=== PATIENT | female | born 1980 | race Caucasian/White ===

== ENCOUNTER 2020-09-03 19:04 | Emergency (ER) | payer OTHER, SELFPAY ==
[2020-09-03 20:08] LABS: Absolute Lymphocytes (CBC) 3.9 K/uL (0.7-4.9); Basophils % 0.5 % (0-1.3); Hematocrit 38.7 % (36.0-45.0); Lymphocytes % 34.5 % (15.3-44.8); MPV 7.5 fL (7.6-11.3); RBC Red Blood Cell Count 4.34 M/uL (3.86-4.86)
[2020-09-03 20:11] LABS: Protime INR 0.91
[2020-09-03 20:21] LABS: ALT/SGPT 24 U/L (12-78); AST/SGOT 18 U/L (15-37); Albumin 3.4 g/dL (3.4-5.0); Alkaline Phosphatase 79 U/L (45-117); BUN Blood Urea Nitrogen 4 mg/dL (7-18); Bicarbonate 26 mmol/L (21-32); Bilirubin Direct < 0.1 mg/dL (0-0.2); Bilirubin Total 0.2 mg/dL (0.2-1.0); Creatine Phosphokinase 85 U/L (26-192); Glucose Level 92 mg/dL (74-106); Lipase 112 U/L (73-393); Magnesium 2.2 mg/dL (1.8-2.4); Potassium 3.2 mmol/L (3.5-5.1); Protein, Total 6.6 g/dL (6.4-8.2); Sodium Level 139 mmol/L (136-145); Troponin (Emerg Dept Use Only) < 0.02 ng/mL (0.0-0.045)
[2020-09-03 21:23] LABS: Urine Blood 3+ (NEG); Urine Glucose NEGATIVE (NEG); Urine Protein NEGATIVE (NEG); Urine Specific Gravity 1.015 (1.005-1.030); Urine pH 7.5 (5.0-7.0)
[2020-09-03 21:31] LABS: Barbiturates NEGATIVE (NEGATIVE); Benzodiazepines NEGATIVE (NEGATIVE); Cocaine NEGATIVE (NEGATIVE); METHAMPHETAM NEGATIVE (NEGATIVE); Methadone NEGATIVE (NEGATIVE); Opiates NEGATIVE (NEGATIVE); Phencyclidine NEGATIVE (NEGATIVE); THC Cannibis NEGATIVE (NEGATIVE)
--- NOTE | 2020-09-03 21:33 | RAD REPORT ---
EXAM DESCRIPTION: CT - Head Brain Wo Cont - 09/03/2020 9:12 pm CLINICAL HISTORY: SYNCOPE Headache, drowsiness, syncope COMPARISON: HEAD BRAIN W O CONTRAST dated 08/11/2008 TECHNIQUE: All CT scans are performed using dose optimization technique as appropriate and may inclu de automated exposure control or mA/KV adjustment according to patient size. FINDINGS: No intracranial hemorrhage, hydrocephalus or extra-axial fluid collection.No areas of brai n edema or evidence of midline shift. The paranasal sinuses and mastoids are clear. The calvarium is intact. IMPRESSION: No acute intracranial abnormality.
[2020-09-03] MEDS ORDERED: POTASSIUM 25 MEQ EFFERV TAB ONE (21:47)
[2020-09-03] MEDS ORDERED: NA CHLORIDE 0.9% 1,000 ML ONE (21:47)
--- NOTE | 2020-09-03 21:55 | RAD REPORT ---
EXAM DESCRIPTION: RAD - Chest Single View - 09/03/2020 9:25 pm CLINICAL HISTORY: syncope Chest pain. COMPARISON: CHEST SINGLE VIEW dated 01/12/2014; ABDOMEN 1 VIEW KUB dated 01/28/2009 FINDINGS: Portable technique limits examination quality. The lungs are grossly clear. The heart is normal in size. No displaced fractures. IMPRESSION: No acute intrathoracic process suspected.
--- NOTE | 2020-09-03 23:36 | EDPHYS ---
Physician Documentation [facility] Name: Gabrielle Plata Age: 40 yrs Sex: Female : 1980 Arrival Date: 09/03/2020 Time: 19:24 Bed 18 Private MD: ED Physician Armond Boles HPI: 09/03 20:14 This 40 yrs old Female presents to ER via EMS with complaints of Syncope. mh7 20:15 The patient has experienced syncope, collapsed. Onset: The symptoms/episode mh7 began/occurred today. Duration: This was a single episode, that lasted an unknown period of time. Context: the episode(s) was witnessed, by no one, occurred on a street or driveway, occurred while the patient was standing, Just prior to the episode the patient experienced no apparent symptoms. Associated injury: The patient did not suffer any apparent associated injury. Associated signs and symptoms: Pertinent positives: nausea, vomiting, Pertinent negatives: abdominal pain, agitation, ataxia, blurred vision, chest pain, combativeness, confusion, diaphoresis, diarrhea, dizziness, headache, lightheadedness, numbness, palpitations, not seizure, shortness of breath, tingling, vertigo, weakness. Current symptoms: Currently, the patient is not experiencing any symptoms, the patient feels back to baseline. 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 - Social history:: Smoking status: Patient reports the use of cigarette tobacco products, denies chronic smoking, but will smoke occasionally. ROS: 20:15 Constitutional: Negative for fever, chills, and weight loss, Eyes: Negative for injury, mh7 pain, redness, and discharge, ENT: Negative for injury, pain, and discharge, Neck: Negative for injury, pain, and swelling, Cardiovascular: Negative for chest pain, palpitations, and edema, Respiratory: Negative for shortness of breath, cough, wheezing, and pleuritic chest pain, Back: Negative for injury and pain, : Negative for injury, bleeding, discharge, and swelling, MS/Extremity: Negative for injury and deformity, Skin: Negative for injury, rash, and discoloration, Psych: Negative for depression, anxiety, suicide ideation, homicidal ideation, and hallucinations, Allergy/Immunology: Negative for hives, rash, and allergies, Endocrine: Negative for neck swelling, polydipsia, polyuria, polyphagia, and marked weight changes, Hematologic/Lymphatic: Negative for swollen nodes, abnormal bleeding, and unusual bruising. Exam: 20:15 Constitutional: This is a well developed, well nourished patient who is awake, alert, mh7 and in no acute distress. Head/Face: Normocephalic, atraumatic. Eyes: Pupils equal round and reactive to light, extra-ocular motions intact. Lids and lashes normal. Conjunctiva and sclera are non-icteric and not injected. Cornea within normal limits. Periorbital areas with no swelling, redness, or edema. ENT: Nares patent. No nasal discharge, no septal abnormalities noted. Tympanic membranes are normal and external auditory canals are clear. Oropharynx with no redness, swelling, or masses, exudates, or evidence of obstruction, uvula midline. Mucous membranes moist. Neck: Trachea midline, no thyromegaly or masses palpated, and no cervical lymphadenopathy. Supple, full range of motion without nuchal rigidity, or vertebral point tenderness. No Meningismus. Chest/axilla: Normal chest wall appearance and motion. Nontender with no deformity. No lesions are appreciated. Cardiovascular: Regular rate and rhythm with a normal S1 and S2. No gallops, murmurs, or rubs. Normal PMI, no JVD. No pulse deficits. Respiratory: Lungs have equal breath sounds bilaterally, clear to auscultation and percussion. No rales, rhonchi or wheezes noted. No increased work of breathing, no retractions or nasal flaring. Abdomen/GI: Soft, non-tender, with normal bowel sounds. No distension or tympany. No guarding or rebound. No evidence of tenderness throughout. Back: No spinal tenderness. No costovertebral tenderness. Full range of motion. Skin: Warm, dry with normal turgor. Normal color with no rashes, no lesions, and no evidence of cellulitis. MS/ Extremity: Pulses equal, no cyanosis. Neurovascular intact. Full, normal range of motion. Neuro: Awake and alert, GCS 15, oriented to person, place, time, and situation. Cranial nerves II-XII grossly intact. Motor strength 5/5 in all extremities. Sensory grossly intact. Cerebellar exam normal. Normal gait. Psych: Awake, alert, with orientation to person, place and time. Behavior, mood, and affect are within normal limits. Vital Signs: 19:38 BP 129 / 111; Pulse 72; Resp 18; Pulse Ox 95% on R/A; ll2 19:40 Temp 98.3; ea 20:00 BP 139 / 121; Pulse 101; Resp 18; Pulse Ox 97% on R/A; ll2 20:59 BP 112 / 92; Pulse 83; Resp 18; Pulse Ox 98% on R/A; ll2 21:00 BP 116 / 99; Pulse 79; Resp 16; Pulse Ox 99% on R/A; ll2 22:00 BP 103 / 86; Pulse 81; Resp 17; Pulse Ox 100% on R/A; ll2 23:00 BP 100 / 67; Pulse 78; Resp 18; Pulse Ox 95% on R/A; ll2 MDM: 20:14 Patient medically screened. [facility] 23:33 Differential Diagnosis: cardiac arrhythmia, drug effect, emotional response, idiopathic mh7 syncope, , seizure, transient ischemic attack, vasovagal episode. Data reviewed: vital signs, nurses notes, EMS record, lab test result(s), cardiac enzymes, CBC, drug level(s), alcohol, electrolytes, urinalysis, urine drug screen, EKG, radiologic studies, CT scan, plain films. Data interpreted: Pulse oximetry: on room air is 95 %. Interpretation: normal. Counseling: I had a detailed discussion with the patient and/or guardian regarding: the historical points, exam findings, and any diagnostic results supporting the discharge/admit diagnosis, lab results, radiology results, the need for outpatient follow up, to return to the emergency department if symptoms worsen or persist or if there are any questions or concerns that arise at home. Response to treatment: the patient's symptoms have resolved after treatment, the patient's blood pressure is in an acceptable range, mental status has returned to baseline, the patient no longer shows bradycardia, the patient is not short of breath, the patient is not tachycardic, the patient's pain is gone, the patient's temperature has normalized. 09/03 19:44 Order name: Basic Metabolic Panel; Complete Time: 21:31 ea 09/03 19:44 Order name: CBC with Diff; Complete Time: 20:20 09/03 19:44 Order name: Ckmb; Complete Time: 21:31 09/03 19:44 Order name: CPK; Complete Time: 21:31 09/03 19:44 Order name: Hepatic Function; Complete Time: 21:31 09/03 19:44 Order name: Lipase; Complete Time: 21:31 09/03 19:44 Order name: Magnesium; Complete Time: 21:31 09/03 19:44 Order name: Protime (+inr); Complete Time: 20:20 09/03 19:44 Order name: Ptt, Activated; Complete Time: 20:20 09/03 19:44 Order name: Troponin (emerg Dept Use Only); Complete Time: 21:31 09/03 20:19 Order name: UDS; Complete Time: 21:33 [facility] 09/03 20:19 Order name: ETOH Level; Complete Time: 21:31 [facility] 09/03 21:13 Order name: Urine Dipstick--Ancillary (enter results) ri09/03 21:13 Order name: Urine --Ancillary (enter results) [facility] 09/03 19:44 Order name: EKG; Complete Time: 19:45 09/03 19:44 Order name: Cardiac monitoring; Complete Time: 19:44 09/03 19:44 Order name: EKG - Nurse/Tech; Complete Time: 19:44 09/03 19:44 Order name: IV Saline Lock; Complete Time: 19:44 09/03 19:44 Order name: Labs collected and sent; Complete Time: 19:44 09/03 19:44 Order name: NPO; Complete Time: 19:44 09/03 19:44 Order name: O2 Per Protocol; Complete Time: 19:44 09/03 19:44 Order name: O2 Sat Monitoring; Complete Time: 19:44 09/03 19:44 Order name: Urine Dipstick-Ancillary (obtain specimen); Complete Time: 21:10 09/03 20:12 Order name: Chest Single View XRAY; Complete Time: 22:05 [facility] 09/03 20:19 Order name: CT Head Brain wo Cont; Complete Time: 22:05 [facility] 09/03 20:20 Order name: Urine Test (obtain specimen); Complete Time: 21:10 [facility] 09/03 21:13 Order name: Urine Dipstick-Ancillary; Complete Time: : [facility] 09/03 21:13 Order name: Urine --Ancillary; Complete Time: : EDVT Administered Medications: 22:01 Drug: NS 0.9% 1000 ml Route: IV; Rate: 1000 ml; Site: right forearm; ll2 22:02 Drug: K-Lyte Effervescent Tablet 25 mEq Route: PO; ll2 23:33 Follow up: Response: No adverse reaction ll2 Point of Care Testing: Blood Glucose: 19:15 Blood Glucose: 111 mg/dL; ll2 Ranges: Critical Glucose Levels:Adult <50 mg/dl or >400 mg/dl <40 mg/dl or >180 mg/dl Disposition: 09/03/20 23:36 Discharged to Home. Impression: Syncope, Alcohol Intoxication. - Condition is Stable. - Discharge Instructions: Alcohol Intoxication, [id number], Syncope, [id number]. - Work release form, Medication Reconciliation Form, Thank You Letter, Antibiotic Education, Prescription Opioid Use form. - Follow up: Private Physician; When: 1 - 2 days; Reason: Worsening of condition, Recheck today's complaints, Continuance of care, Re-evaluation by your physician. - Problem is new. - Symptoms have improved. Signatures: Dispatcher [employer] [facility] Allison Cardozo RN RN ea Linscombe, Lacie, RN RN Armond Chacko MD MD 7 Corrections: (The following items were deleted from the chart) 23:45 19:38 Allergies: Demerol; ll2 ll2 23:45 19:38 Allergies: Sulfa (Sulfonamide Antibiotics); ll2 ll2 23:48 23:36 09/03/2020 23:36 Discharged to Home. Impression: Syncope; Alcohol Intoxication. ll2 Condition is Stable. Forms are Medication Reconciliation Form, Thank You Letter, Antibiotic Education, Prescription Opioid Use. Follow up: Private Physician; When: 1 - 2 days; Reason: Worsening of condition, Recheck today's complaints, Continuance of care, Re-evaluation by your physician. Problem is new. Symptoms have improved. [facility]
--- NOTE | 2020-09-03 23:36 | ER ---
Nurse's Notes [facility] Name: Gabrielle Plata Age: 40 yrs Sex: Female : 1980 Arrival Date: 09/03/2020 Time: 19:24 Bed 18 Private MD: Diagnosis: Syncope;Alcohol Intoxication Presentation: 09/03 19:39 Chief complaint: EMS states: found pt unconscious in [employer] parking lot, she was ll2 on her way to work at [employer], pt woken with sternal rub and responded to pain, pt was nauseated in field and vomited a few times in route to ED FSBS was 111, 4 of zofran was given in field. 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 Coronavirus screen: Client denies travel out of the [place] in the last 14 days. At this time, the client does not indicate any symptoms associated with coronavirus-19. Ebola Screen: Patient negative for fever greater than or equal to 101.5 degrees Fahrenheit, and additional compatible Ebola Virus Disease symptoms. Initial Sepsis Screen: Does the patient meet any 2 criteria? No. Patient's initial sepsis screen is negative. Does the patient have a suspected source of infection? No. Patient's initial sepsis screen is negative. Risk Assessment: Do you want to hurt yourself or someone else? Patient reports no desire to harm self or others. Onset of symptoms was September 03, 2020. 19:39 Acuity: CATHIE 3 ll2 19:39 Method Of Arrival: EMS: [facility] ll2 Triage Assessment: 23:32 General: Appears in no apparent distress. Behavior is calm, cooperative, appropriate ll2 for age. Pain: Denies pain. 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 - Social history:: Smoking status: Patient reports the use of cigarette tobacco products, denies chronic smoking, but will smoke occasionally. Screenin:38 Abuse screen: Denies threats or abuse. Nutritional screening: No deficits noted. ll2 Tuberculosis screening: No symptoms or risk factors identified. Fall Risk IV access (20 points). Ambulatory Aid- None/Bed Rest/Nurse Assist (0 pts). Gait- Normal/Bed Rest/Wheelchair (0 pts) Mental Status- Oriented to own ability (0 pts). Total Zuleta Fall Scale indicates Low Risk Score (25-44 pts). Assessment: 19:28 General: Appears in no apparent distress. Behavior is calm, cooperative, appropriate ll2 for age. Pain: Denies pain. Neuro: Level of Consciousness is awake, alert, obeys commands, Oriented to person, place, time, situation. Cardiovascular: Rhythm is sinus rhythm. Respiratory: Airway is patent Respiratory effort is even, unlabored, Respiratory pattern is regular, symmetrical. GI: No signs and/or symptoms were reported involving the gastrointestinal system. : No signs and/or symptoms were reported regarding the genitourinary system. EENT:. EENT: No signs and/or symptoms were reported regarding the EENT system. Derm: Skin is intact, is healthy with good turgor, Skin is dry, Skin is pink, warm \T\ dry. Skin temperature is warm. Musculoskeletal: Circulation, motion, and sensation intact. Range of motion: intact in all extremities. 19:30 Reassessment: EMS states, pt was found unconscious after a syncope episode in [place] [facility] parking lot while she was on her way to work. She was aroused with the sternal rub and responded to pain, FSBS 111 in field. Stated she was nauseated in field and vomited a few times in route. States pt does have unspecified cancer in the reproductive system. 20:56 Reassessment: Patient and/or family updated on plan of care and expected duration. Pain ea level reassessed. Patient is alert, oriented x 3, equal unlabored respirations, skin warm/dry/pink. 22:01 Reassessment: pt pulled IV out of RT AC, 22G reinserted to RT forearm. ll2 Vital Signs: 19:38 BP 129 / 111; Pulse 72; Resp 18; Pulse Ox 95% on R/A; ll2 19:40 Temp 98.3; ea 20:00 BP 139 / 121; Pulse 101; Resp 18; Pulse Ox 97% on R/A; ll2 20:59 BP 112 / 92; Pulse 83; Resp 18; Pulse Ox 98% on R/A; ll2 21:00 BP 116 / 99; Pulse 79; Resp 16; Pulse Ox 99% on R/A; ll2 22:00 BP 103 / 86; Pulse 81; Resp 17; Pulse Ox 100% on R/A; ll2 23:00 BP 100 / 67; Pulse 78; Resp 18; Pulse Ox 95% on R/A; ll2 ED Course: 19:24 Patient arrived in ED. antony 19:28 Dora Everett, RN is Primary Nurse. 2 19:29 Armond Boles MD is Attending Physician. 7 19:39 Patient has correct armband on for positive identification. Placed in gown. Bed in low ll2 position. Call light in reach. Side rails up X2. 19:42 Triage completed. ll2 20:56 Arm band placed on Patient placed in an exam room, on a stretcher, on recreational therapist, ea on pulse oximetry. 21:12 CT Head Brain wo Cont In Process Unspecified. EDMS 21:26 Chest Single View XRAY In Process Unspecified. EDMS 22:02 Urine --Ancillary (enter results) Sent. ll2 22:03 Urine Dipstick--Ancillary (enter results) Sent. ll2 23:44 No provider procedures requiring assistance completed. IV discontinued, intact, ll2 bleeding controlled, No redness/swelling at site. Pressure dressing applied. Administered Medications: 22:01 Drug: NS 0.9% 1000 ml Route: IV; Rate: 1000 ml; Site: right forearm; ll2 22:02 Drug: K-Lyte Effervescent Tablet 25 mEq Route: PO; ll2 23:33 Follow up: Response: No adverse reaction 2 Point of Care Testing: Blood Glucose: 19:15 Blood Glucose: 111 mg/dL; ll2 Ranges: Outcome: 23:36 Discharge ordered by . 7 23:45 Discharged to home ambulatory. ll2 23:45 Condition: stable 23:45 Discharge instructions given to patient, Instructed on discharge instructions, follow up and referral plans. Demonstrated understanding of instructions, follow-up care. 23:48 Patient left the ED. ll2 Signatures: Dispatcher [employer] EDMS Allison Cardozo RN RN ea Linscombe, Lacie, SITA BUCKENR 2 Armond Boles MD MD [facility] Corrections: (The following items were deleted from the chart) 19:33 19:30 Reassessment: EMS states, pt was found unconscious after a sycope episode in [facility] [place] parking lot while she was on her way to work. She was aroused with the sternal rub and responded to pain, FSBS [facility] 19:38 Allergies: Demerol; [place] [id number] 19:38 Allergies: Sulfa (Sulfonamide Antibiotics); [place] [phone]
[2020-09-04 00:38] VITALS: TEMP 98.3
[2020-09-04 00:45] VITALS: BP 100/67; O2SAT 95
--- OUTSIDE RECORDS SUMMARY | 2020-09-07 23:34 | XMS REPORT | Summary of Care ---
:1980 Author Organization [facility] Address [address] [place], [place] [address] Care Team Providers Name Role Phone Anish Ureña MD Primary Care Provider Reason for Visit Reason Comments Results Encounter Details Date Type Department Care Team Description 06/14/2020 Telephone ACCESS [facility]ENTER Kaylah Shi RN Results [address] [phone] [place] [id number] Allergies Active Allergy Reactions Severity Noted Date Comments Codeine Shortness of Breath 09/25/2016 Meperidine Hcl Rash 09/25/2016 Marijuana/Cannabinoid Anaphylaxis High 01/06/2018 Sulfa (Sulfonamide Antibiotics) Rash High 7 Tramadol Nausea and/or Vomiting 09/25/2016 documented as of this encounter (statuses as of 06/14/2020) Medications No known medicationsdocumented as of this encounter (statuses as of 06/14/2020) Active Problems Problem Noted Date Anxiety 04/07/2020 Chest pain 03/22/2020 Crohn disease 12/02/2007 Overview: involving small and large intesting, bio psy confirmed. Gets colonoscopy Q 6-12 months. no flares since 2014, off meds History of recurrent miscarriages Overview: 10 spontaneous abortions prior to 10 wee ks, D&C in 2005 documented as of this encounter (statuses as of 06/14/2020) Resolved Problems Problem Noted Date Resolved Date Encounter for tubal ligation 01/06/2018 01/06/2018 Premature rupture of membranes 09/24/2017 8 Premature labor 09/24/2017 04/07/2020 Liveborn by vaginal delivery 09/24/201704/2018 36 weeks gestation of 09/23/2017 01/06/20 18 Crohn's disease without complication 09/16/2017 34 weeks gestation of 09/14/2017 04/07/20 20 labor 09/14/2017 04/07/2020 Hematuria 08/01/2017 01/06/2018 History of renal calculi 08/01/2017 01/06/2018 Anemia affecting 08/01/2017 01/06/2018 27 weeks gestation of 07/31/2017 01/06/20 18 Pyelonephritis affecting in second trimester 07/3101/06/2018 Pyelonephritis complicating , antepartum 07/31/2017 07/31/2017 uterine contractions in second trimester, antepartum 07/31/2017 01/06/2018 Vomiting 09/25/2016 07/31/2017 Colitis 09/25/2016 07/31/2017 documented as of this encounter (statuses as of 06/14/2020) Immunizations Name Administration Dates Next Due Influenza Virus Vaccine Quad IM 3+ YRS 09/26/2017 documented as of this encounter Social History Tobacco Use Types Packs/Day Years Used Date Current Some Day Smoker Cigarettes Smokeless Tobacco: Never Used Comments: Occasional Smoker Alcohol Use Drinks/Week oz/Week Comments Yes Social Drinker Sex Assigned at Date Recorded Not on file Job Start Date Occupation Industry Not on file Not on file Not on file Travel History Travel Start Travel End No recent travel history available. COVID-19 Exposure Response Date Recorded In the last month, have you been in contact with No / Unsure 06/11/2020 10:08 PM CDT someone who was confirmed or suspected to have Coronavirus / COVID-19? documented as of this encounter Last Filed Vital Signs Not on filedocumented in this encounter Plan of Treatment Health Maintenance Due Date Last Done Comments PNEUMOCOCCAL 0-64 YEARS COMBINED SERIES (1 of 1 - 1984 PPSV23) DTaP,Tdap,and Td Vaccines (1 - Tdap) 1989 Depression Screening 1990 PAP SMEAR 1999 Breast Cancer Screening (MAMMOGRAM) 2018 INFLUENZA VACCINE (#1) 2020 09/26/2017 documented as of this encounter Implants Implanted Type Area Physical Therapy Professor Device Shelf Model / Identifier Expiration Serial / Date Lot Fallope Ring Band, Gyrus #[id number] - Sfrb-30 Band N/A: Fallopian Gyrus 09/16/2019 FRB-30 / Implanted: Qty: 1 on 01/06/2018 by Kalen Gutierrez MD at [facility] tube F RB-30 / [id number] documented as of this encounter Results Not on filedocumented in this encounter Additional Health Concerns Infection Onset Date Last Indicated Resolved Time COVID-19 Rule Out 06/12/2020 06/12/2020 06/14/2020 12: 08 AM CDT documented as of this encounter
--- OUTSIDE RECORDS SUMMARY | 2020-09-07 23:34 | XMS REPORT | Summary of Care ---
:1980 Author Organization [facility] - [facility] Address [address] [place] [address] Care Team Providers Name Role Phone Anish Ureña MD Primary Care Provider Reason for Referral Radiology Services (STAT) Status Reason Specialty Diagnoses / Referred By Referred To Procedures Contact Contact New Request Diagnostic Diagnoses Chest pain, unspecified type Andrew Limon, Radiology Procedures XR CHEST 1 VW [employer] [address] [phone] Reason for Visit Reason Comments Chest Pain Auth/Cert Status Reason Specialty Diagnoses / Referred By Referred To Procedures Contact Contact Emergency Medicine [facility] Dept [address] [address] Fax: Encounter Details Date Type Department Care Team Description 06/12/2020 Emergency [facility]-Emergency Andrew Limon, [employer]PER Chest pain, Department [address] [facility] unspecified type [address] [place], [place] (Primary Dx) [address] [id number] [place] [id number] Allergies Active Allergy Reactions Severity Noted Date Comments Codeine Shortness of Breath 09/25/2016 Meperidine Hcl Rash 09/25/2016 Marijuana/Cannabinoid Anaphylaxis High 01/06/2018 Sulfa (Sulfonamide Antibiotics) Rash High 7 Tramadol Nausea and/or Vomiting 09/25/2016 documented as of this encounter (statuses as of 06/12/2020) Medications No known medicationsdocumented as of this encounter (statuses as of 06/12/2020) Active Problems Problem Noted Date Anxiety 04/07/2020 Chest pain 03/22/2020 Crohn disease 12/02/2007 Overview: involving small and large intesting, bio psy confirmed. Gets colonoscopy Q 6-12 months. no flares since 2014, off meds History of recurrent miscarriages Overview: 10 spontaneous abortions prior to 10 wee ks, D&C in 2005 documented as of this encounter (statuses as of 06/12/2020) Resolved Problems Problem Noted Date Resolved Date [...] as of this encounter (statuses as of 06/12/2020) Immunizations Name Administration Dates Next Due Influenza [...] filedocumented in this encounter Plan of Treatment Name Type Priority Associated Diagnoses Order S chedule CBC WITH DIFF LAB Routine Chest pain, ONCE for 1 unspecified type Occurrences starting 06/12/2020 unti l 06/12/2020 COMP. METABOLIC PANEL LAB Routine Chest pain, ONCE f or 1 (25975) unspecified type Occurrences starting 06/12/2020 unti l 06/12/2020 EKG-12 LEAD ROUTINE HEART STATION MATTHEW ONCE fo r 1 Occurrences sta rting 06/12/2020 unti l 06/12/2020 MAGNESIUM LAB Routine Chest pain, ONCE for 1 unspecified type Occurrences starting 06/12/2020 unti l 06/12/2020 POCT TEST LAB MATTHEW Chest pain, ONCE for 1 unspecified type Occurrences starting 06/12/2020 unti l 06/12/2020 TEST, SERUM LAB Routine Chest pain, ONCE f or 1 unspecified type Occurrences starting 06/12/2020 unti l 06/12/2020 TROPONIN I LAB Routine Chest pain, ONCE for 1 unspecified type Occurrences starting 06/12/2020 unti l 06/12/2020 CORONAVIRUS COVID-19 LAB STAT Chest pain, STAT fo r 1 TESTING unspecified type Occurrences starting 06/12/2020 unti l 06/12/2020 CBC WITH DIFFERENTIAL LAB Routine Chest pain, Once f or 1 unspecified type Occurrences starting 06/12/2020 unti l 06/12/2020 ADC / [facility] - DRUG LAB Routine Chest pain, ONCE for 1 SCREEN TRIAGE unspecified type Occurrence s starting 06/12/2020 unti l 06/12/2020 Health Maintenance Due Date Last Done Comments PNEUMOCOCCAL 0-64 YEARS COMBINED SERIES (1 of - 1984 PPSV23) DTaP,Tdap,and Td Vaccines (1 - Tdap) 1989 Depression Screening 1990 PAP SMEAR 1999 Breast Cancer Screening (MAMMOGRAM) 2018 INFLUENZA VACCINE (#1) 2020 09/26/2017 documented as of this encounter Implants Implanted Type Area Maintenance Repairer Device Shelf Model / Identifier Expiration Serial / Date Lot Fallope Ring Band, Gyrus #Frb-30 - Sfrb-30 Band N/A: Fallopian Gyrus 09/16/2019 FRB-30 / Implanted: Qty: 1 on 01/06/2018 by Kalen Gutierrez MD at [facility] tube F RB-30 / [id number] documented as of this encounter Procedures Procedure Name Priority Date/Time Associated Diagnosis Comme nts XR CHEST 1 VW STAT 06/12/2020 4:33 PM Chest pain, Results for this CDT unspecified type procedure a re in the results section. NOTICE OF PRIVACY Routine 06/12/2020 3:57 PM PRACTICES CDT CONSENT/REFUSAL FOR Routine 06/12/2020 3:53 PM DIAGNOSIS AND CDT TREATMENT documented in this encounter Results XR CHEST 1 VW (06/12/2020 4:33 PM CDT) Specimen Impressions Performed At PACS/VR/DOSE No acute cardiopulmonary process. Preliminary Report Dictated by Resident: Red Abdul MD., have review ed this study and agree with the above report. Narrative Performed At PROCEDURE: XR CHEST 1 VW PACS/VR/DOSE CLINICAL INDICATION: chest pain TECHNIQUE: AP views of the chest. COMPARISON: None FINDINGS: The lungs are clear without consolidatio n. No pleural effusion or pneumothorax is seen. The heart is normal in size. No acute bony abnormality is noted. Chol ecystectomy clips. Procedure Note [facility], Radiant Results Inft User - 2019 5:09 PM CDT PROCEDURE: XR CHEST 1 VW CLINICAL INDICATION: chest pain TECHNIQUE: AP views of the chest. COMPARISON: None FINDINGS: The lungs are clear without consolidatio n. No pleural effusion or pneumothorax is seen. The heart is normal in size. No acute bony abnormality is noted. Chol ecystectomy clips. IMPRESSION No acute cardiopulmonary process. Preliminary Report Dictated by Resident: Red Abdul MD., have reviewe d this study and agree with the above report. Performing Organization Address City/State/Zipcode Phone Number PACS/VR/DOSE documented in this encounter Visit Diagnoses Diagnosis Chest pain, unspecified type - Primary documented in this encounter Additional Health Concerns Infection Onset Date Last Indicated Resolved Time COVID-19 Rule Out 06/12/2020 06/12/2020 documented as of this encounter
--- OUTSIDE RECORDS SUMMARY | 2020-09-07 23:34 | XMS REPORT | Summary of Care ---
:1980 Author Organization [facility] - [facility] Address [address] [place] [address] Care Team Providers Name Role Phone Anish Ureña MD Primary Care Provider Reason for Visit Auth/Cert Status Reason Specialty Diagnoses / Referred By Referred To Procedures Contact Contact Emergency Medicine Diagnoses ANXIETY [facility] Emergency Dept [address] [place] [address] Fax: Encounter Details Date Type Department Care Team Description 06/11/2020 Emergency [facility]gency Dhruv Briggs DO Anxiety (Primary Dx) Department [address] [place] [address]. [address] [facility] [address] [place], [place] [id number] [place] [id number] Allergies Active Allergy Reactions Severity Noted Date Comments Codeine Shortness of Breath 09/25/2016 Meperidine Hcl Rash 09/25/2016 Marijuana/Cannabinoid Anaphylaxis High 01/06/2018 Sulfa (Sulfonamide Antibiotics) Rash High 7 Tramadol Nausea and/or Vomiting 09/25/2016 documented as of this encounter (statuses as of 06/11/2020) Medications No known medicationsdocumented as of this encounter (statuses as of 06/11/2020) Active Problems Problem Noted Date Anxiety 04/07/2020 Chest pain 03/22/2020 Crohn disease 12/02/2007 Overview: involving small and large intesting, bio psy confirmed. Gets colonoscopy Q 6-12 months. no flares since 2014, off meds History of recurrent miscarriages Overview: 10 spontaneous abortions prior to 10 wee ks, D&C in 2006 documented as of this encounter (statuses as of 06/11/2020) Resolved Problems Problem Noted Date Resolved Date Encounter for tubal ligation 01/06/2018 01/06/2018 Premature rupture of membranes 09/24/2017 8 Premature labor 09/24/2017 04/07/2020 Liveborn infant by vaginal delivery 09/24/201704/2018 36 weeks gestation [...] as of this encounter (statuses as of 06/11/2020) Immunizations Name Administration Dates Next Due Influenza [...] of this encounter Last Filed Vital Signs Vital Sign Reading Time Taken Comments Blood Pressure 141/105 06/11/2020 9:50 PM CDT Pulse 108 06/11/2020 9:50 PM CDT Temperature 36.9 C (98.4 F) 06/11/2020 9:50 PM CDT Respiratory Rate 24 06/11/2020 9:50 PM CDT Oxygen Saturation 98% 06/11/2020 9:50 PM CDT Inhaled Oxygen Concentration - - Weight 50.8 kg (112 lb) 06/11/2020 9:50 PM CDT Height - - Body Mass Index 17.03 03/22/2020 4:15 AM CDT documented in this encounter Plan of Treatment Health Maintenance Due Date Last Done Comments PNEUMOCOCCAL 0-64 YEARS COMBINED SERIES (1 of 1 - 1984 PPSV23) DTaP,Tdap,and Td Vaccines (1 - Tdap) 1989 Depression Screening 1990 PAP SMEAR 1999 Breast Cancer Screening (MAMMOGRAM) 2018 INFLUENZA VACCINE (#1) 2020 09/26/2017 documented as of this encounter Implants Implanted Type Area Senior Game Developer Device Shelf Model / Identifier Expiration Serial / Date Lot Fallope Ring Band, Gyrus #Frb-30 - Sfrb-30 Band N/A: Fallopian Gyrus 09/16/2019 FRB-30 / Implanted: Qty: 1 on 01/06/2018 by Kalen Gutierrez MD at [facility] tube F RB-30 / [id number] documented as of this encounter Results Not on filedocumented in this encounter Visit Diagnoses Diagnosis Anxiety - Primary Anxiety state, unspecified documented in this encounter
--- OUTSIDE RECORDS SUMMARY | 2020-09-07 23:34 | XMS REPORT | Continuity of Care Document ---
:1980 Author Organization [facility] t Address [address] [place] [address] Care Team Providers Name Role Phone Copeland Itzel LEZAMA Attending Clinician Payers Payer Name Policy Type Policy Number Effective Date Expiration Date S ource Problems This patient has no known problems. Allergies, Adverse Reactions, Alerts Allergy Allergy Status Severity Reaction(s) Onset Inactive Treating Comm ents Source Name Type Date Date Clinician meperidi DA Active [place] 2020-0 [facility] ne HCl 3-18 [facility] 00:00: Regiona 00 l [facility] Sulfa DA Active MO 2019-0 [facility] (Sulfona 3-18 Swain mide 00:00: Region Antibiot 00 l ics) [facility] codeine DA Active MO 2020-0 [facility] 3-18 Swain 00:00: Regiona 00 l [facility] meperidi DA Active [place] 2010- [facility] ne HCl 8-26 [facility] Sulfa DA Active [facility] (Sulfona 8-26 Swain mide 00:00: [facility]a Antibiot 00 l ics) [facility] codeine DA Active [facility] 8-26 [facility] Medications This patient has no known medications. Procedures This patient has no known procedures. Encounters Start End Encounter Admission Attending Care Care Encounter Source Date/Time Date/Time Type Type Clinicians Facility Department ID 2020-08-17 2020-08-17 [facility] [id number] 06:29:56 23:59:00 Encounter Dalia Robbins SPECIALTY [id number] [facility] [id number] CENTER AT [id number] [facility] 2020-08-10 2020-08-10 [facility] [id number] 00:00:00 00:00:00 Dalia Robbins TIRE SETTER [id number] [facility] [id number] MATERNAL [id number] & CHILD [address] [place] [address] 2020-04-04 2020-04-04 Emergency E MHBL MHBL [id number] MHBL 16:52:00 16:52:00 2019-08-07 2019-08-07 Emergency E MHCY MHCY 7503 MHCY 13:27:00 13:27:00 2019-04-08 2019-04-08 Emergency E MHCY MHCY 7502 MHCY 14:22:00 14:22:00 2019-03-31 2019-03-31 Emergency E MHCY MHCY 7501 MHCY 14:37:00 14:37:00 Results Test Description Test Time Test Comments Results Result Comments Source BASIC METABOLIC PANEL 2020-02-17 17:09:00 Test Item Value Reference Range Interpretation Comme nts SODIUM (test code = NA) 135.0 mmol/L 133-144 N POTASSIUM (test code = K) 3.6 mmol/L 3.5-5.1 N CHLORIDE (test code = CL) 104 mmol/L 95-105 N CARBON DIOXIDE (test code 23 mmol/L 21-32 N = CO2) ANION GAP (test code = 8.0 GAP calc 4.0-15.0 N GAP) GLUCOSE (test code = GLU) 109 MG/DL 70-110 N BLOOD UREA NITROGEN (test 9 MG/DL 7-18 N code = BUN) CREATININE (test code = 0.82 MG/DL 0.55-1.30 N Resu lts may be depressed CREAT) if patient is takingN-Acetylc ysteine (NAC) and Metam izole (Dipyrone). CALCIUM (test code = CA) 7.9 MG/DL 8.5-10.1 L INDEX HEMOLYSIS (test code 1 NORMAL <10 MG 1 NORMAL = HEMINDEX) Index/DL INDEX ICTERIC (test code = 1 NORMAL <2 MG 1 NORMAL ICTINDEX) Index/DL INDEX LIPEMIA (test code = 1 NORMAL <50 MG 1 NORMAL LIPINDEX) Index/DL Specimen comments: ccSpecimen comments: SEPSIS WORKUPHEPATIC FUNCTION PANEL 2020-02-17 17:09:00 Test Item Value Reference Range Interpretation Comments TOTAL PROTEIN (test code = PROT) 7.4 G/DL 6.4-8.2 N ALBUMIN (test code = ALB) 3.5 G/DL 3.4-5.0 N BILIRUBIN TOTAL (test code = BILT) 0.35 MG/DL 0.00-1.00 N BILIRUBIN DIRECT (test code = 0.14 MG/DL 0.00-0.30 N BILD) BILIRUBIN INDIRECT (test code = 0.21 MG/DL 0.2-1.3 N BILIND) SGOT/AST (test code = AST) 28 Unit/L 15-37 N SGPT/ALT (test code = ALT) 28 Unit/L 12-78 N ALKALINE PHOSPHATASE TOTAL (test 85 Unit/L 45-117 N code = ALKP) Specimen comments: ccSpecimen comments: SEPSIS [id number] 17:09:00 Test Item Value Reference Range Interpretation Comments LIPASE (test code = LIP) 318 Unit/L 114-286 H Specimen comments: ccSpecimen comments: SEPSIS [id number] 17:09:00 Test Item Value Reference Range Interpretation Comments TROPONIN-I < 0.015 NG/ML 0.000-0.045 N INTERPRET WITH CAUTION, THIS (test code = VALUE EXCEEDS T HE LOWER TROPI) LIMITOF LINEARI TY VERIFICATION ES TABLISHED BY THE LABORATORY. An elevated troponin value alone is not sufficient todi agnose a myocardial infa rction. Rather, the patient'sclinic al presentation (h istory, physical exam) and ECGshould be used in conj unction with troponin in the diagnostic evaluation of s uspected myocardial infa rction. Aserial samplin g protocol is recommended to facilitate theidentificati on of temporal change s in troponin levelscharacter istic of ID. Specimen comments: ccSpecimen comments: SEPSIS WORKUPPROCALCITONIN (PCT) 2020-02-17 17:09:00 Test Item Value Reference Range Interpretation Comments PROCALCITONIN (PCT) 0.16 NG/ML 0.00-0.10 H PROCALCI TONIN (PCT) (test code = PROCAL) NORMAL RANGE (ADULT) <0.05 NG/ML-nor mal <0.50 NG/ML-low risk of severe sepsis a nd/or septic shock >2 .00 NG/ML-high risk of severe sepsis a nd/or septic shcock Concentrations of <0.5 ng/mL do not ex clude an infection.Local ized infections (wit hout systemic signs) or a systemicinfecti on in its initial sta ges (<6 hours) can be associatedwith such low concentrations. It is recommended to retestPCT withi n 6-24 hours if concen trations <2 NG/ML. Specimen comments: ccSpecimen comments: SEPSIS WORKUPBASIC METABOLIC PANEL 2020-02-17 17:03:00 Test Item Value Reference Range Interpretation Comments SODIUM (test code = 135.0 mmol/L 133-144 N NA) POTASSIUM (test code 3.6 mmol/L 3.5-5.1 N = K) CHLORIDE (test code 104 mmol/L 95-105 N = CL) CARBON DIOXIDE (test 23 mmol/L 21-32 N code = CO2) ANION GAP (test code 8.0 GAP calc 4.0-15.0 N = GAP) GLUCOSE (test code = 109 MG/DL 70-110 N GLU) BLOOD UREA NITROGEN 9 MG/DL 7-18 N (test code = BUN) CREATININE (test 0.82 MG/DL 0.55-1.30 N Results may be code = CREAT) depressed if patient is takingN-Acetylc yste ine (NAC) and Metamizole (Dipyrone). CALCIUM (test code = 7.9 MG/DL 8.5-10.1 L CA) INDEX HEMOLYSIS 1 NORMAL <10 MG 1 NORMAL (test code = Index/DL HEMINDEX) INDEX ICTERIC (test 1 NORMAL <2 MG 1 NORMAL code = ICTINDEX) Index/DL INDEX LIPEMIA (test 1 NORMAL <50 MG 1 NORMAL code = LIPINDEX) Index/DL Specimen comments: ccSpecimen comments: SEPSIS WORKUPHEPATIC FUNCTION PANEL 2020-02-17 17:03:00 Test Item Value Reference Range Interpretation Comments TOTAL PROTEIN (test code = PROT) 7.4 G/DL 6.4-8.2 N ALBUMIN (test code = ALB) 3.5 G/DL 3.4-5.0 N BILIRUBIN TOTAL (test code = BILT) 0.35 MG/DL 0.00-1.00 N BILIRUBIN DIRECT (test code = 0.14 MG/DL 0.00-0.30 N BILD) BILIRUBIN INDIRECT (test code = 0.21 MG/DL 0.2-1.3 N BILIND) SGOT/AST (test code = AST) 28 Unit/L 15-37 N SGPT/ALT (test code = ALT) 28 Unit/L 12-78 N ALKALINE PHOSPHATASE TOTAL (test 85 Unit/L 45-117 N code = ALKP) Specimen comments: ccSpecimen comments: SEPSIS [id number] 17:03:00 Test Item Value Reference Range Interpretation Comments LIPASE (test code = LIP) 318 Unit/L 114-286 H Specimen comments: ccSpecimen comments: SEPSIS [id number] 17:03:00 Test Item Value Reference Range Interpretation Comments TROPONIN-I < 0.015 NG/ML 0.000-0.045 N INTERPRET WITH CAUTION, THIS (test code = VALUE EXCEEDS T HE LOWER TROPI) LIMITOF LINEARI TY VERIFICATION ES TABLISHED BY THE LABORATORY. An elevated troponin value alone is not sufficient todi agnose a myocardial infa rction. Rather, the patient'sclinic al presentation (h istory, physical exam) and ECGshould be used in conj unction with troponin in the diagnostic evaluation of s uspected myocardial infa rction. Aserial samplin g protocol is recommended to facilitate theidentificati on of temporal change s in troponin levelscharacter istic of ID. Specimen comments: ccSpecimen comments: SEPSIS WORKUPPROCALCITONIN (PCT) 2020-02-17 17:03:00 Test Item Value Reference Range Interpretation Comments PROCALCITONIN (PCT) (test code = NG/ML 0.00-0.10 PROCAL) Specimen comments: ccSpecimen comments: SEPSIS WORKUPLACTIC [id number] 17:01:00 Test Item Value Reference Range Interpretation Comments LACTIC ACID (test code = LACT) 1.4 mmol/L 0.4-2.0 N Specimen comments: ccBASIC METABOLIC [id number] 16:58:00 Test Item Value Reference Range Interpretation Comments SODIUM (test code = 135.0 mmol/L 133-144 N NA) POTASSIUM (test code 3.6 mmol/L 3.5-5.1 N = K) CHLORIDE (test code 104 mmol/L 95-105 N = CL) CARBON DIOXIDE (test 23 mmol/L 21-32 N code = CO2) ANION GAP (test code 8.0 GAP calc 4.0-15.0 N = GAP) GLUCOSE (test code = 109 MG/DL 70-110 N GLU) BLOOD UREA NITROGEN 9 MG/DL 7-18 N (test code = BUN) CREATININE (test 0.82 MG/DL 0.55-1.30 N Results may be code = CREAT) depressed if patient is takingN-Acetylc yste ine (NAC) and Metamizole (Dipyrone). CALCIUM (test code = 7.9 MG/DL 8.5-10.1 L CA) INDEX HEMOLYSIS 1 NORMAL <10 MG 1 NORMAL (test code = Index/DL HEMINDEX) INDEX ICTERIC (test 1 NORMAL <2 MG 1 NORMAL code = ICTINDEX) Index/DL INDEX LIPEMIA (test 1 NORMAL <50 MG 1 NORMAL code = LIPINDEX) Index/DL Specimen comments: ccSpecimen comments: SEPSIS WORKUPHEPATIC FUNCTION PANEL 2020-02-17 16:58:00 Test Item Value Reference Range Interpretation Comments TOTAL PROTEIN (test code = PROT) G/DL 6.4-8.2 ALBUMIN (test code = ALB) 3.5 G/DL 3.4-5.0 N BILIRUBIN TOTAL (test code = BILT) MG/DL 0.00-1.00 BILIRUBIN DIRECT (test code = 0.14 MG/DL 0.00-0.30 N BILD) BILIRUBIN INDIRECT (test code = MG/DL 0.2-1.3 BILIND) SGOT/AST (test code = AST) 28 Unit/L 15-37 N SGPT/ALT (test code = ALT) 28 Unit/L 12-78 N ALKALINE PHOSPHATASE TOTAL (test Unit/L 45-117 code = ALKP) Specimen comments: ccSpecimen comments: SEPSIS [id number] 16:58:00 Test Item Value Reference Range Interpretation Comments LIPASE (test code = LIP) 318 Unit/L 114-286 H Specimen comments: ccSpecimen comments: SEPSIS [id number] 16:58:00 Test Item Value Reference Range Interpretation Comments TROPONIN-I (test code = TROPI) NG/ML 0.000-0.045 Specimen comments: ccSpecimen comments: SEPSIS WORKUPPROCALCITONIN (PCT) 2020-02-17 16:58:00 Test Item Value Reference Range Interpretation Comments PROCALCITONIN (PCT) (test code = NG/ML 0.00-0.10 PROCAL) Specimen comments: ccSpecimen comments: SEPSIS WORKUPAG STREP GROUP A (THROAT) 2020-02-17 16:56:00 Test Item Value Reference Range Interpretation Comments AG STREP GROUP A NEG SCREEN NEG STREP A NTIGEN (THROAT) (test SCREENING:Ant igen code = STREPA) screening orquidea t; suggest confirmation by culture.INTERPR ETATION OF STREP ANTIGEN R ESULTS:WHEN STREP GROUP A A NTIGEN IS NOT DETECTED, T HE NEGATIVERESULT DOES NOT RULE OUT THE AR ESENCE OF STREP GROUP A.W HEN STREP GROUP A ANTIGEN IS DETECTED, THE P OSITIVE RESULTIS SIGNIF ICANT. NEGATIVE RESULT S REFLEX A CULTURE. FORNE GATIVE RESULTS A CULTU RE IS IN PROGRESS, RESUL T TO FOLLOW. HCG SERUM [id number] 16:55:00 Test Item Value Reference Range Interpretation Comments HCG SERUM QUAL (test code = HCGQL) NEG SCREEN NEG Specimen comments: SEPSIS WORKUP- XR CHEST 2 [id number] 16:55:00 FAX: Julia Sanz [phone] [place]: E St: PRE Patient Name: JAIDEN ALVARADO Unit No: [id number] EXAMS: CPT CODE: [id number] XR CHEST 2 V [id number] PA and lateral views of the chest Clinical indication: Cough and fevers Location R 16 COMPARIS ON: None The lungs are clear. The heart, mediastinum and bony structures are unremarkable. Bilateral breast implants are in place. Impression: Normal at 1655 Reported and signed by: Apolonia Colon MD CC: Julia CARDENAS Dictated Date/Time: 02/17/2020 (1654)Technologist: Meek Moss Transcribed Date/Time: 02/17/2020 (1654) By: [email or web address] Orig Print D/T: S: 02/17/2020 (1657) KILLIAN Crawford NAME: JAIDEN ALVARADO [address] [place] [address] PHYS: TERESA.Brian Julia [place], [place] [address] : 1980 AGE: 39 SEX: F LOC: B.ERS PHONE #: [phone] EXAM DATE: 02/17/2020 STATUS: PRE ER FAX #: [phone] RAD NO: DC Dt: PAGE 1 Signed ReportUA RFLX MICR CULT IF [id number] 16:51:00 Test Item Value Reference Range Interpretation Comments UA COLOR (test code = YELLOW DESCRIPT YELLOW COLU) UA APPEARANCE (test code HAZY DESCRIPT CLEAR = APPU) UA GLUCOSE DIPSTICK (test NEGATIVE (0) mg/dL (NEG) 0 code = DGLUU) UA BILIRUBIN DIPSTICK NEGATIVE (0.0) mg/dL (NEG) 0 (test code = BILU) UA KETONE DIPSTICK (test 0 (NEG) mg/dL (NEG) 0 code = KETU) UA SPECIFIC GRAVITY (test 1.009 SG 1.001-1.035 code = SGU) UA BLOOD DIPSTICK (test NEGATIVE (0.00) (NEG) 0 code = SARAH) mg/dL UA PH DIPSTICK (test code 6.0 pH UNITS 4.6-8.0 = BALA) UA PROTEIN DIPSTICK (test NEGATIVE (0) mg/dL <30 (1+) code = PROU) UA UROBILINIOGEN DIPSTICK 2 (1+) mg/dL <2.0 (1+) A (test code = URO) UA NITRITE DIPSTICK (test NEGATIVE (0) SCREEN NEG code = RODO) UA LEUKOCYTE ESTERASE NEGATIVE (0) (NEG) 0 DIPSTICK (test code = Leuk/mcL LEUU) UA COMMENT (test code = CLEAN CATCH SPEC SpecComment COMU) Notes UA WBC (test code = WBCU) 0-3 #WBC/HPF 0-3 UA RBC (test code = RBCU) 0-3 #RBC/HPF 0-3 UA BACTERIA (test code = TRACE >0 /HPF NONE-FEW BACU) UA SQUAMOUS CELLS (test MODERATE >10 /HPF NONE-SQepi code = SQU) UA AMORPHOUS SEDIMENT FEW >275 #/mcL NONE-FEW (test code = AMORU) UA CULTURE NEEDED? (test Crit NOTmet CULT-N/A Cult byWBC code = UACULT) Criteria Specimen comments: ccIndication for culture: Sev. Sepsis-no other srcUA RFLX MICR CULT IF [id number] 16:47:00 Test Item Value Reference Range Interpretation Comments UA COLOR (test code = YELLOW DESCRIPT YELLOW COLU) UA APPEARANCE (test code HAZY DESCRIPT CLEAR = APPU) UA GLUCOSE DIPSTICK (test NEGATIVE (0) mg/dL (NEG) 0 code = DGLUU) UA BILIRUBIN DIPSTICK NEGATIVE (0.0) mg/dL (NEG) 0 (test code = BILU) UA KETONE DIPSTICK (test 0 (NEG) mg/dL (NEG) 0 code = KETU) UA SPECIFIC GRAVITY (test 1.009 SG 1.001-1.035 code = SGU) UA BLOOD DIPSTICK (test NEGATIVE (0.00) (NEG) 0 code = SARAH) mg/dL UA PH DIPSTICK (test code 6.0 pH UNITS 4.6-8.0 = BALA) UA PROTEIN DIPSTICK (test NEGATIVE (0) mg/dL <30 (1+) code = PROU) UA UROBILINIOGEN DIPSTICK 2 (1+) mg/dL <2.0 (1+) A (test code = URO) UA NITRITE DIPSTICK (test NEGATIVE (0) SCREEN NEG code = RODO) UA LEUKOCYTE ESTERASE NEGATIVE (0) (NEG) 0 DIPSTICK (test code = Leuk/mcL LEUU) UA RBC (test code = RBCU) #RBC/HPF 0-3 Specimen comments: ccIndication for culture: Sev. Sepsis-no other srcCBC W/AUTO [id number] 16:45:00 Test Item Value Reference Range Interpretation Comments WHITE BLOOD CELL (test code = 6.0 K/mm3 4.1-12.1 N WBC) RED BLOOD CELL (test code = RBC) 4.73 M/mm3 3.8-5.5 N HEMOGLOBIN (test code = HGB) 15.3 G/DL 10.6-15.8 N HEMATOCRIT (test code = HCT) 43.3 % 31.8-47.4 N MEAN CELL VOLUME (test code = 91.5 fL 80.1-101.1 N MCV) MEAN CELL HGB (test code = MCH) 32.3 pg 25.3-35.3 N MEAN CELL HGB CONCETRATION (test 35.3 G/DL 32.7-35.1 H code = MCHC) RED CELL DISTRIBUTION WIDTH 12.3 % 12.2-16.4 N (test code = RDW) RED CELL DISTRIBUTION WIDTH 41.1 fL 36.4-46.3 N (test code = RDW-SD) PLATELET COUNT (test code = PLT) 244 K/mm3 155-337 N MEAN PLATELET VOLUME (test code 9.8 fL 6.8-11.2 N = MPV) GRANULOCYTE % (test code = GR%) 66.1 % 37.8-82.6 N IMMATURE GRANULOCYTE % (test 0.5 % 0.0-2.0 N code = IG%) LYMPHOCYTE % (test code = LY%) 19.1 % 14.1-45.4 N MONOCYTE % (test code = MO%) 8.0 % 2.5-11.7 N EOSINOPHIL % (test code = EO%) 6.0 % 0.0-6.2 N BASOPHIL % (test code = BA%) 0.3 % 0.0-2.1 N NUCLEATED RBC % (test code = 0.0 /100WBC% 0.0-1.0 N NRBC%) GRANULOCYTE # (test code = GR#) 3.98 k/mm3 2.0-13.7 N IMMATURE GRANULOCYTE # (test 0.03 K/mm3 0.00-0.03 N code = IG#) LYMPHOCYTE # (test code = LY#) 1.15 K/mm3 0.6-3.8 N MONOCYTE # (test code = MO#) 0.48 K/mm3 0.11-0.59 N EOSINOPHIL # (test code = EO#) 0.36 K/mm3 0.0-0.4 N BASOPHIL # (test code = BA#) 0.02 K/mm3 0.0-0.1 N NUCLEATED RBC # (test code = 0.00 K/mm3 0.0-0.05 N NRBC#) Specimen comments: cc
--- OUTSIDE RECORDS SUMMARY | 2020-09-07 23:35 | XMS REPORT | Summary of Care ---
:1980 Author Organization [facility] Address [address] [place] [id number] Care Team Providers Name Role Phone Pcp, Does Not Have A Primary Care Provider Reason for Referral Radiology Services (Routine) Status Reason Specialty Diagnoses / Referred By Referred To Procedures Contact Contact New Request Diagnostic Diagnoses Well woman exam [place], Radiology Procedures BI SCREENING MAMMOGRAM BILATERAL VAL [facility] [address] [place] [id number] Reason for Visit Reason Comments Well Woman Exam Encounter Details Date Type Department Care Team Description 07/26/[address] [facility] [place] [place]- Dalia Copeland Well woman exam (Primary Dx); TEJA Parada Encounter for contraceptive management, unspecified type; [address] [place] [address] History o f bilateral tubal ligation; [facility], [facility] Screening examination for STD (sexually transmitted disease); [place] [id number] Elevated blood pressure reading without diagnosis of hypertension [id number] Allergies Active Allergy Reactions Severity Noted Date Comments Codeine Shortness of Breath 09/25/2016 Meperidine Hcl Rash 09/25/2016 Marijuana/Cannabinoid Anaphylaxis High 01/06/2018 Sulfa (Sulfonamide Antibiotics) Rash High 7 Tramadol Nausea and/or Vomiting 09/25/2016 documented as of this encounter (statuses as of 07/26/2020) Medications Medication Sig Dispensed Refills Start Date End Date Status sucralfate 1 gram Take 1 tablet by 30 tablet 0 07/15/2020 Active tabletIndications: mouth before Hematemesis with meals and at nausea bedtime. dicyclomine (BENTYL) Take 1 capsule 30 capsule 0 07/15/2020 Active 10 mg by mouth every 8 capsuleIndications: (eight) hours as Hematemesis with needed for nausea Abdominal pain. ondansetron 4 mg Take 1 tablet by 20 tablet 0 07/15/2020 Active disintegrating mouth every 8 tabletIndications: (eight) hours as Hematemesis with needed for nausea Nausea and Vomiting (N/V). omeprazole 20 mg Take 1 capsule 30 capsule 0 07/15/20202019 Active capsuleIndications: by mouth daily Hematemesis with for 30 days. nausea documented as of this encounter (statuses as of 07/26/2020) Active Problems Problem Noted Date History of bilateral tubal ligation 07/26/2020 Elevated blood pressure reading without diagnosis of h ypertension 07/26/2020 Anxiety 04/07/2020 Chest pain 03/22/2020 Screening examination for STD (sexually transmitted di sease) 01/06/2018 Crohn disease 12/02/2007 Overview: involving small and large intesting, bio psy confirmed. Gets colonoscopy Q 6-12 months. no flares since 2014, off meds History of recurrent miscarriages Overview: 10 spontaneous abortions prior to 10 angelae ks, D&C in 2005 documented as of this encounter (statuses as of 07/26/2020) Resolved Problems Problem Noted Date Resolved Date Premature rupture of membranes 09/24/2017 8 Premature labor 09/24/2017 04/07/2020 Liveborn by vaginal delivery 09/24/2017 0204/2018 36 weeks gestation of 09/23/2017 01/06/20 18 [...] as of this encounter (statuses as of 07/26/2020) Immunizations Name Administration Dates Next Due Influenza Virus Vaccine Quad IM 3+ YRS 09/26/2017 documented as of this encounter Social History Tobacco Use Types Packs/Day Years Used Date Current Every Day Smoker Cigarettes 0.25 Sta rted: 1998 Smokeless Tobacco: Never Used Tobacco Cessation: Ready to Quit: No; Co unseling Given: Yes Comments: Occasional Smoker Alcohol Use Drinks/Week oz/Week Comments Yes Social Drinker Alcohol Habits Answer Date Recorded How often do you have a drink containing alcohol? Monthly or less 07/26/2020 How many drinks containing alcohol do you have on a 3 or 4 07/26/2020 typical day when you are drinking? How often do you have six or more drinks on one Not asked 07/26/2020 occasion? Sex Assigned at Date Recorded Not on file COVID-19 Exposure Response Date Recorded In the last month, have you been in contact with No / Unsure 07/26/2020 2:54 PM CDT someone who was confirmed or suspected to have Coronavirus / COVID-19? documented as of this encounter Last Filed Vital Signs Vital Sign Reading Time Taken Comments Blood Pressure 146/96 07/26/2020 3:54 PM CDT Pulse 91 07/26/2020 2:55 PM CDT Temperature 36.8 C (98.2 F) 07/26/2020 2:55 PM CDT Respiratory Rate 16 07/26/2020 2:55 PM CDT Oxygen Saturation - - Inhaled Oxygen Concentration - - Weight 54.1 kg (119 lb 6 oz) 07/26/2020 2:55 PM CDT Height 172.7 cm (5' 8") 07/26/2020 2:55 PM CDT Body Mass Index 18.15 07/26/2020 2:55 PM CDT documented in this encounter Progress Notes Dalia Copeland, TEJA - 07/26/2020 2:00 PM CDT Chief complaint: Chief Complaint Patient presents with Well Woman Exam HPI Patient is a CAF here for WWE and contraception management. Patient denies any abdominal/pelvic pain. Patient denies any other concerns. Patient requesting for provider to speak to social media editor concerning allegations of wanting to hurt herself and her child reported by father of the child. Patient informed that I am not able to evaluate her mental status and was given referral list. Patient reports LMP was 07/11/2020. Patient reports last sexual intercourse was on 05/2020 and desires to useBTL for BCM. Patient desires need for STD/STI testing. Patient denies current or past physical, sexual or emotional abuse. Histories OB History Para Term AB Living 15 5 1 4 10 5 SAB TAB Ectopic Multiple Live Births 10 0 0 0 5 # Outcome Date GA Lbr Norberto/2nd Weight Sex Delivery Anes PTL Lv 15 09/24/17 36w0d 5 lb (2.268 kg) F NORMAL SPONT SUE 14 09/04/11 28w0d 4 lb 13 oz (2.183 kg) F VAGINAL Y SUE 13 04/04/07 36w0d 5 lb 15 oz (2.693 kg) M VAGINAL N SUE 12 Term 10/21/02 37w0d 6 lb 6 oz (2.892 kg) M VAGINAL N SUE 11 04/11/00 36w0d 5 lb 10 oz (2.551 kg) F VAGINAL N SUE 10 SAB 9 SAB 8 SAB 7 SAB 6 SAB 5 SAB 4 SAB 3 SAB 2 SAB 1 SAB Obstetric Comments Patient reports all abortions were spontaneous, prior to 10 weeks, with same partner. Had 1 D&C in 2005. Past Medical History: Diagnosis Date Anemia 2000 during only, pt not on meds Anxiety 03/2020 not on meds Breast disorder 2014 Breast augmentation Crohn disease 2008 involving small and large intesting, biopsy confirmed. Gets colonoscopy Q 6-12 months. no flares since 2014, off meds Esophageal reflux controlled History of recurrent miscarriages 10 spontaneous abortions prior to 10 weeks, D&C in 2005 Kidney disease has history of kidney stones Pap smear abnormality of cervix 1999 Urinary calculus 2006 Ultrasound determined stones in RT kidney but did not pass them Family History Problem Relation Age of Onset Hypertension Mother PAD (peripheral arterial disease) Mother No Significant Medical Problems Father TB (tuberculosis) Maternal Grandfather Pulmonary Paternal Grandfather Pneumonia No Significant Medical Problems Sister No Significant Medical Problems Brother Cancer Maternal Grandmother lung No Significant Medical Problems Paternal Grandmother Family Status Relation Name Status Mo Alive Fa Alive MGFa PGFa Sis Alive Bro Alive MGMo PGMo Past Surgical History: Procedure Laterality Date ABDOMEN SURGERY PROC UNLISTED BREAST RECONSTRUC W OTHR TECHNIQ 2014 BREAST SURGERY 2014 Breast augmentation COLPOSCOPY 2000 CONIZATION CERVIX CIRCUMFERENTIAL N/A 1999 age 15, reports normal paps since then DILATION AND CURETTAGE (SHX) EXCISION SUBLINGUAL GLAND Right patient reports removed due to stones HB EXCISION GANGLION WRIST Left LAP,CHOLECYSTECTOMY 2013 LAPAROSCOPIC TUBAL LIGATION Bilateral 01/06/2018 Surgeon: Kalen Conner MD; Location: [facility] [place] Social History Socioeconomic History Marital status: Spouse name: Not on file Number of children: Not on file Years of education: Not on file Highest education level: Not on file Occupational History 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 Social Needs Financial resource strain: Not on file Food insecurity Worry: Not on file Inability: Not on file Transportation needs Medical: Not on file Non-medical: Not on file Tobacco Use Smoking status: Current Every Day Smoker Packs/day: 0.25 Types: Cigarettes Start date: 1998 Smokeless tobacco: Never Used Tobacco comment: Occasional Smoker Substance and Sexual Activity Alcohol use: Yes Frequency: Monthly or less Drinks per session: 3 or 4 Comment: Social Drinker Drug use: No Sexual activity: Yes Partners: Male control/protection: Surgical Comment: Last intercoure: 05/12/2020 Lifestyle Physical activity Days per week: Not on file Minutes per session: Not on file Stress: Not on file Relationships Social connections Talks on phone: Not on file Gets together: Not on file Attends faith service: Not on file Active member of club or organization: Not on file Attends meetings of clubs or organizations: Not on file Relationship status: Not on file Intimate partner violence Fear of current or ex partner: Not on file Emotionally abused: Not on file Physically abused: Not on file Forced sexual activity: Not on file Other Topics Concern Not on file Social History Narrative Patient feels safe at home. Social History Substance and Sexual Activity Sexual Activity Yes Partners: Male control/protection: Surgical Comment: Last intercoure: 05/12/2020 Labs Labs are pending. Radiology Radiology pending. Allergies Gabrielle is allergic to marijuana/cannabinoid; sulfa (sulfonamide antibiotics); codeine; demerol [meperidine hcl]; and tramadol. Medications Gabrielle has a current medication list which includes the following prescription(s): dicyclomine, omeprazole, ondansetron, and sucralfate. Review of Systems Constitutional: Negative for activity change, appetite change, fatigue, unexpected weight change, weight gain and weight loss. HENT: Negative for sore throat. Eyes: Negative for visual disturbance. Respiratory: Negative for cough and shortness of breath. Breasts: Negative for discharge, mass, pain and unequal size. Cardiovascular: Negative for chest pain, palpitations and leg swelling. Gastrointestinal: Negative. Negative for abdominal pain, anal bleeding, blood in stool, constipation, diarrhea, nausea, rectal pain and vomiting. Genitourinary: Negative for bladder incontinence, dysuria, urgency, flank pain, vaginal bleeding, vaginal discharge, genital sores, vaginal pain and pelvic pain. Skin: Negative for color change and rash. Neurological: Negative. Negative for dizziness, syncope and headaches. Psychiatric/Behavioral: Negative for confusion, self-injury and sleep disturbance. The patient is not nervous/anxious. Hematological: Negative for cold intolerance and heat intolerance. Endocrine: Negative for hair loss, cold intolerance, heat intolerance, weight gain and weight loss. BP (!) 153/101 (BP Location: Right arm, Patient Position: Sitting, BP CUFF SIZE: Adult Medium) | Pulse 91 | Temp 36.8 C (98.2 F) (Oral) | Resp 16 | Ht 5' 8" (1.727 m) | Wt 119 lb 6 oz (54.1 kg) | LMP 07/11/2020 | BMI 18.15 kg/m Pregravid BMI: Could not be calculated Physical Exam Vitals reviewed. Constitutional: She is oriented to person, place, and time. She appears well- developed, well-nourished and well-groomed. She has no deformities. Neck: No tenderness and no mass. No thyroid nodules and no thyromegaly palpated. Cardiovascular: Regular rate and rhythm. No murmur auscultated. Pulmonary/Chest: Breath sounds clear to auscultation. Normal inspiratory effort. Breast Implants Abdominal: Abdomen is soft. No mass palpated. No tenderness present. There is no guarding. Neuro/Psychiatric: She has a normal mood and affect. She is oriented to person, place, and time. Skin: Skin normal. No lesion and no rash present. Red markings indicate tattoo present on body Breast: Right breast exhibits no mass, no nipple discharge and no tenderness. Left breast exhibits no mass, no nipple discharge and no tenderness. Normal left breast and normal right breast Rectal: normal rectum External genitalia: Normal external genitalia appropriate for age. Normal hair distribution. No labial lesion. Vagina:Normal vagina. No lesion inspected. No abnormal vaginal discharge found. No lesions in thevagina. Cervix: Normal cervix. No lesion. No tenderness and no discharge present. Uterus: Uterus is normal size and non-tender. 6cm Normal uterus Adnexa: Right adnexa without tenderness or mass. Left adnexa without tenderness or mass. Normal leftadnexa and normal right adnexa Anus/perineum: Normal perineum. Assessment/Plan Rubella: Positive VZV:Positve BMI:18.15 Td:2017 Pap Smear:done today Gardasil:N/A Mammogram:sceduled today Guaiac:N/A Colonoscopy:N/A Well woman exam (primary encounter diagnosis) Comment: Routine Visit Plan: BI SCREENING MAMMOGRAM BILATERAL, PAP Smear-Liquid Based, HIGH RISK HPV-THIN PREP, CBC WITH DIFF, PAP Smear-Liquid Based, HIGH RISK HPV-THIN PREP, CBC WITH DIFF Denies zika virus risk, signs and symptoms such as fever,rash,joint pain, conjunctivitis (red eyes), muscle pain, headaches; outside [place] travel to areas affected by zika, and FOB exposure to zika. Educated on use of mosquito repellent. Covid x12 screening done, screening results are negative. Encounter for contraceptive management, unspecified type History of bilateral tubal ligation Comment: History of BTL Plan: will continue to monitor Screening examination for STD (sexually transmitted disease) Comment: per patient result Plan: GC & CHLAMYDIA AMPLIFIED ASSAY, [facility] ONLY - SYPHILIS IGG/IGM, HIV 1/2 AG-AB WITH REFLEX, [facility] ONLY - SYPHILIS IGG/IGM, HIV 1/2 AG-AB WITH REFLEX Elevated blood pressure reading without diagnosis of hypertension Comment: elavted blood pressurex3 Plan: patient given resources for evaluation and managment Return to clinic in 2 weeks. Discussed treatment options. Medications as ordered. Reviewed patient instructions and provided printed copy. This visit did not involve counseling and coordination that comprised more than 50% of the visit time. TEJA Horvath 07/26/2020 4:04 PM Aleja Ribeiro RN - 07/26/2020 2:00 PM CDT39 year old presents to the clinic for wwe. 1) Previous BCM: BTL 2) Desired BCM: BTl 3) LMP: 07/11/2020 4) Last [place]: 05/12/2020 5) Last Pap: [address] Conner. Results: Negative per patient report 6) Tdap: 2017 7) Gardasil: N/A 8) C/O: Breast pain due to implants needing to be removed. 9) Patient denies history of physical, emotional, or sexual abuse. Patient states that she currently feels safe at home. ALEJA RIBEIRO RN 07/26/2020 3:08 PM documented in this encounter Plan of Treatment Date Type Specialty Care Team Description 08/17/2020 Appointment Radiology Dalia Copeland FNP [address] [place], [place] [address] [phone] Name Type Priority Associated Diagnoses Date/Ti me PAP Smear-Liquid Based LAB Routine Well woman exam 3:53 PM CDT HIGH RISK HPV-THIN PREP LAB Routine Well woman exam 0 07/26/2020 3:53 PM CDT GC & CHLAMYDIA LAB Routine Screening examination for 07/26/2020 3:53 PM CDT AMPLIFIED ASSAY STD (sexually transmitted disease) CBC WITH DIFF LAB Routine Well woman exam 07/26/2020 3:53 PM CDT [facility] ONLY - SYPHILIS LAB Routine Screening examinatio n for 07/26/2020 3:53 PM CDT IGG/IGM STD (sexually transmitted disease) HIV 1/2 AG-AB WITH LAB Routine Screening examination for 07/26/2020 3:53 PM CDT REFLEX STD (sexually transmitted disease) Name Type Priority Associated Diagnoses Order S chedule BI SCREENING MAMMOGRAM IMAGING Routine Well woman exam Ex pected: 07/26/2020, BILATERAL Expires: 2020 PAP Smear-Liquid Based LAB Routine Well woman exam Ex pected: 07/26/2020, Expires: 2020 HIGH RISK HPV-THIN PREP LAB Routine Well woman exam E xpected: 07/26/2020, Expires: 2020 CBC WITH DIFF LAB Routine Well woman exam Expected: 0 07/26/2020, Expires: 2020 [facility] ONLY - SYPHILIS LAB Routine Screening examinatio n Expected: 07/26/2020, IGG/IGM for STD (sexually Expires: 0 07/26/2021 transmitted disease) HIV 1/2 AG-AB WITH LAB Routine Screening examination Expected: 07/26/2020, REFLEX for STD (sexually Expires: 0 07/26/2021 transmitted disease) Health Maintenance Due Date Last Done Comments PNEUMOCOCCAL 0-64 YEARS COMBINED SERIES (1 of - 1984 PPSV23) Depression Screening 1990 DTaP,Tdap,and Td Vaccines (1 - Tdap) 1997 PAP SMEAR 1999 Breast Cancer Screening (MAMMOGRAM) 2018 INFLUENZA VACCINE (#1) 2020 09/26/2017 documented as of this encounter Implants Implanted Type Area Slps Device Shelf Model / Identifier Expiration Serial / Date Lot Fallope Ring Band, Gyrus #[id number] - [id number]-30 Band N/A: Fallopian Gyrus 09/16/2019 FRB-30 / Implanted: Qty: 1 on 01/06/2018 by Kalen Gutierrez MD at [facility] tube F RB-30 / [id number] documented as of this encounter Results Not on filedocumented in this encounter Visit Diagnoses Diagnosis Encounter for contraceptive management, unspecified type History of bilateral tubal ligation Elevated blood pressure reading without diagnosis of hypertension documented in this encounter Insurance Payer Benefit Plan Subscriber ID Effective Phone Address Typ e / Group Dates [facility] [id number] 2020-Prese [phone] Medicaid WOMEN nt [address] [place] [address] documented as of this encounter
--- OUTSIDE RECORDS SUMMARY | 2020-09-07 23:35 | XMS REPORT | Summary of Care ---
:1980 Author Organization [facility] - [facility] Address [address] [place] [id number] Care Team Providers Name Role Phone Pcp, Does Not Have A Primary Care Provider Reason for Referral MRI/CAT Scan (Routine) Status Reason Specialty Diagnoses / Referred By Referred To Procedures Contact Contact New Request Diagnostic Diagnoses Hematemesis with nausea Dhruv Briggs, Radiology Procedures CT ABDOMEN PELVIS W CONTRAST DO [address] [place] [address] [place] [address] Reason for Visit Reason Comments Abdominal Pain Auth/Cert Status Reason Specialty Diagnoses / Referred By Referred To Procedures Contact Contact Emergency Medicine Ad[facility] Em ergency Dept [address] [place] [address] Fax: Encounter Details Date Type Department Care Team Description 07/15/2020 Emergency ADC-Emergency Dhruv Briggs DO Hematemesis with Department [address] [place] [address]. nausea (Primary Dx) [address] [facility] [address] [place] [id number] [place] [address] [phone] Allergies Active Allergy Reactions Severity Noted Date Comments Codeine Shortness of Breath 09/25/2016 Meperidine Hcl Rash 09/25/2016 Marijuana/Cannabinoid Anaphylaxis High 01/06/2018 Sulfa (Sulfonamide Antibiotics) Rash High 7 Tramadol Nausea and/or Vomiting 09/25/2016 documented as of this encounter (statuses as of 07/15/2020) Medications Medication Sig Dispensed Refills Start Date [...] as of this encounter (statuses as of 07/15/2020) Active Problems Problem Noted Date Anxiety 04/07/2020 Chest pain 03/22/2020 Crohn disease 12/02/2007 Overview: involving small and large intesting, bio psy confirmed. Gets colonoscopy Q 6-12 months. no flares since 2014, off meds History of recurrent miscarriages Overview: 10 spontaneous abortions prior to 10 wee ks, D&C in 2005 documented as of this encounter (statuses as of 07/15/2020) Resolved Problems Problem Noted Date Resolved Date [...] as of this encounter (statuses as of 07/15/2020) Immunizations Name Administration Dates Next Due Influenza [...] month, have you been in contact with Yes 07/15/2020 1:14 PM CDT someone who was confirmed or suspected to have Coronavirus / COVID-19? documented as of this encounter Last Filed Vital Signs Vital Sign Reading Time Taken Comments Blood Pressure 119/80 07/15/2020 6:00 PM CDT Pulse 79 07/15/2020 6:00 PM CDT Temperature 37.1 C (98.8 F) 07/15/2020 1:21 PM CDT Respiratory Rate 20 07/15/2020 6:00 PM CDT Oxygen Saturation 96% 07/15/2020 6:00 PM CDT Inhaled Oxygen Concentration - - Weight 52.2 kg (115 lb) 07/15/2020 1:21 PM CDT Height - - Body Mass Index 17.49 03/22/2020 4:15 AM CDT documented in this encounter Discharge Instructions Dhruv Egan DO - 07/15/2020 DIAGNOSIS Diagnoses that have been ruled out: None Diagnoses that are still under consideration: None Final diagnoses: Hematemesis with nausea NO LIFE-THREATENING FINDINGS ON TODAY'S EXAM. PROCEDURES IN THE ER TODAY: Orders Placed This Encounter Procedures CT ABDOMEN PELVIS W CONTRAST CBC WITH DIFF COMP. METABOLIC PANEL (62826) URINALYSIS POCT TEST COVID-19 (ID NOW RAPID TESTING) MEDICATIONS ADMINISTERED IN THE ER TODAY AND DISCHARGE MEDICATIONS: Orders Placed This Encounter Medications pantoprazole (PROTONIX) 80 mg in NaCl 0.9% (NS) 100 mL IV Piggyback dicyclomine (BENTYL) capsule 10 mg iohexol (OMNIPAQUE 350 BULK-150 mL) injection 120 mL sucralfate 1 gram tablet dicyclomine (BENTYL) 10 mg capsule ondansetron 4 mg disintegrating tablet omeprazole 20 mg capsule FOLLOW-UP RECOMMENDATIONS: RECOMMEND FOLLOW-UP WITH A PRIMARY CARE PROVIDER OR SPECIALIST IN 2-5 DAYS, ESPECIALLY IF NO IMPROVEMENT IN SYMPTOMS. MAY FOLLOW-UP WITH A PROVIDER OF YOUR CHOICE, SUCH : 1. A PHYSICIAN OF YOUR CHOICE 2. [facility], . LOCATIONS IN [facility] 3. [facility], [address], [place]; [phone] OR, IF YOU WISH TO FOLLOW-UP WITHIN THE [facility], MAY TRY THESE OPTIONS (CLINIC APPOINTMENTS AVAILABLE ON VBAD-WA-OTWR BASIS): 1. SCHEDULE AN APPOINTMENT ONLINE AT WWW[facility] 2. OR CALL THE [facility] ACCESS [facility] AT OR 3. OR CALL YOUR [facility] PHYSICIAN'S OFFICE DIRECTLY IF YOU ARE ALREADY AN ESTABLISHED [facility] PATIENT. RETURN TO ER FOR WORSENING OF SYMPTOMS. AttachmentsThe following attachments cannot be sent through Care Everywhere. Gretta-Parikh Tear (Emirati)documented in this encounter ED Notes Yonas Bansal RN - 07/15/2020 1:20 PM CDTC/O NV starting at 2AM today. Describes vomit as coffee grounds. States "The last time I had this was a Crohn's flare up with internal MRSA. I also live with 4 people who are COVID positive". Denies any pain. Dhruv Gold DO - 07/15/2020 1:16 PM CDT EMERGENCY DEPARTMENT ENCOUNTER [facility] Patient Name: Gabrielle Plata Date of : 1980 39 year old Exam Room:TX7/TX7 Primary Care Physician: Cat Ure[facility] Patient Escorted by: Self [9] Mode of Arrival: Personal means [1] EMS Treatment Prior to ED Arrival: Chief Complaint Chief Complaint Patient presents with Abdominal Pain HPI Gabrielle Plata is a 39 year old female with abdominal pain, nausea and vomiting with small amount of hematemesis. Patient states that she has had nausea and vomiting over the last couple days and now it's had a small amount of bleeding. She also states that she does not have any nausea medication and she is not able to keep any food or drink down. She has a history of Crohn's disease in the past.As well as esophageal reflux which states her symptoms are similar to that in the past that she describes it as battery acid. No fever. No cough or shortness of breath. She is however living with 4 other individuals that are positive for COVID-19 Past Medical History / Immunizations Past Medical History: Diagnosis Date Crohn disease 2007 involving small and large intesting, biopsy confirmed. Gets colonoscopy Q 6-12 months. no flares since 2014, off meds Esophageal reflux controlled History of recurrent miscarriages 10 spontaneous abortions prior to 10 weeks, D&C in 2005 Urinary calculus 2006 Ultrasound determined stones in RT kidney but did not pass them Tetanus received in last 5 years: Unknown Childhood immunizations: Up-to-date Past Surgical History Past Surgical History: Procedure Laterality Date CONIZATION CERVIX CIRCUMFERENTIAL N/A age 15, reports normal paps since then DILATION AND CURETTAGE (SHX) EXCISION SUBLINGUAL GLAND Right patient reports removed due to stones HB EXCISION GANGLION WRIST Left LAP,CHOLECYSTECTOMY 2012 LAPAROSCOPIC TUBAL LIGATION Bilateral 01/06/2018 Surgeon: Kalen Conner MD; Location: [facility] OR [facility] Allergies Allergies Allergen Reactions Marijuana/Cannabinoid Anaphylaxis Sulfa (Sulfonamide Antibiotics) Rash Codeine Shortness of Breath Demerol [Meperidine Hcl] Rash Tramadol Nausea and/or Vomiting Social History Tobacco Use Current Some Day Smoker; Smoked: Cigarettes. Smokeless Tobacco: Never used smokeless tobacco. Comments: Occasional Smoker Alcohol Use Yes. Comments: Social Drinker Drug Use No. Review of Systems Review of Systems Constitutional: Negative for chills, fatigue and fever. HENT: Negative for sore throat. Eyes: Negative for pain. Respiratory: Negative for cough, chest tightness, shortness of breath and stridor. Breasts: Negative for pain. Cardiovascular: Negative for chest pain and palpitations. Gastrointestinal: Positive for abdominal pain, nausea and vomiting. Negative for constipation and diarrhea. Genitourinary: Negative for bladder incontinence, vaginal discharge and difficulty urinating. Musculoskeletal: Negative for back pain. Skin: Negative for color change and wound. Neurological: Negative for dizziness, seizures, weakness, light-headedness and headaches. Physical Exam BP 119/80 | Pulse 79 | Temp 37.1 C (98.8 F) (Oral) | Resp 20 | Wt 52.2 kg (115 lb) | SpO2 96% | BMI 17.49 kg/m Physical Exam Constitutional: General: She is not in acute distress. Appearance: She is well-developed. HENT: Head: Normocephalic and atraumatic. Eyes: Pupils: Pupils are equal, round, and reactive to light. Neck: Musculoskeletal: Normal range of motion. Cardiovascular: Rate and Rhythm: Normal rate and regular rhythm. Pulmonary: Effort: Pulmonary effort is normal. Abdominal: General: There is no distension. Tenderness: There is abdominal tenderness (mild). Musculoskeletal: Normal range of motion. Skin: General: Skin is warm and dry. Neurological: Mental Status: She is alert and oriented to person, place, and time. Labs Recent Results (from the past 24 hour(s)) CBC WITH DIFF Collection Time: 07/15/20 1:45 PM Result Value Ref Range WBC 14.03 (H) 4.30 - 11.10 10*3/L RBC 4.91 3.93 - 5.25 10*6/L HGB 15.6 (H) 11.6 - 15.0 g/dL HCT 43.3 35.7 - 45.2 % MCV 88.2 80.6 - 95.5 fL MCH 31.8 25.9 - 32.8 pg MCHC 36.0 (H) 31.6 - 35.1 g/dL RDW-SD 38.5 (L) 39.0 - 49.9 fL RDW-CV 11.9 (L) 12.0 - 15.5 % PLT 295 166 - 358 10*3/L MPV 9.5 9.5 - 12.9 fL NRBC/100 WBC 0.0 0.0 - 10.0 /100 WBCs NRBC x10^3 <0.01 10*3/L GRAN MAT (NEUT) % 79.2 % IMM GRAN % 0.40 % LYMPH % 12.9 % MONO % 5.2 % EOS % 1.9 % BASO % 0.4 % GRAN MAT x10^3(ANC) 11.12 (H) 1.88 - 7.09 10*3/uL IMM GRAN x10^3 0.05 0.00 - 0.06 10*3/uL LYMPH x10^3 1.81 1.32 - 3.29 10*3/uL MONO x10^3 0.73 0.33 - 0.92 10*3/uL EOS x10^3 0.27 0.03 - 0.39 10*3/uL BASO x10^3 0.05 0.01 - 0.07 10*3/uL COMP. METABOLIC PANEL (92122) Collection Time: 07/15/20 1:45 PM Result Value Ref Range NA 136 135 - 145 mmol/L K 4.6 3.5 - 5.0 mmol/L CL 102 98 - 108 mmol/L CO2 TOTAL 21 (L) 23 - 31 mmol/L AGAP 13 2 - 16 BUN 7 7 - 23 mg/dL GLUCOSE 102 70 - 110 mg/dL CREATININE 0.82 0.50 - 1.04 mg/dL TOTAL BILI 0.8 0.1 - 1.1 mg/dL CALCIUM 9.8 8.6 - 10.6 mg/dL T PROTEIN 8.4 (H) 6.3 - 8.2 g/dL ALBUMIN 4.8 3.5 - 5.0 g/dL ALK PHOS 102 34 - 122 U/L ALTv 25 5 - 35 U/L AST(SGOT) 41 (H) 13 - 40 U/L eGFR Calculation (Non-) 76.8 mL/min/1.73m2 eGFR Calculation () 93.1 mL/min/1.73m2 URINALYSIS Collection Time: 07/15/20 1:45 PM Result Value Ref Range APPEARANCE Hazy (A) Clear COLOR Yvonne (A) Yellow PH 6.0 4.8 - 8.0 SP GRAVITY 1.020 1.003 - 1.030 GLU U QUAL Normal Normal BLOOD Negative Negative KETONES 5 mg/dL (A) Negative PROTEIN 30 mg/dL (A) Negative UROBILIN 2.0 mg/dL (A) Normal BILIRUBIN Negative Negative NITRITE Negative Negative LEUK SHIRLEY 25/uL (A) Negative RBC/HPF 3 0 - 3 HPF WBC/HPF 2 0 - 5 HPF BACTERIA Few (A) Negative MUCOUS Moderate (A) Negative LPF SQ EPITH 16 HPF HYAL CAST 14 (H) <=2 LPF COVID-19 (ID NOW RAPID TESTING) Collection Time: 07/15/20 1:45 PM Specimen: NASOPHARYNGEAL SWAB Result Value Ref Range SARS-CoV-2 Rapid ID NOW Not Detected Not Detected POCT TEST Collection Time: 07/15/20 1:47 PM Result Value Ref Range POCT PREG negative On board controls acceptable with C Line present POCT PREG LOT # [id number] POCT PREG TEST DATE 7,101,021 [facility] Encounter on 07/15/20 CT ABDOMEN PELVIS W CONTRAST Narrative CT ABDOMEN PELVIS W CONTRAST HISTORY: 39 years-old; Female; Abd infection (incl peritonitis) COMPARISON: 09/25/2016 CT abdomen pelvis TECHNIQUE AND FINDINGS: Contiguous axial imaging from the level of the lung bases through the pubic symphysis was performed after the uncomplicated administration of 120 cc of intravenous Omnipaque contrast. Coronal and sagittal reconstructions were obtained. Auto mA and/or iterative reconstruction were used to reduce radiation dose. FINDINGS: LOWER THORAX: The lung bases are clear. Partially visualized left breast prosthesis is noted. LIVER: No focal hepatic lesions. Normal contour. Diffuse hepatic hypoattenuation is noted. GALLBLADDER AND BILIARY TREE: Prior cholecystectomy. SPLEEN: Unremarkable. PANCREAS: No ductal dilatation or masses ADRENAL GLANDS: No adrenal lesions. KIDNEYS: No hydronephrosis, stones, or masses. Homogeneous and symmetrical enhancement. GI TRACT: No dilation or bowel wall thickening. Appendix is normal (4:27-38). Mild sigmoid diverticulosis without CT evidence of diverticulitis. PERITONEUM AND RETROPERITONEUM: No free air or fluid collection. LYMPH NODES: No intra-abdominal or pelvic lymph node enlargement. PELVIS/BLADDER: Bladder is partially distended with no wall thickening. The uterus is anteverted. A small amount of fluid in endometrial cavity is noted. Bilateral ovaries are visualized. VESSELS: Unremarkable BONES AND SOFT TISSUES: No suspicious lytic or sclerotic bony lesions. Impression No acute intra-abdominal or pelvic abnormality to explain patient's symptoms. Preliminary Report Dictated by Resident: Virginia Pop Orders and Treatments Orders Placed This Encounter Procedures CT ABDOMEN PELVIS W CONTRAST CBC WITH DIFF COMP. METABOLIC PANEL (15714) URINALYSIS POCT TEST COVID-19 (ID NOW RAPID TESTING) Orders Placed This Encounter Medications pantoprazole (PROTONIX) 80 mg in NaCl 0.9% (NS) 100 mL IV Piggyback dicyclomine (BENTYL) capsule 10 mg iohexol (OMNIPAQUE 350 BULK-150 mL) injection 120 mL sucralfate 1 gram tablet dicyclomine (BENTYL) 10 mg capsule ondansetron 4 mg disintegrating tablet omeprazole 20 mg capsule Procedures See ED Procedure Note Notes & MDM Patient was evaluated for an emergency medical condition related to Abdominal Pain . Differential diagnoses considered by presenting complaints but not limited to: Gretta Parikh Syndrome, Peptic ulcer, Abdominal pain, and others . Labs:were ordered, and resulted, any relevant abnormalities were considered. Imaging:Ordered, and resulted, any relevant abnormalities were considered. IV fluids: not indicated Procedures:were not performed. EKG: An EKG was not performed. Rhythm Strip Interpretation: 79 Normal Sinus Rhythm Pulse Oximetry room air Assessment: Gabrielle Plata is a 39 year old female with small amount of hematemesis. 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 Hgb not requiring transfusion. Antiemetics given. Home with carafate, bentyl, zofran, omeprazole. Follow up with GI/PCP. Return precautions given if symptoms worsen as documented in the discharge instructions. History, physical exam findings, results of visit, differential diagnosis, medication regimens and plan of future care have been considered. Additional MDM may be found in the ED course. Differential diagnosis considered and final disposition made based on information gathered during evaluation and may not be completely ruled out or specifically listed. Vital signs were rechecked before final disposition and determined to be expected for patient's clinical condition.. Diagnosis ICD-10-CM ICD-9-CM 1. Hematemesis with nausea K92.0 578.0 787.02 Disposition & Follow Up ED Disposition ED Disposition Condition Comment Disch - Home Stable Patient's Medications START taking these medications DICYCLOMINE (BENTYL) 10 MG CAPSULE Take 1 capsule by mouth every 8 (eight) hours as needed for Abdominal pain. OMEPRAZOLE 20 MG CAPSULE Take 1 capsule by mouth daily for 30 days. ONDANSETRON 4 MG DISINTEGRATING TABLET Take 1 tablet by mouth every 8 (eight) hours as needed for Nausea and Vomiting (N/V). SUCRALFATE 1 GRAM TABLET Take 1 tablet by mouth before meals and at bedtime. CONTINUE taking these medications which have NOT CHANGED No medications on file START taking Modified Medications as Prescribed No medications on file STOP taking these medications No medications on file Contact information for follow-up Faby Brito MD Specialty: IM-GASTROENTEROLOGY [id number] [place] [address] [facility] [place] [address] Instructions: For follow up of the presenting symptoms. ADC-Emergency Department Specialty: Emergency Medicine [address] [facility] [address] Instructions: If symptoms worsen as documented in the discharge Dhruv Briggs DO 07/15/2020 1:38 PM ACTIVE COVID-19 PANDEMIC. documented in this encounter Miscellaneous Notes ED Nurse Note - Radha Fernandez RN - 07/15/2020 6:52 PM CDTPt given printed and verbal discharge instructions regarding hematemesis with nausea, encouraged hydration. 4 Prescriptions provided Pt verbalized understanding of instructions, pt awake alert oriented, resp reg unlabored, skin w/d, color appropriate for race, moves all ext well,pt encouraged to follow up with PCP. Advised to seek medical attention for new/prolonged/worsening of symptoms, Symptoms improved No adverse reaction to meds given in ER noted upon discharge PIV d'cd, dressing to site, catheter in tact. Awake, alert oriented, resp reg unlabored, skin w/d, pt leaving amb with steady gait, in no apparent distress. D Nurse Note - Radha Fernandez RN - 07/15/2020 4:05 PM CDTPatient states that the IV site is "burning" ; IV necessary for CT with contrast. Attempt IV x2 to fred AC; unsuccessful. Provider notified. documented in this encounter Plan of Treatment Name Type Priority Associated Diagnoses Date/Ti me CT ABDOMEN PELVIS W IMAGING Routine Hematemesis with naus ea 07/15/2020 5:13 PM CONTRAST CDT Health Maintenance Due Date Last Done Comments PNEUMOCOCCAL 0-64 YEARS COMBINED SERIES (1 of 1 - 1984 PPSV23) Depression Screening 1990 DTaP,Tdap,and Td Vaccines (1 - Tdap) 1997 PAP SMEAR 1999 Breast Cancer Screening (MAMMOGRAM) 2018 INFLUENZA VACCINE (#1) 2020 09/26/2017 documented as of this encounter Implants Implanted Type Area [employer] Device Shelf Model / Identifier Expiration Serial / Date Lot Fallope Ring BandDemetri #[id number]-30 - Sfrb-30 Band N/A: Fallopian Gyrus 09/16/2019 FRB-30 / Implanted: Qty: 1 on 01/06/2018 by Kalen Gutierrez MD at [facility] tube F RB-30 / [id number] documented as of this encounter Procedures Procedure Name Priority Date/Time Associated Diagnosis Comme nts CT ABDOMEN PELVIS W Routine 07/15/2020 5:13 PM Hematemesis wi th nausea CONTRAST [facility] - 07/15/2020 6:[address] ABDOMEN PELVIS W CONTRAST HISTORY: 39 years-old; Femal e; Abd infection (incl peritonitis) COMPARISON: 09/25/2016 CT ab domen pelvis TECHNIQUE AND FINDINGS: Cont iguous axial imaging from the level of the lung bases through the pubic symp hysis was performed after the uncomplicated administration of 120 cc of intravenous Omnipaque contrast. Coronal and sagittal reconstructions wer e obtained. Auto mA and/or iterative reconstruction were used to reduce radiation dose. FINDINGS: LOWER THORAX: The lung bases are clear. Partially visualized left breast prosthesis is noted. LIVER: No focal hepatic lesi ons. Normal contour. Diffuse hepatic hypoattenuation is noted. GALLBLADDER AND BILIARY TREE : Prior cholecystectomy. SPLEEN: Unremarkable. PANCREAS: No ductal dilatati on or masses ADRENAL GLANDS: No adrenal l esions. KIDNEYS: No hydronephrosis, stones, or masses. Homogeneous and symmetrical enhancement. GI TRACT: No dilation or bow el wall thickening. Appendix is normal (4:27-38). Mild sigmoid dive rticulosis without CT evidence of diverticulitis. PERITONEUM AND RETROPERITONE UM: No free air or fluid collection. LYMPH NODES: No intra-abdomi nal or pelvic lymph node enlargement. PELVIS/BLADDER: Bladder is p artially distended with no wall thickening. The uterus is anteverted. A smal l amount of fluid in endometrial cavity is noted. Bilateral ovaries are visualized. VESSELS: Unremarkable BONES AND SOFT TISSUES: No s uspicious lytic or sclerotic bony lesions. IMPRESSION No acute intra-abdominal or pelvic abnormality to explain patient's symptoms. Preliminary Report Dictated by Resident: Virginia Pop POCT TEST Routine 07/15/2020 1:47 PM Hematemesis wi th Results for this CDT nausea procedure are i n the results section. COVID-19 (ID NOW STAT 07/15/2020 1:45 PM Hematemesis with Results for this RAPID TESTING) CDT nausea procedure are in the results section. URINALYSIS STAT 07/15/2020 1:45 PM Hematemesis with Resu lts for this CDT nausea procedure are i n the results section. CBC WITH DIFF STAT 07/15/2020 1:45 PM Hematemesis with Res ults for this CDT nausea procedure are i n the results section. COMP. METABOLIC STAT 07/15/2020 1:45 PM Hematemesis with R esults for this PANEL ([id number]) CDT nausea procedure are in the results section. CONSENT/REFUSAL FOR Routine 07/15/2020 1:15 PM DIAGNOSIS AND CDT TREATMENT documented in this encounter Results POCT TEST (07/15/2020 1:47 PM CDT) Pathologist Sig nature POCT PREG negative On board controls acceptable present with C Line POCT PREG LOT # [id number] POCT PREG TEST DATE 312,021 Specimen Urine - URINE, UNSPECIFIED SOURCE COVID-19 (ID NOW RAPID TESTING) (07/15/2020 1:45 PM CDT) SARS-CoV-2 Rapid ID Not Detected Not Detected [facility] Specimen Swab - NASOPHARYNGEAL SWAB Narrative Performed At ID NOW COVID-19 Assay is an isothermal nucleic [facility] acid amplification test intended for the qualitative detection of nucleic acid from SARS-CoV-2 viral RNA in nasopharyngeal (BEHAVIORAL HEALTH CARE COORDINATOR) specimens. It is used under Emergency Use Authorization (EUA) by FDA. The limit of detection (LOD) of the assay is 125 Genome Equivalents/mL. A positive result is indicative of the presence of SARS-CoV-2 RNA. Clinical correlation with patient history and other diagnostic information is necessary to determine patient infection status. A negative (Not Detected) result does not preclude SARS-CoV-2 infection. In patients with clinical symptoms and other tests that are consistent with SARS-CoV-2 infection, negative results should be treated as presumptive negative and a new specimen should be tested with alternative PCR molecular test. Invalid: Please collect a new specimen for repeat patient testing if clinically indicated. Performing Organization Address [facility] Phone Number [facility] CLIA: [id number] [place] [address] URINALYSIS (07/15/2020 1:45 PM CDT) Pathologist Sig nature APPEARANCE Hazy (A) Clear [facility] COLOR Yvonne (A) Yellow [facility] PH 6.0 4.8 - 8.0 [facility] SP GRAVITY 1.020 1.003 - 1.030 [facility] GLU U QUAL Normal Normal [facility] BLOOD Negative Negative [facility] KETONES 5 mg/dL (A) Negative [facility] PROTEIN 30 mg/dL (A) Negative [facility] UROBILIN 2.0 mg/dL (A) Normal [facility] BILIRUBIN Negative Negative [facility] NITRITE Negative Negative [facility] LEUK SHIRLEY 25/uL (A) Negative [facility] RBC/HPF 3 0 - 3 HPF [facility] WBC/HPF 2 0 - 5 HPF [facility] BACTERIA Few (A) Negative [facility] MUCOUS Moderate (A) Negative LPF [facility] SQ EPITH 16 HPF [facility] HYAL CAST 14 (H) <=2 LPF [facility] Specimen Urine - URINE, CLEAN CATCH Performing Organization Address City/[facility] Phone Number [facility] CLIA: [id number] [place] [address] COMP. METABOLIC PANEL ([id number]) (07/15/2020 1:45 PM CDT) Pathologist Sig nature NA 136 135 - 145 [facility] mmol/L [facility]ITAL [facility] K 4.6 3.5 - 5.0 [facility] mmol/L [facility] CL 102 98 - 108 mmol/L [facility] CO2 TOTAL 21 (L) 23 - 31 mmol/L [facility] AGAP 13 2 - 16 [facility] BUN 7 7 - 23 mg/dL [facility] GLUCOSE 102 70 - 110 mg/dL [facility] CREATININE 0.82 0.50 - 1.04 [facility] mg/dL [facility] TOTAL BILI 0.8 0.1 - 1.1 mg/dL [facility] CALCIUM 9.8 8.6 - 10.6 [facility] mg/dL [facility] T PROTEIN 8.4 (H) 6.3 - 8.2 g/dL [facility] ALBUMIN 4.8 3.5 - 5.0 g/dL [facility] ALK PHOS 102 34 - 122 U/L [facility] ALTv 25 5 - 35 U/L [facility] AST(SGOT) 41 (H) 13 - 40 U/L [facility] eGFR Calculation 76.8 mL/min/1.73m2 [facility] ([facility] [place]) eGFR Calculation 93.1 mL/min/1.73m2 [facility] () [facility] Specimen Blood - VENOUS Narrative Performed At Association of Glomerular Filtration Rate (GFR) [facility] and Staging of Kidney Disease* + + +- + | GFR (mL/min/1.73 m2) | With Kidney Damage | Without Kidney Damage + + +- + | >90 | Stage one | Normal + + +- + | 60-89 | Stage two | Decreased GFR + + +- + | 30-59 | Stage three | Stage three + + +- + | 15-29 | Stage four | Stage four + + +- + | <15 (or dialysis) | Stage five | Stage five + + +- + *Each stage assumes the associated GFR level has been in effect for at least three months. Stages 1 to 5, with or without kidney disease, indicate chronic kidney disease. Notes: Determination of stages one and two (with eGFR >59mL/min/1.73 m2) requires estimation of kidney damage for at least three months as defined by structural or functional abnormalities of the kidney, manifested by either: Pathological abnormalities or Markers of kidney damage (including abnormalities in the composition of the blood or urine or abnormalities in imaging tests). Performing Organization Address City/State/Zipcode Phone Number [facility] CLIA: [id number] [place] [address] CBC WITH DIFF (07/15/2020 1:45 PM CDT) Pathologist Sig nature WBC 14.03 (H) 4.30 - 11.10 [facility] 10*3/L H[facility]PITAL LAB[facility]ORY RBC 4.91 3.93 - 5.25 [facility] 10*6/L H[facility] HGB 15.6 (H) 11.6 - 15.0 [facility] g/dL [facility] HCT 43.3 35.7 - 45.2 % [facility] MCV 88.2 80.6 - 95.5 fL [facility] MCH 31.8 25.9 - 32.8 pg [facility] MCHC 36.0 (H) 31.6 - 35.1 [facility] g/dL [facility] RDW-SD 38.5 (L) 39.0 - 49.9 fL [facility] RDW-CV 11.9 (L) 12.0 - 15.5 % [facility] PLT 295 166 - 358 [facility] 10*3/L [facility] MPV 9.5 9.5 - 12.9 fL [facility] NRBC/100 WBC 0.0 0.0 - 10.0 /100 [facility] WBCs [facility] NRBC x10^3 <0.01 10*3/L [facility] GRAN MAT (NEUT) % 79.2 % [facility] IMM GRAN % 0.40 % [facility] LYMPH % 12.9 % [facility] MONO % 5.2 % [facility] EOS % 1.9 % [facility] BASO % 0.4 % [facility] GRAN MAT x10^3(ANC) 11.12 (H) 1.88 - 7.09 [facility] 10*3/uL HOSPITAL LABORATORY IMM GRAN x10^3 0.05 0.00 - 0.06 [facility] 10*3/uL HOSPITAL LAB[facility]ORY LYMPH x10^3 1.81 1.32 - 3.29 [facility] 10*3/uL HOSPITAL LAB[facility]ATORY MONO x10^3 0.73 0.33 - 0.92 [facility] 10*3/uL HOSPITAL LABORATORY EOS x10^3 0.27 0.03 - 0.39 [facility] 10*3/uL [facility] BASO x10^3 0.05 0.01 - 0.07 [facility] 10*3/uL [facility] Specimen Blood - VENOUS Performing Organization Address City/State/Zipcode Phone Number [facility] CLIA: [id number] [place] [address] documented in this encounter Visit Diagnoses Diagnosis Hematemesis with nausea - Primary documented in this encounter Administered Medications Medication Order MAR Action Action Date Dose Rate Site dicyclomine (BENTYL) capsule 10 mg Given 07/15/2020 1:54 PM CDT 10 mg 10 mg, Oral, QID, First dose on Sat07/15/20 at 1600, Until Discontinued, Routine Medication Order MAR Action Action Date Dose Rate Site iohexol (OMNIPAQUE 350 BULK-150 Given 07/15/2020 5:15 PM CDT 12 0 mL mL) injection 120 mL 120 mL, Intravenous, ONCE, 1 dose, Sat07/15/20 at 1715, Routine pantoprazole (PROTONIX) 80 mg in NaCl 0.9% Given 07/15/2020 2:4 5 PM CDT 80 mg (NS) 100 mL IV Piggyback 80 mg, IV Piggyback, ONCE, 1 dose, Sat07/15/20 at 1445, 100 mL documented in this encounter Additional Health Concerns Infection Onset Date Last Indicated Resolved Time COVID-19 Rule Out 07/15/2020 07/15/2020 07/15/2020 2: 30 PM CDT documented as of this encounter Insurance Payer Benefit Plan / Subscriber ID Effective Phone Address T ype Group Dates MEDICAID MEDICAID PENDING 2020-[address] Pending [place] [address] documented as of this encounter
--- OUTSIDE RECORDS SUMMARY | 2020-09-07 23:35 | XMS REPORT | Summary of Care ---
:1980 Author Organization [facility] Address [address] [place] [address] Care Team Providers Name Role Phone Pcp, Does Not Have A Primary Care Provider Encounter Details Date Type Department Care Team Description 07/26/2020 Orders Only [facility] Doctor Unassigned, No [address] [facility] Name [place] [id number] [address] [place] [phone] Allergies Active Allergy Reactions Severity Noted Date [...] of 07/26/2020) Active Problems Problem Noted Date Anxiety 04/07/2020 [...] of this encounter Implants Implanted Type Area Glass Enamel Mixer Device Shelf Model / Identifier Expiration Serial / Date Lot Fallope Ring Band, Gyrus #Frb-30 - Sfrb-30 Band N/A: Fallopian Gyrus 09/16/2019 FRB-30 / Implanted: Qty: 1 on 01/06/2018 by Kalen Gutierrez MD at [facility] tube F RB-30 / [id number] documented as of this encounter Procedures Procedure Name Priority Date/Time Associated Diagnosis Comme nts ASSIGNMENT OF BENEFITS Routine 07/26/2020 2:40 PM CDT documented in this encounter Results Not on filedocumented in this encounter Insurance Payer Benefit Plan Subscriber ID Effective Phone Address Typ e / Group Dates [place] [id number] 2020-Pres [phone] [place] [id number] Medicaid WOMEN WOMEN ent [address] [place] [address] MEDICAID MEDICAID PENDING 2020-Pre [address] [employer] P [place] [address] [place] [facility]-RM[facility] [id number] 2020-Pres [phone] [id number] Medicaid WOMEN ent [address] [place] [address] documented as of this encounter
--- OUTSIDE RECORDS SUMMARY | 2020-09-07 23:35 | XMS REPORT | Summary of Care ---
:1980 Author Organization [facility] Address [address] [place] [address] Care Team Providers Name Role Phone Pcp, Does Not Have A Primary Care Provider Reason for Referral Radiology Services (Routine) Status Reason Specialty Diagnoses / Referred By Referred To Procedures Contact Contact New Request Diagnostic Diagnoses Well woman exam [place], Radiology Procedures BI SCREENING MAMMOGRAM BILATERAL VAL CowanP [address] [place] [address]995 Reason for Visit Reason Comments Well Woman Exam Encounter Details Date Type Department Care Team Description [facility]2020 [facility] [place] Well woman exam (Primary Dx); TEJA Parada Encounter for contraceptive management, unspecified type; [address] [place] [address] History o f bilateral tubal ligation; [facility] Screening examination for STD (sexually transmitted disease); [place] [phone] 15 Elevated blood pressure reading without diagnosis [...] Patient requesting for provider to speak to executive secretary social welfare concerning allegations of wanting to hurt herself [...] Bilateral 01/06/2018 Surgeon: Kalen Conner MD; Location: [facility] Social History Socioeconomic History Marital status: Spouse name: Not on file Number of children: Not on file Years of education: Not on file Highest education level: Not on file Occupational History 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 [...] Appointment Radiology Dalia Copeland FNP [address] [place], [place] [address] [phone] Name Type Priority Associated Diagnoses Date/Ti me [...] of this encounter Implants Implanted Type Area Reinspector Device Shelf Model / Identifier Expiration Serial / Date Lot Fallope Ring Band, Gyrus #Frb-30 - Sfrb-30 Band N/A: Fallopian Gyrus 09/16/2019 FRB-30 / Implanted: Qty: 1 on 01/06/2018 by Kalen Gutierrez MD at [facility] tube F RB-30 / [id number] documented as of this encounter Results Not on filedocumented in this encounter Visit Diagnoses Diagnosis Encounter for contraceptive management, unspecified type History of bilateral tubal ligation Elevated blood pressure reading without diagnosis of hypertension documented in this encounter Insurance Payer Benefit Plan Subscriber ID Effective Phone Address Typ e / Group Dates [facility] [id number] 2020-Prese [phone] Medicaid WOMEN nt [address] [place] [address] documented as of this encounter
--- OUTSIDE RECORDS SUMMARY | 2020-09-07 23:36 | XMS REPORT | Summary of Care ---
:1980 Author Organization [facility] Address [address] [place] [address] Care Team Providers Name Role Phone Pcp, Does Not Have A Primary Care Provider Reason for Visit Reason Comments Abnormal Lab HPV+ Encounter Details Date Type Department Care Team Description 08/10/[address] [facility] [address] [place] [address] 110[address] [place], [place] [address] [place] [address]0 [address]55 [phone] Allergies Active Allergy Reactions Severity Noted Date Comments Codeine Shortness of Breath 09/25/2016 Meperidine Hcl Rash 09/25/2016 Marijuana/Cannabinoid Anaphylaxis High 01/06/2018 Sulfa (Sulfonamide Antibiotics) Rash High 7 Tramadol Nausea and/or Vomiting 09/25/2016 documented as of this encounter (statuses as of 08/12/2020) Medications Medication Sig Dispensed Refills Start Date [...] as of this encounter (statuses as of 08/12/2020) Active Problems Problem Noted Date HPV (human papilloma virus) infection 08/10/2020 Overview: HPV+ on 2019 pap smear, patient needs re peat pap smear in 2020. Cervical high risk human papillomavirus (HPV) DNA test positive 08/02/2020 Overview: Awaiting pap smear results History of bilateral tubal ligation 07/26/2020 Elevated [...] as of this encounter (statuses as of 08/12/2020) Resolved Problems Problem Noted Date Resolved Date [...] as of this encounter (statuses as of 08/12/2020) Immunizations Name Administration Dates Next Due Influenza Virus Vaccine Quad IM 3+ YRS 09/26/2017 documented as of this encounter Social History Tobacco Use Types Packs/Day Years Used Date Current Every Day Smoker Cigarettes 0.25 Sta rted: 1998 Smokeless Tobacco: Never Used Comments: Occasional Smoker [...] Signs Not on filedocumented in this encounter Miscellaneous Notes Telephone Encounter - Breanna Martinez LVN - 08/12/2020 7:53 AM Jen Erwinison is a 39 year old female 3rd attempt to call patient, message states you have reached a non working number, letter sent to patient. elephone Encounter - Breanna Martinez LVN - 08/11/2020 3:46 PM Jen Mane Boni is a 39 year old female 2nd attempt to call patient, no answer, message states you have reached a non working number, will try again at a later time. elephone Encounter - Breanna Martinez LVN - 08/11/2020 9:44 AM Jen Mane Boni is a 39 year old female Attempted to call patient, message states number is a non working number, will try again at a later time. elephone Encounter - Dalia Copeland FNP - 08/10/2020 4:21 PM CDTPlease inform patient of normal pap smear however, HPV+ on 2019 pap smear, patient needs repeat pap smear in 2020. documented in this encounter Plan of Treatment Date Type Specialty Care Team Description 08/17/2020 Appointment Radiology Dalia Copeland FNP [address] [place], [place] [address] [phone] Health Maintenance Due Date Last Done Comments PNEUMOCOCCAL 0-64 YEARS COMBINED SERIES (1 of 1 - 1984 PPSV23) Depression Screening 1990 DTaP,Tdap,and Td Vaccines (1 - Tdap) 1997 Breast Cancer Screening (MAMMOGRAM) 2018 INFLUENZA VACCINE (#1) 2020 09/26/2017 PAP SMEAR 07/26/2023 07/26/2020 documented as of this encounter Implants Implanted Type Area Frame Feeder Device Shelf Model / Identifier Expiration Serial / Date Lot Fallope Ring Band, Gyrus #Frb-30 - Sfrb-30 Band N/A: Fallopian Gyrus 09/16/2019 FRB-30 / Implanted: Qty: 1 on 01/06/2018 by Kalen Gutierrez MD at [facility] tube F RB-30 / [id number] documented as of this encounter Results Not on filedocumented in this encounter Insurance Payer Benefit Plan Subscriber ID Effective Phone Address Typ e / Group Dates [facility] [id number] 2020-Pres [phone] [id number] Medicaid WOMEN ent [address] [place] [address] MEDICAID MEDICAID PENDING 2020-Pre [address] [place] [address] documented as of this encounter
--- OUTSIDE RECORDS SUMMARY | 2020-09-07 23:36 | XMS REPORT | Summary of Care ---
:1980 Author Organization [facility] Address [address] [place] [address] Care Team Providers Name Role Phone Pcp, Does Not Have A Primary Care Provider Reason for Visit Reason Comments Abnormal Lab HPV+ Encounter Details Date Type Department Care Team Description 08/10/[address] [facility] Ab normal Lab (HPV+) [facility] [address] [place] [address] 110[address] [place], [place] [address] [place] [address]5 955 [phone] Allergies Active Allergy Reactions Severity Noted Date Comments Codeine Shortness of Breath 09/25/2016 Meperidine Hcl Rash 09/25/2016 Marijuana/Cannabinoid Anaphylaxis High 01/06/2018 Sulfa (Sulfonamide Antibiotics) Rash High 7 Tramadol Nausea and/or Vomiting 09/25/2016 documented as of this encounter (statuses as of 08/10/2020) Medications Medication Sig Dispensed Refills Start Date [...] as of this encounter (statuses as of 08/10/2020) Active Problems Problem Noted Date HPV (human [...] as of this encounter (statuses as of 08/10/2020) Resolved Problems Problem Noted Date Resolved Date [...] as of this encounter (statuses as of 08/10/2020) Immunizations Name Administration Dates Next Due Influenza [...] this encounter Miscellaneous Notes Telephone Encounter - Dalia Copeland FNP - 08/10/2020 4:21 PM CDTPlease inform patient of normal pap smear however, HPV+ on 2019 pap smear, patient needs repeat pap smear in 2020. documented in this encounter Plan of Treatment Date Type Specialty Care Team Description 08/17/2020 Appointment Radiology Dalia Copeland FNP [address] [place] [address] [phone] Health Maintenance Due Date Last Done Comments PNEUMOCOCCAL 0-64 YEARS COMBINED SERIES (1 of 1 - 1984 PPSV23) Depression Screening 1990 DTaP,Tdap,and Td Vaccines (1 - Tdap) 1997 Breast Cancer Screening (MAMMOGRAM) 2018 INFLUENZA VACCINE (#1) 2020 09/26/2017 PAP SMEAR 07/26/2023 07/26/2020 documented as of this encounter Implants Implanted Type Area Dry Cleaning Machine Operator Helper Device Shelf Model / Identifier Expiration Serial / Date Lot Fallope Ring Band, Gyrus #Frb-30 - Sfrb-30 Band N/A: Fallopian Gyrus 09/16/2019 FRB-30 / Implanted: Qty: 1 on 01/06/2018 by Kalen Gutierrez MD at [facility] tube F RB-30 / [id number] documented as of this encounter Results Not on filedocumented in this encounter Insurance Payer Benefit Plan Subscriber ID Effective Phone Address Typ e / Group Dates [facility] [id number] 2020-Pres [phone] [id number] Medicaid WOMEN ent [address] [place] [address] MEDICAID MEDICAID PENDING 2020-Pre [address] ending [place] [address] documented as of this encounter
--- OUTSIDE RECORDS SUMMARY | 2020-09-07 23:36 | XMS REPORT | Summary of Care ---
:1980 Author Organization [facility] Address [address] [place] [address] Care Team Providers Name Role Phone Pcp, Does Not Have A Primary Care Provider Reason for Referral Radiology Services (Routine) Status Reason Specialty Diagnoses / Referred By Referred To Procedures Contact Contact New Request Diagnostic Diagnoses Well woman exam [place], Radiology Procedures BI SCREENING MAMMOGRAM BILATERAL Rosjerrynda R, PRE SCHOOL TEACHER [address] [place] [address] Reason for Visit Radiology Services (Routine) Status Reason Specialty Diagnoses / Referred By Referred To Procedures Contact Contact New Request Diagnostic Diagnoses Well woman exam [place], Radiology Procedures BI SCREENING MAMMOGRAM BILATERAL Roshunda R, PRE SCHOOL TEACHER [address] [place] [address] Encounter Details Date Type Department Care Team Description 08/17/2020 Hospital Encounter [facility] CopelandJosé Miguel undshy R, Arrived Breast Imaging-Angle ton [employer]ER [address] [facility] [address] [place] [address] 955 [place] [address] [phone] Allergies Active Allergy Reactions Severity Noted Date Comments Codeine Shortness of Breath 09/25/2016 Meperidine Hcl Rash 09/25/2016 Marijuana/Cannabinoid Anaphylaxis High 01/06/2018 Sulfa (Sulfonamide Antibiotics) Rash High 7 Tramadol Nausea and/or Vomiting 09/25/2016 documented as of this encounter (statuses as of 08/18/2020) Medications Medication Sig Dispensed Refills Start Date End Date Status sucralfate 1 gram Take 1 tablet by 30 tablet 0 07/15/2020 Active tabletIndications: mouth before Hematemesis with meals and at nausea bedtime. dicyclomine (BENTYL) Take 1 capsule by 30 capsule 0 07/15/2020 Active 10 mg mouth every 8 capsuleIndications: (eight) hours as Hematemesis with needed for nausea Abdominal pain. ondansetron 4 mg Take 1 tablet by 20 tablet 0 07/15/2020 Active disintegrating mouth every 8 tabletIndications: (eight) hours as Hematemesis with needed for Nausea nausea and Vomiting (N/V). documented as of this encounter (statuses as of 08/18/2020) Active Problems Problem Noted Date HPV (human [...] as of this encounter (statuses as of 08/18/2020) Resolved Problems Problem Noted Date Resolved Date Premature rupture of membranes 09/24/2017 8 Premature labor 09/24/2017 04/07/2020 Liveborn infant by vaginal delivery 09/24/2017 0204/2018 36 weeks [...] as of this encounter (statuses as of 08/18/2020) Immunizations Name Administration Dates Next Due Influenza [...] SCREENING MAMMOGRAM IMAGING Routine Well woman exam ON CE for 1 Occurrences BILATERAL starting 2019 until 0 Health Maintenance Due Date Last Done Comments PNEUMOCOCCAL 0-64 YEARS COMBINED SERIES (1 of 1 - 1984 PPSV23) Depression Screening 1990 DTaP,Tdap,and Td Vaccines (1 - Tdap) 1997 Breast Cancer Screening (MAMMOGRAM) 2018 INFLUENZA VACCINE (#1) 2020 09/26/2017 PAP SMEAR 07/26/2023 07/26/2020 documented as of this encounter Implants Implanted Type Area Rn Enterostomal Device Shelf Model / Identifier Expiration Serial / Date Lot Fallope Ring Band, Gyrus #Frb-30 - Sfrb-30 Band N/A: Fallopian Gyrus 09/16/2019 FRB-30 / Implanted: Qty: 1 on 01/06/2018 by Kalen Gutierrez MD at [facility] tube F RB-30 / [id number] documented as of this encounter Results Not on filedocumented in this encounter Visit Diagnoses Diagnosis Well woman exam Routine general medical examination at a health care facility documented in this encounter Insurance Payer Benefit Plan Subscriber ID Effective Phone Address Typ e / Group Dates [place] [id number] 2020-Pres [phone] [address] X Medicaid WOMEN WOMEN nt [address] [place] [address] documented as of this encounter
--- OUTSIDE RECORDS SUMMARY | 2020-09-07 23:36 | XMS REPORT | Summary of Care ---
:1980 Author Organization [facility] Address [address] [place] [address] Care Team Providers Name Role Phone Pcp, Does Not Have A Primary Care Provider Reason for Visit Reason Comments Abnormal Lab HPV+ Encounter Details Date Type Department Care Team Description 08/10/2020 [facility] [place] Ab normal Lab (HPV+) [facility] [place] [facility] [address] [place] [address] 110[address] [place], [place] [address] [place] [address]55 [phone] Allergies Active Allergy Reactions Severity Noted Date Comments Codeine Shortness of Breath 09/25/2016 Meperidine Hcl Rash 09/25/2016 Marijuana/Cannabinoid Anaphylaxis High 01/06/2018 Sulfa (Sulfonamide Antibiotics) Rash High 7 Tramadol Nausea and/or Vomiting 09/25/2016 documented as of this encounter (statuses as of 08/11/2020) Medications Medication Sig Dispensed Refills Start Date [...] as of this encounter (statuses as of 08/11/2020) Active Problems Problem Noted Date HPV (human [...] as of this encounter (statuses as of 08/11/2020) Resolved Problems Problem Noted Date Resolved Date [...] as of this encounter (statuses as of 08/11/2020) Immunizations Name Administration Dates Next Due Influenza [...] Telephone Encounter - Breanna Martinez LVN - 08/11/2020 [...] Care Team Description 08/17/2020 Appointment Radiology Dalia Copeland, CRNP [address] [place], [place] [address] [phone] Health Maintenance Due Date Last Done Comments PNEUMOCOCCAL 0-64 YEARS COMBINED SERIES (1 of 1 - 1984 PPSV23) Depression Screening 1990 DTaP,Tdap,and Td Vaccines (1 - Tdap) 1997 Breast Cancer Screening (MAMMOGRAM) 2018 INFLUENZA VACCINE (#1) 2020 09/26/2017 PAP SMEAR 07/26/2023 07/26/2020 documented as of this encounter Implants Implanted Type Area Home Care Rn Device Shelf Model / Identifier Expiration Serial / Date Lot Fallope Ring Band, Gyrus #Frb-30 - Sfrb-30 Band N/A: Fallopian Gyrus 09/16/2019 FRB-30 / Implanted: Qty: 1 on 01/06/2018 by Kalen Gutierrez MD at [facility] tube F RB-30 / [id number] documented as of this encounter Results Not on filedocumented in this encounter Insurance Payer Benefit Plan Subscriber ID Effective Phone Address Typ e / Group Dates [facility] [id number] 2020-Pres [phone] [id number] Medicaid WOMEN ent [address] [place] [address] MEDICAID MEDICAID PENDING 2020-Pre [address] P [place] [address] documented as of this encounter
--- OUTSIDE RECORDS SUMMARY | 2020-09-07 23:36 | XMS REPORT | Summary of Care ---
:1980 Author Organization [facility] Address [address] [place] [address] Care Team Providers Name Role Phone Pcp, Does Not Have A Primary Care Provider Reason for Visit Reason Comments Abnormal Lab HPV+ Encounter Details Date Type Department Care Team Description 08/10/2020 [facility]phone [facility] Ab normal Lab (HPV+) [facility] [address] [place] [address] 1108 [place], [place] [address] [place] [address]81-8 955 [phone] Allergies Active Allergy Reactions Severity Noted Date [...] Breanna Martinez LVN - 08/11/2020 9:44 AM CDTBrantoni Alhaji Plata is a 39 year old female Attempted to call patient, message states number is a non working number, will try again at a later time. elephone Encounter - Dalia Copeland FNP - 08/10/2020 4:21 PM CDTPlease inform patient of normal pap smear however, HPV+ on 2020 pap smear, patient needs repeat pap smear in 2020. documented in this encounter Plan of Treatment Date Type Specialty Care Team Description 08/17/2020 Appointment Radiology Dalia Copeland FNP [address] [place], [place] [address] [phone] Health Maintenance Due Date Last Done Comments PNEUMOCOCCAL 0-64 YEARS COMBINED SERIES (1 - 1984 PPSV23) Depression Screening 1990 DTaP,Tdap,and Td Vaccines (1 - Tdap) 1997 Breast Cancer Screening (MAMMOGRAM) 2018 INFLUENZA VACCINE (#1) 2020 09/26/2017 PAP SMEAR 07/26/2023 07/26/2020 documented as of this encounter Implants Implanted Type Area Project Economist Device Shelf Model / Identifier Expiration Serial / Date Lot Fallope Ring Band, Gyrus #Frb-30 - Sfrb-30 Band N/A: Fallopian Gyrus 09/16/2019 FRB-30 / Implanted: Qty: 1 on 01/06/2018 by Kalen Gutierrez MD at [facility] tube F RB-30 / [id number] documented as of this encounter Results Not on filedocumented in this encounter Insurance Payer Benefit Plan Subscriber ID Effective Phone Address Typ e / Group Dates [facility] [id number] 2020-Pres [phone] [id number] Medicaid WOMEN ent [address] [place] [address] MEDICAID MEDICAID PENDING 2020-Pre [address] P ending [place] [address] documented as of this encounter
== END 2020-09-03 23:48 | disposition home or self-care (01) ==
LOC: ER 19:04
DX: F10.929 Alcohol use, unspecified with intoxication, unspecified (principal); F17.210 Nicotine dependence, cigarettes, uncomplicated; Z88.2 Allergy status to sulfonamides; Z88.5 Allergy status to narcotic agent
CPT/HCPCS: 36415; 70450; 71045; 80048; 80076; 80307; 80320; 81003; 81025; 82550; 82553; 83690; 83735; 84484; 85025; 85610; 85730; 93005; 99284; J7030

== ENCOUNTER 2020-11-04 23:06 | Emergency (ER) | payer SELFPAY ==
--- OUTSIDE RECORDS SUMMARY | 2020-11-04 23:09 | XMS REPORT | Summary of Care ---
:1980 Author Organization [facility] Address [address] [place] [address] Care Team Providers Name Role Phone Pcp, Does Not Have A Primary Care Provider Reason for Visit Reason Comments Abnormal Lab HPV+ Encounter Details Date Type Department Care Team Description 08/10/2020 [facility]phone [facility] Ab normal Lab (HPV+) [facility] [address] [place] [address] 1108 [place], [place] [address] [place] [address]-9 955 [phone] Allergies Active Allergy Reactions Severity Noted Date [...] Appointment Radiology Dalia Copeland FNP [address] [place], [place] [address] [phone] Health Maintenance Due Date Last Done Comments PNEUMOCOCCAL 0-64 YEARS COMBINED SERIES (1 of 1 - 1984 PPSV23) Depression Screening 1990 DTaP,Tdap,and Td Vaccines (1 - Tdap) 1997 Breast Cancer Screening (MAMMOGRAM) 2018 INFLUENZA VACCINE (#1) 2020 09/26/2017 PAP SMEAR 07/26/2023 07/26/2020 documented as of this encounter Implants Implanted Type Area Director Of Field Sales Device Shelf Model / Identifier Expiration Serial / Date Lot Fallope Ring Band, Gyrus #Frb-30 - Sfrb-30 Band N/A: Fallopian Gyrus 09/16/2019 FRB-30 / Implanted: Qty: 1 on 01/06/2018 by Kalen Gutierrez MD at [facility] tube F RB-30 / [id number] documented as of this encounter Results Not on filedocumented in this encounter Insurance Payer Benefit Plan Subscriber ID Effective Phone Address Typ e / Group Dates [facility] [id number] 2020-Pres [phone] [id number] Medicaid WOMEN ent [address] [place] [address] MEDICAID MEDICAID PENDING 2020-Pre [address] P ending [place] [address] documented as of this encounter
--- OUTSIDE RECORDS SUMMARY | 2020-11-04 23:09 | XMS REPORT | Summary of Care ---
:1980 Author Organization [facility] Address [address] [place] [address] Care Team Providers Name Role Phone Pcp, Does Not Have A Primary Care Provider Reason for Visit Reason Comments Abnormal Lab HPV+ Encounter Details Date Type Department Care Team Description 08/10/2020 [facility]phone [facility] Ab normal Lab (HPV+) [facility] [address] [place] [address] 1108 [place], [place] [address] [place] [address]-0 955 [phone] Allergies Active Allergy Reactions Severity Noted Date [...] Team Description 08/17/2020 Appointment Radiology Dalia Copeland, PROCESS ENVIRONMENTAL TECHNICIAN [address] [place], [place] [address] [phone] Health Maintenance Due Date Last Done Comments PNEUMOCOCCAL 0-64 YEARS COMBINED SERIES (1 of 1 - 1984 PPSV23) Depression Screening 1990 DTaP,Tdap,and Td Vaccines (1 - Tdap) 1997 Breast Cancer Screening (MAMMOGRAM) 2018 INFLUENZA VACCINE (#1) 2020 09/26/2017 PAP SMEAR 07/26/2023 07/26/2020 documented as of this encounter Implants Implanted Type Area Recreation Assistant Device Shelf Model / Identifier Expiration Serial / Date Lot Fallope Ring Band, Gyrus #Frb-30 - Sfrb-30 Band N/A: Fallopian Gyrus 09/16/2019 FRB-30 / Implanted: Qty: 1 on 01/06/2018 by Kalen Gutierrez MD at [facility] tube F RB-30 / [id number] documented as of this encounter Results Not on filedocumented in this encounter Insurance Payer Benefit Plan Subscriber ID Effective Phone Address Typ e / Group Dates [facility] [id number] 2020-Pres [phone] [id number] Medicaid WOMEN ent [address] [place] [address] MEDICAID MEDICAID PENDING 2020-Pre [address] [place] P ending [place] [address] documented as of this encounter
--- OUTSIDE RECORDS SUMMARY | 2020-11-04 23:09 | XMS REPORT | Continuity of Care Document ---
:1980 Author Organization [facility] Address [address] [place] [address] Care Team Providers Name Role Phone Itzel Mckinney Attending Clinician Payers Payer Name Policy Type Policy Number Effective Date Expiration Date S ource Problems This patient has no known problems. Allergies, Adverse Reactions, Alerts Allergy Allergy Status Severity Reaction(s) Onset Inactive Treating Comm ents Source Name Type Date Date Clinician meperidi DA Active [place] 2019- [facility] ne HCl 3-18 [place] 00:00: [address] Sulfa [place] Active [place] [facility] (Sulfona 3-18 [place] mide 00:00: Regiona Antibiot 00 l [facility] codeine DA Active [place] [facility] 3-18 [place] 00:00: [address] meperidi [place] Active [place] [facility] ne HCl 8-26 [place] 00:00: [address] Sulfa [place] [facility] (Sulfona 8-26 [place] mide 00:00: Regiona Antibiot l [facility]) [facility] jessica Romo [place] [facility] 8-26 [place] 00:00: [address] Medications This patient has no known medications. Procedures This patient has no known procedures. Encounters Start End Encounter Admission Attending Care Care Encounter Source Date/Time Date/Time Type Type Clinicians Facility Department ID 2020-08-17 2020-08-17 [facility] Min [facility] [id number] 06:29:56 23:59:00 Encounter Dalia Robbins SPECIALTY [id number] [facility] [id number] CENTER AT [id number] [facility] 815 [facility] 2020-08-10 2020-08-10 Telephone Min [facility] [id number] 00:00:00 00:00:00 Dalia Robbins CHILDCARE PROVIDER [id number] [facility] [id number] MATERNAL [id number] & CHILD [address] [place] [address] 2020-04-04 2020-04-04 Emergency E MHBL [id number] [...] = ALKP) Specimen comments: ccSpecimen comments: SEPSIS [id number] 17:09:00 Test Item Value Reference Range Interpretation Comments LIPASE (test code = LIP) 318 Unit/L 114-286 H Specimen comments: ccSpecimen comments: SEPSIS [id number] 17:09:00 Test Item Value Reference Range Interpretation [...] change s in troponin levelscharacter istic of [place]. Specimen comments: ccSpecimen comments: SEPSIS WORKUPPROCALCITONIN (PCT) [...] = ALKP) Specimen comments: ccSpecimen comments: SEPSIS [id number] 17:03:00 Test Item Value Reference Range Interpretation Comments LIPASE (test code = LIP) 318 Unit/L 114-286 H Specimen comments: ccSpecimen comments: SEPSIS [id number] 17:03:00 Test Item Value Reference Range Interpretation [...] change s in troponin levelscharacter istic of [place]. Specimen comments: ccSpecimen comments: SEPSIS WORKUPPROCALCITONIN (PCT) 2020-02-17 17:03:00 Test Item Value Reference Range Interpretation Comments PROCALCITONIN (PCT) (test code = NG/ML 0.00-0.10 PROCAL) Specimen comments: ccSpecimen comments: SEPSIS WORKUPLACTIC [id number] 17:01:00 Test Item Value Reference Range Interpretation Comments LACTIC ACID (test code = LACT) 1.4 mmol/L 0.4-2.0 N Specimen comments: ccBASIC METABOLIC [id number] 16:58:00 Test Item Value Reference Range Interpretation [...] = ALKP) Specimen comments: ccSpecimen comments: SEPSIS [id number] 16:58:00 Test Item Value Reference Range Interpretation Comments LIPASE (test code = LIP) 318 Unit/L 114-286 H Specimen comments: ccSpecimen comments: SEPSIS [id number] 16:58:00 Test Item Value Reference Range Interpretation [...] HE NEGATIVERESULT DOES NOT RULE OUT THE [place] ESENCE OF STREP GROUP A.W HEN STREP GROUP A ANTIGEN IS DETECTED, THE P OSITIVE RESULTIS SIGNIF ICANT. NEGATIVE RESULT S REFLEX A CULTURE. FORNE GATIVE RESULTS A CULTU RE IS IN PROGRESS, RESUL T TO FOLLOW. HCG SERUM [id number] 16:55:00 Test Item Value Reference Range Interpretation Comments HCG SERUM QUAL (test code = HCGQL) NEG SCREEN NEG Specimen comments: SEPSIS WORKUP- XR CHEST 2 [id number] 16:55:00 FAX: Julia Sanz [phone] [place]: E St: PRE Patient Name: JAIDEN ALVARADO Unit No: [id number] EXAMS: CPT CODE: [id number] XR CHEST 2 V 27710 PA and lateral views of the chest [...] 02/17/2020 (1657) KILLIAN Crawford NAME: JAIDEN ALVARADO [address] [place] [address] PHYS: SHAYNA Julia [place], [place] [address] : 1980 AGE: 39 SEX: F LOC: [facility].ERS PHONE #: [phone] EXAM DATE: 02/17/2020 STATUS: PRE ER FAX #: [phone] RAD NO: DC Dt: PAGE 1 Signed ReportUA RFLX MICR CULT IF [id number] 16:51:00 Test Item Value Reference Range Interpretation [...] Sepsis-no other srcUA RFLX MICR CULT IF [id number] 16:47:00 Test Item Value Reference Range Interpretation [...] for culture: Sev. Sepsis-no other srcCBC W/AUTO [id number] 16:45:00 Test Item Value Reference Range Interpretation [...]
--- OUTSIDE RECORDS SUMMARY | 2020-11-04 23:09 | XMS REPORT | Summary of Care ---
:1980 Author Organization [facility] Address [address] [place] [address] Care Team Providers Name Role Phone Pcp, Does Not Have A Primary Care Provider Reason for Visit Reason Comments Abnormal Lab HPV+ Encounter Details Date Type Department Care Team Description 08/10/2020 [facility] Ab normal Lab (HPV+) [facility] [address] [place] [address] 1108 [place], [place] [address] [place] [address] 63898-5 955 [phone] Allergies Active Allergy Reactions Severity Noted Date [...] Appointment Radiology Dalia Copeland FNP [address] [place] [address] [phone] Health Maintenance Due Date Last Done Comments PNEUMOCOCCAL 0-64 YEARS COMBINED SERIES (1 of 1 - 1984 PPSV23) Depression Screening 1990 DTaP,Tdap,and Td Vaccines (1 - Tdap) 1997 Breast Cancer Screening (MAMMOGRAM) 2018 INFLUENZA VACCINE (#1) 2020 09/26/2017 PAP SMEAR 07/26/2023 07/26/2020 documented as of this encounter Implants Implanted Type Area It Quality Analyst Device Shelf Model / Identifier Expiration Serial / Date Lot Fallope Ring Band, Gyrus #Frb-30 - Sfrb-30 Band N/A: Fallopian Gyrus 09/16/2019 FRB-30 / Implanted: Qty: 1 on 01/06/2018 by Kalen Gtuierrez MD at [facility] tube F RB-30 / [id number] documented as of this encounter Results Not on filedocumented in this encounter Insurance Payer Benefit Plan Subscriber ID Effective Phone Address Typ e / Group Dates [facility] [id number] 2020-Pres [phone] [id number] Medicaid WOMEN ent [address] [place] [address] MEDICAID MEDICAID PENDING 2020-Pre [address] P ending [place] [address] documented as of this encounter
--- OUTSIDE RECORDS SUMMARY | 2020-11-04 23:09 | XMS REPORT | Summary of Care ---
:1980 Author Organization [facility] Address [address] [place] [address] Care Team Providers Name Role Phone Pcp, Does Not Have A Primary Care Provider Reason for Visit Reason Comments Abnormal Lab HPV+ Encounter Details Date Type Department Care Team Description 08/10/2020 [facility]phone [facility] Ab normal Lab (HPV+) [facility] [address] [place] [address] 1108 [place], [place] [address] [place] [address]67[address]-9 955 [phone] Allergies Active Allergy Reactions Severity Noted Date [...] Appointment Radiology Dalia Copeland FNP [address] [place], [place] [address] [phone] Health Maintenance Due Date Last Done Comments PNEUMOCOCCAL 0-64 YEARS COMBINED SERIES (1 - 1984 PPSV23) Depression Screening 1990 DTaP,Tdap,and Td Vaccines (1 - Tdap) 1997 Breast Cancer Screening (MAMMOGRAM) 2018 INFLUENZA VACCINE (#1) 2020 09/26/2017 PAP SMEAR 07/26/2023 07/26/2020 documented as of this encounter Implants Implanted Type Area Rotary Rig Engine Operator Device Shelf Model / Identifier Expiration Serial / Date Lot Fallope Ring Band, Gyrus #Frb-30 - Sfrb-30 Band N/A: Fallopian Gyrus 09/16/2019 FRB-30 / Implanted: Qty: 1 on 01/06/2018 by Kalen Gutierrez MD at [facility] tube F RB-30 / [id number] documented as of this encounter Results Not on filedocumented in this encounter Insurance Payer Benefit Plan Subscriber ID Effective Phone Address Typ e / Group Dates [facility] [id number] 2020-Pres [phone] [id number] Medicaid WOMEN ent [address] [place] [address] MEDICAID MEDICAID PENDING 2020-Pre 301 [employer] P ending [place] [address] documented as of this encounter
--- OUTSIDE RECORDS SUMMARY | 2020-11-04 23:10 | XMS REPORT | Summary of Care ---
:1980 Author Organization [facility] Address [address] [place] [address] Care Team Providers Name Role Phone Pcp, Does Not Have A Primary Care Provider Reason for Referral Radiology Services (Routine) Status Reason Specialty Diagnoses / Referred By Referred To Procedures Contact Contact New Request Diagnostic Diagnoses Well woman exam Copeland, Radiology Procedures BI SCREENING MAMMOGRAM BILATERAL Rosjerrynda R, LEARNING SOLUTIONS SPECIALIST [address] [place] [address] Reason for Visit Radiology Services (Routine) Status Reason Specialty Diagnoses / Referred By Referred To Procedures Contact Contact New Request Diagnostic Diagnoses Well woman exam Copeland, Radiology Procedures BI SCREENING MAMMOGRAM BILATERAL Roshunda R, LEARNING SOLUTIONS SPECIALIST [address] [place] [address] Encounter Details Date Type Department Care Team Description 08/17/2020 Hospital Encounter [facility] Mobile Van CopelandJosé Miguel undshy R, Arrived Breast Imaging-Angle ton LEARNING SOLUTIONS SPECIALIST 1108 [facility] [address] [place] [address] 955 [place] [address] [phone] Allergies Active Allergy Reactions Severity Noted Date [...] of this encounter Implants Implanted Type Area Carbon Furnace Operator Device Shelf Model / Identifier Expiration Serial / Date Lot Fallope Ring Band, Gyrus #Frb-30 - Sfrb-30 Band N/A: Fallopian Gyrus 09/16/2019 FRB-30 / Implanted: Qty: 1 on 01/06/2018 by Kalen Gutierrez MD at [facility] tube F RB-30 / [id number] documented as of this encounter Results Not on filedocumented in this encounter Visit Diagnoses Diagnosis Well woman exam Routine general medical examination at a health care facility documented in this encounter Insurance Payer Benefit Plan Subscriber ID Effective Phone Address Typ e / Group Dates [facility] [place] [facility] [place] [id number] 2020-Pres [phone] P O JESS X Medicaid WOMEN WOMEN nt [address] [place] [address] documented as of this encounter
[2020-11-05] MEDS ORDERED: IBUPROFEN 200 MG TAB PO ONE (03:19)
[2020-11-05] MEDS ORDERED: TETANUS & DIPHTHERIA TOX,ADULT 0.5 ML VIAL ONE (05:34)
[2020-11-05] MEDS ORDERED: LIDOCAINE 1% MPF 30 ML VIAL ONE (06:01)
[2020-11-05] MEDS ORDERED: LIDOCAINE 1% MPF 5 ML VIAL ONE ×2 (06:02→06:10)
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
[2020-11-05] MEDS ORDERED: CEFTRIAXONE 250 MG/VIAL ONE (06:54)
[2020-11-05] MEDS ORDERED: LIDOCAINE 1% MPF 2 ML AMPULE ONE (06:54)
[2020-11-05] MEDS ORDERED: ONDANSETRON 4 MG (ODT) TAB ONE (06:54)
[2020-11-05] MEDS ORDERED: metroNIDAZOLE 500 MG TABLET ONE (06:54)
[2020-11-05] MEDS ORDERED: AZITHROMYCIN 250 MG TAB ONE (06:54)
--- NOTE | 2020-11-05 08:36 | RAD REPORT ---
EXAM DESCRIPTION: RAD - Hand Right 3 View - 11/05/2020 5:35 am CLINICAL HISTORY: Right hand pain status post injury FINDINGS: No fracture or dislocation is seen.
[2020-11-10 01:03] VITALS: TEMP 98.2; O2SAT 100
[2020-11-10 01:05] VITALS: BP 122/79
== END 2020-11-05 07:07 | disposition home or self-care (01) ==
LOC: ER 23:06
PROC: 0JQK0ZZ Repair Left Hand Subcutaneous Tissue and Fascia, Open Approach (ICD-10-PCS; principal; 2020-11-05)
PROC: 0JQG0ZZ Repair Right Lower Arm Subcutaneous Tissue and Fascia, Open Approach (ICD-10-PCS; 2020-11-05)
DX: S61.412A Laceration without foreign body of left hand, initial encounter (principal); S51.811A Laceration without foreign body of right forearm, initial encounter; Y09 Assault by unspecified means; Z23 Encounter for immunization; Z88.2 Allergy status to sulfonamides; Z88.5 Allergy status to narcotic agent
CPT/HCPCS: 90471; 90714; 96372; 99284; J0696; J2001

== ENCOUNTER 2021-05-05 19:37 | Emergency (ER) | payer SELFPAY ==
--- OUTSIDE RECORDS SUMMARY | 2021-05-05 19:41 | XMS REPORT | Continuity of Care Document ---
:1980 Author Organization [facility] t Address [address] [place] [place] [address] Care Team Providers Name Role Phone Abdias Perea MD Attending Clinician Anish Hollis MD Attending Clinician Min LEZAMA R Attending Clinician Payers Payer Name Policy Type Policy Number Effective Date Expiration Date S ource Problems This patient has no known problems. Allergies, Adverse Reactions, Alerts Allergy Allergy Status Severity Reaction(s) Onset Inactive Treating Comm ents Source Name Type Date Date Clinician meperidi DA Active [place] 2020-0 [facility] 3[facility]18 [place] [facility] Sulfa DA Active [place] 2020-0 [facility] (Sulfona 3-18 [place] m[facility] codeine DA Active [place] [facility] 3-18 [place] 00:[facility]: [facility] meperidi DA Active [facility] ne HCl 8-26 [place] 00:00: [facility] Sulfa DA Active [place] [facility] (Sulfona 8-26 [place] mide 00:00[facility] codeine DA Active [place] [facility] 8-26 [place] 00:00: [facility] Medications This patient has no known medications. Procedures This patient has no known procedures. Encounters Start End Encounter Admission Attending Care Care Encounter Source Date/Time Date/Time Type Type Clinicians Facility Department ID 2020-12-25 2020-12-26 Emergency Brit, TRAUMA [id number] 18:26:00 04:04:00 [facility] [id number] 2020-12-25 2020-12-25 Emergency [facility] [id number] 10:03:00 18:22:00 [facility] [id number] [facility] [id number] [address] ([facility]) 2020-08-17 2020-08-17 [facility] [id number] 06:29:56 23:59:00 Encounter Dalia Robbins SPECIALTY [id number] [facility] [id number] CENTER AT [id number] [place] [address] 2020-08-10 2020-08-10 On license of [facility] [id number] 00:00:00 00:00:00 Dalia Robbins PROCESS TRAINER [id number] [facility] [id number] MATERNAL [id number] & CHILD [address] [place] [address] 2020-04-04 2020-04-04 Emergency E [facility] [id number] [facility] 16:52:00 16:52:00 2019-08-07 2019-08-07 Emergency E [facility]Y [facility] 7503 [facility] 13:27:00 13:27:00 2019-04-08 2019-04-08 Emergency E [facility] 7502 [facility] 14:22:00 14:22:00 2019-03-31 2019-03-31 Emergency E [facility] 7501 [facility] 14:37:00 14:37:00 Results Test Description Test Time [...] = ALKP) Specimen comments: ccSpecimen comments: SEPSIS [id number] 17:09:00 Test Item Value Reference Range Interpretation Comments LIPASE (test code = LIP) 318 Unit/L 114-286 H Specimen comments: ccSpecimen comments: SEPSIS [id number] 17:09:00 Test Item Value Reference Range Interpretation [...] change s in troponin levelscharacter istic of GA. Specimen comments: ccSpecimen comments: SEPSIS WORKUPPROCALCITONIN (PCT) [...] = ALKP) Specimen comments: ccSpecimen comments: SEPSIS [id number] 17:03:00 Test Item Value Reference Range Interpretation Comments LIPASE (test code = LIP) 318 Unit/L 114-286 H Specimen comments: ccSpecimen comments: SEPSIS [id number] 17:03:00 Test Item Value Reference Range Interpretation [...] change s in troponin levelscharacter istic of GA. Specimen comments: ccSpecimen comments: SEPSIS WORKUPPROCALCITONIN (PCT) 2020-02-17 17:03:00 Test Item Value Reference Range Interpretation Comments PROCALCITONIN (PCT) (test code = NG/ML 0.00-0.10 PROCAL) Specimen comments: ccSpecimen comments: SEPSIS WORKUPLACTIC [id number] 17:01:00 Test Item Value Reference Range Interpretation Comments LACTIC ACID (test code = LACT) 1.4 mmol/L 0.4-2.0 N Specimen comments: ccBASIC METABOLIC [id number] 16:58:00 Test Item Value Reference Range Interpretation [...] = ALKP) Specimen comments: ccSpecimen comments: SEPSIS [id number] 16:58:00 Test Item Value Reference Range Interpretation Comments LIPASE (test code = LIP) 318 Unit/L 114-286 H Specimen comments: ccSpecimen comments: SEPSIS [id number] 16:58:00 Test Item Value Reference Range Interpretation [...] HE NEGATIVERESULT DOES NOT RULE OUT THE CO ESENCE OF STREP GROUP A.W HEN STREP GROUP A ANTIGEN IS DETECTED, THE P OSITIVE RESULTIS SIGNIF ICANT. NEGATIVE RESULT S REFLEX A CULTURE. FORNE GATIVE RESULTS A CULTU RE IS IN PROGRESS, RESUL T TO FOLLOW. HCG SERUM [id number] 16:55:00 Test Item Value Reference Range Interpretation Comments HCG SERUM QUAL (test code = HCGQL) NEG SCREEN NEG Specimen comments: SEPSIS WORKUP- XR CHEST 2 [id number] 16:55:00 FAX: Julia Sanz [phone] [place]: E St: PRE Patient Name: JAIDEN ALVARADO Unit No: [id number] EXAMS: CPT CODE: [id number] XR CHEST 2 V 35731 PA and lateral views of the chest [...] 02/17/2020 (1657) KILLIAN Crawford NAME: JAIDEN ALVARADO [address] [place] [address] PHYS: Julia Rasm[place], [place] [address] : 1980 AGE: 39 SEX: F LOC: [facility] PHONE #: [phone] EXAM DATE: 02/17/2020 STATUS: PRE ER FAX #: [phone] RAD NO: DC Dt: PAGE 1 Signed ReportUA RFLX MICR CULT IF [id number] 16:51:00 Test Item Value Reference Range Interpretation [...] Sepsis-no other srcUA RFLX MICR CULT IF [id number] 16:47:00 Test Item Value Reference Range Interpretation [...] (test code 6.0 pH UNITS 4.6-8.0 = BAAL) UA PROTEIN DIPSTICK (test NEGATIVE (0) mg/dL [...] for culture: Sev. Sepsis-no other srcCBC W/AUTO [id number] 16:45:00 Test Item Value Reference Range Interpretation [...]
--- NOTE | 2021-05-05 21:17 | RAD REPORT ---
EXAM DESCRIPTION: RAD - Foot Right 3 View - 05/05/2021 9:04 pm CLINICAL HISTORY: Right foot pain FINDINGS: No fracture or dislocation is seen. No bone or joint abnormality noted
[2021-05-05] MEDS ORDERED: IBUPROFEN 400 MG TAB ONE (21:36)
[2021-05-05] MEDS ORDERED: ONDANSETRON 4 MG (ODT) TAB ONE (21:36)
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
--- NOTE | 2021-05-05 21:45 | EDPHYS ---
Physician Documentation [facility] Name: Gabrielle Plata Age: 40 yrs Sex: Female : 1980 Arrival Date: 05/05/2021 Time: 19:40 Bed 13 Private MD: ED Physician Chapo Florez HPI: 05/06 06:49 This 40 yrs old Female presents to ER via Ambulatory with complaints of Foot tw4 Pain. 06:49 The patient presents with a contusion, an injury. The complaints affect the left foot. tw4 Context: The problem was sustained at home. Onset: The symptoms/episode began/occurred today. Modifying factors: The symptoms are alleviated by nothing, the symptoms are aggravated by nothing. Severity of symptoms: At their worst the symptoms were moderate, in the emergency department the symptoms are unchanged. The patient has not experienced similar symptoms in the past. 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 - Social history:: Smoking status: unknown. ROS: 05/06 06:49 MS/extremity: Positive for injury or acute deformity, contusion. tw4 Constitutional: Negative for fever, chills, and weight loss, Eyes: Negative for injury, pain, redness, and discharge, Cardiovascular: Negative for chest pain, palpitations, and edema, Respiratory: Negative for shortness of breath, cough, wheezing, and pleuritic chest pain, Abdomen/GI: Negative for abdominal pain, nausea, vomiting, diarrhea, and constipation, Back: Negative for injury and pain, MS/Extremity: Negative for injury and deformity, Skin: Negative for injury, rash, and discoloration, Neuro: Negative for headache, weakness, numbness, tingling, and seizure. Exam: 06:49 Constitutional: This is a well developed, well nourished patient who is awake, alert, tw4 and in no acute distress. Head/Face: Normocephalic, atraumatic. Chest/axilla: Normal chest wall appearance and motion. Nontender with no deformity. No lesions are appreciated. Cardiovascular: Regular rate and rhythm with a normal S1 and S2. No gallops, murmurs, or rubs. Normal PMI, no JVD. No pulse deficits. Respiratory: Lungs have equal breath sounds bilaterally, clear to auscultation and percussion. No rales, rhonchi or wheezes noted. No increased work of breathing, no retractions or nasal flaring. Abdomen/GI: Soft, non-tender, with normal bowel sounds. No distension or tympany. No guarding or rebound. No evidence of tenderness throughout. Back: No spinal tenderness. No costovertebral tenderness. Full range of motion. 06:49 Musculoskeletal/extremity: Extremities: noted in the left second toe and left third toe: contusion. Vital Signs: 05/05 19:47 BP 147 / 92; Pulse 107; Resp 16 S; Temp 98.4(O); Pulse Ox 99% on R/A; Weight 49.9 kg bb (R); Height 5 ft. 0 in. (152.40 cm) (R); Pain 7/10; 20:12 BP 156 / 108; Pulse 88; Resp 16; Pulse Ox 100% on R/A; vg1 21:08 BP 111 / 91; Pulse 70; Resp 14; Pulse Ox 100% on R/A; vg1 19:47 Body Mass Index 21.48 (49.90 kg, 152.40 cm) bb MDM: 20:03 Patient medically screened. tw4 05/06 06:50 Differential diagnosis: fracture, sprain. Data reviewed: vital signs, nurses notes. tw4 Data interpreted: Pulse oximetry: Interpretation: normal. Counseling: I had a detailed discussion with the patient and/or guardian regarding: the historical points, exam findings, and any diagnostic results supporting the discharge/admit diagnosis. 05/05 20:45 Order name: Foot Right 3 View XRAY; Complete Time: 21:36 tw4 Administered Medications: 05/05 21:20 Drug: Ibuprofen 800 mg Route: PO; vg1 22:06 Follow up: Response: Adverse reaction, Physician notified vg1 21:21 Drug: Ondansetron 4 mg Route: PO; vg1 22:06 Follow up: Response: Nausea is decreased vg1 Disposition: 05/05/21 21:44 Discharged to Home. Impression: Other sprain of right foot. - Condition is Stable. - Discharge Instructions: Foot Sprain. - Prescriptions for ketorolac 10 mg Oral tablet - take 1 tablet by ORAL route every 4-6 hours not to exceed 40 mg in 24hrs; 20 tablet. - Medication Reconciliation Form, Thank You Letter, Antibiotic Education, Prescription Opioid Use form. - Follow up: Private Physician; When: Upon discharge from the Emergency Department; Reason: Recheck today's complaints, Continuance of care, Re-evaluation by your physician. - Problem is new. - Symptoms have improved. Signatures: Dispatcher [employer] EDMS Kelly Dickens RN RN Guido Wang RN RN jb4 Chapo Florez MD MD tw4 Steph Anthony RN RN vg1 Corrections: (The following items were deleted from the chart) 21:58 21:44 05/05/2021 21:44 Discharged to Home. Impression: Other sprain of right foot. jb4 Condition is Stable. Forms are Medication Reconciliation Form, Thank You Letter, Antibiotic Education, Prescription Opioid Use. Follow up: Private Physician; When: Upon discharge from the Emergency Department; Reason: Recheck today's complaints, Continuance of care, Re-evaluation by your physician. Problem is new. Symptoms have improved. tw4
[2021-05-05 22:30] VITALS: TEMP 98.4
[2021-05-05 22:31] VITALS: O2SAT 100
[2021-05-05 22:32] VITALS: BP 111/91
== END 2021-05-05 21:58 | disposition home or self-care (01) ==
LOC: ER 19:37
DX: S93.691A Other sprain of right foot, initial encounter (principal); X58.XXXA Exposure to other specified factors, initial encounter; K50.90 Crohn's disease, unspecified, without complications
CPT/HCPCS: 99284

== ENCOUNTER 2021-07-14 20:04 | Emergency (ER) | payer SELFPAY ==
--- OUTSIDE RECORDS SUMMARY | 2021-07-14 20:09 | XMS REPORT | Continuity of Care Document ---
:1980 Author Organization [facility] t Address [address] [place] [address] Care Team Providers Name Role Phone Abdias [...] Active [place] 2020-0 [facility] [place] [facility] Sulfa DA Active [place] 2020-0 [facility] (Sulfona 3-18 [place] mide 00:[facility]: [facility] codeine DA Active [place] 2020-0 [facility] 3[facility]18 [place] 00:[facility]: [facility] meperidi DA Active [facility] ne HCl - [place] [facility] Sulfa DA Active [place] [facility] (Sulfona 07-27 [place] mide 00:00: [facility] Antibiot 00 l [facility] codeine DA Active [place] [facility] 8- [place] 00:00: [facility] 00 [facility] Center Medications This patient has no known medications. Procedures This patient has no known procedures. Encounters Start End Encounter Admission Attending Care Care Encounter Source Date/Time Date/Time Type Type Clinicians Facility Department ID 2020-12-25 2020-12-26 Emergency Brit, TRAUMA [id number] 18:26:00 04:04:00 [facility] [id number] 2020-12-25 2020-12-25 Emergency [facility] [id number] 10:03:00 18:22:00 [facility] [id number] [facility] [id number] [facility] [id number] [address] ([facility]) 2020-08-17 2020-08-17 [facility] [id number] 06:29:56 23:59:00 Encounter Dalia Robbins SPECIALTY [id number] [facility] [id number] CENTER AT [id number] [place] [facility] 2020-08-10 2020-08-10 Telephone [facility] [id number] 00:00:00 00:00:00 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 [id number] [facility] [id number] MATERNAL [id number] & CHILD [address] [place] [address] 2020-04-04 2020-04-04 Emergency E [facility]BL [facility]BL [id number] MHBL 16:52:00 16:52:00 2019-08-07 2019-08-07 Emergency E MHCY MHCY 7503 MHCY 13:27:00 13:27:00 2019-04-08 2019-04-08 Emergency E MHCY MHCY 7502 MHCY 14:22:00 14:22:00 2019-03-31 2019-03-31 [id number] 14:37:00 14:37:00 Results Test Description [...] = ALKP) Specimen comments: ccSpecimen comments: SEPSIS [id number] 17:09:00 Test Item Value Reference Range Interpretation Comments LIPASE (test code = LIP) 318 Unit/L 114-286 H Specimen comments: ccSpecimen comments: SEPSIS [id number] 17:09:00 Test Item Value Reference Range Interpretation [...] change s in troponin levelscharacter istic of [place]. Specimen comments: ccSpecimen comments: SEPSIS WORKUPPROCALCITONIN (PCT) [...] = ALKP) Specimen comments: ccSpecimen comments: SEPSIS [id number] 17:03:00 Test Item Value Reference Range Interpretation Comments LIPASE (test code = LIP) 318 Unit/L 114-286 H Specimen comments: ccSpecimen comments: SEPSIS [id number] 17:03:00 Test Item Value Reference Range Interpretation [...] change s in troponin levelscharacter istic of [place]. Specimen comments: ccSpecimen comments: SEPSIS WORKUPPROCALCITONIN (PCT) 2020-02-17 17:03:00 Test Item Value Reference Range Interpretation Comments PROCALCITONIN (PCT) (test code = NG/ML 0.00-0.10 PROCAL) Specimen comments: ccSpecimen comments: SEPSIS WORKUPLACTIC [id number] 17:01:00 Test Item Value Reference Range Interpretation Comments LACTIC ACID (test code = LACT) 1.4 mmol/L 0.4-2.0 N Specimen comments: ccBASIC METABOLIC [id number] 16:58:00 Test Item Value Reference Range Interpretation [...] = ALKP) Specimen comments: ccSpecimen comments: SEPSIS [id number] 16:58:00 Test Item Value Reference Range Interpretation Comments LIPASE (test code = LIP) 318 Unit/L 114-286 H Specimen comments: ccSpecimen comments: SEPSIS [id number] 16:58:00 Test Item Value Reference Range Interpretation [...] HE NEGATIVERESULT DOES NOT RULE OUT THE FL ESENCE OF STREP GROUP A.W HEN STREP GROUP A ANTIGEN IS DETECTED, THE P OSITIVE RESULTIS SIGNIF ICANT. NEGATIVE RESULT S REFLEX A CULTURE. FORNE GATIVE RESULTS A CULTU RE IS IN PROGRESS, RESUL T TO FOLLOW. HCG SERUM [id number] 16:55:00 Test Item Value Reference Range Interpretation Comments HCG SERUM QUAL (test code = HCGQL) NEG SCREEN NEG Specimen comments: SEPSIS WORKUP- XR CHEST 2 [id number] 16:55:00 FAX: Julia Sanz [phone] [place]: St: PRE Patient Name: JAIDEN ALVARDAO Unit No: [id number] EXAMS: CPT CODE: [id number] XR CHEST 2 V 51179 PA and lateral views of the chest [...] 02/17/2020 (1657) KILLIAN Crawford NAME: JAIDEN ALVARADO [address] [place] [address] PHYS: Julia Rasm[place], [place] [address] : 1980 AGE: 39 SEX: F LOC: [facility] PHONE #: [phone] EXAM DATE: 02/17/2020 STATUS: PRE ER FAX #: [phone] RAD NO: DC Dt: PAGE 1 Signed ReportUA RFLX MICR CULT IF [id number] 16:51:00 Test Item Value Reference Range Interpretation [...] Sepsis-no other srcUA RFLX MICR CULT IF [id number] 16:47:00 Test Item Value Reference Range Interpretation [...] for culture: Sev. Sepsis-no other srcCBC W/AUTO [id number] 16:45:00 Test Item Value Reference Range Interpretation [...]
[2021-07-14 23:27] LABS: Urine Blood Negative (Negative); Urine Glucose Negative (Negative); Urine Protein Negative (Negative); Urine Specific Gravity 1.015 (1.005-1.030); Urine pH 7.5 (5.0-7.0)
[2021-07-14 23:28] LABS: Urine Specific Gravity/Preg 1.015 (1.005-1.030)
--- NOTE | 2021-07-15 01:52 | EDPHYS ---
Physician Documentation [facility] Name: Gabrielle Plata Age: 40 yrs Sex: Female : 1980 Arrival Date: 07/14/2021 Time: 20:19 Bed Waiting Private MD: ED Physician Armond Boles HPI: 07/15 01:45 This 40 yrs old Female presents to ER via Ambulatory with complaints of Pain mh7 With Urination, BLOOD IN URINE, Headache, Nausea, Eye Problem. 01:46 The patient or guardian reports cough, that is intermittent, described as mild, with no mh7 sputum, Nasal congestion, watery eyes, puffy eyes in the morning. Onset: The symptoms/episode began/occurred 3 day(s) ago. Severity of symptoms: At their worst the symptoms were mild, last night, in the emergency department the symptoms have improved, markedly. Modifying factors: The symptoms are alleviated by Hydroxyzine the symptoms are aggravated by nothing. Associated signs and symptoms: Pertinent negatives: chest pain, diarrhea, ear ache, fever, sore throat, vomiting. Historical: - Allergies: 07/14 23:58 Codeine; em 23:58 Corticosteroids (Glucocorticoids); em 23:58 Demerol; em 23:58 Sulfa (Sulfonamide Antibiotics); em 23:58 THC; em - PMHx: 23:58 Crohn's Disease; Gretta Parikh tears; MRSA; HPV; em - Immunization history:: Client reports having NOT received the Covid vaccine. - Social history:: Smoking status: Patient reports the use of cigarette tobacco products, denies chronic smoking, but will smoke occasionally. ROS: 07/15 01:46 Constitutional: Negative for fever, chills, and weight loss, Neck: Negative for injury, mh7 pain, and swelling, Cardiovascular: Negative for chest pain, palpitations, and edema. Back: Negative for injury and pain. MS/Extremity: Negative for injury and deformity, Skin: Negative for injury, rash, and discoloration, Neuro: Negative for headache, weakness, numbness, tingling, and seizure, Psych: Negative for depression, anxiety, suicide ideation, homicidal ideation, and hallucinations, Allergy/Immunology: Negative for hives, rash, and allergies, Endocrine: Negative for neck swelling, polydipsia, polyuria, polyphagia, and marked weight changes, Hematologic/Lymphatic: Negative for swollen nodes, abnormal bleeding, and unusual bruising. Abdomen/GI: Negative for abdominal pain, vomiting, diarrhea, constipation, abdominal cramps, abdominal distension, anorexia, dysphagia, hematemesis, black/tarry stool, rectal pain, rectal bleeding, bowel incontinence, flatulence, acute changes. : Positive for hematuria, burning with urination, Negative for urinary frequency, small amounts, pelvic pain, flank pain, bladder incontinence, foul smelling urine, vaginal bleeding, vaginal discharge, vaginal itching. Exam: 01:46 Constitutional: This is a well developed, well nourished patient who is awake, alert, mh7 and in no acute distress. Head/Face: Normocephalic, atraumatic. Eyes: Pupils equal round and reactive to light, extra-ocular motions intact. Lids and lashes normal. Conjunctiva and sclera are non-icteric and not injected. Cornea within normal limits. Periorbital areas with no swelling, redness, or edema. ENT: Nares patent. No nasal discharge, no septal abnormalities noted. Tympanic membranes are normal and external auditory canals are clear. Oropharynx with no redness, swelling, or masses, exudates, or evidence of obstruction, uvula midline. Mucous membranes moist. Neck: Trachea midline, no thyromegaly or masses palpated, and no cervical lymphadenopathy. Supple, full range of motion without nuchal rigidity, or vertebral point tenderness. No Meningismus. Chest/axilla: Normal chest wall appearance and motion. Nontender with no deformity. No lesions are appreciated. Cardiovascular: Regular rate and rhythm with a normal S1 and S2. No gallops, murmurs, or rubs. Normal PMI, no JVD. No pulse deficits. Respiratory: Lungs have equal breath sounds bilaterally, clear to auscultation and percussion. No rales, rhonchi or wheezes noted. No increased work of breathing, no retractions or nasal flaring. Abdomen/GI: Soft, non-tender, with normal bowel sounds. No distension or tympany. No guarding or rebound. No evidence of tenderness throughout. Back: No spinal tenderness. No costovertebral tenderness. Full range of motion. Skin: Warm, dry with normal turgor. Normal color with no rashes, no lesions, and no evidence of cellulitis. MS/ Extremity: Pulses equal, no cyanosis. Neurovascular intact. Full, normal range of motion. Neuro: Awake and alert, GCS 15, oriented to person, place, time, and situation. Cranial nerves II-XII grossly intact. Motor strength 5/5 in all extremities. Sensory grossly intact. Cerebellar exam normal. Normal gait. Psych: Awake, alert, with orientation to person, place and time. Behavior, mood, and affect are within normal limits. Vital Signs: 07/14 22:01 BP 139 / 99; Pulse 99; Resp 20; Temp 98.2; Pulse Ox 99% on R/A; em MDM: 07/15 01:46 Differential Diagnosis: Bronchitis Upper Respiratory Infection Sinusitis Allergic mh7 Rhinitis Viral Syndrome Other UTI, dysuria, hematuria. Data reviewed: vital signs, nurses notes, lab test result(s), urinalysis, UPT: negative Covid negative. Data interpreted: Pulse oximetry: on room air is 99 %. Interpretation: normal. Counseling: I had a detailed discussion with the patient and/or guardian regarding: the historical points, exam findings, and any diagnostic results supporting the discharge/admit diagnosis, lab results, the need for outpatient follow up, to return to the emergency department if symptoms worsen or persist or if there are any questions or concerns that arise at home. Response to treatment: the patient's symptoms have markedly improved after treatment. 01:52 Patient medically screened. [facility] 07/14 22:17 Order name: COVID-19 : Document "Date of Symptom Onset" if Symptomatic. 07/14 22:17 Order name: Urine Dipstick-Ancillary (obtain specimen) 07/14 23:27 Order name: Urine Dipstick-Ancillary; Complete Time: 01:19 EDMS 07/14 23:27 Order name: Urine --Ancillary (enter results); Complete Time: 01:19 tt3 07/14 23:27 Order name: SARS-COV-2 RT PCR; Complete Time: 01:19 EDMS Administered Medications: No medications were administered Disposition Summary: 07/15/21 01:52 Discharge Ordered Location: Home [facility] Problem: [facility] Symptoms: have improved mh Condition: Stable [facility] Diagnosis - Other seasonal allergic rhinitis 7 - Viral syndrome mh7 - Dysuria 7 Followup: [facility] - With: Private Physician - When: 1 - 2 days - Reason: Worsening of condition, Recheck today's complaints, Continuance of care, Re-evaluation by your physician Discharge Instructions: - Discharge Summary Sheet [facility] - Dysuria [facility] - Viral Respiratory Infection, [id number] [facility] - Allergic Rhinitis, Adult, [id number] [facility] Forms: - Medication Reconciliation Form [facility] - Thank You Letter [facility] - Antibiotic Education [facility] - Prescription Opioid Use [facility] Prescriptions: - Pyridium 200 mg Oral Tablet - take 1 tablet by ORAL route every 8 hours for 2 days; 6 tablet; Refills: 0, mh7 Product Selection Permitted Signatures: Dispatcher [employer] Basil Stevens RN RN Armond Mosquera MD MD 7 Corrections: (The following items were deleted from the chart) 07/14 22:21 22:18 CORONAVIRUS ordered. [facility]
--- NOTE | 2021-07-15 01:52 | ER ---
Nurse's Notes [facility] Name: Gabrielle Plata Age: 40 yrs Sex: Female : 1980 Arrival Date: 07/14/2021 Time: 20:19 Bed Waiting Private MD: Diagnosis: Other seasonal allergic rhinitis;Viral syndrome;Dysuria Presentation: 07/14 22:01 Chief complaint: Patient states: N/V pain when urinating, denies fever. Coronavirus em screen: Client denies travel out of the [place] in the last 14 days. Ebola Screen: Patient negative for fever greater than or equal to 101.5 degrees Fahrenheit, and additional compatible Ebola Virus Disease symptoms Patient denies exposure to infectious person. Patient denies travel to an Ebola-affected area in the 21 days before illness onset. No symptoms or risks identified at this time. Initial Sepsis Screen: Does the patient meet any 2 criteria? No. Patient's initial sepsis screen is negative. Does the patient have a suspected source of infection? No. Patient's initial sepsis screen is negative. Risk Assessment: Do you want to hurt yourself or someone else? Patient reports no desire to harm self or others. Onset of symptoms was July 14, 2021. 22:01 Method Of Arrival: Ambulatory em 22:02 Acuity: CATHIE 4 em Historical: - Allergies: 23:58 Codeine; em 23:58 Corticosteroids (Glucocorticoids); em 23:58 Demerol; em 23:58 Sulfa (Sulfonamide Antibiotics); em 23:58 THC; em - PMHx: 23:58 Crohn's Disease; Gretta Parikh tears; MRSA; HPV; em - Immunization history:: Client reports having NOT received the Covid vaccine. - Social history:: Smoking status: Patient reports the use of cigarette tobacco products, denies chronic smoking, but will smoke occasionally. Vital Signs: 22:01 BP 139 / 99; Pulse 99; Resp 20; Temp 98.2; Pulse Ox 99% on R/A; em ED Course: 20:19 Patient arrived in ED. cf2 23:58 Triage completed. em 23:58 Arm band placed on. em 07/15 01:26 Armond Boles MD is Attending Physician. [facility] Administered Medications: No medications were administered Outcome: 01:52 Discharge ordered by . [facility] 01:57 Discharged to home ambulatory. em 01:57 Condition: good 01:57 Discharge instructions given to patient, Instructed on discharge instructions, follow up and referral plans. medication usage, Demonstrated understanding of instructions, follow-up care, medications, Prescriptions given X 1. 01:57 Patient left the ED. em Signatures: Basil Mistry RN RN Jewel Corcoran 2 Armond Boles MD MD mh7
[2021-07-15 02:18] VITALS: BP 139/99; TEMP 98.2; O2SAT 99
== END 2021-07-15 01:57 | disposition home or self-care (01) ==
LOC: ER 20:04
DX: B34.9 Viral infection, unspecified (principal); J30.2 Other seasonal allergic rhinitis; F17.210 Nicotine dependence, cigarettes, uncomplicated; Z20.822 Contact with and (suspected) exposure to COVID-19; Z88.2 Allergy status to sulfonamides; Z88.5 Allergy status to narcotic agent; Z88.8 Allergy status to other drugs, medicaments and biological substances
CPT/HCPCS: 81003; 81025; 99282; U0003

== ENCOUNTER 2021-09-10 21:42 | Emergency (ER) | payer SELFPAY ==
[2021-09-10 22:21] LABS: Absolute Lymphocytes (CBC) 4.2 K/uL (0.7-4.9); Basophils % 0.9 % (0-1.3); Hematocrit 39.3 % (36.0-45.0); Lymphocytes % 41.3 % (15.3-44.8); MPV 7.3 fL (7.6-11.3); RBC Red Blood Cell Count 4.34 M/uL (3.86-4.86)
--- NOTE | 2021-09-10 22:24 | ER ---
Nurse's Notes [facility] Name: Gabrielle Plata Age: 41 yrs Sex: Female : 1980 Arrival Date: 09/10/2021 Time: 21:47 Bed 4 Private MD: Diagnosis: Anxiety disorder, unspecified Presentation: 09/10 21:52 Chief complaint: Patient states: PER EMS PT HAD A SYNCOPAL EPISODE WHILE IN CUSTODY. cw2 EMS STATES SHE WAS ASSISTED TO GROUND. PT C/O NAUSEA AT THIS TIME. Coronavirus screen: Vaccine status: Patient reports being unvaccinated. Client denies travel out of the [place] in the last 14 days. At this time, the client does not indicate any symptoms associated with coronavirus-19. Ebola Screen: No symptoms or risks identified at this time. Initial Sepsis Screen: Does the patient meet any 2 criteria? No. Patient's initial sepsis screen is negative. Does the patient have a suspected source of infection? No. Patient's initial sepsis screen is negative. Risk Assessment: Do you want to hurt yourself or someone else? Patient reports no desire to harm self or others. Onset of symptoms was September 10, 2021 at 21:00. 21:52 Method Of Arrival: EMS: [facility] cw2 21:52 Acuity: CATHIE 3 cw2 22:39 Note PT UP FOR DISCHARGE AT THIS TIME. PT AWAKE ALERT AOX4 SPEAKING IN FULL SENTENCES. cw2 AMBULATORY ALONE WITH A STEADY GAIT. DISCHARGE INSTRUCTIONS DISCUSSED WITH PT. ALL QUESTIONS ANSWERED AND NO CONCERNS VERBALIZED AT THIS TIME. PT ADVISED TO RETURN TO ED AT ANYTIME. PT ACKNOWLEDGES. PT STABLE ON DISCHARGE. Triage Assessment: 21:57 General: Appears distressed, Behavior is calm, cooperative. EENT: No deficits noted. cw2 Neuro: No deficits noted. Cardiovascular: No deficits noted. Respiratory: No deficits noted. GI: No deficits noted. : No deficits noted. Historical: - Allergies: 21:57 Codeine; cw2 21:57 Demerol; cw2 21:57 THC; cw2 21:57 Sulfa (Sulfonamide Antibiotics); cw2 21:57 Corticosteroids (Glucocorticoids); cw2 - Home Meds: 21:57 Hydroxyzine Oral [Active]; Zofran Oral [Active]; cw2 - PMHx: 21:57 Crohn's Disease; HPV; Gretta Parikh tears; MRSA; cw2 - Immunization history:: Adult Immunizations up to date. - Social history:: Smoking status: Patient reports the use of cigarette tobacco products, smokes one-half pack cigarettes per day, Patient uses alcohol, occasionally. only on a social basis. - Code Status:: Full code. Screenin:09 Abuse screen: Denies threats or abuse. Nutritional screening: No deficits noted. cw2 Tuberculosis screening: No symptoms or risk factors identified. Fall Risk IV access (20 points). Assessment: 21:59 General: Appears distressed, Behavior is cooperative, anxious. Neuro: No deficits cw2 noted. Cardiovascular: No deficits noted. Respiratory: No deficits noted. Respiratory: No deficits noted. GI: No deficits noted. Vital Signs: 21:52 BP 113 / 68; Pulse 114; Resp 19; Temp 99.1; Pulse Ox 99% on R/A; Weight 48.08 kg; cw2 Height 5 ft. 0 in. (152.40 cm); Pain 0/10; 22:41 BP 111 / 61; Pulse 102; Resp 15; Pulse Ox 99% on R/A; cw2 21:52 Body Mass Index 20.70 (48.08 kg, 152.40 cm) cw2 ED Course: 21:47 Patient arrived in ED. em 21:51 Artur Julian, RN is Primary Nurse. cw2 21:56 Sam Ramirez MD is Attending Physician. [facility] 21:57 Triage completed. cw2 21:59 Arm band placed on left wrist. Patient placed in an exam room, on a stretcher, on cw2 monitor tech, on pulse oximetry. 22:08 Door closed. Noise minimized. Moved to private room. Warm blanket given. cw2 22:08 No provider procedures requiring assistance completed. Initial lab(s) drawn, by ga, cw2 sent to lab. Inserted saline lock: 20 gauge in right antecubital area, using aseptic technique. Blood collected. 22:15 Basic Metabolic Panel Sent. cw2 22:15 CBC with Diff Sent. cw2 22:15 ETOH Level Sent. cw2 22:15 Hepatic Function Sent. cw2 22:15 PT-INR Sent. cw2 22:15 Ptt, Activated Sent. cw2 22:23 Robert Castellon MD is Referral Physician. to Administered Medications: 22:14 Drug: NS 0.9% 1000 ml Route: IV; Rate: 1 bolus; Site: right antecubital; cw2 Outcome: 22:08 Condition: good cw2 22:23 Discharge ordered by MD. ariza 22:42 Patient left the ED. cw2 Signatures: Sam Ramirez MD MD cha Munoz, Edgar, RN RN Artur Chin RN RN cw2
--- NOTE | 2021-09-10 22:24 | EDPHYS ---
Physician Documentation [facility] Name: Gabrielle Plata Age: 41 yrs Sex: Female : 1980 Arrival Date: 09/10/2021 Time: 21:47 Bed 4 Private MD: RD Physician Sam Ramirez HPI: 09/10 22:19 This 41 yrs old Female presents to ER via EMS with complaints of anxiety. to 22:19 The patient presents to the emergency department with anxiety. Onset: The to symptoms/episode began/occurred just prior to arrival. Past psychiatric history: Prior diagnosis: anxiety. Associated signs and symptoms: The patient has no apparent associated signs or symptoms. Severity of symptoms: At their worst the symptoms were mild in the emergency department the symptoms are unchanged. The patient has not experienced similar symptoms in the past. Historical: - Allergies: 21:57 Codeine; cw2 21:57 Demerol; cw2 21:57 THC; cw2 21:57 Sulfa (Sulfonamide Antibiotics); cw2 21:57 Corticosteroids (Glucocorticoids); cw2 - Home Meds: 21:57 Hydroxyzine Oral [Active]; Zofran Oral [Active]; cw2 - PMHx: 21:57 Crohn's Disease; HPV; Gretta Parikh tears; MRSA; cw2 - Immunization history:: Adult Immunizations up to date. - Social history:: Smoking status: Patient reports the use of cigarette tobacco products, smokes one-half pack cigarettes per day, Patient uses alcohol, occasionally. only on a social basis. - Code Status:: Full code. ROS: 22:21 Constitutional: Negative for fever, chills, and weight loss, Eyes: Negative for injury, to pain, redness, and discharge, ENT: Negative for injury, pain, and discharge, Neck: Negative for injury, pain, and swelling, Cardiovascular: Negative for chest pain, palpitations, and edema, Respiratory: Negative for shortness of breath, cough, wheezing, and pleuritic chest pain, Abdomen/GI: Negative for abdominal pain, nausea, vomiting, diarrhea, and constipation, Back: Negative for injury and pain, : Negative for injury, bleeding, discharge, and swelling, MS/Extremity: Negative for injury and deformity, Skin: Negative for injury, rash, and discoloration, Neuro: Negative for headache, weakness, numbness, tingling, and seizure, Allergy/Immunology: Negative for hives, rash, and allergies, Endocrine: Negative for neck swelling, polydipsia, polyuria, polyphagia, and marked weight changes, Hematologic/Lymphatic: Negative for swollen nodes, abnormal bleeding, and unusual bruising. 22:21 Psych: Positive for anxiety. Exam: 22:21 Constitutional: This is a well developed, well nourished patient who is awake, alert, to and in no acute distress. Head/Face: Normocephalic, atraumatic. Eyes: Pupils equal round and reactive to light, extra-ocular motions intact. Lids and lashes normal. Conjunctiva and sclera are non-icteric and not injected. Cornea within normal limits. Periorbital areas with no swelling, redness, or edema. ENT: Nares patent. No nasal discharge, no septal abnormalities noted. Tympanic membranes are normal and external auditory canals are clear. Oropharynx with no redness, swelling, or masses, exudates, or evidence of obstruction, uvula midline. Mucous membranes moist. Neck: Trachea midline, no thyromegaly or masses palpated, and no cervical lymphadenopathy. Supple, full range of motion without nuchal rigidity, or vertebral point tenderness. No Meningismus. Chest/axilla: Normal chest wall appearance and motion. Nontender with no deformity. No lesions are appreciated. Cardiovascular: Regular rate and rhythm with a normal S1 and S2. No gallops, murmurs, or rubs. Normal PMI, no JVD. No pulse deficits. Respiratory: Lungs have equal breath sounds bilaterally, clear to auscultation and percussion. No rales, rhonchi or wheezes noted. No increased work of breathing, no retractions or nasal flaring. Abdomen/GI: Soft, non-tender, with normal bowel sounds. No distension or tympany. No guarding or rebound. No evidence of tenderness throughout. Back: No spinal tenderness. No costovertebral tenderness. Full range of motion. Skin: Warm, dry with normal turgor. Normal color with no rashes, no lesions, and no evidence of cellulitis. MS/ Extremity: Pulses equal, no cyanosis. Neurovascular intact. Full, normal range of motion. Neuro: Awake and alert, GCS 15, oriented to person, place, time, and situation. Cranial nerves II-XII grossly intact. Motor strength 5/5 in all extremities. Sensory grossly intact. Cerebellar exam normal. Normal gait. Psych: Awake, alert, with orientation to person, place and time. Behavior, mood, and affect are within normal limits. Vital Signs: 21:52 BP 113 / 68; Pulse 114; Resp 19; Temp 99.1; Pulse Ox 99% on R/A; Weight 48.08 kg; cw2 Height 5 ft. 0 in. (152.40 cm); Pain 0/10; 22:41 BP 111 / 61; Pulse 102; Resp 15; Pulse Ox 99% on R/A; cw2 21:52 Body Mass Index 20.70 (48.08 kg, 152.40 cm) cw2 MDM: 21:56 Patient medically screened. to 22:22 Differential diagnosis: depression. Data reviewed: vital signs, nurses notes. Data to interpreted: playground monitor: not applicable for this patient encounter. rate is 114 beats/min, rhythm is regular, Pulse oximetry: on room air is 99 %. Test interpretation: by ED physician or midlevel provider:. Counseling: I had a detailed discussion with the patient and/or guardian regarding: the historical points, exam findings, and any diagnostic results supporting the discharge/admit diagnosis, the need for outpatient follow up, for definitive care, a family practitioner, a psychiatrist. 09/10 22:00 Order name: Acetaminophen [facility] 09/10 22:00 Order name: Basic Metabolic Panel [facility] 09/10 22:00 Order name: CBC with Diff [facility] 09/10 22: Order name: ETOH Level [facility] 09/10 22: Order name: Hepatic Function [facility] 09/10 22: Order name: PT-INR [facility] 09/10 22: Order name: Ptt, Activated [facility] 09/10 22:00 Order name: EKG; Complete Time: 22:01 [facility] 09/10 22:00 Order name: EKG - Nurse/Tech; Complete Time: 22:14 [facility] 09/10 22: Order name: IV Saline Lock; Complete Time: 22:14 [facility] 09/10 22:00 Order name: Labs collected and sent; Complete Time: 22:14 [facility] Administered Medications: 22:14 Drug: NS 0.9% 1000 ml Route: IV; Rate: 1 bolus; Site: right antecubital; cw2 Disposition Summary: 09/10/21 22:23 Discharge Ordered Location: Home to Problem: new to Symptoms: have improved to Condition: Stable to Diagnosis - Anxiety disorder, unspecified to Followup: to - With: Private Physician - When: 2 - 3 days - Reason: Recheck today's complaints, Continuance of care, Re-evaluation by your physician Followup: to - With: Robert Castellon MD - When: 2 - 3 days - Reason: Recheck today's complaints, Re-evaluation by your physician Discharge Instructions: - Discharge Summary Sheet to - Generalized Anxiety Disorder, Adult to - Managing Anxiety, Adult to Forms: - Medication Reconciliation Form to - Thank You Letter to - Antibiotic Education to - Prescription Opioid Use to Prescriptions: - Benadryl 25 mg Oral Capsule - take 1 capsule by ORAL route every 6 hours As needed; 30 tablet; Refills: 0, to Product Selection Permitted Signatures: Dispatcher [employer] EDSam Asencio MD MD cha Williams, Christopher RN RN cw2 Corrections: (The following items were deleted from the chart) 22:20 22:00 Suicide Screening ([place]) ordered. to tt3 22:20 22:00 Urine Dipstick-Ancillary ordered. to tt3 22:20 22:00 Urine Test ordered. to tt3
[2021-09-10 22:25] LABS: Protime INR 1.02
[2021-09-10 22:37] LABS: ALT/SGPT 26 U/L (12-78); AST/SGOT 19 U/L (15-37); Albumin 3.5 g/dL (3.4-5.0); Alkaline Phosphatase 70 U/L (45-117); BUN Blood Urea Nitrogen 7 mg/dL (7-18); Bicarbonate 24 mmol/L (21-32); Bilirubin Direct < 0.1 mg/dL (0-0.2); Bilirubin Total 0.3 mg/dL (0.2-1.0); Glucose Level 115 mg/dL (74-106); Potassium 3.6 mmol/L (3.5-5.1); Protein, Total 6.7 g/dL (6.4-8.2); Sodium Level 145 mmol/L (136-145)
[2021-09-10] MEDS ORDERED: NA CHLORIDE 0.9% 1,000 ML ONE (22:43)
[2021-09-10 23:04] VITALS: TEMP 99.1; O2SAT 99
[2021-09-10 23:05] VITALS: BP 111/61
== END 2021-09-10 22:42 | disposition home or self-care (01) ==
LOC: ER 21:42
DX: F41.9 Anxiety disorder, unspecified (principal); K50.90 Crohn's disease, unspecified, without complications; K22.6 Gastro-esophageal laceration-hemorrhage syndrome; F17.210 Nicotine dependence, cigarettes, uncomplicated; Z86.14 Personal history of Methicillin resistant Staphylococcus aureus infection; Z88.6 Allergy status to analgesic agent; Z88.2 Allergy status to sulfonamides; Z88.8 Allergy status to other drugs, medicaments and biological substances
CPT/HCPCS: 36415; 80048; 80076; 80320; 80329; 85025; 85610; 85730; 99284; J7030

== ENCOUNTER 2021-09-12 01:07 | Emergency (ER) | payer SELFPAY ==
[2021-09-12] MEDS ORDERED: ONDANSETRON 4 MG/2 ML VIAL ONE (02:24)
[2021-09-12] MEDS ORDERED: FAMOTIDINE 20 MG/2 ML VIAL IV ONE (02:31)
[2021-09-12 02:41] LABS: Absolute Lymphocytes (CBC) 2.2 K/uL (0.7-4.9); Basophils % 0.4 % (0-1.3); Hematocrit 36.6 % (36.0-45.0); Lymphocytes % 14.8 % (15.3-44.8); MPV 7.2 fL (7.6-11.3); RBC Red Blood Cell Count 3.98 M/uL (3.86-4.86)
[2021-09-12 02:51] LABS: Albumin 3.1 g/dL (3.4-5.0); Bilirubin Total 0.4 mg/dL (0.2-1.0); Potassium 3.9 mmol/L (3.5-5.1)
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
--- NOTE | 2021-09-12 03:11 | EDPHYS ---
Physician Documentation [facility] Name: Gabrielle Plata Age: 41 yrs Sex: Female : 1980 Arrival Date: 09/12/2021 Time: 01:12 Bed 8 Private MD: RD Physician Sam Ramirez HPI: 09/12 01:54 This 41 yrs old Female presents to ER via EMS with complaints of vomiting. to 01:54 The patient presents with abdominal pain in the upper abdomen, in the lower abdomen. to Onset: The symptoms/episode began/occurred 1 day(s) ago. The patient presents to the emergency department with nausea, vomiting, that is intermittent. Onset: The symptoms/episode began/occurred today. Possible causes: unknown. The symptoms are aggravated by nothing. The symptoms are alleviated by nothing. Associated signs and symptoms: Pertinent positives: abdominal pain. The symptoms do not radiate. Associated signs and symptoms: none. The symptoms are described as constant, crampy. Modifying factors: The symptoms are alleviated by nothing, the symptoms are aggravated by food. 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 - Social history:: Smoking status: Patient reports the use of cigarette tobacco products, smokes one pack cigarettes per day. - Family history:: not pertinent. ROS: 01:54 Constitutional: Negative for fever, chills, and weight loss, Eyes: Negative for injury, to pain, redness, and discharge, ENT: Negative for injury, pain, and discharge, Neck: Negative for injury, pain, and swelling, Cardiovascular: Negative for chest pain, palpitations, and edema, Respiratory: Negative for shortness of breath, cough, wheezing, and pleuritic chest pain, Back: Negative for injury and pain, : Negative for injury, bleeding, discharge, and swelling, MS/Extremity: Negative for injury and deformity, Skin: Negative for injury, rash, and discoloration, Neuro: Negative for headache, weakness, numbness, tingling, and seizure, Psych: Negative for depression, anxiety, suicide ideation, homicidal ideation, and hallucinations, Allergy/Immunology: Negative for hives, rash, and allergies, Endocrine: Negative for neck swelling, polydipsia, polyuria, polyphagia, and marked weight changes, Hematologic/Lymphatic: Negative for swollen nodes, abnormal bleeding, and unusual bruising. 01:54 Abdomen/GI: Positive for nausea, vomiting, abdominal cramps. Exam: 01:54 Constitutional: This is a well developed, well nourished patient who is awake, alert, to and in no acute distress. Head/Face: Normocephalic, atraumatic. Eyes: Pupils equal round and reactive to light, extra-ocular motions intact. Lids and lashes normal. Conjunctiva and sclera are non-icteric and not injected. Cornea within normal limits. Periorbital areas with no swelling, redness, or edema. ENT: Nares patent. No nasal discharge, no septal abnormalities noted. Tympanic membranes are normal and external auditory canals are clear. Oropharynx with no redness, swelling, or masses, exudates, or evidence of obstruction, uvula midline. Mucous membranes moist. Neck: Trachea midline, no thyromegaly or masses palpated, and no cervical lymphadenopathy. Supple, full range of motion without nuchal rigidity, or vertebral point tenderness. No Meningismus. Chest/axilla: Normal chest wall appearance and motion. Nontender with no deformity. No lesions are appreciated. Cardiovascular: Regular rate and rhythm with a normal S1 and S2. No gallops, murmurs, or rubs. Normal PMI, no JVD. No pulse deficits. Respiratory: Lungs have equal breath sounds bilaterally, clear to auscultation and percussion. No rales, rhonchi or wheezes noted. No increased work of breathing, no retractions or nasal flaring. Abdomen/GI: Soft, non-tender, with normal bowel sounds. No distension or tympany. No guarding or rebound. No evidence of tenderness throughout. Back: No spinal tenderness. No costovertebral tenderness. Full range of motion. Skin: Warm, dry with normal turgor. Normal color with no rashes, no lesions, and no evidence of cellulitis. MS/ Extremity: Pulses equal, no cyanosis. Neurovascular intact. Full, normal range of motion. Neuro: Awake and alert, GCS 15, oriented to person, place, time, and situation. Cranial nerves II-XII grossly intact. Motor strength 5/5 in all extremities. Sensory grossly intact. Cerebellar exam normal. Normal gait. Psych: Awake, alert, with orientation to person, place and time. Behavior, mood, and affect are within normal limits. 01:54 Musculoskeletal/extremity: DVT Exam: No signs of deep vein thrombosis. no pain, no swelling, no tenderness, negative Homans' sign noted on exam, no appreciated bluish discoloration, no erythema, no increased warmth. Vital Signs: 01:14 BP 142 / 87; Pulse 83; Resp 18; Temp 98.4(O); Pulse Ox 100% on R/A; oe 02:27 BP 120 / 61; Pulse 82; Resp 18; Pulse Ox 100% on R/A; Pain 0/10; df1 MDM: 01:12 Patient medically screened. [facility] 01:56 Differential diagnosis: Nonspecific abd pain, viral gastroenteritis, gastroenteritis, to gastritis, non-specific abd pain, urinary tract infection. Data reviewed: vital signs, nurses notes, lab test result(s), CBC, electrolytes, urinalysis. 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 Counseling: I had a detailed discussion with the patient and/or guardian regarding: the historical points, exam findings, and any diagnostic results supporting the discharge/admit diagnosis, lab results, radiology results, the need for outpatient follow up, for definitive care, a family practitioner, a instrument repair supervisor. 09/12 01:53 Order name: CBC with Diff; Complete Time: 02:59 [facility] 09/12 01:53 Order name: Comprehensive Metabolic Panel; Complete Time: 02:59 [facility] 09/12 01:53 Order name: Lipase; Complete Time: 02:59 [facility] 09/12 01:53 Order name: Urine Dipstick-Ancillary (obtain specimen); Complete Time: 02:27 to Administered Medications: 01:58 Drug: NS 0.9% 1000 ml Route: IV; Rate: 1 bolus; Site: right antecubital; cw2 02:00 Drug: Zofran (Ondansetron) 4 mg Route: IVP; Site: right antecubital; cw2 02:35 Drug: Pepcid (famotidine) 20 mg Route: IVP; Site: right antecubital; cw2 03:24 Drug: Meclizine 25 mg Route: PO; df1 Disposition Summary: 09/12/21 03:11 Discharge Ordered Location: Home [facility] Problem: new to Symptoms: have improved to Condition: Stable to Diagnosis - Vomiting to - Dizziness and giddiness to Followup: to - With: Private Physician - When: 2 - 3 days - Reason: Recheck today's complaints, Continuance of care, Re-evaluation by your physician Followup: to - With: - When: 2 - 3 days - Reason: Recheck today's complaints, Continuance of care, Re-evaluation by your physician Discharge Instructions: - Discharge Summary Sheet to - Benign Positional Vertigo to - Nausea and Vomiting, Adult to - Nausea and Vomiting, Adult, [id number] to - Dizziness to - Dizziness, [id number] to - Vomiting, Adult [facility] Forms: - Medication Reconciliation Form [facility] - Thank You Letter to - Antibiotic Education to - Prescription Opioid Use [facility] Prescriptions: - Pepcid 20 mg Oral Tablet - take 1 tablet by ORAL route every 12 hours for 15 days; 30 tablet; Refills: 0, [facility] Product Selection Permitted - Zofran 4 mg Oral Tablet - take 1 tablet by ORAL route every 12 hours As needed; 20 tablet; Refills: 0, [facility] Product Selection Permitted - Meclizine 25 mg Oral Tablet - take 1 tablet by ORAL route every 8 hours As needed; 30 tablet; Refills: 0, [facility] Product Selection Permitted Signatures: Dispatcher [employer] Sam Bridges MD MD cha Furlich, Dawn df1 Artur Julian, RN RN cw2
[2021-09-12 03:34] VITALS: TEMP 98.4; O2SAT 100
[2021-09-12 03:35] VITALS: BP 120/61
[2021-09-12] MEDS ORDERED: MECLIZINE HCL 12.5 MG TAB ONE (03:42)
[2021-09-12 15:06] LABS: Urine Blood Negative (Negative); Urine Glucose Negative (Negative); Urine Protein Negative (Negative); Urine Specific Gravity 1.015 (1.005-1.030)
== END 2021-09-12 03:27 | disposition home or self-care (01) ==
LOC: ER 01:07
DX: R11.2 Nausea with vomiting, unspecified (principal); F17.210 Nicotine dependence, cigarettes, uncomplicated; Z88.2 Allergy status to sulfonamides; Z88.5 Allergy status to narcotic agent; Z88.8 Allergy status to other drugs, medicaments and biological substances; Z91.048 Other nonmedicinal substance allergy status
CPT/HCPCS: 36415; 80053; 81003; 83690; 85025; 96374; 96375; 99284; J2405

== ENCOUNTER 2021-10-21 12:17 | Emergency (ER) | payer SELFPAY ==
--- OUTSIDE RECORDS SUMMARY | 2021-10-21 12:22 | XMS REPORT | Continuity of Care Document ---
:1980 Author Organization [facility] t Address [address] [place] [address] Care Team Providers Name Role Phone PCP, DOES NOT HAVE A Primary Care Physician Unavailable Abdias Perea MD Attending Clinician Telma BEASLEY, Anish Attending Clinician Pam LEZAMA R Attending Clinician Itzel OROZCO Attending Clinician Unavailable Doctor Unassigned, Name Attending Clinician Unavailable Singer TORREZ Attending Clinician Jose Guadalupe RN, H Attending Clinician Unavailable Ashly LEZAMA Attending Clinician Anish RIVERA Attending Clinician Unavailable Nicole BEASLEY, Anish Attending Clinician AL Attending Clinician Unavailable Al BEASLEY Attending Clinician Jak BEASLEY S Attending Clinician Diogo BEASLEY Attending Clinician DIOGO Attending Clinician Unavailable Physician, Primary or Family Admitting Clinician Unavailshanell Lind MD Admitting Clinician DIOGO Admitting Clinician Unavailable Payers Payer Name Policy Type Policy Number Effective Date Expiration Date Claire chaudhary [employer] [place] [id number] 2020 00:00:00 WOMEN Problems Condition Condition Condition Status Onset Resolution Last Treating Co mments Source Name Details Category Date Date Treatment Clinician Date 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 Cervical Cervical Disease Active Overview: Un gracy high risk high risk 08-02 Awaiting it y of human human 00:00: pap smear [place] papillomav papillomav 00 results M edical irus (HPV) irus (HPV) Br anch DNA test DNA test positive positive History of History of Disease Active U nivers bilateral bilateral 8-25 ity of tubal tubal 00:00: [place] ligation ligation 00 Medica l Branch Elevated Elevated Disease Active Unive rs blood blood 8-25 ity of pressure pressure 00:00: [place] reading reading 00 Medical without without Branch diagnosis diagnosis of of hypertensi hypertensi on on Anxiety Anxiety Disease Active Univers 5-07 ity of 00:00: [place] 00 [facility] Branch Chest pain Chest pain Disease Active U nivers 4-21 ity of 00:00: [place] 00 [facility] Branch Screening Screening Disease Active Uni vers examinatio examinatio 2-05 it y of n for STD n for STD 00[place]00[place] ([place]ually (sexually [facility] transmitte transmitte Br anch d disease) d disease) Premature Premature Disease Active 2016-12 Uni vers labor labor 0-24 ity of 00:00: [place] [facility] Branch 34 weeks 34 weeks Disease Active 2016-12 Unive rs gestation gestation 0-14 ity of of of 00:00: [place] 00 [facility] Disease Active 2016-12 Univers labor labor 0-14 ity of 00:00: [place] [facility] Branch Crohn Crohn Disease Active Overview: Univer s disease disease 12-02 involving ity o f 00:00: small and [place] 00 large Medical intesting Branch , biopsy confirmed . Gets colonosco py Q 6-12 months. 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 [place] es es Medical abortions Branch prior to 10 weeks, D&C in 2005 Allergies, Adverse Reactions, Alerts Allergy Allergy Status Severity Reaction(s) Onset Inactive Treating Comm ents Source Name Type Date Date Clinician meperidi DA Active [place] 2020-0 [facility] ne HCl 3-18 [place] 00:00: Region 00 [facility] Sulfa DA Active MO 2020-0 [facility] (Sulfona 3-18 [place] mide 00:00: Region Antibiot 00 l ics) [facility] codeine DA Active MO 2020-0 [facility] 3-18 [place] 00:00: [address] meperidi DA Active MO vomiting 2020-0 [facility] ne HCl chest 3-18 [place] tightness 00:00: [address] Sulfa DA Active [place] rash chest 2020-0 [facility] (Sulfona tightness 3-18 [place] 00:[place]: Regiona Antibiot 00 l ics) [facility] codeine DA Active [place] rash chest 2020-0 [facility] tightness 3-18 [place] 00:00: [address] Marijuan Propensi Active Anaphylaxis 2018-0 U nivers a/Cannab ty to 2-05 ity of inoid adverse 00:00: [place] reaction 00 Medical s Branch MARIJUAN Drug Active High Anaphylaxis 2018-0 Uni vers A/CANNAB Class 2-05 ity of INOID 00:00: [place] 00 Medical Branch Sulfa Propensi Active Rash 2017-0 Univers (Sulfona ty to 8-30 ity of mide adverse 00:00: [place] Antibiot reaction 00 Medica l ics) s Branch SULFA Drug Active High Rash 2017-0 Univers (SULFONA Class 8-30 ity of MIDE 00:00: [place] ANTIBIOT 00 Medical ICS) Branch Codeine Propensi Active Shortness of 2015- U nivers ty to Breath 0-25 ity of adverse 00:00: [place] reaction 00 Medical s Branch Meperidi Propensi Active Rash 2015-12 Univer s ne Hcl ty to 0-25 ity of adverse 00:00: [place] reaction 00 Medical s Branch Tramadol Propensi Active Nausea 2015-12 Univer s ty to and/or 0-25 ity of adverse Vomiting 00:00: [place] reaction 00 Medical Branch CODEINE DRUG Active SOB 2015-12 Univers INGREDI 0-25 ity of 00:00: [place] 00 Medical Branch MEPERIDI DRUG Active Rash 2015-12 Univers NE HCL INGREDI 0-25 ity of 00:00: [place] [facility] TRAMADOL DRUG Active N/V 2015-12 Univers INGREDI 0-25 ity of 00:00: [place] 00 Medical Branch meperidi DA Active MO [facility] ne HCl 8-26 [place] 00:00: Region 00 [facility] Sulfa DA Active MO [facility] (Sulfona 8-26 [place] mide 00:00: Region Antibiot 00 l ics) [facility] codeine DA Active MO [facility] 8-26 [place] 00:00: [facility] 00 [facility] meperidi DA Active MO vomiting [facility] ne HCl chest 8-26 [place] tightness 00:00: Region 00 [facility] Sulfa DA Active [place] rash chest [facility] (Sulfona tightness 8-26 [place] 00:00: Region Antibiot 00 l ics) [facility] codeine DA Active [place] rash chest [facility] tightness 8-26 [place] 00:00: [address] Social History Social Habit Start Date Stop Date Quantity Comments Source History of tobacco Cigarette Smoker University of use [facility] Sex Assigned At Universit y of [facility] Exposure to Not sure [facility] SARS-CoV-2 (event) [facility] Tobacco use and 2020-07-26 2020-07-26 Never used Universit y of exposure 00:00:00 00:00:00 [facility] Cigarettes smoked 2020-07-26 2020-07-26 Univers ity of current (pack per 00:00:00 00:00:00 [facility]) - Reported Branch History [facility] 2020-07-26 2020-07-26 2 University o f Alcohol Frequency 00:00:00 00:00:00 [facility] Branch History [facility] 2020-07-26 2020-07-26 2 University o f Alcohol Std Drinks 00:00:00 00:00:00 [facility] History SDOH 2020-07-26 2020-07-26 99 University o f Alcohol Binge 00:00:00 00:00:00 [facility] al [place] Alcohol intake 2020-07-26 2020-07-26 Current drinker Unive rsity of 00:00:00 00:00:00 of alcohol [place] [facility] (finding) [place] Tobacco Comment 2018-01-03 2018-01-03 Occasional Smoker Un iversity of 00:00:00 00:00:00 [facility] Alcohol Comment 2018-01-03 2018-01-03 Social Drinker Unive rsity of 00:00:00 00:00:00 [facility] Smoking Status Start Date Stop Date Source Current every day smoker 2020-07-26 00:00:[address] [facility] Current some day smoker 2020-06-12 00:00:[address] [facility] Medications Ordered Filled Start Stop Current Ordering Indication Dosage Frequency Signature Comments Components Source Medication Medication Date Date Medication? Clinician (SIG) Name Name ibuprofen No 600mg 600 mg, Uni vers (IBU) 12-26 Oral, ity of tablet 600 04:45: 03:53 ONCE, 1 Jose as mg 00 :00 dose, [facility] 12/25/20 at Branch 2245, MATTHEW ibuprofen No 600mg 600 mg, Uni vers (IBU) 12-26 Oral, ity of tablet 600 00:30: 12:29 ONCE, 1 Jose as mg 00 :00 dose, [facility] 12/25/20 at Branch 1830, MATTHEW metroNIDAZO 2020- No [id number] 2000mg Take 4 Univers LE 500 mg 12-26 tablets by ity of tablet 00:00: 05:59 mouth 2 [place] 00 :00 (two) Medical times [place] daily for 1 dose. NaCl 0.9% No 1000mL at 999 Uni vers (NS) bolus 12-25 mL/hr, ity of infusion 17:30: 18:07 1,000 mL, Jose as 1,000 mL 00 :00 IV Medical Infusion, [place] ONCE, 1 dose, [place] 12/25/20 at 1130, STAT proMETHazin 2020- No 12.5mg 12.5 mg, Univers e 1-24 01-24 IV ity of (PHENERGAN) 17:30: 16:45 Piggyback, [place] 12.5 mg in 00 :00 ONCE, 1 Medica l NaCl 0.9% dose, [facility] (NS) 50 mL 12/25/20 at piggyback 1130, 50 mL cefTRIAXone 2020- No 250mg 250 mg, U nivers (ROCEPHIN) 12-25 Intramuscu it y of injection 16:30: 16:45 [place] 250 mg 00 :00 NOW, 1 Medical dose, [facility] 12/25/20 at 1030, MATTHEW
Fa culty member approving Restricted medication : MYNOR HOLLIS
Reaso n for Anti-Infec tive: Documented Infection< br>Docu mented Infection Site: Abdominal< br>Duratio n of Therapy: 7 days azithromyci 2020- No 1000mg 1,000 mg, Univers n 12-25 Oral, ONCE ity of (ZITHROMAX) 16:30: 16:44 NOW, 1 Jose as tablet 00 :00 dose, [place] Medical 1,000 mg 12/25/20 at [facility] h 1030, MATTHEW
Re ason for Anti-Infec tive: Documented Infection< br>Documen fatemeh Infection Site: COVID
D uration of Therapy: 7 days FENTanyl PF Yes 50ug 50 mcg, Uni vers (SUBLIMAZE 24 Slow IV ity of (PF)) 16:14: Push, [place] injection 05 Q30MIN Medical 50 mcg PRN, 3 Branch doses, Starting [place] 12/25/20 at 1014, Until Discontinu ed, MATTHEW, Pain (scale 7-10) iohexol 2019-0 2020- No 120mL 120 mL, Unive rs (OMNIPAQUE 07-15- Intravenou it y of 350 22:15: 22:15 s, ONCE, 1 [place] BULK-150 00 :00 dose, Fri Medica l mL) 07/15/20 at Branch injection 1715, 120 mL Routine dicyclomine Yes 10mg 10 mg, Univ ers (BENTYL) 8-14 Oral, QID, ity o f capsule 10 21:00: First dose [place] mg 00 on Fri Medical 07/15/20 at Branch 1600, Until Discontinu ed, Routine pantoprazol 2020-0 2020- No 80mg 80 mg, IV Univers e 07-15 Piggyback, ity of (PROTONIX) 19:45: 20:00 ONCE, 1 [place] as 80 mg in 00 :00 dose, Fri Medica l NaCl 0.9% 07/15/20 at [facility] ch (NS) 100 mL 1445, 100 IV mL Piggyback sucralfate 2020-0 Yes [id number] 1g Take 1 Un gracy 1 gram 8-14 tablet by ity of tablet 00:00: mouth [place] 00 before Medical meals and Branch at bedtime. dicyclomine 2020-0 Yes [id number] 10mg Take 1 U nivers (BENTYL) 10 8-14 capsule by it y of mg capsule 00:00: mouth [place] 00 every 8 Medical (eight) Branch hours as needed for Abdominal pain. ondansetron 2020-0 Yes [id number] 4mg Take 1 U nivers 4 mg 8-14 tablet by ity of disintegrat 00:00: mouth [place] ing tablet 00 every 8 Medica l (eight) Branch hours as needed for Nausea and Vomiting (N/V). sucralfate 2020-0 Yes [id number] 1g Take 1 Un gracy 1 gram 8-14 tablet by ity of tablet 00:00: mouth [place] 00 before Medical meals and Branch at bedtime. dicyclomine 2020-0 Yes [id number] 10mg Take 1 U nivers (BENTYL) 10 8-14 capsule by it y of mg capsule 00:00: mouth [place] 00 every 8 Medical (eight) Branch hours as needed for Abdominal pain. ondansetron 2020-0 Yes [id number] 4mg Take 1 U nivers 4 mg 8-14 tablet by ity of disintegrat 00:00: mouth [place] ing tablet 00 every 8 Medica l (eight) Branch hours as needed for Nausea and Vomiting (N/V). sucralfate 2020-0 Yes [id number] 1g Take 1 Un gracy 1 gram 8-14 tablet by ity of tablet 00:00: mouth [place] 00 before Medical meals and Branch at bedtime. dicyclomine 2020-0 Yes [id number] 10mg Take 1 U nivers (BENTYL) 10 8-14 capsule by it y of mg capsule 00:00: mouth [place] 00 every 8 Medical (eight) Branch hours as needed for Abdominal pain. ondansetron 2020-0 Yes [id number] 4mg Take 1 U nivers 4 mg 8-14 tablet by ity of disintegrat 00:00: mouth [place] ing tablet 00 every 8 Medica l (eight) Branch hours as needed for Nausea and Vomiting (N/V). sucralfate 2020-0 Yes [id number] 1g Take 1 Un gracy 1 gram 8-14 tablet by ity of tablet 00:00: mouth [place] 00 before Medical meals and Branch at bedtime. dicyclomine 2020-0 Yes [id number] 10mg Take 1 U nivers (BENTYL) 10 8-14 capsule by it y of mg capsule 00:00: mouth [place] 00 every 8 Medical (eight) Branch hours as needed for Abdominal pain. ondansetron 2020-0 Yes [id number] 4mg Take 1 U nivers 4 mg 8-14 tablet by ity of disintegrat 00:00: mouth [place] ing tablet 00 every 8 Medica l (eight) Branch hours as needed for Nausea and Vomiting (N/V). sucralfate 2020-0 Yes [id number] 1g Take 1 Un gracy 1 gram 8-14 tablet by ity of tablet 00:00: mouth [place] 00 before Medical meals and Branch at bedtime. dicyclomine 2020-0 Yes [id number] 10mg Take 1 U nivers (BENTYL) 10 8-14 capsule by it y of mg capsule 00:00: mouth [place] 00 every 8 Medical (eight) Branch hours as needed for Abdominal pain. ondansetron 2020-0 Yes [id number] 4mg Take 1 U nivers 4 mg 8-14 tablet by ity of disintegrat 00:00: mouth [place] ing tablet 00 every 8 Medica l (eight) Branch hours as needed for Nausea and Vomiting (N/V). sucralfate 2020-0 Yes [id number] 1g Take 1 Un gracy 1 gram 8-14 tablet by ity of tablet 00:00: mouth [place] 00 before Medical meals and Branch at bedtime. dicyclomine 2020-0 Yes [id number] 10mg Take 1 U nivers (BENTYL) 10 8-14 capsule by it y of mg capsule 00:00: mouth [place] 00 every 8 Medical (eight) Branch hours as needed for Abdominal pain. ondansetron 2020-0 Yes [id number] 4mg Take 1 U nivers 4 mg 8-14 tablet by ity of disintegrat 00:00: mouth [place] ing tablet 00 every 8 Medica l (eight) Branch hours as needed for Nausea and Vomiting (N/V). sucralfate 2020-0 Yes [id number] 1g Take 1 Un gracy 1 gram 8-14 tablet by ity of tablet 00:00: mouth [place] 00 before Medical meals and Branch at bedtime. dicyclomine 2020-0 Yes [id number] 10mg Take 1 U nivers (BENTYL) 10 8-14 capsule by it y of mg capsule 00:00: mouth [place] 00 every 8 Medical (eight) Branch hours as needed for Abdominal pain. ondansetron 2020-0 Yes [id number] 4mg Take 1 U nivers 4 mg 8-14 tablet by ity of disintegrat 00:00: mouth [place] ing tablet 00 every 8 Medica l (eight) Branch hours as needed for Nausea and Vomiting (N/V). sucralfate 2020-0 Yes [id number] 1g Take 1 Un gracy 1 gram 8-14 tablet by ity of tablet 00:00: mouth [place] 00 before Medical meals and Branch at bedtime. dicyclomine 2020-0 Yes [id number] 10mg Take 1 U nivers (BENTYL) 10 8-14 capsule by it y of mg capsule 00:00: mouth [place] 00 every 8 Medical (eight) Branch hours as needed for Abdominal pain. ondansetron 2020-0 Yes [id number] 4mg Take 1 U nivers 4 mg 8-14 tablet by ity of disintegrat 00:00: mouth [place] ing tablet 00 every 8 Medica l (eight) Branch hours as needed for Nausea and Vomiting (N/V). sucralfate 2020-0 Yes [id number] 1g Take 1 Un gracy 1 gram 8-14 tablet by ity of tablet 00:00: mouth [place] 00 before Medical meals and Branch at bedtime. dicyclomine 2020-0 Yes [id number] 10mg Take 1 U nivers (BENTYL) 10 8-14 capsule by it y of mg capsule 00:00: mouth [place] 00 every 8 Medical (eight) Branch hours as needed for Abdominal pain. ondansetron 2020-0 Yes [id number] 4mg Take 1 U nivers 4 mg 8-14 tablet by ity of disintegrat 00:00: mouth [place] ing tablet 00 every 8 Medica l (eight) Branch hours as needed for Nausea and Vomiting (N/V). sucralfate 2020-0 Yes [id number] 1g Take 1 Un gracy 1 gram 8-14 tablet by ity of tablet 00:00: mouth [place] 00 before Medical meals and Branch at bedtime. dicyclomine 2020-0 Yes [id number] 10mg Take 1 U nivers (BENTYL) 10 8-14 capsule by it y of mg capsule 00:00: mouth [place] 00 every 8 Medical (eight) Branch hours as needed for Abdominal pain. ondansetron 2020-0 Yes [id number] 4mg Take 1 U nivers 4 mg 8-14 tablet by ity of disintegrat 00:00: mouth [place] ing tablet 00 every 8 Medica l (eight) Branch hours as needed for Nausea and Vomiting (N/V). sucralfate 2020-0 Yes [id number] 1g Take 1 Un gracy 1 gram 8-14 tablet by ity of tablet 00:00: mouth [place] 00 before Medical meals and Branch at bedtime. dicyclomine 2020-0 Yes [id number] 10mg Take 1 U nivers (BENTYL) 10 8-14 capsule by it y of mg capsule 00:00: mouth [place] 00 every 8 Medical (eight) Branch hours as needed for Abdominal pain. ondansetron 2020-0 Yes [id number] 4mg Take 1 U nivers 4 mg 8-14 tablet by ity of disintegrat 00:00: mouth [place] ing tablet 00 every 8 Medica l (eight) Branch hours as needed for Nausea and Vomiting (N/V). omeprazole 2020-0 2020- No [id number] 20mg Take 1 U nivers 20 mg 8-14 09-14 capsule by ity of capsule 00:00: 04:59 mouth [place] 00 :00 daily for Medical 30 days. Branch omeprazole 2020-0 2020- No [id number] 20mg Take 1 U nivers 20 mg 8-14 09-14 capsule by ity of capsule 00:00: 04:59 mouth [place] 00 :00 daily for Medical 30 days. Branch omeprazole 2020-0 2020- No [id number] 20mg Take 1 U nivers 20 mg 8-14 09-14 capsule by ity of capsule 00:00: 04:59 mouth [place] 00 :00 daily for Medical 30 days. Branch omeprazole 2020-0 2020- No [id number] 20mg Take 1 U nivers 20 mg 07-15 capsule by ity of capsule 00:00: 04:59 mouth [place] 00 :00 daily for Medical 30 days. Branch omeprazole 2020-0 2020- No [id number] 20mg Take 1 U nivers 20 mg 07-15 capsule by ity of capsule 00:00: 04:59 mouth [place] 00 :00 daily for Medical 30 days. Branch omeprazole 2020-0 2020- No [id number] 20mg Take 1 U nivers 20 mg 07-15 capsule by ity of capsule 00:00: 04:59 mouth [place] 00 :00 daily for Medical 30 days. Branch omeprazole 2020-0 2020- No [id number] 20mg Take 1 U nivers 20 mg 07-15 capsule by ity of capsule 00:00: 04:59 mouth [place] 00 :00 daily for Medical 30 days. Branch omeprazole 2020-0 2020- No [id number] 20mg Take 1 U nivers 20 mg 07-15 capsule by ity of capsule 00:00: 04:59 mouth [place] 00 :00 daily for Medical 30 days. [place] enoxaparin 2019-0 Yes 40mg 40 mg, Unive rs (LOVENOX) 4-21 Subcutaneo ity of injection 14:00: [place], [place]ILY, [place] 40 mg 00 First dose Medical on [facility] 03/22/20 at 0900, Until Discontinu ed, Routine ondansetron 2019-0 Yes 4mg 4 mg, Slow Univers (ZOFRAN 4-21 IV Push, ity of (PF)) 09:23: Q6HPRN, [place] injection 4 44 Starting Medi dorothy mg [facility] 03/22/20 at 0423, Until Discontinu ed, Routine, Nausea and Vomiting (N/V) ketorolac 2019-0 Yes 15mg 15 mg, Univer s (TORADOL) 4-21 Slow IV ity of injection 09:23: Push, [place] 15 mg 14 Q6HPRN, 4 Medical doses, Branch Starting [facility] 03/22/20 at 0423, Until Discontinu ed, Routine, chest pain
Fa culty member approving Restricted medication : SANJAY LIND acetaminoph Yes 650mg 650 mg, Un gracy en 4-21 Oral, ity of (TYLENOL) 09:22: Q6HPRN, [place] tablet 650 49 Starting Medic al mg Tue [place] 03/22/20 at 0422, Until Discontinu ed, Routine, Pain (scale 1-3) ondansetron 2020- No 4mg 4 mg, Slow Univers (ZOFRAN -22 03- IV Push, ity of (PF)) 07:15: 07:14 ONCE, 1 [place] injection 4 00 :00 dose, Tue Med ical mg 03/22/20 at Branch 0215, MATTHEW ondansetron 2018-12 2020- No [id number] 4mg Take 1 Univers (ZOFRAN 2-25 -21 tablet by ity of ODT) 4 mg 00:00: 00:00 mouth [place] disintegrat 00 :00 every 8 Medic al ing tablet (eight) Branch hours as needed for Nausea and Vomiting (N/V). ketorolac 2018-12 2020- No [id number] 10mg Take 1 Univers 10 mg 2-25 -21 tablet by ity of tablet 00:00: 00:00 mouth [place] 00 :00 every 6 Medical (six) Branch hours as needed for Pain (scale 1-3). No known No Univers medications [facility] No known No Univers medications [facility] No known No Univers medications [facility] No known No Univers medications [facility] No known No Univers medications [facility] Immunizations Ordered Filled Immunization Date Status Comments [facility] e Immunization Name Name Influenza Virus 2017-09-26 Completed Universit y of Vaccine [facility] IM 3+ 00:00:00 [facility] Influenza Virus 2017-09-26 Completed Universit y of Vaccine Quad IM 3+ 00:00:00 [facility] Influenza Virus 2017-09-26 Completed Universit y of Vaccine Quad IM 3+ 00:00:00 [facility] Influenza Virus 2017-09-26 Completed Universit y of Vaccine [facility] IM 3+ 00:00:00 [facility] Influenza Virus 2017-09-26 Completed Universit y of Vaccine Quad IM 3+ 00:00:00 [facility] Influenza Virus 2017-09-26 Completed Universit y of Vaccine Quad IM 3+ 00:00:00 [facility] Influenza Virus 2017-09-26 Completed Universit y of Vaccine Quad IM 3+ 00:00:00 [facility] Influenza Virus 2017-09-26 Completed Universit y of Vaccine Quad IM 3+ 00:00:00 [facility] Influenza Virus 2017-09-26 Completed Universit y of Vaccine Quad IM 3+ 00:00:00 [facility] Influenza Virus 2017-09-26 Completed Universit y of Vaccine Quad IM 3+ 00:00:00 [facility] Influenza Virus 2017-09-26 Completed Universit y of Vaccine Quad IM 3+ 00:00:00 [facility] Influenza Virus 2017-09-26 Completed Universit y of Vaccine Quad IM 3+ 00:00:00 [facility] Influenza Virus 2017-09-26 Completed Universit y of Vaccine Quad IM 3+ 00:00:00 [facility] Influenza Virus 2017-09-26 Completed Universit y of Vaccine [facility] IM 3+ 00:00:00 [facility] Influenza Virus 2017-09-26 Completed Universit y of Vaccine Quad IM 3+ 00:00:00 [facility] Influenza Virus 2017-09-26 Completed Universit y of Vaccine [facility] IM 3+ 00:00:00 [facility] Influenza Virus 2017-09-26 Completed Universit y of Vaccine Quad IM 3+ 00:00:00 [facility] Vital Signs Vital Name Observation Time Observation Value Comments Source Systolic blood 2020-12-26 115 mm[Hg] University of pressure 09:00:00 [facility] Diastolic blood 2020-12-26 76 mm[Hg] [place] o f pressure 09:00:00 [facility] Heart rate 2020-12-26 78 /min [facility] 09:00:00 [facility] Body temperature 2020-12-26 36.22 Yarelis [facility] 09:00:00 [facility] Respiratory rate 2020-12-26 16 /min [facility] 09:00:00 [facility] Oxygen saturation 2020-12-26 100 /min [facility] in Arterial blood 09:00:00 [facility] by Pulse oximetry [place] Body weight 2020-12-26 53.978 kg [facility] 00:27:00 [facility] BMI 2020-12-26 24.04 kg/m2 University of 00:27:00 [facility] Systolic blood 2020-12-26 115 mm[Hg] University of pressure 09:00:00 [facility] Branch Diastolic blood 2020-12-26 76 mm[Hg] University o f pressure 09:00:00 [facility] Heart rate 2020-12-26 78 /min University of 09:00:00 [facility] Body temperature 2020-12-26 36.22 Yarelis University of 09:00:00 [facility] Respiratory rate 2020-12-26 16 /min University of 09:00:00 [facility] Oxygen saturation 2020-12-26 100 /min University of in Arterial blood 09:00:00 [facility] by Pulse oximetry Branch Body weight 2020-12-26 53.978 kg University of :: [facility] BMI 2020-12-26 24.04 kg/m2 University of ::00 [facility] Systolic blood 2020-12-25 92 mm[Hg] University of pressure 22:30:00 [facility] Diastolic blood 2020-12-25 59 mm[Hg] University o f pressure 22:30: [facility] Heart rate 2020-12-25 91 /min University of :30:00 [facility] Respiratory rate 2020-12-25 14 /min University of :30:00 [facility] Oxygen saturation 2020-12-25 100 /min University of in Arterial blood 22:30:00 [facility] by Pulse oximetry Branch Body temperature 2020-12-25 36.89 Yarelis University of 16:07:00 [facility] Body height 2020-12-25 149.9 cm University of 16:07:00 [facility] Body weight 2020-12-25 53.978 kg University of 16:07:00 [facility] BMI 2020-12-25 24.04 kg/m2 University of 16:07:00 [facility] Systolic blood 2020-12-25 92 mm[Hg] University of pressure 22:30:00 [facility] Branch Diastolic blood 2020-12-25 59 mm[Hg] University o f pressure 22:30:00 [facility] Heart rate 2020-12-25 91 /min University of 22:30:00 [facility] Branch Respiratory rate 2020-12-25 14 /min University of 22:30:00 [facility] Oxygen saturation 2020-12-25 100 /min [facility] in Arterial blood 22:30:00 [facility] by Pulse oximetry Branch Body temperature 2020-12-25 36.89 Yarelis University of 16:07:00 [facility] Body height 2020-12-25 149.9 cm University of 16:07:00 [facility] Body weight 2020-12-25 53.978 kg University of 16:07:00 [facility] BMI 2020-12-25 24.04 kg/m2 University of 16:07:00 [facility] Systolic blood 2020-07-26 146 mm[Hg] University of pressure 20:54:00 [facility] Diastolic blood 2020-07-26 96 mm[Hg] University o f pressure 20:54:00 [facility] Heart rate 2020-07-26 91 /min University of 19:55:00 [facility] Body temperature 2020-07-26 36.78 Yarelis University of 19:55:00 [facility] Respiratory rate 2020-07-26 16 /min University of 19:55:00 [facility] Body height 2020-07-26 172.7 cm University of 19:55:00 [facility] Body weight 2020-07-26 54.148 kg University of 19:55:00 [facility] BMI 2020-07-26 18.15 kg/m2 University of 19:55:00 [facility] Systolic blood 2020-07-15 119 mm[Hg] University of pressure 23:00:00 [facility] Diastolic blood 2020-07-15 80 mm[Hg] University o f pressure 23:00:00 [facility] Heart rate 2020-07-15 79 /min University of 23:00:00 [facility] Respiratory rate 2020-07-15 20 /min University of 23:00:00 [facility] Oxygen saturation 2020-07-15 96 /min [facility] in Arterial blood 23:00:00 [facility] by Pulse oximetry Branch Body temperature 2020-07-15 37.11 Yarelis University of 18:21:00 [facility] Body weight 2020-07-15 52.164 kg University of 18:21:00 [facility] BMI 2020-07-15 17.49 kg/m2 University of 18:21:00 [facility] Body temperature 2020-06-12 36.89 Yarelis University of 02:50:00 [facility] Respiratory rate 2020-06-12 24 /min University of 02:50:00 [facility] Body weight 2020-06-12 50.803 kg University of 02:50:00 [facility] BMI 2020-06-12 17.03 kg/m2 University of 02:50:00 [facility] Oxygen saturation 2020-06-12 98 /min University of in Arterial blood 02:50:00 [facility] by Pulse oximetry [place] Systolic blood 2020-06-12 141 mm[Hg] University of pressure 02:50:00 [facility] Diastolic blood 2020-06-12 105 mm[Hg] University o f pressure 02:50:00 [facility] Heart rate 2020-06-12 108 /min University of 02:50:00 [facility] Systolic blood 2020-03-22 131 mm[Hg] University of pressure 16:32:00 [facility] Diastolic blood 2020-03-22 81 mm[Hg] University o f pressure 16:32:00 [facility] Heart rate 2020-03-22 70 /min University 16:32:00 [facility] Body temperature 2020-03-22 37.06 Yarelis University 16:32:00 [facility] Respiratory rate 2020-03-22 18 /min University 16:32:00 [facility] Oxygen saturation 2020-03-22 97 /min [facility] in Arterial blood 16:32:00 [facility] by Pulse oximetry [place] Body height 2020-03-22 172.7 cm patient stated University of 09:15:00 height on [facility] admission. [place] Body weight 2020-03-22 54.942 kg bedscale upon University of 09:15:00 admission to [facility] BMI 2020-03-22 18.42 kg/m2 University of 09:15:00 [facility] Procedures Procedure Date / Time Performing Clinician Source Performed XR HAND 3+ VW LEFT 2020-12-26 09:21:04 Yonas Perea [facility] CT HEAD WO CONTRAST 2020-12-26 05:48:00 Yonas Perea [facility] ETHANOL 2020-12-25 21:54:00 Mynor Hollis [facility] ETHANOL 2020-12-25 20:21:00 Mynor Hollis [facility] POCT TEST 2020-12-25 18:07:00 Mynor Hollis [facility] ADC / LCC - DRUG SCREEN 2020-12-25 18:05:00 Mynor Hollis [facility] TRIAGE Medical Branch XR KUB 2020-12-25 17:06:45 Mynor Hollis [facility] COVID-19 (ID NOW RAPID 2020-12-25 16:55:00 Mynor Hollis [facility] TESTING) Medical Branch BASIC METABOLIC PANEL 2020-12-25 16:19:00 Mynor Hollis [facility] (NA, K, CL, CO2, Medical Branch GLUCOSE, BUN, CREATININE, CA) ETHANOL 2020-12-25 16:19:00 Mynor Hollis [facility] CBC WITH DIFF 2020-12-25 16:19:00 Mynor Hollis [facility] ASSIGNMENT OF BENEFITS 2020-07-26 19:40:02 Doctor Unassigned, No [facility] CT ABDOMEN PELVIS W 2020-07-15 22:13:[address] [facility] CONTRAST [facility] POCT TEST 2020-07-15 18:47:00 Singer [facility] COMP. METABOLIC PANEL 2020-07-15 18:45:00 Singer [facility] ([id number]) Medical Branch CBC WITH DIFF 2020-07-15 18:45:00 Singer [facility] URINALYSIS 2020-07-15 18:45:00 [facility] COVID-[facility] (ID NOW RAPID 2020-07-15 18:45:00 Singer [facility] TESTING) Medical Branch CONSENT/REFUSAL FOR 2020-07-15 18:15:15 [facility] Branch XR CHEST 1 VW 2020-06-12 21:33:46 Andrew Limon [facility] NOTICE OF PRIVACY 2020-06-12 20:57:27 Doctor Unassigned, No [facility] PRACTICES Name Medical Branch CONSENT/REFUSAL FOR 2020-06-12 20:53:21 [facility] Name Medical Branch ECHO ROUTINE W/DOPPLER 2020-03-22 14:40:35 Alex Thomas [facility] XR CHEST 1 VW COVID 2020-03-22 07:40:01 Shun Benedict [facility] CORONAVIRUS COVID-19 2020-03-22 07:16:00 Shun Benedict [facility] LIPASE 2020-03-22 07:14:00 Shun Benedict [facility] TROPONIN I 2020-03-22 07:14:00 Shun Benedict [facility] COMP. METABOLIC PANEL 2020-03-22 07:14:00 Shun Benedict [facility] ([id number]) [facility] CBC WITH DIFFERENTIAL 2020-03-22 07:14:00 Shun Benedict [facility] EKG-12 LEAD 2020-03-22 07:07:34 Shun Benedict [facility] EKG-12 LEAD 2020-03-22 07:01:19 Shun Benedict [facility] Encounters Start End Encounter Admission Attending Care Care Encounter Source Date/Time Date/Time Type Type Clinicians Facility Department ID 2021-09-30 Emergency [facility] [id number] Univers 19:11:[address] [facility] 2021-09-30 Emergency [facility] [id number] Univers 19:08:[address] [facility] 2021-09-29 Emergency [facility] [id number] Univers 12:33:[address] [facility] 2021-09-29 Emergency [facility] [id number] Univers 06:13:55 ity of [facility] 2021-09-29 Emergency [facility] [id number] Univers [facility] PRETTY [id number] [facility] 00:35:00 [id number] [facility] 2020-02-17 Inpatient [facility] PRETTY [id number] [facility] 15:56:00 [id number] [facility] 2020-12-25 2020-12-26 Emergency Brit, TRAUMA [id number] Univers 18:26:00 04:04:00 Yonas B CENTER [id number] [id number] [address] 2020-12-25 2020-12-26 Emergency Brit, TRAUMA [id number] 18:26:00 04:04:00 Yonas B CENTER [id number] [id number] [id number] 014 2020-12-25 2020-12-25 Emergency Harkey, [facility] [id number] Univers 10:03:00 18:22:00 Mynor A Health [id number] it [place] [facility] [id number] [address] ([facility]) 2020-12-25 2020-12-25 Emergency Harkey, [facility] [id number] 10:03:00 18:22:00 Mynor A Health [id number] League 4.2.7.2.686 [facility] [id number] [address] ([facility]) 2020-08-17 2020-08-17 [facility] [id number] [facility] 06:29:56 23:59:00 Encounter Roshunda R SPECIALTY [id number] ity [place] C[place] AT [id number] Az maryam [address] 2020-08-17 2020-08-17 [facility] [id number] 06:29:56 23:59:00 Encounter Roshunda R SPECIALTY [id number] CARE 4.2.7.2.686 CENTER AT [id number] [address] 2020-08-17 2020-08-17 [facility] [id number] Univers 15:30:00 15:30:00 IVA [id number] ity o f [facility] 2020-08-17 2020-08-17 [facility] [id number] Univers 00:00:00 00:00:00 DKNDA ity o f [facility] 2020-08-17 2020-08-17 Outpatient R PAM [facility] [id number] Univers 00:00:00 00:00:00 ROSWERNERNDA ity o f [facility] 2020-08-10 2020-08-10 [facility] [id number] 00:00:00 00:00:00 Dknda R EDUCATIONAL GUIDANCE COUNSELOR [id number] REGIONAL 4.2.7.2.686 MATERNAL [id number] & CHILD [address] [place] [address] 2020-08-10 2020-08-10 [facility]phone [facility] [id number] Univers 00:00:00 00:00:00 Deana R EDUCATIONAL GUIDANCE COUNSELOR [id number] ity of [facility] 4.2.7.2.686 Jose as MATERNAL [id number] Med ical & CHILD [address] [place] [address] 2020-07-26 2020-07-26 Office [facility] [id number] Univers 14:44:48 15:48:25 [facility] EDUCATIONAL GUIDANCE COUNSELOR 350.1.13.10 ity of [facility] 4.2.7.2.686 Jose as MATERNAL [id number] [facility] & [address] 2020-07-26 2020-07-26 [facility]patient [facility] [id number] Univers 14:00:00 14:00:00 IVA [id number] ity o [place] [facility] 2020-07-26 2020-07-26 Outpatient R PAM [facility] [id number] Univers 14:00:00 14:00:00 DKNDA ity o f [facility] 2020-07-26 2020-07-26 Orders Doctor WARD [id number] Univers 00:00:00 00:00:00 Only Unassigned, DERIAN 350.1.13.10 ity of [place] [facility] 4.2.7.2.686 Jose as [id number] [address] 2020-07-15 2020-07-15 Emergency [facility] [id number] Univers 13:25:00 19:02:00 Dhruv Wister 350.1.13.10 i ty of [place] 4.2.7.2.686 [facility] [id number] [address] 2020-06-14 2020-06-14 Telephone SYLVIA Shi 1.2.840.114 [id number] Univers 00:00:00 00:00:00 Kaylah MENARD 350.1.13.10 i ty of [facility] 4.2.7.2.686 Jose [id number] [address] 2020-06-12 2020-06-12 Emergency [facility] [id number] Univers 15:56:18 17:25:00 Andrew Christian 350.1.13.10 i ty of [place] 4.2.7.2.686 [place] [id number] [address] 2020-06-11 2020-06-11 Emergency [facility] [id number] Univers 21:45:46 22:38:00 Dhruv Gonzales 350.1.13.10 i ty of [place] 4.2.7.2.686 [facility] [id number] [address] 2020-04-07 2020-04-07 Outpatient R NICOLE [facility] [id number] Univers 13:30:00 13:30:00 ELO stanford f [facility] 2020-04-07 2020-04-07 Telemedici [facility] [id number] Univers 07:52:01 08:22:01 ne Visit Elo Gonzales 350.1.13.10 ity of [place] 4.2.7.2.686 [facility] Professio [id number] Az dical [address] 2020-04-04 2020-04-04 Emergency E MHBL MHBL [id number] MHBL 16:52:00 16:52:00 2020-03-29 2020-03-29 Outpatient R AL [facility] [id number] Univers 09:40:00 09:40:00 CHRIS tucker o f [facility] 2020-03-29 2020-03-29 [facility]medici [facility] [id number] Univers 07:59:20 08:14:20 ne Visit Chris Gonzales 350.1.13.10 ity of [place] 4.2.7.2.686 Sylvie horton Professio [id number] Az dical maria [facility] 059 [facility] 2020-03-22 2020-03-22 Emergency Shun Benedict [facility] 1.2.[id number] [facility] 02:10:55 13:40:00 Sanjay Lind 350.1.13.10 ity of [place] 4.2.7.2.686 [facility] [id number] [facility] [address] [place] 2020-03-22 2020-03-22 Outpatient X DIOGO [facility] [id number] [facility] 02:10:55 13:40:[address] [facility] 2019-08-07 2019-08-07 Emergency E MHCY MHCY 7503 MHCY 13:27:00 13:27:00 2019-04-08 2019-04-08 Emergency E MHCY MHCY 7502 MHCY 14:22:00 14:22:00 2019-03-31 2019-03-31 Emergency E MHCY MHCY 7501 MHCY 14:37:00 14:37:00 Results Test Description Test Time Test Comments Results Result Comments Source ETHANOL 2020-12-25 22:12:00 Test Item Value Reference Range Interpretation Comme nts ALCOHOL (test code = 3947629838) 80 mg/dL CINDI (test code = CINDI) Toxic Greater than or equal to 80 mg/dL. NOTE : Whole blood values are approximately 10% to 15% lower than serum and plasma. [facility] 20:38:00 Test Item Value Reference Range Interpretation Comments ALCOHOL (test code = 108 mg/dL 3748977482) CINDI (test code = Toxic Greater than or CINDI) equal to 80 mg/dL. NOTE: Whole blood values are approximately 10% to 15% lower than serum and plasma. [facility] - DRUG SCREEN [id number] 18:24:00 Test Item Value Reference Range Interpretation Comments BENZO U (test code = Negative Negative 9841697702) SANDRA U (test code = Negative Negative 9256746672) AMPHET (test code = Negative Negative 0040837326) THC (test code = Negative Negative 8157740390) METHADONE (test code = Negative Negative 6206667810) Meth U (test code = Negative Negative 7343087411) OPIATES (test code = Negative Negative 6723016999) Cocaine Metabolite (test Presumptive Positive Negative A code = 9641725193) PROPOXY (test code = Negative Negative 9940976141) Tric U (test code = Negative Negative 5186976533) PCP (test code = Negative Negative 3773899224) OXYCOD (test code = Negative Negative 3130419787) CINDI (test code = CINDI) Urine Drug Cutoff Ranges Benzodiazepines: ? ? 150 ng/mLBarbiturates: ?200 ng/mLAmphetamine: ? 500 ng/mLCannabinoids: ?50 ?ng/mLMethadone: ? 200 ng/mLMethamphetamine: ? ? 500 ng/mL Opiates: ? 100 ng/mL or 2000 ng/mLCocaine: ? 150 ng/mLPropoxyphene: ?300 ng/mLTricyclics: ?300 ng/mLOxycodone: ? 100 ng/mLPCP: ? 25 ?ng/mL The results are to be used only for medical (i.e., treatment) purposes. Unconfirmed screening results must not be used for non-medical purposes (e.g., employment testing, legal testing). Lab Interpretation (test Abnormal code = 32316-3) [facility] [id number] 18:07:00 Test Item Value Reference Range Interpretation Comments POCT PREG (test code = 1605) Negative On board controls acceptable with C Present Line (test code = 3574) Lab Interpretation (test code = Normal 48791-9) [facility]villeXR [id number] 17:36:18 Nonobstructive bowel gas pattern. Preliminary Report Dictated by Resident: Ander Melton MD., have reviewed this study and agree with the abovereport.EXAM: XR KUB HISTORY: 40 years-old female; Indication for study: rectal pain. COMPARISON: CT abdomen pelvis dated 07/15/2020 FINDINGS:The bowel gas pattern is non- obstructive. No abnormal calcifications or radiopaque stones are identified. No acute bony abnormalities are noted. Cholecystectomy clips are noted. Theurinary bladder isprominent. [facility], Radiant Results Inft User - 12/25/2020 11:37 AM CSTEXAM: XR KUBHISTORY: 40 years-old female; Indication for study: rectal pain.COMPARISON: CT abdomen pelvis dated 07/15/2020FINDINGS:Thebowel gas pattern is non-obstructive. No abnormal calcifications or radiopaque stones are identified. No acute bony abnormalities are noted. Cholecystectomy clips are noted. Theurinary bladder is prominent.IMPRESSIONNonobstructive bowel gas pattern.Preliminary Report Dictated by Resident: Ander Sahu MD., have reviewed this study and agree with the abovereport.[facility] (ID NOW RAPID TESTING)2020-12-25 17:13:00 Test Item Value Reference Range Interpretation Comments SARS-CoV-2 Rapid ID NOW Not Detected Not Detected (test code = 40575-7) CINDI (test code = CINDI) ID NOW COVID-19 Assay is an isothermal nucleic acid amplification test intended for the qualitative detection of nucleic acid from SARS-CoV-2 viral RNA in nasopharyngeal (PRECISION MACHINE OPERATOR) specimens. It is used under Emergency Use Authorization (EUA) by FDA. The limit of detection (LOD) of the assay is 125 Genome Equivalents/mL. A positive result is indicative of the presence of SARS-CoV-2 RNA. ?Clinical correlation with patient history and other diagnostic [...] for repeat patient testing if clinically indicated. Lab Interpretation Normal (test code = 02899-7) [facility]2021-[facility]-24 16:37:00 Test Item Value Reference Range Interpretation Comments ALCOHOL (test code = 196 mg/dL 4680897977) CINDI (test code = Toxic Greater than or CINDI) equal to 80 mg/dL. NOTE: Whole blood values are approximately 10% to 15% lower than serum and plasma. [facility] METABOLIC PANEL (NA, K, CL, CO2, GLUCOSE, BUN, CREATININE, CA)2020-12-25 16:37:00 Test Item Value Reference Range Interpretation Comments NA (test code = 144 mmol/L 135-145 9407984944) K (test code = 4.4 mmol/L 3.5-5 8482605725) CL (test code = 109 mmol/L 98-108 H 0654388643) CO2 TOTAL (test code = 22 mmol/L 23-31 L 2152092656) AGAP (test code = 2-16 3279902638) BUN (test code = 9 mg/dL 7-23 7168198556) GLUCOSE (test code = 103 mg/dL 70-110 3884015623) CREATININE (test code = 0.66 mg/dL 0.5-1.04 7450161263) CALCIUM (test code = 8.9 mg/dL 8.6-10.6 1517096361) eGFR Calculation mL/min/1.73m2 (Non-) (test code = 9963554574) eGFR Calculation mL/min/1.73m2 () (test code = 3629964828) CINDI (test code = CINDI) Association of Glomerular Filtration Rate (GFR) and Staging of Kidney Disease* + --+ --+ ------+| GFR (mL/min/1.73 m2) ?| With Kidney Damage ?| ?Without Kidney Damage+ --------+ --------+ +| ?>90 ?| ?Stage one ?| ? Normal ?+ ---+ ---+ -------+| ?60-89 ?| ?Stage two ?| ? Decreased GFR ? + --+ --+ ------+| ?30-59 ?| ?Stage three ?| ? Stage three ? + --+ --+ ------+| ?15-29 ?| ?Stage four ? | ? Stage four ?+ ---+ ---+ -------+| ?<15 (or dialysis) ? ?| ?Stage five ? | ? Stage five ?+ ---+ ---+ -------+ *Each stage assumes the associated GFR level has been in effect for at least three months. ?Stages 1 to 5, with or without kidney disease, indicate chronic kidney disease. Notes: Determination of stages one and two (with eGFR >59mL/min/1.73 m2) requires estimation of kidney damage for at least three months as defined by structural or functional abnormalities of the kidney, manifested by either:Pathological abnormalities or Markers of kidney damage (including abnormalities in the composition of the blood or urine or abnormalities in imaging tests). Lab Interpretation Abnormal (test code = 99794-2) [facility] WITH [id number] 16:25:00 Test Item Value Reference Range Interpretation Comments WBC (test code = See_Comment H [Automated 1190-2) message] The sy stem which generated this result transmitted reference range : 4.30 - 11.10 10*3/?L. The reference range was not used to interpret this result as normal/abnormal . RBC (test code = See_Comment [Automated 059-8) message] The sy stem which generated this result transmitted reference range : 3.93 - 5.25 10*6/?L. The reference range was not used to interpret this result as normal/abnormal . HGB (test code = 14.0 g/dL 11.6-15 718-7) HCT (test code = 40.5 % 35.7-45.2 4544-3) MCV (test code = 91.4 fL 80.6-95.5 787-2) MCH (test code = 31.6 pg 25.9-32.8 785-6) MCHC (test code = 34.6 g/dL 31.6-35.1 786-4) RDW-SD (test code = 41.1 fL 39-49.9 05378-5) RDW-CV (test code = 12.3 % 12-15.5 788-0) PLT (test code = See_Comment H [Automated 777-3) message] The sy stem which generated this result transmitted reference range : 166 - 358 10*3/ ?L. The reference r carlos was not used to interpret this result as normal/abnormal . MPV (test code = 9.2 fL 9.5-12.9 L 63643-5) NRBC/100 WBC (test See_Comment [Automat ed code = 0590031090) message] The system which generated this result transmitted reference range : 0.0 - 10.0 /100 WBCs. The refer ence range was not u sed to interpret th is result as normal/abnormal . NRBC x10^3 (test code <0.01 See_Comment [Auto mated = 9893108711) message] The s ystem which generated this result transmitted reference range : 10*3/?L. The reference range was not used to interpret this result as normal/abnormal . GRAN MAT (NEUT) % 68.0 % (test code = 770-8) IMM GRAN % (test code 0.50 % = 5951090061) LYMPH % (test code = 20.5 % 736-9) MONO % (test code = 6.6 % 5905-5) EOS % (test code = 3.9 % 713-8) BASO % (test code = 0.5 % 706-2) GRAN MAT x10^3(ANC) 8.09 10*3/uL 1.88-7.09 H (test code = 7349390525) IMM GRAN x10^3 (test 0.06 10*3/uL 0-0.06 code = 0778995881) LYMPH x10^3 (test code 2.43 10*3/uL 1.32-3.29 = 731-0) MONO x10^3 (test code 0.78 10*3/uL 0.33-0.92 = 742-7) EOS x10^3 (test code = 0.46 10*3/uL 0.03-0.39 H 711-2) BASO x10^3 (test code 0.06 10*3/uL 0.01-0.07 = 704-7) Lab Interpretation Abnormal (test code = 76551-1) [facility] (ID NOW RAPID TESTING)2020-07-15 19:30:00 Test Item Value Reference Range Interpretation Comments SARS-CoV-2 Rapid ID NOW Not Detected Not Detected (test code = 45490-8) CINDI (test code = CINDI) ID NOW COVID-19 Assay is an isothermal nucleic acid amplification test intended for the qualitative detection of nucleic acid from SARS-CoV-2 viral RNA in nasopharyngeal (PRECISION MACHINE OPERATOR) specimens. It is used under Emergency Use Authorization (EUA) by FDA. The limit of detection (LOD) of the assay is 125 Genome Equivalents/mL. A positive result is indicative of the presence of SARS-CoV-2 RNA. ?Clinical correlation with patient history and other diagnostic [...] for repeat patient testing if clinically indicated. Lab Interpretation Normal (test code = 36949-7) [facility]. METABOLIC PANEL (11190)2020-07-15 19:20:00 Test Item Value Reference Range Interpretation Comments NA (test code = 136 mmol/L 135-145 8214533062) K (test code = 4.6 mmol/L 3.5-5 5135309843) CL (test code = 102 mmol/L 98-108 5117300785) CO2 TOTAL (test code = 21 mmol/L 23-31 L 4863231633) AGAP (test code = 2-16 9217337977) BUN (test code = 7 mg/dL 7-23 7971244924) GLUCOSE (test code = 102 mg/dL 70-110 6076765792) CREATININE (test code = 0.82 mg/dL 0.5-1.04 3663484869) TOTAL BILI (test code = 0.8 mg/dL 0.1-1.9 0387332972) CALCIUM (test code = 9.8 mg/dL 8.6-10.6 0617101132) T PROTEIN (test code = 8.4 g/dL 6.3-8.2 H 7154408412) ALBUMIN (test code = 4.8 g/dL 3.5-5 6173544730) ALK PHOS (test code = 102 U/L 34-122 9822392496) ALTv (test code = 25 U/L 5-35 1742-6) AST(SGOT) (test code = 41 U/L 13-40 H 5487326931) eGFR Calculation mL/min/1.73m2 (Non-) (test code = 6364462560) eGFR Calculation mL/min/1.73m2 () (test code = 5848648095) CINDI (test code = CINDI) Association of Glomerular Filtration Rate (GFR) and Staging of Kidney Disease* + --+ --+ ------+| GFR (mL/min/1.73 m2) ?| With Kidney Damage ?| ?Without Kidney Damage+ --------+ --------+ +| ?>90 ?| ?Stage one ?| ? Normal ?+ ---+ ---+ -------+| ?60-89 ?| ?Stage two ?| ? Decreased GFR ? + --+ --+ ------+| ?30-59 ?| ?Stage three ?| ? Stage three ? + --+ --+ ------+| ?15-29 ?| ?Stage four ? | ? Stage four ?+ ---+ ---+ -------+| ?<15 (or dialysis) ? ?| ?Stage five ? | ? Stage five ?+ ---+ ---+ -------+ *Each stage assumes the associated GFR level has been in effect for at least three months. ?Stages 1 to 5, with or without kidney disease, indicate chronic kidney disease. Notes: Determination of stages one and two (with eGFR >59mL/min/1.73 m2) requires estimation of kidney damage for at least three months as defined by structural or functional abnormalities of the kidney, manifested by either:Pathological abnormalities or Markers of kidney damage (including abnormalities in the composition of the blood or urine or abnormalities in imaging tests). Lab Interpretation Abnormal (test code = 60575-2) [facility]:00 Test Item Value Reference Range Interpretation Comments APPEARANCE (test code = Hazy Clear A 2143851186) COLOR (test code = Yvonne Yellow A 8367320978) PH (test code = 4.8-8.0 8255340211) SP GRAVITY (test code = 1.003-1.030 1390597295) GLU U QUAL (test code = Normal Normal 6507817278) BLOOD (test code = Negative Negative 9225239926) KETONES (test code = 5 mg/dL Negative A 1374221705) PROTEIN (test code = 30 mg/dL Negative A 2887-8) UROBILIN (test code = 2.0 mg/dL Normal A 8667342145) BILIRUBIN (test code = Negative Negative 8973414352) NITRITE (test code = Negative Negative 3013091918) LEUK SHIRLEY (test code = 25/uL Negative A 3271054330) RBC/HPF (test code = See_Comment [Autom ated message] 7815763977) The system [employer] generated this result transmit fatemeh reference range : 0 - 3 HPF. The refe rence range was not u sed to interpret th is result as normal/abnormal . WBC/HPF (test code = See_Comment [Autom ated message] 0120436483) The system [employer] generated this result transmit fatemeh reference range : 0 - 5 HPF. The refe rence range was not u sed to interpret th is result as normal/abnormal . BACTERIA (test code = Few Negative A 9902045460) MUCOUS (test code = Moderate Negative LPF A 6969829341) SQ EPITH (test code = HPF 9869757678) HYAL CAST (test code = See_Comment H [Aut omated message] 8827972647) The system [employer] generated this result transmit fatemeh reference range : <=2 LPF. The refere nce range was not u sed to interpret th is result as normal/abnormal . Lab Interpretation (test Abnormal code = 30594-8) [facility] WITH [id number] 19:07:00 Test Item Value Reference Range Interpretation Comments WBC (test code = See_Comment H [Automated 6690-2) message] The system which generated this result transmit fatemeh reference range : 4.30 - 11.10 10*3/?L. The reference range was not used to interpret this result as normal/abnormal . RBC (test code = See_Comment [Automated 789-8) message] The system which generated this result transmit fatemeh reference range : 3.93 - 5.25 10*6/?L. The reference range was not used to interpret this result as normal/abnormal . HGB (test code = 15.6 g/dL 11.6-15 H 718-7) HCT (test code = 43.3 % 35.7-45.2 4544-3) MCV (test code = 88.2 fL 80.6-95.5 787-2) MCH (test code = 31.8 pg 25.9-32.8 785-6) MCHC (test code = 36.0 g/dL 31.6-35.1 H 786-4) RDW-SD (test code = 38.5 fL 39-49.9 L 22309-9) RDW-CV (test code = 11.9 % 12-15.5 L 788-0) PLT (test code = See_Comment [Automated 777-3) message] The system which generated this result transmit fatemeh reference range : 166 - 358 10*3/ ?L. The reference range was not u sed to interpret th is result as normal/abnormal . MPV (test code = 9.5 fL 9.5-12.9 87168-4) NRBC/100 WBC (test See_Comment [Automat ed code = 4735713515) message] The system which generated this result transmit fatemeh reference range : 0.0 - 10.0 /100 WBCs. The reference range was not used to interpret this result as normal/abnormal . NRBC x10^3 (test code <0.01 See_Comment [Auto mated = 2706356428) message] The system which generated this result transmit fatemeh reference range : 10*3/?L. The reference range was not used to interpret this result as normal/abnormal . GRAN MAT (NEUT) % 79.2 % (test code = 770-8) IMM GRAN % (test code 0.40 % = 9186111619) LYMPH % (test code = 12.9 % 736-9) MONO % (test code = 5.2 % 5905-5) EOS % (test code = 1.9 % 713-8) BASO % (test code = 0.4 % 706-2) GRAN MAT x10^3(ANC) 11.12 10*3/uL 1.88-7.09 H (test code = 3347943093) IMM GRAN x10^3 (test 0.05 10*3/uL 0-0.06 code = 5343047893) LYMPH x10^3 (test code 1.81 10*3/uL 1.32-3.29 = 731-0) MONO x10^3 (test code 0.73 10*3/uL 0.33-0.92 = 742-7) EOS x10^3 (test code = 0.27 10*3/uL 0.03-0.39 711-2) BASO x10^3 (test code 0.05 10*3/uL 0.01-0.07 = 704-7) Lab Interpretation Abnormal (test code = 48526-3) [facility] [id number] 18:47:00 Test Item Value Reference Range Interpretation Comments POCT PREG (test code = 1605) negative On board controls acceptable with present C Line (test code = 3574) POCT PREG LOT # (test code = 3575) [id number] POCT PREG TEST DATE (test code = 3576) Lab Interpretation (test code = Normal 10784-3) [facility] 1 [id number] 22:08:34 No acute cardiopulmonary process. Preliminary Report Dictated by Resident: Nataly Abdul MD., have reviewed this study and agree with theabove report.PROCEDURE: XR CHEST 1 VW CLINICAL INDICATION: chest pain TECHNIQUE: AP views of the chest. COMPARISON: None FINDINGS: The lungs are clear without consolidation. No pleural effusion orpneumothorax is seen. The heart is normal in size. No acute bony abnormality is noted. Cholecystectomy clips. [facility], Radiant Results Inft User -06/12/2020 5:09 PM CDTPROCEDURE: XR CHEST 1 VWCLINICAL INDICATION: chest pain TECHNIQUE: AP views of the chest.COMPARISON: NoneFINDINGS:The lungs are clear without consolidation. No pleural effusion or pneumothorax is seen. The heart is normal in size.No acute bony abnormality is noted. Cholecystectomy clips. IMPRESSIONNo acute cardiopulmonary process.Preliminary Report Dictated by Resident: Red House MD., have reviewed this study and agree with theabove report. [facility] VW [id number] 12:56:21 1. No acute intrathoracic abnormality, specifically no detectableradiographic findings to suggest COVID-19 pneumonia. Disclaimer: Generally, the findings on chest imaging in COVID-19 are notspecific, and overlap with other infections, including influenza, H1N1,SARS and MERS.According to the Centers for Disease Control (CDC) and the [employer], viral testing remains the only specific method of diagnosiseven if CXR or CT findings are suggestive of COVID-19. Preliminary Report Dictated by Resident: Margy Womack MD., have reviewed this study and agree with theabove report.EXAM: XR CHEST 1 VW COVID HISTORY: chest pain COMPARISON: None FINDINGS: 1. The lungs are clear. No consolidation, pleural effusion or pneumothoraxis visualized. 2. The heart is normal in size. 3. ?No acute bony abnormality. [facility], Radiant Results Inft User - 03/22/2020 7:57 AM CDTEXAM: XR CHEST 1 VW COVIDHISTORY: chest pain COMPARISON: NoneFINDINGS:1. The lungs are clear. No consolidation, pleural effusion or pneumothoraxis visualized.2. The heart is normal in size.3.No acute bony abnormality.IMPRESSION1. No acute intrathoracic abnormality, specifically no detectableradiographic findings to suggest COVID-19 pneumonia.Disclaimer: Generally, the findings on chest imaging in COVID-19 are notspecific, and overlap with other infections, including influenza, H1N1,SARS and MERS.According to the Centers for Disease Control (CDC) and the [employer], viral testing remains the only specific method of diagnosiseven if CXR or CT findings are suggestive of COVID-19. Preliminary Report Dictated by Resident: Margy Ocasio MD., have reviewed this study and agree with theabove report.[facility]. METABOLIC PANEL (21113)2020-03-22 08:04:00 Test Item Value Reference Range Interpretation Comments NA (test code = 138 mmol/L 135-145 7022856217) K (test code = 3.5 mmol/L 3.5-5 6640745127) CL (test code = 105 mmol/L 98-108 5814736957) CO2 TOTAL (test code = 22 mmol/L 23-31 L 9036805226) AGAP (test code = 2-16 4613053882) BUN (test code = 7 mg/dL 7-23 5927094047) GLUCOSE (test code = 99 mg/dL 70-110 5513719654) CREATININE (test code = 0.74 mg/dL 0.5-1.04 5880996612) TOTAL BILI (test code = 0.5 mg/dL 0.1-1.5 8304807569) CALCIUM (test code = 8.5 mg/dL 8.6-10.6 L 9804268314) T PROTEIN (test code = 6.7 g/dL 6.3-8.2 8845715360) ALBUMIN (test code = 4.1 g/dL 3.5-5 9336383348) ALK PHOS (test code = 74 U/L 34-122 2195829234) ALTv (test code = 32 U/L 5-35 1742-6) AST(SGOT) (test code = 54 U/L 13-40 H 4947796163) eGFR Calculation mL/min/1.73m2 (Non-) (test code = 6917890583) eGFR Calculation mL/min/1.73m2 () (test code = 1701716024) CINDI (test code = CINDI) Association of Glomerular Filtration Rate (GFR) and Staging of Kidney Disease* + --+ --+ ------+| GFR (mL/min/1.73 m2) ?| With Kidney Damage ?| ?Without Kidney Damage+ --------+ --------+ +| ?>90 ?| ?Stage one ?| ? Normal ?+ ---+ ---+ -------+| ?60-89 ?| ?Stage two ?| ? Decreased GFR ? + --+ --+ ------+| ?30-59 ?| ?Stage three ?| ? Stage three ? + --+ --+ ------+| ?15-29 ?| ?Stage four ? | ? Stage four ?+ ---+ ---+ -------+| ?<15 (or dialysis) ? ?| ?Stage five ? | ? Stage five ?+ ---+ ---+ -------+ *Each stage assumes the associated GFR level has been in effect for at least three months. ?Stages 1 to 5, with or without kidney disease, indicate chronic kidney disease. Notes: Determination of stages one and two (with eGFR >59mL/min/1.73 m2) requires estimation of kidney damage for at least three months as defined by structural or functional abnormalities of the kidney, manifested by either:Pathological abnormalities or Markers of kidney damage (including abnormalities in the composition of the blood or urine or abnormalities in imaging tests). Lab Interpretation Abnormal (test code = 07030-1) [facility]villeTROPON[facility] [id number] 07:57:00 Test Item Value Reference Range Interpretation Comments TROPONIN I (test <0.012 See_Comment [Automated code = 5041099344) message] The system which generated this result transmitted reference range : <=0.034 ng/mL. The reference range was not used to interpr et this result as normal/abnormal . CINDI (test code = Equal or Less than CNIDI) 0.034 ng/ml---Normal ?Note: Cardiac troponin begins to rise 3-4 hours after the onset of ischemia. Repeat in 4-6 hours if the sample was drawn within 3-4 hours of the onset of the symptom and found normal. Between 0.035 and 0.120 ng/mL--- Borderline. Questionable myocardial injury or necrosis ? ?Note: Serial measurement may be necessary to confirm or exclude the diagnosis of myocardial injury or necrosis; Clinical correlation (symptoms, EKGs, imaging studies, and others) required; Repeat in 4-6 hours if clinically indicated. ? Equal or Higher than 0.121 ng/mL---Abnormal. Myocardial Injury or Necrosis Likely ? Biotin has been reported to cause a negative bias, interpret results relative to patient's use of biotin. ? Lab Interpretation Normal (test code = 51002-2) [facility]ville[facility]ON[facility] COVID-19 [id number] 07:56:00 Test Item Value Reference Range Interpretation Comments SARS-CoV-2 (test code = Not Detected Not Detected 80122-9) CINDI (test code = CINDI) ID NOW COVID-19 Assay is an isothermal nucleic acid amplification test intended for the qualitative detection of nucleic acid from SARS-CoV-2 viral RNA in nasopharyngeal (PRECISION MACHINE OPERATOR) specimens. It is used under Emergency Use Authorization (EUA) by FDA. The limit of detection (LOD) of the assay is 125 Genome Equivalents/mL. A positive result is indicative of the presence of SARS-CoV-2 RNA. ?Clinical correlation with patient history and other diagnostic information is necessary to determine patient infection status. A negative (Not Detected) result does not preclude SARS-CoV-2 infection. Clinical correlation with patient history and other diagnostic information should be used in patient management decisions. Invalid: Please collect a new specimen for repeat patient testing if clinically indicated. Lab Interpretation Normal (test code = 36374-8) [facility]villeLIPASE, [id number] 07:45:00 Test Item Value Reference Range Interpretation Comments LIPASE (test code = 2539046612) 58 U/L 0-220 Lab Interpretation (test code = Normal 71196-4) [facility]villeCB WITH [id number] 07:30:00 Test Item Value Reference Range Interpretation Comments WBC (test code = See_Comment [Automated 6226-2) message] The sy stem which generated this result transmitted reference range : 4.30 - 11.10 10*3/?L. The reference range was not used to interpret this result as normal/abnormal . RBC (test code = See_Comment [Automated 633-8) message] The sy stem which generated this result transmitted reference range : 3.93 - 5.25 10*6/?L. The reference range was not used to interpret this result as normal/abnormal . HGB (test code = 13.6 g/dL 11.6-15 718-7) HCT (test code = 38.2 % 35.7-45.2 4544-3) MCV (test code = 89.9 fL 80.6-95.5 787-2) MCH (test code = 32.0 pg 25.9-32.8 785-6) MCHC (test code = 35.6 g/dL 31.6-35.1 H 786-4) RDW-SD (test code = 39.8 fL 39-49.9 20660-3) RDW-CV (test code = 12.1 % 12-15.5 788-0) PLT (test code = See_Comment [Automated 097-3) message] The sy stem which generated this result transmitted reference range : 166 - 358 10*3/ ?L. The reference r carlos was not used to interpret this result as normal/abnormal . MPV (test code = 9.2 fL 9.5-12.9 L 98496-7) NRBC/100 WBC (test See_Comment [Automat ed code = 2261215386) message] The system which generated this result transmitted reference range : 0.0 - 10.0 /100 WBCs. The refer ence range was not u sed to interpret th is result as normal/abnormal . NRBC x10^3 (test code <0.01 See_Comment [Auto mated = 4672026463) message] The s ystem which generated this result transmitted reference range : 10*3/?L. The reference range was not used to interpret this result as normal/abnormal . GRAN MAT (NEUT) % 62.2 % (test code = 770-8) IMM GRAN % (test code 0.50 % = 2716329783) LYMPH % (test code = 24.6 % 736-9) MONO % (test code = 7.7 % 5905-5) EOS % (test code = 4.5 % 713-8) BASO % (test code = 0.5 % 706-2) GRAN MAT x10^3(ANC) 6.71 10*3/uL 1.88-7.09 (test code = 0822047352) IMM GRAN x10^3 (test 0.05 10*3/uL 0-0.06 code = 8384812400) LYMPH x10^3 (test code 2.65 10*3/uL 1.32-3.29 = 731-0) MONO x10^3 (test code 0.83 10*3/uL 0.33-0.92 = 742-7) EOS x10^3 (test code = 0.49 10*3/uL 0.03-0.39 H 711-2) BASO x10^3 (test code 0.05 10*3/uL 0.01-0.07 = 704-7) Lab Interpretation Abnormal (test code = 61483-8) [facility]villeBAS[facility] METABOLIC [id number] 17:09:00 Test Item Value Reference Range Interpretation [...] = ALKP) Specimen comments: ccSpecimen comments: SEPSIS [id number] 17:09:00 Test Item Value Reference Range Interpretation Comments LIPASE (test code = LIP) 318 Unit/L 114-286 H Specimen comments: ccSpecimen comments: SEPSIS [id number] 17:09:00 Test Item Value Reference Range Interpretation [...] change s in troponin levelscharacter istic of [place]. Specimen comments: ccSpecimen comments: SEPSIS WORKUPPROCALCITONIN (PCT) [...] = ALKP) Specimen comments: ccSpecimen comments: SEPSIS [id number] 17:03:00 Test Item Value Reference Range Interpretation Comments LIPASE (test code = LIP) 318 Unit/L 114-286 H Specimen comments: ccSpecimen comments: SEPSIS [id number] 17:03:00 Test Item Value Reference Range Interpretation [...] change s in troponin levelscharacter istic of [place]. Specimen comments: ccSpecimen comments: SEPSIS WORKUPPROCALCITONIN (PCT) 2020-02-17 17:03:00 Test Item Value Reference Range Interpretation Comments PROCALCITONIN (PCT) (test code = NG/ML 0.00-0.10 PROCAL) Specimen comments: ccSpecimen comments: SEPSIS WORKUPLACTIC [id number] 17:01:00 Test Item Value Reference Range Interpretation Comments LACTIC ACID (test code = LACT) 1.4 mmol/L 0.4-2.0 N Specimen comments: ccBASIC METABOLIC [id number] 16:58:00 Test Item Value Reference Range Interpretation [...] = ALKP) Specimen comments: ccSpecimen comments: SEPSIS [id number] 16:58:00 Test Item Value Reference Range Interpretation Comments LIPASE (test code = LIP) 318 Unit/L 114-286 H Specimen comments: ccSpecimen comments: SEPSIS [id number] 16:58:00 Test Item Value Reference Range Interpretation [...] HE NEGATIVERESULT DOES NOT RULE OUT THE SD ESENCE OF STREP GROUP A.W HEN STREP GROUP A ANTIGEN IS DETECTED, THE P OSITIVE RESULTIS SIGNIF ICANT. NEGATIVE RESULT S REFLEX A CULTURE. FORNE GATIVE RESULTS A CULTU RE IS IN PROGRESS, RESUL T TO FOLLOW. HCG SERUM [id number] 16:55:00 Test Item Value Reference Range Interpretation Comments HCG SERUM QUAL (test code = HCGQL) NEG SCREEN NEG Specimen comments: SEPSIS WORKUP- XR CHEST 2 [id number] 16:55:00 FAX: Julia Sanz [phone] [place]: E St: PRE Patient Name: JAIDEN ALVARADO Unit No: [id number] EXAMS: CPT CODE: [id number] XR CHEST 2 V 35829 PA and lateral views of the chest [...] 02/17/2020 (1657) KILLIAN Crawford NAME: JAIDEN ALVARADO [address] [place] [address] PHYS: SHAYNA Julia [place], [place] [address] : 1980 AGE: 39 SEX: F LOC: [facility] PHONE #: [phone] EXAM DATE: 02/17/2020 STATUS: PRE ER FAX #: [phone] RAD NO: DC Dt: PAGE 1 Signed ReportUA RFLX MICR CULT IF [id number] 16:51:00 Test Item Value Reference Range Interpretation [...] Sepsis-no other srcUA RFLX MICR CULT IF [id number] 16:47:00 Test Item Value Reference Range Interpretation [...] for culture: Sev. Sepsis-no other srcCBC W/AUTO [id number] 16:45:00 Test Item Value Reference Range Interpretation [...] 0.00 K/mm3 0.0-0.05 N NRBC#) Specimen comments: cc"
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
[2021-10-21] MEDS ORDERED: PROMETHAZINE 25 MG TABLET ONE (13:40)
[2021-10-21 13:54] VITALS: TEMP 98.3
[2021-10-21 13:56] VITALS: BP 128/90; O2SAT 99
== END 2021-10-21 13:47 | disposition home or self-care (01) ==
LOC: ER 12:17
DX: S06.0X9A Concussion with loss of consciousness of unspecified duration, initial encounter (principal); W22.8XXA Striking against or struck by other objects, initial encounter; Z72.0 Tobacco use; Z88.2 Allergy status to sulfonamides; Z88.5 Allergy status to narcotic agent; Z88.8 Allergy status to other drugs, medicaments and biological substances
CPT/HCPCS: 70450; 72125; 99284; Q0169

== ENCOUNTER 2021-11-15 19:04 | Emergency (ER) | payer SELFPAY ==
--- OUTSIDE RECORDS SUMMARY | 2021-11-15 19:09 | XMS REPORT | Continuity of Care Document ---
:1980 Author Organization [facility] t Address [address] [place] [address] Care Team Providers Name Role Phone PCP, DOES NOT HAVE A Primary Care Physician Unavailable Abdias Perea MD Attending Clinician Telma BEASLEY, Anish Attending Clinician Pam LEZAMA, R Attending Clinician Itzel OROZCO Attending Clinician Unavailable Doctor Unassigned, Name Attending Clinician Unavailable Singer TORREZ Attending Clinician Jose Guadalupe BUCKNER, H Attending Clinician Unavailable Ashly LEZAMA Attending Clinician Anish RIVERA Attending Clinician Unavailable Nicole BEASLEY, Anish Attending Clinician DICK CAMILO Attending Clinician Unavailable AL Attending Clinician Unavailable Al BEASLEY Attending Clinician Jak BEASLEY, S Attending Clinician Diogo BEASLEY Attending Clinician DIOGO Attending Clinician Unavailable Physician, Primary or Family Admitting Clinician Unavailshanell e Diogo BEASLEY Admitting Clinician DIOGO Admitting Clinician Unavailable Payers Payer Name Policy Type Policy Number Effective Date Expiration Date Claire chaudhary [employer] [place] [id number] 2020 00:00:00 WOMEN Problems Condition Condition Condition Status Onset Resolution Last Treating Co mments Source Name Details Category Date Date Treatment Clinician Date 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) 00:00: 2019 pap [place] infection infection 00 smear, [facility] patient Branch needs repeat pap smear [...] bilateral 8-25 ity of tubal tubal 00:00: [place] ligation ligation 00 Medica l Branch Elevated Elevated Disease Active Unive rs blood blood 8-25 ity of pressure pressure 00:00: [place] reading reading 00 Medical without without Branch diagnosis diagnosis of of hypertensi hypertensi on on Anxiety Anxiety Disease Active Univers 5-07 ity of 00:00: [place] 00 [facility] Branch Chest pain Chest pain Disease Active U nivers 4-21 ity of 00:00: [address] Screening Screening Disease Active Uni vers examinatio examinatio 2-05 it y of n for STD n for STD 00:00: Syl[place] s (sexually (sexually [facility] transmitte transmitte Br anch d disease) d disease) Premature Premature Disease Active 2016-12 Uni vers labor labor 0-24 ity of 00:00: [address] 34 weeks 34 weeks Disease Active 2016-12 Unive rs gestation gestation 0-14 ity of of of 00:00: [place] 00 Medi dorothy Branch Disease Active 2016-12 Univers labor labor 0-14 ity of 00:00: [place] 00 Medical Branch Crohn Crohn Disease Active Overview: Univer s disease disease - involving ity o f 00:00: small and [place] 00 large Medical intesting Branch , biopsy confirmed . Gets colonosco py Q 6-12 months. 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 [place] es es Medical abortions Branch prior to 10 weeks, D&C in 2005 Allergies, Adverse Reactions, Alerts Allergy Allergy Status Severity Reaction(s) Onset Inactive Treating Comm ents Source Name Type Date Date Clinician meperidi DA Active MO 2020-0 [facility] ne HCl 3-18 [place] 00:00: [facility] 00 [facility] Sulfa DA Active MO 2020-0 [facility] (Sulfona 3-18 [place] mide 00:00: [facility] Antibiot 00 l ics) Medical Hines codeine DA Active MO 2020-0 [facility] 3-18 [place] 00:00: [address] meperidi DA Active MO vomiting 2020-0 [facility] ne HCl chest 3-18 [place] tightness 00:00: [address] Sulfa DA Active MO rash chest 2020-0 [facility] (Sulfona tightness 3-18 [place] mide 00:00: Region Antibiot 00 l ics) Medical Hines codeine DA Active MO rash chest 2020-0 [facility] tightness 3-18 [place] 00:00: [address] Marijuan Propensi Active Anaphylaxis 2018- U nivers a/Cannab ty to 2-05 ity of inoid adverse 00:00: [place] reaction 00 Medical s Branch MARIJUAN Drug Active High Anaphylaxis 2018- Uni vers A/CANNAB Class 2-05 ity of INOID 00:00: [place] 00 Medical Branch Sulfa Propensi Active Rash 2016- Univers (Sulfona ty to 8-30 ity of mide adverse 00:00: [place] Antibiot reaction 00 Medica l ics) s Branch SULFA Drug Active High Rash 2017- Univers (SULFONA Class 8-30 ity of MIDE 00:00: [place] ANTIBIOT 00 Medical ICS) Branch Codeine Propensi Active Shortness of 2016-1 U nivers ty to Breath 0-25 ity of adverse 00:00: [place] reaction 00 Medical s Branch Meperidi Propensi Active Rash 2015- Univer s ne Hcl ty to 0-25 ity of adverse 00:00: [place] reaction 00 Medical s Branch Tramadol Propensi Active Nausea 2015- Univer s ty to and/or 0-25 ity of adverse Vomiting 00:00: [place] reaction 00 Medical s Branch CODEINE DRUG Active SOB 2015-12 Univers INGREDI 0-25 ity of 00:00: [place] 00 Medical Branch MEPERIDI DRUG Active Rash 2015-12 Univers NE HCL INGREDI 0-25 ity of 00:00: [place] 00 Medical Branch TRAMADOL DRUG Active N/V 2015-12 Univers INGREDI 0-25 ity of 00:00: [place] 00 Medical Branch meperidi DA Active MO 2010- [facility] ne HCl 8-26 [place] 00:00: Region 00 [facility] Sulfa DA Active MO [facility] (Sulfona 8-26 [place] mide 00:00: Regiona Antibiot 00 l ics) Medical Hines codeine DA Active MO 2010- [facility] 8-26 [place] 00:00: [facility] 00 [facility] meperidi DA Active MO vomiting [facility] ne HCl chest 8-26 [place] tightness 00:00: [facility] 00 [facility] Sulfa DA Active MO rash chest [facility] (Sulfona tightness 8-26 Con[place] mide 00:00: Regiona Antibiot 00 l ics) [facility] codeine DA Active MO rash chest [facility] tightness 8-26 [place] 00:00: [address] Social History Social Habit Start Date Stop Date Quantity Comments Source History of tobacco Cigarette Smoker University of use [facility] Sex Assigned At Universit y of [facility] Exposure to Not sure [place] of SARS-CoV-2 (event) [facility] Tobacco use and 2020-07-26 2020-07-26 Never used Universit y of exposure 00:00:00 00:00:00 [facility] Cigarettes smoked 2020-07-26 2020-07-26 Univers ity of current (pack per 00:00:00 00:00:00 ) - Reported Branch History SDOH 2020-07-26 2020-07-26 2 University o f Alcohol Frequency 00:00:00 00:00:00 [place] M edical Branch History SDOH 2020-07-26 2020-07-26 2 [place] o f Alcohol Std Drinks 00:00:00 00:00:00 [place] Medical [facility] History SDOH 2020-07-26 2020-07-26 99 [place] o f Alcohol Binge 00:00:00 00:00:00 [place] Medic al Branch Alcohol intake 2020-07-26 2020-07-26 Current drinker Unive rsity of 00:00:00 00:00:00 of alcohol [facility] (finding) Ray Tobacco Comment 2018-01-03 2018-01-03 Occasional Smoker Un iversity of 00:00:00 00:00:00 [facility] Alcohol Comment 2018-01-03 2018-01-03 Social Drinker Unive rsity of 00:00:00 00:00:00 [facility] Smoking Status Start Date Stop Date Source Current every day smoker 2020-07-26 00:00:00 [facility] Current some day smoker 2020-06-12 00:00:00 [facility] [place] Medications Ordered Filled Start Stop Current Ordering Indication Dosage Frequency Signature Comments Components Source Medication Medication Date Date Medication? Clinician (SIG) Name Name ibuprofen No 600mg 600 mg, Uni vers (IBU) 12-26 Oral, ity of tablet 600 04:45: 03:53 ONCE, 1 [place] as mg 00 :00 dose, Count Includes [facility] 12/25/20 at Branch 2245, MATTHEW ibuprofen No 600mg 600 mg, Uni vers (IBU) 12-26 Oral, ity of tablet 600 00:30: 12:29 ONCE, 1 Jose as mg 00 :00 dose, Count Includes [facility] 12/25/20 at Branch 1830, MATTHEW metroNIDAZO 2020- No [id number] 2000mg Take 4 Univers LE 500 mg 12-26 tablets by ity of tablet 00:00: 05:59 mouth 2 [place] 00 :00 (two) Medical times Ray daily for 1 dose. NaCl 0.9% 2020- No 1000mL at 999 Uni vers (NS) bolus 12-25 mL/hr, ity of infusion 17:30: 18:07 1,000 mL, Jose as 1,000 mL 00 :00 IV Medical Infusion, Branch ONCE, 1 dose, [place] 12/25/20 at 1130, STAT proMETHazin 2020- No 12.5mg 12.5 mg, Univers e 12-25 IV ity of (PHENERGAN) 17:30: 16:45 Piggyback, [place] 12.5 mg in 00 :00 ONCE, 1 Medica l NaCl 0.9% dose, [facility] (NS) 50 mL 12/25/20 at piggyback 1130, 50 mL cefTRIAXone 2020- No 250mg 250 mg, U nivers (ROCEPHIN) 12-25 Intramuscu it y of injection 16:30: 16:45 [place], [place]CE [place] 250 mg 00 :00 NOW, 1 Medical dose, [facility] 12/25/20 at 1030, MATTHEW
Fa culty member approving Restricted medication : MYNOR HOLLIS
Reaso n for Anti-Infec tive: Documented Infection< br>Docu mented Infection Site: Abdominal< br>Duratio n of Therapy: 7 days azithromyci 2020- No 1000mg 1,000 mg, Univers n 12-25 Oral, ONCE ity of (ZITHROMAX) 16:30: 16:44 NOW, 1 Jose as tablet 00 :00 dose, [place] Medical 1,000 mg 12/25/20 at [facility] h 1030, MATTHEW
Re ason for Anti-Infec tive: Documented Infection< br>Documen fatemeh Infection Site: COVID
D uration of Therapy: 7 days FENTanyl PF Yes 50ug 50 mcg, Uni vers (SUBLIMAZE 12-25 Slow IV ity of (PF)) 16:14: Push, [place] injection 05 Q30MIN Medical 50 mcg PRN, 3 Branch doses, Starting [place] 12/25/20 at 1014, Until Discontinu ed, MATTHEW, Pain (scale 7-10) iohexol 0 2020- No 120mL 120 mL, Unive rs (OMNIPAQUE 814 08-14 Intravenou it y of 350 22:15: 22:15 s, ONCE, 1 [place] BULK-150 00 :00 dose, Fri Medica l mL) 07/15/20 at Ray injection 1715, 120 mL Routine dicyclomine 2020-0 Yes 10mg 10 mg, Univ ers (BENTYL) 8-14 Oral, QID, ity o f capsule 10 21:00: First dose [place] mg 00 on Fri Medical 07/15/20 at Branch 1600, Until Discontinu ed, Routine pantoprazol 2020-0 2020- No 80mg 80 mg, IV Univers e 07-1514 Piggyback, ity of (PROTONIX) 19:45: 20:00 ONCE, 1 [place] as 80 mg in 00 :00 dose, Fri Medica l NaCl 0.9% 07/15/20 at [facility] (NS) 100 mL 1445, 100 IV mL Piggyback sucralfate 2020-0 Yes [id number] 1g Take 1 Un gracy 1 gram 8-14 tablet by ity of tablet 00:00: mouth [place] 00 before Medical meals and Branch at bedtime. dicyclomine 2020-0 Yes [id number] 10mg Take 1 U nivers (BENTYL) 10 8-14 capsule by it y of mg capsule 00:00: mouth [place] 00 every 8 Medical (eight) Branch hours as needed for Abdominal pain. ondansetron 2020-0 Yes [id number] 4mg Take 1 U nivers 4 mg 8-14 tablet by ity of disintegrat 00:00: mouth [place] ing tablet 00 every 8 Medica l (eight) Branch hours as needed for Nausea and Vomiting (N/V). sucralfate 2020-0 Yes [id number] 1g Take 1 Un gracy 1 gram 8-14 tablet by ity of tablet 00:00: mouth [place] 00 before Medical meals and Branch at bedtime. dicyclomine 2020-0 Yes [id number] 10mg Take 1 U nivers (BENTYL) 10 8-14 capsule by it y of mg capsule 00:00: mouth [place] 00 every 8 Medical (eight) Branch hours as needed for Abdominal pain. ondansetron 2020-0 Yes [id number] 4mg Take 1 U nivers 4 mg 8-14 tablet by ity of disintegrat 00:00: mouth [place] ing tablet 00 every 8 Medica l (eight) Branch hours as needed for Nausea and Vomiting (N/V). sucralfate 2020-0 Yes [id number] 1g Take 1 Un gracy 1 gram 8-14 tablet by ity of tablet 00:00: mouth [place] 00 before Medical meals and Branch at bedtime. dicyclomine 2020-0 Yes [id number] 10mg Take 1 U nivers (BENTYL) 10 8-14 capsule by it y of mg capsule 00:00: mouth [place] 00 every 8 Medical (eight) Branch hours as needed for Abdominal pain. ondansetron 2020-0 Yes [id number] 4mg Take 1 U nivers 4 mg 8-14 tablet by ity of disintegrat 00:00: mouth [place] ing tablet 00 every 8 Medica l (eight) Branch hours as needed for Nausea and Vomiting (N/V). sucralfate 2020-0 Yes [id number] 1g Take 1 Un gracy 1 gram 8-14 tablet by ity of tablet 00:00: mouth [place] 00 before Medical meals and Branch at bedtime. dicyclomine 2020-0 Yes [id number] 10mg Take 1 U nivers (BENTYL) 10 8-14 capsule by it y of mg capsule 00:00: mouth [place] 00 every 8 Medical (eight) Branch hours as needed for Abdominal pain. ondansetron 2020-0 Yes [id number] 4mg Take 1 U nivers 4 mg 8-14 tablet by ity of disintegrat 00:00: mouth [place] ing tablet 00 every 8 Medica l (eight) Branch hours as needed for Nausea and Vomiting (N/V). sucralfate 2020-0 Yes [id number] 1g Take 1 Un gracy 1 gram 8-14 tablet by ity of tablet 00:00: mouth [place] 00 before Medical meals and Branch at bedtime. dicyclomine 2020-0 Yes [id number] 10mg Take 1 U nivers (BENTYL) 10 8-14 capsule by it y of mg capsule 00:00: mouth [place] 00 every 8 Medical (eight) Branch hours as needed for Abdominal pain. ondansetron 2020-0 Yes [id number] 4mg Take 1 U nivers 4 mg 8-14 tablet by ity of disintegrat 00:00: mouth [place] ing tablet 00 every 8 Medica l (eight) Branch hours as needed for Nausea and Vomiting (N/V). sucralfate 2020-0 Yes [id number] 1g Take 1 Un gracy 1 gram 8-14 tablet by ity of tablet 00:00: mouth [place] 00 before Medical meals and Branch at bedtime. dicyclomine 2020-0 Yes [id number] 10mg Take 1 U nivers (BENTYL) 10 8-14 capsule by it y of mg capsule 00:00: mouth [place] 00 every 8 Medical (eight) Branch hours as needed for Abdominal pain. ondansetron 2020-0 Yes [id number] 4mg Take 1 U nivers 4 mg 8-14 tablet by ity of disintegrat 00:00: mouth [place] ing tablet 00 every 8 Medica l (eight) Branch hours as needed for Nausea and Vomiting (N/V). sucralfate 2020-0 Yes [id number] 1g Take 1 Un gracy 1 gram 8-14 tablet by ity of tablet 00:00: mouth [place] 00 before Medical meals and Branch at bedtime. dicyclomine 2020-0 Yes [id number] 10mg Take 1 U nivers (BENTYL) 10 8-14 capsule by it y of mg capsule 00:00: mouth [place] 00 every 8 Medical (eight) Branch hours as needed for Abdominal pain. ondansetron 2020-0 Yes [id number] 4mg Take 1 U nivers 4 mg 8-14 tablet by ity of disintegrat 00:00: mouth [place] ing tablet 00 every 8 Medica l (eight) Branch hours as needed for Nausea and Vomiting (N/V). sucralfate 2020-0 Yes [id number] 1g Take 1 Un gracy 1 gram 8-14 tablet by ity of tablet 00:00: mouth [place] 00 before Medical meals and Branch at bedtime. dicyclomine 2020-0 Yes [id number] 10mg Take 1 U nivers (BENTYL) 10 8-14 capsule by it y of mg capsule 00:00: mouth [place] 00 every 8 Medical (eight) Branch hours as needed for Abdominal pain. ondansetron 2020-0 Yes [id number] 4mg Take 1 U nivers 4 mg 8-14 tablet by ity of disintegrat 00:00: mouth [place] ing tablet 00 every 8 Medica l (eight) Branch hours as needed for Nausea and Vomiting (N/V). sucralfate 2020-0 Yes [id number] 1g Take 1 Un gracy 1 gram 8-14 tablet by ity of tablet 00:00: mouth [place] 00 before Medical meals and Branch at bedtime. dicyclomine 2020-0 Yes [id number] 10mg Take 1 U nivers (BENTYL) 10 8-14 capsule by it y of mg capsule 00:00: mouth [place] 00 every 8 Medical (eight) Branch hours as needed for Abdominal pain. ondansetron 2020-0 Yes [id number] 4mg Take 1 U nivers 4 mg 8-14 tablet by ity of disintegrat 00:00: mouth [place] ing tablet 00 every 8 Medica l (eight) Branch hours as needed for Nausea and Vomiting (N/V). sucralfate 2020-0 Yes [id number] 1g Take 1 Un gracy 1 gram 8-14 tablet by ity of tablet 00:00: mouth [place] 00 before Medical meals and Branch at bedtime. dicyclomine 2020-0 Yes [id number] 10mg Take 1 U nivers (BENTYL) 10 8-14 capsule by it y of mg capsule 00:00: mouth [place] 00 every 8 Medical (eight) Branch hours as needed for Abdominal pain. ondansetron 2020-0 Yes [id number] 4mg Take 1 U nivers 4 mg 8-14 tablet by ity of disintegrat 00:00: mouth [place] ing tablet 00 every 8 Medica l (eight) Branch hours as needed for Nausea and Vomiting (N/V). sucralfate 2020-0 Yes [id number] 1g Take 1 Un gracy 1 gram 8-14 tablet by ity of tablet 00:00: mouth [place] 00 before Medical meals and Branch at bedtime. dicyclomine 2020-0 Yes [id number] 10mg Take 1 U nivers (BENTYL) 10 8-14 capsule by it y of mg capsule 00:00: mouth [place] 00 every 8 Medical (eight) Branch hours as needed for Abdominal pain. ondansetron 2020-0 Yes [id number] 4mg Take 1 U nivers 4 mg 8-14 tablet by ity of disintegrat 00:00: mouth [place] ing tablet 00 every 8 Medica l (eight) Branch hours as needed for Nausea and Vomiting (N/V). omeprazole 2020-0 2020- No [id number] 20mg Take 1 U nivers 20 mg 8-14 09-14 capsule by ity of capsule 00:00: 04:59 mouth [place] 00 :00 daily for Medical 30 days. Branch omeprazole 2020-0 2020- No [id number] 20mg Take 1 U nivers 20 mg 8-14 09-14 capsule by ity of capsule 00:00: 04:59 mouth [place] 00 :00 daily for Medical 30 days. Ray omeprazole 2020-0 2020- No [id number] 20mg Take 1 U nivers 20 mg 8-15 08- capsule by ity of capsule 00:00: 04:59 mouth [place] 00 :00 daily for Medical 30 days. Branch omeprazole 2020-0 2020- No [id number] 20mg Take 1 U nivers 20 mg 8-14 - capsule by ity of capsule 00:00: 04:59 mouth [place] 00 :00 daily for Medical 30 days. Branch omeprazole 2020-0 2020- No [id number] 20mg Take 1 U nivers 20 mg 8-15 08- capsule by ity of capsule 00:00: 04:59 mouth [place] 00 :00 daily for Medical 30 days. Branch omeprazole 2020-0 2020- No [id number] 20mg Take 1 U nivers 20 mg 8-08-15 capsule by ity of capsule 00:00: 04:59 mouth [place] 00 :00 daily for Medical 30 days. Ray omeprazole 2020-0 2020- No [id number] 20mg Take 1 U nivers 20 mg 07-15 capsule by ity of capsule 00:00: 04:59 mouth [place] 00 :00 daily for Medical 30 days. Ray omeprazole 2020-0 2020- No [id number] 20mg Take 1 U nivers 20 mg 07-15 capsule by ity of capsule 00:00: 04:59 mouth [place] 00 :00 daily for Medical 30 days. Ray enoxaparin 2019-0 Yes 40mg 40 mg, Unive rs (LOVENOX) 4-21 Subcutaneo ity of injection 14:00: [place], DAILY, [place] 40 mg 00 First dose Medical on [facility] 03/22/20 at 0900, Until Discontinu ed, Routine ondansetron 2019-0 Yes 4mg 4 mg, Slow Univers (ZOFRAN 4-21 IV Push, ity of (PF)) 09:23: Q6HPRN, [place] injection 4 44 Starting Medi dorothy mg [facility] 03/22/20 at 0423, Until Discontinu ed, Routine, Nausea and Vomiting (N/V) ketorolac 2020-0 Yes 15mg 15 mg, Univer s (TORADOL) 4-21 Slow IV ity of injection 09:23: Push, [place] 15 mg 14 Q6HPRN, 4 Medical doses, Branch Starting 03/22/20 at 0423, Until Discontinu ed, Routine, chest pain
Fa culty member approving Restricted medication : SANJAY LIND acetaminoph 2019- Yes 650mg 650 mg, Un gracy en 03-22 Oral, ity of (TYLENOL) 09:22: Q6HPRN, [place] tablet 650 49 Starting Medic al mg Tue Branch 03/22/20 at 0422, Until Discontinu ed, Routine, Pain (scale 1-3) ondansetron 2020- No 4mg 4 mg, Slow Univers (ZOFRAN -22 03- IV Push, ity of (PF)) 07:15: 07:14 ONCE, 1 [place] injection 4 00 :00 dose, Tue Med ical mg 03/22/20 at Branch 0215, MATTHEW ondansetron 2018-12 2020- No [id number] 4mg Take 1 Univers (ZOFRAN -25 - tablet by ity of ODT) 4 mg 00:00: 00:00 mouth [place] disintegrat 00 :00 every 8 Medic al ing tablet (eight) Branch hours as needed for Nausea and Vomiting (N/V). ketorolac 2018-12 2020- No [id number] 10mg Take 1 Univers 10 mg 2-25 -21 tablet by ity of tablet 00:00: 00:00 mouth [place] 00 :00 every 6 Medical (six) Branch hours as needed for Pain (scale 1-3). No known No [facility] No [facility] No known No [facility] No known No Univers medications [facility] [place] No known No Univers medications [facility] [place] Immunizations Ordered Filled Immunization Date Status Comments [facility] e Immunization Name Name Influenza Virus 2017-09-26 Completed Universit y of Vaccine Quad IM 3+ 00:00:00 [facility] Influenza Virus 2017-09-26 Completed Universit y of Vaccine Quad IM 3+ 00:00:00 [facility] Influenza Virus 2017-09-26 Completed Universit y of Vaccine Quad IM 3+ 00:00:00 [facility] Influenza Virus 2017-09-26 Completed Universit y of Vaccine Quad IM 3+ 00:00:00 [facility] Influenza Virus 2017-09-26 Completed Universit y of Vaccine Quad IM 3+ 00:00:00 [facility] Influenza Virus 2017-09-26 Completed Universit y of Vaccine Quad IM 3+ 00:00:00 [facility] Influenza Virus 2017-09-26 Completed Universit y of Vaccine Quad IM 3+ 00:00:00 [facility] Influenza Virus 2017-09-26 Completed Universit y of Vaccine Quad IM 3+ 00:00:00 [facility] Influenza Virus 2017-09-26 Completed Universit y of Vaccine Quad IM 3+ 00:00:00 [facility] Influenza Virus 2017-09-26 Completed Universit y of Vaccine Quad IM 3+ 00:00:00 [facility] Influenza Virus 2017-09-26 Completed Universit y of Vaccine Quad IM 3+ 00:00:00 [facility] Influenza Virus 2017-09-26 Completed Universit y of Vaccine Quad IM 3+ 00:00:00 [facility] Influenza Virus 2017-09-26 Completed Universit y of Vaccine Quad IM 3+ 00:00:00 [facility] Influenza Virus 2017-09-26 Completed Universit y of Vaccine Quad IM 3+ 00:00:00 [facility] Influenza Virus 2017-09-26 Completed Universit y of Vaccine Quad IM 3+ 00:00:00 [facility] Influenza Virus 2017-09-26 Completed Universit y of Vaccine Quad IM 3+ 00:00:00 [facility] Influenza Virus 2017-09-26 Completed Universit y of Vaccine Quad IM 3+ 00:00:00 [facility] Vital Signs Vital Name Observation Time Observation Value Comments Source Systolic blood 2020-12-26 115 mm[Hg] University of pressure 09:00:00 [facility] Diastolic blood 2020-12-26 76 mm[Hg] [place] o f pressure 09:00:00 [facility] Heart rate 2020-12-26 78 /min [facility] 09:00:00 [facility] Body temperature 2020-12-26 36.22 Yarelis [facility] 09:00:00 [facility] Respiratory rate 2020-12-26 16 /min [facility] 09:00:00 [facility] Oxygen saturation 2020-12-26 100 /min [facility] in Arterial blood 09:00:[address] [facility] by Pulse oximetry Ray Body weight 2020-12-26 53.978 kg University of 00:27:00 [facility] BMI 2020-12-26 24.04 kg/m2 University of 00:27:00 [facility] Systolic blood 2020-12-26 115 mm[Hg] University of pressure 09:00:00 [facility] Diastolic blood 2020-12-26 76 mm[Hg] University o f pressure 09:00:00 [facility] Heart rate 2020-12-26 78 /min University of 09:00:00 [facility] Body temperature 2020-12-26 36.22 Yarelis University of 09:00:00 [facility] Respiratory rate 2020-12-26 16 /min University of 09:00:00 [facility] Oxygen saturation 2020-12-26 100 /min [place] of in Arterial blood 09:00:[address] [facility] by Pulse oximetry Ray Body weight 2020-12-26 53.978 kg University of :27:00 [facility] BMI 2020-12-26 24.04 kg/m2 University of 00:27:00 [facility] Systolic blood 2020-12-25 92 mm[Hg] University of pressure 22:30:00 [facility] Diastolic blood 2020-12-25 59 mm[Hg] University o f pressure 22:30:00 [facility] Heart rate 2020-12-25 91 /min University of 22:30:00 [facility] Respiratory rate 2020-12-25 14 /min University of 22:30:00 [facility] Oxygen saturation 2020-12-25 100 /min University of in Arterial blood 22:30:[address] [facility] by Pulse oximetry Ray Body temperature 2020-12-25 36.89 Yarelis University of 16:07:00 [facility] Body height 2020-12-25 149.9 cm University of 16:07:00 [facility] Body weight 2020-12-25 53.978 kg University of 16:07:00 [facility] BMI 2020-12-25 24.04 kg/m2 University of 16:07:00 [facility] Systolic blood 2020-12-25 92 mm[Hg] University of pressure 22:30:00 [facility] Diastolic blood 2020-12-25 59 mm[Hg] University o f pressure 22:30:00 [facility] Heart rate 2020-12-25 91 /min University of 22:30:00 [facility] Branch Respiratory rate 2020-12-25 14 /min University of 22:30:00 [facility] Branch Oxygen saturation 2020-12-25 100 /min [place] of in Arterial blood 22:30:[address] [facility] by Pulse oximetry Branch Body temperature 2020-12-25 36.89 Yarelis University of 16:07:00 [facility] Body height 2020-12-25 149.9 cm University of 16:07:00 [facility] Body weight 2020-12-25 53.978 kg University of 16:07:00 [facility] BMI 2020-12-25 24.04 kg/m2 University of 16:07:00 [facility] Systolic blood 2020-07-26 146 mm[Hg] University of pressure 20:54:00 [facility] Diastolic blood 2020-07-26 96 mm[Hg] University o f pressure 20:54:00 [facility] Heart rate 2020-07-26 91 /min University of 19:55:00 [facility] Body temperature 2020-07-26 36.78 Yarelis University of 19:55:00 [facility] Respiratory rate 2020-07-26 16 /min University of 19:55:00 [facility] Body height 2020-07-26 172.7 cm University of 19:55:00 [facility] Body weight 2020-07-26 54.148 kg University of 19:55:00 [facility] BMI 2020-07-26 18.15 kg/m2 University of 19:55:00 [facility] Systolic blood 2020-07-15 119 mm[Hg] University of pressure 23:00:00 [facility] Diastolic blood 2020-07-15 80 mm[Hg] University o f pressure 23:00:00 [facility] Heart rate 2020-07-15 79 /min University of 23:00:00 [facility] Respiratory rate 2020-07-15 20 /min University of 23:00:00 [facility] Oxygen saturation 2020-07-15 96 /min [facility] in Arterial blood 23:00:[address] [facility] by Pulse oximetry Branch Body temperature 2020-07-15 37.11 Yarelis University of 18:21:00 [facility] Body weight 2020-07-15 52.164 kg University of 18:21:00 [facility] BMI 2020-07-15 17.49 kg/m2 University of 18:21:00 [facility] Body temperature 2020-06-12 36.89 Yarelis University of 02:50:00 [facility] Respiratory rate 2020-06-12 24 /min University of 02:50:00 [facility] Body weight 2020-06-12 50.803 kg University of 02:50:00 [facility] BMI 2020-06-12 17.03 kg/m2 University 02:50:00 [facility] Oxygen saturation 2020-06-12 98 /min University of in Arterial blood 02:50:[address] [facility] by Pulse oximetry Ray Systolic blood 2020-06-12 141 mm[Hg] University of pressure 02:50:00 [facility] Diastolic blood 2020-06-12 105 mm[Hg] University o f pressure 02:50:00 [facility] Heart rate 2020-06-12 108 /min [facility] 02:50:00 [facility] Systolic blood 2020-03-22 131 mm[Hg] University of pressure 16:32:00 [facility] Diastolic blood 2020-03-22 81 mm[Hg] University o f pressure 16:32:00 [facility] Heart rate 2020-03-22 70 /min [facility] 16:32:00 [facility] Body temperature 2020-03-22 37.06 Yarelis University 16:32:00 [facility] Respiratory rate 2020-03-22 18 /min University 16:32:00 [facility] Oxygen saturation 2020-03-22 97 /min [facility] in Arterial blood 16:32:[address] [facility] by Pulse oximetry Ray Body height 2020-03-22 172.7 cm patient stated University 09:15:00 height on [facility] admission. Ray Body weight 2020-03-22 54.942 kg bedscale upon University 09:15:00 admission to [facility] BMI 2020-03-22 18.42 kg/m2 University 09:15:00 [facility] Procedures Procedure Date / Time Performing Clinician Source Performed XR HAND 3+ VW LEFT 2020-12-26 09:21:04 Yonas Perea [facility] CT HEAD WO CONTRAST 2020-12-26 05:48:00 Yonas Perea [facility] ETHANOL 2020-12-25 21:54:00 Mynor Hollis Esbon o f [facility] ETHANOL 2020-12-25 20:21:00 Mynor Hollis [facility] POCT TEST 2020-12-25 18:07:00 Mynor Hollis [facility] ADC / LCC - DRUG SCREEN 2020-12-25 18:05:00 Mynor Hollis [facility] TRIAGE Medical Branch XR KUB 2020-12-25 17:06:45 Mynor Hollis [facility] COVID-19 (ID NOW RAPID 2020-12-25 16:55:00 Mynor Hollis [facility] TESTING) Medical Branch BASIC METABOLIC PANEL 2020-12-25 16:19:00 Mynor Hollis [facility] (NA, K, CL, CO2, Medical Branch GLUCOSE, BUN, CREATININE, CA) ETHANOL 2020-12-25 16:19:00 Mynor Hollis [facility] CBC WITH DIFF 2020-12-25 16:19:00 Mynor Hollis [facility] ASSIGNMENT OF BENEFITS 2020-07-26 19:40:02 Doctor Unassigned, No [facility] CT ABDOMEN PELVIS W 2020-07-15 22:13:14 Dhruv Briggs [facility] CONTRAST [facility] POCT TEST 2020-07-15 18:47:00 Dhruv Briggs [facility] COMP. METABOLIC PANEL 2020-07-15 18:45[id number] CBC WITH DIFF 2020-07-15 18:45:00 Singer [facility] URINALYSIS 2020-07-15 18:45:00 Singer [facility] COVID-19 (ID NOW RAPID 2020-07-15 18:45:00 Dhruv Briggs [facility] TESTING) Medical Branch CONSENT/REFUSAL FOR 2020-07-15 18:15:15 Doctor Unassigned, No [facility] DIAGNOSIS AND TREATMENT Name Medical Ray XR CHEST 1 VW 2020-06-12 21:33:46 Andrew Limon [facility] NOTICE OF PRIVACY 2020-06-12 20:57:27 Doctor Unassigned, No [facility] PRACTICES Name Medical Branch CONSENT/REFUSAL FOR 2020-06-12 20:53:21 Doctor Unassigned, No Un [facility] DIAGNOSIS AND TREATMENT Name Medical Branch ECHO ROUTINE W/DOPPLER 2020-03-22 14:40:35 Alex Thomas [facility] COLOR [facility] XR CHEST 1 VW COVID 2020-03-22 07:40:01 Shun Benedict [facility] CORONAVIRUS COVID-19 2020-03-22 07:16:00 [facility] LIPASE 2020-03-22 07:14:00 Shun Benedict [facility] TROPONIN I 2020-03-22 07:14:00 Shun Benedict [facility] COMP. METABOLIC PANEL 2020-03-22 07:14:00 [facility] ([id number]) [facility] CBC WITH DIFFERENTIAL 2020-03-22 07:14:00 Shun Benedict [facility] EKG-12 LEAD 2020-03-22 07:07:34 Shun Benedict [facility] EKG-12 LEAD 2020-03-22 07:01:19 Shun Benedict [facility] Encounters Start End Encounter Admission Attending Care Care Encounter Source Date/Time Date/Time Type Type Clinicians Facility Department ID 2021-09-30 Emergency [facility] [id number] Univers 19:11:11 ity [facility] 2021-09-30 Emergency [facility] [id number] Univers 19:08:09 ity of [facility] 2021-09-29 Emergency [facility] [id number] Univers [facility]:33[facility]-09-29 Emergency [facility] [id number] Univers 06:13:55 it of [facility] 2021-09-29 Emergency [facility] [id number] Univers [facility]:12[facility]-05-12 Inpatient [facility] [id number] [facility] 00:35:00 [id number] [facility] 2020-02-17 Inpatient [facility] PRETTY [id number] [facility] 15:56:00 [id number] [facility] 2020-12-25 2020-12-26 Emergency Brit, TRAUMA [id number] Univers 18:26:00 04:04:00 Yonas B CENTER [id number] ity of 4.2.7.2.686 [facility] [id number] [address] 2020-12-25 2020-12-26 Emergency Brit, TRAUMA [id number] 18:26:00 04:04:00 Yonas B [place] [id number] 4.2.7.2.686 [id number] 014 2020-12-25 2020-12-25 Emergency [facility], [facility] [id number] Univers 10:03:00 18:22:00 Mynor A Health [id number] it y of [place] 4.2.7.2.686 [facility] [id number] [address] ([facility]) 2020-12-25 2020-12-25 Emergency [facility], [facility] [id number] 10:03:00 18:22:00 Mynor A Health [id number] League 4.2.7.2.686 [facility] [id number] [address] ([facility]) 2020-08-17 2020-08-17 [facility] [id number] 06:29:56 23:59:00 Encounter Roshunda R SPECIALTY [id number] CARE 4.2.7.2.686 CENTER AT [id number] [address] 2020-08-17 2020-08-17 [facility] [id number] [facility] 06:29:56 23:59:00 Encounter Roshunda R SPECIALTY [id number] ity of CARE 4.2.7.2.686 [facility] CENTER AT [id number] Ar dical [address] 2020-08-17 2020-08-17 [id number] Univers 15:30:00 15:30:00 DKZAHRAAnish [id number] ity o f [facility] 2020-08-17 2020-08-17 Outpatient R PAM [facility] [id number] Univers 00:00:00 00:00:00 DEANA dariay o f [facility] 2020-08-17 2020-08-17 Outpatient R PAM [facility] [id number] Univers 00:00:00 00:00:00 DKNDA dariay o [place] [facility] 2020-08-10 2020-08-10 [facility]phone [facility] [id number] 00:00:00 00:00:00 Dknda R [employer] [id number] REGIONAL 4.2.7.2.686 MATERNAL [id number] & CHILD [address] [place] [address] 2020-08-10 2020-08-10 Telephone [facility] [id number] Univers 00:00:00 00:00:00 Deana R [employer] [id number] ity of [facility] 4.2.7.2.686 Jose as MATERNAL [id number] [facility] & CHILD [address] [place] [address] 2020-07-26 2020-07-26 Office Pam [facility] [id number] Univers 14:44:48 15:48:25 [facility] [employer] [id number] ity of [facility] 4.2.7.2.686 Jose as MATERNAL [id number] [facility] & CHILD [address] [place] [address] 2020-07-26 2020-07-26 [facility] [id number] Univers 14:00:00 14:00:00 MARLENWERNERDICK [id number] ity o [place] [facility] 2020-07-26 2020-07-26 Outpatient R PAM [facility] [id number] Univers 14:00:00 14:00:00 DKNDA dariay o [place] [facility] 2020-07-26 2020-07-26 Sharif WARD [id number] Univers 00:00:00 00:00:00 Only Unassigned, DERIAN [id number] ity of [facility] 4.2.7.2.686 Jose as [id number] [facility] 009 Ray 2020-07-15 2020-07-15 Emergency [facility] [id number] Univers 13:25:00 19:02:00 Dhruv Christian 350.1.13.10 i [place] of [place] [id number] [address] 2020-06-14 2020-06-14 Telephone SYLVIA Shi 1.2.840.114 [id number] Univers 00:00:00 00:00:00 Kaylah MENARD 350.1.13.10 i ty of [facility] 4.2.7.2.686 Jose as [id number] [facility] 019 Ray 2020-06-12 2020-06-12 Emergency [facility] [id number] [facility] 15:56:18 17:25:00 Andrew Gonzales 350.1.13.10 i [place] 4[place]2.7.2.[place] [id number] [address] 2020-06-11 2020-06-11 Emergency [facility] [id number] [id number] Univers 21:45:46 22:38:00 Dhruv Gonzales 350.1.13.10 i [place] of [place] 4[place]2.7.2.[place] [id number] [address] 2020-04-07 2020-04-07 Outpatient R NICOLE [facility] [id number] Univers 13:30:00 13:30:00 WONDIFUL garrett o f [facility] 2020-04-07 2020-04-07 Telemedici Nicole [facility] 1.2.840.114 [id number] Univers 07:52:01 08:22:01 ne Visit Cat [place] 350.1.13.10 [place]2.7.2.[place] [phone] Ar dical nal 044 [facility] 2020-04-04 2020-04-04 Emergency E TON MADAI [facility] [id number] [facility] 16:52:00 19:36:00 DAVID 2020-03-29 2020-03-29 Outpatient R AL [facility] [id number] Univers 09:40:00 09:40:00 CHRIS tucker o f [facility] 2020-03-29 2020-03-29 [facility]ici [facility] 1.2.840.114 [id number] Univers 07:59:20 08:14:20 ne Visit Chris [place] 350.1.13.10 it[place] of [place] 4.2.7.2.686 [facility] [id number] Ar dical nal 059 [facility] 2020-03-22 2020-03-22 Emergency Shun Benedict [facility] 1.2.840 .114 [id number] Univers 02:10:55 13:40:00 Sanjay Lind 350.1.13.10 ity of [place] 4.2.7.2.686 [facility] [place] [id number] [facility] 081 Ray 2020-03-22 2020-03-22 Outpatient X [facility] [id number] Univers 02:10:55 13:40:[address] [facility] 2019-08-07 2019-08-07 Emergency E MHCY [facility] 7503 [facility] 13:27:00 13:27:00 2019-04-08 2019-04-08 Emergency E MHCY [facility] 7502 [facility] 14:22:00 14:22:00 2019-03-31 2019-03-31 Emergency E MHCY [facility]Y 7501 [facility] 14:37:00 14:37:00 Results Test Description Test Time Test Comments Results Result Comments Source ETHANOL 2020-12-25 22:12:00 Test Item Value Reference Range Interpretation Comme nts ALCOHOL (test code = 5235713149) 80 mg/dL CINDI (test code = CINDI) Toxic Greater than or equal to 80 mg/dL. NOTE : Whole blood values are approximately 10% to 15% lower than serum and plasma. [facility]2021-[facility]-24 20:38:00 Test Item Value Reference Range Interpretation Comments ALCOHOL (test code = 108 mg/dL 3427165128) CINDI (test code = Toxic Greater than or CINDI) equal to 80 mg/dL. NOTE: Whole blood values are approximately 10% to 15% lower than serum and plasma. [facility] - DRUG SCREEN [id number] 18:24:00 Test Item Value Reference Range Interpretation Comments BENZO U (test code = Negative Negative 1984374834) SANDRA U (test code = Negative Negative 9738346627) AMPHET (test code = Negative Negative 0861575595) THC (test code = Negative Negative 5501071194) METHADONE (test code = Negative Negative 3035066361) Meth U (test code = Negative Negative 1973290809) OPIATES (test code = Negative Negative 0551265008) Cocaine Metabolite (test Presumptive Positive Negative A code = 9670538152) PROPOXY (test code = Negative Negative 3507604724) Tric U (test code = Negative Negative 3679774040) PCP (test code = Negative Negative 8723058037) OXYCOD (test code = Negative Negative 3311353851) CINDI (test code = CINDI) Urine Drug [...] testing). Lab Interpretation (test Abnormal code = 37923-4) [facility]PO[facility] [id number] 18:07:00 Test Item Value Reference Range Interpretation Comments POCT PREG (test code = 1605) Negative On board controls acceptable with C Present Line (test code = 3574) Lab Interpretation (test code = Normal 27454-5) [facility] CampusXR [id number] 17:36:18 Nonobstructive bowel gas pattern. Preliminary Report [...] Cholecystectomy clips are noted. Theurinary bladder isprominent. [facility], Radiant Results Inft User - 12/25/2020 11:37 [...] reviewed this study and agree with the abovereport.[facility]COVID-[facility] (ID NOW RAPID TESTING)2020-12-25 17:13:00 Test Item Value Reference Range Interpretation Comments SARS-CoV-2 Rapid ID NOW Not Detected Not Detected (test code = 68745-8) CINDI (test code = CINDI) ID NOW COVID-19 Assay is an isothermal nucleic acid amplification test intended for the qualitative detection of nucleic acid from SARS-CoV-2 viral RNA in nasopharyngeal ([employer] OPERATOR) specimens. It is used under Emergency [...] indicated. Lab Interpretation Normal (test code = 60408-1) [facility]ETHANOL2021-01-24 16:37:00 Test Item Value Reference Range Interpretation Comments ALCOHOL (test code = 196 mg/dL 9165551095) CINDI (test code = Toxic Greater than or CINDI) equal to 80 mg/dL. NOTE: Whole blood values are approximately 10% to 15% lower than serum and plasma. [facility] CampusBASI METABOLIC PANEL (NA, K, CL, CO2, GLUCOSE, BUN, CREATININE, CA)2020-12-25 16:37:00 Test Item Value Reference Range Interpretation Comments NA (test code = 144 mmol/L 135-145 5017143809) K (test code = 4.4 mmol/L 3.5-5 4350937350) CL (test code = 109 mmol/L 98-108 H 9168998058) CO2 TOTAL (test code = 22 mmol/L 23-31 L 1762532702) AGAP (test code = 2-16 2596967432) BUN (test code = 9 mg/dL 7-23 9956476697) GLUCOSE (test code = 103 mg/dL 70-110 0774274218) CREATININE (test code = 0.66 mg/dL 0.5-1.04 1619382528) CALCIUM (test code = 8.9 mg/dL 8.6-10.6 1796763960) eGFR Calculation mL/min/1.73m2 (Non-) (test code = 1265902054) eGFR Calculation mL/min/1.73m2 () (test code = 4731285998) CINDI (test code = CINDI) Association of [...] tests). Lab Interpretation Abnormal (test code = 03122-8) [facility] WITH [id number] 16:25:00 Test Item Value Reference Range Interpretation Comments WBC (test code = See_Comment H [Automated 1791-2) message] The sy stem which generated this result transmitted reference range : 4.30 - 11.10 10*3/?L. The reference range was not used to interpret this result as normal/abnormal . RBC (test code = See_Comment [Automated 379-8) message] The sy stem which generated this [...] RDW-SD (test code = 41.1 fL 39-49.9 41585-3) RDW-CV (test code = 12.3 % 12-15.5 788-0) PLT (test code = See_Comment H [Automated 337-3) message] The sy stem which generated this result transmitted reference range : 166 - 358 10*3/ ?L. The reference r carlos was not used to interpret this result as normal/abnormal . MPV (test code = 9.2 fL 9.5-12.9 L 76845-0) NRBC/100 WBC (test See_Comment [Automat ed code = 0075273621) message] The system which generated this result transmitted reference range : 0.0 - 10.0 /100 WBCs. The refer ence range was not u sed to interpret th is result as normal/abnormal . NRBC x10^3 (test code <0.01 See_Comment [Auto mated = 9565428884) message] The s ystem which generated this result transmitted reference range : 10*3/?L. The reference range was not used to interpret this result as normal/abnormal . GRAN MAT (NEUT) % 68.0 % (test code = 770-8) IMM GRAN % (test code 0.50 % = 1279629152) LYMPH % (test code = 20.5 % 736-9) MONO % (test code = 6.6 % 5905-5) EOS % (test code = 3.9 % 713-8) BASO % (test code = 0.5 % 706-2) GRAN MAT x10^3(ANC) 8.09 10*3/uL 1.88-7.09 H (test code = 4870469991) IMM GRAN x10^3 (test 0.06 10*3/uL 0-0.06 code = 7934214818) LYMPH x10^3 (test code 2.43 10*3/uL 1.32-3.29 = 731-0) MONO x10^3 (test code 0.78 10*3/uL 0.33-0.92 = 742-7) EOS x10^3 (test code = 0.46 10*3/uL 0.03-0.39 H 711-2) BASO x10^3 (test code 0.06 10*3/uL 0.01-0.07 = 704-7) Lab Interpretation Abnormal (test code = 64188-0) [facility] (ID NOW RAPID TESTING)2020-07-15 19:30:00 Test Item Value Reference Range Interpretation Comments SARS-CoV-2 Rapid ID NOW Not Detected Not Detected (test code = 23997-3) CINDI (test code = CINDI) ID NOW COVID-19 Assay is an isothermal nucleic acid amplification test intended for the qualitative detection of nucleic acid from SARS-CoV-2 viral RNA in nasopharyngeal ([employer] OPERATOR) specimens. It is used under Emergency [...] indicated. Lab Interpretation Normal (test code = 88376-9) [facility]. METABOLIC PANEL (42557)2020-07-15 19:20:00 Test Item Value Reference Range Interpretation Comments NA (test code = 136 mmol/L 135-145 1598933406) K (test code = 4.6 mmol/L 3.5-5 3000475467) CL (test code = 102 mmol/L 98-108 4686452021) CO2 TOTAL (test code = 21 mmol/L 23-31 L 2478966731) AGAP (test code = 2-16 0935093151) BUN (test code = 7 mg/dL 7-23 2138404806) GLUCOSE (test code = 102 mg/dL 70-110 6749189502) CREATININE (test code = 0.82 mg/dL 0.5-1.04 0238302602) TOTAL BILI (test code = 0.8 mg/dL 0.1-1.5 7606538927) CALCIUM (test code = 9.8 mg/dL 8.6-10.6 3598961890) T PROTEIN (test code = 8.4 g/dL 6.3-8.2 H 9799072775) ALBUMIN (test code = 4.8 g/dL 3.5-5 5239150441) ALK PHOS (test code = 102 U/L 34-122 3064688465) ALTv (test code = 25 U/L 535 1742-6) AST(SGOT) (test code = 41 U/L 13-40 H 9684029389) eGFR Calculation mL/min/1.73m2 (Non-) (test code = 4026630551) eGFR Calculation mL/min/1.73m2 () (test code = 7779408273) CINDI (test code = CINDI) Association of [...] tests). Lab Interpretation Abnormal (test code = 29702-0) [facility] [id number] 19:20:00 Test Item Value Reference Range Interpretation Comments APPEARANCE (test code = Hazy Clear A 9980127460) COLOR (test code = Yvonne Yellow A 5129598352) PH (test code = 4.8-8.0 3515898895) SP GRAVITY (test code = 1.003-1.030 7222692767) GLU U QUAL (test code = Normal Normal 6120653369) BLOOD (test code = Negative Negative 2603746149) KETONES (test code = 5 mg/dL Negative A 2830893153) PROTEIN (test code = 30 mg/dL Negative A 2887-8) UROBILIN (test code = 2.0 mg/dL Normal A 5506638211) BILIRUBIN (test code = Negative Negative 3263758176) NITRITE (test code = Negative Negative 3172429811) LEUK SHIRLEY (test code = 25/uL Negative A 7308905274) RBC/HPF (test code = See_Comment [Autom ated message] 0054712976) The system Pay with a Tweet generated this result transmit fatemeh reference range : 0 - 3 HPF. The refe rence range was not u sed to interpret th is result as normal/abnormal . WBC/HPF (test code = See_Comment [Autom ated message] 5252484282) The system Pay with a Tweet generated this result transmit fatemeh reference range : 0 - 5 HPF. The refe rence range was not u sed to interpret th is result as normal/abnormal . BACTERIA (test code = Few Negative A 7780135670) MUCOUS (test code = Moderate Negative LPF A 1085584577) SQ EPITH (test code = HPF 5110439717) HYAL CAST (test code = See_Comment H [Aut omated message] 6314103373) The system Pay with a Tweet generated this result transmit fatemeh reference range : <=2 LPF. The refere nce range was not u sed to interpret th is result as normal/abnormal . Lab Interpretation (test Abnormal code = 26344-1) [facility] WITH [id number] 19:07:00 Test Item Value Reference Range Interpretation Comments WBC (test code = See_Comment H [Automated 6590-2) message] The system which generated this result transmit fatemeh reference range : 4.30 - 11.10 10*3/?L. The reference range was not used to interpret this result as normal/abnormal . RBC (test code = See_Comment [Automated 249-8) message] The system which generated this result [...] (test code = 38.5 fL 39-49.9 L 11456-9) RDW-CV (test code = 11.9 % 12-15.5 L 788-0) PLT (test code = See_Comment [Automated 777-3) message] The system which generated this result transmit fatemeh reference range : 166 - 358 10*3/ ?L. The reference range was not u sed to interpret th is result as normal/abnormal . MPV (test code = 9.5 fL 9.5-12.9 05755-1) NRBC/100 WBC (test See_Comment [Automat ed code = 2911473889) message] The system which generated this result transmit fatemeh reference range : 0.0 - 10.0 /100 WBCs. The reference range was not used to interpret this result as normal/abnormal . NRBC x10^3 (test code <0.01 See_Comment [Auto mated = 0157786618) message] The system which generated this result transmit fatemeh reference range : 10*3/?L. The reference range was not used to interpret this result as normal/abnormal . GRAN MAT (NEUT) % 79.2 % (test code = 770-8) IMM GRAN % (test code 0.40 % = 3590146268) LYMPH % (test code = 12.9 % 736-9) MONO % (test code = 5.2 % 5905-5) EOS % (test code = 1.9 % 713-8) BASO % (test code = 0.4 % 706-2) GRAN MAT x10^3(ANC) 11.12 10*3/uL 1.88-7.09 H (test code = 9445585401) IMM GRAN x10^3 (test 0.05 10*3/uL 0-0.06 code = 4324962478) LYMPH x10^3 (test code 1.81 10*3/uL 1.32-3.29 = 731-0) MONO x10^3 (test code 0.73 10*3/uL 0.33-0.92 = 742-7) EOS x10^3 (test code = 0.27 10*3/uL 0.03-0.39 711-2) BASO x10^3 (test code 0.05 10*3/uL 0.01-0.07 = 704-7) Lab Interpretation Abnormal (test code = 75673-4) [facility] [id number] 18:47:00 Test Item Value Reference Range Interpretation Comments POCT PREG (test code = 1605) negative On board controls acceptable with present C Line (test code = 3574) POCT PREG LOT # (test code = 3575) [id number] POCT PREG TEST DATE (test code = 3576) Lab Interpretation (test code = Normal 21174-8) [facility] CHEST 1 [id number] 22:08:34 No acute cardiopulmonary process. Preliminary Report [...] this study and agree with theabove report. [facility] CHEST 1 VW [id number] 12:56:21 1. No acute intrathoracic abnormality, specifically no detectableradiographic findings to suggest COVID-19 pneumonia. Disclaimer: Generally, the findings on chest imaging in COVID-19 are notspecific, and overlap with other infections, including influenza, H1N1,SARS and MERS.According to the Centers for Disease Control (CDC) and the [employer], viral testing remains the only [...] Centers for Disease Control (CDC) and the [employer], viral testing remains the only specific method of diagnosiseven if CXR or CT findings are suggestive of COVID-19. Preliminary Report Dictated by Resident: Margy Ocasio MD., have reviewed this study and agree with theabove report.[facility]. METABOLIC PANEL (60109)2020-03-22 08:04:00 Test Item Value Reference Range Interpretation Comments NA (test code = 138 mmol/L 135-145 3119086912) K (test code = 3.5 mmol/L 3.5-5 8155167176) CL (test code = 105 mmol/L 98-108 9162026263) CO2 TOTAL (test code = 22 mmol/L 23-31 L 3909974664) AGAP (test code = 2-16 6347890689) BUN (test code = 7 mg/dL 7-23 6379813272) GLUCOSE (test code = 99 mg/dL 70-110 3625963797) CREATININE (test code = 0.74 mg/dL 0.5-1.04 8443136508) TOTAL BILI (test code = 0.5 mg/dL 0.1-1.4 3016311055) CALCIUM (test code = 8.5 mg/dL 8.6-10.6 L 1059301405) T PROTEIN (test code = 6.7 g/dL 6.3-8.2 7320999134) ALBUMIN (test code = 4.1 g/dL 3.5-5 4792164072) ALK PHOS (test code = 74 U/L 34-122 5875772993) ALTv (test code = 32 U/L 5-35 1742-6) AST(SGOT) (test code = 54 U/L 13-40 H 5855642181) eGFR Calculation mL/min/1.73m2 (Non-) (test code = 0882083690) eGFR Calculation mL/min/1.73m2 () (test code = 4022654004) CINDI (test code = CINDI) Association of [...] tests). Lab Interpretation Abnormal (test code = 44503-8) [facility] CampusTROPONIN [id number] 07:57:00 Test Item Value Reference Range Interpretation Comments TROPONIN I (test <0.012 See_Comment [Automated code = 2737339185) message] The system which generated this result transmitted reference range : <=0.034 ng/mL. The reference range was not used to interpr et this result as normal/abnormal . CINDI (test code = Equal or Less than CINDI) 0.034 ng/ml---Normal ?Note: Cardiac troponin begins to [...] ? Lab Interpretation Normal (test code = 04274-3) [facility] CampusCORONAVIRUS COVID-19 [id number] 07:56:00 Test Item Value Reference Range Interpretation Comments SARS-CoV-2 (test code = Not Detected Not Detected 05758-4) CINDI (test code = CINDI) ID NOW COVID-19 Assay is an isothermal nucleic acid amplification test intended for the qualitative detection of nucleic acid from SARS-CoV-2 viral RNA in nasopharyngeal ([employer]) specimens. It is used under Emergency [...] indicated. Lab Interpretation Normal (test code = 68389-2) [facility] CampusLIPASE, [id number] 07:45:00 Test Item Value Reference Range Interpretation Comments LIPASE (test code = 0803247701) 58 U/L 0-220 Lab Interpretation (test code = Normal 07933-4) [facility] CampusCBC WITH [id number] 07:30:00 Test Item Value Reference Range Interpretation Comments WBC (test code = See_Comment [Automated 5590-2) message] The sy stem which generated this result transmitted reference range : 4.30 - 11.10 10*3/?L. The reference range was not used to interpret this result as normal/abnormal . RBC (test code = See_Comment [Automated 069-8) message] The sy stem which generated this [...] RDW-SD (test code = 39.8 fL 39-49.9 03332-3) RDW-CV (test code = 12.1 % 12-15.5 788-0) PLT (test code = See_Comment [Automated 777-3) message] The sy stem which generated this result transmitted reference range : 166 - 358 10*3/ ?L. The reference r carlos was not used to interpret this result as normal/abnormal . MPV (test code = 9.2 fL 9.5-12.9 L 63155-6) NRBC/100 WBC (test See_Comment [Automat ed code = 4723415061) message] The system which generated this result transmitted reference range : 0.0 - 10.0 /100 WBCs. The refer ence range was not u sed to interpret th is result as normal/abnormal . NRBC x10^3 (test code <0.01 See_Comment [Auto mated = 1727711463) message] The s ystem which generated this result transmitted reference range : 10*3/?L. The reference range was not used to interpret this result as normal/abnormal . GRAN MAT (NEUT) % 62.2 % (test code = 770-8) IMM GRAN % (test code 0.50 % = 6419751209) LYMPH % (test code = 24.6 % 736-9) MONO % (test code = 7.7 % 5905-5) EOS % (test code = 4.5 % 713-8) BASO % (test code = 0.5 % 706-2) GRAN MAT x10^3(ANC) 6.71 10*3/uL 1.88-7.09 (test code = 1630630490) IMM GRAN x10^3 (test 0.05 10*3/uL 0-0.06 code = 3569922618) LYMPH x10^3 (test code 2.65 10*3/uL 1.32-3.29 = 731-0) MONO x10^3 (test code 0.83 10*3/uL 0.33-0.92 = 742-7) EOS x10^3 (test code = 0.49 10*3/uL 0.03-0.39 H 711-2) BASO x10^3 (test code 0.05 10*3/uL 0.01-0.07 = 704-7) Lab Interpretation Abnormal (test code = 03092-8) [facility] METABOLIC [id number] 17:09:00 Test Item Value Reference Range Interpretation [...] = ALKP) Specimen comments: ccSpecimen comments: SEPSIS [id number] 17:09:00 Test Item Value Reference Range Interpretation Comments LIPASE (test code = LIP) 318 Unit/L 114-286 H Specimen comments: ccSpecimen comments: SEPSIS [id number] 17:09:00 Test Item Value Reference Range Interpretation [...] change s in troponin levelscharacter istic of [place]. Specimen comments: ccSpecimen comments: SEPSIS WORKUPPROCALCITONIN (PCT) [...] = ALKP) Specimen comments: ccSpecimen comments: SEPSIS [id number] 17:03:00 Test Item Value Reference Range Interpretation Comments LIPASE (test code = LIP) 318 Unit/L 114-286 H Specimen comments: ccSpecimen comments: SEPSIS [id number] 17:03:00 Test Item Value Reference Range Interpretation [...] change s in troponin levelscharacter istic of [place]. Specimen comments: ccSpecimen comments: SEPSIS WORKUPPROCALCITONIN (PCT) 2020-02-17 17:03:00 Test Item Value Reference Range Interpretation Comments PROCALCITONIN (PCT) (test code = NG/ML 0.00-0.10 PROCAL) Specimen comments: ccSpecimen comments: SEPSIS WORKUPLACTIC [id number] 17:01:00 Test Item Value Reference Range Interpretation Comments LACTIC ACID (test code = LACT) 1.4 mmol/L 0.4-2.0 N Specimen comments: ccBASIC METABOLIC [id number] 16:58:00 Test Item Value Reference Range Interpretation [...] = ALKP) Specimen comments: ccSpecimen comments: SEPSIS [id number] 16:58:00 Test Item Value Reference Range Interpretation Comments LIPASE (test code = LIP) 318 Unit/L 114-286 H Specimen comments: ccSpecimen comments: SEPSIS [id number] 16:58:00 Test Item Value Reference Range Interpretation [...] HE NEGATIVERESULT DOES NOT RULE OUT THE AL ESENCE OF STREP GROUP A.W HEN STREP GROUP A ANTIGEN IS DETECTED, THE P OSITIVE RESULTIS SIGNIF ICANT. NEGATIVE RESULT S REFLEX A CULTURE. FORNE GATIVE RESULTS A CULTU RE IS IN PROGRESS, RESUL T TO FOLLOW. HCG SERUM [id number] 16:55:00 Test Item Value Reference Range Interpretation Comments HCG SERUM QUAL (test code = HCGQL) NEG SCREEN NEG Specimen comments: SEPSIS WORKUP- XR CHEST 2 [id number] 16:55:00 FAX: Julia Sanz [phone] [place]: St: PRE Patient Name: JAIDEN ALVARADO Unit No: [id number] EXAMS: CPT CODE: [id number] XR CHEST 2 V 91916 PA and lateral views of the chest [...] 02/17/2020 (1657) KILLIAN Crawford NAME: JAIDEN ALVARADO [address] [place] [address] PHYS: Julia Rasmussen, [place] [address] : 1980 AGE: 39 SEX: F LOC: B.ERS PHONE #: [phone] EXAM DATE: 02/17/2020 STATUS: PRE ER FAX #: [phone] RAD NO: DC Dt: PAGE 1 Signed ReportUA RFLX MICR CULT IF [id number] 16:51:00 Test Item Value Reference Range Interpretation [...] Sepsis-no other srcUA RFLX MICR CULT IF [id number] 16:47:00 Test Item Value Reference Range Interpretation [...] for culture: Sev. Sepsis-no other srcCBC W/AUTO [id number] 16:45:00 Test Item Value Reference Range Interpretation [...]
[2021-11-15 20:29] LABS: Urine Blood 3+ (Negative); Urine Glucose Negative (Negative); Urine Protein 2+ (Negative)
[2021-11-15 20:45] LABS: Absolute Lymphocytes (CBC) 2.2 K/uL (0.7-4.9); Basophils % 0.4 % (0-1.3); Hematocrit 39.3 % (36.0-45.0); Lymphocytes % 13.2 % (15.3-44.8); MPV 7.1 fL (7.6-11.3); RBC Red Blood Cell Count 4.21 M/uL (3.86-4.86)
[2021-11-15 20:49] LABS: Protime INR 0.85
[2021-11-15 21:31] LABS: ALT/SGPT 38 U/L (12-78); AST/SGOT 30 U/L (15-37); Albumin 3.7 g/dL (3.4-5.0); Alkaline Phosphatase 117 U/L (45-117); BUN Blood Urea Nitrogen 6 mg/dL (7-18); Bicarbonate 23 mmol/L (21-32); Bilirubin Direct 0.1 mg/dL (0-0.2); Bilirubin Total 0.4 mg/dL (0.2-1.0); Glucose Level 110 mg/dL (74-106); Lipase 122 U/L (73-393); Magnesium 1.9 mg/dL (1.8-2.4); NT PRO-BNP 45 pg/mL (<125); Potassium 3.7 mmol/L (3.5-5.1); Protein, Total 7.3 g/dL (6.4-8.2); Sodium Level 141 mmol/L (136-145); Troponin (Emerg Dept Use Only) < 0.02 ng/mL (0.0-0.045)
[2021-11-15 22:03] LABS: Urine Bacteria <20 /HPF (<20)
[2021-11-15 22:04] LABS: Urine RBC 20-50 /HPF (NONE SEEN); Urine Urothelial Cells <5 /HPF (NONE SEEN)
[2021-11-15] MEDS ORDERED: LORazepam 2 MG/ML VIAL ONE (22:08)
[2021-11-15] MEDS ORDERED: HYDROMORPHONE HCL 2 MG/ML inj ONE (22:45)
[2021-11-15] MEDS ORDERED: ONDANSETRON 4 MG/2 ML VIAL ONE (22:45)
[2021-11-15] MEDS ORDERED: CEFEPIME 1 GM/VIAL ONE (22:45)
[2021-11-15] MEDS ORDERED: NA CHLORIDE 0.9% 250 ML ONE (23:20)
--- NOTE | 2021-11-15 23:34 | EDPHYS ---
Physician Documentation [facility] Name: Gabrielle Plata Age: 41 yrs Sex: Female : 1980 Arrival Date: 11/15/2021 Time: 19:05 Bed 13 Private MD: ED Physician Luis Desir HPI: 11/15 22:25 This 41 yrs old Female presents to ER via Ambulatory with complaints of Foreign body In sp3 Vagina. 22:25 41-year-old female with a history of Crohn's disease, past HPV, past MRSA, history of sp3 Gretta-Parikh tears who presents with chief complaint urethral and vaginal pain subsequent to possible foreign body during sexual intercourse 3 days ago. Patient states that her partner was engaged in "vigorous oral sex" on her 3 days ago and he had had jalapeno peppers and during that process "got a jalapeno seed stuck in the urethra". Patient at that time started to have burning sensation and instructed her partner to "use a Q-tip to get the seat out" but during that process the Q-tip was inserted deep and was lost and was not retrieved. Patient for the last 3 days states that she has had intermittent bloody urination and significant worsening of pain. She cannot state why she waited so long to seek medical attention but came in today secondary to the pain. She denies any vaginal discharge, fever, upper abdominal pain, shortness of breath, rash, or any other ROS at this time.. 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 - Social history:: Smoking status: Patient reports the use of cigarette tobacco products, smokes one-half pack cigarettes per day, Patient uses alcohol, occasionally. ROS: 22:28 Constitutional: Negative for fever, chills, and weight loss, Eyes: Negative for injury, sp3 pain, redness, and discharge, ENT: Negative for injury, pain, and discharge, Neck: Negative for injury, pain, and swelling, Cardiovascular: Negative for chest pain, palpitations, and edema, Respiratory: Negative for shortness of breath, cough, wheezing, and pleuritic chest pain, Abdomen/GI: Negative for abdominal pain, nausea, vomiting, diarrhea, and constipation, Back: Negative for injury and pain, Skin: Negative for injury, rash, and discoloration, Neuro: Negative for headache, weakness, numbness, tingling, and seizure, Psych: Negative for depression, anxiety, suicide ideation, homicidal ideation, and hallucinations, Allergy/Immunology: Negative for hives, rash, and allergies. 22:28 All other systems are negative. Exam: 22:29 Constitutional: This is a well developed, well nourished patient who is awake, alert, sp3 and in no acute distress. Head/Face: Normocephalic, atraumatic. Eyes: Pupils equal round and reactive to light, extra-ocular motions intact. Lids and lashes normal. Conjunctiva and sclera are non-icteric and not injected. Cornea within normal limits. Periorbital areas with no swelling, redness, or edema. ENT: Nares patent. No nasal discharge, no septal abnormalities noted. External auditory canals are clear. Oropharynx with no redness, swelling, or masses, exudates, or evidence of obstruction, uvula midline. Mucous membranes moist. Neck: Trachea midline, no thyromegaly or masses palpated, and no cervical lymphadenopathy. Supple, full range of motion without nuchal rigidity, or vertebral point tenderness. No Meningismus. Chest/axilla: Normal chest wall appearance and motion. Nontender with no deformity. No lesions are appreciated. Cardiovascular: Regular rate and rhythm with a normal S1 and S2. No gallops, murmurs, or rubs. Normal PMI, no JVD. No pulse deficits. Respiratory: Lungs have equal breath sounds bilaterally, clear to auscultation and percussion. No rales, rhonchi or wheezes noted. No increased work of breathing, no retractions or nasal flaring. Back: No spinal tenderness. No costovertebral tenderness. Full range of motion. Skin: Warm, dry with normal turgor. Normal color with no rashes, no lesions, and no evidence of cellulitis. MS/ Extremity: Pulses equal, no cyanosis. Neurovascular intact. Full, normal range of motion. Neuro: Awake and alert, GCS 15, oriented to person, place, time, and situation. Cranial nerves II-XII grossly intact. Motor strength 5/5 in all extremities. Sensory grossly intact. Cerebellar exam normal. Normal gait. Psych: Awake, alert, with orientation to person, place and time. Behavior, mood, and affect are within normal limits. 22:29 Abdomen/GI: Significant abdominal pain suprapubically with mild peritonitis. Upper quadrants are normal.. 22:29 : Pelvic exam performed with nurse in the room. Vaginal vault is empty and urethral meatus is swollen and inflamed and slowly leaking urine. Patient did not tolerate speculum exam secondary to pain.. Vital Signs: 19:28 Pulse 104; Resp 20; Temp 99.4; Pulse Ox 99% ; Weight 49.9 kg; Height 5 ft. 0 in. 5 (152.40 cm); Pain 10/10; 19:38 BP 159 / 107; jh5 21:30 BP 142 / 88; Pulse 88; Resp 18; Temp 98.4; Pulse Ox 100% on R/A; mr2 11/16 00:10 BP 116 / 93; Pulse 82; Resp 17; Temp 98.3; Pulse Ox 100% on R/A; mr2 11/15 19:28 Body Mass Index 21.48 (49.90 kg, 152.40 cm) [facility] MDM: 11/15 20:05 Patient medically screened. sp3 22:32 Data reviewed: vital signs, nurses notes. ED course: Patient has been kept n.p.o. and a sp3 stat CT scan of the pelvis with IV contrast was performed. Radiology read is pending but my viewing of the images demonstrate foreign body consistent with possible Q-tip that has been bent in half. There is significant inflammation with possible abscess as well. Given the cotton present on the Q-tip there is also concern for toxic shock. Patient has a WBC count of 17,000 and we will cover with cefepime and vancomycin here in the ED. Will consult with our urologist for possible intervention with cystoscopy with foreign body retrieval versus transferring to the Medical Center. Patient is aware of her diagnosis and we are will further delineate with radiology read.. ED course: Discussed with radiologist who just called and states that there is bladder wall thickening but no evidence of abscess at this time. Obvious foreign body in the bladder as well.. 22:49 ED course: There is no urologist inspector radar and electronics here however we tried to page the local [facility] urologist who is not reachable. At this time we will initiate transfer to [facility] for urgent urological intervention.. 23:31 ED course: Spoke with Dr. Mckenzie who is with the urology service at [address] who is kindly accepted this patient for transfer. We will be admitting to the hospitalist service so the transfer center will be calling back with attending and we will complete the transfer process.. 11/15 20:05 Order name: Basic Metabolic Panel [facility] 11/15 20:05 Order name: CBC with Diff [facility] 11/15 20:05 Order name: Hepatic Function; Complete Time: 21:43 [facility] 11/15 20:05 Order name: Lipase; Complete Time: 21:43 [facility] 11/15 20:05 Order name: UA MICROSCOPIC; Complete Time: 22:23 [facility] 11/15 20:05 Order name: PT-INR; Complete Time: 21:43 [facility] 11/15 20:05 Order name: Ptt, Activated; Complete Time: 21:43 [facility] 11/15 20:05 Order name: Basic Metabolic Panel; Complete Time: 21:43 [facility] 11/15 20:05 Order name: CBC with Automated Diff; Complete Time: 21:43 [facility] 11/15 20:29 Order name: Urine Dipstick-Ancillary [facility] 11/15 20:29 Order name: Urine Dipstick-Ancillary; Complete Time: 20:38 [facility] 11/15 20:05 Order name: CT Pelvis w cont [facility] 11/15 20:57 Order name: Troponin (Emerg Dept Use Only); Complete Time: 21:43 [facility] 11/15 20:57 Order name: NT PRO-BNP; Complete Time: 21:43 [facility] 11/15 20:57 Order name: Magnesium; Complete Time: 21:43 [facility] 11/15 22:04 Order name: Urine Culture [facility] 11/15 22:44 Order name: COVID-19 SARS RT PCR (Document "Date of Onset" if Symptomatic) 11/15 22:45 Order name: SARS-COV-2 RT PCR [facility] 11/15 20:05 Order name: IV Saline Lock; Complete Time: 20:20 [facility] 11/15 20:05 Order name: Labs collected and sent; Complete Time: 20:20 sp3 11/15 20:05 Order name: Urine Dipstick-Ancillary (obtain specimen); Complete Time: 00:13 sp3 11/15 20:05 Order name: NPO; Complete Time: 20:26 sp3 11/15 20:33 Order name: IV Saline Lock; Complete Time: 20:35 sp3 11/15 20:33 Order name: Labs collected and sent; Complete Time: 20:35 sp3 11/15 20:33 Order name: O2 Per Protocol; Complete Time: 20:35 sp3 Administered Medications: 22:30 Drug: Ativan (LORazepam) 1 mg Route: IVP; Site: left antecubital; mr2 22:51 Drug: Zofran (Ondansetron) 4 mg Route: IVP; Site: left antecubital; mr2 22:52 Drug: Dilaudid (HYDROmorphone) 1 mg Route: IVP; Site: left antecubital; mr2 22:56 Drug: Cefepime 2 grams Route: IVPB; Rate: 200 ml/hr; Infused Over: 30 mins; Site: left mr2 antecubital; Disposition Summary: 11/15/21 23:34 Transfer Ordered Transfer Location: [facility] sp3 Reason: Higher level of care sp3 Condition: Stable sp3 Problem: new sp3 Symptoms: are unchanged sp3 Accepting Physician: Claire Ramon (urology at [facility])(11/16/21 01:50) mr2 Diagnosis - Foreign body in the bladder, cystitis sp3 Forms: - Medication Reconciliation Form sp3 - SBAR form sp3 Signatures: Dispatcher [employer] EDMS Luis Desir MD MD sp3 Mikal Johnson RN RN mr2 Carlita Coe RN RN jh5 Corrections: (The following items were deleted from the chart) 20:35 20:33 Cardiac monitoring ordered. sp3 sp3 20:35 20:33 EKG - Nurse/Tech ordered. sp3 sp3 20:36 20:33 O2 Sat Monitoring ordered. sp3 sp3 20:37 20:35 Basic Metabolic Panel ordered. EDMS EDMS 20:37 20:35 CBC with Automated Diff ordered. EDMS EDMS 20:37 20:35 PROTIME (+INR)+COAG.LAB.BRZ ordered. EDMS EDMS 20:37 20:36 Chest Single View+RAD.RAD.BRZ ordered. EDMS EDMS 20:42 20:05 URINALYSIS+U.LAB.BRZ ordered. EDMS EDMS 20:56 20:35 HEPATIC FUNCTION+C.LAB.BRZ ordered. EDMS EDMS 20:56 20:35 MAGNESIUM+C.LAB.BRZ ordered. EDMS EDMS 20:56 20:35 PROBNP+C.LAB.BRZ ordered. EDMS EDMS 20:56 20:35 TROPONIN (EMERG DEPT USE ONLY)+C.LAB.BRZ ordered. EDMS EDMS 11/16 01:50 11/15 23:34 Dr. Mckenzie S (urology at [facility]) sp3 mr2
--- NOTE | 2021-11-15 23:34 | ER ---
Nurse's Notes [facility] Name: Gabrielle Plata Age: 41 yrs Sex: Female : 1980 Arrival Date: 11/15/2021 Time: 19:05 Bed 13 Private MD: Diagnosis: Foreign body in the bladder, cystitis Presentation: 11/15 19:28 Chief complaint: Patient states: Pt is unable to sit down; she has a qtip in her 5 urethra. She had oral sexual encounter 2 days ago, got a jalapeno seed stuck in her urethra, had partner try to get seed out with qtip and partner didn't tell her the qtip was stuck inside her.. now she has terrible abdominal pain, kidney pain, and she states; "my urethra is swollen and protruding outward". Coronavirus screen: Vaccine status: Patient reports being unvaccinated. Client denies travel out of the [place] in the last 14 days. Ebola Screen: Patient negative for fever greater than or equal to 101.5 degrees Fahrenheit, and additional compatible Ebola Virus Disease symptoms Patient denies exposure to infectious person. Patient denies travel to an Ebola-affected area in the 21 days before illness onset. Initial Sepsis Screen: Does the patient meet any 2 criteria? RR > 20 per min. HR > 90 bpm. Does the patient have a suspected source of infection? Yes: Dysuria/Frequency/Urgency/UTI. Risk Assessment: Do you want to hurt yourself or someone else? Patient reports no desire to harm self or others. Onset of symptoms was November 13, 2021. 19:28 Method Of Arrival: Ambulatory [facility] 19:28 Acuity: CATHIE 3 [facility] Triage Assessment: 19:38 General: Appears uncomfortable, slender, Behavior is calm, cooperative, appropriate for [facility] age, anxious, crying. Pain: Complains of pain in abdomen Pain currently is 10 out of 10 on a pain scale. at worst was 10 out of 10 on a pain scale. 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 - Social history:: Smoking status: Patient reports the use of cigarette tobacco products, smokes one-half pack cigarettes per day, Patient uses alcohol, occasionally. Screenin:10 Abuse screen: Denies threats or abuse. Denies injuries from another. Nutritional mr2 screening: No deficits noted. Tuberculosis screening: No symptoms or risk factors identified. Fall Risk None identified. Vital Signs: 19:28 Pulse 104; Resp 20; Temp 99.4; Pulse Ox 99% ; Weight 49.9 kg; Height 5 ft. 0 in. [facility] (152.40 cm); Pain 10/10; 19:38 BP 159 / 107; 5 21:30 BP 142 / 88; Pulse 88; Resp 18; Temp 98.4; Pulse Ox 100% on R/A; mr2 11/16 00:10 BP 116 / 93; Pulse 82; Resp 17; Temp 98.3; Pulse Ox 100% on R/A; mr2 11/15 19:28 Body Mass Index 21.48 (49.90 kg, 152.40 cm) [facility] ED Course: 11/15 19:05 Patient arrived in ED. 2 19:37 Triage completed. [facility] 19:55 Luis Desir MD is Attending Physician. 3 19:58 Mikal Johnson, RN is Primary Nurse. mr2 20:20 CBC with Automated Diff Sent. mr2 20:20 Basic Metabolic Panel Sent. mr2 20:20 Ptt, Activated Sent. mr2 20:20 PT-INR Sent. mr2 20:20 Basic Metabolic Panel Sent. mr2 20:20 CBC with Diff Sent. mr2 20:21 Hepatic Function Sent. mr2 20:21 Lipase Sent. mr2 20:25 Initial lab(s) drawn, by nd, sent to lab. Inserted saline lock: 22 gauge in right lt3 antecubital area, using aseptic technique. 21:10 No provider procedures requiring assistance completed. mr2 21:10 Patient has correct armband on for positive identification. mr2 21:11 Arm band placed on. mr2 22:07 CT Pelvis w cont In Process Unspecified. EDMS 22:52 COVID swab sent to lab. bb 22:52 COVID-19 SARS RT PCR (Document "Date of Onset" if Symptomatic) Sent. 11/16 01:40 Patient transferred, IV remains in place. mr2 Administered Medications: 11/15 22:30 Drug: Ativan (LORazepam) 1 mg Route: IVP; Site: left antecubital; mr2 22:51 Drug: Zofran (Ondansetron) 4 mg Route: IVP; Site: left antecubital; mr2 22:52 Drug: Dilaudid (HYDROmorphone) 1 mg Route: IVP; Site: left antecubital; mr2 22:56 Drug: Cefepime 2 grams Route: IVPB; Rate: 200 ml/hr; Infused Over: 30 mins; Site: left mr2 antecubital; Outcome: 23:34 ER care complete, transfer ordered by MD. boone 11/16 01:40 Transferred by ground EMS to [facility], Transfer form completed. mr2 Condition: stable Instructed on the need for transfer. 01:50 Patient left the ED. mr2 Signatures: Dispatcher [employer] Kelly Wagner, RN RN bb Luis Desir MD MD sp3 Carlita Davila Mike, RN RN mr2 Carlita Coe RN RN 5 [facility] Stapleton 3
[2021-11-16] MEDS ORDERED: DIPHENHYDRAMINE 50 MG/ML VIAL ONE
[2021-11-16] MEDS ORDERED: NA CHLORIDE 0.9% 1,000 ML ONE (00:05)
[2021-11-16 02:02] VITALS: O2SAT 100
[2021-11-16 02:04] VITALS: BP 116/93; TEMP 98.3
--- NOTE | 2021-11-16 10:50 | RAD REPORT ---
EXAM DESCRIPTION: CT - Pelvis W/Cont - 11/16/2021 6:27 am COMPARISON: None CLINICAL HISTORY: Foreign body urethra. TECHNIQUE: Multiple helical axial images were obtained through the pelvis using intravenous contrast . Coronal and sagittal reformatted images were obtained. All CT scans at this facility use dose modulation, iterative reconstruction, and/or weight-based dosi ng when appropriate to reduce radiation dose to as low as reasonably achievable. FINDINGS: Bladder: Bladder wall appears thickened. There is prominent bladder mucosal enhancement. T here is a 7 cm L shaped angulated low attenuating density within the bladder. Pelvic organs: Unremarkable. Bowel: No evidence of bowel obstruction. No bowel wall thickening. Appendix appears unremarkable. Vasculature: Unremarkable. Peritoneum: No free air. No significant free fluid. Lymph nodes: Unremarkable. Soft tissues: Unremarkable. Bones: Unremarkable. IMPRESSION: Angulated 7 cm density in the bladder suggestive of a foreign body. Thickened appearance of the bladder wall suggesting cystitis. THIS REPORT CONTAINS FINDINGS THAT MAY BE CRITICAL TO PATIENT CARE: The findings were verbally discu ssed via telephone conference with Dr. Desir by Dr. Drake at 2235 hours central time on November 15. The results were acknowledged and understood. Electronically signed by: Angelito Drake MD 11/15/2021 10:50 PM PROPOSAL MANAGER WRITER Due to temporary technical issues with the PACS/Fluency reporting system, reports are being signed by the in house radiologist without review as a courtesy to ensure prompt reporting. The interpreting r adiologist is fully responsible for the content of the report.
== END 2021-11-16 01:50 | disposition short-term general hospital (02) ==
LOC: ER 19:04
DX: T19.1XXA Foreign body in bladder, initial encounter (principal); N30.90 Cystitis, unspecified without hematuria; F17.210 Nicotine dependence, cigarettes, uncomplicated; Z88.2 Allergy status to sulfonamides; Z88.5 Allergy status to narcotic agent; Z88.8 Allergy status to other drugs, medicaments and biological substances
CPT/HCPCS: 36415; 72193; 80048; 80076; 81003; 81015; 83690; 83735; 83880; 84484; 85025; 85610; 85730; 87077; 87086; 87088; 87186; 96374; 96375; 99285; J0692; J1170; J1200; J2405; J7030; J7050; Q9967; U0003

== ENCOUNTER 2022-12-07 23:34 | Emergency (ER) | payer SELFPAY ==
--- OUTSIDE RECORDS SUMMARY | 2022-12-07 23:40 | XMS REPORT | Continuity of Care Document ---
:1980 Author Organization [facility] t Address [address] [place] [address] Care Team Providers Name Role Phone PCP, PATIENT DOES NOT HAVE A Primary Care Physician UnavailJOSÉ LUIS Perez Attending Clinician Unavailable CARLOS LOVE Attending Clinician Unavailable Yonas Perea MD Attending Clinician Mynor Hollis MD Attending Clinician MYNOR HOLLIS Attending Clinician Unavailable Dalia Mckinney Attending Clinician DALIA OROZCO Attending Clinician Unavailable Doctor Unassigned, [place] Attending Clinician Unavailable Trever Briggs DOip Attending Clinician Jose Guadalupe RN, Kaylah Lau Attending Clinician Unavailable Ashly LEZAMA, Andrew Attending Clinician ELO RIVERA Attending Clinician Unavailable Nicole BEASLEY, Elo Oconnell Attending Clinician DAVID CAMILO Attending Clinician Unavailable CHRIS FOY Attending Clinician Unavailable Al BEASLEY, Chris Attending Clinician Jak BEASLEY, Shun Rangel Attending Clinician Diogo BEASLEY, Sanjay Attending Clinician SANJAY LIND Attending Clinician Unavailable Physician, No Primary or Family Admitting Clinician UnavailCARLOS Galvez Admitting Clinician Unavailable Diogo BEASLEY, Sanjay Admitting Clinician SANJAY LIND Admitting Clinician Unavailable Payers Payer Name Policy Type Policy Number Effective Date Expiration Date S ource [employer] [place] [id number] 2020 WOMEN 00:00:00 MATTHEW [id number] 2020 2020 00:00:00 00:00:00 AGENCY GENERIC VC [id number] 2020 2020 00:00:00 00:00:00 Problems Condition Condition Condition Status Onset Resolution Last Treating Co mments Source Name Details Category Date Date Treatment Clinician Date Foreign Foreign Disease Active 2020-[address] [facility] body body 2-16 [facility] tract, tract, 00:00: Medical initial initial 00 Center encounter encounter 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) 00:00: 2019 pap [place] infection infection 00 smear, Medi dorothy patient Branch needs repeat pap smear in [...] bilateral 8-25 ity of tubal tubal 00:00: [place] ligation ligation 00 Medica l Branch Elevated Elevated Disease Active Unive rs blood blood 8-25 ity of pressure pressure 00:00: [place] reading reading 00 Medical without without Branch diagnosis diagnosis of of hypertensi hypertensi on on Anxiety Anxiety Disease Active Univers 5-07 ity of 00:00: [place] [facility] Chest pain Chest pain Disease Active U nivers 4-21 ity of 00:00: [place] [facility] Screening Screening Disease Active Uni vers examinatio examinatio 2-05 it y of n for STD n for STD 00:[place] ([place] (sexually 00 [facility] transmitte transmitte Br anch d disease) d disease) Premature Premature Disease Active 2016-12 Uni vers labor labor 0-24 ity of 00:00: [place] [facility] 34 weeks 34 weeks Disease Active 2016-12 Unive rs gestation gestation 0-14 ity of of of 00:00: [place] [facility] Disease Active 2016-12 Univers labor labor 0-14 ity of 00:00: [place] [facility] Crohn Crohn Disease Active Overview: Univer s disease disease 12-02 involving ity o f 00:00: small and [place] 00 large [facility] intesting Branch , biopsy confirmed . Gets colonosco py Q 6-12 months. 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 [place] es es Medical abortions Branch prior to 10 weeks, D&C in 2005 Allergies, Adverse Reactions, Alerts Allergy Allergy Status Severity Reaction(s) Onset Inactive Treating Comm ents Source Name Type Date Date Clinician KETOROLA Allergy Active 2020-12 [facility] C 2-16 00:00: 00 CEFEPIME Allergy Active Med Itching 2020-12 [facility] 2-16 00:00: 00 SULFA Allergy Active 2020-12 [facility] (SULFONA 2-16 MIDE 00:00: ANTIBIOT 00 ICS) CODEINE Allergy Active High Sob 2020-12 [facility] 2-16 00:00: 00 Cefepime Propensi Active Itching, 2020-[address] [facility] ty to Rash 2-16 [facility] adverse 00:00: Medical reaction 00 Center s Codeine Drug Active Shortness Of 2020-[address] [facility] Allergy Breath, 2-16 [facility] Itching, 00:00: Medical Nausea And 00 Center Vomiting Meperidi Propensi Active 2020-[address] [facility] ne ty to 2-16 [facility] adverse 00:00: Medical reaction 00 Center s Sulfa Propensi Active 2020-[address] [facility] (Sulfona ty to 2-16 [facility] mide adverse 00:00: Medical Antibiot reaction 00 Center ics) s Ketorola Propensi Active 2020-[address] [facility] c ty to 2-16 [facility] adverse 00:00: Medical reaction 00 Center s MEPERIDI Allergy Active 2020-12 [facility] NE 2-16 00:00: 00 meperidi DA Active MO 2020-0 [facility] ne HCl 3-18 [place] 00:00: [facility] 00 [facility] Sulfa DA Active MO 2020-0 [facility] (Sulfona 3-18 [place] mide 00:00: Region Antibiot 00 l ics) Medical [place] codeine DA Active MO 2020-0 [facility] 3-18 [place] 00:00: [facility] 00 [facility] meperidi DA Active MO vomiting 2020-0 [facility] ne HCl chest 3-18 [place] tightness 00:00: [facility] 00 [facility] Sulfa DA Active MO rash chest 2020-0 [facility] (Sulfona tightness 3-18 [place] 00:00: Regiona Antibiot 00 l ics) Medical Center codeine DA Active [place] rash chest 2020-0 [facility] tightness 3-18 [place] 00:00: [facility] 00 [facility] Marijuan Propensi Active Anaphylaxis 2018-0 U nivers [...] ICS) Branch Codeine Propensi Active Shortness of 2016- U nivers ty to Breath 0-25 ity of adverse 00:00: [place] reaction 00 Medical s Branch Meperidi Propensi Active Rash 2015-12 Univer s ne Hcl ty to 0-25 ity of adverse 00:00: [place] reaction 00 Medical s Branch Tramadol Propensi Active Nausea 2015-12 Univer s ty to and/or 0-25 ity of adverse Vomiting 00:00: [place] reaction 00 [facility] CODEINE DRUG Active SOB 2015-12 Univers INGREDI 0-25 ity of 00:00: [place] 00 Medical Branch MEPERIDI DRUG Active Rash 2015-12 Univers NE HCL INGREDI 0-25 ity of 00:00: [place] 00 Medical Branch TRAMADOL DRUG Active N/V 2015-12 Univers INGREDI 0-25 ity of 00:00: [place] 00 [facility] meperidi DA Active MO [facility] ne HCl 8-26 [place] 00:00: Regiona 00 [facility] Sulfa DA Active MO [facility] (Sulfona 8-26 [place] mide 00:00: Regiona Antibiot 00 l ics) Medical Center codeine DA Active MO [facility] 8-26 [place] 00:00: Regiona 00 [facility] meperidi DA Active MO vomiting [facility] ne HCl chest 8-26 [place] tightness 00:00: Region 00 [facility] Sulfa DA Active [place] rash chest [facility] (Sulfona tightness 8-26 [place] m[place] 00:00: Regiona Antibiot 00 l ics) Medical Center codeine DA Active [place] rash chest [facility] tightness 8-26 [place] 00:00: [facility] 00 Medical [place] Social History Social Habit Start Date Stop Date Quantity Comments Source History of tobacco Cigarette Smoker University of use [facility] Exposure to Not sure University of SARS-CoV-2 (event) [facility] Tobacco use and 2020-07-26 2020-07-26 Never used Universit y of exposure 00:00:00 00:00:00 [facility] Cigarettes smoked 2020-07-26 2020-07-26 Univers ity of current (pack per 00:00:00 00:00:00 [facility] ) - Reported Branch History SDOH 2020-07-26 2020-07-26 2 University o f Alcohol Frequency 00:00:00 00:00:00 [place] M edical Branch History SDOH 2020-07-26 2020-07-26 2 University o f Alcohol Std Drinks 00:00:00 00:00:00 [place] [facility] [place] History SDOH 2020-07-26 2020-07-26 99 University o f Alcohol Binge 00:00:00 00:00:00 [facility] al Branch Alcohol intake 2020-07-26 2020-07-26 Current drinker Unive rsity of 00:00:00 00:00:00 of alcohol [facility] (finding) Branch Tobacco Comment 2018-01-03 2018-01-03 Occasional Smoker Un iversity of 00:00:00 00:00:00 [facility] Alcohol Comment 2018-01-03 2018-01-03 Social Drinker Unive rsity of 00:00:00 00:00:00 [facility] Sex Assigned At [address] [address] Marcella kes 00:00:00 00:00:00 Medical Center Smoking Status Start Date Stop Date Source Current every day smoker 2020-07-26 00:00:00 [facility] Current some day smoker 2020-06-12 00:00:00 [facility] Medications Ordered Filled Start Stop Current Ordering Indication Dosage Frequency Signature Comments Components Source Medication Medication Date Date Medication? Clinician (SIG) Name Name lisinopriL 2020-12 Yes hypertensio 5mg QD Take [address] [facility] (PRINIVIL,Z 2-19 n tablet (5 Martha es ESTRIL) 5 00:00: mg total) Med ical MG tablet 00 by mouth Center daily. oxybutynin 2020-12 Yes 10mg QD Take 1 [facility] (DITROPAN-X 2-19 tablet (10 Mar[place]a kes L) 10 MG 24 00:00: mg total) M edical hr tablet 00 by mouth Center daily. busPIRone 2020-12 Yes 5mg Q.[id number] Take [address] [facility] (BUSPAR) 5 2-18 [id number] by mouth 3 [facility] MG tablet 15:41: 3D (three) Medic al 03 times Center daily. HYDROcodone 2020-12 Yes 1{tbl} Take [address] -acetaminop 2-18 tablet by Martha es hen (NORCO 00:00: mouth Medica l 5-325) 00 every 6 Center 5-325 mg (six) per tablet hours as needed for Pain. Max Daily Amount: 4 tablets ondansetron 2020-12 Yes 4mg Take [address] [facility] (ZOFRAN-ODT 2-18 tablet (4 Martha es ) 4 MG 00:00: mg total) Medica l disintegrat 00 by mouth Cent er ing tablet every 8 (eight) hours as needed for Nausea. oxybutynin 2020-12 Yes 5mg Take 1 [facility] (DITROPAN) 2-18 tablet (5 Luke s 5 MG tablet 00:00: mg total) M edical 00 by mouth 3 Center (three) times daily as needed (bladder spasms). ibuprofen No 600mg 600 mg, Uni vers (IBU) 12-26 Oral, ity of tablet 600 04:45: 03:53 ONCE, 1 Jose as mg 00 :00 dose, [facility] 12/25/20 at [place] 2245, MATTHEW ibuprofen No 600mg 600 mg, Uni vers (IBU) 12-26 Oral, ity of tablet 600 00:30: 12:29 ONCE, 1 Jose as mg 00 :00 dose, [facility] 12/25/20 at Branch 1830, MATTHEW metroNIDAZO 2020- No [id number] 2000mg Take 4 Univers LE 500 mg 12-26 tablets by ity of tablet 00:00: 05:59 mouth 2 [place] 00 :00 (two) Medical times [place] daily for 1 dose. NaCl 0.9% No 1000mL at 999 Uni vers (NS) bolus 12-25 mL/hr, ity of infusion 17:30: 18:07 1,000 mL, Jose as 1,000 mL 00 :00 [facility], 1 dose, [place] 12/25/20 at 1130, STAT proMETHazin No 12.5mg 12.5 mg, Univers e 12-25 IV ity of (PHENERGAN) 17:30: 16:45 [place], [place] 12.5 mg in 00 :00 ONCE, 1 Medica l NaCl 0.9% dose, [facility] h (NS) 50 mL 1/24/21 at piggyback 1130, 50 mL cefTRIAXone 2020- No 250mg 250 mg, U nivers (ROCEPHIN) 12-25 Intramuscu it y of injection 16:30: 16:45 [place], [place]CE [place] 250 mg 00 :00 NOW, 1 Medical dose, [place] Branch 12/25/20 at 1030, MATTHEW
Fa culty member approving Restricted medication : MYNOR HOLLIS
Reaso n for Anti-Infec tive: Documented Infection< br>Docu mented Infection Site: Abdominal< br>Duratio n of Therapy: 7 days azithromyci 2020- No 1000mg 1,000 mg, Univers n 12-25 Oral, ONCE ity of (ZITHROMAX) 16:30: 16:44 NOW, 1 Jose as tablet 00 :00 dose, [place] Medical 1,000 mg 12/25/20 at [facility] h 1030, MATTHEW
Re ason for Anti-Infec tive: Documented Infection< br>Documen fatemeh Infection Site: COVID
D uration of Therapy: 7 days FENTanyl PF Yes 50ug 50 mcg, Uni vers (SUBLIMAZE -24 Slow IV ity of (PF)) 16:14: Push, [place] injection 05 Q30MIN Medical 50 mcg PRN, 3 Branch doses, Starting 12/25/20 at 1014, Until Discontinu ed, MATTHEW, Pain (scale 7-10) iohexol 0 2020- No 120mL 120 mL, Unive rs (OMNIPAQUE 07-15 Intravenou it y of 350 22:15: 22:15 s, ONCE, 1 [place] BULK-150 00 :00 dose, Fri Medica l mL) 07/15/20 at [place] injection 1715, 120 mL Routine dicyclomine 0 Yes 10mg 10 mg, Univ ers (BENTYL) 07-15 Oral, QID, ity o f capsule 10 21:00: First dose [place] mg 00 on Fri Medical 07/15/20 at Branch 1600, Until Discontinu ed, Routine pantoprazol 0 2020- No 80mg 80 mg, IV Univers e 07-15-14 Piggy[place], ity of (PROTONIX) 19:45: 20:00 ONCE, 1 [place] as 80 mg in 00 :00 dose, Fri Medica l NaCl 0.9% 07/15/20 at Bran ch (NS) 100 mL 1445, 100 IV mL [place] sucralfate 2020-0 Yes [id number] 1g Take 1 Un gracy 1 gram 8-14 tablet by ity of tablet 00:00: mouth [place] 00 before Medical meals and Branch at bedtime. dicyclomine 2020-0 Yes [id number] 10mg Take 1 U nivers (BENTYL) 10 8-14 capsule by it y of mg capsule 00:00: mouth [place] 00 every 8 Medical (eight) Branch hours as needed for Abdominal pain. ondansetron 2020-0 Yes [id number] 4mg Take 1 U nivers 4 mg 8-14 tablet by ity of disintegrat 00:00: mouth [place] ing tablet 00 every 8 Medica l (eight) Branch hours as needed for Nausea and Vomiting (N/V). sucralfate 2020-0 Yes [id number] 1g Take 1 Un gracy 1 gram 8-14 tablet by ity of tablet 00:00: mouth [place] 00 before Medical meals and Branch at bedtime. dicyclomine 2020-0 Yes [id number] 10mg Take 1 U nivers (BENTYL) 10 8-14 capsule by it y of mg capsule 00:00: mouth [place] 00 every 8 Medical (eight) Branch hours as needed for Abdominal pain. ondansetron 2020-0 Yes [id number] 4mg Take 1 U nivers 4 mg 8-14 tablet by ity of disintegrat 00:00: mouth [place] ing tablet 00 every 8 Medica l (eight) Branch hours as needed for Nausea and Vomiting (N/V). sucralfate 2020-0 Yes [id number] 1g Take 1 Un gracy 1 gram 8-14 tablet by ity of tablet 00:00: mouth [place] 00 before Medical meals and Branch at bedtime. dicyclomine 2020-0 Yes [id number] 10mg Take 1 U nivers (BENTYL) 10 8-14 capsule by it y of mg capsule 00:00: mouth [place] 00 every 8 Medical (eight) Branch hours as needed for Abdominal pain. ondansetron 2020-0 Yes [id number] 4mg Take 1 U nivers 4 mg 8-14 tablet by ity of disintegrat 00:00: mouth [place] ing tablet 00 every 8 Medica l (eight) Branch hours as needed for Nausea and Vomiting (N/V). sucralfate 2020-0 Yes [id number] 1g Take 1 Un gracy 1 gram 8-14 tablet by ity of tablet 00:00: mouth [place] 00 before Medical meals and Branch at bedtime. dicyclomine 2020-0 Yes [id number] 10mg Take 1 U nivers (BENTYL) 10 8-14 capsule by it y of mg capsule 00:00: mouth [place] 00 every 8 Medical (eight) Branch hours as needed for Abdominal pain. ondansetron 2020-0 Yes [id number] 4mg Take 1 U nivers 4 mg 8-14 tablet by ity of disintegrat 00:00: mouth [place] ing tablet 00 every 8 Medica l (eight) Branch hours as needed for Nausea and Vomiting (N/V). sucralfate 2020-0 Yes [id number] 1g Take 1 Un gracy 1 gram 8-14 tablet by ity of tablet 00:00: mouth [place] 00 before Medical meals and Branch at bedtime. dicyclomine 2020-0 Yes [id number] 10mg Take 1 U nivers (BENTYL) 10 8-14 capsule by it y of mg capsule 00:00: mouth [place] 00 every 8 Medical (eight) Branch hours as needed for Abdominal pain. ondansetron 2020-0 Yes [id number] 4mg Take 1 U nivers 4 mg 8-14 tablet by ity of disintegrat 00:00: mouth [place] ing tablet 00 every 8 Medica l (eight) Branch hours as needed for Nausea and Vomiting (N/V). sucralfate 2020-0 Yes [id number] 1g Take 1 Un gracy 1 gram 8-14 tablet by ity of tablet 00:00: mouth [place] 00 before Medical meals and Branch at bedtime. dicyclomine 2020-0 Yes [id number] 10mg Take 1 U nivers (BENTYL) 10 8-14 capsule by it y of mg capsule 00:00: mouth [place] 00 every 8 Medical (eight) Branch hours as needed for Abdominal pain. ondansetron 2020-0 Yes [id number] 4mg Take 1 U nivers 4 mg 8-14 tablet by ity of disintegrat 00:00: mouth [place] ing tablet 00 every 8 Medica l (eight) Branch hours as needed for Nausea and Vomiting (N/V). sucralfate 2020-0 Yes [id number] 1g Take 1 Un gracy 1 gram 8-14 tablet by ity of tablet 00:00: mouth [place] 00 before Medical meals and Branch at bedtime. dicyclomine 2020-0 Yes [id number] 10mg Take 1 U nivers (BENTYL) 10 8-14 capsule by it y of mg capsule 00:00: mouth [place] 00 every 8 Medical (eight) Branch hours as needed for Abdominal pain. ondansetron 2020-0 Yes [id number] 4mg Take 1 U nivers 4 mg 8-14 tablet by ity of disintegrat 00:00: mouth [place] ing tablet 00 every 8 Medica l (eight) Branch hours as needed for Nausea and Vomiting (N/V). sucralfate 2020-0 Yes [id number] 1g Take 1 Un gracy 1 gram 8-14 tablet by ity of tablet 00:00: mouth [place] 00 before Medical meals and Branch at bedtime. dicyclomine 2020-0 Yes [id number] 10mg Take 1 U nivers (BENTYL) 10 8-14 capsule by it y of mg capsule 00:00: mouth [place] 00 every 8 Medical (eight) Branch hours as needed for Abdominal pain. ondansetron 2020-0 Yes [id number] 4mg Take 1 U nivers 4 mg 8-14 tablet by ity of disintegrat 00:00: mouth [place] ing tablet 00 every 8 Medica l (eight) Branch hours as needed for Nausea and Vomiting (N/V). sucralfate 2020-0 Yes [id number] 1g Take 1 Un gracy 1 gram 8-14 tablet by ity of tablet 00:00: mouth [place] 00 before Medical meals and Branch at bedtime. dicyclomine 2020-0 Yes [id number] 10mg Take 1 U nivers (BENTYL) 10 8-14 capsule by it y of mg capsule 00:00: mouth [place] 00 every 8 Medical (eight) Branch hours as needed for Abdominal pain. ondansetron 2020-0 Yes [id number] 4mg Take 1 U nivers 4 mg 8-14 tablet by ity of disintegrat 00:00: mouth [place] ing tablet 00 every 8 Medica l (eight) Branch hours as needed for Nausea and Vomiting (N/V). sucralfate 2020-0 Yes [id number] 1g Take 1 Un gracy 1 gram 8-14 tablet by ity of tablet 00:00: mouth [place] 00 before Medical meals and Branch at bedtime. dicyclomine 2020-0 Yes [id number] 10mg Take 1 U nivers (BENTYL) 10 8-14 capsule by it y of mg capsule 00:00: mouth [place] 00 every 8 Medical (eight) Branch hours as needed for Abdominal pain. ondansetron 2020-0 Yes [id number] 4mg Take 1 U nivers 4 mg 8-14 tablet by ity of disintegrat 00:00: mouth [place] ing tablet 00 every 8 Medica l (eight) Branch hours as needed for Nausea and Vomiting (N/V). sucralfate 2020-0 Yes [id number] 1g Take 1 Un gracy 1 gram 8-14 tablet by ity of tablet 00:00: mouth [place] 00 before Medical meals and Branch at bedtime. dicyclomine 2020-0 Yes [id number] 10mg Take 1 U nivers (BENTYL) 10 8-14 capsule by it y of mg capsule 00:00: mouth [place] 00 every 8 Medical (eight) Branch hours as needed for Abdominal pain. ondansetron 2020-0 Yes [id number] 4mg Take 1 U nivers 4 mg 8-14 tablet by ity of disintegrat 00:00: mouth [place] ing tablet 00 every 8 Medica l (eight) Branch hours as needed for Nausea and Vomiting (N/V). omeprazole 2020-0 2020- No [id number] 20mg Take 1 U nivers 20 mg 8-14 09-14 capsule by ity of capsule 00:00: 04:59 mouth [place] 00 :00 daily for Medical 30 days. Branch omeprazole 2020-0 2020- No [id number] 20mg Take 1 U nivers 20 mg 8-14 09-14 capsule by ity of capsule 00:00: 04:59 mouth [place] 00 :00 daily for Medical 30 days. Branch omeprazole 2020-0 2020- No [id number] 20mg Take 1 U nivers 20 mg 8-14 09-14 capsule by ity of capsule 00:00: 04:59 mouth [place] 00 :00 daily for Medical 30 days. Branch omeprazole 2020-0 2020- No [id number] 20mg Take 1 U nivers 20 mg 8-14 09-14 capsule by ity of capsule 00:00: 04:59 mouth [place] 00 :00 daily for Medical 30 days. Branch omeprazole 2020-0 2020- No [id number] 20mg Take 1 U nivers 20 mg 07-15 capsule by ity of capsule 00:00: 04:59 mouth [place] 00 :00 daily for Medical 30 days. Branch omeprazole 2020-0 2020- No [id number] 20mg Take 1 U nivers 20 mg 07-15 capsule by ity of capsule 00:00: 04:59 mouth [place] 00 :00 daily for Medical 30 days. Branch omeprazole 2020-0 2020- No [id number] 20mg Take 1 U nivers 20 mg 07-15 capsule by ity of capsule 00:00: 04:59 mouth [place] 00 :00 daily for Medical 30 days. Branch omeprazole 2020-0 2020- No [id number] 20mg Take 1 U nivers 20 mg 07-15 capsule by ity of capsule 00:00: 04:59 mouth [place] 00 :00 daily for Medical 30 days. Branch enoxaparin 2019-0 Yes 40mg 40 mg, Unive rs (LOVENOX) 4-21 Subcutaneo ity of injection 14:00: [place], [place]ILY, [place] 40 mg 00 First dose Medical on [facility]3] 03/22/20 at 0900, Until Discontinu ed, Routine ondansetron 2019-0 Yes 4mg 4 mg, Slow Univers (ZOFRAN 4-21 IV Push, ity of (PF)) 09:23: Q6HPRN, [place] injection 4 44 Starting Medi dorothy mg [facility]3] 03/22/20 at 0423, Until Discontinu ed, Routine, Nausea and Vomiting (N/V) ketorolac 2019-0 Yes 15mg 15 mg, Univer s (TORADOL) 4-21 Slow IV ity of injection 09:23: [place], [place] 15 mg 14 Q6HPRN, 4 Medical doses, Branch Starting [facility] 03/22/20 at 0423, Until Discontinu ed, Routine, chest pain
Fa culty member approving Restricted medication : SANJAY LIND acetaminoph 2019-0 Yes 650mg 650 mg, Un gracy en 4-21 Oral, ity of (TYLENOL) 09:22: Q6HPRN, [place] tablet 650 49 Starting Medic al mg [facility]3] 03/22/20 at 0422, Until Discontinu ed, Routine, Pain (scale 1-3) ondansetron 2020- No 4mg 4 mg, Slow Univers (ZOFRAN 03-22 IV Push, ity of (PF)) 07:15: 07:14 ONCE, 1 [place] injection 4 00 :00 dose, Tue Med ical mg 03/22/20 at Branch 0215, MATTHEW ondansetron 2018-12- No [id number] 4mg Take 1 Univers (ZOFRAN -26 03- tablet by ity of ODT) 4 mg 00:00: 00:00 mouth [place] disintegrat 00 :00 every 8 Medic al ing tablet (eight) Branch hours as needed for Nausea and Vomiting (N/V). ketorolac 2018-12- No [id number] 10mg Take 1 Univers 10 mg 01-26- tablet by ity of tablet 00:00: 00:00 mouth [place] 00 :00 every 6 Medical (six) Branch hours as needed for Pain (scale 1-3). No known No Univers medications [facility] No known No Univers medications [facility] No known No Univers medications [facility] No known No Univers medications [facility] No known No Univers medications [facility] Immunizations Ordered Filled Immunization Date Status Comments [facility] e Immunization Name Name Influenza Virus 2017-09-26 Completed Universit y of Vaccine Quad IM 3+ 00:00:00 [facility] Influenza Virus 2017-09-26 Completed Universit y of Vaccine Quad IM 3+ 00:00:00 [facility] Influenza Virus 2017-09-26 Completed Universit y of Vaccine Quad IM 3+ 00:00:00 [facility] Influenza Virus 2017-09-26 Completed Universit y of Vaccine Quad IM 3+ 00:00:00 [facility] Influenza Virus 2017-09-26 Completed Universit y of Vaccine Quad IM 3+ 00:00:00 [facility] Influenza Virus 2017-09-26 Completed Universit y of Vaccine Quad IM 3+ 00:00:00 [facility] Influenza Virus 2017-09-26 Completed Universit y of Vaccine Quad IM 3+ 00:00:00 [facility] Influenza Virus 2017-09-26 Completed Universit y of Vaccine Quad IM 3+ 00:00:00 [facility] Influenza Virus 2017-09-26 Completed Universit y of Vaccine Quad IM 3+ 00:00:00 [facility] Influenza Virus 2017-09-26 Completed Universit y of Vaccine Quad IM 3+ 00:00:00 [facility] Influenza Virus 2017-09-26 Completed Universit y of Vaccine Quad IM 3+ 00:00:00 [facility] Influenza Virus 2017-09-26 Completed Universit y of Vaccine Quad IM 3+ 00:00:00 [facility] Influenza Virus 2017-09-26 Completed Universit y of Vaccine Quad IM 3+ 00:00:00 [facility] Influenza Virus 2017-09-26 Completed Universit y of Vaccine Quad IM 3+ 00:00:00 [facility] Influenza Virus 2017-09-26 Completed Universit y of Vaccine Quad IM 3+ 00:00:00 [facility] Influenza Virus 2017-09-26 Completed Universit y of Vaccine Quad IM 3+ 00:00:00 [facility] Influenza Virus 2017-09-26 Completed Universit y of Vaccine Quad IM 3+ 00:00:00 [facility] Vital Signs Vital Name Observation Time Observation Value Comments Source Systolic blood 2020-12-26 115 mm[Hg] University of pressure 09:00:00 [facility] Diastolic blood 2020-12-26 76 mm[Hg] University o f pressure 09:00:00 [facility] Heart rate 2020-12-26 78 /min [facility] Center 09:00:00 [facility] Body temperature 2020-12-26 36.22 Yarelis [facility] 09:00:00 [facility] Respiratory rate 2020-12-26 16 /min [facility] 09:00:00 [facility] Oxygen saturation 2020-12-26 100 /min [facility] in Arterial blood 09:00:00 [facility] by Pulse oximetry [place] Body weight 2020-12-26 53.978 kg [facility] 00:27:00 [facility] BMI 2020-12-26 24.04 kg/m2 [facility] 00:27:00 [facility] Systolic blood 2020-12-26 115 mm[Hg] University of pressure 09:00:00 [facility] Diastolic blood 2020-12-26 76 mm[Hg] University o f pressure 09:00:00 [facility] Heart rate 2020-12-26 78 /min University of 09:00:00 [facility] Body temperature 2020-12-26 36.22 Yarelis University of 09:00:00 [facility] Respiratory rate 2020-12-26 16 /min University of 09:00:00 [facility] Oxygen saturation 2020-12-26 100 /min University of in Arterial blood 09:00:00 [facility] by Pulse oximetry [place] Body weight 2020-12-26 53.978 kg University of 00:27:00 [facility] BMI 2020-12-26 24.04 kg/m2 University of 00:27:00 [facility] Systolic blood 2020-12-25 92 mm[Hg] University of pressure 22:30:00 [facility] Branch Diastolic blood 2020-12-25 59 mm[Hg] University o f pressure 22:30:00 [facility] Heart rate 2020-12-25 91 /min University of :30:00 [facility] Respiratory rate 2020-12-25 14 /min University of 22:30:00 [facility] Oxygen saturation 2020-12-25 100 /min University of in Arterial blood 22:30:00 [facility] by Pulse oximetry Branch Body temperature 2020-12-25 36.89 Yarelis University of 16:07:00 [facility] Body height 2020-12-25 149.9 cm University of 16:07:00 [facility] Body weight 2020-12-25 53.978 kg University of 16:: [facility] BMI 2020-12-25 24.04 kg/m2 University of 16:07:00 [facility] Systolic blood 2020-12-25 92 mm[Hg] University of pressure 22:30:00 [facility] Diastolic blood 2020-12-25 59 mm[Hg] University o f pressure 22:30:00 [facility] Heart rate 2020-12-25 91 /min University of :30:00 [facility] Respiratory rate 2020-12-25 14 /min University of :30:00 [facility] Oxygen saturation 2020-12-25 100 /min University of in Arterial blood 22:30:00 [facility] by Pulse oximetry Branch Body temperature 2020-12-25 36.89 Yarelis University of 16:07:00 [facility] Body height 2020-12-25 149.9 cm University of 16:07:00 [facility] Body weight 2020-12-25 53.978 kg University of 16:07:00 [facility] BMI 2020-12-25 24.04 kg/m2 University of 16:07:00 [facility] Systolic blood 2020-07-26 146 mm[Hg] University of pressure 20:54:00 [facility] Diastolic blood 2020-07-26 96 mm[Hg] University o f pressure 20:54:00 [facility] Heart rate 2020-07-26 91 /min University of 19:55:00 [facility] Body temperature 2020-07-26 36.78 Yarelis University of 19:55:00 [facility] Respiratory rate 2020-07-26 16 /min University of 19:55:00 [facility] Body height 2020-07-26 172.7 cm University of 19:55:00 [facility] Body weight 2020-07-26 54.148 kg University of 19:55:00 [facility] BMI 2020-07-26 18.15 kg/m2 University of 19:55:00 [facility] Systolic blood 2020-07-15 119 mm[Hg] University of pressure 23:00:00 [facility] Diastolic blood 2020-07-15 80 mm[Hg] University o f pressure 23:00:00 [facility] Heart rate 2020-07-15 79 /min University of 23:00:00 [facility] Respiratory rate 2020-07-15 20 /min University of 23:00:00 [facility] Oxygen saturation 2020-07-15 96 /min [facility] in Arterial blood 23:00:00 [facility] by Pulse oximetry [place] Body temperature 2020-07-15 37.11 Yarelis University of 18:21:00 [facility] Body weight 2020-07-15 52.164 kg University of 18:21:00 [facility] BMI 2020-07-15 17.49 kg/m2 University of 18:21:00 [facility] Body temperature 2020-06-12 36.89 Yarelis University of 02:50:00 [facility] Respiratory rate 2020-06-12 24 /min University of 02:50:00 [facility] Body weight 2020-06-12 50.803 kg University of 02:50:00 [facility] BMI 2020-06-12 17.03 kg/m2 University of 02:50:00 [facility] Oxygen saturation 2020-06-12 98 /min [facility] in Arterial blood 02:50:00 [facility] by Pulse oximetry Branch Systolic blood 2020-06-12 141 mm[Hg] University of pressure 02:50:00 [facility] Diastolic blood 2020-06-12 105 mm[Hg] University o f pressure 02:50:00 [facility] Heart rate 2020-06-12 108 /min [facility] 02:50:00 [facility] Systolic blood 2020-03-22 131 mm[Hg] University of pressure 16:32:00 [facility] Diastolic blood 2020-03-22 81 mm[Hg] University o f pressure 16:32:00 [facility] Heart rate 2020-03-22 70 /min [facility] 16:32:00 [facility] Body temperature 2020-03-22 37.06 Yarelis [facility] 16:32:00 [facility] Respiratory rate 2020-03-22 18 /min [facility] 16:32:00 [facility] Oxygen saturation 2020-03-22 97 /min [facility] in Arterial blood 16:32:00 [facility] by Pulse oximetry [place] Body height 2020-03-22 172.7 cm patient stated [facility] 09:15:00 height on [facility] admission. [place] Body weight 2020-03-22 54.942 kg bedscale upon [facility] 09:15:00 admission to [facility] Branch BMI 2020-03-22 18.42 kg/m2 [facility] 09:15:00 [facility] Procedures Procedure Date / Time Performing Clinician Source Performed XR HAND 3+ VW LEFT 2020-12-26 09:21:04 Yonas Perea [facility] CT HEAD WO CONTRAST 2020-12-26 05:48:00 Yonas Perea [facility] ETHANOL 2020-12-25 21:54:00 Mynor Hollis [facility] ETHANOL 2020-12-25 20:21:00 Mynor Hollis [facility] POCT TEST 2020-12-25 18:07:00 Mynor Hollis [facility] ADC / LCC - DRUG SCREEN 2020-12-25 18:05:00 Mynor Hollis [facility] XR KUB 2020-12-25 17:06:45 Mynor Hollis [facility] COVID-19 (ID NOW RAPID 2020-12-25 16:55:00 Mynor Hollis [facility] TESTING) Medical Branch BASIC METABOLIC PANEL 2020-12-25 16:19:00 Mynor Hollis [facility] (NA, K, CL, CO2, Medical Branch GLUCOSE, BUN, CREATININE, CA) ETHANOL 2020-12-25 16:19:00 Mynor Hollis [facility] CBC WITH DIFF 2020-12-25 16:19:00 Mynor Hollis [facility] ASSIGNMENT OF BENEFITS 2020-07-26 19:40:02 Doctor Unassigned, No [facility] CT ABDOMEN PELVIS W 2020-07-15 22:13:14 Singer [facility] CONTRAST [facility] POCT TEST 2020-07-15 18:47:00 Singer [facility] COMP. METABOLIC PANEL 2020-07-15 18:45:00 [facility] ([id number]) Medical Branch CBC WITH DIFF 2020-07-15 18:45:00 [facility] URINALYSIS 2020-07-15 18:45[facility] (ID NOW RAPID 2020-07-15 18:45:00 Singer [facility] TESTING) Medical Branch CONSENT/REFUSAL FOR 2020-07-15 18:15:15 [facility] Name Medical Branch XR CHEST 1 VW 2020-06-12 21:33:46 Andrew Limon [facility] NOTICE OF PRIVACY 2020-06-12 20:57:27 Doctor Unassigned, No [facility] PRACTICES Name Medical Branch CONSENT/REFUSAL FOR 2020-06-12 20:53:21 [facility] Name Medical Branch ECHO ROUTINE W/DOPPLER 2020-03-22 14:40:35 Alex Thomas [facility] COLOR Medical Branch XR CHEST 1 VW COVID 2020-03-22 07:40:01 Shun Benedict [facility] Medical [place] CORONAVIRUS COVID-19 2020-03-22 07:16:00 Shun Benedict [facility] TESTING Medical Branch LIPASE 2020-03-22 07:14:00 Shun Benedict [facility] TROPONIN I 2020-03-22 07:14:00 Shun Benedict [facility] COMP. METABOLIC PANEL 2020-03-22 07:14:00 Shun Benedict [facility] ([id number]) [facility] CBC WITH DIFFERENTIAL 2020-03-22 07:14:00 Shun Benedict [facility] EKG-12 LEAD 2020-03-22 07:07:34 Shun Benedict [facility] EKG-12 LEAD 2020-03-22 07:01:19 Shun Benedict [facility] Plan of Care Planned Activity Planned Date Details Comments Source Future Scheduled 2022-08-[address] [facility] Test 00:00:00 (#1) [code = Medical Center INFLUENZA VACCINE (#1)] Future Scheduled 2021-12-[address] [facility] Test 00:00:00 (12+) [code = Medical Center DEPRESSION SCREENING (12+)] Future Scheduled [address] [facility] 00:[facility]:00 malignant neoplasm of Medica l Center cervix (procedure) [code = 724968145] Future Scheduled 1997 DTAP/TDAP/TD VACCINES [facility] Test 00:00:00 (1 - Tdap) [code = Medical C enter DTAP/TDAP/TD VACCINES (1 - Tdap)] Future Scheduled 1996 HEPATITIS C SCREENING [facility] Test 00:00:00 [code = HEPATITIS C Medical Center SCREENING] Future Scheduled [address] [facility] Test 00:00:00 Counseling and Medical Cente r Screening (12+) [code = Tobacco Cessation Counseling and Screening (12+)] Future Scheduled 1979-02-22 COVID-19 VACCINE (#1) [facility] Test 00:00:00 [code = COVID-[address] VACCINE (#1)] Encounters Start End Encounter Admission Attending Care Care Encounter Source Date/Time Date/Time Type Type Clinicians Facility Department ID 2021-09-30 Emergency [facility] [id number] Univers 19:08:09 ity of [facility] 2021-09-29 Emergency [facility] [id number] Univers 12:33:46 ity of [facility] 2021-09-29 Emergency [facility] [id number] Univers 06:13:55 ity of [facility] 2021-09-29 Emergency [facility] [id number] Univers 06:12:05 ity of [facility] 2020-05-12 Inpatient [facility] [id number] [facility] 00:35:00 93 [facility] 2020-02-17 Inpatient [facility] [id number] [facility] 15:56:00 19 [facility] 2021-11-16 2021-11-18 Inpatient ER [facility]ANE [facility], [facility] Urology [id number] [facility] 02:50:00 15:40:00 CARLOS 2020-12-25 2020-12-26 Emergency Brit, TRAUMA [id number] Univers 18:26:00 04:04:00 [facility] [id number] [id number] [address] 2020-12-25 2020-12-26 Emergency Brit, TRAUMA [id number] 18:26:00 04:04:00 [facility] [id number] 014 2020-12-25 2020-12-25 Emergency Harkey, [facility] [id number] Univers 10:03:00 18:22:00 [facility] [id number] it y [id number] [facility] [id number] [address] ([facility]) 2020-12-25 2020-12-25 Emergency X HARKEY, [facility] ERT [id number] Univers 10:03:00 18:22:00 MYNOR ity of [facility] 2020-12-25 2020-12-25 Emergency Harkey, [facility] [id number] 10:03:00 18:22:00 [facility] [id number] League [id number] [facility] [id number] [address] ([facility]) 2020-08-17 2020-08-17 [facility] [id number] [facility] 06:29:56 23:59:00 Encounter Roshunda R SPECIALTY [id number] ity of [id number] C[place] AT [id number] Id dical [address] 2020-08-17 2020-08-17 [facility] [id number] 06:29:56 23:59:00 Encounter Roshunda R SPECIALTY [id number] CARE [id number] CENTER AT [id number] [address] 2020-08-17 2020-08-17 Outpatient R [facility] [id number] Univers 00:00:00 00:00:00 DKNDA garrett o [facility] 2020-08-17 2020-08-17 Outpatient R [facility] [id number] Univers 00:00:00 00:00:00 DKNDA garrett o [facility] 2020-08-10 2020-08-10 Telephone [facility] [id number] Univers 00:00:00 00:00:00 Roshunda R [employer] [id number] ity [facility] [id number] Jose as MATERNAL [id number] Med ical & CHILD [address] [place] [address] 2020-08-10 2020-08-10 Telephone [facility] [id number] 00:00:00 00:00:00 Roshunda R [employer] [id number] REGIONAL [id number] MATERNAL [id number] & CHILD [address] [place] [address] 2020-07-26 2020-07-26 Office [facility] [id number] Univers 14:44:48 15:48:25 Visit Roshunda R [employer] [id number] ity of [facility] [id number] Jose as MATERNAL [id number] Med ical & CHILD 107 [facility] 2020-07-26 2020-07-26 Outpatient R PAM [facility] [id number] Univers 14:00:00 14:00:00 DKZAHRAAnish ity o f [facility] 2020-07-26 2020-07-26 Orders Doctor WARD 1.2.840.114 [id number] Univers 00:00:00 00:00:00 Only Unassigned, DERIAN [id number] ity of [place] [facility] [id number] Jose as [id number] [address] 2020-07-15 2020-07-15 Emergency [facility] [id number] Univers 13:25:00 19:02:00 Dhruv Gonzales [id number] i ty of [place] [id number] [facility] [id number] [address] 2020-06-14 2020-06-14 Telephone SYLVIA Shi 1.2.840.114 [id number] Univers 00:00:00 00:00:00 Kaylah MENARD [id number] i ty of [facility] [id number] Jose as [id number] [facility] 019 [place] 2020-06-12 2020-06-12 Emergency [facility] 1.2.840.114 [id number] Univers 15:56:18 17:25:00 Andrew Gonzales [id number] i ty of [place] [id number] [facility] [id number] [address] 2020-06-11 2020-06-11 Emergency [facility] [id number] Univers 21:45:46 22:38:00 Dhruv Gonzales [id number] i ty [id number] [id number] [address] 2020-04-07 2020-04-07 Outpatient R NICOLE [facility] [id number] Univers 13:30:00 13:30:00 MARLEENDIMARY KATE huffy o f [facility] 2020-04-07 2020-04-07 Telemedici [facility] [id number] Univers 07:52:01 08:22:01 ne Visit Elo Gonzales [id number] ity of [id number] Profess[place] [id number] Id dical nal 044 [facility] 2020-04-04 2020-04-04 Emergency E [facility] [id number] 16:52:00 19:36:00 DAVID 2020-03-29 2020-03-29 Outpatient R AL [facility] [id number] Univers 09:40:00 09:40:00 CHRIS tucker o [place] [facility] 2020-03-29 2020-03-29 Telemedici [facility] [id number] Univers 07:59:20 08:14:20 ne Visit Chris Gonzales [id number] ity of [id number] Profess[place] [id number] Id dical nal 059 [facility] 2020-03-22 2020-03-22 Emergency Shun Benedict [facility] 1.2.840 .114 [id number] Univers 02:10:55 13:40:00 Sanjay Lind [id number] ity of [id number] [id number] [facility] 081 [place] 2020-03-22 2020-03-22 Outpatient X DIOGO [facility] [id number] Univers 02:10:55 13:40:00 SANJAY ity of [facility] 2019-08-07 2019-08-07 Emergency E MHCY MHCY 7503 [facility]Y 13:27:00 13:27:00 2019-04-08 2019-04-08 Emergency E MHCY MHCY 7502 MHCY 14:22:00 14:22:00 2019-03-31 2019-03-31 Emergency E MHCY MHCY 7501 MHCY 14:37:00 14:37:00 Results Test Description Test Time Test Comments Results Result Comments Source BLOOD CULTURE 2021-11-21 06:00:50 Test Item Value Reference Range Interpretation Comme nts CULTURE (BEAKER) (test code = 1095) No growth in 5 days The specimen volume collected for this blood culture was below the optimum (10 mL per bottle or 20 mL total). Use of lower volumes may adversely affect recovery and/or detection times of some organisms.BLOOD [id number] 06:00:50 Test Item Value Reference Range Interpretation Comments CULTURE (BEAKER) (test No growth in 5 days code = 1095) SARS-COV2/RT-PCR ([facility])2021-11-18 08:28:01 Test Item Value Reference Range Interpretation Comments SARS-COV2/RT-PCR Negative Negative The SARS-Co V-2 target (test code = nucleic acids a re not [id number]) detected in thi s specimen. Negative result s do not preclude SARS-C oV-2 infection and s hould not be used as the amanda e basis for patient managem ent decisions. Nega tive results must be combine d with clinical observ ations, patient history , and epidemiological information. A false negativ e result may occur if a spec imen is improperly david ected, transported or handled. This SARS CoV-2 test is a rapid, real-time RT-PC R test intended for th e qualitative detection of nu cleic acid from SARS-CoV-2 in a nasopharyngeal swab specimen collected from individuals suspected of CO VID-19 by their healthcar e provider. This test has been authorized by FDA under an EUA for use by authorized laboratories. This test is only authorized for the duration of the declaration that circumstances exist justifying the authorization of emergency use of in vitro diagnostic tests for detection and/or diagnosis of COVID-19 under Section 564(b)(1) of the Federal Food, Drug and Cosmetic Act, 21 U.S.C. 360bbb-3(b)(1), unless the authorization is terminated or revoked sooner. Fact Sheet for Healthcare Providers: https://www.cepheid.co m/Documents/Xpert%20Xpress%20SARS%20CoV-2/Fact%20Sheets/448-7668%64YANP-XUN-3%20 HEALTHCARE%20PROVIDERS%20FACT%20SHEET.pdf Fact Sheet for Healthcare Patients: https://www.Monesbat.MaxTradeIn.com/Documents/Xpert%20Xp ress%20SARS%20CoV-2/Fact%20Sheets/302-3801%51GQWC-RWQ-9%20PATIENT%20FACT%20SHEET .[id number] 06:04:17 Test Item Value Reference Range Interpretation Comments MAGNESIUM (BEAKER) 2.1 mg/dL 1.6-2.6 Specimen slightly (test code = 627) hemolyzed Leadership Program Intern ID - NADEEM GOperator ID - NADEEM GBASIC METABOLIC [id number] 05:18:17 Test Item Value Reference Range Interpretation Comments SODIUM (BEAKER) 141 meq/L 136-145 (test code = 381) POTASSIUM (BEAKER) 4.3 meq/L 3.5-5.1 Specimen slightly (test code = 379) hemolyzed CHLORIDE (BEAKER) 107 meq/L 98-107 (test code = 382) CO2 (BEAKER) (test 26 meq/L 22-29 code = 355) BLOOD UREA NITROGEN 13 mg/dL 7-21 (BEAKER) (test code = 354) CREATININE (BEAKER) 0.77 mg/dL 0.57-1.25 Specimen slightly (test code = 358) hemolyzed GLUCOSE RANDOM 104 mg/dL 70-105 (BEAKER) (test code = 652) CALCIUM (BEAKER) 8.5 mg/dL 8.4-10.2 (test code = 697) EGFR (BEAKER) (test 82 mL/min/1.73 ESTIMA FATEMEH GFR IS code = 1092) sq m NOT ACCURATE CREATININE CLEARANCE IN PREDICTING GLOMERULAR FILTRATION RATE . ESTIMATED GFR I S NOT APPLICABLE FOR DIALYSIS PATIEN TS. Leadership Program Intern ID - NADEEM GCBC W/PLT COUNT & AUTO [id number] 04:53:25 Test Item Value Reference Range Interpretation Comments WHITE BLOOD CELL COUNT (BEAKER) 11.9 K/ L 3.5-10.5 H (test code = 775) RED BLOOD CELL COUNT (BEAKER) 3.36 M/ L 3.93-5.22 L (test code = 761) HEMOGLOBIN (BEAKER) (test code = 10.6 GM/DL 11.2-15.7 L 410) HEMATOCRIT (BEAKER) (test code = 31.1 % 34.1-44.9 L 411) MEAN CORPUSCULAR VOLUME (BEAKER) 92.6 fL 79.4-94.8 (test code = 753) MEAN CORPUSCULAR HEMOGLOBIN 31.5 pg 25.6-32.2 (BEAKER) (test code = 751) MEAN CORPUSCULAR HEMOGLOBIN CONC 34.1 GM/DL 32.2-35.5 (BEAKER) (test code = 752) RED CELL DISTRIBUTION WIDTH 12.9 % 11.7-14.4 (BEAKER) (test code = 412) PLATELET COUNT (BEAKER) (test 248 K/CU MM 150-450 code = 756) MEAN PLATELET VOLUME (BEAKER) 9.4 fL 9.4-12.3 (test code = 754) NUCLEATED RED BLOOD CELLS 0 /100 WBC 0-0 (BEAKER) (test code = 413) NEUTROPHILS RELATIVE PERCENT 65 % (BEAKER) (test code = 429) LYMPHOCYTES RELATIVE PERCENT 25 % (BEAKER) (test code = 430) MONOCYTES RELATIVE PERCENT 5 % (BEAKER) (test code = 431) EOSINOPHILS RELATIVE PERCENT 5 % (BEAKER) (test code = 432) BASOPHILS RELATIVE PERCENT 0 % (BEAKER) (test code = 437) NEUTROPHILS ABSOLUTE COUNT 7.75 K/ L 1.56-6.13 H (BEAKER) (test code = 670) LYMPHOCYTES ABSOLUTE COUNT 2.92 K/ L 1.18-3.74 (BEAKER) (test code = 414) MONOCYTES ABSOLUTE COUNT (BEAKER) 0.59 K/ L 0.24-0.36 H (test code = 415) EOSINOPHILS ABSOLUTE COUNT 0.56 K/ L 0.04-0.36 H (BEAKER) (test code = 416) BASOPHILS ABSOLUTE COUNT (BEAKER) 0.04 K/ L 0.01-0.08 (test code = 417) IMMATURE GRANULOCYTES-RELATIVE 0 % 0-1 PERCENT (BEAKER) (test code = 2801) BASIC METABOLIC [id number] 04:54:32 Test Item Value Reference Range Interpretation Comments SODIUM (BEAKER) 142 meq/L 136-145 (test code = 381) POTASSIUM (BEAKER) 4.0 meq/L 3.5-5.1 (test code = 379) CHLORIDE (BEAKER) 108 meq/L 98-107 H (test code = 382) CO2 (BEAKER) (test 26 meq/L 22-29 code = 355) BLOOD UREA NITROGEN 13 mg/dL 7-21 (BEAKER) (test code = 354) CREATININE (BEAKER) 0.85 mg/dL 0.57-1.25 (test code = 358) GLUCOSE RANDOM 105 mg/dL 70-105 (BEAKER) (test code = 652) CALCIUM (BEAKER) 8.4 mg/dL 8.4-10.2 (test code = 697) EGFR (BEAKER) (test 73 mL/min/1.73 ESTIMA FATEMEH GFR IS code = 1092) sq m NOT ACCURATE CREATININE CLEARANCE IN PREDICTING GLOMERULAR FILTRATION RATE . ESTIMATED GFR I S NOT APPLICABLE FOR DIALYSIS PATIEN TS. Leadership Program Intern RUTH KILLIAN [id number] 04:54:32 Test Item Value Reference Range Interpretation Comments MAGNESIUM (BEAKER) (test code = 1.9 mg/dL 1.6-2.6 627) Leadership Program Intern RUTH KILLIAN LCBC W/PLT COUNT & AUTO [id number] 04:16:32 Test Item Value Reference Range Interpretation Comments WHITE BLOOD CELL COUNT (BEAKER) 10.8 K/ L 3.5-10.5 H (test code = 775) RED BLOOD CELL COUNT (BEAKER) 3.28 M/ L 3.93-5.22 L (test code = 761) HEMOGLOBIN (BEAKER) (test code = 10.5 GM/DL 11.2-15.7 L 410) HEMATOCRIT (BEAKER) (test code = 31.6 % 34.1-44.9 L 411) MEAN CORPUSCULAR VOLUME (BEAKER) 96.3 fL 79.4-94.8 H (test code = 753) MEAN CORPUSCULAR HEMOGLOBIN 32.0 pg 25.6-32.2 (BEAKER) (test code = 751) MEAN CORPUSCULAR HEMOGLOBIN CONC 33.2 GM/DL 32.2-35.5 (BEAKER) (test code = 752) RED CELL DISTRIBUTION WIDTH 13.1 % 11.7-14.4 (BEAKER) (test code = 412) PLATELET COUNT (BEAKER) (test 240 K/CU MM 150-450 code = 756) MEAN PLATELET VOLUME (BEAKER) 9.1 fL 9.4-12.3 L (test code = 754) NUCLEATED RED BLOOD CELLS 0 /100 WBC 0-0 (BEAKER) (test code = 413) NEUTROPHILS RELATIVE PERCENT 62 % (BEAKER) (test code = 429) LYMPHOCYTES RELATIVE PERCENT 26 % (BEAKER) (test code = 430) MONOCYTES RELATIVE PERCENT 6 % (BEAKER) (test code = 431) EOSINOPHILS RELATIVE PERCENT 6 % (BEAKER) (test code = 432) BASOPHILS RELATIVE PERCENT 1 % (BEAKER) (test code = 437) NEUTROPHILS ABSOLUTE COUNT 6.70 K/ L 1.56-6.13 H (BEAKER) (test code = 670) LYMPHOCYTES ABSOLUTE COUNT 2.81 K/ L 1.18-3.74 (BEAKER) (test code = 414) MONOCYTES ABSOLUTE COUNT (BEAKER) 0.62 K/ L 0.24-0.36 H (test code = 415) EOSINOPHILS ABSOLUTE COUNT 0.59 K/ L 0.04-0.36 H (BEAKER) (test code = 416) BASOPHILS ABSOLUTE COUNT (BEAKER) 0.05 K/ L 0.01-0.08 (test code = 417) IMMATURE GRANULOCYTES-RELATIVE 1 % 0-1 PERCENT (BEAKER) (test code = 2801) URINALYSIS W/ REFLEX URINE [id number] 09:09:42 Test Item Value Reference Range Interpretation Comments COLOR (BEAKER) (test code = 470) Yellow CLARITY (BEAKER) (test code = 469) Hazy SPECIFIC GRAVITY UA (BEAKER) (test 1.019 1.001-1.035 code = 468) PH UA (BEAKER) (test code = 467) 6.5 5.0-8.0 PROTEIN UA (BEAKER) (test code = 100 mg/dL Negative A 464) GLUCOSE UA (BEAKER) (test code = Negative Negative 365) KETONES UA (BEAKER) (test code = Negative Negative 371) BILIRUBIN UA (BEAKER) (test code = Negative Negative 462) BLOOD UA (BEAKER) (test code = 461) Large Negative A NITRITE UA (BEAKER) (test code = Negative Negative 465) LEUKOCYTE ESTERASE UA (BEAKER) Large Negative A (test code = 466) UROBILINOGEN UA (BEAKER) (test code 0.2 mg/dL 0.2-1.0 = 463) RBC UA (BEAKER) (test code = 519) 1254 /HPF WBC UA (BEAKER) (test code = 520) 589 /HPF BACTERIA (BEAKER) (test code = 517) None Seen CRYSTALS, URINE (BEAKER) (test code None Seen = 1521) SOURCE(BEAKER) (test code = 2795) Leadership Program Intern ID - [auto]Leadership Program Intern ID - techPREGNANCY SCREEN, [id number] 06:44:04 Test Item Value Reference Range Interpretation Comments TEST URINE (BEAKER) (test Negative code = 583) BASIC METABOLIC [id number] 06:03:02 Test Item Value Reference Range Interpretation Comments SODIUM (BEAKER) 141 meq/L 136-145 (test code = 381) POTASSIUM (BEAKER) 3.9 meq/L 3.5-5.1 (test code = 379) CHLORIDE (BEAKER) 107 meq/L 98-107 (test code = 382) CO2 (BEAKER) (test 27 meq/L 22-29 code = 355) BLOOD UREA NITROGEN 5 mg/dL 7-21 L (BEAKER) (test code = 354) CREATININE (BEAKER) 0.77 mg/dL 0.57-1.25 (test code = 358) GLUCOSE RANDOM 90 mg/dL 70-105 (BEAKER) (test code = 652) CALCIUM (BEAKER) 8.6 mg/dL 8.4-10.2 (test code = 697) EGFR (BEAKER) (test 82 mL/min/1.73 ESTIMA FATEMEH GFR IS code = 1092) sq m NOT ACCURATE CREATININE CLEARANCE IN PREDICTING GLOMERULAR FILTRATION RATE . ESTIMATED GFR I S NOT APPLICABLE FOR DIALYSIS PATIEN TS. Leadership Program Intern ID - PIAYA LCBC W/PLT COUNT & AUTO [id number] 05:11:55 Test Item Value Reference Range Interpretation Comments WHITE BLOOD CELL COUNT (BEAKER) 16.1 K/ L 3.5-10.5 H (test code = 775) RED BLOOD CELL COUNT (BEAKER) 3.96 M/ L 3.93-5.22 (test code = 761) HEMOGLOBIN (BEAKER) (test code = 12.4 GM/DL 11.2-15.7 410) HEMATOCRIT (BEAKER) (test code = 37.5 % 34.1-44.9 411) MEAN CORPUSCULAR VOLUME (BEAKER) 94.7 fL 79.4-94.8 (test code = 753) MEAN CORPUSCULAR HEMOGLOBIN 31.3 pg 25.6-32.2 (BEAKER) (test code = 751) MEAN CORPUSCULAR HEMOGLOBIN CONC 33.1 GM/DL 32.2-35.5 (BEAKER) (test code = 752) RED CELL DISTRIBUTION WIDTH 13.0 % 11.7-14.4 (BEAKER) (test code = 412) PLATELET COUNT (BEAKER) (test 302 K/CU MM 150-450 code = 756) MEAN PLATELET VOLUME (BEAKER) 8.9 fL 9.4-12.3 L (test code = 754) NUCLEATED RED BLOOD CELLS 0 /100 WBC 0-0 (BEAKER) (test code = 413) NEUTROPHILS RELATIVE PERCENT 69 % (BEAKER) (test code = 429) LYMPHOCYTES RELATIVE PERCENT 21 % (BEAKER) (test code = 430) MONOCYTES RELATIVE PERCENT 6 % (BEAKER) (test code = 431) EOSINOPHILS RELATIVE PERCENT 4 % (BEAKER) (test code = 432) BASOPHILS RELATIVE PERCENT 0 % (BEAKER) (test code = 437) NEUTROPHILS ABSOLUTE COUNT 11.01 K/ L 1.56-6.13 H (BEAKER) (test code = 670) LYMPHOCYTES ABSOLUTE COUNT 3.38 K/ L 1.18-3.74 (BEAKER) (test code = 414) MONOCYTES ABSOLUTE COUNT (BEAKER) 0.98 K/ L 0.24-0.36 H (test code = 415) EOSINOPHILS ABSOLUTE COUNT 0.56 K/ L 0.04-0.36 H (BEAKER) (test code = 416) BASOPHILS ABSOLUTE COUNT (BEAKER) 0.07 K/ L 0.01-0.08 (test code = 417) IMMATURE GRANULOCYTES-RELATIVE 0 % 0-1 PERCENT (BEAKER) (test code = 2801) [id number] 22:12:00 Test Item Value Reference Range Interpretation Comments ALCOHOL (test code = 80 mg/dL 7857635862) CINDI (test code = Toxic Greater than or CINDI) equal to 80 mg/dL. NOTE: Whole blood values are approximately 10% to 15% lower than serum and plasma. [facility] 20:38[facility]00 Test Item Value Reference Range Interpretation Comments ALCOHOL (test code = 108 mg/dL 6946335266) CINDI (test code = Toxic Greater than or CINDI) equal to 80 mg/dL. NOTE: Whole blood values are approximately 10% to 15% lower than serum and plasma. [facility] / [facility] - DRUG SCREEN [id number] 18:24:00 Test Item Value Reference Range Interpretation Comments BENZO U (test code = Negative Negative 7799226320) SANDRA U (test code = Negative Negative 0956068507) AMPHET (test code = Negative Negative 9669309427) THC (test code = Negative Negative 5298566752) METHADONE (test code = Negative Negative 8888460031) Meth U (test code = Negative Negative 0784382730) OPIATES (test code = Negative Negative 9878362334) Cocaine Metabolite (test Presumptive Positive Negative A code = 6812767984) PROPOXY (test code = Negative Negative 5173922155) Tric U (test code = Negative Negative 0444318968) PCP (test code = Negative Negative 4487230733) OXYCOD (test code = Negative Negative 3659434202) CINDI (test code = CINDI) Urine Drug [...] testing). Lab Interpretation (test Abnormal code = 87009-8) [facility] [id number] 18:07:00 Test Item Value Reference Range Interpretation Comments POCT PREG (test code = 1605) Negative On board controls acceptable with C Present Line (test code = 3574) Lab Interpretation (test code = Normal 95537-0) [facility] [id number] 17:36:18 Nonobstructive bowel gas pattern. Preliminary Report [...] Cholecystectomy clips are noted. Theurinary bladder is prominent. [facility], Radiant Results Inft User - 12/25/2020 11:37 AM CSTEXAM: XR KUBHISTORY: 40 years-old female; Indication for study: rectal pain.COMPARISON: CT abdomen pelvis dated 07/15/2020FINDINGS:The bowel gas pattern is non-obstructive. No abnormal calcifications or radiopaque stones are identified. No acute bony abnormalities are noted. Cholecystectomy clips are noted. Theurinary bladder is prominent.IMPRESSIONNonobstructive bowel gas pattern.Preliminary Report Dictated by Resident: Ander Sahu MD., have reviewed this study and agree with the abovereport.[facility] (ID NOW RAPID TESTING)2020-12-25 17:13:00 Test Item Value Reference Range Interpretation Comments SARS-CoV-2 Rapid ID NOW Not Detected Not Detected (test code = 80411-8) CINDI (test code = CINDI) ID NOW COVID-19 Assay is an isothermal nucleic acid amplification test intended for the qualitative detection of nucleic acid from SARS-CoV-2 viral RNA in nasopharyngeal (CHILD CARE NURSE) specimens. It is used under Emergency Use [...] indicated. Lab Interpretation Normal (test code = 14735-1) [facility] 16:37:00 Test Item Value Reference Range Interpretation Comments ALCOHOL (test code = 196 mg/dL 9129559654) CINDI (test code = Toxic Greater than or CINDI) equal to 80 mg/dL. NOTE: Whole blood values are approximately 10% to 15% lower than serum and plasma. [facility] (NA, K, CL, CO2, GLUCOSE, BUN, CREATININE, CA)2020-12-25 16:37:00 Test Item Value Reference Range Interpretation Comments NA (test code = 144 mmol/L 135-145 1172801191) K (test code = 4.4 mmol/L 3.5-5 6662673435) CL (test code = 109 mmol/L 98-108 H 1279058334) CO2 TOTAL (test code = 22 mmol/L 23-31 L 6521264180) AGAP (test code = 2-16 1486665708) BUN (test code = 9 mg/dL 7-23 3531496102) GLUCOSE (test code = 103 mg/dL 70-110 2375714153) CREATININE (test code = 0.66 mg/dL 0.5-1.04 9513950721) CALCIUM (test code = 8.9 mg/dL 8.6-10.6 1537393949) eGFR Calculation mL/min/1.73m2 (Non-) (test code = 6452035438) eGFR Calculation mL/min/1.73m2 () (test code = 8301680909) CINDI (test code = CINDI) Association of [...] tests). Lab Interpretation Abnormal (test code = 38763-7) [facility] WITH [id number] 16:25:00 Test Item Value Reference Range Interpretation Comments WBC (test code = See_Comment H [Automated 9641-2) message] The sy stem which generated this result transmitted reference range : 4.30 - 11.10 10*3/?L. The reference range was not used to interpret this result as normal/abnormal . RBC (test code = See_Comment [Automated 797-8) message] The sy stem which generated this [...] RDW-SD (test code = 41.1 fL 39-49.9 63857-1) RDW-CV (test code = 12.3 % 12-15.5 788-0) PLT (test code = See_Comment H [Automated 777-3) message] The sy stem which generated this result transmitted reference range : 166 - 358 10*3/ ?L. The reference r carlos was not used to interpret this result as normal/abnormal . MPV (test code = 9.2 fL 9.5-12.9 L 09075-7) NRBC/100 WBC (test See_Comment [Automat ed code = 1594761007) message] The system which generated this result transmitted reference range : 0.0 - 10.0 /100 WBCs. The refer ence range was not u sed to interpret th is result as normal/abnormal . NRBC x10^3 (test code <0.01 See_Comment [Auto mated = 1640461610) message] The s ystem which generated this result transmitted reference range : 10*3/?L. The reference range was not used to interpret this result as normal/abnormal . GRAN MAT (NEUT) % 68.0 % (test code = 770-8) IMM GRAN % (test code 0.50 % = 4502856114) LYMPH % (test code = 20.5 % 736-9) MONO % (test code = 6.6 % 5905-5) EOS % (test code = 3.9 % 713-8) BASO % (test code = 0.5 % 706-2) GRAN MAT x10^3(ANC) 8.09 10*3/uL 1.88-7.09 H (test code = 1975650333) IMM GRAN x10^3 (test 0.06 10*3/uL 0-0.06 code = 4044481206) LYMPH x10^3 (test code 2.43 10*3/uL 1.32-3.29 = 731-0) MONO x10^3 (test code 0.78 10*3/uL 0.33-0.92 = 742-7) EOS x10^3 (test code = 0.46 10*3/uL 0.03-0.39 H 711-2) BASO x10^3 (test code 0.06 10*3/uL 0.01-0.07 = 704-7) Lab Interpretation Abnormal (test code = 97996-0) [facility]2020-07-15 19:30:00 Test Item Value Reference Range Interpretation Comments SARS-CoV-2 Rapid ID NOW Not Detected Not Detected (test code = 23020-8) CINDI (test code = CINDI) ID NOW COVID-19 Assay is an isothermal nucleic acid amplification test intended for the qualitative detection of nucleic acid from SARS-CoV-2 viral RNA in nasopharyngeal (CHILD CARE NURSE) specimens. It is used under Emergency Use [...] indicated. Lab Interpretation Normal (test code = 46089-8) [facility]. METABOLIC PANEL (65509)2020-07-15 19:20:00 Test Item Value Reference Range Interpretation Comments NA (test code = 136 mmol/L 135-145 1890762791) K (test code = 4.6 mmol/L 3.5-5 2096068279) CL (test code = 102 mmol/L 98-108 4686361856) CO2 TOTAL (test code = 21 mmol/L 23-31 L 6146450388) AGAP (test code = 2-16 9839244134) BUN (test code = 7 mg/dL 7-23 8054278407) GLUCOSE (test code = 102 mg/dL 70-110 5264672741) CREATININE (test code = 0.82 mg/dL 0.5-1.04 7672833467) TOTAL BILI (test code = 0.8 mg/dL 0.1-1.1 2916020323) CALCIUM (test code = 9.8 mg/dL 8.6-10.6 9128486026) T PROTEIN (test code = 8.4 g/dL 6.3-8.2 H 2847802962) ALBUMIN (test code = 4.8 g/dL 3.5-5 6477622012) ALK PHOS (test code = 102 U/L 34-122 6505825619) ALTv (test code = 25 U/L 5-35 1742-6) AST(SGOT) (test code = 41 U/L 13-40 H 9459803717) eGFR Calculation mL/min/1.73m2 (Non-) (test code = 6351303037) eGFR Calculation mL/min/1.73m2 () (test code = 8003971115) CINDI (test code = CINDI) Association of [...] tests). Lab Interpretation Abnormal (test code = 46071-9) [facility] [id number] 19:20:00 Test Item Value Reference Range Interpretation Comments APPEARANCE (test code = Hazy Clear A 5953540047) COLOR (test code = Yvonne Yellow A 9425172133) PH (test code = 4.8-8.0 8497230643) SP GRAVITY (test code = 1.003-1.030 9189599782) GLU U QUAL (test code = Normal Normal 8597404291) BLOOD (test code = Negative Negative 3266711666) KETONES (test code = 5 mg/dL Negative A 8594602842) PROTEIN (test code = 30 mg/dL Negative A 2887-8) UROBILIN (test code = 2.0 mg/dL Normal A 5006170569) BILIRUBIN (test code = Negative Negative 7438727031) NITRITE (test code = Negative Negative 3192227392) LEUK SHIRLEY (test code = 25/uL Negative A 3669011471) RBC/HPF (test code = See_Comment [Autom ated message] 9429586980) The system [employer] generated this result transmit fatemeh reference range : 0 - 3 HPF. The refe rence range was not u sed to interpret th is result as normal/abnormal . WBC/HPF (test code = See_Comment [Autom ated message] 5543629740) The system [employer] generated this result transmit fatemeh reference range : 0 - 5 HPF. The refe rence range was not u sed to interpret th is result as normal/abnormal . BACTERIA (test code = Few Negative A 7526704793) MUCOUS (test code = Moderate Negative LPF A 4535337666) SQ EPITH (test code = HPF 0280092732) HYAL CAST (test code = See_Comment H [Aut omated message] 2492756999) The system [employer] generated this result transmit fatemeh reference range : <=2 LPF. The refere nce range was not u sed to interpret th is result as normal/abnormal . Lab Interpretation (test Abnormal code = 20172-2) [facility] WITH [id number] 19:07:00 Test Item Value Reference Range Interpretation Comments WBC (test code = See_Comment H [Automated 90-2) message] The system which generated this result transmit fatemeh reference range : 4.30 - 11.10 10*3/?L. The reference range was not used to interpret this result as normal/abnormal . RBC (test code = See_Comment [Automated 599-8) message] The system which generated this result [...] (test code = 38.5 fL 39-49.9 L 05477-7) RDW-CV (test code = 11.9 % 12-15.5 L 788-0) PLT (test code = See_Comment [Automated 777-3) message] The system which generated this result transmit fatemeh reference range : 166 - 358 10*3/ ?L. The reference range was not u sed to interpret th is result as normal/abnormal . MPV (test code = 9.5 fL 9.5-12.9 58160-1) NRBC/100 WBC (test See_Comment [Automat ed code = 8676764271) message] The system which generated this result transmit fatemeh reference range : 0.0 - 10.0 /100 WBCs. The reference range was not used to interpret this result as normal/abnormal . NRBC x10^3 (test code <0.01 See_Comment [Auto mated = 9023721940) message] The system which generated this result transmit fatemeh reference range : 10*3/?L. The reference range was not used to interpret this result as normal/abnormal . GRAN MAT (NEUT) % 79.2 % (test code = 770-8) IMM GRAN % (test code 0.40 % = 3326479575) LYMPH % (test code = 12.9 % 736-9) MONO % (test code = 5.2 % 5905-5) EOS % (test code = 1.9 % 713-8) BASO % (test code = 0.4 % 706-2) GRAN MAT x10^3(ANC) 11.12 10*3/uL 1.88-7.09 H (test code = 8857615715) IMM GRAN x10^3 (test 0.05 10*3/uL 0-0.06 code = 7793851140) LYMPH x10^3 (test code 1.81 10*3/uL 1.32-3.29 = 731-0) MONO x10^3 (test code 0.73 10*3/uL 0.33-0.92 = 742-7) EOS x10^3 (test code = 0.27 10*3/uL 0.03-0.39 711-2) BASO x10^3 (test code 0.05 10*3/uL 0.01-0.07 = 704-7) Lab Interpretation Abnormal (test code = 76700-0) [facility] [id number] 18:47:00 Test Item Value Reference Range Interpretation Comments POCT PREG (test code = 1605) negative On board controls acceptable with present C Line (test code = 3574) POCT PREG LOT # (test code = 3575) [id number] POCT PREG TEST DATE (test code = 3576) Lab Interpretation (test code = Normal 48770-1) [facility] 1 [id number] 22:08:34 No acute cardiopulmonary process. Preliminary Report Dictated by Resident: Nataly Abdul MD., have reviewed this study and agree with theabove report.PROCEDURE: XR CHEST 1 VW CLINICAL INDICATION: chest pain TECHNIQUE: AP views of the chest. COMPARISON: None FINDINGS: The lungsare clear without consolidation. No pleural effusion orpneumothorax is seen. The heart is normal in size. No acute bony abnormality is noted. Cholecystectomy clips. [facility], Radiant Results Inft User - 06/12/2020 5:09 PM CDTPROCEDURE: XR CHEST 1 VWCLINICAL INDICATION: chest pain TECHNIQUE: AP views of the chest.COMPARISON: NoneFINDINGS:The lungs are clear without consolidation. No pleural effusion orpneumothorax is seen. The heart is normal in size.No acute bony abnormality is noted. Cholecystectomy clips. IMPRESSIONNo acute cardiopulmonary process.Preliminary Report Dictated by Resident: Woongsoon ChoiI, Red Klimkowski, MD., have reviewed this study and agree with theabove report. [facility] VW [id number] 12:56:21 1. No acute intrathoracic abnormality, specifically no detectableradiographic findings to suggest COVID-19 pneumonia. Disclaimer: Generally, the findings on chest imaging in COVID-19 are notspecific, and overlap with other infections, including influenza, H1N1,SARS and MERS.According to the Centers for Disease Control (CDC) and the [employer], viral testing remains the only [...] [facility], Radiant Results Inft User - 03/22/2020 7:57AM CDTEXAM: XR CHEST 1 VW COVIDHISTORY: chest pain COMPARISON: NoneFINDINGS:1. The lungs are clear. No consolidation, pleural effusion or pneumothoraxis visualized.2. The heart is normal in size.3. No acute bony abnormality.IMPRESSION1. No acute intrathoracic abnormality, specifically no detectableradiographic findings to suggest COVID-19 pneumonia.Disclaimer: Generally, the findings on chest imagingin COVID-19 are notspecific, and overlap with other infections, including influenza, H1N1,SARS and MERS.According to the Centers for Disease Control (CDC) and the [employer], viral testing remains the only specific method of diagnosiseven if CXR or CT findings are suggestive of COVID-19. Preliminary Report Dictated by Resident: Margy Ocasio MD.,have reviewed this study and agree with theabove report.[facility]. METABOLIC PANEL (80705)2020-03-22 08:04:00 Test Item Value Reference Range Interpretation Comments NA (test code = 138 mmol/L 135-145 5213554726) K (test code = 3.5 mmol/L 3.5-5 1849794371) CL (test code = 105 mmol/L 98-108 9225906037) CO2 TOTAL (test code = 22 mmol/L 23-31 L 5463008793) AGAP (test code = 2-16 1295279813) BUN (test code = 7 mg/dL 7-23 2775417755) GLUCOSE (test code = 99 mg/dL 70-110 5956965123) CREATININE (test code = 0.74 mg/dL 0.5-1.04 1464182090) TOTAL BILI (test code = 0.5 mg/dL 0.1-1.6 5427012754) CALCIUM (test code = 8.5 mg/dL 8.6-10.6 L 8728352974) T PROTEIN (test code = 6.7 g/dL 6.3-8.2 5376545487) ALBUMIN (test code = 4.1 g/dL 3.5-5 7870275977) ALK PHOS (test code = 74 U/L 34-122 8494531460) ALTv (test code = 32 U/L 5-35 1742-6) AST(SGOT) (test code = 54 U/L 13-40 H 0968838355) eGFR Calculation mL/min/1.73m2 (Non-) (test code = 6722023668) eGFR Calculation mL/min/1.73m2 () (test code = 1734645333) CINDI (test code = CINDI) Association of [...] tests). Lab Interpretation Abnormal (test code = 55954-8) [facility]TROP[facility] [id number] 07:57:00 Test Item Value Reference Range Interpretation Comments TROPONIN I (test <0.012 See_Comment [Automated code = 8357585015) message] The system which generated this result [...] ? Lab Interpretation Normal (test code = 29063-1) [facility] COVID-19 [id number] 07:56:00 Test Item Value Reference Range Interpretation Comments SARS-CoV-2 (test code = Not Detected Not Detected 41597-6) CINDI (test code = CINDI) ID NOW COVID-19 Assay is an isothermal nucleic acid amplification test intended for the qualitative detection of nucleic acid from SARS-CoV-2 viral RNA in nasopharyngeal (CHILD CARE NURSE) specimens. It is used under Emergency Use [...] indicated. Lab Interpretation Normal (test code = 06567-6) [facility]bergLIPASE, [id number] 07:45:00 Test Item Value Reference Range Interpretation Comments LIPASE (test code = 0858841906) 58 U/L 0-220 Lab Interpretation (test code = Normal 22414-1) [facility]CB WITH [id number] 07:30:00 Test Item Value Reference Range Interpretation Comments WBC (test code = See_Comment [Automated 1990-2) message] The sy stem which generated this result transmitted reference range : 4.30 - 11.10 10*3/?L. The reference range was not used to interpret this result as normal/abnormal . RBC (test code = See_Comment [Automated 831-8) message] The sy stem which generated this [...] RDW-SD (test code = 39.8 fL 39-49.9 34349-2) RDW-CV (test code = 12.1 % 12-15.5 788-0) PLT (test code = See_Comment [Automated 777-3) message] The sy stem which generated this result transmitted reference range : 166 - 358 10*3/ ?L. The reference r carlos was not used to interpret this result as normal/abnormal . MPV (test code = 9.2 fL 9.5-12.9 L 23357-5) NRBC/100 WBC (test See_Comment [Automat ed code = 8997819372) message] The system which generated this result transmitted reference range : 0.0 - 10.0 /100 WBCs. The refer ence range was not u sed to interpret th is result as normal/abnormal . NRBC x10^3 (test code <0.01 See_Comment [Auto mated = 0350180455) message] The s ystem which generated this result transmitted reference range : 10*3/?L. The reference range was not used to interpret this result as normal/abnormal . GRAN MAT (NEUT) % 62.2 % (test code = 770-8) IMM GRAN % (test code 0.50 % = 4274486844) LYMPH % (test code = 24.6 % 736-9) MONO % (test code = 7.7 % 5905-5) EOS % (test code = 4.5 % 713-8) BASO % (test code = 0.5 % 706-2) GRAN MAT x10^3(ANC) 6.71 10*3/uL 1.88-7.09 (test code = 6076980067) IMM GRAN x10^3 (test 0.05 10*3/uL 0-0.06 code = 9638118732) LYMPH x10^3 (test code 2.65 10*3/uL 1.32-3.29 = 731-0) MONO x10^3 (test code 0.83 10*3/uL 0.33-0.92 = 742-7) EOS x10^3 (test code = 0.49 10*3/uL 0.03-0.39 H 711-2) BASO x10^3 (test code 0.05 10*3/uL 0.01-0.07 = 704-7) Lab Interpretation Abnormal (test code = 18036-7) [facility]bergBAS[facility] METABOLIC [id number] 17:09:00 Test Item Value Reference Range Interpretation [...] = ALKP) Specimen comments: ccSpecimen comments: SEPSIS [id number] 17:09:00 Test Item Value Reference Range Interpretation Comments LIPASE (test code = LIP) 318 Unit/L 114-286 H Specimen comments: ccSpecimen comments: SEPSIS [id number] 17:09:00 Test Item Value Reference Range Interpretation [...] change s in troponin levelscharacter istic of SD. Specimen comments: ccSpecimen comments: SEPSIS WORKUPPROCALCITONIN (PCT) [...] = ALKP) Specimen comments: ccSpecimen comments: SEPSIS [id number] 17:03:00 Test Item Value Reference Range Interpretation Comments LIPASE (test code = LIP) 318 Unit/L 114-286 H Specimen comments: ccSpecimen comments: SEPSIS [id number] 17:03:00 Test Item Value Reference Range Interpretation [...] change s in troponin levelscharacter istic of SD. Specimen comments: ccSpecimen comments: SEPSIS WORKUPPROCALCITONIN (PCT) 2020-02-17 17:03:00 Test Item Value Reference Range Interpretation Comments PROCALCITONIN (PCT) (test code = NG/ML 0.00-0.10 PROCAL) Specimen comments: ccSpecimen comments: SEPSIS WORKUPLACTIC [id number] 17:01:00 Test Item Value Reference Range Interpretation Comments LACTIC ACID (test code = LACT) 1.4 mmol/L 0.4-2.0 N Specimen comments: ccBASIC METABOLIC [id number] 16:58:00 Test Item Value Reference Range Interpretation [...] = ALKP) Specimen comments: ccSpecimen comments: SEPSIS [id number] 16:58:00 Test Item Value Reference Range Interpretation Comments LIPASE (test code = LIP) 318 Unit/L 114-286 H Specimen comments: ccSpecimen comments: SEPSIS [id number] 16:58:00 Test Item Value Reference Range Interpretation [...] STREP GROUP A NEG SCREEN NEG STREP ANTI GEN (THROAT) (test SCREENING:Ant igen code = STREPA) screening orquidea t; suggest confirmation by culture.INTERPR ETATION OF STREP ANTIGEN R ESULTS:WHEN STREP GROUP A A NTIGEN IS NOT DETECTED, T HE NEGATIVERESULT DOES NOT RULE OUT THE IN ESENCE OF STREP GROUP A.W HEN STREP GROUP A ANTIGEN IS DETECTED, THE P OSITIVE RESULTIS SIGNIF ICANT. NEGATIVE RESULT S REFLEX A CULTURE. FORNEG ATIVE RESULTS A CULTU RE IS IN PROGRESS, RESUL T TO FOLLOW. HCG SERUM [id number] 16:55:00 Test Item Value Reference Range Interpretation Comments HCG SERUM QUAL (test code = HCGQL) NEG SCREEN NEG Specimen comments: SEPSIS WORKUP- XR CHEST 2 [id number] 16:55:00 FAX: Julia Sanz [phone] [place]: St: PRE Patient Name: JAIDEN PLATA Unit No: [id number] EXAMS: CPT CODE: [id number] XR CHEST 2 V 01114 PA and lateral views of the chest Clinical indication: Cough and fevers Location R 16 COMPARISON: None The lungs are clear. The heart, mediastinum and bony structures are unr emarkable. Bilateral breast implants are in place. Impression: Normal at 1655 Reported and signed by: Apolonia Colon MD CC: Julia CARDENAS Dictated Date/Time: 02/17/2020 (1654)Technologist: Meek Moss Transcribed Date/Time: 02/17/2020 (1654) By: [email or web address] Orig Print D/T: S: 02/17/2020 (1657) KILLIAN Crawford NAME: JAIDEN PLATA [address] [place] [address] Blvd PHYS: Julia R[place], [place] [address] : 1980 AGE: 39 SEX: F LOC: [facility] PHONE #: [phone] EXAM DATE: 02/17/2020 STATUS: PRE ER FAX #: [phone] RAD NO: DC Dt: PAGE 1 Signed ReportUA RFLX MICR CULT IF [id number] 16:51:00 Test Item Value Reference Range Interpretation [...] Sepsis-no other srcUA RFLX MICR CULT IF [id number] 16:47:00 Test Item Value Reference Range Interpretation [...] for culture: Sev. Sepsis-no other srcCBC W/AUTO [id number] 16:45:00 Test Item Value Reference Range Interpretation [...]
[2022-12-07] MEDS ORDERED: NA CHLORIDE 0.9% 1,000 ML ONE (23:56)
[2022-12-08 00:15] LABS: Urine Blood Negative (Negative); Urine Glucose Negative (Negative); Urine Protein Trace (Negative); Urine Specific Gravity 1.015 (1.005-1.030)
[2022-12-08 00:20] LABS: Absolute Lymphocytes (CBC) 1.5 K/uL (0.7-4.9); Hematocrit 36.3 % (36.0-45.0); Lymphocytes % 16.6 % (15.3-44.8); MCV 92.9 fL (80-100); MPV 7.6 fL (7.6-11.3); RBC Red Blood Cell Count 3.91 M/uL (3.86-4.86)
[2022-12-08 00:22] LABS: Urine Specific Gravity/Preg 1.015 (1.005-1.030)
[2022-12-08 00:25] LABS: Urine Bacteria <20 /HPF (<20); Urine Mucus Slight /HPF (None Seen); Urine RBC <5 /HPF (None Seen)
[2022-12-08 00:42] LABS: Albumin 2.7 g/dL (3.4-5.0); Bilirubin Total 0.5 mg/dL (0.2-1.0); Potassium 3.9 mmol/L (3.5-5.1); Protein, Total 5.6 g/dL (6.4-8.2); Troponin High Sensitivity 4.7 pg/mL (<58.9)
[2022-12-08 00:43] LABS: Magnesium 1.4 mg/dL (1.6-2.4)
[2022-12-08] MEDS ORDERED: Magnesium Sulfate 2gm IVPB 2 G/50 ML BAG IV ONE (00:56)
[2022-12-08 00:59] LABS: SARS-COV-2 RT PCR POSITIVE (NEGATIVE)
[2022-12-08] MEDS ORDERED: PROMETHAZINE INJ 25 MG/ML AMP ONE (01:50)
--- NOTE | 2022-12-08 02:40 | ER ---
Nurse's Notes [facility] Name: Gabrielle Plata Age: 42 yrs Sex: Female : 1980 Arrival Date: 12/07/2022 Time: 23:38 Bed 7 Private MD: Diagnosis: Coronavirus infection, unspecified;Hypomagnesemia;Vomiting;Diarrhea, unspecified Presentation: 12/07 23:46 Chief complaint: EMS states: pt had flu like symptoms around [place] with vomiting kd3 and diarrhea. Pt thought she was feeling better but for the past couple of days she has been feeling dizzy and nauseous. This evening her hands started to cramp and her face started to feel numb. pt was given 4 of Zofran and 12.5 of Phenergan. Coronavirus screen: Vaccine status: Patient reports being unvaccinated. Ebola Screen: No symptoms or risks identified at this time. Initial Sepsis Screen: Does the patient meet any 2 criteria? No. Patient's initial sepsis screen is negative. Does the patient have a suspected source of infection? No. Patient's initial sepsis screen is negative. Risk Assessment: Do you want to hurt yourself or someone else? Patient reports no desire to harm self or others. Onset of symptoms was December 07, 2022. 23:46 Method Of Arrival: EMS: [facility] kd3 23:46 Acuity: CATHIE 3 kd3 Triage Assessment: 23:50 General: Appears uncomfortable, Behavior is calm, cooperative. Pain: Complains of pain kd3 in face, right hand, left hand, right foot and left foot. Neuro: Level of Consciousness is awake, alert, obeys commands, Oriented to person, place, time, situation. Cardiovascular: Patient's skin is warm and dry. Respiratory: Airway is patent Trachea midline Respiratory effort is even, unlabored, Respiratory pattern is regular, symmetrical. GI: Reports diarrhea, nausea, vomiting. Historical: - Allergies: 23:50 Codeine; kd3 23:50 Sulfa (Sulfonamide Antibiotics); kd3 23:50 Demerol; kd3 23:50 cefepime; kd3 - PMHx: 23:50 Crohn's Disease; HPV; Gretta Parikh tears; MRSA; kd3 - Immunization history:: Adult Immunizations up to date, Client reports having NOT received the Covid vaccine. - Social history:: Smoking status: Patient reports the use of cigarette tobacco products. Screenin:[facility] ED Fall Risk Assessment (Adult) History of falling in the last 3 months, kd3 including since admission Yes- single mechanical fall (1 pt) Confusion or Disorientation No (0 pts) Intoxicated or Sedated No (0 pts) Impaired Gait No (0 pts) Mobility Assist Device Used No (0 pt) Altered Elimination No (0 pt) Score/Fall Risk Level 0 - 2 = Low Risk Oriented to surroundings. Abuse screen: Denies threats or abuse. Denies injuries from another. Nutritional screening: No deficits noted. Tuberculosis screening: No symptoms or risk factors identified. Assessment: 23:54 General: Appears uncomfortable, Behavior is calm, cooperative. Pain: Complains of pain kd3 in left foot and right foot and left hand and right hand and face. Neuro: Level of Consciousness is awake, alert, obeys commands, Oriented to person, place, time, situation. Cardiovascular: Capillary refill < 3 seconds in bilateral fingers Patient's skin is warm and dry. Respiratory: Airway is patent Trachea midline Respiratory effort is even, unlabored, Respiratory pattern is regular, symmetrical. GI: Reports diarrhea, nausea, vomiting. 12/08 01:19 General: Appears uncomfortable, Behavior is calm, cooperative. Neuro: Level of aa9 Consciousness is awake, alert, obeys commands, Oriented to person, place, time, situation. Respiratory: Airway is patent Respiratory effort is even, unlabored. GI: Reports nausea, notified provider. 02:42 Reassessment: No changes from previously documented assessment. Patient and/or family kd3 updated on plan of care and expected duration. Pain level reassessed. Patient is alert, oriented x 3, equal unlabored respirations, skin warm/dry/pink. Patient states feeling better. Patient states symptoms have improved. GI: Abdomen is non-distended. Vital Signs: 12/07 23:46 BP 154 / 100; Pulse 79; Resp 20; Temp 98.2(O); Pulse Ox 100% ; Weight 54.43 kg; Height kd3 5 ft. (152.40 cm); 23:54 BP 148 / 95; Pulse 75; Pulse Ox 99% on R/A; kd3 12/08 00:24 BP 145 / 86; Pulse 81; Resp 19; Pulse Ox 100% on R/A; kd3 01:00 BP 122 / 84; Pulse 78; Resp 19 S; Pulse Ox 99% on R/A; aa9 02:41 BP 100 / 64; Pulse 73; Resp 17; Pulse Ox 99% on R/A; kd3 12/07 23:46 Body Mass Index 23.44 (54.43 kg, 152.40 cm) kd3 ED Course: 12/07 23:38 Patient arrived in ED. wm 23:39 Deysi Hernandez MD is Attending Physician. sd2 23:46 Joan Steiner, SITA is Primary Nurse. kd3 23:50 Triage completed. kd3 23:50 Arm band placed on right wrist. kd3 23:53 Patient has correct armband on for positive identification. Placed in gown. Bed in low kd3 position. Call light in reach. Side rails up X2. Client placed on continuous cardiac and pulse oximetry monitoring. NIBP monitoring applied. alarm security or surveillance monitor on. 12/08 00:07 COVID-19/FLU A+B Sent. kd3 00:07 Ethanol Sent. kd3 00:07 Lipase Sent. kd3 00:15 Urine Microscopic Only Sent. kd3 02:42 No provider procedures requiring assistance completed. kd3 02:52 IV discontinued, intact, bleeding controlled, No redness/swelling at site. Pressure kd3 dressing applied. Administered Medications: 00:07 Drug: NS 0.9% 1000 ml Route: IV; Rate: 1 bolus; Site: right antecubital; kd3 00:58 Drug: Magnesium Sulfate 2 grams Route: IVPB; Infused Over: 2 hrs; Site: right forearm; aa9 01:51 Drug: Phenergan (promethazine) 12.5 mg Route: IVP; Site: right forearm; aa9 02:43 Follow up: Response: No adverse reaction; Nausea is decreased kd3 Medication: 12/07 23:53 VIS not applicable for this client. kd3 Outcome: 12/08 02:40 Discharge ordered by . sd2 02:52 Discharged to home ambulatory. kd3 02:52 Condition: stable 02:52 Discharge instructions given to patient, family, Instructed on discharge instructions, follow up and referral plans. medication usage, Demonstrated understanding of instructions, follow-up care, medications, Prescriptions given X 1. 02:57 Patient left the ED. kd3 Signatures: Cherri Dorado Kyli, RN RN kd3 Deysi Hernandez MD MD sd2 Agueda Cowan, SITA RN aa9
--- NOTE | 2022-12-08 02:40 | EDPHYS ---
Physician Documentation [facility] Name: Gabrielle Plata Age: 42 yrs Sex: Female : 1980 Arrival Date: 12/07/2022 Time: 23:38 Bed 7 Private MD: ED Physician Deysi Hernandez HPI: 12/07 23:48 This 42 yrs old Female presents to ER via Unassigned with complaints of Nausea/Vomiting.sd2 23:48 42 yo F presents via EMS with CC of n/v/d ongoing for the past 3 days. Reports prior to sd2 that was dealing with flu-like symptoms including a cough and taking Nyquill at home. Diarrhea started on and patient has been unable to keep anything down at home since then. Reports having a syncopal episode while sitting on the toilet 3 days ago and continued intermittent episodes of "seeing stars" and feeling lightheaded. Denies fever or abdominal pain. Reports muscle twitching and numbness of face as well as spasms of her bilateral hands that were noticed upon EMS's arrival. 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 Historical: - Allergies: 23:50 Codeine; kd3 23:50 Sulfa (Sulfonamide Antibiotics); kd3 23:50 Demerol; kd3 23:50 cefepime; kd3 - PMHx: 23:50 Crohn's Disease; HPV; Gretta Parikh tears; MRSA; kd3 - Immunization history:: Adult Immunizations up to date, Client reports having NOT received the Covid vaccine. - Social history:: Smoking status: Patient reports the use of cigarette tobacco products. ROS: 23:48 Constitutional: Negative for fever, chills, and weight loss, Eyes: Negative for injury, sd2 pain, redness, and discharge, Cardiovascular: Negative for chest pain, palpitations, and edema, Respiratory: Negative for shortness of breath, cough, wheezing. 23:48 : Negative for dysuria, urinary frequency, hesitancy, urgency and hematuria. MS/Extremity: Negative for injury and deformity, Positive for spasm Skin: Negative for injury, rash, and discoloration, Neuro: Negative for headache, numbness and tingling. 23:48 Abdomen/GI: Positive for nausea, vomiting, and diarrhea, Negative for abdominal pain. Exam: 23:48 Constitutional: This is a well developed, well nourished patient who is awake, alert, sd2 and in no acute distress. Head/Face: Normocephalic, atraumatic. Eyes: EOMI, normal conjunctiva bilaterally Chest/axilla: Normal chest wall appearance and motion. Nontender with no deformity. Cardiovascular: Regular rate and rhythm with a normal S1 and S2. No gallops, murmurs, or rubs. 2+ distal pulses. Respiratory: Lungs have equal breath sounds bilaterally, clear to auscultation and percussion. No rales, rhonchi or wheezes noted. No increased work of breathing, no retractions or nasal flaring. Abdomen/GI: Soft, non-tender, with normal bowel sounds. No guarding or rebound. No evidence of tenderness throughout. Skin: Warm, dry with normal turgor. Normal color with no rashes, no lesions, and no evidence of cellulitis. MS/ Extremity: Pulses equal, no cyanosis. Neurovascular intact. Full, normal range of motion. Ambulatory without difficulty. Psych: Awake, alert, with orientation to person, place and time. Behavior, mood, and affect are within normal limits. 12/08 00:42 ECG was reviewed by the Attending Physician. NSR, rate 73, no STEMI criteria, possible sd2 U waves present Vital Signs: 12/07 23:46 BP 154 / 100; Pulse 79; Resp 20; Temp 98.2(O); Pulse Ox 100% ; Weight 54.43 kg; Height kd3 5 ft. (152.40 cm); 23:54 BP 148 / 95; Pulse 75; Pulse Ox 99% on R/A; kd3 12/08 00:24 BP 145 / 86; Pulse 81; Resp 19; Pulse Ox 100% on R/A; kd3 01:00 BP 122 / 84; Pulse 78; Resp 19 S; Pulse Ox 99% on R/A; aa9 02:41 BP 100 / 64; Pulse 73; Resp 17; Pulse Ox 99% on R/A; kd3 12/07 23:46 Body Mass Index 23.44 (54.43 kg, 152.40 cm) kd3 MDM: 12/07 23:39 Patient medically screened. sd2 23:48 Differential diagnosis: Gastritis, cholecystitis, pancreatitis, SBO, diverticulitis, sd2 kidney stone, appendicitis, UTI, dehydration, electrolyte abnormality among others. Data reviewed: vital signs, nurses notes. 12/08 02:38 Data reviewed: lab test result(s), EKG. Counseling: I had a detailed discussion with sd2 the patient and/or guardian regarding: the historical points, exam findings, and any diagnostic results supporting the discharge/admit diagnosis, lab results, the need for outpatient follow up, to return to the emergency department if symptoms worsen or persist or if there are any questions or concerns that arise at home. ED course: Labs reviewed. COVID positive with hypomagnesemia replaced IV in the ER. Pt feeling improved after treatment and tolerating PO with benign abdominal exam. Pt advised of continued supportive care for symptoms and need for outpatient follow up to resolution. She will continue to orally hydrate at home. Verbalizes understanding of discharge plan and strict return precautions. . 12/07 23:48 Order name: CBC with Diff; Complete Time: 00:42 sd2 12/07 23:48 Order name: CMP; Complete Time: 00:44 sd2 12/07 23:48 Order name: Magnesium; Complete Time: 00:44 sd2 12/07 23:48 Order name: Troponin High Sensitivity; Complete Time: 00:44 sd2 12/07 23:48 Order name: Urine Microscopic Only; Complete Time: 00:42 sd12/07 23:48 Order name: Lipase; Complete Time: 00:44 sd2 12/07 23:48 Order name: EKG - Nurse/Tech; Complete Time: 00:03 sd2 12/07 23:48 Order name: Ethanol; Complete Time: 00:42 sd2 12/07 23:48 Order name: COVID-19/FLU A+B; Complete Time: 01:00 sd2 12/08 00:15 Order name: Urine Dipstick-Ancillary; Complete Time: 00:42 EDMO 12/08 00:18 Order name: Urine --Ancillary (enter results); Complete Time: 00:42 12/07 23:48 Order name: Urine Dipstick-Ancillary (obtain specimen); Complete Time: 00:15 sd2 12/07 23:48 Order name: Urine Test (obtain specimen); Complete Time: 00:15 sd2 12/08 01:01 Order name: PO challenge; Complete Time: 01:51 sd2 Administered Medications: 00:07 Drug: NS 0.9% 1000 ml Route: IV; Rate: 1 bolus; Site: right antecubital; kd3 00:58 Drug: Magnesium Sulfate 2 grams Route: IVPB; Infused Over: 2 hrs; Site: right forearm; aa9 01:51 Drug: Phenergan (promethazine) 12.5 mg Route: IVP; Site: right forearm; aa9 02:43 Follow up: Response: No adverse reaction; Nausea is decreased kd3 Disposition Summary: 12/08/22 02:40 Discharge Ordered Location: Home sd2 Problem: new sd2 Symptoms: have improved sd2 Condition: Stable sd2 Diagnosis - Coronavirus infection, unspecified sd2 - Hypomagnesemia sd2 - Vomiting sd2 - Diarrhea, unspecified sd2 Followup: sd2 - With: Private Physician - When: 2 - 3 days - Reason: Recheck today's complaints, Continuance of care, Re-evaluation by your physician Discharge Instructions: - Discharge Summary Sheet sd2 - Food Choices to Help Relieve Diarrhea, Adult sd2 - Hypomagnesemia sd2 - COVID-19 sd2 - 10 Things You Can Do to Manage Your COVID-19 Symptoms at Home - [facility] sd2 Forms: - Medication Reconciliation Form sd2 - Thank You Letter sd2 - Antibiotic Education sd2 - Prescription Opioid Use sd2 Prescriptions: - Zofran 4 mg Oral Tablet - take 1 tablet by ORAL route every 6 hours As needed; 15 tablet; Refills: 0, sd2 Product Selection Permitted Signatures: Dispatcher [facility] Joan Dean RN RN kd3 Deysi Hernandez MD MD sd2 Agueda Cowan RN RN aa9 Corrections: (The following items were deleted from the chart) 12/07 23:51 23:48 42 yo F presents via EMS with CC of n/v/d ongoing for the past 3 days. Reports sd2 prior to that was dealing with flu-like symptoms including a cough and taking Nyquill at home. Diarrhea started on and patient has been unable to keep anything down at home since then. Reports having a syncopal episode while sitting on the toilet 3 days ago and continued intermittent episodes of "seeing stars" and feeling lightheaded. Denies fever or abdominal pain. Reports muscle twitching and numbness of face as well as spasms of her bilateral hands that were noticed upon EMS's arrival. . sd2 12/08 02:41 02:38 EKG - Nurse/Tech ordered. sd2 sd2
[2022-12-08 03:37] VITALS: TEMP 98.2
[2022-12-08 03:40] VITALS: O2SAT 99
[2022-12-08 03:42] VITALS: BP 100/64
--- NOTE | 2022-12-10 16:33 | EKG ---
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
== END 2022-12-08 02:57 | disposition home or self-care (01) ==
LOC: ER 23:34
DX: U07.1 COVID-19 (principal); E83.42 Hypomagnesemia; R19.7 Diarrhea, unspecified; Z72.0 Tobacco use; Z88.2 Allergy status to sulfonamides; Z88.5 Allergy status to narcotic agent; Z88.8 Allergy status to other drugs, medicaments and biological substances
CPT/HCPCS: 0240U; 36415; 80053; 80320; 81003; 81015; 81025; 83690; 83735; 84484; 85025; 93005; 96374; 96375; 99284; J2550; J3475; J7030

== ENCOUNTER 2023-04-20 17:24 | Emergency (ER) | payer SELFPAY ==
--- OUTSIDE RECORDS SUMMARY | 2023-04-20 17:32 | XMS REPORT | Continuity of Care Document ---
:1980 Author Organization [facility] t Address [address] [place] [address] Care Team Providers Name Role Phone No, Pcp [facility] Primary Care Physician Unavailable YONAS FITZGERALD Attending Clinician Unavailable Yonas Fitzgerald MD Attending Clinician Doctor Unassigned, [place] Attending Clinician Unavailable Ashely Myrick RN Attending Clinician Unavailable Antonio Monroe MD Attending Clinician [phone] Mojgan PENN Attending Clinician Unavailable Mojgan Pires Attending Clinician CARLOS LOVE Attending Clinician Unavailable JOSÉ LUIS GONZALES Attending Clinician Unavailable Brit BEASLEY, Yonas Calero Attending Clinician Telma BEASLEY, Mynor Oconnell Attending Clinician MYNOR HOLLIS Attending Clinician Unavailable Pam NURSES AIDE, Dalia Robbins Attending Clinician DALIA OROZCO Attending Clinician Unavailable Dhruv Briggs DO Attending Clinician Jose Guadalupe BUCKNER, Kaylah Lau Attending Clinician Unavailable Ashly NURSES AIDE, Andrew Attending Clinician ELO RIVERA Attending Clinician Unavailable Nicole BEASLEY, Elo Oconnell Attending Clinician DAVID CAMILO Attending Clinician Unavailable CHRIS FOY Attending Clinician Unavailable Al BEASLEY, Chris Attending Clinician Shnu Benedict MD Attending Clinician Sanjay Lind MD Attending Clinician SANJAY LIND Attending Clinician Unavailable Physician, No Primary or Family Admitting Clinician UnavailYONAS Sebastian Admitting Clinician Unavailable Yonas Fitzgerald MD Admitting Clinician Mojgan PENN Admitting Clinician Unavailable CARLOS LOVE Admitting Clinician Unavailable Sanjay Lind MD Admitting Clinician SANJAY LIND Admitting Clinician Unavailable Payers Payer Name Policy Type Policy Number Effective Date Expiration Date S neena HEALTHY MAINE [id number] 2020 WOMEN 00:00:00 MATTHEW [id number] 2020 2020 00:00:00 00:00:00 AGENCY GENERIC VC [id number] 2020 2020 00:00:00 00:00:00 Problems Condition Condition Condition Status Onset Resolution Last Treating Co mments Source Name Details Category Date Date Treatment Clinician Date Displaced Displaced Disease Active Overview: Univers fracture fracture 03-25 Formattin ity of of neck of of neck of 00:00: g of this [place] fifth fifth 00 note Medical metacarpal metacarpal might be Branch bone, bone, different right right from the hand, hand, original. 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 HPV+ on 2019 pap smear, patient needs repeat pap smear in 2020. Cervical Cervical Disease Active Overview: Un gracy high risk high risk 08-02 Formattin i ty of human human 00:00: g of this [place] papillomav papillomav 00 note Me dical irus (HPV) irus (HPV) might be Branch DNA test DNA test different positive positive from the original. Awaiting pap smear results History of History of Disease Active U [...] Univers 5-07 ity of 00:00: [place] 00 Medical Branch Chest pain Chest pain Disease Active U nivers 4-21 ity of 00:00: [place] 00 [facility] Branch Screening Screening Disease Active Uni vers examinatio examinatio 2-05 it y of n for STD n for STD 00:[place] ([place]ually (sexually 00 [facility] transmitte transmitte Br anch d disease) d disease) Premature Premature Disease Active 2016-12 Uni vers labor labor 0-24 ity of 00:00: [place] Medical Branch 34 weeks 34 weeks Disease Active 2016-12 Unive rs gestation gestation 0-14 ity of of of 00:00: [place] 00 [facility] Branch Disease Active 2016-12 Univers labor labor 0-14 ity of 00:00: [place] 00 Medical Branch Crohn Crohn Disease Active Overview: Univer s disease disease 12-02 Formattin ity o f 00:00: g of this [place] 00 note Medical might be Branch different from the original. involving small and large intesting , biopsy confirmed . Gets colonosco py Q 6-12 months. 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 10 spontaneo us abortions prior to 10 weeks, D&C in 2005 Allergies, Adverse Reactions, Alerts Allergy Allergy Status Severity Reaction(s) Onset Inactive Treating Comm ents Source Name Type Date Date Clinician GRISEOFU DRUG Active Dizziness Unive rs LVIN INGREDI 4-25 ity of ULTRAMIC 00:00: [place] ROSIZE 00 Medical Branch KETOROLA DRUG Active N/V Univers C INGREDI 4-25 ity of 00:00: [place] 00 Medical Branch Griseofu Propensi Active Swelling Univ ers lvin ty to 4-25 ity of Ultramic adverse 00:00: [place] rosize reaction 00 Medical s Branch Ketorola Propensi Active Nausea Severe Univer s c ty to and/or 4-25 headache ity of adverse Vomiting 00:00: [place] reaction 00 Medical s Branch CEFEPIME DRUG Active Anaphylaxis 2022-0 Uni vers INGREDI 4-15 ity of 00:00: [place] 00 Medical Branch Cefepime Propensi Active Anaphylaxis 2022-0 U nivers ty to 4-15 ity of adverse 00:00: [place] reaction 00 Medical s Branch Cefepime Propensi Active Itching, 2020-[address] [facility] [...] Active 2020-12 [facility] NE 2-16 00:00: 00 CEFEPIME DRUG Active Med Anaphylaxis 2020-12 Uni vers INGREDI 2-16 ity of 00:00: [place] 00 Medical Branch KETOROLA Allergy Active 2020-12 [facility] C 2-16 00:00: 00 CEFEPIME Allergy Active Med Itching 2020-12 [facility] 2-16 00:00: 00 SULFA Allergy Active 2020-12 [facility] (SULFONA 2-16 MIDE 00:00: ANTIBIOT 00 ICS) CODEINE Allergy Active High Sob 2020-12 [facility] 216 00:00: 00 meperidi DA Active MO 2020-0 [facility] ne HCl 3-18 [place] 00:00: [facility] 00 [facility] Sulfa DA Active MO 2020-0 [facility] (Sulfona 3-18 [place] mide 00:00: [facility] Antibiot 00 l ics) Medical [place] codeine DA Active MO 2020-0 [facility] 3-18 [place] 00:00: [facility] 00 [facility] meperidi DA Active MO vomiting 2020-0 [facility] ne HCl chest 3-18 [place] tightness 00:00: [facility] 00 [facility] Sulfa DA Active MO rash chest 2020-0 [facility] (Sulfona tightness 3-18 Conro e mide 00:00: Region[facility] Antibiot 00 l ics) [facility] codeine DA Active MO rash chest 2020-0 [facility] tightness 3-18 [place] 00:00: [facility] 00 [facility] Marijuan Propensi Active Anaphylaxis 2018-0 U nivers a/Cannab ty to 2-05 ity of inoid adverse 00:00: [place] reaction 00 Medical s Branch MARIJUAN Drug Active High Anaphylaxis 2018-0 Uni vers A/CANNAB Class 2-05 ity of INOID 00:00: [place] 00 Medical Branch Marijuan Propensi Active Anaphylaxis 2018-0 U nivers a/Cannab ty to 2-05 ity of inoid adverse 00:00: [place] reaction 00 Medical s Branch Sulfa Propensi Active Rash 2017-0 Univers (Sulfona ty to 8-30 ity of mide adverse 00:00: [place] Antibiot reaction 00 Medica l ics) s Branch SULFA Drug Active High Rash Univers (SULFONA Class 8-30 ity of MIDE 00:00: [place] ANTIBIOT 00 Medical ICS) Branch Sulfa Propensi Active Rash Univers (Sulfona ty to 8-30 ity of mide adverse 00:00: [place] Antibiot reaction 00 Medica l ics) s Branch Codeine Propensi Active Shortness of 2015-12 U nivers ty to Breath 0-25 ity of adverse 00:00: [place] reaction 00 Medical s Branch Meperidi Propensi Active Rash 2015-12 Univer s ne Hcl ty to 0-25 ity of adverse 00:00: [place] reaction 00 Medical s Branch Tramadol Propensi Active Nausea 2015-12 Univer s ty to and/or 0-25 ity of adverse Vomiting 00:00: [place] reaction 00 Medical s Branch CODEINE DRUG Active High SOB 2015-12 Univers INGREDI 0-25 ity of 00:00: [place] 00 Medical Branch MEPERIDI DRUG Active Rash 2015-12 Univers NE HCL INGREDI 0-25 ity of 00:00: [place] 00 Medical Branch TRAMADOL DRUG Active N/V 2015-12 Univers INGREDI 0-25 ity of 00:00: [place] 00 Medical Branch Codeine Drug Active Nausea 2015-12 Univers Allergy and/or 0-25 ity of Vomiting 00:00: [place] 00 Medical Branch Sulfa DA Active MO rash chest [facility] (Sulfona tightness 8-26 Conro e mide 00:00: [facility] Antibiot 00 l ics) [facility] codeine DA Active MO rash chest [facility] tightness 8-26 [place] 00:00: [facility] 00 [facility] meperidi DA Active MO [facility] ne HCl 8-26 [place] 00:00: [facility] 00 [facility] Sulfa DA Active MO [facility] (Sulfona 8-26 [place] mide 00:00: [facility] Antibiot 00 l ics) Medical Center codeine DA Active MO [facility] 8-26 [place] 00:00: [facility] meperidi DA Active MO vomiting [facility] ne HCl chest 8-26 [place] tightness 00:00: [facility] 00 [facility] Center Social History Social Habit Start Date Stop Date Quantity Comments Source History of tobacco Cigarette Smoker [facility] use [facility] Alcohol intake 2023-04-08 2023-04-08 Current drinker Unive rsity of 00:00:00 00:00:00 of alcohol [facility] (finding) Branch Exposure to 2023-03-28 2023-04-07 Not sure University SARS-CoV-2 (event) 00:00:00 14:40:00 [facility] Tobacco use and 2023-03-25 2023-03-25 Smokeless tobacco Un iversity of exposure 00:00:00 00:00:00 non-user [facility] Cigarettes smoked 2023-03-25 2023-03-25 Univers ity of current (pack per 00:00:00 00:00:00 [facility]) - Reported [place] Tobacco Comment 2023-03-25 2023-03-25 Occasional Smoker Un iversity of 00:00:00 00:00:00 [facility] Branch History SDIL 2020-07-26 2020-07-26 2 University o f Alcohol Frequency 00:00:00 00:00:00 [facility] Branch History SDOH 2020-07-26 2020-07-26 2 University o f Alcohol Std Drinks 00:00:00 00:00:00 [facility] Branch History [facility] 2020-07-26 2020-07-26 99 University o f Alcohol Binge 00:00:00 00:00:00 [facility] Alcohol Comment 2018-01-03 2018-01-03 Social Drinker Unive rsity of 00:00:00 00:00:00 [facility] Sex Assigned At [address] [facility] 00:00:00 00:00:00 Medical Center Smoking Status Start Date Stop Date Source Smokes tobacco daily 2023-03-25 00:00:00 Univers ity of [facility] Current some day smoker 2020-06-12 00:00:00 Univ ersity of [facility] Medications Ordered Filled Start Stop Current Ordering Indication Dosage Frequency Signature Comments Components Source Medication Medication Date Date Medication? Clinician (SIG) Name Name ibuprofen 2022- Yes [id number] 600mg Take 1 Univers 600 mg 04-08 tablet by ity of tablet 00:00: 04:59 mouth 3 [place] 00 :00 (three) Medical times Branch daily with meals as needed for Pain (scale 4-6) or Pain (scale 1-3) for up to 90 days. ibuprofen 2022- Yes [id number] 600mg Take 1 Univers 600 mg 5-08 08-07 tablet by ity of tablet 00:00: 04:59 mouth 3 [place] 00 :00 (three) Medical times Branch daily with meals as needed for Pain (scale 4-6) or Pain (scale 1-3) for up to 90 days. ibuprofen 2022- Yes [id number] 600mg Take 1 Univers 600 mg 5-08 08-07 tablet by ity of tablet 00:00: 04:59 mouth 3 [place] 00 :00 (three) Medical times Branch daily with meals as needed for Pain (scale 4-6) or Pain (scale 1-3) for up to 90 days. ibuprofen 2022- Yes [id number] 600mg Take 1 Univers 600 mg 5-08 08-07 tablet by ity of tablet 00:00: 04:59 mouth 3 [place] 00 :00 (three) Medical times Branch daily with meals as needed for Pain (scale 4-6) or Pain (scale 1-3) for up to 90 days. ibuprofen 2022- Yes [id number] 600mg Take 1 Univers 600 mg 5-08 08-07 tablet by ity of tablet 00:00: 04:59 mouth 3 [place] 00 :00 (three) Medical times Branch daily with meals as needed for Pain (scale 4-6) or Pain (scale 1-3) for up to 90 days. HYDROcodone 2022- Yes [id number] 1{tbl} Take 1 U nivers -acetaminop 5-08 05-16 tablet by it y of hen (NORCO) 00:00: 04:59 mouth [place] 5-325 mg 00 :00 every 6 Medical tablet (six) Branch hours as needed for Pain (scale 7-10) for up to 7 days. Indication s: acute pain HYDROcodone 2022- Yes [id number] 1{tbl} Take 1 U nivers -acetaminop 5-08 05-16 tablet by it y of hen (NORCO) 00:00: 04:59 mouth [place] 5-325 mg 00 :00 every 6 Medical tablet (six) Branch hours as needed for Pain (scale 7-10) for up to 7 days. Indication s: acute pain HYDROcodone 2022-2022- Yes 4647 1{tbl} Take 1 U nivers -acetaminop 5-08 05-16 tablet by it y of hen (NORCO) 00:00: 04:59 mouth [place] 5-325 mg 00 :00 every 6 Medical tablet (six) Branch hours as needed for Pain (scale 7-10) for up to 7 days. Indication s: acute pain HYDROcodone 2022-0 2022- Yes 4647 1{tbl} Take 1 U nivers -acetaminop 5-08 05-16 tablet by it y of hen (NORCO) 00:00: 04:59 mouth [place] 5-325 mg 00 :00 every 6 Medical tablet (six) Branch hours as needed for Pain (scale 7-10) for up to 7 days. Indication s: acute pain HYDROcodone 2022-0 2022- Yes 4647 1{tbl} Take 1 U nivers -acetaminop 5-08 05-16 tablet by it y of hen ([employer]) 00:00: 04:59 mouth [place] 5-325 mg 00 :00 every 6 Medical tablet (six) Branch hours as needed for Pain (scale 7-10) for up to 7 days. Indication s: acute pain lactated 2022-0 Yes 1000mL at 75 Univer s ringers IV 4-26 mL/hr, ity of infusion 18:00: 1,000 mL, [place] 1,000 mL 00 IV Medical Infusion, Branch CONTINUOUS , Starting on Sat03/27/23 at 1300, Until Discontinu ed, Routine, PACU lactated 2022-0 2022- No 1000mL at 75 Unive rs ringers IV 4-26 04-26 mL/hr, ity of infusion 18:00: 20:49 1,000 mL, [place] as 1,000 mL 00 :01 IV Medical Infusion, Branch CONTINUOUS , Starting on Sat03/27/23 at 1300, Until Sat03/27/23 at 1549, Routine, PACU FENTanyl PF 2022-0 Yes 25ug 25 mcg, Uni vers (SUBLIMAZE 4-26 Slow IV ity of (PF)) 17:55: Push, [place] injection 00 Q5MIN PRN, Medi dorothy 25 mcg 4 doses, Branch Starting on Sat03/27/23 at 1255, Until Discontinu ed, Routine, Pain (scale 7-10), PACU ondansetron Yes 4mg 4 mg, Slow Univers (ZOFRAN 03-27 IV Push, ity of (PF)) 17:55: PRN, 1 [place] injection 4 00 dose, Medical mg Starting Branch on Sat03/27/23 at 1255, Until Discontinu ed, Routine, Nausea and Vomiting (N/V), PACU FENTanyl PF 2022- No 25ug 25 mcg, Un gracy (SUBLIMAZE 03-27 Slow IV ity o f (PF)) 17:55: 20:49 Push, [place] injection 00 :01 Q5MIN PRN, Medi dorothy 25 mcg 4 doses, Branch Starting on Sat03/27/23 at 1255, Until Sat03/27/23 at 1549, Routine, Pain (scale 7-10), PACU ondansetron 2022- No 4mg 4 mg, Slow Univers (ZOFRAN 03-27 IV Push, ity of (PF)) 17:55: 20:49 PRN, 1 [place] injection 4 00 :01 dose, Medical mg Starting Branch on Sat03/27/23 at 1255, Until Sat03/27/23 at 1549, Routine, Nausea and Vomiting (N/V), PACU sugammadex 2022- No IV Push, Un gracy (BRIDION) 03-27 ONCE INTRA ity of injection 17:40: 17:53 PROCEDURE, [place] 00 :36 Starting Medical on Sat Branch 03/27/23 at 1240, Until Sat03/27/23 at 1253, Routine, Intra-op ondansetron 2022- No Slow IV Un gracy (ZOFRAN 03-27 Push, ONCE ity o f (PF)) 16:43: 17:53 INTRA [place] injection 00 :36 PROCEDURE, Medi dorothy Starting Branch on Sat03/27/23 at 1143, Until Sat03/27/23 at 1253, Routine, Intra-op acetaminoph 2022- No IV Unive rs en ADULT 03-27 Infusion, ity o f (OFIRMEV) 16:32: 17:53 Administer [place] injection 00 :36 over 15 Medical Minutes, Branch ONCE INTRA PROCEDURE, Starting on Sat03/27/23 at 1132, Until Sat03/27/23 at 1253, Routine, Intra-op dexamethaso 2022- No IV Push, U nivers ne 03-27 ONCE INTRA ity of (DECADRON 16:27: 17:53 PROCEDURE, [place] PHOSPHATE) 00 :36 Starting Medic al injection on Sat Branch 03/27/23 at 1127, Until 03/27/23 at 1253, Routine, Intra-op clindamycin 2022- No IV Unive rs in 5 % 03-27 Piggyback, ity of dextrose 16:27: 17:53 [place]CE [place]TRA [place] (CLEOCIN) 00 :36 PROCEDURE, Medi dorothy 900 mg/50 Starting Branch mL IV on Sat piggyback 03/27/23 at RTU 1127, Until Sat03/27/23 at 1253, Administer over 30 Minutes, Intra-op FENTanyl PF 2022- No Slow IV Un gracy (SUBLIMAZE 03-27 Push, ONCE it y of (PF)) 16:15: 17:53 INTRA [place] injection 00 :36 PROCEDURE, Medi dorothy Starting Branch on Sat03/27/23 at 1115, Until Sat03/27/23 at 1253, Routine, Intra-op lactated 2022- No IV Univers ringers IV 03-27 Infusion, ity of infusion 16:15: 17:53 CONTINUOUS [place] 00 :36 PRN, Medical Starting Branch on Sat03/27/23 at 1115, Until Sat03/27/23 at 1253, Routine, Intra-op lidocaine 2022- No Slow IV Univ ers 1% 03-27 Push, ONCE ity of (XYLOCAINE) 16:15: 17:53 INTRA [place] 100 mg/10 00 :36 PROCEDURE, Medi dorothy mL (1 %) Starting Branch injection on 03/27/23 at 1115, Until Sat03/27/23 at 1253, Routine, Intra-op rocuronium 2022- No IV Push, Un gracy (ZEMURON) 03-27 ONCE INTRA ity of injection 16:15: 17:53 PROCEDURE, [place] 00 :36 Starting Medical on Sat Branch 03/27/23 at 1115, Until Sat03/27/23 at 1253, Routine, Intra-op propofoL IV 2022- No Slow IV Un gracy infusion 03-27 Push, ONCE ity of 16:15: 17:53 INTRA [place] 00 :36 PROCEDURE, Medical Starting Branch on Sat03/27/23 at 1115, Until Sat03/27/23 at 1253, Routine, Intra-op midazolam 2022- No IV Push, Uni vers (VERSED) 03-27 ONCE INTRA ity of injection 15:57: 17:53 PROCEDURE, [place] 00 :36 Starting Medical on Sat Branch 03/27/23 at 1057, Until Sat03/27/23 at 1253, Routine, Intra-op bupivacaine 2022- No Infiltrati Univers (preserv 03-27 on, ONCE ity of free) 0.5% 15:36: 17:53 INTRA [place] (SENSORCAIN 00 :36 PROCEDURE, Me dical E MPF) 0.5 Starting Branc h % (5 mg/mL) on Wed injection 03/27/23 at 1036, Until Discontinu ed, Routine, Intra-op lactated 2022- No 1000mL at 42 Unive rs ringers IV 03-27 mL/hr, ity of infusion 14:30: 15:01 1,000 mL, [place] 1,000 mL 00 :00 IV Medical Infusion, Branch ONCE, 1 dose, On Sat03/27/23 at 0930, Routine, DSU Pre-op lactated 2022- No 1000mL at 42 Unive rs ringers IV 03-27 mL/hr, ity of infusion 14:30: 15:01 1,000 mL, [place] 1,000 mL 00 :00 IV Medical Infusion, Branch ONCE, 1 dose, On Sat03/27/23 at 0930, Routine, DSU Pre-op scopolamine 2022- No 1.5mg 1.5 mg, U nivers transdermal 03-27 Topical, ity of (TRANSDERM- 14:23: 17:52 Administer [place] SCOP) patch 26 :58 over 72 Medic al 1.5 mg Hours, Branch Q72H, First dose on Sat03/27/23 at 0930, Until Discontinu ed, Routine, DSU Pre-op scopolamine 2022- No 1.5mg 1.5 mg, U nivers transdermal 03-27-26 Topical, ity of (TRANSDERM- 14:23: 17:52 Administer [place] SCOP) patch 26 :58 over 72 Medic al 1.5 mg Hours, Branch Q72H, First dose on Sat03/27/23 at 0930, Until Discontinu ed, Routine, DSU Pre-op HYDROcodone 2022- Yes [id number] 1{tbl} Take 1 U nivers -acetaminop 4-26 05-04 tablet by it y of hen 5-325 00:00: 04:59 mouth [place] mg tablet 00 :00 every 6 Medical (six) Branch hours as needed for Pain (scale 4-6) or Pain (scale 7-10) for up to 7 days. Indication s: acute pain HYDROcodone 2022- Yes 4647 1{tbl} Take 1 U nivers -acetaminop 4-26 05-04 tablet by it y of hen 5-325 00:00: 04:59 mouth [place] mg tablet 00 :00 every 6 Medical (six) Branch hours as needed for Pain (scale 4-6) or Pain (scale 7-10) for up to 7 days. Indication s: acute pain HYDROcodone 2022- Yes 4647 1{tbl} Take 1 U nivers -acetaminop 4-24 05-02 tablet by it y of hen (NORCO) 00:00: 04:59 mouth 2 [place] 5-325 mg 00 :00 (two) Medical tablet times Branch daily as needed for Pain (scale 7-10) for up to 7 days. Indication s: acute pain HYDROcodone 2022- Yes 4647 1{tbl} Take 1 U nivers -acetaminop 4-24 05-02 tablet by it y of hen (NORCO) 00:00: 04:59 mouth 2 [place] 5-325 mg 00 :00 (two) Medical tablet times Branch daily as needed for Pain (scale 7-10) for up to 7 days. Indication s: acute pain HYDROcodone 2022-0 2022- Yes 4647 1{tbl} Take 1 U nivers -acetaminop 4-24 05-02 tablet by it y of hen (Baru ExchangeCO) 00:00: 04:59 mouth 2 [place] 5-325 mg 00 :00 (two) Medical tablet times Branch daily as needed for Pain (scale 7-10) for up to 7 days. Indication s: acute pain HYDROcodone 2022-0 2022- Yes 4647 1{tbl} Take 1 U nivers -acetaminop 4-24 05-02 tablet by it y of hen (Baru ExchangeCO) 00:00: 04:59 mouth 2 [place] 5-325 mg 00 :00 (two) Medical tablet times Branch daily as needed for Pain (scale 7-10) for up to 7 days. Indication s: acute pain HYDROcodone 2022-0 2022- Yes 4647 1{tbl} Take 1 U nivers -acetaminop 4-24 05-02 tablet by it y of hen ([employer]) 00:00: 04:59 mouth 2 [place] 5-325 mg 00 :00 (two) Medical tablet times Branch daily as needed for Pain (scale 7-10) for up to 7 days. Indication s: acute pain HYDROcodone 2022-0 2022- Yes 4647 1{tbl} Take 1 U nivers -acetaminop 4-24 05-02 tablet by it y of hen ([employer]) 00:00: 04:59 mouth 2 [place] 5-325 mg 00 :00 (two) Medical tablet times Branch daily as needed for Pain (scale 7-10) for up to 7 days. Indication s: acute pain HYDROcodone 2022-0 2022- Yes 4647 1{tbl} Take 1 U nivers -acetaminop 4-24 05-02 tablet by it y of hen (Baru [employer]) 00:00: 04:59 mouth 2 [place] 5-325 mg 00 :00 (two) Medical tablet times Branch daily as needed for Pain (scale 7-10) for up to 7 days. Indication s: acute pain HYDROcodone 2022-0 2022- Yes 4647 1{tbl} Take 1 U nivers -acetaminop 4-24 05-02 tablet by it y of hen ([employer]) 00:00: 04:59 mouth 2 [place] 5-325 mg 00 :00 (two) Medical tablet times Branch daily as needed for Pain (scale 7-10) for up to 7 days. Indication s: acute pain HYDROcodone 2022-0 2022- Yes 4647 1{tbl} Take 1 U nivers -acetaminop 4-24 05-02 tablet by it y of hen ([employer]) 00:00: 04:59 mouth 2 [place] 5-325 mg 00 :00 (two) Medical tablet times Branch daily as needed for Pain (scale 7-10) for up to 7 days. Indication s: acute pain HYDROcodone 2022-0 2022- Yes 4647 1{tbl} Take 1 U nivers -acetaminop 4-24 05-02 tablet by it y of hen ([employer]Square) 00:00: 04:59 mouth 2 [place] 5-325 mg 00 :00 (two) Medical tablet times Branch daily as needed for Pain (scale 7-10) for up to 7 days. Indication s: acute pain HYDROcodone 2022-0 2022- Yes 4647 1{tbl} Take 1 U nivers -acetaminop 4-24 05-02 tablet by it y of hen ([employer]) 00:00: 04:59 mouth 2 [place] 5-325 mg 00 :00 (two) Medical tablet times Branch daily as needed for Pain (scale 7-10) for up to 7 days. Indication s: acute pain HYDROcodone 2022-0 2022- Yes 4647 1{tbl} Take 1 U nivers -acetaminop 4-24 05-02 tablet by it y of hen ([employer]) 00:00: 04:59 mouth 2 [place] 5-325 mg 00 :00 (two) Medical tablet times Branch daily as needed for Pain (scale 7-10) for up to 7 days. Indication s: acute pain HYDROcodone 2022-2022- No 4647 1{tbl} Take 1 U nivers -acetaminop 4-24 05-02 tablet by it y of hen ([employer]) 00:00: 04:59 mouth 2 [place] 5-325 mg 00 :00 (two) Medical tablet times Branch daily as needed for Pain (scale 7-10) for up to 7 days. Indication s: acute pain ibuprofen 2022-0 Yes TAKE ONE Univ ers 600 mg 4-18 (1) ity of tablet 00:00: TABLET(S) [place] 00 BY MOUTH Medical EVERY Branch EIGHT HOURS WITH FOOD NEEDED FOR PAIN. cyclobenzap 2022-0 Yes TAKE ONE Un gracy rine 10 mg 4-18 (1) ity of tablet 00:00: TABLET(S) [place] 00 BY MOUTH Medical EVERY Branch EIGHT HOURS NEEDED. cyclobenzap 3-0 Yes TAKE ONE Un gracy rine 10 mg 4-18 (1) ity of tablet 00:00: TABLET(S) [place] 00 BY MOUTH Medical EVERY Branch EIGHT HOURS NEEDED. cyclobenzap 3-0 Yes TAKE ONE Un gracy rine 10 mg 4-18 (1) ity of tablet 00:00: TABLET(S) [place] 00 BY MOUTH Medical EVERY Branch EIGHT HOURS NEEDED. cyclobenzap 3-0 Yes TAKE ONE Un gracy rine 10 mg 4-18 (1) ity of tablet 00:00: TABLET(S) [place] 00 BY MOUTH Medical EVERY Branch EIGHT HOURS NEEDED. cyclobenzap 3-0 Yes TAKE ONE Un gracy rine 10 mg 4-18 (1) ity of tablet 00:00: TABLET(S) [place] 00 BY MOUTH Medical EVERY Branch EIGHT HOURS NEEDED. cyclobenzap 3-0 Yes TAKE ONE Un gracy rine 10 mg 4-18 (1) ity of tablet 00:00: TABLET(S) [place] 00 BY MOUTH Medical EVERY Branch EIGHT HOURS NEEDED. cyclobenzap 3-0 Yes TAKE ONE Un gracy rine 10 mg 4-18 (1) ity of tablet 00:00: TABLET(S) [place] 00 BY MOUTH Medical EVERY Branch EIGHT HOURS NEEDED. cyclobenzap 2023-0 Yes TAKE ONE Un gracy rine 10 mg 4-18 (1) ity of tablet 00:00: TABLET(S) [place] 00 BY MOUTH Medical EVERY Branch EIGHT HOURS NEEDED. cyclobenzap 2023-0 Yes TAKE ONE Un gracy rine 10 mg 4-18 (1) ity of tablet 00:00: TABLET(S) [place] 00 BY MOUTH Medical EVERY Branch EIGHT HOURS NEEDED. cyclobenzap 2023-0 Yes TAKE ONE Un gracy rine 10 mg 4-18 (1) ity of tablet 00:00: TABLET(S) [place] 00 BY MOUTH Medical EVERY Branch EIGHT HOURS NEEDED. ibuprofen 2022-0 2022- No TAKE ONE Uni vers 600 mg 03-19 (1) ity of tablet 00:00: 00:00 TABLET(S) [place] 00 :00 BY MOUTH Medical EVERY Branch EIGHT HOURS WITH FOOD NEEDED FOR PAIN. ibuprofen 2022-0 2022- No TAKE ONE Uni vers 600 mg 03-19 (1) ity of tablet 00:00: 00:00 TABLET(S) [place] 00 :00 BY MOUTH Medical EVERY Branch EIGHT HOURS WITH FOOD NEEDED FOR PAIN. ibuprofen 2022-0 2022- No TAKE ONE Uni vers 600 mg 03-19 (1) ity of tablet 00:00: 00:00 TABLET(S) [place] 00 :00 BY MOUTH Medical EVERY Branch EIGHT HOURS WITH FOOD NEEDED FOR PAIN. HYDROcodone 2022- No 1{tbl} 1 tablet, Univers -acetaminop 03-16 Oral, ity of hen (NORCO 16:15: 15:34 ONCE, 1 [place] 5) 5-325 mg 00 :00 dose, On Medi dorothy tablet 1 Sat Branch tablet 03/16/23 at 1115, MATTHEW proMETHazin 2022-2022- No 25mg 25 mg, Uni vers e 03-16-15 Intramuscu ity of (PHENERGAN) 15:15: 15:33 lar, ONCE, [place] injection 00 :00 1 dose, On Medi dorothy 25 mg Sat Branch 03/16/23 at 1015, MATTHEW tiZANidine 2022-0 Yes [id number] 4mg Take 1 [facility] 4 mg tablet 4-15 tablet by ity of 00:00: mouth [place] [address] every 6 Medical (six) Branch hours as needed for Pain (scale 4-6) for up to 20 doses. diclofenac 2022-0 Yes [id number] 50mg Take 1 [facility] 50 mg 4-15 tablet by ity of tablet 00:00: mouth in [place] 00 the Medical morning Branch and 1 tablet in the evening. tiZANidine 2022-0 Yes [id number] 4mg Take 1 [facility] 4 mg tablet 4-15 tablet by ity of 00:00: mouth [place] [address] every 6 Medical (six) Branch hours as needed for Pain (scale 4-6) for up to 20 doses. diclofenac 2023-0 Yes [id number] 50mg Take 1 [facility] 50 mg 4-15 tablet by ity of tablet 00:00: mouth in [place] 00 the Medical morning Branch and 1 tablet in the evening. tiZANidine 2023-0 Yes [id number] 4mg Take 1 [facility] 4 mg tablet 4-15 tablet by ity of 00:00: mouth [place] 00 every 6 Medical (six) Branch hours as needed for Pain (scale 4-6) for up to 20 doses. diclofenac 2023-0 Yes [id number] 50mg Take 1 [facility] 50 mg 4-15 tablet by ity of tablet 00:00: mouth in [place] 00 the Medical morning Branch and 1 tablet in the evening. tiZANidine 2023-0 Yes [id number] 4mg Take 1 [facility] 4 mg tablet 4-15 tablet by ity of 00:00: mouth [place] 00 every 6 Medical (six) Branch hours as needed for Pain (scale 4-6) for up to 20 doses. diclofenac 2023-0 Yes [id number] 50mg Take 1 [facility] 50 mg 4-15 tablet by ity of tablet 00:00: mouth in [place] 00 the Medical morning Branch and 1 tablet in the evening. tiZANidine 2023-0 Yes [id number] 4mg Take 1 [facility] 4 mg tablet 4-15 tablet by ity of 00:00: mouth [place] 00 every 6 Medical (six) Branch hours as needed for Pain (scale 4-6) for up to 20 doses. diclofenac 2023-0 Yes [id number] 50mg Take 1 [facility] 50 mg 4-15 tablet by ity of tablet 00:00: mouth in [place] 00 the Medical morning Branch and 1 tablet in the evening. tiZANidine 2023-0 Yes [id number] 4mg Take 1 [facility] 4 mg tablet 4-15 tablet by ity of 00:00: mouth [place] 00 every 6 Medical (six) Branch hours as needed for Pain (scale 4-6) for up to 20 doses. diclofenac 2023-0 Yes [id number] 50mg Take 1 [facility] 50 mg 4-15 tablet by ity of tablet 00:00: mouth in [place] 00 the Medical morning Branch and 1 tablet in the evening. tiZANidine 2023-0 Yes [id number] 4mg Take 1 [facility] 4 mg tablet 4-15 tablet by ity of 00:00: mouth [place] 00 every 6 Medical (six) Branch hours as needed for Pain (scale 4-6) for up to 20 doses. diclofenac 2023-0 Yes [id number] 50mg Take 1 [facility] 50 mg 4-15 tablet by ity of tablet 00:00: mouth in [place] 00 the Medical morning Branch and 1 tablet in the evening. tiZANidine 2023-0 Yes [id number] 4mg Take 1 [facility] 4 mg tablet 4-15 tablet by ity of 00:00: mouth [place] 00 every 6 Medical (six) Branch hours as needed for Pain (scale 4-6) for up to 20 doses. diclofenac 2023-0 Yes [id number] 50mg Take 1 [facility] 50 mg 4-15 tablet by ity of tablet 00:00: mouth in [place] 00 the Medical morning Branch and 1 tablet in the evening. tiZANidine 2023-0 Yes [id number] 4mg Take 1 [facility] 4 mg tablet 4-15 tablet by ity of 00:00: mouth [place] 00 every 6 Medical (six) Branch hours as needed for Pain (scale 4-6) for up to 20 doses. diclofenac 2023-0 Yes [id number] 50mg Take 1 [facility] 50 mg 4-15 tablet by ity of tablet 00:00: mouth in [place] 00 the Medical morning Branch and 1 tablet in the evening. tiZANidine 2023-0 Yes [id number] 4mg Take 1 [facility] 4 mg tablet 4-15 tablet by ity of 00:00: mouth [place] 00 every 6 Medical (six) Branch hours as needed for Pain (scale 4-6) for up to 20 doses. diclofenac 2023-0 Yes [id number] 50mg Take 1 [facility] 50 mg 4-15 tablet by ity of tablet 00:00: mouth in [place] 00 the Medical morning Branch and 1 tablet in the evening. tiZANidine 2023-0 Yes [id number] 4mg Take 1 [facility] 4 mg tablet 4-15 tablet by ity of 00:00: mouth [place] 00 every 6 Medical (six) Branch hours as needed for Pain (scale 4-6) for up to 20 doses. tiZANidine 2023-0 Yes [id number] 4mg Take 1 [facility] 4 mg tablet 4-15 tablet by ity of 00:00: mouth [place] 00 every 6 Medical (six) Branch hours as needed for Pain (scale 4-6) for up to 20 doses. tiZANidine 3-0 Yes [id number] 4mg Take 1 [facility] 4 mg tablet 4-15 tablet by ity of 00:00: mouth [place] 00 every 6 Medical (six) Branch hours as needed for Pain (scale 4-6) for up to 20 doses. tiZANidine 3-0 Yes [id number] 4mg Take 1 [facility] 4 mg tablet 4-15 tablet by ity of 00:00: mouth [place] 00 every 6 Medical (six) Branch hours as needed for Pain (scale 4-6) for up to 20 doses. tiZANidine 3-0 Yes [id number] 4mg Take 1 [facility] 4 mg tablet 4-15 tablet by ity of 00:00: mouth [place] 00 every 6 Medical (six) Branch hours as needed for Pain (scale 4-6) for up to 20 doses. tiZANidine 3-0 Yes [id number] 4mg Take 1 [facility] 4 mg tablet 4-15 tablet by ity of 00:00: mouth [place] 00 every 6 Medical (six) Branch hours as needed for Pain (scale 4-6) for up to 20 doses. tiZANidine 3-0 Yes [id number] 4mg Take 1 [facility] 4 mg tablet 4-15 tablet by ity of 00:00: mouth [place] 00 every 6 Medical (six) Branch hours as needed for Pain (scale 4-6) for up to 20 doses. tiZANidine 3-0 Yes [id number] 4mg Take 1 [facility] 4 mg tablet 4-15 tablet by ity of 00:00: mouth [place] 00 every 6 Medical (six) Branch hours as needed for Pain (scale 4-6) for up to 20 doses. tiZANidine 3-0 Yes [id number] 4mg Take 1 [facility] 4 mg tablet 4-15 tablet by ity of 00:00: mouth [place] 00 every 6 Medical (six) Branch hours as needed for Pain (scale 4-6) for up to 20 doses. tiZANidine 3-0 Yes [id number] 4mg Take 1 [facility] 4 mg tablet 4-15 tablet by ity of 00:00: mouth [place] 00 every 6 Medical (six) Branch hours as needed for Pain (scale 4-6) for up to 20 doses. tiZANidine 2023-0 Yes [id number] 4mg Take 1 [facility] 4 mg tablet 4-15 tablet by ity of 00:00: mouth [place] 00 every 6 Medical (six) Branch hours as needed for Pain (scale 4-6) for up to 20 doses. diclofenac 2022-0 2022- No [id number] 50mg Take 1 [facility] 50 mg 4-15 04-25 tablet by ity of tablet 00:00: 00:00 mouth in [place] 00 :00 the Medical morning Branch and 1 tablet in the evening. diclofenac 2022-0 2022- No [id number] 50mg Take 1 [facility] 50 mg 4-15 04-25 tablet by ity of tablet 00:00: 00:00 mouth in [place] 00 :00 the Medical morning Branch and 1 tablet in the evening. diclofenac 2022-0 2022- No [id number] 50mg Take 1 [facility] 50 mg 4-15 04-25 tablet by ity of tablet 00:00: 00:00 mouth in [place] 00 :00 the Medical morning Branch and 1 tablet in the evening. gabapentin 2022-0 Yes TAKE ONE [facility] vers 300 mg 4-05 (1) ity of capsule 00:00: [place](S) [place] 00 BY MOUTH Medical EVERY Branch EIGHT HOURS. gabapentin 2022-0 Yes TAKE ONE [facility] vers 300 mg 4-05 (1) ity of capsule 00:00: CAPSULE(S) [place] 00 BY MOUTH Medical EVERY Branch EIGHT HOURS. gabapentin 2022-0 Yes TAKE ONE [facility] vers 300 mg 4-05 (1) ity of capsule 00:00: CAPSULE(S) [place] 00 BY MOUTH Medical EVERY Branch EIGHT HOURS. gabapentin 2022-0 Yes TAKE ONE [facility] vers 300 mg 4-05 (1) ity of capsule 00:00: CAPSULE(S) [place] 00 BY MOUTH Medical EVERY Branch EIGHT HOURS. gabapentin 2022-0 Yes TAKE ONE [facility] vers 300 mg 4-05 (1) ity of capsule 00:00: CAPSULE(S) [place] 00 BY MOUTH Medical EVERY Branch EIGHT HOURS. gabapentin 2022-0 Yes TAKE ONE [facility] vers 300 mg 4-05 (1) ity of capsule 00:00: CAPSULE(S) [place] 00 BY MOUTH Medical EVERY Branch EIGHT HOURS. gabapentin 2022-0 Yes TAKE ONE [facility] vers 300 mg 4-05 (1) ity of capsule 00:00: CAPSULE(S) [place] 00 BY MOUTH Medical EVERY [place] EIGHT HOURS. gabapentin 2023-0 Yes TAKE ONE [facility] vers 300 mg 4-05 (1) ity of capsule 00:00: CAPSULE(S) [place] 00 BY MOUTH Medical EVERY [place] EIGHT HOURS. gabapentin 2023-0 Yes TAKE ONE [facility] vers 300 mg 4-05 (1) ity of capsule 00:00: CAPSULE(S) [place] 00 BY MOUTH Medical EVERY [place] EIGHT HOURS. gabapentin 2023-0 Yes TAKE ONE [facility] vers 300 mg 4-05 (1) ity of capsule 00:00: CAPSULE(S) [place] 00 BY MOUTH Medical EVERY [place] EIGHT HOURS. diclofenac 2023-0 Yes 75mg Take 1 Unive rs 75 mg EC 4-02 tablet by ity of tablet 00:00: mouth in [place] 00 the Medical morning Branch and 1 tablet in the evening. diclofenac 2023-0 2023- No 75mg Take 1 Univ ers 75 mg EC -01 05-26 tablet by ity o f tablet 00:00: 00:00 mouth in [place] 00 :00 the Medical morning Branch and 1 tablet in the evening. diclofenac 2023-0 2023- No 75mg Take 1 [facility] ers 75 mg EC -01 05-26 tablet by ity o f tablet 00:00: 00:00 mouth in [place] 00 :00 the Medical morning Branch and 1 tablet in the evening. diclofenac 2023-0 2023- No 75mg Take 1 [facility] ers 75 mg EC 4-01 05-26 tablet by ity o f tablet 00:00: 00:00 mouth in [place] 00 :00 the Medical morning Branch and 1 tablet in the evening. clonazePAM 2023-0 Yes .5mg Take 1 Unive rs 0.5 mg 3-29 tablet by ity of tablet 00:00: mouth in [place] 00 the Medical morning Branch and 1 tablet in the evening. clonazePAM 2023-0 Yes .5mg Take 1 Un[facility] rs 0.5 mg 3-29 tablet by ity of tablet 00:00: mouth in [place] 00 the Medical morning Branch and 1 tablet in the evening. clonazePAM 2023-0 Yes .5mg Take 1 Un[facility] rs 0.5 mg 3-29 tablet by ity of tablet 00:00: mouth in [place] 00 the Medical morning Branch and 1 tablet in the evening. clonazePAM 2023-0 Yes .5mg Take 1 Un[facility] rs 0.5 mg 3-29 tablet by ity of tablet 00:00: mouth in [place] 00 the Medical morning Branch and 1 tablet in the evening. clonazePAM 2023-0 Yes .5mg Take 1 Unive rs 0.5 mg 3-29 tablet by ity of tablet 00:00: mouth in [place] 00 the Medical morning Branch and 1 tablet in the evening. clonazePAM 2023-0 Yes .5mg Take 1 Unive rs 0.5 mg 3-29 tablet by ity of tablet 00:00: mouth in [place] 00 the Medical morning Branch and 1 tablet in the evening. clonazePAM 2023-0 Yes .5mg Take 1 Unive rs 0.5 mg 3-29 tablet by ity of tablet 00:00: mouth in [place] 00 the Medical morning Branch and 1 tablet in the evening. clonazePAM 2023-0 Yes .5mg Take 1 Unive rs 0.5 mg 3-29 tablet by ity of tablet 00:00: mouth in [place] [address] the Medical morning [place] and 1 tablet in the evening. clonazePAM 2023-0 Yes .5mg Take 1 Unive rs 0.5 mg 3-29 tablet by ity of tablet 00:00: mouth in [place] [address] the Medical morning [place] and 1 tablet in the evening. clonazePAM 2023-0 Yes .5mg Take 1 Unive rs 0.5 mg 3-29 tablet by ity of tablet 00:00: mouth in [place] [address] the Medical morning [place] and 1 tablet in the evening. proMETHazin 2023-0 Yes TAKE ONE Un gracy e 12.5 mg 3-16 (1) ity of tablet 00:00: TABLET(S) [place] 00 BY MOUTH Medical EVERY Branch EIGHT HOURS NEEDED. diphenoxyla 2023-0 Yes TAKE ONE Un gracy te-atropine 3-16 (1) ity of 2.5-0.025 00:00: TABLET(S) [place] mg tablet 00 BY MOUTH Medica l THREE Branch TIMES A DAY NEEDED. busPIRone 2023-0 Yes 10mg Take 1 Univer s 10 mg 3-16 tablet by ity of tablet 00:00: mouth in [place] [address] the Medical morning [place] and 1 tablet in the evening. proMETHazin 2023-0 Yes TAKE ONE Un gracy e 12.5 mg 3-16 (1) ity of tablet 00:00: TABLET(S) [place] 00 BY MOUTH Medical EVERY Branch EIGHT HOURS NEEDED. diphenoxyla 2023-0 Yes TAKE ONE Un gracy te-atropine 3-16 (1) ity of 2.5-0.025 00:00: TABLET(S) [place] mg tablet 00 BY MOUTH Medica l THREE Branch TIMES A DAY NEEDED. busPIRone 2023-0 Yes 10mg Take 1 Univer s 10 mg 3-16 tablet by ity of tablet 00:00: mouth in [place] 00 the Medical morning Branch and 1 tablet in the evening. proMETHazin 2023-0 Yes TAKE ONE Un gracy e 12.5 mg 3-16 (1) ity of tablet 00:00: TABLET(S) [place] 00 BY MOUTH Medical EVERY Branch EIGHT HOURS NEEDED. diphenoxyla 2023-0 Yes TAKE ONE Un gracy te-atropine 3-16 (1) ity of 2.5-0.025 00:00: TABLET(S) [place] mg tablet 00 BY MOUTH Medica l THREE Branch TIMES A DAY NEEDED. busPIRone 2023-0 Yes 10mg Take 1 Univer s 10 mg 3-16 tablet by ity of tablet 00:00: mouth in [place] the Medical morning Branch and 1 tablet in the evening. proMETHazin 2023-0 Yes TAKE ONE Un gracy e 12.5 mg 3-16 (1) ity of tablet 00:00: TABLET(S) [place] 00 BY MOUTH Medical EVERY Branch EIGHT HOURS NEEDED. diphenoxyla 2023-0 Yes TAKE ONE Un gracy te-atropine 3-16 (1) ity of 2.5-0.025 00:00: TABLET(S) [place] mg tablet 00 BY MOUTH Medica l THREE Branch TIMES A DAY NEEDED. busPIRone 2023-0 Yes 10mg Take 1 Univer s 10 mg 3-16 tablet by ity of tablet 00:00: mouth in [place] 00 the Medical morning Branch and 1 tablet in the evening. proMETHazin 2023-0 Yes TAKE ONE Un gracy e 12.5 mg 3-16 (1) ity of tablet 00:00: TABLET(S) [place] 00 BY MOUTH Medical EVERY Branch EIGHT HOURS NEEDED. diphenoxyla 2023-0 Yes TAKE ONE Un gracy te-atropine 3-16 (1) ity of 2.5-0.025 00:00: TABLET(S) [place] mg tablet 00 BY MOUTH Medica l THREE Branch TIMES A DAY NEEDED. busPIRone 2023-0 Yes 10mg Take 1 Univer s 10 mg 3-16 tablet by ity of tablet 00:00: mouth in [place] 00 the Medical morning Branch and 1 tablet in the evening. proMETHazin 2023-0 Yes TAKE ONE Un gracy e 12.5 mg 3-16 (1) ity of tablet 00:00: TABLET(S) [place] 00 BY MOUTH Medical EVERY Branch EIGHT HOURS NEEDED. diphenoxyla 2023-0 Yes TAKE ONE Un gracy te-atropine 3-16 (1) ity of 2.5-0.025 00:00: TABLET(S) [place] mg tablet 00 BY MOUTH Medica l THREE Branch TIMES A DAY NEEDED. busPIRone 2023-0 Yes 10mg Take 1 Univer s 10 mg 3-16 tablet by ity of tablet 00:00: mouth in [place] the Medical morning Branch and 1 tablet in the evening. proMETHazin 2023-0 Yes TAKE ONE Un gracy e 12.5 mg 3-16 (1) ity of tablet 00:00: TABLET(S) [place] 00 BY MOUTH Medical EVERY Branch EIGHT HOURS NEEDED. diphenoxyla 2023-0 Yes TAKE ONE Un gracy te-atropine 3-16 (1) ity of 2.5-0.025 00:00: TABLET(S) [place] mg tablet 00 BY MOUTH Medica l THREE Branch TIMES A DAY NEEDED. busPIRone 2023-0 Yes 10mg Take 1 Univer s 10 mg 3-16 tablet by ity of tablet 00:00: mouth in [place] the Medical morning Branch and 1 tablet in the evening. proMETHazin 2023-0 Yes TAKE ONE Un gracy e 12.5 mg 3-16 (1) ity of tablet 00:00: TABLET(S) [place] 00 BY MOUTH Medical EVERY Branch EIGHT HOURS NEEDED. diphenoxyla 2023-0 Yes TAKE ONE Un gracy te-atropine 3-16 (1) ity of 2.5-0.025 00:00: TABLET(S) [place] mg tablet 00 BY MOUTH Medica l THREE Branch TIMES A DAY NEEDED. busPIRone 2023-0 Yes 10mg Take 1 Univer s 10 mg 3-16 tablet by ity of tablet 00:00: mouth in [place] 00 the Medical morning Branch and 1 tablet in the evening. proMETHazin 2022-0 Yes TAKE ONE Un gracy e 12.5 mg 3-16 (1) ity of tablet 00:00: TABLET(S) [place] 00 BY MOUTH Medical EVERY Branch EIGHT HOURS NEEDED. diphenoxyla 2022-0 Yes TAKE ONE Un gracy te-atropine 3-16 (1) ity of 2.5-0.025 00:00: TABLET(S) [place] mg tablet 00 BY MOUTH Medica l THREE Branch TIMES A DAY NEEDED. busPIRone 2022-0 Yes 10mg Take 1 Univer s 10 mg 3-16 tablet by ity of tablet 00:00: mouth in [place] 00 the Medical morning Branch and 1 tablet in the evening. proMETHazin 2022-0 Yes TAKE ONE Un gracy e 12.5 mg 3-16 (1) ity of tablet 00:00: TABLET(S) [place] 00 BY MOUTH Medical EVERY Branch EIGHT HOURS NEEDED. diphenoxyla 2022-0 Yes TAKE ONE Un gracy te-atropine 3-16 (1) ity of 2.5-0.025 00:00: TABLET(S) [place] mg tablet 00 BY MOUTH Medica l THREE Branch TIMES A DAY NEEDED. busPIRone 2022-0 Yes 10mg Take 1 Univer s 10 mg 3-16 tablet by ity of tablet 00:00: mouth in [place] 00 the Medical morning Branch and 1 tablet in the evening. lisinopriL 2020-12 Yes hypertensio 5mg QD Take [address] [facility] (PRINIVIL,Z 2-19 n tablet (5 Martha es ESTRIL) 5 00:00: mg total) Med ical MG tablet 00 by mouth Center daily. oxybutynin 2020-12 Yes 10mg QD [facility] 2-19 tablet (10 Marcella kes L) 10 MG 24 00:00: mg total) M edical hr tablet 00 by mouth Center daily. lisinopriL 2020-12 Yes hypertensio 5mg QD Take [address] [facility] (PRINIVIL,Z 2-19 n tablet (5 Martha es ESTRIL) 5 00:00: mg total) Med ical MG tablet 00 by mouth Center daily. oxybutynin 2020-12 Yes 10mg QD Take 1 [facility] (DITROP[facility]-X 2-19 tablet (10 Marcella kes L) 10 MG 24 00:00: mg total) M edical hr tablet 00 by mouth Center daily. lisinopriL 2020-12 Yes hypertensio 5mg QD Take [address] [facility] (PRINIVIL,Z 2-19 n tablet (5 Martha es ESTRIL) 5 00:00: mg total) Med ical MG tablet 00 by mouth Center daily. oxybutynin 2020-12 Yes 10mg QD Take 1 [facility] (DITROP[facility]-X 2-19 tablet (10 Marcella kes L) 10 MG 24 00:00: mg total) M edical hr tablet 00 by mouth Center daily. lisinopriL 2020-12 Yes hypertensio 5mg QD Take [...] mouth Center daily. busPIRone 2020-12 Yes 5mg [id number] Take [address] [facility] (BUSPAR) 5 2-18 [id number] by mouth 3 [facility] tablet 15:41: 3D (three) Medic al 03 times Center daily. busPIRone 2020-12 Yes 5mg Q.[id number] Take [address] [facility] (BUSPAR) 5 2-18 [id number] by mouth 3 [facility] tablet 15:41: 3D (three) Medic al 03 times Center daily. busPIRone 2020-12 Yes 5mg Q.[id number] Take [address] [facility] (BUSPAR) 5 2-18 [id number] by mouth 3 [facility] tablet 15:41: 3D (three) Medic al 03 times Center daily. busPIRone 2020-12 Yes 5mg Q.[id number] Take [address] [facility] (BUSPAR) 5 2-18 [id number] by mouth 3 [facility] tablet 15:41: [...] (three) times daily as needed (bladder spasms). HYDROcodone 2020-12 Yes 1{tbl} Take 1 [facility] [...] (three) times daily as needed (bladder spasms). HYDROcodone 2020-12 Yes 1{tbl} Take 1 [facility] [...] (three) times daily as needed (bladder spasms). HYDROcodone 2020-12 Yes 1{tbl} Take 1 [facility] [...] times daily as needed (bladder spasms). ibuprofen 2020- No 600mg 600 mg, Uni vers (IBU) 12-26 Oral, ity of tablet 600 04:45: 03:53 ONCE, 1 [place] mg 00 :00 dose, [facility] 12/25/20 at Branch 2245, MATTHEW ibuprofen 2020- No 600mg 600 mg, Uni vers (IBU) 12-26 Oral, ity of tablet 600 00:30: 12:29 ONCE, 1 [place] mg 00 :00 dose, [facility] 12/25/20 at Branch 1830, MATTHEW metroNIDAZO 2020- No [id number] 2000mg Take 4 [facility] LE 500 mg 12-26 tablets by ity of tablet 00:00: 05:59 mouth 2 [place] 00 :00 (two) Medical times Branch daily for 1 dose. NaCl 0.9% No 1000mL at 999 Uni vers (NS) bolus 12-25 mL/hr, ity of infusion 17:30: 18:07 1,000 mL, [place] as 1,000 mL 00 :00 IV Medical Infusion, Branch ONCE, 1 dose, [place] 12/25/20 at 1130, STAT proMETHazin 2020- No 12.5mg 12.5 mg, Univers e 12-25 IV ity of (PHENERGAN) 17:30: 16:45 Piggyback, [place] 12.5 mg in 00 :00 ONCE, 1 Medica l NaCl 0.9% dose, [facility] (NS) 50 mL 12/25/20 at piggyback 1130, 50 mL cefTRIAXone 2020- No 250mg 250 mg, U nivers (ROCEPHIN) 12-25 Intramuscu it y of injection 16:30: 16:45 lar, ONCE [place] 250 mg 00 :00 NOW, 1 Medical dose, [facility] 12/25/20 at 1030, MATTHEW
Fa culty member approving Restricted medication : MYNOR HOLLIS
Reaso n for Anti-Infec tive: Documented Infection< br>Docu mented Infection Site: Abdominal< br>Duratio n of Therapy: 7 days azithromyci 2020- No 1000mg 1,000 mg, Univers n 12-25 Oral, ONCE ity of (ZITHROMAX) 16:30: 16:44 NOW, 1 [place] tablet 00 :00 dose, [facility] 1,000 mg 12/25/20 at [facility] 1030, MATTHEW
Re ason for Anti-Infec tive: Documented Infection< br>Documen fatemeh Infection Site: COVID
D uration of Therapy: 7 days FENTanyl PF Yes 50ug 50 mcg, Uni vers (SUBLIMAZE 12-25 Slow IV ity of (PF)) 16:14: Push, [place] injection 05 Q30MIN Medical 50 mcg PRN, 3 Branch doses, Starting [place] 12/25/20 at 1014, Until Discontinu ed, MATTHEW, Pain (scale 7-10) iohexol 2020-0 2020- No 120mL 120 mL, Unive rs (OMNIPAQUE 07-15 Intravenou it y of 350 22:15: 22:15 s, ONCE, 1 [place] BULK-150 00 :00 dose, Fri Medica l mL) 07/15/20 at [place] injection 1715, 120 mL Routine dicyclomine 2020-0 Yes 10mg 10 mg, Univ ers (BENTYL) 07-15 Oral, QID, ity o f capsule 10 21:00: First dose [place] mg 00 on Fri Medical 07/15/20 at [place] 1600, Until Discontinu ed, Routine pantoprazol 2020-0 2020- No 80mg 80 mg, IV Univers e 07-15 Piggyback, ity of (PROTONIX) 19:45: 20:00 ONCE, 1 [place] as 80 mg in 00 :00 dose, Fri Medica l NaCl 0.9% 07/15/20 at [facility] (NS) 100 mL 1445, 100 IV mL [place]back sucralfate 2020-0 Yes [id number] 1g Take 1 Un gracy 1 gram 8-14 tablet by ity of tablet 00:00: mouth [place] 00 before Medical meals and Branch at bedtime. dicyclomine 2020-0 Yes [id number] 10mg Take 1 U nivers (BENTYL) 10 8-14 capsule by it y of mg capsule 00:00: mouth [place] 00 every 8 Medical (eight) Branch hours as needed for Abdominal pain. ondansetron 2020-0 Yes [id number] 4mg Take 1 U nivers 4 mg 8-14 tablet by ity of disintegrat 00:00: mouth [place] ing tablet 00 every 8 Medica l (eight) Branch hours as needed for Nausea and Vomiting (N/V). sucralfate 2020-0 Yes [id number] 1g Take 1 Un gracy 1 gram 8-14 tablet by ity of tablet 00:00: mouth [place] 00 before Medical meals and Branch at bedtime. dicyclomine 2020-0 Yes [id number] 10mg Take 1 U nivers (BENTYL) 10 8-14 capsule by it y of mg capsule 00:00: mouth [place] 00 every 8 Medical (eight) Branch hours as needed for Abdominal pain. ondansetron 2020-0 Yes [id number] 4mg Take 1 U nivers 4 mg 8-14 tablet by ity of disintegrat 00:00: mouth [place] ing tablet 00 every 8 Medica l (eight) Branch hours as needed for Nausea and Vomiting (N/V). sucralfate 2020-0 Yes [id number] 1g Take 1 Un gracy 1 gram 8-14 tablet by ity of tablet 00:00: mouth [place] 00 before Medical meals and Branch at bedtime. dicyclomine 2020-0 Yes [id number] 10mg Take 1 U nivers (BENTYL) 10 8-14 capsule by it y of mg capsule 00:00: mouth [place] 00 every 8 Medical (eight) Branch hours as needed for Abdominal pain. ondansetron 2020-0 Yes [id number] 4mg Take 1 U nivers 4 mg 8-14 tablet by ity of disintegrat 00:00: mouth [place] ing tablet 00 every 8 Medica l (eight) Branch hours as needed for Nausea and Vomiting (N/V). sucralfate 2020-0 Yes [id number] 1g Take 1 Un gracy 1 gram 8-14 tablet by ity of tablet 00:00: mouth [place] 00 before Medical meals and Branch at bedtime. dicyclomine 2020-0 Yes [id number] 10mg Take 1 U nivers (BENTYL) 10 8-14 capsule by it y of mg capsule 00:00: mouth [place] 00 every 8 Medical (eight) Branch hours as needed for Abdominal pain. ondansetron 2020-0 Yes [id number] 4mg Take 1 U nivers 4 mg 8-14 tablet by ity of disintegrat 00:00: mouth [place] ing tablet 00 every 8 Medica l (eight) Branch hours as needed for Nausea and Vomiting (N/V). sucralfate 2020-0 Yes [id number] 1g Take 1 Un gracy 1 gram 8-14 tablet by ity of tablet 00:00: mouth [place] 00 before Medical meals and Branch at bedtime. dicyclomine 2020-0 Yes [id number] 10mg Take 1 U nivers (BENTYL) 10 8-14 capsule by it y of mg capsule 00:00: mouth [place] 00 every 8 Medical (eight) Branch hours as needed for Abdominal pain. ondansetron 2020-0 Yes [id number] 4mg Take 1 U nivers 4 mg 8-14 tablet by ity of disintegrat 00:00: mouth [place] ing tablet 00 every 8 Medica l (eight) Branch hours as needed for Nausea and Vomiting (N/V). sucralfate 2020-0 Yes [id number] 1g Take 1 Un gracy 1 gram 8-14 tablet by ity of tablet 00:00: mouth [place] 00 before Medical meals and Branch at bedtime. dicyclomine 2020-0 Yes [id number] 10mg Take 1 U nivers (BENTYL) 10 8-14 capsule by it y of mg capsule 00:00: mouth [place] 00 every 8 Medical (eight) Branch hours as needed for Abdominal pain. ondansetron 2020-0 Yes [id number] 4mg Take 1 U nivers 4 mg 8-14 tablet by ity of disintegrat 00:00: mouth [place] ing tablet 00 every 8 Medica l (eight) Branch hours as needed for Nausea and Vomiting (N/V). sucralfate 2020-0 Yes [id number] 1g Take 1 Un gracy 1 gram 8-14 tablet by ity of tablet 00:00: mouth [place] 00 before Medical meals and Branch at bedtime. dicyclomine 2020-0 Yes [id number] 10mg Take 1 U nivers (BENTYL) 10 8-14 capsule by it y of mg capsule 00:00: mouth [place] 00 every 8 Medical (eight) Branch hours as needed for Abdominal pain. ondansetron 2020-0 Yes [id number] 4mg Take 1 U nivers 4 mg 8-14 tablet by ity of disintegrat 00:00: mouth [place] ing tablet 00 every 8 Medica l (eight) Branch hours as needed for Nausea and Vomiting (N/V). sucralfate 2020-0 Yes [id number] 1g Take 1 Un gracy 1 gram 8-14 tablet by ity of tablet 00:00: mouth [place] 00 before Medical meals and Branch at bedtime. dicyclomine 2020-0 Yes [id number] 10mg Take 1 U nivers (BENTYL) 10 8-14 capsule by it y of mg capsule 00:00: mouth [place] 00 every 8 Medical (eight) Branch hours as needed for Abdominal pain. ondansetron 2020-0 Yes [id number] 4mg Take 1 [facility]ivers 4 mg 8-14 tablet by ity of disintegrat 00:00: mouth [place] ing tablet 00 every 8 Medica l (eight) Branch hours as needed for Nausea and Vomiting (N/V). sucralfate 2020-0 Yes [id number] 1g Take 1 Un gracy 1 gram 8-14 tablet by ity of tablet 00:00: mouth [place] 00 before Medical meals and Branch at bedtime. dicyclomine 2020-0 Yes [id number] 10mg Take 1 U nivers (BENTYL) 10 8-14 capsule by it y of mg capsule 00:00: mouth [place] 00 every 8 Medical (eight) Branch hours as needed for Abdominal pain. ondansetron 2020-0 Yes [id number] 4mg Take 1 U nivers 4 mg 8-14 tablet by ity of disintegrat 00:00: mouth [place] ing tablet 00 every 8 Medica l (eight) Branch hours as needed for Nausea and Vomiting (N/V). sucralfate 2020-0 Yes [id number] 1g Take 1 Un gracy 1 gram 8-14 tablet by ity of tablet 00:00: mouth [place] 00 before Medical meals and Branch at bedtime. dicyclomine 2020-0 Yes [id number] 10mg Take 1 U nivers (BENTYL) 10 8-14 capsule by it y of mg capsule 00:00: mouth [place] 00 every 8 Medical (eight) Branch hours as needed for Abdominal pain. ondansetron 2020-0 Yes [id number] 4mg Take 1 U nivers 4 mg 8-14 tablet by ity of disintegrat 00:00: mouth [place] ing tablet 00 every 8 Medica l (eight) Branch hours as needed for Nausea and Vomiting (N/V). sucralfate 2020-0 Yes [id number] 1g Take 1 Un gracy 1 gram 8-14 tablet by ity of tablet 00:00: mouth [place] 00 before Medical meals and Branch at bedtime. dicyclomine 2020-0 Yes [id number] 10mg Take 1 U nivers (BENTYL) 10 8-14 capsule by it y of mg capsule 00:00: mouth [place] 00 every 8 Medical (eight) Branch hours as needed for Abdominal pain. ondansetron 2020-0 Yes [id number] 4mg Take 1 U [facility]ivers 4 mg 8-14 tablet by ity of disintegrat 00:00: mouth [place] ing tablet 00 every 8 Medica l (eight) Branch hours as needed for Nausea and Vomiting (N/V). sucralfate 2020-0 Yes [id number] 1g Take 1 Un gracy 1 gram 8-14 tablet by ity of tablet 00:00: mouth [place] 00 before Medical meals and Branch at bedtime. dicyclomine 2020-0 Yes [id number] 10mg Take 1 U nivers (BENTYL) 10 8-14 capsule by it y of mg capsule 00:00: mouth [place] 00 every 8 Medical (eight) Branch hours as needed for Abdominal pain. ondansetron 2020-0 Yes [id number] 4mg Take 1 U [facility]ivers 4 mg 8-14 tablet by ity of disintegrat 00:00: mouth [place] ing tablet 00 every 8 Medica l (eight) Branch hours as needed for Nausea and Vomiting (N/V). sucralfate 2020-0 Yes [id number] 1g Take 1 Un gracy 1 gram 8-14 tablet by ity of tablet 00:00: mouth [place] 00 before Medical meals and Branch at bedtime. dicyclomine 2020-0 Yes [id number] 10mg Take 1 U nivers (BENTYL) 10 8-14 capsule by it y of mg capsule 00:00: mouth [place] 00 every 8 Medical (eight) Branch hours as needed for Abdominal pain. ondansetron 2020-0 Yes [id number] 4mg Take 1 U [facility]ivers 4 mg 8-14 tablet by ity of disintegrat 00:00: mouth [place] ing tablet 00 every 8 Medica l (eight) Branch hours as needed for Nausea and Vomiting (N/V). sucralfate 2020-0 Yes [id number] 1g Take 1 Un gr[facility] 1 gram 8-14 tablet by ity of tablet 00:00: mouth [place] 00 before Medical meals and Branch at bedtime. dicyclomine 2020-0 Yes [id number] 10mg Take 1 U nivers (BENTYL) 10 8-14 capsule by it y of mg capsule 00:00: mouth [place] 00 every 8 Medical (eight) Branch hours as needed for Abdominal pain. ondansetron 2020-0 Yes [id number] 4mg Take 1 U nivers 4 mg 8-14 tablet by ity of disintegrat 00:00: mouth [place] ing tablet 00 every 8 Medica l (eight) Branch hours as needed for Nausea and Vomiting (N/V). sucralfate 2020-0 Yes [id number] 1g Take 1 Un gracy 1 gram 8-14 tablet by ity of tablet 00:00: mouth [place] 00 before Medical meals and Branch at bedtime. dicyclomine 2020-0 Yes [id number] 10mg Take 1 U nivers (BENTYL) 10 8-14 capsule by it y of mg capsule 00:00: mouth [place] 00 every 8 Medical (eight) Branch hours as needed for Abdominal pain. ondansetron 2020-0 Yes [id number] 4mg Take 1 U [facility]ivers 4 mg 8-14 tablet by ity of disintegrat 00:00: mouth [place] ing tablet 00 every 8 Medica l (eight) Branch hours as needed for Nausea and Vomiting (N/V). sucralfate 2020-0 Yes [id number] 1g Take 1 Un gr[facility] 1 gram 8-14 tablet by ity of tablet 00:00: mouth [place] 00 before Medical meals and Branch at bedtime. dicyclomine 2020-0 Yes [id number] 10mg Take 1 U nivers (BENTYL) 10 8-14 capsule by it y of mg capsule 00:00: mouth [place] 00 every 8 Medical (eight) Branch hours as needed for Abdominal pain. ondansetron 2020-0 Yes [id number] 4mg Take 1 U [facility]ivers 4 mg 8-14 tablet by ity of disintegrat 00:00: mouth [place] ing tablet 00 every 8 Medica l (eight) Branch hours as needed for Nausea and Vomiting (N/V). sucralfate 2020-0 Yes [id number] 1g Take 1 Un gr[facility] 1 gram 8-14 tablet by ity of tablet 00:00: mouth [place] 00 before Medical meals and Branch at bedtime. dicyclomine 2020-0 Yes [id number] 10mg Take 1 [facility] nivers (BENTYL) 10 8-14 capsule by it y of mg capsule 00:00: mouth [place] 00 every 8 Medical (eight) Branch hours as needed for Abdominal pain. ondansetron 2020-0 Yes [id number] 4mg Take 1 [facility]ivers 4 mg 8-14 tablet by ity of disintegrat 00:00: mouth [place] ing tablet 00 every 8 Medica l (eight) Branch hours as needed for Nausea and Vomiting (N/V). sucralfate 2020-0 Yes [id number] 1g Take 1 Un gr[facility] 1 gram 8-14 tablet by ity of tablet 00:00: mouth [place] 00 before Medical meals and Branch at bedtime. dicyclomine 2020-0 Yes [id number] 10mg Take 1 [facility] nivers (BENTYL) 10 8-14 capsule by it y of mg capsule 00:00: mouth [place] 00 every 8 Medical (eight) Branch hours as needed for Abdominal pain. ondansetron 2020-0 Yes [id number] 4mg Take 1 [facility]ivers 4 mg 8-14 tablet by ity of disintegrat 00:00: mouth [place] ing tablet 00 every 8 Medica l (eight) Branch hours as needed for Nausea and Vomiting (N/V). sucralfate 2020-0 Yes [id number] 1g Take 1 Un gr[facility] 1 gram 8-14 tablet by ity of tablet 00:00: mouth [place] 00 before Medical meals and Branch at bedtime. dicyclomine 2020-0 Yes [id number] 10mg Take 1 [facility] nivers (BENTYL) 10 8-14 capsule by it y of mg capsule 00:00: mouth [place] 00 every 8 Medical (eight) Branch hours as needed for Abdominal pain. ondansetron 2020-0 Yes [id number] 4mg Take 1 [facility]ivers 4 mg 8-14 tablet by ity of disintegrat 00:00: mouth [place] ing tablet 00 every 8 Medica l (eight) Branch hours as needed for Nausea and Vomiting (N/V). sucralfate 2020-0 Yes [id number] 1g Take 1 Un gr[facility] 1 gram 8-14 tablet by ity of tablet 00:00: mouth [place] 00 before Medical meals and Branch at bedtime. dicyclomine 2020-0 Yes [id number] 10mg Take 1 [facility] nivers (BENTYL) 10 8-14 capsule by it y of mg capsule 00:00: mouth [place] 00 every 8 Medical (eight) Branch hours as needed for Abdominal pain. ondansetron 2020-0 Yes [id number] 4mg Take 1 [facility]ivers 4 mg 8-14 tablet by ity of disintegrat 00:00: mouth [place] ing tablet 00 every 8 Medica l (eight) Branch hours as needed for Nausea and Vomiting (N/V). sucralfate 2020-0 Yes [id number] 1g Take 1 Un gr[facility] 1 gram 8-14 tablet by ity of tablet 00:00: mouth [place] 00 before Medical meals and Branch at bedtime. dicyclomine 2020-0 Yes [id number] 10mg Take 1 [facility] nivers (BENTYL) 10 8-14 capsule by it y of mg capsule 00:00: mouth [place] 00 every 8 Medical (eight) Branch hours as needed for Abdominal pain. ondansetron 2020-0 Yes [id number] 4mg Take 1 [facility]ivers 4 mg 8-14 tablet by ity of disintegrat 00:00: mouth [place] ing tablet 00 every 8 Medica l (eight) Branch hours as needed for Nausea and Vomiting (N/V). sucralfate 2020-0 Yes [id number] 1g Take 1 Un gr[facility] 1 gram 8-14 tablet by ity of tablet 00:00: mouth [place] 00 before Medical meals and Branch at bedtime. dicyclomine 2020-0 Yes [id number] 10mg Take 1 [facility] nivers (BENTYL) 10 8-14 capsule by it y of mg capsule 00:00: mouth [place] 00 every 8 Medical (eight) Branch hours as needed for Abdominal pain. ondansetron 2020-0 Yes [id number] 4mg Take 1 [facility]ivers 4 mg 8-14 tablet by ity of disintegrat 00:00: mouth [place] ing tablet 00 every 8 Medica l (eight) Branch hours as needed for Nausea and Vomiting (N/V). dicyclomine 2020-0 Yes [id number] 10mg Take 1 U nivers (BENTYL) 10 8-14 capsule by it y of mg capsule 00:00: mouth [place] 00 every 8 Medical (eight) Branch hours as needed for Abdominal pain. dicyclomine 2020-0 Yes [id number] 10mg Take 1 U nivers (BENTYL) 10 8-14 capsule by it y of mg capsule 00:00: mouth [place] 00 every 8 Medical (eight) Branch hours as needed for Abdominal pain. dicyclomine 2020-0 Yes [id number] 10mg Take 1 U nivers (BENTYL) 10 8-14 capsule by it y of mg capsule 00:00: mouth [place] 00 every 8 Medical (eight) Branch hours as needed for Abdominal pain. dicyclomine 2020-0 Yes [id number] 10mg Take 1 U nivers (BENTYL) 10 8-14 capsule by it y of mg capsule 00:00: mouth [place] 00 every 8 Medical (eight) Branch hours as needed for Abdominal pain. dicyclomine 2020-0 Yes [id number] 10mg Take 1 U nivers (BENTYL) 10 8-14 capsule by it y of mg capsule 00:00: mouth [place] 00 every 8 Medical (eight) Branch hours as needed for Abdominal pain. dicyclomine 2020-0 Yes [id number] 10mg Take 1 U nivers (BENTYL) 10 8-14 capsule by it y of mg capsule 00:00: mouth [place] 00 every 8 Medical (eight) Branch hours as needed for Abdominal pain. dicyclomine 2020-0 Yes [id number] 10mg Take 1 U nivers (BENTYL) 10 8-14 capsule by it y of mg capsule 00:00: mouth [place] 00 every 8 Medical (eight) Branch hours as needed for Abdominal pain. dicyclomine 2020-0 Yes [id number] 10mg Take 1 U nivers (BENTYL) 10 8-14 capsule by it y of mg capsule 00:00: mouth [place] 00 every 8 Medical (eight) Branch hours as needed for Abdominal pain. dicyclomine 2020-0 Yes [id number] 10mg Take 1 U nivers (BENTYL) 10 8-14 capsule by it y of mg capsule 00:00: mouth [place] 00 every 8 Medical (eight) Branch hours as needed for Abdominal pain. dicyclomine 2020-0 Yes [id number] 10mg Take 1 U nivers (BENTYL) 10 8-14 capsule by it y of mg capsule 00:00: mouth [place] 00 every 8 Medical (eight) Branch hours as needed for Abdominal pain. dicyclomine 2020-0 Yes [id number] 10mg Take 1 U nivers (BENTYL) 10 8-14 capsule by it y of mg capsule 00:00: mouth [place] 00 every 8 Medical (eight) Branch hours as needed for Abdominal pain. sucralfate 2019-2022- No [id number] 1g Take 1 U nivers 1 gram 8-14 04-25 tablet by ity of tablet 00:00: 00:00 mouth [place] 00 :00 before Medical meals and Branch at bedtime. ondansetron 2019-0 2022- No [id number] 4mg Take 1 [facility] 4 mg 8-14 04-25 tablet by ity of disintegrat 00:00: 00:00 [place] tablet 00 :00 every 8 Medica l (eight) Branch hours as needed for Nausea and Vomiting (N/V). sucralfate 2019-2022- No [id number] 1g Take 1 U nivers 1 gram 8-14 04-25 tablet by ity of tablet 00:00: 00:00 mouth [place] 00 :00 before Medical meals and Branch at bedtime. ondansetron 2019-2022- No [id number] 4mg Take 1 [facility] 4 mg 8-14 04-25 tablet by ity of disintegrat 00:00: 00:00 [place] tablet 00 :00 every 8 Medica l (eight) Branch hours as needed for Nausea and Vomiting (N/V). sucralfate 2019-2022- No [id number] 1g Take 1 U nivers 1 gram 8-14 04-25 tablet by ity of tablet 00:00: 00:00 mouth [place] 00 :00 before Medical meals and Branch at bedtime. ondansetron 2019-2022- No [id number] 4mg Take 1 [facility] 4 mg 8-14 04-25 tablet by ity of disintegrat 00:00: 00:00 [place] tablet 00 :00 every 8 Medica l (eight) Branch hours as needed for Nausea and Vomiting (N/V). omeprazole 2019-2019- No [id number] 20mg Take 1 U nivers 20 mg 8-14 09-14 capsule by ity of capsule 00:00: 04:59 mouth [place] 00 :00 daily for Medical 30 days. Branch omeprazole 2019-2019- No [id number] 20mg Take 1 U nivers 20 mg 8-14 09-14 capsule by ity of capsule 00:00: 04:59 mouth [place] 00 :00 daily for Medical 30 days. Branch omeprazole 2019-2019- No [id number] 20mg Take 1 U nivers 20 mg 8-14 09-14 capsule by ity of capsule 00:00: 04:59 mouth [place] 00 :00 daily for Medical 30 days. Branch omeprazole 2019-0 2019- No [id number] 20mg Take 1 U nivers 20 mg 8-14 09-14 capsule by ity of capsule 00:00: 04:59 mouth [place] 00 :00 daily for Medical 30 days. Branch omeprazole 2019- 2020- No [id number] 20mg Take 1 U nivers 20 mg 8-14 09-14 capsule by ity of capsule 00:00: 04:59 mouth [place] 00 :00 daily for Medical 30 days. Branch omeprazole 2019-2019- No [id number] 20mg Take 1 U nivers 20 mg 8-14 09-14 capsule by ity of capsule 00:00: 04:59 mouth [place] 00 :00 daily for Medical 30 days. Branch omeprazole 2019-0 2020- No [id number] 20mg Take 1 U nivers 20 mg 07-15 capsule by ity of capsule 00:00: 04:59 mouth [place] 00 :00 daily for Medical 30 days. Branch omeprazole 2019-0 2020- No [id number] 20mg Take 1 U nivers 20 mg 07-15 capsule by ity of capsule 00:00: 04:59 mouth [place] 00 :00 daily for Medical 30 days. Branch enoxaparin 2019-0 Yes 40mg 40 mg, Unive rs (LOVENOX) 03-22 Subcutaneo ity of injection 14:00: [place] 00 First dose Medical on [facility] 03/22/20 at 0900, Until Discontinu ed, Routine ondansetron 2019-0 Yes 4mg 4 mg, Slow Univers (ZOFRAN 03-22 IV Push, ity of (PF)) 09:23: Q6HPRN, [place] injection 4 44 Starting Medi dorothy mg [facility] 03/22/20 at 0423, Until Discontinu ed, Routine, Nausea and Vomiting (N/V) ketorolac 2019-0 Yes 15mg 15 mg, Univer s (TORADOL) 03-22 Slow IV ity of injection 09:23: Push, [place] 15 mg 14 Q6HPRN, 4 Medical doses, Branch Starting [facility] 03/22/20 at 0423, Until Discontinu ed, Routine, chest pain
Fa culty member approving Restricted medication : SANJAY LIND acetaminoph 2019-0 Yes 650mg 650 mg, Un gracy en 03-22 Oral, ity of (TYLENOL) 09:22: Q6HPRN, [place] tablet 650 49 Starting Medic al mg [facility] 03/22/20 at 0422, Until Discontinu ed, Routine, Pain (scale 1-3) ondansetron 2019-0 2020- No 4mg 4 mg, Slow Univers (ZOFRAN 03-22-21 IV Push, ity of (PF)) 07:15: 07:14 ONCE, 1 [place] injection 4 00 :00 dose, [facility] Med ical mg 03/22/20 at Branch 0215, MATTHEW ondansetron 2018-12 2020- No [id number] 4mg Take 1 Univers (ZOFRAN 2-25 -21 tablet by ity of ODT) 4 mg 00:00: 00:00 mouth [place] disintegrat 00 :00 every 8 Medic al ing tablet (eight) Branch hours as needed for Nausea and Vomiting (N/V). ketorolac 2018-12 2020- No [id number] 10mg Take 1 [facility] 10 mg 2-25 -21 tablet by ity of tablet 00:00: 00:00 mouth [place] 00 :00 every 6 Medical (six) Branch hours as needed for Pain (scale 1-3). No known No [facility] known No [facility] medications [facility] No known No Univers medications [facility] Immunizations Ordered Filled Immunization Date Status Comments [facility] Immunization Name Name Influenza Virus 2017-09-26 Completed Universit y of Vaccine Quad IM 3+ 00:00:00 [facility] Influenza Virus 2017-09-26 Completed Universit y of Vaccine Quad IM 3+ 00:00:00 [facility] Influenza Virus 2017-09-26 Completed Universit y of Vaccine Quad IM 3+ 00:00:00 [facility] Influenza Virus 2017-09-26 Completed Universit y of Vaccine Quad IM 3+ 00:00:00 [facility] Influenza Virus 2017-09-26 Completed Universit y of Vaccine Quad IM 3+ 00:00:00 [facility] Influenza Virus 2017-09-26 Completed Universit y of Vaccine Quad IM 3+ 00:00:00 [facility] Influenza Virus 2017-09-26 Completed Universit y of Vaccine Quad IM 3+ 00:00:00 [facility] Influenza Virus 2017-09-26 Completed Universit y of Vaccine Quad IM 3+ 00:00:00 [facility] ER Influenza Virus 2017-09-26 Completed Universit y of Vaccine Quad IM 3+ 00:00:00 [facility] Influenza Virus 2017-09-26 Completed Universit y of Vaccine Quad IM 3+ 00:00:00 [facility] Influenza Virus 2017-09-26 Completed Universit y of Vaccine Quad IM 3+ 00:00:00 [facility] Influenza Virus 2017-09-26 Completed Universit y of Vaccine Quad IM 3+ 00:00:00 [facility] Influenza Virus 2017-09-26 Completed Universit y of Vaccine Quad IM 3+ 00:00:00 [facility] Influenza Virus 2017-09-26 Completed Universit y of Vaccine Quad IM 3+ 00:00:00 [facility] Influenza Virus 2017-09-26 Completed Universit y of Vaccine Quad IM 3+ 00:00:00 [facility] Influenza Virus 2017-09-26 Completed Universit y of Vaccine Quad IM 3+ 00:00:00 [facility] Influenza Virus 2017-09-26 Completed Universit y of Vaccine Quad IM 3+ 00:00:00 [facility] Influenza Virus 2017-09-26 Completed Universit y of Vaccine Quad IM 3+ 00:00:00 [facility] Influenza Virus 2017-09-26 Completed Universit y of Vaccine Quad IM 3+ 00:00:00 [facility] Influenza Virus 2017-09-26 Completed Universit y of Vaccine Quad IM 3+ 00:00:00 [facility] Influenza Virus 2017-09-26 Completed Universit y of Vaccine Quad IM 3+ 00:00:00 [facility] Influenza Virus 2017-09-26 Completed Universit y of Vaccine Quad IM 3+ 00:00:00 [facility] Influenza Virus 2017-09-26 Completed Universit y of Vaccine Quad IM 3+ 00:00:00 [facility] Influenza Virus 2017-09-26 Completed Universit y of Vaccine Quad IM 3+ 00:00:00 [facility] Influenza Virus 2017-09-26 Completed Universit y of Vaccine Quad IM 3+ 00:00:00 [facility] Influenza Virus 2017-09-26 Completed Universit y of Vaccine Quad IM 3+ 00:00:00 [facility] Influenza Virus 2017-09-26 Completed Universit y of Vaccine Quad IM 3+ 00:00:00 [facility] Influenza Virus 2017-09-26 Completed Universit y of Vaccine Quad IM 3+ 00:00:00 [facility] Influenza Virus 2017-09-26 Completed Universit y of Vaccine Quad IM 3+ 00:00:00 [facility] Influenza Virus 2017-09-26 Completed Universit y of Vaccine Quad IM 3+ 00:00:00 [facility] Influenza Virus 2017-09-26 Completed Universit y of Vaccine Quad IM 3+ 00:00:00 [facility] Influenza Virus 2017-09-26 Completed Universit y of Vaccine Quad IM 3+ 00:00:00 [facility] ER Influenza Virus 2017-09-26 Completed Universit y of Vaccine Quad IM 3+ 00:00:00 [facility] Influenza Virus 2017-09-26 Completed Universit y of Vaccine Quad IM 3+ 00:00:00 [facility] Influenza Virus 2017-09-26 Completed Universit y of Vaccine Quad IM 3+ 00:00:00 [facility] Influenza Virus 2017-09-26 Completed Universit y of Vaccine Quad IM 3+ 00:00:00 [facility] ER Influenza Virus 2017-09-26 Completed Universit y of Vaccine Quad IM 3+ 00:00:00 [facility] ER Influenza Virus 2017-09-26 Completed Universit y of Vaccine Quad IM 3+ 00:00:00 [facility] ER Influenza Virus 2017-09-26 Completed Universit y of Vaccine Quad IM 3+ 00:00:00 [facility] Vital Signs Vital Name Observation Time Observation Value Comments Source Systolic blood 2023-04-08 143 mm[Hg] University of pressure 16:08:00 [facility] Diastolic blood 2023-04-08 91 mm[Hg] University o f pressure 16:08:00 [facility] Heart rate 2023-04-08 87 /min University 16:08:00 [facility] Body temperature 2023-04-08 35.89 [place] University of 16:08:00 [facility] Body height 2023-04-08 152.4 cm University of 16:08:00 [facility] Body weight 2023-04-08 60.51 kg University of 16:08:00 [facility] BMI 2023-04-08 26.05 kg/m2 University of 16:08:00 [facility] Heart rate 2023-03-27 86 /min University of 18:25:00 [facility] Respiratory rate 2023-03-27 15 /min University of 18:25:00 [facility] Oxygen saturation 2023-03-27 99 /min [facility] Arterial blood 18:25:00 [facility] by Pulse oximetry [place] Systolic blood 2023-03-27 124 mm[Hg] University of pressure 18:15:00 [facility] Diastolic blood 2023-03-27 95 mm[Hg] University o f pressure 18:15:00 [facility] Body temperature 2023-03-27 36 Y[place]is University of 17:52:00 [facility] Body height 2023-03-27 152.4 cm University of 14:46:00 [facility] Body weight 2023-03-27 59.421 kg University of 14:46:00 [facility] BMI 2023-03-27 25.58 kg/m2 University of 14:46:00 [facility] Systolic blood 2023-03-27 141 mm[Hg] University of pressure 14:47:00 [facility] Diastolic blood 2023-03-27 87 mm[Hg] University o f pressure 14:47:00 [facility] Heart rate 2023-03-27 95 /min University of 14:47:00 [facility] Body temperature 2023-03-27 36.67 [place] University of 14:46:00 [facility] Respiratory rate 2023-03-27 14 /min University of 14:46:00 [facility] Body height 2023-03-27 152.4 cm University of 14:46:00 [facility] Body weight 2023-03-27 59.421 kg University of 14:46:00 [facility] BMI 2023-03-27 25.58 kg/m2 University of 14:46:00 [facility] Oxygen saturation 2023-03-27 98 /min [facility] in Arterial blood 14:46:00 [facility] Pulse oximetry [place] Systolic blood 2023-03-25 131 mm[Hg] University of pressure 20:46:00 [facility] Diastolic blood 2023-03-25 87 mm[Hg] University o f pressure 20:46:00 [facility] Heart rate 2023-03-25 114 /min University of 20:46:00 [facility] Body temperature 2023-03-25 36.56 [place] University of 20:46:00 [facility] Body height 2023-03-25 152.4 cm University of 20:46:00 [facility] Body weight 2023-03-25 61.598 kg University of 20:46:00 [facility] BMI 2023-03-25 26.52 kg/m2 University of 20:46:00 [facility] Systolic blood 2023-03-16 134 mm[Hg] University of pressure 14:40:00 [facility] Diastolic blood 2023-03-16 90 mm[Hg] University o f pressure 14:40:00 [facility] Heart rate 2023-03-16 87 /min University of 14:40:00 [facility] Body temperature 2023-03-16 37.28 [place] University of 14:40:00 [facility] Respiratory rate 2023-03-16 16 /min University of 14:40:00 [facility] Body height 2023-03-16 152.4 cm University of 14:40:00 [facility] Body weight 2023-03-16 56.7 kg University of 14:40:00 [facility] BMI 2023-03-16 24.41 kg/m2 University of 14:40:00 [facility] Oxygen saturation 2023-03-16 99 /min University of in Arterial blood 14:40:00 [place] [facility] by Pulse oximetry Branch Systolic blood 2020-12-26 115 mm[Hg] University of pressure 09:00:00 [facility] Diastolic blood 2020-12-26 76 mm[Hg] University o f pressure 09:00:00 [facility] Heart rate 2020-12-26 78 /min University of 09:00:00 [facility] Body temperature 2020-12-26 36.22 Yarelis University of 09:00:00 [facility] Respiratory rate 2020-12-26 16 /min University of 09:00:00 [facility] Oxygen saturation 2020-12-26 100 /min University of in Arterial blood 09:00:00 [facility] dorothy by Pulse oximetry Branch Body weight 2020-12-26 53.978 kg University 00:27:00 [facility] BMI 2020-12-26 24.04 kg/m2 University of 00:27:00 [facility] Systolic blood 2020-12-26 115 mm[Hg] University of pressure 09:00:00 [facility] Diastolic blood 2020-12-26 76 mm[Hg] University o f pressure 09:00:00 [facility] Heart rate 2020-12-26 78 /min University of 09:00:00 [facility] Body temperature 2020-12-26 36.22 Yarelis University of 09:00:00 [facility] Respiratory rate 2020-12-26 16 /min University of 09:00:00 [facility] Oxygen saturation 2020-12-26 100 /min University of in Arterial blood 09:00:00 [place] [facility] by Pulse oximetry Branch Body weight 2020-12-26 53.978 kg University of 00:27:00 [facility] BMI 2020-12-26 24.04 kg/m2 University of 00:27:00 [facility] Systolic blood 2020-12-25 92 mm[Hg] University of pressure 22:30:00 [facility] Diastolic blood 2020-12-25 59 mm[Hg] University o f pressure 22:30:00 [facility] Heart rate 2020-12-25 91 /min University of 22:30:00 [facility] Respiratory rate 2020-12-25 14 /min University of 22:30:00 [facility] Oxygen saturation 2020-12-25 100 /min University of in Arterial blood 22:30:00 [place] [facility] Pulse oximetry [facility] Body temperature 2020-12-25 36.89 Yarelis University of 16:07:00 [facility] Body height 2020-12-25 149.9 cm University of 16:07:00 [facility] Body weight 2020-12-25 53.978 kg University of 16:07:00 [facility] BMI 2020-12-25 24.04 kg/m2 University of 16:07:00 [facility] Systolic blood 2020-12-25 92 mm[Hg] University of pressure 22:30:00 [facility] Diastolic blood 2020-12-25 59 mm[Hg] University o f pressure 22:30:00 [facility] Heart rate 2020-12-25 91 /min University of :30:00 [facility] Respiratory rate 2020-12-25 14 /min University of :30:00 [facility] Oxygen saturation 2020-12-25 100 /min University of in Arterial blood 22:30:00 [place] [facility] by Pulse oximetry Branch Body temperature 2020-12-25 36.89 Yarelis University of 16:07:00 [facility] Body height 2020-12-25 149.9 cm University of 16:07:00 [facility] Body weight 2020-12-25 53.978 kg University of 16:07:00 [facility] BMI 2020-12-25 24.04 kg/m2 University of 16:07:00 [facility] Systolic blood 2020-07-26 146 mm[Hg] University of pressure 20:54:00 [facility] Diastolic blood 2020-07-26 96 mm[Hg] University o f pressure 20:54:00 [facility] Heart rate 2020-07-26 91 /min University of 19:55:00 [facility] Body temperature 2020-07-26 36.78 Yarelis University of 19:55:00 [facility] Respiratory rate 2020-07-26 16 /min University of 19:55:00 [facility] Body height 2020-07-26 172.7 cm University of 19:55:00 [facility] Body weight 2020-07-26 54.148 kg University of 19:55:00 [facility] BMI 2020-07-26 18.15 kg/m2 University of 19:55:00 [facility] Systolic blood 2020-07-15 119 mm[Hg] University of pressure 23:00:00 [facility] Diastolic blood 2020-07-15 80 mm[Hg] University o f pressure 23:00:00 [facility] Heart rate 2020-07-15 79 /min University of 23:00:00 [facility] Respiratory rate 2020-07-15 20 /min University of 23:00:00 [facility] Oxygen saturation 2020-07-15 96 /min University of in Arterial blood 23:00:00 [facility] dorothy by Pulse oximetry Branch Body temperature 2020-07-15 37.11 Yarelis University of 18:21:00 [facility] Body weight 2020-07-15 52.164 kg University of 18:21:00 [facility] BMI 2020-07-15 17.49 kg/m2 University of 18:21:00 [facility] Body temperature 2020-06-12 36.89 Yarelis University of 02:50:00 [facility] Respiratory rate 2020-06-12 24 /min University of 02:50:00 [facility] Body weight 2020-06-12 50.803 kg University of 02:50:00 [facility] BMI 2020-06-12 17.03 kg/m2 University of 02:50:00 [facility] Oxygen saturation 2020-06-12 98 /min University of in Arterial blood 02:50:00 [place] [facility] Pulse oximetry [facility] Systolic blood 2020-06-12 141 mm[Hg] University of pressure 02:50:00 [facility] Diastolic blood 2020-06-12 105 mm[Hg] University o f pressure 02:50:00 [facility] Heart rate 2020-06-12 108 /min University of 02:50:00 [facility] Systolic blood 2020-03-22 131 mm[Hg] University of pressure 16:32:00 [facility] Diastolic blood 2020-03-22 81 mm[Hg] [place] o f pressure 16:32:00 [facility] Heart rate 2020-03-22 70 /min [facility] 16:32:00 [facility] Body temperature 2020-03-[address] [facility] 16:32:00 [facility] Respiratory rate 2020-03-22 18 /min [facility] 16:32:00 [facility] Oxygen saturation 2020-03-22 97 /min [facility] in Arterial blood 16:32:00 [facility] by Pulse oximetry [place] Body height 2020-03-22 [address] [facility] 09:15:00 height on [place] [facility] admission. Branch Body weight 2020-03-22 [address] [facility] 09:15:00 admission to [facility] Branch BMI 2020-03-22 18.42 kg/m2 [facility] 09:15:00 [facility] Procedures Procedure Date / Time Performing Clinician Source Performed MEDICATION CORRESPONDENCE 2023-03-29 05:01:00 Doctor Carmen, [facility] Name Medical [place] TIME OR 2023-03-27 17:22:00 Dyllan Weller [facility] (NON-REPORTABLE) Medical Branch [place] TIME OR 2023-03-27 17:22:00 Dyllan Weller [facility] (NON-REPORTABLE) [facility] [place] METACARPAL ORIF 2023-03-27 15:52:00 Yonas Fitzgerald [facility] NERVE BLOCK 2023-03-27 14:54:47 Dyllan Pak [facility] ASSIGNMENT OF BENEFITS 2023-03-27 14:19:17 Doctor Unassigned, [facility] [place] Medical Branch XR SCAPULA LEFT 2023-03-25 21:23:00 Dyllan [facility] XR SHOULDER 2+ VW LEFT 2023-03-25 21:23:00 Dyllan Weller [facility] XR HAND 3+ VW RIGHT 2023-03-25 21:23:00 Dyllan Weller [facility] ASSIGNMENT OF BENEFITS 2023-03-25 19:49:51 Doctor Unassigned, [facility] [place] Medical Branch XR HAND 3+ VW RIGHT 2023-03-16 15:18:48 Mojgan [facility] NOTICE OF PRIVACY 2023-03-16 14:35:26 Doctor Unassigned, [facility] PRACTICES [place] [facility] [place] CONSENT/REFUSAL FOR 2023-03-16 14:34:22 Doctor Unassigned, [facility] DIAGNOSIS AND TREATMENT [place] Medical Branch REFERRAL- 2023-03-04 05:01:00 Doctor Unanorberto, [facility] REQUEST/RESPONSE [place] [facility] [place] XR HAND 3+ VW LEFT 2020-12-26 09:21:04 Yonas Perea [facility] CT HEAD WO CONTRAST 2020-12-26 05:48:00 Yonas Perea [facility] ETHANOL 2020-12-25 21:54:00 Mynor Hollis [facility] ETHANOL 2020-12-25 20:21:00 Mynor Hollis [facility] POCT TEST 2020-12-25 18:07:00 Mynor Hollis [facility] ADC / LCC - DRUG SCREEN 2020-12-25 18:05:00 Mynor Hollis [facility] TRIAGE [facility] XR KUB 2020-12-25 17:06:45 Mynor Hollis [facility] COVID-19 (ID NOW RAPID 2020-12-25 16:55:00 Mynor Hollis [facility] TESTING) Medical [place] BASIC METABOLIC PANEL 2020-12-25 16:19:00 Mynor Hollis [facility] (NA, K, CL, CO2, GLUCOSE, Medica l Branch BUN, CREATININE, CA) ETHANOL 2020-12-25 16:19:00 Mynor Hollis [facility] CBC WITH DIFF 2020-12-25 16:19:00 Mynor Hollis [facility] ASSIGNMENT OF BENEFITS 2020-07-26 19:40:02 Doctor Unassigned, [facility] Name [place] ABDOMEN PELVIS W 2020-07-15 22:13:14 Dhruv Briggs [facility] CONTRAST Medical Branch POCT TEST 2020-07-15 18:47:00 Dhruv Briggs [facility] COMP. METABOLIC PANEL 2020-07-15 18:45:00 Dhruv Briggs [facility] ([id number]) Medical Branch CBC WITH DIFF 2020-07-15 18:45:00 Singer [facility] URINALYSIS 2020-07-15 18:45:00 Briggs, [facility] COVID-19 (ID NOW RAPID 2020-07-15 18:45:00 Singer Dhruv [facility] TESTING) Medical Branch CONSENT/REFUSAL FOR 2020-07-15 18:15:15 Doctor Unasschen, [facility] DIAGNOSIS AND TREATMENT [place] [facility] [place] XR CHEST 1 VW 2020-06-12 [facility]Y 2020-06-12 20:57:27 Doctor Unanorberto, [facility] PRACTICES [place] [facility] [place] CONSENT/REFUSAL FOR 2020-06-12 20:53:21 Doctor Unanorberto, [facility] DIAGNOSIS AND TREATMENT [place] [facility] ECHO ROUTINE W/DOPPLER 2020-03-22 14:40:35 Alex Thomas [facility] COLOR [facility] XR CHEST 1 VW COVID 2020-03-22 07:40:[address] [facility] CORONAVIRUS COVID-19 2020-03-22 07:16:00 Shun Benedict [facility] TESTING Medical Branch LIPASE 2020-03-22 07:14:00 Shun Benedict [facility] TROPONIN I 2020-03-22 07:14:00 Shun Benedict [facility] COMP. METABOLIC PANEL 2020-03-22 07:14:00 Shun Benedict [facility] ([id number]) Medical [place] CBC WITH DIFFERENTIAL 2020-03-22 07:14:00 Shun Benedict [facility] EKG-12 LEAD 2020-03-22 07:07:34 Shun Benedict [facility] EKG-12 LEAD 2020-03-22 07:01:19 Shun Benedict [facility] Plan of Care Planned Activity Planned Date Details Comments Source Future Scheduled 2023-08-[address] [facility] Test 00:00:00 (Season Ended) [code Medical Center = INFLUENZA VACCINE (Season Ended)] Future Scheduled 2023-08-[address] [facility] Test 00:00:00 (Season Ended) [code Medical Center = INFLUENZA VACCINE (Season Ended)] Future Scheduled 2023-08-[address] [facility] Test 00:00:00 (Season Ended) [code Medical Center = INFLUENZA VACCINE (Season Ended)] Future Scheduled 2022-12-[address] [facility] Test 00:00:00 (12+) [code = Medical Center DEPRESSION SCREENING (12+)] Future Scheduled 2022-12-[address] [facility] Test 00:00:00 (12+) [code = [facility] Center DEPRESSION SCREENING (12+)] Future Scheduled 2022-12-[address] [facility] Test 00:00:00 (12+) [code = [facility] Center DEPRESSION SCREENING (12+)] Future Scheduled 2022-08-[address] [facility] Test 00:00:00 (#1) [code = [facility] Center INFLUENZA VACCINE (#1)] Future Scheduled 2021-12-[address] [facility] Test 00:00:00 (12+) [code = [facility] Center DEPRESSION SCREENING (12+)] Future Scheduled [address] [facility] 00:[facility]:00 malignant neoplasm of Medica l Center cervix (procedure) [code = 289465290] Future Scheduled [address] [facility] Test 00:00:00 malignant neoplasm of Medica l Center cervix (procedure) [code = 616386397] Future Scheduled [address] [facility] Test 00:00:00 malignant neoplasm of Medica l Center cervix (procedure) [code = 696460416] Future Scheduled [address] [facility] Test 00:00:00 malignant neoplasm of Medica l Center cervix (procedure) [code = 496284395] Future Scheduled 1997 DTAP/TDAP/TD VACCINES [facility] 00:00:00 (1 - Tdap) [code = Medical C enter DTAP/TDAP/TD VACCINES (1 - Tdap)] Future Scheduled 1997 DTAP/TDAP/TD VACCINES [facility] 00:00:00 (1 - Tdap) [code = Medical C enter DTAP/TDAP/TD VACCINES (1 - Tdap)] Future Scheduled 1997 DTAP/TDAP/TD VACCINES [facility] 00:00:00 (1 - Tdap) [code = Medical C enter DTAP/TDAP/TD VACCINES (1 - Tdap)] Future Scheduled 1997 DTAP/TDAP/TD VACCINES [facility] 00:00:00 (1 - Tdap) [code = Medical C enter DTAP/TDAP/TD VACCINES (1 - Tdap)] Future Scheduled 1996 HEPATITIS C [facility]CRE[facility]ING [facility] 00:00:00 [code = HEPATITIS C Medical Center SCREENING] Future Scheduled 1996 HEPATITIS C [facility]CRE[facility] 00:00:00 [code = HEPATITIS C Medical Center SCREENING] Future Scheduled 1996 HEPATITIS C [facility] 00:00:00 [code = HEPATITIS C Medical Center SCREENING] Future Scheduled 1996 HEPATITIS C [facility]CRE[facility] 00:00:00 [code = HEPATITIS C Medical Center SCREENING] Future Scheduled [address] [facility] Test 00:00:00 Counseling and Medical Cente r Screening (12+) [code = Tobacco Cessation Counseling and Screening (12+)] Future Scheduled [address] [facility] Test 00:00:00 Counseling and Medical Cente r Screening (12+) [code = Tobacco Cessation Counseling and Screening (12+)] Future Scheduled [address] [facility] Test 00:00:00 Counseling and Medical Cente r Screening (12+) [code = Tobacco Cessation Counseling and Screening (12+)] Future Scheduled [address] [facility] Test 00:00:00 Counseling and Medical Cente r Screening (12+) [code = Tobacco Cessation Counseling and Screening (12+)] Future Scheduled 1979-02-22 COVID-19 VACCINE (#1) [facility] 00:00:00 [code = COVID-[address] VACCINE (#1)] Future Scheduled 1979-02-22 COVID-19 VACCINE (#1) [facility] 00:00:00 [code = COVID-[address] VACCINE (#1)] Future Scheduled 1979-02-22 COVID-19 VACCINE (#1) [facility] 00:00:00 [code = COVID-[address] VACCINE (#1)] Future Scheduled 1979-02-22 COVID-19 VACCINE (#1) [facility] 00:00:00 [code = COVID-[address] VACCINE (#1)] Encounters Start End Encounter Admission Attending Care Care Encounter Source Date/Time Date/Time Type Type Clinicians Facility Department ID 2021-09-30 Emergency [facility] [id number] Univers 19:08:09 [facility] 2021-09-29 Emergency [facility] [id number] Univers 12:33:46 [facility] 2021-09-29 Emergency [facility] [id number] Univers 06:13:55 [facility] 2021-09-29 Emergency [facility] [id number] Univers 06:12:05 [facility] 2020-[facility]-12 Inpatient [facility] [id number] [facility] 00:35:00 93 [facility] 2020-02-17 Inpatient [facility] [id number] [facility] 15:56:00 19 [facility] 2023-04-22 2023-04-22 [facility]patient [facility] [id number] Univers 10:20:00 10:20:00 YONAS [facility] 2023-04-08 2023-04-08 [facility] [id number] Univers 11:18:10 23:59:00 Encounter Yonas Arnold SPECIALTY [id number] ity of [facility] [id number] [facility] AT [id number] Md maryam GAMINO 9 [facility] 2023-04-08 2023-04-08 Outpatient It[facility] [id number] Univers 11:30:00 12:05:00 [facility] 2023-04-08 2023-04-08 Office [facility] [id number] Univers 11:30:00 12:05:00 Visit Yonas SPECIALTY [id number] ity of CARE [id number] [facility] AT [id number] Md maryam COVARRUBIASY 198 [facility] 2023-03-29 2023-03-29 Orders Doctor WARD [id number] Univers 00:00:00 00:00:00 Only Unassigned, DERIAN [id number] ity of [place] [facility] [id number] Jose [id number] [address] 2023-03-27 2023-03-[address] [facility] SOR [id number] Univers 09:19:00 13:42:00 YONAS ity of [facility] 2023-03-27 2023-03-27 Hospital [facility] [id number] Univers 09:19:00 13:42:00 Encounter Yonas Arnold [facility] [id number] ity of [place] [id number] [facility] [phone] [address] ([facility]) 2023-03-27 2023-03-27 Anesthesia Ashely Myrick [facility] 1.2.840 .114 [id number] Univers 11:08:00 12:53:00 Event Marlene-Antonio Jama SPECIALTY 3 [id number] ity of CARE [id number] [facility] AT [phone] Md dicblair GAMINO 020 [facility] 2023-03-27 2023-03-27 Surgery [facility] [id number] Univers 10:55:00 12:38:00 Yonas Arnold SPECIALTY [id number] ity of CARE [id number] [facility] AT [id number] Md maryam GAMINO 020 [facility] 2023-03-27 2023-03-27 Orders Doctor WARD [id number] Univers 00:00:00 00:00:00 Only Unassigned, DERIAN [id number] ity of [place] [facility] [id number] Jose as [id number] [address] 2023-03-25 2023-03-25 [facility] [id number] Univers 16:12:45 23:59:00 Encounter Yonas M SPECIALTY [id number] [id number] [phone] Md dicblair COVARRUBIASY 809 [facility] 2023-03-25 2023-03-25 [facility] 1.2.840.114 [id number] Univers 16:12:33 23:59:00 Encounter Yonas M SPECIALTY [id number] [id number] [place] [id number] Md dicblair COVARRUBIASY 809 [facility] 2023-03-25 2023-03-25 Outpatient R [facility] [id number] Univers 15:10:00 17:04:47 YONAS ity of [facility] 2023-03-25 2023-03-25 Office [facility] [id number] [id number] Univers 15:10:00 17:04:47 Visit Yonas M SPECIALTY [id number] [id number] [place] [id number] Md dicblair COVARRUBIASY 198 [facility] 2023-03-25 2023-03-25 [facility] 1.2.840.114 [id number] Univers 16:10:00 16:11:00 Encounter Yonas M SPECIALTY [id number] [id number] [place] [id number] Md dicblair COVARRUBIASY 809 [facility] 2023-03-25 2023-03-25 Orders Doctor WARD [id number] [id number] Univers 00:00:00 00:00:00 Only Unassigned, DERIAN [id number] ity of [place] [facility] [id number] Jose as [id number] [address] 2023-03-16 2023-03-16 Emergency X FILI, Mojgan [facility] ERT [id number] Univers 09:41:00 12:36:00 ity of [facility] 2023-03-16 2023-03-16 Emergency Mojgan Penn [facility] [id number] [id number] Univers 09:41:00 12:36:00 Loyda VELAZCO [id number] i ty of [id number] [place] [id number] [facility] 084 Branch 2023-03-04 2023-03-04 Orders Doctor SYLVIA 1.2.840.114 [id number] Univers 00:00:00 00:00:00 Only Unassigned, DERIAN [id number] [facility] [id number] Jose as [phone] [facility] 009 Branch 2021-11-16 2021-11-18 Inpatient ER [facility] Urology [id number] [facility] 02:50:00 15:40:00 CARLOS 2020-12-25 2020-12-26 Emergency Brit, TRAUMA [id number] 18:26:00 04:04:00 [facility] [id number] [id number] [id number] [facility] 2020-12-25 2020-12-26 Emergency Brit, TRAUMA [id number] Univers 18:26:00 04:04:00 [facility] [id number] [id number] [id number] [facility] 014 Branch 2020-12-25 2020-12-25 Emergency Harkey, [facility] [id number] 10:03:00 18:22:00 [facility] [id number] League [id number] [facility] [id number] [address] ([facility]) 2020-12-25 2020-12-25 Emergency Harkey, [facility] [id number] Univers 10:03:00 18:22:00 [facility] [id number] it y [id number] [place] [facility] [id number] [address] ([facility]) 2020-12-25 2020-12-25 Emergency X TELMA [facility] ERT [id number] Univers 10:03:00 18:22:00 MYNOR it[facility] 2020-08-17 2020-08-17 [facility] 1.2.840.114 [id number] 06:29:56 23:59:00 Encounter Roshunda R SPECIALTY [id number] CARE [id number] CENTER AT [id number] [address] 2020-08-17 2020-08-17 [facility] 1.2.840.114 [id number] Univers 06:29:56 23:59:00 Encounter Roshunda R SPECIALTY [id number] [id number] [id number] Md dical [address] 2020-08-17 2020-08-17 Outpatient R [facility] [id number] Univers 00:00:00 00:00:00 DKNDA ity o [facility] 2020-08-17 2020-08-17 Outpatient R [facility] [id number] Univers 00:00:00 00:00:00 DKNDA ity o f [facility] 2020-08-10 2020-08-10 Telephone [facility] [id number] 00:00:00 00:00:00 Roshunda R [employer] SAW OPERATOR [id number] REGIONAL [id number] MATERNAL [phone] & CHILD [address] [place] [address] 2020-08-10 2020-08-10 Telephone [facility] [id number] Univers 00:00:00 00:00:00 Roshunda R [employer] SAW OPERATOR [id number] ity of REGIONAL [id number] Jose as MATERNAL [id number] Med ical & CHILD [address] [place] [address] 2020-07-26 2020-07-26 Office [facility] 1.2.840.114 [id number] Univers 14:44:48 15:48:25 Visit Dalia Robbins [employer] SAW OPERATOR [id number] ity of [facility] [id number] Jose as MATERNAL [id number] Med ical & CHILD [address] [place] [address] 2020-07-26 2020-07-26 [facility] [id number] 612 Univers 14:00:00 14:00:00 DKDICK ity o f [facility] 2020-07-26 2020-07-26 Orders Doctor SYLVIA 1.2.840.114 [id number] Univers 00:00:00 00:00:00 Only Unassigned, DERIAN 350.1.13.10 ity of [place] [facility] 4.2.7.2.686 Jose as [id number] [address] 2020-07-15 2020-07-15 [facility] 1.2.878.172 [id number] Univers 13:25:00 19:02:00 Dhruv Velazco 350.1.13.10 i ty of [place] 4.2.7.2.686 [facility] [id number] [address] 2020-06-14 2020-06-14 Telephone SYLVIA Shi 1.2.840.114 [id number] Univers 00:00:00 00:00:00 Kaylah Lau DERIAN 350.1.13.10 i ty of [facility] 4.2.7.2.686 Jose as [phone] [facility] [address] [place] 2020-06-12 2020-06-12 Emergency [facility] 1.2.840.114 [id number] Univers 15:56:18 17:25:00 Andrew Velazco 350.1.13.10 i ty of [place] 4.2.7.2.686 [facility] [id number] [address] 2020-06-11 2020-06-11 Emergency [facility] 1.2.603.281 [id number] Univers 21:45:46 22:38:00 Dhruv Velazco 350.1.13.10 i ty of [place]7.2.686 [place] [id number] [place] [id number] [place] 2020-04-07 2020-04-07 Outpatient R NICOLE, [facility] [id number] Univers 13:30:00 13:30:00 ELO tucker o f [facility] 2020-04-07 2020-04-07 Telemedici [facility] 1.2.840.114 [id number] Univers 07:52:01 08:22:01 ne Visit Elo Oconnell Christian 350.1.13.10 ity of [place]7.2.[place] [phone] Md dical nal 044 [facility] 2020-04-04 2020-04-04 Emergency E TON MHMADAI MHBL 7504 BL 16:52:00 19:36:00 DAVID 2020-03-29 2020-03-29 Outpatient R [facility] [id number] Univers 09:40:00 09:40:00 CHRIS tucker o charlotte [facility] 2020-03-29 2020-03-29 Telemedici [facility] 1.2.840.114 [id number] Univers 07:59:20 08:14:20 ne Visit Kayleighabbie Velazco 350.1.13.10 ity of [place] [phone] Md dical nal 059 [facility] 2020-03-22 2020-03-22 Emergency Shun Benedict S [facility] 1.2.840 .114 [id number] Univers 02:10:55 13:40:00 Sanjay Lind 350.1.13.10 ity of [place] 4.2.7.2.686 [facility] [id number] [address] 2020-03-22 2020-03-22 Outpatient X DIOGO [facility] [id number] Univers 02:10:55 13:40:00 SANJAY tucker of [facility] 2019-08-07 2019-08-07 Emergency E MHCY MHCY 7503 MHCY 13:27:00 13:27:00 2019-04-08 2019-04-08 Emergency E MHCY MHCY 7502 MHCY 14:22:00 14:22:00 2019-03-31 2019-03-31 [facility] [address] [facility] 14:37:00 14:37:00 Results Test Description Test Time [...] recovery and/or detection times of some organisms.BLOOD [id number] 06:00:50 Test Item Value Reference Range Interpretation Comments CULTURE (BEAKER) (test No growth in 5 days code = 1095) SARS-COV2/RT-PCR ([facility])2021-11-18 08:28:01 Test Item Value Reference Range Interpretation Comments SARS-COV2/RT-PCR Negative Negative The SARS-Co V-2 target (test code = nucleic acids a re not 0661610) detected in thi s specimen. Negative result [...] sooner. Fact Sheet for Healthcare Providers: https://www.cepheid.co m/Documents/Xpert%20Xpress%20SARS%20CoV-2/Fact%20Sheets/302-3802%56HOKT-EUU-6%20 HEALTHCARE%20PROVIDERS%20FACT%20SHEET.pdf Fact Sheet for Healthcare Patients: https://www.Bvents/Documents/Xpert%20Xp ress%20SARS%20CoV-2/Fact%20Sheets/302-3801%63VCLU-VHZ-2%20PATIENT%20FACT%20SHEET .[id number] 06:04:17 Test Item Value Reference Range Interpretation Comments MAGNESIUM (BEAKER) 2.1 mg/dL 1.6-2.6 Specimen slightly (test code = 627) hemolyzed Surveyor Helper ID - NADEEM GOperator ID - NADEEM GBASIC METABOLIC [id number] 05:18:17 Test Item Value Reference Range Interpretation [...] S NOT APPLICABLE FOR DIALYSIS PATIEN TS. Surveyor Helper ID - NADEEM GCBC W/PLT COUNT & AUTO [id number] 04:53:25 Test Item Value Reference Range Interpretation [...] (BEAKER) (test code = 2801) BASIC METABOLIC [id number] 04:54:32 Test Item Value Reference Range Interpretation [...] S NOT APPLICABLE FOR DIALYSIS PATIEN TS. Surveyor Helper ID - PIAYA [id number] 04:54:32 Test Item Value Reference Range Interpretation Comments MAGNESIUM (BEAKER) (test code = 1.9 mg/dL 1.6-2.6 627) Surveyor Helper ID - PIAYA LCBC W/PLT COUNT & AUTO [id number] 04:16:32 Test Item Value Reference Range Interpretation [...] code = 2801) URINALYSIS W/ REFLEX URINE [id number] 09:09:42 Test Item Value Reference Range Interpretation [...] = 1521) SOURCE(BEAKER) (test code = 2795) Surveyor Helper ID - [auto]Surveyor Helper ID - techPREGNANCY SCREEN, [id number] 06:44:04 Test Item Value Reference Range Interpretation Comments TEST URINE (BEAKER) (test Negative code = 583) BASIC METABOLIC [id number] 06:03:02 Test Item Value Reference Range Interpretation [...] S NOT APPLICABLE FOR DIALYSIS PATIEN TS. Surveyor Helper ID - PIAYA LCBC W/PLT COUNT & AUTO [id number] 05:11:55 Test Item Value Reference Range Interpretation [...] 0-1 PERCENT (BEAKER) (test code = 2801) [id number] 22:12:00 Test Item Value Reference Range Interpretation Comments ALCOHOL (test code = 80 mg/dL 4362709290) CINDI (test code = Toxic Greater than or CINDI) equal to 80 mg/dL. NOTE: Whole blood values are approximately 10% to 15% lower than serum and plasma. [facility] 20:38:00 Test Item Value Reference Range Interpretation Comments ALCOHOL (test code = 108 mg/dL 4812137634) CINDI (test code = Toxic Greater than or CINDI) equal to 80 mg/dL. NOTE: Whole blood values are approximately 10% to 15% lower than serum and plasma. [facility] / [facility] - DRUG SCREEN [id number] 18:24:00 Test Item Value Reference Range Interpretation Comments BENZO U (test code = Negative Negative 3885671152) SANDRA U (test code = Negative Negative 6110801645) AMPHET (test code = Negative Negative 1501113388) THC (test code = Negative Negative 6571265511) METHADONE (test code = Negative Negative 6443916482) Meth U (test code = Negative Negative 4596065913) OPIATES (test code = Negative Negative 7836680811) Cocaine Metabolite (test Presumptive Positive Negative A code = 4544910409) PROPOXY (test code = Negative Negative 7036980598) Tric U (test code = Negative Negative 7400623079) PCP (test code = Negative Negative 1532774754) OXYCOD (test code = Negative Negative 1846457893) CINDI (test code = CINDI) Urine Drug [...] testing). Lab Interpretation (test Abnormal code = 20943-4) [facility] [id number] 18:07:00 Test Item Value Reference Range Interpretation Comments POCT PREG (test code = 1605) Negative On board controls acceptable with C Present Line (test code = 3574) Lab Interpretation (test code = Normal 87503-7) [facility] [id number] 17:36:18 Nonobstructive bowel gas pattern. Preliminary Report [...] reviewed this study and agree with the abovereport.[facility] (ID NOW RAPID TESTING)2020-12-25 17:13:00 Test Item Value Reference Range Interpretation Comments SARS-CoV-2 Rapid ID NOW Not Detected Not Detected (test code = 51269-5) CINDI (test code = CINDI) ID NOW COVID-19 Assay is an isothermal nucleic acid amplification test intended for the qualitative detection of nucleic acid from SARS-CoV-2 viral RNA in nasopharyngeal (GUARD LIEUTENANT) specimens. It is used under Emergency Use [...] indicated. Lab Interpretation Normal (test code = 46539-7) [facility]20[facility] 16:37:00 Test Item Value Reference Range Interpretation Comments ALCOHOL (test code = 196 mg/dL 4658427169) CINDI (test code = Toxic Greater than or CINDI) equal to 80 mg/dL. NOTE: Whole blood values are approximately 10% to 15% lower than serum and plasma. [facility] (NA, K, CL, CO2, GLUCOSE, BUN, CREATININE, CA)2020-12-25 16:37:00 Test Item Value Reference Range Interpretation Comments NA (test code = 144 mmol/L 135-145 6507582095) K (test code = 4.4 mmol/L 3.5-5 3181091386) CL (test code = 109 mmol/L 98-108 H 3986191136) CO2 TOTAL (test code = 22 mmol/L 23-31 L 2110971526) AGAP (test code = 2-16 4954144934) BUN (test code = 9 mg/dL 7-23 4100838696) GLUCOSE (test code = 103 mg/dL 70-110 9957361487) CREATININE (test code = 0.66 mg/dL 0.5-1.04 6698536432) CALCIUM (test code = 8.9 mg/dL 8.6-10.6 7390459264) eGFR Calculation mL/min/1.73m2 (Non-) (test code = 8808221675) eGFR Calculation mL/min/1.73m2 () (test code = 8055076197) CINDI (test code = CINDI) Association of [...] tests). Lab Interpretation Abnormal (test code = 03781-1) [facility] WITH [id number] 16:25:00 Test Item Value Reference Range Interpretation Comments WBC (test code = See_Comment H [Automated 9207-2) message] The sy stem which generated this result transmitted reference range : 4.30 - 11.10 10*3/?L. The reference range was not used to interpret this result as normal/abnormal . RBC (test code = See_Comment [Automated 341-8) message] The sy stem which generated this [...] RDW-SD (test code = 41.1 fL 39-49.9 32961-3) RDW-CV (test code = 12.3 % 12-15.5 788-0) PLT (test code = See_Comment H [Automated 777-3) message] The sy stem which generated this result transmitted reference range : 166 - 358 10*3/ ?L. The reference r carlos was not used to interpret this result as normal/abnormal . MPV (test code = 9.2 fL 9.5-12.9 L 96745-8) NRBC/100 WBC (test See_Comment [Automat ed code = 8110830445) message] The system which generated this result transmitted reference range : 0.0 - 10.0 /100 WBCs. The refer ence range was not u sed to interpret th is result as normal/abnormal . NRBC x10^3 (test code <0.01 See_Comment [Auto mated = 2112650974) message] The s ystem which generated this result transmitted reference range : 10*3/?L. The reference range was not used to interpret this result as normal/abnormal . GRAN MAT (NEUT) % 68.0 % (test code = 770-8) IMM GRAN % (test code 0.50 % = 3979242890) LYMPH % (test code = 20.5 % 736-9) MONO % (test code = 6.6 % 5905-5) EOS % (test code = 3.9 % 713-8) BASO % (test code = 0.5 % 706-2) GRAN MAT x10^3(ANC) 8.09 10*3/uL 1.88-7.09 H (test code = 1895149624) IMM GRAN x10^3 (test 0.06 10*3/uL 0-0.06 code = 1747720839) LYMPH x10^3 (test code 2.43 10*3/uL 1.32-3.29 = 731-0) MONO x10^3 (test code 0.78 10*3/uL 0.33-0.92 = 742-7) EOS x10^3 (test code = 0.46 10*3/uL 0.03-0.39 H 711-2) BASO x10^3 (test code 0.06 10*3/uL 0.01-0.07 = 704-7) Lab Interpretation Abnormal (test code = 10071-2) [facility] (ID NOW RAPID TESTING)2020-07-15 19:30:00 Test Item Value Reference Range Interpretation Comments SARS-CoV-2 Rapid ID NOW Not Detected Not Detected (test code = 70030-8) CINDI (test code = CINDI) ID NOW COVID-19 Assay is an isothermal nucleic acid amplification test intended for the qualitative detection of nucleic acid from SARS-CoV-2 viral RNA in nasopharyngeal (GUARD LIEUTENANT) specimens. It is used under Emergency Use [...] indicated. Lab Interpretation Normal (test code = 78537-0) [facility]. METABOLIC PANEL (65639)2020-07-15 19:20:00 Test Item Value Reference Range Interpretation Comments NA (test code = 136 mmol/L 135-145 7906371668) K (test code = 4.6 mmol/L 3.5-5 1759915838) CL (test code = 102 mmol/L 98-108 3895273792) CO2 TOTAL (test code = 21 mmol/L 23-31 L 4492844788) AGAP (test code = 2-16 3762470623) BUN (test code = 7 mg/dL 7-23 8169953674) GLUCOSE (test code = 102 mg/dL 70-110 2682328042) CREATININE (test code = 0.82 mg/dL 0.5-1.04 7297695498) TOTAL BILI (test code = 0.8 mg/dL 0.1-1.9 5786688866) CALCIUM (test code = 9.8 mg/dL 8.6-10.6 1084230893) T PROTEIN (test code = 8.4 g/dL 6.3-8.2 H 4103679946) ALBUMIN (test code = 4.8 g/dL 3.5-5 3241046855) ALK PHOS (test code = 102 U/L 34-122 1002188462) ALTv (test code = 25 U/L 5-35 1742-6) AST(SGOT) (test code = 41 U/L 13-40 H 2185634518) eGFR Calculation mL/min/1.73m2 (Non-) (test code = 6129382209) eGFR Calculation mL/min/1.73m2 () (test code = 6092293914) CINDI (test code = CINDI) Association of [...] tests). Lab Interpretation Abnormal (test code = 77580-9) [facility] [id number] 19:20:00 Test Item Value Reference Range Interpretation Comments APPEARANCE (test code = Hazy Clear A 1320453626) COLOR (test code = Yvonne Yellow A 6052299005) PH (test code = 4.8-8.0 6686345167) SP GRAVITY (test code = 1.003-1.030 3289516962) GLU U QUAL (test code = Normal Normal 0652018897) BLOOD (test code = Negative Negative 2505591007) KETONES (test code = 5 mg/dL Negative A 9905083968) PROTEIN (test code = 30 mg/dL Negative A 2887-8) UROBILIN (test code = 2.0 mg/dL Normal A 0133917869) BILIRUBIN (test code = Negative Negative 9008740339) NITRITE (test code = Negative Negative 0301630110) LEUK SHIRLEY (test code = 25/uL Negative A 1458399247) RBC/HPF (test code = See_Comment [Autom ated message] 1176488402) The system [employer] generated this result transmit fatemeh reference range : 0 - 3 HPF. The refe rence range was not u sed to interpret th is result as normal/abnormal . WBC/HPF (test code = See_Comment [Autom ated message] 2247728250) The system [employer] generated this result transmit fatemeh reference range : 0 - 5 HPF. The refe rence range was not u sed to interpret th is result as normal/abnormal . BACTERIA (test code = Few Negative A 7249207594) MUCOUS (test code = Moderate Negative LPF A 6967055618) SQ EPITH (test code = HPF 3536921667) HYAL CAST (test code = See_Comment H [Aut omated message] 7735912303) The system [employer] generated this result transmit fatemeh reference range : <=2 LPF. The refere nce range was not u sed to interpret th is result as normal/abnormal . Lab Interpretation (test Abnormal code = 74815-7) [facility] WITH [id number] 19:07:00 Test Item Value Reference Range Interpretation [...] (test code = 38.5 fL 39-49.9 L 04999-2) RDW-CV (test code = 11.9 % 12-15.5 L 788-0) PLT (test code = See_Comment [Automated 777-3) message] The system which generated this result transmit fatemeh reference range : 166 - 358 10*3/ ?L. The reference range was not u sed to interpret th is result as normal/abnormal . MPV (test code = 9.5 fL 9.5-12.9 27204-1) NRBC/100 WBC (test See_Comment [Automat ed code = 3362193601) message] The system which generated this result transmit fatemeh reference range : 0.0 - 10.0 /100 WBCs. The reference range was not used to interpret this result as normal/abnormal . NRBC x10^3 (test code <0.01 See_Comment [Auto mated = 4741282330) message] The system which generated this result transmit fatemeh reference range : 10*3/?L. The reference range was not used to interpret this result as normal/abnormal . GRAN MAT (NEUT) % 79.2 % (test code = 770-8) IMM GRAN % (test code 0.40 % = 1689432415) LYMPH % (test code = 12.9 % 736-9) MONO % (test code = 5.2 % 5905-5) EOS % (test code = 1.9 % 713-8) BASO % (test code = 0.4 % 706-2) GRAN MAT x10^3(ANC) 11.12 10*3/uL 1.88-7.09 H (test code = 0196418675) IMM GRAN x10^3 (test 0.05 10*3/uL 0-0.06 code = 9838675727) LYMPH x10^3 (test code 1.81 10*3/uL 1.32-3.29 = 731-0) MONO x10^3 (test code 0.73 10*3/uL 0.33-0.92 = 742-7) EOS x10^3 (test code = 0.27 10*3/uL 0.03-0.39 711-2) BASO x10^3 (test code 0.05 10*3/uL 0.01-0.07 = 704-7) Lab Interpretation Abnormal (test code = 19971-5) [facility] [id number] 18:47:00 Test Item Value Reference Range Interpretation Comments POCT PREG (test code = 1605) negative On board controls acceptable with present C Line (test code = 3574) POCT PREG LOT # (test code = 3575) [id number] POCT PREG TEST DATE (test code = 3576) Lab Interpretation (test code = Normal 85918-5) [facility] 1 [id number] 22:08:34 No acute cardiopulmonary process. Preliminary Report [...] Cholecystectomy clips. [facility], Radiant Results Inft User - 06/12/2020 5:09 [...] this study and agree with theabove report. [facility] 1 VW [id number] 12:56:21 1. No acute intrathoracic abnormality, specifically no detectableradiographic findings to suggest COVID-19 pneumonia. Disclaimer: Generally, the findings on chest imaging in COVID-19 are notspecific, and overlap with other infections, including influenza, H1N1,SARS and MERS.According to the Centers for Disease Control (CDC) and the [employer], viral testing remains the only [...] Centers for Disease Control (CDC) and the [employer], viral testing remains the only specific method of diagnosiseven if CXR or CT findings are suggestive of COVID-19. Preliminary Report Dictated by Resident: Margy Ocasio MD.,have reviewed this study and agree with theabove report.[facility] Center[facility]. METABOLIC PANEL (27675)2020-03-22 08:04:00 Test Item Value Reference Range Interpretation Comments NA (test code = 138 mmol/L 135-145 6727218895) K (test code = 3.5 mmol/L 3.5-5 3238983547) CL (test code = 105 mmol/L 98-108 9074557668) CO2 TOTAL (test code = 22 mmol/L 23-31 L 4456921504) AGAP (test code = 2-16 9527914769) BUN (test code = 7 mg/dL 7-23 6660273839) GLUCOSE (test code = 99 mg/dL 70-110 2490866231) CREATININE (test code = 0.74 mg/dL 0.5-1.04 5319642898) TOTAL BILI (test code = 0.5 mg/dL 0.1-1.2 8365629103) CALCIUM (test code = 8.5 mg/dL 8.6-10.6 L 2915878091) T PROTEIN (test code = 6.7 g/dL 6.3-8.2 4097699547) ALBUMIN (test code = 4.1 g/dL 3.5-5 5188193505) ALK PHOS (test code = 74 U/L 34-122 6896639401) ALTv (test code = 32 U/L 5-35 1742-6) AST(SGOT) (test code = 54 U/L 13-40 H 5435030271) eGFR Calculation mL/min/1.73m2 (Non-) (test code = 8027235829) eGFR Calculation mL/min/1.73m2 () (test code = 8125166162) CINDI (test code = CINDI) Association of [...] tests). Lab Interpretation Abnormal (test code = 51294-1) [facility] CenterAMAURYDAVID [id number] 07:57:00 Test Item Value Reference Range Interpretation Comments TROPONIN I (test <0.012 See_Comment [Automated code = 6148105502) message] The system which generated this result [...] ? Lab Interpretation Normal (test code = 46882-3) [facility] CenterCORON[facility]IRUS COVID-19 [id number] 07:56:00 Test Item Value Reference Range Interpretation Comments SARS-CoV-2 (test code = Not Detected Not Detected 53728-2) CINDI (test code = CINDI) ID NOW COVID-19 Assay is an isothermal nucleic acid amplification test intended for the qualitative detection of nucleic acid from SARS-CoV-2 viral RNA in nasopharyngeal (GUARD LIEUTENANT) specimens. It is used under Emergency Use [...] indicated. Lab Interpretation Normal (test code = 19153-1) [facility] CenterLIPASE, [id number] 07:45:00 Test Item Value Reference Range Interpretation Comments LIPASE (test code = 0600814719) 58 U/L 0-220 Lab Interpretation (test code = Normal 66774-7) [facility] CenterCB WITH [id number] 07:30:00 Test Item Value Reference Range Interpretation Comments WBC (test code = See_Comment [Automated 6670-2) message] The sy stem which generated this result transmitted reference range : 4.30 - 11.10 10*3/?L. The reference range was not used to interpret this result as normal/abnormal . RBC (test code = See_Comment [Automated 117-8) message] The sy stem which generated this [...] RDW-SD (test code = 39.8 fL 39-49.9 53651-2) RDW-CV (test code = 12.1 % 12-15.5 788-0) PLT (test code = See_Comment [Automated 777-3) message] The sy stem which generated this result transmitted reference range : 166 - 358 10*3/ ?L. The reference r carlos was not used to interpret this result as normal/abnormal . MPV (test code = 9.2 fL 9.5-12.9 L 40387-7) NRBC/100 WBC (test See_Comment [Automat ed code = 8720060115) message] The system which generated this result transmitted reference range : 0.0 - 10.0 /100 WBCs. The refer ence range was not u sed to interpret th is result as normal/abnormal . NRBC x10^3 (test code <0.01 See_Comment [Auto mated = 4349658818) message] The s ystem which generated this result transmitted reference range : 10*3/?L. The reference range was not used to interpret this result as normal/abnormal . GRAN MAT (NEUT) % 62.2 % (test code = 770-8) IMM GRAN % (test code 0.50 % = 2885776163) LYMPH % (test code = 24.6 % 736-9) MONO % (test code = 7.7 % 5905-5) EOS % (test code = 4.5 % 713-8) BASO % (test code = 0.5 % 706-2) GRAN MAT x10^3(ANC) 6.71 10*3/uL 1.88-7.09 (test code = 6376856417) IMM GRAN x10^3 (test 0.05 10*3/uL 0-0.06 code = 6318534161) LYMPH x10^3 (test code 2.65 10*3/uL 1.32-3.29 = 731-0) MONO x10^3 (test code 0.83 10*3/uL 0.33-0.92 = 742-7) EOS x10^3 (test code = 0.49 10*3/uL 0.03-0.39 H 711-2) BASO x10^3 (test code 0.05 10*3/uL 0.01-0.07 = 704-7) Lab Interpretation Abnormal (test code = 30199-3) [facility] CenterBASIC MET[facility]OLIC [id number] 17:09:00 Test Item Value Reference Range Interpretation [...] = ALKP) Specimen comments: ccSpecimen comments: SEPSIS [id number] 17:09:00 Test Item Value Reference Range Interpretation Comments LIPASE (test code = LIP) 318 Unit/L 114-286 H Specimen comments: ccSpecimen comments: SEPSIS [id number] 17:09:00 Test Item Value Reference Range Interpretation [...] = ALKP) Specimen comments: ccSpecimen comments: SEPSIS [id number] 17:03:00 Test Item Value Reference Range Interpretation Comments LIPASE (test code = LIP) 318 Unit/L 114-286 H Specimen comments: ccSpecimen comments: SEPSIS [id number] 17:03:00 Test Item Value Reference Range Interpretation [...] PROCAL) Specimen comments: ccSpecimen comments: SEPSIS WORKUPLACTIC [id number] 17:01:00 Test Item Value Reference Range Interpretation Comments LACTIC ACID (test code = LACT) 1.4 mmol/L 0.4-2.0 N Specimen comments: ccBASIC METABOLIC [id number] 16:58:00 Test Item Value Reference Range Interpretation [...] = ALKP) Specimen comments: ccSpecimen comments: SEPSIS [id number] 16:58:00 Test Item Value Reference Range Interpretation Comments LIPASE (test code = LIP) 318 Unit/L 114-286 H Specimen comments: ccSpecimen comments: SEPSIS [id number] 16:58:00 Test Item Value Reference Range Interpretation [...] PROGRESS, RESUL T TO FOLLOW. HCG SERUM [id number] 16:55:00 Test Item Value Reference Range Interpretation Comments HCG SERUM QUAL (test code = HCGQL) NEG SCREEN NEG Specimen comments: SEPSIS WORKUP- XR CHEST 2 [id number] 16:55:00 FAX: Julia Sanz [phone] [place]: St: PRE Patient Name: JAIDEN PLATA Unit No: [id number] EXAMS: CPT CODE: [id number] XR CHEST 2 V 79100 PA and lateral views of the chest Clinical indication: Cough and feversLocation R 16 COMPARISON: None The lungs are clear. The heart, mediastinum and bony structures are un remarkable. Bilateral breast implants are in place. Impression: Normal at 1655 Reported and signed by: Apolonia Colon MD CC: Julia CARDENAS Dictated Date/Time: 02/17/2020 (1654)Technologist: Meek Moss Transcribed Date/Time: 02/17/2020 (1654) By: [email or web address] Orig Print D/T: S: 02/17/2020 (1657) KILLIAN Crawford NAME: JAIDEN PLATA [address] [place] [address] PHYS: Julia Rasm[place], [place] [address] : 1980AGE: 39 SEX: F LOC: [facility] PHONE #: [phone] EXAM DATE: 02/17/2020 STATUS:PRE ER FAX #: [phone] RAD NO: DC Dt: PAGE 1 Signed ReportUA RFLX MICR CULT IF [id number] 16:51:00 Test Item Value Reference Range Interpretation [...] Sepsis-no other srcUA RFLX MICR CULT IF [id number] 16:47:00 Test Item Value Reference Range Interpretation [...] for culture: Sev. Sepsis-no other srcCBC W/AUTO [id number] 16:45:00 Test Item Value Reference Range Interpretation [...] K/mm3 0.0-0.05 N NRBC#) Specimen comments: cc Notes Date/Time Note Provider Source 2020-05-12 01:03:00-00:00 [facility] ([facility]) EMERGENCY PROVIDER REPORT REPORT#:[id number] REPORT STATUS: Signed DATE:05/12/20 TIME: 010 PATIENT: JAIDEN PLATA UNIT #: [id number] ROOM/BED: AGE: 39 SEX: F PCP PHYS: No Primary or Family Ph ysician SERVICE AUTHOR: Parveen Poole MD * ALL edits or amendments must be made on the [employer]/computer document * HPI-Syncope General Initial Greet Date/Time 05/12/20 0054 Presentation Chief Complaint Became unresponsive Free Text HPI Notes Free Text HPI Notes Patient presents with anxiet y, syncopal episode, left shoulder pain after being arrested. She was arrested while in a mo tor vehicle. Officer states that after rest patient started hyperve ntilating, clenched her eyes shut, would not respond to him. With stimuli from EMS or police patient would open eyes, but when not stimulated would clench them shut and turned varun y. At this time patient is awake, alert, angry. She denies fever, c ough, chest pain, shortness of breath, weakness, numbness. She notes history of an abno rmal heart rhythm which required "shocks" at a different hospital [facility] months ago. Review of Systems ROS Statements All systems rev neg except as marked. Focused Review of Systems Respiratory Denies: Cough, non-productive, Cough, productive , Shortness of breath. Cardiovascular Denies: Chest pain, Syncope. GI Denies: Abdominal pain, Diarrhea, Nausea, Vomiti ng. Free Text ROS Notes Free Text ROS Notes see hpi for positive ros elements Past Medical History - Adult Stated Complaint ANXIETY/LT SHOULDER PAIN Allergies Coded Allergies: Sulfa (Sulfonamide Antibiotics) (Intermediate, r jeane chest tightness 02/17/20) codeine (Intermediate, rash chest tightness 01/30 07/21) meperidine HCl (From DEMEROL ) (Intermediate, vomiting chest tightness 02/17/20) Home Medications Reported Medications No Known Home Medications Pt reports no significant: Past medical history, Past surgical history Alcohol Use Alcohol use Drug Use Denies recreational drugs (uses drugs) Smoking status for patients 13 years old or olde r: Current some day smoker Physical Exam Vital Signs Vital Signs First Documented: Result Date Time Pulse Ox 99 05/12 0040 B/P 146/87 05/120 B/P Mean 106 05/12 0040 O2 Delivery Room air 05/12 40 Temp 98.3 05/12 40 Pulse 105 05/12 0040 Resp 16 05/12 40 Last Documented: Result Date Time Pulse Ox 99 05/12 0040 B/P 146/87 05/12 40 B/P Mean 106 05/12 40 O2 Delivery Room air 05/12 40 Temp 98.3 05/12 40 Pulse 105 05/12 40 Resp 16 05/12 40 Review of Vital Signs Reviewed Focused PE General/Const Text/Dict Notes tearful MS Head Head Normocephalic Eyes Eyes PERRL, EOMI, Conjunctiva NL Ears/Nose/Throat Ears/Nose/Throat Airway patent, Mucous membrane s moist, Pharynx NL MS Neck Neck Supple, Full range of motion, No swelling, Non-tender Resp/Chest Respiratory/Chest Breath sounds NL, Breath soun ds = bilat, No respiratory distress, No rales, No rhonchi, No wheezing Cardiovascular Cardiovascular Heart rate NL, Regular rhythm, H eart sounds NL, No murmurs, Cap refill not delayed, Peripheral circulation N L Abdomen/GI Abdomen/GI Soft, Non-tender, No guarding, No re bound MS Back Back Inspection NL, Non-tender, No CVA tenderne ss MS Lower Extrem Lower Ext/Pelvis/MS Inspection NL, No swelling, Non-tender, No erythema, No deformity, Neurologic intact, Vascular intact, N o edema Skin Skin Color NL, Warm, Dry, Turgor NL Neurologic Neurologic Oriented X3, Speech NL, No m otor deficits, No sensory deficits, CN II - XII intact, Cerebellar NL Interpretation Diagnostics ECG #1 Interpretation Text/Dict Note My interpretation of EKG: no rmal sinus rhythm, normal rate, no ischemic changes, normal QRS, normal QTC Re-Evaluation MDM Free Text MDM Notes Free Text MDM Notes Patient is well-appearing, no distress. EKG perf ormed in ER was completely normal. No evidence of arrhythmia. Vital signs a re stable. Patient is ambulatory, has no evidence of any dangerous pat hology. She is safe for discharge to law enforcement. Patient does under stand she needs to follow-up closely the primary care doc tor in relation to the heart condition she described to me. Strict return precautions and follow-up mirela randhawa. Patient Discharge Departure Vital Signs/Condition Vital Signs First Documented: Result Date Time Pulse Ox 99 05/12 40 B/P 146/87 05/12 40 B/P Mean 106 05/12 40 O2 Delivery Room air 05/12 40 Temp 98.3 06/11 0040 Pulse 105 05/12 0040 Resp 16 05/120 Last Documented: Result Date Time Pulse Ox 99 05/12 40 B/P 146/87 05/12 40 B/P Mean 106 05/12 40 O2 Delivery Room air 05/12 40 Temp 98.3 05/120 Pulse 105 05/12 0040 Resp 16 05/120 All vital signs available at the time of this en try have been reviewed. Clinical Impression Clinical Impression Primary Impression: Anxiety Secondary Impressions: Syncope Discharge/Care Plan (Auto) Prescriptions Current Visit Scripts No Known Home Medications Referrals No Primary or Family Physician (PCP) Electronically Signed by Parveen Poole MD on 05/12 at 1424 RPT #:[id number] END OF REPORT 2020-02-17 16:01:00-00:00 [facility] ([facility]) EMERGENCY PROVIDER REPORT REPORT#:[id number] REPORT STATUS: Signed DATE:02/17/20 TIME: 1601 PATIENT: JAIDEN PLATA UNIT #: [id number] ROOM/BED: AGE: 39 SEX: F PCP PHYS: No Primary or Family Ph ysician SERVICE AUTHOR: Julia Buckner * ALL edits or amendments must be made on the [employer]/computer document * [id number] Illness General Confirmed Patient Yes Initial Greet Date/Time 02/17/20 1559 Assumed Care at Time 1601 Date 02/17/20 PCP none. Presentation Chief Complaint Body aches, Chills, Cough, Fever, Nasal congestion, Sore throat Hx Obtained From Patient Onset Occurred Days ago (2) Symptom Duration Since onset Progression since Onset Gradually worsening Context of Onset unsure. Location Chest (ribs), Back upper, sorethroat. Quality Aching, Pleuritic Radiation Does not radiate Severity: Current Severe Associated with Reports: Chest pain (pleurit ic), Cough, Fever (105 today ), Nausea, Rhinorrhea, Shortness of breath. Denies: Abdominal pain, Ano rexia, Diarrhea, Earache, Headache, Myalgia, Neck pain, Rash, UTI symptoms , Vomiting. Associated Other postnasal drainage. Exacerbated by Nothing Relieved by Nothing Context Related History Denies: Pneumonia, Asthma, COPD, Immunosuppressi on. Immunization Status General Unknown Recent Healthcare No recent doctor visit, No rec ent hospitalization /Sexual Hx Last Menstrual Period 01/21/20 Additional Context she denies any travel within or out of [facility] country in the last 4 weeks,and she denies any direct contact with any one with COVI D 19 positive. Free Text HPI Notes Free Text HPI Notes 39-year-old female presents to the ER complainin g of body aches, sore throat, nasal congestion, postnasal drainage, that has been going on for the last 2 days , gradually getting worse, t he patient also reports associated with shortness of breath, which is worse on taking deep breaths an d pleuritic pain, the patient reports she has rib pain which is radiating to t he back. The patient does report that she had vomiting x2 yesterday, she has had no vomiting since this morning. The patient states that she had a temperature of 102 this morning, she took Motrin 800 mg at 2:45 PM today. The patient denies any ear pain, abdomin al pain, UTI symptoms, any vomiting or diarrhea today, any dyspnea on exertion, palpitations, ear pain, headaches, neck pain, neck stiffness,, difficulty eating or swal lowing. Review of Systems ROS Statements All systems rev neg except as marked. Focused Review of Systems Constitutional Reports: Chills, Fever. Eyes Denies: Blurred bilat, Eye pain bilat. Ears/Nose/Throat Reports: Nasal congestion, Sore throat. Denies: Ear ringing bilat, Earache bilat. Respiratory Reports: Cough, non-producti ve, Pleuritic pain, Shortness of breath (on coughing ). Denies: Cough, productive, Dyspnea on exertion, Hemoptysis, Parox nocturnal dyspnea, Wheezing. Cardiovascular Denies: Chest pain, Dyspnea on exertion, Edema, Orthopnea, Palpitations, Parox nocturnal dyspnea, Syncope. GI Reports: Nausea. Denies: Abdominal pain, Constip ation, Diarrhea, Vomiting. Musculoskeletal Reports: Back pain, Myalgia. Denies: Joint pain, Joint swelling. Skin Denies: Contusion, Diaphoresis, Erythema, Swelli ng. Neurologic Denies: Dizziness, Focal wea kness, Generalized weakness, Headache, Lightheaded, Numbness, Problem walking. Past Medical History - Adult Stated Complaint FEVER, SOB, SORE THROAT, BODY A CHES X 2 DAYS Allergies Coded Allergies: Sulfa (Sulfonamide Antibiotics) (Intermediate, r jeane chest tightness 02/17/20) codeine (Intermediate, rash chest tightness 01/30 07/21) meperidine HCl (From DEMEROL ) (Intermediate, vomiting chest tightness 02/17/20) Home Medications Reported Medications No Known Home Medications Discontinued Reported Medications VIT/FE FUMARATE/FA ( Multivitam in w/ Iron) 1 TAB PO DAILY Ferrous Sulfate (Slow Fe) 160 MG PO BID RANITIDINE (ZANTAC) 150 MG PO BID Review of Nursing Notes Unavailable at this time Pt reports no significant: Past medical history, Past surgical history, Family history Smoking status for patients 13 years old or olde r: Current every day smoker Physical Exam Vital Signs Vital Signs First Documented: Result Date Time Pulse Ox 97 02/16 1559 B/P 151/97 02/16 1559 B/P Mean 115 02/16 1559 O2 Delivery Room air 02/16 1559 Temp 100.6 02/16 1559 Pulse 119 02/16 1559 Resp 18 02/16 1559 Last Documented: Result Date Time Pulse Ox 98 02/16 1800 B/P 118/71 02/16 1800 B/P Mean 86 02/16 1800 O2 Delivery Room air 02/16 1800 Temp 99.3 02/16 1800 Pulse 86 02/16 1800 Resp 16 02/16 1800 Review of Vital Signs Reviewed Focused PE General/Const General/Const Awake, Alert, No acute di stress, Well developed, Well hydrated, Well nourished, Cooperative, Not toxic appearing Appearance/Presentation Uncomfortable. Eyes Eyes Atraumatic, PERRL, EOMI, No nystagmus, No periorbital redness, No periorbital swelling, No photophobia Ears/Nose/Throat Ears/Nose/Throat Atraumatic, Airway patent, Muc ous membranes moist, No peritonsillar abscess, No po oling of secretions, No trismus, Tympanic membs NL, Ext aud canal NL, Mastoid area NL, No sinus tend erness, No facial swelling Pharynx/Tonsils/Uvula Pharyngeal erythema. Nose Discharge nasal clear. MS Neck Neck Atraumatic, Supple, No meningismus , Full range of motion, No adenopathy, No swelling, Non-tender, No midline vertebral te nd Resp/Chest Respiratory/Chest Atraumatic, Breath sounds NL, Breath sounds = bilat, No respiratory distress, No rales, No rhonchi, No w heezing, No retractions, No stridor, No chest tenderness Cardiovascular Cardiovascular Regular rhythm, Heart sounds NL, No murmurs, Cap refill not delayed Abdomen/GI Abdomen/GI Soft, Non-tender, No guarding, No re bound, BS normoactive Lymphatic Lymphatic No cervical adenopathy Skin Skin Atraumatic, Color NL, No rash, War m, Dry, Intact, Turgor NL, No swelling Neurologic Neurologic Oriented X3, Speech NL, No motor def icits, Memory NL, Gait NL Interpretation Diagnostics Lab Results Interpretation Considerations Independ review imaging Results Laboratory Tests 02/17/20 161: [Embedded Image Not Available] Laboratory Tests: 02/16 02/16 161 1615 Chemistry Lactic Acid (0.4 - 2.0 mmol/L) 1.4 Serum , Qual (NEG SCREEN) NEG 02/16 161 Chemistry Sodium (133 - 144 mmol/L) 135.0 Potassium (3.5 - 5.1 mmol/L) 3.6 Chloride (95 - 105 mmol/L) 104 Carbon Dioxide (21 - 32 mmol/L) 23 Anion Gap (4.0 - 15.0 GAP calc) 8.0 BUN (7 - 18 MG/DL) 9 Creatinine (0.55 - 1.30 MG/DL) 0.82 Glucose (70 - 110 MG/DL) 109 Calcium (8.5 - 10.1 MG/DL) 7.9 L Total Bilirubin (0.00 - 1.00 MG/DL) 0.35 Direct Bilirubin (0.00 - 0.30 MG/DL) 0.14 Indirect Bilirubin (0.2 - 1.3 MG/DL) 0.21 AST (15 - 37 Unit/L) 28 ALT (12 - 78 Unit/L) 28 Total Alk Phosphatase (45 - 117 Unit/L) 85 Troponin I (0.000 - 0.045 NG/ML) < 0.015 Total Protein (6.4 - 8.2 G/DL) 7.4 Albumin (3.4 - 5.0 G/DL) 3.5 Lipase (114 - 286 Unit/L) 318 H Procalcitonin (0.00 - 0.10 NG/ML) 0.16 H Specimen Appearance (1 NORMAL Index/DL) 1 LATOYA L <2 MG Specimen Hemolysis (1 NORMAL Index/DL) 1 NORMAL <10 MG Hematology WBC (4.1 - 12.1 K/mm3) 6.0 RBC (3.8 - 5.5 M/mm3) 4.73 Hgb (10.6 - 15.8 G/DL) 15.3 Hct (31.8 - 47.4 %) 43.3 MCV (80.1 - 101.1 fL) 91.5 MCH (25.3 - 35.3 pg) 32.3 MCHC (32.7 - 35.1 G/DL) 35.3 H RDW (12.2 - 16.4 %) 12.3 Plt Count (155 - 337 K/mm3) 244 MPV (6.8 - 11.2 fL) 9.8 Gran % (37.8 - 82.6 %) 66.1 Lymph % (Auto) (14.1 - 45.4 %) 19.1 [place] % (Auto) (2.5 - 11.7 %) 8.0 Eos % (Auto) (0.0 - 6.2 %) 6.0 Baso % (Auto) (0.0 - 2.1 %) 0.3 Gran # (2.0 - 13.7 k/mm3) 3.98 Lymph # (Auto) (0.6 - 3.8 K/mm3) 1.15 [place] # (Auto) (0.11 - 0.59 K/mm3) 0.48 Eos # (Auto) (0.0 - 0.4 K/mm3) 0.36 Baso # (Auto) (0.0 - 0.1 K/mm3) 0.02 Immature Gran % (0.0 - 2.0 %) 0.5 Nucleated RBC % (0.0 - 1.0 /100WBC%) 0.0 Nucleated RBCs # (0.0 - 0.05 K/mm3) 0.00 Serology Group A Strep Antibody (NEG SCREEN) NEG Urines Urine Color (YELLOW DESCRIPT) YELLOW Urine Appearance (CLEAR DESCRIPT) HAZY Urine pH (4.6 - 8.0 pH UNITS) 6.0 Ur Specific [place] (1.001 - 1.035 SG) 1.009 Urine Protein (<30 (1+) mg/dL) NEGATIVE (0) Urine Glucose (UA) ((NEG) 0 mg/dL) NEGATIVE (0) Urine Ketones ((NEG) 0 mg/dL) 0 (NEG) Urine Blood ((NEG) 0 mg/dL) NEGATIVE (0.00) Urine Nitrite (NEG SCREEN) NEGATIVE (0) Urine Bilirubin ((NEG) 0 mg/dL) NEGATIVE (0.0) Urine Urobilinogen (<2.0 (1+) mg/dL) 2 (1+) H Ur Leukocyte Esterase ((NEG) 0 Leuk/mcL) NEGATI VE (0) Urine RBC (0 - 3 #RBC/HPF) 0-3 Urine WBC (0 - 3 #WBC/HPF) 0-3 Ur Squamous Epith Cells (NONE - SQepi /HPF) MOD ERATE >10 Amorphous Sediment (NONE - FEW #/mcL) FEW >275 Urine Bacteria (NONE - FEW /HPF) TRACE >0 Urine Culture Screen (Cult byWBC Criteria) Crit NOTmet CULT-N/A Urine Comment (SpecComment Notes) CLEAN CATCH S PEC Microbiology: Date/Time Procedure - Status Source Growth 02/16 1623 Blood Culture - RES BLOOD 02/16 1615 Group A Streptococcus Screen (RICHARD) - COMP THROAT 02/16 1615 Influenza Virus Type B Antigen - COM P NASAL 02/16 1615 Influenza Virus Type A Antigen - COM P NASAL 02/16 1613 Blood Culture - RES BLOOD Recent Impressions: RADIOLOGY - XR CHEST 2 V 02/16 1634 Report Impression - Status: SIGNED Entered: 02/17/20208 Impression: Normal Impression By: Lisa Colon MD Lab Imaging Statement Laboratory radiographic studies reviewed and con sidered in the medical decision-making. Recent Impressions: RADIOLOGY - XR CHEST 2 V 02/16 1634 Report Impression - Status: SIGNED Entered: 02/17/20201657 Impression: Normal Impression By: Lisa Colon MD Point of Care Testing Micro Interpretation Influenza rapid - neg, Stre p rapid - neg Urinalysis Interpretation Urinalysis NL Pulse Oximetry Pulse Ox % 97 On: Room air Interpretation Interpreted by me, Pulse oximetr y normal Time 1601 Test Negative - urine HCG ECG #1 Interpretation Date 02/17/20 Time 1626 Interpreted by and reviewed by me, ED physician NL ECG Interpretation Normal sinus rhyth m, No acute ischemic changes, No STEMI Rate 114 Rhythm Tachycardia Lab Studies CBC Interpretation CBC NL BMP/CMP Interpretation BMP/CMP NL Cardiac and Vascular Interpretation Troponin NL Re-Evaluation MDM Re-Evaluation/Progress Re-Evaluation/Progress 1 Text/Dict Note Patient is comfortably sitting in the ro om, appears well, nontoxic, she states her bodyaches, have much improved, she h as had no nasuea or vomiting since she has been here. she denies any pleuritic pain or sob. Discussed her lab results with the patient CBC is normal electrolytes are within normal limits her lac tic acid is normal, hepatic function is normal, her UA is normal, test is negative, chest x-ray was all within normal limits without any infiltrates or pneumonia. Time of Re-Eval 170 Re-Eval Status Improved Plan Post Re-Eval her fluids are infusing. Re-Evaluation/Progress 2 Text/Dict Note The patient is sitting comfo rtably, she has been drinking fluids in the ER, she is talking over her phone, smiling, appe ars well, non toxic, her symptoms have improved since she has been in the ER. Discussed viral etiology for her symptoms, advis ed self quaritine, self isolation, and to take Tylen ol /ibuprofen for bodyaches and fevers, hydration to avoid dehydration, she will be discharged on orquidea solone perls , zofran. The patient is reffered to [facility], strict return precautions given, to return for any worsening fevers, re sistant to otc medications, worsening cough, or sob. the patient is comfortable with discharge, juarez porras understanding. her vital signs are stable on discharge. Time of Re-Eval 1749 Re-Eval Status Improved Plan Post Re-Eval Plan discharge ED Course Medication(s) Ordered Medication(s) Ordered: Anti-Infective Agents Sig/Leticia Start time Last Medication Dose Route Stop Time Status Admin Ceftriaxone Sodium 1 GM X1ED STA 02/16 1603 DC 02/16 Sterile Water 10 ML IV 02/16 1605 1626 Central Nervous System Agents Sig/Leticia Start time Last Medication Dose Route Stop Time Status Admin Acetaminophen 1,000 MG X1ED STA 02/16 1603 DC 02/16 PO 02/16 1604 1628 Electrolytic, Caloric, And Alejandrina Sig/Leticia Start time Last Medication Dose Route Stop Time Status Admin Sodium Chloride 1,000 ML X1ED STA 02/16 1603 AC 02/16 IV 03/30 0802 1627 Gastrointestinal Drugs Sig/Leticia Start time Last Medication Dose Route Stop Time Status Admin Ondansetron HCl 4 MG X1ED STA 02/16 1633 DC IV 02/16 1634 1639 Patient Discharge Departure Vital Signs/Condition Vital Signs First Documented: Result Date Time Pulse Ox 97 02/16 1559 B/P 151/97 02/16 1559 B/P Mean 115 02/16 1559 O2 Delivery Room air 02/16 1559 Temp 100.6 02/16 1559 Pulse 119 02/16 1559 Resp 18 02/16 1559 Last Documented: Result Date Time Pulse Ox 98 02/16 1800 B/P 118/71 02/16 1800 B/P Mean 86 02/16 1800 O2 Delivery Room air 02/16 1800 Temp 99.3 02/16 1800 Pulse 86 02/16 1800 Resp 16 02/16 1800 All vital signs available at the time of this en try have been reviewed. Condition Improved, Stable Clinical Impression Clinical Impression Primary Impression: Viral respiratory illness Time of Impression 175 Disposition Decision Discharge )( Discharged to Home Yes )( Time 175 )( Date 02/17/20 Discharge/Care Plan Counseled Regarding Diagnosi s, Lab results, Imaging studies, Prescriptions, Need for follow-up, When to return to ED Prescriptions Tessalon Perles, Otc Tylenol, ibuprofen. Prescriptions Reviewed Risks, Benefits, Alternat larissa treatment Discharge Note I have spoken with the patie nt and/or caregivers. I have explained the patient's condition, diagnoses and werner atment plan based on the information available to me at this time. I have answered the patient's and/ or caregiver's questions and addressed any concerns. The patient and/or careg gracy have as good an understanding of the patient 's diagnosis, condition and treatment plan as can be expected at this point. The vital signs have bee n stable. The patient's condition is stable and appr opriate for discharge from the emergency department. The patient will pursue further outpatient evalu ation with the primary care physician or other designated or consulting phys ician as outlined in the discharge instructions. The patient and/or caregivers are agreeable to this plan of care and follow-up instructions have been exp lained in detail. The patient and/or caregivers have received these instructio ns in written format and have expressed an understanding of the discharge inst ructions. The patient and/or caregivers are aware that any significant change in condition or worsening of symptoms should prompt an immediate return to [facility] or the closest emergency department or a call to 911. Quality Measures Tobacco Screening/Cessation 18 years or older, T obacco user, Counseled 3-10 minutes Free Text Depart Notes Free Text Depart Notes RefFered to Ava Esteban Electronically Signed by Julia Buckner on 01/31 at 2108 RPT #:[id number] END OF REPORT 2020-02-17 16:01:00-00:00 [facility] ([facility]) EMERGENCY PROVIDER REPORT REPORT#:[id number] REPORT STATUS: Signed DATE:02/17/20 TIME: 1601 PATIENT: JAIDEN PLATA UNIT #: [id number] ROOM/BED: AGE: 39 SEX: F PCP PHYS: No Primary or Family Ph ysician SERVICE AUTHOR: Julia uBckner * ALL edits or amendments must be made on the [employer]/computer document * Julia Buckner 02/17/20 1601: [id number] Illness General Confirmed Patient Yes Assumed Care at Time 1601 Date 02/17/20 PCP none. Presentation Chief Complaint Body aches, Chills, Cough, Fever, Nasal congestion, Sore throat Hx Obtained From Patient Onset Occurred Days ago (2) Symptom Duration Since onset Progression since Onset Gradually worsening Context of Onset unsure. Location Chest (ribs), Back upper, sorethroat. Quality Aching, Pleuritic Radiation Does not radiate Severity: Current Severe Associated with Reports: Chest pain (pleurit ic), Cough, Fever (105 today ), Nausea, Rhinorrhea, Shortness of breath. Denies: Abdominal pain, Ano rexia, Diarrhea, Earache, Headache, Myalgia, Neck pain, Rash, UTI symptoms , Vomiting. Associated Other postnasal drainage. Exacerbated by Nothing Relieved by Nothing Context Related History Denies: Pneumonia, Asthma, COPD, Immunosuppressi on. Immunization Status General Unknown Recent Healthcare No recent doctor visit, No rec ent hospitalization /Sexual Hx Last Menstrual Period 01/21/20 Additional Context she denies any travel within or out of [facility] country in the last 4 weeks,and she denies any direct contact with any one with COVI D 19 positive. Free Text HPI Notes Free Text HPI Notes 39-year-old female presents to the ER complainin g of body aches, sore throat, nasal congestion, postnasal drainage, that has been going on for the last 2 days , gradually getting worse, t he patient also reports associated with shortness of breath, which is worse on taking deep breaths an d pleuritic pain, the patient reports she has rib pain which is radiating to t he back. The patient does report that she had vomiting x2 yesterday, she has had no vomiting since this morning. The patient states that she had a temperature of 102 this morning, she took Motrin 800 mg at 2:45 PM today. The patient denies any ear pain, abdomin al pain, UTI symptoms, any vomiting or diarrhea today, any dyspnea on exertion, palpitations, ear pain, headaches, neck pain, neck stiffness,, difficulty eating or swal lowing. Review of Systems ROS Statements All systems rev neg except as marked. Focused Review of Systems Constitutional Reports: Chills, Fever. Eyes Denies: Blurred bilat, Eye pain bilat. Ears/Nose/Throat Reports: Nasal congestion, Sore throat. Denies: Ear ringing bilat, Earache bilat. Respiratory Reports: Cough, non-producti ve, Pleuritic pain, Shortness of breath (on coughing ). Denies: Cough, productive, Dyspnea on exertion, Hemoptysis, Parox nocturnal dyspnea, Wheezing. Cardiovascular Denies: Chest pain, Dyspnea on exertion, Edema, Orthopnea, Palpitations, Parox nocturnal dyspnea, Syncope. GI Reports: Nausea. Denies: Abdominal pain, Constip ation, Diarrhea, Vomiting. Musculoskeletal Reports: Back pain, Myalgia. Denies: Joint pain, Joint swelling. Skin Denies: Contusion, Diaphoresis, Erythema, Swelli ng. Neurologic Denies: Dizziness, Focal wea kness, Generalized weakness, Headache, Lightheaded, Numbness, Problem walking. Past Medical History - Adult Stated Complaint FEVER, SOB, SORE THROAT, BODY A CHES X 2 DAYS Allergies Coded Allergies: Sulfa (Sulfonamide Antibiotics) (Intermediate, r jeane chest tightness 02/17/20) codeine (Intermediate, rash chest tightness 01/30 07/21) meperidine HCl (From DEMEROL ) (Intermediate, vomiting chest tightness 02/17/20) Home Medications Reported Medications No Known Home Medications Discontinued Reported Medications VIT/FE FUMARATE/FA ( Multivitam in w/ Iron) 1 TAB PO DAILY Ferrous Sulfate (Slow Fe) 160 MG PO BID RANITIDINE (ZANTAC) 150 MG PO BID Review of Nursing Notes Unavailable at this time Pt reports no significant: Past medical history, Past surgical history, Family history Smoking status for patients 13 years old or olde r: Current every day smoker Physical Exam Vital Signs Vital Signs First Documented: Result Date Time Pulse Ox 97 02/16 1559 B/P 151/97 02/16 1559 B/P Mean 115 02/16 1559 O2 Delivery Room air 02/16 1559 Temp 100.6 02/16 1559 Pulse 119 02/16 1559 Resp 18 02/16 1559 Last Documented: Result Date Time Pulse Ox 98 02/16 1800 B/P 118/71 02/16 1800 B/P Mean 86 02/16 1800 O2 Delivery Room air 02/16 1800 Temp 99.3 02/16 1800 Pulse 86 02/16 1800 Resp 16 02/16 1800 Review of Vital Signs Reviewed Focused PE General/Const General/Const Awake, Alert, No acute di stress, Well developed, Well hydrated, Well nourished, Cooperative, Not toxic appearing Appearance/Presentation Uncomfortable. Eyes Eyes Atraumatic, PERRL, EOMI, No nystagmus, No periorbital redness, No periorbital swelling, No photophobia Ears/Nose/Throat Ears/Nose/Throat Atraumatic, Airway patent, Muc ous membranes moist, No peritonsillar abscess, No po oling of secretions, No trismus, Tympanic membs NL, Ext aud canal NL, Mastoid area NL, No sinus tend erness, No facial swelling Pharynx/Tonsils/Uvula Pharyngeal erythema. Nose Discharge nasal clear. MS Neck Neck Atraumatic, Supple, No meningismus , Full range of motion, No adenopathy, No swelling, Non-tender, No midline vertebral te nd Resp/Chest Respiratory/Chest Atraumatic, Breath sounds NL, Breath sounds = bilat, No respiratory distress, No rales, No rhonchi, No w heezing, No retractions, No stridor, No chest tenderness Cardiovascular Cardiovascular Regular rhythm, Heart sounds NL, No murmurs, Cap refill not delayed Abdomen/GI Abdomen/GI Soft, Non-tender, No guarding, No re bound, BS normoactive Lymphatic Lymphatic No cervical adenopathy Skin Skin Atraumatic, Color NL, No rash, War m, Dry, Intact, Turgor NL, No swelling Neurologic Neurologic Oriented X3, Speech NL, No motor def icits, Memory NL, Gait NL Interpretation Diagnostics Lab Results Interpretation Considerations Independ review imaging Results Laboratory Tests 02/17/201614: [Embedded Image Not Available] Laboratory Tests: 02/16 1615 Chemistry Lactic Acid (0.4 - 2.0 mmol/L) 1.4 Serum , Qual (NEG SCREEN) NEG 02/16 161 Chemistry Sodium (133 - 144 mmol/L) 135.0 Potassium (3.5 - 5.1 mmol/L) 3.6 Chloride (95 - 105 mmol/L) 104 Carbon Dioxide (21 - 32 mmol/L) 23 Anion Gap (4.0 - 15.0 GAP calc) 8.0 BUN (7 - 18 MG/DL) 9 Creatinine (0.55 - 1.30 MG/DL) 0.82 Glucose (70 - 110 MG/DL) 109 Calcium (8.5 - 10.1 MG/DL) 7.9 L Total Bilirubin (0.00 - 1.00 MG/DL) 0.35 Direct Bilirubin (0.00 - 0.30 MG/DL) 0.14 Indirect Bilirubin (0.2 - 1.3 MG/DL) 0.21 AST (15 - 37 Unit/L) 28 ALT (12 - 78 Unit/L) 28 Total Alk Phosphatase (45 - 117 Unit/L) 85 Troponin I (0.000 - 0.045 NG/ML) < 0.015 Total Protein (6.4 - 8.2 G/DL) 7.4 Albumin (3.4 - 5.0 G/DL) 3.5 Lipase (114 - 286 Unit/L) 318 H Procalcitonin (0.00 - 0.10 NG/ML) 0.16 H Specimen Appearance (1 NORMAL Index/DL) 1 LATOYA L <2 MG Specimen Hemolysis (1 NORMAL Index/DL) 1 NORMAL <10 MG Hematology WBC (4.1 - 12.1 K/mm3) 6.0 RBC (3.8 - 5.5 M/mm3) 4.73 Hgb (10.6 - 15.8 G/DL) 15.3 Hct (31.8 - 47.4 %) 43.3 MCV (80.1 - 101.1 fL) 91.5 MCH (25.3 - 35.3 pg) 32.3 MCHC (32.7 - 35.1 G/DL) 35.3 H RDW (12.2 - 16.4 %) 12.3 Plt Count (155 - 337 K/mm3) 244 MPV (6.8 - 11.2 fL) 9.8 Gran % (37.8 - 82.6 %) 66.1 Lymph % (Auto) (14.1 - 45.4 %) 19.1 [place] % (Auto) (2.5 - 11.7 %) 8.0 Eos % (Auto) (0.0 - 6.2 %) 6.0 Baso % (Auto) (0.0 - 2.1 %) 0.3 Gran # (2.0 - 13.7 k/mm3) 3.98 Lymph # (Auto) (0.6 - 3.8 K/mm3) 1.15 [place] # (Auto) (0.11 - 0.59 K/mm3) 0.48 Eos # (Auto) (0.0 - 0.4 K/mm3) 0.36 Baso # (Auto) (0.0 - 0.1 K/mm3) 0.02 Immature Gran % (0.0 - 2.0 %) 0.5 Nucleated RBC % (0.0 - 1.0 /100WBC%) 0.0 Nucleated RBCs # (0.0 - 0.05 K/mm3) 0.00 Serology Group A Strep Antibody (NEG SCREEN) NEG Urines Urine Color (YELLOW DESCRIPT) YELLOW Urine Appearance (CLEAR DESCRIPT) HAZY Urine pH (4.6 - 8.0 pH UNITS) 6.0 Ur Specific [place] (1.001 - 1.035 SG) 1.009 Urine Protein (<30 (1+) mg/dL) NEGATIVE (0) Urine Glucose (UA) ((NEG) 0 mg/dL) NEGATIVE (0) Urine Ketones ((NEG) 0 mg/dL) 0 (NEG) Urine Blood ((NEG) 0 mg/dL) NEGATIVE (0.00) Urine Nitrite (NEG SCREEN) NEGATIVE (0) Urine Bilirubin ((NEG) 0 mg/dL) NEGATIVE (0.0) Urine Urobilinogen (<2.0 (1+) mg/dL) 2 (1+) H Ur Leukocyte Esterase ((NEG) 0 Leuk/mcL) NEGATI VE (0) Urine RBC (0 - 3 #RBC/HPF) 0-3 Urine WBC (0 - 3 #WBC/HPF) 0-3 Ur Squamous Epith Cells (NONE - SQepi /HPF) MOD ERATE >10 Amorphous Sediment (NONE - FEW #/mcL) FEW >275 Urine Bacteria (NONE - FEW /HPF) TRACE >0 Urine Culture Screen (Cult byWBC Criteria) Crit NOTmet CULT-N/A Urine Comment (SpecComment Notes) CLEAN CATCH S PEC Microbiology: Date/Time Procedure - Status Source Growth 02/16 1623 Blood Culture - RES BLOOD 02/16 1615 Group A Streptococcus Screen (RICHARD) - COMP THROAT 02/16 1615 Influenza Virus Type B Antigen - COM P NASAL 02/16 1615 Influenza Virus Type A Antigen - COM P NASAL 02/16 1613 Blood Culture - RES BLOOD Recent Impressions: RADIOLOGY - XR CHEST 2 V 02/16 1634 Report Impression - Status: SIGNED Entered: 02/17/20208 Impression: Normal Impression By: Lisa Colon MD Lab Imaging Statement Laboratory radiographic studies reviewed and con sidered in the medical decision-making. Recent Impressions: RADIOLOGY - XR CHEST 2 V 02/16 1634 Report Impression - Status: SIGNED Entered: 02/17/20208 Impression: Normal Impression By: Lisa Colon MD Point of Care Testing Micro Interpretation Influenza rapid - neg, Stre p rapid - neg Urinalysis Interpretation Urinalysis NL Pulse Oximetry Pulse Ox % 97 On: Room air Interpretation Interpreted by me, Pulse oximetr y normal Time 1601 Test Negative - urine HCG ECG #1 Interpretation Date 02/17/20 Time 1627 Interpreted by and reviewed by me, ED physician NL ECG Interpretation Normal sinus rhyth m, No acute ischemic changes, No STEMI Rate 114 Rhythm Tachycardia Lab Studies CBC Interpretation CBC NL BMP/CMP Interpretation BMP/CMP NL Cardiac and Vascular Interpretation Troponin NL Re-Evaluation MDM Re-Evaluation/Progress Re-Evaluation/Progress 1 Text/Dict Note Patient is comfortably sitting in the ro om, appears well, nontoxic, she states her bodyaches, have much improved, she h as had no nasuea or vomiting since she has been here. she denies any pleuritic pain or sob. Discussed her lab results with the patient CBC is normal electrolytes are within normal limits her lac tic acid is normal, hepatic function is normal, her UA is normal, test is negative, chest x-ray was all within normal limits without any infiltrates or pneumonia. Time of Re-Eval 1706 Re-Eval Status Improved Plan Post Re-Eval her fluids are infusing. Re-Evaluation/Progress 2 Text/Dict Note The patient is sitting comfo rtably, she has been drinking fluids in the ER, she is talking over her phone, smiling, appe ars well, non toxic, her symptoms have improved since she has been in the ER. Discussed viral etiology for her symptoms, advis ed self quaritine, self isolation, and to take Tylen ol /ibuprofen for bodyaches and fevers, hydration to avoid dehydration, she will be discharged on [facility]. The patient is reffered to [facility], strict return precautions given, to return for any worsening fevers, re sistant to otc medications, worsening cough, or sob. the patient is comfortable with discharge, verbshy porras understanding. her vital signs are stable on discharge. Time of Re-Eval 1749 Re-Eval Status Improved Plan Post Re-Eval Plan discharge ED Course Medication(s) Ordered Medication(s) Ordered: Anti-Infective Agents Sig/Leticia Start time Last Medication Dose Route Stop Time Status Admin Ceftriaxone Sodium 1 GM X1ED STA 02/16 1603 DC 02/16 Sterile Water 10 ML IV 02/16 1605 1626 Central Nervous System Agents Sig/Leticia Start time Last Medication Dose Route Stop Time Status Admin Acetaminophen 1,000 MG X1ED STA 02/16 1603 DC 0 02/16 PO 02/16 1604 1628 Electrolytic, Caloric, And Alejandrina Sig/Leticia Start time Last Medication Dose Route Stop Time Status Admin Sodium Chloride 1,000 ML X1ED STA 02/16 1603 AC 02/16 IV 03/30 0802 1627 Gastrointestinal Drugs Sig/Leticia Start time Last Medication Dose Route Stop Time Status Admin Ondansetron HCl 4 MG X1ED STA 02/16 1633 DC IV 02/16 1634 1639 Patient Discharge Departure Vital Signs/Condition Vital Signs First Documented: Result Date Time Pulse Ox 97 02/16 1559 B/P 151/97 02/16 1559 B/P Mean 115 02/16 1559 O2 Delivery Room air 02/16 1559 Temp 100.6 02/16 1559 Pulse 119 02/16 1559 Resp 18 02/16 1559 Last Documented: Result Date Time Pulse Ox 98 02/16 1800 B/P 118/71 02/16 1800 B/P Mean 86 02/16 1800 O2 Delivery Room air 02/16 1800 Temp 99.3 02/16 1800 Pulse 86 02/16 1800 Resp 16 02/16 1800 All vital signs available at the time of this en try have been reviewed. Condition Improved, Stable Clinical Impression Clinical Impression Primary Impression: Viral respiratory illness Time of Impression 1752 Disposition Decision Discharge )( Discharged to Home Yes )( Time 175 )( Date 02/17/20 Discharge/Care Plan Counseled Regarding Diagnosi s, Lab results, Imaging studies, Prescriptions, Need for follow-up, When to return to ED Prescriptions Tessalon Perles, Otc Tylenol, ibuprofen. Prescriptions Reviewed Risks, Benefits, Alternat larissa treatment Discharge Note I have spoken with the patie nt and/or caregivers. I have explained the patient's condition, diagnoses and werner atment plan based on the information available to me at this time. I have answered the patient's and/ or caregiver's questions and addressed any concerns. The patient and/or careg gracy have as good an understanding of the patient 's diagnosis, condition and treatment plan as can be expected at this point. The vital signs have bee n stable. The patient's condition is stable and appr opriate for discharge from the emergency department. The patient will pursue further outpatient evalu ation with the primary care physician or other designated or consulting phys ician as outlined in the discharge instructions. The patient and/or caregivers are agreeable to this plan of care and follow-up instructions have been exp lained in detail. The patient and/or caregivers have received these instructio ns in written format and have expressed an understanding of the discharge inst ructions. The patient and/or caregivers are aware that any significant change in condition or worsening of symptoms should prompt an immediate return to [facility] or the closest emergency department or a call to 911. Quality Measures Tobacco Screening/Cessation 18 years or older, T obacco user, Counseled 3-10 minutes Free Text Depart Notes Free Text Depart Notes RefFered to Nikhil Bui 02/19/20 2348: [id number] Illness General Initial Greet Date/Time 02/17/20 1559 Patient Discharge Departure Supervising Physician Note MidLv Saw Pt Alone I have reviewed the PA/GUARD LIEUTENANT's note and plan of car e. I was available for consultation as needed at al l times during the patient's visit in the emergency department. I agree with the clinical impression , plan and disposition. Electronically Signed by Julia Buckner on 01/31 at 2108 Electronically Signed by Nikhil Santos DO on at 4875 RPT #:[id number] END OF REPORT
[2023-04-20] MEDS ORDERED: PROMETHAZINE INJ 25 MG/ML AMP ONE (18:51)
[2023-04-20] MEDS ORDERED: MORPHINE 4 MG/ML SYR ONE (18:51)
[2023-04-20] MEDS ORDERED: NA CHLORIDE 0.9% 1,000 ML ONE (18:51)
[2023-04-20 18:53] LABS: Absolute Lymphocytes (CBC) 2.1 K/uL (0.7-4.9); Hematocrit 37.5 % (36.0-45.0); Lymphocytes % 16.7 % (15.3-44.8); MCV 94.2 fL (80-100); MPV 7.6 fL (7.6-11.3); RBC Red Blood Cell Count 3.97 M/uL (3.86-4.86)
[2023-04-20 18:56] LABS: Urine Bacteria 20-50 /HPF (<20); Urine Bilirubin NEGATIVE (Negative); Urine Blood 2+ (Negative); Urine Clarity Turbid (Clear); Urine Color Light-Yellow (Yellow); Urine Glucose NEGATIVE (Negative); Urine Protein 1+ (Negative); Urine RBC >50 /HPF (None Seen); Urine Urobilinogen Normal (Normal); Urine WBC Clump Few /HPF (None Seen); Urine pH 6.5 (5.0-7.0)
[2023-04-20 19:07] LABS: Albumin 3.3 g/dL (3.4-5.0); Bilirubin Total 0.1 mg/dL (0.2-1.0); Potassium 3.4 mEq/L (3.5-5.1)
[2023-04-20] MEDS ORDERED: CIPROFLOXACIN 400mg IV 400 MG/200 ML BAG IV ONE (19:37)
--- NOTE | 2023-04-20 19:46 | RAD REPORT ---
EXAM DESCRIPTION: CT - Abdomen Pelvis W Contrast - 04/20/2023 7:25 pm CLINICAL HISTORY: Abdominal pain COMPARISON: 2013 TECHNIQUE: Computed axial tomography of the abdomen pelvis was obtained. 100 cc Isovue-300 was admin istered intravenously. Oral contrast was not requested which limits evaluation of bowel and appendix All CT scans are performed using dose optimization technique as appropriate and may include automated exposure control or mA/KV adjustment according to patient size. FINDINGS: The liver, spleen, pancreas, adrenal and kidneys appear unremarkable. There is no evidence of diverticulitis. Normal appendix Approximately 11 x 2 centimeter cylindrical foreign body is present within the bladder. The anterior aspect abuts the anterior bladder wall. Mild stranding within the adjacent fat IMPRESSION: 11 x 2 centimeter cylindrical foreign body within the bladder
--- NOTE | 2023-04-20 19:54 | ER ---
Nurse's Notes [facility] Name: Gabrielle Plata Age: 42 yrs Sex: Female : 1980 Arrival Date: 04/20/2023 Time: 17:24 Bed 19 Private MD: Diagnosis: Foreign body in the bladder;UTI/ Urinary tract infection, site not specified Presentation: 04/20 17:35 Chief complaint: Abdominal swelling x 2 days, bilateral flank pain, blood with clots in hb urine, pain with urination, foul smelling urine, and vaginal pain x 5 days. Coronavirus screen: At this time, the client does not indicate any symptoms associated with coronavirus-19. Ebola Screen: No symptoms or risks identified at this time. Initial Sepsis Screen: Does the patient meet any 2 criteria? No. Patient's initial sepsis screen is negative. Does the patient have a suspected source of infection? No. Patient's initial sepsis screen is negative. Risk Assessment: Do you want to hurt yourself or someone else? Patient reports no desire to harm self or others. Onset of symptoms was April 15, 2023. 17:35 Method Of Arrival: Ambulatory hb 17:35 Acuity: CATHIE 3 hb Triage Assessment: 17:41 General: Appears in no apparent distress. Behavior is calm, cooperative. Pain: Pain hb currently is 10 out of 10 on a pain scale. EENT: No signs and/or symptoms were reported regarding the EENT system. Neuro: Level of Consciousness is awake, alert, obeys commands, Oriented to person, place, time, situation. Cardiovascular: Patient's skin is warm and dry. Respiratory: Respiratory effort is even, unlabored, Respiratory pattern is regular, symmetrical. GI: Reports lower abdominal pain, upper abdominal pain, nausea. : Reports burning with urination, cramping, pain in bilateral flank(s), urgency. Derm: Skin is pink, warm \T\ dry. Musculoskeletal: No signs and/or symptoms reported regarding the musculoskeletal system. 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 - Social history:: Smoking status: Patient reports the use of cigarette tobacco products, smokes one-half pack cigarettes per day. Screenin:14 [facility] ED Fall Risk Assessment (Adult) Score/Fall Risk Level 0 - 2 = Low Risk ll1 Oriented to surroundings, Maintained a safe environment, Educated pt \T\ family on fall prevention, incl call for assistance when getting out of bed, Hourly rounding (assess needs \T\ fall precautionary measures) done. Abuse screen: Denies threats or abuse. Nutritional screening: No deficits noted. Tuberculosis screening: No symptoms or risk factors identified. Assessment: 18:54 Reassessment: No changes from previously documented assessment. Patient and/or family ll1 updated on plan of care and expected duration. Pain level reassessed. Patient is alert, oriented x 3, equal unlabored respirations, skin warm/dry/pink. 20:51 Reassessment: No changes from previously documented assessment. Patient and/or family sg5 updated on plan of care and expected duration. Pain level reassessed. Patient is alert, oriented x 3, equal unlabored respirations, skin warm/dry/pink. 21:04 Reassessment: Report Called to [facility] to nurse Oglesby at 2054. sg5 22:22 GI: Bowel sounds present X 4 quads. Abd is soft X 4 quads Abdomen is tender to sg5 palpation. Vital Signs: 17:35 BP 147 / 96; Pulse 102; Resp 16; Temp 98.3; Pulse Ox 99.8% on R/A; Weight 57.61 kg; hb Height 5 ft. 0 in. ; Pain 10/10; 19:00 BP 145 / 78; Pulse 90; Resp 18; Pulse Ox 99% on R/A; Pain 6/10; sg5 20:00 BP 150 / 80; Pulse 80; Resp 16; Pulse Ox 98% on R/A; Pain 5/10; sg5 21:00 BP 146 / 74; Pulse 76; Resp 16; Pulse Ox 98% on R/A; Pain 3/10; sg5 22:00 BP 144 / 76; Pulse 86; Resp 16; Pulse Ox 99% on R/A; Pain 3/10; sg5 17:35 Body Mass Index 24.80 (57.61 kg, 152.4 cm) hb 17:35 Pain Scale: Adult hb 19:00 Pain Scale: Adult sg5 20:00 Pain Scale: Adult sg5 21:00 Pain Scale: Adult sg5 22:00 Pain Scale: Adult sg5 ED Course: 17:27 Patient arrived in ED. ts1 17:34 [facility] jh7 17:34 Sam Ramirez MD is Attending Physician. [facility] 17:39 Triage completed. hb 17:39 Arm band placed on. EKG completed in triage. Results shown to MD. EKG completed in hb triage. Results shown to MD. 18:34 Grisel Goldstein, SITA is Primary Nurse. ll1 18:54 Patient has correct armband on for positive identification. Placed in gown. Bed in low mm9 position. Call light in reach. Side rails up X 1. Warm blanket given. Pulse ox on. NIBP on. 18:54 Urinalysis w/ reflexes Sent. mm9 18:54 Inserted saline lock: 22 gauge in right antecubital area, using aseptic technique. ll1 Blood collected. 18:54 Urine collected: clean catch specimen, cloudy. mm9 19:27 CT Abd/Pelvis - IV Contrast Only In Process Unspecified. EDMS 20:51 IV discontinued. Inserted saline lock: 22 gauge in left hand, using aseptic technique. sg5 ,using aseptic technique. difusex. 22:21 No provider procedures requiring assistance completed. Patient transferred, IV remains sg5 in place. Administered Medications: 18:53 Drug: NS 0.9% IV 1000 ml Route: IV; Rate: 1 bolus; Site: right antecubital; ll1 18:54 Drug: morphine IVP or IV 4 mg Route: IVP; Infused Over: 4 mins; Site: right antecubital;ll1 18:54 Drug: Promethazine IVP 12.5 mg Route: IVP; Site: right antecubital; ll1 20:50 Drug: Ciprofloxacin IVPB 400 mg Volume: 200 ml; Route: IVPB; Infused Over: 60 mins; sg5 Site: left hand; 21:53 Follow up: IV Status: Completed infusion sg5 20:50 Drug: HYDROmorphone IVP 1 mg Route: IVP; Site: left hand; sg5 Medication: 19:14 VIS not applicable for this client. ll1 Outcome: 19:53 ER care complete, transfer ordered by MD. paul 22:21 Transferred by ground EMS Note: [facility] ambulance sg5 22:21 Transferred to [facility], Note: [facility] bed 1643 report called to nurse Reny 22:21 Condition: good 22:21 Instructed on the need for transfer. 22:23 Patient left the ED. sg5 Addendum: 04/23/2023 11:27 Addendum: Culture Results: Positive urine culture. Phone call Attempt #1 Pt was a a5 transferred to [facility], results faxed to nurse at [facility], fax [phone]. Signatures: Dispatcher [employer] EDMS Marifer Lisa RN RN aa5 Grazyna Esteves RN RN hb Lewis, Lynsay, RN RN ll1 Naila Shea, SLAB INSTALLER SLAB INSTALLER Donna Shabazz Stephanie, RN RN sg5 Kristie Dasilva, DEBRA PAS ts1 Corrections: (The following items were deleted from the chart) 04/20 17:42 17:35 Chief complaint: Abdominal swelling x 2 days, blood with clots in urine, pain hb with urination, foul smelling urine, and vaginal pain x 5 days hb
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
[2023-04-20] MEDS ORDERED: HYDROMORPHONE HCL 1 MG/ML INJ ONE (20:35)
[2023-04-20 23:22] VITALS: TEMP 98.3
[2023-04-20 23:28] VITALS: BP 144/76; O2SAT 99
== END 2023-04-20 22:23 | disposition short-term general hospital (02) ==
LOC: ER 17:24
DX: T19.1XXA Foreign body in bladder, initial encounter (principal); N39.0 Urinary tract infection, site not specified
CPT/HCPCS: 36415; 74177; 80053; 81001; 81025; 83690; 85025; 87077; 87086; 87088; 87186; J0744; J1170; J2550; J7030; Q9967

== ENCOUNTER 2023-04-26 18:32 | Emergency (ER) | payer SELFPAY ==
--- OUTSIDE RECORDS SUMMARY | 2023-04-26 18:40 | XMS REPORT | Continuity of Care Document ---
:1980 Author Organization [facility] t Address [address] [facility] [address] [place] [address] Care Team Providers Name Role Phone No, Pcp [facility] Primary Care Physician Unavailable Marvin BEASLEY, Kishor Rincon Attending Clinician Rakan Mcgee MD Attending Clinician [phone] Lola BEASLEY, Grazyna Reich Attending Clinician [phone] GRAZYNA LOVE Attending Clinician Unavailable YONAS FITZGERALD Attending Clinician Unavailable Martita Pop MD Attending Clinician Fernando Pandya MD Attending Clinician KISHOR WONG Attending Clinician Unavailable Yonas Fitzgerald MD Attending Clinician Doctor Unassigned, [place] Attending Clinician Unavailable Ramez BUCKNER, Ashely Attending Clinician Unavailable Antonio Monroe MD Attending Clinician [phone] Mojgan SHAH Attending Clinician Unavailable Mojgan Pires Attending Clinician JOSÉ LUIS GONZALES Attending Clinician Unavailable Brit BEASLEY, Yonas Calero Attending Clinician Telma BEASLEY, Mynor Oconnell Attending Clinician MYNOR HOLLIS Attending Clinician Unavailable Min LEZAMA, Dalia Robbins Attending Clinician DALIA OROZCO Attending Clinician Unavailable Dhruv Briggs DO Attending Clinician Jose Guadalupe BUCKNER, Kaylah Lau Attending Clinician Unavailable Ashly LEZAMA, Andrew Attending Clinician ELO RIVERA Attending Clinician Unavailable Elo Rivera MD Attending Clinician DAVID CAMILO Attending Clinician Unavailable CHRIS FOY Attending Clinician Unavailable Al BEASLEY, Chris Attending Clinician Shun Benedict MD Attending Clinician Sanjay Lind MD Attending Clinician SANJAY LIND Attending Clinician Unavailable Physician, No Primary or Family Admitting Clinician UnavailRAKAN Oakes Admitting Clinician Unavailable YONAS FITZGERALD Admitting Clinician Unavailable Yonas Fitzgerald MD Admitting Clinician Mojgan SHAH Admitting Clinician Unavailable GRAZYNA LOVE Admitting Clinician Unavailable Sanjay Lind MD Admitting Clinician SANJAY LIND Admitting Clinician Unavailable Payers Payer Name Policy Type Policy Number Effective Date Expiration Date Claire chaudhary [place] [place] [id number] 2020 WOMEN 00:00:00 MATTHEW [id number] 2020 2020 00:00:00 00:00:00 AGENCY GENERIC VC [id number] 2020 2020 00:00:00 00:00:00 Problems Condition Condition Condition Status Onset Resolution Last Treating Co mments Source Name Details Category Date Date Treatment Clinician Date Anxiety Anxiety Disease Recurre [facility] Urinary Urinary Disease Active [facility] tract tract [facility] infection infection 00:00: Medi dorothy 00 Center Foreign Foreign Disease Active [facility] body body [facility] tract, tract, 00:00: Medical initial initial 00 Center encounter encounter Displaced Displaced Disease Active Overview: Univers fracture fracture 4-24 Form[place] ity of of neck of of neck of 00:00: g of this [place] fifth fifth 00 note Medical metacarpal metacarpal might be Branch bone, bone, different right right from the hand, hand, original. 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 08-10 Formattin i ty of virus) virus) 00:00: g of this [place] infection infection 00 note Medi dorothy might be Branch different from the [...] bilateral 8-25 ity of tubal tubal 00:00: [place] ligation ligation 00 Medica l Branch Elevated Elevated Disease Active Unive rs blood blood 8-25 ity of pressure pressure 00:00: [place] reading reading 00 Medical without without Branch diagnosis diagnosis of of hypertensi hypertensi on on Anxiety Anxiety Disease Active Univers 5-07 ity of 00:00: [place] [facility] Chest pain Chest pain Disease Active U nivers 4-21 ity of 00:00: [place] [facility] Screening Screening Disease Active Uni vers examinatio examinatio 2-05 it y of n for STD n [place] STD [place] ([place] (sexually 00 [facility] transmitte transmitte Br anch d disease) d disease) Premature Premature Disease Active 2016-12 Uni vers labor labor 0-24 ity of 00:00: [place] [facility] Branch 34 weeks 34 weeks Disease Active 2016-12 Unive rs gestation gestation 0-14 ity of of of 00:00: [place] 00 [facility] Disease Active 2016-12 Univers labor labor 0-14 ity of 00:00: [place] [facility] Crohn Crohn Disease Active Overview: Univer s disease disease 12-02 Formattin ity o f 00:00: g of this [place] note Medical might be Branch different from the original. involving small and large intesting , biopsy confirmed . Gets colonosco py Q 6-12 months. 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 10 spontaneo us abortions prior to 10 weeks, D&C in 2005 Allergies, Adverse Reactions, Alerts Allergy Allergy Status Severity Reaction(s) Onset Inactive Treating Comm ents Source Name Type Date Date Clinician Tetrahyd Propensi Active [facility] rocannab ty to 5-20 [facility] inol adverse 00:00: Medical (Thc) reaction 00 Center s Corticos Propensi Active Other (See Blisters [facility] teroids ty to Comments) 5-20 [facility] (Glucoco adverse 00:00: Medical rticoids reaction 00 Center ) s TETRAHYD Allergy Active [facility] ROCANNAB 5-20 INOL 00:00: (THC) 00 CORTICOS Allergy Active Other 2023-0 [facility] TEROIDS 5-20 (GLUCOCO 00:00: RTICOIDS 00 ) GRISEOFU DRUG Active Dizziness 2022-0 Unive rs LVIN INGREDI 4-25 ity of ULTRAMIC 00:00: [place] ROSIZE 00 Medical Branch KETOROLA DRUG Active N/V 2022-0 Univers C INGREDI 4-25 ity of 00:00: [place] 00 Medical Branch Griseofu Propensi Active Swelling 2022-0 Univ ers lvin ty to 4-25 ity of Ultramic adverse 00:00: [place] rosize reaction 00 Medical s Branch Ketorola Propensi Active Nausea 2022-0 Severe Univer s c ty to and/or 4-25 headache ity of adverse Vomiting 00:00: [place] reaction 00 Medical s Branch CEFEPIME DRUG Active Anaphylaxis 2022-0 Uni vers INGREDI 4-15 ity of 00:00: [place] 00 Medical Branch Cefepime Propensi Active Anaphylaxis 2022-0 U nivers ty to 4-15 ity of adverse 00:00: [place] reaction 00 Medical s Branch Sulfa Propensi Active 2020-[address] [facility] (Sulfona ty to 2-16 [facility] mide adverse 00:00: Medical Antibiot reaction 00 Center ics) s Ketorola Propensi Active 2020-[address] [facility] c ty to 2-16 [facility] adverse 00:00: Medical reaction 00 Center s Cefepime Propensi Active Itching, 2020-[address] [facility] ty to Rash 2-16 [facility] adverse 00:00: Medical reaction 00 Center s Codeine Drug Active Shortness Of 2020-[address] [facility] Allergy Breath, 2-16 [facility] Itching, 00:00: Medical Nausea And 00 Center Vomiting Meperidi Propensi Active 2020-[address] [facility] ne ty to 2-16 [facility] adverse 00:00: Medical reaction 00 Center s CODEINE Allergy Active High Sob 2020-[address] [facility] 2-16 [facility] 00:00: Medical 00 Center CEFEPIME Allergy Active Med Itching 2020-[address] [facility] 2-16 [facility] 00:00: Medical 00 Center MEPERIDI Allergy Active 2020-[address] NE 2-16 [facility] 00:00: Medical 00 Center SULFA Allergy Active 2020-[address] (SULFONA 2-16 [facility] MIDE 00:00: Medical ANTIBIOT 00 Center ICS) KETOROLA Allergy Active 2020-[address] C 2-16 [facility] 00:00: Medical Center CEFEPIME DRUG Active Med Anaphylaxis 2020-12 Uni vers INGREDI 2-16 ity of 00:00: [place] 00 Medical Branch meperidi DA Active MO 2020-0 [facility] ne HCl 3-18 [facility] 00:00: Region 00 [facility] Sulfa DA Active MO 2020-0 [facility] (Sulfona 3-18 [facility] mide 00:00: Regiona Antibiot 00 l ics) Medical Center codeine DA Active MO 2020-0 [facility] 3-18 [facility] 00:00: Region 00 [facility] meperidi DA Active MO vomiting 2020-0 [facility] ne HCl chest 3-18 [facility] tightness 00:00: [facility] 00 [facility] Sulfa DA Active MO rash chest 2020-0 [facility] (Sulfona tightness 3-18 Con[facility] e mide 00:00: Region Antibiot 00 l ics) Medical Center codeine DA Active MO rash chest 2020-0 [facility] tightness 3-18 [facility] 00:00: [facility] 00 [facility] Marijuan Propensi Active Anaphylaxis 2018-0 U nivers [...] Medical ICS) Branch Sulfa Propensi Active Rash 2017-0 Univers (Sulfona ty to 8-30 ity of mide adverse 00:00: [place] Antibiot reaction 00 Medica l ics) s Branch Codeine Propensi Active Shortness of 2016-1 [...] reaction 00 Medical Branch CODEINE DRUG Active High SOB 2015- Univers INGREDI 0-25 ity of 00:00: [place] 00 Medical Br[place] MEPERIDI DRUG Active Rash 2015- Univers NE HCL INGREDI 0-25 ity of 00:00: [place] 00 Medical Branch TRAMADOL DRUG Active N/V 2015- Univers INGREDI 0-25 ity of 00:00: [place] 00 Medical [place] Codeine Drug Active Nausea 2015- Univers Allergy and/or 0-25 ity of Vomiting 00:00: [place] 00 [facility] meperidi DA Active MO [facility] ne HCl 8-26 [facility] 00:00: Region 00 [facility] Sulfa DA Active MO [facility] (Sulfona 8-26 [facility] mide 00:00: Regiona Antibiot 00 l ics) Medical Myton codeine DA Active MO [facility] 8-26 [facility] 00:00: Region 00 [facility] meperidi DA Active MO vomiting [facility] ne HCl chest 8-26 [facility] tightness 00:00: Region 00 [facility] Sulfa DA Active MO rash chest [facility] (Sulfona tightness 8-26 Conro e mide 00:00: Regiona Antibiot 00 l ics) Medical Center codeine DA Active MO rash chest [facility] tightness 8-26 [facility] 00:00: Region 00 Medical Myton Social History Social Habit Start Date Stop Date Quantity Comments Source History of tobacco Cigarette Smoker [facility] History SDOH [facility] History [facility] 2023-04-21 2023-04-[address] [facility] Med 00:00:00 00:00:[address] History SDOH 2023-04-21 2023-04-[address] [facility] Unable to 00:00:00 00:00:00 Medical Center Pay History SDOH 2023-04-21 2023-04-[address] [facility] Places 00:00:00 00:00:00 Medical Ce nter Lived History SDMS 2023-04-21 2023-04-[address] [facility] Homeless 00:00:00 00:00:00 Medical Center Last Year Exposure to 2023-04-10 2023-04-[address] [facility] SARS-CoV-2 (event) 00:00:00 23:57:00 Medica [facility] Alcohol intake 2023-04-08 2023-04-08 Current drinker Unive rsity of 00:00:00 00:00:00 of alcohol [facility] (finding) Branch Tobacco use and 2023-03-25 2023-03-25 Smokeless tobacco Un iversity of exposure 00:00:00 00:00:00 non-user [facility] Cigarettes smoked 2023-03-25 2023-03-25 Univers ity of current (pack per 00:00:00 00:00:00 [facility] [place] ) - Reported Branch Tobacco Comment 2023-03-25 2023-03-25 Occasional Smoker Un iversity of 00:00:00 00:00:00 [facility] Branch History SDMS 2020-07-26 2020-07-26 2 University o f Alcohol Frequency 00:00:00 00:00:00 [facility] Branch History [facility] 2020-07-26 2020-07-26 2 University o f Alcohol Std Drinks 00:00:00 00:00:00 [facility] Branch History [facility] 2020-07-26 2020-07-26 99 University o f Alcohol Binge 00:00:00 00:00:00 [facility] Alcohol Comment 2018-01-03 2018-01-03 Social Drinker Unive rsity of 00:00:00 00:00:00 [facility] Sex [birth year] At [birth year] AVEL Bowser kes 00:00:00 00:00:00 Medical Center Smoking Status Start Date Stop Date Source Smokes tobacco daily 2023-03-25 00:00:00 Univers ity of [facility] Current some day smoker 2020-06-12 00:00:00 Univ ersity of [facility] Medications Ordered Filled Start Stop Current Ordering Indication Dosage Frequency Signature Comments Components Source Medication Medication Date Date Medication? Clinician (SIG) Name Name clonazePAM 2023-0 Yes .5mg Q.5D Take 1 [facility] (KlonoPIN) 5-25 tablet [facility] 0.5 MG 15:44: (0.5 mg Medical tablet 02 total) by Center mouth in the morning and 1 tablet (0.5 mg total) before bedtime. Max Daily Amount: 1 mg. TiZANidine 2022-0 Yes 4mg Q.[id number] Take [address] (ZANAFLEX) 5-25 [id number] capsule (4 [facility] 4 MG 15:44: 3D mg total) Medical capsule 02 by mouth Center in the morning and 1 capsule (4 mg total) at noon and 1 capsule (4 mg total) in the evening. gabapentin 3-0 Yes 300mg Q.[id number] Take [address] (NEURONTIN) 5-25 [id number] capsule [facility] 300 MG 15:44: 3D (300 mg Medical capsule 02 total) by Center mouth in the morning and 1 capsule (300 mg total) at noon and 1 capsule (300 mg total) in the evening. omeprazole 2022-0 Yes 20mg QD Take 1 [facility] (PriLOSEC) 5-25 capsule [facility] 20 MG 15:44: (20 mg Medical capsule 02 total) by Center mouth in the morning. ibuprofen 2022-0 2022- No 600mg Take [address] [facility] [facility] (ADVIL,MOTR 5-25 05-24 tablet [facility] IN) 600 MG 15:44: 00:00 (600 mg Med ical tablet 02 :00 total) by Center mouth every 6 (six) hours as needed for Pain. cyclobenzap 2022-0 2022- No 10mg Take [address] [facility] rine 5-25 05-24 tablet (10 [facility] (FLEXERIL) 15:44: 00:00 mg total) M edical 10 MG 02 :00 by mouth Center tablet every 8 (eight) hours. diclofenac 2022-0 2022- No 75mg Q.5D Take [address] (VOLTAREN) 5-25 05-24 tablet (75 Marcella kes 75 MG EC 15:44: 00:00 mg total) Med ical tablet 02 :00 by mouth Center in the morning and 1 tablet (75 mg total) before bedtime. promethazin 2022-0 2022- No 12.5mg Take [address] e 5-25 05-24 tablet [facility] (PHENERGAN) 15:44: 00:00 (12.5 mg M edical 12.5 MG 02 :00 total) by Center tablet mouth every 6 (six) hours as needed for Nausea. busPIRone 3-0 Yes 5mg Q.[id number] Take [address] [facility] (BUSPAR) 5 5-24 [id number] tablet (5 [facility] MG tablet 15:44: 3D mg total) Med ical 47 by mouth Center in the morning and 1 tablet (5 mg total) at noon and 1 tablet (5 mg total) in the evening. HYDROcodone 2022-0 Yes 1{tbl} Take [address] -acetaminop 5-24 tablet by Martha es hen (NORCO 00:00: mouth Medica l 5-325) 00 every 6 Center 5-325 mg (six) per tablet hours as needed for Pain. Max Daily Amount: 4 tablets amoxicillin 2022-0 Yes 500mg Q.[id number] Take [address] (AMOXIL) 5-24 [id number] tablet Martha es 500 MG 00:00: 3D (500 mg Medical tablet 00 total) by Center mouth in the morning and 1 tablet (500 mg total) at noon and 1 tablet (500 mg total) in the evening. lisinopriL 2022-0 Yes 10mg QD Take 1 [facility] (PRINIVIL,Z 5-24 tablet (10 Marcella kes ESTRIL) 10 00:00: mg total) Me dical MG tablet 00 by mouth Center in the morning. promethazin 2022-0 Yes 12.5mg Take [address] e 5-24 tablet [facility] (PHENERGAN) 00:00: (12.5 mg Me dical 12.5 MG 00 total) by Center tablet mouth every 6 (six) hours as needed for Nausea. levoFLOXaci 2023-0 202- Yes 500mg QD Take [address] n 5-24 05-29 tablet [facility] (LEVAQUIN) 00:00: 23:59 (500 mg Med ical 500 MG 00 :00 total) by Center tablet mouth in the morning for 5 days. ibuprofen 2022-0 202- Yes [id number] 600mg Take 1 Univers 600 mg 5-08 08-07 tablet by ity of tablet 00:00: 04:59 mouth 3 [place] 00 :00 (three) Medical times Branch daily with meals as needed for Pain (scale 4-6) or Pain (scale 1-3) for up to 90 days. ibuprofen 2022- Yes [id number] 600mg Take 1 Univers 600 mg 5-08 08-07 tablet by ity of tablet 00:00: 04:59 mouth 3 [place] 00 :00 (three) Medical times Branch daily with meals as needed for Pain (scale 4-6) or Pain (scale 1-3) for up to 90 days. ibuprofen 2022- Yes [id number] 600mg Take 1 Univers 600 mg 5-08 08-07 tablet by ity of tablet 00:00: 04:59 mouth 3 [place] 00 :00 (three) Medical times Branch daily with meals as needed for Pain (scale 4-6) or Pain (scale 1-3) for up to 90 days. ibuprofen 2022- Yes [id number] 600mg Take 1 Univers 600 mg 5-08 08-07 tablet by ity of tablet 00:00: 04:59 mouth 3 [place] 00 :00 (three) Medical times Branch daily with meals as needed for Pain (scale 4-6) or Pain (scale 1-3) for up to 90 days. ibuprofen 2022- Yes [id number] 600mg Take 1 Univers 600 mg 5-08 08-07 tablet by ity of tablet 00:00: 04:59 mouth 3 [place] 00 :00 (three) Medical times Branch daily [...] Yes 4mg 4 mg, Slow Univers (ZOFRAN 26 IV Push, ity of (PF)) 17:55: PRN, [...] on Sat Branch 03/27/23 at 1127, Until Sat03/27/23 at 1253, Routine, Intra-op clindamycin 2022- No [...] mL (1 %) Starting Branch injection on Sat03/27/23 at 1115, Until Sat03/27/23 at 1253, Routine, Intra-op rocuronium 2022- No IV Push, Un gracy (ZEMURON) 03-27 ONCE INTRA ity of injection 16:15: 17:53 PROCEDURE, [place] 00 :36 Starting Medical on Sat Branch 03/27/23 at 1115, Until 03/27/23 at 1253, Routine, Intra-op propofoL IV 2022- No Slow IV Un gracy infusion 03-27 Push, ONCE ity of 16:15: 17:53 INTRA [place] 00 :36 PROCEDURE, Medical Starting Branch on 03/27/23 at 1115, Until 03/27/23 at 1253, Routine, Intra-op midazolam 2022- No IV Push, Uni vers (VERSED) 03-27 ONCE INTRA ity of injection 15:57: 17:53 PROCEDURE, [place] 00 :36 Starting Medical on Sat Branch 03/27/23 at 1057, Until Sat03/27/23 at 1253, Routine, Intra-op bupivacaine 2022- No Infiltrati Univers (preserv 03-27 on, ONCE ity of free) 0.5% 15:36: 17:53 INTRA [place] (SENSORCAIN 00 :36 PROCEDURE, Me dical E [...] Medical Infusion, Branch ONCE, 1 dose, On 03/27/23 at 0930, Routine, DSU Pre-op scopolamine 2022- [...] 05-02 tablet by it y of hen (LIFXCO) 00:00: 04:59 mouth 2 [place] 5-325 mg 00 :00 (two) Medical tablet times Branch daily as needed for Pain (scale 7-10) for up to 7 days. Indication s: acute pain HYDROcodone 2022- Yes [id number] 1{tbl} Take 1 U nivers -acetaminop 4-24 05-02 tablet by it y of hen (Open Silicon) 00:00: 04:59 mouth 2 [place] 5-325 mg 00 :00 (two) Medical tablet times Branch daily as needed for Pain (scale 7-10) for up to 7 days. Indication s: acute pain HYDROcodone 2022- Yes [id number] 1{tbl} Take 1 U nivers -acetaminop 4-24 05-02 tablet by it y of hen (Open Silicon) 00:00: 04:59 mouth 2 [place] 5-325 mg 00 :00 (two) Medical tablet times Branch daily as needed for Pain (scale 7-10) for up to 7 days. Indication s: acute pain HYDROcodone 2022- Yes [id number] 1{tbl} Take 1 U nivers -acetaminop 4-24 05-02 tablet by it y of hen (Open Silicon) 00:00: 04:59 mouth 2 [place] 5-325 mg 00 :00 (two) Medical tablet times Branch daily as needed for Pain (scale 7-10) for up to 7 days. Indication s: acute pain HYDROcodone 2022-2022- Yes 4647 1{tbl} Take 1 U nivers -acetaminop 4-24 05-02 tablet by it y of hen (LIFXCO) 00:00: 04:59 mouth 2 [place] 5-325 mg 00 :00 (two) Medical tablet times Branch daily as needed for Pain (scale 7-10) for up to 7 days. Indication s: acute pain HYDROcodone 2022- Yes 4647 1{tbl} Take 1 U nivers -acetaminop 4-24 05-02 tablet by it y of hen (Open Silicon) 00:00: 04:59 mouth 2 [place] 5-325 mg 00 :00 (two) Medical tablet times Branch daily as needed for Pain (scale 7-10) for up to 7 days. Indication s: acute pain HYDROcodone 2022-0 2022- Yes 4647 1{tbl} Take 1 U nivers -acetaminop 4-24 05-02 tablet by it y of hen (Open Silicon) 00:00: 04:59 mouth 2 [place] 5-325 mg 00 :00 (two) Medical tablet times Branch daily as needed for Pain (scale 7-10) for up to 7 days. Indication s: acute pain HYDROcodone 2022-2022- Yes 4647 1{tbl} Take 1 U nivers -acetaminop 4-24 05-02 tablet by it y of hen (Open Silicon) 00:00: 04:59 mouth 2 [place] 5-325 mg 00 :00 (two) Medical tablet times Branch daily as needed for Pain (scale 7-10) for up to 7 days. Indication s: acute pain HYDROcodone 2022-2022- Yes 4647 1{tbl} Take 1 U nivers -acetaminop 4-24 05-02 tablet by it y of hen (Open Silicon) 00:00: 04:59 mouth 2 [place] 5-325 mg 00 :00 (two) Medical tablet times Branch daily as needed for Pain (scale 7-10) for up to 7 days. Indication s: acute pain HYDROcodone 2022-0 2022- Yes 4647 1{tbl} Take 1 U nivers -acetaminop 4-24 05-02 tablet by it y of hen (Open Silicon) 00:00: 04:59 mouth 2 [place] 5-325 mg 00 :00 (two) Medical tablet times Branch daily as needed for Pain (scale 7-10) for up to 7 days. Indication s: acute pain HYDROcodone 2022-2022- No 4647 1{tbl} Take 1 U nivers -acetaminop 4-24 05-02 tablet by it y of hen (Open Silicon) 00:00: 04:59 mouth 2 [place] 5-325 mg 00 :00 (two) Medical tablet times Branch daily as needed for Pain (scale 7-10) for up to 7 days. Indication s: acute pain ibuprofen 2022-0 Yes TAKE ONE Univ ers 600 mg 4-18 (1) ity of tablet 00:00: TABLET(S) [place] 00 BY MOUTH Medical EVERY Branch EIGHT HOURS WITH FOOD NEEDED FOR PAIN. cyclobenzap 3-0 Yes TAKE ONE Un gracy [...] TAKE ONE Un gracy rine 10 mg -18 (1) ity of tablet 00:00: TABLET(S) [place] 00 BY MOUTH Medical EVERY Branch EIGHT HOURS NEEDED. ibuprofen 2022- No TAKE ONE Uni vers 600 mg -18 - (1) ity of tablet 00:00: 00:00 TABLET(S) [place] 00 :00 BY MOUTH Medical EVERY Branch EIGHT HOURS WITH FOOD NEEDED FOR PAIN. ibuprofen 2022- No TAKE ONE Uni vers 600 mg 4-18 03-27 (1) ity of tablet 00:00: 00:00 TABLET(S) [place] 00 :00 BY MOUTH Medical EVERY Branch EIGHT HOURS WITH FOOD NEEDED FOR PAIN. ibuprofen 2022- No TAKE ONE Uni vers 600 mg 18 03-27 (1) ity of tablet 00:00: 00:00 TABLET(S) [place] 00 :00 BY MOUTH Medical EVERY Branch EIGHT HOURS WITH FOOD NEEDED FOR PAIN. HYDROcodone 2022- No 1{tbl} 1 tablet, Univers -acetaminop 03-16-15 Oral, ity of hen (NORCO 16:15: 15:34 ONCE, 1 Jose as 5) 5-325 mg 00 :00 dose, On Medi dorothy tablet 1 Sat Branch tablet 03/16/23 at 1115, MATTHEW proMETHazin 2022- No 25mg 25 mg, Uni vers e 03-16-15 Intramuscu ity of (PHENERGAN) 15:15: 15:33 lar, ONCE, [place] injection 00 :00 1 dose, On Medi dorothy 25 mg Sat Branch 03/16/23 at 1015, MATTHEW tiZANidine 2022-0 Yes [id number] 4mg Take 1 Univers 4 mg tablet 4-15 tablet by ity of 00:00: mouth [place] 00 every 6 Medical (six) Branch hours as needed for Pain (scale 4-6) for up to 20 doses. diclofenac 2022- Yes [id number] 50mg Take 1 Univers 50 mg 4-15 tablet by ity of tablet 00:00: mouth in [place] 00 the Medical morning Branch and 1 tablet in the evening. tiZANidine 2022-0 Yes [id number] 4mg Take 1 Univers 4 mg tablet 4-15 tablet by ity of 00:00: mouth [place] 00 every 6 Medical (six) Branch hours as needed for Pain (scale 4-6) for up to 20 doses. diclofenac 2023-0 Yes [id number] 50mg Take 1 Univers 50 mg 4-15 tablet by ity of tablet 00:00: mouth in [place] 00 the Medical morning Branch and 1 tablet in the evening. tiZANidine 2023-0 Yes [id number] 4mg Take 1 Univers 4 mg tablet 4-15 tablet by ity of 00:00: mouth [place] 00 every 6 Medical (six) Branch hours as needed for Pain (scale 4-6) for up to 20 doses. diclofenac 2023-0 Yes [id number] 50mg Take 1 Univers 50 mg 4-15 tablet by ity of tablet 00:00: mouth in [place] 00 the Medical morning Branch and 1 tablet in the evening. tiZANidine 2023-0 Yes [id number] 4mg Take 1 Univers 4 mg tablet 4-15 tablet by ity of 00:00: mouth [place] 00 every 6 Medical (six) Branch hours as needed for Pain (scale 4-6) for up to 20 doses. diclofenac 2023-0 Yes [id number] 50mg Take 1 Univers 50 mg 4-15 tablet by ity of tablet 00:00: mouth in [place] 00 the Medical morning Branch and 1 tablet in the evening. tiZANidine 2023-0 Yes [id number] 4mg Take 1 Univers 4 mg tablet 4-15 tablet by ity of 00:00: mouth [place] 00 every 6 Medical (six) Branch hours as needed for Pain (scale 4-6) for up to 20 doses. diclofenac 2023-0 Yes [id number] 50mg Take 1 Univers 50 mg 4-15 tablet by ity of tablet 00:00: mouth in [place] 00 the Medical morning Branch and 1 tablet in the evening. tiZANidine 2023-0 Yes [id number] 4mg Take 1 Univers 4 mg tablet 4-15 tablet by ity of 00:00: mouth [place] 00 every 6 Medical (six) Branch hours as needed for Pain (scale 4-6) for up to 20 doses. diclofenac 2023-0 Yes [id number] 50mg Take 1 Univers 50 mg 4-15 tablet by ity of tablet 00:00: mouth in [place] 00 the Medical morning Branch and 1 tablet in the evening. tiZANidine 2023-0 Yes [id number] 4mg Take 1 Univers 4 mg tablet 4-15 tablet by ity of 00:00: mouth [place] 00 every 6 Medical (six) Branch hours as needed for Pain (scale 4-6) for up to 20 doses. diclofenac 2023-0 Yes [id number] 50mg Take 1 [facility] 50 mg 4-15 tablet by [facility] of tablet 00:00: mouth in [place] 00 the Medical morning Branch and 1 tablet in the evening. tiZANidine 2023-0 Yes [id number] 4mg Take 1 [facility] 4 mg tablet 4-15 tablet by ity of 00:00: mouth [place] 00 every 6 Medical (six) Branch hours as needed for Pain (scale 4-6) for up to 20 doses. diclofenac 2023-0 Yes [id number] 50mg Take 1 [facility] 50 mg 4-15 tablet by ity of tablet 00:00: mouth in [place] 00 the Medical morning Branch and 1 tablet in the evening. tiZANidine 2023-0 Yes [id number] 4mg Take 1 [facility] 4 mg tablet 4-15 tablet by ity of 00:00: mouth [place] 00 every 6 Medical (six) Branch hours as needed for Pain (scale 4-6) for up to 20 doses. diclofenac 2023-0 Yes [id number] 50mg Take 1 [facility] 50 mg 4-15 tablet by ity of tablet 00:00: mouth in [place] 00 the Medical morning Branch and 1 tablet in the evening. tiZANidine 2023-0 Yes [id number] 4mg Take 1 [facility] 4 mg tablet 4-15 tablet by ity of 00:00: mouth [place] 00 every 6 Medical (six) Branch hours as needed for Pain (scale 4-6) for up to 20 doses. diclofenac 2023-0 Yes [id number] 50mg Take 1 [facility] 50 mg 4-15 tablet by ity of tablet 00:00: mouth in [place] 00 the Medical morning Branch and 1 tablet in the evening. tiZANidine 2023-0 Yes [id number] 4mg Take 1 [facility] 4 mg tablet 4-15 tablet by ity of 00:00: mouth [place] 00 every 6 Medical (six) Branch hours as needed for Pain (scale 4-6) for up to 20 doses. tiZANidine 2023-0 Yes [id number] 4mg Take 1 [facility] 4 mg tablet 4-15 tablet by ity of 00:00: mouth [place] 00 every 6 Medical (six) Branch hours as needed for Pain (scale 4-6) for up to 20 doses. tiZANidine 3-0 Yes [id number] 4mg Take 1 [facility] 4 mg tablet 4-15 tablet by ity of 00:00: mouth [place] 00 every 6 Medical (six) Branch hours as needed for Pain (scale 4-6) for up to 20 doses. tiZANidine 3-0 Yes [id number] 4mg Take 1 [facility] 4 mg tablet 4-15 tablet by ity of 00:00: mouth [place] 00 every 6 Medical (six) Branch hours as needed for Pain (scale 4-6) for up to 20 doses. tiZANidine 3-0 Yes [id number] 4mg Take 1 [facility] 4 mg tablet 4-15 tablet by ity of 00:00: mouth [place] 00 every 6 Medical (six) Branch hours as needed for Pain (scale 4-6) for up to 20 doses. tiZANidine 2022-0 Yes [id number] 4mg Take 1 [facility] 4 mg tablet 4-15 tablet by ity of 00:00: mouth [place] 00 every 6 Medical (six) Branch hours as needed for Pain (scale 4-6) for up to 20 doses. tiZANidine 3-0 Yes [id number] 4mg Take 1 [facility] 4 mg tablet 4-15 tablet by ity of 00:00: mouth [place] 00 every 6 Medical (six) Branch hours as needed for Pain (scale 4-6) for up to 20 doses. tiZANidine 3-0 Yes [id number] 4mg Take 1 [facility] 4 mg tablet 4-15 tablet by ity of 00:00: mouth [place] 00 every 6 Medical (six) Branch hours as needed for Pain (scale 4-6) for up to 20 doses. tiZANidine 3-0 Yes [id number] 4mg Take 1 [facility] 4 mg tablet 4-15 tablet by ity of 00:00: mouth [place] 00 every 6 Medical (six) Branch hours as needed for Pain (scale 4-6) for up to 20 doses. tiZANidine 3-0 Yes [id number] 4mg Take 1 [facility] 4 mg tablet 4-15 tablet by ity of 00:00: mouth [place] 00 every 6 Medical (six) Branch hours as needed for Pain (scale 4-6) for up to 20 doses. tiZANidine 2022-0 Yes [id number] 4mg Take 1 [facility] 4 mg tablet 4-15 tablet by ity of 00:00: mouth [place] 00 every 6 Medical (six) Branch hours as needed for Pain (scale 4-6) for up to 20 doses. diclofenac 2022-0 3- No [id number] 50mg Take 1 [facility] 50 mg 4-15 04-25 tablet by ity of tablet 00:00: 00:00 mouth in [place] 00 :00 the Medical morning Branch and 1 tablet in the evening. diclofenac 2022-0 3- No [id number] 50mg Take 1 [facility] 50 mg 4-15 04-25 tablet by ity of tablet 00:00: 00:00 mouth in [place] 00 :00 the Medical morning Branch and 1 tablet in the evening. diclofenac 2022-0 3- No [id number] 50mg Take 1 [facility] 50 mg 4-15 04-25 tablet by ity of tablet 00:00: 00:00 mouth in [place] 00 :00 the Medical morning Branch and [...] MOUTH Medical EVERY Branch EIGHT HOURS. gabapentin 3-0 Yes TAKE ONE [facility] 300 mg 4-05 (1) it[facility] of capsule 00:00: [place] 00 BY MOUTH Medical EVERY Branch EIGHT HOURS. gabapentin 3-0 Yes TAKE ONE [facility] 300 mg 4-05 (1) it[facility] of capsule 00:00: [place](S[place] 00 BY MOUTH Medical EVERY Branch EIGHT HOURS. gabapentin 2023-0 Yes TAKE ONE [facility] 300 mg 4-05 (1) ity of capsule 00:00: [place](S) [place] 00 BY MOUTH Medical EVERY Branch EIGHT HOURS. gabapentin 2023-0 Yes TAKE ONE [facility] 300 mg 4-05 (1) ity of capsule 00:00: [place](S) [place] 00 BY MOUTH Medical EVERY Branch EIGHT HOURS. gabapentin 2023-0 Yes TAKE ONE [facility] 300 mg 4-05 (1) ity of capsule 00:00: CAPSULE(S) [place] 00 BY MOUTH Medical EVERY Branch EIGHT HOURS. gabapentin 2023-0 Yes TAKE ONE [facility] 300 mg 4-05 (1) ity of capsule 00:00: CAPSULE(S) [place] 00 BY MOUTH Medical EVERY Branch EIGHT HOURS. gabapentin 2023-0 Yes TAKE ONE [facility] 300 mg 4-05 (1) ity of capsule 00:00: CAPSULE(S) [place] 00 BY MOUTH Medical EVERY Branch EIGHT HOURS. gabapentin 2023-0 Yes TAKE ONE [facility] 300 mg 4-05 (1) ity of capsule 00:00: CAPSULE(S) [place] 00 BY MOUTH Medical EVERY [place] EIGHT HOURS. diclofenac 2023-0 Yes 75mg Take 1 [facility] 75 mg EC 4-02 tablet by ity of tablet 00:00: mouth in [place] 00 the Medical morning Branch and 1 tablet in the evening. diclofenac 2023-0 2023- No 75mg Take 1 [facility] 75 mg EC -01 05-26 tablet by ity o f tablet 00:00: 00:00 mouth in [place] 00 :00 the Medical morning Branch and 1 tablet in the evening. diclofenac 2023-0 2023- No 75mg Take 1 [facility] 75 mg EC 4-01 05-26 tablet by ity o f tablet 00:00: 00:00 mouth in [place] 00 :00 the Medical morning Branch and 1 tablet in the evening. diclofenac 2023-0 2023- No 75mg Take 1 [facility] 75 mg EC 4-01 05-26 tablet by ity o f tablet 00:00: 00:00 mouth in [place] 00 :00 the Medical morning Branch and 1 tablet in the evening. clonazePAM 2023-0 Yes .5mg Take 1 [facility] 0.5 mg 3-29 tablet by ity of tablet 00:00: mouth in [place] 00 the Medical morning Branch and 1 tablet in the evening. clonazePAM 2023-0 Yes .5mg Take 1 [facility] 0.5 mg 3-29 tablet by ity of tablet 00:00: mouth in [place] 00 the Medical morning Branch and 1 tablet in the evening. clonazePAM 2023-0 Yes .5mg Take 1 [facility] 0.5 mg 3-29 tablet by ity of tablet 00:00: mouth in [place] 00 the Medical morning Branch and 1 tablet in the evening. clonazePAM 2023-0 Yes .5mg Take 1 [facility] 0.5 mg 3-29 tablet by ity of tablet 00:00: mouth in [place] [address] the Medical morning [place] and 1 tablet in the evening. clonazePAM 2023-0 Yes .5mg Take 1 [facility] 0.5 mg 3-29 tablet by ity of tablet 00:00: mouth in [place] [address] the Medical morning [place] and 1 tablet in the evening. clonazePAM 2023-0 Yes .5mg Take 1 [facility] 0.5 mg 3-29 tablet by ity of tablet 00:00: mouth in [place] [address] the Medical morning [place] and 1 tablet in the evening. clonazePAM 2023-0 Yes .5mg Take 1 [facility] 0.5 mg 3-29 tablet by ity of tablet 00:00: mouth in [place] [address] the [facility] morning [place] and 1 tablet in the evening. clonazePAM 2023-0 Yes .5mg Take 1 [facility] 0.5 mg 3-29 tablet by ity of tablet 00:00: mouth in [place] [address] the Medical morning [place] and 1 tablet in the evening. clonazePAM 2023-0 Yes .5mg Take 1 [facility] 0.5 mg 3-29 tablet by ity of tablet 00:00: mouth in [place] [address] the [facility] morning [place] and 1 tablet in the evening. clonazePAM 2023-0 Yes .5mg Take 1 [facility] 0.5 mg 3-29 tablet by ity of tablet 00:00: mouth in [place] [address] the [facility] morning [place] and 1 tablet in the evening. proMETHazin [...] by ity of tablet 00:00: mouth in [place] [address] the Medical morning [place] and 1 tablet in the evening. proMETHazin [...] by ity of tablet 00:00: mouth in [place] the Medical morning Branch and 1 tablet [...] by ity of tablet 00:00: mouth in [place] the Medical morning Branch and 1 tablet in the evening. proMETHazin 2023-0 Yes TAKE ONE Un gracy e 12.5 mg 3-16 (1) ity of tablet 00:00: TABLET(S) [place] 00 BY MOUTH Medical EVERY Branch EIGHT HOURS NEEDED. diphenoxyla 2023-0 Yes TAKE ONE Un gracy te-atropine 3-16 (1) ity of 2.5-0.025 00:00: TABLET(S) [place] mg tablet 00 BY MOUTH Medica l THREE Branch TIMES A DAY NEEDED. busPIRone 2023-0 Yes 10mg Take 1 [facility] s 10 mg 3-16 tablet by ity of tablet 00:00: mouth in [place] the Medical morning Branch and 1 tablet in the evening. proMETHazin 2023-0 Yes TAKE ONE Un gracy e 12.5 mg 3-16 (1) ity of tablet 00:00: TABLET(S) [place] 00 BY MOUTH Medical EVERY Branch EIGHT HOURS NEEDED. diphenoxyla 2023-0 Yes TAKE ONE Un gracy te-atropine 3-16 (1) ity of 2.5-0.025 00:00: TABLET(S) [place] mg tablet 00 BY MOUTH Medica l THREE Branch TIMES A DAY NEEDED. busPIRone 2023-0 Yes 10mg Take 1 [facility] 10 mg 3-16 tablet by ity of tablet 00:00: mouth in [place] 00 the Medical morning Branch and 1 [...] by ity of tablet 00:00: mouth in [place] 00 the Medical morning Branch and 1 tablet in the evening. proMETHazin 2023-0 Yes TAKE ONE Un gracy e 12.5 mg 3-16 (1) ity of tablet 00:00: TABLET(S) [place] BY MOUTH Medical EVERY Branch EIGHT HOURS NEEDED. diphenoxyla 2023-0 Yes TAKE ONE Un gracy te-atropine 3-16 (1) ity of 2.5-0.025 00:00: TABLET(S) [place] mg tablet 00 BY MOUTH Medica l THREE Branch TIMES A DAY NEEDED. busPIRone 2023-0 Yes 10mg Take 1 Un[facility] s 10 mg 3-16 tablet by ity of tablet 00:00: mouth in [place] 00 the Medical morning Branch and 1 [...] by ity of tablet 00:00: mouth in [place] 00 the Medical morning Branch and 1 tablet in the evening. proMETHazin 3-0 Yes TAKE ONE Un gracy e 12.5 [...] by ity of tablet 00:00: mouth in [place] 00 the Medical morning Branch and 1 tablet in the evening. proMETHazin 2022-0 Yes TAKE ONE Un gracy e 12.5 mg 3-16 (1) ity of tablet 00:00: TABLET(S) [place] 00 BY MOUTH Medical EVERY Branch EIGHT HOURS NEEDED. diphenoxyla 2022-0 Yes TAKE ONE Un gracy te-atropine 3-16 (1) ity of 2.5-0.025 00:00: TABLET(S) [place] mg tablet 00 BY MOUTH Medica l THREE Branch TIMES A DAY NEEDED. busPIRone 2022-0 Yes 10mg Take 1 Univer s 10 mg 3-16 tablet by ity of tablet 00:00: mouth in [place] 00 the Medical morning Branch and 1 tablet in the evening. oxybutynin 2020-12 Yes 10mg QD Take 1 [...] 00 by mouth Center daily. lisinopriL 2020-12 hypertensio 5mg QD Take [address] [facility] (PRINIVIL,Z 2-19 05-24 n tablet (5 Marcella kes ESTRIL) 5 00:00: 00:00 mg total) Me dical MG tablet 00 :00 by mouth Center daily. busPIRone 2020-12 Yes 5mg Q.[id number] Take [address] [facility] (BUSPAR) 5 2-18 [id number] by mouth 3 [facility] tablet 15:41: 3D (three) Medic al 03 times Center daily. busPIRone 2020-12 Yes 5mg Q.[id number] Take [address] [facility] (BUSPAR) 5 2-18 [id number] by mouth 3 [facility] tablet 15:41: 3D (three) Medic al 03 times Center daily. busPIRone 2020-12 Yes 5mg Q.[id number] Take [address] [facility] (BUSPAR) 5 2-18 [id number] by mouth 3 [facility] tablet 15:41: 3D (three) Medic al 03 times Center daily. busPIRone 2020-12 Yes 5mg Q.[id number] Take [address] [facility] (BUSPAR) 5 2-18 [id number] by mouth 3 [facility] tablet 15:41: 3D (three) Medic al 03 times Center daily. ondansetron 2020-12 Yes 4mg Take 1 [facility] [...] [address] [facility] (ZOFRAN-ODT 2-18 tablet (4 Marhta es ) 4 MG 00:00: mg total) [...] daily as needed (bladder spasms). HYDROcodone 2020-12 No 1{tbl} Take [address] [facility] [address] -acetaminop 2-18 -24 tablet by Marcella castillo (NORCO 00:00: 00:00 mouth Medic al 5-325) 00 :00 every 6 Center 5-325 mg (six) per tablet hours as needed for Pain. Max Daily Amount: 4 tablets ibuprofen No 600mg 600 mg, Uni vers (IBU) 12-26 Oral, ity of tablet 600 04:45: 03:53 ONCE, 1 [place] mg 00 :00 dose, [facility] 12/25/20 at [place] 2245, MATTHEW ibuprofen No 600mg 600 mg, Uni vers (IBU) 12-26 Oral, ity of tablet 600 00:30: 12:29 ONCE, 1 [place] mg 00 :00 dose, [facility] 12/25/20 at [place] 1830, MATTHEW metroNIDAZO No [id number] 2000mg Take 4 [facility] LE 500 mg 12-26 tablets by ity of tablet 00:00: 05:59 mouth 2 [place] 00 :00 (two) Medical times [place] daily for 1 dose. NaCl 0.9% 1000mL at 999 Uni vers (NS) bolus 12-25 mL/hr, ity of infusion 17:30: 18:07 1,000 mL, [place] [facility] 1,000 [facility] dose, [place] 12/25/20 at 1130, STAT proMETHazin No 12.5mg 12.5 mg, Univers e 12-25 IV ity of (PHENERGAN) 17:30: 16:45 Piggyback, [place] 12.5 mg in 00 :00 ONCE, 1 Medica l NaCl 0.9% dose, [place] [facility] (NS) 50 mL 12/25/20 at [place] 1130, 50 mL cefTRIAXone 2020- No 250mg 250 mg, U nivers (ROCEPHIN) 12-25 Intramuscu it y of injection 16:30: 16:45 lar, ONCE [place] 250 mg 00 :00 NOW, 1 Medical dose, [place] Branch 12/25/20 at 1030, MATTHEW
Fa culty member approving Restricted medication : MYNOR HOLLIS
Reaso n for Anti-Infec tive: Documented Infection< br>Docu mented Infection Site: Abdominal< br>Duratio n of Therapy: 7 days azithromyci 2020- No 1000mg 1,000 mg, Univers n 12-25 Oral, ONCE ity of (ZITHROMAX) 16:30: 16:44 NOW, 1 [place] tablet 00 :00 dose, [facility] 1,000 mg 12/25/20 at [facility] h 1030, MATTHEW
Re ason [...] ed, MATTHEW, Pain (scale 7-10) iohexol 0 2019- No 120mL 120 mL, Unive rs (OMNIPAQUE 07-1514 Intravenou it y of 350 22:15: 22:15 s, ONCE, 1 [place] BULK-150 00 :00 dose, Fri Medica l mL) 07/15/20 at [place] injection 1715, 120 mL Routine dicyclomine Yes 10mg 10 mg, Univ ers (BENTYL) -14 Oral, QID, ity o f capsule 10 21:00: First dose [place] mg 00 on Fri Medical 07/15/20 at Branch 1600, Until Discontinu ed, Routine pantoprazol 0 2019- No 80mg 80 mg, IV Univers e 8-07-15 Piggyback, ity of (PROTONIX) 19:45: 20:00 ONCE, 1 [place] 80 mg in 00 :00 dose, Fri Medica l NaCl 0.9% 07/15/20 at [facility] ch (NS) 100 mL 1445, 100 IV mL [place] sucralfate 2020-0 Yes [id number] 1g Take 1 Un gracy 1 gram 8-14 tablet by ity of tablet 00:00: mouth [place] 00 before Medical meals and Branch at bedtime. dicyclomine 2020-0 Yes [id number] 10mg Take 1 U nivers (BENTYL) 10 8-14 capsule by it y of mg capsule 00:00: mouth [place] 00 every 8 Medical (eight) Branch hours as needed for Abdominal pain. ondansetron 2020-0 Yes [id number] 4mg Take 1 U nivers 4 mg 8-14 tablet by ity of disintegrat 00:00: mouth [place] ing tablet 00 every 8 Medica l (eight) Branch hours as needed for Nausea and Vomiting (N/V). sucralfate 2020-0 Yes [id number] 1g Take 1 Un gracy 1 gram 8-14 tablet by ity of tablet 00:00: mouth [place] 00 before Medical meals and Branch at bedtime. dicyclomine 2020-0 Yes [id number] 10mg Take 1 U nivers (BENTYL) 10 8-14 capsule by it y of mg capsule 00:00: mouth [place] 00 every 8 Medical (eight) Branch hours as needed for Abdominal pain. ondansetron 2020-0 Yes [id number] 4mg Take 1 U nivers 4 mg 8-14 tablet by ity of disintegrat 00:00: mouth [place] ing tablet 00 every 8 Medica l (eight) Branch hours as needed for Nausea and Vomiting (N/V). sucralfate 2020-0 Yes [id number] 1g Take 1 Un gracy 1 gram 8-14 tablet by ity of tablet 00:00: mouth [place] 00 before Medical meals and Branch at bedtime. dicyclomine 2020-0 Yes [id number] 10mg Take 1 U nivers (BENTYL) 10 8-14 capsule by it y of mg capsule 00:00: mouth [place] 00 every 8 Medical (eight) Branch hours as needed for Abdominal pain. ondansetron 2020-0 Yes [id number] 4mg Take 1 U nivers 4 mg 8-14 tablet by ity of disintegrat 00:00: mouth [place] ing tablet 00 every 8 Medica l (eight) Branch hours as needed for Nausea and Vomiting (N/V). sucralfate 2020-0 Yes [id number] 1g Take 1 Un gracy 1 gram 8-14 tablet by ity of tablet 00:00: mouth [place] 00 before Medical meals and Branch at bedtime. dicyclomine 2020-0 Yes [id number] 10mg Take 1 U nivers (BENTYL) 10 8-14 capsule by it y of mg capsule 00:00: mouth [place] 00 every 8 Medical (eight) Branch hours as needed for Abdominal pain. ondansetron 2020-0 Yes [id number] 4mg Take 1 U nivers 4 mg 8-14 tablet by ity of disintegrat 00:00: mouth [place] ing tablet 00 every 8 Medica l (eight) Branch hours as needed for Nausea and Vomiting (N/V). sucralfate 2020-0 Yes [id number] 1g Take 1 Un gracy 1 gram 8-14 tablet by ity of tablet 00:00: mouth [place] 00 before Medical meals and Branch at bedtime. dicyclomine 2020-0 Yes [id number] 10mg Take 1 U nivers (BENTYL) 10 8-14 capsule by it y of mg capsule 00:00: mouth [place] 00 every 8 Medical (eight) Branch hours as needed for Abdominal pain. ondansetron 2020-0 Yes [id number] 4mg Take 1 U nivers 4 mg 8-14 tablet by ity of disintegrat 00:00: mouth [place] ing tablet 00 every 8 Medica l (eight) Branch hours as needed for Nausea and Vomiting (N/V). sucralfate 2020-0 Yes [id number] 1g Take 1 Un gracy 1 gram 8-14 tablet by ity of tablet 00:00: mouth [place] 00 before Medical meals and Branch at bedtime. dicyclomine 2020-0 Yes [id number] 10mg Take 1 U nivers (BENTYL) 10 8-14 capsule by it y of mg capsule 00:00: mouth [place] 00 every 8 Medical (eight) Branch hours as needed for Abdominal pain. ondansetron 2020-0 Yes [id number] 4mg Take 1 U nivers 4 mg 8-14 tablet by ity of disintegrat 00:00: mouth [place] ing tablet 00 every 8 Medica l (eight) Branch hours as needed for Nausea and Vomiting (N/V). sucralfate 2020-0 Yes [id number] 1g Take 1 Un gracy 1 gram 8-14 tablet by ity of tablet 00:00: mouth [place] 00 before Medical meals and Branch at bedtime. dicyclomine 2020-0 Yes [id number] 10mg Take 1 U nivers (BENTYL) 10 8-14 capsule by it y of mg capsule 00:00: mouth [place] 00 every 8 Medical (eight) Branch hours as needed for Abdominal pain. ondansetron 2020-0 Yes [id number] 4mg Take 1 U nivers 4 mg 8-14 tablet by ity of disintegrat 00:00: mouth [place] ing tablet 00 every 8 Medica l (eight) Branch hours as needed for Nausea and Vomiting (N/V). sucralfate 2020-0 Yes [id number] 1g Take 1 Un gracy 1 gram 8-14 tablet by ity of tablet 00:00: mouth [place] 00 before Medical meals and Branch at bedtime. dicyclomine 2020-0 Yes [id number] 10mg Take 1 U nivers (BENTYL) 10 8-14 capsule by it y of mg capsule 00:00: mouth [place] 00 every 8 Medical (eight) Branch hours as needed for Abdominal pain. ondansetron 2020-0 Yes [id number] 4mg Take 1 U nivers 4 mg 8-14 tablet by ity of disintegrat 00:00: mouth [place] ing tablet 00 every 8 Medica l (eight) Branch hours as needed for Nausea and Vomiting (N/V). sucralfate 2020-0 Yes [id number] 1g Take 1 Un gracy 1 gram 8-14 tablet by ity of tablet 00:00: mouth [place] 00 before Medical meals and Branch at bedtime. dicyclomine 2020-0 Yes [id number] 10mg Take 1 [facility] nivers (BENTYL) 10 8-14 capsule by it y of mg capsule 00:00: mouth [place] 00 every 8 Medical (eight) Branch hours as needed for Abdominal pain. ondansetron 2020-0 Yes [id number] 4mg Take 1 U nivers 4 mg 8-14 tablet by ity of disintegrat 00:00: mouth [place] ing tablet 00 every 8 Medica l (eight) Branch hours as needed for Nausea and Vomiting (N/V). sucralfate 2020-0 Yes [id number] 1g Take 1 Un gracy 1 gram 8-14 tablet by ity of tablet 00:00: mouth [place] 00 before Medical meals and Branch at bedtime. dicyclomine 2020-0 Yes [id number] 10mg Take 1 [facility] nivers (BENTYL) 10 8-14 capsule by it y of mg capsule 00:00: mouth [place] 00 every 8 Medical (eight) Branch hours as needed for Abdominal pain. ondansetron 2020-0 Yes [id number] 4mg Take 1 U nivers 4 mg 8-14 tablet by ity of disintegrat 00:00: mouth [place] ing tablet 00 every 8 Medica l (eight) Branch hours as needed for Nausea and Vomiting (N/V). sucralfate 2020-0 Yes [id number] 1g Take 1 Un gracy 1 gram 8-14 tablet by ity of tablet 00:00: mouth [place] 00 before Medical meals and Branch at bedtime. dicyclomine 2020-0 Yes [id number] 10mg Take 1 [facility] nivers (BENTYL) 10 8-14 capsule by it y of mg capsule 00:00: mouth [place] 00 every 8 Medical (eight) Branch hours as needed for Abdominal pain. ondansetron 2020-0 Yes [id number] 4mg Take 1 U nivers 4 mg 8-14 tablet by ity of disintegrat 00:00: mouth [place] ing tablet 00 every 8 Medica l (eight) Branch hours as needed for Nausea and Vomiting (N/V). sucralfate 2020-0 Yes [id number] 1g Take 1 Un gracy 1 gram 8-14 tablet by ity of tablet 00:00: mouth [place] 00 before Medical meals and Branch at bedtime. dicyclomine 2020-0 Yes [id number] 10mg Take 1 [facility] nivers (BENTYL) 10 8-14 capsule by it y of mg capsule 00:00: mouth [place] 00 every 8 Medical (eight) Branch hours as needed for Abdominal pain. ondansetron 2020-0 Yes [id number] 4mg Take 1 U nivers 4 mg 8-14 tablet by ity of disintegrat 00:00: mouth [place] ing tablet 00 every 8 Medica l (eight) Branch hours as needed for Nausea and Vomiting (N/V). sucralfate 2020-0 Yes [id number] 1g Take 1 Un gracy 1 gram 8-14 tablet by ity of tablet 00:00: mouth [place] 00 before Medical meals and Branch at bedtime. dicyclomine 2020-0 Yes [id number] 10mg Take 1 U nivers (BENTYL) 10 8-14 capsule by it y of mg capsule 00:00: mouth [place] 00 every 8 Medical (eight) Branch hours as needed for Abdominal pain. ondansetron 2020-0 Yes [id number] 4mg Take 1 U nivers 4 mg 8-14 tablet by ity of disintegrat 00:00: mouth [place] ing tablet 00 every 8 Medica l (eight) Branch hours as needed for Nausea and Vomiting (N/V). sucralfate 2020-0 Yes [id number] 1g Take 1 Un gracy 1 gram 8-14 tablet by ity of tablet 00:00: mouth [place] 00 before Medical meals and Branch at bedtime. dicyclomine 2020-0 Yes [id number] 10mg Take 1 [facility]ivers (BENTYL) 10 8-14 capsule by it y of mg capsule 00:00: mouth [place] 00 every 8 Medical (eight) Branch hours as needed for Abdominal pain. ondansetron 2020-0 Yes [id number] 4mg Take 1 U nivers 4 mg 8-14 tablet by ity of disintegrat 00:00: mouth [place] ing tablet 00 every 8 Medica l (eight) Branch hours as needed for Nausea and Vomiting (N/V). sucralfate 2020-0 Yes [id number] 1g Take 1 Un gracy 1 gram 8-14 tablet by ity of tablet 00:00: mouth [place] 00 before Medical meals and Branch at bedtime. dicyclomine 2020-0 Yes [id number] 10mg Take 1 U nivers (BENTYL) 10 8-14 capsule by it y of mg capsule 00:00: mouth [place] 00 every 8 Medical (eight) Branch hours as needed for Abdominal pain. ondansetron 2020-0 Yes [id number] 4mg Take 1 U nivers 4 mg 8-14 tablet by ity of disintegrat 00:00: mouth [place] ing tablet 00 every 8 Medica l (eight) Branch hours as needed for Nausea and Vomiting (N/V). sucralfate 2020-0 Yes [id number] 1g Take 1 Un gracy 1 gram 8-14 tablet by ity of tablet 00:00: mouth [place] 00 before Medical meals and Branch at bedtime. dicyclomine 2020-0 Yes [id number] 10mg Take 1 U nivers (BENTYL) 10 8-14 capsule by it y of mg capsule 00:00: mouth [place] 00 every 8 Medical (eight) Branch hours as needed for Abdominal pain. ondansetron 2020-0 Yes [id number] 4mg Take 1 U nivers 4 mg 8-14 tablet by ity of disintegrat 00:00: mouth [place] ing tablet 00 every 8 Medica l (eight) Branch hours as needed for Nausea and Vomiting (N/V). sucralfate 2020-0 Yes [id number] 1g Take 1 Un gracy 1 gram 8-14 tablet by ity of tablet 00:00: mouth [place] 00 before Medical meals and Branch at bedtime. dicyclomine 2020-0 Yes [id number] 10mg Take 1 [facility]ivers (BENTYL) 10 8-14 capsule by it y of mg capsule 00:00: mouth [place] 00 every 8 Medical (eight) Branch hours as needed for Abdominal pain. ondansetron 2020-0 Yes [id number] 4mg Take 1 U nivers 4 mg 8-14 tablet by ity of disintegrat 00:00: mouth [place] ing tablet 00 every 8 Medica l (eight) Branch hours as needed for Nausea and Vomiting (N/V). sucralfate 2020-0 Yes [id number] 1g Take 1 Un gracy 1 gram 8-14 tablet by ity of tablet 00:00: mouth [place] 00 before Medical meals and Branch at bedtime. dicyclomine 2020-0 Yes [id number] 10mg Take 1 [facility]ivers (BENTYL) 10 8-14 capsule by it y of mg capsule 00:00: mouth [place] 00 every 8 Medical (eight) Branch hours as needed for Abdominal pain. ondansetron 2020-0 Yes [id number] 4mg Take 1 U nivers 4 mg 8-14 tablet by ity of disintegrat 00:00: mouth [place] ing tablet 00 every 8 Medica l (eight) Branch hours as needed for Nausea and Vomiting (N/V). sucralfate 2020-0 Yes [id number] 1g Take 1 Un [facility] 1 gram 8-14 tablet by ity of tablet 00:00: mouth [place] 00 before Medical meals and Branch at bedtime. dicyclomine 2020-0 Yes [id number] 10mg Take 1 [facility]ivers (BENTYL) 10 8-14 capsule by it y of mg capsule 00:00: mouth [place] 00 every 8 Medical (eight) Branch hours as needed for Abdominal pain. ondansetron 2020-0 Yes [id number] 4mg Take 1 U nivers 4 mg 8-14 tablet by ity of disintegrat 00:00: mouth [place] ing tablet 00 every 8 Medica l (eight) Branch hours as needed for Nausea and Vomiting (N/V). sucralfate 2020-0 Yes [id number] 1g Take 1 Un gracy 1 gram 8-14 tablet by ity of tablet 00:00: mouth [place] 00 before Medical meals and Branch at bedtime. dicyclomine 2020-0 Yes [id number] 10mg Take 1 U nivers (BENTYL) 10 8-14 capsule by it y of mg capsule 00:00: mouth [place] 00 every 8 Medical (eight) Branch hours as needed for Abdominal pain. ondansetron 2020-0 Yes [id number] 4mg Take 1 U nivers 4 mg 8-14 tablet by ity of disintegrat 00:00: mouth [place] ing tablet 00 every 8 Medica l (eight) Branch hours as needed for Nausea and Vomiting (N/V). sucralfate 2020-0 Yes [id number] 1g Take 1 Un gracy 1 gram 8-14 tablet by ity of tablet 00:00: mouth [place] 00 before Medical meals and Branch at bedtime. dicyclomine 2020-0 Yes [id number] 10mg Take 1 U nivers (BENTYL) 10 8-14 capsule by it y of mg capsule 00:00: mouth [place] 00 every 8 Medical (eight) Branch hours as needed for Abdominal pain. ondansetron 2020-0 Yes [id number] 4mg Take 1 U nivers 4 mg 8-14 tablet by ity of disintegrat 00:00: mouth [place] ing tablet 00 every 8 Medica l (eight) Branch hours as needed for Nausea and Vomiting (N/V). sucralfate 2020-0 Yes [id number] 1g Take 1 Un gracy 1 gram 8-14 tablet by ity of tablet 00:00: mouth [place] 00 before Medical meals and Branch at bedtime. dicyclomine 2020-0 Yes [id number] 10mg Take 1 U nivers (BENTYL) 10 8-14 capsule by it y of mg capsule 00:00: mouth [place] 00 every 8 Medical (eight) Branch hours as needed for Abdominal pain. ondansetron 2020-0 Yes [id number] 4mg Take 1 U nivers 4 mg 8-14 tablet by ity of disintegrat 00:00: mouth [place] ing tablet 00 every 8 Medica l (eight) Branch hours as needed for Nausea and Vomiting (N/V). dicyclomine 2020-0 Yes [id number] 10mg Take 1 U nivers (BENTYL) 10 8-14 capsule by it y of mg capsule 00:00: mouth [place] 00 every 8 Medical (eight) Branch hours as needed for Abdominal pain. dicyclomine 2020-0 Yes [id number] 10mg Take 1 U nivers (BENTYL) 10 8-14 capsule by it y of mg capsule 00:00: mouth [place] 00 every 8 Medical (eight) Branch hours as needed for Abdominal pain. dicyclomine 2020-0 Yes [id number] 10mg Take 1 U nivers (BENTYL) 10 8-14 capsule by it y of mg capsule 00:00: mouth [place] 00 every 8 Medical (eight) Branch hours as needed for Abdominal pain. dicyclomine 2020-0 Yes [id number] 10mg Take 1 U nivers (BENTYL) 10 8-14 capsule by it y of mg capsule 00:00: mouth [place] 00 every 8 Medical (eight) Branch hours as needed for Abdominal pain. dicyclomine 2020-0 Yes [id number] 10mg Take 1 U nivers (BENTYL) 10 8-14 capsule by it y of mg capsule 00:00: mouth [place] 00 every 8 Medical (eight) Branch hours as needed for Abdominal pain. dicyclomine 2020-0 Yes [id number] 10mg Take 1 U nivers (BENTYL) 10 8-14 capsule by it y of mg capsule 00:00: mouth [place] 00 every 8 Medical (eight) Branch hours as needed for Abdominal pain. dicyclomine 2020-0 Yes [id number] 10mg Take 1 U nivers (BENTYL) 10 8-14 capsule by it y of mg capsule 00:00: mouth [place] 00 every 8 Medical (eight) Branch hours as needed for Abdominal pain. dicyclomine 2020-0 Yes [id number] 10mg Take 1 U nivers (BENTYL) 10 8-14 capsule by it y of mg capsule 00:00: mouth [place] 00 every 8 Medical (eight) Branch hours as needed for Abdominal pain. dicyclomine 2020-0 Yes [id number] 10mg Take 1 U nivers (BENTYL) 10 8-14 capsule by it y of mg capsule 00:00: mouth [place] 00 every 8 Medical (eight) Branch hours as needed for Abdominal pain. dicyclomine 2020-0 Yes [id number] 10mg Take 1 U nivers (BENTYL) 10 8-14 capsule by it y of mg capsule 00:00: mouth [place] 00 every 8 Medical (eight) Branch hours as needed for Abdominal pain. dicyclomine 2020-0 Yes [id number] 10mg Take 1 U nivers (BENTYL) 10 8-14 capsule by it y of mg capsule 00:00: mouth [place] 00 every 8 Medical (eight) Branch hours as needed for Abdominal pain. sucralfate 2019-2022- No [id number] 1g Take 1 U nivers 1 gram 8-14 04-25 tablet by ity of tablet 00:00: 00:00 mouth [place] 00 :00 before Medical meals and Branch at bedtime. ondansetron 2022- No [id number] 4mg Take 1 [facility] 4 mg 8-14 04-25 tablet by ity of disintegrat 00:00: 00:[place] tablet 00 :00 every 8 Medica l (eight) Branch hours as needed for Nausea and Vomiting (N/V). sucralfate 2022- No [id number] 1g Take 1 U nivers 1 gram 8-14 04-25 tablet by ity of tablet 00:00: 00:00 mouth [place] 00 :00 before Medical meals and Branch at bedtime. ondansetron 2022- No [id number] 4mg Take 1 Univers 4 mg 8-14 04-25 tablet by ity of disintegrat 00:00: 00:00 [place] tablet 00 :00 every 8 Medica l (eight) Branch hours as needed for Nausea and Vomiting (N/V). sucralfate 2022- No [id number] 1g Take 1 U nivers 1 gram 8-14 04-25 tablet by ity of tablet 00:00: 00:00 mouth [place] 00 :00 before Medical meals and Branch at bedtime. ondansetron 2022- No [id number] 4mg Take 1 Univers 4 mg 8-14 04-25 tablet by ity of disintegrat 00:00: 00:[place] tablet 00 :00 every 8 Medica l (eight) Branch hours as needed for Nausea and Vomiting (N/V). omeprazole 2019-0 2020- No [id number] 20mg Take 1 U nivers 20 mg 07-15 capsule by ity of capsule 00:00: 04:59 mouth [place] 00 :00 daily for Medical 30 days. [place] omeprazole 2019-0 2020- No [id number] 20mg Take 1 U nivers 20 mg 07-15 capsule by ity of capsule 00:00: 04:59 mouth [place] 00 :00 daily for Medical 30 days. [place] omeprazole 2019-0 2020- No [id number] 20mg Take 1 U nivers 20 mg 07-15 capsule by ity of capsule 00:00: 04:59 mouth [place] 00 :00 daily for Medical 30 days. [place] omeprazole 2019-0 2020- No [id number] 20mg Take 1 U nivers 20 mg 07-15 capsule by ity of capsule 00:00: 04:59 mouth [place] 00 :00 daily for Medical 30 days. [place] omeprazole 2019-0 2020- No [id number] 20mg Take 1 U nivers 20 mg 07-15 capsule by ity of capsule 00:00: 04:59 mouth [place] 00 :00 daily for Medical 30 days. [place] omeprazole 2019-0 2020- No [id number] 20mg Take 1 U nivers 20 mg 07-15 capsule by ity of capsule 00:00: 04:59 mouth [place] 00 :00 daily for Medical 30 days. [place] omeprazole 2019-0 2020- No [id number] 20mg Take 1 U nivers 20 mg 07-15 capsule by ity of capsule 00:00: 04:59 mouth [place] 00 :00 daily for Medical 30 days. [place] omeprazole 2019-0 2020- No [id number] 20mg Take 1 U nivers 20 mg 07-15 capsule by ity of capsule 00:00: 04:59 mouth [place] 00 :00 daily for Medical 30 days. [place] enoxaparin 2019-0 Yes 40mg 40 mg, Unive rs (LOVENOX) 4-21 Subcutaneo ity of injection 14:00: [place] 00 First dose Medical on Sat Branch 03/22/20 at 0900, Until Discontinu ed, Routine ondansetron 2020-0 Yes 4mg 4 mg, Slow Univers (ZOFRAN -21 IV Push, ity of (PF)) 09:23: Q6HPRN, [place] injection 4 44 Starting Medi dorothy mg [facility] 03/22/20 at 0423, Until Discontinu ed, Routine, Nausea and Vomiting (N/V) ketorolac 2020-0 Yes 15mg 15 mg, Univer s (TORADOL) 21 Slow IV ity of injection 09:23: Push, [place] 15 mg 14 Q6HPRN, 4 Medical doses, Branch Starting e 03/22/20 at 0423, Until Discontinu ed, Routine, chest pain
Fa culty member approving Restricted medication : SANJAY LIND acetaminoph 2020-0 Yes 650mg 650 mg, Un gracy en 4-21 Oral, ity of (TYLENOL) 09:22: Q6HPRN, [place] tablet 650 49 Starting Medic al mg [facility] 03/22/20 at 0422, Until Discontinu ed, Routine, Pain (scale 1-3) ondansetron 2020-0 2020- No 4mg 4 mg, Slow Univers (ZOFRAN -22 03-21 IV Push, ity of (PF)) 07:15: 07:14 ONCE, 1 [place] injection 4 00 :00 dose, e Med ical mg 03/22/20 at Branch 0215, MATTHEW ondansetron 2018-12 2020- No [id number] 4mg Take 1 Univers (ZOFRAN 2-25 -21 tablet by ity of ODT) 4 mg 00:00: 00:00 mouth [place] disintegrat 00 :00 every 8 Medic al ing tablet (eight) Branch hours as needed for Nausea and Vomiting (N/V). ketorolac 2018-12 2020- No [id number] 10mg Take 1 Univers 10 mg 2-25 -21 tablet by ity of tablet 00:00: 00:00 mouth [place] 00 :00 every 6 Medical (six) Branch hours as needed for Pain (scale 1-3). No known No Univers medications ity [facility] No known No [facility] No known No Univers medications ity of [facility] No known No Univers medications ity of [facility] Immunizations Ordered Filled Immunization Date Status Comments [facility] e Immunization Name Name Influenza Virus 2017-09-26 Completed Universit y of Vaccine Quad IM 3+ 00:00:00 [facility] Influenza Virus 2017-09-26 Completed Universit y of Vaccine Quad IM 3+ 00:00:00 [facility] Influenza Virus 2017-09-26 Completed Universit y of Vaccine Quad IM 3+ 00:00:00 [facility] Influenza Virus 2017-09-26 Completed Universit y of Vaccine Quad IM 3+ 00:00:00 [facility] Influenza Virus 2017-09-26 Completed Universit y of Vaccine Quad IM 3+ 00:00:00 [facility] Influenza Virus 2017-09-26 Completed Universit y of Vaccine Quad IM 3+ 00:00:00 [facility] Influenza Virus 2017-09-26 Completed Universit y of Vaccine Quad IM 3+ 00:00:00 [facility] Influenza Virus 2017-09-26 Completed Universit y of Vaccine Quad IM 3+ 00:00:00 [facility] Influenza Virus 2017-09-26 Completed Universit y of Vaccine Quad IM 3+ 00:00:00 [facility] Influenza Virus 2017-09-26 Completed Universit y of Vaccine Quad IM 3+ 00:00:00 [facility] Influenza Virus 2017-09-26 Completed Universit y of Vaccine Quad IM 3+ 00:00:00 [facility] Influenza Virus 2017-09-26 Completed Universit y of Vaccine Quad IM 3+ 00:00:00 [facility] Influenza Virus 2017-09-26 Completed Universit y of Vaccine Quad IM 3+ 00:00:00 [facility] Influenza Virus 2017-09-26 Completed Universit y of Vaccine Quad IM 3+ 00:00:00 [facility] Influenza Virus 2017-09-26 Completed Universit y of Vaccine Quad IM 3+ 00:00:00 [facility] Influenza Virus 2017-09-26 Completed Universit y of Vaccine Quad IM 3+ 00:00:00 [facility] Influenza Virus 2017-09-26 Completed Universit y of Vaccine Quad IM 3+ 00:00:00 [facility] Influenza Virus 2017-09-26 Completed Universit y of Vaccine Quad IM 3+ 00:00:00 [facility] Influenza Virus 2017-09-26 Completed Universit y of Vaccine Quad IM 3+ 00:00:00 [facility] Influenza Virus 2017-09-26 Completed Universit y of Vaccine Quad IM 3+ 00:00:00 [facility] Influenza Virus 2017-09-26 Completed Universit y of Vaccine Quad IM 3+ 00:00:00 [facility] Influenza Virus 2017-09-26 Completed Universit y of Vaccine Quad IM 3+ 00:00:00 [facility] Influenza Virus 2017-09-26 Completed Universit y of Vaccine Quad IM 3+ 00:00:00 [facility] Influenza Virus 2017-09-26 Completed Universit y of Vaccine Quad IM 3+ 00:00:00 [facility] Influenza Virus 2017-09-26 Completed Universit y of Vaccine Quad IM 3+ 00:00:00 [facility] Influenza Virus 2017-09-26 Completed Universit y of Vaccine Quad IM 3+ 00:00:00 [facility] Influenza Virus 2017-09-26 Completed Universit y of Vaccine Quad IM 3+ 00:00:00 [facility] Influenza Virus 2017-09-26 Completed Universit y of Vaccine Quad IM 3+ 00:00:00 [facility] Influenza Virus 2017-09-26 Completed Universit y of Vaccine Quad IM 3+ 00:00:00 [facility] Influenza Virus 2017-09-26 Completed Universit y of Vaccine Quad IM 3+ 00:00:00 [facility] Influenza Virus 2017-09-26 Completed Universit y of Vaccine Quad IM 3+ 00:00:00 [facility] Influenza Virus 2017-09-26 Completed Universit y of Vaccine Quad IM 3+ 00:00:00 [facility] Influenza Virus 2017-09-26 Completed Universit y of Vaccine Quad IM 3+ 00:00:00 [facility] Influenza Virus 2017-09-26 Completed Universit y of Vaccine Quad IM 3+ 00:00:00 [facility] Influenza Virus 2017-09-26 Completed Universit y of Vaccine Quad IM 3+ 00:00:00 [facility] Influenza Virus 2017-09-26 Completed Universit y of Vaccine Quad IM 3+ 00:00:00 [facility] Influenza Virus 2017-09-26 Completed Universit y of Vaccine Quad IM 3+ 00:00:00 [facility] Influenza Virus 2017-09-26 Completed Universit y of Vaccine Quad IM 3+ 00:00:00 [facility] Influenza Virus 2017-09-26 Completed Universit y of Vaccine Quad IM 3+ 00:00:00 [facility] Vital Signs Vital Name Observation Time Observation Value Comments Source WEIGHT 2023-04-23 57.6 kg 03:00:00 WEIGHT 2023-04-23 57.6 kg 03:00:00 WEIGHT 2023-04-23 57.6 kg 03:00:00 Systolic blood 2023-04-08 143 mm[Hg] University of pressure 16:08:00 [facility] Diastolic blood 2023-04-08 91 mm[Hg] University o f pressure 16:08:00 [facility] Heart rate 2023-04-08 87 /min University of 16:08:00 [facility] Body temperature 2023-04-08 35.89 [place] University of 16:08:00 [facility] Body height 2023-04-08 152.4 cm University of 16:08:00 [facility] Body weight 2023-04-08 60.51 kg University of 16:08:00 [facility] BMI 2023-04-08 26.05 kg/m2 University of 16:08:00 [facility] Heart rate 2023-03-27 86 /min University of 18:25:00 [facility] Respiratory rate 2023-03-27 15 /min University of 18:25:00 [facility] Oxygen saturation 2023-03-27 99 /min [facility] in Arterial blood 18:25:00 [facility] Pulse oximetry [place] Systolic blood 2023-03-27 124 mm[Hg] University of pressure 18:15:00 [facility] Diastolic blood 2023-03-27 95 mm[Hg] University o f pressure 18:15:00 [facility] Body temperature 2023-03-27 36 [place] University of 17:52:00 [facility] Body height 2023-03-27 152.4 cm University of 14:46:00 [facility] Body weight 2023-03-27 59.421 kg University of 14:46:00 [facility] BMI 2023-03-27 25.58 kg/m2 University of 14:46:00 [facility] Systolic blood 2023-03-27 141 mm[Hg] University of pressure 14:47:00 [facility] Diastolic blood 2023-03-27 87 mm[Hg] University o f pressure 14:47:00 [facility] Heart rate 2023-03-27 95 /min University of 14:47:00 [facility] Body temperature 2023-03-27 36.67 [place] University of 14:46:00 [facility] Respiratory rate 2023-03-27 14 /min University of 14:46:00 [facility] Body height 2023-03-27 152.4 cm University of 14:46:00 [facility] Body weight 2023-03-27 59.421 kg University of 14:46:00 [facility] BMI 2023-03-27 25.58 kg/m2 University of 14:46:00 [facility] Oxygen saturation 2023-03-27 98 /min [facility] in Arterial blood 14:46:00 [facility] by Pulse oximetry [place] Systolic blood 2023-03-25 131 mm[Hg] University of pressure 20:46:00 [facility] Diastolic blood 2023-03-25 87 mm[Hg] University o f pressure 20:46:00 [facility] Heart rate 2023-03-25 114 /min University of 20:46:00 [facility] Body temperature 2023-03-25 36.56 [place] University of 20:46:00 [facility] Body height 2023-03-25 152.4 cm University of 20:46:00 [facility] Body weight 2023-03-25 61.598 kg University of 20:46:00 [facility] BMI 2023-03-25 26.52 kg/m2 University of 20:46:00 [facility] Systolic blood 2023-03-16 134 mm[Hg] University of pressure 14:40:00 [facility] Diastolic blood 2023-03-16 90 mm[Hg] University o f pressure 14:40:00 [facility] Heart rate 2023-03-16 87 /min University of 14:40:00 [facility] Body temperature 2023-03-16 37.28 [place] University of 14:40:00 [facility] Respiratory rate 2023-03-16 16 /min University of 14:40:00 [facility] Body height 2023-03-16 152.4 cm University of 14:40:00 [facility] Body weight 2023-03-16 56.7 kg University of 14:40:00 [facility] BMI 2023-03-16 24.41 kg/m2 University of 14:40:00 [facility] Branch Oxygen saturation 2023-03-16 99 /min University of in Arterial blood 14:40:00 [facility] dorothy by Pulse oximetry Branch Systolic blood 2020-12-26 115 mm[Hg] University of pressure 09:00:00 [facility] Diastolic blood 2020-12-26 76 mm[Hg] University o f pressure 09:00:00 [facility] Heart rate 2020-12-26 78 /min University of 09:00:00 [facility] Body temperature 2020-12-26 36.22 [place] University of 09:00:00 [facility] Branch Respiratory rate 2020-12-26 16 /min University of 09:00:00 [facility] Oxygen saturation 2020-12-26 100 /min University of in Arterial blood 09:00:00 [facility] by Pulse oximetry Branch Body weight 2020-12-26 53.978 kg University of 00:27:00 [facility] BMI 2020-12-26 24.04 kg/m2 University of 00:27:00 [facility] Systolic blood 2020-12-26 115 mm[Hg] University of pressure 09:00:00 [facility] Diastolic blood 2020-12-26 76 mm[Hg] University o f pressure 09:00:00 [facility] Heart rate 2020-12-26 78 /min University of 09:00:00 [facility] Body temperature 2020-12-26 36.22 [place] University of 09:00:00 [facility] Respiratory rate 2020-12-26 16 /min University of 09:00:00 [facility] Oxygen saturation 2020-12-26 100 /min University of in Arterial blood 09:00:00 [facility] by Pulse oximetry Branch Body weight 2020-12-26 53.978 kg University of 00:27:00 [facility] BMI 2020-12-26 24.04 kg/m2 University of 00:27:00 [facility] Branch Systolic blood 2020-12-25 92 mm[Hg] University of pressure 22:30:00 [place] [facility] Branch Diastolic blood 2020-12-25 59 mm[Hg] University o f pressure 22:30:00 [facility] Heart rate 2020-12-25 91 /min University of 22:30:00 [place] [facility] Respiratory rate 2020-12-25 14 /min University of 22:30:00 [facility] Oxygen saturation 2020-12-25 100 /min University of in Arterial blood 22:30:00 [place] Medi dorothy by Pulse oximetry Branch Body temperature 2020-12-25 36.89 Yarelis University of 16:07:00 [facility] Body height 2020-12-25 149.9 cm University of 16:07:00 [facility] Body weight 2020-12-25 53.978 kg University of 16:07:00 [facility] BMI 2020-12-25 24.04 kg/m2 University of 16:07:00 [facility] Systolic blood 2020-12-25 92 mm[Hg] University of pressure 22:30:00 [facility] Diastolic blood 2020-12-25 59 mm[Hg] University o f pressure 22:30:00 [facility] Heart rate 2020-12-25 91 /min University of :30:00 [facility] Respiratory rate 2020-12-25 14 /min University of :30:00 [facility] Oxygen saturation 2020-12-25 100 /min University of in Arterial blood 22:30:00 [facility] by Pulse oximetry Branch Body temperature 2020-12-25 36.89 Yarelis University of 16:07:00 [facility] Body height 2020-12-25 149.9 cm University of 16:07:00 [facility] Body weight 2020-12-25 53.978 kg University of 16:07:00 [facility] BMI 2020-12-25 24.04 kg/m2 University of 16:07:00 [facility] Systolic blood 2020-07-26 146 mm[Hg] University of pressure 20:54:00 [facility] Diastolic blood 2020-07-26 96 mm[Hg] University o f pressure 20:54:00 [facility] Heart rate 2020-07-26 91 /min University of 19:55:00 [facility] Body temperature 2020-07-26 36.78 Yarelis University of 19:55:00 [facility] Respiratory rate 2020-07-26 16 /min University of 19:55:00 [facility] Body height 2020-07-26 172.7 cm University of 19:55:00 [facility] Body weight 2020-07-26 54.148 kg University of 19:55:00 [facility] BMI 2020-07-26 18.15 kg/m2 University of 19:55:00 [facility] Systolic blood 2020-07-15 119 mm[Hg] University of pressure 23:00:00 [facility] Branch Diastolic blood 2020-07-15 80 mm[Hg] University o f pressure 23:00:00 [facility] Heart rate 2020-07-15 79 /min University of 23:00:00 [facility] Respiratory rate 2020-07-15 20 /min University of 23:00:00 [facility] Oxygen saturation 2020-07-15 96 /min University of in Arterial blood 23:00:00 [facility] by Pulse oximetry Branch Body temperature 2020-07-15 37.11 Yarelis University of 18:21:00 [facility] Body weight 2020-07-15 52.164 kg University of 18:21:00 [facility] BMI 2020-07-15 17.49 kg/m2 University of 18:21:00 [facility] Body temperature 2020-06-12 36.89 Yarelis [place] of 02:50:00 [facility] Respiratory rate 2020-06-12 24 /min University of 02:50:00 [facility] Body weight 2020-06-12 50.803 kg University of 02:50:00 [facility] BMI 2020-06-12 17.03 kg/m2 University of 02:50:00 [facility] Oxygen saturation 2020-06-12 98 /min University of in Arterial blood 02:50:00 [facility] by Pulse oximetry Branch Systolic blood 2020-06-12 141 mm[Hg] University of pressure 02:50:00 [facility] Diastolic blood 2020-06-12 105 mm[Hg] University o f pressure 02:50:00 [facility] Heart rate 2020-06-12 108 /min University of 02:50:00 [facility] Systolic blood 2020-03-22 131 mm[Hg] University of pressure 16:32:00 [facility] Diastolic blood 2020-03-22 81 mm[Hg] University o f pressure 16:32:00 [facility] Heart rate 2020-03-22 70 /min University of 16:32:00 [facility] Body temperature 2020-03-22 37.06 Yarelis University of 16:32:00 [facility] Respiratory rate 2020-03-22 18 /min University of 16:32:00 [facility] Oxygen saturation 2020-03-22 97 /min University of in Arterial blood 16:32:00 [facility] dorothy by Pulse oximetry Branch Body height 2020-03-22 172.7 cm patient stated [place] of 09:15:00 height on [place] [facility] admission. Branch Body weight 2020-03-22 54.942 kg bedscale upon [place] of 09:15:00 admission to [facility] floor Branch BMI 2020-03-22 18.42 kg/m2 University 09:15:00 [facility] Heart rate 2023-04-24 122 /min [facility] 11:37:03 [place] Respiratory rate 2023-04-24 16 /min [facility] 11:37:03 [place] Oxygen saturation 2023-04-24 95 /min [facility] in Arterial blood 11:37:03 [facility] nter by Pulse oximetry Body temperature 2023-04-[address] [facility] 11:36:51 [place] Systolic blood 2023-04-24 135 mm[Hg] [facility] pressure 11:36:30 [place] Diastolic blood 2023-04-24 120 mm[Hg] [facility] pressure 11:36:30 [place] Body weight 2023-04-[address] [facility] 03:[facility] Medical Center Procedures Procedure Date / Time Performing Clinician Source Performed CBC W/PLT COUNT & AUTO 2023-04-24 06:45:[address] [facility] DIFFERENTIAL Ali Center CBC W/PLT COUNT & AUTO 2023-04-24 06:45:[address] [facility] DIFFERENTIAL Ali Center CBC W/PLT COUNT & AUTO 2023-04-23 04:40:00 Dominique Jones [facility] DIFFERENTIAL Ali Center BASIC METABOLIC PANEL 2023-04-23 04:40:00 Dominique Jones CH [facility] Ali Center CBC W/PLT COUNT & AUTO 2023-04-23 04:40:00 Dominique Jones [facility] DIFFERENTIAL Ali Center CBC W/PLT COUNT & AUTO 2023-04-22 04:00:[address] [facility] DIFFERENTIAL Ali Center BASIC METABOLIC PANEL 2023-04-22 04:00:00 Dominique Jones CH [facility] CBC W/PLT COUNT & AUTO 2023-04-22 04:00:00 Dominique Jones [facility] Ali [place] FLUORO NON-SPECIFIC UP 2023-04-21 11:50:00 Fernando Pandya [facility] 1 HOUR Center CYSTOSCOPY 2023-04-21 09:45:00 [place] [facility] PROCEDURE W/ C-ARM 2023-04-21 09:45:00 Mumtaz [facility] STD PANEL - CT/GC RNA 2023-04-21 06:25:00 Dominique Jones [facility] SCREEN, URINE 2023-04-21 06:25:[address] [facility] CBC W/PLT COUNT & AUTO 2023-04-21 06:22:00 Dominique Jones [facility] BASIC METABOLIC PANEL 2023-04-21 06:22:00 Dominique Jones CH [facility] HC LAB HIV-1 AG W/HIV-1&2 2023-04-21 06:22:00 Jeramielincoln hospitalChalino oconnell [facility] AB [facility] HEPATITIS C ANTIBODY 2023-04-21 06:22:00 [facility] RPR 2023-04-21 06:22:00 [facility] HE[facility]ITIS B PANEL 2023-04-21 06:22:00 [facility] center[facility] oconnell [facility] MAGNESIUM 2023-04-21 06:22:00 [facility] PHOSPHORUS 2023-04-21 06:22:00 [facility] PROTHROMBIN TIME/INR 2023-04-21 06:22:00 [facility] TYPE AND SCREEN, 2023-04-21 06:22:00 Dominique Jones [facility] AUTOMATED Ali Center CBC W/PLT COUNT & AUTO 2023-04-21 06:22:00 DestineeDyllan [facility] S [facility] DIFFERENTIAL Center URINE CULTURE 2023-04-21 01:43:00 Destinee Dyllan [facility] URINALYSIS W/ REFLEX 2023-04-21 01:43:00 Destinee [facility] URINE CULTURE Center MEDICATION CORRESPONDENCE 2023-03-29 05:01:00 Doctor Unassigned, No [facility] [place] TIME OR 2023-03-27 17:22:00 Dyllan Weller [facility] (NON-REPORTABLE) Medical [place] TIME OR 2023-03-27 17:22:00 Dyllan Weller [facility] (NON-REPORTABLE) [facility] METACARPAL ORIF 2023-03-27 15:52:00 Yonas Fitzgerald [facility] NERVE BLOCK 2023-03-27 14:54:[address] [facility] ASSIGNMENT OF BENEFITS 2023-03-27 14:19:17 Doctor Unassigned, No [facility] XR SCAPULA LEFT 2023-03-25 21:23:00 Dyllan Weller [facility] XR SHOULDER 2+ VW LEFT 2023-03-25 21:23:00 Dyllan Weller [facility] XR HAND 3+ VW RIGHT 2023-03-25 21:23:00 Dyllan Weller [facility] ASSIGNMENT OF BENEFITS 2023-03-25 19:49:51 Doctor Unassigned, No [facility] XR HAND 3+ VW RIGHT 2023-03-16 15:18:48 Mojgan Shah [facility] NOTICE OF PRIVACY 2023-03-16 14:35:26 Doctor Unassigned, No [facility] PRACTICES [facility] CONSENT/REFUSAL FOR 2023-03-16 14:34:22 Doctor Unassigned, [facility] REFERRAL- 2023-03-04 05:01:00 Doctor Unassigned, No [facility] REQUEST/RESPONSE Name [facility] XR HAND 3+ VW LEFT 2020-12-26 09:21:[address] [facility] CT HEAD WO CONTRAST 2020-12-26 05:48:00 Yonas Perea [facility] ETHANOL 2020-12-25 21:54:00 [facility] ETHANOL 2020-12-25 20:21:00 [facility]yn[facility] POCT TEST 2020-12-25 18:07:00 Mynor Hollis [facility] ADC / LCC - DRUG SCREEN 2020-12-25 18:05:00 Mynor Hollis [facility] TRIAGE [facility] XR KUB 2020-12-25 17:06:45 [facility]ynor [facility] COVID-19 (ID NOW RAPID 2020-12-25 16:55:00 Mynor Hollis [facility] TESTING) Medical Branch BASIC METABOLIC PANEL 2020-12-25 16:19:00 Mynor Hollis [facility] (NA, K, CL, CO2, GLUCOSE, Medica l Branch BUN, CREATININE, CA) ETHANOL 2020-12-25 16:19:00 Myn[facility] CBC WITH DIFF 2020-12-25 16:19:00 Mynor [facility] ASSIGNMENT OF BENEFITS 2020-07-26 19:40:02 Doctor Unassigned, No [facility] Name [facility] CT ABDOMEN PELVIS W 2020-07-15 22:13:14 Dhruv Briggs [facility] CONTRAST [facility] POCT TEST 2020-07-15 18:47:00 Dhruv Briggs [facility] COMP. METABOLIC PANEL 2020-07-15 18:45:00 Dhruv Briggs [facility] ([id number]) Medical Branch CBC WITH DIFF 2020-07-15 18:45:00 Singer [facility] URINALYSIS 2020-07-15 18:45:00 Singer [facility] COVID-19 (ID NOW RAPID 2020-07-15 18:45:00 Dhruv Briggs [facility]) [facility] CONSENT/REFUSAL FOR 2020-07-15 18:15:15 Doctor Unassigned, No [facility] DI[facility] TREATMENT Name Medical Branch XR CHEST 1 VW 2020-06-12 21:33:46 Andrew Limon [place] o f [facility] NOTICE OF PRIVACY 2020-06-12 20:57:27 Doctor Unassigned, No [facility] PRACTICES Name Medical Branch CONSENT/REFUSAL FOR 2020-06-12 20:53:21 Doctor Unassigned, No [facility] DIAGNOSIS AND TREATMENT Name Medical Branch ECHO ROUTINE W/DOPPLER 2020-03-22 14:40:35 Alex Thomas [facility] COLOR [facility] XR CHEST 1 VW COVID 2020-03-22 07:40:01 Shun Benedict [facility] CORONAVIRUS COVID-19 2020-03-22 07:16:00 Shun Benedict [facility] TESTING [facility] LIPASE 2020-03-22 07:14:00 Shun Benedict [facility] TROPONIN I 2020-03-22 07:14:00 Shun Benedict [facility] COMP. METABOLIC PANEL 2020-03-22 07:14:00 Shun Benedict [facility] ([id number]) [facility] CBC WITH DIFFERENTIAL 2020-03-22 07:14:00 Shun Benedict [facility] EKG-12 LEAD 2020-03-22 07:07:34 Shun Benedict [facility] EKG-12 LEAD 2020-03-22 07:01:19 Shun Benedict [facility] Plan of Care Planned Activity Planned Date [...] Medical Center DEPRESSION SCREENING (12+)] Future Scheduled 2022-08-[address] [facility] Test 00:00:00 (#1) [code = Medical Center INFLUENZA VACCINE (#1)] Future Scheduled 2021-12-[address] [facility] Test 00:00:00 (12+) [code = Medical Center DEPRESSION SCREENING (12+)] Future Scheduled [address] [facility] Test 00:00:00 malignant neoplasm of Medica l Center cervix (procedure) [code = 685629079] Future Scheduled [address] [facility] [facility] Test 00:00:00 malignant neoplasm of Medica l Center cervix (procedure) [code = 027284122] Future Scheduled [address] [facility] [facility] Test 00:00:00 malignant neoplasm of Medica l Center cervix (procedure) [code = 721893382] Future Scheduled [address] [facility] Test 00:00:00 malignant neoplasm of Medica l Center cervix (procedure) [code = 360561892] Future Scheduled [address] [facility] Test 00:00:00 malignant neoplasm of Medica l Center cervix (procedure) [code = 523603568] Future Scheduled 1997 DTAP/TDAP/TD VACCINES CH I [...] Type Clinicians Facility Department ID 2021-09-30 Emergency [facility] [id number] Univers 19:08:09 ity [facility] 2021-09-29 Emergency [facility] [id number] Univers 12:33:46 ity [facility] 2021-09-29 Emergency [facility] [id number] Univers 06:13:55 ity [facility] 2021-09-29 Emergency [facility] [id number] Univers 06:12:05 ity [facility] 2020-05-12 Inpatient [facility] [id number] [facility] 00:35:00 93 [facility] 2020-02-17 Inpatient [facility] [id number] [facility] 15:56:00 19 [facility] 2023-04-20 2023-04-24 [facility] Kishor Wong [facility] [id number] [facility] 23:23:00 15:44:00 Encounter Rakan Mcgee Grazyna [facility] 2023-04-20 2023-04-24 Inpatient ER SHEILA LOVE [facility] [id number] SLE 23:23:00 15:44:00 GRAZYNA 2023-04-22 2023-04-22 Outpatient [facility] [id number] Univers 10:20:00 10:20:00 YONAS tucker [facility] 2023-04-21 2023-04-[address] [facility] [id number] 09:22:00 12:02:00 Event Firsegundo [facility] 2023-04-21 2023-04-[address] [facility] [id number] 09:00:00 11:26:00 [facility] 2023-04-20 2023-04-20 Travel [facility] [id number] [facility] 00:[facility]00 00:00:00 [facility] 2023-04-08 2023-04-08 Hospital [facility] [id number] Univers 11:18:10 23:59:00 Encounter Yonas Arnold SPECIALTY [id number] ity of CARE [id number] [facility] [place] [id number] Dc maryam GAMINO [facility] 2023-04-08 2023-04-08 Outpatient R [facility] [id number] Univers 11:30:00 12:05:00 YONAS tucker [facility] 2023-04-08 2023-04-08 Office [facility] 1.2.840.114 [id number] Univers 11:30:00 12:05:00 Visit Yonas Arnold SPECIALTY [id number] ity of CARE [id number] [facility] [place] AT [id number] Dc maryam GAMINO 198 [facility] 2023-03-29 2023-03-29 Orders Doctor WARD 1.2.840.114 [id number] Univers 00:00:00 00:00:00 Only Unassigned, DERIAN [id number] ity [address] [place] [facility] 4.2.7.2.686 Jose as [id number] [address] 2023-03-27 2023-03-27 Outpatient [facility] [id number] Univers 09:19:00 13:42:00 YONAS ity of [facility] 2023-03-27 2023-03-[address] [facility] 1.2.840.114 [id number] Univers 09:19:00 13:42:00 Encounter Yonas Arnold [facility] [id number] ity of [place].2.[place] [facility] [phone] [address] ([facility]) 2023-03-27 2023-03-27 Anesthesia Ashely Myrick [facility] 1.2.840 .114 [id number] Univers 11:08:00 12:53:00 Event Antonio Monroe SPECIALTY 3 [id number] [place] C[place].2.[place] [phone] Dc dical VICTORY 020 [facility] 2023-03-27 2023-03-[address] [facility] 1.2.840.114 [id number] Univers 10:55:00 12:38:00 Yonas Arnold SPECIALTY [id number] [place] C[id number] [id number] Dc dical VICTORY 020 [facility] 2023-03-27 2023-03-27 Orders Doctor SYLVIA 1.2.840.114 [id number] Univers 00:00:00 00:00:00 Only Unassigned, DERIAN [id number] ity of [place] [facility] 4.2.7.2.686 Jose as [phone] [address] 2023-03-25 2023-03-[address] [facility] 1.2.840.114 [id number] Univers 16:12:45 23:59:00 Encounter Yonas Aronld SPECIALTY [id number] [place].2.[place] [phone] Dc dical [place]CTORY 809 [facility] 2023-03-25 2023-03-25 [facility] 1.2.840.114 [id number] Univers 16:12:33 23:59:00 Encounter Yonas M SPECIALTY [id number] it[place] C[id number] [id number] Dc maryam GAMINO 809 [facility] 2023-03-25 2023-03-25 Outpatient R [facility] [id number] Univers 15:10:00 17:04:47 [facility] 2023-03-25 2023-03-[address] [facility] 1.2.840.114 [id number] Univers 15:10:00 17:04:47 Visit Yonas M SPECIALTY [id number] it[place] C[place]2.[place].2.686 [place] [phone] Dc maryam GAMINO 198 [facility] 2023-03-25 2023-03-25 [facility] 1.2.840.114 [id number] Univers 16:10:00 16:11:00 Encounter Yonas M SPECIALTY [id number] it[place] C[place] 4.2.7.2.686 [place] [id number] Dc maryam GAMINO 8[facility] 2023-03-25 2023-03-25 Orders Doctor SYLVIA 1.2.840.114 [id number] Univers 00:00:00 00:00:00 Only Unassigned, DERIAN [id number] ity of [place] [facility] 4.2.7.2.686 Jose as [phone] [facility] dorothy 009 Branch 2023-03-16 2023-03-16 Emergency X Mojgan SHAH [facility] ERT [id number] Univers 09:41:00 12:36:00 ity of [facility] 2023-03-16 2023-03-16 Emergency Mojgan Shah [facility] 1.2.840.114 [id number] Univers 09:41:00 12:36:00 Loyda VELAZCO 350.1.13.10 i ty of [place].2.7.2.686 [place] C[place] [id number] [facility] dorothy 084 Branch 2023-03-04 2023-03-04 Orders Doctor SYLVIA 1.2.840.114 [id number] Univers 00:00:00 00:00:00 Only Unassigned, DERIAN [id number] [place] [facility] 4.2.7.2.686 [facility] [phone] [facility] 009 Branch 2021-11-16 2021-11-18 Inpatient ER [facility] Urology [id number] SLE 02:50:00 15:40:00 GRAZNYA 2020-12-25 2020-12-26 Emergency Brit, TRAUMA 1.2.084.298 [id number] Univers 18:26:00 04:04:00 [facility] [id number] ity of 4.2.7.2.686 [facility] s [id number] [facility] 014 [place] 2020-12-25 2020-12-26 Emergency Brit, TRAUMA 1.2.992.324 [id number] 18:26:00 04:04:00 [facility] [id number] 4.2.7.2.686 [id number] [facility] 2020-12-25 2020-12-25 Emergency Harkey, [facility] 1.2.445.694 [id number] Univers 10:03:00 18:22:00 Mynor [facility] 350.1.13.10 it y of [place] 4.2.7.2.686 [facility] [id number] [address] ([facility]) 2020-12-25 2020-12-25 Emergency X HARKEY, [facility] ERT [id number] Univers 10:03:00 18:22:00 MYNOR ity of [facility] 2020-12-25 2020-12-25 Emergency Harkey, [facility] 1.2.125.046 [id number] 10:03:00 18:22:00 Mynor [facility] 350.1.13.10 League 4.2.7.2.686 [facility] [phone] [address] ([facility]) 2020-08-17 2020-08-17 Hospital [facility] 1.2.840.114 [id number] Univers 06:29:56 23:59:00 Encounter Dalia Robbins SPECIALTY [id number] [place] C[place] AT [phone] Dc dical STEVENSON [address] [place] [address] 2020-08-17 2020-08-17 [facility] 1.2.840.114 [id number] 06:29:56 23:59:00 Encounter Roswernernda R SPECIALTY 350.1.13.10 CARE 4.2.7.2.686 CENTER AT [id number] [address] 2020-08-17 2020-08-17 [facility] [id number] Univers 00:00:00 00:00:00 ROSWERNERNDA ity o [facility] 2020-08-17 2020-08-17 Outpatient R [facility] [id number] Univers 00:00:00 00:00:00 DKNDA ity o f [facility] 2020-08-10 2020-08-10 Telephone [facility] [id number] [id number] Univers 00:00:00 00:00:00 Roshunda R SERVICE DESK SPECIALIST [id number] ity of [facility] 4.2.7.2.686 Jose as MATERNAL [phone] Med ical & CHILD [address] [place] [address] 2020-08-10 2020-08-10 [facility] 1.2.707.133 [id number] 00:00:00 00:00:00 Roshunda R SERVICE DESK SPECIALIST 350.1.13.10 REGIONAL 4.2.7.2.686 MATERNAL [phone] & CHILD [address] [place] [address] 2020-07-26 2020-07-26 Office [facility] 1.2.840.114 [id number] Univers 14:44:48 15:48:25 Visit Roshunda R SERVICE DESK SPECIALIST 350.1.13.10 ity of REGIONAL 4.2.7.2.686 Jose as MATERNAL [id number] Med ical & CHILD [address] [place] [address] 2020-07-26 2020-07-26 Outpatient R [facility] [id number] Univers 14:00:00 14:00:00 ROSHUNDA ity o f [facility] 2020-07-26 2020-07-26 Orders Doctor SYLVIA 1.2.840.114 [id number] Univers 00:00:00 00:00:00 Only Unassigned, DERIAN 350.1.13.[address] [place] [facility] 4.2.7.2.686 Jose as [phone] [facility] 009 Branch 2020-07-15 2020-07-15 Emergency [facility] 1.2.714.994 [id number] Univers 13:25:00 19:02:00 Dhruv Velazco 350.1.13.10 i ty of [place] 4.2.7.2.686 [facility] [phone] [place] [address]87[address] [place] 2020-06-14 2020-06-14 Telephone SYLVIA Shi 1.2.840.114 [id number] Univers 00:00:00 00:00:00 Kaylah Lau DERIAN 350.1.13.[address] [facility] 4.2.7.2.686 Jose as [id number] [facility] 019 Branch 2020-06-12 2020-06-12 Emergency [facility] 1.2.840.114 [id number] Univers 15:56:18 17:25:00 Andrew Velazco 350.1.13.10 i ty of [place] 4.2.7.2.686 [facility] [id number] [address] 2020-06-11 2020-06-11 Emergency [facility] 1.2.846.958 [id number] Univers 21:45:46 22:38:00 Dhruv Velazco 350.1.13.10 i ty of [place] 4.2.7.2.686 [facility] [id number] [address] 2020-04-07 2020-04-07 Outpatient R NICOLE [facility] [id number] Univers 13:30:00 13:30:00 WONDIGAYE tucker o f [facility] 2020-04-07 2020-04-07 Telemedici [facility] 1.2.840.114 [id number] Univers 07:52:01 08:22:01 ne Visit Wondigaye Velazco 350.1.13.10 ity [place]2.7.2.686 [place] Profess[place] [phone] Dc dical nal 044 [facility] 2020-04-04 2020-04-04 Emergency E TON MHMADAI MHBL [id number] MHBL 16:52:00 19:36:00 DAVID 2020-03-29 2020-03-29 Outpatient R AL [facility] [id number] Univers 09:40:00 09:40:00 CHRIS tucker o f [facility] 2020-03-29 2020-03-29 Telemedici [facility] 1.2.840.114 [id number] Univers 07:59:20 08:14:20 ne Visit Chris Velazco 350.1.13.10 ity of [place].2.7.2.686 [place] Profess[place] [id number] Dc dical nal 059 [facility] 2020-03-22 2020-03-22 Emergency Shun Benedict S [facility] 1.2.840 .114 [id number] Univers 02:10:55 13:40:00 StevenfiorSanjay miller 350.1.13.10 ity of [place].2.7.2.686 [place] [id number] [facility] 081 [place] 2020-03-22 2020-03-22 [facility] [id number] Univers 02:10:55 13:40:00 SANJAY tucker of [facility] 2019-08-07 2019-08-07 Emergency E MHCY MHCY 7503 MHCY 13:27:00 13:27:00 2019-04-08 2019-04-08 Emergency E MHCY MHCY 7502 MHCY 14:22:00 14:22:00 2019-03-31 2019-03-31 Emergency E MHCY MHCY 7501 MHCY 14:37:00 14:37:00 Results Test Description Test Time Test Comments Results Result Comments Source CBC W/PLT COUNT & AUTO DIFFERENTIAL 2023-04-24 06:54:34 Test Item Value Reference Range Interpretation Comme nts WHITE BLOOD CELL COUNT (BEAKER) (test code = 775) 10.3 K/ L 3.5- 10.5 RED BLOOD CELL COUNT (BEAKER) (test code = 761) 3.55 M/ L 3.93-5 .22 L HEMOGLOBIN (BEAKER) (test code = 410) 11.2 GM/DL 11.2-15.7 HEMATOCRIT (BEAKER) (test code = 411) 33.8 % 34.1-44.9 L MEAN CORPUSCULAR VOLUME (BEAKER) (test code = 753) 95 fL 79- 95 MEAN CORPUSCULAR HEMOGLOBIN (BEAKER) (test code = 751) 31.5 pg 25.6-32.2 MEAN CORPUSCULAR HEMOGLOBIN CONC (BEAKER) (test code = 752) 33.1 GM/DL 32.2-35.5 RED CELL DISTRIBUTION WIDTH (BEAKER) (test code = 412) 12.8 % 11.7-14.4 PLATELET COUNT (BEAKER) (test code = 756) 259 K/CU MM 150-450 MEAN PLATELET VOLUME (BEAKER) (test code = 754) 9.4 fL 9.4-12 .3 NUCLEATED RED BLOOD CELLS (BEAKER) (test code = 413) 0 /100 WBC 0 -0 NEUTROPHILS RELATIVE PERCENT (BEAKER) (test code = 429) 68 % LYMPHOCYTES RELATIVE PERCENT (BEAKER) (test code = 430) 18 % MONOCYTES RELATIVE PERCENT (BEAKER) (test code = 431) 7 % EOSINOPHILS RELATIVE PERCENT (BEAKER) (test code = 432) 5 % BASOPHILS RELATIVE PERCENT (BEAKER) (test code = 437) 1 % NEUTROPHILS ABSOLUTE COUNT (BEAKER) (test code = 670) 7.04 K/ L 1.56-6.13 H LYMPHOCYTES ABSOLUTE COUNT (BEAKER) (test code = 414) 1.90 K/ L 1.18-3.74 MONOCYTES ABSOLUTE COUNT (BEAKER) (test code = 415) 0.72 K/ L 0. 24-0.36 H EOSINOPHILS ABSOLUTE COUNT (BEAKER) (test code = 416) 0.55 K/ L 0.04-0.36 H BASOPHILS ABSOLUTE COUNT (BEAKER) (test code = 417) 0.05 K/ L 0. 01-0.08 IMMATURE GRANULOCYTES-RELATIVE PERCENT (BEAKER) (test code 0.50 % 0.00-1.00 = 2801) STD Panel - CT/GC [id number] 23:47:22 Test Item Value Reference Interpretation Comments Range C. trachomatis NOT DETECTED RNA, TMA (test code = 8762712) N. gonorrhoeae NOT DETECTED REFERENCE RA NGE: NOT RNA, TMA (test DETECTED Meth odology: code = 5387434) Transcriptio n Mediated Amplification ( TMA)to detect RNA. The analytical perf ormance characteristics of thisassay, when used to test SurePat h(TM) specimens haveb een determined by [facility]. Th e modificationsha ve not been cleared or approved by the FDA. This assayhas b een validated pursu ant to the CLIA regula tions andis used for clinical purpos es. For additional information, pl ease refer tohttps://educa tion.Hospicelink. Satellier/faq /QUS455(This li nk is being provided for informational/e ducatio nal purposes on ly.) CINDI (test code = Performing Lab CINDI) *QDID [facility] [address] [address] Diego Mathew MD, PhD [place] [facility] METABOLIC [id number] 06:05:43 Test Item Value Reference Range Interpretation Comments SODIUM (BEAKER) 139 meq/L 136-145 (test code = 381) POTASSIUM 3.4 meq/L 3.5-5.1 L (BEAKER) (test code = 379) CHLORIDE (BEAKER) 108 meq/L 98-107 H (test code = 382) CO2 (BEAKER) 23 meq/L 22-29 (test code = 355) BLOOD UREA 5 mg/dL 7-21 L NITROGEN (BEAKER) (test code = 354) CREATININE 0.81 mg/dL 0.57-1.25 (BEAKER) (test code = 358) GLUCOSE RANDOM 125 mg/dL 70-105 H (BEAKER) (test code = 652) CALCIUM (BEAKER) 8.0 mg/dL 8.4-10.2 L (test code = 697) EGFR (BEAKER) 92 Interpretatio n of eGFR (test code = mL/min/1.73 values Stage De scription 1092) sq m Result G1 Codi l or high >=90 G2 Mildly decreased 60-89 G3a Mildl y to moderately 45-5 9 G3b Moderately to s everely 30-44 G4 Severl y decreased 15-29 G5 Kidney failure <15Reported eGF R is based on the CKD-EPI 2020 equation that d oes not use a race coefficientEsti mated GFR is not as accur ate as Creatinine Bhumi becerra in predicting glom erular filtration rate . Estimated GFR is not appl icable for dialysis patien ts Wheel Loader Operator ID - ADMINCBC W/PLT COUNT & AUTO [id number] 05:27:38 Test Item Value Reference Range Interpretation Comments WHITE BLOOD CELL COUNT (BEAKER) 10.8 K/ L 3.5-10.5 H (test code = 775) RED BLOOD CELL COUNT (BEAKER) 3.46 M/ L 3.93-5.22 L (test code = 761) HEMOGLOBIN (BEAKER) (test code = 10.8 GM/DL 11.2-15.7 L 410) HEMATOCRIT (BEAKER) (test code = 32.7 % 34.1-44.9 L 411) MEAN CORPUSCULAR VOLUME (BEAKER) 95 fL 79-95 (test code = 753) MEAN CORPUSCULAR HEMOGLOBIN 31.2 pg 25.6-32.2 (BEAKER) (test code = 751) MEAN CORPUSCULAR HEMOGLOBIN CONC 33.0 GM/DL 32.2-35.5 (BEAKER) (test code = 752) RED CELL DISTRIBUTION WIDTH 12.6 % 11.7-14.4 (BEAKER) (test code = 412) PLATELET COUNT (BEAKER) (test 263 K/CU MM 150-450 code = 756) MEAN PLATELET VOLUME (BEAKER) 9.7 fL 9.4-12.3 (test code = 754) NUCLEATED RED BLOOD CELLS 0 /100 WBC 0-0 (BEAKER) (test code = 413) NEUTROPHILS RELATIVE PERCENT 72 % (BEAKER) (test code = 429) LYMPHOCYTES RELATIVE PERCENT 17 % (BEAKER) (test code = 430) MONOCYTES RELATIVE PERCENT 7 % (BEAKER) (test code = 431) EOSINOPHILS RELATIVE PERCENT 4 % (BEAKER) (test code = 432) BASOPHILS RELATIVE PERCENT 0 % (BEAKER) (test code = 437) NEUTROPHILS ABSOLUTE COUNT 7.76 K/ L 1.56-6.13 H (BEAKER) (test code = 670) LYMPHOCYTES ABSOLUTE COUNT 1.82 K/ L 1.18-3.74 (BEAKER) (test code = 414) MONOCYTES ABSOLUTE COUNT (BEAKER) 0.71 K/ L 0.24-0.36 H (test code = 415) EOSINOPHILS ABSOLUTE COUNT 0.44 K/ L 0.04-0.36 H (BEAKER) (test code = 416) BASOPHILS ABSOLUTE COUNT (BEAKER) 0.02 K/ L 0.01-0.08 (test code = 417) IMMATURE GRANULOCYTES-RELATIVE 0.30 % 0.00-1.00 PERCENT (BEAKER) (test code = 2801) [id number] 15:29:12 Test Item Value Reference Range Interpretation Comments RPR SCREEN (BEAKER) (test code = Nonreactive Nonreactive 420) BASIC METABOLIC [id number] 05:30:13 Test Item Value Reference Range Interpretation Comments SODIUM (BEAKER) 138 meq/L 136-145 (test code = 381) POTASSIUM 3.8 meq/L 3.5-5.1 (BEAKER) (test code = 379) CHLORIDE (BEAKER) 110 meq/L 98-107 H (test code = 382) CO2 (BEAKER) 22 meq/L 22-29 (test code = 355) BLOOD UREA 8 mg/dL 7-21 NITROGEN (BEAKER) (test code = 354) CREATININE 0.91 mg/dL 0.57-1.25 (BEAKER) (test code = 358) GLUCOSE RANDOM 101 mg/dL 70-105 (BEAKER) (test code = 652) CALCIUM (BEAKER) 8.0 mg/dL 8.4-10.2 L (test code = 697) EGFR (BEAKER) 80 Interpretatio n of eGFR (test code = mL/min/1.73 values Stage De scription 1092) sq m Result G1 Codi l or high >=90 G2 Mildly decreased 60-89 G3a Mildl y to moderately 45-5 9 G3b Moderately to s everely 30-44 G4 Severl y decreased 15-29 G5 Kidney failure <15Reported eGF R is based on the CKD-EPI 2021 equation that d oes not use a race coefficientEsti mated GFR is not as accur ate as Creatinine Bhumi becerra in predicting glom erular filtration rate . Estimated GFR is not appl icable for dialysis patien ts Wheel Loader Operator ID - MMCBC W/PLT COUNT & AUTO [id number] 05:00:11 Test Item Value Reference Range Interpretation Comments WHITE BLOOD CELL COUNT (BEAKER) 11.8 K/ L 3.5-10.5 H (test code = 775) RED BLOOD CELL COUNT (BEAKER) 3.63 M/ L 3.93-5.22 L (test code = 761) HEMOGLOBIN (BEAKER) (test code = 11.3 GM/DL 11.2-15.7 410) HEMATOCRIT (BEAKER) (test code = 34.9 % 34.1-44.9 411) MEAN CORPUSCULAR VOLUME (BEAKER) 96 fL 79-95 H (test code = 753) MEAN CORPUSCULAR HEMOGLOBIN 31.1 pg 25.6-32.2 (BEAKER) (test code = 751) MEAN CORPUSCULAR HEMOGLOBIN CONC 32.4 GM/DL 32.2-35.5 (BEAKER) (test code = 752) RED CELL DISTRIBUTION WIDTH 12.6 % 11.7-14.4 (BEAKER) (test code = 412) PLATELET COUNT (BEAKER) (test 286 K/CU MM 150-450 code = 756) MEAN PLATELET VOLUME (BEAKER) 9.9 fL 9.4-12.3 (test code = 754) NUCLEATED RED BLOOD CELLS 0 /100 WBC 0-0 (BEAKER) (test code = 413) NEUTROPHILS RELATIVE PERCENT 75 % (BEAKER) (test code = 429) LYMPHOCYTES RELATIVE PERCENT 12 % (BEAKER) (test code = 430) MONOCYTES RELATIVE PERCENT 7 % (BEAKER) (test code = 431) EOSINOPHILS RELATIVE PERCENT 5 % (BEAKER) (test code = 432) BASOPHILS RELATIVE PERCENT 0 % (BEAKER) (test code = 437) NEUTROPHILS ABSOLUTE COUNT 8.87 K/ L 1.56-6.13 H (BEAKER) (test code = 670) LYMPHOCYTES ABSOLUTE COUNT 1.45 K/ L 1.18-3.74 (BEAKER) (test code = 414) MONOCYTES ABSOLUTE COUNT (BEAKER) 0.85 K/ L 0.24-0.36 H (test code = 415) EOSINOPHILS ABSOLUTE COUNT 0.55 K/ L 0.04-0.36 H (BEAKER) (test code = 416) BASOPHILS ABSOLUTE COUNT (BEAKER) 0.03 K/ L 0.01-0.08 (test code = 417) IMMATURE GRANULOCYTES-RELATIVE 0.40 % 0.00-1.00 PERCENT (BEAKER) (test code = 2801) HEPATITIS B [id number] 12:22:27 Test Item Value Reference Range Interpretation Comments HEPATITIS B CORE TOTAL ANTIBODY Nonreactive Nonreactive (BEAKER) (test code = 497) HEPATITIS B SURFACE ANTIBODY < mIU/mL <8.0 (BEAKER) (test code = 647) HEPATITIS B SURFACE ANTIGEN (2) Nonreactive Nonreactive (BEAKER) (test code = 2585) Wheel Loader Operator ID - ADMINFL, FLUORO, NON-SPECIFIC, UP TO 1 [id number] 11:50:00 Reason for exam:->[facility] : 1980 Sex: FAn imaging unit was utilized for this procedure. No radiologist interpretation was requested. Refer to the EMR for findings. Refer to PACS for any patient radiation dose information.HIV-1 ANTIGEN WITH HIV-1/2 [id number] 11:41:16 Test Item Value Reference Range Interpretation Comments HIV-1 ANTIGEN WITH HIV 1\\T\\2 Nonreactive Nonreactive ANTIBODY (2) (BEAKER) (test code = 2586) Wheel Loader Operator ID - ADMINHEPATITIS C [id number] 11:41:11 Test Item Value Reference Range Interpretation Comments HEPATITIS C ANTIBODY (BEAKER) Nonreactive Nonreactive (test code = 367) Wheel Loader Operator ID - ADMINPregnancy Screen, [id number] 07:54:00 Test Item Value Reference Range Interpretation Comments Preg Test, Ur (test code = 2112-1) Negative Negative Lab Interpretation (test code = Normal 95461-9) [facility] [id number] 07:54:00 Test Item Value Reference Range Interpretation Comments TEST URINE (BEAKER) (test Negative Negative code = 583) BASIC METABOLIC [id number] 07:04:30 Test Item Value Reference Range Interpretation Comments SODIUM (BEAKER) 142 meq/L 136-145 (test code = 381) POTASSIUM 3.9 meq/L 3.5-5.1 (BEAKER) (test code = 379) CHLORIDE (BEAKER) 114 meq/L 98-107 H (test code = 382) CO2 (BEAKER) 22 meq/L 22-29 (test code = 355) BLOOD UREA 5 mg/dL 7-21 L NITROGEN (BEAKER) (test code = 354) CREATININE 0.74 mg/dL 0.57-1.25 (BEAKER) (test code = 358) GLUCOSE RANDOM 87 mg/dL 70-105 (BEAKER) (test code = 652) CALCIUM (BEAKER) 8.0 mg/dL 8.4-10.2 L (test code = 697) EGFR (BEAKER) 102 Interpretatio n of eGFR (test code = mL/min/1.73 values Stage De scription 1092) sq m Result G1 Codi l or high >=90 G2 Mildly decreased 60-89 G3a Mildl y to moderately 45-5 9 G3b Moderately to s everely 30-44 G4 Severl y decreased 15-29 G5 Kidney failure <15Reported eGF R is based on the CKD-EPI 2020 equation that d oes not use a race coefficientEsti mated GFR is not as accur ate as Creatinine Bhumi becerra in predicting glom erular filtration rate . Estimated GFR is not appl icable for dialysis patien ts Wheel Loader Operator ID - [id number] 07:04:30 Test Item Value Reference Range Interpretation Comments MAGNESIUM (BEAKER) (test code = 1.9 mg/dL 1.6-2.6 627) Wheel Loader Operator ID - [id number] 07:04:30 Test Item Value Reference Range Interpretation Comments PHOSPHORUS (BEAKER) (test code = 2.9 mg/dL 2.3-4.7 604) Wheel Loader Operator ID - ELIZABETHOCBC W/PLT COUNT & AUTO [id number] 06:56:04 Test Item Value Reference Range Interpretation Comments WHITE BLOOD CELL COUNT (BEAKER) 10.7 K/ L 3.5-10.5 H (test code = 775) RED BLOOD CELL COUNT (BEAKER) 3.69 M/ L 3.93-5.22 L (test code = 761) HEMOGLOBIN (BEAKER) (test code = 11.5 GM/DL 11.2-15.7 410) HEMATOCRIT (BEAKER) (test code = 34.8 % 34.1-44.9 411) MEAN CORPUSCULAR VOLUME (BEAKER) 94 fL 79-95 (test code = 753) MEAN CORPUSCULAR HEMOGLOBIN 31.2 pg 25.6-32.2 (BEAKER) (test code = 751) MEAN CORPUSCULAR HEMOGLOBIN CONC 33.0 GM/DL 32.2-35.5 (BEAKER) (test code = 752) RED CELL DISTRIBUTION WIDTH 12.8 % 11.7-14.4 (BEAKER) (test code = 412) PLATELET COUNT (BEAKER) (test 285 K/CU MM 150-450 code = 756) MEAN PLATELET VOLUME (BEAKER) 9.9 fL 9.4-12.3 (test code = 754) NUCLEATED RED BLOOD CELLS 0 /100 WBC 0-0 (BEAKER) (test code = 413) NEUTROPHILS RELATIVE PERCENT 60 % (BEAKER) (test code = 429) LYMPHOCYTES RELATIVE PERCENT 23 % (BEAKER) (test code = 430) MONOCYTES RELATIVE PERCENT 8 % (BEAKER) (test code = 431) EOSINOPHILS RELATIVE PERCENT 8 % (BEAKER) (test code = 432) BASOPHILS RELATIVE PERCENT 1 % (BEAKER) (test code = 437) NEUTROPHILS ABSOLUTE COUNT 6.43 K/ L 1.56-6.13 H (BEAKER) (test code = 670) LYMPHOCYTES ABSOLUTE COUNT 2.47 K/ L 1.18-3.74 (BEAKER) (test code = 414) MONOCYTES ABSOLUTE COUNT (BEAKER) 0.89 K/ L 0.24-0.36 H (test code = 415) EOSINOPHILS ABSOLUTE COUNT 0.81 K/ L 0.04-0.36 H (BEAKER) (test code = 416) BASOPHILS ABSOLUTE COUNT (BEAKER) 0.06 K/ L 0.01-0.08 (test code = 417) IMMATURE GRANULOCYTES-RELATIVE 0.50 % 0.00-1.00 PERCENT (BEAKER) (test code = 2801) PROTHROMBIN [id number] 06:49:20 Test Item Value Reference Range Interpretation Comments PROTIME (BEJELENA) (test code = 13.1 seconds 11.9-14.2 759) INR (BEAKER) (test code = 370) 1.01 <=5.90 RECOMMENDED COUMADIN/WARFARIN INR THERAPY RANGESSTANDARD DOSE: 2.0 - 3.0 Includes: PROPHYLAXIS for venous thrombosis, systemic embolization; TREATMENT for venous thrombosis and/or pulmonary embolus.HIGH RISK: Target INR is 2.5-3.5 for patients with mechanical heart valves.Urinalysis w/Microscopic + Reflex to [id number] 02:32:21 Test Item Value Reference Range Interpretation Comments Color, UA (test code Yellow = 5778-6) Clarity, UA (test Hazy code = 5767-9) Specific [place], UA 1.038 1.001-1.035 H (test code = 5811-5) pH, UA (test code = 6.5 5.0-8.0 5803-2) Protein, UA (test 100 mg/dL Negative A code = 77593-0) Glucose, UA (test Negative Negative code = 365) Ketones, UA (test Negative Negative code = 2514-8) Bilirubin, UA (test Negative Negative code = 11770-9) Blood, UA (test code Moderate Negative A = 90937-1) Nitrite, UA (test Positive Negative A code = 5802-4) Leukocytes, UA (test Large Negative A code = 5799-2) Urobilinogen, UA 0.2 0.2-1.0 (test code = 89853-5) RBC, UA (test code = 116 See_Comment [Autom ated 93404-8) message] The system which generated this result transmit fatemeh reference range : /HPF. The reference range was not used to interpret this result as normal/abnormal . WBC, UA (test code = 584 See_Comment [Autom ated 5821-4) message] The system which generated this result transmit fatemeh reference range : /HPF. The reference range was not used to interpret this result as normal/abnormal . Squam Epithel, UA 20 See_Comment [Automate d (test code = 87803-9) messag e] The system which generated this result transmit fatemeh reference range : /HPF. The reference range was not used to interpret this result as normal/abnormal . Specimen Source (test code = 2795) CINDI (test code = CINDI) Wheel Loader Operator ID - [auto]Wheel Loader Operator ID - tech Lab Interpretation Abnormal (test code = 80586-9) [facility] [id number] 02:32:21 Test Item Value Reference Range Interpretation Comments COLOR (BEAKER) (test code = 470) Yellow CLARITY (BEAKER) (test code = 469) Hazy SPECIFIC GRAVITY UA (BEAKER) (test 1.038 1.001-1.035 H code = 468) PH UA (BEAKER) (test code = 467) 6.5 5.0-8.0 PROTEIN UA (BEAKER) (test code = 100 mg/dL Negative A 464) GLUCOSE UA (BEAKER) (test code = Negative Negative 365) KETONES UA (BEAKER) (test code = Negative Negative 371) BILIRUBIN UA (BEAKER) (test code = Negative Negative 462) BLOOD UA (BEAKER) (test code = 461) Moderate Negative A NITRITE UA (BEAKER) (test code = Positive Negative A 465) LEUKOCYTE ESTERASE UA (BEAKER) Large Negative A (test code = 466) UROBILINOGEN UA (BEAKER) (test code 0.2 0.2-1.0 = 463) RBC UA (BEAKER) (test code = 519) 116 /HPF WBC UA (BEAKER) (test code = 520) 584 /HPF SQUAMOUS EPITHELIAL (BEAKER) (test 20 /HPF code = 516) SOURCE(BEAKER) (test code = 2795) Wheel Loader Operator ID - [auto]Wheel Loader Operator ID - techBLOOD [id number] 06:00:50 Test Item Value Reference Range Interpretation Comments CULTURE (BEAKER) (test No growth in 5 days code = 1095) The specimen volume collected for this blood culture was below the optimum (10 mL per bottle or 20 mL total). Use of lower volumes may adversely affect recovery and/or detection times of some organisms.BLOOD [id number] 06:00:50 Test Item Value Reference Range Interpretation Comments CULTURE (BEAKER) (test No growth in 5 days code = 1095) SARS-COV2/RT-PCR ([facility])2021-11-18 08:28:01 Test Item Value Reference Range Interpretation Comments SARS-COV2/RT-PCR Negative Negative The SARS-Co V-2 target (test code = nucleic acids a re not 5903045) detected in thi s specimen. Negative result [...] revoked sooner. Fact Sheet for Healthcare Providers: https://www.[employer].co m/Documents/Xpert%20Xpress%20SARS%20CoV-2/Fact%20Sheets/3023802%42IGBY-KJV-8%20 HEALTHCARE%20PROVIDERS%20FACT%20SHEET.pdf Fact Sheet for Healthcare Patients: https://www.[employer]/Documents/Xpert%20Xp ress%20SARS%20CoV-2/Fact%20Sheets/3023801%55YZBQ-VML-1%20PATIENT%20FACT%20SHEET .[id number] 06:04:17 Test Item Value Reference Range Interpretation Comments MAGNESIUM (BEAKER) 2.1 mg/dL 1.6-2.6 Specimen slightly (test code = 627) hemolyzed Wheel Loader Operator ID - NADEEM GOperator ID - NADEEM GBASIC METABOLIC [id number] 05:18:17 Test Item Value Reference Range Interpretation [...] S NOT APPLICABLE FOR DIALYSIS PATIEN TS. Wheel Loader Operator ID - NADEEM GCBC W/PLT COUNT & AUTO [id number] 04:53:25 Test Item Value Reference Range Interpretation [...] (BEAKER) (test code = 2801) BASIC METABOLIC [id number] 04:54:32 Test Item Value Reference Range Interpretation [...] S NOT APPLICABLE FOR DIALYSIS PATIEN TS. Wheel Loader Operator ID - MARIA D [id number] 04:54:32 Test Item Value Reference Range Interpretation Comments MAGNESIUM (BEAKER) (test code = 1.9 mg/dL 1.6-2.6 627) Wheel Loader Operator ID - MARIA D LCBC W/PLT COUNT & AUTO [id number] 04:16:32 Test Item Value Reference Range Interpretation [...] code = 2801) URINALYSIS W/ REFLEX URINE [id number] 09:09:42 Test Item Value Reference Range Interpretation [...] = 1521) SOURCE(BEAKER) (test code = 2795) Wheel Loader Operator ID - [auto]Wheel Loader Operator ID - techPREGNANCY SCREEN, [id number] 06:44:04 Test Item Value Reference Range Interpretation Comments TEST URINE (BEAKER) (test Negative code = 583) BASIC METABOLIC [id number] 06:03:02 Test Item Value Reference Range Interpretation [...] S NOT APPLICABLE FOR DIALYSIS PATIEN TS. Wheel Loader Operator ID - PIAYA LCBC W/PLT COUNT & AUTO [id number] 05:11:55 Test Item Value Reference Range Interpretation [...] 0-1 PERCENT (BEAKER) (test code = 2801) [id number] 22:12:00 Test Item Value Reference Range Interpretation Comments ALCOHOL (test code = 80 mg/dL 8308938628) CINDI (test code = Toxic Greater than or CINDI) equal to 80 mg/dL. NOTE: Whole blood values are approximately 10% to 15% lower than serum and plasma. [facility] 20:38[facility]00 Test Item Value Reference Range Interpretation Comments ALCOHOL (test code = 108 mg/dL 7344271864) CINDI (test code = Toxic Greater than or CINDI) equal to 80 mg/dL. NOTE: Whole blood values are approximately 10% to 15% lower than serum and plasma. [facility] / LC - DRUG SCREEN [id number] 18:24:00 Test Item Value Reference Range Interpretation Comments BENZO U (test code = Negative Negative 1753293421) SANDRA U (test code = Negative Negative 1696609660) AMPHET (test code = Negative Negative 7368075197) THC (test code = Negative Negative 2917154495) METHADONE (test code = Negative Negative 7005946662) Meth U (test code = Negative Negative 2392051357) OPIATES (test code = Negative Negative 1973424000) Cocaine Metabolite (test Presumptive Positive Negative A code = 6300413873) PROPOXY (test code = Negative Negative 6863796146) Tric U (test code = Negative Negative 8881898968) PCP (test code = Negative Negative 6688339988) OXYCOD (test code = Negative Negative 5600163940) CINDI (test code = CINDI) Urine Drug [...] testing). Lab Interpretation (test Abnormal code = 47000-2) [facility] [id number] 18:07:00 Test Item Value Reference Range Interpretation Comments POCT PREG (test code = 1605) Negative On board controls acceptable with C Present Line (test code = 3574) Lab Interpretation (test code = Normal 15866-8) [facility] NorthwestXR [id number] 17:36:18 Nonobstructive bowel gas pattern. Preliminary Report [...] bowel gas pattern.Preliminary Report Dictated by Resident: Virginia Zamorano,Ander Gonzalez MD., have reviewed this study and agree with the abovereport.[facility]COVID[facility] (ID NOW RAPID TESTING)2020-12-25 17:13:00 Test Item Value Reference Range Interpretation Comments SARS-CoV-2 Rapid ID NOW Not Detected Not Detected (test code = 84389-5) CINDI (test code = CINDI) ID NOW COVID-19 Assay is an isothermal nucleic acid amplification test intended for the qualitative detection of nucleic acid from SARS-CoV-2 viral RNA in nasopharyngeal (PREVENTIVE MEDICINE PHYSICIAN) specimens. It is used under Emergency Use [...] indicated. Lab Interpretation Normal (test code = 23143-2) [facility]20[facility] 16:37:00 Test Item Value Reference Range Interpretation Comments ALCOHOL (test code = 196 mg/dL 9509947204) CINDI (test code = Toxic Greater than or CINDI) equal to 80 mg/dL. NOTE: Whole blood values are approximately 10% to 15% lower than serum and plasma. [facility] METABOLIC PANEL (NA, K, CL, CO2, GLUCOSE, BUN, CREATININE, CA)2020-12-25 16:37:00 Test Item Value Reference Range Interpretation Comments NA (test code = 144 mmol/L 135-145 9375164279) K (test code = 4.4 mmol/L 3.5-5 1805991853) CL (test code = 109 mmol/L 98-108 H 4613902380) CO2 TOTAL (test code = 22 mmol/L 23-31 L 4283036665) AGAP (test code = 2-16 0563105164) BUN (test code = 9 mg/dL 7-23 0555155657) GLUCOSE (test code = 103 mg/dL 70-110 8922995020) CREATININE (test code = 0.66 mg/dL 0.5-1.04 4005047535) CALCIUM (test code = 8.9 mg/dL 8.6-10.6 3923408421) eGFR Calculation mL/min/1.73m2 (Non-) (test code = 0541520690) eGFR Calculation mL/min/1.73m2 () (test code = 1461245380) CINDI (test code = CINDI) Association of [...] tests). Lab Interpretation Abnormal (test code = 79674-2) [facility] WITH [id number] 16:25:00 Test Item Value Reference Range Interpretation Comments WBC (test code = See_Comment H [Automated 0390-2) message] The sy stem which generated this result transmitted reference range : 4.30 - 11.10 10*3/?L. The reference range was not used to interpret this result as normal/abnormal . RBC (test code = See_Comment [Automated 789-8) message] The sy stem which generated this [...] RDW-SD (test code = 41.1 fL 39-49.9 17091-1) RDW-CV (test code = 12.3 % 12-15.5 788-0) PLT (test code = See_Comment H [Automated 777-3) message] The sy stem which generated this result transmitted reference range : 166 - 358 10*3/ ?L. The reference r carlos was not used to interpret this result as normal/abnormal . MPV (test code = 9.2 fL 9.5-12.9 L 15787-0) NRBC/100 WBC (test See_Comment [Automat ed code = 6244128321) message] The system which generated this result transmitted reference range : 0.0 - 10.0 /100 WBCs. The refer ence range was not u sed to interpret th is result as normal/abnormal . NRBC x10^3 (test code <0.01 See_Comment [Auto mated = 1387324849) message] The s ystem which generated this result transmitted reference range : 10*3/?L. The reference range was not used to interpret this result as normal/abnormal . GRAN MAT (NEUT) % 68.0 % (test code = 770-8) IMM GRAN % (test code 0.50 % = 1199150040) LYMPH % (test code = 20.5 % 736-9) MONO % (test code = 6.6 % 5905-5) EOS % (test code = 3.9 % 713-8) BASO % (test code = 0.5 % 706-2) GRAN MAT x10^3(ANC) 8.09 10*3/uL 1.88-7.09 H (test code = 5630271205) IMM GRAN x10^3 (test 0.06 10*3/uL 0-0.06 code = 3420553527) LYMPH x10^3 (test code 2.43 10*3/uL 1.32-3.29 = 731-0) MONO x10^3 (test code 0.78 10*3/uL 0.33-0.92 = 742-7) EOS x10^3 (test code = 0.46 10*3/uL 0.03-0.39 H 711-2) BASO x10^3 (test code 0.06 10*3/uL 0.01-0.07 = 704-7) Lab Interpretation Abnormal (test code = 22735-8) [facility] (ID NOW RAPID TESTING)2020-07-15 19:30:00 Test Item Value Reference Range Interpretation Comments SARS-CoV-2 Rapid ID NOW Not Detected Not Detected (test code = 40929-5) CINDI (test code = CINDI) ID NOW COVID-19 Assay is an isothermal nucleic acid amplification test intended for the qualitative detection of nucleic acid from SARS-CoV-2 viral RNA in nasopharyngeal (PREVENTIVE MEDICINE PHYSICIAN) specimens. It is used under Emergency Use [...] indicated. Lab Interpretation Normal (test code = 95788-2) [facility] [place]. METABOLIC PANEL (86040)2020-07-15 19:20:00 Test Item Value Reference Range Interpretation Comments NA (test code = 136 mmol/L 135-145 [id number]) K (test code = 4.6 mmol/L 3.5-5 0032518784) CL (test code = 102 mmol/L 98-108 3520765122) CO2 TOTAL (test code = 21 mmol/L 23-31 L 9083739324) AGAP (test code = 2-16 5177912065) BUN (test code = 7 mg/dL 7-23 7017204844) GLUCOSE (test code = 102 mg/dL 70-110 5907597077) CREATININE (test code = 0.82 mg/dL 0.5-1.04 0691923184) TOTAL BILI (test code = 0.8 mg/dL 0.1-1.9 0958404151) CALCIUM (test code = 9.8 mg/dL 8.6-10.6 3331988034) T PROTEIN (test code = 8.4 g/dL 6.3-8.2 H 7152806937) ALBUMIN (test code = 4.8 g/dL 3.5-5 3315901293) ALK PHOS (test code = 102 U/L 34-122 5894976446) ALTv (test code = 25 U/L 5-35 1742-6) AST(SGOT) (test code = 41 U/L 13-40 H 9280403325) eGFR Calculation mL/min/1.73m2 (Non-) (test code = 2344492013) eGFR Calculation mL/min/1.73m2 () (test code = 7825345960) CINDI (test code = CINDI) Association of [...] tests). Lab Interpretation Abnormal (test code = 36710-1) [facility] Test Item Value Reference Range Interpretation Comments APPEARANCE (test code = Hazy Clear A [id number]) COLOR (test code = Yvonne Yellow A 1769414344) PH (test code = 4.8-8.0 0255964084) SP GRAVITY (test code = 1.003-1.030 6513904655) GLU U QUAL (test code = Normal Normal 1060357742) BLOOD (test code = Negative Negative 9227518407) KETONES (test code = 5 mg/dL Negative A 3643094411) PROTEIN (test code = 30 mg/dL Negative A 2887-8) UROBILIN (test code = 2.0 mg/dL Normal A 3211047400) BILIRUBIN (test code = Negative Negative 6533573741) NITRITE (test code = Negative Negative 9249949710) LEUK SHIRLEY (test code = 25/uL Negative A 4670758364) RBC/HPF (test code = See_Comment [Autom ated message] 6519514723) The system [employer] generated this result transmit fatemeh reference range : 0 - 3 HPF. The refe rence range was not u sed to interpret th is result as normal/abnormal . WBC/HPF (test code = See_Comment [Autom ated message] 2049075624) The system [employer] generated this result transmit fatemeh reference range : 0 - 5 HPF. The refe rence range was not u sed to interpret th is result as normal/abnormal . BACTERIA (test code = Few Negative A 3609892198) MUCOUS (test code = Moderate Negative LPF A 6503432957) SQ EPITH (test code = HPF 3774901316) HYAL CAST (test code = See_Comment H [Aut omated message] 3829506089) The system [employer] generated this result transmit fatemeh reference range : <=2 LPF. The refere nce range was not u sed to interpret th is result as normal/abnormal . Lab Interpretation (test Abnormal code = 69999-2) [facility] WITH [id number] 19:07:00 Test Item Value Reference Range Interpretation [...] (test code = 38.5 fL 39-49.9 L 88118-6) RDW-CV (test code = 11.9 % 12-15.5 L 788-0) PLT (test code = See_Comment [Automated 777-3) message] The system which generated this result transmit fatemeh reference range : 166 - 358 10*3/ ?L. The reference range was not u sed to interpret th is result as normal/abnormal . MPV (test code = 9.5 fL 9.5-12.9 83299-9) NRBC/100 WBC (test See_Comment [Automat ed code = 3061529558) message] The system which generated this result transmit fatemeh reference range : 0.0 - 10.0 /100 WBCs. The reference range was not used to interpret this result as normal/abnormal . NRBC x10^3 (test code <0.01 See_Comment [Auto mated = 3687306561) message] The system which generated this result transmit fatemeh reference range : 10*3/?L. The reference range was not used to interpret this result as normal/abnormal . GRAN MAT (NEUT) % 79.2 % (test code = 770-8) IMM GRAN % (test code 0.40 % = 5155932014) LYMPH % (test code = 12.9 % 736-9) MONO % (test code = 5.2 % 5905-5) EOS % (test code = 1.9 % 713-8) BASO % (test code = 0.4 % 706-2) GRAN MAT x10^3(ANC) 11.12 10*3/uL 1.88-7.09 H (test code = 1763795406) IMM GRAN x10^3 (test 0.05 10*3/uL 0-0.06 code = 8319837572) LYMPH x10^3 (test code 1.81 10*3/uL 1.32-3.29 = 731-0) MONO x10^3 (test code 0.73 10*3/uL 0.33-0.92 = 742-7) EOS x10^3 (test code = 0.27 10*3/uL 0.03-0.39 711-2) BASO x10^3 (test code 0.05 10*3/uL 0.01-0.07 = 704-7) Lab Interpretation Abnormal (test code = 76222-1) [id number] 18:47:00 Test Item Value Reference Range Interpretation Comments POCT PREG (test code = 1605) negative On board controls acceptable with present C Line (test code = 3574) POCT PREG LOT # (test code = 3575) [id number] POCT PREG TEST DATE (test code = 3576) Lab Interpretation (test code = Normal 79704-5) [facility] CHEST 1 [id number] 22:08:34 No acute cardiopulmonary process. Preliminary Report [...] acute cardiopulmonary process.Preliminary Report Dictated by Resident: eRd House MD., have reviewed this study and agree with theabove report. [facility] 1 VW [id number] 12:56:21 1. No acute intrathoracic abnormality, specifically no detectableradiographic findings to suggest COVID-19 pneumonia. Disclaimer: Generally, the findings on chest imaging in COVID-19 are notspecific, and overlap with other infections, including influenza, H1N1,SARS and MERS.According to the Centers for Disease Control (CDC) and the [employer], viral testing remains the only [...] Centers for Disease Control (CDC) and the [employer], viral testing remains the only specific method of diagnosiseven if CXR or CT findings are suggestive of COVID-19. Preliminary Report Dictated by Resident: Doreen Wilkinson, Margy Goode MD.,have reviewed this study and agree with theabove report.[facility]. METABOLIC PANEL (98827)2020-03-22 08:04:00 Test Item Value Reference Range Interpretation Comments NA (test code = 138 mmol/L 135-145 5513416476) K (test code = 3.5 mmol/L 3.5-5 6685029973) CL (test code = 105 mmol/L 98-108 5620514985) CO2 TOTAL (test code = 22 mmol/L 23-31 L 1294404787) AGAP (test code = 2-16 7151109676) BUN (test code = 7 mg/dL 7-23 8547990313) GLUCOSE (test code = 99 mg/dL 70-110 2466687747) CREATININE (test code = 0.74 mg/dL 0.5-1.04 2049494976) TOTAL BILI (test code = 0.5 mg/dL 0.1-1.1 7953129283) CALCIUM (test code = 8.5 mg/dL 8.6-10.6 L 2729686669) T PROTEIN (test code = 6.7 g/dL 6.3-8.2 6289364508) ALBUMIN (test code = 4.1 g/dL 3.5-5 5266473094) ALK PHOS (test code = 74 U/L 34-122 4278421433) ALTv (test code = 32 U/L 5-35 1742-6) AST(SGOT) (test code = 54 U/L 13-40 H 5051158802) eGFR Calculation mL/min/1.73m2 (Non-) (test code = 2405487043) eGFR Calculation mL/min/1.73m2 () (test code = 0094332387) CINDI (test code = CINDI) Association of [...] tests). Lab Interpretation Abnormal (test code = 22501-4) [facility] [id number] 07:57:00 Test Item Value Reference Range Interpretation Comments TROPONIN I (test <0.012 See_Comment [Automated code = 7099267094) message] The system which generated this result [...] ? Lab Interpretation Normal (test code = 89752-3) [facility] COVID-19 [id number] 07:56:00 Test Item Value Reference Range Interpretation Comments SARS-CoV-2 (test code = Not Detected Not Detected 79709-2) CINDI (test code = CINDI) ID NOW COVID-19 Assay is an isothermal nucleic acid amplification test intended for the qualitative detection of nucleic acid from SARS-CoV-2 viral RNA in nasopharyngeal (PREVENTIVE MEDICINE PHYSICIAN) specimens. It is used under Emergency Use [...] indicated. Lab Interpretation Normal (test code = 67141-0) [facility]IP[facility], [id number] 07:45:00 Test Item Value Reference Range Interpretation Comments LIPASE (test code = 6879447174) 58 U/L 0-220 Lab Interpretation (test code = Normal 16729-2) [facility] WITH [id number] 07:30:00 Test Item Value Reference Range Interpretation Comments WBC (test code = See_Comment [Automated 2290-2) message] The sy stem which generated this result transmitted reference range : 4.30 - 11.10 10*3/?L. The reference range was not used to interpret this result as normal/abnormal . RBC (test code = See_Comment [Automated 789-8) message] The sy stem which generated this [...] RDW-SD (test code = 39.8 fL 39-49.9 67426-4) RDW-CV (test code = 12.1 % 12-15.5 788-0) PLT (test code = See_Comment [Automated 777-3) message] The sy stem which generated this result transmitted reference range : 166 - 358 10*3/ ?L. The reference r carlos was not used to interpret this result as normal/abnormal . MPV (test code = 9.2 fL 9.5-12.9 L 83429-6) NRBC/100 WBC (test See_Comment [Automat ed code = 3557219071) message] The system which generated this result transmitted reference range : 0.0 - 10.0 /100 WBCs. The refer ence range was not u sed to interpret th is result as normal/abnormal . NRBC x10^3 (test code <0.01 See_Comment [Auto mated = 0787614200) message] The s ystem which generated this result transmitted reference range : 10*3/?L. The reference range was not used to interpret this result as normal/abnormal . GRAN MAT (NEUT) % 62.2 % (test code = 770-8) IMM GRAN % (test code 0.50 % = 5094897594) LYMPH % (test code = 24.6 % 736-9) MONO % (test code = 7.7 % 5905-5) EOS % (test code = 4.5 % 713-8) BASO % (test code = 0.5 % 706-2) GRAN MAT x10^3(ANC) 6.71 10*3/uL 1.88-7.09 (test code = 2482939915) IMM GRAN x10^3 (test 0.05 10*3/uL 0-0.06 code = 6855820956) LYMPH x10^3 (test code 2.65 10*3/uL 1.32-3.29 = 731-0) MONO x10^3 (test code 0.83 10*3/uL 0.33-0.92 = 742-7) EOS x10^3 (test code = 0.49 10*3/uL 0.03-0.39 H 711-2) BASO x10^3 (test code 0.05 10*3/uL 0.01-0.07 = 704-7) Lab Interpretation Abnormal (test code = 73157-0) [facility] METABOLIC [id number] 17:09:00 Test Item Value Reference Range Interpretation [...] = ALKP) Specimen comments: ccSpecimen comments: SEPSIS [id number] 17:09:00 Test Item Value Reference Range Interpretation Comments LIPASE (test code = LIP) 318 Unit/L 114-286 H Specimen comments: ccSpecimen comments: SEPSIS [id number] 17:09:00 Test Item Value Reference Range Interpretation [...] change s in troponin levelscharacter istic of [place]. Specimen comments: ccSpecimen comments: SEPSIS WORKUPPROCALCITONIN (PCT) [...] = ALKP) Specimen comments: ccSpecimen comments: SEPSIS [id number] 17:03:00 Test Item Value Reference Range Interpretation Comments LIPASE (test code = LIP) 318 Unit/L 114-286 H Specimen comments: ccSpecimen comments: SEPSIS [id number] 17:03:00 Test Item Value Reference Range Interpretation [...] change s in troponin levelscharacter istic of [place]. Specimen comments: ccSpecimen comments: SEPSIS WORKUPPROCALCITONIN (PCT) 2020-02-17 17:03:00 Test Item Value Reference Range Interpretation Comments PROCALCITONIN (PCT) (test code = NG/ML 0.00-0.10 PROCAL) Specimen comments: ccSpecimen comments: SEPSIS WORKUPLACTIC [id number] 17:01:00 Test Item Value Reference Range Interpretation Comments LACTIC ACID (test code = LACT) 1.4 mmol/L 0.4-2.0 N Specimen comments: ccBASIC METABOLIC [id number] 16:58:00 Test Item Value Reference Range Interpretation [...] = ALKP) Specimen comments: ccSpecimen comments: SEPSIS [id number] 16:58:00 Test Item Value Reference Range Interpretation Comments LIPASE (test code = LIP) 318 Unit/L 114-286 H Specimen comments: ccSpecimen comments: SEPSIS [id number] 16:58:00 Test Item Value Reference Range Interpretation [...] HE NEGATIVERESULT DOES NOT RULE OUT THE MO ESENCE OF STREP GROUP A.W HEN STREP GROUP A ANTIGEN IS DETECTED, THE P OSITIVE RESULTIS SIGNIF ICANT. NEGATIVE RESULT S REFLEX A CULTURE. FORNEG ATIVE RESULTS A CULTU RE IS IN PROGRESS, RESUL T TO FOLLOW. HCG SERUM [id number] 16:55:00 Test Item Value Reference Range Interpretation Comments HCG SERUM QUAL (test code = HCGQL) NEG SCREEN NEG Specimen comments: SEPSIS WORKUP- XR CHEST 2 [id number] 16:55:00 FAX: Julia Sanz [phone] Burns: E St: PRE Patient Name: JAIDEN PLATA Unit No: [id number] EXAMS: CPT CODE: [id number] XR CHEST 2 V 26334 PA and lateral views of the chest [...] 02/17/2020 (1657) KILLIAN Crawford NAME: JAIDEN PLATA [address] [place] [address] PHYS: SHAYNA [place], [place] [address] : 1980 AGE: 39 SEX: F LOC: B.ERS PHONE #: [phone] EXAM DATE: 02/17/2020 STATUS: PRE ER FAX #: [phone] RAD NO: DC Dt: PAGE 1 Signed ReportUA RFLX MICR CULT IF [id number] 16:51:00 Test Item Value Reference Range Interpretation [...] Sepsis-no other srcUA RFLX MICR CULT IF [id number] 16:47:00 Test Item Value Reference Range Interpretation [...] for culture: Sev. Sepsis-no other srcCBC W/AUTO [id number] 16:45:00 Test Item Value Reference Range Interpretation [...] Date/Time Note Provider Source 2020-05-12 01:03:00-00:00 [facility]) EMERGENCY PROVIDER REPORT REPORT#:[id number] REPORT STATUS: Signed DATE:05/12/20 TIME: 0103 PATIENT: JAIDEN PLATA UNIT #: [id number] ROOM/BED: AGE: 39 SEX: F PCP PHYS: No Primary or Family Ph ysician SERVICE AUTHOR: Parveen Poole MD * ALL edits or amendments must be made on the [employer]/computer document * HPI-Syncope General Initial Greet Date/Time [...] which required "shocks" at a different hospital [facility] months ago. Review of Systems ROS [...] Documented: Result Date Time Pulse Ox 99 / 0040 B/P 146/87 / 0040 B/P Mean 106 / 0040 O2 Delivery Room air / 0040 Temp 98.3 / 0040 Pulse 105 / 0040 Resp 16 05/12 0040 Last Documented: Result Date Time Pulse Ox 99 / 0040 B/P 146/87 / 0040 B/P Mean 106 / 0040 O2 Delivery Room air / 0040 Temp 98.3 / 0040 Pulse 105 / 0040 Resp 16 05/12 0040 Review of Vital Signs Reviewed Focused PE [...] Documented: Result Date Time Pulse Ox 99 / 0040 B/P 146/87 06/11 0040 B/P Mean 106 06/11 0040 O2 Delivery Room air 06/ 0040 Temp 98.3 06/11 0040 Pulse 105 06/11 0040 Resp 16 06/ 0040 Last Documented: Result Date Time Pulse Ox 99 06/ 0040 B/P 146/87 06/11 0040 B/P Mean 106 06/11 0040 O2 Delivery Room air 06/11 0040 Temp 98.3 06/11 0040 Pulse 105 06/11 0040 Resp 16 06/11 0040 All vital signs available at the time of this en try have been reviewed. Clinical Impression Clinical Impression Primary Impression: Anxiety Secondary Impressions: Syncope Discharge/Care Plan (Auto) Prescriptions Current Visit Scripts No Known Home Medications Referrals No Primary or Family Physician (PCP) Electronically Signed by Parveen Poole MD on 05/12 at 1424 RPT #:[id number] END OF REPORT 2020-02-17 16:01:00-00:00 [facility] ([facility]) EMERGENCY PROVIDER REPORT REPORT#:[id number] REPORT STATUS: Signed DATE:02/17/20 TIME: 1600 PATIENT: JAIDEN PLATA UNIT #: [id number] ROOM/BED: AGE: 39 SEX: F PCP PHYS: No Primary or Family Ph ysician SERVICE AUTHOR: Julia Buckner * ALL edits or amendments must be made on the [employer]/computer document * UEI-Ufo-Ytfh Illness General Confirmed Patient Yes Initial Greet Date/Time 02/17/20 1559 Assumed Care at Time 160 Date 02/17/20 PCP none. Presentation Chief Complaint [...] denies any travel within or out of [facility] country in the last 4 weeks,and [...] Independ review imaging Results Laboratory Tests 02/17/20 1615: [Embedded Image Not Available] Laboratory Tests: 02/16 02/16 1615 1615 Chemistry Lactic Acid (0.4 - 2.0 mmol/L) 1.4 Serum , Qual (NEG SCREEN) NEG 02/16 1615 Chemistry Sodium (133 - 144 mmol/L) 135.0 [...] H Specimen Appearance (1 NORMAL Index/DL) 1 CODI L <2 MG Specimen Hemolysis (1 NORMAL [...] % (Auto) (14.1 - 45.4 %) 19.1 Hendricks % (Auto) (2.5 - 11.7 %) 8.0 Eos % (Auto) (0.0 - 6.2 %) 6.0 Baso % (Auto) (0.0 - 2.1 %) 0.3 Gran # (2.0 - 13.7 k/mm3) 3.98 Lymph # (Auto) (0.6 - 3.8 K/mm3) 1.15 Hendricks # (Auto) (0.11 - 0.59 K/mm3) 0.48 [...] - 8.0 pH UNITS) 6.0 Ur Specific [place] (1.001 - 1.035 SG) 1.009 Urine Protein [...] Date/Time Procedure - Status Source Growth 02/16 162 Blood Culture - RES BLOOD 02/16 161 Group A Streptococcus Screen (RICHARD) - COMP THROAT 02/16 161 Influenza Virus Type B Antigen - COM P NASAL 02/16 161 Influenza Virus Type A Antigen - COM [...] any infiltrates or pneumonia. Time of Re-Eval 1707 Re-Eval Status Improved Plan Post Re-Eval her [...] dehydration, she will be discharged on orquidea carlos croft. The patient is reffered to [facility], strict return precautions given, to return for any worsening fevers, re sistant to otc medications, worsening cough, or sob. the patient is comfortable with discharge, juarez porras understanding. her vital signs are stable on discharge. Time of Re-Eval 1750 Re-Eval Status Improved Plan Post Re-Eval Plan [...] symptoms should prompt an immediate return to [facility] or the closest emergency department or a call to 911. Quality Measures Tobacco Screening/Cessation 18 years or older, T obacco user, Counseled 3-10 minutes Free Text Depart Notes Free Text Depart Notes RefFered to Ava Esteban Electronically Signed by Julia Buckner on 01/31 at 2106 RPT #:[id number] END OF REPORT 2020-02-17 16:01:00-00:00 [facility] ([facility]) EMERGENCY PROVIDER REPORT REPORT#:[id number] REPORT STATUS: Signed DATE:02/17/20 TIME: 160 PATIENT: JAIDEN PLATA UNIT #: [id number] ROOM/BED: AGE: 39 SEX: F PCP PHYS: No Primary or Family Ph ysician SERVICE AUTHOR: Julia Buckner * ALL edits or amendments must be made on the [employer]/computer document * Julia Buckner 02/17/20 1601: UBG-Cfl-Djfi Illness General Confirmed Patient Yes Assumed Care [...] denies any travel within or out of [facility] country in the last 4 weeks,and [...] Independ review imaging Results Laboratory Tests 02/17/20 1615: [Embedded Image Not Available] Laboratory Tests: 02/16 02/16 1615 1615 Chemistry Lactic Acid (0.4 - 2.0 mmol/L) 1.4 Serum , Qual (NEG SCREEN) NEG 02/16 1615 Chemistry Sodium (133 - 144 mmol/L) 135.0 [...] H Specimen Appearance (1 NORMAL Index/DL) 1 CODI L <2 MG Specimen Hemolysis (1 NORMAL [...] % (Auto) (14.1 - 45.4 %) 19.1 Hendricks % (Auto) (2.5 - 11.7 %) 8.0 Eos % (Auto) (0.0 - 6.2 %) 6.0 Baso % (Auto) (0.0 - 2.1 %) 0.3 Gran # (2.0 - 13.7 k/mm3) 3.98 Lymph # (Auto) (0.6 - 3.8 K/mm3) 1.15 Hendricks # (Auto) (0.11 - 0.59 K/mm3) 0.48 [...] - 8.0 pH UNITS) 6.0 Ur Specific [place] (1.001 - 1.035 SG) 1.009 Urine Protein [...] CULT-N/A Urine Comment (SpecComment Notes) CLEAN CATCH SPEC Microbiology: Date/Time Procedure - Status Source Growth 02/16 162 Blood Culture - RES BLOOD 02/16 161 Group A Streptococcus Screen (RICHARD) - COMP THROAT 02/16 161 Influenza Virus Type B Antigen - COM P NASAL 02/16 161 Influenza Virus Type A Antigen - COM P NASAL 02/16 161 Blood Culture - RES BLOOD Recent Impressions: RADIOLOGY - XR CHEST 2 V 02/16 1634 Report Impression - Status: SIGNED Entered: 02/17/2020 165 Impression: Normal Impression By: Lisa Colon MD [...] any infiltrates or pneumonia. Time of Re-Eval 1707 Re-Eval Status Improved Plan Post Re-Eval her [...] carlos mckinley. The patient is reffered to [facility], strict return precautions given, to return for any worsening fevers, re sistant to otc medications, worsening cough, or sob. the patient is comfortable with discharge, juarez porras understanding. her vital signs are stable on discharge. Time of Re-Eval 1750 Re-Eval Status Improved Plan Post Re-Eval Plan [...] symptoms should prompt an immediate return to [facility] or the closest emergency department or a call to 911. Quality Measures Tobacco Screening/Cessation 18 years or older, T obacco user, Counseled 3-10 minutes Free Text Depart Notes Free Text Depart Notes RefFered to Nikhil Bui 02/19/20 6576: OHR-Crj-Ufbg Illness General Initial Greet Date/Time 02/17/20 1559 Patient Discharge Departure Supervising Physician Note MidLv Saw Pt Alone I have reviewed the PA/PREVENTIVE MEDICINE PHYSICIAN's note and plan of car e. I was available for consultation as needed at al l times during the patient's visit in the emergency department. I agree with the clinical impression , plan and disposition. Electronically Signed by Julia Buckner on 01/31 at 2108 Electronically Signed by Nikhil Santos DO on at 6305 RPT #:[id number] END OF REPORT
[2023-04-26] MEDS ORDERED: IBUPROFEN 200 MG TAB PO ONE (19:38)
[2023-04-26] MEDS ORDERED: IBUPROFEN 400 MG TAB ONE (19:39)
[2023-04-26] MEDS ORDERED: oxyBUTYnin chloride 5 MG TAB ONE (19:45)
--- NOTE | 2023-04-26 19:54 | EDPHYS ---
Physician Documentation [facility] Name: Gabrielle Plata Age: 42 yrs Sex: Female : 1980 Arrival Date: 04/26/2023 Time: 18:32 Bed 10 Private MD: Garret Carver ED Physician Curly Morel HPI: 04/26 18:50 This 42 yrs old Female presents to ER via Ambulatory with complaints of bs3 Problem With Urinary Catheter. 18:50 42-year-old female recently seen here for a foreign body in her bladder she is status bs3 post cystotomy and repair with Bales catheter placement and it [facility] in the [facility] presents with discomfort in her Bales and decreased urinary output she notes that she feels like her Bales catheter since being discharged and even during the hospitalization was tugging and now she has decreased urinary output increased suprapubic pain and some leaking urine around the Bales catheter she denies anything else bothering her. Historical: - Allergies: 18:46 cefepime; bp 18:46 Codeine; bp 18:46 Demerol; bp 18:46 Sulfa (Sulfonamide Antibiotics); bp - PMHx: 18:46 Crohn's Disease; Gretta Parikh tears; MRSA; bp - PSHx: 18:46 breast augmentation; Cholecystectomy; tubal ligation; bp - Immunization history:: Adult Immunizations up to date. - Social history:: Smoking status: Patient denies any tobacco usage or history of. ROS: 18:50 Constitutional: Negative for fever, chills Eyes: Negative for injury, pain, redness, bs3 and discharge. 18:50 All other systems are negative. Exam: 18:50 Constitutional: This is a well developed, well nourished patient who is awake, alert, bs3 and in no acute distress. Head/Face: Normocephalic, atraumatic. Eyes: Pupils equal round and reactive to light, extra-ocular motions intact. Lids and lashes normal. ENT: mmm, no posterior phyarngeal erythema Cardiovascular: Tachycardic no murmur Female : bales in place, leg bag with small amount of urine MS/ Extremity: Pulses equal, no cyanosis. Neurovascular intact. Full, normal range of motion. Neuro: Awake and alert, GCS 15, oriented to person, place, time, and situation. Cranial nerves II-XII grossly intact. Motor strength 5/5 in all extremities. Sensory grossly intact. Psych: Awake, alert, with orientation to person, place and time. Behavior, mood, and affect are within normal limits. Vital Signs: 18:41 BP 137 / 102; Pulse 133; Resp 16; Temp 98.9; Pulse Ox 100% ; bp 20:30 BP 131 / 95; Pulse 105; Resp 18; Pulse Ox 100% on R/A; pf1 MDM: 18:38 Patient medically screened. bs3 18:50 Data reviewed: vital signs, nurses notes. ED course: Patient with Bales catheter bs3 malfunction will attempt to advance catheter and reassess otherwise we will change out catheter. 19:51 ED course: We left in the balloon and she had improvement in her pain I then did bs3 bedside ultrasound and we advanced the Bales with significant improvement I visualized in the bladder and instilled 30 cc which showed normal bladder filling she had improvement in pain afterwards but still had some bladder spasms so we will treat pain will discharge home advised follow-up with urology. Administered Medications: 19:45 Drug: Ibuprofen PO 600 mg Route: PO; lg3 20:40 Follow up: Response: No adverse reaction; Marked relief of symptoms pf1 19:48 Drug: Oxybutynin PO 5 mg Route: PO; lg3 20:40 Follow up: Response: No adverse reaction; Marked relief of symptoms pf1 Disposition Summary: 04/26/23 19:53 Discharge Ordered Location: Home bs3 Problem: new bs3 Symptoms: have improved bs3 Condition: Stable bs3 Diagnosis - Other mechanical complication of indwelling urethral catheter bs3 Followup: bs3 - With: Private Physician - When: 5 - 6 days - Reason: Re-evaluation by your physician Discharge Instructions: - Discharge Summary Sheet bs3 - Indwelling Urinary Catheter Care, Adult bs3 Forms: - Medication Reconciliation Form bs3 - Thank You Letter bs3 - Antibiotic Education bs3 - Prescription Opioid Use bs3 Signatures: Magnus Craven RN RN bp Dora Hernandez RN RN lg3 Curly Morel MD MD bs3 Sis Berry RN pf1 Corrections: (The following items were deleted from the chart) 20:00 18:48 Bales ordered. bs3 lg3
--- NOTE | 2023-04-26 19:54 | ER ---
Nurse's Notes [facility] Name: Gabrielle Plata Age: 42 yrs Sex: Female : 1980 Arrival Date: 04/26/2023 Time: 18:32 Bed 10 Private MD: Garret Carver Diagnosis: Other mechanical complication of indwelling urethral catheter Presentation: 04/26 18:41 Chief complaint: Patient states: LEAKING URINARY CATHETER, PLACED SATURDAY AFTER SURGERY. bp Coronavirus screen: At this time, the client does not indicate any symptoms associated with coronavirus-19. Ebola Screen: No symptoms or risks identified at this time. Initial Sepsis Screen: Does the patient meet any 2 criteria? No. Patient's initial sepsis screen is negative. Does the patient have a suspected source of infection? No. Patient's initial sepsis screen is negative. Risk Assessment: Do you want to hurt yourself or someone else? Patient reports no desire to harm self or others. Onset of symptoms is unknown. 18:41 Method Of Arrival: Ambulatory bp 18:41 Acuity: CATHIE 3 bp Triage Assessment: 18:46 General: Appears distressed, uncomfortable, Behavior is cooperative, appropriate for bp age, anxious. Pain: Complains of pain in pelvis. EENT: No deficits noted. Neuro: No deficits noted. Cardiovascular: Rhythm is sinus tachycardia. Respiratory: No deficits noted. GI: No signs and/or symptoms were reported involving the gastrointestinal system. : No signs and/or symptoms were reported regarding the genitourinary system. Derm: No deficits noted. Musculoskeletal: No deficits noted. Historical: - Allergies: 18:46 cefepime; bp 18:46 Codeine; bp 18:46 Demerol; bp 18:46 Sulfa (Sulfonamide Antibiotics); bp - PMHx: 18:46 Crohn's Disease; Gretta Parikh tears; MRSA; bp - PSHx: 18:46 breast augmentation; Cholecystectomy; tubal ligation; bp - Immunization history:: Adult Immunizations up to date. - Social history:: Smoking status: Patient denies any tobacco usage or history of. Screenin:47 [facility] ED Fall Risk Assessment (Adult) History of falling in the last 3 months, bp including since admission No falls in past 3 months (0 pts). Abuse screen: Denies threats or abuse. Denies injuries from another. Nutritional screening: No deficits noted. Tuberculosis screening: No symptoms or risk factors identified. Assessment: 18:47 General: SEE TRIAGE NOTE. bp 20:00 Reassessment: Patient appears in no apparent distress at this time. Patient and/or pf1 family updated on plan of care and expected duration. Pain level reassessed. Patient states symptoms have improved. Vital Signs: 18:41 BP 137 / 102; Pulse 133; Resp 16; Temp 98.9; Pulse Ox 100% ; bp 20:30 BP 131 / 95; Pulse 105; Resp 18; Pulse Ox 100% on R/A; pf1 ED Course: 18:33 Patient arrived in ED. am2 18:33 Garret Carver MD is Private Physician. am2 18:38 Curly Morel MD is Attending Physician. bs3 18:46 Triage completed. bp 18:46 Arm band placed on. bp 18:47 Patient has correct armband on for positive identification. bp 21:04 No provider procedures requiring assistance completed. Patient did not have IV access pf1 during this emergency room visit. Administered Medications: 19:45 Drug: Ibuprofen PO 600 mg Route: PO; lg3 20:40 Follow up: Response: No adverse reaction; Marked relief of symptoms pf1 19:48 Drug: Oxybutynin PO 5 mg Route: PO; lg3 20:40 Follow up: Response: No adverse reaction; Marked relief of symptoms pf1 Medication: 18:47 VIS not applicable for this client. bp Outcome: 19:53 Discharge ordered by . bs3 21:04 Discharged to home ambulatory, with family. pf1 21:04 Condition: improved 21:04 Discharge instructions given to patient, Instructed on discharge instructions, follow up and referral plans. Demonstrated understanding of instructions, follow-up care. 21:08 Patient left the ED. pf1 Signatures: Annemarie Darling am2 Magnus Craven, RN RN bp Dora Hernandez RN RN 3 Curly Morel MD MD bs3 Sis Berry RN RN pf1
[2023-04-26 21:15] VITALS: BP 137/102; TEMP 98.9; O2SAT 100
== END 2023-04-26 21:08 | disposition home or self-care (01) ==
LOC: ER 18:32
DX: T83.091A Other mechanical complication of indwelling urethral catheter, initial encounter (principal)
CPT/HCPCS: 99283

== ENCOUNTER 2023-04-27 21:18 | Emergency (ER) | payer SELFPAY ==
--- OUTSIDE RECORDS SUMMARY | 2023-04-27 21:27 | XMS REPORT | Continuity of Care Document ---
:1980 Author Organization [facility] t Address [address] [place] [address] Care Team Providers Name Role Phone No, Pcp [facility] Primary Care Physician Unavailable Marvin BEASLEY, Artur Rincon Attending Clinician Rakan Mcgee MD Attending Clinician [phone] Kate BESALEY, Grazyna Reich Attending Clinician [phone] GRAZYNA LOVE Attending Clinician Unavailable YONAS FITZGERALD Attending Clinician Unavailable Kiesha BEASLEY, Martita Jacques Attending Clinician Fernando Pandya MD Attending Clinician Yonas Fitzgerald MD Attending Clinician Doctor Unassigned, [place] Attending Clinician Unavailable Ramez BUCKNER, Ashely Attending Clinician Unavailable Fer BEASLEY, Antonio Attending Clinician [phone] Mojgan SHAH Attending Clinician Unavailable Mojgan Pires Attending Clinician JOSÉ LUIS GONZALES Attending Clinician Unavailable Brit BEASLEY, Yonas Calero Attending Clinician Telma BEASLEY, Mynor Oconnell Attending Clinician MYNOR HOLLIS Attending Clinician Unavailable Pam LEZAMA, Dalia Robbins Attending Clinician DALIA OROZCO [...] Effective Date Expiration Date Claire chaudhary [facility] [place] [id number] 2020 WOMEN 00:00:00 MATTHEW [id number] 2020 2020 00:00:00 00:00:00 AGENCY GENERIC [id number] 2020 2020 00:00:00 00:00:00 Problems Condition Condition [...] of neck of 00:00: g of this [place] fifth fifth 00 note Medical metacarpal metacarpal might be Branch bone, bone, different right right from the hand, hand, original. initial initial Added encounter encounter automatic for closed for closed ally from fracture fracture request for surgery [id number] Foreign Foreign Disease Active 2020-[address] [facility] [...] blood 8-25 ity of pressure pressure 00:00: [place] reading reading 00 Medical without without Branch diagnosis diagnosis of of hypertensi hypertensi on on Anxiety Anxiety Disease Active Univers 5-07 ity of 00:00: [place] 00 Medical Branch Chest pain Chest pain Disease Active U nivers 4-21 ity of 00:00: [place] 00 Medical Branch Screening Screening Disease Active Uni vers examinatio examinatio 2-05 it y of n for STD n [place] ST[place] ([place]ually (sexually 00 [facility] transmitte transmitte Br anch d disease) d disease) Premature Premature Disease Active 2016-12 Uni vers labor labor 0-24 ity of 00:00: [place] Medical Branch 34 weeks 34 weeks Disease Active 2016-12 Unive rs gestation gestation 0-14 ity of of of 00:00: [place] 00 [facility] Disease Active 2016-12 Univers labor labor 0-14 ity of 00:00: [place] Medical Branch Crohn Crohn Disease Active Overview: Univer s disease disease 12-02 Formattin ity o f 00:00: g of this [place] 00 note Medical might be Branch different from the original. involving small and large intesting , biopsy confirmed . Gets colonosco py Q 6-12 months. 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 [place] es es note Medical might be Branch [...] 00:00: (THC) 00 CORTICOS Allergy Active Other [facility] TEROIDS 5-20 (GLUCOCO 00:00: RTICOIDS 00 [...] Active MO 2020-0 [facility] ne HCl 3-18 [place] 00:00: [facility] 00 [facility] Sulfa DA Active MO 2020-0 [facility] (Sulfona 3-18 [place] mide 00:00: Region Antibiot 00 l ics[facility] codeine DA Active MO 2020-0 [facility] 3-18 [place] 00:00: [facility] 00 [facility] meperidi DA Active MO vomiting 2020-0 [facility] ne HCl chest 3-18 [place] tightness 00:00: [address] Sulfa DA Active MO rash chest 2020-0 [facility] (Sulfona tightness 3-18 [place] [facility] 00:00: Region Antibiot 00 l ics) [facility] codeine DA Active MO rash chest 2020-0 [facility] tightness 3-18 [place] 00:00: [address] Marijuan Propensi Active Anaphylaxis 2018-0 U [...] s Branch CODEINE DRUG Active High SOB 2015- [...] of Vomiting 00:00: [place] 00 Medical Branch meperidi DA Active MO [facility] ne HCl 8-26 [place] 00:00: Region 00 [facility] Sulfa DA Active MO [facility] (Sulfona 8-26 [place] mide 00:00: Regiona Antibiot 00 l ics) Medical Center codeine DA Active MO [facility] 8-26 [place] 00:00: Region 00 Medical [place] meperidi DA Active MO vomiting [facility] ne HCl chest 8-26 [place] tightness 00:00: Region 00 [facility] Sulfa DA Active MO rash chest [facility] (Sulfona tightness 8-26 [place] m[place] 00:00: Regiona Antibiot 00 l ics) Medical Center codeine DA Active MO rash chest [facility] tightness 8-26 [place] 00:00: [facility] 00 [facility] Center Social History Social Habit Start Date Stop Date Quantity Comments Source History of tobacco Cigarette Smoker [facility] [place] [facility] History SDOH [facility]Med Medical [facility] History SDOH 2023-04-21 2023-04-[address] [facility] Transport Med 00:00:00 00:00:[address] History SDOH 2023-04-21 2023-04-[address] [facility] Housing Unable to 00:00:00 00:00:00 Medical Center Pay History SDOH 2023-04-21 2023-04-[address] [facility] Places 00:00:00 00:00:00 Medical Ce nter Lived History [facility] 2023-04-21 2023-04-[address] [facility] Housing Homeless 00:00:00 00:00:00 Medical Center Last Year Exposure to 2023-04-10 2023-04-20 Not sure AVEL Chavarria SARS-CoV-2 (event) 00:00:00 23:57:00 [facility] Alcohol intake 2023-04-08 2023-04-08 Current drinker Unive rsity of 00:00:00 00:00:00 of alcohol [facility] (finding) Branch Tobacco use and 2023-03-25 2023-03-25 Smokeless tobacco Un iversity of exposure 00:00:00 00:00:00 non-user [facility] Cigarettes smoked 2023-03-25 2023-03-25 Univers ity of current (pack per 00:00:00 00:00:00 [facility]) - Reported Branch Tobacco Comment 2023-03-25 2023-03-25 Occasional Smoker Un iversity of 00:00:00 00:00:00 [facility] Branch History [facility] 2020-07-26 2020-07-26 2 University o f Alcohol Frequency 00:00:00 00:00:[address] [facility] [place] Branch History [facility] 2020-07-26 2020-07-26 2 University o f Alcohol Std Drinks 00:00:00 00:00:00 [facility] Branch History [facility] 2020-07-26 2020-07-26 99 University o f Alcohol Binge 00:00:00 00:00:00 [facility] Alcohol Comment 2018-01-03 2018-01-03 Social Drinker Unive rsity of 00:00:00 00:00:00 [facility] Sex [birth year] At [birth year] AVEL Lamars 00:00:00 00:00:00 Medical Center Smoking Status Start Date Stop Date Source Smokes tobacco daily 2023-03-25 00:00:00 Univers ity of [facility] Current some day smoker 2020-06-12 00:00:00 Univ ersity [facility] Medications Ordered Filled Start Stop Current Ordering Indication Dosage Frequency Signature Comments Components Source Medication Medication Date Date Medication? Clinician (SIG) Name Name clonazePAM Yes .5mg Q.5D Take 1 [facility] (KlonoPIN) 5-25 [facility] 0.5 MG 15:44: (0.5 mg Medical tablet 02 total) by Center mouth in the morning and 1 tablet (0.5 mg total) before bedtime. Max Daily Amount: 1 mg. TiZANidine 2023-0 Yes 4mg Q.[id number] Take [address] (ZANAFLEX) 5-25 [id number] capsule (4 [facility] 4 MG 15:44: 3D mg total) Medical capsule 02 by mouth Center in the morning and 1 capsule (4 mg total) at noon and 1 capsule (4 mg total) in the evening. gabapentin 2023-0 Yes 300mg Q.[id number] Take [address] (NEURONTIN) 5-25 [id number] capsule [facility] 300 MG 15:44: 3D (300 mg Medical capsule 02 total) by Center mouth in the morning and 1 capsule (300 mg total) at noon and 1 capsule (300 mg total) in the evening. omeprazole 2023-0 Yes 20mg QD Take 1 [facility] (PriLOSEC) 5-25 capsule [facility] 20 MG 15:44: (20 mg Medical capsule 02 total) by Center mouth in the morning. clonazePAM 2023-0 Yes .5mg Q.5D Take 1 [facility] (KlonoPIN) 5-25 tablet [facility] 0.5 MG 15:44: (0.5 mg Medical tablet 02 total) by Center mouth in the morning and 1 tablet (0.5 mg total) before bedtime. Max Daily Amount: 1 mg. TiZANidine 2023-0 Yes 4mg Q.[id number] Take [address] (ZANAFLEX) 5-25 [id number] capsule (4 [facility] 4 MG 15:44: 3D mg total) Medical capsule 02 by mouth Center in the morning and 1 capsule (4 mg total) at noon and 1 capsule (4 mg total) in the evening. gabapentin 2023-0 Yes 300mg Q.[id number] Take [address] (NEURONTIN) 5-25 [id number] capsule [facility] 300 MG 15:44: 3D (300 mg Medical capsule 02 total) by Center mouth in the morning and 1 capsule (300 mg total) at noon and 1 capsule (300 mg total) in the evening. omeprazole 2023-0 Yes 20mg QD Take 1 [facility] [...] hours as needed for Pain. cyclobenzap 2022-0 3- No 10mg Take [address] rine [...] 6 (six) hours as needed for Nausea. ibuprofen 2022-0 2022- No 600mg Take [address] (ADVIL,MOTR 5-25 05-24 tablet [facility] IN) 600 MG 15:44: 00:00 (600 mg Med ical tablet 02 :00 total) by Center mouth every 6 (six) hours as needed for Pain. cyclobenzap 2022-0 3- No 10mg Take [address] rine 5-25 05-24 tablet (10 [facility] (FLEXERIL) 15:44: 00:00 mg total) M edical 10 MG 02 :00 by mouth Center tablet every 8 (eight) hours. diclofenac 2022-0 3- No 75mg Q.5D Take [address] (VOLTAREN) 5-25 05-24 tablet (75 Marcella kes 75 MG EC 15:44: 00:00 mg total) Med ical tablet 02 :00 by mouth Center in the morning and 1 tablet (75 mg total) before bedtime. promethazin 2023-0 2023- No 12.5mg Take [address] [facility] 5-25 05-24 tablet [facility] (PHENERGAN) 15:44: 00:00 (12.5 mg M edical 12.5 MG 02 :00 total) by Center tablet mouth every 6 (six) hours as needed for Nausea. busPIRone 2023-0 Yes 5mg Q.[id number] Take [address] (BUSPAR) 5 5-24 [id number] tablet (5 [facility] MG tablet 15:44: 3D mg total) Med ical 47 by mouth Center in the morning and 1 tablet (5 mg total) at noon and 1 tablet (5 mg total) in the evening. busPIRone 2023-0 Yes 5mg Q.[id number] Take [address] (BUSPAR) 5 5-24 [id number] tablet (5 [facility] MG tablet 15:44: 3D mg total) Med ical 47 by mouth Center in the morning and 1 tablet (5 mg total) at noon and 1 tablet (5 mg total) in the evening. HYDROcodone 2023-0 Yes 1{tbl} Take [address] -acetaminop 5-24 tablet by [place] es [place] (NORCO 00:00: mouth Medica l 5-325) 00 every 6 Center 5-325 mg (six) per tablet hours as needed for Pain. Max Daily Amount: 4 tablets amoxicillin 2023-0 Yes 500mg Q.[id number] Take [address] (AMOXIL) 5-24 [id number] tablet Martha es 500 MG 00:00: 3D (500 mg Medical tablet 00 total) by Center mouth in the morning and 1 tablet (500 mg total) at noon and 1 tablet (500 mg total) in the evening. lisinopriL 2023-0 Yes 10mg QD Take 1 [facility] (PRINIVIL,Z 5-24 tablet (10 Marcella kes ESTRIL) 10 00:00: mg total) Me dical MG tablet 00 by mouth Center in the morning. promethazin 2023-0 Yes 12.5mg Take [address] e 5-24 tablet [facility]ukes (PHENERGAN) 00:00: (12.5 mg Me dical 12.5 MG 00 total) by Center tablet mouth every 6 (six) hours as needed for Nausea. HYDROcodone 3-0 Yes 1{tbl} Take [address] -acetaminop 5-24 tablet by [place] es hen (NORCO 00:00: mouth Medica l 5-325) 00 every 6 Center 5-325 mg (six) per tablet hours as needed for Pain. Max Daily Amount: 4 tablets amoxicillin 2022-0 Yes 500mg Q.[id number] Take [address] (AMOXIL) 5-24 [id number] tablet Martha es 500 MG 00:00: 3D [...] (six) hours as needed for Nausea. levoFLOXaci 3-0 202- Yes 500mg QD Take [address] n 5- 05-29 tablet [facility]ukes (LEVAQUIN) 00:00: 23:59 (500 mg Med ical 500 MG 00 :00 total) by Center tablet mouth in the morning for 5 days. levoFLOXaci 3-0 2023- Yes 500mg QD Take [address] n 5-24 05-29 tablet [facility] (LEVAQUIN) 00:00: 23:59 (500 mg Med ical 500 MG 00 :00 total) by Center tablet mouth in the morning for 5 days. ibuprofen 2022-0 2022- Yes [id number] 600mg Take 1 Univers 600 mg 04-08-07 tablet by ity of tablet 00:00: 04:59 mouth 3 [place] 00 :00 (three) Medical times Branch daily with meals as needed for Pain (scale 4-6) or Pain (scale 1-3) for up to 90 days. ibuprofen 2023-0 2023- Yes [id number] 600mg Take 1 Univers 600 mg 5-08 08-07 tablet by ity of tablet 00:00: 04:59 mouth 3 [place] 00 :00 (three) Medical times Branch daily with meals as needed for Pain (scale 4-6) or Pain (scale 1-3) for up to 90 days. ibuprofen 2022- Yes [id number] 600mg Take 1 Univers 600 mg 5-08 08-07 tablet by ity of tablet 00:00: 04:59 mouth 3 [place] 00 :00 (three) Medical times Branch daily with meals as needed for Pain (scale 4-6) or Pain (scale 1-3) for up to 90 days. ibuprofen 2022- Yes [id number] 600mg Take 1 Univers 600 mg 5-08 08-07 tablet by ity of tablet 00:00: 04:59 mouth 3 [place] 00 :00 (three) Medical times Branch daily with meals as needed for Pain (scale 4-6) or Pain (scale 1-3) for up to 90 days. ibuprofen 2022- Yes [id number] 600mg Take 1 Univers 600 mg 5-08 08-07 tablet by ity of tablet 00:00: 04:59 mouth 3 [place] 00 :00 (three) Medical times Branch daily [...] 05-16 tablet by it y of hen (AwdioCO) 00:00: 04:59 [place] 5-325 mg [...] Minutes, Branch ONCE INTRA PROCEDURE, Starting on 03/27/23 at 1132, Until Sat03/27/23 at 1253, Routine, [...] 900 mg/50 Starting Branch mL IV on Wed piggyback 03/27/23 at RTU 1127, Until Sat03/27/23 [...] 17:53 INTRA [place] 100 mg/10 00 : PROCEDURE, Medi dorothy mL (1 %) Starting [...] ity of free) 0.5% 15:36: 17:53 INTRA [place] (SENSORCAIN 00 :36 PROCEDURE, Me dical E MPF) 0.5 Starting Branc h % (5 mg/mL) on Sat injection 03/27/23 at 1036, Until Discontinu ed, Routine, Intra-op lactated 2022- [facility]27 mL/hr, ity of [...] 4647 1{tbl} Take 1 U nivers -acetaminop 03-27-04 tablet by it y of hen 5-325 00:00: 04:59 mouth [place] mg tablet 00 :00 every 6 Medical (six) Branch hours as needed for Pain (scale 4-6) or Pain (scale 7-10) for up to 7 days. Indication s: acute pain HYDROcodone 2022- Yes 4647 1{tbl} Take 1 U nivers -acetaminop 03-27-04 tablet by it y of hen 5-325 00:00: 04:59 mouth [place] mg tablet 00 :00 every 6 Medical (six) Branch hours as needed for Pain (scale 4-6) or Pain (scale 7-10) for up to 7 days. Indication s: acute pain HYDROcodone 2022- Yes 4647 1{tbl} Take 1 U nivers -acetaminop 4- 05-02 tablet by it y of hen [...] 05-02 tablet by it y of hen (Loosecubes) 00:00: 04:59 mouth 2 [place] 5-325 mg 00 :00 (two) Medical tablet times Branch daily as needed for Pain (scale 7-10) for up to 7 days. Indication s: acute pain HYDROcodone 2022-0 2022- Yes 4647 1{tbl} Take 1 U nivers -acetaminop 4-24 05-02 tablet by it y of hen (Loosecubes) 00:00: 04:59 mouth 2 [place] 5-325 mg 00 :00 (two) Medical tablet times Branch daily as needed for Pain (scale 7-10) for up to 7 days. Indication s: acute pain HYDROcodone 2022- Yes 4647 1{tbl} Take 1 U nivers -acetaminop 4-24 05-02 tablet by it y of hen (Loosecubes) 00:00: 04:59 mouth 2 [place] 5-325 mg 00 :00 (two) Medical tablet times Branch daily as needed for Pain (scale 7-10) for up to 7 days. Indication s: acute pain HYDROcodone 2022- Yes 4647 1{tbl} Take 1 U nivers -acetaminop 4-24 05-02 tablet by it y of hen (Loosecubes) 00:00: 04:59 mouth 2 [place] 5-325 mg 00 :00 (two) Medical tablet times Branch daily as needed for Pain (scale 7-10) for up to 7 days. Indication s: acute pain HYDROcodone 2022-0 2022- Yes 4647 1{tbl} Take 1 U nivers -acetaminop 4-24 05-02 tablet by it y of hen (Loosecubes) 00:00: 04:59 mouth 2 [place] 5-325 mg 00 :00 (two) Medical tablet times Branch daily as needed for Pain (scale 7-10) for up to 7 days. Indication s: acute pain HYDROcodone 2022-0 2022- Yes 4647 1{tbl} Take 1 U nivers -acetaminop 4-24 05-02 tablet by it y of hen (Loosecubes) 00:00: 04:59 mouth 2 [place] 5-325 mg 00 :00 (two) Medical tablet times Branch daily as needed for Pain (scale 7-10) for up to 7 days. Indication s: acute pain HYDROcodone 2022-2022- Yes 4647 1{tbl} Take 1 U nivers -acetaminop 4-24 05-02 tablet by it y of hen (AwdioCO) 00:00: 04:59 mouth 2 [place] 5-325 mg 00 :00 (two) Medical tablet times Branch daily as needed for Pain (scale 7-10) for up to 7 days. Indication s: acute pain HYDROcodone 2022- Yes 4647 1{tbl} Take 1 U nivers -acetaminop 4-24 05-02 tablet by it y of hen (Loosecubes) 00:00: 04:59 mouth 2 [place] 5-325 mg 00 :00 (two) Medical tablet times Branch daily as needed for Pain (scale 7-10) for up to 7 days. Indication s: acute pain HYDROcodone 2022- Yes 4647 1{tbl} Take 1 U nivers -acetaminop 4-24 05-02 tablet by it y of hen (AwdioCO) 00:00: 04:59 mouth 2 [place] 5-325 mg 00 :00 (two) Medical tablet times Branch daily as needed for Pain (scale 7-10) for up to 7 days. Indication s: acute pain HYDROcodone 2022-2022- Yes 4647 1{tbl} Take 1 U nivers -acetaminop 4-24 05-02 tablet by it y of hen (AwdioCO) 00:00: 04:59 mouth 2 [place] 5-325 mg 00 :00 (two) Medical tablet times Branch daily as needed for Pain (scale 7-10) for up to 7 days. Indication s: acute pain HYDROcodone 2022- No 4647 1{tbl} Take 1 U nivers -acetaminop 4-24 05-02 tablet by it y of hen (AwdioCO) 00:00: 04:59 mouth 2 [place] 5-325 mg 00 :00 (two) Medical tablet times Branch daily as needed for Pain (scale 7-10) for up to 7 days. Indication s: acute pain ibuprofen Yes TAKE ONE Univ ers 600 mg 4-18 (1) ity of tablet 00:00: TABLET(S) [place] 00 BY MOUTH Medical EVERY Branch EIGHT HOURS WITH FOOD NEEDED FOR PAIN. cyclobenzap 2023-0 Yes TAKE ONE Un gracy [...] No 25mg 25 mg, Uni vers e -16 03-15 Intramuscu ity of (PHENERGAN) 15:15: 15:33 lar, ONCE, [place] injection 00 :00 1 dose, On Medi dorothy 25 mg Sat Branch 03/16/23 at 1015, MATTHEW tiZANidine 2022-0 Yes [id number] 4mg Take 1 Univers 4 mg tablet 4-15 tablet by ity of 00:00: mouth [place] [id number] every 6 Medical (six) Branch hours as needed for Pain (scale 4-6) for up to 20 doses. diclofenac 2022-0 Yes [id number] 50mg Take 1 Univers 50 mg 4-15 tablet by ity of tablet 00:00: mouth in 00 the Medical morning Branch and 1 tablet in the evening. tiZANidine 2022-0 Yes [id number] 4mg Take 1 Univers 4 mg tablet 4-15 tablet by ity of 00:00: mouth [place] [id number] every 6 Medical (six) Branch hours as needed for Pain (scale 4-6) for up to 20 doses. diclofenac 2022-0 Yes [id number] 50mg Take 1 Univers 50 mg 4-15 tablet by ity of tablet 00:00: mouth in [place] 00 the Medical morning Branch and 1 tablet in the evening. tiZANidine 2023-0 Yes [id number] 4mg Take 1 Univers 4 mg tablet 4-15 tablet by ity of 00:00: mouth [place] 00 every 6 Medical (six) Branch hours as needed for Pain (scale 4-6) for up to 20 doses. diclofenac 2023-0 Yes [id number] 50mg Take 1 Univers 50 mg 4-15 tablet by ity of tablet 00:00: mouth in [place] 00 the Medical morning Branch and 1 tablet in the evening. tiZANidine 2023-0 Yes [id number] 4mg Take 1 Univers 4 mg tablet 4-15 tablet by ity of 00:00: mouth [place] 00 every 6 Medical (six) Branch hours as needed for Pain (scale 4-6) for up to 20 doses. diclofenac 2023-0 Yes [id number] 50mg Take 1 Univers 50 mg 4-15 tablet by ity of tablet 00:00: mouth in [place] 00 the Medical morning Branch and 1 tablet in the evening. tiZANidine 2023-0 Yes [id number] 4mg Take 1 Univers 4 mg tablet 4-15 tablet by ity of 00:00: mouth [place] 00 every 6 Medical (six) Branch hours as needed for Pain (scale 4-6) for up to 20 doses. diclofenac 2023-0 Yes [id number] 50mg Take 1 Univers 50 mg 4-15 tablet by ity of tablet 00:00: mouth in [place] 00 the Medical morning Branch and 1 tablet in the evening. tiZANidine 2023-0 Yes [id number] 4mg Take 1 Univers 4 mg tablet 4-15 tablet by ity of 00:00: mouth [place] 00 every 6 Medical (six) Branch hours as needed for Pain (scale 4-6) for up to 20 doses. diclofenac 2023-0 Yes [id number] 50mg Take 1 Univers 50 mg 4-15 tablet by ity of tablet 00:00: mouth in [place] 00 the Medical morning Branch and 1 tablet in the evening. tiZANidine 2023-0 Yes [id number] 4mg Take 1 Univers 4 mg tablet 4-15 tablet by ity of 00:00: mouth [place] 00 every 6 Medical (six) Branch hours as needed for Pain (scale 4-6) for up to 20 doses. diclofenac 2023-0 Yes [id number] 50mg Take 1 Univers 50 mg 4-15 tablet by ity of tablet 00:00: mouth in [place] 00 the Medical morning Branch and 1 tablet in the evening. tiZANidine 2023-0 Yes [id number] 4mg Take 1 Univers 4 mg tablet 4-15 tablet by ity of 00:00: mouth [place] 00 every 6 Medical (six) Branch hours as needed for Pain (scale 4-6) for up to 20 doses. diclofenac 2023-0 Yes [id number] 50mg Take 1 Univers 50 mg 4-15 tablet by ity of tablet 00:00: mouth in [place] 00 the Medical morning Branch and 1 tablet in the evening. tiZANidine 2023-0 Yes [id number] 4mg Take 1 Univers 4 mg tablet 4-15 tablet by ity of 00:00: mouth [place] 00 every 6 Medical (six) Branch hours as needed for Pain (scale 4-6) for up to 20 doses. diclofenac 2023-0 Yes [id number] 50mg Take 1 Univers 50 mg 4-15 tablet by ity of tablet 00:00: mouth in [place] 00 the Medical morning Branch and 1 tablet in the evening. tiZANidine 2023-0 Yes [id number] 4mg Take 1 Univers 4 mg tablet 4-15 tablet by ity of 00:00: mouth [place] 00 every 6 Medical (six) Branch hours as needed for Pain (scale 4-6) for up to 20 doses. diclofenac 2023-0 Yes [id number] 50mg Take 1 Univers 50 mg 4-15 tablet by ity of tablet 00:00: mouth in [place] 00 the Medical morning Branch and 1 tablet in the evening. tiZANidine 2023-0 Yes [id number] 4mg Take 1 Univers 4 mg tablet 4-15 tablet by ity of 00:00: mouth [place] 00 every 6 Medical (six) Branch hours as needed for Pain (scale 4-6) for up to 20 doses. tiZANidine 2023-0 Yes [id number] 4mg Take 1 Univers 4 mg tablet 4-15 tablet by ity of 00:00: mouth [place] 00 every 6 Medical (six) Branch hours as needed for Pain (scale 4-6) for up to 20 doses. tiZANidine 2023-0 Yes [id number] 4mg Take 1 Univers 4 mg tablet 4-15 tablet by ity of 00:00: mouth [place] 00 every 6 Medical (six) Branch hours as needed for Pain (scale 4-6) for up to 20 doses. tiZANidine 3-0 Yes [id number] 4mg Take 1 Univers 4 mg tablet 4-15 tablet by ity of 00:00: mouth [place] 00 every 6 Medical (six) Branch hours as needed for Pain (scale 4-6) for up to 20 doses. tiZANidine 3-0 Yes [id number] 4mg Take 1 Univers 4 mg tablet 4-15 tablet by ity of 00:00: mouth [place] 00 every 6 Medical (six) Branch hours as needed for Pain (scale 4-6) for up to 20 doses. tiZANidine 3-0 Yes [id number] 4mg Take 1 Univers 4 mg tablet 4-15 tablet by ity of 00:00: mouth [place] 00 every 6 Medical (six) Branch hours as needed for Pain (scale 4-6) for up to 20 doses. tiZANidine 3-0 Yes [id number] 4mg Take 1 Univers 4 mg tablet 4-15 tablet by ity of 00:00: mouth [place] 00 every 6 Medical (six) Branch hours as needed for Pain (scale 4-6) for up to 20 doses. tiZANidine 3-0 Yes [id number] 4mg Take 1 Univers 4 mg tablet 4-15 tablet by ity of 00:00: mouth [place] 00 every 6 Medical (six) Branch hours as needed for Pain (scale 4-6) for up to 20 doses. tiZANidine 3-0 Yes [id number] 4mg Take 1 Univers 4 mg tablet 4-15 tablet by ity of 00:00: mouth [place] 00 every 6 Medical (six) Branch hours as needed for Pain (scale 4-6) for up to 20 doses. tiZANidine 2023-0 Yes [id number] 4mg Take 1 Univers 4 mg tablet 4-15 tablet by ity of 00:00: mouth [place] 00 every 6 Medical (six) Branch hours as needed for Pain (scale 4-6) for up to 20 doses. tiZANidine 3-0 Yes [id number] 4mg Take 1 Univers 4 mg tablet 4-15 tablet by ity of 00:00: mouth [place] 00 every 6 Medical (six) Branch hours as needed for Pain (scale 4-6) for up to 20 doses. diclofenac 2022-0 3- No [id number] 50mg Take 1 Univers 50 mg 4-15 04-25 tablet by ity of tablet 00:00: 00:00 mouth in [place] 00 :00 the Medical morning Branch and 1 tablet in the evening. diclofenac 2022-0 3- No [id number] 50mg Take 1 Univers 50 mg 4-15 04-25 tablet by ity of tablet 00:00: 00:00 mouth in [place] 00 :00 the Medical morning Branch and 1 tablet in the evening. diclofenac 2022-0 2022- No [id number] 50mg Take 1 Univers 50 mg 4-15 04-25 tablet by ity of tablet 00:00: 00:00 mouth in [place] 00 :00 the Medical morning Branch and 1 tablet in the evening. gabapentin 2023-0 Yes TAKE ONE Uni [place] [...] [place] 00 [place] Medical EVERY [place] EIGHT HOURS. gabapentin 2023-0 Yes TAKE ONE [facility] vers 300 mg 4-05 (1) ity [place] capsule 00:00[place] Medical EVERY [place] EIGHT HOURS. gabapentin 2023-0 Yes TAKE ONE [facility] vers 300 mg 4-05 (1) it[place] capsule 00:00: [place] Medical EVERY [place] EIGHT HOURS. diclofenac 2023-0 Yes 75mg Take 1 [facility] 75 mg EC 4-02 tablet by ity of tablet 00:00: mouth in [place] 00 the Medical morning Branch and 1 tablet in the evening. diclofenac 2023-0 2023- No 75mg Take 1 [facility] ers 75 mg EC -01 05- tablet by ity o f tablet 00:00: 00:00 mouth in [place] 00 :00 the Medical morning Branch and 1 tablet in the evening. diclofenac 2023-0 2023- No 75mg Take 1 [facility] ers 75 mg EC -01 05-26 tablet by ity o f tablet 00:00: 00:00 mouth in [place] 00 :00 the Medical morning Branch and 1 tablet in the evening. diclofenac 2023-0 2023- No 75mg Take 1 [facility] ers 75 mg EC -01 05-26 tablet by ity o f tablet 00:00: 00:00 mouth in [place] 00 :00 the Medical morning Branch and 1 tablet in the evening. clonazePAM 2023-0 Yes .5mg Take 1 [facility] 0.5 mg 3-29 tablet by ity of tablet 00:00: mouth in [place] 00 the Medical morning Branch and 1 tablet in the evening. clonazePAM 2023-0 Yes .5mg Take 1 [facility] 0.5 mg 3-29 tablet by ity of tablet 00:00: mouth in [place] 00 the Medical morning Branch and 1 tablet in the evening. clonazePAM 2023-0 Yes .5mg Take 1 [facility] 0.5 mg 3-29 tablet by ity of tablet 00:00: mouth in [place] 00 the Medical morning Branch and 1 tablet in the evening. clonazePAM 2023-0 Yes .5mg Take 1 [facility] 0.5 mg 3-29 tablet by ity of tablet 00:00: mouth in [place] [address] the Medical morning Branch and 1 tablet in the evening. clonazePAM 2023-0 Yes .5mg Take 1 [facility] 0.5 mg 3-29 tablet by ity of tablet 00:00: mouth in [place] the Medical morning Branch and 1 tablet in the evening. clonazePAM 2023-0 Yes .5mg Take 1 [facility] 0.5 mg 3-29 tablet by ity of tablet 00:00: mouth in [place] the Medical morning Branch and 1 tablet in the evening. clonazePAM 2023-0 Yes .5mg Take 1 Unive rs 0.5 mg 3-29 tablet by ity of tablet 00:00: mouth in [place] [address] the Medical morning Branch and 1 tablet in the evening. clonazePAM 2023-0 Yes .5mg Take 1 [facility] rs 0.5 mg 3-29 tablet by ity of tablet 00:00: mouth in [place] [address] the Medical morning Branch and 1 tablet in the evening. clonazePAM 2023-0 Yes .5mg Take 1 [facility] 0.5 mg 3-29 tablet by ity of tablet 00:00: mouth in [place] [address] the Medical morning Branch and 1 tablet in the evening. clonazePAM 2023-0 Yes .5mg Take 1 [facility] rs 0.5 mg 3-29 tablet by ity of tablet 00:00: mouth in [place] [address] the Medical morning [place] and 1 tablet in the evening. proMETHazin 2023-0 Yes TAKE ONE Un gracy e 12.5 mg 3-16 (1) ity of tablet 00:00: TABLET(S) [place] BY MOUTH Medical EVERY [place] EIGHT HOURS NEEDED. diphenoxyla 2023-0 Yes TAKE ONE Un gracy te-atropine 3-16 (1) ity of 2.5-0.025 00:00: TABLET(S) [place] mg tablet 00 BY MOUTH Medica l THREE Branch TIMES A DAY NEEDED. busPIRone 2023-0 Yes 10mg Take 1 Univer s 10 mg 3-16 tablet by ity of tablet 00:00: mouth in [place] [address] the Medical morning [place] and 1 tablet in the evening. proMETHazin 2023-0 Yes TAKE ONE Un gracy e 12.5 mg 3-16 (1) ity of tablet 00:00: TABLET(S) [place] BY MOUTH Medical EVERY Branch EIGHT HOURS NEEDED. diphenoxyla 2023-0 Yes TAKE ONE Un gracy te-atropine 3-16 (1) ity of 2.5-0.025 00:00: TABLET(S) [place] mg tablet 00 BY MOUTH Medica l THREE Branch TIMES A DAY NEEDED. busPIRone 2023-0 Yes 10mg Take 1 Univer s 10 mg 3-16 tablet by ity of tablet 00:00: mouth in [place] 00 the Medical morning Branch and 1 [...] by ity of tablet 00:00: mouth in [place] the Medical morning Branch and 1 tablet in the evening. proMETHazin 2023-0 Yes TAKE ONE Un gracy e 12.5 mg 3-16 (1) ity of tablet 00:00: TABLET(S) [place] 00 BY MOUTH Medical EVERY Branch EIGHT HOURS NEEDED. diphenoxyla 2023-0 Yes TAKE ONE Un gracy te-atropine 3-16 (1) ity of 2.5-0.025 00:00: TABLET(S) [place] mg tablet 00 BY MOUTH Medica l THREE Branch TIMES A DAY NEEDED. busPIRone 2023-0 Yes 10mg Take 1 Univer s 10 mg 3-16 tablet by ity of tablet 00:00: mouth in [place] the Medical morning Branch and 1 tablet [...] by ity of tablet 00:00: mouth in [place] 00 the Medical morning Branch and 1 [...] by ity of tablet 00:00: mouth in [place] 00 the Medical morning Branch and 1 [...] by ity of tablet 00:00: mouth in [place] 00 the Medical morning Branch and 1 [...] by ity of tablet 00:00: mouth in [place] 00 the Medical morning Branch and 1 [...] by ity of tablet 00:00: mouth in [place] 00 the Medical morning Branch and 1 tablet in the evening. proMETHazin 2022-0 Yes TAKE ONE Un gracy e 12.5 mg 3-16 (1) ity of tablet 00:00: TABLET(S) [place] 00 BY MOUTH Medical EVERY Branch EIGHT HOURS NEEDED. diphenoxyla 2022-0 Yes TAKE ONE Un gracy te-atropine 3-16 (1) ity of 2.5-0.025 00:00: TABLET(S) [place] mg tablet 00 BY MOUTH Medica l THREE Branch TIMES A DAY NEEDED. busPIRone 2022-0 Yes 10mg Take 1 Univer s 10 mg 3-16 tablet by ity of tablet 00:00: mouth in [place] 00 the Medical morning Branch and 1 tablet in the evening. oxybutynin 2020-12 Yes 10mg QD Take 1 [facility] 2-19 tablet (10 [facility]a kes L) 10 MG 24 00:00: mg total) M edical hr tablet 00 by mouth Center daily. oxybutynin [...] tablet 00 by mouth Center daily. lisinopriL 2020-12- No hypertensio 5mg QD Take [address] [facility] (PRINIVIL,Z 2-19 05-24 n tablet (5 Marcella kes ESTRIL) 5 00:00: 00:00 mg total) Me dical MG tablet 00 :00 by mouth Center daily. lisinopriL 2020-12- No hypertensio 5mg QD Take [address] [facility] (PRINIVIL,Z 2-19 05-24 n tablet (5 Marcella kes ESTRIL) 5 00:00: 00:00 mg total) Me dical MG tablet 00 :00 by mouth Center daily. busPIRone 2020-12 Yes 5mg Q.[id number] Take [address] [facility] (BUSPAR) 5 2-18 [id number] by mouth 3 [facility] tablet 15:41: 3D (three) Medic al 03 times Center daily. busPIRone 2020-12 Yes 5mg Q.[id number] Take [address] [facility] (BUSPAR) 5 2-18 [id number] by mouth 3 [facility] tablet 15:41: 3D (three) Medic al 03 times Center daily. busPIRone 2020-12 Yes 5mg Q.[id number] Take [address] [facility] (BUSPAR) 5 2-18 [id number] by mouth 3 [facility] tablet 15:41: 3D (three) Medic al 03 times Center daily. busPIRone 2020-12 Yes 5mg Q.[id number] Take [address] [facility] (BUSPAR) 5 2-18 [id number] by mouth 3 [facility] tablet 15:41: [...] (three) times daily as needed (bladder spasms). ondansetron 2020-12 Yes 4mg Take 1 [facility] [...] times daily as needed (bladder spasms). HYDROcodone 2020-12- No 1{tbl} Take [address] [facility] [address] -acetaminop 2-18 05-24 tablet by Marcella kes hen (NORCO 00:00: 00:00 mouth Medic al 5-325) 00 :00 every 6 Center 5-325 mg (six) per tablet hours as needed for Pain. Max Daily Amount: 4 tablets HYDROcodone 2020-12- No 1{tbl} Take [address] -acetaminop 2-18 05-24 tablet by Marcella kes hen (NORCO 00:00: 00:00 mouth Medic al 5-325) 00 :00 every 6 Center 5-325 mg (six) per tablet hours as needed for Pain. Max Daily Amount: 4 tablets ibuprofen 2020- No 600mg 600 mg, Uni vers (IBU) 1-25 01-25 Oral, ity of tablet 600 04:45: 03:53 ONCE, 1 [place] mg 00 :00 dose, [facility] 12/25/20 at Branch 2245, MATTHEW ibuprofen 2020- No 600mg 600 mg, Uni vers (IBU) 12-26 Oral, ity of tablet 600 00:30: 12:29 ONCE, 1 [place] mg 00 :00 dose, [facility] 12/25/20 at Branch 1830, MATTHEW metroNIDAZO 2020- No [id number] 2000mg Take 4 [facility] LE 500 mg 12-26 tablets by ity of tablet 00:00: 05:59 mouth 2 [place] 00 :00 (two) Medical times [place] daily for 1 dose. NaCl 0.9% No 1000mL at 999 Uni vers (NS) bolus 12-25 mL/hr, ity of infusion 17:30: 18:07 1,000 mL, [place] 1,000 mL 00 :00 IV Medical Infusion, [place] ONCE, 1 dose, [place] 12/25/20 at 1130, STAT proMETHazin No 12.5mg 12.5 mg, Univers e 12-25 IV ity of (PHENERGAN) 17:30: 16:45 [place], [place] 12.5 mg in 00 :00 ONCE, 1 Medica l NaCl 0.9% dose, [facility] h (NS) 50 mL 12/25/20 at piggyback 1130, 50 mL cefTRIAXone No 250mg 250 mg, U nivers (ROCEPHIN) 12-25 Intramuscu it y of injection 16:30: 16:45 [place], [place] 250 mg 00 :00 NOW, 1 Medical dose, [facility] 12/25/20 at 1030, MATTHEW
Fa culty member approving Restricted medication : MYNOR HOLLIS
Reaso n for Anti-Infec tive: Documented Infection< br>Docu mented Infection Site: Abdominal< br>Duratio n of Therapy: 7 days azithromyci 2020- No 1000mg 1,000 mg, Univers n 12-25 Oral, ONCE ity of (ZITHROMAX) 16:30: 16:44 NOW, 1 [place] tablet 00 :00 dose, [place] Medical 1,000 mg 12/25/20 at [facility] 1030, MATTHEW
Re ason for Anti-Infec tive: Documented Infection< br>Documen fatemeh Infection Site: COVID
D uration of Therapy: 7 days FENTanyl PF 2020-0 Yes 50ug 50 mcg, Uni vers (SUBLIMAZE 1-24 Slow IV ity of (PF)) 16:14: [place], [place] injection 05 Q30MIN Medical 50 mcg PRN, 3 Branch doses, Starting 12/25/20 at 1014, Until Discontinu ed, MATTHEW, Pain (scale 7-10) iohexol 2019-0 2020- No 120mL 120 mL, Unive rs (OMNIPAQUE 07-15 Intravenou it y of 350 22:15: 22:15 s, ONCE, 1 [place] BULK-150 00 :00 dose, Fri Medica l mL) 07/15/20 at [place] injection 1715, 120 mL Routine dicyclomine 2019-0 Yes 10mg 10 mg, Univ ers (BENTYL) 8-14 Oral, QID, ity o f capsule 10 21:00: First dose [place] mg 00 on Fri Medical 07/15/20 at [place] 1600, Until Discontinu ed, Routine pantoprazol 2019-0 2020- No 80mg 80 mg, IV Univers e 07-15 Piggyback, ity of (PROTONIX) 19:45: 20:00 ONCE, 1 [place] as 80 mg in 00 :00 dose, Fri Medica l NaCl 0.9% 07/15/20 at [facility] (NS) 100 mL 1445, 100 IV mL Piggyback sucralfate 2020-0 Yes [id number] 1g Take 1 Un gracy 1 gram 8-14 tablet by ity of tablet 00:00: mouth [place] 00 before Medical meals and Branch at bedtime. dicyclomine 2020-0 Yes [id number] 10mg Take 1 U nivers (BENTYL) 10 8-14 capsule by it y of mg capsule 00:00: mouth [place] 00 every 8 Medical (eight) Branch hours as needed for Abdominal pain. ondansetron 2020-0 Yes [id number] 4mg Take 1 U nivers 4 mg 8-14 tablet by ity of disintegrat 00:00: mouth [place] ing tablet 00 every 8 Medica l (eight) Branch hours as needed for Nausea and Vomiting (N/V). sucralfate 2020-0 Yes [id number] 1g Take 1 Un gracy 1 gram 8-14 tablet by ity of tablet 00:00: mouth [place] 00 before Medical meals and Branch at bedtime. dicyclomine 2020-0 Yes [id number] 10mg Take 1 U nivers (BENTYL) 10 8-14 capsule by it y of mg capsule 00:00: mouth [place] 00 every 8 Medical (eight) Branch hours as needed for Abdominal pain. ondansetron 2020-0 Yes [id number] 4mg Take 1 U nivers 4 mg 8-14 tablet by ity of disintegrat 00:00: mouth [place] ing tablet 00 every 8 Medica l (eight) Branch hours as needed for Nausea and Vomiting (N/V). sucralfate 2020-0 Yes [id number] 1g Take 1 Un gracy 1 gram 8-14 tablet by ity of tablet 00:00: mouth [place] 00 before Medical meals and Branch at bedtime. dicyclomine 2020-0 Yes [id number] 10mg Take 1 U nivers (BENTYL) 10 8-14 capsule by it y of mg capsule 00:00: mouth [place] 00 every 8 Medical (eight) Branch hours as needed for Abdominal pain. ondansetron 2020-0 Yes [id number] 4mg Take 1 U nivers 4 mg 8-14 tablet by ity of disintegrat 00:00: mouth [place] ing tablet 00 every 8 Medica l (eight) Branch hours as needed for Nausea and Vomiting (N/V). sucralfate 2020-0 Yes [id number] 1g Take 1 Un gracy 1 gram 8-14 tablet by ity of tablet 00:00: mouth [place] 00 before Medical meals and Branch at bedtime. dicyclomine 2020-0 Yes [id number] 10mg Take 1 U nivers (BENTYL) 10 8-14 capsule by it y of mg capsule 00:00: mouth [place] 00 every 8 Medical (eight) Branch hours as needed for Abdominal pain. ondansetron 2020-0 Yes [id number] 4mg Take 1 U nivers 4 mg 8-14 tablet by ity of disintegrat 00:00: mouth [place] ing tablet 00 every 8 Medica l (eight) Branch hours as needed for Nausea and Vomiting (N/V). sucralfate 2020-0 Yes [id number] 1g Take 1 Un gracy 1 gram 8-14 tablet by ity of tablet 00:00: mouth [place] 00 before Medical meals and Branch at bedtime. dicyclomine 2020-0 Yes [id number] 10mg Take 1 U nivers (BENTYL) 10 8-14 capsule by it y of mg capsule 00:00: mouth [place] 00 every 8 Medical (eight) Branch hours as needed for Abdominal pain. ondansetron 2020-0 Yes [id number] 4mg Take 1 U nivers 4 mg 8-14 tablet by ity of disintegrat 00:00: mouth [place] ing tablet 00 every 8 Medica l (eight) Branch hours as needed for Nausea and Vomiting (N/V). sucralfate 2020-0 Yes [id number] 1g Take 1 Un gracy 1 gram 8-14 tablet by ity of tablet 00:00: mouth [place] 00 before Medical meals and Branch at bedtime. dicyclomine 2020-0 Yes [id number] 10mg Take 1 U nivers (BENTYL) 10 8-14 capsule by it y of mg capsule 00:00: mouth [place] 00 every 8 Medical (eight) Branch hours as needed for Abdominal pain. ondansetron 2020-0 Yes [id number] 4mg Take 1 U nivers 4 mg 8-14 tablet by ity of disintegrat 00:00: mouth [place] ing tablet 00 every 8 Medica l (eight) Branch hours as needed for Nausea and Vomiting (N/V). sucralfate 2020-0 Yes [id number] 1g Take 1 Un gracy 1 gram 8-14 tablet by ity of tablet 00:00: mouth [place] 00 before Medical meals and Branch at bedtime. dicyclomine 2020-0 Yes [id number] 10mg Take 1 U nivers (BENTYL) 10 8-14 capsule by it y of mg capsule 00:00: mouth [place] 00 every 8 Medical (eight) Branch hours as needed for Abdominal pain. ondansetron 2020-0 Yes [id number] 4mg Take 1 U nivers 4 mg 8-14 tablet by ity of disintegrat 00:00: mouth [place] ing tablet 00 every 8 Medica l (eight) Branch hours as needed for Nausea and Vomiting (N/V). sucralfate 2020-0 Yes [id number] 1g Take 1 Un gracy 1 gram 8-14 tablet by ity of tablet 00:00: mouth [place] 00 before Medical meals and Branch at bedtime. dicyclomine 2020-0 Yes [id number] 10mg Take 1 U nivers (BENTYL) 10 8-14 capsule by it y of mg capsule 00:00: mouth [place] 00 every 8 Medical (eight) Branch hours as needed for Abdominal pain. ondansetron 2020-0 Yes [id number] 4mg Take 1 U nivers 4 mg 8-14 tablet by ity of disintegrat 00:00: mouth [place] ing tablet 00 every 8 Medica l (eight) Branch hours as needed for Nausea and Vomiting (N/V). sucralfate 2020-0 Yes [id number] 1g Take 1 Un gracy 1 gram 8-14 tablet by ity of tablet 00:00: mouth [place] 00 before Medical meals and Branch at bedtime. dicyclomine 2020-0 Yes [id number] 10mg Take 1 U nivers (BENTYL) 10 8-14 capsule by it y of mg capsule 00:00: mouth [place] 00 every 8 Medical (eight) Branch hours as needed for Abdominal pain. ondansetron 2020-0 Yes [id number] 4mg Take 1 U nivers 4 mg 8-14 tablet by ity of disintegrat 00:00: mouth [place] ing tablet 00 every 8 Medica l (eight) Branch hours as needed for Nausea and Vomiting (N/V). sucralfate 2020-0 Yes [id number] 1g Take 1 Un gracy 1 gram 8-14 tablet by ity of tablet 00:00: mouth [place] 00 before Medical meals and Branch at bedtime. dicyclomine 2020-0 Yes [id number] 10mg Take 1 U nivers (BENTYL) 10 8-14 capsule by it y of mg capsule 00:00: mouth [place] 00 every 8 Medical (eight) Branch hours as needed for Abdominal pain. ondansetron 2020-0 Yes [id number] 4mg Take 1 U nivers 4 mg 8-14 tablet by ity of disintegrat 00:00: mouth [place] ing tablet 00 every 8 Medica l (eight) Branch hours as needed for Nausea and Vomiting (N/V). sucralfate 2020-0 Yes [id number] 1g Take 1 Un gracy 1 gram 8-14 tablet by ity of tablet 00:00: mouth [place] 00 before Medical meals and Branch at bedtime. dicyclomine 2020-0 Yes [id number] 10mg Take 1 U nivers (BENTYL) 10 8-14 capsule by it y of mg capsule 00:00: mouth [place] 00 every 8 Medical (eight) Branch hours as needed for Abdominal pain. ondansetron 2020-0 Yes [id number] 4mg Take 1 U nivers 4 mg 8-14 tablet by ity of disintegrat 00:00: mouth [place] ing tablet 00 every 8 Medica l (eight) Branch hours as needed for Nausea and Vomiting (N/V). sucralfate 2020-0 Yes [id number] 1g Take 1 Un gracy 1 gram 8-14 tablet by ity of tablet 00:00: mouth [place] 00 before Medical meals and Branch at bedtime. dicyclomine 2020-0 Yes [id number] 10mg Take 1 U nivers (BENTYL) 10 8-14 capsule by it y of mg capsule 00:00: mouth [place] 00 every 8 Medical (eight) Branch hours as needed for Abdominal pain. ondansetron 2020-0 Yes [id number] 4mg Take 1 U nivers 4 mg 8-14 tablet by ity of disintegrat 00:00: mouth [place] ing tablet 00 every 8 Medica l (eight) Branch hours as needed for Nausea and Vomiting (N/V). sucralfate 2020-0 Yes [id number] 1g Take 1 Un gracy 1 gram 8-14 tablet by ity of tablet 00:00: mouth [place] 00 before Medical meals and Branch at bedtime. dicyclomine 2020-0 Yes [id number] 10mg Take 1 U nivers (BENTYL) 10 8-14 capsule by it y of mg capsule 00:00: mouth [place] 00 every 8 Medical (eight) Branch hours as needed for Abdominal pain. ondansetron 2020-0 Yes [id number] 4mg Take 1 U nivers 4 mg 8-14 tablet by ity of disintegrat 00:00: mouth [place] ing tablet 00 every 8 Medica l (eight) Branch hours as needed for Nausea and Vomiting (N/V). sucralfate 2020-0 Yes [id number] 1g Take 1 Un gracy 1 gram 8-14 tablet by ity of tablet 00:00: mouth [place] 00 before Medical meals and Branch at bedtime. dicyclomine 2020-0 Yes [id number] 10mg Take 1 U nivers (BENTYL) 10 8-14 capsule by it y of mg capsule 00:00: mouth [place] 00 every 8 Medical (eight) Branch hours as needed for Abdominal pain. ondansetron 2020-0 Yes [id number] 4mg Take 1 U nivers 4 mg 8-14 tablet by ity of disintegrat 00:00: mouth [place] ing tablet 00 every 8 Medica l (eight) Branch hours as needed for Nausea and Vomiting (N/V). sucralfate 2020-0 Yes [id number] 1g Take 1 Un gracy 1 gram 8-14 tablet by ity of tablet 00:00: mouth [place] 00 before Medical meals and Branch at bedtime. dicyclomine 2020-0 Yes [id number] 10mg Take 1 U nivers (BENTYL) 10 8-14 capsule by it y of mg capsule 00:00: mouth [place] 00 every 8 Medical (eight) Branch hours as needed for Abdominal pain. ondansetron 2020-0 Yes [id number] 4mg Take 1 U nivers 4 mg 8-14 tablet by ity of disintegrat 00:00: mouth [place] ing tablet 00 every 8 Medica l (eight) Branch hours as needed for Nausea and Vomiting (N/V). sucralfate 2020-0 Yes [id number] 1g Take 1 Un gracy 1 gram 8-14 tablet by ity of tablet 00:00: mouth [place] 00 before Medical meals and Branch at bedtime. dicyclomine 2020-0 Yes [id number] 10mg Take 1 U nivers (BENTYL) 10 8-14 capsule by it y of mg capsule 00:00: mouth [place] 00 every 8 Medical (eight) Branch hours as needed for Abdominal pain. ondansetron 2020-0 Yes [id number] 4mg Take 1 U nivers 4 mg 8-14 tablet by ity of disintegrat 00:00: mouth [place] ing tablet 00 every 8 Medica l (eight) Branch hours as needed for Nausea and Vomiting (N/V). sucralfate 2020-0 Yes [id number] 1g Take 1 Un gracy 1 gram 8-14 tablet by ity of tablet 00:00: mouth [place] 00 before Medical meals and Branch at bedtime. dicyclomine 2020-0 Yes [id number] 10mg Take 1 U nivers (BENTYL) 10 8-14 capsule by it y of mg capsule 00:00: mouth [place] 00 every 8 Medical (eight) Branch hours as needed for Abdominal pain. ondansetron 2020-0 Yes [id number] 4mg Take 1 U nivers 4 mg 8-14 tablet by ity of disintegrat 00:00: mouth [place] ing tablet 00 every 8 Medica l (eight) Branch hours as needed for Nausea and Vomiting (N/V). sucralfate 2020-0 Yes [id number] 1g Take 1 Un gracy 1 gram 8-14 tablet by ity of tablet 00:00: mouth [place] 00 before Medical meals and Branch at bedtime. dicyclomine 2020-0 Yes [id number] 10mg Take 1 U nivers (BENTYL) 10 8-14 capsule by it y of mg capsule 00:00: mouth [place] 00 every 8 Medical (eight) Branch hours as needed for Abdominal pain. ondansetron 2020-0 Yes [id number] 4mg Take 1 U nivers 4 mg 8-14 tablet by ity of disintegrat 00:00: mouth [place] ing tablet 00 every 8 Medica l (eight) Branch hours as needed for Nausea and Vomiting (N/V). sucralfate 2020-0 Yes [id number] 1g Take 1 Un gracy 1 gram 8-14 tablet by ity of tablet 00:00: mouth [place] 00 before Medical meals and Branch at bedtime. dicyclomine 2020-0 Yes [id number] 10mg Take 1 U nivers (BENTYL) 10 8-14 capsule by it y of mg capsule 00:00: mouth [place] 00 every 8 Medical (eight) Branch hours as needed for Abdominal pain. ondansetron 2020-0 Yes [id number] 4mg Take 1 U nivers 4 mg 8-14 tablet by ity of disintegrat 00:00: mouth [place] ing tablet 00 every 8 Medica l (eight) Branch hours as needed for Nausea and Vomiting (N/V). sucralfate 2020-0 Yes [id number] 1g Take 1 Un gracy 1 gram 8-14 tablet by ity of tablet 00:00: mouth [place] 00 before Medical meals and Branch at bedtime. dicyclomine 2020-0 Yes [id number] 10mg Take 1 U nivers (BENTYL) 10 8-14 capsule by it y of mg capsule 00:00: mouth [place] 00 every 8 Medical (eight) Branch hours as needed for Abdominal pain. ondansetron 2020-0 Yes [id number] 4mg Take 1 U nivers 4 mg 8-14 tablet by ity of disintegrat 00:00: mouth [place] ing tablet 00 every 8 Medica l (eight) Branch hours as needed for Nausea and Vomiting (N/V). sucralfate 2020-0 Yes [id number] 1g Take 1 Un gracy 1 gram 8-14 tablet by ity of tablet 00:00: mouth [place] 00 before Medical meals and Branch at bedtime. dicyclomine 2020-0 Yes [id number] 10mg Take 1 U nivers (BENTYL) 10 8-14 capsule by it y of mg capsule 00:00: mouth [place] 00 every 8 Medical (eight) Branch hours as needed for Abdominal pain. ondansetron 2020-0 Yes [id number] 4mg Take 1 U nivers 4 mg 8-14 tablet by ity of disintegrat 00:00: mouth [place] ing tablet 00 every 8 Medica l (eight) Branch hours as needed for Nausea and Vomiting (N/V). sucralfate 2020-0 Yes [id number] 1g Take 1 Un gracy 1 gram 8-14 tablet by ity of tablet 00:00: mouth [place] 00 before Medical meals and Branch at bedtime. dicyclomine 2020-0 Yes [id number] 10mg Take 1 U nivers (BENTYL) 10 8-14 capsule by it y of mg capsule 00:00: mouth [place] 00 every 8 Medical (eight) Branch hours as needed for Abdominal pain. ondansetron 2020-0 Yes [id number] 4mg Take 1 U nivers 4 mg 8-14 tablet by ity of disintegrat 00:00: mouth [place] ing tablet 00 every 8 Medica l (eight) Branch hours as needed for Nausea and Vomiting (N/V). dicyclomine 2020-0 Yes [id number] 10mg Take 1 U nivers (BENTYL) 10 8-14 capsule by it y of mg capsule 00:00: mouth [place] 00 every 8 Medical (eight) Branch hours as needed for Abdominal pain. dicyclomine 2020-0 Yes [id number] 10mg Take 1 U nivers (BENTYL) 10 8-14 capsule by it y of mg capsule 00:00: mouth [place] 00 every 8 Medical (eight) Branch hours as needed for Abdominal pain. dicyclomine 2020-0 Yes [id number] 10mg Take 1 U nivers (BENTYL) 10 8-14 capsule by it y of mg capsule 00:00: mouth [place] 00 every 8 Medical (eight) Branch hours as needed for Abdominal pain. dicyclomine 2020-0 Yes [id number] 10mg Take 1 U nivers (BENTYL) 10 8-14 capsule by it y of mg capsule 00:00: mouth [place] 00 every 8 Medical (eight) Branch hours as needed for Abdominal pain. dicyclomine 2020-0 Yes [id number] 10mg Take 1 U nivers (BENTYL) 10 8-14 capsule by it y of mg capsule 00:00: mouth [place] 00 every 8 Medical (eight) Branch hours as needed for Abdominal pain. dicyclomine 2020-0 Yes [id number] 10mg Take 1 U nivers (BENTYL) 10 8-14 capsule by it y of mg capsule 00:00: mouth [place] 00 every 8 Medical (eight) Branch hours as needed for Abdominal pain. dicyclomine 2020-0 Yes [id number] 10mg Take 1 U nivers (BENTYL) 10 8-14 capsule by it y of mg capsule 00:00: mouth [place] 00 every 8 Medical (eight) Branch hours as needed for Abdominal pain. dicyclomine 2020-0 Yes [id number] 10mg Take 1 U nivers (BENTYL) 10 8-14 capsule by it y of mg capsule 00:00: mouth [place] 00 every 8 Medical (eight) Branch hours as needed for Abdominal pain. dicyclomine 2020-0 Yes [id number] 10mg Take 1 U nivers (BENTYL) 10 8-14 capsule by it y of mg capsule 00:00: mouth [place] 00 every 8 Medical (eight) Branch hours as needed for Abdominal pain. dicyclomine 2020-0 Yes [id number] 10mg Take 1 U nivers (BENTYL) 10 8-14 capsule by it y of mg capsule 00:00: mouth [place] 00 every 8 Medical (eight) Branch hours as needed for Abdominal pain. dicyclomine 2020-0 Yes [id number] 10mg Take 1 U nivers (BENTYL) 10 8-14 capsule by it y of mg capsule 00:00: mouth [place] 00 every 8 Medical (eight) Branch hours as needed for Abdominal pain. sucralfate 2020-0 2023- No [id number] 1g Take 1 U nivers 1 gram 8-14 04-25 tablet by ity of tablet 00:00: 00:00 mouth [place] 00 :00 before Medical meals and Branch at bedtime. ondansetron 2020-0 2022- No [id number] 4mg Take 1 Univers 4 mg 8-14 04-25 tablet by ity of disintegrat 00:00[place] :00 every 8 Medica l (eight) Branch hours as needed for Nausea and Vomiting (N/V). sucralfate 2019-0 2022- No [id number] 1g Take 1 U nivers 1 gram 8-14 04-25 tablet by ity of tablet 00:00: 00:00 mouth [place] 00 :00 before Medical meals and Branch at bedtime. ondansetron 2020-0 2022- No [id number] 4mg Take 1 Univers 4 mg 8-14 04-25 tablet by ity of disintegrat 00:00[place] 00[place] :00 every 8 Medica l (eight) Branch hours as needed for Nausea and Vomiting (N/V). sucralfate 2019-2022- No [id number] 1g Take 1 U nivers 1 gram 8-14 04-25 tablet by ity of tablet 00:00: 00:00 mouth [place] 00 :00 before Medical meals and Branch at bedtime. ondansetron 2019-2022- No [id number] 4mg Take 1 Univers 4 mg 8-14 04-25 tablet by ity of disintegrat 00:00: 00:[place] :00 every 8 Medica l (eight) Branch hours as needed for Nausea and Vomiting (N/V). omeprazole 2019-0 2019- No [id number] 20mg Take 1 U nivers 20 mg 8-14 09-14 capsule by ity of capsule 00:00: 04:59 mouth [place] 00 :00 daily for Medical 30 days. Branch omeprazole 2020-0 2020- No [id number] 20mg Take 1 U nivers 20 mg 8-14 09-14 capsule by ity of capsule 00:00: 04:59 mouth [place] 00 :00 daily for Medical 30 days. Branch omeprazole 2020-0 2020- No [id number] 20mg Take 1 U nivers 20 mg 8-14 09-14 capsule by ity of capsule 00:00: 04:59 mouth [place] 00 :00 daily for Medical 30 days. Branch omeprazole 2020-0 2019- No [id number] 20mg Take 1 U nivers 20 mg -08-15 capsule by ity of capsule 00:00: 04:59 mouth [place] 00 :00 daily for Medical 30 days. Branch omeprazole 2020-0 2020- No [id number] 20mg Take 1 U nivers 20 mg 8-08-15 capsule by ity of capsule 00:00: 04:59 mouth [place] 00 :00 daily for Medical 30 days. Branch omeprazole 2020-0 2020- No [id number] 20mg Take 1 U nivers 20 mg -08-15 capsule by ity of capsule 00:00: 04:59 mouth [place] 00 :00 daily for Medical 30 days. Branch omeprazole 2020-0 2020- No [id number] 20mg Take 1 U nivers 20 mg -08-15 capsule by ity of capsule 00:00: 04:59 mouth [place] 00 :00 daily for Medical 30 days. [place] omeprazole 2020-0 2020- No [id number] 20mg Take 1 U nivers 20 mg 07-15 capsule by ity of capsule 00:00: 04:59 mouth [place] 00 :00 daily for Medical 30 days. [place] enoxaparin 2020-0 Yes 40mg 40 mg, Unive rs (LOVENOX) 4-21 Subcutaneo ity of injection 14:00[place] Medical on [facility] 03/22/20 at 0900, Until Discontinu ed, Routine ondansetron 2020-0 Yes 4mg 4 mg, Slow Univers (ZOFRAN 4-21 IV Push, ity of (PF)) 09:23: Q6HPRN, [place] injection 4 44 Starting Medi dorothy mg [facility] 03/22/20 at 0423, Until Discontinu ed, Routine, Nausea and Vomiting (N/V) ketorolac 2020-0 Yes 15mg 15 mg, Univer s (TORADOL) 4-21 Slow IV ity of injection 09:23: Push, [place] 15 mg 14 Q6HPRN, 4 Medical doses, Branch Starting [facility] 03/22/20 at 0423, Until Discontinu ed, Routine, chest pain
Fa culty member approving Restricted medication : SANJAY LIND acetaminoph 2020-0 Yes 650mg 650 mg, Un gracy en 4-21 Oral, ity of (TYLENOL) 09:22: Q6HPRN, [place] tablet 650 49 Starting Medic al mg [facility] 03/22/20 at 0422, Until Discontinu ed, Routine, Pain (scale 1-3) ondansetron 2020- No 4mg 4 mg, Slow Univers (ZOFRAN -22 03- IV Push, ity of (PF)) 07:15: 07:14 ONCE, 1 [place] injection 4 00 :00 dose, Tue Med ical mg 03/22/20 at Branch 0215, MATTHEW ondansetron 2018-12 2020- No [id number] 4mg Take 1 Univers (ZOFRAN 2-25 -21 tablet by ity of ODT) 4 mg 00:00: 00:00 mouth [place] disintegrat 00 :00 every 8 Medic al ing tablet (eight) Branch hours as needed for Nausea and Vomiting (N/V). ketorolac 2018-12 2020- No [id number] 10mg Take 1 Univers 10 mg 2-25 - tablet by ity of tablet 00:00: 00:00 mouth [place] 00 :00 every 6 Medical (six) Branch hours as needed for Pain (scale 1-3). No known No Univers medications [facility] No known No [facility] No [facility] No Univers medications [facility] No known No Univers medications [facility] No known No Univers medications [facility] Immunizations Ordered Filled Immunization Date Status Comments [facility] e Immunization Name Name Influenza Virus 2017-09-26 Completed Universit y of Vaccine Quad IM 3+ 00:00:00 [facility] Influenza Virus 2017-09-26 Completed Universit y of Vaccine Quad IM 3+ 00:00:00 [facility] Influenza Virus 2017-09-26 Completed Universit y of Vaccine Quad IM 3+ 00:00:00 [facility] Influenza Virus 2017-09-26 Completed Universit y of Vaccine Quad IM 3+ 00:00:00 [facility] Influenza Virus 2017-09-26 Completed Universit y of Vaccine Quad IM 3+ 00:00:00 [facility] Influenza Virus 2017-09-26 Completed Universit y of Vaccine Quad IM 3+ 00:00:00 [facility] Influenza Virus 2017-09-26 Completed Universit y of Vaccine Quad IM 3+ 00:00:00 [facility] Influenza Virus 2017-09-26 Completed Universit y of Vaccine Quad IM 3+ 00:00:00 [facility] Influenza Virus 2017-09-26 Completed Universit y of Vaccine Quad IM 3+ 00:00:00 [facility] Influenza Virus 2017-09-26 Completed Universit y of Vaccine Quad IM 3+ 00:00:00 [facility] Influenza Virus 2017-09-26 Completed Universit y of Vaccine Quad IM 3+ 00:00:00 [facility] Influenza Virus 2017-09-26 Completed Universit y of Vaccine Quad IM 3+ 00:00:00 [facility] Influenza Virus 2017-09-26 Completed Universit y of Vaccine Quad IM 3+ 00:00:00 [facility] Influenza Virus 2017-09-26 Completed Universit y of Vaccine Quad IM 3+ 00:00:00 [facility] Influenza Virus 2017-09-26 Completed Universit y of Vaccine Quad IM 3+ 00:00:00 [facility] Influenza Virus 2017-09-26 Completed Universit y of Vaccine Quad IM 3+ 00:00:00 [facility] Influenza Virus 2017-09-26 Completed Universit y of Vaccine Quad IM 3+ 00:00:00 [facility] Influenza Virus 2017-09-26 Completed Universit y of Vaccine Quad IM 3+ 00:00:00 [facility] Influenza Virus 2017-09-26 Completed Universit y of Vaccine Quad IM 3+ 00:00:00 [facility] Influenza Virus 2017-09-26 Completed Universit y of Vaccine Quad IM 3+ 00:00:00 [facility] Influenza Virus 2017-09-26 Completed Universit y of Vaccine Quad IM 3+ 00:00:00 [facility] Influenza Virus 2017-09-26 Completed Universit y of Vaccine Quad IM 3+ 00:00:00 [facility] Influenza Virus 2017-09-26 Completed Universit y of Vaccine Quad IM 3+ 00:00:00 [facility] Influenza Virus 2017-09-26 Completed Universit y of Vaccine Quad IM 3+ 00:00:00 [facility] Influenza Virus 2017-09-26 Completed Universit y of Vaccine Quad IM 3+ 00:00:00 [facility] Influenza Virus 2017-09-26 Completed Universit y of Vaccine Quad IM 3+ 00:00:00 [facility] Influenza Virus 2017-09-26 Completed Universit y of Vaccine Quad IM 3+ 00:00:00 [facility] Influenza Virus 2017-09-26 Completed Universit y of Vaccine Quad IM 3+ 00:00:00 [facility] Influenza Virus 2017-09-26 Completed Universit y of Vaccine Quad IM 3+ 00:00:00 [facility] Influenza Virus 2017-09-26 Completed Universit y of Vaccine Quad IM 3+ 00:00:00 [facility] Influenza Virus 2017-09-26 Completed Universit y of Vaccine Quad IM 3+ 00:00:00 [facility] Influenza Virus 2017-09-26 Completed Universit y of Vaccine Quad IM 3+ 00:00:00 [facility] Influenza Virus 2017-09-26 Completed Universit y of Vaccine Quad IM 3+ 00:00:00 [facility] Influenza Virus 2017-09-26 Completed Universit y of Vaccine Quad IM 3+ 00:00:00 [facility] Influenza Virus 2017-09-26 Completed Universit y of Vaccine Quad IM 3+ 00:00:00 [facility] Influenza Virus 2017-09-26 Completed Universit y of Vaccine Quad IM 3+ 00:00:00 [facility] Influenza Virus 2017-09-26 Completed Universit y of Vaccine Quad IM 3+ 00:00:00 [facility] Influenza Virus 2017-09-26 Completed Universit y of Vaccine Quad IM 3+ 00:00:00 [facility] Influenza Virus 2017-09-26 Completed Universit y of Vaccine Quad IM 3+ 00:00:00 [facility] Vital Signs Vital Name Observation Time Observation Value Comments Source WEIGHT 2023-04-23 57.6 kg 03:00:00 WEIGHT 2023-04-23 57.6 kg 03:00:00 WEIGHT 2023-04-23 57.6 kg 03:00:00 Systolic blood 2023-04-08 143 mm[Hg] University of pressure 16:08:00 [facility] Diastolic blood 2023-04-08 91 mm[Hg] [place] o f pressure 16:08:00 [facility] Heart rate 2023-04-08 87 /min [facility] 16:08:00 [facility] Body temperature 2023-04-08 35.89 Yarelis [facility] 16:08:00 [facility] Body height 2023-04-08 152.4 cm University of 16:08:00 [facility] Body weight 2023-04-08 60.51 kg University of 16:08:00 [facility] Branch BMI 2023-04-08 26.05 kg/m2 University of 16:08:00 [facility] Heart rate 2023-03-27 86 /min University of 18:25:00 [facility] Respiratory rate 2023-03-27 15 /min University of 18:25:00 [facility] Oxygen saturation 2023-03-27 99 /min University of in Arterial blood 18:25:00 [place] Medi dorothy by Pulse oximetry Branch Systolic blood 2023-03-27 124 mm[Hg] University of pressure 18:15:00 [facility] Branch Diastolic blood 2023-03-27 95 mm[Hg] University o f pressure 18:15:00 [facility] Body temperature 2023-03-27 36 Yarelis University of 17:52:00 [facility] Body height 2023-03-27 152.4 cm University of 14:46:00 [facility] Body weight 2023-03-27 59.421 kg University of 14:46:00 [facility] BMI 2023-03-27 25.58 kg/m2 University of 14:46:00 [facility] Systolic blood 2023-03-27 141 mm[Hg] University of pressure 14:47:00 [facility] Diastolic blood 2023-03-27 87 mm[Hg] University o f pressure 14:47:00 [facility] Heart rate 2023-03-27 95 /min University of 14:47:00 [facility] Body temperature 2023-03-27 36.67 Yarelis University of 14:46:00 [facility] Branch Respiratory rate 2023-03-27 14 /min University of 14:46:00 [facility] Body height 2023-03-27 152.4 cm University of 14:46:00 [facility] Body weight 2023-03-27 59.421 kg University of 14:46:00 [facility] Branch BMI 2023-03-27 25.58 kg/m2 University of 14:46:00 [facility] Oxygen saturation 2023-03-27 98 /min University of in Arterial blood 14:46:00 [place] Medi dorothy by Pulse oximetry Branch Systolic blood 2023-03-25 131 mm[Hg] University of pressure 20:46:00 [place] [facility] Diastolic blood 2023-03-25 87 mm[Hg] University o f pressure 20:46:00 [facility] Heart rate 2023-03-25 114 /min University of 20:46:00 [facility] Body temperature 2023-03-25 36.56 Yarelis University of 20:46:00 [facility] Body height 2023-03-25 152.4 cm University of 20:46:00 [facility] Body weight 2023-03-25 61.598 kg University of 20:46:00 [facility] BMI 2023-03-25 26.52 kg/m2 University of 20:46:00 [facility] Systolic blood 2023-03-16 134 mm[Hg] University of pressure 14:40:00 [facility] Diastolic blood 2023-03-16 90 mm[Hg] University o f pressure 14:40:00 [facility] Heart rate 2023-03-16 87 /min University of 14:40:00 [facility] Body temperature 2023-03-16 37.28 Yarelis University of 14:40:00 [facility] Respiratory rate 2023-03-16 16 /min University of 14:40:00 [facility] Body height 2023-03-16 152.4 cm University of 14:40:00 [facility] Body weight 2023-03-16 56.7 kg University of 14:40:00 [facility] BMI 2023-03-16 24.41 kg/m2 University of 14:40:00 [facility] Oxygen saturation 2023-03-16 99 /min University of in Arterial blood 14:40:00 [facility] dorothy by Pulse oximetry Branch Systolic blood 2020-12-26 115 mm[Hg] University of pressure 09:00:00 [facility] Diastolic blood 2020-12-26 76 mm[Hg] University o f pressure 09:00:00 [facility] Heart rate 2020-12-26 78 /min University of 09:00:00 [facility] Body temperature 2020-12-26 36.22 Yarelis University of 09:00:00 [facility] Respiratory rate 2020-12-26 16 /min University of 09:00:00 [facility] Oxygen saturation 2020-12-26 100 /min University of in Arterial blood 09:00:00 [place] Medi dorothy by Pulse oximetry Branch Body weight 2020-12-26 53.978 kg University of 00:27:00 [facility] BMI 2020-12-26 24.04 kg/m2 University of 00:27:00 [facility] Systolic blood 2020-12-26 115 mm[Hg] University of pressure 09:00:00 [facility] Diastolic blood 2020-12-26 76 mm[Hg] University o f pressure 09:00:00 [facility] Heart rate 2020-12-26 78 /min University of 09:00:00 [facility] Body temperature 2020-12-26 36.22 Yarelis University of 09:00:00 [facility] Respiratory rate 2020-12-26 16 /min University of 09:00:00 [facility] Oxygen saturation 2020-12-26 100 /min University of in Arterial blood 09:00:00 [facility] by Pulse oximetry Branch Body weight 2020-12-26 53.978 kg University of :: [facility] BMI 2020-12-26 24.04 kg/m2 University of 00::00 [facility] Systolic blood 2020-12-25 92 mm[Hg] University of pressure 22:30:00 [facility] Diastolic blood 2020-12-25 59 mm[Hg] University o f pressure 22:30:00 [facility] Heart rate 2020-12-25 91 /min University of :30:00 [facility] Respiratory rate 2020-12-25 14 /min University of ::00 [facility] Oxygen saturation 2020-12-25 100 /min University of in Arterial blood 22:30:00 [facility] by Pulse oximetry Branch Body temperature 2020-12-25 36.89 Yarelis University of :07:00 [facility] Body height 2020-12-25 149.9 cm University of 16:07: [facility] Body weight 2020-12-25 53.978 kg University of 16:07:00 [facility] BMI 2020-12-25 24.04 kg/m2 University of 16:07:00 [facility] Systolic blood 2020-12-25 92 mm[Hg] University of pressure 22:30:00 [facility] Diastolic blood 2020-12-25 59 mm[Hg] University o f pressure 22:30:00 [facility] Heart rate 2020-12-25 91 /min University of 22:30:00 [facility] Respiratory rate 2020-12-25 14 /min University of 22:30:00 [facility] Oxygen saturation 2020-12-25 100 /min [place] of in Arterial blood 22:30:00 [facility] by Pulse oximetry Branch Body temperature 2020-12-25 36.89 Yarelis University of 16:07:00 [facility] Body height 2020-12-25 149.9 cm University of 16:07:00 [facility] Body weight 2020-12-25 53.978 kg University of 16:07:00 [facility] BMI 2020-12-25 24.04 kg/m2 University of 16:07:00 [facility] Systolic blood 2020-07-26 146 mm[Hg] University of pressure 20:54:00 [facility] Diastolic blood 2020-07-26 96 mm[Hg] University o f pressure 20:54:00 [facility] Heart rate 2020-07-26 91 /min University of 19:55:00 [facility] Body temperature 2020-07-26 36.78 Yarelis University of 19:55:00 [facility] Respiratory rate 2020-07-26 16 /min University of 19:55:00 [facility] Body height 2020-07-26 172.7 cm University of 19:55:00 [facility] Body weight 2020-07-26 54.148 kg University of 19:55:00 [facility] BMI 2020-07-26 18.15 kg/m2 University of 19:55:00 [facility] Systolic blood 2020-07-15 119 mm[Hg] University of pressure 23:00:00 [facility] Diastolic blood 2020-07-15 80 mm[Hg] University o f pressure 23:00:00 [facility] Heart rate 2020-07-15 79 /min University of 23:00:00 [facility] Respiratory rate 2020-07-15 20 /min University of 23:00:00 [facility] Oxygen saturation 2020-07-15 96 /min [facility] in Arterial blood 23:00:00 [facility] by Pulse oximetry Branch Body temperature 2020-07-15 37.11 Yarelis University of 18:21:00 [facility] Body weight 2020-07-15 52.164 kg University of 18:21:00 [facility] BMI 2020-07-15 17.49 kg/m2 University of 18:21:00 [facility] Body temperature 2020-06-12 36.89 Yarelis University 02:50:00 [facility] Respiratory rate 2020-06-12 24 /min [facility] 02:50:00 [facility] Body weight 2020-06-12 50.803 kg [facility] 02:50:00 [facility] BMI 2020-06-12 17.03 kg/m2 [facility] 02:50:00 [facility] Oxygen saturation 2020-06-12 98 /min [place] of in Arterial blood 02:50:00 [facility] by Pulse oximetry [place] Systolic blood 2020-06-12 141 mm[Hg] University of pressure 02:50:00 [facility] Diastolic blood 2020-06-12 105 mm[Hg] University o f pressure 02:50:00 [facility] Heart rate 2020-06-12 108 /min [facility] 02:50:00 [facility] Systolic blood 2020-03-22 131 mm[Hg] University of pressure 16:32:00 [facility] Diastolic blood 2020-03-22 81 mm[Hg] University o f pressure 16:32:00 [facility] Heart rate 2020-03-22 70 /min [facility] 16:32:00 [facility] Body temperature 2020-03-22 37.06 Yarelis [facility] 16:32:00 [facility] Respiratory rate 2020-03-22 18 /min [facility] 16:32:00 [facility] Oxygen saturation 2020-03-22 97 /min [facility] in Arterial blood 16:32:00 [facility] by Pulse oximetry [place] Body height 2020-03-22 172.7 cm patient stated [facility] 09:15:00 height on [place] Medical admission. [place] Body weight 2020-03-22 54.942 kg bedscale upon [place] of 09:15:00 admission to [facility] Branch BMI 2020-03-22 18.42 kg/m2 University 09:15:00 [facility] Heart rate 2023-04-24 122 /min [facility] 11:37:03 [facility] Respiratory rate 2023-04-24 16 /[facility] 11:37[facility]03 [facility] Oxygen saturation 2023-04-24 95 /min [facility] in Arterial blood 11:37:03 Medical Ce nter by Pulse oximetry Body temperature 2023-04-[address] [facility] 11:36:51 [facility] Systolic blood 2023-04-24 135 mm[Hg] [facility] pressure 11:36:30 [facility] Diastolic blood 2023-04-24 120 mm[Hg] [facility] pressure 11:36:30 [facility] Body weight 2023-04-23 57.6 kg [facility] 03:00:00 [facility] Procedures Procedure Date / Time Performing Clinician Source Performed CBC W/PLT COUNT & AUTO 2023-04-24 06:45:00 Dominique Jones [facility] DIFFERENTIAL [facility] CBC W/PLT COUNT & AUTO 2023-04-24 06:45:00 Dominique Jones [facility] DIFFERENTIAL [facility] Center CBC W/PLT COUNT & AUTO 2023-04-23 04:40:00 Dominique Jones [facility] BASIC METABOLIC PANEL 2023-04-23 04:40:00 Dominique Jones [facility] CBC W/PLT COUNT & AUTO 2023-04-23 04:40:00 Dominique Jones [facility] DIFFERENTIAL [facility] CBC W/PLT COUNT & AUTO 2023-04-22 04:00:00 Dominique Jones [facility] DIFFERENTIAL [facility] BASIC METABOLIC PANEL 2023-04-22 04:00:00 Dominique Jones [facility] CBC W/PLT COUNT & AUTO 2023-04-22 04:00:00 Dominique Jones [facility] DIFFERENTIAL [place] FLUORO NON-SPECIFIC UP 2023-04-21 11:50:00 Fernando Pandya [facility] 1 HOUR Center CYSTOSCOPY 2023-04-21 09:45:00 Mumtaz [facility] PROCEDURE W/ C-ARM 2023-04-21 09:45:00 Mumtaz [facility] STD PANEL - CT/GC RNA 2023-04-21 06:25:00 Dominique Jones [facility] SCREEN, URINE 2023-04-21 06:25:00 Artur Wong [facility] CBC W/PLT COUNT & AUTO 2023-04-21 06:22:00 Dominique Jones [facility] DIFFERENTIAL [facility] BASIC METABOLIC PANEL 2023-04-21 06:22:00 Dominique Jones [facility] HC LAB HIV-1 AG W/HIV-1&2 2023-04-21 06:22:00 Chalino Jones [facility] AB [place] HEPATITIS C ANTIBODY 2023-04-21 06:22:00 [facility] RPR 2023-04-21 06:22:00 [facility] PANEL 2023-04-21 06:22:00 [facility] [place] MAGNESIUM 2023-04-21 06:22:00 [facility] [place] PHOSPHORUS 2023-04-21 06:22:00 [facility] PROTHROMBIN TIME/INR 2023-04-21 06:22:00 [facility] TYPE AND SCREEN, 2023-04-21 06:22:00 [facility] AUT[facility] CBC W/PLT COUNT & AUTO 2023-04-21 06:22:00 Dyllan Felipe [facility] URINE CULTURE 2023-04-21 01:43:[address] [facility] URINALYSIS W/ REFLEX 2023-04-21 01:43:00 Dyllan Felipe [facility] URINE CULTURE Center MEDICATION CORRESPONDENCE 2023-03-29 05:01:00 Doctor Unassigned, No [facility] Name Medical Branch [place] TIME OR 2023-03-27 17:22:00 Dyllan Weller [facility] (NON-REPORTABLE) Medical Branch [place] TIME OR 2023-03-27 17:22:00 Dyllan Weller [facility] (NON-REPORTABLE) Medical Branch METACARPAL ORIF 2023-03-27 15:52:00 Yonas Fitzgerald [facility] NERVE BLOCK 2023-03-27 14:54:47 Dyllan Pak [facility] ASSIGNMENT OF BENEFITS 2023-03-27 14:19:17 Doctor Unassigned, No [facility] Branch XR SCAPULA LEFT 2023-03-25 21:23:00 Dyllan Weller [facility] XR SHOULDER 2+ VW LEFT 2023-03-25 21:23:00 Dyllan Weller [facility] XR HAND 3+ VW RIGHT 2023-03-25 21:23:00 Dyllan Weller [facility] ASSIGNMENT OF BENEFITS 2023-03-25 19:49:51 Doctor Unassigned, No [facility] XR HAND 3+ VW RIGHT 2023-03-16 15:18:48 Mojgan Shah [facility] NOTICE OF PRIVACY 2023-03-16 14:35:26 Doctor Unassigned, No [facility] [facility] PRACTICES Name Medical [place] CONSENT/REFUSAL FOR 2023-03-16 14:34:22 Doctor Unassigned, No [facility] DIAGNOSIS AND TREATMENT Name Medical Branch REFERRAL- 2023-03-04 05:01:00 Doctor Unassigned, No [facility] REQUEST/RESPONSE [facility] Medical Branch XR HAND 3+ VW LEFT 2020-12-26 09:21:04 Yonas Perea [facility] CT HEAD WO CONTRAST 2020-12-26 05:48:00 Yonas Perea [facility] ETHANOL 2020-12-25 21:54:00 Mynor Hollis [facility] ETHANOL 2020-12-25 20:21:00 Mynor Hollis [facility] POCT TEST 2020-12-25 18:07:00 Mynor Hollis [facility] ADC / LCC - DRUG SCREEN 2020-12-25 18:05:00 Mynor Hollis [facility] XR KUB 2020-12-25 17:06:45 Mynor Hollis [facility] COVID-19 (ID NOW RAPID 2020-12-25 16:55:00 Mynor Hollis [facility] TESTING) Medical Branch BASIC METABOLIC PANEL 2020-12-25 16:19:00 Mynor Hollis [facility] (NA, K, CL, CO2, GLUCOSE, Medica l Branch BUN, CREATININE, CA) ETHANOL 2020-12-25 16:19:00 Mynor Hollis [facility] CBC WITH DIFF 2020-12-25 16:19:00 Mynor Hollis [facility] ASSIGNMENT OF BENEFITS 2020-07-26 19:40:02 Doctor Unassigned, No [facility] CT ABDOMEN PELVIS W 2020-07-15 22:13:14 Singer [facility] CONTRAST [facility] POCT TEST 2020-07-15 18:47:00 Singer [facility] COMP. METABOLIC PANEL 2020-07-15 18:45:00 Singer [facility] ([id number]) Medical Branch CBC WITH DIFF 2020-07-15 18:45:00 Singer [facility] URINALYSIS 2020-07-15 18:45:00 [facility] COVID-19 (ID NOW RAPID 2020-07-15 18:45:00 Singer [facility] TESTING) Medical Branch CONSENT/REFUSAL FOR 2020-07-15 18:15:15 [facility] Name Medical Branch XR CHEST 1 VW 2020-06-12 21:33:46 Andrew Limon [facility] NOTICE OF PRIVACY 2020-06-12 20:57:27 Doctor Unassigned, No [facility] PRACTICES Name Medical Branch CONSENT/REFUSAL FOR 2020-06-12 20:53:21 [facility] Name Medical Branch ECHO ROUTINE W/DOPPLER 2020-03-22 14:40:35 Alex Thomas [facility] COLOR Medical Branch XR CHEST 1 VW COVID 2020-03-22 07:40:01 Shun Benedict [facility] CORONAVIRUS COVID-19 2020-03-22 07:16:00 Shun Benedict [facility] TESTING Medical Branch LIPASE 2020-03-22 07:14:00 Shun Benedict [facility] TROPONIN I 2020-03-22 07:14:00 Shun Benedict [facility] COMP. METABOLIC PANEL 2020-03-22 07:14:00 Shun Benedict [facility] ([id number]) [facility] CBC WITH DIFFERENTIAL 2020-03-22 07:14:00 Shun Benedict [facility] EKG-12 LEAD 2020-03-22 07:07:34 Shun Benedict [facility] EKG-12 LEAD 2020-03-22 07:01:19 Shun Benedict [facility] Plan of Care Planned Activity Planned Date [...] Medica l Center cervix (procedure) [code = 990848629] Future Scheduled [address] [facility] Test 00:00:00 malignant neoplasm of Medica l Center cervix (procedure) [code = 802106566] Future Scheduled [address] [facility] Test 00:00:00 malignant neoplasm of Medica l Center cervix (procedure) [code = 349032536] Future Scheduled [address] [facility] Test 00:00:00 malignant neoplasm of Medica l Center cervix (procedure) [code = 395084191] Future Scheduled [address] [facility] Test 00:00:00 malignant neoplasm of Medica l Center cervix (procedure) [code = 057599978] Future Scheduled [address] [facility] Test 00:00:00 malignant neoplasm of Medica l Center cervix (procedure) [code = 574200328] Future Scheduled 1997 DTAP/TDAP/TD VACCINES CH I [...] Facility Department ID 2021-09-30 Emergency [facility] [id number] Univers 19:08:09 ity [facility] 2021-09-29 Emergency [facility] [id number] Univers 12:33:46 ity [facility] 2021-09-29 Emergency [facility] [id number] Univers 06:13:55 ity [facility] 2021-09-29 Emergency [facility] [id number] Univers 06:12:05 ity [facility] 2020-05-12 Inpatient [facility] [id number] [facility] 00:35:00 93 [facility] 2020-02-17 Inpatient [facility] [id number] [facility] 15:56:00 19 [facility] 2023-04-20 2023-04-24 [facility] Artur Wong [facility] [id number] [facility] 23[facility]23[facility]00 15:44:00 [facility]24 [facility] Artur Wong [facility] [id number] [facility] 23[facility]23[facility] 15:44:00 [facility] 2023-04-24 Inpatient ER KATE [facility] Urology [id number] [facility] 23:23:00 15:44:00 [facility] 2023-04-22 2023-04-22 Outpatient [facility] [id number] Univers 10:20:00 10:20:00 YONAS garrett [facility] 2023-04-21 2023-04-21 Anesthesia Kiesha [facility] [id number] 09:22:00 12:02:00 Event [facility] 2023-04-21 2023-04-21 Anesthesia Kiesha [facility] [id number] 09:22:00 12:02:00 Event [facility] 2023-04-21 2023-04-21 Surgery Graham [facility] [id number] 09:00:00 11:26:00 [facility] 2023-04-21 2023-04-21 Surgery Mumtaz [facility] [id number] 09:00:00 11:26:00 [facility] 2023-04-20 2023-04-20 Travel [facility] [id number] [facility] 00:00:00 [facility] 2023-04-20 2023-04-20 Travel [facility] [id number] [facility] 00:[facility] 00:00:00 [facility] 2023-04-08 2023-04-08 [facility] 1.2.840.114 [id number] Univers 11:18:10 23:59:00 Encounter Yonas Arnold SPECIALTY [id number] it[place] [id number] Az milesblair STEVENSON 809 [facility] 2023-04-08 2023-04-08 Outpatient R [facility] [id number] Univers 11:30:00 12:05:00 YONAS samina [facility] 2023-04-08 2023-04-08 Office [facility] 1.2.840.114 [id number] Univers 11:30:00 12:05:00 Visit Yonas Arnold SPECIALTY 350.1.13.10 ity of CARE 4.2.7.2.686 [facility] C[facility] AT [id number] Az maryam GAMINO 198 [facility] 2023-03-29 2023-03-29 Orders Doctor SYLVIA 1.2.840.114 [id number] Univers 00:00:00 00:00:00 Only Unassigned, DERIAN 350.1.13.10 ity of [place] [facility] 4.2.7.2.686 Jose as [id number] [address] 2023-03-27 2023-03-27 Outpatient R [facility] SOR [id number] Univers 09:19:00 13:42:00 YONAS [facility] 2023-03-27 2023-03-27 Hospital [facility] 1.2.840.114 [id number] Univers 09:19:00 13:42:00 Encounter Yonas Arnold [facility] 350.1.13.10 ity of [place] 4.2.7.2.686 [facility] [phone] [address] ([facility]) 2023-03-27 2023-03-27 Anesthesia Ashely Myrick [facility] 1.2.840 .114 [id number] Univers 11:08:00 12:53:00 Event Antonio Monroe SPECIALTY 3 50.1.13.10 [place] [id number] Az maryam GAMINO 020 [facility] 2023-03-27 2023-03-27 Surgery [facility] 1.2.840.114 [id number] Univers 10:55:00 12:38:00 Yonas M SPECIALTY 350.1.13.10 [place] [id number] Az dicblair GAMINO 020 [facility] 2023-03-27 2023-03-27 Orders Doctor SYLVIA 1.2.840.114 [id number] Univers 00:00:00 00:00:00 Only Unassigned, DERIAN 350.1.13.10 ity of [place] [facility] 4.2.7.2.686 Jose as [id number] [facility] 009 [place] 2023-03-25 2023-03-25 [facility] 1.2.840.114 [id number] Univers 16:12:45 23:59:00 Encounter Yonas M SPECIALTY 350.1.13.10 it[place] [id number] Az dicblair COVARRUBIASY 809 [facility] 2023-03-25 2023-03-25 [facility] 1.2.840.114 [id number] Univers 16:12:33 23:59:00 Encounter Yonas M SPECIALTY 350.1.13.10 it[place] [id number] Az milesblair COVARRUBIASSamina 809 [facility] 2023-03-25 2023-03-25 Outpatient R [facility] [id number] Univers 15:10:00 17:04:47 YONAS ity of [facility] 2023-03-25 2023-03-25 Office [facility] 1.2.840.114 [id number] Univers 15:10:00 17:04:47 Visit Yonas M SPECIALTY 350.1.13.10 ity of [place] [id number] Az milesblair COVARRUBIASSamina 198 [facility] 2023-03-25 2023-03-25 [facility] 1.2.840.114 [id number] Univers 16:10:00 16:11:00 Encounter Yonas M SPECIALTY 350.1.13.10 it[place] [id number] Az maryam GAMINO 809 [facility] 2023-03-25 2023-03-25 Orders Doctor SYLVIA 1.2.840.114 [id number] Univers 00:00:00 00:00:00 Only Unassigned, DERIAN 350.1.13.10 ity of [place] [facility] 4.2.7.2.686 Jose as [phone] [facility] 009 Branch 2023-03-16 2023-03-16 Emergency X PABLO, K [facility] ERT [id number] Univers 09:41:00 12:36:00 ity of [facility] 2023-03-16 2023-03-16 Emergency Pablo, K [facility] 1.2.840.114 [id number] Univers 09:41:00 12:36:00 Loyda VELAZCO 350.1.13.10 i ty [facility] [place].2.7.2.[place] [phone] [facility] 084 Branch 2023-03-04 2023-03-04 Orders Doctor SYLVIA 1.2.840.114 [id number] Univers 00:00:00 00:00:00 Only Unassigned, DERIAN 350.1.13.10 ity of [place] [facility] 4.2.7.2.686 Jose as [id number] [facility] 009 Branch 2021-11-16 2021-11-18 Inpatient ER [facility] Urology [id number] [facility] 02:50:00 15:40:00 GRAZYNA 2020-12-25 2020-12-26 Emergency Brit, TRAUMA 1.2.718.030 [id number] 18:26:00 04:04:00 [facility] 350.1.13.10 4.2.7.2.686 [id number] 014 2020-12-25 2020-12-26 Emergency Brit, TRAUMA 1.2.294.729 [id number] Univers 18:26:00 04:04:00 [facility] 350.1.13.10 [place] [id number] [facility] 014 Branch 2020-12-25 2020-12-25 Emergency Telma [facility] 1.2.327.029 [id number] 10:03:00 18:22:00 [facility] 350.1.13.10 League 4.2.7.2.686 [facility] [id number] [address] ([facility]) 2020-12-25 2020-12-25 Emergency Telma [facility] 1.2.872.474 [id number] Univers 10:03:00 18:22:00 [facility] 350.1.13.10 it y of [place] 4.2.7.2.686 [facility] [id number] [address] ([facility]) 2020-12-25 2020-12-25 Emergency X TELMA [facility] ERT [id number] Univers 10:03:00 18:22:00 MYNOR ity [facility] 2020-08-17 2020-08-17 [facility] 1.2.840.114 [id number] 06:29:56 23:59:00 Encounter Roshunda R SPECIALTY 350.1.13.10 CARE 4.2.7.2.686 CENTER AT [id number] [address] 2020-08-17 2020-08-17 [facility] 1.2.840.114 [id number] [facility] 06:29:56 23:59:00 Encounter Roshunda R SPECIALTY 350.1.13.10 ity of CARE 4.2.7.2.686 [facility] CENTER AT [id number] Az dical [address] 2020-08-17 2020-08-17 Outpatient [facility] [id number] Univers 00:00:00 00:00:00 ROSHUNDA ity o f [facility] 2020-08-17 2020-08-17 Outpatient R [facility] [id number] Univers 00:00:00 00:00:00 ROSHUNDA ity o f [facility] 2020-08-10 2020-08-10 Telephone [facility] 1.2.648.321 [id number] 00:00:00 00:00:00 Roshunda R MATERIAL COORDINATOR 350.1.13.10 REGIONAL 4.2.7.2.686 MATERNAL [id number] & CHILD [address] [place] [address] 2020-08-10 2020-08-10 Telephone Pam [facility] 1.2.498.646 [id number] Univers 00:00:00 00:00:00 Tarikdi Robbins MATERIAL COORDINATOR 350.1.13.10 ity of [facility] 4.2.7.2.686 Jose as MATERNAL [id number] Med ical & CHILD [address] [place] [address] 2020-07-26 2020-07-26 Office [facility] 1.2.840.114 [id number] Univers 14:44:48 15:48:25 Visit Tarikdi Robbins MATERIAL COORDINATOR 350.1.13.10 ity of [facility] 4.2.7.2.686 Jose as MATERNAL [id number] [facility] & [address] 2020-07-26 2020-07-26 Outpatient R OROZCO [facility] [id number] Univers 14:00:00 14:00:00 DALIA tucker o f [facility] 2020-07-26 2020-07-26 Orders Doctor SYLVIA 1.2.840.114 [id number] Univers 00:00:00 00:00:00 Only Unassigned, DERIAN 350.1.13.10 ity of [place] [facility] 4.2.7.2.686 Jose as [id number] [facility] 009 [place] 2020-07-15 2020-07-15 Emergency [facility] 1.2.972.263 [id number] Univers 13:25:00 19:02:00 Dhruv Velazco 350.1.13.10 i ty of [place] 4.2.7.2.686 [facility] [phone] [facility] 084 [place] 2020-06-14 2020-06-14 Telephone SYLVIA Shi 1.2.840.114 [id number] Univers 00:00:00 00:00:00 Kaylah MENARD 350.1.13.10 i ty of [facility] 4.2.7.2.686 Jose as [phone] [facility] 019 [place] 2020-06-12 2020-06-12 Emergency [facility] 1.2.840.114 [id number] Univers 15:56:18 17:25:00 Andrew Christian 350.1.13.10 i ty of [place] 4.2.7.2.686 [facility] [phone] [address] 2020-06-11 2020-06-11 Emergency , [facility] 1.2.972.710 [id number] Univers 21:45:46 22:38:00 Dhruv Christian 350.1.13.10 i ty of [place] 4.2.7.2.686 [place] [phone] [address] 2020-04-07 2020-04-07 Outpatient R NICOLE, [facility] [id number] Univers 13:30:00 13:30:00 ELO stanford f [facility] 2020-04-07 2020-04-07 Telemedici [facility] 1..840.114 [id number] Univers 07:52:01 08:22:01 ne Visit Edvic Velazco 350.1.13.10 ity of [place].2.[place].2.[place] [phone] Az dical nal 044 [facility] 2020-04-04 2020-04-04 Emergency E TON, BL [facility]BL 7504 [facility]BL 16:52:00 19:36:00 DAVID 2020-03-29 2020-03-29 Outpatient R AL, [facility] [id number] Univers 09:40:00 09:40:00 KAYLEIGHCARINEFELISHA garrett [facility] 2020-03-29 2020-03-29 Telemedici [facility] ..840.114 [id number] Univers 07:59:20 08:14:20 ne Visit Kayleighabbie Velazco 350.1.13.10 ity of [place].2.[place] [phone] Az dical nal 059 [facility] 2020-03-22 2020-03-22 Emergency Shun Benedict S [facility] 1.2.840 .114 [id number] Univers 02:10:55 13:40:00 Sanjay Lind 350.1.13.10 ity of [place] 4.2.7.2.686 [facility] [id number] [place] [id number] Branch 2020-03-22 2020-03-22 Outpatient X [facility] [id number] Univers 02:10:55 13:40:00 SANJAY tucker [facility] 2019-08-07 2019-08-07 Emergency E MHCY MHCY 7503 [...] 0.00-1.00 = 2801) STD Panel - CT/GC [id number] 23:47:22 Test Item Value Reference Interpretation Comments Range C. trachomatis NOT DETECTED RNA, TMA (test code = 2287668) N. gonorrhoeae NOT DETECTED REFERENCE RA NGE: NOT RNA, TMA (test DETECTED Meth odology: code = 2996700) Transcriptio n Mediated Amplification ( TMA)to detect RNA. The analytical perf ormance characteristics of thisassay, when used to test SurePat h(TM) specimens haveb een determined by [employer]. Th e modificationsha ve not been cleared or approved by the FDA. This assayhas b een validated pursu ant to the CLIA regula tions andis used for clinical purpos es. For additional information, pl ease refer tohttps://educa tion.[employer]. com/faq /ZMR932(This li nk is being provided for informational/e ducatio nal purposes on ly.) CINDI (test code = Performing Lab CINDI) *QDID [facility] [address] [place] [address] Diego Mathew MD, PhD [facility]/GC [id number] 23:47:22 Test Item Value Reference Interpretation Comments Range C. trachomatis NOT DETECTED RNA, TMA (test code = 5070819) N. gonorrhoeae NOT DETECTED REFERENCE RA NGE: NOT RNA, TMA (test DETECTED Meth odology: code = 5543675) Transcriptio n Mediated Amplification ( TMA)to detect RNA. The analytical perf ormance characteristics of thisassay, when used to test SurePat h(TM) specimens haveb een determined by [facility]. Th e modificationsha ve not been cleared or approved by the FDA. This assayhas b een validated pursu ant to the CLIA regula tions andis used for clinical purpos es. For additional information, pl ease refer tohttps://educa tion.BoardEvals. Eved/faq /QZL184(This li nk is being provided for informational/e ducatio nal purposes on ly.) CINDI (test code = Performing Lab CINDI) *QDID [facility] [address] [address] Diego Mathew MD, PhD [facility] METABOLIC [id number] 06:05:43 Test Item Value Reference Range Interpretation [...] not appl icable for dialysis patien ts Analytical Clerk ID - ADMINCBC W/PLT COUNT & AUTO [id number] 05:27:38 Test Item Value Reference Range Interpretation [...] 0.00-1.00 PERCENT (BEAKER) (test code = 2801) [id number] 15:29:12 Test Item Value Reference Range Interpretation Comments RPR SCREEN (BEAKER) (test code = Nonreactive Nonreactive 420) BASIC METABOLIC [id number] 05:30:13 Test Item Value Reference Range Interpretation [...] 30-44 G4 Severl y decreased 15-29 G5 Kidne y failure <15Reported eGF R is based on the CKD-EPI 2021 equation that d oes not use a race coefficientEsti mated GFR is not as accur ate as Creatinine Bhumi hernan in predicting glom erular filtration rate . Estimated GFR is not appl icable for dialysis patien ts Analytical Clerk ID - MMCBC W/PLT COUNT & AUTO [id number] 05:00:11 Test Item Value Reference Range Interpretation [...] (BEAKER) (test code = 2801) HEPATITIS B [id number] 12:22:27 Test Item Value Reference Range Interpretation Comments HEPATITIS B CORE TOTAL ANTIBODY Nonreactive Nonreactive (BEAKER) (test code = 497) HEPATITIS B SURFACE ANTIBODY < mIU/mL <8.0 (BEAKER) (test code = 647) HEPATITIS B SURFACE ANTIGEN (2) Nonreactive Nonreactive (BEAKER) (test code = 2585) Analytical Clerk ID - ADMINFL, FLUORO, NON-SPECIFIC, UP TO 1 [id number] 11:50:00 Reason for exam:->[facility] BRENDA : 1980 Sex: FAn imaging unit was utilized for this procedure. No radiologist interpretation was requested. Refer to the EMR for findings. Refer to PACS for any patient radiation dose information.HIV-1 ANTIGEN WITH HIV-1/2 [id number] 11:41:16 Test Item Value Reference Range Interpretation Comments HIV-1 ANTIGEN WITH HIV 1\\T\\2 Nonreactive Nonreactive ANTIBODY (2) (BEAKER) (test code = 2586) Analytical Clerk ID - ADMINHEPATITIS C [id number] 11:41:11 Test Item Value Reference Range Interpretation Comments HEPATITIS C ANTIBODY (BEAKER) Nonreactive Nonreactive (test code = 367) Analytical Clerk ID - ADMINPregnancy Screen, [id number] 07:54:00 Test Item Value Reference Range Interpretation Comments Preg Test, Ur (test code = 2112-1) Negative Negative Lab Interpretation (test code = Normal 20374-1) [facility] [id number] 07:54:00 Test Item Value Reference Range Interpretation Comments Preg Test, Ur (test code = 2112-1) Negative Negative Lab Interpretation (test code = Normal 57434-0) [facility], [id number] 07:54:00 Test Item Value Reference Range Interpretation Comments TEST URINE (BEAKER) (test Negative Negative code = 583) BASIC METABOLIC [id number] 07:04:30 Test Item Value Reference Range Interpretation [...] eGF R is based on the CKD-EPI 1 equation that d oes not use a race coefficientEsti mated GFR is not as accur ate as Creatinine Bhumi becerra in predicting glom erular filtration rate . Estimated GFR is not appl icable for dialysis patien ts Analytical Clerk ID - [id number] 07:04:30 Test Item Value Reference Range Interpretation Comments MAGNESIUM (BEAKER) (test code = 1.9 mg/dL 1.6-2.6 627) Analytical Clerk ID - [id number] 07:04:30 Test Item Value Reference Range Interpretation Comments PHOSPHORUS (BEAKER) (test code = 2.9 mg/dL 2.3-4.7 604) Analytical Clerk ID - MARCOCBC W/PLT COUNT & AUTO [id number] 06:56:04 Test Item Value Reference Range Interpretation [...] PERCENT (BEAKER) (test code = 2801) PROTHROMBIN [id number] 06:49:20 Test Item Value Reference Range Interpretation Comments PROTIME (BEAKER) (test code = 13.1 seconds 11.9-14.2 759) INR (BEAKER) (test code = 370) 1.01 <=5.90 RECOMMENDED COUMADIN/WARFARIN INR THERAPY RANGESSTANDARD DOSE: 2.0 - 3.0 Includes: PROPHYLAXIS for venous thrombosis, systemic embolization; TREATMENT for venous thrombosis and/or pulmonary embolus.HIGH RISK: Target INR is 2.5-3.5 for patients with mechanical heart valves.Urinalysis w/Microscopic + Reflex to [id number] 02:32:21 Test Item Value Reference Range Interpretation Comments Color, UA (test code Yellow = 5778-6) Clarity, UA (test Hazy code = 5767-9) Specific [place], UA 1.038 1.001-1.035 H (test code = 5811-5) pH, UA (test code = 6.5 5.0-8.0 5803-2) Protein, UA (test 100 mg/dL Negative A code = 53672-3) Glucose, UA (test Negative Negative code = 365) Ketones, UA (test Negative Negative code = 2514-8) Bilirubin, UA (test Negative Negative code = 71767-5) Blood, UA (test code Moderate Negative A = 21719-6) Nitrite, UA (test Positive Negative A code = 5802-4) Leukocytes, UA (test Large Negative A code = 5799-2) Urobilinogen, UA 0.2 0.2-1.0 (test code = 42555-2) RBC, UA (test code = 116 See_Comment [Autom ated 72851-5) message] The system which generated this result transmit fatemeh reference range : /HPF. The reference range was not used to interpret this result as normal/abnormal . WBC, UA (test code = 584 See_Comment [Autom ated 5821-4) message] The system which generated this result transmit fatemeh reference range : /HPF. The reference range was not used to interpret this result as normal/abnormal . Kala Epithel, UA 20 See_Comment [Automate d (test code = 50598-1) messag e] The system which generated this result transmit fatemeh reference range : /HPF. The reference range was not used to interpret this result as normal/abnormal . Specimen Source (test code = 2795) CINDI (test code = CINDI) Analytical Clerk ID - [auto]Analytical Clerk ID - tech Lab Interpretation Abnormal (test code = 10854-8) [facility]Micro[facility]opic + Reflex to Culture 2023-04-21 02:32:21 Test Item Value Reference Range Interpretation Comments Color, UA (test code Yellow = 5778-6) Clarity, UA (test Hazy code = 5767-9) Specific Crossroads, UA 1.038 1.001-1.035 H (test code = 5811-5) pH, UA (test code = 6.5 5.0-8.0 5803-2) Protein, UA (test 100 mg/dL Negative A code = 55407-1) Glucose, UA (test Negative Negative code = 365) Ketones, UA (test Negative Negative code = 2514-8) Bilirubin, UA (test Negative Negative code = 38211-3) Blood, UA (test code Moderate Negative A = 30075-6) Nitrite, UA (test Positive Negative A code = 5802-4) Leukocytes, UA (test Large Negative A code = 5799-2) Urobilinogen, UA 0.2 0.2-1.0 (test code = 32741-9) RBC, UA (test code = 116 See_Comment [Autom ated 98853-0) message] The system which generated this result transmit fatemeh reference range : /HPF. The reference range was not used to interpret this result as normal/abnormal . WBC, UA (test code = 584 See_Comment [Autom ated 5821-4) message] The system which generated this result transmit fatemeh reference range : /HPF. The reference range was not used to interpret this result as normal/abnormal . Kala Epithel, UA 20 See_Comment [Automate d (test code = 70071-1) messag e] The system which generated this result transmit fatemeh reference range : /HPF. The reference range was not used to interpret this result as normal/abnormal . Specimen Source (test code = 2795) CINDI (test code = CINDI) Analytical Clerk ID - [auto]Analytical Clerk ID - tech Lab Interpretation Abnormal (test code = 69449-3) [facility] [id number] 02:32:21 Test Item Value Reference Range Interpretation [...] = 516) SOURCE(BEAKER) (test code = 2795) Analytical Clerk ID - [auto]Analytical Clerk ID - techBLOOD [id number] 06:00:50 Test Item Value Reference Range Interpretation Comments CULTURE (BEAKER) (test No growth in 5 days code = 1095) The specimen volume collected for this blood culture was below the optimum (10 mL per bottle or 20 mL total). Use of lower volumes may adversely affect recovery and/or detection times of some organisms.BLOOD [id number] 06:00:50 Test Item Value Reference Range Interpretation Comments CULTURE (BEAKER) (test No growth in 5 days code = 1095) SARS-COV2/RT-PCR ([facility])2021-11-18 08:28:01 Test Item Value Reference Range Interpretation Comments SARS-COV2/RT-PCR Negative Negative The SARS-Co V-2 target (test code = nucleic acids a re not 5447089) detected in thi s specimen. Negative result [...] revoked sooner. Fact Sheet for Healthcare Providers: https://www.Digital Path.Mobile365 (fka In[employer]Match) m/Documents/Xpert%20Xpress%20SARS%20CoV-2/Fact%20Sheets/3023802%13AQJK-OLZ-9%20 HEALTHCARE%20PROVIDERS%20FACT%20SHEET.pdf Fact Sheet for Healthcare Patients: https://www.SinCola/Documents/Xpert%20Xp ress%20SARS%20CoV-2/Fact%20Sheets/3023801%00QXIP-CVF-1%20PATIENT%20FACT%20SHEET .oxkIFVADUISR1595-00-96 06:04:17 Test Item Value Reference Range Interpretation Comments MAGNESIUM (BEAKER) 2.1 mg/dL 1.6-2.6 Specimen slightly (test code = 627) hemolyzed Analytical Clerk ID - NADEEM GOperator ID - NADEEM GBASIC METABOLIC [id number] 05:18:17 Test Item Value Reference Range Interpretation [...] S NOT APPLICABLE FOR DIALYSIS PATIEN TS. Analytical Clerk ID - NADEEM GCBC W/PLT COUNT & AUTO [id number] 04:53:25 Test Item Value Reference Range Interpretation [...] (BEAKER) (test code = 2801) BASIC METABOLIC [id number] 04:54:32 Test Item Value Reference Range Interpretation [...] S NOT APPLICABLE FOR DIALYSIS PATIEN TS. Analytical Clerk ID - MARIA D [id number] 04:54:32 Test Item Value Reference Range Interpretation Comments MAGNESIUM (BEAKER) (test code = 1.9 mg/dL 1.6-2.6 627) Analytical Clerk ID - MARIA D LCBC W/PLT COUNT & AUTO [id number] 04:16:32 Test Item Value Reference Range Interpretation [...] code = 2801) URINALYSIS W/ REFLEX URINE [id number] 09:09:42 Test Item Value Reference Range Interpretation [...] = 1521) SOURCE(BEAKER) (test code = 2795) Analytical Clerk ID - [auto]Analytical Clerk ID - techPREGNANCY SCREEN, [id number] 06:44:04 Test Item Value Reference Range Interpretation Comments TEST URINE (BEAKER) (test Negative code = 583) BASIC METABOLIC [id number] 06:03:02 Test Item Value Reference Range Interpretation [...] S NOT APPLICABLE FOR DIALYSIS PATIEN TS. Analytical Clerk ID - PIAYA LCBC W/PLT COUNT & AUTO [id number] 05:11:55 Test Item Value Reference Range Interpretation [...] 0-1 PERCENT (BEAKER) (test code = 2801) [id number] 22:12:00 Test Item Value Reference Range Interpretation Comments ALCOHOL (test code = 80 mg/dL 1746348983) CINDI (test code = Toxic Greater than or CINDI) equal to 80 mg/dL. NOTE: Whole blood values are approximately 10% to 15% lower than serum and plasma. [facility] 20:38[facility]00 Test Item Value Reference Range Interpretation Comments ALCOHOL (test code = 108 mg/dL 0523549625) CINDI (test code = Toxic Greater than or CINDI) equal to 80 mg/dL. NOTE: Whole blood values are approximately 10% to 15% lower than serum and plasma. [facility] / LC - DRUG SCREEN [id number] 18:24:00 Test Item Value Reference Range Interpretation Comments BENZO U (test code = Negative Negative 6685734141) SANDRA U (test code = Negative Negative 3873394682) AMPHET (test code = Negative Negative 0839055232) THC (test code = Negative Negative 4347523131) METHADONE (test code = Negative Negative 1443472066) Meth U (test code = Negative Negative 2474026216) OPIATES (test code = Negative Negative 1766900139) Cocaine Metabolite (test Presumptive Positive Negative A code = 6872787117) PROPOXY (test code = Negative Negative 2594207647) Tric U (test code = Negative Negative 8617082202) PCP (test code = Negative Negative 6564434551) OXYCOD (test code = Negative Negative 0876505949) CINDI (test code = CINDI) Urine Drug [...] testing). Lab Interpretation (test Abnormal code = 43856-8) [facility] [id number] 18:07:00 Test Item Value Reference Range Interpretation Comments POCT PREG (test code = 1605) Negative On board controls acceptable with C Present Line (test code = 3574) Lab Interpretation (test code = Normal 06969-5) [facility] [id number] 17:36:18 Nonobstructive bowel gas pattern. Preliminary Report [...] User - 12/25/2020 11:37 AM CSTEXAM: XR JAYDE: 40 years-old female; Indication for study: rectal pain.COMPARISON: CT abdomen pelvis dated 07/15/2020FINDINGS:The bowel gas pattern is non-obstructive. No abnormal calcifications or radiopaque stones are identified. No acute bony abnormalities are noted. Cholecystectomy clips are noted. Theurinary bladder is prominent.IMPRESSIONNonobstructive bowel gas pattern.Preliminary Report Dictated by Resident: Virginia Zamorano,Ander Gonzalez MD., have reviewed this study and agree with the abovereport.[facility] (ID NOW RAPID TESTING)2020-12-25 17:13:00 Test Item Value Reference Range Interpretation Comments SARS-CoV-2 Rapid ID NOW Not Detected Not Detected (test code = 95682-8) CINDI (test code = CINDI) ID NOW COVID-19 Assay is an isothermal nucleic acid amplification test intended for the qualitative detection of nucleic acid from SARS-CoV-2 viral RNA in nasopharyngeal (DATA SYSTEMS ANALYST) specimens. It is used under Emergency Use [...] indicated. Lab Interpretation Normal (test code = 74612-0) [facility] 16:37:00 Test Item Value Reference Range Interpretation Comments ALCOHOL (test code = 196 mg/dL 1771784076) CINDI (test code = Toxic Greater than or CINDI) equal to 80 mg/dL. NOTE: Whole blood values are approximately 10% to 15% lower than serum and plasma. [facility] (NA, K, CL, CO2, GLUCOSE, BUN, CREATININE, CA)2020-12-25 16:37:00 Test Item Value Reference Range Interpretation Comments NA (test code = 144 mmol/L 135-145 1583028415) K (test code = 4.4 mmol/L 3.5-5 9471816235) CL (test code = 109 mmol/L 98-108 H 9818050546) CO2 TOTAL (test code = 22 mmol/L 23-31 L 7471629494) AGAP (test code = 2-16 8403485710) BUN (test code = 9 mg/dL 7-23 0304760552) GLUCOSE (test code = 103 mg/dL 70-110 7419953851) CREATININE (test code = 0.66 mg/dL 0.5-1.04 7984130176) CALCIUM (test code = 8.9 mg/dL 8.6-10.6 1872926984) eGFR Calculation mL/min/1.73m2 (Non-) (test code = 1964178203) eGFR Calculation mL/min/1.73m2 () (test code = 6785533485) CINDI (test code = CINDI) Association of [...] tests). Lab Interpretation Abnormal (test code = 55583-9) [facility] WITH [id number] 16:25:00 Test Item Value Reference Range Interpretation Comments WBC (test code = See_Comment H [Automated 3890-2) message] The sy stem which generated this [...] RDW-SD (test code = 41.1 fL 39-49.9 44866-9) RDW-CV (test code = 12.3 % 12-15.5 788-0) PLT (test code = See_Comment H [Automated 777-3) message] The sy stem which generated this result transmitted reference range : 166 - 358 10*3/ ?L. The reference r carlos was not used to interpret this result as normal/abnormal . MPV (test code = 9.2 fL 9.5-12.9 L 68657-2) NRBC/100 WBC (test See_Comment [Automat ed code = 0049247456) message] The system which generated this result transmitted reference range : 0.0 - 10.0 /100 WBCs. The refer ence range was not u sed to interpret th is result as normal/abnormal . NRBC x10^3 (test code <0.01 See_Comment [Auto mated = 8198037314) message] The s ystem which generated this result transmitted reference range : 10*3/?L. The reference range was not used to interpret this result as normal/abnormal . GRAN MAT (NEUT) % 68.0 % (test code = 770-8) IMM GRAN % (test code 0.50 % = 7987723041) LYMPH % (test code = 20.5 % 736-9) MONO % (test code = 6.6 % 5905-5) EOS % (test code = 3.9 % 713-8) BASO % (test code = 0.5 % 706-2) GRAN MAT x10^3(ANC) 8.09 10*3/uL 1.88-7.09 H (test code = 5574633412) IMM GRAN x10^3 (test 0.06 10*3/uL 0-0.06 code = 5944602509) LYMPH x10^3 (test code 2.43 10*3/uL 1.32-3.29 = 731-0) MONO x10^3 (test code 0.78 10*3/uL 0.33-0.92 = 742-7) EOS x10^3 (test code = 0.46 10*3/uL 0.03-0.39 H 711-2) BASO x10^3 (test code 0.06 10*3/uL 0.01-0.07 = 704-7) Lab Interpretation Abnormal (test code = 31652-6) [facility] ([facility] NOW RAPID TESTING)2020-07-15 19:30:00 Test Item Value Reference Range Interpretation Comments SARS-CoV-2 Rapid ID NOW Not Detected Not Detected (test code = 41593-5) CINDI (test code = CINDI) ID NOW COVID-19 Assay is an isothermal nucleic acid amplification test intended for the qualitative detection of nucleic acid from SARS-CoV-2 viral RNA in nasopharyngeal (DATA SYSTEMS ANALYST) specimens. It is used under Emergency Use [...] indicated. Lab Interpretation Normal (test code = 73949-2) [facility]. METABOLIC PANEL (53050)2020-07-15 19:20:00 Test Item Value Reference Range Interpretation Comments NA (test code = 136 mmol/L 135-145 3552061403) K (test code = 4.6 mmol/L 3.5-5 7064971578) CL (test code = 102 mmol/L 98-108 8195875857) CO2 TOTAL (test code = 21 mmol/L 23-31 L 3571467206) AGAP (test code = 2-16 3106806330) BUN (test code = 7 mg/dL 7-23 8744940838) GLUCOSE (test code = 102 mg/dL 70-110 8128369895) CREATININE (test code = 0.82 mg/dL 0.5-1.04 0622745265) TOTAL BILI (test code = 0.8 mg/dL 0.1-1.1 0287331462) CALCIUM (test code = 9.8 mg/dL 8.6-10.6 5387702009) T PROTEIN (test code = 8.4 g/dL 6.3-8.2 H 4657395055) ALBUMIN (test code = 4.8 g/dL 3.5-5 5461360478) ALK PHOS (test code = 102 U/L 34-122 5327056481) ALTv (test code = 25 U/L 5-35 1742-6) AST(SGOT) (test code = 41 U/L 13-40 H 0626802118) eGFR Calculation mL/min/1.73m2 (Non-) (test code = 8941127402) eGFR Calculation mL/min/1.73m2 () (test code = 5893597261) CINDI (test code = CINDI) Association of [...] tests). Lab Interpretation Abnormal (test code = 53535-0) [facility]2020-[facility]14 19:20:00 Test Item Value Reference Range Interpretation Comments APPEARANCE (test code = Hazy Clear A 8175322442) COLOR (test code = Yvonne Yellow A 2996296590) PH (test code = 4.8-8.0 7673778743) SP GRAVITY (test code = 1.003-1.030 4138738161) GLU U QUAL (test code = Normal Normal 6155649702) BLOOD (test code = Negative Negative 1173491605) KETONES (test code = 5 mg/dL Negative A 9800430691) PROTEIN (test code = 30 mg/dL Negative A 2887-8) UROBILIN (test code = 2.0 mg/dL Normal A 6571939045) BILIRUBIN (test code = Negative Negative 6947457067) NITRITE (test code = Negative Negative 4992539942) LEUK SHIRLEY (test code = 25/uL Negative A 9698101524) RBC/HPF (test code = See_Comment [Autom ated message] 6280074635) The system [employer] generated this result transmit fatemeh reference range : 0 - 3 HPF. The refe rence range was not u sed to interpret th is result as normal/abnormal . WBC/HPF (test code = See_Comment [Autom ated message] 1973122926) The system [employer] generated this result transmit fatemeh reference range : 0 - 5 HPF. The refe rence range was not u sed to interpret th is result as normal/abnormal . BACTERIA (test code = Few Negative A 7820604342) MUCOUS (test code = Moderate Negative LPF A 7782878018) SQ EPITH (test code = HPF 7239239896) HYAL CAST (test code = See_Comment H [Aut omated message] 3260326846) The system [employer]omat[employer] generated this result transmit fatemeh reference range : <=2 LPF. The refere nce range was not u sed to interpret th is result as normal/abnormal . Lab Interpretation (test Abnormal code = 51773-8) [facility] WITH [id number] 19:07:00 Test Item Value Reference Range Interpretation [...] (test code = 38.5 fL 39-49.9 L 40584-7) RDW-CV (test code = 11.9 % 12-15.5 L 788-0) PLT (test code = See_Comment [Automated 777-3) message] The system which generated this result transmit fatemeh reference range : 166 - 358 10*3/ ?L. The reference range was not u sed to interpret th is result as normal/abnormal . MPV (test code = 9.5 fL 9.5-12.9 45779-1) NRBC/100 WBC (test See_Comment [Automat ed code = 3895095985) message] The system which generated this result transmit fatemeh reference range : 0.0 - 10.0 /100 WBCs. The reference range was not used to interpret this result as normal/abnormal . NRBC x10^3 (test code <0.01 See_Comment [Auto mated = 6475222779) message] The system which generated this result transmit fatemeh reference range : 10*3/?L. The reference range was not used to interpret this result as normal/abnormal . GRAN MAT (NEUT) % 79.2 % (test code = 770-8) IMM GRAN % (test code 0.40 % = 3784903104) LYMPH % (test code = 12.9 % 736-9) MONO % (test code = 5.2 % 5905-5) EOS % (test code = 1.9 % 713-8) BASO % (test code = 0.4 % 706-2) GRAN MAT x10^3(ANC) 11.12 10*3/uL 1.88-7.09 H (test code = 9398814314) IMM GRAN x10^3 (test 0.05 10*3/uL 0-0.06 code = 1520253604) LYMPH x10^3 (test code 1.81 10*3/uL 1.32-3.29 = 731-0) MONO x10^3 (test code 0.73 10*3/uL 0.33-0.92 = 742-7) EOS x10^3 (test code = 0.27 10*3/uL 0.03-0.39 711-2) BASO x10^3 (test code 0.05 10*3/uL 0.01-0.07 = 704-7) Lab Interpretation Abnormal (test code = 32650-1) [facility] [id number] 18:47:00 Test Item Value Reference Range Interpretation Comments POCT PREG (test code = 1605) negative On board controls acceptable with present C Line (test code = 3574) POCT PREG LOT # (test code = 3575) [id number] POCT PREG TEST DATE (test code = 3576) Lab Interpretation (test code = Normal 86893-1) [facility] 1 [id number] 22:08:34 No acute cardiopulmonary process. Preliminary Report [...] agree with theabove report. [facility] 1 VW [id number] 12:56:21 1. No acute intrathoracic abnormality, specifically no detectableradiographic findings to suggest COVID-19 pneumonia. Disclaimer: Generally, the findings on chest imaging in COVID-19 are notspecific, and overlap with other infections, including influenza, H1N1,SARS and MERS.According to the Centers for Disease Control (CDC) and the [employer], viral testing remains the only specific method of diagnosiseven if CXR or CT findings are suggestive of COVID-19. Preliminary Report Dictated by Resident: Eseosa Irlanda BazuayMargy Schrader MD., have reviewed this study and agree [...] Centers for Disease Control (CDC) and the [employer], viral testing remains the only specific method of diagnosiseven if CXR or CT findings are suggestive of COVID-19. Preliminary Report Dictated by Resident: Margy Ocasio MD.,have reviewed this study and agree with theabove report.[facility]. METABOLIC PANEL (96455)2020-03-22 08:04:00 Test Item Value Reference Range Interpretation Comments NA (test code = 138 mmol/L 135-145 8343892459) K (test code = 3.5 mmol/L 3.5-5 8723061375) CL (test code = 105 mmol/L 98-108 4050016952) CO2 TOTAL (test code = 22 mmol/L 23-31 L 8988937530) AGAP (test code = 2-16 8785712210) BUN (test code = 7 mg/dL 7-23 3147151873) GLUCOSE (test code = 99 mg/dL 70-110 8048470928) CREATININE (test code = 0.74 mg/dL 0.5-1.04 3574855497) TOTAL BILI (test code = 0.5 mg/dL 0.1-1.8 0353036670) CALCIUM (test code = 8.5 mg/dL 8.6-10.6 L 7209653155) T PROTEIN (test code = 6.7 g/dL 6.3-8.2 4775357165) ALBUMIN (test code = 4.1 g/dL 3.5-5 2014876445) ALK PHOS (test code = 74 U/L 34-122 6354070512) ALTv (test code = 32 U/L 5-35 1742-6) AST(SGOT) (test code = 54 U/L 13-40 H 6055032345) eGFR Calculation mL/min/1.73m2 (Non-) (test code = 9268508906) eGFR Calculation mL/min/1.73m2 () (test code = 0308151842) CINDI (test code = CINDI) Association of [...] tests). Lab Interpretation Abnormal (test code = 68331-6) [id number] 07:57:00 Test Item Value Reference Range Interpretation Comments TROPONIN I (test <0.012 See_Comment [Automated code = 1779533604) message] The system which generated this result [...] ? Lab Interpretation Normal (test code = 90571-4) [facility]-19 [id number] 07:56:00 Test Item Value Reference Range Interpretation Comments SARS-CoV-2 (test code = Not Detected Not Detected 90003-3) CINDI (test code = CINDI) ID NOW COVID-19 Assay is an isothermal nucleic acid amplification test intended for the qualitative detection of nucleic acid from SARS-CoV-2 viral RNA in nasopharyngeal (DATA SYSTEMS ANALYST) specimens. It is used under Emergency Use [...] indicated. Lab Interpretation Normal (test code = 77953-3) [facility]eville[facility]IPASE, [id number] 07:45:00 Test Item Value Reference Range Interpretation Comments LIPASE (test code = 9583795108) 58 U/L 0-220 Lab Interpretation (test code = Normal 23716-1) [facility] WITH [id number] 07:30:00 Test Item Value Reference Range Interpretation Comments WBC (test code = See_Comment [Automated 1890-2) message] The sy stem which generated this [...] RDW-SD (test code = 39.8 fL 39-49.9 06618-8) RDW-CV (test code = 12.1 % 12-15.5 788-0) PLT (test code = See_Comment [Automated 777-3) message] The sy stem which generated this result transmitted reference range : 166 - 358 10*3/ ?L. The reference r carlos was not used to interpret this result as normal/abnormal . MPV (test code = 9.2 fL 9.5-12.9 L 16980-4) NRBC/100 WBC (test See_Comment [Automat ed code = 0759664346) message] The system which generated this result transmitted reference range : 0.0 - 10.0 /100 WBCs. The refer ence range was not u sed to interpret th is result as normal/abnormal . NRBC x10^3 (test code <0.01 See_Comment [Auto mated = 7964063891) message] The s ystem which generated this result transmitted reference range : 10*3/?L. The reference range was not used to interpret this result as normal/abnormal . GRAN MAT (NEUT) % 62.2 % (test code = 770-8) IMM GRAN % (test code 0.50 % = 7723372121) LYMPH % (test code = 24.6 % 736-9) MONO % (test code = 7.7 % 5905-5) EOS % (test code = 4.5 % 713-8) BASO % (test code = 0.5 % 706-2) GRAN MAT x10^3(ANC) 6.71 10*3/uL 1.88-7.09 (test code = 1202847637) IMM GRAN x10^3 (test 0.05 10*3/uL 0-0.06 code = 3087389300) LYMPH x10^3 (test code 2.65 10*3/uL 1.32-3.29 = 731-0) MONO x10^3 (test code 0.83 10*3/uL 0.33-0.92 = 742-7) EOS x10^3 (test code = 0.49 10*3/uL 0.03-0.39 H 711-2) BASO x10^3 (test code 0.05 10*3/uL 0.01-0.07 = 704-7) Lab Interpretation Abnormal (test code = 56638-7) [facility] METABOLIC [id number] 17:09:00 Test Item Value Reference Range Interpretation [...] = ALKP) Specimen comments: ccSpecimen comments: SEPSIS [id number] 17:09:00 Test Item Value Reference Range Interpretation Comments LIPASE (test code = LIP) 318 Unit/L 114-286 H Specimen comments: ccSpecimen comments: SEPSIS [id number] 17:09:00 Test Item Value Reference Range Interpretation [...] = ALKP) Specimen comments: ccSpecimen comments: SEPSIS [id number] 17:03:00 Test Item Value Reference Range Interpretation Comments LIPASE (test code = LIP) 318 Unit/L 114-286 H Specimen comments: ccSpecimen comments: SEPSIS [id number] 17:03:00 Test Item Value Reference Range Interpretation [...] PROCAL) Specimen comments: ccSpecimen comments: SEPSIS WORKUPLACTIC [id number] 17:01:00 Test Item Value Reference Range Interpretation Comments LACTIC ACID (test code = LACT) 1.4 mmol/L 0.4-2.0 N Specimen comments: ccBASIC METABOLIC [id number] 16:58:00 Test Item Value Reference Range Interpretation [...] = ALKP) Specimen comments: ccSpecimen comments: SEPSIS [id number] 16:58:00 Test Item Value Reference Range Interpretation Comments LIPASE (test code = LIP) 318 Unit/L 114-286 H Specimen comments: ccSpecimen comments: SEPSIS [id number] 16:58:00 Test Item Value Reference Range Interpretation [...] HE NEGATIVERESULT DOES NOT RULE OUT THE GA ESENCE OF STREP GROUP A.W HEN STREP GROUP A ANTIGEN IS DETECTED, THE P OSITIVE RESULTIS SIGNIF ICANT. NEGATIVE RESULT S REFLEX A CULTURE. FORNEG ATIVE RESULTS A CULTU RE IS IN PROGRESS, RESUL T TO FOLLOW. HCG SERUM [id number] 16:55:00 Test Item Value Reference Range Interpretation Comments HCG SERUM QUAL (test code = HCGQL) NEG SCREEN NEG Specimen comments: SEPSIS WORKUP- XR CHEST 2 [id number] 16:55:00 FAX: Julia Sanz [phone] [place]: E St: PRE Patient Name: JAIDEN PLATA Unit No: [id number] EXAMS: CPT CODE: [id number] XR CHEST 2 V 69990 PA and lateral views of the chest Clinical indication: Cough and fevers Location R 16 COMPARISON: None The lungs are clear. The heart, mediastinum and bony structures are unre markable. Bilateral breast implants are in place. Impression: Normal at 1655 Reported and signed by: Apolonia Colon MD CC:Julia CARDENAS Dictated Date/Time: 02/17/2020 (1654)Technologist: Meek Moss Transcribed Date/Time: 02/17/2020 (1654) By: [email or web address] Orig Print D/T: S: 02/17/2020 (1657) KILLIAN Crawford NAME: JAIDEN PLATA [address] [place] [address] PHYS: TERESA.Brian Julia [place], [place] [address] : 1980 AGE: 39 SEX: F LOC: BLanceTAMMY PHONE #: [phone] EXAM DATE: 02/17/2020 STATUS: PRE ER FAX #: [phone] RAD NO: DC Dt: PAGE 1 Signed ReportUA RFLX MICR CULT IF [id number] 16:51:00 Test Item Value Reference Range Interpretation [...] Sepsis-no other srcUA RFLX MICR CULT IF [id number] 16:47:00 Test Item Value Reference Range Interpretation [...] for culture: Sev. Sepsis-no other srcCBC W/AUTO [id number] 16:45:00 Test Item Value Reference Range Interpretation [...] Date/Time Note Provider Source 2020-05-12 01:03:00-00:00 [facility] ([facility]) EMERGENCY PROVIDER REPORT REPORT#:[id number] REPORT STATUS: Signed DATE:05/12/20 TIME: 0103 PATIENT: JAIDEN PLATA UNIT #: [id number] ROOM/BED: AGE: 39 SEX: F PCP PHYS: No Primary or Family Ph ysician SERVICE AUTHOR: Parveen Poole MD * ALL edits or amendments must be made on the YuanV/computer document * HPI-Syncope General Initial Greet Date/Time [...] which required "shocks" at a different hospital [facility] months ago. Review of Systems ROS [...] Delivery Room air / 0040 Temp 98.3 05/12 0040 Pulse 105 / 0040 Resp 16 [...] 105 06/11 0040 Resp 16 06/11 0040 Last Documented: Result Date Time Pulse Ox 99 06/11 0040 B/P 146/87 06/11 0040 B/P Mean [...] Parveen Poole MD on 05/12 at 1424 [facility] #:[id number] END OF REPORT 2020-02-17 16:01:00-00:00 [facility] ([facility]) EMERGENCY PROVIDER REPORT REPORT#:[id number] REPORT STATUS: Signed DATE:02/17/20 TIME: 160 PATIENT: JAIDEN PLATA UNIT #: [id number] ROOM/BED: AGE: 39 SEX: F PCP PHYS: No Primary or Family Ph ysician SERVICE AUTHOR: Julia Buckner * ALL edits or amendments must be made on the [employer] document * WKT-Xjr-Ihre Illness General Confirmed Patient Yes Initial Greet [...] denies any travel within or out of [place] [place] in the last 4 weeks,and she [...] Room air 02/16 1559 Temp 100.6 02/16 155 Pulse 119 02/16 155 Resp 18 02/16 1559 Last Documented: Result [...] % (Auto) (14.1 - 45.4 %) 19.1 [place] % (Auto) (2.5 - 11.7 %) 8.0 Eos % (Auto) (0.0 - 6.2 %) 6.0 Baso % (Auto) (0.0 - 2.1 %) 0.3 Gran # (2.0 - 13.7 k/mm3) 3.98 Lymph # (Auto) (0.6 - 3.8 K/mm3) 1.15 [place] # (Auto) (0.11 - 0.59 K/mm3) 0.48 [...] - 8.0 pH UNITS) 6.0 Ur Specific [place] (1.001 - 1.035 SG) 1.009 Urine Protein [...] 162 Blood Culture - RES BLOOD 02/16 1615 [...] symptoms should prompt an immediate return to [facility] or the closest emergency department or a call to 911. Quality Measures Tobacco Screening/Cessation 18 years or older, T obacco user, Counseled 3-10 minutes Free Text Depart Notes Free Text Depart Notes RefFered to Ava Esteban Electronically Signed by Julia Buckner on 01/31 at 2108 RPT #:[id number] END OF REPORT 2020-02-17 16:01:00-00:00 [facility] ([facility]) EMERGENCY PROVIDER REPORT REPORT#:[id number] REPORT STATUS: Signed DATE:02/17/20 TIME: 160 PATIENT: JAIDEN PLATA UNIT #: [id number] ROOM/BED: AGE: 39 SEX: F PCP PHYS: No Primary or Family Ph ysician SERVICE AUTHOR: Julia Buckner * ALL edits or amendments must be made on the YuanV/computer document * Julia Buckner 02/17/20 1601: YGG-Shz-Hdsf Illness General Confirmed Patient Yes Assumed Care [...] denies any travel within or out of [facility] [place] in the last 4 weeks,and she [...] % (Auto) (14.1 - 45.4 %) 19.1 [place] % (Auto) (2.5 - 11.7 %) 8.0 Eos % (Auto) (0.0 - 6.2 %) 6.0 Baso % (Auto) (0.0 - 2.1 %) 0.3 Gran # (2.0 - 13.7 k/mm3) 3.98 Lymph # (Auto) (0.6 - 3.8 K/mm3) 1.15 [place] # (Auto) (0.11 - 0.59 K/mm3) 0.48 [...] - 8.0 pH UNITS) 6.0 Ur Specific [place] (1.001 - 1.035 SG) 1.009 Urine Protein [...] symptoms should prompt an immediate return to [facility] or the closest emergency department or a call to 911. Quality Measures Tobacco Screening/Cessation 18 years or older, T obacco user, Counseled 3-10 minutes Free Text Depart Notes Free Text Depart Notes RefFered to Nikhil Bui 02/19/20 1048: [facility]S-Ket-Twff Illness General Initial Greet Date/Time 02/17/20 1559 Patient Discharge Departure Supervising Physician Note MidLv Saw Pt Alone I have reviewed the PA/DATA SYSTEMS ANALYST's note and plan of car e. I was available for consultation as needed at al l times during the patient's visit in the emergency department. I agree with the clinical impression , plan and disposition. Electronically Signed by Julia Buckner on 01/31 at 2108 Electronically Signed by Nikhil Santos DO on at 2588 [facility] #:[id number] END OF REPORT
[2023-04-28] MEDS ORDERED: IBUPROFEN 400 MG TAB ONE (00:43)
[2023-04-28] MEDS ORDERED: HYDROCODONE/APAP 10/325 TAB ONE (00:43)
[2023-04-28] MEDS ORDERED: ONDANSETRON 4 MG (ODT) TAB ONE (00:44)
[2023-04-28 01:29] LABS: Specific Gravity < 1.005 (1.005-1.030); Urine Bacteria None Seen /HPF (<20); Urine Bilirubin NEGATIVE (Negative); Urine Blood Negative (Negative); Urine Clarity Clear (Clear); Urine Color Colorless (Yellow); Urine Glucose NEGATIVE (Negative); Urine Protein NEGATIVE (Negative); Urine RBC None Seen /HPF (None Seen); Urine Urobilinogen Normal (Normal); Urine WBC Clump Rare /HPF (None Seen)
--- NOTE | 2023-04-28 01:47 | ER ---
Nurse's Notes [facility] Name: Gabrielle Plata Age: 42 yrs Sex: Female : 1980 Arrival Date: 04/27/2023 Time: 21:18 Bed 4 Private MD: Diagnosis: Displacement of urinary (indwelling) catheter;Acute urethral pain, Hussein catheter complication, dislodged Hussein catheter Presentation: 04/27 21:52 Chief complaint: Patient states: Hussein catheter fell out,onset 2hours ago. Coronavirus pf1 screen: Vaccine status: Patient reports being unvaccinated. Client denies travel out of the [place] in the last 14 days. At this time, the client does not indicate any symptoms associated with coronavirus-19. Ebola Screen: Patient negative for fever greater than or equal to 101.5 degrees Fahrenheit, and additional compatible Ebola Virus Disease symptoms. Initial Sepsis Screen: Does the patient meet any 2 criteria? No. Patient's initial sepsis screen is negative. Does the patient have a suspected source of infection? No. Patient's initial sepsis screen is negative. Risk Assessment: Do you want to hurt yourself or someone else? Patient reports no desire to harm self or others. 21:52 Method Of Arrival: Ambulatory pf1 21:52 Acuity: CATHIE 4 pf1 04/28 01:56 Onset of symptoms was April 27, 2023. as6 Historical: - Allergies: 04/27 21:57 cefepime; pf1 21:57 Codeine; pf1 21:57 Demerol; pf1 21:57 Sulfa (Sulfonamide Antibiotics); pf1 21:57 Tramadol HCl; pf1 - PMHx: 21:57 Crohn's Disease; Gretta Parikh tears; MRSA; pf1 - PSHx: 21:57 breast augmentation; Cholecystectomy; tubal ligation; bladder surgery; abdominal pf1 surgery due to foreign object; urethra surgery; - Immunization history:: Adult Immunizations not up to date, Client reports having NOT received the Covid vaccine. Last tetanus immunization: < 5 years ago Flu vaccine is not up to date. - Social history:: Smoking status: Patient reports the use of cigarette tobacco products, denies chronic smoking, but will smoke occasionally, Patient uses alcohol, occasionally. Patient/guardian denies using street drugs. - Family history:: not pertinent. Screenin/28 00:48 [facility] ED Fall Risk Assessment (Adult) Score/Fall Risk Level 0 - 2 = Low Risk. Abuse as6 screen: Denies threats or abuse. Denies injuries from another. Nutritional screening: No deficits noted. Tuberculosis screening: No symptoms or risk factors identified. Assessment: 00:30 General: Appears in no apparent distress. Behavior is calm, cooperative. Pain: as6 Complains of pain in abdomen. Neuro: Level of Consciousness is awake, alert, obeys commands, Oriented to person, place, time, situation. Cardiovascular: Capillary refill < 3 seconds Patient's skin is warm and dry. Respiratory: Respiratory effort is even, unlabored, Respiratory pattern is regular, symmetrical. Derm: sarkis noted to abdomen from previous surgery. Vital Signs: 04/27 21:52 BP 127 / 91; Pulse 92; Resp 16; Temp 97.3; Pulse Ox 99% on R/A; Weight 57.15 kg; Height pf1 5 ft. 0 in. ; Pain 7/10; 04/28 00:30 BP 123 / 59; Pulse 74; Resp 18 S; Pulse Ox 100% on R/A; as6 01:57 BP 131 / 68; Pulse 81; Resp 18 S; Pulse Ox 99% on R/A; as6 04/27 21:52 Body Mass Index 24.61 (57.15 kg, 152.4 cm) pf1 04/27 21:52 Pain Scale: Adult pf1 ED Course: 04/27 21:20 Patient arrived in ED. ja2 21:42 Rene Pearson MD is Attending Physician. sp4 21:57 Triage completed. pf1 04/28 00:47 Arm band placed on. as6 00:47 Hussein cath inserted, using sterile technique, 18 Fr., by ED staff, balloon inflated, to as6 gravity drainage, returned clear yellow urine. Patient tolerated well. 00:48 Placed in gown. Bed in low position. Call light in reach. as6 01:55 Eric Padron, SITA is Primary Nurse. as6 01:56 No provider procedures requiring assistance completed. Patient did not have IV access as6 during this emergency room visit. Administered Medications: 00:35 Drug: [place] PO 10 mg-325 mg 1 tabs Route: PO; as6 01:58 Follow up: Response: No adverse reaction as6 00:35 Drug: Ondansetron PO 4 mg Route: PO; as6 01:58 Follow up: Response: No adverse reaction as6 00:35 Drug: Ibuprofen PO 400 mg Route: PO; as6 01:58 Follow up: Response: No adverse reaction as6 Medication: 00:48 VIS not applicable for this client. as6 Outcome: 01:46 Discharge ordered by . sp4 01:56 Discharged to home ambulatory. as6 01:56 Condition: stable 01:56 Discharge instructions given to patient, Instructed on discharge instructions, follow up and referral plans. Demonstrated understanding of instructions, follow-up care. 01:57 Patient left the ED. as6 Signatures: Carlita Davila2 Eric Padron RN RN as6 Sis Berry RN RN pf1 Rene Pearson MD MD sp4
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
[2023-04-28 02:36] VITALS: TEMP 97.3
[2023-04-28 02:40] VITALS: BP 131/68; O2SAT 99
== END 2023-04-28 01:57 | disposition home or self-care (01) ==
LOC: ER 21:18
DX: T83.028A Displacement of other urinary catheter, initial encounter (principal); N23 Unspecified renal colic
CPT/HCPCS: 51702; 81001; 99284; Q0162

== ENCOUNTER 2023-07-05 02:24 | Emergency (ER) | payer SELFPAY ==
--- OUTSIDE RECORDS SUMMARY | 2023-07-05 02:35 | XMS REPORT | Continuity of Care Document ---
:1980 Author Organization [facility] t Address [address] [facility] [address] [place] [address] Care Team Providers Name Role Phone KARINA ESPANA JR Primary Care Physician Unavailable YONAS FITZGERALD Attending Clinician Unavailable Lia BEASLEY, Yonas Arnold Attending Clinician Janee BEASLEY, Dyllan Attending Clinician Marvin BEASLEY, Artur Rincon Attending Clinician [phone] Arely BEASLEY, Rakan King Attending Clinician [phone] 1 Grazyna Love MD Attending Clinician [phone] Dominique Jones Attending Clinician GRAZYNA LOVE Attending Clinician Unavailable Martita Pop MD Attending Clinician Chance Pandya MD Attending Clinician Doctor Unassigned, [place] Attending Clinician Unavailable Ramez BUCKNER, Ashely Attending Clinician Unavailable Antonio Monroe MD Attending Clinician [phone] Mojgan SHAH Attending Clinician Unavailable Mojgan Pires Attending Clinician JOSÉ LUIS GONZALES Attending Clinician Unavailable Yonas Perea MD Attending Clinician Telma BEASELY, Mynor Oconnell Attending Clinician MYNOR HOLLIS Attending [...] Physician, No Primary or Family Admitting Clinician Unavaila ble DOMINIQUE JONES Admitting Clinician Unavailable RAKAN ZARATE Admitting Clinician Unavailable YONAS FITZGERALD Admitting Clinician Unavailable Yonas Fitzgerald MD Admitting Clinician Mojgan SHAH Admitting Clinician Unavailable GRAZYNA LOVE Admitting Clinician Unavailable Sanjay Lind MD Admitting Clinician SANJAY LIND Admitting Clinician Unavailable Payers Payer Name Policy Type Policy Number Effective Date Expiration Date Claire chaudhary [place] [id number] 2020 WOMEN 00:00:00 MATTHEW [id number] 2020 2020 00:00:00 00:00:00 AGENCY GENERIC VC [id number] 2020 2020 00:00:00 00:00:00 Problems Condition Condition [...] of neck of 00:00: g of this [place] fifth fifth 00 note Medical metacarpal metacarpal might be Branch bone, bone, different right right from the hand, hand, original. 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 HPV+ on 2019 pap smear, patient needs repeat pap smear in 2020. Cervical Cervical Disease Active Overview: Un gracy high risk high risk 08-02 Formattin i ty of human human 00:00: g of this [place] papillomav papillomav 00 note Me dical irus [...] Active Univers 5-07 ity of 00:00: [place] [facility] Chest pain Chest pain Disease Active U nivers 4-21 ity of 00:00: [place] [facility] Screening Screening Disease Active Uni vers examinatio examinatio 2-05 it y of n for STD n [place] STD [place] ([place] (sexually 00 [facility] transmitte transmitte Br anch d disease) d disease) Premature Premature Disease Active 2016-12 Uni vers labor labor 0-24 ity of 00:00: [place] [facility] 34 weeks 34 weeks Disease Active 2016-12 Unive rs gestation gestation 0-14 ity of of of 00:00: [place] 00 [facility] Disease Active 2016-12 Univers labor labor 0-14 ity of 00:00: [place] 00 [facility] Branch Crohn Crohn Disease Active Overview: Univer s disease disease 12-02 Formattin ity o f 00:00: g of this [place] 00 note Medical might be Branch different from the original. involving small and large intesting , biopsy confirmed . Gets colonosco py Q 6-12 months. 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 [place] es es note Medical might be Branch [...] 00:00: (THC) 00 CORTICOS Allergy Active Other 0 [facility] TEROIDS 5-20 (GLUCOCO 00:00: RTICOIDS 00 [...] Medical s Branch Ketorola Propensi Active Nausea 2022- Severe Univer s c ty to and/or 4-25 headache ity of adverse Vomiting 00:00: [place] reaction 00 Medical s Branch CEFEPIME DRUG Active Anaphylaxis 2022-0 Uni vers INGREDI 4-15 ity of 00:00: [place] 00 Medical Branch Cefepime Propensi Active Anaphylaxis 2022-0 U nivers ty to 4-15 ity of adverse 00:00: [place] reaction 00 Medical s Branch CODEINE Allergy Active High Sob 2020-12 [facility] 00:[facility] Medical 00 Center Sulfa Propensi Active 2020-[address] (Sulfona [...] adverse 00:00: Medical reaction 00 Center s CEFEPIME DRUG Active Med Anaphylaxis 2020-12 Uni vers INGREDI 2-16 ity of 00:00: [place] 00 Medical Branch meperidi DA Active MO 2020-0 [facility] ne HCl 3-18 [place] 00:00: [facility] Sulfa DA Active MO 2020-0 [facility] (Sulfona 3-18 [place] mide 00:00: Regiona Antibiot 00 l ics) Medical Center codeine DA Active MO 2020-0 [facility] 3-18 [place] 00:00: Region 00 [facility] meperidi DA Active MO vomiting 2020-0 [facility] ne HCl chest 3-18 [place] tightness 00:00: [facility] 00 [facility] Sulfa DA Active MO rash chest 2020-0 [facility] (Sulfona tightness 3-18 [place] 00:00: Regiona Antibiot 00 l ics) Medical Center codeine DA Active MO rash chest 2020-0 [facility] tightness 3-18 [place] 00:00: Region [facility] Marijuan Propensi Active Anaphylaxis 2018-0 U nivers [...] DA Active MO [facility] ne HCl 8-26 [place] 00:00: [facility] 00 l [facility] Sulfa DA Active MO [facility] (Sulfona 8-26 [place] mide 00:00: Regiona Antibiot 00 l ics) Medical Center codeine DA Active MO [facility] 8-26 [place] 00:00: [facility] 00 l [facility] Center meperidi DA Active MO vomiting [facility] ne HCl chest 8-26 [place] tightness 00:00: Regiona 00 l [facility] Center Sulfa DA Active MO rash chest [facility] (Sulfona tightness 8-26 [place] 00:00: Regiona Antibiot 00 l ics) Medical Center codeine DA Active MO rash chest [facility] tightness 8-26 [place] 00:00: Regiona 00 Medical Center Social History Social Habit Start Date Stop Date Quantity Comments Source History of tobacco Cigarette Smoker [facility] [place] [facility] Branch History SDOH [facility] History SDOH 2023-04-21 2023-04-[address] [facility] Transport Med 00:00:00 00:00:[address] History SDOH 2023-04-21 2023-04-[address] [facility] Housing Unable to 00:00:00 00:00:00 Medical Center Pay History [facility] 2023-04-21 2023-04-[address] [facility] Housing Places 00:00:00 00:00:00 Medical Ce nter Lived History [facility] 2023-04-21 2023-04-[address] [facility] Housing Homeless 00:00:00 00:00:00 Medical Center Last Year Exposure to 2023-04-10 2023-04-[address] [facility] SARS-CoV-2 (event) 00:00:00 23:57:00 Medica l Center Alcohol intake 2023-04-08 2023-04-08 Current drinker Unive rsity of 00:00:00 00:00:00 of alcohol [facility] (finding) Branch Tobacco use and 2023-03-25 2023-03-25 Smokeless tobacco Un iversity of exposure 00:00:00 00:00:00 non-user [facility] Branch Cigarettes smoked 2023-03-25 2023-03-25 Univers ity of current (pack per 00:00:00 00:00:00 [facility] ) - Reported Branch Tobacco Comment 2023-03-25 2023-03-25 Occasional Smoker Un iversity of 00:00:00 00:00:00 [place] [facility] History [facility] 2020-07-26 2020-07-26 2 University o f Alcohol Frequency 00:00:00 00:00:00 [facility] Branch History [facility] 2020-07-26 2020-07-26 2 University o f Alcohol Std Drinks 00:00:00 00:00:00 [place] [facility] History [facility] 2020-07-26 2020-07-26 99 University o f Alcohol Binge 00:00:00 00:00:00 [facility] al Branch Alcohol Comment 2018-01-03 2018-01-03 Social Drinker Unive rsity of 00:00:00 00:00:00 [facility] Sex Assigned At [address] [facility] kes 00:00:00 00:00:00 Medical Center Smoking Status Start Date Stop Date Source Smokes tobacco daily 2023-03-25 00:00:00 Univers ity of [facility] Current some day smoker 2020-06-12 00:00:00 [facility] Medical Branch Medications Ordered Filled Start Stop Current Ordering Indication Dosage Frequency Signature Comments Components Source Medication Medication Date Date Medication? Clinician (SIG) Name Name ibuprofen 2022-0 Yes [id number] 600mg Take 1 Univers 600 mg 6-30 tablet by ity of tablet 00:00: mouth 3 [place] 00 (three) Medical times Branch daily with meals as needed for Pain (scale 4-6) or Pain (scale 1-3). ibuprofen 2022-0 Yes [id number] 600mg Take 1 Univers 600 mg 6-30 tablet by ity of tablet 00:00: mouth 3 [place] 00 (three) Medical times Branch daily with meals as needed for Pain (scale 4-6) or Pain (scale 1-3). HYDROcodone 2022-0 Yes [id number] 1{tbl} Take 1 Un gracy -acetaminop 6-14 tablet by ity of hen (NORCO) 00:00: mouth [place] 5-325 mg 00 every 6 Medical tablet (six) Branch hours as needed for Pain (scale 7-10). Indication s: acute pain HYDROcodone 3-0 Yes [id number] 1{tbl} Take 1 Un gracy -acetaminop 6-14 tablet by ity of hen (NORCO) 00:00: mouth [place] 5-325 mg 00 every 6 Medical tablet (six) Branch hours as needed for Pain (scale 7-10). Indication s: acute pain HYDROcodone 3-0 Yes 4647 1{tbl} Take 1 Un gracy -acetaminop 6-14 tablet by ity of hen (NORCO) 00:00: mouth [place] 5-325 mg 00 every 6 Medical tablet (six) Branch hours as needed for Pain (scale 7-10). Indication s: acute pain HYDROcodone 2023-0 Yes 4647 1{tbl} Take 1 Un gracy -acetaminop 6-14 tablet by ity of hen (NORCO) 00:00: mouth [place] 5-325 mg 00 every 6 Medical tablet (six) Branch hours as needed for Pain (scale 7-10). Indication s: acute pain HYDROcodone 2023-0 Yes 4647 1{tbl} Take 1 Un gracy -acetaminop 6-14 tablet by ity of hen (NORCO) 00:00: mouth [place] 5-325 mg 00 every 6 Medical tablet (six) Branch hours as needed for Pain (scale 7-10). Indication s: acute pain HYDROcodone 2023-0 Yes 4647 1{tbl} Take 1 Un gracy -acetaminop 5-30 tablet by ity of hen (NORCO) 00:00: mouth [place] 5-325 mg 00 every 6 Medical tablet (six) Branch hours as needed for Pain (scale 7-10). Indication s: acute pain HYDROcodone 2023-0 Yes 4647 1{tbl} Take 1 Un gracy -acetaminop 5-30 tablet by ity of hen (NORCO) 00:00: mouth [place] 5-325 mg 00 every 6 Medical tablet (six) Branch hours as needed for Pain (scale 7-10). Indication s: acute pain HYDROcodone 2023-0 Yes 4647 1{tbl} Take 1 Un gracy -acetaminop 5-30 tablet by ity of hen (NORCO) 00:00: mouth [place] 5-325 mg 00 every 6 Medical tablet (six) Branch hours as needed for Pain (scale 7-10). Indication s: acute pain HYDROcodone 2023-0 Yes 4647 1{tbl} Take 1 Un gracy -acetaminop 5-30 tablet by ity of hen (NORCO) 00:00: mouth [place] 5-325 mg 00 every 6 Medical tablet (six) Branch hours as needed for Pain (scale 7-10). Indication s: acute pain HYDROcodone 2023-0 2023- No 4647 1{tbl} Take 1 U nivers -acetaminop 5-30 06-12 tablet by it y of hen ([employer]) 00:00: 00:00 [place] 5-325 mg 00 :00 every 6 Medical tablet (six) Branch hours as needed for Pain (scale 7-10). Indication s: acute pain clonazePAM 2023-0 Yes .5mg Q.5D Take 1 [facility] (KlonoPIN) 5-25 tablet [facility] 0.5 MG 15:44: (0.5 mg Medical tablet 02 total) by Center mouth in the morning and 1 tablet (0.5 mg total) before bedtime. Max Daily Amount: 1 mg. TiZANidine 2023-0 Yes 4mg Q.[id number] Take [address] [facility] (ZANAFLEX) 5-25 [id number] capsule (4 [facility] 4 MG 15:44: 3D mg total) Medical capsule 02 by mouth Center in the morning and 1 capsule (4 mg total) at noon and 1 capsule (4 mg total) in the evening. gabapentin 2023-0 Yes 300mg Q.[id number] Take [address] [facility] [address] (NEURONTIN) 5-25 [id number] capsule [facility] 300 MG 15:44: 3D (300 [...] Amount: 1 mg. TiZANidine 2023-0 Yes 4mg Q.[id number] Take [address] [facility] [address] (ZANAFLEX) 5-25 [id number] capsule (4 [facility] 4 MG 15:44: 3D mg total) Medical capsule 02 by mouth Center in the morning and 1 capsule (4 mg total) at noon and 1 capsule (4 mg total) in the evening. gabapentin 2023-0 Yes 300mg Q.[id number] Take [address] [facility] [address] (NEURONTIN) 5-25 [id number] capsule [facility] 300 MG 15:44: 3D (300 [...] Amount: 1 mg. TiZANidine 2023-0 Yes 4mg Q.[id number] Take [address] [facility] [address] (ZANAFLEX) 5-25 [id number] capsule (4 [facility] 4 MG 15:44: 3D mg total) Medical capsule 02 by mouth Center in the morning and 1 capsule (4 mg total) at noon and 1 capsule (4 mg total) in the evening. gabapentin 2023-0 Yes 300mg Q.20222544 Take [address] [facility] (NEURONTIN) 5-25 [id number] capsule [facility] 300 MG 15:44: 3D (300 [...] Amount: 1 mg. TiZANidine 2023-0 Yes 4mg Q.[id number] Take [address] [facility] [address] (ZANAFLEX) 5-25 [id number] capsule (4 [facility] 4 MG 15:44: 3D mg total) Medical capsule 02 by mouth Center in the morning and 1 capsule (4 mg total) at noon and 1 capsule (4 mg total) in the evening. gabapentin 2023-0 Yes 300mg Q.[id number] Take [address] [facility] [address] (NEURONTIN) 5-25 [id number] capsule [facility] 300 MG 15:44: 3D (300 [...] Amount: 1 mg. TiZANidine 2023-0 Yes 4mg Q.[id number] Take [address] [facility] [facility] (ZANAFLEX) 5-25 [id number] capsule (4 [facility] 4 MG 15:44: 3D mg total) Medical capsule 02 by mouth Center in the morning and 1 capsule (4 mg total) at noon and 1 capsule (4 mg total) in the evening. gabapentin 2023-0 Yes 300mg Q.[id number] Take [address] [facility] [address] (NEURONTIN) 5-25 [id number] capsule [facility] 300 MG 15:44: 3D (300 mg Medical capsule 02 total) by Center mouth in the morning and 1 capsule (300 mg total) at noon and 1 capsule (300 mg total) in the evening. omeprazole 3-0 Yes 20mg QD Take 1 [facility] (PriLOSEC) 5-25 capsule [facility] 20 MG 15:44: (20 mg Medical capsule 02 total) by Center mouth in the morning. ibuprofen 3-0 2023- No 600mg Take [address] [facility] (ADVIL,MOTR 5-25 05-24 tablet [facility] IN) 600 MG 15:44: 00:00 (600 mg Med ical tablet 02 :00 total) by Center mouth every 6 (six) hours as needed for Pain. cyclobenzap 2023-0 2023- No 10mg Take [address] [facility] rine 5-25 05-24 tablet (10 [facility] (FLEXERIL) 15:44: 00:00 mg total) M edical 10 MG 02 :00 by mouth Center tablet every 8 (eight) hours. diclofenac 2023-0 2023- No 75mg Q.5D Take [address] [facility] [...] (six) hours as needed for Nausea. ibuprofen 2023-0 2023- No 600mg Take [address] [facility] (ADVIL,MOTR 5-25 05-24 tablet [facility] IN) 600 MG 15:44: 00:00 (600 mg Med ical tablet 02 :00 total) by Center mouth every 6 (six) hours as needed for Pain. cyclobenzap 2023-0 2023- No 10mg Take [address] [facility] rine 5-25 05-24 tablet (10 [facility] (FLEXERIL) 15:44: 00:00 mg total) M edical 10 MG 02 :00 by mouth Center tablet every 8 (eight) hours. diclofenac 2023-0 2023- No 75mg Q.5D Take [address] [facility] [facility] [...] (six) hours as needed for Nausea. ibuprofen 2023-0 2023- No 600mg Take [address] [facility] (ADVIL,MOTR 5-25 05-24 tablet [facility] IN) 600 MG 15:44: 00:00 (600 mg Med ical tablet 02 :00 total) by Center mouth every 6 (six) hours as needed for Pain. cyclobenzap 2023-0 2023- No 10mg Take [address] [facility] rine 5-25 05-24 tablet (10 [facility] (FLEXERIL) 15:44: 00:00 mg total) M edical 10 MG 02 :00 by mouth Center tablet every 8 (eight) hours. diclofenac 2023-0 2023- No 75mg Q.5D Take [address] [facility] [facility] [...] (six) hours as needed for Nausea. ibuprofen 2023-0 2023- No 600mg Take [address] [facility] (ADVIL,MOTR 5-25 05-24 tablet [facility] IN) 600 MG 15:44: 00:00 (600 mg Med ical tablet 02 :00 total) by Center mouth every 6 (six) hours as needed for Pain. cyclobenzap 2023-0 2023- No 10mg Take [address] [facility] [address] rine 5-25 05-24 tablet (10 [facility] (FLEXERIL) 15:44: 00:00 mg total) M edical 10 MG 02 :00 by mouth Center tablet every 8 (eight) hours. diclofenac 2023-0 2023- No 75mg Q.5D Take [address] [facility] [...] (six) hours as needed for Nausea. ibuprofen 2023-0 2023- No 600mg Take [address] [facility] (ADVIL,MOTR 5-25 05-24 tablet [facility] IN) 600 MG 15:44: 00:00 (600 mg Med ical tablet 02 :00 total) by Center mouth every 6 (six) hours as needed for Pain. cyclobenzap 2023-0 2023- No 10mg Take [address] [facility] rine 5-25 05-24 tablet (10 [facility] (FLEXERIL) 15:44: 00:00 mg total) M edical 10 MG 02 :00 by mouth Center tablet every 8 (eight) hours. diclofenac 2022-0 2022- No 75mg Q.5D Take [address] [facility] (VOLTAREN) 04-25-24 tablet (75 [place] kes 75 MG EC 15:44: 00:00 mg total) Med ical tablet 02 :00 by mouth Center in the morning and 1 tablet (75 mg total) before bedtime. promethazin 2022-0 2022- No 12.5mg Take [address] e 04-25-24 tablet [facility] (PHENERGAN) 15:44: 00:00 (12.5 mg M edical 12.5 MG 02 :00 total) by Center tablet mouth every 6 (six) hours as needed for Nausea. busPIRone 2023-0 Yes 5mg Q.[id number] Take [address] [facility] (BUSPAR) 5 5-24 [id number] tablet (5 [facility] MG tablet 15:44: 3D mg total) Med ical 47 by mouth Center in the morning and 1 tablet (5 mg total) at noon and 1 tablet (5 mg total) in the evening. busPIRone 2023-0 Yes 5mg Q.[id number] Take [address] [facility] (BUSPAR) 5 5-24 [id number] tablet (5 [facility] MG tablet 15:44: 3D mg total) Med ical 47 by mouth Center in the morning and 1 tablet (5 mg total) at noon and 1 tablet (5 mg total) in the evening. busPIRone 2023-0 Yes 5mg Q.[id number] Take [address] [facility] [address] (BUSPAR) 5 5-24 [id number] tablet (5 [facility] MG tablet 15:44: 3D mg total) Med ical 47 by mouth Center in the morning and 1 tablet (5 mg total) at noon and 1 tablet (5 mg total) in the evening. busPIRone 2023-0 Yes 5mg Q.[id number] Take [address] [facility] [address] (BUSPAR) 5 5-24 [id number] tablet (5 [facility] MG tablet 15:44: 3D mg total) Med ical 47 by mouth Center in the morning and 1 tablet (5 mg total) at noon and 1 tablet (5 mg total) in the evening. busPIRone 2023-0 Yes 5mg Q.[id number] Take [address] [facility] (BUSPAR) 5 5-24 [id number] tablet (5 [facility] MG tablet 15:44: 3D [...] Amount: 4 tablets amoxicillin 2023-0 Yes 500mg Q.[id number] Take [address] [facility] (AMOXIL) 5-24 [id number] tablet [place] es 500 MG 00:00: 3D [...] (six) hours as needed for Nausea. HYDROcodone 2023-0 Yes 1{tbl} Take [address] -acetaminop 5-24 tablet by [place] es hen (NORCO 00:00: mouth Medica l 5-325) 00 every 6 Center 5-325 mg (six) per tablet hours as needed for Pain. Max Daily Amount: 4 tablets amoxicillin 2023-0 Yes 500mg Q.[id number] Take [address] [facility] (AMOXIL) 5-24 [id number] tablet [place] es 500 MG 00:00: 3D [...] (six) hours as needed for Nausea. HYDROcodone 2023-0 Yes 1{tbl} Take [address] -acetaminop 5-24 tablet by [place] es hen (NORCO 00:00: mouth Medica l 5-325) 00 every 6 Center 5-325 mg (six) per tablet hours as needed for Pain. Max Daily Amount: 4 tablets amoxicillin 2023-0 Yes 500mg Q.[id number] Take [address] [facility] (AMOXIL) 5-24 [id number] tablet [place] es 500 MG 00:00: 3D [...] (six) hours as needed for Nausea. HYDROcodone 2023-0 Yes 1{tbl} Take [address] -acetaminop 5-24 tablet by [place] es hen (NORCO 00:00: mouth Medica l 5-325) 00 every 6 Center 5-325 mg (six) per tablet hours as needed for Pain. Max Daily Amount: 4 tablets amoxicillin 2023-0 Yes 500mg Q.[id number] Take [address] [facility] [address] (AMOXIL) 5-24 [id number] tablet [place] es 500 MG 00:00: 3D [...] (six) hours as needed for Nausea. HYDROcodone 2023-0 Yes 1{tbl} Take [address] -acetaminop 5-24 tablet by [place] es hen (NORCO 00:00: mouth Medica l 5-325) 00 every 6 Center 5-325 mg (six) per tablet hours as needed for Pain. Max Daily Amount: 4 tablets amoxicillin 2023-0 Yes 500mg Q.02019162 Take [address] [facility] [address] (AMOXIL) 5-24 [id number] tablet [place] es 500 MG 00:00: 3D [...] hours as needed for Nausea. levoFLOXaci 2023-0 2023- No 500mg QD Take [address] [facility] 5-24 05-29 tablet [facility] (LEVAQUIN) 00:00: 23:59 (500 mg Med ical 500 MG 00 :00 total) by Center tablet mouth in the morning for 5 days. levoFLOXaci 2023-0 2023- Yes 500mg QD Take [address] [facility] 04-24 tablet [facility] (LEVAQUIN) 00:00: 23:59 (500 mg Med ical 500 MG 00 :00 total) by Center tablet mouth in the morning for 5 days. levoFLOXaci 2022-0 2023- Yes 500mg QD Take [address] [facility] 04-24 tablet [facility] (LEVAQUIN) 00:00: 23:59 (500 mg Med ical 500 MG 00 :00 total) by Center tablet mouth in the morning for 5 days. levoFLOXaci 2022-0 2023- No 500mg QD Take [address] [facility] 04-24 tablet [facility] (LEVAQUIN) 00:00: 23:59 (500 mg Med ical 500 MG 00 :00 total) by Center tablet mouth in the morning for 5 days. levoFLOXaci 2022-0 2023- No 500mg QD Take [address] [facility] 04-24 tablet [facility] (LEVAQUIN) 00:00: 23:59 (500 mg Med ical 500 MG 00 :00 total) by Center tablet mouth in the morning for 5 days. ibuprofen 2022-2022- Yes [id number] 600mg Take 1 [facility] 600 mg 5- 08-07 tablet by ity of tablet 00:00: 04:59 mouth 3 [place] 00 :00 (three) Medical times Branch daily with meals as needed for Pain (scale 4-6) or Pain (scale 1-3) for up to 90 days. ibuprofen 2022-0 2022- Yes [id number] 600mg Take 1 Univers 600 mg 5-08 08-07 tablet by ity of tablet 00:00: 04:59 mouth 3 [place] 00 :00 (three) Medical times Branch daily with meals as needed for Pain (scale 4-6) or Pain (scale 1-3) for up to 90 days. ibuprofen 2022-0 2022- Yes [id number] 600mg Take 1 Univers 600 mg 5-08 08-07 tablet by ity of tablet 00:00: 04:59 mouth 3 [place] 00 :00 (three) Medical times Branch daily with meals as needed for Pain (scale 4-6) or Pain (scale 1-3) for up to 90 days. ibuprofen 2022-0 2022- Yes [id number] 600mg Take 1 Univers 600 mg 5-08 08-07 tablet by ity of tablet 00:00: 04:59 mouth 3 [place] 00 :00 (three) Medical times Branch daily with meals as needed for Pain (scale 4-6) or Pain (scale 1-3) for up to 90 days. ibuprofen 2022-0 2022- Yes [id number] 600mg Take 1 Univers 600 mg 5-08 08-07 tablet by ity of tablet 00:00: 04:59 mouth 3 [place] 00 :00 (three) Medical times Branch daily with meals as needed for Pain (scale 4-6) or Pain (scale 1-3) for up to 90 days. ibuprofen 2022-2022- Yes [id number] 600mg Take 1 Univers 600 mg 5-08 08-07 tablet by ity of tablet 00:00: 04:59 mouth 3 00 :00 (three) Medical times Branch daily with meals as needed for Pain (scale 4-6) or Pain (scale 1-3) for up to 90 days. ibuprofen 2022-2022- Yes [id number] 600mg Take 1 Univers 600 mg 5-08 08-07 tablet by ity of tablet 00:00: 04:59 mouth 3 00 :00 (three) Medical times Branch daily with meals as needed for Pain (scale 4-6) or Pain (scale 1-3) for up to 90 days. ibuprofen 2022- Yes [id number] 600mg Take 1 [facility] 600 mg 5-08 08-07 tablet by ity of tablet 00:00: 04:59 mouth 3 00 :00 (three) Medical times Branch daily with meals as needed for Pain (scale 4-6) or Pain (scale 1-3) for up to 90 days. ibuprofen 2022-0 2022- Yes [id number] 600mg Take 1 Univers 600 mg 5-08 08-07 tablet by ity of tablet 00:00: 04:59 mouth 3 00 :00 (three) Medical times Branch daily with meals as needed for Pain (scale 4-6) or Pain (scale 1-3) for up to 90 days. ibuprofen 2022-2022- Yes [id number] 600mg Take 1 [facility] 600 mg 5-08 08-07 tablet by ity of tablet 00:00: 04:59 mouth 3 [place] 00 :00 (three) Medical times Branch daily with meals as needed for Pain (scale 4-6) or Pain (scale 1-3) for up to 90 days. ibuprofen 2022- Yes [id number] 600mg Take 1 Univers 600 mg 5-08 08-07 tablet by ity of tablet 00:00: 04:59 mouth 3 [place] 00 :00 (three) Medical times Branch daily with meals as needed for Pain (scale 4-6) or Pain (scale 1-3) for up to 90 days. ibuprofen 2022- Yes [id number] 600mg Take 1 Univers 600 mg 5-08 08-07 tablet by ity of tablet 00:00: 04:59 mouth 3 [place] 00 :00 (three) Medical times Branch daily with meals as needed for Pain (scale 4-6) or Pain (scale 1-3) for up to 90 days. ibuprofen 2022- Yes [id number] 600mg Take 1 Univers 600 mg 5-08 08-07 tablet by ity of tablet 00:00: 04:59 mouth 3 [place] 00 :00 (three) Medical times Branch daily with meals as needed for Pain (scale 4-6) or Pain (scale 1-3) for up to 90 days. ibuprofen 2022- No [id number] 600mg Take 1 Univers 600 mg 5-08 06-27 tablet by ity of tablet 00:00: 00:00 mouth 3 [place] 00 :00 (three) Medical times Branch daily [...] 05-16 tablet by it y of hen ([employer]) 00:00: 04:59 mouth [place] 5-325 mg 00 :00 every 6 Medical tablet (six) Branch hours as needed for Pain (scale 7-10) for up to 7 days. Indication s: acute pain HYDROcodone 2022-0 2022- Yes [id number] 1{tbl} Take 1 U nivers -acetaminop 5-08 05-16 tablet by it y of hen ([employer]) 00:00: 04:59 mouth [place] 5-325 mg 00 :00 every 6 Medical tablet (six) Branch hours as needed for Pain (scale 7-10) for up to 7 days. Indication s: acute pain HYDROcodone 2022-0 2022- Yes 4647 1{tbl} Take 1 U nivers -acetaminop 5-08 05-16 tablet by it y of hen ([employer]) 00:00: 04:59 mouth [place] 5-325 mg [...] Until Discontinu ed, Routine, PACU lactated 2022-0 202- No 1000mL at 73 Un[facility] rs ringers [...] :36 PROCEDURE, Medi dorothy Starting Branch on 03/27/23 at 1143, Until Sat03/27/23 at 1253, Routine, [...] Starting Branch on Sat03/27/23 at 1115, Until 03/27/23 at 1253, Routine, Intra-op lidocaine 2022- No [...] Starting Branch on Sat03/27/23 at 1115, Until 03/27/23 at 1253, Routine, [...] No 1.5mg 1.5 mg, U nivers transdermal 4-26 04-26 Topical, ity of (TRANSDERM- 14:23: 17:52 Administer [place] SCOP) patch 26 :58 over 72 Medic al 1.5 mg Hours, Branch Q72H, First dose on Sat03/27/23 at 0930, Until Discontinu ed, Routine, DSU Pre-op scopolamine No 1.5mg 1.5 mg, U nivers transdermal 03-27 Topical, ity of (TRANSDERM- 14:23: 17:52 Administer [place] SCOP) patch 26 :58 over 72 Medic al 1.5 mg Hours, Branch Q72H, First dose on Sat03/27/23 at 0930, Until Discontinu ed, Routine, DSU Pre-op HYDROcodone 2022- No 4647 1{tbl} Take 1 U nivers -acetaminop 4-26 05-04 tablet by it y of hen 5-325 00:00: 04:59 mouth [place] mg tablet 00 :00 every 6 Medical (six) Branch hours as needed for Pain (scale 4-6) or Pain (scale 7-10) for up to 7 days. Indication s: acute pain HYDROcodone No 4647 1{tbl} Take 1 U nivers -acetaminop 4-26 05-04 tablet by it y of hen 5-325 00:00: 04:59 mouth [place] mg tablet 00 :00 every 6 Medical (six) Branch hours as needed for Pain (scale 4-6) or Pain (scale 7-10) for up to 7 days. Indication s: acute pain HYDROcodone No 4647 1{tbl} Take 1 U nivers -acetaminop 4-24 05-02 tablet by it y of hen ([facility]CO) 00:00: 04:59 mouth 2 [place] 5-325 mg 00 :00 (two) Medical tablet times Branch daily as needed for Pain (scale 7-10) for up to 7 days. Indication s: acute pain HYDROcodone No 4647 1{tbl} Take 1 U nivers -acetaminop 4-24 05-02 tablet by it y of hen ([facility]CO) 00:00: 04:59 mouth 2 [place] 5-325 mg 00 :00 (two) Medical tablet times Branch daily as needed for Pain (scale 7-10) for up to 7 days. Indication s: acute pain HYDROcodone 2022-0 2022- No 4647 1{tbl} Take 1 U nivers -acetaminop 4-24 05-02 tablet by it y of hen ([employer]) 00:00: 04:59 mouth 2 [place] 5-325 mg 00 :00 (two) Medical tablet times Branch daily as needed for Pain (scale 7-10) for up to 7 days. Indication s: acute pain HYDROcodone 2022-0 2022- No 4647 1{tbl} Take 1 U nivers -acetaminop 4-24 05-02 tablet by it y of hen ([employer]) 00:00: 04:59 mouth 2 [place] 5-325 mg 00 :00 (two) Medical tablet times Branch daily as needed for Pain (scale 7-10) for up to 7 days. Indication s: acute pain HYDROcodone 2022- No 4647 1{tbl} Take 1 U nivers -acetaminop 4-24 05-02 tablet by it y of hen ([employer]) 00:00: 04:59 mouth 2 [place] 5-325 mg 00 :00 (two) Medical tablet times Branch daily as needed for Pain (scale 7-10) for up to 7 days. Indication s: acute pain HYDROcodone 2022- No 4647 1{tbl} Take 1 U nivers -acetaminop 4-24 05-02 tablet by it y of hen ([employer]) 00:00: 04:59 mouth 2 [place] 5-325 mg 00 :00 (two) Medical tablet times Branch daily as needed for Pain (scale 7-10) for up to 7 days. Indication s: acute pain HYDROcodone 2022-0 2022- No 4647 1{tbl} Take 1 U nivers -acetaminop 4-24 05-02 tablet by it y of hen ([employer]) 00:00: 04:59 mouth 2 [place] 5-325 mg 00 :00 (two) Medical tablet times Branch daily as needed for Pain (scale 7-10) for up to 7 days. Indication s: acute pain HYDROcodone 2022-0 2022- No 4647 1{tbl} Take 1 U nivers -acetaminop 4-24 05-02 tablet by it y of hen ([facility]CO) 00:00: 04:59 mouth 2 [place] 5-325 mg 00 :00 (two) Medical tablet times Branch daily as needed for Pain (scale 7-10) for up to 7 days. Indication s: acute pain HYDROcodone 2022-0 2022- No 4647 1{tbl} Take 1 U nivers -acetaminop 4-24 05-02 tablet by it y of hen ([facility]CO) 00:00: 04:59 mouth 2 [place] 5-325 mg 00 :00 (two) Medical tablet times Branch daily as needed for Pain (scale 7-10) for up to 7 days. Indication s: acute pain HYDROcodone 2022-0 2022- No 4647 1{tbl} Take 1 U nivers -acetaminop 4-24 05-02 tablet by it y of hen ([facility]) 00:00: 04:59 mouth 2 [place] 5-325 mg 00 :00 (two) Medical tablet times Branch daily as needed for Pain (scale 7-10) for up to 7 days. Indication s: acute pain HYDROcodone 2022-0 2022- No 4647 1{tbl} Take 1 U nivers -acetaminop 4-24 05-02 tablet by it y of hen ([facility]) 00:00: 04:59 mouth 2 [place] 5-325 mg 00 :00 (two) Medical tablet times Branch daily as needed for Pain (scale 7-10) for up to 7 days. Indication s: acute pain HYDROcodone 2022-0 2022- No 4647 1{tbl} Take 1 U nivers -acetaminop 4-24 05-02 tablet by it y of hen ([facility]) 00:00: 04:59 mouth 2 [place] 5-325 mg 00 :00 (two) Medical tablet times Branch daily as needed for Pain (scale 7-10) for up to 7 days. Indication s: acute pain HYDROcodone 3-0 2022- No 4647 1{tbl} Take 1 U nivers -acetaminop 4-24 05-02 tablet by it y of hen ([employer]) 00:00: 04:59 mouth 2 [place] 5-325 [...] 2022- No 1{tbl} 1 tablet, [facility] -acetaminop 03-1615 Oral, ity of hen ([facility]CO 16:15: 15:34 [...] 03/16/23 at 1015, MATTHEW tiZANidine 2022-0 Yes [id number] 4mg Take 1 [facility] 4 mg tablet 4-15 tablet by ity of 00:00: mouth [place] [address] every 6 Medical (six) Branch hours as needed for Pain (scale 4-6) for up to 20 doses. diclofenac 2022-0 Yes [id number] 50mg Take 1 [facility] 50 mg 4-15 tablet by ity of tablet 00:00: mouth [place] 00 the Medical morning Branch and 1 tablet in the evening. tiZANidine 2022-0 Yes [id number] 4mg Take 1 [facility] 4 mg tablet 4-15 tablet by ity of 00:00: mouth [place] [address] every 6 Medical (six) Branch hours as needed for Pain (scale 4-6) for up to 20 doses. diclofenac 2023-0 Yes [id number] 50mg Take 1 [facility] 50 mg 4-15 tablet by ity of tablet 00:00: mouth in [place] 00 the Medical morning Branch and 1 tablet in the evening. tiZANidine 2023-0 Yes [id number] 4mg Take 1 [facility] 4 mg tablet 4-15 tablet by ity of 00:00: mouth [place] 00 every 6 Medical (six) Branch hours as needed for Pain (scale 4-6) for up to 20 doses. diclofenac 2023-0 Yes [id number] 50mg Take 1 [facility] 50 mg 4-15 tablet by ity of tablet 00:00: mouth in [place] 00 the Medical morning Branch and 1 tablet in the evening. tiZANidine 2023-0 Yes [id number] 4mg Take 1 [facility] 4 mg tablet 4-15 tablet by ity of 00:00: mouth [place] 00 every 6 Medical (six) Branch hours as needed for Pain (scale 4-6) for up to 20 doses. diclofenac 2023-0 Yes [id number] 50mg Take 1 [facility] 50 mg 4-15 tablet by ity of tablet 00:00: mouth in [place] 00 the Medical morning Branch and 1 tablet in the evening. tiZANidine 2023-0 Yes [id number] 4mg Take 1 [facility] 4 mg tablet 4-15 tablet by ity of 00:00: mouth [place] 00 every 6 Medical (six) Branch hours as needed for Pain (scale 4-6) for up to 20 doses. diclofenac 2023-0 Yes [id number] 50mg Take 1 [facility] 50 mg 4-15 tablet by ity of tablet 00:00: mouth in [place] 00 the Medical morning Branch and 1 tablet in the evening. tiZANidine 2023-0 Yes [id number] 4mg Take 1 [facility] 4 mg tablet 4-15 tablet by ity of 00:00: mouth [place] 00 every 6 Medical (six) Branch hours as needed for Pain (scale 4-6) for up to 20 doses. diclofenac 2023-0 Yes [id number] 50mg Take 1 [facility] 50 mg 4-15 tablet by ity of tablet 00:00: mouth in [place] 00 the Medical morning Branch and 1 tablet in the evening. tiZANidine 2023-0 Yes [id number] 4mg Take 1 [facility] 4 mg tablet 4-15 tablet by ity of 00:00: mouth [place] 00 every 6 Medical (six) Branch hours as needed for Pain (scale 4-6) for up to 20 doses. diclofenac 2023-0 Yes [id number] 50mg Take 1 [facility] 50 mg 4-15 tablet by ity of tablet 00:00: mouth in [place] 00 the Medical morning Branch and 1 tablet in the evening. tiZANidine 2023-0 Yes [id number] 4mg Take 1 [facility] 4 mg tablet 4-15 tablet by ity of 00:00: mouth [place] 00 every 6 Medical (six) Branch hours as needed for Pain (scale 4-6) for up to 20 doses. diclofenac 2023-0 Yes [id number] 50mg Take 1 [facility] 50 mg 4-15 tablet by ity of tablet 00:00: mouth in [place] 00 the Medical morning Branch and 1 tablet in the evening. tiZANidine 2023-0 Yes [id number] 4mg Take 1 [facility] 4 mg tablet 4-15 tablet by ity of 00:00: mouth [place] 00 every 6 Medical (six) Branch hours as needed for Pain (scale 4-6) for up to 20 doses. diclofenac 2023-0 Yes [id number] 50mg Take 1 [facility] 50 mg 4-15 tablet by ity of tablet 00:00: mouth in [place] 00 the Medical morning Branch and 1 tablet in the evening. tiZANidine 2023-0 Yes [id number] 4mg Take 1 [facility] 4 mg tablet 4-15 tablet by ity of 00:00: mouth [place] 00 every 6 Medical (six) Branch hours as needed for Pain (scale 4-6) for up to 20 doses. diclofenac 2023-0 Yes [id number] 50mg Take 1 [facility] 50 mg 4-15 tablet by ity of tablet 00:00: mouth in [place] 00 the Medical morning Branch and 1 tablet in the evening. tiZANidine 2023-0 Yes [id number] 4mg Take 1 [facility] 4 mg tablet 4-15 tablet by ity of 00:00: mouth [place] 00 every 6 Medical (six) Branch hours as needed for Pain (scale 4-6) for up to 20 doses. tiZANidine 2023-0 Yes [id number] 4mg Take 1 [facility] 4 mg tablet 4-15 tablet by ity of 00:00: mouth [place] 00 every 6 Medical (six) Branch hours as needed for Pain (scale 4-6) for up to 20 doses. tiZANidine 3-0 Yes [id number] 4mg Take 1 [facility] 4 mg tablet 4-15 tablet by ity of 00:00: mouth [place] 00 every 6 Medical (six) Branch hours as needed for Pain (scale 4-6) for up to 20 doses. tiZANidine 2022-0 Yes [id number] 4mg Take 1 [facility] 4 mg tablet 4-15 tablet by ity of 00:00: mouth [place] 00 every 6 Medical (six) Branch hours as needed for Pain (scale 4-6) for up to 20 doses. tiZANidine 2022-0 Yes [id number] 4mg Take 1 [facility] 4 mg tablet 4-15 tablet by ity of 00:00: mouth [place] 00 every 6 Medical (six) Branch hours as needed for Pain (scale 4-6) for up to 20 doses. tiZANidine 2022-0 Yes [id number] 4mg Take 1 [facility] 4 mg tablet 4-15 tablet by ity of 00:00: mouth [place] 00 every 6 Medical (six) Branch hours as needed for Pain (scale 4-6) for up to 20 doses. tiZANidine 2022-0 Yes [id number] 4mg Take 1 [facility] 4 mg tablet 4-15 tablet by ity of 00:00: mouth [place] 00 every 6 Medical (six) Branch hours as needed for Pain (scale 4-6) for up to 20 doses. tiZANidine 2022-0 Yes [id number] 4mg Take 1 [facility] 4 mg tablet 4-15 tablet by ity of 00:00: mouth [place] 00 every 6 Medical (six) Branch hours as needed for Pain (scale 4-6) for up to 20 doses. tiZANidine 3-0 Yes [id number] 4mg Take 1 [facility] 4 mg tablet 4-15 tablet by ity of 00:00: mouth [place] 00 every 6 Medical (six) Branch hours as needed for Pain (scale 4-6) for up to 20 doses. tiZANidine 3-0 Yes [id number] 4mg Take 1 [facility] 4 mg tablet 4-15 tablet by ity of 00:00: mouth [place] 00 every 6 Medical (six) Branch hours as needed for Pain (scale 4-6) for up to 20 doses. tiZANidine 3-0 Yes [id number] 4mg Take 1 [facility] 4 mg tablet 4-15 tablet by ity of 00:00: mouth [place] 00 every 6 Medical (six) Branch hours as needed for Pain (scale 4-6) for up to 20 doses. tiZANidine 3-0 Yes [id number] 4mg Take 1 [facility] 4 mg tablet 4-15 tablet by ity of 00:00: mouth [place] 00 every 6 Medical (six) Branch hours as needed for Pain (scale 4-6) for up to 20 doses. tiZANidine 2022-0 Yes [id number] 4mg Take 1 [facility] 4 mg tablet 4-15 tablet by ity of 00:00: mouth [place] 00 every 6 Medical (six) Branch hours as needed for Pain (scale 4-6) for up to 20 doses. tiZANidine 2022-0 Yes [id number] 4mg Take 1 [facility] 4 mg tablet 4-15 tablet by ity of 00:00: mouth [place] 00 every 6 Medical (six) Branch hours as needed for Pain (scale 4-6) for up to 20 doses. tiZANidine 2022-0 Yes [id number] 4mg Take 1 [facility] 4 mg tablet 4-15 tablet by ity of 00:00: mouth [place] 00 every 6 Medical (six) Branch hours as needed for Pain (scale 4-6) for up to 20 doses. tiZANidine 2022-0 Yes [id number] 4mg Take 1 [facility] 4 mg tablet 4-15 tablet by ity of 00:00: mouth [place] 00 every 6 Medical (six) Branch hours as needed for Pain (scale 4-6) for up to 20 doses. tiZANidine 3-0 Yes [id number] 4mg Take 1 [facility] 4 mg tablet 4-15 tablet by ity of 00:00: mouth [place] 00 every 6 Medical (six) Branch hours as needed for Pain (scale 4-6) for up to 20 doses. tiZANidine 3-0 Yes [id number] 4mg Take 1 [facility] 4 mg tablet 4-15 tablet by ity of 00:00: mouth [place] 00 every 6 Medical (six) Branch hours as needed for Pain (scale 4-6) for up to 20 doses. tiZANidine 3-0 Yes [id number] 4mg Take 1 [facility] 4 mg tablet 4-15 tablet by ity of 00:00: mouth [place] 00 every 6 Medical (six) Branch hours as needed for Pain (scale 4-6) for up to 20 doses. tiZANidine 2023-0 Yes [id number] 4mg Take 1 [facility] 4 mg tablet 4-15 tablet by ity of 00:00: mouth [place] 00 every 6 Medical (six) Branch hours as needed for Pain (scale 4-6) for up to 20 doses. tiZANidine 2023-0 Yes [id number] 4mg Take 1 [facility] 4 mg tablet 4-15 tablet by ity of 00:00: mouth [place] 00 every 6 Medical (six) Branch hours as needed for Pain (scale 4-6) for up to 20 doses. diclofenac 3-0 2023- No [id number] 50mg Take 1 [facility] 50 mg 4-15 04-25 tablet by ity of tablet 00:00: 00:00 mouth in [place] 00 :00 the Medical morning Branch and 1 tablet in the evening. diclofenac 3-0 2023- No [id number] 50mg Take 1 [facility] 50 mg 4-15 04-25 tablet by ity of tablet 00:00: 00:00 mouth in [place] 00 :00 the Medical morning Branch and 1 tablet in the evening. diclofenac 3-0 3- No [id number] 50mg Take 1 [facility] 50 mg 4-15 04-25 tablet by ity of tablet 00:00: 00:00 mouth in [place] 00 :00 the Medical morning Branch and 1 tablet in the evening. gabapentin 2023-0 Yes TAKE ONE [facility] vers 300 mg 4-05 (1) it[facility] of capsule 00:00[place] [facility] EVERY Branch EIGHT HOURS. gabapentin 2023-0 Yes [...] 00:00: CAP[place](S[place] BY MOUTH [facility] EVERY Branch EIGHT HOURS. gabapentin 2023-0 Yes [...] capsule 00:00: [place] 00 BY [facility] EIGHT HOURS. gabapentin 2023-0 Yes TAKE ONE Uni vers 300 mg 4-05 (1) ity of capsule 00:00: CAP[place]LE(S[place] 00 BY [facility] EVERY [place] EIGHT HOURS. gabapentin 2023-0 Yes TAKE ONE [facility] vers 300 mg 4-05 (1) ity of capsule 00:00: CAP[place]LE(S[place] 00 BY [facility] EVERY [facility] EIGHT HOURS. gabapentin 2023-0 Yes TAKE ONE [facility] vers 300 mg 4-05 (1) ity of capsule 00:00: CAP[place]LE(S[place] 00 [place] [facility] EIGHT HOURS. diclofenac 2023-0 Yes 75mg Take 1 Unive rs 75 mg EC 4-02 tablet by ity of tablet 00:00: mouth in [place] 00 the Medical morning Branch and 1 tablet in the evening. diclofenac 2023-0 2023- No 75mg Take 1 Univ ers 75 mg EC 4- 04-26 tablet by ity o f tablet 00:00: 00:00 mouth in [place] 00 :00 the Medical morning Branch and 1 tablet in the evening. diclofenac 2023-0 2023- No 75mg Take 1 Univ ers 75 mg EC 4- 04-26 tablet by ity o f tablet 00:00: 00:00 mouth in [place] 00 :00 the Medical morning Branch and 1 tablet in the evening. diclofenac 2023-0 2023- No 75mg Take 1 Univ ers 75 mg EC 4- 04-26 tablet by ity o f tablet 00:00: 00:00 mouth in [place] 00 :00 the Medical morning Branch and 1 tablet in the evening. clonazePAM 2023-0 Yes .5mg Take 1 Unive rs 0.5 mg 3-29 tablet by ity of tablet 00:00: mouth in [place] 00 the Medical morning Branch and 1 tablet in the evening. clonazePAM 2023-0 Yes .5mg Take 1 Unive rs 0.5 mg 3-29 tablet by ity of tablet 00:00: mouth in [place] 00 the Medical morning Branch and 1 tablet in the evening. clonazePAM 2023-0 Yes .5mg Take 1 Unive rs 0.5 mg 3-29 tablet by ity of tablet 00:00: mouth in [place] [address] the Medical morning Branch and 1 tablet in the evening. clonazePAM 2023-0 Yes .5mg Take 1 Unive rs 0.5 mg 3-29 tablet by ity of tablet 00:00: mouth in [place] [address] the Medical morning Branch and 1 tablet in the evening. clonazePAM 2023-0 Yes .5mg Take 1 Unive rs 0.5 mg 3-29 tablet by ity of tablet 00:00: mouth in [place] [address] the Medical morning Branch and 1 tablet in the evening. clonazePAM 2023-0 Yes .5mg Take 1 Unive rs 0.5 mg 3-29 tablet by ity of tablet 00:00: mouth in [place] [address] the Medical morning Branch and 1 tablet in the evening. clonazePAM 2023-0 Yes .5mg Take 1 Unive rs 0.5 mg 3-29 tablet by ity of tablet 00:00: mouth in [place] [address] the Medical morning Branch and 1 tablet in the evening. clonazePAM 2023-0 Yes .5mg Take 1 Unive rs 0.5 mg 3-29 tablet by ity of tablet 00:00: mouth in [place] [address] the Medical morning Branch and 1 tablet in the evening. clonazePAM 2023-0 Yes .5mg Take 1 Unive rs 0.5 mg 3-29 tablet by ity of tablet 00:00: mouth in [place] [address] the Medical morning [facility] and 1 tablet in the evening. clonazePAM 2023-0 Yes .5mg Take 1 Unive rs 0.5 mg 3-29 tablet by ity of tablet 00:00: mouth in [place] [address] the Medical morning [facility] and 1 tablet in the evening. clonazePAM 2023-0 Yes .5mg Take 1 Unive rs 0.5 mg 3-29 tablet by ity of tablet 00:00: mouth in [place] [address] the Medical morning Branch and 1 tablet in the evening. clonazePAM 2023-0 Yes .5mg Take 1 Unive rs 0.5 mg 3-29 tablet by ity of tablet 00:00: mouth in [place] [address] the Medical morning Branch and 1 tablet in the evening. clonazePAM 2023-0 Yes .5mg Take 1 Unive rs 0.5 mg 3-29 tablet by ity of tablet 00:00: mouth in [place] [address] the Medical morning Branch and 1 tablet in the evening. clonazePAM 2023-0 Yes .5mg Take 1 Unive rs 0.5 mg 3-29 tablet by ity of tablet 00:00: mouth in [place] [address] the Medical morning [facility] and 1 tablet in the evening. clonazePAM 2023-0 Yes .5mg Take 1 Unive rs 0.5 mg 3-29 tablet by ity of tablet 00:00: mouth in [place] [address] the Medical morning [facility] and 1 tablet in the evening. clonazePAM 2023-0 Yes .5mg Take 1 Unive rs 0.5 mg 3-29 tablet by ity of tablet 00:00: mouth in [place] [address] the Medical morning [facility] and 1 tablet in the evening. clonazePAM 2023-0 Yes .5mg Take 1 Unive rs 0.5 mg 3-29 tablet by ity of tablet 00:00: mouth in [place] [address] the Medical morning [facility] and 1 tablet in the evening. clonazePAM 2023-0 Yes .5mg Take 1 Unive rs 0.5 mg 3-29 tablet by ity of tablet 00:00: mouth in [place] [address] the [facility] morning [facility]dom and 1 tablet in the evening. clonazePAM 2023-0 Yes .5mg Take 1 Unive rs 0.5 mg 3-29 tablet by ity of tablet 00:00: mouth in [place] [address] the [facility] morning [facility] and 1 tablet in the evening. clonazePAM 2023-0 Yes .5mg Take 1 Unive rs 0.5 mg 3-29 tablet by ity of tablet 00:00: mouth in [place] [address] the [facility] morning [facility] and 1 tablet in the evening. busPIRone 2023-0 Yes 10mg Take 1 Univer s 10 mg 3-16 tablet by ity of tablet 00:00: mouth in [place] [address] the [facility] morning [facility] and 1 tablet in the evening. proMETHazin [...] of tablet 00:00: mouth in [place] [address] the Medical morning [facility] and 1 tablet in the evening. proMETHazin [...] by ity of tablet 00:00: mouth in [place] the Medical morning Branch and 1 tablet in the evening. proMETHazin 2023-0 Yes TAKE ONE Un gracy e 12.5 mg 3-16 (1) ity of tablet 00:00: TABLET(S) [place] BY MOUTH Medical EVERY Branch EIGHT HOURS NEEDED. diphenoxyla 2023-0 Yes TAKE ONE Un gracy te-atropine 3-16 (1) ity of 2.5-0.025 00:00: TABLET(S) [place] mg tablet 00 BY MOUTH Medica l THREE Branch TIMES A DAY NEEDED. busPIRone 2023-0 Yes 10mg Take 1 Univer s 10 mg 3-16 tablet by ity of tablet 00:00: mouth in [place] the Medical morning Branch and 1 tablet in the evening. proMETHazin 2023-0 Yes TAKE ONE Un gracy e 12.5 mg 3-16 (1) ity of tablet 00:00: TABLET(S) BY MOUTH Medical EVERY Branch EIGHT HOURS NEEDED. diphenoxyla 2023-0 Yes TAKE ONE Un gracy te-atropine 3-16 (1) ity of 2.5-0.025 00:00: TABLET(S) [place] mg tablet 00 BY MOUTH Medica l THREE Branch TIMES A DAY NEEDED. busPIRone 2023-0 Yes 10mg Take 1 Univer s 10 mg 3-16 tablet by ity of tablet 00:00: mouth in [place] the Medical morning Branch and 1 tablet in the evening. proMETHazin 2023-0 Yes TAKE ONE Un gracy e 12.5 mg 3-16 (1) ity of tablet 00:00: TABLET(S) BY MOUTH Medical EVERY Branch EIGHT HOURS NEEDED. diphenoxyla 2023-0 Yes TAKE ONE Un gracy te-atropine 3-16 (1) ity of 2.5-0.025 00:00: TABLET(S) [place] mg tablet 00 BY MOUTH Medica l THREE Branch TIMES A DAY NEEDED. busPIRone 2023-0 Yes 10mg Take 1 Univer s 10 mg 3-16 tablet by ity of tablet 00:00: mouth in [place] 00 the Medical morning Branch and 1 [...] by ity of tablet 00:00: mouth in [place] the Medical morning Branch and 1 tablet in the evening. proMETHazin 2023-0 Yes TAKE ONE Un gracy e 12.5 mg 3-16 (1) ity of tablet 00:00: TABLET(S) [place] BY MOUTH Medical EVERY Branch EIGHT HOURS NEEDED. diphenoxyla 2023-0 Yes TAKE ONE Un gracy te-atropine 3-16 (1) ity of 2.5-0.025 00:00: TABLET(S) [place] mg tablet 00 BY MOUTH Medica l THREE Branch TIMES A DAY NEEDED. busPIRone 2023-0 Yes 10mg Take 1 Univer s 10 mg 3-16 tablet by ity of tablet 00:00: mouth in [place] the Medical morning Branch and 1 tablet [...] by ity of tablet 00:00: mouth in [place] 00 the Medical morning Branch and 1 [...] by ity of tablet 00:00: mouth in [place] 00 the Medical morning Branch and 1 [...] by ity of tablet 00:00: mouth in [place] 00 the Medical morning Branch and 1 [...] by ity of tablet 00:00: mouth in [place] 00 the Medical morning Branch and 1 [...] by ity of tablet 00:00: mouth in [place] 00 the Medical morning Branch and 1 tablet in the evening. proMETHazin 2023-0 Yes TAKE ONE Un gracy e 12.5 mg 3-16 (1) ity of tablet 00:00: TABLET(S) [place] 00 BY MOUTH Medical EVERY [facility] EIGHT HOURS NEEDED. diphenoxyla 2023-0 Yes TAKE ONE Un gracy te-atropine 3-16 (1) ity of 2.5-0.025 00:00: TABLET(S) [place] mg tablet 00 BY MOUTH Medica l THREE Branch TIMES A DAY NEEDED. busPIRone 2023-0 Yes 10mg Take 1 Univer s 10 mg 3-16 tablet by ity of tablet 00:00: mouth in [place] 00 the Medical morning Branch and 1 [...] by ity of tablet 00:00: mouth in [place] 00 the Medical morning Branch and 1 [...] by ity of tablet 00:00: mouth in [place] the Medical morning Branch and 1 tablet [...] by ity of tablet 00:00: mouth in [place] the Medical morning Branch and 1 tablet [...] by ity of tablet 00:00: mouth in [place] the Medical morning Branch and 1 tablet [...] by ity of tablet 00:00: mouth in [place] 00 the Medical morning Branch and 1 [...] by ity of tablet 00:00: mouth in [place] 00 the Medical morning Branch and 1 [...] l THREE Branch TIMES A DAY NEEDED. oxybutynin 2020- Yes 10mg QD Take [facility] tablet (10 Marcella kes L) 10 MG 24 00:00: mg total) M edical hr tablet 00 by mouth Center daily. oxybutynin 2020- Yes 10mg QD Take 1 [facility] (D[facility] 2-19 tablet (10 Mar[facility]a kes L) 10 MG 24 00:00: mg total) M edical hr tablet 00 by mouth Center daily. oxybutynin 2020- Yes 10mg QD Take 1 [facility] mouth Center daily. busPIRone 2020-12 Yes 5mg [id number] Take [address] [facility] (BUSPAR) 5 2-18 [id number] by mouth [facility] tablet 15:41: 3D (three) Medic al 03 times Center daily. busPIRone 2021-1 Yes 5mg [id number] Take [address] [facility] (BUSPAR) 5 2-18 [id number] by mouth 3 [facility] tablet 15:41: 3D (three) Medic al 03 times Center daily. busPIRone 2020-12 Yes 5mg [id number] Take [address] [facility] (BUSPAR) 5 2-18 [id number] by mouth 3 [facility] tablet 15:41: 3D (three) Medic al 03 times Center daily. busPIRone 2020-12 Yes 5mg [id number] Take [address] [facility] (BUSPAR) 5 2-18 [id number] by mouth 3 [facility] tablet 15:41: [...] St -acetaminop 2-18 05-24 tablet by Marcella castillo ([facility] 00:00: 00:00 mouth Medic al 5-325) 00 :00 every 6 Center 5-325 mg (six) per tablet hours as needed for Pain. Max Daily Amount: 4 tablets HYDROcodone 2020-12- No 1{tbl} Take [address] -acetaminop 2-18 05-24 tablet by Marcella castillo ([facility] 00:00: 00:00 mouth Medic al 5-325) 00 :00 every 6 Center 5-325 mg (six) per tablet hours as needed for Pain. Max Daily Amount: 4 tablets HYDROcodone 2020-12- No 1{tbl} Take [address] -acetaminop 2-18 05-24 tablet by Marcella castillo ([facility] 00:00: 00:00 mouth Medic al 5-325) 00 :00 every 6 Center 5-325 mg (six) per tablet hours as needed for Pain. Max Daily Amount: 4 tablets HYDROcodone 2020-12- No 1{tbl} Take [address] -acetaminop 2-18 05-24 tablet by Marcella castillo ([facility] 00:00: 00:00 mouth Medic al 5-325) 00 :00 every 6 Center 5-325 mg (six) per tablet hours as needed for Pain. Max Daily Amount: 4 tablets HYDROcodone 2020-12- No 1{tbl} Take [address] -acetaminop 2-18 05-24 tablet by Marcella castillo ([facility] 00:00: 00:00 mouth Medic al 5-325) 00 :00 every 6 Center 5-325 mg (six) per tablet hours as needed for Pain. Max Daily Amount: 4 tablets ibuprofen 2020- No 600mg 600 mg, Uni vers (IBU) 1-25 01-25 Oral, ity of tablet 600 04:45: 03:53 ONCE, 1 [place] mg 00 :00 dose, [facility] 12/25/20 at Branch 2245, MATTHEW ibuprofen No 600mg 600 mg, Uni vers (IBU) 12-26 Oral, ity of tablet 600 00:30: 12:29 ONCE, 1 [place] mg 00 :00 dose, [facility] 12/25/20 at Branch 1830, MATTHEW metroNIDAZO 2020- No [id number] 2000mg Take 4 Univers LE 500 mg 12-26 tablets by ity of tablet 00:00: 05:59 mouth 2 [place] 00 :00 (two) Medical times [place] daily for 1 dose. NaCl 0.9% No 1000mL at 999 Uni vers (NS) bolus 12-25 mL/hr, ity of infusion 17:30: 18:07 1,000 mL, Jose as 1,000 mL 00 :00 IV Medical Infusion, [place] ONCE, 1 dose, [place] 12/25/20 at 1130, STAT proMETHazin No 12.5mg 12.5 mg, Univers e 12-25 IV ity of (PHENERGAN) 17:30: 16:45 [place], [place] 12.5 mg in 00 :00 ONCE, 1 Medica l NaCl 0.9% dose, [facility] h (NS) 50 mL 12/25/20 at piggyback 1130, 50 mL cefTRIAXone No 250mg 250 mg, U nivers (ROCEPHIN) 12-25 Intramuscu it y of injection 16:30: 16:45 [place], [place]CE [place] 250 mg 00 :00 NOW, 1 Medical dose, [facility] 12/25/20 at 1030, MATTHEW
Fa culty member approving Restricted medication : MYNOR HOLLIS
Reaso n for Anti-Infec tive: Documented Infection< br>Docu mented Infection Site: Abdominal< br>Duratio n of Therapy: 7 days azithromyci No 1000mg 1,000 mg, Univers n 12-25 Oral, ONCE ity of (ZITHROMAX) 16:30: 16:44 NOW, 1 [place] as tablet 00 :00 dose, [place] [facility] 1,000 mg 12/25/[address] [facility] h 1030, MATTHEW
Re ason for [...] dose, Fri Medica l mL) 07/15/20 at [place] injection 1715, 120 mL Routine dicyclomine 2019-0 Yes 10mg 10 mg, Univ ers (BENTYL) 8-14 Oral, QID, ity o f capsule 10 21:00: First dose [place] mg 00 on [facility] 07/15/20 at [place] 1600, Until Discontinu ed, Routine pantoprazol 2019-0 2020- No 80mg 80 mg, IV Univers e 07-15 Piggyback, ity of (PROTONIX) 19:45: 20:00 ONCE, 1 [place] as 80 mg in 00 :00 dose, Fri Medica l NaCl 0.9% 07/15/20 at [facility] ch (NS) 100 mL 1445, 100 IV mL Piggyback sucralfate 2020-0 Yes [id number] 1g Take 1 Un gracy 1 gram 8-14 tablet by ity of tablet 00:00: mouth [place] 00 before Medical meals and Branch at bedtime. dicyclomine 2020-0 Yes [id number] 10mg Take 1 U nivers (BENTYL) 10 8-14 capsule by it y of mg capsule 00:00: mouth [place] 00 every 8 Medical (eight) Branch hours as needed for Abdominal pain. ondansetron 2020-0 Yes [id number] 4mg Take 1 U nivers 4 mg 8-14 tablet by ity of disintegrat 00:00: mouth [place] ing tablet 00 every 8 Medica l (eight) Branch hours as needed for Nausea and Vomiting (N/V). sucralfate 2020-0 Yes [id number] 1g Take 1 Un gracy 1 gram 8-14 tablet by ity of tablet 00:00: mouth [place] 00 before Medical meals and Branch at bedtime. dicyclomine 2020-0 Yes [id number] 10mg Take 1 U nivers (BENTYL) 10 8-14 capsule by it y of mg capsule 00:00: mouth [place] 00 every 8 Medical (eight) Branch hours as needed for Abdominal pain. ondansetron 2020-0 Yes [id number] 4mg Take 1 U nivers 4 mg 8-14 tablet by ity of disintegrat 00:00: mouth [place] ing tablet 00 every 8 Medica l (eight) Branch hours as needed for Nausea and Vomiting (N/V). sucralfate 2020-0 Yes [id number] 1g Take 1 Un gracy 1 gram 8-14 tablet by ity of tablet 00:00: mouth [place] 00 before Medical meals and Branch at bedtime. dicyclomine 2020-0 Yes [id number] 10mg Take 1 U nivers (BENTYL) 10 8-14 capsule by it y of mg capsule 00:00: mouth [place] 00 every 8 Medical (eight) Branch hours as needed for Abdominal pain. ondansetron 2020-0 Yes [id number] 4mg Take 1 U nivers 4 mg 8-14 tablet by ity of disintegrat 00:00: mouth [place] ing tablet 00 every 8 Medica l (eight) Branch hours as needed for Nausea and Vomiting (N/V). sucralfate 2020-0 Yes [id number] 1g Take 1 Un gracy 1 gram 8-14 tablet by ity of tablet 00:00: mouth [place] 00 before Medical meals and Branch at bedtime. dicyclomine 2020-0 Yes [id number] 10mg Take 1 U nivers (BENTYL) 10 8-14 capsule by it y of mg capsule 00:00: mouth [place] 00 every 8 Medical (eight) Branch hours as needed for Abdominal pain. ondansetron 2020-0 Yes [id number] 4mg Take 1 U nivers 4 mg 8-14 tablet by ity of disintegrat 00:00: mouth [place] ing tablet 00 every 8 Medica l (eight) Branch hours as needed for Nausea and Vomiting (N/V). sucralfate 2020-0 Yes [id number] 1g Take 1 Un gracy 1 gram 8-14 tablet by ity of tablet 00:00: mouth [place] 00 before Medical meals and Branch at bedtime. dicyclomine 2020-0 Yes [id number] 10mg Take 1 U nivers (BENTYL) 10 8-14 capsule by it y of mg capsule 00:00: mouth [place] 00 every 8 Medical (eight) Branch hours as needed for Abdominal pain. ondansetron 2020-0 Yes [id number] 4mg Take 1 U nivers 4 mg 8-14 tablet by ity of disintegrat 00:00: mouth [place] ing tablet 00 every 8 Medica l (eight) Branch hours as needed for Nausea and Vomiting (N/V). sucralfate 2020-0 Yes [id number] 1g Take 1 Un gracy 1 gram 8-14 tablet by ity of tablet 00:00: mouth [place] 00 before Medical meals and Branch at bedtime. dicyclomine 2020-0 Yes [id number] 10mg Take 1 U nivers (BENTYL) 10 8-14 capsule by it y of mg capsule 00:00: mouth [place] 00 every 8 Medical (eight) Branch hours as needed for Abdominal pain. ondansetron 2020-0 Yes [id number] 4mg Take 1 U nivers 4 mg 8-14 tablet by ity of disintegrat 00:00: mouth [place] ing tablet 00 every 8 Medica l (eight) Branch hours as needed for Nausea and Vomiting (N/V). sucralfate 2020-0 Yes [id number] 1g Take 1 Un gracy 1 gram 8-14 tablet by ity of tablet 00:00: mouth [place] 00 before Medical meals and Branch at bedtime. dicyclomine 2020-0 Yes [id number] 10mg Take 1 U nivers (BENTYL) 10 8-14 capsule by it y of mg capsule 00:00: mouth [place] 00 every 8 Medical (eight) Branch hours as needed for Abdominal pain. ondansetron 2020-0 Yes [id number] 4mg Take 1 U nivers 4 mg 8-14 tablet by ity of disintegrat 00:00: mouth [place] ing tablet 00 every 8 Medica l (eight) Branch hours as needed for Nausea and Vomiting (N/V). sucralfate 2020-0 Yes [id number] 1g Take 1 Un gracy 1 gram 8-14 tablet by ity of tablet 00:00: mouth [place] 00 before Medical meals and Branch at bedtime. dicyclomine 2020-0 Yes [id number] 10mg Take 1 U nivers (BENTYL) 10 8-14 capsule by it y of mg capsule 00:00: mouth [place] 00 every 8 Medical (eight) Branch hours as needed for Abdominal pain. ondansetron 2020-0 Yes [id number] 4mg Take 1 U nivers 4 mg 8-14 tablet by ity of disintegrat 00:00: mouth [place] ing tablet 00 every 8 Medica l (eight) Branch hours as needed for Nausea and Vomiting (N/V). sucralfate 2020-0 Yes [id number] 1g Take 1 Un gracy 1 gram 8-14 tablet by ity of tablet 00:00: mouth [place] 00 before Medical meals and Branch at bedtime. dicyclomine 2020-0 Yes [id number] 10mg Take 1 U nivers (BENTYL) 10 8-14 capsule by it y of mg capsule 00:00: mouth [place] 00 every 8 Medical (eight) Branch hours as needed for Abdominal pain. ondansetron 2020-0 Yes [id number] 4mg Take 1 U nivers 4 mg 8-14 tablet by ity of disintegrat 00:00: mouth [place] ing tablet 00 every 8 Medica l (eight) Branch hours as needed for Nausea and Vomiting (N/V). sucralfate 2020-0 Yes [id number] 1g Take 1 Un gracy 1 gram 8-14 tablet by ity of tablet 00:00: mouth [place] 00 before Medical meals and Branch at bedtime. dicyclomine 2020-0 Yes [id number] 10mg Take 1 U nivers (BENTYL) 10 8-14 capsule by it y of mg capsule 00:00: mouth [place] 00 every 8 Medical (eight) Branch hours as needed for Abdominal pain. ondansetron 2020-0 Yes [id number] 4mg Take 1 U nivers 4 mg 8-14 tablet by ity of disintegrat 00:00: mouth [place] ing tablet 00 every 8 Medica l (eight) Branch hours as needed for Nausea and Vomiting (N/V). sucralfate 2020-0 Yes [id number] 1g Take 1 Un gracy 1 gram 8-14 tablet by ity of tablet 00:00: mouth [place] 00 before Medical meals and Branch at bedtime. dicyclomine 2020-0 Yes [id number] 10mg Take 1 U nivers (BENTYL) 10 8-14 capsule by it y of mg capsule 00:00: mouth [place] 00 every 8 Medical (eight) Branch hours as needed for Abdominal pain. ondansetron 2020-0 Yes [id number] 4mg Take 1 U nivers 4 mg 8-14 tablet by ity of disintegrat 00:00: mouth [place] ing tablet 00 every 8 Medica l (eight) Branch hours as needed for Nausea and Vomiting (N/V). sucralfate 2020-0 Yes [id number] 1g Take 1 Un gracy 1 gram 8-14 tablet by ity of tablet 00:00: mouth [place] 00 before Medical meals and Branch at bedtime. dicyclomine 2020-0 Yes [id number] 10mg Take 1 U nivers (BENTYL) 10 8-14 capsule by it y of mg capsule 00:00: mouth [place] 00 every 8 Medical (eight) Branch hours as needed for Abdominal pain. ondansetron 2020-0 Yes [id number] 4mg Take 1 U nivers 4 mg 8-14 tablet by ity of disintegrat 00:00: mouth [place] ing tablet 00 every 8 Medica l (eight) Branch hours as needed for Nausea and Vomiting (N/V). sucralfate 2020-0 Yes [id number] 1g Take 1 Un gracy 1 gram 8-14 tablet by ity of tablet 00:00: mouth [place] 00 before Medical meals and Branch at bedtime. dicyclomine 2020-0 Yes [id number] 10mg Take 1 U nivers (BENTYL) 10 8-14 capsule by it y of mg capsule 00:00: mouth [place] 00 every 8 Medical (eight) Branch hours as needed for Abdominal pain. ondansetron 2020-0 Yes [id number] 4mg Take 1 U nivers 4 mg 8-14 tablet by ity of disintegrat 00:00: mouth [place] ing tablet 00 every 8 Medica l (eight) Branch hours as needed for Nausea and Vomiting (N/V). sucralfate 2020-0 Yes [id number] 1g Take 1 Un gracy 1 gram 8-14 tablet by ity of tablet 00:00: mouth [place] 00 before Medical meals and Branch at bedtime. dicyclomine 2020-0 Yes [id number] 10mg Take 1 U nivers (BENTYL) 10 8-14 capsule by it y of mg capsule 00:00: mouth [place] 00 every 8 Medical (eight) Branch hours as needed for Abdominal pain. ondansetron 2020-0 Yes [id number] 4mg Take 1 U nivers 4 mg 8-14 tablet by ity of disintegrat 00:00: mouth [place] ing tablet 00 every 8 Medica l (eight) Branch hours as needed for Nausea and Vomiting (N/V). sucralfate 2020-0 Yes [id number] 1g Take 1 Un gracy 1 gram 8-14 tablet by ity of tablet 00:00: mouth [place] 00 before Medical meals and Branch at bedtime. dicyclomine 2020-0 Yes [id number] 10mg Take 1 U nivers (BENTYL) 10 8-14 capsule by it y of mg capsule 00:00: mouth [place] 00 every 8 Medical (eight) Branch hours as needed for Abdominal pain. ondansetron 2020-0 Yes [id number] 4mg Take 1 U nivers 4 mg 8-14 tablet by ity of disintegrat 00:00: mouth [place] ing tablet 00 every 8 Medica l (eight) Branch hours as needed for Nausea and Vomiting (N/V). sucralfate 2020-0 Yes [id number] 1g Take 1 Un gracy 1 gram 8-14 tablet by ity of tablet 00:00: mouth [place] 00 before Medical meals and Branch at bedtime. dicyclomine 2020-0 Yes [id number] 10mg Take 1 U nivers (BENTYL) 10 8-14 capsule by it y of mg capsule 00:00: mouth [place] 00 every 8 Medical (eight) Branch hours as needed for Abdominal pain. ondansetron 2020-0 Yes [id number] 4mg Take 1 U nivers 4 mg 8-14 tablet by ity of disintegrat 00:00: mouth [place] ing tablet 00 every 8 Medica l (eight) Branch hours as needed for Nausea and Vomiting (N/V). sucralfate 2020-0 Yes [id number] 1g Take 1 Un gracy 1 gram 8-14 tablet by ity of tablet 00:00: mouth [place] 00 before Medical meals and Branch at bedtime. dicyclomine 2020-0 Yes [id number] 10mg Take 1 U nivers (BENTYL) 10 8-14 capsule by it y of mg capsule 00:00: mouth [place] 00 every 8 Medical (eight) Branch hours as needed for Abdominal pain. ondansetron 2020-0 Yes [id number] 4mg Take 1 U nivers 4 mg 8-14 tablet by ity of disintegrat 00:00: mouth [place] ing tablet 00 every 8 Medica l (eight) Branch hours as needed for Nausea and Vomiting (N/V). sucralfate 2020-0 Yes [id number] 1g Take 1 Un gracy 1 gram 8-14 tablet by ity of tablet 00:00: mouth [place] 00 before Medical meals and Branch at bedtime. dicyclomine 2020-0 Yes [id number] 10mg Take 1 U nivers (BENTYL) 10 8-14 capsule by it y of mg capsule 00:00: mouth [place] 00 every 8 Medical (eight) Branch hours as needed for Abdominal pain. ondansetron 2020-0 Yes [id number] 4mg Take 1 U nivers 4 mg 8-14 tablet by ity of disintegrat 00:00: mouth [place] ing tablet 00 every 8 Medica l (eight) Branch hours as needed for Nausea and Vomiting (N/V). sucralfate 2020-0 Yes [id number] 1g Take 1 Un gracy 1 gram 8-14 tablet by ity of tablet 00:00: mouth [place] 00 before Medical meals and Branch at bedtime. dicyclomine 2020-0 Yes [id number] 10mg Take 1 U nivers (BENTYL) 10 8-14 capsule by it y of mg capsule 00:00: mouth [place] 00 every 8 Medical (eight) Branch hours as needed for Abdominal pain. ondansetron 2020-0 Yes [id number] 4mg Take 1 U nivers 4 mg 8-14 tablet by ity of disintegrat 00:00: mouth [place] ing tablet 00 every 8 Medica l (eight) Branch hours as needed for Nausea and Vomiting (N/V). sucralfate 2020-0 Yes [id number] 1g Take 1 Un gracy 1 gram 8-14 tablet by ity of tablet 00:00: mouth [place] 00 before Medical meals and Branch at bedtime. dicyclomine 2020-0 Yes [id number] 10mg Take 1 U nivers (BENTYL) 10 8-14 capsule by it y of mg capsule 00:00: mouth [place] 00 every 8 Medical (eight) Branch hours as needed for Abdominal pain. ondansetron 2020-0 Yes [id number] 4mg Take 1 U nivers 4 mg 8-14 tablet by ity of disintegrat 00:00: mouth [place] ing tablet 00 every 8 Medica l (eight) Branch hours as needed for Nausea and Vomiting (N/V). sucralfate 2020-0 Yes [id number] 1g Take 1 Un gracy 1 gram 8-14 tablet by ity of tablet 00:00: mouth [place] 00 before Medical meals and Branch at bedtime. dicyclomine 2020-0 Yes [id number] 10mg Take 1 U nivers (BENTYL) 10 8-14 capsule by it y of mg capsule 00:00: mouth [place] 00 every 8 Medical (eight) Branch hours as needed for Abdominal pain. ondansetron 2020-0 Yes [id number] 4mg Take 1 U nivers 4 mg 8-14 tablet by ity of disintegrat 00:00: mouth [place] ing tablet 00 every 8 Medica l (eight) Branch hours as needed for Nausea and Vomiting (N/V). sucralfate 2020-0 Yes [id number] 1g Take 1 Un gracy 1 gram 8-14 tablet by ity of tablet 00:00: mouth [place] 00 before Medical meals and Branch at bedtime. dicyclomine 2020-0 Yes [id number] 10mg Take 1 U nivers (BENTYL) 10 8-14 capsule by it y of mg capsule 00:00: mouth [place] 00 every 8 Medical (eight) Branch hours as needed for Abdominal pain. ondansetron 2020-0 Yes [id number] 4mg Take 1 U nivers 4 mg 8-14 tablet by ity of disintegrat 00:00: mouth [place] ing tablet 00 every 8 Medica l (eight) Branch hours as needed for Nausea and Vomiting (N/V). dicyclomine 2020-0 Yes [id number] 10mg Take 1 U nivers (BENTYL) 10 8-14 capsule by it y of mg capsule 00:00: mouth [place] 00 every 8 Medical (eight) Branch hours as needed for Abdominal pain. dicyclomine 2020-0 Yes [id number] 10mg Take 1 U nivers (BENTYL) 10 8-14 capsule by it y of mg capsule 00:00: mouth [place] 00 every 8 Medical (eight) Branch hours as needed for Abdominal pain. dicyclomine 2020-0 Yes [id number] 10mg Take 1 U nivers (BENTYL) 10 8-14 capsule by it y of mg capsule 00:00: mouth [place] 00 every 8 Medical (eight) Branch hours as needed for Abdominal pain. dicyclomine 2020-0 Yes [id number] 10mg Take 1 U nivers (BENTYL) 10 8-14 capsule by it y of mg capsule 00:00: mouth [place] 00 every 8 Medical (eight) Branch hours as needed for Abdominal pain. dicyclomine 2020-0 Yes [id number] 10mg Take 1 U nivers (BENTYL) 10 8-14 capsule by it y of mg capsule 00:00: mouth [place] 00 every 8 Medical (eight) Branch hours as needed for Abdominal pain. dicyclomine 2020-0 Yes [id number] 10mg Take 1 U nivers (BENTYL) 10 8-14 capsule by it y of mg capsule 00:00: mouth [place] 00 every 8 Medical (eight) Branch hours as needed for Abdominal pain. dicyclomine 2020-0 Yes [id number] 10mg Take 1 U nivers (BENTYL) 10 8-14 capsule by it y of mg capsule 00:00: mouth [place] 00 every 8 Medical (eight) Branch hours as needed for Abdominal pain. dicyclomine 2020-0 Yes [id number] 10mg Take 1 U nivers (BENTYL) 10 8-14 capsule by it y of mg capsule 00:00: mouth [place] 00 every 8 Medical (eight) Branch hours as needed for Abdominal pain. dicyclomine 2020-0 Yes [id number] 10mg Take 1 U nivers (BENTYL) 10 8-14 capsule by it y of mg capsule 00:00: mouth [place] 00 every 8 Medical (eight) Branch hours as needed for Abdominal pain. dicyclomine 2020-0 Yes [id number] 10mg Take 1 U nivers (BENTYL) 10 8-14 capsule by it y of mg capsule 00:00: mouth [place] 00 every 8 Medical (eight) Branch hours as needed for Abdominal pain. dicyclomine 2020-0 Yes [id number] 10mg Take 1 U nivers (BENTYL) 10 8-14 capsule by it y of mg capsule 00:00: mouth [place] 00 every 8 Medical (eight) Branch hours as needed for Abdominal pain. dicyclomine 2020-0 Yes [id number] 10mg Take 1 U nivers (BENTYL) 10 8-14 capsule by it y of mg capsule 00:00: mouth [place] 00 every 8 Medical (eight) Branch hours as needed for Abdominal pain. dicyclomine 2020-0 Yes [id number] 10mg Take 1 U nivers (BENTYL) 10 8-14 capsule by it y of mg capsule 00:00: mouth [place] 00 every 8 Medical (eight) Branch hours as needed for Abdominal pain. dicyclomine 2020-0 Yes [id number] 10mg Take 1 U nivers (BENTYL) 10 8-14 capsule by it y of mg capsule 00:00: mouth [place] 00 every 8 Medical (eight) Branch hours as needed for Abdominal pain. dicyclomine 2020-0 Yes [id number] 10mg Take 1 U nivers (BENTYL) 10 8-14 capsule by it y of mg capsule 00:00: mouth [place] 00 every 8 Medical (eight) Branch hours as needed for Abdominal pain. dicyclomine 2020-0 Yes [id number] 10mg Take 1 U nivers (BENTYL) 10 8-14 capsule by it y of mg capsule 00:00: mouth [place] 00 every 8 Medical (eight) Branch hours as needed for Abdominal pain. dicyclomine 2020-0 Yes [id number] 10mg Take 1 U nivers (BENTYL) 10 8-14 capsule by it y of mg capsule 00:00: mouth [place] 00 every 8 Medical (eight) Branch hours as needed for Abdominal pain. dicyclomine 2020-0 Yes [id number] 10mg Take 1 U nivers (BENTYL) 10 8-14 capsule by it y of mg capsule 00:00: mouth [place] 00 every 8 Medical (eight) Branch hours as needed for Abdominal pain. dicyclomine 2020-0 Yes [id number] 10mg Take 1 U nivers (BENTYL) 10 8-14 capsule by it y of mg capsule 00:00: mouth [place] 00 every 8 Medical (eight) Branch hours as needed for Abdominal pain. dicyclomine 2020-0 Yes [id number] 10mg Take 1 U nivers (BENTYL) 10 8-14 capsule by it y of mg capsule 00:00: mouth [place] 00 every 8 Medical (eight) Branch hours as needed for Abdominal pain. dicyclomine 2020-0 Yes [id number] 10mg Take 1 U nivers (BENTYL) 10 8-14 capsule by it y of mg capsule 00:00: mouth [place] 00 every 8 Medical (eight) Branch hours as needed for Abdominal pain. sucralfate 2020-0 2022- No [id number] 1g Take 1 U nivers 1 gram 8-14 04-25 tablet by ity of tablet 00:00: 00:00 mouth [place] 00 :00 before Medical meals and Branch at bedtime. ondansetron 2019-2022- No [id number] 4mg Take 1 Univers 4 mg 8-14 04-25 tablet by ity of disintegrat 00:00: 00:00 mouth [place] ing tablet 00 :00 every 8 Medica l (eight) Branch hours as needed for Nausea and Vomiting (N/V). sucralfate 2019-2022- No [id number] 1g Take 1 U nivers 1 gram 8-14 04-25 tablet by ity of tablet 00:00: 00:00 mouth [place] 00 :00 before Medical meals and Branch at bedtime. ondansetron 2019-2022- No [id number] 4mg Take 1 Univers 4 mg 8-14 04-25 tablet by ity of disintegrat 00:00: 00:00 mouth [place] ing tablet 00 :00 every 8 Medica l (eight) Branch hours as needed for Nausea and Vomiting (N/V). sucralfate 2019-2022- No [id number] 1g Take 1 U nivers 1 gram 8-14 04-25 tablet by ity of tablet 00:00: 00:00 mouth [place] 00 :00 before Medical meals and Branch at bedtime. ondansetron 2019-2022- No [id number] 4mg Take 1 Univers 4 mg 8-14 04-25 tablet by ity of disintegrat 00:00: 00:00 mouth [place] tablet 00 :00 every 8 Medica l (eight) Branch hours as needed for Nausea and Vomiting (N/V). omeprazole 2019-2019- No [id number] 20mg Take 1 U nivers 20 mg 8-14 09-14 capsule by ity of capsule 00:00: 04:59 mouth [place] 00 :00 daily for Medical 30 days. Branch omeprazole 2019-2019- No [id number] 20mg Take 1 U nivers 20 mg 8-14 09-14 capsule by ity of capsule 00:00: 04:59 mouth [place] 00 :00 daily for Medical 30 days. Branch omeprazole 2019-2019- No [id number] 20mg Take 1 U nivers 20 mg -08-15 capsule by ity of capsule 00:00: 04:59 mouth [place] 00 :00 daily for Medical 30 days. Branch omeprazole 2020-0 2020- No [id number] 20mg Take 1 U nivers 20 mg 8-14 - capsule by ity of capsule 00:00: 04:59 mouth [place] 00 :00 daily for Medical 30 days. Branch omeprazole 2020-0 2020- No [id number] 20mg Take 1 U nivers 20 mg 8-15 08- capsule by ity of capsule 00:00: 04:59 mouth [place] 00 :00 daily for Medical 30 days. Branch omeprazole 2020-0 2020- No [id number] 20mg Take 1 U nivers 20 mg 8-08-15 capsule by ity of capsule 00:00: 04:59 mouth [place] 00 :00 daily for Medical 30 days. Branch omeprazole 2020-0 2020- No [id number] 20mg Take 1 U nivers 20 mg 07-15 capsule by ity of capsule 00:00: 04:59 mouth [place] 00 :00 daily for Medical 30 days. Branch omeprazole 2020-0 2020- No [id number] 20mg Take 1 U nivers 20 mg -08-15 capsule by ity of capsule 00:00: 04:59 mouth [place] 00 :00 daily for Medical 30 days. [place] enoxaparin 2019-0 Yes 40mg 40 mg, Unive rs (LOVENOX) 4-21 Subcutaneo ity of injection 14:00: [place], [place]ILY, [place] 40 mg 00 First dose Medical on [facility] 03/22/20 at 0900, Until Discontinu ed, Routine ondansetron 2019-0 Yes 4mg 4 mg, Slow Univers (ZOFRAN 4-21 IV Push, ity of (PF)) 09:23: Q6HPRN, [place] injection 4 44 Starting Medi dorothy mg [facility] 03/22/20 at 0423, Until Discontinu ed, Routine, Nausea and Vomiting (N/V) ketorolac 2020-0 Yes 15mg 15 mg, Univer s (TORADOL) 4-21 Slow IV ity of injection 09:23: Push, [place] 15 mg 14 Q6HPRN, 4 Medical doses, Branch Starting [facility] 03/22/20 at 0423, Until Discontinu ed, Routine, chest pain
[facility] : SANJAY LIND acetaminoph Yes 650mg 650 mg, Un gracy en - Oral, ity of (TYLENOL) 09:22: Q6HPRN, [place] tablet 650 49 Starting Medic al mg [facility] 03/22/20 at 0422, Until Discontinu ed, Routine, Pain (scale 1-3) ondansetron 2019- No 4mg 4 mg, Slow Univers (ZOFRAN -22 03- IV Push, ity of (PF)) 07:15: 07:14 ONCE, 1 [place] injection 4 00 :00 dose, Sat Med ical mg 03/22/20 at Branch 0215, MATTHEW ondansetron 2018-12 2020- No [id number] 4mg Take 1 Univers (ZOFRAN 2-25 -21 tablet by ity of ODT) 4 mg 00:00: 00:00 mouth [place] disintegrat 00 :00 every 8 Medic al ing tablet (eight) Branch hours as needed for Nausea and Vomiting (N/V). ketorolac 2018-12 2020- No [id number] 10mg Take 1 Univers 10 mg 2-25 -21 tablet by ity of tablet 00:00: 00:00 mouth [place] 00 :00 every 6 Medical (six) Branch hours as needed for Pain (scale 1-3). No known No Univers medications [facility] known [facility] No Univers medications [facility] No known No Univers medications [facility] Immunizations Ordered Filled Immunization Date Status Comments [facility] e Immunization Name Name Influenza Virus 2017-09-26 Completed Universit y of Vaccine Quad IM 3+ 00:00:00 [facility] Influenza Virus 2017-09-26 Completed Universit y of Vaccine Quad IM 3+ 00:00:00 [facility] Influenza Virus 2017-09-26 Completed Universit y of Vaccine Quad IM 3+ 00:00:00 [facility] Influenza Virus 2017-09-26 Completed Universit y of Vaccine Quad IM 3+ 00:00:00 [facility] Influenza Virus 2017-09-26 Completed Universit y of Vaccine Quad IM 3+ 00:00:00 [facility] Influenza Virus 2017-09-26 Completed Universit y of Vaccine Quad IM 3+ 00:00:00 [facility] Influenza Virus 2017-09-26 Completed Universit y of Vaccine Quad IM 3+ 00:00:00 [facility] Influenza Virus 2017-09-26 Completed Universit y of Vaccine Quad IM 3+ 00:00:00 [facility] Influenza Virus 2017-09-26 Completed Universit y of Vaccine Quad IM 3+ 00:00:00 [facility] Influenza Virus 2017-09-26 Completed Universit y of Vaccine Quad IM 3+ 00:00:00 [facility] Influenza Virus 2017-09-26 Completed Universit y of Vaccine Quad IM 3+ 00:00:00 [facility] Influenza Virus 2017-09-26 Completed Universit y of Vaccine Quad IM 3+ 00:00:00 [facility] Influenza Virus 2017-09-26 Completed Universit y of Vaccine Quad IM 3+ 00:00:00 [facility] Influenza Virus 2017-09-26 Completed [facility] 3+ 00:00:00 [facility] Influenza Virus 2017-09-26 Completed [facility] Vaccine [facility] IM 3+ 00:00:00 [facility] Influenza Virus 2017-09-26 Completed [facility] Vaccine [facility] IM 3+ 00:00:00 [facility] Influenza Virus 2017-09-26 Completed [facility] Vaccine [facility] IM 3+ 00:00:00 [facility] Influenza Virus 2017-09-26 Completed [facility] Vaccine [facility] IM 3+ 00:00:00 [facility] Influenza Virus 2017-09-26 Completed [facility] Vaccine [facility] IM 3+ 00:00:00 [facility] Influenza Virus 2017-09-26 Completed [facility] Vaccine [facility] IM 3+ 00:00:00 [facility] Influenza Virus 2017-09-26 Completed [facility] Vaccine [facility] IM 3+ 00:00:00 [facility] Influenza Virus 2017-09-26 Completed [facility] Vaccine [facility] IM 3+ 00:00:00 [facility] Influenza Virus 2017-09-26 Completed [facility] Vaccine [facility] IM 3+ 00:00:00 [facility] Influenza Virus 2017-09-26 Completed [facility] Vaccine [facility] IM 3+ 00:00:00 [facility] Influenza Virus 2017-09-26 Completed [facility] Vaccine [facility] IM 3+ 00:00:00 [facility] Influenza Virus 2017-09-26 Completed [facility] Vaccine [facility] IM 3+ 00:00:00 [facility] Influenza Virus 2017-09-26 Completed [facility] Vaccine [facility] IM 3+ 00:00:00 [facility] Influenza Virus 2017-09-26 Completed [facility] Vaccine [facility] IM 3+ 00:00:00 [facility] Influenza Virus 2017-09-26 Completed [facility] Vaccine [facility] IM 3+ 00:00:00 [facility] Influenza Virus 2017-09-26 Completed [facility] Vaccine [facility] IM 3+ 00:00:00 [facility] Influenza Virus 2017-09-26 Completed [facility] Vaccine [facility] IM 3+ 00:00:00 [facility] Influenza Virus 2017-09-26 Completed [facility] Vaccine [facility] IM 3+ 00:00:00 [facility] Influenza Virus 2017-09-26 Completed [facility] Vaccine [facility] IM 3+ 00:00:00 [facility] Influenza Virus 2017-09-26 Completed [facility] Vaccine [facility] IM 3+ 00:00:00 [facility] Influenza Virus 2017-09-26 Completed [facility] Vaccine [facility] IM 3+ 00:00:00 [facility] Influenza Virus 2017-09-26 Completed [facility] Vaccine [facility] IM 3+ 00:00:00 [facility] Influenza Virus 2017-09-26 Completed [facility] Vaccine [facility] IM 3+ 00:00:00 [facility] Influenza Virus 2017-09-26 Completed [facility] Vaccine [facility] IM 3+ 00:00:00 [facility] Influenza Virus 2017-09-26 Completed [facility] Vaccine [facility] IM 3+ 00:00:00 [facility] Influenza Virus 2017-09-26 Completed [facility] Vaccine [facility] IM 3+ 00:00:00 [facility] Influenza Virus 2017-09-26 Completed [facility] Vaccine [facility] IM 3+ 00:00:00 [facility] Influenza Virus 2017-09-26 Completed [facility] Vaccine [facility] IM 3+ 00:00:00 [facility] Influenza Virus 2017-09-26 Completed [facility] Vaccine [facility] IM 3+ 00:00:00 [facility] Influenza Virus 2017-09-26 Completed [facility] Vaccine [facility] IM 3+ 00:00:00 [facility] Influenza Virus 2017-09-26 Completed [facility] Vaccine [facility] IM 3+ 00:00:00 [facility] Influenza Virus 2017-09-26 Completed [facility] Vaccine [facility] IM 3+ 00:00:00 [facility] Influenza Virus 2017-09-26 Completed [facility] Vaccine [facility] IM 3+ 00:00:00 [facility] Influenza Virus 2017-09-26 Completed [facility] Vaccine [facility] IM 3+ 00:00:00 [facility] Influenza Virus 2017-09-26 Completed [facility] Vaccine [facility] IM 3+ 00:00:00 [facility] Vital Signs Vital Name Observation Time Observation Value Comments Source Body temperature 2023-05-03 37.33 Yarelis [facility] 21:04:00 [facility] Body height 2023-05-03 152.4 cm [facility] 21:04:00 [facility] Body weight 2023-05-03 58.968 kg [facility] 21:04:00 [facility] BMI 2023-05-03 25.39 kg/m2 [facility] 21:04:00 [facility] WEIGHT 2023-04-23 57.6 kg 03:00:00 WEIGHT 2023-04-23 57.6 kg 03:00:00 WEIGHT 2023-04-23 57.6 kg 03:00:00 Systolic blood 2023-04-08 143 mm[Hg] [facility] of pressure 16:08:00 [facility] Diastolic blood 2023-04-08 91 mm[Hg] University o f pressure 16:08:00 [facility] Heart rate 2023-04-08 87 /min [facility] 16:08:00 [facility] Body temperature 2023-04-08 35.89 Yarelis [facility] 16:08:00 [facility] Body height 2023-04-08 152.4 cm [facility] 16:08:00 [facility] Body weight 2023-04-08 60.51 kg [facility] of 16:08:00 [facility] BMI 2023-04-08 26.05 kg/m2 [facility] 16:08:00 [facility] Heart rate 2023-03-27 86 /min [facility] 18:25:00 [facility] Respiratory rate 2023-03-27 15 /min [facility] 18:25:00 [facility] Oxygen saturation 2023-03-27 99 /min [facility] in Arterial blood 18:25:00 [place] [facility] by Pulse oximetry Branch Systolic blood 2023-03-27 124 mm[Hg] [facility] of pressure 18:15:00 [facility] Branch Diastolic blood 2023-03-27 95 mm[Hg] University o f pressure 18:15:00 [facility] Body temperature 2023-03-27 36 Yarelis [facility] 17:52:00 [facility] Branch Body height 2023-03-27 152.4 cm University of 14:46:00 [facility] Body weight 2023-03-27 59.421 kg University of 14:46:00 [facility] BMI 2023-03-27 25.58 kg/m2 [facility] of 14:46:00 [facility] Systolic blood 2023-03-27 141 mm[Hg] [facility] pressure 14:47:00 [facility] Diastolic blood 2023-03-27 87 mm[Hg] University o f pressure 14:47:00 [facility] Heart rate 2023-03-27 95 /min [facility] 14:47:00 [facility] Body temperature 2023-03-27 36.67 Yarelis [facility] 14:46:00 [facility] Respiratory rate 2023-03-27 14 /min [facility] 14:46:00 [facility] Body height 2023-03-27 152.4 cm [facility] 14:46:00 [facility] Body weight 2023-03-27 59.421 kg [facility] of 14:46:00 [facility] BMI 2023-03-27 25.58 kg/m2 [facility] of 14:46:00 [facility] Oxygen saturation 2023-03-27 98 /min [facility] of in Arterial blood 14:46:00 [facility] dorothy by Pulse oximetry Branch Systolic blood 2023-03-25 131 mm[Hg] [facility] of pressure 20:46:00 [facility] Branch Diastolic blood 2023-03-25 87 mm[Hg] University o f pressure 20:46:00 [facility] Heart rate 2023-03-25 114 /min [facility] 20:46:00 [facility] Body temperature 2023-03-25 36.56 Yarelis [facility] 20:46:00 [facility] Body height 2023-03-25 152.4 cm [facility] 20:46:00 [facility] Body weight 2023-03-25 61.598 kg [facility] of 20:46:00 [facility] BMI 2023-03-25 26.52 kg/m2 [facility] 20:46:00 [facility] Systolic blood 2023-03-16 134 mm[Hg] [facility] of pressure 14:40:00 [facility] Diastolic blood 2023-03-16 90 mm[Hg] University o f pressure 14:40:00 [facility] Heart rate 2023-03-16 87 /min [facility] 14:40:00 [facility] Body temperature 2023-03-16 37.28 Yarelis [facility] 14:40:00 [facility] Respiratory rate 2023-03-16 16 /min [facility] 14:40:00 [facility] Body height 2023-03-16 152.4 cm University of 14:40:00 [facility] Body weight 2023-03-16 56.7 kg University of 14:40:00 [facility] BMI 2023-03-16 24.41 kg/m2 University of 14:40:00 [facility] Oxygen saturation 2023-03-16 99 /min [place] of in Arterial blood 14:40:00 [facility] by Pulse oximetry Branch Systolic blood 2020-12-26 115 mm[Hg] University of pressure 09:00:00 [facility] Diastolic blood 2020-12-26 76 mm[Hg] University o f pressure 09:00:00 [facility] Heart rate 2020-12-26 78 /min [facility] of 09:00:00 [facility] Body temperature 2020-12-26 36.22 Yarelis [facility] 09:00:00 [facility] Respiratory rate 2020-12-26 16 /min [facility] 09:00:00 [facility] Oxygen saturation 2020-12-26 100 /min [facility] of in Arterial blood 09:00:00 [facility] by Pulse oximetry [facility] Body weight 2020-12-26 53.978 kg University of 00:27:00 [facility] BMI 2020-12-26 24.04 kg/m2 University of 00:27:00 [facility] Systolic blood 2020-12-26 115 mm[Hg] [facility] pressure 09:00:00 [facility] Diastolic blood 2020-12-26 76 mm[Hg] University o f pressure 09:00:00 [facility] Heart rate 2020-12-26 78 /min [facility] of 09:00:00 [facility] Body temperature 2020-12-26 36.22 Yarelis [facility] 09:00:00 [facility] Respiratory rate 2020-12-26 16 /min University of :00:00 [facility] Oxygen saturation 2020-12-26 100 /min [facility] of in Arterial blood 09:00:00 [facility] by Pulse oximetry [facility] Body weight 2020-12-26 53.978 kg University of :27:00 [facility] BMI 2020-12-26 24.04 kg/m2 University of 00:27:00 [facility] Systolic blood 2020-12-25 92 mm[Hg] [facility] of pressure 22:30:00 [facility] Branch Diastolic blood 2020-12-25 59 mm[Hg] University o f pressure 22:30:00 [facility] Heart rate 2020-12-25 91 /min University of :30:00 [facility] Respiratory rate 2020-12-25 14 /min University of :30:00 [facility] Oxygen saturation 2020-12-25 100 /min [facility] of in Arterial blood 22:30:00 [facility] by Pulse oximetry Branch Body temperature 2020-12-25 36.89 Yarelis [facility] 16:07:00 [facility] Body height 2020-12-25 149.9 cm University of 16:07: [facility] Body weight 2020-12-25 53.978 kg University of :: [facility] BMI 2020-12-25 24.04 kg/m2 University of 16:07:00 [facility] Systolic blood 2020-12-25 92 mm[Hg] [facility] of pressure 22:30:00 [facility] Branch Diastolic blood 2020-12-25 59 mm[Hg] University o f pressure 22:30:00 [facility] Heart rate 2020-12-25 91 /min University of :30:00 [facility] Branch Respiratory rate 2020-12-25 14 /min University of :30:00 [facility] Oxygen saturation 2020-12-25 100 /min [facility] of in Arterial blood 22:30:00 [facility] by Pulse oximetry Branch Body temperature 2020-12-25 36.89 Y[place]is [facility] 16:07:00 [facility] Body height 2020-12-25 149.9 cm University of 16:07:00 [facility] Body weight 2020-12-25 53.978 kg University of 16:07:00 [facility] BMI 2020-12-25 24.04 kg/m2 [facility] 16:07:00 [facility] Systolic blood 2020-07-26 146 mm[Hg] [facility] of pressure 20:54:00 [facility] Diastolic blood 2020-07-26 96 mm[Hg] University o f pressure 20:54:00 [facility] Heart rate 2020-07-26 91 /min [facility] of 19:55:00 [facility] Body temperature 2020-07-26 36.78 Yarelis [facility] 19:55:00 [facility] Respiratory rate 2020-07-26 16 /min [facility] 19:55:00 [facility] Body height 2020-07-26 172.7 cm University of 19:55:00 [facility] Body weight 2020-07-26 54.148 kg University of 19:55:00 [facility] BMI 2020-07-26 18.15 kg/m2 [facility] 19:55:00 [facility] Systolic blood 2020-07-15 119 mm[Hg] [facility] of pressure 23:00:00 [facility] Diastolic blood 2020-07-15 80 mm[Hg] University o f pressure 23:00:00 [facility] Heart rate 2020-07-15 79 /min [facility] 23:00:00 [facility] Respiratory rate 2020-07-15 20 /min [facility] 23:00:00 [facility] Oxygen saturation 2020-07-15 96 /min [facility] in Arterial blood 23:00:00 [facility] by Pulse oximetry [facility] Body temperature 2020-07-15 37.11 Yarelis [facility] 18:21:00 [facility] Body weight 2020-07-15 52.164 kg University of 18:21:00 [facility] BMI 2020-07-15 17.49 kg/m2 University of 18:21:00 [facility] Body temperature 2020-06-12 36.89 Yarelis [facility] 02:50:00 [facility] Respiratory rate 2020-06-12 24 /min [facility] 02:50:00 [facility] Body weight 2020-06-12 50.803 kg University of 02:50:00 [facility] BMI 2020-06-12 17.03 kg/m2 University of 02:50:00 [facility] Oxygen saturation 2020-06-12 98 /min [facility] in Arterial blood 02:50:00 [facility] by Pulse oximetry [facility] Systolic blood 2020-06-12 141 mm[Hg] [facility] pressure 02:50:00 [facility] Diastolic blood 2020-06-12 105 mm[Hg] University o f pressure 02:50:00 [facility] Heart rate 2020-06-12 108 /min [facility] 02:50:00 [facility] Systolic blood 2020-03-22 131 mm[Hg] [facility] pressure 16:32:00 [facility] Diastolic blood 2020-03-22 81 mm[Hg] University o f pressure 16:32:00 [facility] Heart rate 2020-03-22 70 /min [facility] 16:32:00 [facility] Body temperature 2020-03-22 37.06 Yarelis [facility] 16:32:00 [facility] Respiratory rate 2020-03-22 18 /min [facility] 16:32:00 [facility] Oxygen saturation 2020-03-22 97 /min [facility] in Arterial blood 16:32:00 [facility] by Pulse oximetry [facility] Body height 2020-03-22 172.7 cm patient stated [facility] 09:15:00 height on [facility] admission. [facility] Body weight 2020-03-22 54.942 kg bedscale upon [facility] 09:15:00 admission to [facility] BMI 2020-03-22 18.42 kg/m2 University 09:15:00 [facility] Heart rate 2023-04-24 122 /min [facility] 11:37:03 [facility] Respiratory rate 2023-04-24 16 /[facility] 11:37:03 [facility] Oxygen saturation 2023-04-24 95 /min [facility] Arterial blood 11:37:03 Medical Ce nter by Pulse oximetry Body temperature 2023-04-[address] [facility] 11:36:51 [facility] Systolic blood 2023-04-24 135 mm[Hg] [facility] pressure 11:36:30 [facility] Diastolic blood 2023-04-24 120 mm[Hg] [facility] pressure 11:36:30 [facility] Body weight 2023-04-[address] [facility] 03:00:00 [facility] Center Procedures Procedure Date / Time Performing Clinician Source Performed XR HAND 3+ VW RIGHT 2023-05-03 19:47:42 Fitzgerald, Yonas M [facility] CBC W/PLT COUNT & AUTO 2023-04-24 06:45:00 Dominique Jones C [facility] DIFFERENTIAL [facility] CBC W/PLT COUNT & AUTO 2023-04-24 06:45:00 Julianne Joneszish C [facility] DIFFERENTIAL [facility] CBC W/PLT COUNT & AUTO 2023-04-23 04:40:00 [place] Jonessh C [facility] DIFFERENTIAL [facility] BASIC METABOLIC PANEL 2023-04-23 04:40:00 Dominique Jones CH I [facility] CBC W/PLT COUNT & AUTO 2023-04-23 04:40:00 Dominique Jones C HI [facility] Center CBC W/PLT COUNT & AUTO 2023-04-22 04:00:00 [place] Jonessh C [facility] DIFFERENTIAL [facility] Center BASIC METABOLIC PANEL 2023-04-22 04:00:00 Dominique Jones CH I [facility] CBC W/PLT COUNT & AUTO 2023-04-22 04:00:00 Dominique Jones C [facility] DIFFERENTIAL [facility] FL FLUORO NON-SPECIFIC UP 2023-04-21 11:50:00 Mumtaz [facility] 1 HOUR Center TISSUE EXAM 2023-04-21 10:34:00 Mumtaz [facility] CYSTOSCOPY 2023-04-21 09:45:00 Mumtaz [facility] PROCEDURE W/ C-ARM 2023-04-21 09:45:00 Mumtaz [facility] STD PANEL - CT/GC RNA 2023-04-21 06:25:00 Dominique Jones CH I [facility] SCREEN, URINE 2023-04-21 06:25:00 Artur Wong [facility] CBC W/PLT COUNT & AUTO 2023-04-21 06:22:00 [place] Jonessh C [facility] DIFFERENTIAL [facility] BASIC METABOLIC PANEL 2023-04-21 06:22:00 Dominique Jones CH I [facility] HC LAB HIV-1 AG W/HIV-1&2 2023-04-21 06:22:00 Chalino Jones [facility] AB Ali [facility] HEPATITIS C ANTIBODY 2023-04-21 06:22:00 [facility] RPR 2023-04-21 06:22:00 [facility] HEPATITIS B PANEL 2023-04-21 06:22:00 [facility] MAGNESIUM 2023-04-21 06:22:00 [facility] PHOSPHORUS 2023-04-21 06:22:00 [facility]/INR 2023-04-21 06:22:00 [facility] TYPE AND SCREEN, 2023-04-21 06:22:00 [facility] AUTOMATED [facility] CBC W/PLT COUNT & AUTO 2023-04-21 06:22:00 Dyllan Felipe [facility] URINE CULTURE 2023-04-21 01:43:00 [facility] URINALYSIS W/ REFLEX 2023-04-21 01:43:00 Destinee [facility] URINE CULTURE Center MEDICATION CORRESPONDENCE 2023-03-29 05:01:00 Doctor Unassigned, No [facility] Name Medical Branch FL TIME OR 2023-03-27 17:22:00 Dyllan Weller [facility] (NON-REPORTABLE) Medical Branch FL TIME OR 2023-03-27 17:22:00 Janee [facility] (NON-REPORTABLE) Medical Branch METACARPAL ORIF 2023-03-27 15:52:00 Yonas Fitzgerald [facility] NERVE BLOCK 2023-03-27 14:54:47 Dyllan Pak [facility] Medical Branch ASSIGNMENT OF BENEFITS 2023-03-27 14:19:17 Doctor Unassigned, No [facility] Name Medical Branch XR SCAPULA LEFT 2023-03-25 21:23:00 Dyllan Weller [facility] XR SHOULDER 2+ VW LEFT 2023-03-25 21:23:00 Dyllan Weller [facility] XR HAND 3+ VW RIGHT 2023-03-25 21:23:00 Dyllan Weller [facility] ASSIGNMENT OF BENEFITS 2023-03-25 19:49:51 Doctor Unassigned, No [facility] XR HAND 3+ VW RIGHT 2023-03-16 15:18:48 Mojgan Shah [facility] NOTICE OF PRIVACY 2023-03-16 14:35:26 Doctor Unassigned, No [facility] PRACTICES [facility] CONSENT/REFUSAL FOR 2023-03-16 14:34:22 Doctor Unassigned, No [facility] DIAGNOSIS AND TREATMENT Name Medical Branch REFERRAL- 2023-03-04 05:01:00 Doctor Unassigned, No [facility] REQUEST/RESPONSE [facility] XR HAND 3+ VW LEFT 2020-12-26 09:21:04 Yonas Perea [facility] CT HEAD WO CONTRAST 2020-12-26 05:48:00 Yonas Perea [facility] ETHANOL 2020-12-25 21:54:[address] [facility] ETHANOL 2020-12-25 20:21:[address] [facility] POCT TEST 2020-12-25 18:07:00 Mynor Hollis [facility] ADC / LCC - DRUG SCREEN 2020-12-25 18:05:00 Mynor Hollis [facility] TRIAGE [facility] XR KUB 2020-12-25 17:06:[address] [facility] COVID-19 (ID NOW RAPID 2020-12-25 16:55:00 Mynor Hollis [facility] TESTING) Medical Branch BASIC METABOLIC PANEL 2020-12-25 16:19:00 Mynor Hollis [facility] (NA, K, CL, CO2, GLUCOSE, Medica l Branch BUN, CREATININE, CA) ETHANOL 2020-12-25 16:19:[address] [facility] CBC WITH DIFF 2020-12-25 16:19:[address] [facility] ASSIGNMENT OF BENEFITS 2020-07-26 19:40:02 Doctor Unassigned, No [facility] Name [facility] CT ABDOMEN PELVIS W 2020-07-15 22:13:14 Singer [facility] CONTRAST [facility] POCT TEST 2020-07-15 18:47:00 Singer [facility] COMP. METABOLIC PANEL 2020-07-15 18:45:00 Briggs, [facility] ([id number]) [facility] CBC WITH DIFF 2020-07-15 18:45:00 [facility] URINALYSIS 2020-07-15 18:45[facility] (ID NOW RAPID 2020-07-15 18:45:00 Singer [facility]) Medical Branch CONSENT/REFUSAL FOR 2020-07-15 18:15:15 [facility] XR CHEST 1 VW 2020-06-12 21:33:[address] [facility] NOTICE OF PRIVACY 2020-06-12 20:57:27 Doctor Unassigned, No [facility] PRACTICES Name Medical Branch CONSENT/REFUSAL FOR 2020-06-12 20:53:21 [facility] Name [facility] ECHO ROUTINE W/DOPPLER 2020-03-22 14:40:35 Alex Thomas [facility] COLOR Medical [facility] XR CHEST 1 VW COVID 2020-03-22 07:40:01 Shun Benedict [facility] CORONAVIRUS COVID-19 2020-03-22 07:16:00 Shun Benedict [facility] TESTING Medical Branch LIPASE 2020-03-22 07:14:00 Shun Benedict [facility] TROPONIN I 2020-03-22 07:14:00 Shun Benedict [facility] COMP. METABOLIC PANEL 2020-03-22 07:14:00 Shun Benedict [facility] ([id number]) [facility] CBC WITH DIFFERENTIAL 2020-03-22 07:14:00 Shun Benedict [facility] EKG-12 LEAD 2020-03-22 07:07:34 Shun Benedict [facility] EKG-12 LEAD 2020-03-22 07:01:19 Shun Benedict [facility] Plan of Care Planned Activity Planned Date Details Comments Source Future Scheduled 2023-08-02 Influenza Vaccine (#1) [facility] 00:[facility]:00 [code = Influenza Vaccine Me dical Center (#1)] Future Scheduled 2023-08-02 INFLUENZA VACCINE (Season [facility] Test 00:00:00 Ended) [code = INFLUENZA Med ical Center VACCINE (Season Ended)] Future Scheduled 2023-08-02 INFLUENZA VACCINE (Season [facility] Test 00:00:00 Ended) [code = INFLUENZA Med ical Center VACCINE (Season Ended)] Future Scheduled 2023-08-02 INFLUENZA VACCINE (Season [facility] Test 00:00:00 Ended) [code = INFLUENZA Med ical Center VACCINE (Season Ended)] Future Scheduled 2023-08-02 INFLUENZA VACCINE (Season [facility] Test 00:00:00 Ended) [code = INFLUENZA Med ical Center VACCINE (Season Ended)] Future Scheduled 2023-08-02 INFLUENZA VACCINE (Season [facility] Test 00:00:00 Ended) [code = INFLUENZA Med ical Center VACCINE (Season Ended)] Future Scheduled 2023-08-02 INFLUENZA VACCINE (Season [facility] Test 00:00:00 Ended) [code = INFLUENZA Med ical Center VACCINE (Season Ended)] Future Scheduled 2023-08-02 INFLUENZA VACCINE (Season [facility] Test 00:00:00 Ended) [code = INFLUENZA Med ical Center VACCINE (Season Ended)] Future Scheduled 2022-12-[address] [facility] Test 00:00:00 (12+) [code = DEPRESSION Med ical Center SCREENING (12+)] Future Scheduled 2022-12-[address] [facility] Test 00:00:00 (12+) [code = DEPRESSION Med ical Center SCREENING (12+)] Future Scheduled 2022-12-[address] [facility] Test 00:00:00 (12+) [code = DEPRESSION Med ical Center SCREENING (12+)] Future Scheduled 2022-12-[address] [facility] Test 00:00:00 (12+) [code = DEPRESSION Med ical Center SCREENING (12+)] Future Scheduled 2022-12-[address] [facility] Test 00:00:00 (12+) [code = DEPRESSION Med ical Center SCREENING (12+)] Future Scheduled 2022-12-[address] [facility] Test 00:00:00 (12+) [code = DEPRESSION Med ical Center SCREENING (12+)] Future Scheduled 2022-12-[address] [facility] Test 00:00:00 (12+) [code = DEPRESSION Med ical Center SCREENING (12+)] Future Scheduled 2022-12-[address] [facility] Test 00:00:00 (12+) [code = DEPRESSION Med ical Center SCREENING (12+)] Future Scheduled 2022-08-02 INFLUENZA VACCINE (#1) [facility] [code = INFLUENZA VACCINE Sc dical Center (#1)] Future Scheduled 2021-12-[address] [facility] 00:00:00 (12+) [code = DEPRESSION Med ical Center SCREENING (12+)] Future Scheduled 1999 Screening for malignant [facility] 00:00:00 neoplasm of cervix Medical C enter (procedure) [code = 912160480] Future Scheduled 1999 Screening for malignant [facility] 00:00:00 neoplasm of cervix Medical C enter (procedure) [code = 348308070] Future Scheduled 1999 Screening for malignant [facility] 00:00:00 neoplasm of cervix Medical C enter (procedure) [code = 068883634] Future Scheduled 1999 Screening for malignant [facility] 00:00:00 neoplasm of cervix Medical C enter (procedure) [code = 911378408] Future Scheduled 1999 Screening for malignant [facility] 00:00:00 neoplasm of cervix Medical C enter (procedure) [code = 094708010] Future Scheduled 1999 Screening for malignant [facility] 00:00:00 neoplasm of cervix Medical C enter (procedure) [code = 436236681] Future Scheduled 1999 Screening for malignant [facility] 00:00:00 neoplasm of cervix Medical C enter (procedure) [code = 079644250] Future Scheduled 1999 Screening for malignant [facility] 00:00:00 neoplasm of cervix Medical C enter (procedure) [code = 882760109] Future Scheduled 1999 Screening for malignant [facility] 00:00:00 neoplasm of cervix Medical C enter (procedure) [code = 690418404] Future Scheduled 1997 DTAP/TDAP/TD VACCINES ([address] [facility] 00:00:00 - Tdap) [code = Medical Cent er DTAP/TDAP/TD VACCINES (1 - Tdap)] Future Scheduled 1997 DTAP/TDAP/TD VACCINES ([address] [facility] 00:00:00 - Tdap) [code = Medical Cent er DTAP/TDAP/TD VACCINES (1 - Tdap)] Future Scheduled 1997 DTAP/TDAP/TD VACCINES ([address] [facility] 00:00:00 - Tdap) [code = Medical Cent er DTAP/TDAP/TD VACCINES (1 - Tdap)] Future Scheduled 1997 DTAP/TDAP/TD VACCINES ([address] [facility] 00:00:00 - Tdap) [code = Medical Cent er DTAP/TDAP/TD VACCINES (1 - Tdap)] Future Scheduled 1997 DTAP/TDAP/TD VACCINES ([address] [facility] 00:00:00 - Tdap) [code = Medical Cent er DTAP/TDAP/TD VACCINES (1 - Tdap)] Future Scheduled 1997 DTAP/TDAP/TD VACCINES ([address] [facility] 00:00:00 - Tdap) [code = Medical Cent er DTAP/TDAP/TD VACCINES (1 - Tdap)] Future Scheduled 1997 DTAP/TDAP/TD VACCINES ([address] [facility] 00:00:00 - Tdap) [code = Medical Cent er DTAP/TDAP/TD VACCINES (1 - Tdap)] Future Scheduled 1997 DTAP/TDAP/TD VACCINES ([address] [facility] 00:00:00 - Tdap) [code = Medical Cent er DTAP/TDAP/TD VACCINES (1 - Tdap)] Future Scheduled 1997 DTAP/TDAP/TD VACCINES ([address] [facility] 00:00:00 - Tdap) [code = Medical Cent er DTAP/TDAP/TD VACCINES (1 - Tdap)] Future Scheduled [...] HEPATITIS C Medical Center SCREENING] Future Scheduled [address] [facility] 00:[facility]:00 virus screening Medical Cent er (procedure) [code = 215221564] Future Scheduled [address] [facility] 00:00:00 Counseling and Screening Med ical Center (12+) [code = Tobacco Cessation Counseling and Screening (12+)] Future Scheduled [address] [facility] 00:00:00 Counseling and Screening Med ical Center (12+) [code = Tobacco Cessation Counseling and Screening (12+)] Future Scheduled [address] [facility] 00:00:00 Counseling and Screening Med ical Center (12+) [code = Tobacco Cessation Counseling and Screening (12+)] Future Scheduled [address] [facility] 00:00:00 Counseling and Screening Med ical Center (12+) [code = Tobacco Cessation Counseling and Screening (12+)] Future Scheduled [address] [facility] 00:00:00 Counseling and Screening Med ical Center (12+) [code = Tobacco Cessation Counseling and Screening (12+)] Future Scheduled [address] [facility] 00:00:00 Counseling and Screening Med ical Center (12+) [code = Tobacco Cessation Counseling and Screening (12+)] Future Scheduled [address] [facility] 00:00:00 Counseling and Screening Med ical Center (12+) [code = Tobacco Cessation Counseling and Screening (12+)] Future Scheduled [address] [facility] 00:00:00 Counseling and Screening Med ical Center (12+) [code = Tobacco Cessation Counseling and Screening (12+)] Future Scheduled [address] [facility] 00:00:00 Counseling and Screening Med ical Center (12+) [code = Tobacco Cessation Counseling and Screening (12+)] Future Scheduled 1979-02-22 COVID-19 VACCINE (#1) [facility] [code = COVID-19 VACCINE Med ical Center (#1)] Future Scheduled 1979-02-22 COVID-19 VACCINE (#1) [facility]00 [code = COVID-19 VACCINE Med ical Center (#1)] Future Scheduled 1979-02-22 COVID-19 VACCINE (#1) [facility]00 [code = COVID-19 VACCINE Med ical Center (#1)] Future Scheduled 1979-02-22 COVID-19 VACCINE (#1) [facility]00 [code = COVID-19 VACCINE Med ical Center (#1)] Future Scheduled 1979-02-22 COVID-19 VACCINE (#1) [facility]:00[facility]00 [code = COVID-19 VACCINE Med ical Center (#1)] Future Scheduled 1979-02-22 COVID-19 VACCINE (#1) [facility]:00[facility]00 [code = COVID-19 VACCINE Med ical Center (#1)] Future Scheduled 1979-02-22 COVID-19 VACCINE (#1) [facility]:00[facility]00 [code = COVID-19 VACCINE Med ical Center (#1)] Future Scheduled 1979-02-22 COVID-19 VACCINE (#1) [facility] 00:00:00 [code = COVID-19 VACCINE [facility] (#1)] Future Scheduled 1979-02-22 COVID-19 VACCINE (#1) [facility] 00:00:00 [code = COVID-19 VACCINE [facility] (#1)] Encounters Start End Encounter Admission Attending Care Care Encounter Source Date/Time Date/Time Type Type Clinicians Facility Department ID 2021-09-30 Emergency [facility] [id number] Univers 19:08:09 [facility]y [facility] 2021-09-29 Emergency [facility] [id number] Univers 12:33:46 ity [facility] 2021-09-29 Emergency [facility] [id number] Univers 06:13:55 ity of [facility] 2021-09-29 Emergency [facility] [id number] Univers 06:12:05 ity [facility] 2020-05-12 Inpatient [facility] [id number] [facility] 00:35:00 93 [facility] 2020-02-17 Inpatient [facility] PRETTY [id number] [facility] 15:56:00 19 [facility] 2023-06-24 2023-06-24 [facility] [id number] Univers 16:10:00 16:10:00 [facility] 2023-06-10 2023-06-10 Out[facility] [id number] Univers 11:30:00 11:30:00 YONAS [facility] 2023-06-02 2023-06-02 [facility] 1.2.840.114 [id number] Univers 00:00:00 00:00:00 Yonas M SPECIALTY 350.1.13.10 [place] [phone] Sc dical STEVENSON [address] [place] [address] 2023-05-28 2023-05-28 [facility] 1.2.840.114 [id number] Univers 00:00:00 00:00:00 Yonas M SPECIALTY 350.1.13.10 [place] [id number] Sc dical VICTORY 198 [facility] 2023-05-28 2023-05-28 [facility] 1.2.840.114 [id number] Univers 00:00:00 00:00:00 Dyllan SPECIALTY 350.1.13.10 [place] [phone] Sc dicblair VICTORY 198 [facility] 2023-05-15 2023-05-15 [facility] 1.2.840.114 [id number] Univers 00:00:00 00:00:00 Yonas M SPECIALTY 350.1.13.10 [place] [phone] Sc maryam COVARRUBIASY 198 [facility] 2023-05-13 2023-05-13 [facility] 1.2.840.114 [id number] Univers 00:00:00 00:00:00 Yonas M SPECIALTY 350.1.13.10 [place] [phone] Sc dicblair COVARRUBIASY 198 [facility] 2023-05-09 2023-05-09 [facility] 1.2.840.114 [id number] Univers 00:00:00 00:00:00 Yonas M SPECIALTY 350.1.13.10 it[place] [id number] Sc dicblair VICTORY 198 [facility] 2023-05-03 2023-05-03 [facility] 1.2.840.114 [id number] [facility] 14:33:59 23:59:00 Encounter Yonas M PRIMARY 350.1.13.10 [place] [phone] Sc dical [address] 2023-05-03 2023-05-03 [facility] 1.2.840.114 [id number] Univers 14:00:00 14:10:00 Visit Yonas M PRIMARY 350.1.13.10 [place] [id number] Sc dical [address] [place] [address] 2023-05-03 2023-05-03 Outpatient Itzel FITZGERALD [facility] [id number] Univers 14:00:00 14:00:00 YONAS garrett [facility] 2023-04-30 2023-04-30 Telephone Lia [facility] 1.2.455.777 [id number] Univers 00:00:00 00:00:00 Yonas Arnold [facility] 350.1.13.10 it of [facility] 4.2.7.2.686 [facility] AT [phone] Sc maryam [address] 2023-04-20 2023-04-24 Hospital ER AnishArtur nelson [facility] [id number] [facility] 23[facility]23[facility]00 15:44:00 Encounter Rakan Zarate, [facility] 2023-04-20 2023-04-24 [facility] Artur Wong [facility] [id number] [facility] 23[facility]23:00 15:44:00 Encounter Rakan Zarate, [facility] 2023-04-20 2023-04-24 Inpatient ER SHELIA LOVE [facility] [id number] [facility] 23:23:00 15:44:00 [facility] 2023-04-22 2023-04-22 Outpatient Itzel FITZGERALD [facility] [id number] Univers 10:20:00 10:20:00 YONAS tucker [facility] 2023-04-21 2023-04-21 Anesthesia Kiesha [facility] [id number] 09:22:00 12:02:00 Event [facility] 2023-04-21 2023-04-21 Anesthesia Kiesha [facility] [id number] 09:22:00 12:02:00 Event [facility] 2023-04-21 2023-04-21 Surgery Mumtaz [facility] [id number] 09:00:00 11:26:00 [facility] 2023-04-21 2023-04-21 Surgery Mumtaz, [facility] [id number] 09:00:00 11:26:00 Chance [facility] 2023-04-20 2023-04-20 Travel [facility] [id number] [facility] 00:[facility]00 00:00:00 [facility] 2023-04-20 2023-04-20 Travel [facility] [id number] [facility] 00:[facility]00 00:00:00 [facility] 2023-04-08 2023-04-08 [facility] 1.2.840.114 [id number] Univers 11:18:10 23:59:00 Encounter Yonas Arnold SPECIALTY 350.1.13.10 ity of CARE 4.2.7.2.686 [facility] AT [phone] Sc maryam GAMINO 809 [facility] 2023-04-08 2023-04-08 [facility] [id number] Univers 11:30:00 12:05:00 YONAS tucker [facility] 2023-04-08 2023-04-08 Office [facility] 1.2.840.114 [id number] Univers 11:30:00 12:05:00 Visit Yonas ADAMS 350.1.13.10 ity of CARE 4.2.7.2.686 [facility] AT [phone] Sc maryam GAMINO 198 [facility] 2023-03-29 2023-03-29 Orders Doctor SYLVIA 1.2.840.114 [id number] Univers 00:00:00 00:00:00 Only Unassigned, DERIAN 350.1.13.10 ity of [place] [facility] 4.2.7.2.686 Jose [id number] [place] dorothy [address] 2023-03-27 2023-03-27 [facility] [id number] Univers 09:19:00 13:42:00 YONAS tucker [facility] 2023-03-27 2023-03-27 [facility] 1.2.840.114 [id number] Univers 09:19:00 13:42:00 Encounter Yonas Arnold [facility] 350.1.13.10 [place] [facility] [phone] [address] ([facility]) 2023-03-27 2023-03-27 Anesthesia Ashely Myrick [facility] 1.2.840 .114 [id number] Univers 11:08:00 12:53:00 Event Marlene-Antonio Jama SPECIALTY 3 50.1.13.10 [place] [phone] Sc dicblair COVARRUBIAS 020 [facility] 2023-03-27 2023-03-27 Surgery [facility] 1.2.840.114 [id number] Univers 10:55:00 12:38:00 Yonas M SPECIALTY 350.1.13.10 [place] [id number] [facility] 020 [facility] 2023-03-27 2023-03-27 Orders Doctor SYLVIA 1.2.840.114 [id number] Univers 00:00:00 00:00:00 Only Unassigned, DERIAN 350.1.13.10 ity of [place] [facility] 4.2.7.2.686 Jose as [id number] [address] 2023-03-25 2023-03-25 [facility] 1.2.840.114 [id number] Univers 16:12:45 23:59:00 Encounter Yonas M SPECIALTY 350.1.13.10 [place] [id number] Sc maryam [facility] 809 [facility] 2023-03-25 2023-03-25 [facility] 1.2.840.114 [id number] Univers 16:12:33 23:59:00 Encounter Yonas M SPECIALTY 350.1.13.10 [place] [id number] Sc maryam [place] [address] [facility] 2023-03-25 2023-03-25 Outpatient R [facility] [id number] Univers 15:10:00 17:04:47 [facility]-25 2023-03-25 Office [facility] 1.2.840.114 [id number] Univers 15:10:00 17:04:47 Visit Yonas Arnold SPECIALTY 350.1.13.10 ity of CARE 4.2.7.2.686 [facility] AT [phone] Sc maryam GAMINO 198 [facility] 2023-03-25 2023-03-25 Hospital [facility] 1.2.840.114 [id number] Univers 16:10:00 16:11:00 Encounter Yonas Arnold SPECIALTY 350.1.13.10 ity of CARE 4.2.7.2.686 [facility] CENTER AT [id number] Sc maryam GAMINO 809 [facility] 2023-03-25 2023-03-25 Orders Doctor SYLVIA 1.2.840.114 [id number] Univers 00:00:00 00:00:00 Only Unassigned, DERIAN 350.1.13.10 ity of [place] [facility] 4.2.7.2.686 Jose as [phone] [facility] [address] 2023-03-16 2023-03-16 Emergency X PABLO, K [facility] ERT [id number] Univers 09:41:00 12:36:00 ity of [facility] 2023-03-16 2023-03-16 Emergency Pablo, K [facility] 1.2.840.114 [id number] Univers 09:41:00 12:36:00 Loyda VELAZCO 350.1.13.10 i ty of [place].2.7.2.[place] [phone] [facility] [address] 2023-03-04 2023-03-04 Orders Doctor SYLVIA 1.2.840.114 [id number] Univers 00:00:00 00:00:00 Only Unassigned, DERIAN 350.1.13.10 ity of [place] [facility] 4.2.7.2.686 Jose as [phone] [facility] [address] 2021-11-16 2021-11-18 Inpatient ER KATE [facility] Urology [id number] [facility] 02:50:00 15:40:00 GRAZYNA 2020-12-252020-12-26 Emergency Brit, [place] 1.2.026.020 [id number] 18:26:00 04:04:00 Yonas B CENTER 350.1.13.10 4.2.7.2.686 [id number] 014 2020-12-25 2020-12-26 Emergency Brit, [place] 1.2.175.801 [id number] Univers 18:26:00 04:04:00 Yonas B CENTER 350.1.13.10 [place] [id number] [address] 2020-12-25 2020-12-25 Emergency Harkey, [facility] 1.2.488.736 [id number] 10:03:00 18:22:00 [facility] 350.1.13.10 League 4.2.7.2.[address] [place] [id number] [address] ([facility]) 2020-12-25 2020-12-25 Emergency Harkey, [facility] 1.2.673.731 [id number] Univers 10:03:00 18:22:00 [facility] 350.1.13.10 it y of [place]2.[place] [facility] [id number] [address] ([facility]) 2020-12-25 2020-12-25 Emergency X HARKEY, [facility] ERT [id number] Univers 10:03:00 18:22:00 MYNOR ity [facility] 2020-08-17 2020-08-17 [facility] 1.2.840.114 [id number] 06:29:56 23:59:00 Encounter Roshunda R SPECIALTY 350.1.13.10 CARE 4.2.7.2.686 CENTER AT [id number] [address] 2020-08-17 2020-08-17 [facility] 1.2.840.114 [id number] Univers 06:29:56 23:59:00 Encounter Roshunda R SPECIALTY 350.1.13.10 [place] AT [id number] Sc maryam [address] 2020-08-17 2020-08-17 Outpatient R PAM [facility] [id number] Univers 00:00:00 00:00:00 DALIA tucker [facility] 2020-08-17 2020-08-17 Outpatient R PAM [facility] [id number] Univers 00:00:00 00:00:00 DALIA tucker [facility] 2020-08-10 2020-08-10 Telephone [facility] 1.2.729.936 [id number] 00:00:00 00:00:00 Dalia R RETAIL WIRELESS SALES REPRESENTATIVE 350.1.13.10 REGIONAL 4.2.7.2.686 MATERNAL [phone] & CHILD [address] [place] [address] 2020-08-10 2020-08-10 Telephone Pam [facility] 1.2.633.455 [id number] Univers 00:00:00 00:00:00 Dalia R RETAIL WIRELESS SALES REPRESENTATIVE 350.1.13.10 ity of [facility] 4.2.7.2.686 Jose as MATERNAL [phone] Med ical & CHILD [address] [place] [address] 2020-07-26 2020-07-26 Office [facility] 1.2.840.114 [id number] Univers 14:44:48 15:48:25 Visit Dalia R RETAIL WIRELESS SALES REPRESENTATIVE 350.1.13.10 ity of REGIONAL 4.2.7.2.686 Jose as MATERNAL [phone] [facility] ical & CHILD [address] [place] [address] 2020-07-26 2020-07-26 Outpatient [facility] [id number] Univers 14:00:00 14:00:00 DALIA tucker [facility] 2020-07-26 2020-07-26 Orders Doctor SYLVIA 1.2.840.114 [id number] Univers 00:00:00 00:00:00 Only Unassigned, DERIAN 350.1.13.10 ity of [place] [facility] 4.2.7.2.686 Jose as [id number] [address] 2020-07-15 2020-07-15 Emergency [facility] 1.2.421.885 [id number] Univers 13:25:00 19:02:00 Dhruv Velazco 350.1.13.10 i ty of [place] 4.2.7.2.686 [facility] [id number] [address] 2020-06-14 2020-06-14 Telephone SYLVIA Shi 1.2.840.114 [id number] Univers 00:00:00 00:00:00 Kaylah MENARD 350.1.13.10 i ty of [facility] 4.2.7.2.686 Jose [id number] [address] 2020-06-12 2020-06-12 Emergency [facility] 1.2.840.114 [id number] Univers 15:56:18 17:25:00 Andrew Christian 350.1.13.10 i ty of [place] 4.2.7.2.686 [facility] [phone] [address] 2020-06-11 2020-06-11 Emergency [facility] 1.2.922.383 [id number] Univers 21:45:46 22:38:00 Dhruv Velazco 350.1.13.10 i ty of [place] 4.2.7.2.686 [facility] [id number] [address] 2020-04-07 2020-04-07 Outpatient R NICOLE [facility] [id number] Univers 13:30:00 13:30:00 ELO porter [facility] 2020-04-07 2020-04-07 Telemedici [facility] 1.2.840.114 [id number] Univers 07:52:01 08:22:01 ne Visit Elo Anish Christian 350.1.13.10 ity of [place] 4.2.7.2.686 [facility] [phone] Sc dical [address] 2020-04-04 2020-04-04 Emergency E TON MADAI [address] 7504 BL 16:52:00 19:36:00 DAVID 2020-03-29 2020-03-29 Outpatient R AL [facility] [id number] Univers 09:40:00 09:40:00 CHRIS porter [facility] 2020-03-29 2020-03-29 Telemedici [facility] 1.2.840.114 [id number] [facility] 07:59:20 08:14:20 ne Visit Chris Velazco 350.1.13.10 ity of [place] 4.2.7.2.686 [facility] [phone] Sc dical [facility] 059 [facility] 2020-03-22 2020-03-22 Emergency Shun Benedict [facility] 1.2.840 .114 [id number] [facility] 02:10:55 13:40:00 Sanjay Lind 350.1.13.10 ity of [place] 4.2.7.2.686 [facility] [id number] [facility] [address] 2020-03-22 2020-03-22 Outpatient X DIOGO [facility] [id number] [facility] 02:10:55 13:40:00 [facility] 2019-08-07 2019-08-07 Emergency E MHCY [facility] 7503 [facility] 13:27:00 13:27:00 2019-04-08 2019-04-08 Emergency E MHCY [facility] 7502 [facility] 14:22:00 14:22:00 2019-03-31 2019-03-31 Emergency E MHCY [facility] 7501 [facility] 14:37:00 14:37:00 Results Test Description Test Time Test Comments Results Result Comments Source Tissue Exam 2023-05-01 09:04:09 Test Item Value Reference Range Interpretation Comme nts Case Report (test code = 104) Surgical Pathology Report Case: [id number] Authorizing Provider: Chance Pandya MD Collected: 04/21/2023 10:34 AM Ordering Location: [address] Received: 04/22/2023 08:42 AM Service Pathologist: Quyen Aguiar MD Specimens: A) - Omentum B) - Soft Tissue, Other, bladder injury C) - Foreign Body, foreign body for ID DIAGNOSIS (test code = 3220) [id number] p ebJLkVEypyyZlBKdaiJegFEHxJQDdFG9kbOwwjL d8nJgtDRHoesP0jWXmAIkjw2smPCV9g6sdxanxV ZLcFGpsXy5sgJYppLgcDgQgLQTeODs3bA70YYEk wU1ngXCeAJs9BGHzoKVbkeJhNjVyPJSnnIDslQP 5LTRtKM3nswoxLJwbVNweFZVcwuL0MBUzfDJvO9 NmZKGcKO0izwmvPJS4OHmjAXTfEKW7RvPwVTZen 0Szqwp3PaBwdVGoGFbrjEZcwmalurOfEKQcCQ4V AW3OPW1cQXTFW0RGGJansDVdYYFnJlVdHujVNb0 MXLkOA0MPDDOJL0IDGPQBVHNAMUUYTGYSLHCIOV BUMMGUXdiVGMvIThuJPE4DEUqBHiQUEcBjLhvHQ brVMPSkuhbrPWTuIh5dDFUGRjCNFNAYAFCJRTKT RZZQK1OYGLfnC8jXMIGTZ1PiT4FFJ5tXOLKDAYV CWJTBW3nCXjokvZLlWJVrXqCeGYJKVhTHCUQBRH FSYLUDWZVYV2WMNKZDDZXBJYALTXREUUZIQSGHB BKVAqgPBGtGSifHGL1NRWiHZlggRZCUT0IJWDJM HEnbaCFgPCXmNbQgNjqPOmsRWHVIYDLJB3ORCTC VVDDJF2ZJW9utYPYiFGKkUXApOTSvQADnLI9DAh 7FLDYLPMTAHS9SE66GEMTMMTQQVGUBTLZBCWAZT GNLH9OYAZzEGMgiR1eBWonRY2dgHEZbcQXfXVBg MQKNVB6MVqouXjzBWNVQAzukSb9LKBaIXnZUW5U YEMZWKS9XGuZCOJRxspzyrPzpPTOpVu2PLLdWVl VAX3ZIISnBC7QKPWoyZKVECaHEFdiNLKEqCLjVB GFBFJTHMTSCGt9MXeVVJIWQWvvCMJpNDmswzOHi fOshssSvVDtfw7DzCGywCFLcKR0oqMxsSJVfFE3 cINHvG5hbqU4pecn7JzYkFKZlZuG4XSLqcfI1Cy i3SLWdUGycy0ltm5WyZZDzGEg6mUjoYePjUZYgy 8fpooEgLfDpBSMsGJMcYMCwlZYqY667l1bcu1dd btZyyXY1XBLtXRS8YIvyhpDqygQ4FQssbPUcJrO 3KFpychJuXSthndZltqSyFcw8HEJxM325DVG1fM bzv3uoCWJ4WXFwCUNmHzXiMp8ujEUhI423CEAbG CYPNFTohAn2WURbhmVowaIrnTYGk009H036l9oc VCEjrkEuoXuNhsald3woX710CCOkmHWsnaNqKyO tEQSptUXurHE5BQBjLY3ghhfsKGkuLHmxWYVnfv C0RQKfsYPmG6DfHAEgIL7zqpikKNM6DPgcNCOdG NY2BkOoIGQbn3Gzadk0KfGckb7pwf84YAK0c8Gc uIxgHYB0EZG6NiNkQg6eaDUrGMIcHW4jOdEtwFE bPCAwfn62pIpwBEirHBM3DVJwhzKbd3Bzr4xnRe HbgfUhK4ncC1FkNCLeSAExSIKtQwCbutKas9Lqz 2KxfLZqqVe7y0pdJWTsYNZpdMhvx1xpXNJ5VHFg cBXlE0fvhF2pFTAiFX1rkangy8kkYOaqWEkdZRO pnVS9oyP1SKRqzHXeU2IrzA1nKHRvVBfrVIYkyb e5VaMrGv0auYEzcFodJMkvFnkgZAkuBHXtuiCgy nRccGduZGVjXHBsYWluXHBsYWluXGYwXGZzMjRc cWxcbGFuZzEwMzNcaGljaFxmMVxkYmNoXGYxXGx iA1bzHzLmFjRbJeq9SUUvnBDmFBXwTgg6SSOxdY JxHKRLqErqnH2lPGLsyEdpgS3zlPZ7BBNvtjWtt YLLpV8cRXSDpX6eQfV1NQMnHvc1XDF6TqDnaQVt fX0= CPT Code(s) (test code = 3357) n1xhfOBfVAPykCPiVUMoTJhfiyXqNRPgaBFy Z3B vwjbtFGchUX5oQF7caLjmhLAkdKHpGVDiPpYmd6 lvn213eUHir2jcJDJFxczccIi1vOrnD07gf1F9M nimV28xaFLmJPI7EJNjRVVkoBNxSWKbBFM7LARz vZMiD2vjKOBlBO7digfwSEdwMAxqQVKszMZ7JWN tdCMlT8YvPQRqTYafFXJchzh4BmOcLo3zsVFnkV rrVKinZTBqHSNjUQavSFMiEvKbRB4kGLrlMWAmX VOlaUXoJTToPYy4OjA1EWblCXSdowBJPgB2GRPj MCBYMVxwYXJ9 CLINICAL HISTORY (test code = 9665) u5mijOHhWMEmnPKxJFUzMRkbcgJjGPO ecKAtN9L pgdmpTAnnYN8dMN2efBmhtPHfdIAjBRKcEqUij6 tyz611yDWdr7qmZXUHrkuqlSb4jNqfV48rq6W6F xcuW7vhKDBgENmeIPDxLRvieCUaVSw6VAEwqNQp deTlMvViPTMsaXKcgVQ3BTBmXT1cdyjvUBhbFVu nYCHyjqN5WYBtgBKkE5JfSMFvAN6kmwrdRLQ6HS gmIKUiZWK5PbNdURNci4Ogfpg9RhRfyUDzCVyar SCthCfezK5gQpIqTTnbDzPhMb1tENglacLoo0F4 IGluIGJsYWRkZXJccGFyfQ== GROSS DESCRIPTION (test code = k2cubGOgGWGdqJBlPJSfCYxrzhYkZTJskDKo Z3B [id number]) tvoqnGGspES1jFY8gpOidrOGamSFkAREmKcSdh7 kcs211qVLdc4vyFIGPedetgFx6uPraM10bh3U3C sgpT60tbCAhJFK5VQWhQTGzqGNrBNIxFKG1MXFb gGScM1tuUWSjOD8fnuzmSJxxVImlDIKshGV0LYE ozMZuC8LvJAWlADyxEGYwkpd0ZlVlKc0brMGubG jpGFxaZodhcFrce6WeoOVlDDbeORZcRMWuQReiA ZThW8NNRXDgDRBcZZssOEQiWEGJZFCvOAn2KNs8 RUYNSJDoTQAxAZl9DyXhZZDvQBIQXILcEqDcPET oCUwrVBtcjQAvZGOmCIWqISKqRBwjjoR0c6xhZJ UtvYXoJWT2YIethJKcFBJoCYEtYKjhQeQRElZiB bMdLLTqZYI4AhVuCHk1NMejY2KIRQWuRTW8Gays GZY9PxE2RNg1AVHMOr3dKcF9QsE4RvGpLKN2WEQ 0LZgclKPnMZhku2WkBdUwLDQbZZqzypE1AZSrhg MebVivcY3uDbCmJbUSXiCPkTOixGMsDQOrukezO HQzJJKhMiJnLTWzW5vuNwGiLNHlPvRvSVYlX1he BMXvMYRwWKnbGRSnKrBtPpWxMQm7YOVbfL9gEn0 lpNClqN9xmITcHYmcSAP0xFIgOABoMDAtHFWzJV 19Z7YrorAjVUbbCROoDOSuwP7wID80cPSgrfPqv vLsNb9cAH79qG5gIPoyPFRsPr41PBbvED72JTnh RJ01JHLuVYHzxlVic78hs2GrdSLqMSnetMxrmvr mUonotq1pWTR0yNRuoUHytYAxCXqglBzkMEImaF Ark8RwDP2ucR12MA7eCOEdsZScZQ73TVPhEoRpx CAchHrjbcWxOTn8QJQ4HJ5tVJJoM6Nyf01ghaff fiZ2QOJqgbDlNCKrxw24DFifj0eydI0rg6vbumE puQKiVNLdRzMrWzG6rSjcK3W9HLE9piSjA7MpQM QVssXpwZAtgxE5IDZaRYCym09vSSEdMSWpSPZtf GlmaWVkLiAgVGhlIHNwZWNpbWVuIGlzIGVudGly SFq0SPH4Hq4usNFjGKJopeMMKO11OUGafTWvLQQ 5HA5ndPyfLRE8BEciGPGrM4IaT3LpTThtTEG8GS AdXbKfPSKjFG5HVmSbCMHhKSP9HmfxJaX9HYy4M FHVRqQdMpKdMoYdPKIsGcEgMPn6VMs8CNwEZeH0 Ejg2QiO5UmBpQCE6RZFeQQs0LIMgBYzuqpQxDGn vVfegYFyuD20yrOGwUFgpTkWxSNfwlYojELMvXS L0AYInBpFfBu5yG17esQGQqEHtqKIkII65cBXzO CIxkjrjNATsVVToTjEhAAVxL3gzSvGbUEClONjy VYPtCkClUkFcTBk1LYHtaS2lFc9vhDEnfN3edHZ fOLerAOZ9iLRtGSEcKLFpKHEaQO20Y6YdzwNiYY qdCIEoBTEsuT3zRC47eVDtkrQxayDaWaRvSKQjB ODsvU0zxZR2VmYniuZpFrH9bz5cbAGjaCYlRCXg KYhtAW08erInYuEmxBDywFPwmVwauPFlj6WpfRG tpUTbApyvGCDuafGtqCBqd0CzeNpnaEGpKI8oEK Unum1dMMVhXP28CwHvU28brC0uZ0JxXTRgc5WrQ KboAO2fpI6bCoLfYUzgNXTjFWeoUC43oyXcosZv QFfoMwRmNM64pEPxxUkzyT4dOUKuRin1HTdxMik wF9qgMC9sERlhKNEfPhCtJ1StdXgnjrcwIsSnPL UvYNzcTZKslDApUFJftjshBBZeU1RafNkdxQQyl 5FiuFUveJQzANshyJHni9zhmvGclCXtEBWwPcAg jIVcC9P9FGN7zzCcK8ZiJWNMdEVgn5DfN2psUF8 tgGGvAI45mGRxsGyzj4CndJo2aZDvCXGeODQoyK bgy1A4ZTFnbucdINDgRPJmkyJXCBO5kY8xNYJdG CQfgABlCNBrUiOgUBMoDSufHD37LLTfJNZaRXhs gKLjCVI4pX0mIOPnqYDxHJIbPVL7NiLnKRFlSBm rGH39BJSfSEAtXQyleFMaYGI0eU8dOPAzbYDoVO VsRlWrOWNwH1baXMGzRBF0NfHvUMSoHMgvPM95m 6dgqCqxi4SgqLCbTV6geNMst9cbIXCrgVTdAYI8 IFxcaWQgNTEwMDIgXFxkYiBPVlIgIiAxMDExODI 3ZsStRQi3ZCzsO2KIXAJmQNX5YfadTsjsIlG7MQ c1SVJYIo1qBoS2XcS0BxT6OEV6DAQ1XUthmGLpI Kmgj9ZxIeIlHWSkUVgtnjQ8ZXLdwuPau7ZfZKEo WGWcN0qhTsUlTDsgpfRcGGIpANNkohXnE33mTn5 kyHsyWXKwiAFcHLphWdBlCXJfiGYRw1UbAGohgH OxtwbcgeOdGXJpG0QavtUkNFMmEIQhTWvxCxLcB FNab7j6nAC5vVOgdTL9uZNubXfyTR1jeLTvJLYb Q9Ral0pyvtDyuJ9fJHJgNZ0jKQRmu8FaiSboNMC hLZgcUClwTENtOOKrAjYebQDsojGkIN3ovIuuTz duYU5kEIGeCIEpvJLbqgLyhLQzZDZfqoTexTIus YQqQLJ0aPjkAULoA1RfKHTsrwTuC49rXz6vbQKf e95niYY2CF07MXuyfJqkcPLtH7DaPQR8fBE3DMC wf9EaRSvdTZOdLESph4nbc9zcnkskqK7uC9UbzA Msj554WLIudajgJLCuUEUjogLXQ0QRPemRZuvuq ORaHDmky3jwxXEubIaoGGJfHqTHQN7GJCOvyvhu AWEoBPRkgv7ffwJodO93x0fyFFWnAMalOWAmc2E vJwZhFu8lq1PbvCqswwLeNHPqLME4Bp3boJGqQW 8tCSTtmAZzxSNjbUUdnmOph5XyY3Fxy6NqLAfkj UwhPAMnf54dc06fyX5juSSpMQObsvksHTUqKWBa sNMUp5OgSTFDfChfroQWxtp1BLbuWYFmDDPHAIV SGYYkFRHPRCv8FCZeiIHdVAW6PY1vvTnuXQCzP9 BhV9DqsrM5OIEboq2= MICROSCOPIC DESCRIPTION (test code = [id number]PcXT KndEEdL1I 337) lcvlhWGqcRN2nVK6lvNuiiBSthIPoQJMjDhBkv8 tfu101yUYpd2zxNUMOfqzjwWj0hNblP34fk1Z4Q yxpE00mqEUkZWZ7YYQxUXExpVXgKZRyUPS4EOCn dYWsK5foVMBwJR7razybTCmmMFrcUTRpiPE2JRU nlVJfX1GvTYZmFZhmQAJxrpv1DcThQq9icNAisM voWIdgVGDoBXGrLXliRYDyLwUbJT0KDaJWCBFuj 1PcNZCjYWuiYHBnwOKfYFMiVA0glXYinJRfyFYu YmxlLlxwYXJ9 Gross assessment was performed at (test [facility] enter, code = 2777) Department of Pathology, [address] [place] [address], Technical component was performed at [facility] er, (test code = 2778) Department of Pathology, [address] [place] [address], Professional component was performed at [facility] enter, (test code = 2779) Department of Pathology, [address] [place], [place] [address], [facility] [id number] 09:04:09 Test Item Value Reference Range Interpretation Comments Case Report (test code Surgical Pathology = 104) Report Case: [id number] Authorizing Provider: Chance Pandya MD Collected: 04/21/2023 10:34 AM Ordering Location: [address] Received: 04/22/2023 08:42 AM Service Pathologist: Quyen L. Aguiar, MD Specimens: A) - Omentum B) - Soft Tissue, Other, bladder injury C) - Foreign Body, foreign body for ID DIAGNOSIS (test code = [id number] 3220) FuZzEwMzNcZnRuYmpcdWMx IHtccnRmMVxlcGljMTAyMD IkWS3nuSmqiHl3nPucKUZk ruI3qBHnGRnnf8erYEB4v5 zsjcqgPGHjMWgoWl2hgWKb wZknJmCpZMFnKVp4hP35SM RvyE1loPTxIEq9LWGgaLEu gsVqNiDsATUhkRKvvNQ7SB OiGN7zixdtHCniNVizXKMd duU4WAXeoHJrG1WjQRXkIG 7bzlxfWYV4KVpuYDZmUXB2 QxIdGMSrc1Ukaiu3RzZtnI FyZFxwbGFpblxmczIwIEEu UB3IZL3HGX2jQRLPO1VNVP wgnWMoZXFtRaZuUxdVPw2Y GEaPH8BXAZPJA9UCSEGIKS RIIEFDVVRFIEFORCBDSFJP WukGNNhKOvmSRT0JJGeASb BBTkQgRklCUklOXHBhclxw BRZuSp1oPGAIWdQFYOCKKJ AXMPHRLNVBV6QLVAmuD2gH PHYIO9LzR5CRG0tUNOQYSG WDTBWMU7zQDvjdfWIwFKNn YiAtVVJJTkFSWSBCTEFERE WFAHAEJ4ZINXPEYVHOVIFL VVRFIEFORCBDSFJPTklDIE aCArtMPV9NZEoCEfnwAWTI E0PUXJJAEJmwlLOiBVInAz GePjbVYxtCTFDXHUTZB4HO KUDZTEEFP5BOI4bjISCnIR GzSANmECRpFTGnXW0QEp0U KEAZLWIAEV2QX86PNDXTLM PQTESCBRNKPTAFNSCHG1WO EDtGDTzfC9rFMihYC5nfKE LesEGyZTWrUVPUJX7KAovq RhvLJVHMUqibPn4JUIsWDi IYV7QGXYMAPH8XDvFFXALf qzfvkSmfYQUbJl4ZYVjTLv DEX5MUSUtEL1EWFGmrCVQV TlRJRklFRCAoUExFQVNFIF JEPPLKIo9TDpOFICZPKhsS VElPTilccGFyfXtccnRmMV zsj2LeLQpkIUAqWN3geGde VSLqFP5zJSXjZ2vnlX3mvg g1JpQvNTIoAoJ6XCKbjhL0 Vth6BBKkIQuzv3cky2JwML RaEXj3nCtmRyGjDQWyt2lz cyBcZmNoYXJzZXQwIEFyaW VyR718p1wsv8hfajRztKU3 CXAiOLQ8QIieonNzpcK8NQ gqfUZkUuB2XDiqfqGnOIdf qyFnfvEmIor7DJNhI360BD G0cQgqo6bxBIG2RJHbHLYu VfIbSy6zlDMlJ858DFGtGB TJWNSkwEk5VNJfbuZhrfHe hEMOs066R947x0snYLUzts MntXmEwgsjq1jrG845JBBx cGVydzEyMjQwXHBhcGVyaD Y9KDGjWL9bhaetUBtrQMzb XCArbjN8SNMqjXGdZ3TvBP TbTB8vxrkmHDN2GQvqHEBh RZB7YlSsGRMtj1Ajhtl7Oj Gpxr1aew23ZHE0s1LpyUqj BQN1YFG3RpMxUj1hpWDmVD EgSW6sPcCynVYbWOOiza47 uCrhSRxoFEL3FRNiraXsz9 Zak2wyPqGxgzYlR9dqW0Hb ZHJoZWFkXHBnYnJkcmZvb3 Uoj1TngVEkgOc8k8zeXUYb LGCroVwxs5ysJFG1SHHzhW ZnQ0hfgH1jUJYhFJ2igrgi x8mxQCnnBXyfARCzcSO1ci Q7ROUxoLJbZ2GqyJ1cRXIs IIxnEIXdfwh3EpHaMx0dhQ VyeTcyMFxzYmtwYWdlXHBn bmNvbnRccGduZGVjXHBsYW luXHBsYWluXGYwXGZzMjRc cWxcbGFuZzEwMzNcaGljaF pjEBfzBiCzQVCiHVfpD5mf DoCpBuJmTps9VSSvyEZoDY NdMvu2YKMcaHKmPLJKlPia tW4kJOHrjEbqeM2lpHI1VN PfjnTsdELKjY9mLQNEoX0s CnV5BELdKlt2YYW5QsUzmJ FyfX0= CPT Code(s) (test code q3iloVYkFNWepTChAAGsEY = 3357) czqfQmILFzjXVaC6Ptvrnk FApeWQ3jRQ0vnNuriSZiaH UaDUXkKmCti5bhv291lKZc u3ejJXXKuvknfBo8aWxlC2 9lv2K6YvckR44mnGTrWBS7 CESzVWNlbKYjIOUaYLL1WN NsdMMlO9dfXWRiPE2rbzll FArkGPshHUOgfOK4WXKcrU NcX7XyWEWrTWfzEAGhxnj2 AvBqAq0wwNVrzAvlVUazZO TrLBClXSddDFRgGgTtEH6d ODgzMDQgWDFccGFyIEIuID f6NwA5EGraPAJghaVQMwZ6 ODMwMCBYMVxwYXJ9 CLINICAL HISTORY (test h9ghtXUnVSLjxUFxOTSyNE code = 3356) onlkHwVBTsfEQpA0Jlpsth LAfnPJ5kDF7syXtdfVXucX WhKGNnUlSzk3iya325eETl v4gaOFWLjulimHr4gHkmB1 8ji4I8EyxmC6wpJRTqUKac WNYjYXxyjRDuMCz5WBPuuA VydzEyMjQwXHBhcGVyaDE1 WEWlUK4mspjwEAcpTDuvYZ TppwZ4RNKmvEUmT2IoOQKd EE5duqnrPUL7MPhlWZKuOO G3YpExLSKhq0Rzjww4RlFe eAGdDQhvyKXkcLjmyJ8xNk QzBAhaEyYdQh2eIFdfmkLk g3E6YGrwNSErMNRxRJHksE FyfQ== GROSS DESCRIPTION (test p9thgQZaMBHihTNlQNEmVO code = [id number]) uqgnKyYTApfHLqM0Urswgh SLkeSJ7zKT9uqGfqkCEtlU DpMPSvDiPqf0san775fBPr o2deICGWxvlijJk8qDowD5 9xb9Q9YatuB37tcCWaRYE6 KYSdAFVlvYInKEDdKKU9QS ZdvHJoP8uoETLnOC6fdlwk YZmxMHnwSPYohNO8BIDikL TfF9GiBOVgIQggJXCgwwi5 PiCfWe9lrMAnhWflWMzaUn yntHhqd9QieRJcENknHMHv LMLkGXozTTInC7MMTZDoSK AxMTgyODIiIFJFUSAxNTk2 AWc5OTFLFCJkVJLlUFd6Bu UyMSIgTFJSIDEyMzAwMDAw MDkgXFxuaCBcXHQgMSBcXG DlUYmeknK2k2azLEEcrRBd YPR0FQeluYGgYGDrRLQfSE xkYiBPVlIgIiAxMDExODI4 NrPvYKk7RBehZ1BVMBVtJN Z4MohrCTJ7CgY3RBr3SQSP Rg0wLuE8XkD4NyHqHYP3PE R7OCswhDJcNLiwe4WhTkNj FELbXHhxmhC8VZUoyiYgeC esaO9tYdPlAzDAEcHCcIVb dHVtXHBhclxwYXJkXHNiMz VjOHKhL9ojPtRoWWAdUyTx NNHcF2zwFNQgGLXwGDylMM LlBjLiOyShPYt5XAFogM2m Lj0sjFSnuC6lqKGfPZoeCL D2eGUqBJPiWXNhDLEwAZ14 C4ZklbWiUAhyFVHeZHYmiL 8nVB35oVCxvnHarfVbVj7o EI12mN7sPGkaMPOuAc54PX owCA44JTueMM08CAMkCRJv gmBzf87xr1DmqECqVFhdiI puffnlUnyrbf9zSQY0vDXe bWVudHVtIHdpdGggYSBzcG Uup1OgMO8khC27WX5zTNMo dRKqNO22LUDtErJzhCWjvG magbYlOFd7NVF4WC7bYVPu X4Ttj37tjlmodiZ0UXHcku EtEAZxon62RYbfl6jxnI4u p2gqblBifJDkVEAyUwFeUi O3oSxfB4D3QIX5tvFmH4Lg NGQLxqQfeDEknrM1SNShBF Bbi84jLGGcEJNqWDZekWof aWVkLiAgVGhlIHNwZWNpbW FfCIsdSIMdfYqxSHx5JPE3 Wl8bjJKxEOZgllQCBX19AG EpjKFwNSE0SP6knNzdXFY2 SDruRZOtW5CdD5AqDIzbVF A0YZExVuOwREGoQB5DNgEs CPGzMSZ9UfibNtY1XOv4YK BPVlMgIiAgMzQzOTMxNjQi EEi1UJg9KOpKGaW8Wgi2Bz O6AsMkNDF0BIUyPSc4LPBu XFxzcyAzIFxcZmwgXFxuY3 1ccGFyZFxzYjEwNVxlcGlj NHCgXSA8IYZdIeMuAa6eS5 5jnCWBmYWphMIbZB67kRGh XHBhclxwYXJkXHNiMzBcZX TtF9reItRvHWYhFRlyLFPt MoPkZbBwCSw8HPFocQ6pBv 1mlMFtsP4xpMEwHQupQJS5 uFQhJWBfVWRbEMUdDO08D8 GlhlGpHNanXKHpAVObgG0b PP29aRZiyfCgozYbPtKcSN WwDAXseH0fuFU2LzCfccDo GfK9yf3ftBOfqGOnUDNcUZ yvCO61mmSmCxWfpAXjgVIc jHdviXEkv3QnqMOzmKXtFe jvJBBoyxVusZVno2KebYms qCMrXR5bEHJjfk0rVCDyOQ 76ObFvJ69umG4kM9QwJQNc i7SpAHbqQS7syD5rIjZrQH rpQAWsZBplDJ41auNvqqVv LGncRgKjZS09wPYhyYehvH 3vAKRiRcb0XCcgGobiB3le IX5sYUemBTRqUhNnD2WyqS lvbmluZyByZXZlYWxzIGEg vEXnUCGnszpgXZSsH9IinJ yveRKpw3QwsYEucBDjFJcd iTUbu0iegeHzhDOjKEGsXo QbvREqZ8K3TJD3azDpO2Ra FZJUjFHxk0OmR0xqEO2ddH WcGT70xLKxoIzhj7IarWs6 yIRjDLTpLTOquElqz5R1JL BhclxwYXJkXHBhciBTZWN0 pN9bNOZxPUUtaHGfEPWnKa KbWOYyFKewTB46KMWuJNZu DRojzXGyAUX2iC0xPYPtlT IoGKRgUZX5AmDiFAOkZCqz RQ25UGXaSOElTHnvpRXfVJ K7bL2jEDMbfFSrFQSuWnKg LIMkA7piGMPxGXL4BoVyWI VgDWpsEN89x8vmnGrcy7Ic jXYcVU0wiZApf7qqPBLxdM MjKFL5GNitpMTzIUOmJKYd XFxkYiBPVlIgIiAxMDExOD Y8GyYhLZp5PEeiD5KDRWPw KDW9PfxzPfttQkY1UVt0UT WQBo2hCcA6OtZ6IlM0FBP2 OXO8BEqldVErECcoc9CuTb GdBCNcKHvxygU6ZKSjktOw p7EcNKIpQJZyK8boWzKzFA dfheRsJIYjJLBxjbYkC87w Iq4oxZfwKGXdeUGxFWizYe VpSCQjpQPOx4OxBOlylHZy tfnfqiHvCXEiM5BkaeVxZZ OcOHSkSLrlPoKjGKUtg2s7 tVZ4fPJutHO5yXTzpVaqGA 7cfNCpINHdC0Gvh9eoexBl lH6aJTFqQR4yVXBgo2MugP duIGJvZHkiIGlzIGEgMTIu FdZxrUHrfkVwRO8heIeiQh ydLO4sDPVzVYFufOEihuZo aWFtZXRlciBwdXJwbGUsIG O6cInuQESnF0KhAXKlyhGk P13oYn4wvGDqh50twLM8KE 58YJaagNermMDnX9FxVTH2 dVN1FSMxc1ZqXPfsKYZyOV Ksq5zij5dpalrbzO7gT9Jf bKVps266PHUaosezLXWySV EusdXGU7NBWhnUNoiukTIm IJyqx4vyhHTidIdoMBZfYs NAPB1JWHGrxjrkFMEdXZMl vh7xfvElpA70b5ciOBSeBL hsLJDsf3NgScPzFn1qh6Du vXfuirLsTIWsWQD7Nr4llE NiDN3eZRJwqLUmgBAdqFBb ljShs3ZiA5Pzd4CsGVmzcC epNNPhy38fo33lxG5zdYEv XHBhclxzYTMwXGVwaWNYc2 ZiMGEZmLdoipTAvzc0LMmw ZXMsIFBBLCBIVCAoQVNDUC i9FFTjoIZdXWA0II2amXhv SUNmS4BbO0MhyoJ5HNGlrl 0= MICROSCOPIC DESCRIPTION l9zvdXMyPVQbjQYkWTYzDW (test code = 3371) ypjxXuTAFwqNLzF0Pwupko OIlqFX3nXC4mmGxekRNsmM QbNHZgUrFxb1llh657cCLy z8kjKSSKhdzdqAw7mBhxU5 8ab3S0ZkolJ17xmNAdSQG0 AUMpMVJfmWUoEIVkFZC7XF XagJGaB2gcSEHpIF4rqiau REvkJKzuYOVnrTJ2YEGqoV KvA2ItSDJlQQnbKZKzvyh1 AzSwIe2nqHCxwHnnZNpkGS NtJPGcJOvwOLZlBoZhBJ5D EbOJCVTla0NzQJRvGWckQY GbaPVcTLNzLU3szLKcfFQb aWNhYmxlLlxwYXJ9 Gross assessment was [facility] performed at ([facility], = 2777) Department of Pathology, [address] [place] [address], Technical component was [facility] performed at ([facility], = 2778) Department of Pathology, [address] [place] [address], Professional component [facility] was performed at ([facility], code = 2779) Department of Pathology, [address] [place] [address], [facility] [id number] 09:04:09 Test Item Value Reference Range Interpretation Comments Case Report (test code Surgical Pathology = 104) Report Case: [id number] Authorizing Provider: Chance Pandya MD Collected: 04/21/2023 10:34 AM Ordering Location: [address] Received: 04/22/2023 08:42 AM Service Pathologist: Quyen Aguiar MD Specimens: A) - Omentum B) - Soft Tissue, Other, bladder injury C) - Foreign Body, foreign body for ID DIAGNOSIS (test code = [id number] 3220) FuZzEwMzNcZnRuYmpcdWMx IHtccnRmMVxlcGljMTAyMD KgWM8dyMtvgMd4fTeiSHHx arW3pUHsBPxyy0azTGZ7s0 xrykxdOPFqJDnjMu6rpWWu vXnfVhZcLUCoSWf7gB89EI FenP5qnDFrFCb8OFEfqBKm zmDoLvKzCLMthXSzsGK4MQ IcPZ9hnmkyZIvmDIrgJPUl bsF4HMLvjGFxH5KyEYRzSV 5olbpiFQB5IUflEMDvXTL9 PnCaXZBel7Agxsz6TfTroF FyZFxwbGFpblxmczIwIEEu JN3HUC0TKB7vSEORO5YWGP dauXTlIBEpPvWmCttXDc0Y WEbLU6NBZZDEC6VREJGPCD RIIEFDVVRFIEFORCBDSFJP EeiWUVzVFyrRKG9BNThVSw BBTkQgRklCUklOXHBhclxw VXPiWo0jNTSTUhDUAQBMUR BBWSKPHGXDY8ULVObpT1lX BTZIR2UjK6NUM6yJVOCAQM ZSPVUHD0pYTpjffSQeBQDt YiAtVVJJTkFSWSBCTEFERE HPCKKCH5NLZFIXCXNQLYLU VVRFIEFORCBDSFJPTklDIE qVXwcBYB6WLHzNKhlkCCIZ S2IQNYNWRPdgxJDbDOIjMz XpCsmGFquQPPXBDOBTE7GB TRMBBOYWZ3MUP8qxSCNePA LyYDPyEYApMGRmEH7WDs3D XVETJHPPQW5HX09KPMOUQH ZWMYBSZQKWHQTVUSVQT4DM NUjIDXcaK9bNTagDA1iqPP NnrHTwSRHrDOPFPW5MJdie OhkXIULNUohuWo4RFEcJRc KUY6JETDKRAL7PQdXAHYCh fqywlCplARTjNr4TZSvMQh LYY6KGKRqFL4LBIBnrXTPY TlRJRklFRCAoUExFQVNFIF OQFKVQVq4GNnZFQQHQNybP VElPTilccGFyfXtccnRmMV vwa2LiYSrsVIRcZA8qwOfm RUUfQX7bALAyW9qxxC8wxv c1MgQqPRZcHxP9HIXwhtA3 Whk4GBIdLNfud2dbo2GwNU DzGGl5nDxpTdNvGPHzk1fe cyBcZmNoYXJzZXQwIEFyaW MeZ415o1llp7isqjJlcNK1 RIAdUYW2FEpasvWrirX9XI kqrSXqKlD1DBgizrBiQLpt rqZcwpUtQss9KZMeO236RV I5pOzof2gnGPK0PLLgQRBm VcFgNu6yqAXrR142BKWwFZ RSFNHwoKj2WKKiqiXuerCj cCNPu288R560z8knPHMxdb VwmOuYyvjwy5pgR007OWTs cGVydzEyMjQwXHBhcGVyaD D5QOAfXZ5eoivhMAkfHDas RJDpwsH0QRCtgRWpE8GbAG VwAW8jxzxbGOA5SQedTXCv KMR7VpDsBQLnc6Qwdhv3Is Jmqb2ffa24SZN8v1EgyEru UUL1AOT5GzNeMm7dcVEhGT FqTB5kPvTzyUXbNCFbwr40 sFkgRLwwRDA6CQVpqzLld2 Ibe7mvEcQoqhOyI8juZ1Gw ZHJoZWFkXHBnYnJkcmZvb3 Ngf1CyfANmkPd2q7eiHZZa EITuyQdrj7odBIB2WZBfzA LdN1jiaL3bNNByGW5zxxdf s3rlZIljNYjiERDrdRE5ws T0ZQBzzXUvA1DfmZ3iDSOl MUgmJEOqvcp8PuXaUj7clN VyeTcyMFxzYmtwYWdlXHBn bmNvbnRccGduZGVjXHBsYW luXHBsYWluXGYwXGZzMjRc cWxcbGFuZzEwMzNcaGljaF gzIMmiMwHcKMBeSAloH5uo SwEkJbXqZuh1LQEkvQEsPL XlSgg6VUSbaPQzMNBBjNkk jB8sIQImlTgtlL3vjWQ5BQ ZsbvBniHCElZ8tYLXSuV7k TyK4BAKxDma5JLW6RcUpbY FyfX0= CPT Code(s) (test code r6gaoNUmKYLrqDKaXTPlYY = 3357) ojvsSoWBWfdIJwG0Oqzcwg TYlnYN7hCM5etMutrKVkvX OcMILmTyLrl9xak183kJPm y9sqMSCCarvxeUa8yQtmF1 6qn6S4QvszH09vpASrEOW6 BGHrVLBevVNdIPOiSFE1BR IjpJEpN9daDAZtGQ2oyuxl KRudEHqbVZFyrGV1UDXprY JpG3DzNSUmDXymMARwqum3 VpOiZb4mpQAyrRreBAggTJ LgNHMdUCwcERJjOwVdOR0m ODgzMDQgWDFccGFyIEIuID g5MnP7IWdrMQPrlvVYFfZ6 ODMwMCBYMVxwYXJ9 CLINICAL HISTORY (test z5bszXLyCSCmaPZqRDZtOI code = 3356) rowdQrWTSomALsE4Jkxwwy DDsjPI7zAV8voFhsuVDvoH CzTWUfFmGbh8pck851lYIn o5urGKWHhzfyaEi5vPuiN2 5fj8Q2FeecV0wtIXXqPOiw GVNmCBmtdUSdSYu0LRQzrL VydzEyMjQwXHBhcGVyaDE1 TBByAO0grnntLOlxDGwmCL ZllcH0BJPunHIhM0BdSLXx JG6ricefJNO5TLqbRJRnCU J6CuHyMRWqd2Wpzkt0GsOp cVLlUNlemDThjQzocB1mDb AgNSlmDfUtBd9vLNezvgXo f1J2RKazSDIuXUQxDSPyzP FyfQ== GROSS DESCRIPTION (test d6tllSRvDUCbzZXqFOHpBE code = [id number]) qfbyEqSCRsbCFbM9Svlsmz WCciXZ2aCS9kpLccjIMttC LbMQRcUcHlh4kto386xOGr e4hsZINTxrxrhSg5lNqfI4 4si1P4SzsmH58nvSHeKOU0 KHOpHLSqoAWpAVZcZYD5EF HdfXMxG9vxEROdUS7dgjft FPupGVtxNQWvvQW7EXXbtU QxU8HeWNEzDSujRWNitog8 ScDtWr6cnRSenCrkCMrgPv ozsCezw5QstNKoUFdxPWLg EZLpQUxsUKUoF1PVPBIwMZ AxMTgyODIiIFJFUSAxNTk2 ANq5PNFNVEJrPIWgPCi6Rc UyMSIgTFJSIDEyMzAwMDAw MDkgXFxuaCBcXHQgMSBcXG HvDVekscU6t9rsUKShwSGy IUZ0OTjdjGMsZBGxKJBlSN xkYiBPVlIgIiAxMDExODI4 GgFpECb1PXqwS3MLRZXzRR X1LaddOFB7PiI1AOs9RIGI Tg2mEeQ8TwK2JjAzDVU7LB U5UXhwuEJhVAuee7SwMzFn WWCxPTkaomB4LIUdfdFmdL ypmO4rZhQyCnSMRzOBvSLu dHVtXHBhclxwYXJkXHNiMz DuFWSlF9igMaIfFLTgKpUz DYLoT7pvKRPnWGQxPWhjXY ZaYuExUiDhFBa3WJYcjN1b Ux8dsMKmjS3ucREaSHdbKW H6wKIyQGYrMWDgZASmBT70 X6HcohRbBXywUHJgDMGfvP 0nHT52dTIbwuTuubOxLr7q XK33oS4gVOsaUQDlMc20RY kwCW09VLakMX63AEUdUWQj vpTyh64ix4NzaYDlDAjmnF kjybspLupixt2oZAH4ySPk bWVudHVtIHdpdGggYSBzcG Doh0GxKK9phM68UA9bIYEt aEOfFG53SVNdEmUycTCcyP tloiNgVHb3AHO2OP3vLZPs Z7Pof40aptaazkN1MPOfdi KjDUTnwu67AKnza5dhjN2a y1kpjeMgkEUlCFRzSiLsUy N1cNxgN7A8IGV1gtMkS6Ak CVDHotPsuQKhqjA1ZSFrZT Bho90mHSKhVVDqAKShaXiw aWVkLiAgVGhlIHNwZWNpbW QvKUxnELQyqZipVHm4MBQ0 Cc3chHArAYIhemAASW27GS SjxLPgMED4GA6gxBomWDZ5 NEtuLPQhB4VoG6InIFdqXR N2TYZoVzVkLBPhFY8SBtOo FJHhEEI5QbrzChU4OQu4KD BPVlMgIiAgMzQzOTMxNjQi SHy2VRa2JAhYIoR4Vmo2Wh D2QpLbNSQ1QBAtQZe4RSMs XFxzcyAzIFxcZmwgXFxuY3 1ccGFyZFxzYjEwNVxlcGlj JUAcVUT1BNXcEbJgYl7uH6 2kiVTIgKOvzXDwRN12zWBx XHBhclxwYXJkXHNiMzBcZX VgB1doTaDrIRKoVNtaVFGh ReQnVtQvIUr2UPGguA1cZs 7wuIAmdP4gvYGlJKfjZJQ7 fWTeTNEjPZTnEYYgDD79N9 RvmnMzZNwpLUSbJWCnfW4u AZ63tURralGscrOmBgNcOS AfCPNmiL7lyKJ3KsEiaeZj UcM5rh5teVZfyJKkELSsSS saNH85ajVmVfUgvBFzzIZo oCjyeFUns2QojQNptUBdXn vmRKLhqiWqiNXgq9IczLty hDMtNH5jHWGmgj5eKWEzJG 50VaNyC88jpN3oG9UjOUDx g9SnDGesOK1ajD5bGgShVE duFRKvGDxbWK16pqEkfyYi PIylTsWiMW54uQHdoRlfzI 8jDMNsXqw3LVlaTafgJ4re FX3xQUaePLJcTiYiN1RacS lvbmluZyByZXZlYWxzIGEg gUAbEERwfritSSRpW4KboH dwfDZoj8VjoLHgdFKmBMrt fMHsz6wvbtLibFKaIEUpKs JdeBFjM3M2XWM0jfRcJ7Gn OFULvOKjv4BkL2klLL7fhP FgAK95zALneQdcm8FvwQi1 iXUbICNiIHRhsMpng5B5DX BhclxwYXJkXHBhciBTZWN0 cS6tKQWzRNIpfNAuTYUoMh EiWHPnZDubYV66NKRlVCBr BJevoWVuOXW9uW3oMUEynA UiABVnFBV2ZoBjRCEfXLup WQ32XHHlGGPzUJfksUPsOP H5aG7aXSRkyBByVRUcBeCu WJEwX6vvBXJkEKP9CxXgRW CxAFkqZW26v5hcyAhtz9Xq vRPaNQ2azEBgp1wqLMQynL UoJEZ8ZMyzdPJsUKEvBOWf XFxkYiBPVlIgIiAxMDExOD P8OuBvTYs0SHxnA3BXXTUo ANT8DnooSpnePdS3OFf7TF HCKl4rXjI7DuZ2VqN1UXX2 XWT0XLikpSQpSMxnf9LsOf HlFPEwDYammlU9EMKxvfPq l8YrSCAyNZAzS3xfOoQrMX tjukPlZGNoINXpdoHxU54d Ce8wuPlcIQHiwXQlJInpKe OuKSQkiWVVj8JoUTcoeDZx usbrfuEdPRLeB5ZhdjBkTT TxAZDcXYlvMbSnMXFco0r6 eAX7rPTicSY2mYYjfDfdBN 5ysFRlCTJmI2Rqq6zkqyOc kC6oKTSpOD5wQZVrc5HgoM duIGJvZHkiIGlzIGEgMTIu FzVzsKYtwuErTZ1ybBdoCf nlCX4jFRPbJGFhpLIoqoKq aWFtZXRlciBwdXJwbGUsIG O0hEedGRHgA6YlUEKjknVu T56mUw7tdRRxu21vuRA8RR 20RStybMsesTUeF6CeNQO6 tEC3OIOsd9PuQNjwUCXbNR Sqh0mkk5zfnezevX1mD3Dg nARrt524SWDqyqexIFQeXL RemtVPN1RZRjqFVrqprEEv OZwni1okwOLruZgvQSPhVd GXTR4YVXDvtboeXCGaVKXg xb0pgpKcoW69j7ujEOUbME olVHMar3SlSsVfMq9bv5Tc pHwcfkVgITPpFVL6Hl2igW SoUB4pAULsrNDnjIIweJIp feLpr5JiB2Wqq0RsEIgmpI vlIPNyq37vh18ivW3yyEDr XHBhclxzYTMwXGVwaWNYc2 JaHRPWePgngkOOwfc7JQfc ZXMsIFBBLCBIVCAoQVNDUC h6RVCxiMMyHNL5KA2vxTeh ONUsM1BvC7ZjewH6JLXymh 0= MICROSCOPIC DESCRIPTION g0ekpGXkDNMytKMnHQJnLN (test code = 3371) mqcsIsZOEtjBIoG3Bgcniu IIbwSM2pFC0xiXqflNHznV AfKCMiWxSfj8rxc907lVSm t9kwJKDGtnlppPl0mUvfS3 7hs2B0EzrxD99xwIOeZEF0 SYFkWMBakZLgFDQiGMA8NN RpcDVdF7ilWLTxLK3onxrn FEhjDXrnCBHdxVV7GPUdmO UuO0StXZZpGAziOHUxgdn2 BgLjVz3moZWynKpaICzqBZ IbSUVoBTeiXTJaGbQuWF7O AhLIWHTce3DzEKBhDCrsVF ChoMBnGUSyMJ8reLZvuPMz aWNhYmxlLlxwYXJ9 Gross assessment was [facility] performed at (test code [facility], = 2770) Department of Pathology, [address] [place] [address], [place] [address], Technical component was [facility] performed at ([facility], = 2778) Department of Pathology, [address] [place] [address], Professional component [facility] was performed at ([facility], code = 2779) Department of Pathology, [address] [place] [address], [id number] 09:04:09Surgical Pathology Report Case: [id number] Authorizing Provider: Chance Pandya MD Collected: 04/21/2023 10:34 AM Ordering Location: [address] Received: 04/22/2023 08:42 AM Service Pathologist: Quyen Aguiar MD Specimens: A) - Omentum B) - Soft Tissue, Other, bladder injury C) - Foreign Body, foreign body for ID A. OMENTUM, BIOPSY: -FIBROADIPOSE TISSUE WITH ACUTE AND CHRONIC INFLAMMATION AND FIBRINB. URINARY BLADDER TISSUE, SITE NOT SPECIFIED, EXCISION: -URINARY BLADDER TISSUE WITH ACUTE AND CHRONIC INFLAMMATION, HEMORRHAGE, FIBRIN AND FOCAL NECROSIS -UROTHELIAL MUCOSA WITH REACTIVE UROTHELIAL CHANGESC. URINARY BLADDER, FOREIGN BODY, REMOVAL-FOREIGN BODY GROSSLY IDENTIFIED ([place]ASESEE GROSS DESCRIPTION) Signing Pathologist Direct Phone Line: [phone] signed by Quyen Aguiar MD on 05/01/2023 at 9:04 AMA. [id number] X1B. 15764 X1C. 60843 L0Opxakcq body in bladderA. OmentumReceived in formalin labeled with the patient's name, accession number and "omentum" is a 2.4 x 0.5 x 0.5 cm portion of sue-yellow, fibrofatty omentum with a sparse amount of adherent fibropurulent exudate. Sectioning reveals a sue-yellow homogeneous, fibrofatty cut surface. No discrete lesions are identified. The specimen is entirely submitted in A1.B. Soft Tissue, OtherReceived in formalin labeled with the patient's name, accession number and "bladder injury" are 3 unoriented fragments of diffusely hemorrhagic bladder mucosa that range from 0.9-4.5 cm in greatest dimension. The fragments are differentially inked blue, black and green. Sectioning reveals a sue-pink, focally hemorrhagic, heterogeneous, fibrous cut surface. The specimen is entirely submitted as follows:Section codeB1: 1 fragment, serially sectionedB2-B5: 1 fragment, serially sectionedB6: 1 fragmentC. Foreign BodyReceived fresh labeled with the patient's name, accession number and "foreign body" is a 12.2 cm in length by 1.1-2.0 cm in diameter purple, cylindrical foreign body consistent with mascara that displays the following inscription:COVERGIRLLashblastFUSIONA gross photograph is taken. No sections are submitted. This part is for gross examination only.THERESA Contreras, CRISTOFER ([facility])A-B. Performed. C. Not applicable.[facility], Department of Pathology, [address] [place] [address], Tel [phone] Valley Hospital [facility], Department of Pathology, [address] [place], [place] [address], HpqyicAntelope Valley [facility], Department of Pathology, [address] [place] [address], PJA W/PLT COUNT & AUTO [id number] 06:54:34 Test Item Value Reference Range Interpretation Comments WHITE BLOOD CELL COUNT (BEAKER) 10.3 K/ L 3.5-10.5 (test code = 775) RED BLOOD CELL COUNT (BEAKER) 3.55 M/ L 3.93-5.22 L (test code = 761) HEMOGLOBIN (BEAKER) (test code = 11.2 GM/DL 11.2-15.7 410) HEMATOCRIT (BEAKER) (test code = 33.8 % 34.1-44.9 L 411) MEAN CORPUSCULAR VOLUME (BEAKER) 95 fL 79-95 (test code = 753) MEAN CORPUSCULAR HEMOGLOBIN 31.5 pg 25.6-32.2 (BEAKER) (test code = 751) MEAN CORPUSCULAR HEMOGLOBIN CONC 33.1 GM/DL 32.2-35.5 (BEAKER) (test code = 752) RED CELL DISTRIBUTION WIDTH 12.8 % 11.7-14.4 (BEAKER) (test code = 412) PLATELET COUNT (BEAKER) (test 259 K/CU MM 150-450 code = 756) MEAN PLATELET VOLUME (BEAKER) 9.4 fL 9.4-12.3 (test code = 754) NUCLEATED RED BLOOD CELLS 0 /100 WBC 0-0 (BEAKER) (test code = 413) NEUTROPHILS RELATIVE PERCENT 68 % (BEAKER) (test code = 429) LYMPHOCYTES RELATIVE PERCENT 18 % (BEAKER) (test code = 430) MONOCYTES RELATIVE PERCENT 7 % (BEAKER) (test code = 431) EOSINOPHILS RELATIVE PERCENT 5 % (BEAKER) (test code = 432) BASOPHILS RELATIVE PERCENT 1 % (BEAKER) (test code = 437) NEUTROPHILS ABSOLUTE COUNT 7.04 K/ L 1.56-6.13 H (BEAKER) (test code = 670) LYMPHOCYTES ABSOLUTE COUNT 1.90 K/ L 1.18-3.74 (BEAKER) (test code = 414) MONOCYTES ABSOLUTE COUNT (BEAKER) 0.72 K/ L 0.24-0.36 H (test code = 415) EOSINOPHILS ABSOLUTE COUNT 0.55 K/ L 0.04-0.36 H (BEAKER) (test code = 416) BASOPHILS ABSOLUTE COUNT (BEAKER) 0.05 K/ L 0.01-0.08 (test code = 417) IMMATURE GRANULOCYTES-RELATIVE 0.50 % 0.00-1.00 PERCENT (BEAKER) (test code = 2801) STD Panel - CT/GC [id number] 23:47:22 Test Item Value Reference Interpretation Comments Range C. trachomatis NOT DETECTED RNA, TMA (test code = 1995738) N. gonorrhoeae NOT DETECTED REFERENCE RA NGE: NOT RNA, TMA (test DETECTED Meth odology: code = 3977309) Transcriptio n Mediated Amplification ( TMA)to detect RNA. The analytical perf ormance characteristics of thisassay, when used to test SurePat h(TM) specimens haveb een determined by [employer]. Th e modificationsha ve not been cleared or approved by the FDA. This assayhas b een validated pursu ant to the CLIA regula tions andis used for clinical purpos es. For additional information, pl ease refer tohttps://educa tion.[employer]. com/faq /KTG756(This li nk is being provided for informational/e ducatio nal purposes on ly.) CINDI (test code = Performing Lab CINDI) *[employer] [address] Diego Mathew MD, PhD [facility] Panel - CT/GC [id number] 23:47:22 Test Item Value Reference Interpretation Comments Range C. trachomatis NOT DETECTED RNA, TMA (test code = 8055077) N. gonorrhoeae NOT DETECTED REFERENCE RA NGE: NOT RNA, TMA (test DETECTED Meth odology: code = 5582188) Transcriptio n Mediated Amplification ( TMA)to detect RNA. The analytical perf ormance characteristics of thisassay, when used to test SurePat h(TM) specimens haveb een determined by [facility]. Th e modificationsha ve not been cleared or approved by the FDA. This assayhas b een validated pursu ant to the CLIA regula tions andis used for clinical purpos es. For additional information, pl ease refer tohttps://educa tion.[employer]. [employer]/faq /[id number](This li nk is being provided for informational/e ducatio nal purposes on ly.) CINDI (test code = Performing Lab CINDI) *[employer] [address] [address] Diego Mathew MD, PhD [facility] Panel - CT/GC [id number] 23:47:22 Test Item Value Reference Interpretation Comments Range C. trachomatis NOT DETECTED RNA, TMA (test code = 0517903) N. gonorrhoeae NOT DETECTED REFERENCE RA NGE: NOT RNA, TMA (test DETECTED Meth odology: code = 4143426) Transcriptio n Mediated Amplification ( TMA)to detect RNA. The analytical perf ormance characteristics of thisassay, when used to test SurePat h(TM) specimens haveb een determined by [employer] [facility]. Th e modificationsha ve not been cleared or approved by the FDA. This assayhas b een validated pursu ant to the CLIA regula tions andis used for clinical purpos es. For additional information, pl ease refer tohttps://[employer]. [employer]/faq /[id number](This li nk is being provided for informational/e ducatio nal purposes on ly.) CINDI (test code = Performing Lab CINDI) *[employer] [address] [address] Diego Mathew MD, PhD [facility] Panel - CT/GC [id number] 23:47:22 Test Item Value Reference Interpretation Comments Range C. trachomatis NOT DETECTED RNA, TMA (test code = 9727769) N. gonorrhoeae NOT DETECTED REFERENCE RA NGE: NOT RNA, TMA (test DETECTED Meth odology: code = 9106556) Transcriptio n Mediated Amplification ( TMA)to detect RNA. The analytical perf ormance characteristics of thisassay, when used to test SurePat h(TM) specimens haveb een determined by [facility]. Th e modificationsha ve not been cleared or approved by the FDA. This assayhas b een validated pursu ant to the CLIA regula tions andis used for clinical purpos es. For additional information, pl ease refer tohttps://[employer]. [employer]/faq /[id number](This li nk is being provided for informational/e ducatio nal purposes on ly.) CINDI (test code = Performing Lab CINDI) *[employer] [address] Diego Mathew MD, PhD [facility] Panel - CT/GC [id number] 23:47:22 Test Item Value Reference Interpretation Comments Range C. trachomatis NOT DETECTED RNA, TMA (test code = 5225481) N. gonorrhoeae NOT DETECTED REFERENCE RA NGE: NOT RNA, TMA (test DETECTED Meth odology: code = 3504845) Transcriptio n Mediated Amplification ( TMA)to detect RNA. The analytical perf ormance characteristics of thisassay, when used to test SurePat h(TM) specimens haveb een determined by [facility]. Th e modificationsha ve not been cleared or approved by the FDA. This assayhas b een validated pursu ant to the CLIA regula tions andis used for clinical purpos es. For additional information, pl ease refer tohttps://educa maria fernanda.[employer]. [employer]/faq /COT901(This li nk is being provided for informational/e ducatio nal purposes on ly.) CINDI (test code = Performing Lab CINDI) *[facility] [address] [place] [phone] Diego Mathew MD, PhD [facility] METABOLIC [id number] 06:05:43 Test Item Value Reference Range Interpretation [...] not appl icable for dialysis patien ts [employer] ID - ADMINCBC W/PLT COUNT & AUTO [id number] 05:27:38 Test Item Value Reference Range Interpretation [...] 0.00-1.00 PERCENT (BEAKER) (test code = 2801) [id number] 15:29:12 Test Item Value Reference Range Interpretation Comments RPR SCREEN (BEAKER) (test code = Nonreactive Nonreactive 420) BASIC METABOLIC [id number] 05:30:13 Test Item Value Reference Range Interpretation [...] not appl icable for dialysis patien ts [employer]er ID - MMCBC W/PLT COUNT & AUTO [id number] 05:00:11 Test Item Value Reference Range Interpretation [...] (BEAKER) (test code = 2801) HEPATITIS B [id number] 12:22:27 Test Item Value Reference Range Interpretation Comments HEPATITIS B CORE TOTAL ANTIBODY Nonreactive Nonreactive (BEAKER) (test code = 497) HEPATITIS B SURFACE ANTIBODY < mIU/mL <8.0 (BEAKER) (test code = 647) HEPATITIS B SURFACE ANTIGEN (2) Nonreactive Nonreactive (BEAKER) (test code = 2585) [employer]er ID - ADMINFL, FLUORO, NON-SPECIFIC, UP TO 1 [id number] 11:50:00 Reason for exam:->[facility] 1980 Sex: FAn imaging unit was utilized for this procedure. No radiologist interpretation was requested. Refer to the EMR for findings. Refer to PACS for any patient radiation dose information.HIV-1 ANTIGEN WITH HIV-1/2 [id number] 11:41:16 Test Item Value Reference Range Interpretation Comments HIV-1 ANTIGEN WITH HIV 1\\T\\2 Nonreactive Nonreactive ANTIBODY (2) (BEAKER) (test code = 2586) [employer]er ID - ADMINHEPATITIS C [id number] 11:41:11 Test Item Value Reference Range Interpretation Comments HEPATITIS C ANTIBODY (BEAKER) Nonreactive Nonreactive (test code = 367) [employer] ID - ADMINPregnancy Screen, [id number] 07:54:00 Test Item Value Reference Range Interpretation Comments Preg Test, Ur (test code = 2-1) Negative Negative Lab Interpretation (test code = Normal 81927-9) [facility] [id number] 07:54:00 Test Item Value Reference Range Interpretation Comments Preg Test, Ur (test code = 2-1) Negative Negative Lab Interpretation (test code = Normal 55589-3) [facility], [id number] 07:54:00 Test Item Value Reference Range Interpretation Comments Preg Test, Ur (test code = 2-1) Negative Negative Lab Interpretation (test code = Normal 25868-6) [facility], [id number] 07:54:00 Test Item Value Reference Range Interpretation Comments Preg Test, Ur (test code = 2112-1) Negative Negative Lab Interpretation (test code = Normal 85049-4) [facility], [id number] 07:54:00 Test Item Value Reference Range Interpretation Comments Preg Test, Ur (test code = 2112-1) Negative Negative Lab Interpretation (test code = Normal 69766-9) [facility] SCREEN, [id number] 07:54:00 Test Item Value Reference Range Interpretation Comments TEST URINE (BEAKER) (test Negative Negative code = 583) BASIC METABOLIC [id number] 07:04:30 Test Item Value Reference Range Interpretation [...] not appl icable for dialysis patien ts [employer]er ID - [id number] 07:04:30 Test Item Value Reference Range Interpretation Comments MAGNESIUM (BEAKER) (test code = 1.9 mg/dL 1.6-2.6 627) [employer] ID - [id number] 07:04:30 Test Item Value Reference Range Interpretation Comments PHOSPHORUS (BEAKER) (test code = 2.9 mg/dL 2.3-4.7 604) [employer]er ID - ELIZABETHOCBC W/PLT COUNT & AUTO [id number] 06:56:04 Test Item Value Reference Range Interpretation [...] PERCENT (BEAKER) (test code = 2801) PROTHROMBIN [id number] 06:49:20 Test Item Value Reference Range Interpretation Comments PROTIME (BEAKER) (test code = 13.1 seconds 11.9-14.2 759) INR (BEAKER) (test code = 370) 1.01 <=5.90 RECOMMENDED COUMADIN/WARFARIN INR THERAPY RANGESSTANDARD DOSE: 2.0 - 3.0 Includes: PROPHYLAXIS for venous thrombosis, systemic embolization; TREATMENT for venous thrombosis and/or pulmonary embolus.HIGH RISK: Target INR is 2.5-3.5 for patients with mechanical heart valves.Urinalysis w/Microscopic + Reflex to [id number] 02:32:21 Test Item Value Reference Range Interpretation Comments Color, UA (test code Yellow = 5778-6) Clarity, UA (test Hazy code = 5767-9) Specific [place], UA 1.038 1.001-1.035 H (test code = 5811-5) pH, UA (test code = 6.5 5.0-8.0 5803-2) Protein, UA (test 100 mg/dL Negative A code = 47041-7) Glucose, UA (test Negative Negative code = 365) Ketones, UA (test Negative Negative code = 2514-8) Bilirubin, UA (test Negative Negative code = 99297-0) Blood, UA (test code Moderate Negative A = 64462-1) Nitrite, UA (test Positive Negative A code = 5802-4) Leukocytes, UA (test Large Negative A code = 5799-2) Urobilinogen, UA 0.2 0.2-1.0 (test code = 32089-4) RBC, UA (test code = 116 See_Comment [Autom ated 50060-2) message] The system which generated this result [...] 20 See_Comment [Automate d (test code = 80509-8) messag e] The system which generated this result transmit fatemeh reference range : /HPF. The reference range was not used to interpret this result as normal/abnormal . Specimen Source (test code = 2795) CINDI (test code = CINDI) [employer] ID - [auto][employer]er ID - tech Lab Interpretation Abnormal (test code = 58314-8) [facility] Reflex to Culture 2023-04-21 02:32:21 Test Item Value Reference Range Interpretation Comments Color, UA (test code Yellow = 5778-6) Clarity, UA (test Hazy code = 5767-9) Specific [place], UA 1.038 1.001-1.035 H (test code = 5811-5) pH, UA (test code = 6.5 5.0-8.0 5803-2) Protein, UA (test 100 mg/dL Negative A code = 89526-8) Glucose, UA (test Negative Negative code = 365) Ketones, UA (test Negative Negative code = 2514-8) Bilirubin, UA (test Negative Negative code = 22394-9) Blood, UA (test code Moderate Negative A = 39928-9) Nitrite, UA (test Positive Negative A code = 5802-4) Leukocytes, UA (test Large Negative A code = 5799-2) Urobilinogen, UA 0.2 0.2-1.0 (test code = 44978-4) RBC, UA (test code = 116 See_Comment [Autom ated 41338-2) message] The system which generated this result transmit fatemeh reference range : /HPF. The reference range was not used to interpret this result as normal/abnormal . WBC, UA (test code = 584 See_Comment [Autom ated 5821-4) message] The system which generated this result transmit fatemeh reference range : /HPF. The reference range was not used to interpret this result as normal/abnormal . [place] UA 20 See_Comment [Automate d (test code = 43348-4) messag e] The system which generated this result transmit fatemeh reference range : /HPF. The reference range was not used to interpret this result as normal/abnormal . Specimen Source (test code = 2795) CINDI (test code = CINDI) [employer] As[employer]er ID - [auto][employer] As[employer]er ID - tech Lab Interpretation Abnormal (test code = 30586-2) [facility] Reflex to Culture 2023-04-21 02:32:21 Test Item Value Reference Range Interpretation Comments Color, UA (test code Yellow = 5778-6) Clarity, UA (test Hazy code = 5767-9) Specific [place], UA 1.038 1.001-1.035 H (test code = 5811-5) pH, UA (test code = 6.5 5.0-8.0 5803-2) Protein, UA (test 100 mg/dL Negative A code = 70201-6) Glucose, UA (test Negative Negative code = 365) Ketones, UA (test Negative Negative code = 2514-8) Bilirubin, UA (test Negative Negative code = 53360-4) Blood, UA (test code Moderate Negative A = 86467-6) Nitrite, UA (test Positive Negative A code = 5802-4) Leukocytes, UA (test Large Negative A code = 5799-2) Urobilinogen, UA 0.2 0.2-1.0 (test code = 03988-8) RBC, UA (test code = 116 See_Comment [Autom ated 93466-5) message] The system which generated this result transmit fatemeh reference range : /HPF. The reference range was not used to interpret this result as normal/abnormal . WBC, UA (test code = 584 See_Comment [Autom ated 5821-4) message] The system which generated this result transmit fatemeh reference range : /HPF. The reference range was not used to interpret this result as normal/abnormal . [place] UA 20 See_Comment [Automate d (test code = 89600-4) messag e] The system which generated this result transmit fatemeh reference range : /HPF. The reference range was not used to interpret this result as normal/abnormal . Specimen Source (test code = 2795) CINDI (test code = CINDI) [employer] As[employer]er ID - [auto][employer] As[employer]er ID - tech Lab Interpretation Abnormal (test code = 85056-1) [facility] Reflex to Culture 2023-04-21 02:32:21 Test Item Value Reference Range Interpretation Comments Color, UA (test code Yellow = 5778-6) Clarity, UA (test Hazy code = 5767-9) Specific [place], UA 1.038 1.001-1.035 H (test code = 5811-5) pH, UA (test code = 6.5 5.0-8.0 5803-2) Protein, UA (test 100 mg/dL Negative A code = 10135-2) Glucose, UA (test Negative Negative code = 365) Ketones, UA (test Negative Negative code = 2514-8) Bilirubin, UA (test Negative Negative code = 92833-3) Blood, UA (test code Moderate Negative A = 98204-3) Nitrite, UA (test Positive Negative A code = 5802-4) Leukocytes, UA (test Large Negative A code = 5799-2) Urobilinogen, UA 0.2 0.2-1.0 (test code = 14881-1) RBC, UA (test code = 116 See_Comment [Autom ated 76156-5) message] The system which generated this result [...] 20 See_Comment [Automate d (test code = 92614-7) messag e] The system which generated this result transmit fatemeh reference range : /HPF. The reference range was not used to interpret this result as normal/abnormal . Specimen Source (test code = 2795) CINDI (test code = CINDI) [employer]er ID - [auto][employer] As[employer]er ID - tech Lab Interpretation Abnormal (test code = 25906-8) [facility] Culture 2023-04-21 02:32:21 Test Item Value Reference Range Interpretation Comments Color, UA (test code Yellow = 5778-6) Clarity, UA (test Hazy code = 5767-9) Specific [place], UA 1.038 1.001-1.035 H (test code = 5811-5) pH, UA (test code = 6.5 5.0-8.0 5803-2) Protein, UA (test 100 mg/dL Negative A code = 60940-2) Glucose, UA (test Negative Negative code = 365) Ketones, UA (test Negative Negative code = 2514-8) Bilirubin, UA (test Negative Negative code = 77725-7) Blood, UA (test code Moderate Negative A = 19614-9) Nitrite, UA (test Positive Negative A code = 5802-4) Leukocytes, UA (test Large Negative A code = 5799-2) Urobilinogen, UA 0.2 0.2-1.0 (test code = 82415-7) RBC, UA (test code = 116 See_Comment [Autom ated 41475-1) message] The system which generated this result [...] 20 See_Comment [Automate d (test code = 49437-6) messag e] The system which generated this result transmit fatemeh reference range : /HPF. The reference range was not used to interpret this result as normal/abnormal . Specimen Source (test code = 2795) CINDI (test code = CINDI) [employer]er ID - [auto][employer] As[employer]er ID - tech Lab Interpretation Abnormal (test code = 78929-2) [facility] UR[facility] [id number] 02:32:21 Test Item Value Reference Range Interpretation [...] = 516) SOURCE(BEAKER) (test code = 2795) [employer]er ID - [auto][employer] As[employer]er ID - techBLOOD [id number] 06:00:50 Test Item Value Reference Range Interpretation Comments CULTURE (BEAKER) (test No growth in 5 days code = 1095) The specimen volume collected for this blood culture was below the optimum (10 mL per bottle or 20 mL total). Use of lower volumes may adversely affect recovery and/or detection times of some organisms.BLOOD [id number] 06:00:50 Test Item Value Reference Range Interpretation Comments CULTURE (BEAKER) (test No growth in 5 days code = 1095) SARS-COV2/RT-PCR ([facility])2021-11-18 08:28:01 Test Item Value Reference Range Interpretation Comments SARS-COV2/RT-PCR Negative Negative The SARS-Co V-2 target (test code = nucleic acids a re not 5477754) detected in thi s specimen. Negative result [...] revoked sooner. Fact Sheet for Healthcare Providers: https://www.Tonx/Documents/Xpert%20Xpress%20SARS%20CoV-2/Fact%20Sheets/302-3802%95QQTG-KHY-5%20 HEALTHCARE%20PROVIDERS%20FACT%20SHEET.pdf Fact Sheet for Healthcare Patients: https://www.InfiKno/Documents/Xpert%20Xp ress%20SARS%20CoV-2/Fact%20Sheets/302-3801%67GWPJ-BIB-5%20PATIENT%20FACT%20SHEET .[id number] 06:04:17 Test Item Value Reference Range Interpretation Comments MAGNESIUM (BEAKER) 2.1 mg/dL 1.6-2.6 Specimen slightly (test code = 627) hemolyzed [employer]er ID - NADEEM GOperator ID - NADEEM GBASIC METABOLIC [id number] 05:18:17 Test Item Value Reference Range Interpretation [...] S NOT APPLICABLE FOR DIALYSIS PATIEN TS. [employer]er ID - NADEEM GCBC W/PLT COUNT & AUTO [id number] 04:53:25 Test Item Value Reference Range Interpretation [...] (BEAKER) (test code = 2801) BASIC METABOLIC [id number] 04:54:32 Test Item Value Reference Range Interpretation [...] S NOT APPLICABLE FOR DIALYSIS PATIEN TS. [employer]er ID - PIYOANNA [id number] 04:54:32 Test Item Value Reference Range Interpretation Comments MAGNESIUM (BEAKER) (test code = 1.9 mg/dL 1.6-2.6 627) [employer]er ID - MARIA D LCBC W/PLT COUNT & AUTO [id number] 04:16:32 Test Item Value Reference Range Interpretation [...] code = 2801) URINALYSIS W/ REFLEX URINE [id number] 09:09:42 Test Item Value Reference Range Interpretation [...] = 1521) SOURCE(BEAKER) (test code = 2795) [employer]er ID - [auto][employer] As[employer]er ID - techPREGNANCY SCREEN, [id number] 06:44:04 Test Item Value Reference Range Interpretation Comments TEST URINE (BEAKER) (test Negative code = 583) BASIC METABOLIC [id number] 06:03:02 Test Item Value Reference Range Interpretation [...] S NOT APPLICABLE FOR DIALYSIS PATIEN TS. [employer]er ID - PIAYA LCBC W/PLT COUNT & AUTO [id number] 05:11:55 Test Item Value Reference Range Interpretation [...] 0-1 PERCENT (BEAKER) (test code = 2801) [id number] 22:12:00 Test Item Value Reference Range Interpretation Comments ALCOHOL (test code = 80 mg/dL 6764897904) CINDI (test code = Toxic Greater than or CINDI) equal to 80 mg/dL. NOTE: Whole blood values are approximately 10% to 15% lower than serum and plasma. [facility] 20:38[facility]00 Test Item Value Reference Range Interpretation Comments ALCOHOL (test code = 108 mg/dL 1467149013) CINDI (test code = Toxic Greater than or CINDI) equal to 80 mg/dL. NOTE: Whole blood values are approximately 10% to 15% lower than serum and plasma. [facility] - DRUG SCREEN [id number] 18:24:00 Test Item Value Reference Range Interpretation Comments BENZO U (test code = Negative Negative 7169190486) SANDRA U (test code = Negative Negative 7519622325) AMPHET (test code = Negative Negative 0345090925) THC (test code = Negative Negative 0042109099) METHADONE (test code = Negative Negative 6739832055) Meth U (test code = Negative Negative 3274042666) OPIATES (test code = Negative Negative 5017770281) Cocaine Metabolite (test Presumptive Positive Negative A code = 5391078651) PROPOXY (test code = Negative Negative 7025323284) Tric U (test code = Negative Negative 5040205792) PCP (test code = Negative Negative 9980992815) OXYCOD (test code = Negative Negative 6959889923) CINDI (test code = CINDI) Urine Drug [...] testing). Lab Interpretation (test Abnormal code = 56485-9) [facility]PO[facility] [id number] 18:07:00 Test Item Value Reference Range Interpretation Comments POCT PREG (test code = 1605) Negative On board controls acceptable with C Present Line (test code = 3574) Lab Interpretation (test code = Normal 84090-1) [facility] HospitalXR [id number] 17:36:18 Nonobstructive bowel gas pattern. Preliminary Report [...] reviewed this study and agree with the abovereport.[facility] HospitalCOVID-19 (ID NOW RAPID TESTING)2020-12-25 17:13:00 Test Item Value Reference Range Interpretation Comments SARS-CoV-2 Rapid ID NOW Not Detected Not Detected (test code = 43383-5) CINDI (test code = CINDI) ID NOW COVID-19 Assay is an isothermal nucleic acid amplification test intended for the qualitative detection of nucleic acid from SARS-CoV-2 viral RNA in nasopharyngeal (MACHINE CHOCOLATE MOLDER) specimens. It is used under Emergency Use [...] indicated. Lab Interpretation Normal (test code = 93711-2) [facility]OL[facility] 16:37:00 Test Item Value Reference Range Interpretation Comments ALCOHOL (test code = 196 mg/dL 7948160710) CINDI (test code = Toxic Greater than or CINDI) equal to 80 mg/dL. NOTE: Whole blood values are approximately 10% to 15% lower than serum and plasma. [facility] HospitalBASI METABOLIC PANEL (NA, K, CL, CO2, GLUCOSE, BUN, CREATININE, CA)2020-12-25 16:37:00 Test Item Value Reference Range Interpretation Comments NA (test code = 144 mmol/L 135-145 3124006756) K (test code = 4.4 mmol/L 3.5-5 8204735550) CL (test code = 109 mmol/L 98-108 H 7008715289) CO2 TOTAL (test code = 22 mmol/L 23-31 L 0912121059) AGAP (test code = 2-16 6528571502) BUN (test code = 9 mg/dL 7-23 0212776383) GLUCOSE (test code = 103 mg/dL 70-110 6979986796) CREATININE (test code = 0.66 mg/dL 0.5-1.04 9000282672) CALCIUM (test code = 8.9 mg/dL 8.6-10.6 8704258686) eGFR Calculation mL/min/1.73m2 (Non-) (test code = 9281843187) eGFR Calculation mL/min/1.73m2 () (test code = 8286620896) CINDI (test code = CINDI) Association of [...] tests). Lab Interpretation Abnormal (test code = 45678-2) [facility] WITH [id number] 16:25:00 Test Item Value Reference Range Interpretation Comments WBC (test code = See_Comment H [Automated 6690-2) message] The sy stem which generated this [...] RDW-SD (test code = 41.1 fL 39-49.9 32320-9) RDW-CV (test code = 12.3 % 12-15.5 788-0) PLT (test code = See_Comment H [Automated 777-3) message] The sy stem which generated this result transmitted reference range : 166 - 358 10*3/ ?L. The reference r carlos was not used to interpret this result as normal/abnormal . MPV (test code = 9.2 fL 9.5-12.9 L 42714-4) NRBC/100 WBC (test See_Comment [Automat ed code = 0750710315) message] The system which generated this result transmitted reference range : 0.0 - 10.0 /100 WBCs. The refer ence range was not u sed to interpret th is result as normal/abnormal . NRBC x10^3 (test code <0.01 See_Comment [Auto mated = 9021618093) message] The s ystem which generated this result transmitted reference range : 10*3/?L. The reference range was not used to interpret this result as normal/abnormal . GRAN MAT (NEUT) % 68.0 % (test code = 770-8) IMM GRAN % (test code 0.50 % = 3350132543) LYMPH % (test code = 20.5 % 736-9) MONO % (test code = 6.6 % 5905-5) EOS % (test code = 3.9 % 713-8) BASO % (test code = 0.5 % 706-2) GRAN MAT x10^3(ANC) 8.09 10*3/uL 1.88-7.09 H (test code = 6461791346) IMM GRAN x10^3 (test 0.06 10*3/uL 0-0.06 code = 8244866521) LYMPH x10^3 (test code 2.43 10*3/uL 1.32-3.29 = 731-0) MONO x10^3 (test code 0.78 10*3/uL 0.33-0.92 = 742-7) EOS x10^3 (test code = 0.46 10*3/uL 0.03-0.39 H 711-2) BASO x10^3 (test code 0.06 10*3/uL 0.01-0.07 = 704-7) Lab Interpretation Abnormal (test code = 16128-1) [facility] (ID NOW RAPID TESTING)2020-07-15 19:30:00 Test Item Value Reference Range Interpretation Comments SARS-CoV-2 Rapid ID NOW Not Detected Not Detected (test code = 55528-6) CINDI (test code = CINDI) ID NOW COVID-19 Assay is an isothermal nucleic acid amplification test intended for the qualitative detection of nucleic acid from SARS-CoV-2 viral RNA in nasopharyngeal (MACHINE CHOCOLATE MOLDER) specimens. It is used under Emergency Use [...] indicated. Lab Interpretation Normal (test code = 24202-7) [facility]. METABOLIC PANEL (64316)2020-07-15 19:20:00 Test Item Value Reference Range Interpretation Comments NA (test code = 136 mmol/L 135-145 2344699865) K (test code = 4.6 mmol/L 3.5-5 0530119557) CL (test code = 102 mmol/L 98-108 6493396331) CO2 TOTAL (test code = 21 mmol/L 23-31 L 2581063507) AGAP (test code = 2-16 3701600926) BUN (test code = 7 mg/dL 7-23 4734224424) GLUCOSE (test code = 102 mg/dL 70-110 [id number]) CREATININE (test code = 0.82 mg/dL 0.5-1.04 3113599138) TOTAL BILI (test code = 0.8 mg/dL 0.1-1.2 7235317435) CALCIUM (test code = 9.8 mg/dL 8.6-10.6 7297337901) T PROTEIN (test code = 8.4 g/dL 6.3-8.2 H 4102684070) ALBUMIN (test code = 4.8 g/dL 3.5-5 9131650372) ALK PHOS (test code = 102 U/L 34-122 3192725768) ALTv (test code = 25 U/L 5-35 1742-6) AST(SGOT) (test code = 41 U/L 13-40 H 8363184669) eGFR Calculation mL/min/1.73m2 (Non-) (test code = 9082636289) eGFR Calculation mL/min/1.73m2 () (test code = 6800608668) CINDI (test code = CINDI) Association of [...] tests). Lab Interpretation Abnormal (test code = 14023-2) [facility] Test Item Value Reference Range Interpretation Comments APPEARANCE (test code = Hazy Clear A 5853285311) COLOR (test code = Yvonne Yellow A 6694893264) PH (test code = 4.8-8.0 7164736540) SP GRAVITY (test code = 1.003-1.030 9099853270) GLU U QUAL (test code = Normal Normal 6491061573) BLOOD (test code = Negative Negative 0411832703) KETONES (test code = 5 mg/dL Negative A 8329347460) PROTEIN (test code = 30 mg/dL Negative A 2887-8) UROBILIN (test code = 2.0 mg/dL Normal A 1103170664) BILIRUBIN (test code = Negative Negative 9980294269) NITRITE (test code = Negative Negative 4488865604) LEUK SHIRLEY (test code = 25/uL Negative A 8883992662) RBC/HPF (test code = See_Comment [Autom ated message] 9726586732) The system Pops generated this result transmit fatemeh reference range : 0 - 3 HPF. The refe rence range was not u sed to interpret th is result as normal/abnormal . WBC/HPF (test code = See_Comment [Autom ated message] 7653408293) The system Pops generated this result transmit fatemeh reference range : 0 - 5 HPF. The refe rence range was not u sed to interpret th is result as normal/abnormal . BACTERIA (test code = Few Negative A 4963607826) MUCOUS (test code = Moderate Negative LPF A 2759414820) SQ EPITH (test code = HPF 4656699191) HYAL CAST (test code = See_Comment H [Aut omated message] 2734586821) The system ic h generated this result transmit fatemeh reference range : <=2 LPF. The refere nce range was not u sed to interpret th is result as normal/abnormal . Lab Interpretation (test Abnormal code = 67305-4) [facility] WITH [id number] 19:07:00 Test Item Value Reference Range Interpretation [...] (test code = 38.5 fL 39-49.9 L 37553-9) RDW-CV (test code = 11.9 % 12-15.5 L 788-0) PLT (test code = See_Comment [Automated 777-3) message] The system which generated this result transmit fatemeh reference range : 166 - 358 10*3/ ?L. The reference range was not u sed to interpret th is result as normal/abnormal . MPV (test code = 9.5 fL 9.5-12.9 00698-3) NRBC/100 WBC (test See_Comment [Automat ed code = 5551218686) message] The system which generated this result transmit fatemeh reference range : 0.0 - 10.0 /100 WBCs. The reference range was not used to interpret this result as normal/abnormal . NRBC x10^3 (test code <0.01 See_Comment [Auto mated = 9661348890) message] The system which generated this result transmit fatemeh reference range : 10*3/?L. The reference range was not used to interpret this result as normal/abnormal . GRAN MAT (NEUT) % 79.2 % (test code = 770-8) IMM GRAN % (test code 0.40 % = 2699154605) LYMPH % (test code = 12.9 % 736-9) MONO % (test code = 5.2 % 5905-5) EOS % (test code = 1.9 % 713-8) BASO % (test code = 0.4 % 706-2) GRAN MAT x10^3(ANC) 11.12 10*3/uL 1.88-7.09 H (test code = 4083943730) IMM GRAN x10^3 (test 0.05 10*3/uL 0-0.06 code = 2472832961) LYMPH x10^3 (test code 1.81 10*3/uL 1.32-3.29 = 731-0) MONO x10^3 (test code 0.73 10*3/uL 0.33-0.92 = 742-7) EOS x10^3 (test code = 0.27 10*3/uL 0.03-0.39 711-2) BASO x10^3 (test code 0.05 10*3/uL 0.01-0.07 = 704-7) Lab Interpretation Abnormal (test code = 98169-9) [facility] [id number] 18:47:00 Test Item Value Reference Range Interpretation Comments POCT PREG (test code = 1605) negative On board controls acceptable with present C Line (test code = 3574) POCT PREG LOT # (test code = 3575) [id number] POCT PREG TEST DATE (test code = 3576) Lab Interpretation (test code = Normal 20561-2) [facility] 1 [id number] 22:08:34 No acute cardiopulmonary process. Preliminary Report [...] this study and agree with theabove report. [facility] VW [id number] 12:56:21 1. No acute intrathoracic abnormality, specifically no detectableradiographic findings to suggest COVID-19 pneumonia. Disclaimer: Generally, the findings on chest imaging in COVID-19 are notspecific, and overlap with other infections, including influenza, H1N1,SARS and MERS.According to the Centers for Disease Control (CDC) and the [employer], viral testing remains the only [...] Centers for Disease Control (CDC) and the [employer], viral testing remains the only specific method of diagnosiseven if CXR or CT findings are suggestive of COVID-19. Preliminary Report Dictated by Resident: Doreen Wilkinson, Margy Goode MD.,have reviewed this study and agree with theabove report.[facility]. METABOLIC PANEL (74268)2020-03-22 08:04:00 Test Item Value Reference Range Interpretation Comments NA (test code = 138 mmol/L 135-145 9981875496) K (test code = 3.5 mmol/L 3.5-5 5924094866) CL (test code = 105 mmol/L 98-108 9862584309) CO2 TOTAL (test code = 22 mmol/L 23-31 L 4642329895) AGAP (test code = 2-16 1195586084) BUN (test code = 7 mg/dL 7-23 2301363824) GLUCOSE (test code = 99 mg/dL 70-110 3285667638) CREATININE (test code = 0.74 mg/dL 0.5-1.04 4884293913) TOTAL BILI (test code = 0.5 mg/dL 0.1-1.3 7562372682) CALCIUM (test code = 8.5 mg/dL 8.6-10.6 L 7450224516) T PROTEIN (test code = 6.7 g/dL 6.3-8.2 2670663296) ALBUMIN (test code = 4.1 g/dL 3.5-5 3262232463) ALK PHOS (test code = 74 U/L 34-122 6358135327) ALTv (test code = 32 U/L 5-35 1742-6) AST(SGOT) (test code = 54 U/L 13-40 H 9994491932) eGFR Calculation mL/min/1.73m2 (Non-) (test code = 9973743411) eGFR Calculation mL/min/1.73m2 () (test code = 3548681545) CINDI (test code = CINDI) Association of [...] tests). Lab Interpretation Abnormal (test code = 70360-4) [facility] HospitalTRSHAHIDN [id number] 07:57:00 Test Item Value Reference Range Interpretation Comments TROPONIN I (test <0.012 See_Comment [Automated code = 5549384732) message] The system which generated this result [...] ? Lab Interpretation Normal (test code = 05614-9) [facility] COVID-19 [id number] 07:56:00 Test Item Value Reference Range Interpretation Comments SARS-CoV-2 (test code = Not Detected Not Detected 86641-2) CINDI (test code = CINDI) ID NOW COVID-19 Assay is an isothermal nucleic acid amplification test intended for the qualitative detection of nucleic acid from SARS-CoV-2 viral RNA in nasopharyngeal (MACHINE CHOCOLATE MOLDER) specimens. It is used under Emergency Use [...] indicated. Lab Interpretation Normal (test code = 85322-3) [facility] HospitalLIPASE, [id number] 07:45:00 Test Item Value Reference Range Interpretation Comments LIPASE (test code = 2010087415) 58 U/L 0-220 Lab Interpretation (test code = Normal 23996-7) [facility] WITH [id number] 07:30:00 Test Item Value Reference Range Interpretation Comments WBC (test code = See_Comment [Automated 6690-2) message] The sy stem which generated this [...] RDW-SD (test code = 39.8 fL 39-49.9 62615-8) RDW-CV (test code = 12.1 % 12-15.5 788-0) PLT (test code = See_Comment [Automated 777-3) message] The sy stem which generated this result transmitted reference range : 166 - 358 10*3/ ?L. The reference r carlos was not used to interpret this result as normal/abnormal . MPV (test code = 9.2 fL 9.5-12.9 L 85348-6) NRBC/100 WBC (test See_Comment [Automat ed code = 1444465960) message] The system which generated this result transmitted reference range : 0.0 - 10.0 /100 WBCs. The refer ence range was not u sed to interpret th is result as normal/abnormal . NRBC x10^3 (test code <0.01 See_Comment [Auto mated = 0624449848) message] The s ystem which generated this result transmitted reference range : 10*3/?L. The reference range was not used to interpret this result as normal/abnormal . GRAN MAT (NEUT) % 62.2 % (test code = 770-8) IMM GRAN % (test code 0.50 % = 4466318963) LYMPH % (test code = 24.6 % 736-9) MONO % (test code = 7.7 % 5905-5) EOS % (test code = 4.5 % 713-8) BASO % (test code = 0.5 % 706-2) GRAN MAT x10^3(ANC) 6.71 10*3/uL 1.88-7.09 (test code = 0827065479) IMM GRAN x10^3 (test 0.05 10*3/uL 0-0.06 code = 7153001690) LYMPH x10^3 (test code 2.65 10*3/uL 1.32-3.29 = 731-0) MONO x10^3 (test code 0.83 10*3/uL 0.33-0.92 = 742-7) EOS x10^3 (test code = 0.49 10*3/uL 0.03-0.39 H 711-2) BASO x10^3 (test code 0.05 10*3/uL 0.01-0.07 = 704-7) Lab Interpretation Abnormal (test code = 22391-6) [facility] METABOLIC [id number] 17:09:00 Test Item Value Reference Range Interpretation [...] = ALKP) Specimen comments: ccSpecimen comments: SEPSIS [id number] 17:09:00 Test Item Value Reference Range Interpretation Comments LIPASE (test code = LIP) 318 Unit/L 114-286 H Specimen comments: ccSpecimen comments: SEPSIS [id number] 17:09:00 Test Item Value Reference Range Interpretation [...] change s in troponin levelscharacter istic of [place]. Specimen comments: ccSpecimen comments: SEPSIS WORKUPPROCALCITONIN (PCT) [...] = ALKP) Specimen comments: ccSpecimen comments: SEPSIS [id number] 17:03:00 Test Item Value Reference Range Interpretation Comments LIPASE (test code = LIP) 318 Unit/L 114-286 H Specimen comments: ccSpecimen comments: SEPSIS [id number] 17:03:00 Test Item Value Reference Range Interpretation [...] change s in troponin levelscharacter istic of RI. Specimen comments: ccSpecimen comments: SEPSIS WORKUPPROCALCITONIN (PCT) 2020-02-17 17:03:00 Test Item Value Reference Range Interpretation Comments PROCALCITONIN (PCT) (test code = NG/ML 0.00-0.10 PROCAL) Specimen comments: ccSpecimen comments: SEPSIS WORKUPLACTIC [id number] 17:01:00 Test Item Value Reference Range Interpretation Comments LACTIC ACID (test code = LACT) 1.4 mmol/L 0.4-2.0 N Specimen comments: ccBASIC METABOLIC [id number] 16:58:00 Test Item Value Reference Range Interpretation [...] = ALKP) Specimen comments: ccSpecimen comments: SEPSIS [id number] 16:58:00 Test Item Value Reference Range Interpretation Comments LIPASE (test code = LIP) 318 Unit/L 114-286 H Specimen comments: ccSpecimen comments: SEPSIS [id number] 16:58:00 Test Item Value Reference Range Interpretation [...] HE NEGATIVERESULT DOES NOT RULE OUT THE NH ESENCE OF STREP GROUP A.W HEN STREP GROUP A ANTIGEN IS DETECTED, THE P OSITIVE RESULTIS SIGNIF ICANT. NEGATIVE RESULT S REFLEX A CULTURE. FORNEG ATIVE RESULTS A CULTU RE IS IN PROGRESS, RESUL T TO FOLLOW. HCG SERUM [id number] 16:55:00 Test Item Value Reference Range Interpretation Comments HCG SERUM QUAL (test code = HCGQL) NEG SCREEN NEG Specimen comments: SEPSIS WORKUP- XR CHEST 2 [id number] 16:55:00 FAX: Julia Sanz [phone] [place]: E St: PRE Patient Name: JAIDEN PLATA Unit No: [id number] EXAMS: CPT CODE: [id number] XR CHEST 2 V 49796 PA and lateral views of the chest [...] D/T: S: 02/17/2020 (1657) KILLIAN Crawford NAME: CHRI[address] PHYS: Julia R[place], [place] [address] : 1980 AGE: 39 SEX: F LOC: ELIGIO PHONE #: [phone] EXAM DATE: 02/17/2020 STATUS: PRE ER FAX #: [phone] RAD NO: DC Dt: PAGE 1 Signed ReportUA RFLX MICR CULT IF [id number] 16:51:00 Test Item Value Reference Range Interpretation [...] Sepsis-no other srcUA RFLX MICR CULT IF [id number] 16:47:00 Test Item Value Reference Range Interpretation [...] for culture: Sev. Sepsis-no other srcCBC W/AUTO [id number] 16:45:00 Test Item Value Reference Range Interpretation [...] comments: cc Notes Date/Time Note Provider Source 2023-05-01 22:04:15-00:00 CHANCE PANDYA [facility] OPERATIVE/PROCEDURE REPORT JAIDEN PLATA FACILITY: [facility] Billing #: [id number] Room: [address] [place] [address] MR #: [id number] : 1980 DATE OF PROCEDURE: 04/21/2023 SURGEON: Chance Pandya MD PREOPERATIVE DIAGNOSIS: Foreign body in bladder with pelvic pain and hematuria. POSTOPERATIVE DIAGNOSIS: Foreign body in bladder with pelvic pain and hematuria; bladder perforation. PROCEDURES PERFORMED: Cystoscopy, pelvic and paul dder exploration with cystotomy and bladder repair an d foreign body extraction, complex Hussein catheter insertion. ASSISTANTS: Dr. Bola Stallings and Dr. Dyllan Felipe. ANESTHESIA: General. PROCEDURE IN DETAIL: With the patient in the mod ified dorsal lithotomy position on the operating table after the satisfactory induction of general anesthesia, th e abdomen, groins and genitalia were thoroughly prepped and draped in usual sterile fashion. Prep was performed such t hat we could proceed from cystoscopic approach to abdominal e xploration if necessary without having to re-prep and redrape. The 21-Divehi cystoscope was passed per urethra. Within the bl adder, we could see the presence of a large foreign body o bject, which was positioned such that the cephalad end of it appeared to be pushing into and possibly through the upper dome portion of the bladder. The bladder was thoroughly inspected an d did not appear to be losing irrigant and the bladder was able to be filled. There was also a mucosal abrasion in the lower left posterior wall, but this did not appear to perfo rate. The ureteral orifices appeared normal and showed kaci ar efflux. An attempt was made to grasp the foreign body using a large basket. However, we were not able to engage it a nd it did not appear feasible to remove the object per urethra because of its size, diameter, and orientation, as well as cons idering the diameter to which the urethra would have to be dilated for transur ethral removal which could be damaging. We then decided to proceed to open surgical bladder exploration as had been th oroughly discussed with the patient preoperatively. A low er midline incision was made and was carried down through t he rectus fascia. The musculature was in the mid line and the retropubic space was entered. We could appreciat e that the cephalad portion of the foreign body had perfora fatemeh through the mucosa and muscularis of the bladder and it was from the peritoneal cavity only by a thin membrane of residual peritoneum and some granulation tissue. We made an anterior midline vertical cystotomy with the electrocaute ry and we were able to remove the foreign body completely and s ent it to pathology for identification. We also sent a sma ll amount of adjacent tissue at the cephalad perforation for pathology as well. We appreciated that the perforation at the dome of the bladder had thinned out the bladder to the point where there was no muscularis present, only this inflammator y, possibly peritoneal membrane. In order to adequately repa ir the injury, we continued the cystotomy cephalad and opened it d irectly through this anterior perforation. We then excised this tissue at the anterior cephalad perforation back to healthy ap pearing muscularis and mucosa such that we could properl y close the bladder. After this was completed and the interi or of the bladder was thoroughly examined and deemed to be otherwise intact. The bladder was then closed in three lay ers using 3-0 and 2-0 Vicryl suture. The inner layer consisted of mucosa and submucosa, followed by a running 2-0 Vicryl reap proximation of the detrusor muscle, followed by a 3rd outer lay er imbricating the perivesical tissues providing an excellent a ppearing repair with excellent muscularis reapproximation throug hout. The Hussein catheter was upsized to a 20-Divehi Hussein catheter and irrigated freely with clear efflux and there was no leak. After this, the Hussein catheter was attached to a drainage bag and then the wound was closed in layers using in terrupted 0 chromic sutures to reapproximate the rectus musc le in the midline, followed by #1 PDS running closure of t he midline rectus fascia. The subcutaneous tissues were ronal y thoroughly irrigated with copious amounts of saline and the n these were approximated with 3-0 Vicryl as was the subderma l layer. The wound was closed with sarkis and then the entir e surgical site was cleaned and dried and sterile dressings were applied. The patient was then returned to the supine position where she was awakened and transferred by stretcher to recover y room in satisfactory condition. There were no complicati ons. Blood loss was about 20 mL. Counts were correct. Speci men was as noted above. MC/MODL /[id number] cc: Chance Pandya MD Electronically signed by: CHANCE PANDYA at 202 02-03-31 18:33:58.000 2020-05-12 01:03:00-00:00 [facility] ([facility]) EMERGENCY PROVIDER REPORT REPORT#:[id number] REPORT STATUS: Signed DATE:05/12/20 TIME: 102 PATIENT: JAIDEN PLATA UNIT #: [id number] ROOM/BED: AGE: 39 SEX: F PCP PHYS: No Primary or Family Ph ysician SERVICE AUTHOR: Parveen Poole MD * ALL edits or amendments must be made on the Review Trackers/computer document * HPI-Syncope General Initial Greet Date/Time [...] which required "shocks" at a different hospital [facility] months ago. Review of Systems ROS [...] 106 / 0040 O2 Delivery Room air 05/12 0040 Temp 98.3 05/12 0040 Pulse 105 / 0040 Resp 16 05/12 0040 Last Documented: Result Date Time Pulse Ox 99 / 0040 B/P 146/87 05/12 0040 B/P Mean 106 / 0040 O2 Delivery Room air 05/12 0040 Temp 98.3 05/12 0040 Pulse 105 [...] Pulse Ox 99 06/ 0040 B/P 146/87 / 0040 B/P Mean 106 06/11 0040 O2 Delivery Room air / 0040 Temp 98.3 06/11 0040 Pulse 105 06/11 0040 Resp 16 06/ 0040 Last Documented: Result Date Time Pulse Ox 99 06/11 0040 B/P 146/87 06/11 0040 B/P Mean 106 06/11 0040 O2 Delivery Room air 06/ 0040 Temp 98.3 06/11 0040 Pulse 105 06/11 0040 Resp 16 / 0040 All vital signs available at the time of this en try have been reviewed. Clinical Impression Clinical Impression Primary Impression: Anxiety Secondary Impressions: Syncope Discharge/Care Plan (Auto) Prescriptions Current Visit Scripts No Known Home Medications Referrals No Primary or Family Physician (PCP) Electronically Signed by Parveen Poole MD on 05/12 at 1424 RPT #:[id number] END OF REPORT 2020-02-17 16:01:00-00:00 [facility] ([facility]) EMERGENCY PROVIDER REPORT REPORT#:[id number] REPORT STATUS: Signed DATE:02/17/20 TIME: 1601 PATIENT: JAIDEN PLATA UNIT #: [id number] ROOM/BED: AGE: 39 SEX: F PCP PHYS: No Primary or Family Ph ysician SERVICE AUTHOR: Juila Buckner * ALL edits or amendments must be made on the Review Trackers/computer document * TCT-Ppr-Ccpz Illness General Confirmed Patient Yes Initial Greet [...] denies any travel within or out of t country in the last 4 weeks,and she [...] Signs Reviewed Focused PE General/Const General/Const Awake, Alert , No acute distress, Well developed, Well hydrated, Well nourished, Cooperative, [...] % (Auto) (14.1 - 45.4 %) 19.1 Frio % (Auto) (2.5 - 11.7 %) 8.0 Eos % (Auto) (0.0 - 6.2 %) 6.0 Baso % (Auto) (0.0 - 2.1 %) 0.3 Gran # (2.0 - 13.7 k/mm3) 3.98 Lymph # (Auto) (0.6 - 3.8 K/mm3) 1.15 Frio # (Auto) (0.11 - 0.59 K/mm3) 0.48 [...] - 8.0 pH UNITS) 6.0 Ur Specific [place] (1.001 - 1.035 SG) 1.009 Urine Protein [...] she will be discharged on orquidea carlos rcoft. The [facility] is [facility] to [facility], [...] addressed any concerns. The patient and/or careg garcy have as good an understanding of the [...] symptoms should prompt an immediate return to [facility] or the closest emergency department or a call to 911. Quality Measures Tobacco Screening/Cessation 18 years or older, T obacco user, Counseled 3-10 minutes Free Text Depart Notes Free Text Depart Notes RefFered to Ava Esteban Electronically Signed by Julia Buckner on 01/31 at 2108 RPT #:[id number] END OF REPORT 2020-02-17 16:01:00-00:00 [facility] ([facility]) EMERGENCY PROVIDER REPORT REPORT#:[id number] REPORT STATUS: Signed DATE:02/17/20 TIME: 1601 PATIENT: JAIDEN PLATA UNIT #: [id number] ROOM/BED: AGE: 39 SEX: F PCP PHYS: No Primary or Family P hysician SERVICE AUTHOR: Julia Buckner * ALL edits or amendments must be made on the Review Trackers/computer document * Julia Buckner 02/17/20 1601: ERT-Txd-Dsci Illness General Confirmed Patient Yes Assumed Care [...] denies any travel within or out of [facility] country in the last 4 weeks,and she [...] [Embedded Image Not Available] Laboratory Tests: 02/16 161 Chemistry Lactic Acid (0.4 - 2.0 mmol/L) [...] % (Auto) (14.1 - 45.4 %) 19.1 Frio % (Auto) (2.5 - 11.7 %) 8.0 Eos % (Auto) (0.0 - 6.2 %) 6.0 Baso % (Auto) (0.0 - 2.1 %) 0.3 Gran # (2.0 - 13.7 k/mm3) 3.98 Lymph # (Auto) (0.6 - 3.8 K/mm3) 1.15 Frio # (Auto) (0.11 - 0.59 K/mm3) 0.48 [...] - 8.0 pH UNITS) 6.0 Ur Specific [place] (1.001 - 1.035 SG) 1.009 Urine Protein [...] Report Impression - Status: SIGNED Entered: 02/17/2020 1658 Impression: Normal Impression By: Lisa Colon MD [...] any infiltrates or pneumonia. Time of Re-Eval 7 Re-Eval Status Improved Plan Post Re-Eval her [...] symptoms should prompt an immediate return to [facility] or the closest emergency department or a call to 911. Quality Measures Tobacco Screening/Cessation 18 years or older, T obacco user, Counseled 3-10 minutes Free Text Depart Notes Free Text Depart Notes RefFered to Nikhil Bui 02/19/20 5748: CHR-Vos-Schr Illness General Initial Greet Date/Time 02/17/20 1559 Patient Discharge Departure Supervising Physician Note MidLv Saw Pt Alone I have reviewed the PA/MACHINE CHOCOLATE MOLDER's note and plan of car e. I was available for consultation as needed at al l times during the patient's visit in the emergency department. I agree with the clinical impression , plan and disposition. Electronically Signed by Julia Buckner on 01/31 at 2108 Electronically Signed by Nikhil Santos DO on at 0788 RPT #:[id number] END OF REPORT
[2023-07-05] MEDS ORDERED: MORPHINE 4 MG/ML SYR ONE (02:51)
[2023-07-05] MEDS ORDERED: ONDANSETRON 4 MG/2 ML VIAL ONE (02:52)
[2023-07-05] MEDS ORDERED: FAMOTIDINE 20 MG/2 ML VIAL IV ONE (02:52)
[2023-07-05] MEDS ORDERED: NA CHLORIDE 0.9% 1,000 ML ONE (02:52)
[2023-07-05] MEDS ORDERED: KETOROLAC 30 MG/ML INJ ONE (02:52)
[2023-07-05 03:24] LABS: Absolute Lymphocytes (CBC) 1.5 K/uL (0.7-4.9); Hematocrit 42.1 % (36.0-45.0); Lymphocytes % 13.8 % (15.3-44.8); MCV 92.5 fL (80-100); MPV 7.4 fL (7.6-11.3); RBC Red Blood Cell Count 4.56 M/uL (3.86-4.86)
[2023-07-05 03:42] LABS: Albumin 3.4 g/dL (3.4-5.0); Bilirubin Total 0.3 mg/dL (0.2-1.0); Potassium 3.9 mEq/L (3.5-5.1); Protein, Total 7.3 g/dL (6.4-8.2)
[2023-07-05] MEDS ORDERED: PROMETHAZINE INJ 25 MG/ML AMP ONE ×2 (04:37→05:58)
[2023-07-05 05:22] LABS: Specific Gravity > 1.030 (1.005-1.030); Urine Bacteria None Seen /HPF (<20); Urine Bilirubin NEGATIVE (Negative); Urine Blood Negative (Negative); Urine Clarity Clear (Clear); Urine Color Light-Yellow (Yellow); Urine Glucose NEGATIVE (Negative); Urine Mucus Slight /HPF (None Seen); Urine Protein 1+ (Negative); Urine RBC <5 /HPF (None Seen); Urine Urobilinogen Normal (Normal)
--- NOTE | 2023-07-05 05:38 | ER ---
[facility] Name: Gabrielle Plata Age: 42 yrs Sex: Female : 1980 Arrival Date: 07/05/2023 Time: 02:24 Bed 13 Private MD: Garret Carver Diagnosis: Left sided colitis;Vomiting;Diarrhea, unspecified;Crohn's disease, unspecified, without complications Presentation: 07/05 02:27 Chief complaint: Patient states: LUQ pain of 7 with nausea, vomiting x 15 episodes and pf1 diarrhea x 6 episodes in the past 24 hours,onset yesterday AM. 02:27 Coronavirus screen: Vaccine status: Patient reports being unvaccinated. Client denies pf1 travel out of the [place] in the last 14 days. At this time, the client does not indicate any symptoms associated with coronavirus-19. Ebola Screen: Patient negative for fever greater than or equal to 101.5 degrees Fahrenheit, and additional compatible Ebola Virus Disease symptoms. Initial Sepsis Screen: Does the patient meet any 2 criteria? HR > 90 bpm. No. Patient's initial sepsis screen is negative. Does the patient have a suspected source of infection? No. Patient's initial sepsis screen is negative. Risk Assessment: Do you want to hurt yourself or someone else? Patient reports no desire to harm self or others. 02:27 Method Of Arrival: Ambulatory pf1 02:27 Acuity: CATHIE 3 pf1 03:43 Onset of symptoms was June 28, 2023. jw7 Triage Assessment: 03:41 General: Appears distressed, uncomfortable, ill, Behavior is calm, cooperative, jw7 anxious. Pain: Complains of pain in abdomen. Neuro: Level of Consciousness is awake, alert, obeys commands, Oriented to person, place, time, situation. Cardiovascular: Capillary refill < 3 seconds Patient's skin is warm and dry. Respiratory: Airway is patent Trachea midline Respiratory effort is even, unlabored, Respiratory pattern is regular, symmetrical. GI: Reports diarrhea, nausea, vomiting. Historical: - Allergies: 02:45 cefepime; pf1 02:45 Codeine; pf1 02:45 Demerol; pf1 02:45 Sulfa (Sulfonamide Antibiotics); pf1 02:45 Tramadol HCl; pf1 - PMHx: 02:45 Crohn's Disease; Anxiety; pf1 - PSHx: 02:45 urethra surgery; tubal ligation; Cholecystectomy; breast augmentation; bladder surgery; pf1 abdominal surgery due to foreign object; - Immunization history:: Adult Immunizations up to date, Client reports having NOT received the Covid vaccine. Last tetanus immunization: < 5 years ago Flu vaccine is not up to date. - Social history:: Smoking status: Patient reports the use of cigarette tobacco products, smokes one-half pack cigarettes per day, Patient uses alcohol, occasionally. Patient/guardian denies using street drugs. - Family history:: not pertinent. Screenin:40 [facility] ED Fall Risk Assessment (Adult) History of falling in the last 3 months, jw7 including since admission No falls in past 3 months (0 pts) Score/Fall Risk Level 0 - 2 = Low Risk. Abuse screen: Denies threats or abuse. Denies injuries from another. Nutritional screening: No deficits noted. Tuberculosis screening: No symptoms or risk factors identified. Assessment: 02:27 General: See Triage Assessment. jw7 03:30 Reassessment: Patient appears in no apparent distress at this time. Patient and/or jw7 family updated on plan of care and expected duration. Pain level reassessed. Patient is alert, oriented x 3, equal unlabored respirations, skin warm/dry/pink. Patient states feeling better. 04:30 Reassessment: Patient appears in no apparent distress at this time. Patient and/or jw7 family updated on plan of care and expected duration. Pain level reassessed. Patient is alert, oriented x 3, equal unlabored respirations, skin warm/dry/pink. 05:31 Reassessment: Patient appears in no apparent distress at this time. Patient and/or jw7 family updated on plan of care and expected duration. Pain level reassessed. Patient is alert, oriented x 3, equal unlabored respirations, skin warm/dry/pink. Patient states feeling better. Patient states symptoms have improved. 05:43 General: Discharge pending ABX completion. jw7 06:41 Reassessment: Patient appears in no apparent distress at this time. Patient and/or jw7 family updated on plan of care and expected duration. Pain level reassessed. Patient is alert, oriented x 3, equal unlabored respirations, skin warm/dry/pink. 07:00 Reassessment: Patient appears in no apparent distress at this time. Patient and/or kc6 family updated on plan of care and expected duration. Pain level reassessed. Patient is alert, oriented x 3, equal unlabored respirations, skin warm/dry/pink. d/c pending cipro completion. Vital Signs: 02:27 BP 147 / 94; Pulse 94; Resp 18; Temp 98.2; Pulse Ox 98% on R/A; Weight 56.25 kg; Height pf1 5 ft. 0 in. ; Pain 7/10; 02:30 BP 147 / 94; Pulse 100; Resp 20 S; Pulse Ox 98% on R/A; jw7 03:24 BP 148 / 101; Pulse 85; Resp 19 S; Pulse Ox 97% on R/A; jw7 04:30 BP 157 / 91; Pulse 86; Resp 19 S; Pulse Ox 98% on R/A; jw7 06:06 BP 159 / 98; Pulse 76; Resp 18 S; Pulse Ox 99% on R/A; jw7 07:26 BP 140 / 82; Pulse 75; Resp 19 S; Pulse Ox 98% on R/A; kc6 02:27 Body Mass Index 24.22 (56.25 kg, 152.4 cm) pf1 02:27 Pain Scale: Adult pf1 ED Course: 02:25 Patient arrived in ED. am2 02:25 Garret Carver MD is Private Physician. am2 02:28 Oralia Momin, RN is Primary Nurse. jw7 02:32 Sam Ramirez MD is Attending Physician. to 02:45 Triage completed. pf1 03:00 Initial lab(s) drawn, by or, sent to lab. Inserted saline lock: 22 gauge in left 7 antecubital area, using aseptic technique. Blood collected. 03:21 CBC with Diff Sent. jw7 03:21 CMP Sent. jw7 03:21 Lipase Sent. jw7 03:40 Patient has correct armband on for positive identification. Bed in low position. Call [facility] light in reach. Side rails up X2. 04:21 Arm band placed on. jw7 04:35 CT Abd/Pelvis - IV Contrast Only In Process Unspecified. EDMS 05:37 Garret Carver MD is Referral Physician. [facility] 05:38 Courtney Coleman MD is Referral Physician. to 07:00 Urine Culture Sent. jw7 07:10 Report received from Eric Padron RN. kc6 08:03 No provider procedures requiring assistance completed. IV discontinued, intact, kc6 bleeding controlled, No redness/swelling at site. Pressure dressing applied. Administered Medications: 03:21 Drug: NS 0.9% IV 1000 ml Route: IV; Rate: 1 bolus; Site: left antecubital; jw7 04:41 Follow up: Response: No adverse reaction; IV Status: Infusion continued; IV Intake: jw7 300ml 03:21 Drug: Famotidine IVP 20 mg Route: IVP; Site: left antecubital; jw7 04:41 Follow up: Response: No adverse reaction jw7 03:21 Drug: TORadol - Ketorolac IVP 15 mg Route: IVP; Site: left antecubital; jw7 04:42 Follow up: Response: No adverse reaction jw7 03:21 Drug: morphine IVP or IV 4 mg Route: IVP; Infused Over: 4 mins; Site: left antecubital; jw7 04:42 Follow up: Response: No adverse reaction jw7 03:21 Drug: Ondansetron IVP 8 mg Route: IVP; Site: left antecubital; jw7 04:41 Follow up: Response: No adverse reaction jw7 04:41 Drug: Promethazine IVP 12.5 mg Route: IVP; Site: left antecubital; jw7 05:31 Follow up: Response: No adverse reaction jw7 06:13 Drug: metroNIDAZOLE IVPB 500 mg Volume: 100 ml; Route: IVPB; Rate: 200 ml/hr; Infused jw7 Over: 30 mins; Site: left antecubital; 07:00 Follow up: Response: No adverse reaction; IV Status: Completed infusion; IV Intake: jw7 100ml 06:13 Drug: MethylPrednisoLONE IVP 125 mg Route: IVP; Site: left antecubital; jw7 07:00 Follow up: Response: No adverse reaction jw7 06:13 Drug: Promethazine IM 12.5 mg Route: IM; Site: right deltoid; jw7 07:00 Follow up: Response: No adverse reaction jw7 07:00 Drug: Ciprofloxacin IVPB 400 mg Volume: 200 ml; Route: IVPB; Infused Over: 60 mins; jw7 Site: left antecubital; 08:03 Follow up: Response: No adverse reaction; IV Status: Completed infusion; IV Intake: kc6 200ml Medication: 04:20 VIS not applicable for this client. jw7 Intake: 04:41 IV: 300ml; Total: 300ml. jw7 07:00 IV: 100ml; Total: 400ml. jw7 08:03 IV: 200ml; Total: 600ml. kc6 Outcome: 05:38 Discharge ordered by . to 08:03 Discharged to home ambulatory, with significant other. kc6 08:03 Condition: improved 08:03 Discharge instructions given to patient, Instructed on discharge instructions, follow up and referral plans. medication usage, Demonstrated understanding of instructions, follow-up care, medications, Prescriptions given X 5 08:04 Patient left the ED. kc6 Signatures: Dispatcher [employer] EDMS Sam Ramirez MD MD cha Moreno, Annemarie villa2 Oralia Momin RN RN jw7 Campbell, Kaitlyn, RN RN kc6 Sis Berry RN RN pf1 Corrections: (The following items were deleted from the chart) 03:21 03:20 Inserted saline lock: 22 gauge in left antecubital area, using aseptic technique. jw7 Blood collected. jw7 03:21 03:20 Initial lab(s) drawn, by me, sent to lab. jw7 jw7 04:19 04:18 General: See Triage Assessment. jw7 jw7 07:11 07:10 Reassessment: Patient appears in no apparent distress at this time. Patient kc6 and/or family updated on plan of care and expected duration. Pain level reassessed. Patient is alert, oriented x 3, equal unlabored respirations, skin warm/dry/pink. kc6 07:26 07:10 Reassessment: Patient appears in no apparent distress at this time. Patient kc6 and/or family updated on plan of care and expected duration. Pain level reassessed. Patient is alert, oriented x 3, equal unlabored respirations, skin warm/dry/pink. d/c pending cipro completion kc6
--- NOTE | 2023-07-05 05:38 | EDPHYS ---
Physician Documentation [facility] Name: Gabrielle Plata Age: 42 yrs Sex: Female : 1980 Arrival Date: 07/05/2023 Time: 02:24 Bed 13 Private MD: Garret Carver ED Physician Sam Ramirez HPI: 07/05 02:34 This 42 yrs old Female presents to ER via Unassigned with complaints of to Nausea/Vomiting, Headache. 02:34 The patient presents to the emergency department with nausea, vomiting, diarrhea, to abdominal pain, of the right upper quadrant, left upper quadrant, right lower quadrant and left lower quadrant. Onset: The symptoms/episode began/occurred yesterday. Possible causes: unknown. The symptoms are aggravated by nothing. The symptoms are alleviated by nothing. Associated signs and symptoms: Pertinent positives: abdominal pain, diarrhea, nausea, vomiting. Severity of symptoms: At their worst the symptoms were moderate yesterday, in the emergency department the symptoms are unchanged. The patient has not experienced similar symptoms in the past. Historical: - Allergies: 02:45 cefepime; pf1 02:45 Codeine; pf1 02:45 Demerol; pf1 02:45 Sulfa (Sulfonamide Antibiotics); pf1 02:45 Tramadol HCl; pf1 - PMHx: 02:45 Crohn's Disease; Anxiety; pf1 - PSHx: 02:45 urethra surgery; tubal ligation; Cholecystectomy; breast augmentation; bladder surgery; pf1 abdominal surgery due to foreign object; - Immunization history:: Adult Immunizations up to date, Client reports having NOT received the Covid vaccine. Last tetanus immunization: < 5 years ago Flu vaccine is not up to date. - Social history:: Smoking status: Patient reports the use of cigarette tobacco products, smokes one-half pack cigarettes per day, Patient uses alcohol, occasionally. Patient/guardian denies using street drugs. - Family history:: not pertinent. ROS: 02:36 Constitutional: Negative for fever, chills, and weight loss, Eyes: Negative for injury, to pain, redness, and discharge, ENT: Negative for injury, pain, and discharge, Neck: Negative for injury, pain, and swelling, Cardiovascular: Negative for chest pain, palpitations, and edema, Respiratory: Negative for shortness of breath, cough, wheezing, and pleuritic chest pain, Back: Negative for injury and pain, : Negative for injury, bleeding, discharge, and swelling, MS/Extremity: Negative for injury and deformity, Skin: Negative for injury, rash, and discoloration, Neuro: Negative for headache, weakness, numbness, tingling, and seizure, Psych: Negative for depression, anxiety, suicide ideation, homicidal ideation, and hallucinations, Allergy/Immunology: Negative for hives, rash, and allergies, Endocrine: Negative for neck swelling, polydipsia, polyuria, polyphagia, and marked weight changes, Hematologic/Lymphatic: Negative for swollen nodes, abnormal bleeding, and unusual bruising. 02:36 Abdomen/GI: Positive for abdominal pain, nausea and vomiting, diarrhea, abdominal cramps. Exam: 02:36 Constitutional: This is a well developed, well nourished patient who is awake, alert, to and in no acute distress. Head/Face: Normocephalic, atraumatic. Eyes: Pupils equal round and reactive to light, extra-ocular motions intact. Lids and lashes normal. Conjunctiva and sclera are non-icteric and not injected. Cornea within normal limits. Periorbital areas with no swelling, redness, or edema. ENT: Nares patent. No nasal discharge, no septal abnormalities noted. Tympanic membranes are normal and external auditory canals are clear. Oropharynx with no redness, swelling, or masses, exudates, or evidence of obstruction, uvula midline. Mucous membranes moist. Neck: Trachea midline, no thyromegaly or masses palpated, and no cervical lymphadenopathy. Supple, full range of motion without nuchal rigidity, or vertebral point tenderness. No Meningismus. Chest/axilla: Normal chest wall appearance and motion. Nontender with no deformity. No lesions are appreciated. Cardiovascular: Regular rate and rhythm with a normal S1 and S2. No gallops, murmurs, or rubs. Normal PMI, no JVD. No pulse deficits. Respiratory: Lungs have equal breath sounds bilaterally, clear to auscultation and percussion. No rales, rhonchi or wheezes noted. No increased work of breathing, no retractions or nasal flaring. Back: No spinal tenderness. No costovertebral tenderness. Full range of motion. Skin: Warm, dry with normal turgor. Normal color with no rashes, no lesions, and no evidence of cellulitis. MS/ Extremity: Pulses equal, no cyanosis. Neurovascular intact. Full, normal range of motion. Neuro: Awake and alert, GCS 15, oriented to person, place, time, and situation. Cranial nerves II-XII grossly intact. Motor strength 5/5 in all extremities. Sensory grossly intact. Cerebellar exam normal. Normal gait. Psych: Awake, alert, with orientation to person, place and time. Behavior, mood, and affect are within normal limits. 02:36 Abdomen/GI: Inspection: distension, that is mild, that is moderate, Bowel sounds: active, all quadrants, Palpation: moderate abdominal tenderness, in all quadrants, Liver: no appreciated palpable abnormalities, Hernia: not appreciated. Vital Signs: 02:27 BP 147 / 94; Pulse 94; Resp 18; Temp 98.2; Pulse Ox 98% on R/A; Weight 56.25 kg; Height pf1 5 ft. 0 in. ; Pain 7/10; 02:30 BP 147 / 94; Pulse 100; Resp 20 S; Pulse Ox 98% on R/A; jw7 03:24 BP 148 / 101; Pulse 85; Resp 19 S; Pulse Ox 97% on R/A; jw7 04:30 BP 157 / 91; Pulse 86; Resp 19 S; Pulse Ox 98% on R/A; jw7 06:06 BP 159 / 98; Pulse 76; Resp 18 S; Pulse Ox 99% on R/A; jw7 07:26 BP 140 / 82; Pulse 75; Resp 19 S; Pulse Ox 98% on R/A; kc6 02:27 Body Mass Index 24.22 (56.25 kg, 152.4 cm) pf1 02:27 Pain Scale: Adult pf1 MDM: 02:32 Patient medically screened. to 02:37 Differential diagnosis: Nonspecific abd pain, gastritis, diverticulitis, viral to gastroenteritis, gastroenteritis. Data reviewed: vital signs, nurses notes, lab test result(s), radiologic studies, CT scan. Consideration of Admission/Observation Escalation of care including admission/observation considered. Independent interpretation of the following test(s) in the Emergency Department CT Scan: My interpretation is CT A/P . Test considered but Not performed: Ultrasound ABD USG. Counseling: I had a detailed discussion with the patient and/or guardian regarding: the historical points, exam findings, and any diagnostic results supporting the discharge/admit diagnosis, lab results, radiology results. 07/05 02:33 Order name: CBC with Diff; Complete Time: 04:41 [facility] 07/05 02:33 Order name: CMP; Complete Time: 04:41 [facility] 07/05 02:33 Order name: Lipase; Complete Time: 04:41 [facility] 07/05 02:33 Order name: Test, Urine; Complete Time: 05:34 [facility] 07/05 02:33 Order name: Urinalysis w/ reflexes; Complete Time: 05:34 [facility] 07/05 05:36 Order name: Urine Culture [facility] 07/05 02:33 Order name: CT Abd/Pelvis - IV Contrast Only [facility] 07/05 02:33 Order name: IV Saline Lock; Complete Time: 03:21 [facility] 07/05 02:33 Order name: Labs collected and sent; Complete Time: 03:21 [facility] 07/05 04:42 Order name: Misc. Order: get ua please; Complete Time: 05:12 [facility] Administered Medications: 03:21 Drug: NS 0.9% IV 1000 ml Route: IV; Rate: 1 bolus; Site: left antecubital; jw7 04:41 Follow up: Response: No adverse reaction; IV Status: Infusion continued; IV Intake: jw7 300ml 03:21 Drug: Famotidine IVP 20 mg Route: IVP; Site: left antecubital; jw7 04:41 Follow up: Response: No adverse reaction jw7 03:21 Drug: TORadol - Ketorolac IVP 15 mg Route: IVP; Site: left antecubital; jw7 04:42 Follow up: Response: No adverse reaction jw7 03:21 Drug: morphine IVP or IV 4 mg Route: IVP; Infused Over: 4 mins; Site: left antecubital; jw7 04:42 Follow up: Response: No adverse reaction jw7 03:21 Drug: Ondansetron IVP 8 mg Route: IVP; Site: left antecubital; jw7 04:41 Follow up: Response: No adverse reaction jw7 04:41 Drug: Promethazine IVP 12.5 mg Route: IVP; Site: left antecubital; jw7 05:31 Follow up: Response: No adverse reaction jw7 06:13 Drug: metroNIDAZOLE IVPB 500 mg Volume: 100 ml; Route: IVPB; Rate: 200 ml/hr; Infused jw7 Over: 30 mins; Site: left antecubital; 07:00 Follow up: Response: No adverse reaction; IV Status: Completed infusion; IV Intake: jw7 100ml 06:13 Drug: MethylPrednisoLONE IVP 125 mg Route: IVP; Site: left antecubital; jw7 07:00 Follow up: Response: No adverse reaction jw7 06:13 Drug: Promethazine IM 12.5 mg Route: IM; Site: right deltoid; jw7 07:00 Follow up: Response: No adverse reaction jw7 07:00 Drug: Ciprofloxacin IVPB 400 mg Volume: 200 ml; Route: IVPB; Infused Over: 60 mins; jw7 Site: left antecubital; 08:03 Follow up: Response: No adverse reaction; IV Status: Completed infusion; IV Intake: kc6 200ml Disposition Summary: 07/05/23 05:38 Discharge Ordered Location: Home to Problem: new to Symptoms: have improved to Condition: Stable to Diagnosis - Left sided colitis to - Vomiting to - Diarrhea, unspecified to - Crohn's disease, unspecified, without complications ot Followup: to - With: Garret Carver MD - When: 2 - 3 days - Reason: Recheck today's complaints, Continuance of care, Re-evaluation by your physician Followup: to - With: Courtney Coleman MD - When: 2 - 3 days - Reason: Recheck today's complaints, Re-evaluation by your physician Discharge Instructions: - Discharge Summary Sheet [facility] - Food Choices to Help Relieve Diarrhea, Adult to - Crohn's Disease to - Diarrhea, Adult to - Diarrhea, Adult, [id number] to - Vomiting, Adult to Forms: - Medication Reconciliation Form [facility] - Thank You Letter to - Antibiotic Education to - Prescription Opioid Use to - Patient Portal Instructions [facility] Prescriptions: - ondansetron 4 mg Oral Tablet,disintegrating - take 1 tablet by ORAL route every 6-8 hours; 24 tablet; Refills: 0, Product to Selection Permitted - Flagyl 500 mg Oral Tablet - take 1 tablet by ORAL route every 8 hours for 7 days; 21 tablet; Refills: 0, [facility] Product Selection Permitted - Cipro 500 mg Oral Tablet - take 1 tablet by ORAL route every 12 hours for 7 days; 14 tablet; Refills: 0, [facility] Product Selection Permitted - Medrol (Ramez) 4 mg Oral Tablets, Dose Pack - take 1 tablet by ORAL route as directed - follow package instructions; 1 to packet; Refills: 0, Product Selection Permitted - promethazine 25 mg Oral Tablet - take 1 tablet by ORAL route every 6 hours As needed; 20 tablet; Refills: 0, to Product Selection Permitted Signatures: Dispatcher [employer] Sam Bridges MD MD cha Slawson, Ashby, RN RN as6 Oralia Momin RN RN jw7 Sis Berry RN RN pf1 Stefanie Shi RN kc6
[2023-07-05] MEDS ORDERED: METHYLPREDNISOLONE 125 MG INJ ONE (05:57)
[2023-07-05] MEDS ORDERED: METRONIDAZOLE 500mg IVPB 500 MG/100 ML BAG IV ONE (05:58)
[2023-07-05] MEDS ORDERED: CIPROFLOXACIN 400mg IV 400 MG/200 ML BAG IV ONE (05:58)
[2023-07-05 08:18] VITALS: TEMP 98.2
[2023-07-05 08:33] VITALS: BP 140/82; O2SAT 98
--- NOTE | 2023-07-05 17:43 | RAD REPORT ---
EXAM DESCRIPTION: Abdomen Pelvis W Contrast CLINICAL HISTORY: ABD PAIN COMPARISON: 04/20/2023 TECHNIQUE: CT of the abdomen and pelvis performed following IV administration of iodinated contras t. This exam was performed according to our departmental dose-optimization program, which includes au tomated exposure control, adjustment of the mA and/or kV according to patient size and/or use of iter ative reconstruction technique. FINDINGS: Lung Bases: The visualized lung bases are clear. Bones: Minimal endplate spondylosis. Abdomen: Liver: Hepatomegaly with diffusely decreased density. Gallbladder: Prior cholecystectomy. Spleen, Pancreas, and Adrenal Glands: The spleen, pancreas, and adrenal glands are unremarkable. Kidneys: No hydronephrosis or obstructing calculus. Vasculature: The aorta and IVC have normal caliber and position. The portal vein is patent. The pro ximal visceral and renal arteries are patent. Stomach: The stomach and duodenum have normal course. Other: No free intraperitoneal air. No free fluid or lymphadenopathy. Pelvis: Bladder: Mild wall thickening of the urinary bladder. Bowel: No dilated loops of large or small bowel. Long segment mild wall thickening of the transvers e, descending, and sigmoid colon. Appendix: Normal appendix. Pelvis: Uterus is not enlarged. IMPRESSION: 1. Long segment mild wall thickening of the transverse, descending, and sigmoid colon. These findings could be seen with nonspecific colitis. 2. Hepatomegaly and hepatic steatosis. 3. Mild wall thickening of the urinary bladder. This could be seen with cystitis. Electronically signed by: Artur Arrieta 07/05/2023 5:07 AM CDT Due to temporary technical issues with the PACS/Fluency reporting system, reports are being signed by the in house radiologists without review as a courtesy to insure prompt reporting. The interpreting radiologist is fully responsible for the content of the report.
== END 2023-07-05 08:04 | disposition home or self-care (01) ==
LOC: ER 02:24
DX: K50.90 Crohn's disease, unspecified, without complications (principal); R19.7 Diarrhea, unspecified
CPT/HCPCS: 36415; 74177; 80053; 81001; 81025; 83690; 85025; 87086; 87088; 96361; 96365; 96367; 96372; 96375; 99284; J0744; J2405; J2550; J2930; J7030; Q9967

== ENCOUNTER 2023-07-25 18:08 | Emergency (ER) | payer SELFPAY ==
--- OUTSIDE RECORDS SUMMARY | 2023-07-25 18:18 | XMS REPORT | Continuity of Care Document ---
:1980 Author Organization [facility] t Address [address] [facility] [address] [place] [address] Care Team Providers Name Role Phone No, Pcp [facility] Primary Care Physician Unavailable YONAS FITZGERALD Attending Clinician Unavailable Lai BEASLEY, Yonas Arnold Attending Clinician Dyllan Weller MD Attending Clinician Marvin BEASLEY, Artur Rincon Attending Clinician Rakan Zarate MD Attending Clinician [phone] Grazyna Love MD Attending Clinician [phone] Dominique Jones Attending Clinician GRAZYNA LOVE Attending Clinician Unavailable Kiesha BEASLEY, Martita Jacques Attending Clinician Chance Pandya MD Attending Clinician Doctor Unassigned, Goulds Attending Clinician Unavailable Ramez BUCKNER, Ashely Attending Clinician Unavailable Fer BEASLEY, Antonio Attending Clinician [phone] Mojgan SHAH Attending Clinician Unavailable Mojgan Pires Attending Clinician JOSÉ LUIS GONZALES Attending Clinician Unavailable Yonas Perea MD Attending Clinician Mynor Hollis MD Attending Clinician MYNOR HOLLIS Attending Clinician Unavailable Min LEZAMA, Dalia Robibns Attending Clinician DALIA OROZCO Attending Clinician Unavailable [...] Primary or Family Admitting Clinician Unavaila ble PAUL, DOMINIQUE BHAKTA Admitting Clinician Unavailable RAKAN ZARATE Admitting Clinician Unavailable YONAS FITZGERALD Admitting Clinician Unavailable Yonas Fitzgerald MD Admitting Clinician Mojgan SHAH Admitting Clinician Unavailable KATE GRAZYNA KERWIN Admitting Clinician Unavailable Sanjay Lind MD Admitting Clinician SANJAY LIND Admitting Clinician Unavailable Payers Payer Name Policy Type Policy Number Effective Date Expiration Date Claire chaudhary [employer] [place] [id number] 2020 WOMEN 00:00:00 MATTHEW [id number] 2020 2020 00:00:00 00:00:00 AGENCY GENERIC VC [id number] 2020 2020 00:00:00 00:00:00 Problems Condition Condition [...] Displaced Disease Active Overview: Univers fracture fracture 24 [place] ity of of neck of of neck of 00:00: g of this [place] fifth fifth 00 note Medical metacarpal metacarpal might be Branch bone, bone, different right right from the hand, hand, original. initial initial Added encounter encounter automatic for closed for closed ally from fracture fracture request for surgery [id number] Foreign Foreign Disease Active 2020-[address] [facility] [...] of human human 00:00: g of this [place] papillomav papillomav 00 note Me dical irus [...] blood 8-25 ity of pressure pressure 00:00: [place] reading reading 00 Medical without without Branch diagnosis diagnosis of of hypertensi hypertensi on on Anxiety Anxiety Disease Active Univers 5-07 ity of 00:00: [place] [facility] Chest pain Chest pain Disease Active U nivers 4-21 ity of 00:00: [place] [facility] Screening Screening Disease Active Uni vers examinatio examinatio 2-05 it y of n for STD n for STD 00:00: Sylvie s (sexually (sexually 00 [facility] transmitte transmitte Br anch d disease) d disease) Premature Premature Disease Active 2016-12 Uni vers labor labor 0-24 ity of 00:00: [place] [facility] 34 weeks 34 weeks Disease Active 2016-12 Unive rs gestation gestation 0-14 ity of of of 00:00: [place] 00 [facility] Disease Active 2016-12 Univers labor labor 0-14 ity of 00:00: [place] [facility] Branch Crohn Crohn Disease Active Overview: Univer s disease disease 12-02 Formattin ity o f 00:00: g of this [place] 00 note Medical might be Branch different [...] Active MO 2020-0 [facility] ne HCl 3-18 [place] 00:00: Region 00 [facility] Sulfa DA Active MO 2020-0 [facility] (Sulfona 3-18 [place] mide 00:00: [facility] Antibiot 00 l ics) [facility] codeine DA Active MO 2020-0 [facility] 3-18 [place] 00:00: Region 00 [facility] meperidi DA Active MO vomiting 2020-0 [facility] ne HCl chest 3-18 [place] tightness 00:00: [facility] [address] [facility] Sulfa DA Active MO rash chest 2020-0 [facility] (Sulfona tightness 3-18 [place] 00:00: [facility] Antibiot 00 l ics[facility] codeine DA Active MO rash chest 2020-0 [facility] tightness 3-18 [place] 00:00: [facility] [address] [facility] Marijuan Propensi Active Anaphylaxis 2018-0 U [...] DA Active MO [facility] ne HCl 8-26 [place] 00:00[facility] Sulfa DA Active MO [facility] (Sulfona 8-26 [place] mide 00:00: Regiona Antibiot 00 l ics) [facility] Center codeine DA Active MO [facility] 8-26 [place] 00:00: [facility] meperidi DA Active MO vomiting [facility] ne HCl chest 8-26 [place] tightness 00:00: [facility] Sulfa DA Active MO rash chest [facility] (Sulfona tightness 8-26 [place] 00:00: [facility]a Antibiot 00 l ics) [facility] Center codeine DA Active MO rash chest [facility] tightness 8-26 [place] 00:00: [facility] Social History Social Habit Start Date Stop Date Quantity Comments Source History of tobacco Cigarette Smoker [facility] Branch History SDOH [email or web address] History SDOH 2023-04-21 2023-04-[address] [facility] Transport Med 00:00:00 00:00:[address] History SDOH 2023-04-212023-04-[address] [facility] Housing Unable to 00:00:00 00:00:00 Medical Center Pay History [facility] 2023-04-21 2023-04-[address] [facility] Housing Places 00:00:00 00:00:00 Medical Ce nter Lived History [facility] 2023-04-21 2023-04-[address] [facility] Housing Homeless 00:00:00 00:00:00 Medical Center Last Year Exposure to 2023-04-10 2023-04-[address] [facility] SARS-CoV-2 (event) 00:00:00 23:57:00 Medica l Center Alcohol intake 2023-04-08 2023-04-08 Current drinker Unive rsity of 00:00:00 00:00:[address] [facility] (finding) Branch Tobacco use and 2023-03-25 2023-03-25 Smokeless tobacco Un iversity of exposure 00:00:00 00:00:00 non-user [facility] Cigarettes smoked 2023-03-25 2023-03-25 Univers ity of current (pack per 00:00:00 00:00:00 [facility]) - Reported Branch Tobacco Comment 2023-03-25 2023-03-25 Occasional Smoker Un iversity of 00:00:00 00:00:00 [facility] Branch History [facility] 2020-07-26 2020-07-26 2 University o f Alcohol Frequency 00:00:00 00:00:00 [facility] Branch History [facility] 2020-07-26 2020-07-26 2 University o f Alcohol Std Drinks 00:00:00 00:00:00 [facility] Branch History [facility] 2020-07-26 2020-07-26 99 University o f Alcohol Binge 00:00:00 00:00:00 [facility] al Branch Alcohol Comment 2018-01-03 2018-01-03 Social Drinker Unive rsity of 00:00:00 00:00:00 [facility] Sex Assigned At [address] [facility] 00:00:00 00:00:00 Medical Center Smoking Status Start Date Stop Date Source Smokes tobacco daily 2023-03-25 00:00:00 Univers ity of [facility] Current some day smoker 2020-06-12 00:00:00 [facility] Medical Branch Medications Ordered Filled Start Stop Current Ordering Indication Dosage Frequency Signature Comments Components Source Medication Medication Date Date Medication? Clinician (SIG) Name Name ibuprofen 2022-0 Yes [id number] 600mg Take 1 Univers 600 mg 6-30 tablet by ity of tablet 00:00: mouth 3 [place] 00 (three) Medical times Branch daily with meals as needed for Pain (scale 4-6) or Pain (scale 1-3). ibuprofen 2022-0 Yes [id number] 600mg Take 1 Univers 600 mg 6-30 [...] (scale 7-10). Indication s: acute pain HYDROcodone 2022-0 Yes 4647 1{tbl} Take 1 Un gracy -acetaminop 6-14 tablet by ity of hen (NORCO) 00:00: mouth [place] 5-325 mg 00 every 6 Medical tablet (six) Branch hours as needed for Pain (scale 7-10). Indication s: acute pain HYDROcodone 2022-0 Yes 4647 1{tbl} Take 1 Un gracy -acetaminop 6-14 tablet by ity of hen (NORCO) 00:00: mouth [place] 5-325 mg 00 every 6 Medical tablet (six) Branch hours as needed for Pain (scale 7-10). Indication s: acute pain HYDROcodone 3-0 Yes 4647 1{tbl} Take 1 Un grayc -acetaminop 6-14 tablet by ity of hen [...] -acetaminop 5-30 tablet by ity of hen (Extenda-DentCO) 00:00: mouth [place] 5-325 mg 00 every 6 Medical tablet (six) Branch hours as needed for Pain (scale 7-10). Indication s: acute pain HYDROcodone 2023-0 Yes 4647 1{tbl} Take 1 Un gracy -acetaminop 5-30 tablet by ity of hen ([employer]) 00:00: mouth [place] 5-325 mg 00 every 6 Medical tablet (six) Branch hours as needed for Pain (scale 7-10). Indication s: acute pain HYDROcodone 2023-0 Yes 4647 1{tbl} Take 1 Un gracy -acetaminop 5-30 tablet by ity of hen ([employer]) 00:00: mouth [place] 5-325 mg 00 every 6 Medical tablet (six) Branch hours as needed for Pain (scale 7-10). Indication s: acute pain HYDROcodone 2023-0 Yes 4647 1{tbl} Take 1 Un gracy -acetaminop 5-30 tablet by ity of hen ([employer]) 00:00: mouth [place] 5-325 mg 00 every 6 Medical tablet (six) Branch hours as needed for Pain (scale 7-10). Indication s: acute pain HYDROcodone 2023-0 2023- No 4647 1{tbl} Take 1 U nivers -acetaminop 5-30 06-12 tablet by it y of hen ([employer]) 00:00: 00:[place] 5-325 mg [...] Amount: 1 mg. TiZANidine 2023-0 Yes 4mg Q.[id number] Take [address] (ZANAFLEX) 5-25 [id number] capsule (4 [facility]ukes 4 MG 15:44: 3D mg total) Medical capsule 02 by mouth Center in the morning and 1 capsule (4 mg total) at noon and 1 capsule (4 mg total) in the evening. gabapentin 2023-0 Yes 300mg Q.[id number] Take [address] (NEURONTIN) 5-25 [id number] capsule [facility]ukes 300 MG 15:44: 3D (300 [...] Amount: 1 mg. TiZANidine 2023-0 Yes 4mg Q.77724569 Take [address] (ZANAFLEX) 5-25 [id number] capsule (4 [facility]ukes 4 MG 15:44: 3D mg total) Medical capsule 02 by mouth Center in the morning and 1 capsule (4 mg total) at noon and 1 capsule (4 mg total) in the evening. gabapentin 2023-0 Yes 300mg Q.[id number] Take [address] (NEURONTIN) 5-25 [id number] capsule [facility]ukes 300 MG 15:44: 3D (300 [...] Amount: 1 mg. TiZANidine 2023-0 Yes 4mg Q.[id number] Take [address] (ZANAFLEX) 5-25 [id number] capsule (4 [facility] 4 MG 15:44: 3D mg total) Medical capsule 02 by mouth Center in the morning and 1 capsule (4 mg total) at noon and 1 capsule (4 mg total) in the evening. gabapentin 2023-0 Yes 300mg Q.73724808 Take [address] (NEURONTIN) 5-25 [id number] capsule [facility]ukes 300 MG 15:44: 3D (300 [...] Amount: 1 mg. TiZANidine 2023-0 Yes 4mg Q.14759505 Take [address] (ZANAFLEX) 5-25 [id number] capsule (4 [facility] 4 MG 15:44: 3D mg total) Medical capsule 02 by mouth Center in the morning and 1 capsule (4 mg total) at noon and 1 capsule (4 mg total) in the evening. gabapentin 2023-0 Yes 300mg Q.51913916 Take [address] (NEURONTIN) 5-25 [id number] capsule [facility]ukes 300 MG 15:44: 3D (300 [...] Amount: 1 mg. TiZANidine 2023-0 Yes 4mg Q.31311229 Take [address] (ZANAFLEX) 5-25 [id number] capsule (4 [facility] 4 MG 15:44: 3D mg total) Medical capsule 02 by mouth Center in the morning and 1 capsule (4 mg total) at noon and 1 capsule (4 mg total) in the evening. gabapentin 2023-0 Yes 300mg Q.[id number] Take [address] (NEURONTIN) 5-25 [id number] capsule [facility]ukes 300 MG 15:44: 3D (300 [...] Amount: 1 mg. TiZANidine 2023-0 Yes 4mg Q.[id number] Take [address] (ZANAFLEX) 5-25 [id number] capsule (4 [facility] 4 MG 15:44: 3D mg total) Medical capsule 02 by mouth Center in the morning and 1 capsule (4 mg total) at noon and 1 capsule (4 mg total) in the evening. gabapentin 2023-0 Yes 300mg Q.[id number] Take [address] (NEURONTIN) 5-25 [id number] capsule [facility]ukes 300 MG 15:44: 3D (300 [...] by Center mouth in the morning. ibuprofen 2023-0 2023- No 600mg Take 1 [...] (six) hours as needed for Nausea. ibuprofen 3-0 2023- No 600mg Take 1 [...] No 10mg Take [address] [facility] rine 04-25-24 tablet (10 [facility]ukes (FLEXERIL) 15:44: 00:00 mg [...] needed for Nausea. busPIRone 2023-0 Yes 5mg Q.34805314 Take [address] (BUSPAR) 5 5-24 [id number] tablet (5 [facility]ukes MG tablet 15:44: 3D mg total) Med ical 47 by mouth Center in the morning and 1 tablet (5 mg total) at noon and 1 tablet (5 mg total) in the evening. busPIRone 2023-0 Yes 5mg Q.[id number] Take [address] (BUSPAR) 5 5-24 [id number] tablet (5 [facility]ukes MG tablet 15:44: 3D mg total) Med ical 47 by mouth Center in the morning and 1 tablet (5 mg total) at noon and 1 tablet (5 mg total) in the evening. busPIRone 2023-0 Yes 5mg Q.[id number] Take [address] (BUSPAR) 5 5-24 [id number] tablet (5 [facility] MG tablet 15:44: 3D mg total) Med ical 47 by mouth Center in the morning and 1 tablet (5 mg total) at noon and 1 tablet (5 mg total) in the evening. busPIRone 2023-0 Yes 5mg Q.[id number] Take [address] (BUSPAR) 5 5-24 [id number] tablet (5 [facility] MG tablet 15:44: 3D mg total) Med ical 47 by mouth Center in the morning and 1 tablet (5 mg total) at noon and 1 tablet (5 mg total) in the evening. busPIRone 2023-0 Yes 5mg Q.[id number] Take [address] (BUSPAR) 5 5-24 [id number] tablet (5 [facility]ukes MG tablet 15:44: 3D mg total) Med ical 47 by mouth Center in the morning and 1 tablet (5 mg total) at noon and 1 tablet (5 mg total) in the evening. busPIRone 2023-0 Yes 5mg Q.[id number] Take [address] (BUSPAR) 5 5-24 [id number] tablet (5 [facility] MG tablet 15:44: 3D [...] Amount: 4 tablets amoxicillin 2023-0 Yes 500mg Q.[id number] Take [address] (AMOXIL) 5-24 [id number] tablet Martha es 500 MG 00:00: 3D [...] (six) hours as needed for Nausea. HYDROcodone 2022-0 Yes 1{tbl} Take [address] -acetaminop 5-24 tablet by Martha es hen (NORCO 00:00: mouth Medica l 5-325) 00 every 6 Center 5-325 mg (six) per tablet hours as needed for Pain. Max Daily Amount: 4 tablets amoxicillin 2023-0 Yes 500mg Q.[id number] Take [address] (AMOXIL) 5-24 [id number] tablet [place] es 500 MG 00:00: 3D [...] Amount: 4 tablets amoxicillin 2023-0 Yes 500mg Q.[id number] Take [address] (AMOXIL) 5-24 [id number] tablet [place] es 500 MG 00:00: 3D [...] Amount: 4 tablets amoxicillin 2023-0 Yes 500mg Q.[id number] Take [address] (AMOXIL) 5-24 [id number] tablet [place] es 500 MG 00:00: 3D [...] Amount: 4 tablets amoxicillin 2023-0 Yes 500mg Q.[id number] Take [address] (AMOXIL) 5-24 [id number] tablet [place] es 500 MG 00:00: 3D [...] Amount: 4 tablets amoxicillin 2023-0 Yes 500mg Q.[id number] Take [address] (AMOXIL) 5-24 [id number] tablet [place] es 500 MG 00:00: 3D [...] morning for 5 days. levoFLOXaci 2023-0 2023- No 500mg QD Take [address] n 5-24 05-29 tablet [facility]ukes (LEVAQUIN) 00:00: 23:59 (500 mg Med ical 500 MG 00 :00 total) by Center tablet mouth in the morning for 5 days. levoFLOXaci 2023-0 2023- No 500mg QD Take [address] n 5-24 05-29 tablet [facility]ukes (LEVAQUIN) 00:00: 23:59 (500 mg Med ical 500 MG 00 :00 total) by Center tablet mouth in the morning for 5 days. levoFLOXaci 2023-0 2023- No 500mg QD Take [address] n 04-24 tablet [facility]ukes (LEVAQUIN) 00:00: 23:59 (500 mg Med ical 500 MG 00 :00 total) by Center tablet mouth in the morning for 5 days. levoFLOXaci 2023-0 2023- No 500mg QD Take [address] n 04-24 tablet [facility] (LEVAQUIN) 00:00: 23:59 (500 mg Med ical 500 MG 00 :00 total) by Center tablet mouth in the morning for 5 days. levoFLOXaci 2023-0 2023- No 500mg QD Take [address] n 04-24 tablet [facility] (LEVAQUIN) 00:00: 23:59 (500 mg Med ical 500 MG 00 :00 total) by Center tablet mouth in the morning for 5 days. ibuprofen 2023-0 2023- No [id number] 600mg Take 1 Univers 600 mg 5-08 08-07 tablet by ity of tablet 00:00: 04:59 mouth 3 [place] 00 :00 (three) Medical times Branch daily with meals as needed for Pain (scale 4-6) or Pain (scale 1-3) for up to 90 days. ibuprofen 2023-0 2023- No [id number] 600mg Take 1 Univers 600 mg 5-08 08-07 tablet by ity of tablet 00:00: 04:59 mouth 3 [place] 00 :00 (three) Medical times Branch daily with meals as needed for Pain (scale 4-6) or Pain (scale 1-3) for up to 90 days. ibuprofen 2023-0 2023- No [id number] 600mg Take 1 Univers 600 mg 5-08 08-07 tablet by ity of tablet 00:00: 04:59 mouth 3 [place] 00 :00 (three) Medical times Branch daily with meals as needed for Pain (scale 4-6) or Pain (scale 1-3) for up to 90 days. ibuprofen 2023-0 2023- No [id number] 600mg Take 1 Univers 600 mg 5-08 08-07 tablet by ity of tablet 00:00: 04:59 mouth 3 [place] 00 :00 (three) Medical times Branch daily with meals as needed for Pain (scale 4-6) or Pain (scale 1-3) for up to 90 days. ibuprofen 2023-0 2023- No [id number] 600mg Take 1 Univers 600 mg 5-08 08-07 tablet by ity of tablet 00:00: 04:59 mouth 3 [place] 00 :00 (three) Medical times Branch daily with meals as needed for Pain (scale 4-6) or Pain (scale 1-3) for up to 90 days. ibuprofen 2023-0 2023- No [id number] 600mg Take 1 Univers 600 mg 5-08 08-07 tablet by ity of tablet 00:00: 04:59 mouth 3 [place] 00 :00 (three) Medical times Branch daily with meals as needed for Pain (scale 4-6) or Pain (scale 1-3) for up to 90 days. ibuprofen 2023-0 2023- No [id number] 600mg Take 1 Univers 600 mg 5-08 08-07 tablet by ity of tablet 00:00: 04:59 mouth 3 [place] 00 :00 (three) Medical times Branch daily with meals as needed for Pain (scale 4-6) or Pain (scale 1-3) for up to 90 days. ibuprofen 2023-0 2023- No [id number] 600mg Take 1 Univers 600 mg 5-08 08-07 tablet by ity of tablet 00:00: 04:59 mouth 3 [place] 00 :00 (three) Medical times Branch daily with meals as needed for Pain (scale 4-6) or Pain (scale 1-3) for up to 90 days. ibuprofen 2023-0 2023- No [id number] 600mg Take 1 Univers 600 mg 5-08 08-07 tablet by ity of tablet 00:00: 04:59 mouth 3 [place] 00 :00 (three) Medical times Branch daily with meals as needed for Pain (scale 4-6) or Pain (scale 1-3) for up to 90 days. ibuprofen 2023-0 2023- No [id number] 600mg Take 1 Univers 600 mg 5-08 08-07 tablet by ity of tablet 00:00: 04:59 mouth 3 [place] 00 :00 (three) Medical times Branch daily with meals as needed for Pain (scale 4-6) or Pain (scale 1-3) for up to 90 days. ibuprofen 2023-0 2023- No [id number] 600mg Take 1 Univers 600 mg 5-08 08-07 tablet by ity of tablet 00:00: 04:59 mouth 3 [place] 00 :00 (three) Medical times Branch daily with meals as needed for Pain (scale 4-6) or Pain (scale 1-3) for up to 90 days. ibuprofen 2023-0 2023- No [id number] 600mg Take 1 Univers 600 mg 5-08 08-07 tablet by ity of tablet 00:00: 04:59 mouth 3 [place] 00 :00 (three) Medical times Branch daily with meals as needed for Pain (scale 4-6) or Pain (scale 1-3) for up to 90 days. ibuprofen 2023-0 2023- No [id number] 600mg Take 1 Univers 600 mg 5-08 08-07 tablet by ity of tablet 00:00: 04:59 mouth 3 [place] 00 :00 (three) Medical times Branch daily with meals as needed for Pain (scale 4-6) or Pain (scale 1-3) for up to 90 days. ibuprofen 2023-0 2023- No [id number] 600mg Take 1 Univers 600 mg 5-08 06-27 tablet by ity of tablet 00:00: 00:00 mouth 3 [place] 00 :00 (three) Medical times Branch daily with meals as needed for Pain (scale 4-6) or Pain (scale 1-3) for up to 90 days. HYDROcodone 2023-0 3- No 4647 1{tbl} Take 1 U nivers -acetaminop 5-08 05-16 tablet by it y of hen (NORCO) 00:00: 04:59 mouth [place] 5-325 mg 00 :00 every 6 Medical tablet (six) Branch hours as needed for Pain (scale 7-10) for up to 7 days. Indication s: acute pain HYDROcodone 2023-0 3- No 4647 1{tbl} Take 1 U nivers -acetaminop 5-08 05-16 tablet by it y of hen ([employer]CO) 00:00: 04:59 mouth [place] 5-325 mg 00 :00 every 6 Medical tablet (six) Branch hours as needed for Pain (scale 7-10) for up to 7 days. Indication s: acute pain HYDROcodone 2023-0 2023- No 4647 1{tbl} Take 1 U nivers -acetaminop 5-08 05-16 tablet by it y of hen ([employer]) 00:00: 04:59 mouth [place] 5-325 mg 00 :00 every 6 Medical tablet (six) Branch hours as needed for Pain (scale 7-10) for up to 7 days. Indication s: acute pain HYDROcodone 2022-2022- No 4647 1{tbl} Take 1 U nivers -acetaminop 5-08 05-16 tablet by it y of hen ([employer]) 00:00: 04:59 mouth [place] 5-325 mg 00 :00 every 6 Medical tablet (six) Branch hours as needed for Pain (scale 7-10) for up to 7 days. Indication s: acute pain HYDROcodone 2022- No 4647 1{tbl} Take 1 U nivers -acetaminop 5-08 05-16 tablet by it y of hen ([employer]) 00:00: 04:59 mouth [place] 5-325 mg [...] Intra-op lactated 2022- No [facility]/hr, ity [...] Until Discontinu ed, Routine, DSU Pre-op scopolamine 1.5mg 1.5 mg, U nivers transdermal 03-2726 Topical, ity of (TRANSDERM- 14:23: 17:52 Administer [place] SCOP) patch 26 :58 over 72 Medic al 1.5 mg Hours, Branch Q72H, First dose on Sat03/27/23 at 0930, Until Discontinu ed, Routine, DSU Pre-op HYDROcodone 2022- No 4647 1{tbl} Take 1 U nivers -acetaminop -26 04-04 tablet by it y of hen 5-325 00:00: 04:59 mouth [place] mg tablet 00 :00 every 6 Medical (six) Branch hours as needed for Pain (scale 4-6) or Pain (scale 7-10) for up to 7 days. Indication s: acute pain HYDROcodone 2022- No 4647 1{tbl} Take 1 U nivers -acetaminop -26 04-04 tablet by it y of hen 5-325 00:00: 04:59 mouth [place] mg tablet 00 :00 every 6 Medical (six) Branch hours as needed for Pain (scale 4-6) or Pain (scale 7-10) for up to 7 days. Indication s: acute pain HYDROcodone 2022- No 4647 1{tbl} Take 1 U nivers -acetaminop - 05-02 tablet by it y of hen [...] 05-02 tablet by it y of hen ([employer]) 00:00: 04:59 mouth 2 [place] 5-325 mg 00 :00 (two) Medical tablet times Branch daily as needed for Pain (scale 7-10) for up to 7 days. Indication s: acute pain HYDROcodone 2022-0 2022- No 4647 1{tbl} Take 1 U nivers -acetaminop 4-24 05-02 tablet by it y of hen ([employer]) 00:00: 04:59 mouth 2 [place] 5-325 mg 00 :00 (two) Medical tablet times Branch daily as needed for Pain (scale 7-10) for up to 7 days. Indication s: acute pain HYDROcodone 2022-0 2022- No 4647 1{tbl} Take 1 U nivers -acetaminop 4-24 05-02 tablet by it y of hen ([employer]) 00:00: 04:59 mouth 2 [place] 5-325 mg 00 :00 (two) Medical tablet times Branch daily as needed for Pain (scale 7-10) for up to 7 days. Indication s: acute pain HYDROcodone 2022-0 2022- No 4647 1{tbl} Take 1 U nivers -acetaminop 4-24 05-02 tablet by it y of hen ([employer]) 00:00: 04:59 mouth 2 [place] 5-325 mg 00 :00 (two) Medical tablet times Branch daily as needed for Pain (scale 7-10) for up to 7 days. Indication s: acute pain HYDROcodone 2022-0 2022- No 4647 1{tbl} Take 1 U nivers -acetaminop 4-24 05-02 tablet by it y of hen ([employer]enda[employer]entCO) 00:00: 04:59 mouth 2 [place] 5-325 mg 00 :00 (two) Medical tablet times Branch daily as needed for Pain (scale 7-10) for up to 7 days. Indication s: acute pain HYDROcodone 2022-0 2022- No 4647 1{tbl} Take 1 U nivers -acetaminop 4-24 05-02 tablet by it y of hen ([employer]) 00:00: 04:59 mouth 2 [place] 5-325 mg 00 :00 (two) Medical tablet times Branch daily as needed for Pain (scale 7-10) for up to 7 days. Indication s: acute pain HYDROcodone 2022-2022- No 4647 1{tbl} Take 1 U nivers -acetaminop 4-24 05-02 tablet by it y of hen ([employer]) 00:00: 04:59 mouth 2 [place] 5-325 mg 00 :00 (two) Medical tablet times Branch daily as needed for Pain (scale 7-10) for up to 7 days. Indication s: acute pain HYDROcodone 2022-2022- No 4647 1{tbl} Take 1 U nivers -acetaminop 4-24 05-02 tablet by it y of hen ([employer]) 00:00: 04:59 mouth 2 [place] 5-325 mg 00 :00 (two) Medical tablet times Branch daily as needed for Pain (scale 7-10) for up to 7 days. Indication s: acute pain HYDROcodone 2022-2022- No 4647 1{tbl} Take 1 U nivers -acetaminop 4-24 05-02 tablet by it y of hen ([employer]) 00:00: 04:59 mouth 2 [place] 5-325 mg 00 :00 (two) Medical tablet times Branch daily as needed for Pain (scale 7-10) for up to 7 days. Indication s: acute pain HYDROcodone 2022-2022- No 4647 1{tbl} Take 1 U nivers -acetaminop 4-24 05-02 tablet by it y of hen ([employer]) 00:00: 04:59 mouth 2 [place] 5-325 mg 00 :00 (two) Medical tablet times Branch daily as needed for Pain (scale 7-10) for up to 7 days. Indication s: acute pain HYDROcodone 2022-0 2022- No 4647 1{tbl} Take 1 U nivers -acetaminop 4-24 05-02 tablet by it y of hen ([employer]) 00:00: 04:59 mouth [place] 5-325 [...] Medical EVERY Branch EIGHT HOURS NEEDED. ibuprofen 2023-0 2023- No TAKE ONE Uni vers 600 mg 4-18 04-26 (1) ity of tablet 00:00: 00:00 TABLET(S) [place] 00 :00 BY MOUTH Medical EVERY Branch EIGHT HOURS WITH FOOD NEEDED FOR PAIN. ibuprofen 2022-2022- No TAKE ONE Uni vers 600 mg 03-19 (1) ity of tablet 00:00: 00:00 TABLET(S) [place] 00 :00 BY MOUTH Medical EVERY Branch EIGHT HOURS WITH FOOD NEEDED FOR PAIN. ibuprofen 0 2022- No TAKE ONE Uni vers 600 [...] No 25mg 25 mg, Uni vers e 03-16 Intramuscu ity of (PHENERGAN) 15:15: 15:33 lar, ONCE, [place] injection 00 :00 1 dose, On Medi dorothy 25 mg Sat Branch 03/16/23 at 1015, MATTHEW tiZANidine 2022-0 Yes [id number] 4mg Take 1 Univers 4 mg tablet 4-15 tablet by ity of 00:00: mouth [place] [address] every 6 Medical (six) Branch hours as needed for Pain (scale 4-6) for up to 20 doses. diclofenac 2022-0 Yes [id number] 50mg Take 1 [facility] 50 mg 4-15 tablet by ity of tablet 00:00: mouth in [place] 00 the Medical morning Branch and 1 tablet in the evening. tiZANidine 2023-0 Yes [id number] 4mg Take 1 [facility] 4 mg tablet 4-15 tablet by ity of 00:00: mouth [place] [address] every 6 Medical (six) Branch hours as needed for Pain (scale 4-6) for up to 20 doses. diclofenac 2022-0 Yes [id number] 50mg Take 1 [facility] 50 mg 4-15 tablet by ity of tablet 00:00: mouth in [place] 00 the Medical morning Branch and 1 tablet in the evening. tiZANidine 2023-0 Yes [id number] 4mg Take 1 [facility] 4 mg tablet 4-15 tablet by ity of 00:00: mouth [place] 00 every 6 Medical (six) Branch hours as needed for Pain (scale 4-6) for up to 20 doses. diclofenac 2023-0 Yes [id number] 50mg Take 1 [facility] 50 mg 4-15 tablet by ity of tablet 00:00: mouth in [place] 00 the Medical morning Branch and 1 tablet in the evening. tiZANidine 2023-0 Yes [id number] 4mg Take 1 [facility] 4 mg tablet 4-15 tablet by ity of 00:00: mouth [place] 00 every 6 Medical (six) Branch hours as needed for Pain (scale 4-6) for up to 20 doses. diclofenac 2023-0 Yes [id number] 50mg Take 1 [facility] 50 mg 4-15 tablet by ity of tablet 00:00: mouth in [place] 00 the Medical morning Branch and 1 tablet in the evening. tiZANidine 2023-0 Yes [id number] 4mg Take 1 [facility] 4 mg tablet 4-15 tablet by ity of 00:00: mouth [place] 00 every 6 Medical (six) Branch hours as needed for Pain (scale 4-6) for up to 20 doses. diclofenac 2023-0 Yes [id number] 50mg Take 1 [facility] 50 mg 4-15 tablet by ity of tablet 00:00: mouth in [place] 00 the Medical morning Branch and 1 tablet in the evening. tiZANidine 2023-0 Yes [id number] 4mg Take 1 [facility] 4 mg tablet 4-15 tablet by ity of 00:00: mouth [place] 00 every 6 Medical (six) Branch hours as needed for Pain (scale 4-6) for up to 20 doses. diclofenac 2023-0 Yes [id number] 50mg Take 1 [facility] 50 mg 4-15 tablet by ity of tablet 00:00: mouth in [place] 00 the Medical morning Branch and 1 tablet in the evening. tiZANidine 2023-0 Yes [id number] 4mg Take 1 [facility] 4 mg tablet 4-15 tablet by ity of 00:00: mouth [place] 00 every 6 Medical (six) Branch hours as needed for Pain (scale 4-6) for up to 20 doses. diclofenac 2023-0 Yes [id number] 50mg Take 1 [facility] 50 mg 4-15 tablet by ity of tablet 00:00: mouth in [place] 00 the Medical morning Branch and 1 tablet in the evening. tiZANidine 2023-0 Yes [id number] 4mg Take 1 [facility] 4 mg tablet 4-15 tablet by ity of 00:00: mouth [place] 00 every 6 Medical (six) Branch hours as needed for Pain (scale 4-6) for up to 20 doses. diclofenac 2023-0 Yes [id number] 50mg Take 1 [facility] 50 mg 4-15 tablet by ity of tablet 00:00: mouth in [place] 00 the Medical morning Branch and 1 tablet in the evening. tiZANidine 2023-0 Yes [id number] 4mg Take 1 [facility] 4 mg tablet 4-15 tablet by ity of 00:00: mouth [place] 00 every 6 Medical (six) Branch hours as needed for Pain (scale 4-6) for up to 20 doses. diclofenac 2023-0 Yes [id number] 50mg Take 1 [facility] 50 mg 4-15 tablet by ity of tablet 00:00: mouth in [place] 00 the Medical morning Branch and 1 tablet in the evening. tiZANidine 2023-0 Yes [id number] 4mg Take 1 [facility] 4 mg tablet 4-15 tablet by ity of 00:00: mouth [place] 00 every 6 Medical (six) Branch hours as needed for Pain (scale 4-6) for up to 20 doses. diclofenac 2023-0 Yes [id number] 50mg Take 1 [facility] 50 mg 4-15 tablet by ity of tablet 00:00: mouth in [place] 00 the Medical morning Branch and 1 tablet in the evening. tiZANidine 2023-0 Yes [id number] 4mg Take 1 [facility] 4 mg tablet 4-15 tablet by ity of 00:00: mouth [place] 00 every 6 Medical (six) Branch hours as needed for Pain (scale 4-6) for up to 20 doses. tiZANidine 2023-0 Yes [id number] 4mg Take 1 [facility] 4 mg tablet 4-15 tablet by ity of 00:00: mouth [place] 00 every 6 Medical (six) Branch hours as needed for Pain (scale 4-6) for up to 20 doses. tiZANidine 2023-0 Yes [id number] 4mg Take 1 [facility] 4 mg tablet 4-15 tablet by ity of 00:00: mouth [place] 00 every 6 Medical (six) Branch hours as needed for Pain (scale 4-6) for up to 20 doses. tiZANidine 3-0 Yes [id number] 4mg Take 1 [facility] 4 mg tablet 4-15 tablet by ity of 00:00: mouth [place] 00 every 6 Medical (six) Branch hours as needed for Pain (scale 4-6) for up to 20 doses. tiZANidine 2022-0 Yes [id number] 4mg Take 1 [facility] 4 mg tablet 4-15 tablet by ity of 00:00: mouth [place] 00 every 6 Medical (six) Branch hours as needed for Pain (scale 4-6) for up to 20 doses. tiZANidine 2022-0 Yes [id number] 4mg Take 1 [facility] 4 mg tablet 4-15 tablet by ity of 00:00: mouth [place] 00 every 6 Medical (six) Branch hours as needed for Pain (scale 4-6) for up to 20 doses. tiZANidine 2022-0 Yes [id number] 4mg Take 1 [facility] 4 mg tablet 4-15 tablet by ity of 00:00: mouth [place] 00 every 6 Medical (six) Branch hours as needed for Pain (scale 4-6) for up to 20 doses. tiZANidine 2022-0 Yes [id number] 4mg Take 1 [facility] 4 mg tablet 4-15 tablet by ity of 00:00: mouth [place] 00 every 6 Medical (six) Branch hours as needed for Pain (scale 4-6) for up to 20 doses. tiZANidine 3-0 Yes [id number] 4mg Take 1 [facility] 4 mg tablet 4-15 tablet by ity of 00:00: mouth [place] 00 every 6 Medical (six) Branch hours as needed for Pain (scale 4-6) for up to 20 doses. tiZANidine 3-0 Yes [id number] 4mg Take 1 [facility] 4 mg tablet 4-15 tablet by ity of 00:00: mouth [place] 00 every 6 Medical (six) Branch hours as needed for Pain (scale 4-6) for up to 20 doses. tiZANidine 3-0 Yes [id number] 4mg Take 1 [facility] 4 mg tablet 4-15 tablet by ity of 00:00: mouth [place] 00 every 6 Medical (six) Branch hours as needed for Pain (scale 4-6) for up to 20 doses. tiZANidine 3-0 Yes [id number] 4mg Take 1 [facility] 4 mg tablet 4-15 tablet by ity of 00:00: mouth [place] 00 every 6 Medical (six) Branch hours as needed for Pain (scale 4-6) for up to 20 doses. tiZANidine 2022-0 Yes [id number] 4mg Take 1 [facility] 4 mg tablet 4-15 tablet by ity of 00:00: mouth [place] 00 every 6 Medical (six) Branch hours as needed for Pain (scale 4-6) for up to 20 doses. tiZANidine 2022-0 Yes [id number] 4mg Take 1 [facility] 4 mg tablet 4-15 tablet by ity of 00:00: mouth [place] 00 every 6 Medical (six) Branch hours as needed for Pain (scale 4-6) for up to 20 doses. tiZANidine 2022-0 Yes [id number] 4mg Take 1 [facility] 4 mg tablet 4-15 tablet by ity of 00:00: mouth [place] 00 every 6 Medical (six) Branch hours as needed for Pain (scale 4-6) for up to 20 doses. tiZANidine 2022-0 Yes [id number] 4mg Take 1 [facility] 4 mg tablet 4-15 tablet by ity of 00:00: mouth [place] 00 every 6 Medical (six) Branch hours as needed for Pain (scale 4-6) for up to 20 doses. tiZANidine 2022-0 Yes [id number] 4mg Take 1 [facility] 4 mg tablet 4-15 tablet by ity of 00:00: mouth [place] 00 every 6 Medical (six) Branch hours as needed for Pain (scale 4-6) for up to 20 doses. tiZANidine 3-0 Yes [id number] 4mg Take 1 [facility] 4 mg tablet 4-15 tablet by ity of 00:00: mouth [place] 00 every 6 Medical (six) Branch hours as needed for Pain (scale 4-6) for up to 20 doses. tiZANidine 3-0 Yes [id number] 4mg Take 1 [facility] 4 mg tablet 4-15 tablet by ity of 00:00: mouth [place] 00 every 6 Medical (six) Branch hours as needed for Pain (scale 4-6) for up to 20 doses. tiZANidine 3-0 Yes [id number] 4mg Take 1 [facility] 4 mg tablet 4-15 tablet by ity of 00:00: mouth [place] 00 every 6 Medical (six) Branch hours as needed for Pain (scale 4-6) for up to 20 doses. tiZANidine 2023-0 Yes [id number] 4mg Take 1 [facility] 4 mg tablet 4-15 tablet by ity of 00:00: mouth [place] 00 every 6 Medical (six) Branch hours as needed for Pain (scale 4-6) for up to 20 doses. diclofenac 3-0 2023- No [id number] 50mg Take 1 [facility] 50 mg 4-15 04-25 tablet by ity of tablet 00:00: 00:00 mouth in [place] 00 :00 the Medical morning Branch and 1 tablet in the evening. diclofenac 2022-0 3- No [id number] 50mg Take 1 [facility] 50 mg 4-15 04-25 tablet by ity of tablet 00:00: 00:00 mouth in [place] 00 :00 the Medical morning Branch and 1 tablet in the evening. diclofenac 2022-0 2022- No [id number] 50mg Take 1 [facility] 50 mg 4-15 04-25 tablet by ity of tablet 00:00: 00:00 mouth in [place] 00 :00 the Medical morning Branch and 1 tablet in the evening. gabapentin 3-0 Yes TAKE ONE Uni vers 300 mg 4-05 (1) ity of capsule 00:00: [place] BY [facility] Medical EVERY [place] EIGHT HOURS. gabapentin 3-0 Yes TAKE ONE [...] [place] BY [place] Medical EVERY [place] EIGHT HOURS. gabapentin 2023-0 Yes TAKE ONE Uni vers 300 mg 4-05 (1) ity of capsule 00:00: [place](S[place] BY MOUTH Medical EVERY [place] EIGHT HOURS. diclofenac 2023-0 Yes 75mg Take 1 Unive rs 75 mg EC 4-02 tablet by ity of tablet 00:00: mouth in [place] 00 the Medical morning Branch and 1 tablet in the evening. diclofenac 2023-0 2023- No 75mg Take 1 Univ ers 75 mg EC -01 05-26 tablet by ity o f tablet 00:00: 00:00 mouth in [place] 00 :00 the Medical morning Branch and 1 tablet in the evening. diclofenac 2023-0 2023- No 75mg Take 1 Univ ers 75 mg EC -01 05-26 tablet by ity o f tablet 00:00: 00:00 mouth in [place] 00 :00 the Medical morning Branch and 1 tablet in the evening. diclofenac 2023-0 2023- No 75mg Take 1 Univ ers 75 mg EC -01 05-26 tablet by ity o f tablet 00:00: 00:00 mouth in [place] 00 :00 the Medical morning Branch and 1 tablet in the evening. clonazePAM 2023-0 Yes .5mg Take 1 Unive rs 0.5 mg 3-29 tablet by ity of tablet 00:00: mouth in [place] 00 the Medical morning Branch and 1 tablet in the evening. clonazePAM 2023-0 Yes .5mg Take 1 Unive rs 0.5 mg 3-29 tablet by ity of tablet 00:00: mouth in [place] 00 the Medical morning Branch and 1 tablet in the evening. clonazePAM 2023-0 Yes .5mg Take 1 Unive rs 0.5 mg 3-29 tablet by ity of tablet 00:00: mouth in [place] 00 the Medical morning Branch and 1 tablet in the evening. clonazePAM 2023-0 Yes .5mg Take 1 Unive rs 0.5 mg 3-29 tablet by ity of tablet 00:00: mouth in [place] [address] the Medical morning Branch and 1 tablet in the evening. clonazePAM 2023-0 Yes .5mg Take 1 Unive rs 0.5 mg 3-29 tablet by ity of tablet 00:00: mouth in [place] [address] the Medical morning Branch and 1 tablet in the evening. clonazePAM 2023-0 Yes .5mg Take 1 Unive rs 0.5 mg 3-29 tablet by ity of tablet 00:00: mouth in [place] [address] the Medical morning Branch and 1 tablet in the evening. clonazePAM 2023-0 Yes .5mg Take 1 Unive rs 0.5 mg 3-29 tablet by ity of tablet 00:00: mouth in [place] [address] the Medical morning Branch and 1 tablet in the evening. clonazePAM 2023-0 Yes .5mg Take 1 Unive rs 0.5 mg 3-29 tablet by ity of tablet 00:00: mouth in [place] [address] the Medical morning Branch and 1 tablet in the evening. clonazePAM 2023-0 Yes .5mg Take 1 Unive rs 0.5 mg 3-29 tablet by ity of tablet 00:00: mouth in [place] [address] the Medical morning Branch and 1 tablet in the evening. clonazePAM 2023-0 Yes .5mg Take 1 Unive rs 0.5 mg 3-29 tablet by ity of tablet 00:00: mouth in [place] [address] the Medical morning Branch and 1 tablet in the evening. clonazePAM 2023-0 Yes .5mg Take 1 Unive rs 0.5 mg 3-29 tablet by ity of tablet 00:00: mouth in [place] [address] the Medical morning Branch and 1 tablet in the evening. clonazePAM 2023-0 Yes .5mg Take 1 Unive rs 0.5 mg 3-29 tablet by ity of tablet 00:00: mouth in [place] [address] the Medical morning Branch and 1 tablet in the evening. clonazePAM 2023-0 Yes .5mg Take 1 Unive rs 0.5 mg 3-29 tablet by ity of tablet 00:00: mouth in [place] [address] the Medical morning Branch and 1 tablet in the evening. clonazePAM 2023-0 Yes .5mg Take 1 Unive rs 0.5 mg 3-29 tablet by ity of tablet 00:00: mouth in [place] [address] the Medical morning Branch and 1 tablet in the evening. clonazePAM 2023-0 Yes .5mg Take 1 Unive rs 0.5 mg 3-29 tablet by ity of tablet 00:00: mouth in [place] 00 the Medical morning Branch and 1 tablet in the evening. clonazePAM 2023-0 Yes .5mg Take 1 Unive rs 0.5 mg 3-29 tablet by ity of tablet 00:00: mouth in [place] [address] the Medical morning Branch and 1 tablet in the evening. clonazePAM 2023-0 Yes .5mg Take 1 Unive rs 0.5 mg 3-29 tablet by ity of tablet 00:00: mouth in [place] [address] the Medical morning Branch and 1 tablet in the evening. clonazePAM 2023-0 Yes .5mg Take 1 Unive rs 0.5 mg 3-29 tablet by ity of tablet 00:00: mouth in [place] [address] the Medical morning Branch and 1 tablet in the evening. clonazePAM 2023-0 Yes .5mg Take 1 Unive rs 0.5 mg 3-29 tablet by ity of tablet 00:00: mouth in [place] [address] the Medical morning [place] and 1 tablet in the evening. clonazePAM 2023-0 Yes .5mg Take 1 Unive rs 0.5 mg 3-29 tablet by ity of tablet 00:00: mouth in [place] [address] the [facility] morning [place] and 1 tablet in the evening. proMETHazin 2023-0 Yes TAKE ONE Un gracy e 12.5 mg 3-16 (1) ity of tablet 00:00: TABLET(S) [place] 00 BY MOUTH Medical EVERY [place] EIGHT HOURS NEEDED. diphenoxyla 2023-0 Yes TAKE ONE Un gracy te-atropine 3-16 (1) ity of 2.5-0.025 00:00: TABLET(S) [place] mg tablet 00 BY MOUTH Medica l THREE Branch TIMES A DAY NEEDED. busPIRone 2023-0 Yes 10mg Take 1 Univer s 10 mg 3-16 tablet by ity of tablet 00:00: mouth in [place] [address] the [facility] morning [place] and 1 tablet in the evening. proMETHazin 2023-0 Yes TAKE ONE Un gracy e 12.5 mg 3-16 (1) ity of tablet 00:00: TABLET(S) [place] 00 BY MOUTH Medical EVERY [place] EIGHT HOURS NEEDED. diphenoxyla 2023-0 Yes TAKE ONE Un gracy te-atropine 3-16 (1) ity of 2.5-0.025 00:00: TABLET(S) [place] mg tablet 00 BY MOUTH Medica l THREE Branch TIMES A DAY NEEDED. busPIRone 2023-0 Yes 10mg Take 1 Univer s 10 mg 3-16 tablet by ity of tablet 00:00: mouth in [place] 00 the Medical morning Branch and 1 [...] by ity of tablet 00:00: mouth in [place] 00 the Medical morning Branch and 1 [...] by ity of tablet 00:00: mouth in [place] 00 the Medical morning Branch and 1 [...] by ity of tablet 00:00: mouth in [place] 00 the Medical morning Branch and 1 tablet in the evening. proMETHazin 2023-0 Yes TAKE ONE Un gracy e 12.5 mg 3-16 (1) ity of tablet 00:00: TABLET(S) [place] 00 BY MOUTH Medical EVERY [place] EIGHT HOURS NEEDED. diphenoxyla 2023-0 Yes TAKE ONE Un gracy te-atropine 3-16 (1) ity of 2.5-0.025 00:00: TABLET(S) [place] mg tablet 00 BY MOUTH Medica l THREE Branch TIMES A DAY NEEDED. busPIRone 2023-0 Yes 10mg Take 1 Univer s 10 mg 3-16 tablet by ity of tablet 00:00: mouth in [place] the Medical morning Branch and 1 tablet in the evening. proMETHazin 2023-0 Yes TAKE ONE Un gracy e 12.5 mg 3-16 (1) ity of tablet 00:00: TABLET(S) [place] BY MOUTH Medical EVERY [place] EIGHT HOURS NEEDED. diphenoxyla 2023-0 Yes TAKE ONE Un gracy te-atropine 3-16 (1) ity of 2.5-0.025 00:00: TABLET(S) [place] mg tablet 00 BY MOUTH Medica l THREE Branch TIMES A DAY NEEDED. busPIRone 2023-0 Yes 10mg Take 1 Univer s 10 mg 3-16 tablet by ity of tablet 00:00: mouth in [place] the Medical morning Branch and 1 tablet [...] by ity of tablet 00:00: mouth in [place] 00 the Medical morning Branch and 1 [...] by ity of tablet 00:00: mouth in [place] the Medical morning Branch and 1 tablet [...] by ity of tablet 00:00: mouth in [place] the Medical morning Branch and 1 tablet [...] by ity of tablet 00:00: mouth in [place] the Medical morning Branch and 1 tablet [...] by ity of tablet 00:00: mouth in [place] 00 the Medical morning Branch and 1 [...] by ity of tablet 00:00: mouth in [place] 00 the Medical morning Branch and 1 [...] by ity of tablet 00:00: mouth in [place] 00 the Medical morning Branch and 1 [...] by ity of tablet 00:00: mouth in [place] 00 the Medical morning Branch and 1 [...] by ity of tablet 00:00: mouth in [place] 00 the Medical morning Branch and 1 [...] by ity of tablet 00:00: mouth in [place] 00 the Medical morning Branch and 1 [...] by ity of tablet 00:00: mouth in [place] 00 the Medical morning Branch and 1 [...] by ity of tablet 00:00: mouth in [place] 00 the Medical morning Branch and 1 tablet in the evening. proMETHazin 3-0 Yes TAKE ONE Un gracy e 12.5 mg 3-16 (1) ity of tablet 00:00: TABLET(S) [place] 00 BY MOUTH Medical EVERY Branch EIGHT HOURS NEEDED. diphenoxyla 2022-0 Yes TAKE ONE Un gracy te-atropine 3-16 (1) ity of 2.5-0.025 00:00: TABLET(S) [place] mg tablet 00 BY MOUTH Medica l THREE Branch TIMES A DAY NEEDED. busPIRone 2022-0 Yes 10mg Take 1 Univer s 10 mg 3-16 tablet by ity of tablet 00:00: mouth in [place] 00 the Medical morning Branch and 1 [...] mouth Center daily. busPIRone 2020-12 Yes 5mg [id number] Take [address] [facility] ([facility]) 5 2-18 [id number] by mouth 3 [facility] tablet 15:41: 3D (three) Medic al 03 times Center daily. busPIRone 2020-12 Yes 5mg Q.[id number] Take [address] [facility] ([facility]) 5 2-18 [id number] by mouth 3 [facility] tablet 15:41: 3D (three) Medic al 03 times Center daily. busPIRone 2020-12 Yes 5mg Q.[id number] Take [address] [facility] ([facility]) 5 2-18 [id number] by mouth 3 [facility] tablet 15:41: 3D (three) Medic al 03 times Center daily. busPIRone 2020-12 Yes 5mg Q.[id number] Take [address] [facility] ([facility]) 5 2-18 [id number] by mouth 3 [facility] tablet 15:41: [...] St -acetaminop 2-18 05-24 tablet by Marcella fields hen (NORCO 00:00: 00:00 mouth Medic al 5-325) 00 :00 every 6 Center 5-325 mg (six) per tablet hours as needed for Pain. Max Daily Amount: 4 tablets HYDROcodone 2020-12- No 1{tbl} Take [address] -acetaminop 2-18 05-24 tablet by Marcella hernnádezs hen (NORCO 00:00: 00:00 mouth [place] al 5-325) 00 :00 every 6 Center 5-325 mg (six) per tablet hours as needed for Pain. Max Daily Amount: 4 tablets HYDROcodone 2020-12- No 1{tbl} Take [address] -acetaminop 2-18 05-24 tablet by Marcella fields hen (NORCO 00:00: 00:00 mouth Medic al [...] [place] mg 00 :00 dose, [facility], [facility]1983 12/25/20 at Branch 2245, MATTHEW ibuprofen No 600mg 600 mg, Uni vers (IBU) 12-26 Oral, ity of tablet 600 00:30: 12:29 ONCE, 1 [place] mg 00 :00 dose, [facility], [facility] 12/25/20 at Branch 1830, MATTHEW metroNIDAZO 2020- No [id number] 2000mg Take 4 Univers LE 500 mg 12-26 tablets by ity of tablet 00:00: 05:59 mouth 2 [place] 00 :00 (two) Medical times Branch daily for 1 dose. NaCl 0.9% 2020- No 1000mL at 999 Uni vers (NS) bolus 12-25 mL/hr, ity of infusion 17:30: 18:07 1,000 mL, [place] 1,000 mL 00 :00 IV Medical Infusion, Branch ONCE, 1 dose, [place] 12/25/20 at 1130, STAT proMETHazin 2020- No 12.5mg 12.5 mg, Univers e 12-25 IV ity of (PHENERGAN) 17:30: 16:45 Piggyback, [place] 12.5 mg in 00 :00 ONCE, 1 Medica l NaCl 0.9% dose, [facility] h (NS) 50 mL 12/25/20 at piggyback 1130, 50 mL cefTRIAXone 2020- No 250mg 250 mg, U nivers (ROCEPHIN) 12-25 Intramuscu it y of injection 16:30: 16:45 [place], ONCE [place] 250 mg 00 :00 NOW, 1 Medical dose, [facility] 12/25/20 at 1030, MATTHEW
Fa culty member approving Restricted medication : MYNOR HOLLIS
Reaso n for Anti-Infec tive: Documented Infection< br>Docu mented Infection Site: Abdominal< br>Duratio n of Therapy: 7 days azithromyci 2020- No 1000mg 1,000 mg, Univers n 12-25 Oral, ONCE ity of (ZITHROMAX) 16:30: 16:44 NOW, 1 [place] tablet 00 :00 dose, [place] Medical 1,000 mg 12/25/20 at [facility] h 1030, MATTHEW
Re ason for Anti-Infec tive: Documented Infection< br>Documen fatemeh Infection Site: COVID
D uration of Therapy: 7 days FENTanyl PF Yes 50ug 50 mcg, Uni vers (SUBLIMAZE 24 Slow IV ity of (PF)) 16:14: Push, [place] injection 05 Q30MIN Medical 50 mcg PRN, 3 Branch doses, Starting [place] 12/25/20 at 1014, Until Discontinu ed, MATTHEW, Pain (scale 7-10) iohexol 2019-0 2020- No 120mL 120 mL, Unive rs (OMNIPAQUE 8-14 08-14 Intravenou it y of 350 22:15: 22:15 s, ONCE, 1 [place] BULK-150 00 :00 dose, Fri Medica l mL) 07/15/20 at Branch injection 1715, 120 mL Routine dicyclomine 2020-0 [...] Fri Medica l NaCl 0.9% 07/15/20 at [facility] ch (NS) 100 mL 1445, 100 IV mL [place] sucralfate 2020-0 Yes [id number] 1g Take 1 Un gracy 1 gram 8-14 tablet by ity of tablet 00:00: mouth [place] 00 before Medical meals and Branch at bedtime. dicyclomine 2020-0 Yes [id number] 10mg Take 1 U nivers (BENTYL) 10 8-14 capsule by it y of mg capsule 00:00: mouth [place] 00 every 8 Medical (eight) Branch hours as needed for Abdominal pain. ondansetron 2020-0 Yes [id number] 4mg Take 1 U nivers 4 mg 8-14 tablet by ity of disintegrat 00:00: mouth [place] ing tablet 00 every 8 Medica l (eight) Branch hours as needed for Nausea and Vomiting (N/V). sucralfate 2020-0 Yes [id number] 1g Take 1 Un gracy 1 gram 8-14 tablet by ity of tablet 00:00: mouth [place] 00 before Medical meals and Branch at bedtime. dicyclomine 2020-0 Yes [id number] 10mg Take 1 U nivers (BENTYL) 10 8-14 capsule by it y of mg capsule 00:00: mouth [place] 00 every 8 Medical (eight) Branch hours as needed for Abdominal pain. ondansetron 2020-0 Yes [id number] 4mg Take 1 U nivers 4 mg 8-14 tablet by ity of disintegrat 00:00: mouth [place] ing tablet 00 every 8 Medica l (eight) Branch hours as needed for Nausea and Vomiting (N/V). sucralfate 2020-0 Yes [id number] 1g Take 1 Un gracy 1 gram 8-14 tablet by ity of tablet 00:00: mouth [place] 00 before Medical meals and Branch at bedtime. dicyclomine 2020-0 Yes [id number] 10mg Take 1 U nivers (BENTYL) 10 8-14 capsule by it y of mg capsule 00:00: mouth [place] 00 every 8 Medical (eight) Branch hours as needed for Abdominal pain. ondansetron 2020-0 Yes [id number] 4mg Take 1 U nivers 4 mg 8-14 tablet by ity of disintegrat 00:00: mouth [place] ing tablet 00 every 8 Medica l (eight) Branch hours as needed for Nausea and Vomiting (N/V). sucralfate 2020-0 Yes [id number] 1g Take 1 Un gracy 1 gram 8-14 tablet by ity of tablet 00:00: mouth [place] 00 before Medical meals and Branch at bedtime. dicyclomine 2020-0 Yes [id number] 10mg Take 1 U nivers (BENTYL) 10 8-14 capsule by it y of mg capsule 00:00: mouth [place] 00 every 8 Medical (eight) Branch hours as needed for Abdominal pain. ondansetron 2020-0 Yes [id number] 4mg Take 1 U nivers 4 mg 8-14 tablet by ity of disintegrat 00:00: mouth [place] ing tablet 00 every 8 Medica l (eight) Branch hours as needed for Nausea and Vomiting (N/V). sucralfate 2020-0 Yes [id number] 1g Take 1 Un gracy 1 gram 8-14 tablet by ity of tablet 00:00: mouth [place] 00 before Medical meals and Branch at bedtime. dicyclomine 2020-0 Yes [id number] 10mg Take 1 U nivers (BENTYL) 10 8-14 capsule by it y of mg capsule 00:00: mouth [place] 00 every 8 Medical (eight) Branch hours as needed for Abdominal pain. ondansetron 2020-0 Yes [id number] 4mg Take 1 U nivers 4 mg 8-14 tablet by ity of disintegrat 00:00: mouth [place] ing tablet 00 every 8 Medica l (eight) Branch hours as needed for Nausea and Vomiting (N/V). sucralfate 2020-0 Yes [id number] 1g Take 1 Un gracy 1 gram 8-14 tablet by ity of tablet 00:00: mouth [place] 00 before Medical meals and Branch at bedtime. dicyclomine 2020-0 Yes [id number] 10mg Take 1 U nivers (BENTYL) 10 8-14 capsule by it y of mg capsule 00:00: mouth [place] 00 every 8 Medical (eight) Branch hours as needed for Abdominal pain. ondansetron 2020-0 Yes [id number] 4mg Take 1 U nivers 4 mg 8-14 tablet by ity of disintegrat 00:00: mouth [place] ing tablet 00 every 8 Medica l (eight) Branch hours as needed for Nausea and Vomiting (N/V). sucralfate 2020-0 Yes [id number] 1g Take 1 Un gracy 1 gram 8-14 tablet by ity of tablet 00:00: mouth [place] 00 before Medical meals and Branch at bedtime. dicyclomine 2020-0 Yes [id number] 10mg Take 1 U nivers (BENTYL) 10 8-14 capsule by it y of mg capsule 00:00: mouth [place] 00 every 8 Medical (eight) Branch hours as needed for Abdominal pain. ondansetron 2020-0 Yes [id number] 4mg Take 1 [facility] nivers 4 mg 8-14 tablet by ity of disintegrat 00:00: mouth [place] ing tablet 00 every 8 Medica l (eight) Branch hours as needed for Nausea and Vomiting (N/V). sucralfate 2020-0 Yes [id number] 1g Take 1 Un gracy 1 gram 8-14 tablet by ity of tablet 00:00: mouth [place] 00 before Medical meals and Branch at bedtime. dicyclomine 2020-0 Yes [id number] 10mg Take 1 U nivers (BENTYL) 10 8-14 capsule by it y of mg capsule 00:00: mouth [place] 00 every 8 Medical (eight) Branch hours as needed for Abdominal pain. ondansetron 2020-0 Yes [id number] 4mg Take 1 U nivers 4 mg 8-14 tablet by ity of disintegrat 00:00: mouth [place] ing tablet 00 every 8 Medica l (eight) Branch hours as needed for Nausea and Vomiting (N/V). sucralfate 2020-0 Yes [id number] 1g Take 1 Un gracy 1 gram 8-14 tablet by ity of tablet 00:00: mouth [place] 00 before Medical meals and Branch at bedtime. dicyclomine 2020-0 Yes [id number] 10mg Take 1 U nivers (BENTYL) 10 8-14 capsule by it y of mg capsule 00:00: mouth [place] 00 every 8 Medical (eight) Branch hours as needed for Abdominal pain. ondansetron 2020-0 Yes [id number] 4mg Take 1 U nivers 4 mg 8-14 tablet by ity of disintegrat 00:00: mouth [place] ing tablet 00 every 8 Medica l (eight) Branch hours as needed for Nausea and Vomiting (N/V). sucralfate 2020-0 Yes [id number] 1g Take 1 Un gracy 1 gram 8-14 tablet by ity of tablet 00:00: mouth [place] 00 before Medical meals and Branch at bedtime. dicyclomine 2020-0 Yes [id number] 10mg Take 1 U nivers (BENTYL) 10 8-14 capsule by it y of mg capsule 00:00: mouth [place] 00 every 8 Medical (eight) Branch hours as needed for Abdominal pain. ondansetron 2020-0 Yes [id number] 4mg Take 1 U nivers 4 mg 8-14 tablet by ity of disintegrat 00:00: mouth [place] ing tablet 00 every 8 Medica l (eight) Branch hours as needed for Nausea and Vomiting (N/V). sucralfate 2020-0 Yes [id number] 1g Take 1 Un gracy 1 gram 8-14 tablet by ity of tablet 00:00: mouth [place] 00 before Medical meals and Branch at bedtime. dicyclomine 2020-0 Yes [id number] 10mg Take 1 U nivers (BENTYL) 10 8-14 capsule by it y of mg capsule 00:00: mouth [place] 00 every 8 Medical (eight) Branch hours as needed for Abdominal pain. ondansetron 2020-0 Yes [id number] 4mg Take 1 U nivers 4 mg 8-14 tablet by ity of disintegrat 00:00: mouth [place] ing tablet 00 every 8 Medica l (eight) Branch hours as needed for Nausea and Vomiting (N/V). sucralfate 2020-0 Yes [id number] 1g Take 1 Un gracy 1 gram 8-14 tablet by ity of tablet 00:00: mouth [place] 00 before Medical meals and Branch at bedtime. dicyclomine 2020-0 Yes [id number] 10mg Take 1 U nivers (BENTYL) 10 8-14 capsule by it y of mg capsule 00:00: mouth [place] 00 every 8 Medical (eight) Branch hours as needed for Abdominal pain. ondansetron 2020-0 Yes [id number] 4mg Take 1 U nivers 4 mg 8-14 tablet by ity of disintegrat 00:00: mouth [place] ing tablet 00 every 8 Medica l (eight) Branch hours as needed for Nausea and Vomiting (N/V). sucralfate 2020-0 Yes [id number] 1g Take 1 Un gracy 1 gram 8-14 tablet by ity of tablet 00:00: mouth [place] 00 before Medical meals and Branch at bedtime. dicyclomine 2020-0 Yes [id number] 10mg Take 1 U nivers (BENTYL) 10 8-14 capsule by it y of mg capsule 00:00: mouth [place] 00 every 8 Medical (eight) Branch hours as needed for Abdominal pain. ondansetron 2020-0 Yes [id number] 4mg Take 1 U nivers 4 mg 8-14 tablet by ity of disintegrat 00:00: mouth [place] ing tablet 00 every 8 Medica l (eight) Branch hours as needed for Nausea and Vomiting (N/V). sucralfate 2020-0 Yes [id number] 1g Take 1 Un gracy 1 gram 8-14 tablet by ity of tablet 00:00: mouth [place] 00 before Medical meals and Branch at bedtime. dicyclomine 2020-0 Yes [id number] 10mg Take 1 U nivers (BENTYL) 10 8-14 capsule by it y of mg capsule 00:00: mouth [place] 00 every 8 Medical (eight) Branch hours as needed for Abdominal pain. ondansetron 2020-0 Yes [id number] 4mg Take 1 U nivers 4 mg 8-14 tablet by ity of disintegrat 00:00: mouth [place] ing tablet 00 every 8 Medica l (eight) Branch hours as needed for Nausea and Vomiting (N/V). sucralfate 2020-0 Yes [id number] 1g Take 1 Un gracy 1 gram 8-14 tablet by ity of tablet 00:00: mouth [place] 00 before Medical meals and Branch at bedtime. dicyclomine 2020-0 Yes [id number] 10mg Take 1 U nivers (BENTYL) 10 8-14 capsule by it y of mg capsule 00:00: mouth [place] 00 every 8 Medical (eight) Branch hours as needed for Abdominal pain. ondansetron 2020-0 Yes [id number] 4mg Take 1 U nivers 4 mg 8-14 tablet by ity of disintegrat 00:00: mouth [place] ing tablet 00 every 8 Medica l (eight) Branch hours as needed for Nausea and Vomiting (N/V). sucralfate 2020-0 Yes [id number] 1g Take 1 Un gracy 1 gram 8-14 tablet by ity of tablet 00:00: mouth [place] 00 before Medical meals and Branch at bedtime. dicyclomine 2020-0 Yes [id number] 10mg Take 1 U nivers (BENTYL) 10 8-14 capsule by it y of mg capsule 00:00: mouth [place] 00 every 8 Medical (eight) Branch hours as needed for Abdominal pain. ondansetron 2020-0 Yes [id number] 4mg Take 1 U nivers 4 mg 8-14 tablet by ity of disintegrat 00:00: mouth [place] ing tablet 00 every 8 Medica l (eight) Branch hours as needed for Nausea and Vomiting (N/V). sucralfate 2020-0 Yes [id number] 1g Take 1 Un gracy 1 gram 8-14 tablet by ity of tablet 00:00: mouth [place] 00 before Medical meals and Branch at bedtime. dicyclomine 2020-0 Yes [id number] 10mg Take 1 U nivers (BENTYL) 10 8-14 capsule by it y of mg capsule 00:00: mouth [place] 00 every 8 Medical (eight) Branch hours as needed for Abdominal pain. ondansetron 2020-0 Yes [id number] 4mg Take 1 U nivers 4 mg 8-14 tablet by ity of disintegrat 00:00: mouth [place] ing tablet 00 every 8 Medica l (eight) Branch hours as needed for Nausea and Vomiting (N/V). sucralfate 2020-0 Yes [id number] 1g Take 1 Un gracy 1 gram 8-14 tablet by ity of tablet 00:00: mouth [place] 00 before Medical meals and Branch at bedtime. dicyclomine 2020-0 Yes [id number] 10mg Take 1 U nivers (BENTYL) 10 8-14 capsule by it y of mg capsule 00:00: mouth [place] 00 every 8 Medical (eight) Branch hours as needed for Abdominal pain. ondansetron 2020-0 Yes [id number] 4mg Take 1 U nivers 4 mg 8-14 tablet by ity of disintegrat 00:00: mouth [place] ing tablet 00 every 8 Medica l (eight) Branch hours as needed for Nausea and Vomiting (N/V). sucralfate 2020-0 Yes [id number] 1g Take 1 Un gracy 1 gram 8-14 tablet by ity of tablet 00:00: mouth [place] 00 before Medical meals and Branch at bedtime. dicyclomine 2020-0 Yes [id number] 10mg Take 1 U nivers (BENTYL) 10 8-14 capsule by it y of mg capsule 00:00: mouth [place] 00 every 8 Medical (eight) Branch hours as needed for Abdominal pain. ondansetron 2020-0 Yes [id number] 4mg Take 1 U nivers 4 mg 8-14 tablet by ity of disintegrat 00:00: mouth [place] ing tablet 00 every 8 Medica l (eight) Branch hours as needed for Nausea and Vomiting (N/V). sucralfate 2020-0 Yes [id number] 1g Take 1 Un gracy 1 gram 8-14 tablet by ity of tablet 00:00: mouth [place] 00 before Medical meals and Branch at bedtime. dicyclomine 2020-0 Yes [id number] 10mg Take 1 U nivers (BENTYL) 10 8-14 capsule by it y of mg capsule 00:00: mouth [place] 00 every 8 Medical (eight) Branch hours as needed for Abdominal pain. ondansetron 2020-0 Yes [id number] 4mg Take 1 U nivers 4 mg 8-14 tablet by ity of disintegrat 00:00: mouth [place] ing tablet 00 every 8 Medica l (eight) Branch hours as needed for Nausea and Vomiting (N/V). sucralfate 2020-0 Yes [id number] 1g Take 1 Un gr[facility] 1 gram 8-14 tablet by ity of tablet 00:00: mouth [place] 00 before Medical meals and Branch at bedtime. dicyclomine 2020-0 Yes [id number] 10mg Take 1 U nivers (BENTYL) 10 8-14 capsule by it y of mg capsule 00:00: mouth [place] 00 every 8 Medical (eight) Branch hours as needed for Abdominal pain. ondansetron 2020-0 Yes [id number] 4mg Take 1 [facility] nivers 4 mg 8-14 tablet by ity of disintegrat 00:00: mouth [place] ing tablet 00 every 8 Medica l (eight) Branch hours as needed for Nausea and Vomiting (N/V). sucralfate 2020-0 Yes [id number] 1g Take 1 Un [facility] 1 gram 8-14 tablet by ity of tablet 00:00: mouth [place] 00 before Medical meals and Branch at bedtime. dicyclomine 2020-0 Yes [id number] 10mg Take 1 U nivers (BENTYL) 10 8-14 capsule by it y of mg capsule 00:00: mouth [place] 00 every 8 Medical (eight) Branch hours as needed for Abdominal pain. ondansetron 2020-0 Yes [id number] 4mg Take 1 [facility] nivers 4 mg 8-14 tablet by ity of disintegrat 00:00: mouth [place] ing tablet 00 every 8 Medica l (eight) Branch hours as needed for Nausea and Vomiting (N/V). dicyclomine 2020-0 Yes [id number] 10mg Take 1 U nivers (BENTYL) 10 8-14 capsule by it y of mg capsule 00:00: mouth [place] 00 every 8 Medical (eight) Branch hours as needed for Abdominal pain. dicyclomine 2020-0 Yes [id number] 10mg Take 1 U nivers (BENTYL) 10 8-14 capsule by it y of mg capsule 00:00: mouth [place] 00 every 8 Medical (eight) Branch hours as needed for Abdominal pain. dicyclomine 2020-0 Yes [id number] 10mg Take 1 U nivers (BENTYL) 10 8-14 capsule by it y of mg capsule 00:00: mouth [place] 00 every 8 Medical (eight) Branch hours as needed for Abdominal pain. dicyclomine 2020-0 Yes [id number] 10mg Take 1 U nivers (BENTYL) 10 8-14 capsule by it y of mg capsule 00:00: mouth [place] 00 every 8 Medical (eight) Branch hours as needed for Abdominal pain. dicyclomine 2020-0 Yes [id number] 10mg Take 1 U nivers (BENTYL) 10 8-14 capsule by it y of mg capsule 00:00: mouth [place] 00 every 8 Medical (eight) Branch hours as needed for Abdominal pain. dicyclomine 2020-0 Yes [id number] 10mg Take 1 U nivers (BENTYL) 10 8-14 capsule by it y of mg capsule 00:00: mouth [place] 00 every 8 Medical (eight) Branch hours as needed for Abdominal pain. dicyclomine 2020-0 Yes [id number] 10mg Take 1 U nivers (BENTYL) 10 8-14 capsule by it y of mg capsule 00:00: mouth [place] 00 every 8 Medical (eight) Branch hours as needed for Abdominal pain. dicyclomine 2020-0 Yes [id number] 10mg Take 1 U nivers (BENTYL) 10 8-14 capsule by it y of mg capsule 00:00: mouth [place] 00 every 8 Medical (eight) Branch hours as needed for Abdominal pain. dicyclomine 2020-0 Yes [id number] 10mg Take 1 U nivers (BENTYL) 10 8-14 capsule by it y of mg capsule 00:00: mouth [place] 00 every 8 Medical (eight) Branch hours as needed for Abdominal pain. dicyclomine 2020-0 Yes [id number] 10mg Take 1 U nivers (BENTYL) 10 8-14 capsule by it y of mg capsule 00:00: mouth [place] 00 every 8 Medical (eight) Branch hours as needed for Abdominal pain. dicyclomine 2020-0 Yes [id number] 10mg Take 1 U nivers (BENTYL) 10 8-14 capsule by it y of mg capsule 00:00: mouth [place] 00 every 8 Medical (eight) Branch hours as needed for Abdominal pain. dicyclomine 2020-0 Yes [id number] 10mg Take 1 U nivers (BENTYL) 10 8-14 capsule by it y of mg capsule 00:00: mouth [place] 00 every 8 Medical (eight) Branch hours as needed for Abdominal pain. dicyclomine 2020-0 Yes [id number] 10mg Take 1 U nivers (BENTYL) 10 8-14 capsule by it y of mg capsule 00:00: mouth [place] 00 every 8 Medical (eight) Branch hours as needed for Abdominal pain. dicyclomine 2020-0 Yes [id number] 10mg Take 1 U nivers (BENTYL) 10 8-14 capsule by it y of mg capsule 00:00: mouth [place] 00 every 8 Medical (eight) Branch hours as needed for Abdominal pain. dicyclomine 2020-0 Yes [id number] 10mg Take 1 U nivers (BENTYL) 10 8-14 capsule by it y of mg capsule 00:00: mouth [place] 00 every 8 Medical (eight) Branch hours as needed for Abdominal pain. dicyclomine 2020-0 Yes [id number] 10mg Take 1 U nivers (BENTYL) 10 8-14 capsule by it y of mg capsule 00:00: mouth [place] 00 every 8 Medical (eight) Branch hours as needed for Abdominal pain. dicyclomine 2020-0 Yes [id number] 10mg Take 1 U nivers (BENTYL) 10 8-14 capsule by it y of mg capsule 00:00: mouth [place] 00 every 8 Medical (eight) Branch hours as needed for Abdominal pain. dicyclomine 2020-0 Yes [id number] 10mg Take 1 U nivers (BENTYL) 10 8-14 capsule by it y of mg capsule 00:00: mouth [place] 00 every 8 Medical (eight) Branch hours as needed for Abdominal pain. dicyclomine 2020-0 Yes [id number] 10mg Take 1 U nivers (BENTYL) 10 8-14 capsule by it y of mg capsule 00:00: mouth [place] 00 every 8 Medical (eight) Branch hours as needed for Abdominal pain. dicyclomine 2020-0 Yes [id number] 10mg Take 1 U nivers (BENTYL) 10 8-14 capsule by it y of mg capsule 00:00: mouth [place] 00 every 8 Medical (eight) Branch hours as needed for Abdominal pain. dicyclomine 2020-0 Yes [id number] 10mg Take 1 U nivers (BENTYL) 10 8-14 capsule by it y of mg capsule 00:00: mouth [place] 00 every 8 Medical (eight) Branch hours as needed for Abdominal pain. sucralfate 2022- No [id number] 1g Take 1 U nivers 1 gram 8-14 04-25 tablet by ity of tablet 00:00: 00:00 mouth [place] 00 :00 before Medical meals and Branch at bedtime. ondansetron 2022- No [id number] 4mg Take 1 [facility] 4 mg 8-14 04-25 tablet by ity of disintegrat 00:00: 00:00 [place] tablet 00 :00 every 8 Medica l (eight) Branch hours as needed for Nausea and Vomiting (N/V). sucralfate 2019-2022- No [id number] 1g Take 1 U nivers 1 gram 8-14 04-25 tablet by ity of tablet 00:00: 00:00 mouth [place] 00 :00 before Medical meals and Branch at bedtime. ondansetron 2019-2022- No [id number] 4mg Take 1 [facility] 4 mg 8-14 04-25 tablet by ity of disintegrat 00:00: 00:00 [place] tablet 00 :00 every 8 Medica l (eight) Branch hours as needed for Nausea and Vomiting (N/V). sucralfate 2019- No [id number] 1g Take 1 U nivers 1 gram 8-14 04-25 tablet by ity of tablet 00:00: 00:00 mouth [place] 00 :00 before Medical meals and Branch at bedtime. ondansetron 2019- No [id number] 4mg Take 1 [facility] 4 mg 8-14 04-25 tablet by ity of disintegrat 00:00: 00:00 [place] 00 :00 every 8 Medica l (eight) Branch hours as needed for Nausea and Vomiting (N/V). omeprazole 2019-2019- No [id number] 20mg Take 1 U nivers 20 mg 8-14 09-14 capsule by ity of capsule 00:00: 04:59 mouth [place] 00 :00 daily for Medical 30 days. [place] omeprazole 2019-2019- No [id number] 20mg Take 1 U nivers 20 mg 8-14 09-14 capsule by ity of capsule 00:00: 04:59 mouth [place] 00 :00 daily for Medical 30 days. [place] omeprazole 2019-2019- No [id number] 20mg Take 1 U nivers 20 mg 8-14 09-14 capsule by ity of capsule 00:00: 04:59 mouth [place] 00 :00 daily for Medical 30 days. [place] omeprazole 2019-2019- No [id number] 20mg Take 1 U nivers 20 mg 8-14 09-14 capsule by ity of capsule 00:00: 04:59 mouth [place] 00 :00 daily for Medical 30 days. Branch omeprazole 2019-2019- No [id number] 20mg Take 1 U nivers 20 mg 8-14 09-14 capsule by ity of capsule 00:00: 04:59 mouth [place] 00 :00 daily for Medical 30 days. [place] omeprazole 2019- No [id number] 20mg Take 1 U nivers 20 mg 8-14 09-14 capsule by ity of capsule 00:00: 04:59 mouth [place] 00 :00 daily for Medical 30 days. [place] omeprazole 2020-0 2020- No [id number] 20mg Take 1 U nivers 20 mg 07-15 capsule by ity of capsule 00:00: 04:59 mouth [place] 00 :00 daily for Medical 30 days. Branch omeprazole 2020-0 2020- No [id number] 20mg Take 1 U nivers 20 mg 07-15 capsule by ity of capsule 00:00: 04:59 mouth [place] 00 :00 daily for Medical 30 days. Branch enoxaparin 2019-0 Yes 40mg 40 mg, Unive rs (LOVENOX) 03-22 Subcutaneo ity of injection 14:00: [place], [place] 40 [place] 00 First dose Medical on [facility] 03/22/20 at 0900, Until Discontinu ed, Routine ondansetron 2020-0 Yes 4mg 4 mg, Slow Univers (ZOFRAN 03-22 IV Push, ity of (PF)) 09:23: Q6HPRN, [place] injection 4 [address] mg [facility] 03/22/20 at 0423, Until Discontinu ed, Routine, Nausea and Vomiting (N/V) ketorolac 2019-0 Yes 15mg 15 mg, Univer s (TORADOL) 03-22 Slow IV ity of injection 09:23: Push, [place] 15 mg 14 Q6HPRN, 4 Medical doses, Branch Starting [facility] 03/22/20 at 0423, Until Discontinu ed, Routine, chest pain
Fa culty member approving Restricted medication : SANJAY LIND acetaminoph 2019-0 Yes 650mg 650 mg, Un gracy en 03-22 Oral, ity of (TYLENOL) 09:22: Q6HPRN, [place] tablet 650 [address] [facility] 03/22/20 at 0422, Until Discontinu ed, Routine, Pain (scale 1-3) ondansetron 2020-0 2020- No 4mg 4 mg, Slow Univers (ZOFRAN 03-22 IV Push, ity of (PF)) 07:15: 07:14 ONCE, 1 [place] injection 4 00 :00 dose, Sat Med ical mg 03/22/20 at Branch 0215, MATTHEW ondansetron 2018-12 2020- No [id number] 4mg Take 1 [facility] (ZOFRAN 2-25 04-21 tablet by ity of ODT) 4 mg 00:00: 00:00 mouth [place] disintegrat 00 :00 every 8 Medic al ing tablet (eight) Branch hours as needed for Nausea and Vomiting (N/V). ketorolac 2018-12 2020- No [id number] 10mg Take 1 [facility] 10 mg 2-25 -21 tablet by ity of tablet 00:00: 00:00 mouth [place] 00 :00 every 6 Medical (six) Branch hours as needed for Pain (scale 1-3). No known No Univers medications ity [facility] No known No [facility] No known No [facility] No known No Univers medications [facility] Immunizations Ordered Filled Immunization Date Status Comments [facility] Immunization Name Name Influenza Virus 2017-09-26 Completed Universit y of Vaccine Quad IM 3+ 00:00:[address] [facility] Influenza Virus 2017-09-26 Completed Universit y of Vaccine Quad IM 3+ 00:00:[address] [facility] Influenza Virus 2017-09-26 Completed Universit y of Vaccine Quad IM 3+ 00:00:[address] [facility] Influenza Virus 2017-09-26 Completed Universit y of Vaccine Quad IM 3+ 00:00:[address] [facility] Influenza Virus 2017-09-26 Completed Universit y of Vaccine Quad IM 3+ 00:00:[address] [facility] Influenza Virus 2017-09-26 Completed Universit y of Vaccine Quad IM 3+ 00:00:[address] [facility] Influenza Virus 2017-09-26 Completed Universit y of Vaccine Quad IM 3+ 00:00:[address] [facility] Influenza Virus 2017-09-26 Completed Universit y of Vaccine Quad IM 3+ 00:00:[address] [facility] Influenza Virus 2017-09-26 Completed Universit y of Vaccine Quad IM 3+ 00:00:[address] [facility] Influenza Virus 2017-09-26 Completed Universit y of Vaccine Quad IM 3+ 00:00:[address] [facility] Influenza Virus 2017-09-26 Completed Universit y of Vaccine Quad IM 3+ 00:00:[address] [facility] Influenza Virus 2017-09-26 Completed Universit y of Vaccine Quad IM 3+ 00:00:[address] [facility] Influenza Virus 2017-09-26 Completed Universit y of Vaccine Quad IM 3+ 00:00:[address] [facility] Influenza Virus 2017-09-26 Completed Universit y of Vaccine Quad IM 3+ 00:00:[address] [facility] Influenza Virus 2017-09-26 Completed Universit y of Vaccine Quad IM 3+ 00:00:[address] [facility] Influenza Virus 2017-09-26 Completed Universit y of Vaccine Quad IM 3+ 00:00:[address] [facility] Influenza Virus 2017-09-26 Completed Universit y of Vaccine Quad IM 3+ 00:00:[address] [facility] Influenza Virus 2017-09-26 Completed Universit y of Vaccine Quad IM 3+ 00:00:[address] [facility] Influenza Virus 2017-09-26 Completed Universit y of Vaccine Quad IM 3+ 00:00:[address] [facility] Influenza Virus 2017-09-26 Completed Universit y of Vaccine Quad IM 3+ 00:00:[address] [facility] Influenza Virus 2017-09-26 Completed Universit y of Vaccine Quad IM 3+ 00:00:[address] [facility] Influenza Virus 2017-09-26 Completed Universit y of Vaccine Quad IM 3+ 00:00:[address] [facility] Influenza Virus 2017-09-26 Completed Universit y of Vaccine Quad IM 3+ 00:00:[address] [facility] Influenza Virus 2017-09-26 Completed Universit y of Vaccine Quad IM 3+ 00:00:[address] [facility] Influenza Virus 2017-09-26 Completed Universit y of Vaccine Quad IM 3+ 00:00:[address] [facility] Influenza Virus 2017-09-26 Completed Universit y of Vaccine Quad IM 3+ 00:00:[address] [facility] Influenza Virus 2017-09-26 Completed Universit y of Vaccine Quad IM 3+ 00:00:[address] [facility] Influenza Virus 2017-09-26 Completed Universit y of Vaccine Quad IM 3+ 00:00:[address] [facility] Influenza Virus 2017-09-26 Completed Universit y of Vaccine Quad IM 3+ 00:00:[address] [facility] Influenza Virus 2017-09-26 Completed Universit y of Vaccine Quad IM 3+ 00:00:[address] [facility] Influenza Virus 2017-09-26 Completed Universit y of Vaccine Quad IM 3+ 00:00:[address] [facility] Influenza Virus 2017-09-26 Completed Universit y of Vaccine Quad IM 3+ 00:00:[address] [facility] Influenza Virus 2017-09-26 Completed Universit y of Vaccine Quad IM 3+ 00:00:[address] [facility] Influenza Virus 2017-09-26 Completed Universit y of Vaccine Quad IM 3+ 00:00:[address] [facility] Influenza Virus 2017-09-26 Completed Universit y of Vaccine Quad IM 3+ 00:00:[address] [facility] Influenza Virus 2017-09-26 Completed Universit y of Vaccine Quad IM 3+ 00:00:[address] [facility] Influenza Virus 2017-09-26 Completed Universit y of Vaccine Quad IM 3+ 00:00:[address] [facility] Influenza Virus 2017-09-26 Completed Universit y of Vaccine Quad IM 3+ 00:00:[address] [facility] Influenza Virus 2017-09-26 Completed Universit y of Vaccine Quad IM 3+ 00:00:[address] [facility] Influenza Virus 2017-09-26 Completed Universit y of Vaccine Quad IM 3+ 00:00:[address] [facility] Influenza Virus 2017-09-26 Completed Universit y of Vaccine Quad IM 3+ 00:00:[address] [facility] Influenza Virus 2017-09-26 Completed Universit y of Vaccine Quad IM 3+ 00:00:[address] [facility] Influenza Virus 2017-09-26 Completed Universit y of Vaccine Quad IM 3+ 00:00:[address] [facility] Influenza Virus 2017-09-26 Completed Universit y of Vaccine Quad IM 3+ 00:00:[address] [facility] Influenza Virus 2017-09-26 Completed Universit y of Vaccine Quad IM 3+ 00:00:[address] [facility] Influenza Virus 2017-09-26 Completed Universit y of Vaccine Quad IM 3+ 00:00:[address] [facility] Influenza Virus 2017-09-26 Completed Universit y of Vaccine Quad IM 3+ 00:00:[address] [facility] Influenza Virus 2017-09-26 Completed Universit y of Vaccine Quad IM 3+ 00:00:[address] [facility] Influenza Virus 2017-09-26 Completed Universit y of Vaccine Quad IM 3+ 00:00:[address] [facility] Vital Signs Vital Name Observation Time Observation Value Comments Source Body temperature 2023-05-03 37.33 [facility] 21:04:00 [facility] Body height 2023-05-03 152.4 cm [facility] of 21:04:00 [facility] Body weight 2023-05-03 58.968 kg University of 21:04:00 [facility] BMI 2023-05-03 25.39 kg/m2 [facility] of 21:04:00 [facility] WEIGHT 2023-04-23 57.6 kg 03:00:00 WEIGHT 2023-04-23 57.6 kg 03:00:00 WEIGHT 2023-04-23 57.6 kg 03:00:00 Systolic blood 2023-04-08 143 mm[Hg] University of pressure 16:08:00 [facility] Diastolic blood 2023-04-08 91 mm[Hg] University o f pressure 16:08:00 [facility] Heart rate 2023-04-08 87 /min [facility] of 16:08:00 [facility] Body temperature 2023-04-08 35.89 [facility] of 16:08:00 [facility] Body height 2023-04-08 152.4 cm University of 16:08:00 [facility] Body weight 2023-04-08 60.51 kg University of 16:08:00 [facility] BMI 2023-04-08 26.05 kg/m2 University of 16:08:00 [facility] Heart rate 2023-03-27 86 /min University of 18:25:00 [facility] Respiratory rate 2023-03-27 15 /min University of 18:25:00 [facility] Oxygen saturation 2023-03-27 99 /min [facility] in Arterial blood 18:25:00 [facility] [place] [facility] [facility] Pulse oximetry [place] Systolic blood 2023-03-27 124 mm[Hg] University of pressure 18:15:00 [facility] Diastolic blood 2023-03-27 95 mm[Hg] University o f pressure 18:15:00 [facility] Body temperature 2023-03-27 36 Yarelis University of 17:52:00 [facility] Body height 2023-03-27 152.4 cm University of 14:46:00 [facility] Body weight 2023-03-27 59.421 kg University of 14:46:00 [facility] BMI 2023-03-27 25.58 kg/m2 University of 14:46:00 [facility] Systolic blood 2023-03-27 141 mm[Hg] [facility] of pressure 14:47:00 [facility] Diastolic blood 2023-03-27 87 mm[Hg] University o f pressure 14:47:00 [facility] Heart rate 2023-03-27 95 /min University of 14:47:00 [facility] Body temperature 2023-03-27 36.67 Yarelis University of 14:46:00 [facility] Respiratory rate 2023-03-27 14 /min University of 14:46:00 [facility] Body height 2023-03-27 152.4 cm University of 14:46:00 [facility] Body weight 2023-03-27 59.421 kg University of 14:46:00 [facility] BMI 2023-03-27 25.58 kg/m2 University of 14:46:00 [facility] Oxygen saturation 2023-03-27 98 /min University in Arterial blood 14:46:00 [facility] Pulse oximetry [place] Systolic blood 2023-03-25 131 mm[Hg] University of pressure 20:46:00 [facility] Diastolic blood 2023-03-25 87 mm[Hg] University o f pressure 20:46:00 [facility] Heart rate 2023-03-25 114 /min University of 20:46:00 [facility] Body temperature 2023-03-25 36.56 Yarelis University of 20:46:00 [facility] Body height 2023-03-25 152.4 cm University of 20:46:00 [facility] Body weight 2023-03-25 61.598 kg University of 20:46:00 [facility] BMI 2023-03-25 26.52 kg/m2 University of 20:46:00 [facility] Systolic blood 2023-03-16 134 mm[Hg] University of pressure 14:40:00 [facility] Diastolic blood 2023-03-16 90 mm[Hg] University o f pressure 14:40:00 [facility] Heart rate 2023-03-16 87 /min University of 14:40:00 [facility] Body temperature 2023-03-16 37.28 Yarelis University of 14:40:00 [facility] Respiratory rate 2023-03-16 16 /min University of 14:40:00 [facility] Body height 2023-03-16 152.4 cm University of 14:40:00 [facility] Body weight 2023-03-16 56.7 kg University of 14:40:00 [facility] BMI 2023-03-16 24.41 kg/m2 University of 14:40:00 [facility] Oxygen saturation 2023-03-16 99 /min University of in Arterial blood 14:40:00 [place] [facility] Pulse oximetry [facility] Systolic blood 2020-12-26 115 mm[Hg] University of pressure 09:00:00 [facility] Diastolic blood 2020-12-26 76 mm[Hg] University o f pressure 09:00:00 [facility] Heart rate 2020-12-26 78 /min University of 09:00:00 [facility] Body temperature 2020-12-26 36.22 Yarelis University of 09:00:00 [facility] Respiratory rate 2020-12-26 16 /min University of 09:00:00 [facility] Oxygen saturation 2020-12-26 100 /min University of in Arterial blood 09:00:00 [facility] by Pulse oximetry Branch Body weight 2020-12-26 53.978 kg University of 00:27:00 [facility] BMI 2020-12-26 24.04 kg/m2 University of 00:27:00 [facility] Systolic blood 2020-12-26 115 mm[Hg] University of pressure 09:00:00 [facility] Diastolic blood 2020-12-26 76 mm[Hg] University o f pressure 09:00:00 [facility] Heart rate 2020-12-26 78 /min University of 09:00:00 [facility] Body temperature 2020-12-26 36.22 Yarelis University of 09:00:00 [facility] Respiratory rate 2020-12-26 16 /min University of 09:00:00 [facility] Oxygen saturation 2020-12-26 100 /min University of in Arterial blood 09[facility]00:00 [facility] by Pulse oximetry Branch Body weight 2020-12-26 53.978 kg University of 00:27:00 [facility] BMI 2020-12-26 24.04 kg/m2 University of 00:27:00 [facility] Systolic blood 2020-12-25 92 mm[Hg] [facility] pressure 22:30:00 [facility] Diastolic blood 2020-12-25 59 mm[Hg] University o f pressure 22:30:00 [facility] Heart rate 2020-12-25 91 /min University of 22:30:00 [facility] Respiratory rate 2020-12-25 14 /min University of 22:30:00 [facility] Oxygen saturation 2020-12-25 100 /min University of in Arterial blood 22:30:00 [facility] by Pulse oximetry Branch Body temperature 2020-12-25 36.89 Yarelis University of 16:07:00 [facility] Body height 2020-12-25 149.9 cm University of 16:07:00 [facility] Body weight 2020-12-25 53.978 kg University of 16:07:00 [facility] BMI 2020-12-25 24.04 kg/m2 University of 16:07:00 [facility] Systolic blood 2020-12-25 92 mm[Hg] University of pressure 22:30:00 [facility] Diastolic blood 2020-12-25 59 mm[Hg] University o f pressure 22:30:00 [facility] Heart rate 2020-12-25 91 /min University of :30:00 [facility] Respiratory rate 2020-12-25 14 /min University of :30:00 [facility] Oxygen saturation 2020-12-25 100 /min [place] of in Arterial blood 22:30:00 [facility] by Pulse oximetry Branch Body temperature 2020-12-25 36.89 Yarelis University of 16:07:00 [facility] Body height 2020-12-25 149.9 cm University of 16:07:00 [facility] Body weight 2020-12-25 53.978 kg University of 16:07:00 [facility] BMI 2020-12-25 24.04 kg/m2 University of 16:07:00 [facility] Systolic blood 2020-07-26 146 mm[Hg] University of pressure 20:54:00 [facility] Diastolic blood 2020-07-26 96 mm[Hg] University o f pressure 20:54:00 [facility] Heart rate 2020-07-26 91 /min University of 19:55:00 [facility] Body temperature 2020-07-26 36.78 Yarelis University of 19:55:00 [facility] Respiratory rate 2020-07-26 16 /min University of 19:55:00 [facility] Body height 2020-07-26 172.7 cm University of 19:55:00 [facility] Body weight 2020-07-26 54.148 kg University of 19:55:00 [facility] BMI 2020-07-26 18.15 kg/m2 University of 19:55:00 [facility] Systolic blood 2020-07-15 119 mm[Hg] [facility] of pressure 23:00:00 [facility] Diastolic blood 2020-07-15 80 mm[Hg] University o f pressure 23:00:00 [facility] Heart rate 2020-07-15 79 /min University of 23:00:00 [facility] Respiratory rate 2020-07-15 20 /min University of 23:00:00 [facility] Oxygen saturation 2020-07-15 96 /min University of in Arterial blood 23:00:00 [facility] by Pulse oximetry Branch Body temperature 2020-07-15 37.11 Yarelis University of 18:21:00 [facility] Body weight 2020-07-15 52.164 kg University of 18:21:00 [facility] BMI 2020-07-15 17.49 kg/m2 University of 18:21:00 [facility] Body temperature 2020-06-12 36.89 Yarelis [place] of 02:50:00 [facility] Respiratory rate 2020-06-12 24 /min University of 02:50:00 [facility] Body weight 2020-06-12 50.803 kg University of 02:50:00 [facility] BMI 2020-06-12 17.03 kg/m2 University of 02:50:00 [facility] Oxygen saturation 2020-06-12 98 /min [place] of in Arterial blood 02:50:00 [facility] by Pulse oximetry Branch Systolic blood 2020-06-12 141 mm[Hg] University of pressure 02:50:00 [facility] Diastolic blood 2020-06-12 105 mm[Hg] University o f pressure 02:50:00 [facility] Heart rate 2020-06-12 108 /min University of 02:50:00 [facility] Systolic blood 2020-03-22 131 mm[Hg] University of pressure 16:32:00 [facility] Diastolic blood 2020-03-22 81 mm[Hg] University o f pressure 16:32:00 [facility] Heart rate 2020-03-22 70 /min University of 16:32:00 [facility] Body temperature 2020-03-22 37.06 Yarelis University of 16:32:00 [facility] Respiratory rate 2020-03-22 18 /min University of 16:32:00 [facility] Oxygen saturation 2020-03-22 97 /min University of in Arterial blood 16:32:00 [facility] by Pulse oximetry Branch Body height 2020-03-22 172.7 cm patient stated [facility] 09:15:00 height on [place] [facility]. [facility] Body weight 2020-03-22 54.942 kg bedscale upon University of 09:15:00 admission to [facility] Branch BMI 2020-03-22 18.42 kg/m2 University 09:15:00 [facility] Heart rate 2023-04-24 122 /min [facility] 11:37:03 [facility] Respiratory rate 2023-04-24 16 /min [facility] 11:37:03 [facility] Oxygen saturation 2023-04-24 95 /min [facility] es in Arterial blood 11:37:03 Medical nter by Pulse oximetry Body temperature 2023-04-[address] [facility] 11:36:51 [facility] Systolic blood 2023-04-24 135 mm[Hg] [facility] 11:36:30 [facility] Diastolic blood 2023-04-24 120 mm[Hg] [facility] 11:36:30 [facility] Body weight 2023-04-[address] [facility] 03:00:00 [facility] Procedures Procedure Date / Time Performing Clinician Source Performed XR HAND 3+ VW RIGHT 2023-05-03 19:47:42 Yonas Fitzgerald of [facility] CBC W/PLT COUNT & AUTO 2023-04-24 06:45:00 Dominique Jones HI [facility] DIFFERENTIAL [facility] CBC W/PLT COUNT & AUTO 2023-04-24 06:45:00 Dominique Jones HI [facility] DIFFERENTIAL [facility] CBC W/PLT COUNT & AUTO 2023-04-23 04:40:00 Dominique Jones HI [facility] DIFFERENTIAL [facility] BASIC METABOLIC PANEL 2023-04-23 04:40:00 Dominique Jones CH I [facility] CBC W/PLT COUNT & AUTO 2023-04-23 04:40:00 Dominique Jones HI [facility] DIFFERENTIAL [facility] CBC W/PLT COUNT & AUTO 2023-04-22 04:00:00 Dominique Jones [facility] BASIC METABOLIC PANEL 2023-04-22 04:00:00 Dominique Jones CH [facility] CBC W/PLT COUNT & AUTO 2023-04-22 04:00:00 Dominique Jones [facility] FL FLUORO NON-SPECIFIC UP 2023-04-21 11:50:00 Mumtaz [facility] 1 HOUR [place] TISSUE EXAM 2023-04-21 10:34:00 Mumtaz [facility] CYSTOSCOPY 2023-04-21 09:45:00 [facility] PROCEDURE W/ C-ARM 2023-04-21 09:45:[address] [facility]GC RNA 2023-04-21 06:25:00 Dominique Jones [facility] SCREEN, URINE 2023-04-21 06:25:[address] [facility] CBC W/PLT COUNT & AUTO 2023-04-21 06:22:00 Dominique Jones [facility] BASIC METABOLIC PANEL 2023-04-21 06:22:00 Dominique Jones [facility] HC LAB HIV-1 AG W/HIV-1&2 2023-04-21 06:22:00 Chalino Jones [facility] AB [facility] HEPATITIS C ANTIBODY 2023-04-21 06:22[facility]00 [facility] RPR 2023-04-21 06:22:00 [facility] HEPATITIS B PANEL 2023-04-21 06:22:00 [facility] MAGNESIUM 2023-04-21 06:22:00 [facility] PHOSPHORUS 2023-04-21 06:22:00 [facility]OT[facility] TIME/INR 2023-04-21 06:22:00 Dominique Jones [facility] TYPE AND SCREEN, 2023-04-21 06:22:00 Dominique Jones [facility] AUTOMATED [facility] CBC W/PLT COUNT & AUTO 2023-04-21 06:22:00 Dyllan Felipe [facility] S [facility] URINE CULTURE 2023-04-21 01:43:00 Dyllan Felipe [facility] URINALYSIS W/ REFLEX 2023-04-21 01:43:00 Dyllan Felipe [facility] URINE CULTURE Center MEDICATION CORRESPONDENCE 2023-03-29 05:01:00 Doctor Unassigned, No [facility] FL TIME OR 2023-03-27 17:22:00 Dyllan Weller [facility] (NON-REPORTABLE) Medical Branch [place] TIME OR 2023-03-27 17:22:00 Dyllan Weller [facility] (NON-REPORTABLE) [facility] METACARPAL ORIF 2023-03-27 15:52:00 Yonas Fitzgerald [facility] NERVE BLOCK 2023-03-27 14:54:47 Dyllan Pak [facility] ASSIGNMENT OF BENEFITS 2023-03-27 14:19:17 Doctor Unassigned, No [facility] XR SCAPULA LEFT 2023-03-25 21:23:00 Dyllan Weller [facility] XR SHOULDER 2+ VW LEFT 2023-03-25 21:23:00 Dyllan Weller [facility] XR HAND 3+ VW RIGHT 2023-03-25 21:23:00 Dyllan Weller [facility] ASSIGNMENT OF BENEFITS 2023-03-25 19:49:51 Doctor Unassigned, No [facility] XR HAND 3+ VW RIGHT 2023-03-16 15:18:48 Mojgan Shah [facility] NOTICE OF PRIVACY 2023-03-16 14:35:26 Doctor Unassigned, No [facility] CONSENT/REFUSAL FOR 2023-03-16 14:34:22 Doctor Unassigned, No Un [facility] DIAGNOSIS AND TREATMENT Name Medical Branch REFERRAL- 2023-03-04 05:01:00 Doctor Unassigned, No [facility] REQUEST/RESPONSE Name Medical Branch XR HAND 3+ VW LEFT 2020-12-26 09:21:04 Yonas Perea [facility] CT HEAD WO CONTRAST 2020-12-26 05:48:00 Yonas Perea [facility] ETHANOL 2020-12-25 21:54:00 Mynor Hollis [facility] ETHANOL 2020-12-25 20:21:00 Mynor Hollis [facility] POCT TEST 2020-12-25 18:07:00 Mynor Hollis [facility] ADC / LCC - DRUG SCREEN 2020-12-25 18:05:00 Mynor Hollis [facility] TRIAGE [facility] XR KUB 2020-12-25 17:06:45 Mynor Hollis [facility] COVID-19 (ID NOW RAPID 2020-12-25 16:55:00 Mynor Hollis [facility] TESTING) Medical Branch BASIC METABOLIC PANEL 2020-12-25 16:19:00 Mynor Hollis [facility] (NA, K, CL, CO2, GLUCOSE, Medica l Branch BUN, CREATININE, CA) ETHANOL 2020-12-25 16:19:00 Mynor Hollis [facility] CBC WITH DIFF 2020-12-25 16:19:00 Mynor Hollis [facility] ASSIGNMENT OF BENEFITS 2020-07-26 19:40:02 Doctor Unassigned, No [facility] Name [facility] CT ABDOMEN PELVIS W 2020-07-15 22:13:14 Dhruv Briggs [facility] CONTRAST [facility] POCT TEST 2020-07-15 18:47:00 Dhruv Briggs [facility] COMP. METABOLIC PANEL 2020-07-15 18:45:00 Dhruv Briggs [facility] ([id number]) Medical Branch CBC WITH DIFF 2020-07-15 18:45:00 Singer Dhruv [facility] URINALYSIS 2020-07-15 18:45:00 Dhruv Briggs o [facility] COVID-19 (ID NOW RAPID 2020-07-15 18:45:00 Dhruv Briggs [facility] TESTING) Medical Branch CONSENT/REFUSAL FOR 2020-07-15 18:15:15 Doctor Unassigned, No [facility] Name Medical Branch XR CHEST 1 VW 2020-06-12 21:33:46 [place] Andrew [facility] NOTICE OF PRIVACY 2020-06-12 20:57:27 Doctor Unassigned, No [facility] PRACTICES Name Medical Branch CONSENT/REFUSAL FOR 2020-06-12 20:53:21 Doctor Unassigned, No [facility] TREATMENT Name [facility] ECHO ROUTINE W/DOPPLER 2020-03-22 14:40:35 Alex Thomas [facility] COLOR [facility] XR CHEST 1 VW COVID 2020-03-22 07:40:01 Shun Benedict [facility] CORONAVIRUS COVID-19 2020-03-22 07:16:00 Shun Benedict [facility] TESTING Medical Branch LIPASE 2020-03-22 07:14:00 Shun Benedict [facility] TROPONIN I 2020-03-22 07:14:00 Shun Benedict [facility] COMP. METABOLIC PANEL 2020-03-22 07:14:00 Shun Benedict [facility] ([id number]) [facility] CBC WITH DIFFERENTIAL 2020-03-22 07:14:00 Shun Benedict [facility] EKG-12 LEAD 2020-03-22 07:07:34 Shun Benedict [facility] EKG-12 LEAD 2020-03-22 07:01:19 Shun Benedict [facility] Plan of Care Planned Activity Planned Date Details Comments Source Future Scheduled 2023-08-02 Influenza Vaccine (#1) [facility] 00:[facility]00 [code = Influenza Vaccine [facility] (#1)] Future Scheduled 2023-08-02 INFLUENZA VACCINE (Season [...] Center VACCINE (Season Ended)] Future Scheduled 2023-08-02 Influenza Vaccine (#1) C [...] [facility] Test 00:00:00 [code = INFLUENZA VACCINE Me dical Center (#1)] Future Scheduled 2021-12-[address] [facility] 00:00:00 (12+) [code = DEPRESSION Med ical Center SCREENING (12+)] Future Scheduled 1999 Screening for malignant [facility] Test 00:00:00 neoplasm of cervix Medical C enter (procedure) [code = 432561860] Future Scheduled 1999 Screening for malignant [facility] Test 00:00:00 neoplasm of cervix Medical C enter (procedure) [code = 051059283] Future Scheduled 1999 Screening for malignant [facility] Test 00:00:00 neoplasm of cervix Medical C enter (procedure) [code = 221735585] Future Scheduled 1999 Screening for malignant [facility] Test 00:00:00 neoplasm of cervix Medical C enter (procedure) [code = 059510071] Future Scheduled 1999 Screening for malignant [facility] Test 00:00:00 neoplasm of cervix Medical C enter (procedure) [code = 172626071] Future Scheduled 1999 Screening for malignant [facility] Test 00:00:00 neoplasm of cervix Medical C enter (procedure) [code = 139607650] Future Scheduled 1999 Screening for malignant [facility] Test 00:00:00 neoplasm of cervix Medical C enter (procedure) [code = 284379078] Future Scheduled 1999 Screening for malignant [facility] Test 00:00:00 neoplasm of cervix Medical C enter (procedure) [code = 505224495] Future Scheduled 1999 Screening for malignant [facility] Test 00:00:00 neoplasm of cervix Medical C enter (procedure) [code = 165195488] Future Scheduled 1999 Screening for malignant [facility] Test 00:00:00 neoplasm of cervix Medical C enter (procedure) [code = 557615981] Future Scheduled 1997 DTAP/TDAP/TD VACCINES (1 [facility] [...] screening Medical Cent er (procedure) [code = 379009236] Future Scheduled [address] [...] = COVID-19 VACCINE Med ical Center (#1)] Encounters Start End Encounter Admission Attending Care Care Encounter Source Date/Time Date/Time Type Type Clinicians Facility Department ID 2021-09-30 Emergency [facility] [id number] [facility]29 Emergency [facility] [id number] Univers 12:33[facility] 2021-09-29 Emergency [facility] [id number] Univers 06:13[facility] 2021-09-29 Emergency [facility] [id number] Univers 06:12:[address] [facility] 2020-05-12 Inpatient [facility] [id number] [facility] 00:35:00 93 [facility] 2020-02-17 Inpatient [facility] PRE[facility] [id number] [facility] 15:56:00 19 [facility] 2023-07-15 2023-07-15 [id number] Univers 14:30:00 14:30:[address] [facility] 2023-06-24 2023-06-24 Outpatient Itzel FITZGERALD [facility] [id number] Univers 16:10:00 16:10:[address] [facility] 2023-06-10 2023-06-10 [facility] [id number] Univers 11:30:00 11:30:00 [facility] 2023-06-02 2023-06-02 [facility] [id number] Univers 00:00:00 00:00:00 Yonas ADAMS [id number] ity of [facility] [id number] [id number] Sd dical VICTORY 198 [facility] 2023-05-28 2023-05-28 [facility] [id number] Univers 00:00:00 00:00:00 Yonas M SPECIALTY [id number] ity of C[id number] [id number] Sd dical VICTORY 198 [facility] 2023-05-28 2023-05-28 [facility] [id number] Univers 00:00:00 00:00:00 Dyllan SPECIALTY [id number] it[place] C[id number] [id number] Sd dical VICTORY 198 [facility] 2023-05-15 2023-05-15 [facility] [id number] Univers 00:00:00 00:00:00 Yonas M SPECIALTY [id number] it[place] C[id number] [phone] Sd dical VICTORY 198 [facility] 2023-05-13 2023-05-13 [facility] [id number] Univers 00:00:00 00:00:00 Yonsa M SPECIALTY [id number] it[place] C[id number] [phone] Sd dical VICTORY 198 [facility] 2023-05-09 2023-05-09 [facility] [id number] Univers 00:00:00 00:00:00 Yonas M SPECIALTY [id number] it[place] C[id number] [id number] Sd dical VICTORY 198 [facility] 2023-05-03 2023-05-03 [facility] [id number] Univers 14:33:59 23:59:00 Encounter Yonas M PRIMARY [id number] it[id number] [id number] Sd dical [address] [place] 2023-05-03 2023-05-[address] [facility] [id number] Univers 14:00:00 14:10:00 Visit Yonas Arnold PRIMARY [id number] ity of CARE [id number] Sylvie [facility] [id number] Sd dical [address] [place] 2023-05-03 2023-05-03 [facility] [id number] Univers 14:00:00 14:00:00 [facility] 2023-04-30 2023-04-[address] [facility] [id number] [facility] 00:00:00 00:00:00 Yonas Arnold SPECIALTY [id number] ity of CARE [id number] [place] CENTER AT [id number] Sd dical VICTORY 198 [facility] 2023-04-20 2023-04-[address] [facility] [id number] [facility] 23[facility]23[facility]00 15:44:00 [facility]-20 [facility]23-04-[address] [facility] [id number] [facility] 23:23[facility]00 15:44:00 [facility] 2023-04-20 2023-04-24 Inpatient ER [facility] [id number] 23:23:00 15:44:00 [facility] 2023-04-22 2023-04-22 [facility] [id number] Univers 10:20:00 10:20:[address] [facility] 2023-04-21 2023-04-[address] [facility] [id number] 09:22:00 12:02:00 [facility]-21 2023-04-[address] [facility] [id number] 09:22:00 12:02:00 Event Martita [facility] 2023-04-21 2023-04-[address] [facility] [id number] 09:00:00 11:26:00 [facility] 2023-04-21 2023-04-[address] [facility] [id number] 09:00:00 11:26:00 [facility] 2023-04-20 2023-04-20 Travel [facility] [id number] [facility] 00:00:00 [facility] 2023-04-20 2023-04-20 Travel [facility] [id number] [facility] 00:00:00 [facility] 2023-04-08 2023-04-08 [facility] 1.2.840.114 [id number] Univers 11:18:10 23:59:00 Encounter Yonas Arnold SPECIALTY 350.1.13.10 [phone] S[place] maryam GAMINO 809 [facility] 2023-04-08 2023-04-08 [facility] [id number] Univers 11:30:00 12:05:00 YONAS tucker of [facility] 2023-04-08 2023-04-08 [facility] 1.2.840.114 [id number] Univers 11:30:00 12:05:00 Visit Yonas Arnold SPECIALTY 350.1.13.10 [place] [phone] Sd maryam GAMINO 198 [facility] 2023-03-29 2023-03-29 Orders Doctor SYLVIA 1.2.840.114 [id number] Univers 00:00:00 00:00:00 Only Unassigned, DERIAN 350.1.13.10 it[place] of [place] [facility] 4.2.7.2.686 Jose as [id number] [address] 2023-03-27 2023-03-[address] [facility] SOR [id number] Univers 09:19:00 13:42:00 YONAS ity of [facility] 2023-03-27 2023-03-[address] [facility] 1.2.840.114 [id number] Univers 09:19:00 13:42:00 Encounter Yonas Arnold HEALTH 350.1.13.10 [place] [facility] [phone] [address] ([facility]) 2023-03-27 2023-03-27 Anesthesia Ramez Ashely [facility] 1.2.840 .114 [id number] Univers 11:08:00 12:53:00 Event Antonio Monroe SPECIALTY 3 50.1.13.10 [place] [phone] Sd dical VICTORY 020 [facility] 2023-03-27 2023-03-[address] [facility] 1.2.840.114 [id number] Univers 10:55:00 12:38:00 Yonas M SPECIALTY 350.1.13.10 [place] [phone] Sd dical VICTORY 020 [facility] 2023-03-27 2023-03-27 Orders Doctor SYLVIA 1.2.840.114 [id number] Univers 00:00:00 00:00:00 Only Unassigned, DERIAN 350.1.13.10 [place] [facility] 4.2.7.2.686 Jose as [id number] [address] 2023-03-25 2023-03-[address] [facility] 1.2.840.114 [id number] Univers 16:12:45 23:59:00 Encounter Yonas M SPECIALTY 350.1.13.10 [place] [phone] Sd dical VICTORY 809 [facility] 2023-03-25 2023-03-[address] [facility] 1.2.840.114 [id number] Univers 16:12:33 23:59:00 Encounter Yonas M SPECIALTY 350.1.13.10 [place] [phone] Sd maryam GAMINO 809 [facility] 2023-03-25 2023-03-[address] [facility] [id number] Univers 15:10:00 17:04:[address] [facility] [facility] 2023-03-25 2023-03-[address] [facility] 1.2.840.114 [id number] Univers 15:10:00 17:04:47 Visit Yonas M SPECIALTY 350.1.13.10 [place] [phone] Sd maryam GAMINO 198 [facility] 2023-03-25 2023-03-[address] [facility] 1.2.840.114 [id number] Univers 16:10:00 16:11:00 Encounter Yonas M SPECIALTY 350.1.13.10 [place] [id number] Sd maryam GAMINO 809 [facility] 2023-03-25 2023-03-25 Orders Doctor SYLVIA 1.2.840.114 [id number] Univers 00:00:00 00:00:00 Only Unassigned, DERIAN 350.1.13.10 [place] [facility]OS[facility] 4.2.7.2.686 Jose as [phone] [facility] [address] [place] 2023-03-16 2023-03-16 Emergency X Mojgan SHAH [facility] ERT [id number] Univers 09:41:00 12:36:00 ity of [facility] 2023-03-16 2023-03-16 Emergency Mojgan Shah [facility] 1.2.840.114 [id number] Univers 09:41:00 12:36:00 Loyda VELAZCO 350.1.13.10 i ty adalberto ARANDA [place].2.[place] [id number] [facility] [address] [place] 2023-03-04 2023-03-04 Orders Doctor SYLVIA 1.2.840.114 [id number] Univers 00:00:00 00:00:00 Only Unassigned, DERIAN 350.1.13.10 [place] [facility] 4.2.7.2.686 Jose as [id number] [address] 2021-11-16 2021-11-18 Inpatient ER WILLIAM LOVE Urology [id number] [facility] 02:50:00 15:40:00 GRAZYNA 2020-12-25 2020-12-26 Emergency Brit, TRAU[place] 1.2.672.288 [id number] 18:26:00 04:04:00 [facility] 350.1.13.10 4.2.7.2.686 [id number] 014 2020-12-25 2020-12-26 Emergency Brit, TRAU[place] 1.2.386.916 [id number] Univers 18:26:00 04:04:00 [facility] 350.1.13.10 [place] [id number] [address] 2020-12-25 2020-12-25 [place] 1.2.987.331 [id number] 10:03:00 18:22:00 [facility] 350.1.13.10 [place] 4.2.7.2.[address] [place] [phone] [address] ([facility]) 2020-12-25 2020-12-25 Emergency [place], [facility] 1.2.218.750 [id number] Univers 10:03:00 18:22:00 [facility] 350.1.13.10 it [place]2.[place] [facility] [id number] [address] ([facility]) 2020-12-25 2020-12-25 Emergency X [place], [facility] ERT [id number] Univers 10:03:00 18:22:00 MYNOR ity of [facility] 2020-08-17 2020-08-17 [facility] 1.2.840.114 [id number] 06:29:56 23:59:00 Encounter Dalia Robbins SPECIALTY 350.1.13.10 CARE 4.2.7.2.686 CENTER AT [id number] [place] [address] [place] [address] 2020-08-17 2020-08-17 Hospital [facility] 1.2.840.114 [id number] Univers 06:29:56 23:59:00 Encounter Dknda R SPECIALTY 350.1.13.10 [place] AT [id number] Sd dic[address] 2020-08-17 2020-08-17 [facility] [id number] Univers 00:00:00 00:00:00 ROSWERNERNDA ity o [facility] 2020-08-17 2020-08-17 [facility] [id number] Univers 00:00:00 00:00:00 DKNDA garrett o [facility] 2020-08-10 2020-08-10 Telephone [facility] 1.2.147.585 [id number] 00:00:00 00:00:00 Roswernernda R SEASONAL RECRUITER 350.1.13.10 REGIONAL 4.2.7.2.686 MATERNAL [phone] & CHILD [address] [place] [address] 2020-08-10 2020-08-10 Telephone [facility] 1.2.718.406 [id number] Univers 00:00:00 00:00:00 Roswernernda R SEASONAL RECRUITER 350.1.13.10 ity of REGIONAL 4.2.7.2.686 Jose as MATERNAL [id number] Med ical & CHILD [address] [place] [address] 2020-07-26 2020-07-26 Office [facility] 1.2.840.114 [id number] Univers 14:44:48 15:48:25 Visit Krystynawernernda R SEASONAL RECRUITER 350.1.13.10 ity of REGIONAL 4.2.7.2.686 Jose as MATERNAL [id number] [facility] & CHILD [address] [place] [address] 2020-07-26 2020-07-26 Outpatient R [facility] [id number] Univers 14:00:00 14:00:00 ROSWERNERNDA dariay o f [facility] 2020-07-26 2020-07-26 Sharif WARD 1.2.840.114 [id number] Univers 00:00:00 00:00:00 Only Unassigned, EDRIAN 350.1.13.10 [place] HOSP[facility] 4.2.7.2.686 Jose as [id number] [facility] [address] [place] 2020-07-15 2020-07-15 Emergency [facility] 1.2.036.905 [id number] Univers 13:25:00 19:02:00 Dhruv Vleazco 350.1.13.10 i ty of [place] 4.2.7.2.686 [facility] [id number] [address] 2020-06-14 2020-06-14 Telephone SYLVIA Shi 1.2.840.114 [id number] Univers 00:00:00 00:00:00 Kaylah Lau DERIAN 350.1.13.10 i ty of [facility] 4.2.7.2.686 Jose as [id number] [facility] [address] [place] 2020-06-12 2020-06-[address] [facility] 1.2.840.114 [id number] Univers 15:56:18 17:25:00 Andrew Velazco 350.1.13.10 i ty of [place] 4.2.7.2.686 [facility] [phone] [address] 2020-06-11 2020-06-11 Emergency [facility] 1.2.645.230 [id number] Univers 21:45:46 22:38:00 Dhruv Velazco 350.1.13.10 i ty of [place] 4.2.7.2.686 [facility] [id number] [address] 2020-04-07 2020-04-07 Outpatient R NICOLE [facility] [id number] Univers 13:30:00 13:30:00 WONDIFUL garrett o f [facility] 2020-04-07 2020-04-07 [facility] 1.2.840.114 [id number] Univers 07:52:01 08:22:01 ne Visit Elo Velazco 350.1.13.10 ity of [place] 4.2.7.2.686 [facility] Professio [phone] Sd dical nal 044 [facility] 2020-04-04 2020-04-04 Emergency E TON MHBL MHBL 7504 MHBL 16:52:00 19:36:00 DAVID 2020-03-29 2020-03-29 Outpatient R AL [facility] [id number] Univers 09:40:00 09:40:00 CHRIS itsamina o f [facility] 2020-03-29 2020-03-29 [facility] 1.2.840.114 [id number] Univers 07:59:20 08:14:20 ne Visit Chris [place] 350.1.13.10 ity of [place] 4.2.7.2.686 [facility] [phone] Sd dical nal 059 [facility] 2020-03-22 2020-03-22 Emergency Shun Benedict S [facility] 1.2.840 .114 [id number] Univers 02:10:55 13:40:00 Sanjay Lind 350.1.13.10 ity of [place] 4.2.7.2.686 [facility] [id number] [facility] [address] [place] 2020-03-22 2020-03-22 Outpatient [facility] [id number] Univers 02:10:55 13:40:00 SANJAY tukcer [facility] 2019-08-07 2019-08-07 Emergency E MHCY [...] code = 104) Surgical Pathology Report Case: [id number] Authorizing Provider: Chance Pandya MD Collected: 04/21/2023 10:34 AM Ordering Location: [address] Received: 04/22/2023 08:42 AM Service Pathologist: Quyen Aguiar MD Specimens: A) - Omentum B) - Soft Tissue, Other, bladder injury C) - Foreign Body, foreign body for ID DIAGNOSIS (test code = 3220) x0bpfTUfTUGod3myZYQnqTCtMqDkPvReVcCoKd p lsEFkRXpozuEuELmsjWhcGFNsFNEvMN5lrJjzlI x1sGrkHPMjgnQ9eNLbGWgve9pnFHO4c8bghfuyZ ROxYAzuCm0diKDsxFcgBbGwXZIiGLk8nU03NVAs iB4qgCDtWNn3WVIguSTelcLqYvGnTEFgvTHibIQ 9YAMzAG1scpgdHCdkZCfpPYLpoqR6IMOibSGcP6 RwVGLcQY8niknjVVE6JXuuXBGmISF8FrYoQTPbt 5Ycvdq9ZbCxxEIkQWxqtZZknznssnEoWQFrRG1R KO9ESH7lJCZLV1AQBWjvhSSgCPYrOnKnYoxBHd4 SETgMC1LODAETF2ZSUKUNHWHAGFKQPNODTFUHBH EGMNNGQgaGHWsZAzqVWN5SQXxKMnSSKaHqOyzNE wwGLCAttexpEXWgWv5oNAXUZcJUGHZBFEBPLIDY JZNHS0LVSOseB1bZVKJEV6RfX8SDQ2xQOWZDCVB MAWYXM4bRUmkokXBfVEFgKnYhPELDXxKQLHAWTY MOINEBFMSEV2RZIZNQSZYWPGPUMNXBJZFRXCUVV ZALRmoISJmVQicGAX7JEEzRStxmWJGEH9KUSDPP TZrrdNBvUSMfGnTtEybZXuiUGOLZVAPXF9JRODQ PJLVTA2GOL3agRSYqHHRsYZRnYFLkDATrVF3KEs 1CBCJZTSXJEF1GX92UWPCYVGGTXFYVIDIYVTBOL CMHT6CLRQsPXDgmB6xQLnzOW6ttXIYjkGNzYBHn PUXMGT4ZIswiGdtQUXSJCsaeMj9IZZtPQbHYL8W TORUPCY6POpWRIATqobqatXoaTEIhVm7PQEuRGf GYY4ZLNWgKG0PBYMgdZTLUNeWGDxfSDTNyPIdTN IZWKWRMCJVXZq1DTaSYIMSHGwuAAMrWDymyaIRd fZpxhdIiIZysn1TqZEwsFEDpFC9pfQcxRWSzRQ6 yKVIbE8omoI5zgxq2QaJuICMqYeW7VAAqewE5Sk j4NEMkLCqhx7eah9ZlFCCqYQn4sPhsKlGvTMRym 3cjdtZqQwMyZSCoNRWoOFNuzBUpA622c5mmv5dl thMieKB7XWDfPPI3AEoitgKxdrP1THuciNZeSpL 0OXpbhzOeUSytosCrfjChVud7RJSpP069IFU0cX qeo6fjPJZ5ANGhZQQeGqCjSs7jjLDzR957BIAxZ XWCRXIicHc2OMLthmEfkoKkaBLTq574A079c8zx TSXnaeWkxCgSjyowi0huG698NKFgxEKbowDiWaN zAIFlpCBosAE2XKEsUC4hxygpVRegMZjrGXUugr W3ZHBwvRUiH0WbLFBvAJ0wubulRAU8KBawWVUcF BU5FrAuJCSzu1Cqlgz7IcJxkf0ebs69HUO4w5Zf iLmqOKA9JXG0XgCkNt5dhATyDKUbXO8zCmLdgWK mGBUtjr09wLkkRRrfLTD0VKNqwmDho9Qep7cqFm NbhdOeI6nwQ7LqCUOmQTXfVPZnGaSvioVba5Mop 6ExvMMemFd2z0efTDQyJTVzeFjce2poDUX2DZMy dGXsE4laaX5mIRWdDS4qcafsf3yuGKcoVAmsZQP whUM8cpY3IGHlsHCxP5TqtV8yDQVtFTndPJQthx j4ZnPhPd7skSIscRxeZBbuWiuoJCcdSNIelpGlj nRccGduZGVjXHBsYWluXHBsYWluXGYwXGZzMjRc cWxcbGFuZzEwMzNcaGljaFxmMVxkYmNoXGYxXGx nY6zjCmZsKcFaQzf7QJLgwAJxTKMrGur3JJLqbT YvSDGMjUutnO1xQIPqcYxkmZ4wkBE7XWHgxvAzh HKZnG9aLZMDgA5uZvA5AARzEal1CXA8YxKfrUMe fX0= CPT Code(s) (test code = 3357) h4kvuZJcSYFjtSAePLNaEYnodlOxRZLjbCVz Z3B ivumxZTraEV3aYH8coWkspWHnbOXxDGGyNaKgx2 lhn840nNZkf0nyWQTZbaexyJt2wQqxT57se3W2Z tijA77rsQXtUCN7QLPjMXYxcIPhTHZaNZJ4NDCv wXGiV8ilZRDiVM2dgzxfNKimQMdcHXUtfWR0ZYE adPMpP0SmOLPgGInrIJWrexd1FyUwYp8qsGLyuJ hnGYlrWJToQHKaBQqjJABhYhItJQ3nGOiySISpU OXqlZOhGRDtXMj9JuF3JHaoVPWyquUIZoM9BDYl MCBYMVxwYXJ9 CLINICAL HISTORY (test code = 3356) j4mokQOuIRQwkOExBEWxDFkdduGiPAE evZTqJ7N tbovmGWfmNA6eFG1mwHsqtXGhuWCxCHZvRvUep2 ygi858tXWpb0nsJBTZcjaxoVt6nYwrY61zt0L7M pyfU5btQNUfKTgkYETmITsbfTEcKBe1GPBfiBWe xiVqFnQiNYFovFEfeRC8HYGyTD9djzfiXGcdQVh hNXUbakL0FLGfoWVrA4LwXHRkGF0ffzldAPF0QB kfMOUhNKG8ZbOgLTZgw3Zljht4ZaDntWFhNMdjb ZWpaHctcY0gHjRnAPlgBzFkMn2zEHkwnnPsc1C0 IGluIGJsYWRkZXJccGFyfQ== GROSS DESCRIPTION (test code = u6aohJYuQAGbtVYePWTvOBmwgoYiQXYgaBSx Z3B [id number]) uaoixCVzxNA5jSD6twThjnZBfcEAvLDOiYqEgz5 hoc005rXOev4ubEDQHyeobtEc5xSxpY14vb9M6C rlxK17ieJTqSGV6BZRoWBUzeLMoGDEpODU3SODx pXXuQ1yoACWfUP7ltpmzQBssNVynVAQvaHW7IHX omOKzR0CvIMZmVDthDMUdqhz7IvEiJz5qoHXsmB tnWKcgEfrvlGjlk8WwtRLyGVuwCIDgRQQyXLvzC PGxA1GBMFNpHOBoNIsmUEWcEFZGCDAmNOt2BGt2 QIPETTTsGQRcIDx0RmIhJCQdGMEYTKNhYgDeNFY wMOwjCNkhaXJrUGCpOLUfLMQyUBsmwaR3l4ttLR SsyEGpUYW5OEayfWWuEVRbBKSgBIeeClGSBkWnD eDkRGKmZPI7YxQfRLs8RJaqO4BVPDAaSJX9Dzbj JTH9PaQ2MDd5TOMJBg8mIiD8PoO8QeAmKEK3UXG 0XEynxLRhQSrmz4RcYzXvAMGqSDsesmJ3WSUwrf KdtAaerM6lYaZzMyBENrUMpHNdmVReUNLzukfkD UCmTONpTkVsPFJuA3agUzEoHKSlXuLoXBIoE8nk TANjMOEqOCutICTgHcHjTcPaBFy8WWSecC6xVq7 lqSYlsO9twZIpMPsoMYN9qVGgWUEeFYYqGVUqFY 64W6OuwuDtEXraELLlVJRtxJ7qLJ54fOIcbyBom oBdEa6bND70oN8gRUwgQQPsWt41RByhKR92SSps LM15RLYtSYXunyLpp06sz1RgbUYnDHzjiAzfvpl pOqzoff1lRQL6uFQrgXSqjGXoYDmtyXzaUWBrsE Mar2TyDS5jiD36ZB8dWGTwuRLqKE79TWCdFfYma ZMulFlvdrQpCSr4GFB9MA3fIEZiD3Kap82cahuv niY2LOIckwIlKTWvhw33GBrzq1erzU1xq4evigB cxRHfCPQzHlPgZrO5dZvgK3Y7HWK4wyTbO8FrTE SCbnIlgWSndrH5KDVzIINhq91eASPpIRLuVGJps GlmaWVkLiAgVGhlIHNwZWNpbWVuIGlzIGVudGly YBq4ZFO7Du1rcETfNHGlcgXBGJ50VKDljHVnSXY 4GO2dqXphPDE1IOrbMYZxM2EfQ9RePHwaQTK2NK DuOrEtTAYvDJ4XVsNhWCBzELE4PntoCbF2XRo3E BNULuAiDeRjSvGqDFPnOqWlZNb0DGl3KYsIMiG9 Obi9CcB9OmScMJY1UQEeTJx3DZVsRDhlajLeWEg yHowpBPtkB28uxEHqOFzaBrAtWQpriGryYUKrBX N8CQXxVlXiJu5iU04xiVVQuZLaiWCoBL95iPRcP BSgltahTVXbHTKhUaTrAKPoV5lfPjXdTYVqVSby ZLXgAxDxGsBeWIx1YWZdcB1eBf5guULwpC7uyDP rKAdpGQY6yPWoSREkQOVhPOAaCU59W2PufhRsOY krSRMtKUHctU1iVF51cOKepdYfodNkSyEgWNVwS BIflI1nfWI4XjMrzbIgSgN7rm8vvRCviUDbGDTa JGonYR09foWgXiOtsTHliPZuaLhevRMym2MfjFC rrHOaCjbxSWXketAoeQMmh6YmdJbwvAIdEF1uLZ Rzca9rNOVpKA25AbImB96jeB6sK0EfLONds7UqZ DyiSL9hdC2zXxRjPAduWXGsKHciNW59euBlreRz NAtpWmCyFK55eNDtdZqbdQ6uSRXxMuz3ATfgLgs bN0lmDY2lIHarAXWzIfBvR1LeyChlulmbEmSwZS DuBUgmAXImrAVqUWZtofvrEGKgA2GquMddgHFyj 0FslDXsnZNrDRjrdGYgw8rsaeAnqRAkLFZyIwXn iINhZ6K8VLW8qsEsO0GjWFHUxFCxm4IaQ7lbVZ9 chRBhPN32gIHuaXvcf2SosHw1kWBsCKAzPTPzuP okq5N2GCYsznrcAUIqBTDailTKRJP2rO3fLUHrU IXueFPiGWOtBhUaHAPeYZvyMX79HRIyNALhWIcl aPVjDMZ1wN7pFIQmdBSxMXXyWWK3AbVjIBDsUDv vJV79ORAlTUDtPXilyXBmKYJ8wN3pCCTcyZOnKJ ZiItPuZNAyQ0utWJWzAMX0FiFkYJIpPVkzYG90o 3tpsQiqj8CicOYhOT3wnRCfe8dsOKQohTUlQSE2 IFxcaWQgNTEwMDIgXFxkYiBPVlIgIiAxMDExODI 7LgOvJPq5WTpbQ7FFZEEvZRO4QmskXijxYvT3IO h7KDITNv0cTiE5RlD4EbW7YXO7WPW0JLlhhHVjZ Xepa4UdQhHsHDFyGFvxbtB1ZOOwoiBqo4DxBRQb CRTuU1xxEtUuMNuwqjJzFCXaAGTfuqLrV48kNo7 qqIvfXDOfcISvKPdlSpQbWTZnzLWFi2CwOEevxM GpgmmtceLjLXWgW9MjbtLhCOGzFKLvQNuqXaHhM OQni3y2kUG7cAXepKK2mFIfgOhkCS3cxETwWMGq C0Nfq5waarPdxI0yBQLxTO8yAIHfr9GkcUviZDH nQAaoDDvhWBMrBEAcYvQgtICpirOwFT8wmSaxHl taBY8rWYPiGZNtlCCyawRxoEUeXUPxlmCmaWAco QXuRAE1aQipEEGkI0OaXTJxswAxZ42nGw6fzITc n64jcWF5KE78BOjqkGlhxYGpQ7NtJME5gDB5THE tr3CsFKbfVWXcVDDbs7mjp7oehyuawK8vR3OynC Yum312AAPonvnaKPDrQFWvmiQHR8IPYhtQXgpxp ZHpDNgoj6eagLNitVipKEExHjBPLZ8VQIHlylzw USGhJMCyno0iwmFruL98j3tuDBIjOElwVGIhc8G oLkZxXo9zl7MivXgnxnHtMNLxWQW2Kd9mfEMhKK 8jVQQrdHUfdDYhkIPmunQzx9DfP6Dvg7BhMPggv VunOZCsh90dt25hlA4jmVVzJSWqovrpPOKoFZQu jYKUp0FcBJZInBpzsmUJxcf9EBajFXGhNSZBTDY LEIVmNTVUGTm9QUIiyHCwUGS5OU2lbJvsDEAgP8 IfS2OearE7VIUbak6= MICROSCOPIC DESCRIPTION (test code = j7qciFJyITJooFHfBPNnJLqzmzUzEM MimNPhL0U 3371) kpuspHGqbCY4uPP8okAhgkKCnmNZoVZHpRlGeg2 tfu244tOAir8asORLIdngucXm0dLqaM39we3U7Q fumY86tqFIoCAG5MZMaQWLcjDRrWMItNFT7NJFj uHDnZ8lxVOTsCS4kefnyXUouDJlqCCTqzZJ3VEM jrMWoC5YtIUYcAGagZTMurgn6LzAdJv9cvHLsoR htKIjyHLIdTNXuWCtrYKZaAcBjLT5OUxNPRWDuj 7QdDYUmQHnxBQFovFAmFPGaBI9uuCBewBJeyEOb YmxlLlxwYXJ9 Gross assessment was performed at (test [facility] enter, code = 2777) Department of Pathology, [address] [place] [id number], Technical component was performed at [facility] er, (test code = 2778) Department of Pathology, [address] [place] [id number], Professional component was performed at [facility] enter, (test code = 2779) Department of Pathology, [address] [place] [id number], [id number] 09:04:09 Test Item Value Reference Range Interpretation Comments Case Report (test code Surgical Pathology = 104) Report Case: [id number] Authorizing Provider: Chance Pandya MD Collected: 04/21/2023 10:34 AM Ordering Location: [address] Received: 04/22/2023 08:42 AM Service Pathologist: Quyen Aguiar MD Specimens: A) - Omentum B) - Soft Tissue, Other, bladder injury C) - Foreign Body, foreign body for ID DIAGNOSIS (test code = [id number] 3220) FuZzEwMzNcZnRuYmpcdWMx IHtccnRmMVxlcGljMTAyMD NfEI1mkVpdoAg6bHwqLZHs hoO8aOFbGEqmv1izSSL7h7 uxqbteKUYvWKljXt4dpJPn mMvwBlIrKZYgQXs1vV71NY KusP9rsNRdYFs1CMFrcWPe pgLfPaDtKYRbuUVrfTP2YM XkVH3meoqaDTinIBqxFUPn jtL2VFMltVMyX6YkCBDsYC 3brjhrYRM2NNqzLOCrJWB3 CrGeDIUpp8Klnxk1QeRhqK FyZFxwbGFpblxmczIwIEEu QE7MIF2BVS8dGSOYQ5OXCW ialYOjNNUwOzDwEktPVc0Z REmSR7FTZIMNS9ZKXTPUFN RIIEFDVVRFIEFORCBDSFJP OdzKJRhYKwgZRT1BOUtHQg BBTkQgRklCUklOXHBhclxw IVLaWy2kVALRGbQIEVPRTC FQXMVQOGTRE3MFRPxhZ8nY HQVWM2ReF6DIG6dREVVMNK ISNUZVO6kWVqxyaGLnQSDi YiAtVVJJTkFSWSBCTEFERE LJFOOHE5LSNETBUWLMRJDS VVRFIEFORCBDSFJPTklDIE vIPbhXEC8HBRiBWafzQLSK I0FMSTCDDTvhxEXmZBSzLf VlEnsMMllLHGBBTHPXZ1RQ VJIMGGVKY6BRO5znDOCmTV OhOXNfRRXiTXTgVB2CGq7U DGYUZPAIBO2UK52BMYGCUO AAUWQGLVZEKZMKXHLHA1TL BCmUPIioN5eXAsmQF1xiCW WbrUApCRTgQBGQIG0XNqhr LtfCOWMUDyljBs8SJNgOKp AHT2MNFSONQE0HKvIOYGWo fgrfaFzpBREnUd1JPVvRIb JEZ3GOOOgII5SMOYweRRBF TlRJRklFRCAoUExFQVNFIF UOPJJARs5AZnNYFBIXMefU VElPTilccGFyfXtccnRmMV uci2FyAXviPUDmDS7heIjp LORyPI8cYIXcN9qecS5zvj z5UqTyTNVrNgI0DPPxwzR2 Wyq0GIJpSZucl1lrt7WwIV KxIWr5fIumYcIyNNEmk5lb cyBcZmNoYXJzZXQwIEFyaW QtE285i1xho6hemcJwvGP8 WFUyOPP3PDhlldFgdeS9OC hxtCUlCpW7BSdsthGnKBru liBjttQoGle8ZXAdX250YG R6xDniq4obKJQ4MFVaAMIq BkGvLm2vlHIrC782YVPcPV MBYJArgDg6RUCtalRlpxRo kXBKc563L591v2olBXEjls EcsYfZrderk6zbB886FATl cGVydzEyMjQwXHBhcGVyaD B3UPScUF6zkmvxICwsOAjm STLtrvI7IWWgbCFhA4JyTI IjTW1rrmpjAVK6RDviDCNj WXC6RrUnGPSqa8Ymjvs1Zm Zwaf4wrc14BPJ0o5OjaDns VDO3DXM7ZmZcCg4cxKHnCT QgHG5sCyHvoTBaFMDbku01 jOsjDAocFSK3MTJzzdQuz0 Kft0kpUuKhauLhO1nsT9Gh ZHJoZWFkXHBnYnJkcmZvb3 Odt9SpdLIoiSe0c4iiMAFt YSXcfZdcd5mkRNN3GNIpbX HbH6uhnO4wKMFuLJ0tjfex x6enTHkaAXikYCBxfBE7mj I5XBWrcIOcN2NcpR5tSCGj SJhyWEHdqqy6BcPiEe5fjH VyeTcyMFxzYmtwYWdlXHBn bmNvbnRccGduZGVjXHBsYW luXHBsYWluXGYwXGZzMjRc cWxcbGFuZzEwMzNcaGljaF hxMJwbHcLvDJMrUYrzG1ez SwCdNkCqRep7LNYfpNFkIF PjVoz6GVXwdZUeKQZUhVbv sR9bOHFfqRfvwM1cbQQ1PN LmasZjtZONyI0qFRYOoN1t NlZ9GWPtNck0WJW0BfPuwP FyfX0= CPT Code(s) (test code f2iubVVeLSGznEDpUWAnBN = 3357) rqioLfNWXykGLeV0Jllyoc ZYxuNO3eOK3vfCmjnTRnxB DfGEUrPgDpb5meo359nDQc l2lmNPPKuxckbUm5vBrwO9 6zl0Y0CalxA99rnYQzHCY1 NWTbKGFzvJOkQQMqEVR5VY JrzWDkK2wgDNNiPD5wsebd EPmfQMmoXSVprEA8NKWryJ EgS9RzQLZuQDrcAJRszwp8 MhHlMp3aiZEeyBjcJNueYP WfNUSuKYhlMLWiLsXdPZ8j ODgzMDQgWDFccGFyIEIuID z6FwR3QWxbAEZshoSUJcV6 ODMwMCBYMVxwYXJ9 CLINICAL HISTORY (test a0aprXDoMGAqkDQrROJuIY code = 3356) qkhuFhMLYxnOTyA0Qrumvt IDjuYM1qXN8eyAtvlPGrcF YrQPBoBaMjx3qyo575gKMz l8lbHSKBxiptuSq3xZxbO2 7al4J4IgtxI6noWUOsOVdl AKOmAFitdMHqDQf7SUYqfG VydzEyMjQwXHBhcGVyaDE1 QKOkXL7oruayRDmuWBbdCY NwqbU6FLWjaIZnP8NlBAMs IJ7jospeBFW7HGagRLOjAC U0IaQzSUZyp0Venzm0UpIq fFUyBXqjmPEpoAdwaF4vNj OxJUwkWiQeKw0iDGeugjEw o8D2UXooTVFlYEFcLLAdzV FyfQ== GROSS DESCRIPTION (test i0kpeQHmDAEcnWGbCONxVQ code = [id number]) yaubUdVHYmqBZhA0Xrtram BLveWZ9dWH8dgZfzwSShdU EcXNHsRpLag1zkm335xVWj v8hwYJNFdvrjmLt2hXbjH2 5rl6W7LckfI61ddRHkFUT2 VKGzCZGsfQLzFFEoZKK1XU NskQSdV5naEOJjTN2mtodn QYuhKDqvFNEjbFP6UQTzwQ WzM9UcNWSvTLuzVUIvmtu3 TeYaFp8gmOPcqNchIQnzWh iyvDzjr5VnqRIjQPdoNADk BBWdOSsbOSFeZ4TMSZTcIY AxMTgyODIiIFJFUSAxNTk2 ABl2ELWBFIEgLNEvWPw5Wr UyMSIgTFJSIDEyMzAwMDAw MDkgXFxuaCBcXHQgMSBcXG EjYWtwncZ6g4geIDYvpIAx YKO8GJeiiDAmONVwADIkVY xkYiBPVlIgIiAxMDExODI4 YdZgBKv5DUfbD3AIWSDwUW K1TdmaHVT2KrH5MLm7MHKQ Un9hLdD9QuX1QrDmTXT6BF P8FCflkXKjDTybp7StWqOb WNBvRMyajvC8RQVihpXkqM sivD2tIiSpKtECQfGCbDCm dHVtXHBhclxwYXJkXHNiMz MkNXSqS2kbObLvXUUjJiKo IUSqC6heGVXaOKGhSFfzOL DrEtTaQzUwGAa0TRIgxB2h Qm1orZEvbR5tuNWrIHnmCK I6tCGuGXBjOYLuTRZfOK45 S0QbbgHkMDyeODJyGPSfsA 0uWB81sUYbbvZdbfFxMj4d PA06lL4dDLzxFVKcHg62HO qbUF19NAlmBZ32FOKlOJYc huKcj23uu6TtvEBdULmnkL fovbqeRmpacn7oEYN9hYGx bWVudHVtIHdpdGggYSBzcG Ccc9TqRV8htH34OC8aQCDr mQVyKN02WWDoMjHzdENtxA tugmEhLYm1VSW2JX8sFKCh G3Wsq07dqgzjewL5HXEuul QvFBCfsg81QEmad8tqrG9o b7utdyUlsTZrXIZsXuGkJh E6bVekV2K1QAM5juHfI1Gl ZXAXblWunBSygbF2YZDxOD Iqh54xDCPhAZPfFMQmyJnv aWVkLiAgVGhlIHNwZWNpbW JkSArgPOAugSpqANn6UAL4 Gz7bpIJuBMYvboNEXY66ZW AayMPhELO0MH8pgFktBCN3 JBmuICXqW7UkA2TbJGyuBA U8VQSwYaJoFLTyCA3YUtAe VBCtHZP1OkjxSsU0RHr8WT BPVlMgIiAgMzQzOTMxNjQi ZHg2VLt3XJtAUiW6Unc5Mx I0SzPxTKO9YYXtTZm2KRMk XFxzcyAzIFxcZmwgXFxuY3 1ccGFyZFxzYjEwNVxlcGlj QPNgCAE5OUOsQcPaLv6nY7 1puJGSzFSjqPHmXF34nLEs XHBhclxwYXJkXHNiMzBcZX ChV3oyZtPwDTAuNMdxBREc LqTrQgDbNKg6QGCggR5eLt 8gdIGkaW0igEGiTHndMYC4 oJFvQCJxKRTnPLHtLQ27Z2 YogdUhWAejNYOmUFWgbO7z XW10pQPytkUvzpSqCfAxBZ VaEZXuwD6ypBM0UsCohiVt DwG6xp9eoHJnsCGuWIXkPK veWH50fzNdMhSdvHMzrENy wRticWYsj4SfkJHmtSWjNr uxQAZeipKehTHiu2WoaYdc wNRaOF0jZQVhxd0gURWpGV 46DfIqI80fmI3nF3LrOCWr n7QwPGmyMF6juA4zFdIyOJ lzJUSoEIayKW94tpRkmpMl ZQbbKxImSY02fONrxLjikY 4cDEPnIhh7MSndKnsjC7ey IT9oGHemXINtKpRdT1BffS lvbmluZyByZXZlYWxzIGEg xINnWSZwfgtnXFZfG7AokE chlLJqd6QntUMzlTXeWApv jYNvn9piehSkyEVmDAMwSp BtyGRvG2M6IVX3dsYcI1Sy AVGIlFQyo9GiA5wvMJ9epK OsWK52sVMgvVnau1FmrYc5 eZKoYCQyYHBmoMaov7Y3DZ BhclxwYXJkXHBhciBTZWN0 iZ0kNSSrTYIqzANrYRWjQi EfTAHoLRdtDE19JHBiHGJp MIzymEHaNSO5bI3vCEIfkO GxXODoUYS6OmWnBEUqEQnc IT76KVFcPCPoYEvafXRpFH R8vG6qPOVfrHFyEBYvHjIm HFLjY9teBKTzLQT5UzAeGV JmYOlbVQ88y8mmtWtux0Cw eEClIY4guVYyh5rjRFZvgF ZvBTH7YCsooAExQWPlZIZr XFxkYiBPVlIgIiAxMDExOD L7XoEqYTb3LRrjI0CFSJAz UJB5DxujJghtGyC5TSw5WA DYWi9xGnK4YxC8ShJ1OKT3 DIT6IUcnvRFeWTtua6NjOx JdYUPbIKrjkbY5QKJqerZh j2CnOHJeIZUoV6xoJiVjBA zbcoEaFJRxULVjieQcO71e Wu2ptPxwTFXvvMYcNGvtKx GnXTRopIJDa7NtOLnchJCr bkibfuZgMDBkE1UttlTiOF AuSZYdEUcaAsScODOvp6l9 fEY3iGIicTS7yZJvgJszOT 8cgNYxPWJyC3Ryt5qalxFg xB6eWYZkWQ9lJQBow2YvqB duIGJvZHkiIGlzIGEgMTIu VfPczECpldNcKI2hfHwqYn lwMQ5fUHJmFJJijKVwcaRp aWFtZXRlciBwdXJwbGUsIG B6wYdmMEAtM0IgOECooeNn D66vHr4okDBky23wiSW8GY 71SWoogRkziVZeL8DmWSY2 tAZ3DMPev4UqJXmgEDJbLV Xjl3nzl2ppvstrfK2iB4Nh pQHam131ANQcudvhEGUbJT UljaYII5ZZRvsSPtqanOVj CEyaq2wrdLOdiRrjYMPwIk HZZM1BNIDfimskBURwDKBu pu8vjnLihA67m8fzZELyNC pdBZMke7WiFcHjQe7el4Xz qTwcbxAqSUTvSEA4Um9wsC ErRB3kAEKddJJphICbgPZl bwUlo2QnW6Nxs3ElDKbtpK wkGWCdh11uh38oyD0nwPRp XHBhclxzYTMwXGVwaWNYc2 IhIVNIkAmvuoVYgna9QWfa ZXMsIFBBLCBIVCAoQVNDUC b8AQBeiHUfWDD7XN0geMco KOMeT8NbT2HgqmJ9PLEjus 0= MICROSCOPIC DESCRIPTION r9trvAHrZSKwxNJaYTWoBT (test code = 3371) imctRvZOHfjJWaL5Wdyqta DKczCJ7hXD1uzCslbLRgfH LbRNAdLdCqq4mnx219aOHh g5viIEHGgsjfyZm2vArcR8 6tc4S1NwtsX93wdXNnNZV9 AHOjFHGruWTaRENtKCU5LD PzwXUmP3ooAGVwZE9dtdse VVtgEItaDCUzvHA8EHOjnQ BqC6KcWQZaVFxwVTCllty7 OlAqPh7eiXFdwJdrHHqrCG AaEVEsVFujBZAeJrKfOI6O CmYFEDQnk5ZzIDDqDIldAQ FqiPCnHLMoJB8kfYYtuGQu aWNhYmxlLlxwYXJ9 Gross assessment was [facility] performed at (test code Medical Center, = 2777) Department of Pathology, [address] [place] [address], [place] [address], Technical component was [facility] performed at ([facility], = 2778) Department of Pathology, [address] [place] [id number], Professional component [facility] was performed at ([facility], code = 2779) Department of Pathology, [address] [place] [phone], [facility] [id number] 09:04:09 Test Item Value Reference Range Interpretation Comments Case Report (test code Surgical Pathology = 104) Report Case: [id number] Authorizing Provider: Chance Pandya MD Collected: 04/21/2023 10:34 AM Ordering Location: [address] Received: 04/22/2023 08:42 AM Service Pathologist: Quyen Aguiar MD Specimens: A) - Omentum B) - Soft Tissue, Other, bladder injury C) - Foreign Body, foreign body for ID DIAGNOSIS (test code = [id number] 3220) FuZzEwMzNcZnRuYmpcdWMx IHtccnRmMVxlcGljMTAyMD NsRD5mcXdgfKi6oYssHVCp glP6bLIrPZmqn9iiGMR4x9 jmascyOWHxWNjgGk9kkZCm dOulVzHdNXJjQWr3gW87EO IzcN6njJMnGTl4VFWtrBLu zlVoSkHrOXEqoHAhfPP5XK PtRZ1hgvrxGYyjEMdgBGQi obM1ASItyYUdB3JnXRRfAG 2gaetgQGO2EZadJMWcIEA1 LiXaYZLyn7Xfsyf6VdDfcE FyZFxwbGFpblxmczIwIEEu JU5HZB6BYY1hLVASD4OIST uejBUdKAElIdDzNhjNSf4I ZSoAK2FRMUGHJ9SVACSKGU RIIEFDVVRFIEFORCBDSFJP XyeWAYrCKctORY8CFZgGAc BBTkQgRklCUklOXHBhclxw EWMcBj8pHRMBMcDPQSXLTE SQZDEISAIGP2CQJXkeF0nZ ZSERX9EuG1FAE9bSWRQKAQ ZETDQRW4dVAlrhoGKzQYZr YiAtVVJJTkFSWSBCTEFERE GZKRZSB6RXCHGTSNJSGCTC VVRFIEFORCBDSFJPTklDIE qXKkaVFZ4BSEfYSkemEBHD U8QAOWQMUBsrwFImDFUzFn ZxEqtZNutBRCRRUOAMP2PN AJXXZSPOR2PJZ7taEWWcBQ PwINXdIIVtVQFqXB8GHd1N KRXYDCDASC3TP42ZSGNSFD JPAHOYFAFAODODWYPQC0VQ WNfXWArmA6lEHsvRU3qoNV WvqDRmTVFdZDJVEB9YRwdf KccSNFXIGfejRa5WJFnRBb MWY1YLSBYEPL2ZGuGZOJEc yhosaBjvGXRaNj6TFMhBTk CIW9EKKOlVC6PRHUvzXBNF TlRJRklFRCAoUExFQVNFIF JHPJUHLa5KPePOQJBWApuB VElPTilccGFyfXtccnRmMV zow6FqJJnrXBKlMY4cnLzi LZHeNA3xBGChL9tzwN3tcl u9XjNpAMTeUtU2CPKandD7 Jdv4TWBhSCqql6vcn8WrOK TfQUm8dKeaQtPmXTAtz7by cyBcZmNoYXJzZXQwIEFyaW JdT899u0gcf8wdjqMhiWH5 ATNdFTK3HQefjgCqiuN8GB zqkCZtMtL0PPhmegMvUCkl zzDnnhCaCpr5RQVzV782UO R1yRzce3jjMSI9KGFtQXGi TqZjDr5dwIMqF913AXYbQK ANWUIlrAs4QCYdhdWroiVb dSAVt170K827v0guBXOcko OrdRdQcfbht7svC731EJCe cGVydzEyMjQwXHBhcGVyaD Y1OTOcJB0zvrwoHUrlRNjv WFEytnI0WTTpmOTpI9BpLW PpTY3aujpoQYQ3OLlqNMQt YPB6BpBjMEYnp0Oeiac0Ra Vaxh3udp76NMU1z7JzmSsu XDL8LDI6TnQtBy6vzXTlSA WjXJ3qEvAkrLAiEILecl37 bSkeGSjrSGX7MFCtnbQgi0 Qcw4vqJtNpboIpL5uaT0Ky ZHJoZWFkXHBnYnJkcmZvb3 Xvn3BgrWJcjJs4z1ebTWMw EQKboBevm0hpOQU7EFZqgX PsY2zzzB8mHZLcMK1fabff e0yzBNndXVyfSEYfwEI2nu Q5FHQraRGqS1MvsV8iCRHl SWwzNBCzfcs8GsFbWr6qbF VyeTcyMFxzYmtwYWdlXHBn bmNvbnRccGduZGVjXHBsYW luXHBsYWluXGYwXGZzMjRc cWxcbGFuZzEwMzNcaGljaF kjTZheBpWoVDTtRKodJ0yz EpQsOhNkLqh0VUCaaFKjGB HbQvp8WITngBWdDUFUpIqr wL7hRCJfjRpjuI8efFW7DS CisoTkwTBJkC0xRDNYzR0y YsY0SGMjUmo7XUM9NgHjeW FyfX0= CPT Code(s) (test code b8mdtKKbEPVfxMJaWFBzXM = 3357) vexzCyCXGxcHRpD9Cjaryk QYiwAS6mOJ2hwOnsmYMiqR AiYAFmPnVhl7cjx231qCGg x5nvSSULvzgdkRh2uKmeJ5 2me4A5FmzqT82viMAsFCS5 ZEXyOQUbvHKiNZAsGDT8CD JjhERgV4okIQChAU8tyfwe RTzlOKtsEWGodWR2UAXqyC RrH0BvPFMhGOamOBSakev6 GsMeEk5duYEqlRjfZKqdWC ZeXXTjHShxFXPqYgKqFN3g ODgzMDQgWDFccGFyIEIuID i7JsX2GEsyEONumtDKTyE4 ODMwMCBYMVxwYXJ9 CLINICAL HISTORY (test m4gnfRWnFRCmpEPtOTRcTI code = 3356) evkzCjWMHivTSeR7Izvdnh OZpfXN0pOY4kvUanfLEdqG UqCOHfDmSud9uyz075pIRu l8nzHICYyynqhZe9sWvgR8 1up4G1SyojZ4usUYDeQDqc WOLgMNrzxONiTIe1RGYoaR VydzEyMjQwXHBhcGVyaDE1 AWHuQZ5cnfomZFpiSRzqYL SnqpJ3ZRUbeNZoA5IrYMIk DL2bibhzLUF1NQtkLAYpEY A1GqMpEKSck1Mxldn3RmNb lDUwTAwyvYFmeYsxmP6wLt VgJJfkEjLjQd9lWOtksyBr d4O4UXfvCWLyIKLnKUKxgS FyfQ== GROSS DESCRIPTION (test a9bpzZWkUFFawGYmNEXmPO code = [id number]) cesoNnNWFggDSdT3Ivxcdb MVudFK3uVE9hrNeblOHjvJ ZjHFUdRyRpm1gjd366iDMa l0ciXWKShpbbzHe2uWxtT9 6lb3J1ByqoG83yaAFnCXX4 KHUcUCHuqUAiJPAkNZG4CV CnxJJdU0csPCAcZF3pidve JSczYPxyNCGubZY8AJLjdJ EdG8ZySLEmNEtnJIPgine5 OfNdSh9bpQWiuAzlYRdaWd cucIqgf3JdlTDhWEqiLDHt LNAeXEjzAMJqS0ZSTQSeAF AxMTgyODIiIFJFUSAxNTk2 ELz7QJRMENDiRAWbSCd6Jz UyMSIgTFJSIDEyMzAwMDAw MDkgXFxuaCBcXHQgMSBcXG WdSNgovcK8r5tnUQXlvWIr VXM6CXyptPGrBXUnVQYrNX xkYiBPVlIgIiAxMDExODI4 XpJhMMg5ZQuzY9SQJUAdII X2ZmmpBNQ5SoB7AYe4RQLW Xg8rXaT4XuT7JcSyOYW3CE A9ODvsjVRePXxru9OaQrCs HDKoNVojqlY1SNOqgyKkmL kvcV2pWvGxKgXNNjWCiTIr dHVtXHBhclxwYXJkXHNiMz DhOEJzO5cnHtDxGIJbAxPs PQSxF3jkLBSfHJPwLSirYD FmInZhCaUbYWw1FVOavN6p Es2yvVVxkW2fcKYiCFobQV Y9oWZmTLThTDFiIQEgGY24 O7QqavQuGMkdUXCwXPVatW 7xTF49xQGjgeEmamFbQe9b NU93bV0mFJduCIJnHc63UM zaWS73DUgnPQ77TNCuYOYp fsXyk40uq6IqhMAzNAyvaV icseppJnrpah8kWNL5oTTw bWVudHVtIHdpdGggYSBzcG Fqy7HwAV7azK33ZV7kQQZr yDThRV73PMCbGsSliYGzsE zuixRaTNr3MPC0LE0jMPWp Y7Kce50xocscouB3YLTuhp MpRIBech09HCszt1qalK0l r4ewsdSsuCQzHLBcFpBiLu X6zGurU6L0VCF1ivUgI6De SEIZmzFtdWYxxqF5QOLfBB Wrc36sZABdJMXkAFTefPuh aWVkLiAgVGhlIHNwZWNpbW MxPUnfKZMepEwjFBx3AQA8 Qi2tkTGgAKFkwnHSTA80RH MyqRKuGTS2HB4nxWucZRM5 GCuoJRNmK6JeZ3XhYHyfLI Z9VLAkYzAbIBDhYY7SMvVw VHTuMUF8SxdlBsG2ZLs1FG BPVlMgIiAgMzQzOTMxNjQi UCs5LPq0OIwKPbY5Gxm0Dn K6QeJrALI5MUPvCKi7JXKd XFxzcyAzIFxcZmwgXFxuY3 1ccGFyZFxzYjEwNVxlcGlj JMYmPKB8NAOcPzGuZr8qJ2 8vuVFCjKVagKCgGD03mFUf XHBhclxwYXJkXHNiMzBcZX XnR4zuXiVgEVInDLlgXHIk WfCcNyWyLHs3WSDpoH8xZz 1anGXyoQ5ntGQeGVdpMVW6 wAOnCZIeMONmDWOuIY66Z8 JekuSnBAicGXQeKGEppI0j DP12jOVkctZigiOmZvBmPJ QyPBVcnC8eoAU0LvGbnzKa QbM8mv8bsRTcyFJmNMSaWL boEV66vbIqPsYumMQjaOLu vRgwlINwx4UedVQarQMxBf fjMQAfeqYagDBfg9QggVle eAWqRQ6cFZWcnj8mMQYkCE 20CbEiA45maX9wM4WzUHKe b6EoSZknPG5ctV8wIfUmIR ahHZXyDMyfUB39fbYqlyEx RGwuGcTbUG64jOAzwGuhkN 3fEMAhFxd8QIuxZnjaC5vb VK6wVFsqHGVuZyApU6OnwC lvbmluZyByZXZlYWxzIGEg cSJyGGVatbpnTHZeR0TxpA oreEZqi4WnnEPyfKKeVXko tYRkk7gkpbLwdVLxDMOxMd BbsIVdZ0W3JSO0grMxG2Ub KPYDrNQjb9HtD4viMA1cfW VkFW52fSMlhAquo8UmnIl4 uWQyMCHgGVDlrTevo8G9RM BhclxwYXJkXHBhciBTZWN0 cQ7bENWvMXWhbGQmOWMiZn CyTVFtUJgtFS67DFGaNSUl PXssiCQyUMD1xK2yEQGcrI OhOQQnRBE3XfBrTYDtPYdr XR68PDBmEPBoQGnczIMwOX K1nW3kRVMzdSKuYXCjYsZo WQPyD1xaLHEvGYR7NnLyZX GjCGdxHI69a5stlQfak1Fi uLYsBP7ygXDxu1ovNWYluM MoUOY6EDoyfZIjBQWbMZLb XFxkYiBPVlIgIiAxMDExOD Q0HyAcGZl0GNwuZ4WYTQRx FWU8PqwdCqncZsU3APw0CC QUTo6nOhJ5TvY7AgW5USN9 HXU2UQmqhEYyHDina6AwTe UkUJGgCAaebxO0HJUmyuOd a7CrFVMwTWJeR2ktCpBbTO whhdNaYDDgGMUkifCbG37c Vo9twSukMAIjuSWqEJovXw YrMJXrsKCAm8QfXZnzuDBl bojuhfSmHWXkC2NevdGxZV NwBFWqSGpwOyLnRMArw5e8 gPQ8zOWifSE5zSIcwLbvXP 8awHPmRLSbH9Uum7rkzyDa mU8eJUJfUZ4rMDGfh9FhqW duIGJvZHkiIGlzIGEgMTIu ImOjcLZcrrAkFL1njEhkTk fzAI2bCQJlSOFfgHThroDa aWFtZXRlciBwdXJwbGUsIG Y2uLhdSZUkQ8TkTQOovwNe L46nXn4pcXQfo82xbLZ3JC 88RJkbeMsldXHkI7ZnOYT9 jLZ1BGQlr0GnQNlcKMYuFN Vpw7wqt4jbnddfgE2pP8Di kTMog363SUFojmivFEWlYE IyshRSH3LIVroKDfwiuEIz RSjsi8cjuQQctBbmNCEhFj WKPM2BTHAffesmOOTnFRLq ow3elpYwyP67d9jvKPAgJM zeMTRcx2VoJpGnMg3em1Rp uRoenjAtBKUwSGQ6Zd1ylE OtAT2lVHRwkHJtyWPpbSBy quCjp8OyV8Kof8DmSTzcsV vzJKTvp00ma82fjI9cpWPz XHBhclxzYTMwXGVwaWNYc2 YlUTOHkTfoyaBBihh4EJna ZXMsIFBBLCBIVCAoQVNDUC m9EZDvnVXbCUW5ZL5vbDjh RNReV0TjW8WjqfF9MMVfgh 0= MICROSCOPIC DESCRIPTION r5fmvAVbQVGfaHOqTRPrIP (test code = 3371) ehcpEzMSCbbOFoA4Mhryhc MMdgIX7pBZ8jwSqvtZHxfI LcAUBnWgHpv1thn433lSMb i4clEKQPesxaiVh3lNclG3 5qg1V7HkxqZ56zjTBzDSI6 LDGkGQPuhZBmESLdYKL2EB MaaDKrM0evVCFfMH1qpiks FCocCUktHTSxeSF1UZSksI VzD2GaWXUmIVkjLAZqgwf0 QwSxZh8coURmzCgiGPjrKX WnRRMoNHlsWVUwWfCcWK8H RyESQWDlq1PpABPhEVxfOM JvgPUlXKZaEG9ytTKjpTYl aWNhYmxlLlxwYXJ9 Gross assessment was [facility] performed at ([facility], = 2777) Department of Pathology, [address] [place] [address], Technical component was [facility] performed at ([facility], = 2778) Department of Pathology, [address] [place] [id number], Professional component [facility] was performed at ([facility], code = 2779) Department of Pathology, [address] [place] [address], [facility] [id number] 09:04:09 Test Item Value Reference Range Interpretation Comments Case Report (test code Surgical Pathology = 104) Report Case: [id number] Authorizing Provider: Chance Pandya MD Collected: 04/21/2023 10:34 AM Ordering Location: [address] Received: 04/22/2023 08:42 AM Service Pathologist: Quyen Aguiar MD Specimens: A) - Omentum B) - Soft Tissue, Other, bladder injury C) - Foreign Body, foreign body for ID DIAGNOSIS (test code = [id number] 3220) FuZzEwMzNcZnRuYmpcdWMx IHtccnRmMVxlcGljMTAyMD AeFP8dhGtsbKn1iLmiHBMd vjE5kJXuQKgkq0nwZCE7f8 cphvooGPGkPTvaVs6qiUXo tTnmTzVkCKGuUMw5gY23PZ OyqK2obRMfPIr8FHYvgRQh jvPmXhNvMGVnqMSlnYL9TY QcFN4txxrvQKevDSxgYGZt njH0WEZktVVeR8LhXUNjGN 8zhuaqOOZ8HHlyXTStTXV7 IbFuOQVeh7Lcebc3GpBpmI FyZFxwbGFpblxmczIwIEEu ZB0TEH5ULZ3sZBHOO8QJFU gvoDEpFJYbRxXlVlbXUe0N PRmPV0ZQRVYJG3XBDLHFCP RIIEFDVVRFIEFORCBDSFJP JuzUDUkXPzgJTR3MUGbEFj BBTkQgRklCUklOXHBhclxw JDScPd1oFWECMbEDPOIURK NTMMCTQIWPT1UYJWvfU6yF RLZIQ5AmL4AKJ1dDMJUVZC MIMOMQC3xLIpxfvEBzQKRt YiAtVVJJTkFSWSBCTEFERE VBSYNRG1CFJRACDFKIAMCM VVRFIEFORCBDSFJPTklDIE lMGjiELI3ZFKdTWecbDSHP I5HILTOCHAuhkNWjDSMgFb ByPrmLUreJWXYSGTBDM2FU FXVAAJVWE8VEM4sfFXGuZC GxXHArGIIrJVBdJV5SOt0N MVMEHKCVPD4HA64KDOQLAY GXUPZXQBQUCZTDWAFQE9TT IUxEOGrwF8iVRbrLZ5rbPO EfvKUaOVPeBJOKAF9YYist WxySBFINEvntGx4AHGcRMl XEU3KPESMKKF1HUmTWXGQy fnhvqIerPDZtQc8POHxSFh GOU4AAGFeKB0DNZWdyPJDU TlRJRklFRCAoUExFQVNFIF JARPWVMp4VYfHWIJZNTfsJ VElPTilccGFyfXtccnRmMV dpe6NfVRjqURUxLK3lzUmi GHUdGA9bANJvR0ibvS4hrs l9BzZrZTUfRfY5FWJgfcY3 Uda2XYJmOHird8vgw2WyAX MwBGh6iJcjZyTgLUQrc5qb cyBcZmNoYXJzZXQwIEFyaW RtU308n7jmu6ubjaJtuYA7 DLWkUFS7YCpmbjJbmlS0UJ zwrUHoBzP9NLsmezEdZRhm kpZgdtJrJpp1IUCfO547EI W6oJqhm5rzTJT5TVVtEOYd LlRsLn0ycBPoV036BFOjPL TQLVPggZz1JXJrfsHlssOd gXVGi305T612p2esXBRwjw GubSqNdnnhi7ckO778QUAb cGVydzEyMjQwXHBhcGVyaD Z0ZHLjBE8ylktpAGpsCEez OXNtuqG2BOBpvQJsE0XcKZ GoYM0pcmlqCPD3RHccNYTy MYH2BjUnNLMae5Pzxyu7Yu Iafi6smt96HZI7m8AcjUul XFG7UIR1GjPfJo6vyCCvIE SuKW8kDtSjnNObZILccn01 uXjmXBugHMU7QRFkkrNqo6 Fbe4zgSzBlctJdP2uwU0Dw ZHJoZWFkXHBnYnJkcmZvb3 Xru7OsoJFxuZi7q9ypISRe ADJvvUicx4iiLXN2ENAvoQ WrD8hjhK4dTPTxBD0vdbue m5mnDSngROpzVYWilNW6kb N3IMEujHQlC9OldQ7bPTGe NGahJCKacnu6HeVoWz0xsL VyeTcyMFxzYmtwYWdlXHBn bmNvbnRccGduZGVjXHBsYW luXHBsYWluXGYwXGZzMjRc cWxcbGFuZzEwMzNcaGljaF bsPJheKuRwXMAmMBgpB4ad RhXoAsShSmi4HTOuwANeUS DsTge6FBYwtQWxEAYIiLns mO7jUJFlqAgjaV0lcDQ2FH ZpvnYbkKMDiJ9pXVNOtQ9s SuV4VZRgBqp2KHU5BgWwgP FyfX0= CPT Code(s) (test code s9xuuYHyGYMeiHWlTQSiXO = 3357) fashJyTXFzcJXoP1Qkyzqp ZZqeHV1rDT1jgEkmyXEpkE EzAQNoTwJdx7aff384aXLq v3ohCXMYwtrpbTv3iWiaB1 1qo3H3UytiO61qtOJeXNO6 FJWeHBGghEUbASTfMMB5BZ SxcCFxK7eqZKDfPT2heolu UZoeMVlfSGAnuNS9KSYfhU VbN2UwLTGdECmwEOQpdsa3 SdTaAe1ndQDzrZouWSchOR HlGVGeLKnhFKVzKbNuEJ2t ODgzMDQgWDFccGFyIEIuID u9RxH9UGwvAACyrbUTKgZ5 ODMwMCBYMVxwYXJ9 CLINICAL HISTORY (test p2efwDZrFEMoaSRaDQMpXL code = 3356) rwrpJvNSSxzWBoX2Vsjler REsjGG4iJI5mcXoqxHNwjS IxGSCxFhDln7tjd756uADr e9bzKBNQcfbleHy6gXjbY2 0fj5Z4SiubY9gmKELxEFee YCYwYIqxuRJkZHn1QPUfhD VydzEyMjQwXHBhcGVyaDE1 WYUyBI6inbtuJFyhGIpsTX MjkfL3WSAphNDqA7QhGNTy HW3iagssGQX0RKqwZLHyRO F4JrPsSLXwd3Qdtff3JmBe hCGzVJzskOSklSgwkH0vFd YwLUggMrBjCd3wHTicckNu h7B2ZPhePBVkTIFqVRBckC FyfQ== GROSS DESCRIPTION (test t1ehaJTxTEXbdAPaDUVcQH code = [id number]) pbcwUeOVFrqSNrJ2Txunru NRuuRA0bIM0drIxdpASjkN FkGWXaFoQsk0may542hIPr a2czTZFIosospCj0oTqbX1 7yw6K5WmyoH59vfARxLDO7 AQUlCGLykSMzYLHoOXK1HM RfvMUyJ3ozJSIcFZ7xxxyu PZvpXYsxQPMcnXD3GSAvvQ BuE6MxZCFiIVtzSSCpnmr5 SpNpCq8ssPAqwAblVUtgPz ootFexc0BoaOUhFEukSZCu UCHtRYiwIAVbS8LEUENvYS AxMTgyODIiIFJFUSAxNTk2 TRd9WOYYLUFdZLCmNAi2Mx UyMSIgTFJSIDEyMzAwMDAw MDkgXFxuaCBcXHQgMSBcXG IkSPyhobN0a1wzDCNrpUSc YKB9TUtrcSHjZRViXXKbUV xkYiBPVlIgIiAxMDExODI4 HgIuSOf8OWyaP1HOUDLnQK O3EewiRQI6ThA8RHf6FWVL Bm1vLcW3CoG7MdAzSRQ0XH Z1IKxpoXVnGHhcx8EaHcEh XARkKWafmiF4QUNpemLxfC nbcY9sDjGoPwHCXsPMzAEy dHVtXHBhclxwYXJkXHNiMz PpOUKcO3gfVgWcLRTfXpFl GGKgM7uwMODmYWOjJLxkMN CdBnAhFgEzSLy0CIBguC7r Vs4djQHcgC1nhAObBLrkRN I5vFDhKMVsBZAbGTCiWB95 G1EmalJzCZgjOWDrWORoaC 8pCR71uOKnjaQwnlChAu9g SX78cA2nDFcoOBXtDi01OE ndBL85GWcsGG46OIRjHWZo nxOzv12aq8FomFEcLHolaQ mueceuEgqebf3zXSX3vCAd bWVudHVtIHdpdGggYSBzcG Knv1RqBJ1qlY00NM2lTESw lHOmSM13SYIuOlKewQUekG xsxrXfJVr4XFA6JX3xQFHu R0Bbz64tcujbzyD7CZVlde OoBNUkte55MBbwy9exmT3p h1etvlMhgXBtNCKeJwZkSw N2kKukJ6U4SLD0juHiZ5Db VVQChtLiwIYimgF3BEReJT Xam78wBXKoVXAtTJHupIia aWVkLiAgVGhlIHNwZWNpbW LhLSqvNMLszQbtEFc9PQL5 Lw8mzICmFWYmfaOWQW31UX OrpQGjIPL7NX2hzGflLEK0 VMgnVQYaN8ZeM7GzVTfbKF W8VUIrYrUxDCCqLI3ABdHd HUWsLLU7TienWiL7KOr2VW BPVlMgIiAgMzQzOTMxNjQi OJx8VZh4CEtXSuI7Btt6Mm P8ZxUyBJW9GVOvJHd2ETTi XFxzcyAzIFxcZmwgXFxuY3 1ccGFyZFxzYjEwNVxlcGlj CTNrDHY6JEHkYdYuCw2sI2 5beSTYfGYyaDSnKJ29xIBl XHBhclxwYXJkXHNiMzBcZX BcJ8cgLoDxCNNmXHfmOQMg NlKzRjYbDXk7EWJvcE0hEo 9doIIjoG2naNPzWKfwTYK3 xULoQQLfEDWhMREnOJ99V5 WkspIjXIbfWBMfPSAggH8g EM46kQNjhsNfyuGeSdIfUZ ShWPGevC2rdEI3SvEdmiXv LvT6cl6lzZIcwSRoPINfXZ agXA77haCzNjBrpJWdrHZp vUlzzKKfs4TbuLAimCAwUr jrRYGjxwCsbCKen4OfbMiu kMHuWT4mZYZuxs9oBHKhFL 45SoJoE98etU1wL3PgUVUb o1ZgBYirVH9oaJ6oYnJdTX mtTOUkRQwvFF98loShowBc LFuxRvOjJA16fAHirNubdW 3fDIHjHqv8BLpuMgedB6ud BB1cRIzgOEYlSyYvQ4LtfW lvbmluZyByZXZlYWxzIGEg hXIwKCEwuwgaCMYsG3BydU asjSFcm0WtqCVamUWbVGml qAWhr3yjrcHniSWwVVNdUb MmnYXzM4X8WUV6szCwT4Dk PDMRqSRcw4ZuG1whCM9deW HzMF41hSPhpCycy0SwpCb9 sHOcRHBpOFFapIznp7N3FX BhclxwYXJkXHBhciBTZWN0 bM3rEBJsHLYprZWxASUwIt PyUMZaCTehNB53ZOAuUQOe WRmvaCSkETT1tA8lVBIafK KsAPNzWOR0FiWlBDOoAAhy WY58QYOvIZJgNDbjgENsUY X4qH9qDYRnrFUdBWJfWyJd DHXkP4rzQOHxXOK8MzEgSG CrPEisUI53k3flaFqqf7Ep cKOwCK0fhRHgj5saJFBjsG JwIBX2OXrseLDkEQUiXRHo XFxkYiBPVlIgIiAxMDExOD R1WxKbUJs3ZRnoZ3MDOJDp TAO7DhcwLacwSfH8FXy8ZE MJVu9dRcG0GxE0BeK7XWX8 SRK6PHezaRPnCAmax5TzAs CyCWRqTTiocfN6QKPikpSz f7YhHBXvOCWnK2sdAgMjYW vuckSbNQLnHKTlakRgG48s Jh2zuTgbBNSunRSbHYghFs IyASLulZVTs5VjIVcgyVQz cjhrklGaUSWzG4ExsnZdBQ ZrCSCqNVavClXxBUXvo3m7 mDJ9oOOseMC1bQSsmVlvEM 2hbDZqJDYgK5Cvv5qimfTd rE6pSDFsHN5fFUOiv7DysI duIGJvZHkiIGlzIGEgMTIu SyDktEMjnpWhDB6kxWtfBc cjOM7uBDGiCHDvkUFjsoJa aWFtZXRlciBwdXJwbGUsIG C8eVtiKZXcL6VhSHXnsiPy O17gGx1guZNek73fvJR0HJ 89QIqugTahrTZhK7HxSHT9 sWE4YMTac7AhHBrsZJBkJO Tyh1yvf1ubhtpacF7dY7Zt vYDel158ATTkxcicCHYlRF DopyBEO8MUAqkZRtfiqFQu GJges4dtdVZemZhyIVKgFv BLTG4CYVCyrvhjTUKpPBSr ky3evpWydF34r7eqWTSfUN wbFXMfc1QzHwVyRd9vv9Ob lElnawJuTINdUMD8Iw1zyO RrJL8xHOAqbNHssCVtoFAk msTcj5RoQ5Mbx3JfALfohS xcTXWej66xg74ujU7atMJi XHBhclxzYTMwXGVwaWNYc2 LzPKSFwYajnsKZfiv1SIiv ZXMsIFBBLCBIVCAoQVNDUC j6VDLedYEtSLS4NX5slFzf XTVkG4MfY2WvrfW6YGUkbm 0= MICROSCOPIC DESCRIPTION y3poePKmKFYnxPCbCRGwPL (test code = 3371) bpeiWuRGCzaWRyB1Ywsmig ZAeaLB1lOI4pnFuxdDLspT ZjAYDeUtLpb4dhc028tOMu k2tgCLENbydppJf9eUtjJ8 6xb3K0PlwgF62bsXKaPNG9 NBEtKBJdpKHnQJShEAI9QX CafMRfT7lvECPuLD3qexgf TDpdQYtjYXKjtJZ6QKYchM YzZ2VlBANuKQybVCPatsz6 WzWfSu8kwZSmrOryLFzgXF UgNNGsLWhhGOTfJaEhGH5D TzFFHVBqr6IjRZJcNEdyJX SfnTSxZCIqVX2tlDMheTZs aWNhYmxlLlxwYXJ9 Gross assessment was [facility] performed at ([facility], = 2777) Department of Pathology, [address] [place] [address], Technical component was [facility] performed at ([facility], = 2289) Department of Pathology, [address] [place] [address], Professional component [facility] was performed at ([facility], code = 2779) Department of Pathology, [address] [place] [address], [facility] [id number] 09:04:09Surgical Pathology Report Case: [id number] Authorizing Provider: Chance Pandya MD Collected: 04/21/2023 10:34 AM Ordering Location: [address] Received: 04/22/2023 08:42 AM Service Pathologist: Quyen Aguiar MD Specimens: A) - Omentum B) - Soft Tissue, Other, bladder injury C) - ForeignBody, foreign body for ID A. OMENTUM, BIOPSY: -FIBROADIPOSE TISSUE WITH ACUTE AND CHRONIC INFLAMMATION AND FIBRINB. URINARY BLADDER TISSUE, SITE NOT SPECIFIED, EXCISION: -URINARY BLADDER TISSUE WITH ACUTE AND CHRONIC INFLAMMATION, HEMORRHAGE, FIBRIN AND FOCAL NECROSIS -UROTHELIAL MUCOSA WITH REACTIVE UROTHELIAL CHANGESC. URINARY BLADDER, FOREIGN BODY, REMOVAL-FOREIGN BODY GROSSLY IDENTIFIED (PLEASE SEE GROSS DESCRIPTION) Signing Pathologist Direct Phone Line: [phone] signed by Quyen Aguiar MD on 05/01/2023 at 9:04 AMA. [id number] X1B. 57830 X1C. 40720 D6Kzzjzyu body in bladderA. OmentumReceived in formalin labeled [...] part is for gross examination only.THERESA Contreras, HT ([facility])A-B. Performed. C. Not applicable.[facility], Department of Pathology, [address] [place], [place] [address], Tel [facility], [facility] of Pathology, [address] [place] [address], [facility], Department of Pathology, [address] [place] [address], YRR W/PLT COUNT & AUTO [id number] 06:54:34 Test Item Value Reference Range Interpretation [...] code = 2801) STD Panel - CT/GC [id number] 23:47:22 Test Item Value Reference Interpretation Comments Range C. trachomatis NOT DETECTED RNA, TMA (test code = 2241817) N. gonorrhoeae NOT DETECTED REFERENCE RA NGE: NOT RNA, TMA (test DETECTED Meth odology: code = 8578865) Transcriptio n Mediated Amplification ( TMA)to detect RNA. The analytical perf ormance characteristics of thisassay, when used to test SurePat h(TM) specimens haveb een determined by [facility]. Th e modificationsha ve not been cleared or approved by the FDA. This assayhas b een validated pursu ant to the CLIA regula tions andis used for clinical purpos es. For additional information, pl ease refer tohttps://[employer]/faq /XDC703(This li nk is being provided for informational/e ducatio nal purposes on ly.) CINDI (test code = Performing Lab CINDI) *[employer] [address] [place], [place] [address] [address] Diego Mathew MD, PhD [facility] Panel - CT/GC [id number] 23:47:22 Test Item Value Reference Interpretation Comments Range C. trachomatis NOT DETECTED RNA, TMA (test code = 3623712) N. gonorrhoeae NOT DETECTED REFERENCE RA NGE: NOT RNA, TMA (test DETECTED Meth odology: code = 0029597) Transcriptio n Mediated Amplification ( TMA)to detect RNA. The analytical perf ormance characteristics of thisassay, when used to test SurePat h(TM) specimens haveb een determined by [employer]. Th e modificationsha ve not been cleared or approved by the FDA. This assayhas b een validated pursu ant to the CLIA regula tions andis used for clinical purpos es. For additional information, pl ease refer tohttps://[employer]/faq /EIL622(This li nk is being provided for informational/e ducatio nal purposes on ly.) CINDI (test code = Performing Lab CINDI) *[facility] [address] [address] Diego Mathew MD, PhD [facility] Panel - CT/GC [id number] 23:47:22 Test Item Value Reference Interpretation Comments Range C. trachomatis NOT DETECTED RNA, TMA (test code = 0505363) N. gonorrhoeae NOT DETECTED REFERENCE RA NGE: NOT RNA, TMA (test DETECTED Meth odology: code = 2477739) Transcriptio n Mediated Amplification ( TMA)to detect RNA. The analytical perf ormance characteristics of thisassay, when used to test SurePat h(TM) specimens haveb een determined by [employer] [facility]. Th e modificationsha ve not been cleared or approved by the FDA. This assayhas b een validated pursu ant to the CLIA regula tions andis used for clinical purpos es. For additional information, pl ease refer tohttps://[employer]/faq /QXU638(This li nk is being provided for informational/e ducatio nal purposes on ly.) CINDI (test code = Performing Lab CINDI) *[facility] [facility] [address] [address] Diego Mathew MD, PhD [facility] Panel - CT/GC [id number] 23:47:22 Test Item Value Reference Interpretation Comments Range C. trachomatis NOT DETECTED RNA, TMA (test code = 9203338) N. gonorrhoeae NOT DETECTED REFERENCE RA NGE: NOT RNA, TMA (test DETECTED Meth odology: code = 3234678) Transcriptio n Mediated Amplification ( TMA)to detect RNA. The analytical perf ormance characteristics of thisassay, when used to test SurePat h(TM) specimens haveb een determined by [facility]. Th e modificationsha ve not been cleared or approved by the FDA. This assayhas b een validated pursu ant to the CLIA regula tions andis used for clinical purpos es. For additional information, pl ease refer tohttps://[employer]/faq /UFW979(This li nk is being provided for informational/e ducatio nal purposes on ly.) CINDI (test code = Performing Lab CINDI) *[employer] [address] Diego Mathew MD, PhD [facility] Panel - CT/GC [id number] 23:47:22 Test Item Value Reference Interpretation Comments Range C. trachomatis NOT DETECTED RNA, TMA (test code = 1587359) N. gonorrhoeae NOT DETECTED REFERENCE RA NGE: NOT RNA, TMA (test DETECTED Meth odology: code = 2836393) Transcriptio n Mediated Amplification ( TMA)to detect RNA. The analytical perf ormance characteristics of thisassay, when used to test SurePat h(TM) specimens haveb een determined by [employer]. Th e modificationsha ve not been cleared or approved by the FDA. This assayhas b een validated pursu ant to the CLIA regula tions andis used for clinical purpos es. For additional information, pl ease refer tohttps://[employer]/faq /FCW699(This li nk is being provided for informational/e ducatio nal purposes on ly.) CINDI (test code = Performing Lab CINDI) *[employer] [address] Diego Mathew MD, PhD [facility] Panel - CT/GC [id number] 23:47:22 Test Item Value Reference Interpretation Comments Range C. trachomatis NOT DETECTED RNA, TMA (test code = 3999710) N. gonorrhoeae NOT DETECTED REFERENCE RA NGE: NOT RNA, TMA (test DETECTED Meth odology: code = 2999927) Transcriptio n Mediated Amplification ( TMA)to detect RNA. The analytical perf ormance characteristics of thisassay, when used to test SurePat h(TM) specimens haveb een determined by [employer]. Th e modificationsha ve not been cleared or approved by the FDA. This assayhas b een validated pursu ant to the CLIA regula tions andis used for clinical purpos es. For additional information, pl ease refer tohttps://[employer]/faq /XFW260(This li nk is being provided for informational/e ducatio nal purposes on ly.) CINDI (test code = Performing Lab CINDI) *[facility] [facility] [address] [place] [address] Diego Mathew MD, PhD [facility]BAL[facility] METABOLIC [id number] 06:05:43 Test Item Value Reference Range Interpretation [...] De scription 1092) sq m Result G1 Norm al or high >=90 G2 Mildly decreased 60-89 [...] not appl icable for dialysis patien ts [employer] ID - ADMINCBC W/PLT COUNT & AUTO [id number] 05:27:38 Test Item Value Reference Range Interpretation [...] 0.00-1.00 PERCENT (BEAKER) (test code = 2801) [id number] 15:29:12 Test Item Value Reference Range Interpretation Comments RPR SCREEN (BEAKER) (test code = Nonreactive Nonreactive 420) BASIC METABOLIC [id number] 05:30:13 Test Item Value Reference Range Interpretation [...] not appl icable for dialysis patien ts [employer] ID - MMCBC W/PLT COUNT & AUTO [id number] 05:00:11 Test Item Value Reference Range Interpretation [...] (BEAKER) (test code = 2801) HEPATITIS B [id number] 12:22:27 Test Item Value Reference Range Interpretation Comments HEPATITIS B CORE TOTAL ANTIBODY Nonreactive Nonreactive (BEAKER) (test code = 497) HEPATITIS B SURFACE ANTIBODY < mIU/mL <8.0 (BEAKER) (test code = 647) HEPATITIS B SURFACE ANTIGEN (2) Nonreactive Nonreactive (BEAKER) (test code = 2585) [employer] ID - ADMINFL, FLUORO, NON-SPECIFIC, UP TO 1 [id number] 11:50:00 Reason for exam:->[facility] 1980 Sex: FAn imaging unit was utilized for this procedure. No radiologist interpretation was requested. Refer to the EMR for findings. Refer to PACS for any patient radiation dose information.HIV-1 ANTIGEN WITH HIV-1/2 [id number] 11:41:16 Test Item Value Reference Range Interpretation Comments HIV-1 ANTIGEN WITH HIV 1\\T\\2 Nonreactive Nonreactive ANTIBODY (2) (BEAKER) (test code = 2586) [employer] ID - ADMINHEPATITIS C [id number] 11:41:11 Test Item Value Reference Range Interpretation Comments HEPATITIS C ANTIBODY (BEAKER) Nonreactive Nonreactive (test code = 367) [employer] ID - ADMINPregnancy Screen, [id number] 07:54:00 Test Item Value Reference Range Interpretation Comments Preg Test, Ur (test code = 2112-1) Negative Negative Lab Interpretation (test code = Normal 59610-9) [facility] [id number] 07:54:00 Test Item Value Reference Range Interpretation Comments Preg Test, Ur (test code = 2112-1) Negative Negative Lab Interpretation (test code = Normal 22581-8) [facility] [id number] 07:54:00 Test Item Value Reference Range Interpretation Comments Preg Test, Ur (test code = 2112-1) Negative Negative Lab Interpretation (test code = Normal 81689-4) [facility] [id number] 07:54:00 Test Item Value Reference Range Interpretation Comments Preg Test, Ur (test code = 2112-1) Negative Negative Lab Interpretation (test code = Normal 20514-4) [facility] [id number] 07:54:00 Test Item Value Reference Range Interpretation Comments Preg Test, Ur (test code = 2111-) Negative Negative Lab Interpretation (test code = Normal 94607-7) [facility] [id number] 07:54:00 Test Item Value Reference Range Interpretation Comments Preg Test, Ur (test code = 2111-) Negative Negative Lab Interpretation (test code = Normal 27784-0) [facility] [id number] 07:54:00 Test Item Value Reference Range Interpretation Comments TEST URINE (BEAKER) (test Negative Negative code = 583) BASIC METABOLIC [id number] 07:04:30 Test Item Value Reference Range Interpretation [...] G3b Moderately to s everely 30-44 G4 Sever ly decreased 15-29 G5 Kidney failure <15Repo rted eGFR is based on the CKD-EPI 2020 equation t hat does not use a race coefficientEsti mated GFR is not as accur ate as Creatinine Bhumi becerra in predicting glom erular filtration rate . Estimated GFR is not appl icable for dialysis patien ts [employer] ID - [id number] 07:04:30 Test Item Value Reference Range Interpretation Comments MAGNESIUM (BEAKER) (test code = 1.9 mg/dL 1.6-2.6 627) [employer] ID - [id number] 07:04:30 Test Item Value Reference Range Interpretation Comments PHOSPHORUS (BEAKER) (test code = 2.9 mg/dL 2.3-4.7 604) [employer] ID - ELIZABETHOCBC W/PLT COUNT & AUTO [id number] 06:56:04 Test Item Value Reference Range Interpretation [...] PERCENT (BEAKER) (test code = 2801) PROTHROMBIN [id number] 06:49:20 Test Item Value Reference Range Interpretation Comments PROTIME (BEAKER) (test code = 13.1 seconds 11.9-14.2 759) INR (BEAKER) (test code = 370) 1.01 <=5.90 RECOMMENDED COUMADIN/WARFARIN INR THERAPY RANGESSTANDARD DOSE: 2.0 - 3.0 Includes: PROPHYLAXIS for venous thrombosis, systemic embolization; TREATMENT for venous thrombosis and/or pulmonary embolus.HIGH RISK: Target INR is 2.5-3.5 for patients with mechanical heart valves.Urinalysis w/Microscopic + Reflex to [id number] 02:32:21 Test Item Value Reference Range Interpretation Comments Color, UA (test code Yellow = 5778-6) Clarity, UA (test Hazy code = 5767-9) Specific [facility], UA 1.038 1.001-1.035 H (test code = 5811-5) pH, UA (test code = 6.5 5.0-8.0 5803-2) Protein, UA (test 100 mg/dL Negative A code = 14434-1) Glucose, UA (test Negative Negative code = 365) Ketones, UA (test Negative Negative code = 2514-8) Bilirubin, UA (test Negative Negative code = 47841-7) Blood, UA (test code Moderate Negative A = 09984-5) Nitrite, UA (test Positive Negative A code = 5802-4) Leukocytes, UA (test Large Negative A code = 5799-2) Urobilinogen, UA 0.2 0.2-1.0 (test code = 63699-3) RBC, UA (test code = 116 See_Comment [Autom ated 35221-7) message] The system which generated this result [...] 20 See_Comment [Automate d (test code = 39692-6) messag e] The system which generated this result transmit fatemeh reference range : /HPF. The reference range was not used to interpret this result as normal/abnormal . Specimen Source (test code = 2795) CINDI (test code = CINDI) [employer] ID - [auto][employer] ID - tech Lab Interpretation Abnormal (test code = 61914-7) [facility] Reflex to Culture 2023-04-21 02:32:21 Test Item Value Reference Range Interpretation Comments Color, UA (test code Yellow = 5778-6) Clarity, UA (test Hazy code = 5767-9) Specific [facility], UA 1.038 1.001-1.035 H (test code = 5811-5) pH, UA (test code = 6.5 5.0-8.0 5803-2) Protein, UA (test 100 mg/dL Negative A code = 47581-3) Glucose, UA (test Negative Negative code = 365) Ketones, UA (test Negative Negative code = 2514-8) Bilirubin, UA (test Negative Negative code = 34032-2) Blood, UA (test code Moderate Negative A = 86159-9) Nitrite, UA (test Positive Negative A code = 5802-4) Leukocytes, UA (test Large Negative A code = 5799-2) Urobilinogen, UA 0.2 0.2-1.0 (test code = 99213-5) RBC, UA (test code = 116 See_Comment [Autom ated 42110-3) message] The system which generated this result [...] 20 See_Comment [Automate d (test code = 22234-1) messag e] The system which generated this result transmit fatemeh reference range : /HPF. The reference range was not used to interpret this result as normal/abnormal . Specimen Source (test code = 2795) CINDI (test code = CINDI) [employer] ID - [auto][employer] ID - tech Lab Interpretation Abnormal (test code = 43309-6) [facility] Reflex [facility] Culture 2023-04-21 02:32:21 Test Item Value Reference Range Interpretation Comments Color, UA (test code Yellow = 5778-6) Clarity, UA (test Hazy code = 5767-9) Specific [facility], UA 1.038 1.001-1.035 H (test code = 5811-5) pH, UA (test code = 6.5 5.0-8.0 5803-2) Protein, UA (test 100 mg/dL Negative A code = 64327-2) Glucose, UA (test Negative Negative code = 365) Ketones, UA (test Negative Negative code = 2514-8) Bilirubin, UA (test Negative Negative code = 63431-1) Blood, UA (test code Moderate Negative A = 14197-4) Nitrite, UA (test Positive Negative A code = 5802-4) Leukocytes, UA (test Large Negative A code = 5799-2) Urobilinogen, UA 0.2 0.2-1.0 (test code = 32988-7) RBC, UA (test code = 116 See_Comment [Autom ated 30742-1) message] The system which generated this result transmit fatemeh reference range : /HPF. The reference range was not used to interpret this result as normal/abnormal . WBC, UA (test code = 584 See_Comment [Autom ated 5821-4) message] The system which generated this result transmit fatemeh reference range : /HPF. The reference range was not used to interpret this result as normal/abnormal . Kala Vega, UA 20 See_Comment [Automate d (test code = 49703-1) messag e] The system which generated this result transmit fatemeh reference range : /HPF. The reference range was not used to interpret this result as normal/abnormal . Specimen Source (test code = 2795) CINDI (test code = CINDI) [employer] ID - [auto][employer] ID - tech Lab Interpretation Abnormal (test code = 05276-0) [facility] Reflex to Culture 2023-04-21 02:32:21 Test Item Value Reference Range Interpretation Comments Color, UA (test code Yellow = 5778-6) Clarity, UA (test Hazy code = 5767-9) Specific [facility], UA 1.038 1.001-1.035 H (test code = 5811-5) pH, UA (test code = 6.5 5.0-8.0 5803-2) Protein, UA (test 100 mg/dL Negative A code = 85844-2) Glucose, UA (test Negative Negative code = 365) Ketones, UA (test Negative Negative code = 2514-8) Bilirubin, UA (test Negative Negative code = 82057-5) Blood, UA (test code Moderate Negative A = 40367-8) Nitrite, UA (test Positive Negative A code = 5802-4) Leukocytes, UA (test Large Negative A code = 5799-2) Urobilinogen, UA 0.2 0.2-1.0 (test code = 22335-8) RBC, UA (test code = 116 See_Comment [Autom ated 70459-9) message] The system which generated this result [...] 20 See_Comment [Automate d (test code = 15792-0) messag e] The system which generated this result transmit fatemeh reference range : /HPF. The reference range was not used to interpret this result as normal/abnormal . Specimen Source (test code = 2795) CINDI (test code = CINDI) [employer] ID - [auto][employer] ID - tech Lab Interpretation Abnormal (test code = 65353-2) [facility] Reflex to Culture 2023-04-21 02:32:21 Test Item Value Reference Range Interpretation Comments Color, UA (test code Yellow = 5778-6) Clarity, UA (test Hazy code = 5767-9) [facility], UA 1.038 1.001-1.035 H (test code = 5811-5) pH, UA (test code = 6.5 5.0-8.0 5803-2) Protein, UA (test 100 mg/dL Negative A code = 57744-9) Glucose, UA (test Negative Negative code = 365) Ketones, UA (test Negative Negative code = 2514-8) Bilirubin, UA (test Negative Negative code = 13271-4) Blood, UA (test code Moderate Negative A = 46196-0) Nitrite, UA (test Positive Negative A code = 5802-4) Leukocytes, UA (test Large Negative A code = 5799-2) Urobilinogen, UA 0.2 0.2-1.0 (test code = 82567-3) RBC, UA (test code = 116 See_Comment [Autom ated 20923-3) message] The system which generated this result [...] 20 See_Comment [Automate d (test code = 56552-7) messag e] The system which generated this result transmit fatemeh reference range : /HPF. The reference range was not used to interpret this result as normal/abnormal . Specimen Source (test code = 2795) CINDI (test code = CINDI) [employer] ID - [auto][employer] ID - tech Lab Interpretation Abnormal (test code = 16192-2) [facility] Reflex to Culture 2023-04-21 02:32:21 Test Item Value Reference Range Interpretation Comments Color, UA (test code Yellow = 5778-6) Clarity, UA (test Hazy code = 5767-9) [facility], UA 1.038 1.001-1.035 H (test code = 5811-5) pH, UA (test code = 6.5 5.0-8.0 5803-2) Protein, UA (test 100 mg/dL Negative A code = 42592-8) Glucose, UA (test Negative Negative code = 365) Ketones, UA (test Negative Negative code = 2514-8) Bilirubin, UA (test Negative Negative code = 85399-9) Blood, UA (test code Moderate Negative A = 66610-9) Nitrite, UA (test Positive Negative A code = 5802-4) Leukocytes, UA (test Large Negative A code = 5799-2) Urobilinogen, UA 0.2 0.2-1.0 (test code = 33467-7) RBC, UA (test code = 116 See_Comment [Autom ated 82535-9) message] The system which generated this result [...] 20 See_Comment [Automate d (test code = 74069-9) messag e] The system which generated this result transmit fatemeh reference range : /HPF. The reference range was not used to interpret this result as normal/abnormal . Specimen Source (test code = 2795) CINDI (test code = CINDI) [employer] ID - [auto][employer] ID - tech Lab Interpretation Abnormal (test code = 25967-3) [facility] UR[facility] [id number] 02:32:21 Test Item Value Reference Range Interpretation [...] = 516) SOURCE(BEAKER) (test code = 2795) [employer] ID - [auto][employer] ID - techBLOOD [id number] 06:00:50 Test Item Value Reference Range Interpretation Comments CULTURE (BEAKER) (test No growth in 5 days code = 1095) The specimen volume collected for this blood culture was below the optimum (10 mL per bottle or 20 mL total). Use of lower volumes may adversely affect recovery and/or detection times of some organisms.BLOOD [id number] 06:00:50 Test Item Value Reference Range Interpretation Comments CULTURE (BEAKER) (test No growth in 5 days code = 1095) SARS-COV2/RT-PCR ([facility])2021-11-18 08:28:01 Test Item Value Reference Range Interpretation Comments SARS-COV2/RT-PCR Negative Negative The SARS-Co V-2 target (test code = nucleic acids a re not 8604299) detected in thi s specimen. Negative result [...] revoked sooner. Fact Sheet for Healthcare Providers: https://www.App[employer]end/Documents/Xpert%20Xpress%20SARS%20CoV-2/Fact%20Sheets/302-3802%58OBTT-AVZ-3%20 HEALTHCARE%20PROVIDERS%20FACT%20SHEET.pdf Fact Sheet for Healthcare Patients: https://www.Collaaj/Documents/Xpert%20Xp ress%20SARS%20CoV-2/Fact%20Sheets/302-3801%59EJOF-IBF-2%20PATIENT%20FACT%20SHEET .[id number] 06:04:17 Test Item Value Reference Range Interpretation Comments MAGNESIUM (BEAKER) 2.1 mg/dL 1.6-2.6 Specimen slightly (test code = 627) hemolyzed [employer] ID - NADEEM GOperator ID - NADEEM GBASIC METABOLIC [id number] 05:18:17 Test Item Value Reference Range Interpretation [...] S NOT APPLICABLE FOR DIALYSIS PATIEN TS. [employer] ID - NADEEM GCBC W/PLT COUNT & AUTO [id number] 04:53:25 Test Item Value Reference Range Interpretation [...] (BEAKER) (test code = 2801) BASIC METABOLIC [id number] 04:54:32 Test Item Value Reference Range Interpretation [...] S NOT APPLICABLE FOR DIALYSIS PATIEN TS. [employer] ID - MARIA D [id number] 04:54:32 Test Item Value Reference Range Interpretation Comments MAGNESIUM (BEAKER) (test code = 1.9 mg/dL 1.6-2.6 627) [employer] ID - MARIA D LCBC W/PLT COUNT & AUTO [id number] 04:16:32 Test Item Value Reference Range Interpretation [...] code = 2801) URINALYSIS W/ REFLEX URINE [id number] 09:09:42 Test Item Value Reference Range Interpretation [...] = 1521) SOURCE(BEAKER) (test code = 2795) [employer] ID - [auto][employer] ID - techPREGNANCY SCREEN, [id number] 06:44:04 Test Item Value Reference Range Interpretation Comments TEST URINE (BEAKER) (test Negative code = 583) BASIC METABOLIC [id number] 06:03:02 Test Item Value Reference Range Interpretation [...] S NOT APPLICABLE FOR DIALYSIS PATIEN TS. [employer] ID - PIAYA LCBC W/PLT COUNT & AUTO [id number] 05:11:55 Test Item Value Reference Range Interpretation [...] 0-1 PERCENT (BEAKER) (test code = 2801) [id number] 22:12:00 Test Item Value Reference Range Interpretation Comments ALCOHOL (test code = 80 mg/dL 9604520371) CINDI (test code = Toxic Greater than or CINDI) equal to 80 mg/dL. NOTE: Whole blood values are approximately 10% to 15% lower than serum and plasma. [facility] 20:38:00 Test Item Value Reference Range Interpretation Comments ALCOHOL (test code = 108 mg/dL 2376950616) CINDI (test code = Toxic Greater than or CINDI) equal to 80 mg/dL. NOTE: Whole blood values are approximately 10% to 15% lower than serum and plasma. [facility] / [facility] - DRUG SCREEN [id number] 18:24:00 Test Item Value Reference Range Interpretation Comments BENZO U (test code = Negative Negative 9169221395) SANDRA U (test code = Negative Negative 9329995033) AMPHET (test code = Negative Negative 9321091171) THC (test code = Negative Negative 4264228158) METHADONE (test code = Negative Negative 7108175501) Meth U (test code = Negative Negative 5579964551) OPIATES (test code = Negative Negative 4957122458) Cocaine Metabolite (test Presumptive Positive Negative A code = 7725057222) PROPOXY (test code = Negative Negative 8878012735) Tric U (test code = Negative Negative 2191548961) PCP (test code = Negative Negative 8385844042) OXYCOD (test code = Negative Negative 7759740703) CINDI (test code = CINDI) Urine Drug [...] testing). Lab Interpretation (test Abnormal code = 75633-9) [facility] [id number] 18:07:00 Test Item Value Reference Range Interpretation Comments POCT PREG (test code = 1605) Negative On board controls acceptable with C Present Line (test code = 3574) Lab Interpretation (test code = Normal 02889-2) [facility]neXR [id number] 17:36:18 Nonobstructive bowel gas pattern. Preliminary Report [...] reviewed this study and agree with the abovereport.[facility]neCOVID-19 (ID NOW RAPID TESTING)2020-12-25 17:13:00 Test Item Value Reference Range Interpretation Comments SARS-CoV-2 Rapid ID NOW Not Detected Not Detected (test code = 23738-3) CINDI (test code = CINDI) ID NOW COVID-19 Assay is an isothermal nucleic acid amplification test intended for the qualitative detection of nucleic acid from SARS-CoV-2 viral RNA in nasopharyngeal (METAL [employer]KER) specimens. It is used under Emergency Use [...] indicated. Lab Interpretation Normal (test code = 41360-3) [facility]OL2021-01-24 16:37:00 Test Item Value Reference Range Interpretation Comments ALCOHOL (test code = 196 mg/dL 1066452116) CINDI (test code = Toxic Greater than or CINDI) equal to 80 mg/dL. NOTE: Whole blood values are approximately 10% to 15% lower than serum and plasma. [facility]ne[facility] MET[facility]OL[facility] PANEL (NA, K, CL, CO2, GLUCOSE, BUN, CREATININE, CA)2020-12-25 16:37:00 Test Item Value Reference Range Interpretation Comments NA (test code = 144 mmol/L 135-145 7855823957) K (test code = 4.4 mmol/L 3.5-5 8720282637) CL (test code = 109 mmol/L 98-108 H 2831889724) CO2 TOTAL (test code = 22 mmol/L 23-31 L 6465831351) AGAP (test code = 2-16 3397129381) BUN (test code = 9 mg/dL 7-23 2371341371) GLUCOSE (test code = 103 mg/dL 70-110 0203910350) CREATININE (test code = 0.66 mg/dL 0.5-1.04 6273831104) CALCIUM (test code = 8.9 mg/dL 8.6-10.6 4179080059) eGFR Calculation mL/min/1.73m2 (Non-) (test code = 9675089906) eGFR Calculation mL/min/1.73m2 () (test code = 5392430389) CINDI (test code = CINDI) Association of [...] tests). Lab Interpretation Abnormal (test code = 71581-8) [facility] WITH [id number] 16:25:00 Test Item Value Reference Range Interpretation Comments WBC (test code = See_Comment H [Automated 6947-2) message] The sy stem which generated this result transmitted reference range : 4.30 - 11.10 10*3/?L. The reference range was not used to interpret this result as normal/abnormal . RBC (test code = See_Comment [Automated 239-8) message] The sy stem which generated this [...] RDW-SD (test code = 41.1 fL 39-49.9 47604-7) RDW-CV (test code = 12.3 % 12-15.5 788-0) PLT (test code = See_Comment H [Automated 777-3) message] The sy stem which generated this result transmitted reference range : 166 - 358 10*3/ ?L. The reference r carlos was not used to interpret this result as normal/abnormal . MPV (test code = 9.2 fL 9.5-12.9 L 74664-6) NRBC/100 WBC (test See_Comment [Automat ed code = 2864497497) message] The system which generated this result transmitted reference range : 0.0 - 10.0 /100 WBCs. The refer ence range was not u sed to interpret th is result as normal/abnormal . NRBC x10^3 (test code <0.01 See_Comment [Auto mated = 7165398694) message] The s ystem which generated this result transmitted reference range : 10*3/?L. The reference range was not used to interpret this result as normal/abnormal . GRAN MAT (NEUT) % 68.0 % (test code = 770-8) IMM GRAN % (test code 0.50 % = 5596445706) LYMPH % (test code = 20.5 % 736-9) MONO % (test code = 6.6 % 5905-5) EOS % (test code = 3.9 % 713-8) BASO % (test code = 0.5 % 706-2) GRAN MAT x10^3(ANC) 8.09 10*3/uL 1.88-7.09 H (test code = 2676419867) IMM GRAN x10^3 (test 0.06 10*3/uL 0-0.06 code = 0809137523) LYMPH x10^3 (test code 2.43 10*3/uL 1.32-3.29 = 731-0) MONO x10^3 (test code 0.78 10*3/uL 0.33-0.92 = 742-7) EOS x10^3 (test code = 0.46 10*3/uL 0.03-0.39 H 711-2) BASO x10^3 (test code 0.06 10*3/uL 0.01-0.07 = 704-7) Lab Interpretation Abnormal (test code = 29576-8) [facility] (ID NOW RAPID TESTING)2020-07-15 19:30:00 Test Item Value Reference Range Interpretation Comments SARS-CoV-2 Rapid ID NOW Not Detected Not Detected (test code = 35085-3) CINDI (test code = CINDI) ID NOW COVID-19 Assay is an isothermal nucleic acid amplification test intended for the qualitative detection of nucleic acid from SARS-CoV-2 viral RNA in nasopharyngeal ([employer]) specimens. It is used under Emergency Use [...] indicated. Lab Interpretation Normal (test code = 22220-5) [facility]. METABOLIC PANEL (93259)2020-07-15 19:20:00 Test Item Value Reference Range Interpretation Comments NA (test code = 136 mmol/L 135-145 1186994937) K (test code = 4.6 mmol/L 3.5-5 3429843518) CL (test code = 102 mmol/L 98-108 0232359127) CO2 TOTAL (test code = 21 mmol/L 23-31 L 8932028410) AGAP (test code = 2-16 2623875833) BUN (test code = 7 mg/dL 7-23 9698711182) GLUCOSE (test code = 102 mg/dL 70-110 9582424639) CREATININE (test code = 0.82 mg/dL 0.5-1.04 3378451539) TOTAL BILI (test code = 0.8 mg/dL 0.1-1.7 6816602304) CALCIUM (test code = 9.8 mg/dL 8.6-10.6 9898357893) T PROTEIN (test code = 8.4 g/dL 6.3-8.2 H 8112073258) ALBUMIN (test code = 4.8 g/dL 3.5-5 1686430564) ALK PHOS (test code = 102 U/L 34-122 5174420429) ALTv (test code = 25 U/L 5-35 1742-6) AST(SGOT) (test code = 41 U/L 13-40 H 2192425678) eGFR Calculation mL/min/1.73m2 (Non-) (test code = 7136185280) eGFR Calculation mL/min/1.73m2 () (test code = 1872063452) CINDI (test code = CINDI) Association of [...] tests). Lab Interpretation Abnormal (test code = 50247-2) [facility]2020-08-14 19:20:00 Test Item Value Reference Range Interpretation Comments APPEARANCE (test code = Hazy Clear A 7069855261) COLOR (test code = Yvonne Yellow A 1310198701) PH (test code = 4.8-8.0 8593290968) SP GRAVITY (test code = 1.003-1.030 6340988424) GLU U QUAL (test code = Normal Normal 6216211855) BLOOD (test code = Negative Negative 3094396453) KETONES (test code = 5 mg/dL Negative A 0618797037) PROTEIN (test code = 30 mg/dL Negative A 2887-8) UROBILIN (test code = 2.0 mg/dL Normal A 1930019626) BILIRUBIN (test code = Negative Negative 3114718368) NITRITE (test code = Negative Negative 9785512633) LEUK SHIRLEY (test code = 25/uL Negative A 8088340248) RBC/HPF (test code = See_Comment [Autom ated message] 0359071435) The system [employer] generated this result transmit fatemeh reference range : 0 - 3 HPF. The refe rence range was not u sed to interpret th is result as normal/abnormal . WBC/HPF (test code = See_Comment [Autom ated message] 1210055638) The system [employer] generated this result transmit fatemeh reference range : 0 - 5 HPF. The refe rence range was not u sed to interpret th is result as normal/abnormal . BACTERIA (test code = Few Negative A 1021255572) MUCOUS (test code = Moderate Negative LPF A 2913829912) SQ EPITH (test code = HPF 0308282406) HYAL CAST (test code = See_Comment H [Aut omated message] 8824472146) The system [employer] generated this result transmit fatemeh reference range : <=2 LPF. The refere nce range was not u sed to interpret th is result as normal/abnormal . Lab Interpretation (test Abnormal code = 53496-5) [facility] WITH [id number] 19:07:00 Test Item Value Reference Range Interpretation Comments WBC (test code = See_Comment H [Automated 2690-2) message] The system which generated this result [...] (test code = 38.5 fL 39-49.9 L 80968-5) RDW-CV (test code = 11.9 % 12-15.5 L 788-0) PLT (test code = See_Comment [Automated 777-3) message] The system which generated this result transmit fatemeh reference range : 166 - 358 10*3/ ?L. The reference range was not u sed to interpret th is result as normal/abnormal . MPV (test code = 9.5 fL 9.5-12.9 99271-3) NRBC/100 WBC (test See_Comment [Automat ed code = 3373323707) message] The system which generated this result transmit fatemeh reference range : 0.0 - 10.0 /100 WBCs. The reference range was not used to interpret this result as normal/abnormal . NRBC x10^3 (test code <0.01 See_Comment [Auto mated = 0883342698) message] The system which generated this result transmit fatemeh reference range : 10*3/?L. The reference range was not used to interpret this result as normal/abnormal . GRAN MAT (NEUT) % 79.2 % (test code = 770-8) IMM GRAN % (test code 0.40 % = 8267137669) LYMPH % (test code = 12.9 % 736-9) MONO % (test code = 5.2 % 5905-5) EOS % (test code = 1.9 % 713-8) BASO % (test code = 0.4 % 706-2) GRAN MAT x10^3(ANC) 11.12 10*3/uL 1.88-7.09 H (test code = 0727176090) IMM GRAN x10^3 (test 0.05 10*3/uL 0-0.06 code = 6702607817) LYMPH x10^3 (test code 1.81 10*3/uL 1.32-3.29 = 731-0) MONO x10^3 (test code 0.73 10*3/uL 0.33-0.92 = 742-7) EOS x10^3 (test code = 0.27 10*3/uL 0.03-0.39 711-2) BASO x10^3 (test code 0.05 10*3/uL 0.01-0.07 = 704-7) Lab Interpretation Abnormal (test code = 39237-5) [facility] [id number] 18:47:00 Test Item Value Reference Range Interpretation Comments POCT PREG (test code = 1605) negative On board controls acceptable with present C Line (test code = 3574) POCT PREG LOT # (test code = 3575) [id number] POCT PREG TEST DATE (test code = 3576) Lab Interpretation (test code = Normal 87722-1) [facility] 1 [id number] 22:08:34 No acute cardiopulmonary process. Preliminary Report [...] acute bony abnormality is noted. Cholecystectomy clips. [facility], Radiant Results Inft User - 06/12/2020 5:09 [...] this study and agree with theabove report. [facility] 1 VW [id number] 12:56:21 1. No acute intrathoracic abnormality, specifically no detectableradiographic findings to suggest COVID-19 pneumonia. Disclaimer: Generally, the findings on chest imaging in COVID-19 are notspecific, and overlap with other infections, including influenza, H1N1,SARS and MERS.According to the Centers for Disease Control (CDC) and the [employer], viral testing remains the only [...] in size. 3. ?No acute bony abnormality. [facility], Radiant Results Inft User - 03/22/2020 7:57AM [...] Centers for Disease Control (CDC) and the [place] [employer], viral testing remains the only specific method of diagnosiseven if CXR or CT findings are suggestive of COVID-19. Preliminary Report Dictated by Resident: Margy Ocasio MD.,have reviewed this study and agree with theabove report.[facility]. METABOLIC PANEL (39491)2020-03-22 08:04:00 Test Item Value Reference Range Interpretation Comments NA (test code = 138 mmol/L 135-145 1549813725) K (test code = 3.5 mmol/L 3.5-5 6610079272) CL (test code = 105 mmol/L 98-108 1914019250) CO2 TOTAL (test code = 22 mmol/L 23-31 L 2293611738) AGAP (test code = 2-16 4082466717) BUN (test code = 7 mg/dL 7-23 1696988365) GLUCOSE (test code = 99 mg/dL 70-110 6995645679) CREATININE (test code = 0.74 mg/dL 0.5-1.04 1222081071) TOTAL BILI (test code = 0.5 mg/dL 0.1-1.7 1853573695) CALCIUM (test code = 8.5 mg/dL 8.6-10.6 L 1234488882) T PROTEIN (test code = 6.7 g/dL 6.3-8.2 1940054784) ALBUMIN (test code = 4.1 g/dL 3.5-5 8544059866) ALK PHOS (test code = 74 U/L 34-122 1118487350) ALTv (test code = 32 U/L 5-35 1742-6) AST(SGOT) (test code = 54 U/L 13-40 H 0010323491) eGFR Calculation mL/min/1.73m2 (Non-) (test code = 1650539419) eGFR Calculation mL/min/1.73m2 () (test code = 8467838831) CINDI (test code = CINDI) Association of [...] tests). Lab Interpretation Abnormal (test code = 69264-6) [facility]neARANZAABB[facility] MED[facility] CENTERDAVID [id number] 07:57:00 Test Item Value Reference Range Interpretation Comments TROPONIN I (test <0.012 See_Comment [Automated code = 0165306352) message] The system which generated this result [...] ? Lab Interpretation Normal (test code = 23641-1) [facility]ON[facility] COVID-19 [id number] 07:56:00 Test Item Value Reference Range Interpretation Comments SARS-CoV-2 (test code = Not Detected Not Detected 07675-1) CINDI (test code = CINDI) ID NOW COVID-19 Assay is an isothermal nucleic acid amplification test intended for the qualitative detection of nucleic acid from SARS-CoV-2 viral RNA in nasopharyngeal ([employer]) specimens. It is used under Emergency Use [...] indicated. Lab Interpretation Normal (test code = 96109-1) [facility]neLIPASE, [id number] 07:45:00 Test Item Value Reference Range Interpretation Comments LIPASE (test code = 3058116242) 58 U/L 0-220 Lab Interpretation (test code = Normal 08913-1) [facility]neCBC WITH [id number] 07:30:00 Test Item Value Reference Range Interpretation [...] RDW-SD (test code = 39.8 fL 39-49.9 27718-3) RDW-CV (test code = 12.1 % 12-15.5 788-0) PLT (test code = See_Comment [Automated 777-3) message] The sy stem which generated this result transmitted reference range : 166 - 358 10*3/ ?L. The reference r carlos was not used to interpret this result as normal/abnormal . MPV (test code = 9.2 fL 9.5-12.9 L 47046-5) NRBC/100 WBC (test See_Comment [Automat ed code = 8181117778) message] The system which generated this result transmitted reference range : 0.0 - 10.0 /100 WBCs. The refer ence range was not u sed to interpret th is result as normal/abnormal . NRBC x10^3 (test code <0.01 See_Comment [Auto mated = 9781420416) message] The s ystem which generated this result transmitted reference range : 10*3/?L. The reference range was not used to interpret this result as normal/abnormal . GRAN MAT (NEUT) % 62.2 % (test code = 770-8) IMM GRAN % (test code 0.50 % = 2959951681) LYMPH % (test code = 24.6 % 736-9) MONO % (test code = 7.7 % 5905-5) EOS % (test code = 4.5 % 713-8) BASO % (test code = 0.5 % 706-2) GRAN MAT x10^3(ANC) 6.71 10*3/uL 1.88-7.09 (test code = 6248491296) IMM GRAN x10^3 (test 0.05 10*3/uL 0-0.06 code = 9365408453) LYMPH x10^3 (test code 2.65 10*3/uL 1.32-3.29 = 731-0) MONO x10^3 (test code 0.83 10*3/uL 0.33-0.92 = 742-7) EOS x10^3 (test code = 0.49 10*3/uL 0.03-0.39 H 711-2) BASO x10^3 (test code 0.05 10*3/uL 0.01-0.07 = 704-7) Lab Interpretation Abnormal (test code = 80302-1) [facility] METABOLIC [id number] 17:09:00 Test Item Value Reference Range Interpretation [...] = ALKP) Specimen comments: ccSpecimen comments: SEPSIS [id number] 17:09:00 Test Item Value Reference Range Interpretation Comments LIPASE (test code = LIP) 318 Unit/L 114-286 H Specimen comments: ccSpecimen comments: SEPSIS [id number] 17:09:00 Test Item Value Reference Range Interpretation [...] change s in troponin levelscharacter istic of [place]. Specimen comments: ccSpecimen comments: SEPSIS WORKUPPROCALCITONIN (PCT) [...] = ALKP) Specimen comments: ccSpecimen comments: SEPSIS [id number] 17:03:00 Test Item Value Reference Range Interpretation Comments LIPASE (test code = LIP) 318 Unit/L 114-286 H Specimen comments: ccSpecimen comments: SEPSIS [id number] 17:03:00 Test Item Value Reference Range Interpretation [...] change s in troponin levelscharacter istic of [place]. Specimen comments: ccSpecimen comments: SEPSIS WORKUPPROCALCITONIN (PCT) 2020-02-17 17:03:00 Test Item Value Reference Range Interpretation Comments PROCALCITONIN (PCT) (test code = NG/ML 0.00-0.10 PROCAL) Specimen comments: ccSpecimen comments: SEPSIS WORKUPLACTIC [id number] 17:01:00 Test Item Value Reference Range Interpretation Comments LACTIC ACID (test code = LACT) 1.4 mmol/L 0.4-2.0 N Specimen comments: ccBASIC METABOLIC [id number] 16:58:00 Test Item Value Reference Range Interpretation [...] = ALKP) Specimen comments: ccSpecimen comments: SEPSIS [id number] 16:58:00 Test Item Value Reference Range Interpretation Comments LIPASE (test code = LIP) 318 Unit/L 114-286 H Specimen comments: ccSpecimen comments: SEPSIS [id number] 16:58:00 Test Item Value Reference Range Interpretation [...] HE NEGATIVERESULT DOES NOT RULE OUT THE [place] ESENCE OF STREP GROUP A.W HEN STREP GROUP A ANTIGEN IS DETECTED, THE P OSITIVE RESULTIS SIGNIF ICANT. NEGATIVE RESULT S REFLEX A CULTURE. FORNEG ATIVE RESULTS A CULTU RE IS IN PROGRESS, RESUL T TO FOLLOW. HCG SERUM [id number] 16:55:00 Test Item Value Reference Range Interpretation Comments HCG SERUM QUAL (test code = HCGQL) NEG SCREEN NEG Specimen comments: SEPSIS WORKUP- XR CHEST 2 [id number] 16:55:00 FAX: Julia Sanz [phone] [place]: E St: PRE Patient Name: JAIDEN PLATA Unit No: [id number] EXAMS: CPT CODE: [id number] XR CHEST 2 V 96310 PA and lateral views of the chest Clinical indication: Cough and fevers Location R 16 COMPARISON: None The lungs are clear. The heart, mediastinum and bony structures are unr emarkable. Bilateral breast implants are in place. Impression: Normal at 1655 Reported and signed by: Apolonia Colon MD CC: Julia CARDENAS Dictated Date/Time: 02/17/2020 (457)Technologist: Meek Moss Transcribed Date/Time: 02/17/2020 (892) By: [email or web address] Lakhwinder Print D/T: S: 02/17/2020 (8442) KILLIAN Crawford NAME: JAIDEN PLATA [address] [place] [address] Blvd PHYS: Julia [place], [place] [address] : 1980 AGE: 39 SEX: F LOC: [facility] PHONE #: [phone] EXAM DATE: 02/17/2020 STATUS: PRE ER FAX #: [phone] RAD NO: DC Dt: PAGE 1 Signed ReportUA RFLX MICR CULT IF [id number] 16:51:00 Test Item Value Reference Range Interpretation [...] Sepsis-no other srcUA RFLX MICR CULT IF [id number] 16:47:00 Test Item Value Reference Range Interpretation [...] for culture: Sev. Sepsis-no other srcCBC W/AUTO [id number] 16:45:00 Test Item Value Reference Range Interpretation [...] Note Provider Source 2023-05-01 22:04:15-00:[address] [facility] OPERATIVE/PROCEDURE REPORT JAIDEN PLATA FACILITY: [facility] Billing #: [id number] Room: [address] [place] [address] MR #: [id number] : 1980 DATE OF PROCEDURE: 04/21/2023 SURGEON: [...] without having to re-prep and redrape. The 21-Nepalese cystoscope was passed per urethra. Within the [...] The Hussein catheter was upsized to a 20-Nepalese Hussein catheter and irrigated freely with clear [...] Speci men was as noted above. MC/MODL /[id number] cc: Chance Pandya MD Electronically signed by: CHANCE PANDYA at 202 02-03-31 18:33:58.000 2020-05-12 01:03:00-00:00 [facility] ([facility]) EMERGENCY PROVIDER REPORT REPORT#:[id number] REPORT STATUS: Signed DATE:05/12/20 TIME: 010 PATIENT: JAIDEN PLATA UNIT #: [id number] ROOM/BED: AGE: 39 SEX: F PCP PHYS: No Primary or Family Ph ysician SERVICE AUTHOR: Parveen Poole MD * ALL edits or amendments must be made on the [employer] document * HPI-Syncope General Initial Greet Date/Time [...] which required "shocks" at a different hospital [facility] months ago. Review of Systems ROS Statements [...] Ox 99 05/12 0040 B/P 146/87 05/12 0040 B/P Mean 106 05/12 0040 O2 Delivery Room air 05/12 0040 Temp 98.3 05/12 0040 Pulse 105 05/12 0040 Resp 16 05/12 0040 Last Documented: Result Date Time Pulse Ox 99 05/12 0040 B/P 146/87 05/12 0040 B/P Mean 106 05/12 0040 O2 Delivery Room air 05/12 0040 Temp 98.3 05/12 0040 Pulse 105 05/12 0040 Resp 16 05/12 0040 Review of [...] me. Strict return precautions and follow-up mirela ivheidi. Patient Discharge Departure Vital Signs/Condition Vital Signs First Documented: Result Date Time Pulse Ox 99 06/ 0040 B/P 146/87 06/ 0040 B/P Mean 106 06/11 0040 O2 Delivery Room air 06/ 0040 Temp 98.3 06/11 0040 Pulse 105 06/11 0040 Resp 16 06/ 0040 Last Documented: Result Date Time Pulse Ox 99 06/11 0040 B/P 146/87 06/11 0040 B/P Mean 106 06/11 0040 O2 Delivery Room air 06/ 0040 Temp 98.3 06/11 0040 Pulse 105 06/11 0040 Resp 16 06/ 0040 All vital signs available at the time of this en try have been reviewed. Clinical Impression Clinical Impression Primary Impression: Anxiety Secondary Impressions: Syncope Discharge/Care Plan (Auto) Prescriptions Current Visit Scripts No Known Home Medications Referrals No Primary or Family Physician (PCP) Electronically Signed by Parveen Poole MD on 05/12 at 1424 RPT #:[id number] END OF REPORT 2020-02-17 16:01:00-00:00 [facility] ([facility]) EMERGENCY PROVIDER REPORT REPORT#:[id number] REPORT STATUS: Signed DATE:02/17/20 TIME: 1601 PATIENT: JAIDEN PLATA UNIT #: [id number] ROOM/BED: AGE: 39 SEX: F PCP PHYS: No Primary or Family Ph ysician SERVICE AUTHOR: Julia Buckner * ALL edits or amendments must be made on the el ectronic/computer document * MVC-Xyv-Dskn Illness General Confirmed Patient Yes Initial Greet [...] denies any travel within or out of [facility] country in the last 4 [...] H Specimen Appearance (1 NORMAL Index/DL) 1 NORM AL <2 MG Specimen Hemolysis (1 NORMAL Index/DL) [...] % (Auto) (14.1 - 45.4 %) 19.1 [place] % (Auto) (2.5 - 11.7 %) 8.0 Eos % (Auto) (0.0 - 6.2 %) 6.0 Baso % (Auto) (0.0 - 2.1 %) 0.3 Gran # (2.0 - 13.7 k/mm3) 3.98 Lymph # (Auto) (0.6 - 3.8 K/mm3) 1.15 [place] # (Auto) (0.11 - 0.59 K/mm3) 0.48 [...] - 8.0 pH UNITS) 6.0 Ur Specific [place] (1.001 - 1.035 SG) 1.009 Urine Protein [...] Type B Antigen - COM P NASAL 03/18 1615 Influenza Virus Type A Antigen - [...] physician or other designated or consulting phys boan as outlined in the discharge instructions. The [...] symptoms should prompt an immediate return to [facility] or the closest emergency department or a call to 911. Quality Measures Tobacco Screening/Cessation 18 years or older, T obacco user, Counseled 3-10 minutes Free Text Depart Notes Free Text Depart Notes RefFered to Ava Esteban Electronically Signed by Julia Bukcner on 01/31 at 2108 RPT #:[id number] END OF REPORT 2020-02-17 16:01:00-00:00 [facility] ([facility]) EMERGENCY PROVIDER REPORT REPORT#:[id number] REPORT STATUS: Signed DATE:02/17/20 TIME: 160 PATIENT: JAIDEN PLATA UNIT #: [id number] ROOM/BED: AGE: 39 SEX: F PCP PHYS: No Primary or Family Ph ysician SERVICE AUTHOR: Julia Buckner * ALL edits or amendments must be made on the el ectronic/computer document * Julia Buckner 02/17/20 1601: SBB-Hpg-Lymy Illness General Confirmed Patient Yes Assumed Care [...] denies any travel within or out of [facility] country in the last 4 [...] MG Specimen Hemolysis (1 NORMAL Index/DL) 1 CODI L <10 MG Hematology WBC (4.1 - 12.1 [...] % (Auto) (14.1 - 45.4 %) 19.1 [place] % (Auto) (2.5 - 11.7 %) 8.0 Eos % (Auto) (0.0 - 6.2 %) 6.0 Baso % (Auto) (0.0 - 2.1 %) 0.3 Gran # (2.0 - 13.7 k/mm3) 3.98 Lymph # (Auto) (0.6 - 3.8 K/mm3) 1.15 [place] # (Auto) (0.11 - 0.59 K/mm3) 0.48 [...] - 8.0 pH UNITS) 6.0 Ur Specific [place] (1.001 - 1.035 SG) 1.009 Urine Protein [...] )( Discharged to Home Yes )( Time 1752 )( Date 02/17/20 Discharge/Care Plan Counseled Regarding [...] symptoms should prompt an immediate return to [facility] or the closest emergency department or a call to 911. Quality Measures Tobacco Screening/Cessation 18 years or older, T obacco user, Counseled 3-10 minutes Free Text Depart Notes Free Text Depart Notes RefFered to Nikhil Bui 02/19/20 9258: RPF-Iru-Qioq Illness General Initial Greet Date/Time 02/17/20 1559 Patient Discharge Departure Supervising Physician Note MidLv Saw Pt Alone I have reviewed the PA/[employer]'s note and plan of car e. I was available for consultation as needed at al l times during the patient's visit in the emergency department. I agree with the clinical impression , plan and disposition. Electronically Signed by Julia Buckner on 01/31 at 2108 Electronically Signed by Nikhil Santos DO on at 5257 RPT #:[id number] END OF REPORT
[2023-07-25] MEDS ORDERED: NA CHLORIDE 0.9% 1,000 ML ONE (18:36)
[2023-07-25 19:07] LABS: Absolute Lymphocytes (CBC) 2.5 K/uL (0.7-4.9); Lymphocytes % 22.3 % (15.3-44.8); MCV 92.3 fL (80-100); MPV 7.5 fL (7.6-11.3); Platelets 381 thou/uL (152-406); RBC Red Blood Cell Count 4.66 M/uL (3.86-4.86)
--- NOTE | 2023-07-25 19:14 | RAD REPORT ---
EXAM DESCRIPTION: CT - Head Brain Wo Cont - 07/25/2023 6:59 pm CLINICAL HISTORY: Syncope COMPARISON: 2019 TECHNIQUE: Computed axial tomography of the head was obtained. IV contrast was not requested. All CT scans are performed using dose optimization technique as appropriate and may include automated exposure control or mA/KV adjustment according to patient size. FINDINGS: An intracranial bleed is not seen The ventricles are normal in caliber No significant hypodense areas within the brain visualized No extra-axial fluid collection is noted. Fluid within the sinuses/ mastoids is not seen IMPRESSION: No acute intracranial abnormality is seen If patient's symptoms persist MRI of the brain would be recommended
[2023-07-25 19:21] LABS: Specific Gravity < 1.005 (1.005-1.030)
[2023-07-25 19:22] LABS: Specific Gravity < 1.005 (1.005-1.030); Urine Bacteria <20 /HPF (<20); Urine Bilirubin NEGATIVE (Negative); Urine Blood Trace (Negative); Urine Clarity Turbid (Clear); Urine Color Colorless (Yellow); Urine Glucose NEGATIVE (Negative); Urine Protein NEGATIVE (Negative); Urine RBC <5 /HPF (None Seen); Urine Urobilinogen Normal (Normal); Urine pH 7.5 (5.0-7.0)
[2023-07-25 19:31] LABS: Barbiturates NEGATIVE (NEGATIVE); Benzodiazepines NEGATIVE (NEGATIVE); Cocaine NEGATIVE (NEGATIVE); METHAMPHETAM NEGATIVE (NEGATIVE); Methadone NEGATIVE (NEGATIVE); Opiates NEGATIVE (NEGATIVE); Phencyclidine NEGATIVE (NEGATIVE); THC Cannibis NEGATIVE (NEGATIVE)
[2023-07-25 19:50] LABS: Albumin 3.9 g/dL (3.4-5.0); Bilirubin Total 0.1 mg/dL (0.2-1.0); Potassium 3.7 mEq/L (3.5-5.1)
[2023-07-25 19:53] LABS: Troponin High Sensitivity 4.2 pg/mL (<58.9)
--- NOTE | 2023-07-25 20:05 | EDPHYS ---
Physician Documentation [facility] Name: Gabrielle Plata Age: 42 yrs Sex: Female : 1980 Arrival Date: 07/25/2023 Time: 18:08 Bed 4 Private MD: ED Physician Sam Ramirez HPI: 07/25 18:25 This 42 yrs old Female presents to ER via EMS with complaints of weakness. to 18:[place]. The patient has experienced near-syncope, almost passed to out, felt dizzy. Onset: The symptoms/episode began/occurred just prior to arrival. Duration: The patient has had multiple episodes, that last 2 second(s). Context: the episode(s) was witnessed, by a bystander. Onset: The symptoms/episode began/occurred today. Associated injury: The patient did not suffer any apparent associated injury. Associated signs and symptoms: The patient has no apparent associated signs or symptoms. Current symptoms: headache, that is mild. 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 - Social history:: Smoking status: Patient reports the use of cigarette tobacco products, smokes one-half pack cigarettes per day. - Family history:: not pertinent. ROS: 18:25 Constitutional: Negative for fever, chills, and weight loss, Eyes: Negative for injury, to pain, redness, and discharge, ENT: Negative for injury, pain, and discharge, Neck: Negative for injury, pain, and swelling, Cardiovascular: Negative for chest pain, palpitations, and edema, Respiratory: Negative for shortness of breath, cough, wheezing, and pleuritic chest pain, Abdomen/GI: Negative for abdominal pain, nausea, vomiting, diarrhea, and constipation, Back: Negative for injury and pain, : Negative for injury, bleeding, discharge, and swelling, MS/Extremity: Negative for injury and deformity, Skin: Negative for injury, rash, and discoloration, Psych: Negative for depression, anxiety, suicide ideation, homicidal ideation, and hallucinations, Allergy/Immunology: Negative for hives, rash, and allergies, Endocrine: Negative for neck swelling, polydipsia, polyuria, polyphagia, and marked weight changes, Hematologic/Lymphatic: Negative for swollen nodes, abnormal bleeding, and unusual bruising. 18:25 Neuro: Positive for syncope, near syncope, weakness. Exam: 18:25 Constitutional: This is a well developed, well nourished patient who is awake, alert, to and in no acute distress. Head/Face: Normocephalic, atraumatic. Eyes: Pupils equal round and reactive to light, extra-ocular motions intact. Lids and lashes normal. Conjunctiva and sclera are non-icteric and not injected. Cornea within normal limits. Periorbital areas with no swelling, redness, or edema. ENT: Nares patent. No nasal discharge, no septal abnormalities noted. Tympanic membranes are normal and external auditory canals are clear. Oropharynx with no redness, swelling, or masses, exudates, or evidence of obstruction, uvula midline. Mucous membranes moist. Neck: Trachea midline, no thyromegaly or masses palpated, and no cervical lymphadenopathy. Supple, full range of motion without nuchal rigidity, or vertebral point tenderness. No Meningismus. Chest/axilla: Normal chest wall appearance and motion. Nontender with no deformity. No lesions are appreciated. Cardiovascular: Regular rate and rhythm with a normal S1 and S2. No gallops, murmurs, or rubs. Normal PMI, no JVD. No pulse deficits. Respiratory: Lungs have equal breath sounds bilaterally, clear to auscultation and percussion. No rales, rhonchi or wheezes noted. No increased work of breathing, no retractions or nasal flaring. Abdomen/GI: Soft, non-tender, with normal bowel sounds. No distension or tympany. No guarding or rebound. No evidence of tenderness throughout. Back: No spinal tenderness. No costovertebral tenderness. Full range of motion. Skin: Warm, dry with normal turgor. Normal color with no rashes, no lesions, and no evidence of cellulitis. MS/ Extremity: Pulses equal, no cyanosis. Neurovascular intact. Full, normal range of motion. Neuro: Awake and alert, GCS 15, oriented to person, place, time, and situation. Cranial nerves II-XII grossly intact. Motor strength 5/5 in all extremities. Sensory grossly intact. Cerebellar exam normal. Normal gait. Psych: Awake, alert, with orientation to person, place and time. Behavior, mood, and affect are within normal limits. 18:25 ECG was reviewed by the Attending Physician. Vital Signs: 18:11 Pulse 105; Resp 18; Temp 97.8; Pulse Ox 100% on R/A; Weight 72.57 kg; Height 4 ft. 11 mb9 in. ; Pain 0/10; 18:22 BP 141 / 117; mb9 18:11 Body Mass Index 32.32 (72.57 kg, 149.86 cm) mb9 18:11 Pain Scale: Adult mb9 MDM: 18:17 Patient medically screened. [facility] 18:29 Differential Diagnosis altered mental status, sepsis. Differential Diagnosis: cardiac to arrhythmia, cerebrovascular accident, emotional response, GI bleed, idiopathic syncope, pseudo seizure, seizure, sepsis, transient ischemic attack, vasovagal episode. Data reviewed: vital signs, nurses notes, EMS record, lab test result(s), EKG, radiologic studies, CT scan. Consideration of Admission/Observation Escalation of care including admission/observation considered. I considered the following discharge prescriptions or medication management in the emergency department Medications were administered in the Emergency Department. See MAR. Independent interpretation of the following test(s) in the Emergency Department EKG: See my EKG interpretation above. Test considered but Not performed: Ultrasound no abd/pel. Care significantly affected by the following chronic conditions: mrsa, crohns, anxiety. 07/25 18:23 Order name: CBC with Diff; Complete Time: 19:42 [facility] 07/25 18: Order name: Comprehensive Metabolic Panel; Complete Time: 20:04 [facility] 07/25 18:23 Order name: Urinalysis w/ reflexes; Complete Time: 19:42 [facility] 07/25 18:23 Order name: PREGU; Complete Time: 20:04 [facility] 07/25 18:23 Order name: Troponin High Sensitivity; Complete Time: 20:04 [facility] 07/25 18:23 Order name: CPK; Complete Time: 20:04 [facility] 07/25 18:25 Order name: UDS; Complete Time: 19:42 [facility] 07/25 18:25 Order name: ETOH Level; Complete Time: 19:42 [facility] 07/25 18:25 Order name: Asprin; Complete Time: 20:04 [facility] 07/25 18:25 Order name: Tylenol Level; Complete Time: 19:42 [facility] 07/25 18:23 Order name: CT Head Brain wo Cont; Complete Time: 19:42 [facility] 07/25 18:23 Order name: EKG; Complete Time: 18:23 [facility] 07/25 18:23 Order name: EKG - Nurse/Tech; Complete Time: 18: [facility] EC: Rate is 101 beats/min. Rhythm is regular. QRS [place] is Normal. [place] interval is normal. to QRS interval is normal. QT interval is normal. No Q waves. T waves are Normal. No ST changes noted. Clinical impression: Sinus tachycardia and No evidence of ischemia. Interpreted by me. Reviewed by me. Administered Medications: 18:53 Drug: NS 0.9% IV 1000 ml Route: IV; Rate: 1 bolus; Site: left antecubital; mb9 Disposition Summary: 07/25/23 20:05 Discharge Ordered Location: Home to Problem: new to Symptoms: have improved to Condition: Stable to Diagnosis - Alcohol abuse with intoxication to - Syncope Near to - Heat exhaustion, unspecified to - Essential (primary) hypertension to Followup: to - With: Private Physician - When: 2 - 3 days - Reason: Recheck today's complaints, Continuance of care, Re-evaluation by your physician Discharge Instructions: - Discharge Summary Sheet to - Alcohol Intoxication to - Hypertension, Adult to - Near-Syncope to - Weakness to - Alcohol Intoxication, [id number] to - Near-Syncope, [id number] to - Hypertension, Adult, [id number] to - How to Take Your Blood Pressure, [id number] to - Weakness, Feqi-[id number] to - Managing Your Hypertension to Forms: - Medication Reconciliation Form to - Thank You Letter to - Antibiotic Education to - Prescription Opioid Use to - Patient Portal Instructions to - Leadership Thank You Letter to Signatures: Dispatcher [employer] EDMS James, Sam, MD MD to Breneman, Jade, RN RN mb9
--- NOTE | 2023-07-25 20:05 | ER ---
Nurse's Notes [facility] Name: Gabrielle Plata Age: 42 yrs Sex: Female : 1980 Arrival Date: 07/25/2023 Time: 18:08 Bed 4 Private MD: Diagnosis: Alcohol abuse with intoxication;Syncope Near;Heat exhaustion, unspecified;Essential (primary) hypertension Presentation: 07/25 18:11 Chief complaint: EMS states: "[place]oned out for [place] on beach. Pt has mb9 history of syncopal episodes related to a stress reaction. [place] pt on beach and [place] her off at the station. Pt was confused and dry heaving. Pt now alert and oriented. 20 g to left hand. Administered 8 mg of Zofran". Coronavirus screen: Vaccine status: Patient reports being unvaccinated. Ebola Screen: No symptoms or risks identified at this time. Initial Sepsis Screen: Does the patient meet any 2 criteria? No. Patient's initial sepsis screen is negative. Does the patient have a suspected source of infection? No. Patient's initial sepsis screen is negative. Risk Assessment: Do you want to hurt yourself or someone else? Patient reports no desire to harm self or others. Onset of symptoms was July 25, 2023. 18:11 Method Of Arrival: EMS: [facility] mb9 18:11 Acuity: CATHIE 3 mb9 Triage Assessment: 18:17 General: Appears uncomfortable, Behavior is calm, cooperative. Pain: Denies pain. mb9 Neuro: White Agitation-Sedation Scale (RASS): 0 - Alert and Calm Level of Consciousness is awake, alert, obeys commands, Oriented to person, place, time, situation, Appropriate for age. Cardiovascular: Heart tones S1 S2 present Rhythm is regular. Respiratory: Airway is patent Respiratory effort is even, unlabored, Respiratory pattern is regular, symmetrical. GI: Abdomen is round non-distended, Bowel sounds present X 4 quads. Reports nausea. : No signs and/or symptoms were reported regarding the genitourinary system. Derm: Skin is pink, warm \\T\\ dry. Musculoskeletal: Range of motion: intact in all extremities. 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 - Social history:: Smoking status: Patient reports the use of cigarette tobacco products, smokes one-half pack cigarettes per day. - Family history:: not pertinent. Screenin:20 [facility] ED Fall Risk Assessment (Adult) History of falling in the last 3 months, mb9 including since admission No falls in past 3 months (0 pts) Confusion or Disorientation No (0 pts) Intoxicated or Sedated No (0 pts) Impaired Gait No (0 pts) Mobility Assist Device Used No (0 pt) Altered Elimination No (0 pt) Score/Fall Risk Level 0 - 2 = Low Risk Oriented to surroundings, Maintained a safe environment, Educated pt \\T\\ family on fall prevention, incl call for assistance when getting out of bed. Abuse screen: Denies threats or abuse. Nutritional screening: No deficits noted. Tuberculosis screening: No symptoms or risk factors identified. Assessment: 18:18 Reassessment: see triage assessment. mb9 20:11 Reassessment: No changes from previously documented assessment. Patient and/or family vc1 updated on plan of care and expected duration. Pain level reassessed. Patient is alert, oriented x 3, equal unlabored respirations, skin warm/dry/pink. Vital Signs: 18:11 Pulse 105; Resp 18; Temp 97.8; Pulse Ox 100% on R/A; Weight 72.57 kg; Height 4 ft. 11 mb9 in. ; Pain 0/10; 18:22 BP 141 / 117; mb9 18:11 Body Mass Index 32.32 (72.57 kg, 149.86 cm) mb9 18:11 Pain Scale: Adult mb9 ED Course: 18:11 Patient arrived in ED. sb4 18:11 Marie Thompson RN is Primary Nurse. mb9 18:15 Triage completed. mb9 18:17 Sam Ramirez MD is Attending Physician. to 18:17 Arm band placed on. mb9 18:19 Placed in gown. Bed in low position. Call light in reach. Side rails up X 1. Client mb9 placed on continuous cardiac and pulse oximetry monitoring. NIBP monitoring applied. monitoring coordinator on. 19:00 Inserted saline lock: 20 gauge in left antecubital area, using aseptic technique. Blood zm collected. 19:00 Initial lab(s) drawn, by me, sent to lab. zm 19:01 CT Head Brain wo Cont In Process Unspecified. EDMS 20:22 No provider procedures requiring assistance completed. IV discontinued, intact, vc1 bleeding controlled, No redness/swelling at site. Pressure dressing applied. 20:23 Provided Education on: folllow up with primary doctor. vc1 Administered Medications: 18:53 Drug: NS 0.9% IV 1000 ml Route: IV; Rate: 1 bolus; Site: left antecubital; mb9 Medication: 18:20 VIS not applicable for this client. mb9 Outcome: 20:05 Discharge ordered by . to 20:22 Discharged to home ambulatory. vc1 20:22 Condition: good 20:22 Discharge instructions given to patient, Instructed on discharge instructions, follow up and referral plans. Demonstrated understanding of instructions, follow-up care. 20:24 Patient left the ED. vc1 Signatures: Dispatcher [employer] EDMS Sam Ramirez MD MD cha Calcote, Vanessa, RN RN vc1 Donna Bal Sophia, PARiri PAMarie Vergara, RN RN mb9 Corrections: (The following items were deleted from the chart) 18:20 18:11 Chief complaint: EMS states: "Toned out for [place] on beach. mb9 [place] on beach and [place] her off at the station. Pt was confused and dry heaving. Pt now alert and oriented. 20 g to left hand. Administered 8 mg of Zofran" mb9
[2023-07-25] MEDS ORDERED: IBUPROFEN 200 MG TAB PO ONE (20:09)
[2023-07-25] MEDS ORDERED: IBUPROFEN 400 MG TAB ONE (20:09)
[2023-07-25 20:36] VITALS: TEMP 97.8; O2SAT 100
[2023-07-25 20:40] VITALS: BP 141/117
--- NOTE | 2023-07-26 15:22 | EKG ---
Test Date: 2023-07-25 Test Time: 18:11:02 Data Entry Processor: DALLIN MEASUREMENT RESULTS: Intervals: Rate: 101 CO: 152 QRSD: 72 QT: 352 QTc: 456 [place]: P: 81 CO: 152 QRS: 65 T: 59 INTERPRETIVE STATEMENTS: Sinus tachycardia Otherwise normal ECG Compared to ECG 12/07/2022 23:59:57 Sinus rhythm no longer present Electronically Signed On 07-26-23 15:20:37 CDT by Saleem Sofia
== END 2023-07-25 20:24 | disposition home or self-care (01) ==
LOC: ER 18:08
DX: F10.129 Alcohol abuse with intoxication, unspecified (principal); R55 Syncope and collapse; T67.5XXA Heat exhaustion, unspecified, initial encounter; I10 Essential (primary) hypertension
CPT/HCPCS: 36415; 70450; 80053; 80143; 80179; 80307; 81001; 81025; 82077; 82550; 84484; 85025; 93005; 99285; J7030

== ENCOUNTER 2023-09-30 22:33 | Emergency (ER) | payer SELFPAY ==
--- OUTSIDE RECORDS SUMMARY | 2023-09-30 22:44 | XMS REPORT | Continuity of Care Document ---
:1980 [facility] t Address [address] [facility] [place] [address] Care Team Providers Name Role Phone No, Pcp [facility] Primary Care Physician Unavailable YONAS FITZGERALD Attending Clinician Unavailable Lia BEASLEY, Yonas Arnold Attending Clinician Dyllan Weller MD Attending Clinician Marvin BEASLEY, Artur Rincon Attending Clinician [phone] Rakan Zarate MD Attending Clinician [phone] Grazyna Love MD Attending Clinician [phone] Dominique Jones Attending Clinician GRAZYNA LOVE Attending Clinician Unavailable Kiesha BEASLEY, Martita Jacques Attending Clinician Fernando Pandya MD Attending Clinician Doctor Unassigned, [place] Attending Clinician Unavailable Ramez BUCKNER, Ashely Attending Clinician Unavailable Fer BEASLEY, Antonio Attending Clinician [phone] Mojgan SHAH Attending Clinician Unavailable Mojgan Pires Attending Clinician JOSÉ LUIS GONZALES Attending Clinician Unavailable Yonas Perea MD Attending Clinician Telma BEASLEY, Mynor Oconnell Attending [...] No Primary or Family Admitting Clinician Unavaila DOMINIQUE Toussaint Admitting Clinician Unavailable RAKAN ZARATE Admitting Clinician Unavailable YONAS FITZGERALD Admitting Clinician Unavailable Yonas Fitzgerald MD Admitting Clinician Mojgan SHAH Admitting Clinician Unavailable GRAZYNA LOVE Admitting Clinician Unavailable Sanjay Lind MD Admitting Clinician SANJAY LIND Admitting Clinician Unavailable Payers Payer Name Policy Type Policy Number Effective Date Expiration Date S neena [employer] [place] [id number] 2020 WOMEN 00:00:00 MATTHEW [id number] 2020 2020 00:00:00 00:00:00 AGENCY GENERIC VC [id number] 2020 2020 00:00:00 00:00:00 Problems Condition Condition [...] Displaced Disease Active Overview: Univers fracture fracture 424 [place] ity of of neck of of neck of 00:00: g of this [place] fifth fifth 00 note Medical metacarpal metacarpal might be Branch bone, bone, different right right from the hand, hand, original. 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 HPV+ on 2019 pap smear, patient needs repeat pap smear in 2020. Cervical Cervical Disease Active Overview: Un gracy high risk high risk 08-02 Form[facility] i ty of human human 00:00: g of this [place] papillomav papillomav 00 note Me dical irus [...] blood 8-25 ity of pressure pressure 00:00: [place] reading reading 00 Medical without without Branch diagnosis diagnosis of of hypertensi hypertensi on on Anxiety Anxiety Disease Active Univers 5-07 ity of 00:00: [place] [facility] Chest pain Chest pain Disease Active U nivers 4-21 ity of 00:00: [place] [facility] Screening Screening Disease Active Uni vers examinatio examinatio 2-05 it y of n for STD n for STD 00:00: [place] (sexually (sexually 00 [facility] transmitte transmitte Br anch d disease) d disease) Premature Premature Disease Active 2016-12 Uni vers labor labor 0-24 ity of 00:00: [place] [facility] 34 weeks 34 weeks Disease Active 2016-12 Unive rs gestation gestation 0-14 ity of of of 00:00: [place] 00 [facility] Disease Active 2016-12 Univers labor labor 0-14 ity of 00:00: [place] [facility] Crohn Crohn Disease Active Overview: Univer s disease disease 12-02 Formattin ity o f 00:00: g of this [place] 00 note Medical might be Branch different [...] Center s Corticos Propensi Active Other (See 2023-[address] [facility] teroids ty to Comments) 5-20 [facility] (Glucoco adverse 00:00: Medical rticoids reaction 00 Center ) s TETRAHYD Allergy Active 0 [facility] ROCANNAB 5-20 INOL 00:00: (THC) 00 CORTICOS Allergy Active Other 2022-0 [facility] TEROIDS 5-20 (GLUCOCO 00:00: RTICOIDS 00 [...] Active MO 2020-0 [facility] ne HCl 3-18 [place] 00[facility] Sulfa DA Active MO 2020-0 [facility] (Sulfona 3-18 [place] mide 00:00: Region Antibiot 00 l ics) [facility] codeine DA Active MO 2020-0 [facility] 3-18 [place] 00:00: [facility] 00 [facility] meperidi DA Active MO vomiting 2020-0 [facility] ne HCl chest 3-18 [place] tightness 00:00: [facility] 00 [facility] Sulfa DA Active MO rash chest 2020-0 [facility] (Sulfona tightness 3-18 [place] 00:00: Region Antibiot 00 l ics) [facility] Center codeine DA Active MO rash chest 2020-0 [facility] tightness 3-18 [place] 00:00: [facility] 00 [facility] Marijuan Propensi Active Anaphylaxis 2018-0 U [...] 0-25 ity of adverse 00:00: [place] reaction Medical s Branch Tramadol Propensi Active Nausea [...] DA Active MO [facility] ne HCl 8-26 [place] 00:[facility]: [facility] Sulfa DA Active MO [facility] (Sulfona 8-26 [place] mide 00:00: Regiona Antibiot 00 l ics) [facility] Center codeine DA Active MO [facility] 8-26 [place] 00:00: [facility] 00 [facility] meperidi DA Active MO vomiting [facility] ne HCl chest 8-26 [place] tightness 00:00: [facility] 00 [facility] Sulfa DA Active [place] rash chest [facility] (Sulfona tightness 8-26 [place] 00:00: Regiona Antibiot 00 l ics) [facility] Center codeine DA Active [place] rash chest [facility] tightness 8-26 [place] 00:[facility]: [facility] 00 [facility] Social History Social Habit Start Date Stop Date Quantity Comments Source History of tobacco Cigarette Smoker [facility] Sexual orientation Univer sity of [facility] History SDOH [facility]Med Medical [facility] History SDOH 2023-04-21 2023-04-[address] [facility] Transport Med 00:00:00 00:00:[address] [facility] 2023-04-21 2023-04-[address] [facility] Housing Unable to 00:00:00 00:00:00 Medical Center Pay History [facility] 2023-04-21 2023-04-[address] [facility] Housing Places 00:00:00 00:00:00 Medical Ce nter Lived History [facility] 2023-04-21 2023-04-[address] [facility] Housing Homeless 00:00:00 00:00:00 Medical Center Last Year Exposure to 2023-04-10 2023-04-[address] [facility] SARS-CoV-2 (event) 00:00:00 23:57:00 Medica Center History of Social 2023-03-27 2023-03-27 Univers ity of function 00:00:00 00:00:[address] [facility] Branch Alcohol intake 2023-03-26 2023-03-26 Current drinker Unive rsity of 00:00:00 00:00:[address] [facility] (finding) Branch Tobacco use and 2023-03-25 2023-03-25 Smokeless tobacco Un iversity of exposure 00:00:00 00:00:[address] [facility] Branch Cigarettes smoked 2023-03-25 2023-03-25 Univers ity of current (pack per 00:00:00 00:00:00 [facility] ed) - Reported Branch Tobacco Comment 2023-03-25 2023-03-25 Occasional Smoker Un iversity of 00:00:00 00:00:00 [place] [facility] History [facility] 2020-07-26 2020-07-26 2 University o f Alcohol Frequency 00:00:00 00:00:00 [facility] edical Branch History [facility] 2020-07-26 2020-07-26 2 University o f Alcohol Std Drinks 00:00:00 00:00:00 [place] [facility] History [facility] 2020-07-26 2020-07-26 99 University o f Alcohol Binge 00:00:00 00:00:00 [facility] al Branch Alcohol Comment 2018-01-03 2018-01-03 Social Drinker Unive rsity of 00:00:00 00:00:[address] [facility] Sex Ass[birth year] At [birth year] AVEL Ron 00:00:00 00:00:00 [facility] Center Smoking Status Start Date Stop Date Source Smokes tobacco daily 2023-03-25 00:00:00 [facility] Current some day smoker 2020-06-12 00:00:00 [facility] Medications Ordered Filled Start Stop Current Ordering Indication Dosage Frequency Signature Comments Components Source Medication Medication Date Date Medication? Clinician (SIG) Name Name ibuprofen Yes [id number] 600mg Take 1 Univers 600 mg 6-30 tablet by ity of tablet 00:00: mouth 3 00 (three) Medical times Branch daily with meals as needed for Pain (scale 4-6) or Pain (scale 1-3). ibuprofen Yes [id number] 600mg Take 1 Univers 600 mg 6-30 tablet by ity of tablet 00:00: mouth 3 00 (three) Medical times Branch daily with meals as needed for Pain (scale 4-6) or Pain (scale 1-3). HYDROcodone Yes [id number] 1{tbl} Take 1 Un gracy -acetaminop 6-14 tablet by ity of hen ([facility]) 00:00: mouth [place] 5-325 mg 00 every 6 Medical tablet (six) Branch hours as needed for Pain (scale 7-10). Indication s: acute pain HYDROcodone Yes [id number] 1{tbl} Take 1 Un gracy [...] 06-12 tablet by it y of hen ([facility]) 00:00: 00:[place] 5-325 mg [...] Amount: 1 mg. TiZANidine 2023-0 Yes 4mg Q.[id number] Take [address] [facility] (ZANAFLEX) 5-25 [id number] capsule (4 [facility] 4 MG 15:44: 3D mg total) Medical capsule 02 by mouth Center in the morning and 1 capsule (4 mg total) at noon and 1 capsule (4 mg total) in the evening. gabapentin 2023-0 Yes 300mg Q.[id number] Take [address] [facility] (NEURONTIN) 5-25 [id number] capsule [facility] 300 MG 15:44: 3D (300 [...] Amount: 1 mg. TiZANidine 2023-0 Yes 4mg Q.[id number] Take [address] [facility] (ZANAFLEX) 5-25 [id number] capsule (4 [facility] 4 MG 15:44: 3D mg total) Medical capsule 02 by mouth Center in the morning and 1 capsule (4 mg total) at noon and 1 capsule (4 mg total) in the evening. gabapentin 2023-0 Yes 300mg Q.[id number] Take [address] [facility] (NEURONTIN) 5-25 [id number] capsule [facility] 300 MG 15:44: 3D (300 [...] Amount: 1 mg. TiZANidine 2023-0 Yes 4mg Q.[id number] Take [address] [facility] (ZANAFLEX) 5-25 [id number] capsule (4 [facility] 4 MG 15:44: 3D mg total) Medical capsule 02 by mouth Center in the morning and 1 capsule (4 mg total) at noon and 1 capsule (4 mg total) in the evening. gabapentin 2023-0 Yes 300mg Q.[id number] Take [address] [facility] (NEURONTIN) 5-25 [id number] capsule [facility] 300 MG 15:44: 3D (300 [...] Amount: 1 mg. TiZANidine 2023-0 Yes 4mg Q.[id number] Take [address] [facility] (ZANAFLEX) 5-25 [id number] capsule (4 [facility] 4 MG 15:44: 3D mg total) Medical capsule 02 by mouth Center in the morning and 1 capsule (4 mg total) at noon and 1 capsule (4 mg total) in the evening. gabapentin 2023-0 Yes 300mg Q.[id number] Take [address] [facility] (NEURONTIN) 5-25 [id number] capsule [facility] 300 MG 15:44: 3D (300 [...] Amount: 1 mg. TiZANidine 2023-0 Yes 4mg Q.[id number] Take [address] [facility] (ZANAFLEX) 5-25 [id number] capsule (4 [facility] 4 MG 15:44: 3D mg total) Medical capsule 02 by mouth Center in the morning and 1 capsule (4 mg total) at noon and 1 capsule (4 mg total) in the evening. gabapentin 2023-0 Yes 300mg Q.[id number] Take [address] [facility] (NEURONTIN) 5-25 [id number] capsule [facility] 300 MG 15:44: 3D (300 [...] Amount: 1 mg. TiZANidine 2023-0 Yes 4mg Q.[id number] Take [address] [facility] (ZANAFLEX) 5-25 [id number] capsule (4 [facility] 4 MG 15:44: 3D mg total) Medical capsule 02 by mouth Center in the morning and 1 capsule (4 mg total) at noon and 1 capsule (4 mg total) in the evening. gabapentin 2023-0 Yes 300mg Q.[id number] Take [address] [facility] (NEURONTIN) 5-25 [id number] capsule [facility] 300 MG 15:44: 3D (300 [...] Amount: 1 mg. TiZANidine 2023-0 Yes 4mg Q.[id number] Take [address] [facility] (ZANAFLEX) 5-25 [id number] capsule (4 [facility] 4 MG 15:44: 3D mg total) Medical capsule 02 by mouth Center in the morning and 1 capsule (4 mg total) at noon and 1 capsule (4 mg total) in the evening. gabapentin 2023-0 Yes 300mg Q.[id number] Take [address] [facility] (NEURONTIN) 5-25 [id number] capsule [facility] 300 MG 15:44: 3D (300 [...] 600mg Take [address] [facility] (ADVIL,MOTR 5-25 -24 tablet [facility] IN) 600 MG 15:44: 00:00 [...] No 600mg Take [address] [facility] (ADVIL,MOTR 04-25-24 tablet [facility] IN) 600 MG 15:44: 00:00 [...] needed for Nausea. busPIRone 2023-0 Yes 5mg Q.[id number] Take [address] [facility] (BUSPAR) 5 5-24 [id number] tablet (5 [facility] MG tablet 15:44: 3D mg total) Med ical 47 by mouth Center in the morning and 1 tablet (5 mg total) at noon and 1 tablet (5 mg total) in the evening. busPIRone 2023-0 Yes 5mg Q.[id number] Take [address] [facility] (BUSPAR) 5 5-24 [id number] tablet (5 [facility] MG tablet 15:44: 3D mg total) Med ical 47 by mouth Center in the morning and 1 tablet (5 mg total) at noon and 1 tablet (5 mg total) in the evening. busPIRone 2023-0 Yes 5mg Q.[id number] Take [address] [facility] (BUSPAR) 5 5-24 [id number] tablet (5 [facility] MG tablet 15:44: 3D mg total) Med ical 47 by mouth Center in the morning and 1 tablet (5 mg total) at noon and 1 tablet (5 mg total) in the evening. busPIRone 2023-0 Yes 5mg Q.[id number] Take [address] [facility] [address] (BUSPAR) 5 5-24 [id number] tablet (5 [facility] MG tablet 15:44: 3D mg total) Med ical 47 by mouth Center in the morning and 1 tablet (5 mg total) at noon and 1 tablet (5 mg total) in the evening. busPIRone 2023-0 Yes 5mg Q.[id number] Take [address] [facility] (BUSPAR) 5 5-24 [id number] tablet (5 [facility] MG tablet 15:44: 3D mg total) Med ical 47 by mouth Center in the morning and 1 tablet (5 mg total) at noon and 1 tablet (5 mg total) in the evening. busPIRone 2023-0 Yes 5mg Q.[id number] Take [address] [facility] [address] (BUSPAR) 5 5-24 [id number] tablet (5 [facility] MG tablet 15:44: 3D mg total) Med ical 47 by mouth Center in the morning and 1 tablet (5 mg total) at noon and 1 tablet (5 mg total) in the evening. busPIRone 2023-0 Yes 5mg Q.[id number] Take [address] [facility] (BUSPAR) 5 5-24 [id number] tablet (5 [facility] MG tablet 15:44: 3D mg total) Med ical 47 by mouth Center in the morning and 1 tablet (5 mg total) at noon and 1 tablet (5 mg total) in the evening. HYDROcodone 2023-0 Yes 1{tbl} Take [address] -acetaminop 5-24 tablet by Martha castillo (NORCO 00:00: mouth Medica l 5-325) 00 every 6 Center 5-325 mg (six) per tablet hours as needed for Pain. Max Daily Amount: 4 tablets amoxicillin 2023-0 Yes 500mg Q.[id number] Take [address] [facility] (AMOXIL) 5-24 [id number] tablet Martha es 500 MG 00:00: 3D [...] Amount: 4 tablets amoxicillin 2023-0 Yes 500mg Q.[id number] Take [address] [facility] (AMOXIL) 5-24 [id number] tablet Martha es 500 MG 00:00: 3D [...] Amount: 4 tablets amoxicillin 2023-0 Yes 500mg Q.[id number] Take [address] [facility] (AMOXIL) 5-24 [id number] tablet Martha es 500 MG 00:00: 3D [...] Amount: 4 tablets amoxicillin 2023-0 Yes 500mg Q.[id number] Take [address] [facility] (AMOXIL) 5-24 [id number] tablet Martha es 500 MG 00:00: 3D [...] Amount: 4 tablets amoxicillin 2023-0 Yes 500mg Q.[id number] Take [address] [facility] (AMOXIL) 5-24 [id number] tablet Martha es 500 MG 00:00: 3D [...] Amount: 4 tablets amoxicillin 2023-0 Yes 500mg Q.[id number] Take [address] [facility] (AMOXIL) 5-24 [id number] tablet Martha es 500 MG 00:00: 3D [...] Amount: 4 tablets amoxicillin 2022-0 Yes 500mg Q.[id number] Take [address] [facility] (AMOXIL) 5-24 [id number] tablet Martha es 500 MG 00:00: 3D [...] by mouth Center in the morning. promethazin 3-0 Yes 12.5mg Take [address] [facility] 5-24 tablet [facility] (PHENERGAN) 00:00: (12.5 mg Me dical 12.5 MG 00 total) by Center tablet mouth every 6 (six) hours as needed for Nausea. levoFLOXaci 3-0 2023- No 500mg QD Take 1 [facility] [...] for 5 days. ibuprofen 2023-0 2023- No [id number] 600mg Take 1 Univers 600 mg 5-08 08-07 tablet by ity of tablet 00:00: 04:59 mouth 3 [place] 00 :00 (three) Medical times Branch daily with meals as needed for Pain (scale 4-6) or Pain (scale 1-3) for up to 90 days. ibuprofen 2023-0 2023- No [id number] 600mg Take 1 Univers 600 mg 5-08 08-07 tablet by ity of tablet 00:00: 04:59 mouth 3 [place] 00 :00 (three) Medical times Branch daily with meals as needed for Pain (scale 4-6) or Pain (scale 1-3) for up to 90 days. ibuprofen 2023-0 2023- No [id number] 600mg Take 1 Univers 600 mg 5-08 08-07 tablet by ity of tablet 00:00: 04:59 mouth 3 [place] 00 :00 (three) Medical times Branch daily with meals as needed for Pain (scale 4-6) or Pain (scale 1-3) for up to 90 days. ibuprofen 2023-0 2023- No [id number] 600mg Take 1 Univers 600 mg 5-08 08-07 tablet by ity of tablet 00:00: 04:59 mouth 3 [place] 00 :00 (three) Medical times Branch daily with meals as needed for Pain (scale 4-6) or Pain (scale 1-3) for up to 90 days. ibuprofen 2023-0 2023- No [id number] 600mg Take 1 Univers 600 mg 5-08 08-07 tablet by ity of tablet 00:00: 04:59 mouth 3 [place] 00 :00 (three) Medical times Branch daily with meals as needed for Pain (scale 4-6) or Pain (scale 1-3) for up to 90 days. ibuprofen 2023-0 2023- No [id number] 600mg Take 1 Univers 600 mg 5-08 08-07 tablet by ity of tablet 00:00: 04:59 mouth 3 [place] 00 :00 (three) Medical times Branch daily with meals as needed for Pain (scale 4-6) or Pain (scale 1-3) for up to 90 days. ibuprofen 2023-0 2023- No [id number] 600mg Take 1 Univers 600 mg 5-08 08-07 tablet by ity of tablet 00:00: 04:59 mouth 3 [place] 00 :00 (three) Medical times Branch daily with meals as needed for Pain (scale 4-6) or Pain (scale 1-3) for up to 90 days. ibuprofen 2023-0 2023- No [id number] 600mg Take 1 Univers 600 mg 5-08 08-07 tablet by ity of tablet 00:00: 04:59 mouth 3 00 :00 (three) Medical times Branch daily with meals as needed for Pain (scale 4-6) or Pain (scale 1-3) for up to 90 days. ibuprofen 2023-0 2023- No [id number] 600mg Take 1 Univers 600 mg 5-08 08-07 tablet by ity of tablet 00:00: 04:59 mouth 3 [place] 00 :00 (three) Medical times Branch daily with meals as needed for Pain (scale 4-6) or Pain (scale 1-3) for up to 90 days. ibuprofen 2023-0 2023- No [id number] 600mg Take 1 Univers 600 mg 5-08 08-07 tablet by ity of tablet 00:00: 04:59 mouth 3 [place] 00 :00 (three) Medical times Branch daily with meals as needed for Pain (scale 4-6) or Pain (scale 1-3) for up to 90 days. ibuprofen 2023-0 2023- No [id number] 600mg Take 1 [facility] 600 mg 5-08 08-07 tablet by ity of tablet 00:00: 04:59 mouth 3 [place] 00 :00 (three) Medical times Branch daily with meals as needed for Pain (scale 4-6) or Pain (scale 1-3) for up to 90 days. ibuprofen 2023-0 2023- No [id number] 600mg Take 1 [facility] 600 mg 5-08 08-07 tablet by ity of tablet 00:00: 04:59 mouth 3 [place] 00 :00 (three) Medical times Branch daily with meals as needed for Pain (scale 4-6) or Pain (scale 1-3) for up to 90 days. ibuprofen 202-0 2023- No [id number] 600mg Take 1 Univers 600 mg 5-08 08-07 tablet by ity of tablet 00:00: 04:59 mouth 3 [place] 00 :00 (three) Medical times Branch daily with meals as needed for Pain (scale 4-6) or Pain (scale 1-3) for up to 90 days. ibuprofen 2023-0 3- No [id number] 600mg Take 1 Univers 600 mg 5-08 06-27 tablet by ity of tablet 00:00: 00:00 mouth 3 [place] 00 :00 (three) Medical times Branch daily with meals as needed for Pain (scale 4-6) or Pain (scale 1-3) for up to 90 days. HYDROcodone 2022-2022- No [id number] 1{tbl} Take 1 [...] 05-16 tablet by it y of hen ([facility]) 00:00: 04:59 mouth [place] 5-325 mg 00 :00 every 6 Medical tablet (six) Branch hours as needed for Pain (scale 7-10) for up to 7 days. Indication s: acute pain HYDROcodone 2022-0 2022- No 4647 1{tbl} Take 1 U nivers -acetaminop 5-08 05-16 tablet by it y of hen ([facility]) 00:00: 04:59 mouth [place] 5-325 mg 00 :00 every 6 Medical tablet (six) Branch hours as needed for Pain (scale 7-10) for up to 7 days. Indication s: acute pain HYDROcodone 2022-0 2022- No 4647 1{tbl} Take 1 U nivers -acetaminop 5-08 05-16 tablet by it y of hen ([facility]) 00:00: 04:59 mouth [place] 5-325 mg [...] Medi dorothy Starting Branch on 03/27/23 at 1115, Until 03/27/23 at 1253, Routine, Intra-op lactated 2022- No [...] No 1.5mg 1.5 mg, U nivers transdermal 03-27- Topical, ity of (TRANSDERM- 14:23: 17:52 Administer [...] 05-02 tablet by it y of hen ([facility]) 00:00: 04:59 mouth 2 [place] 5-325 mg 00 :00 (two) Medical tablet times Branch daily as needed for Pain (scale 7-10) for up to 7 days. Indication s: acute pain HYDROcodone 2022-0 2022- No 4647 1{tbl} Take 1 U nivers -acetaminop 4-24 05-02 tablet by it y of hen ([facility]) 00:00: 04:59 mouth 2 [place] 5-325 mg 00 :00 (two) Medical tablet times Branch daily as needed for Pain (scale 7-10) for up to 7 days. Indication s: acute pain HYDROcodone 2022-0 2022- No 4647 1{tbl} Take 1 U nivers -acetaminop 4-24 05-02 tablet by it y of hen ([facility]) 00:00: 04:59 mouth 2 [place] 5-325 mg 00 :00 (two) Medical tablet times Branch daily as needed for Pain (scale 7-10) for up to 7 days. Indication s: acute pain HYDROcodone 2022-0 2022- No 4647 1{tbl} Take 1 U nivers -acetaminop 4-24 05-02 tablet by it y of hen ([facility]) 00:00: 04:59 mouth 2 [place] 5-325 mg 00 :00 (two) Medical tablet times Branch daily as needed for Pain (scale 7-10) for up to 7 days. Indication s: acute pain HYDROcodone 2022-0 2022- No 4647 1{tbl} Take 1 U nivers -acetaminop 4-24 05-02 tablet by it y of hen ([facility]) 00:00: 04:59 mouth 2 [place] 5-325 mg 00 :00 (two) Medical tablet times Branch daily as needed for Pain (scale 7-10) for up to 7 days. Indication s: acute pain HYDROcodone 2022-0 2022- No 4647 1{tbl} Take 1 U nivers -acetaminop 4-24 05-02 tablet by it y of hen ([facility]) 00:00: 04:59 mouth 2 [place] 5-325 mg 00 :00 (two) Medical tablet times Branch daily as needed for Pain (scale 7-10) for up to 7 days. Indication s: acute pain HYDROcodone 2023-0 2022- No 4647 1{tbl} Take 1 U nivers -acetaminop 4-24 05-02 tablet by it y of hen ([facility]) 00:00: 04:59 mouth 2 [place] 5-325 mg 00 :00 (two) Medical tablet times Branch daily as needed for Pain (scale 7-10) for up to 7 days. Indication s: acute pain HYDROcodone 2022-0 2022- No 4647 1{tbl} Take 1 U nivers -acetaminop 4-24 05-02 tablet by it y of hen ([facility]) 00:00: 04:59 mouth 2 [place] 5-325 mg 00 :00 (two) Medical tablet times Branch daily as needed for Pain (scale 7-10) for up to 7 days. Indication s: acute pain HYDROcodone 2022-0 2022- No 4647 1{tbl} Take 1 U nivers -acetaminop 4-24 05-02 tablet by it y of hen ([facility]) 00:00: 04:59 mouth 2 [place] 5-325 mg 00 :00 (two) Medical tablet times Branch daily as needed for Pain (scale 7-10) for up to 7 days. Indication s: acute pain HYDROcodone 3-0 2022- No 4647 1{tbl} Take 1 U nivers -acetaminop 4-24 05-02 tablet by it y of hen ([facility]) 00:00: 04:59 mouth 2 [place] 5-325 mg 00 :00 (two) Medical tablet times Branch daily as needed for Pain (scale 7-10) for up to 7 days. Indication s: acute pain HYDROcodone 2023-0 2022- No 4647 1{tbl} Take 1 U nivers -acetaminop 4-24 05-02 tablet by it y of hen ([facility]) 00:00: 04:59 mouth 2 [place] 5-325 [...] Medical EVERY Branch EIGHT HOURS NEEDED. cyclobenzap Yes TAKE ONE Un gracy rine 10 mg -18 (1) ity of tablet 00:00: TABLET(S) [place] 00 BY MOUTH Medical EVERY Branch EIGHT HOURS NEEDED. ibuprofen 2022- No TAKE ONE Uni vers 600 mg -18 03-27 (1) ity of tablet 00:00: 00:00 TABLET(S) [place] 00 :00 BY MOUTH Medical EVERY Branch EIGHT HOURS WITH FOOD NEEDED FOR PAIN. ibuprofen 2022- No TAKE ONE Uni vers 600 mg -18 03-27 (1) ity of tablet 00:00: 00:00 TABLET(S) [place] 00 :00 BY MOUTH Medical EVERY Branch EIGHT HOURS WITH FOOD NEEDED FOR PAIN. ibuprofen 2022- No TAKE ONE Uni vers 600 mg -18 03-27 (1) ity of tablet 00:00: 00:00 TABLET(S) [place] 00 :00 BY MOUTH Medical EVERY Branch EIGHT HOURS WITH FOOD NEEDED FOR PAIN. HYDROcodone No 1{tbl} 1 tablet, Univers -acetaminop 03-16-15 Oral, ity of hen ([facility] 16:15: 15:34 ONCE, 1 [place] as 5) 5-325 mg 00 :00 dose, On Medi dorothy tablet 1 Sat Branch tablet 03/16/23 at 1115, MATTHEW proMETHazin 2022- No 25mg 25 mg, Uni vers e 03-1615 Intramuscu ity of (PHENERGAN) 15:15: 15:33 lar, ONCE, [place] injection 00 :00 1 dose, On Medi dorothy 25 mg Sat Branch 03/16/23 at 1015, MATTHEW tiZANidine Yes [id number] 4mg Take 1 Univers 4 mg tablet 4-15 tablet by ity of 00:00: mouth [place] 00 every 6 Medical (six) Branch hours as needed for Pain (scale 4-6) for up to 20 doses. diclofenac 2022- Yes [id number] 50mg Take 1 Univers 50 mg 4-15 tablet by ity of tablet 00:00: mouth in [place] 00 the Medical morning Branch and 1 tablet in the evening. tiZANidine 0 Yes [id number] 4mg Take 1 Univers 4 mg tablet 4-15 tablet by ity of 00:00: mouth [place] 00 every 6 Medical (six) Branch hours as needed for Pain (scale 4-6) for up to 20 doses. diclofenac 2023-0 Yes [id number] 50mg Take 1 Univers 50 mg 4-15 tablet by ity of tablet 00:00: mouth in [place] [place] 00 the Medical morning Branch and 1 tablet in the evening. tiZANidine 2023-0 Yes [id number] 4mg Take 1 [facility] 4 mg tablet 4-15 tablet by ity of 00:00: mouth [place] 00 every 6 Medical (six) Branch hours as needed for Pain (scale 4-6) for up to 20 doses. diclofenac 2023-0 Yes [id number] 50mg Take 1 [facility] 50 mg 4-15 tablet by ity of tablet 00:00: mouth in [place] 00 the Medical morning Branch and 1 tablet in the evening. tiZANidine 2023-0 Yes [id number] 4mg Take 1 [facility] 4 mg tablet 4-15 tablet by ity of 00:00: mouth [place] 00 every 6 Medical (six) Branch hours as needed for Pain (scale 4-6) for up to 20 doses. diclofenac 2023-0 Yes [id number] 50mg Take 1 [facility] 50 mg 4-15 tablet by ity of tablet 00:00: mouth in [place] 00 the Medical morning Branch and 1 tablet in the evening. tiZANidine 2023-0 Yes [id number] 4mg Take 1 [facility] 4 mg tablet 4-15 tablet by ity of 00:00: mouth [place] 00 every 6 Medical (six) Branch hours as needed for Pain (scale 4-6) for up to 20 doses. diclofenac 2023-0 Yes [id number] 50mg Take 1 [facility] 50 mg 4-15 tablet by ity of tablet 00:00: mouth in [place] 00 the Medical morning Branch and 1 tablet in the evening. tiZANidine 2023-0 Yes [id number] 4mg Take 1 [facility] 4 mg tablet 4-15 tablet by ity of 00:00: mouth [place] 00 every 6 Medical (six) Branch hours as needed for Pain (scale 4-6) for up to 20 doses. diclofenac 2023-0 Yes [id number] 50mg Take 1 [facility] 50 mg 4-15 tablet by ity of tablet 00:00: mouth in [place] 00 the Medical morning Branch and 1 tablet in the evening. tiZANidine 2023-0 Yes [id number] 4mg Take 1 [facility] 4 mg tablet 4-15 tablet by ity of 00:00: mouth [place] 00 every 6 Medical (six) Branch hours as needed for Pain (scale 4-6) for up to 20 doses. diclofenac 2023-0 Yes [id number] 50mg Take 1 [facility] 50 mg 4-15 tablet by ity of tablet 00:00: mouth in [place] 00 the Medical morning Branch and 1 tablet in the evening. tiZANidine 2023-0 Yes [id number] 4mg Take 1 [facility] 4 mg tablet 4-15 tablet by ity of 00:00: mouth [place] 00 every 6 Medical (six) Branch hours as needed for Pain (scale 4-6) for up to 20 doses. diclofenac 2023-0 Yes [id number] 50mg Take 1 [facility] 50 mg 4-15 tablet by ity of tablet 00:00: mouth in [place] 00 the Medical morning Branch and 1 tablet in the evening. tiZANidine 2023-0 Yes [id number] 4mg Take 1 [facility] 4 mg tablet 4-15 tablet by ity of 00:00: mouth [place] 00 every 6 Medical (six) Branch hours as needed for Pain (scale 4-6) for up to 20 doses. diclofenac 2023-0 Yes [id number] 50mg Take 1 [facility] 50 mg 4-15 tablet by ity of tablet 00:00: mouth in [place] 00 the Medical morning Branch and 1 tablet in the evening. tiZANidine 2023-0 Yes [id number] 4mg Take 1 [facility] 4 mg tablet 4-15 tablet by ity of 00:00: mouth [place] 00 every 6 Medical (six) Branch hours as needed for Pain (scale 4-6) for up to 20 doses. diclofenac 2023-0 Yes [id number] 50mg Take 1 [facility] 50 mg 4-15 tablet by ity of tablet 00:00: mouth in [place] 00 the Medical morning Branch and 1 tablet in the evening. tiZANidine 2023-0 Yes [id number] 4mg Take 1 [facility] 4 mg tablet 4-15 tablet by ity of 00:00: mouth [place] 00 every 6 Medical (six) Branch hours as needed for Pain (scale 4-6) for up to 20 doses. tiZANidine 2023-0 Yes [id number] 4mg Take 1 [facility] 4 mg tablet 4-15 tablet by ity of 00:00: mouth [place] 00 every 6 Medical (six) Branch hours as needed for Pain (scale 4-6) for up to 20 doses. tiZANidine 2022-0 Yes [id number] 4mg Take 1 [facility] 4 mg tablet 4-15 tablet by ity of 00:00: mouth [place] 00 every 6 Medical (six) Branch hours as needed for Pain (scale 4-6) for up to 20 doses. tiZANidine 2022-0 Yes [id number] 4mg Take 1 [facility] 4 mg tablet 4-15 tablet by ity of 00:00: mouth [place] 00 every 6 Medical (six) Branch hours as needed for Pain (scale 4-6) for up to 20 doses. tiZANidine 2022-0 Yes [id number] 4mg Take 1 [facility] 4 mg tablet 4-15 tablet by ity of 00:00: mouth [place] 00 every 6 Medical (six) Branch hours as needed for Pain (scale 4-6) for up to 20 doses. tiZANidine 2022-0 Yes [id number] 4mg Take 1 [facility] 4 mg tablet 4-15 tablet by ity of 00:00: mouth [place] 00 every 6 Medical (six) Branch hours as needed for Pain (scale 4-6) for up to 20 doses. tiZANidine 2022-0 Yes [id number] 4mg Take 1 [facility] 4 mg tablet 4-15 tablet by ity of 00:00: mouth [place] 00 every 6 Medical (six) Branch hours as needed for Pain (scale 4-6) for up to 20 doses. tiZANidine 2022-0 Yes [id number] 4mg Take 1 [facility] 4 mg tablet 4-15 tablet by ity of 00:00: mouth [place] 00 every 6 Medical (six) Branch hours as needed for Pain (scale 4-6) for up to 20 doses. tiZANidine 3-0 Yes [id number] 4mg Take 1 [facility] 4 mg tablet 4-15 tablet by ity of 00:00: mouth [place] 00 every 6 Medical (six) Branch hours as needed for Pain (scale 4-6) for up to 20 doses. tiZANidine 2022-0 Yes [id number] 4mg Take 1 [facility] 4 mg tablet 4-15 tablet by ity of 00:00: mouth [place] 00 every 6 Medical (six) Branch hours as needed for Pain (scale 4-6) for up to 20 doses. tiZANidine 2022-0 Yes [id number] 4mg Take 1 [facility] 4 mg tablet 4-15 tablet by ity of 00:00: mouth [place] 00 every 6 Medical (six) Branch hours as needed for Pain (scale 4-6) for up to 20 doses. tiZANidine 2022-0 Yes [id number] 4mg Take 1 [facility] 4 mg tablet 4-15 tablet by ity of 00:00: mouth [place] 00 every 6 Medical (six) Branch hours as needed for Pain (scale 4-6) for up to 20 doses. tiZANidine 2022-0 Yes [id number] 4mg Take 1 [facility] 4 mg tablet 4-15 tablet by ity of 00:00: mouth [place] 00 every 6 Medical (six) Branch hours as needed for Pain (scale 4-6) for up to 20 doses. tiZANidine 2022-0 Yes [id number] 4mg Take 1 [facility] 4 mg tablet 4-15 tablet by ity of 00:00: mouth [place] 00 every 6 Medical (six) Branch hours as needed for Pain (scale 4-6) for up to 20 doses. tiZANidine 2022-0 Yes [id number] 4mg Take 1 [facility] 4 mg tablet 4-15 tablet by ity of 00:00: mouth [place] 00 every 6 Medical (six) Branch hours as needed for Pain (scale 4-6) for up to 20 doses. tiZANidine 2022-0 Yes [id number] 4mg Take 1 [facility] 4 mg tablet 4-15 tablet by ity of 00:00: mouth [place] 00 every 6 Medical (six) Branch hours as needed for Pain (scale 4-6) for up to 20 doses. tiZANidine 2022-0 Yes [id number] 4mg Take 1 [facility] 4 mg tablet 4-15 tablet by ity of 00:00: mouth [place] 00 every 6 Medical (six) Branch hours as needed for Pain (scale 4-6) for up to 20 doses. tiZANidine 3-0 Yes [id number] 4mg Take 1 [facility] 4 mg tablet 4-15 tablet by ity of 00:00: mouth [place] 00 every 6 Medical (six) Branch hours as needed for Pain (scale 4-6) for up to 20 doses. tiZANidine 3-0 Yes [id number] 4mg Take 1 [facility] 4 mg tablet 4-15 tablet by ity of 00:00: mouth [place] 00 every 6 Medical (six) Branch hours as needed for Pain (scale 4-6) for up to 20 doses. tiZANidine 3-0 Yes [id number] 4mg Take 1 [facility] 4 mg tablet 4-15 tablet by ity of 00:00: mouth [place] every 6 Medical (six) Branch hours as needed for Pain (scale 4-6) for up to 20 doses. tiZANidine 2022-0 Yes [id number] 4mg Take 1 [facility] 4 mg tablet 4-15 tablet by ity of 00:00: mouth [place] every 6 Medical (six) Branch hours as needed for Pain (scale 4-6) for up to 20 doses. tiZANidine 2022-0 Yes [id number] 4mg Take 1 [facility] 4 mg tablet 4-15 tablet by ity of 00:00: mouth [place] every 6 Medical (six) Branch hours as needed for Pain (scale 4-6) for up to 20 doses. diclofenac 2022-0 3- No [id number] 50mg Take 1 [facility] 50 mg 4-15 04-25 tablet by ity of tablet 00:00: 00:00 mouth in [place] 00 :00 the Medical morning Branch and 1 tablet in the evening. diclofenac 3-0 3- No [id number] 50mg Take 1 [facility] 50 mg 4-15 04-25 tablet by ity of tablet 00:00: 00:00 mouth in [place] 00 :00 the Medical morning Branch and 1 tablet in the evening. diclofenac 3-0 3- No [id number] 50mg Take 1 [facility] 50 mg 4-15 04-25 tablet by ity of tablet 00:00: 00:00 mouth in [place] 00 :00 the Medical morning Branch and 1 tablet in the evening. gabapentin 3-0 Yes TAKE ONE [facility] vers 300 mg 4-05 (1) ity of capsule 00:00: [place] 00 BY [facility] EIGHT HOURS. gabapentin 2023-0 Yes TAKE ONE [...] [place] 00 BY MOUTH Medical EVERY [place] EIGHT HOURS. diclofenac 2023-0 Yes 75mg Take 1 Unive rs 75 mg EC 4-02 tablet by ity of tablet 00:00: mouth in [place] 00 the Medical morning Branch and 1 tablet in the evening. diclofenac 2023-0 2023- No 75mg Take 1 Univ ers 75 mg EC -01 05-26 tablet by ity o f tablet 00:00: 00:00 mouth in [place] 00 :00 the Medical morning Branch and 1 tablet in the evening. diclofenac 2023-0 2023- No 75mg Take 1 [facility] ers 75 mg EC 4-01 05-26 tablet by ity o f tablet 00:00: 00:00 mouth in [place] 00 :00 the Medical morning Branch and 1 tablet in the evening. diclofenac 2023-0 2023- No 75mg Take 1 [facility] ers 75 mg EC 4-01 05-26 tablet by ity o f tablet 00:00: 00:00 mouth in [place] 00 :00 the Medical morning Branch and 1 tablet in the evening. clonazePAM 2023-0 Yes .5mg Take 1 Unive rs 0.5 mg 3-29 tablet by ity of tablet 00:00: mouth in [place] 00 the Medical morning Branch and 1 tablet in the evening. clonazePAM 2023-0 Yes .5mg Take 1 [facility] rs 0.5 mg 3-29 tablet by ity of tablet 00:00: mouth in [place] 00 the Medical morning Branch and 1 tablet in the evening. clonazePAM 2023-0 Yes .5mg Take 1 [facility] rs 0.5 mg 3-29 tablet by ity of tablet 00:00: mouth in [place] [address] the Medical morning Branch and 1 tablet in the evening. clonazePAM 2023-0 Yes .5mg Take 1 Unive rs 0.5 mg 3-29 tablet by ity of tablet 00:00: mouth in [place] [address] the Medical morning Branch and 1 tablet in the evening. clonazePAM 2023-0 Yes .5mg Take 1 [facility] rs 0.5 mg 3-29 tablet by ity of tablet 00:00: mouth in [place] [address] the Medical morning Branch and 1 tablet in the evening. clonazePAM 2023-0 Yes .5mg Take 1 [facility] rs 0.5 mg 3-29 tablet by ity of tablet 00:00: mouth in [place] [address] the Medical morning Branch and 1 tablet in the evening. clonazePAM 2023-0 Yes .5mg Take 1 Un[facility] rs 0.5 mg 3-29 tablet by ity of tablet 00:00: mouth in [place] [address] the Medical morning Branch and 1 tablet in the evening. clonazePAM 2023-0 Yes .5mg Take 1 Un[facility] rs 0.5 mg 3-29 tablet by ity of tablet 00:00: mouth in [place] [address] the Medical morning Branch and 1 tablet in the evening. clonazePAM 2023-0 Yes .5mg Take 1 [facility] rs 0.5 mg 3-29 tablet by ity of tablet 00:00: mouth in [place] [address] the Medical morning Branch and 1 tablet in the evening. clonazePAM 2023-0 Yes .5mg Take 1 Unive rs 0.5 mg 3-29 tablet by ity of tablet 00:00: mouth in [place] [address] the Medical morning Branch and 1 tablet in the evening. clonazePAM 2023-0 Yes .5mg Take 1 Unive rs 0.5 mg 3-29 tablet by ity of tablet 00:00: mouth in [place] [address] the Medical morning Branch and 1 tablet in the evening. clonazePAM 2023-0 Yes .5mg Take 1 Unive rs 0.5 mg 3-29 tablet by ity of tablet 00:00: mouth in [place] [address] the Medical morning Branch and 1 tablet in the evening. clonazePAM 2023-0 Yes .5mg Take 1 [facility] rs 0.5 mg 3-29 tablet by ity of tablet 00:00: mouth in [place] [address] the Medical morning Branch and 1 tablet in the evening. clonazePAM 2023-0 Yes .5mg Take 1 [facility] rs 0.5 mg 3-29 tablet by ity of tablet 00:00: mouth in [place] [address] the Medical morning Branch and 1 tablet in the evening. clonazePAM 2023-0 Yes .5mg Take 1 Un[facility] rs 0.5 mg 3-29 tablet by ity of tablet 00:00: mouth in [place] [address] the Medical morning Branch and 1 tablet in the evening. clonazePAM 2023-0 Yes .5mg Take 1 [facility] rs 0.5 mg 3-29 tablet by ity of tablet 00:00: mouth in [place] [address] the Medical morning Branch and 1 tablet in the evening. clonazePAM 2023-0 Yes .5mg Take 1 Unive rs 0.5 mg 3-29 tablet by ity of tablet 00:00: mouth in [place] [address] the Medical morning Branch and 1 tablet in the evening. clonazePAM 2023-0 Yes .5mg Take 1 Unive rs 0.5 mg 3-29 tablet by ity of tablet 00:00: mouth in [place] [address] the Medical morning Branch and 1 tablet in the evening. clonazePAM 2023-0 Yes .5mg Take 1 Unive rs 0.5 mg 3-29 tablet by ity of tablet 00:00: mouth in [place] [address] the Medical morning Branch and 1 tablet in the evening. clonazePAM 2023-0 Yes .5mg Take 1 Unive rs 0.5 mg 3-29 tablet by ity of tablet 00:00: mouth in [place] [address] the Medical morning Branch and 1 tablet in the evening. clonazePAM 2023-0 Yes .5mg Take 1 Unive rs 0.5 mg 3-29 tablet by ity of tablet 00:00: mouth in [place] [address] the Medical morning Branch and 1 tablet [...] by ity of tablet 00:00: mouth in [place] the Medical morning Branch and 1 tablet [...] by ity of tablet 00:00: mouth in [place] the Medical morning Branch and 1 tablet in the evening. proMETHazin 2023-0 Yes TAKE ONE Un gracy e 12.5 mg 3-16 (1) ity of tablet 00:00: TABLET(S) [place] 00 BY MOUTH Medical EVERY Branch EIGHT HOURS NEEDED. diphenoxyla 2023-0 Yes TAKE ONE Un gracy te-atropine 3-16 (1) ity of 2.5-0.025 00:00: TABLET(S) [place] mg tablet 00 BY MOUTH Medica l THREE Branch TIMES A DAY NEEDED. busPIRone 2023-0 Yes 10mg Take 1 Univer s 10 mg 3-16 tablet by ity of tablet 00:00: mouth in [place] the Medical morning Branch and 1 tablet in the evening. proMETHazin 2023-0 Yes TAKE ONE Un gracy e 12.5 mg 3-16 (1) ity of tablet 00:00: TABLET(S) [place] 00 BY MOUTH Medical EVERY Branch EIGHT HOURS NEEDED. diphenoxyla 2023-0 Yes TAKE ONE Un gracy te-atropine 3-16 (1) ity of 2.5-0.025 00:00: TABLET(S) [place] tablet 00 BY MOUTH Medica l THREE Branch TIMES A DAY NEEDED. busPIRone 2023-0 Yes 10mg Take 1 Univer s 10 mg 3-16 tablet by ity of tablet 00:00: mouth in [place] 00 the Medical morning Branch and 1 [...] by ity of tablet 00:00: mouth in [place] 00 the Medical morning Branch and 1 tablet in the evening. proMETHazin 2023-0 Yes TAKE ONE Un gracy e 12.5 mg 3-16 (1) ity of tablet 00:00: TABLET(S) [place] BY MOUTH Medical EVERY Branch EIGHT HOURS NEEDED. diphenoxyla 2023-0 Yes TAKE ONE Un gracy te-atropine 3-16 (1) ity of 2.5-0.025 00:00: TABLET(S) [place] mg tablet 00 BY MOUTH Medica l THREE Branch TIMES A DAY NEEDED. busPIRone 2023-0 Yes 10mg Take 1 Univer s 10 mg 3-16 tablet by ity of tablet 00:00: mouth in [place] 00 the Medical morning Branch and 1 [...] by ity of tablet 00:00: mouth in [place] 00 the Medical morning Branch and 1 [...] by ity of tablet 00:00: mouth in [place] 00 the Medical morning Branch and 1 [...] by ity of tablet 00:00: mouth in [place] 00 the Medical morning Branch and 1 [...] by ity of tablet 00:00: mouth in [place] 00 the Medical morning Branch and 1 tablet in the evening. proMETHazin 2023-0 Yes TAKE ONE Un gracy e 12.5 mg 3-16 (1) ity of tablet 00:00: TABLET(S) [place] 00 BY MOUTH Medical EVERY [place] EIGHT HOURS NEEDED. diphenoxyla 2023-0 Yes TAKE ONE Un gracy te-atropine 3-16 (1) ity of 2.5-0.025 00:00: TABLET(S) [place] mg tablet 00 BY MOUTH Medica l THREE Branch TIMES A DAY NEEDED. busPIRone 2023-0 Yes 10mg Take 1 Univer s 10 mg 3-16 tablet by ity of tablet 00:00: mouth in [place] 00 the Medical morning Branch and 1 tablet in the evening. proMETHazin 2023-0 Yes TAKE ONE Un gracy e 12.5 mg 3-16 (1) ity of tablet 00:00: TABLET(S) [place] 00 BY MOUTH Medical EVERY [place] EIGHT HOURS NEEDED. diphenoxyla 2023-0 Yes TAKE ONE Un gracy te-atropine 3-16 (1) ity of 2.5-0.025 00:00: TABLET(S) [place] mg tablet 00 BY MOUTH Medica l THREE Branch TIMES A DAY NEEDED. busPIRone 2023-0 Yes 10mg Take 1 Univer s 10 mg 3-16 tablet by ity of tablet 00:00: mouth in [place] 00 the Medical morning Branch and 1 tablet in the evening. proMETHazin 2023-0 Yes TAKE ONE Un gracy e 12.5 mg 3-16 (1) ity of tablet 00:00: TABLET(S) [place] 00 BY MOUTH Medical EVERY Branch EIGHT HOURS NEEDED. diphenoxyla 2023-0 Yes TAKE ONE Un gracy te-atropine 3-16 (1) ity of 2.5-0.025 00:00: TABLET(S) [place] mg tablet 00 BY MOUTH Medica l THREE Branch TIMES A DAY NEEDED. busPIRone 2023-0 Yes 10mg Take 1 Univer s 10 mg 3-16 tablet by ity of tablet 00:00: mouth in [place] 00 the Medical morning Branch and 1 [...] by ity of tablet 00:00: mouth in [place] 00 the Medical morning Branch and 1 [...] by ity of tablet 00:00: mouth in [place] the Medical morning Branch and 1 tablet [...] by ity of tablet 00:00: mouth in [place] the Medical morning Branch and 1 tablet [...] by ity of tablet 00:00: mouth in [place] 00 the Medical morning Branch and 1 [...] by ity of tablet 00:00: mouth in [place] 00 the Medical morning Branch and 1 [...] by ity of tablet 00:00: mouth in [place] 00 the Medical morning Branch and 1 [...] by ity of tablet 00:00: mouth in [place] 00 the Medical morning Branch and 1 tablet in the evening. proMETHazin Yes TAKE ONE Un gracy e 12.5 mg 3-16 (1) ity of tablet 00:00: TABLET(S) [place] 00 BY MOUTH Medical EVERY Branch EIGHT HOURS NEEDED. diphenoxyla Yes TAKE ONE Un gracy te-atropine 3-16 (1) ity of 2.5-0.025 00:00: TABLET(S) [place] mg tablet 00 BY MOUTH Medica l THREE Branch TIMES A DAY NEEDED. busPIRone 0 Yes 10mg Take 1 Univer s 10 mg 3-16 tablet by ity of tablet 00:00: mouth in [place] 00 the Medical morning Branch and 1 [...] mouth Center daily. busPIRone 2020-12 Yes 5mg [id number] Take [address] [facility] ([facility]) 5 2-18 [id number] by mouth 3 [facility] tablet 15:41: 3D (three) Medic al 03 times Center daily. busPIRone 2020-12 Yes 5mg Q.[id number] Take [address] [facility] ([facility]) 5 2-18 [id number] by mouth 3 [facility] tablet 15:41: 3D (three) Medic al 03 times Center daily. busPIRone 2020-12 Yes 5mg Q.[id number] Take [address] [facility] ([facility]) 5 2-18 [id number] by mouth 3 [facility] tablet 15:41: 3D (three) Medic al 03 times Center daily. busPIRone 2020-12 Yes 5mg Q.[id number] Take [address] [facility] ([facility]) 5 2-18 [id number] by mouth 3 [facility] tablet 15:41: [...] 8 (eight) hours as needed for Nausea. HYDROcodone 2020-12 Yes 1{tbl} Take [address] [facility] [address] -acetaminop 2-18 tablet by Martha es hen (NORCO 00:00: mouth Medica l 5-325) 00 every 6 Center 5-325 mg (six) per tablet hours as needed for Pain. Max Daily Amount: 4 tablets oxybutynin 2020-12 Yes 5mg Take 1 [facility] -acetaminop 2-18 05-24 tablet by [facility] ([facility]CO 00:00: 00:00 mouth Medic al [...] 600mg 600 mg, Uni vers (IBU) 1-25 -25 Oral, ity of tablet 600 04:45: 03:53 ONCE, 1 [place] mg 00 :00 dose, [facility] 12[facility]20 at [place] 2245, MATTHEW ibuprofen No 600mg 600 mg, Uni vers (IBU) 12-26 Oral, ity of tablet 600 00:30: 12:29 ONCE, 1 [place] mg 00 :00 dose, [facility] 12/25[facility]20 at Branch 1830, MATTHEW metroNIDAZO 2020- No [id number] 2000mg Take 4 [facility] LE 500 mg 12-26 tablets by ity of tablet 00:00: 05:59 mouth 2 [place] 00 :00 (two) Medical times [place] daily for 1 dose. NaCl 0.9% No 1000mL at 999 Uni vers (NS) bolus 12-25 mL/hr, ity of infusion 17:30: 18:07 1,000 mL, [place] 1,000 mL 00 :00 IV Medical Infusion, [place] ONCE, 1 dose, [place] 12/25/20 at 1130, STAT proMETHazin No 12.5mg 12.5 mg, Univers e 12-25 IV ity of (PHENERGAN) 17:30: 16:45 [place], [place] 12.5 mg in 00 :00 ONCE, 1 Medica l NaCl 0.9% dose, [facility] h (NS) 50 mL 12/25/20 at piggyback 1130, 50 mL cefTRIAXone No 250mg 250 mg, U nivers (ROCEPHIN) 12-25 Intramuscu it y of injection 16:30: 16:45 [place], ONCE [place] 250 mg 00 :00 NOW, 1 Medical dose, [facility] 12/25/20 at 1030, MATTHEW
Fa culty member approving Restricted medication : MYNOR HOLLIS
Reaso n for Anti-Infec tive: Documented Infection< br>Docu mented Infection Site: Abdominal< br>Duratio n of Therapy: 7 days azithromyci No 1000mg 1,000 mg, Univers n 1-24 01-24 Oral, ONCE ity of (ZITHROMAX) 16:30: 16:44 NOW, 1 [place] tablet 00 :00 dose, [place] [facility] 1,000 mg 12/25/20 at [facility] h 1030, MATTHEW
Re ason for [...] dose, Fri Medica l mL) 07/15/20 at [place] injection 1715, 120 mL Routine dicyclomine 2019-0 Yes 10mg 10 mg, Univ ers (BENTYL) 8-14 Oral, QID, ity o f capsule 10 21:00: First dose [place] mg 00 on [facility] Medical 07/15/20 at [place] 1600, Until Discontinu ed, Routine pantoprazol 2019-0 2020- No 80mg 80 mg, IV Univers e 07-15 Piggyback, ity of (PROTONIX) 19:45: 20:00 ONCE, 1 [place] 80 mg in 00 :00 dose, Fri Medica l NaCl 0.9% 07/15/20 at [facility] ch (NS) 100 mL 1445, 100 IV mL [place] sucralfate 2020-0 Yes [id number] 1g Take 1 Un gracy 1 gram 8-14 tablet by ity of tablet 00:00: mouth [place] 00 before Medical meals and Branch at bedtime. dicyclomine 2020-0 Yes [id number] 10mg Take 1 U nivers (BENTYL) 10 8-14 capsule by it y of mg capsule 00:00: mouth [place] 00 every 8 Medical (eight) Branch hours as needed for Abdominal pain. ondansetron 2020-0 Yes [id number] 4mg Take 1 U nivers 4 mg 8-14 tablet by ity of disintegrat 00:00: mouth [place] ing tablet 00 every 8 Medica l (eight) Branch hours as needed for Nausea and Vomiting (N/V). sucralfate 2020-0 Yes [id number] 1g Take 1 Un gracy 1 gram 8-14 tablet by ity of tablet 00:00: mouth [place] 00 before Medical meals and Branch at bedtime. dicyclomine 2020-0 Yes [id number] 10mg Take 1 U nivers (BENTYL) 10 8-14 capsule by it y of mg capsule 00:00: mouth [place] 00 every 8 Medical (eight) Branch hours as needed for Abdominal pain. ondansetron 2020-0 Yes [id number] 4mg Take 1 U nivers 4 mg 8-14 tablet by ity of disintegrat 00:00: mouth [place] ing tablet 00 every 8 Medica l (eight) Branch hours as needed for Nausea and Vomiting (N/V). sucralfate 2020-0 Yes [id number] 1g Take 1 Un gracy 1 gram 8-14 tablet by ity of tablet 00:00: mouth [place] 00 before Medical meals and Branch at bedtime. dicyclomine 2020-0 Yes [id number] 10mg Take 1 U nivers (BENTYL) 10 8-14 capsule by it y of mg capsule 00:00: mouth [place] 00 every 8 Medical (eight) Branch hours as needed for Abdominal pain. ondansetron 2020-0 Yes [id number] 4mg Take 1 U nivers 4 mg 8-14 tablet by ity of disintegrat 00:00: mouth [place] ing tablet 00 every 8 Medica l (eight) Branch hours as needed for Nausea and Vomiting (N/V). sucralfate 2020-0 Yes [id number] 1g Take 1 Un gracy 1 gram 8-14 tablet by ity of tablet 00:00: mouth [place] 00 before Medical meals and Branch at bedtime. dicyclomine 2020-0 Yes [id number] 10mg Take 1 U nivers (BENTYL) 10 8-14 capsule by it y of mg capsule 00:00: mouth [place] 00 every 8 Medical (eight) Branch hours as needed for Abdominal pain. ondansetron 2020-0 Yes [id number] 4mg Take 1 U nivers 4 mg 8-14 tablet by ity of disintegrat 00:00: mouth [place] ing tablet 00 every 8 Medica l (eight) Branch hours as needed for Nausea and Vomiting (N/V). sucralfate 2020-0 Yes [id number] 1g Take 1 Un gracy 1 gram 8-14 tablet by ity of tablet 00:00: mouth [place] 00 before Medical meals and Branch at bedtime. dicyclomine 2020-0 Yes [id number] 10mg Take 1 U nivers (BENTYL) 10 8-14 capsule by it y of mg capsule 00:00: mouth [place] 00 every 8 Medical (eight) Branch hours as needed for Abdominal pain. ondansetron 2020-0 Yes [id number] 4mg Take 1 U nivers 4 mg 8-14 tablet by ity of disintegrat 00:00: mouth [place] ing tablet 00 every 8 Medica l (eight) Branch hours as needed for Nausea and Vomiting (N/V). sucralfate 2020-0 Yes [id number] 1g Take 1 Un gracy 1 gram 8-14 tablet by ity of tablet 00:00: mouth [place] 00 before Medical meals and Branch at bedtime. dicyclomine 2020-0 Yes [id number] 10mg Take 1 U nivers (BENTYL) 10 8-14 capsule by it y of mg capsule 00:00: mouth [place] 00 every 8 Medical (eight) Branch hours as needed for Abdominal pain. ondansetron 2020-0 Yes [id number] 4mg Take 1 U nivers 4 mg 8-14 tablet by ity of disintegrat 00:00: mouth [place] ing tablet 00 every 8 Medica l (eight) Branch hours as needed for Nausea and Vomiting (N/V). sucralfate 2020-0 Yes [id number] 1g Take 1 Un gracy 1 gram 8-14 tablet by ity of tablet 00:00: mouth [place] 00 before Medical meals and Branch at bedtime. dicyclomine 2020-0 Yes [id number] 10mg Take 1 U nivers (BENTYL) 10 8-14 capsule by it y of mg capsule 00:00: mouth [place] 00 every 8 Medical (eight) Branch hours as needed for Abdominal pain. ondansetron 2020-0 Yes [id number] 4mg Take 1 U nivers 4 mg 8-14 tablet by ity of disintegrat 00:00: mouth [place] ing tablet 00 every 8 Medica l (eight) Branch hours as needed for Nausea and Vomiting (N/V). sucralfate 2020-0 Yes [id number] 1g Take 1 Un gracy 1 gram 8-14 tablet by ity of tablet 00:00: mouth [place] 00 before Medical meals and Branch at bedtime. dicyclomine 2020-0 Yes [id number] 10mg Take 1 U nivers (BENTYL) 10 8-14 capsule by it y of mg capsule 00:00: mouth [place] 00 every 8 Medical (eight) Branch hours as needed for Abdominal pain. ondansetron 2020-0 Yes [id number] 4mg Take 1 [facility] 4 mg 8-14 tablet by ity of disintegrat 00:00: mouth [place] ing tablet 00 every 8 Medica l (eight) Branch hours as needed for Nausea and Vomiting (N/V). sucralfate 2020-0 Yes [id number] 1g Take 1 [facility] 1 gram 8-14 tablet by ity of tablet 00:00: mouth [place] 00 before Medical meals and Branch at bedtime. dicyclomine 2020-0 Yes [id number] 10mg Take 1 U nivers (BENTYL) 10 8-14 capsule by it y of mg capsule 00:00: mouth [place] 00 every 8 Medical (eight) Branch hours as needed for Abdominal pain. ondansetron 2020-0 Yes [id number] 4mg Take 1 [facility]ivers 4 mg 8-14 tablet by ity of disintegrat 00:00: mouth [place] ing tablet 00 every 8 Medica l (eight) Branch hours as needed for Nausea and Vomiting (N/V). sucralfate 2020-0 Yes [id number] 1g Take 1 Un gr[facility] 1 gram 8-14 tablet by ity of tablet 00:00: mouth [place] 00 before Medical meals and Branch at bedtime. dicyclomine 2020-0 Yes [id number] 10mg Take 1 U nivers (BENTYL) 10 8-14 capsule by it y of mg capsule 00:00: mouth [place] 00 every 8 Medical (eight) Branch hours as needed for Abdominal pain. ondansetron 2020-0 Yes [id number] 4mg Take 1 [facility]ivers 4 mg 8-14 tablet by ity of disintegrat 00:00: mouth [place] ing tablet 00 every 8 Medica l (eight) Branch hours as needed for Nausea and Vomiting (N/V). sucralfate 2020-0 Yes [id number] 1g Take 1 Un gr[facility] 1 gram 8-14 tablet by ity of tablet 00:00: mouth [place] 00 before Medical meals and Branch at bedtime. dicyclomine 2020-0 Yes [id number] 10mg Take 1 U nivers (BENTYL) 10 8-14 capsule by it y of mg capsule 00:00: mouth [place] 00 every 8 Medical (eight) Branch hours as needed for Abdominal pain. ondansetron 2020-0 Yes [id number] 4mg Take 1 [facility] nivers 4 mg 8-14 tablet by ity of disintegrat 00:00: mouth [place] ing tablet 00 every 8 Medica l (eight) Branch hours as needed for Nausea and Vomiting (N/V). sucralfate 2020-0 Yes [id number] 1g Take 1 Un [facility] 1 gram 8-14 tablet by ity of tablet 00:00: mouth [place] 00 before Medical meals and Branch at bedtime. dicyclomine 2020-0 Yes [id number] 10mg Take 1 U nivers (BENTYL) 10 8-14 capsule by it y of mg capsule 00:00: mouth [place] 00 every 8 Medical (eight) Branch hours as needed for Abdominal pain. ondansetron 2020-0 Yes [id number] 4mg Take 1 U nivers 4 mg 8-14 tablet by ity of disintegrat 00:00: mouth [place] ing tablet 00 every 8 Medica l (eight) Branch hours as needed for Nausea and Vomiting (N/V). sucralfate 2020-0 Yes [id number] 1g Take 1 Un gr[facility] 1 gram 8-14 tablet by ity of tablet 00:00: mouth [place] 00 before Medical meals and Branch at bedtime. dicyclomine 2020-0 Yes [id number] 10mg Take 1 U nivers (BENTYL) 10 8-14 capsule by it y of mg capsule 00:00: mouth [place] 00 every 8 Medical (eight) Branch hours as needed for Abdominal pain. ondansetron 2020-0 Yes [id number] 4mg Take 1 [facility]ivers 4 mg 8-14 tablet by ity of disintegrat 00:00: mouth [place] ing tablet 00 every 8 Medica l (eight) Branch hours as needed for Nausea and Vomiting (N/V). sucralfate 2020-0 Yes [id number] 1g Take 1 Un [facility] 1 gram 8-14 tablet by ity of tablet 00:00: mouth [place] 00 before Medical meals and Branch at bedtime. dicyclomine 2020-0 Yes [id number] 10mg Take 1 [facility] nivers (BENTYL) 10 8-14 capsule by it y of mg capsule 00:00: mouth [place] 00 every 8 Medical (eight) Branch hours as needed for Abdominal pain. ondansetron 2020-0 Yes [id number] 4mg Take 1 [facility] 4 mg 8-14 tablet by ity of disintegrat 00:00: mouth [place] ing tablet 00 every 8 Medica l (eight) Branch hours as needed for Nausea and Vomiting (N/V). sucralfate 2020-0 Yes [id number] 1g Take 1 [facility] 1 gram 8-14 tablet by ity of tablet 00:00: mouth [place] 00 before Medical meals and Branch at bedtime. dicyclomine 2020-0 Yes [id number] 10mg Take 1 U nivers (BENTYL) 10 8-14 capsule by it y of mg capsule 00:00: mouth [place] 00 every 8 Medical (eight) Branch hours as needed for Abdominal pain. ondansetron 2020-0 Yes [id number] 4mg Take 1 [facility]ivers 4 mg 8-14 tablet by ity of disintegrat 00:00: mouth [place] ing tablet 00 every 8 Medica l (eight) Branch hours as needed for Nausea and Vomiting (N/V). sucralfate 2020-0 Yes [id number] 1g Take 1 [facility] 1 gram 8-14 tablet by ity of tablet 00:00: mouth [place] 00 before Medical meals and Branch at bedtime. dicyclomine 2020-0 Yes [id number] 10mg Take 1 U nivers (BENTYL) 10 8-14 capsule by it y of mg capsule 00:00: mouth [place] 00 every 8 Medical (eight) Branch hours as needed for Abdominal pain. ondansetron 2020-0 Yes [id number] 4mg Take 1 U nivers 4 mg 8-14 tablet by ity of disintegrat 00:00: mouth [place] ing tablet 00 every 8 Medica l (eight) Branch hours as needed for Nausea and Vomiting (N/V). sucralfate 2020-0 Yes [id number] 1g Take 1 Un [facility] 1 gram 8-14 tablet by ity of tablet 00:00: mouth [place] 00 before Medical meals and Branch at bedtime. dicyclomine 2020-0 Yes [id number] 10mg Take 1 U nivers (BENTYL) 10 8-14 capsule by it y of mg capsule 00:00: mouth [place] 00 every 8 Medical (eight) Branch hours as needed for Abdominal pain. ondansetron 2020-0 Yes [id number] 4mg Take 1 [facility]ivers 4 mg 8-14 tablet by ity of disintegrat 00:00: mouth [place] ing tablet 00 every 8 Medica l (eight) Branch hours as needed for Nausea and Vomiting (N/V). sucralfate 2020-0 Yes [id number] 1g Take 1 Un [facility] 1 gram 8-14 tablet by ity of tablet 00:00: mouth [place] 00 before Medical meals and Branch at bedtime. dicyclomine 2020-0 Yes [id number] 10mg Take 1 U nivers (BENTYL) 10 8-14 capsule by it y of mg capsule 00:00: mouth [place] 00 every 8 Medical (eight) Branch hours as needed for Abdominal pain. ondansetron 2020-0 Yes [id number] 4mg Take 1 U nivers 4 mg 8-14 tablet by ity of disintegrat 00:00: mouth [place] ing tablet 00 every 8 Medica l (eight) Branch hours as needed for Nausea and Vomiting (N/V). sucralfate 2020-0 Yes [id number] 1g Take 1 [facility] 1 gram 8-14 tablet by ity of tablet 00:00: mouth [place] 00 before Medical meals and Branch at bedtime. dicyclomine 2020-0 Yes [id number] 10mg Take 1 U nivers (BENTYL) 10 8-14 capsule by it y of mg capsule 00:00: mouth [place] 00 every 8 Medical (eight) Branch hours as needed for Abdominal pain. ondansetron 2020-0 Yes [id number] 4mg Take 1 U nivers 4 mg 8-14 tablet by ity of disintegrat 00:00: mouth [place] ing tablet 00 every 8 Medica l (eight) Branch hours as needed for Nausea and Vomiting (N/V). sucralfate 2020-0 Yes [id number] 1g Take 1 Un gr[facility] 1 gram 8-14 tablet by ity of tablet 00:00: mouth [place] 00 before Medical meals and Branch at bedtime. dicyclomine 2020-0 Yes [id number] 10mg Take 1 U nivers (BENTYL) 10 8-14 capsule by it y of mg capsule 00:00: mouth [place] 00 every 8 Medical (eight) Branch hours as needed for Abdominal pain. ondansetron 2020-0 Yes [id number] 4mg Take 1 [facility] nivers 4 mg 8-14 tablet by ity of disintegrat 00:00: mouth [place] ing tablet 00 every 8 Medica l (eight) Branch hours as needed for Nausea and Vomiting (N/V). sucralfate 2020-0 Yes [id number] 1g Take 1 Un gr[facility] 1 gram 8-14 tablet by ity of tablet 00:00: mouth [place] 00 before Medical meals and Branch at bedtime. dicyclomine 2020-0 Yes [id number] 10mg Take 1 [facility] nivers (BENTYL) 10 8-14 capsule by it y of mg capsule 00:00: mouth [place] 00 every 8 Medical (eight) Branch hours as needed for Abdominal pain. ondansetron 2020-0 Yes [id number] 4mg Take 1 [facility]ivers 4 mg 8-14 tablet by ity of disintegrat 00:00: mouth [place] ing tablet 00 every 8 Medica l (eight) Branch hours as needed for Nausea and Vomiting (N/V). sucralfate 2020-0 Yes [id number] 1g Take 1 Un gr[facility] 1 gram 8-14 tablet by ity of tablet 00:00: mouth [place] 00 before Medical meals and Branch at bedtime. dicyclomine 2020-0 Yes [id number] 10mg Take 1 U nivers (BENTYL) 10 8-14 capsule by it y of mg capsule 00:00: mouth [place] 00 every 8 Medical (eight) Branch hours as needed for Abdominal pain. ondansetron 2020-0 Yes [id number] 4mg Take 1 [facility] nivers 4 mg 8-14 tablet by ity of disintegrat 00:00: mouth [place] ing tablet 00 every 8 Medica l (eight) Branch hours as needed for Nausea and Vomiting (N/V). dicyclomine 2020-0 Yes [id number] 10mg Take 1 U nivers (BENTYL) 10 8-14 capsule by it y of mg capsule 00:00: mouth [place] 00 every 8 Medical (eight) Branch hours as needed for Abdominal pain. dicyclomine 2020-0 Yes [id number] 10mg Take 1 [facility] nivers (BENTYL) 10 8-14 capsule by it y of mg capsule 00:00: mouth [place] 00 every 8 Medical (eight) Branch hours as needed for Abdominal pain. dicyclomine 2020-0 Yes [id number] 10mg Take 1 [facility] nivers (BENTYL) 10 8-14 capsule by it y of mg capsule 00:00: mouth [place] 00 every 8 Medical (eight) Branch hours as needed for Abdominal pain. dicyclomine 2020-0 Yes [id number] 10mg Take 1 U nivers (BENTYL) 10 8-14 capsule by it y of mg capsule 00:00: mouth [place] 00 every 8 Medical (eight) Branch hours as needed for Abdominal pain. dicyclomine 2020-0 Yes [id number] 10mg Take 1 U nivers (BENTYL) 10 8-14 capsule by it y of mg capsule 00:00: mouth [place] 00 every 8 Medical (eight) Branch hours as needed for Abdominal pain. dicyclomine 2020-0 Yes [id number] 10mg Take 1 U nivers (BENTYL) 10 8-14 capsule by it y of mg capsule 00:00: mouth [place] 00 every 8 Medical (eight) Branch hours as needed for Abdominal pain. dicyclomine 2020-0 Yes [id number] 10mg Take 1 U nivers (BENTYL) 10 8-14 capsule by it y of mg capsule 00:00: mouth [place] 00 every 8 Medical (eight) Branch hours as needed for Abdominal pain. dicyclomine 2020-0 Yes [id number] 10mg Take 1 U nivers (BENTYL) 10 8-14 capsule by it y of mg capsule 00:00: mouth [place] 00 every 8 Medical (eight) Branch hours as needed for Abdominal pain. dicyclomine 2020-0 Yes [id number] 10mg Take 1 U nivers (BENTYL) 10 8-14 capsule by it y of mg capsule 00:00: mouth [place] 00 every 8 Medical (eight) Branch hours as needed for Abdominal pain. dicyclomine 2020-0 Yes [id number] 10mg Take 1 U nivers (BENTYL) 10 8-14 capsule by it y of mg capsule 00:00: mouth [place] 00 every 8 Medical (eight) Branch hours as needed for Abdominal pain. dicyclomine 2020-0 Yes [id number] 10mg Take 1 U nivers (BENTYL) 10 8-14 capsule by it y of mg capsule 00:00: mouth [place] 00 every 8 Medical (eight) Branch hours as needed for Abdominal pain. dicyclomine 2020-0 Yes [id number] 10mg Take 1 U nivers (BENTYL) 10 8-14 capsule by it y of mg capsule 00:00: mouth [place] 00 every 8 Medical (eight) Branch hours as needed for Abdominal pain. dicyclomine 2020-0 Yes [id number] 10mg Take 1 U nivers (BENTYL) 10 8-14 capsule by it y of mg capsule 00:00: mouth [place] 00 every 8 Medical (eight) Branch hours as needed for Abdominal pain. dicyclomine 2020-0 Yes [id number] 10mg Take 1 U nivers (BENTYL) 10 8-14 capsule by it y of mg capsule 00:00: mouth [place] 00 every 8 Medical (eight) Branch hours as needed for Abdominal pain. dicyclomine 2020-0 Yes [id number] 10mg Take 1 U nivers (BENTYL) 10 8-14 capsule by it y of mg capsule 00:00: mouth [place] 00 every 8 Medical (eight) Branch hours as needed for Abdominal pain. dicyclomine 2020-0 Yes [id number] 10mg Take 1 U nivers (BENTYL) 10 8-14 capsule by it y of mg capsule 00:00: mouth [place] 00 every 8 Medical (eight) Branch hours as needed for Abdominal pain. dicyclomine 2020-0 Yes [id number] 10mg Take 1 U nivers (BENTYL) 10 8-14 capsule by it y of mg capsule 00:00: mouth [place] 00 every 8 Medical (eight) Branch hours as needed for Abdominal pain. dicyclomine 2020-0 Yes [id number] 10mg Take 1 U nivers (BENTYL) 10 8-14 capsule by it y of mg capsule 00:00: mouth [place] 00 every 8 Medical (eight) Branch hours as needed for Abdominal pain. dicyclomine 2020-0 Yes [id number] 10mg Take 1 U nivers (BENTYL) 10 8-14 capsule by it y of mg capsule 00:00: mouth [place] 00 every 8 Medical (eight) Branch hours as needed for Abdominal pain. dicyclomine 2020-0 Yes [id number] 10mg Take 1 U nivers (BENTYL) 10 8-14 capsule by it y of mg capsule 00:00: mouth [place] 00 every 8 Medical (eight) Branch hours as needed for Abdominal pain. dicyclomine 2020-0 Yes [id number] 10mg Take 1 U nivers (BENTYL) 10 8-14 capsule by it y of mg capsule 00:00: mouth [place] 00 every 8 Medical (eight) Branch hours as needed for Abdominal pain. dicyclomine 2019- Yes [id number] 10mg Take 1 U nivers (BENTYL) 10 8-14 capsule by it y of mg capsule 00:00: mouth [place] 00 every 8 Medical (eight) Branch hours as needed for Abdominal pain. sucralfate 2022- No [id number] 1g Take 1 U nivers 1 gram 8-14 04-25 tablet by ity of tablet 00:00: 00:00 mouth [place] 00 :00 before Medical meals and Branch at bedtime. ondansetron 2022- No [id number] 4mg Take 1 [facility] 4 mg 8-14 04-25 tablet by ity of disintegrat 00:00: 00:00 [place] tablet 00 :00 every 8 Medica l (eight) Branch hours as needed for Nausea and Vomiting (N/V). sucralfate 2022- No [id number] 1g Take 1 U nivers 1 gram 8-14 04-25 tablet by ity of tablet 00:00: 00:00 mouth [place] 00 :00 before Medical meals and Branch at bedtime. ondansetron 2022- No [id number] 4mg Take 1 [facility] 4 mg 8-14 04-25 tablet by ity of disintegrat 00:00: 00:00 [place] 00 :00 every 8 Medica l (eight) Branch hours as needed for Nausea and Vomiting (N/V). sucralfate 2022- No [id number] 1g Take 1 U nivers 1 gram 8-14 04-25 tablet by ity of tablet 00:00: 00:00 mouth [place] 00 :00 before Medical meals and Branch at bedtime. ondansetron 2022- No [id number] 4mg Take 1 [facility] 4 mg 8-14 04-25 tablet by ity of disintegrat 00:00: 00:00 [place] tablet 00 :00 every 8 Medica l (eight) Branch hours as needed for Nausea and Vomiting (N/V). omeprazole 2019- No [id number] 20mg Take 1 U nivers 20 mg 8-14 09-14 capsule by ity of capsule 00:00: 04:59 mouth [place] 00 :00 daily for Medical 30 days. Branch omeprazole 2020-0 2020- No [id number] 20mg Take 1 U nivers 20 mg 8-14 -14 capsule by ity of capsule 00:00: 04:59 mouth [place] 00 :00 daily for Medical 30 days. Branch omeprazole 2020-0 2020- No [id number] 20mg Take 1 U nivers 20 mg 8-14 -14 capsule by ity of capsule 00:00: 04:59 mouth [place] 00 :00 daily for Medical 30 days. Branch omeprazole 2020-0 2020- No [id number] 20mg Take 1 U nivers 20 mg 8-14 - capsule by ity of capsule 00:00: 04:59 mouth [place] 00 :00 daily for Medical 30 days. Branch omeprazole 2020-0 2020- No [id number] 20mg Take 1 U nivers 20 mg 8-14 - capsule by ity of capsule 00:00: 04:59 mouth [place] 00 :00 daily for Medical 30 days. [place] omeprazole 2020-0 2020- No [id number] 20mg Take 1 U nivers 20 mg 8-15 08- capsule by ity of capsule 00:00: 04:59 mouth [place] 00 :00 daily for Medical 30 days. Branch omeprazole 2020-0 2020- No [id number] 20mg Take 1 U nivers 20 mg 8-15 08- capsule by ity of capsule 00:00: 04:59 mouth [place] 00 :00 daily for Medical 30 days. [place] omeprazole 2020-0 2020- No [id number] 20mg Take 1 U nivers 20 mg 8-14 08-15 capsule by ity of capsule 00:00: 04:59 mouth [place] 00 :00 daily for Medical 30 days. [place] enoxaparin 2019-0 Yes 40mg 40 mg, Unive rs (LOVENOX) 4-21 Subcutaneo ity of injection 14:00: [place] 40 [place] 00 First dose Medical on Sat [place] 03/22/20 at 0900, Until Discontinu ed, Routine ondansetron 2019-0 Yes 4mg 4 mg, Slow [facility] (ZOFRAN 4-21 IV Push, ity of (PF)) 09:23: Q6HPRN, [place] injection 4 44 Starting Medi dorothy mg [facility] 03/22/20 at 0423, Until Discontinu ed, Routine, [...] 4-21 Oral, ity of (TYLENOL) 09:22: Q6HPRN, [place] tablet 650 49 Starting Medic al mg Tue Branch 03/22/20 at 0422, Until Discontinu ed, Routine, Pain (scale 1-3) ondansetron 2020- No 4mg 4 mg, Slow Univers (ZOFRAN -22 03- IV Push, ity of (PF)) 07:15: 07:14 ONCE, 1 [place] injection 4 00 :00 dose, e Med ical mg 03/22/20 at Branch 0215, MATTHEW ondansetron 2018-12 2020- No [id number] 4mg Take 1 [facility] (ZOFRAN 2-25 -21 tablet by ity of ODT) 4 mg 00:00: 00:00 mouth [place] disintegrat 00 :00 every 8 Medic al ing tablet (eight) Branch hours as needed for Nausea and Vomiting (N/V). ketorolac 2018-12 2020- No [id number] 10mg Take 1 [facility] 10 mg 2-25 -21 tablet by ity of tablet 00:00: 00:00 mouth [place] 00 :00 every 6 Medical (six) Branch hours as needed for Pain (scale 1-3). No known No [facility] known [facility] No [facility] medications [facility] Immunizations Ordered Filled Date Status Comments Source Immunization Name Immunization Name Influenza Virus 2017-09-26 Completed Universit y of Vaccine [facility] IM 3+ 00:00:00 [facility] Influenza Virus 2017-09-26 Completed Universit y of Vaccine Quad IM 3+ 00:00:00 [facility] Influenza Virus 2017-09-26 Completed Universit y of Vaccine Quad IM 3+ 00:00:00 [facility] Influenza Virus 2017-09-26 Completed Universit y of Vaccine Quad IM 3+ 00:00:00 [facility] Influenza Virus 2017-09-26 Completed Universit y of Vaccine Quad IM 3+ 00:00:00 [facility] Influenza Virus 2017-09-26 Completed Universit y of Vaccine Quad IM 3+ 00:00:00 [facility] Influenza Virus 2017-09-26 Completed Universit y of Vaccine Quad IM 3+ 00:00:00 [facility] Influenza Virus 2017-09-26 Completed Universit y of Vaccine Quad IM 3+ 00:00:00 [facility] Influenza Virus 2017-09-26 Completed Universit y of Vaccine Quad IM 3+ 00:00:00 [facility] Influenza Virus 2017-09-26 Completed Universit y of Vaccine Quad IM 3+ 00:00:00 [facility] Influenza Virus 2017-09-26 Completed Universit y of Vaccine Quad IM 3+ 00:00:00 [facility] Influenza Virus 2017-09-26 Completed Universit y of Vaccine Quad IM 3+ 00:00:00 [facility] Influenza Virus 2017-09-26 Completed Universit y of Vaccine Quad IM 3+ 00:00:00 [facility] Influenza Virus 2017-09-26 Completed Universit y of Vaccine Quad IM 3+ 00:00:00 [facility] Influenza Virus 2017-09-26 Completed Universit y of Vaccine Quad IM 3+ 00:00:00 [facility] Influenza Virus 2017-09-26 Completed Universit y of Vaccine Quad IM 3+ 00:00:00 [facility] Influenza Virus 2017-09-26 Completed Universit y of Vaccine Quad IM 3+ 00:00:00 [facility] Influenza Virus 2017-09-26 Completed Universit y of Vaccine Quad IM 3+ 00:00:00 [facility] Influenza Virus 2017-09-26 Completed Universit y of Vaccine Quad IM 3+ 00:00:00 [facility] Influenza Virus 2017-09-26 Completed Universit y of Vaccine Quad IM 3+ 00:00:00 [facility] Influenza Virus 2017-09-26 Completed Universit y of Vaccine Quad IM 3+ 00:00:00 [facility] Influenza Virus 2017-09-26 Completed Universit y of Vaccine Quad IM 3+ 00:00:00 [facility] Influenza Virus 2017-09-26 Completed Universit y of Vaccine Quad IM 3+ 00:00:00 [facility] Influenza Virus 2017-09-26 Completed Universit y of Vaccine Quad IM 3+ 00:00:00 [facility] Influenza Virus 2017-09-26 Completed Universit y of Vaccine Quad IM 3+ 00:00:00 [facility] Influenza Virus 2017-09-26 Completed Universit y of Vaccine Quad IM 3+ 00:00:00 [facility] Influenza Virus 2017-09-26 Completed Universit y of Vaccine Quad IM 3+ 00:00:00 [facility] Influenza Virus 2017-09-26 Completed Universit y of Vaccine Quad IM 3+ 00:00:00 [facility] Influenza Virus 2017-09-26 Completed Universit y of Vaccine Quad IM 3+ 00:00:00 [facility] Influenza Virus 2017-09-26 Completed Universit y of Vaccine Quad IM 3+ 00:00:00 [facility] Influenza Virus 2017-09-26 Completed Universit y of Vaccine Quad IM 3+ 00:00:00 [facility] Influenza Virus 2017-09-26 Completed Universit y of Vaccine Quad IM 3+ 00:00:00 [facility] Influenza Virus 2017-09-26 Completed Universit y of Vaccine Quad IM 3+ 00:00:00 [facility] Influenza Virus 2017-09-26 Completed Universit y of Vaccine Quad IM 3+ 00:00:00 [facility] Influenza Virus 2017-09-26 Completed Universit y of Vaccine Quad IM 3+ 00:00:00 [facility] Influenza Virus 2017-09-26 Completed Universit y of Vaccine Quad IM 3+ 00:00:00 [facility] Influenza Virus 2017-09-26 Completed Universit y of Vaccine Quad IM 3+ 00:00:00 [facility] Influenza Virus 2017-09-26 Completed Universit y of Vaccine Quad IM 3+ 00:00:00 [facility] Influenza Virus 2017-09-26 Completed Universit y of Vaccine Quad IM 3+ 00:00:00 [facility] Influenza Virus 2017-09-26 Completed Universit y of Vaccine Quad IM 3+ 00:00:00 [facility] Influenza Virus 2017-09-26 Completed Universit y of Vaccine Quad IM 3+ 00:00:00 [facility] Influenza Virus 2017-09-26 Completed Universit y of Vaccine Quad IM 3+ 00:00:00 [facility] Influenza Virus 2017-09-26 Completed Universit y of Vaccine Quad IM 3+ 00:00:00 [facility] Influenza Virus 2017-09-26 Completed Universit y of Vaccine Quad IM 3+ 00:00:00 [facility] Influenza Virus 2017-09-26 Completed Universit y of Vaccine Quad IM 3+ 00:00:00 [facility] Influenza Virus 2017-09-26 Completed Universit y of Vaccine Quad IM 3+ 00:00:00 [facility] Influenza Virus 2017-09-26 Completed Universit y of Vaccine Quad IM 3+ 00:00:00 [facility] Influenza Virus 2017-09-26 Completed Universit y of Vaccine Quad IM 3+ 00:00:00 [facility] Influenza Virus 2017-09-26 Completed Universit y of Vaccine Quad IM 3+ 00:00:00 [facility] Influenza Virus Unknown Completed Universit y of Vaccine Quad IM 3+ [facility] Vital Signs Vital Name Observation Time Observation Value Comments Source Body temperature 2023-05-[address] [facility] 21:04:00 [facility] Body height 2023-05-03 152.4 cm [facility] 21:04:00 [facility] Body weight 2023-05-03 58.968 kg [facility] 21:04:00 [facility] BMI 2023-05-03 25.39 kg/m2 [facility] 21:04:00 [facility] WEIGHT 2023-04-23 57.6 kg 03:00:00 WEIGHT 2023-04-23 57.6 kg 03:00:00 WEIGHT 2023-04-23 57.6 kg 03:00:00 Systolic blood 2023-04-08 143 mm[Hg] University of pressure 16:08:00 [facility] Diastolic blood 2023-04-08 91 mm[Hg] University o f pressure 16:08:00 [facility] Heart rate 2023-04-08 87 /min University 16:08:00 [facility] Body temperature 2023-04-[address] [facility] 16:08:00 [facility] Body height 2023-04-08 152.4 cm [facility] [place] of 16:08:00 [facility] Body weight 2023-04-08 60.51 kg University of 16:08:00 [facility] BMI 2023-04-08 26.05 kg/m2 University of 16:08:00 [facility] Heart rate 2023-03-27 86 /min University of 18:25:[address] [facility] Respiratory rate 2023-03-27 15 /min University of 18:25:00 [facility] Oxygen saturation 2023-03-27 99 /min University of in Arterial blood 18:25:00 [place] Medi dorothy by Pulse oximetry Branch Systolic blood 2023-03-27 124 mm[Hg] University of pressure 18:15:[address] [facility] [address] [facility] Diastolic blood 2023-03-27 95 mm[Hg] University o f pressure 18:15:00 [facility] Body temperature 2023-03-27 36 [place] University of 17:52:00 [facility] Body height 2023-03-27 152.4 cm University of 14:46:00 [facility] Body weight 2023-03-27 59.421 kg University of 14:46:00 [facility] BMI 2023-03-27 25.58 kg/m2 University of 14:46:00 [facility] Systolic blood 2023-03-27 141 mm[Hg] University of pressure 14:47:00 [facility] Diastolic blood 2023-03-27 87 mm[Hg] University o f pressure 14:47:00 [facility] Heart rate 2023-03-27 95 /min University of 14:47:00 [facility] Body temperature 2023-03-27 36.67 Yarelis University of 14:46:00 [facility] Respiratory rate 2023-03-27 14 /min University of 14:46:00 [facility] Body height 2023-03-27 152.4 cm University of 14:46:00 [facility] Body weight 2023-03-27 59.421 kg University of 14:46:00 [facility] BMI 2023-03-27 25.58 kg/m2 University of 14:46:00 [facility] Oxygen saturation 2023-03-27 98 /min University of in Arterial blood 14:46:00 [place] [facility] by Pulse oximetry Branch Systolic blood 2023-03-25 131 mm[Hg] University of pressure 20:46:[address] [facility] Branch Diastolic blood 2023-03-25 87 mm[Hg] University o f pressure 20:46:00 [facility] Heart rate 2023-03-25 114 /min University of 20:46:00 [facility] Body temperature 2023-03-25 36.56 Yarelis University of 20:46:00 [facility] Body height 2023-03-25 152.4 cm University of 20:46:00 [facility] Body weight 2023-03-25 61.598 kg University of 20:46:00 [facility] BMI 2023-03-25 26.52 kg/m2 University of 20:46:00 [facility] Systolic blood 2023-03-16 134 mm[Hg] University of pressure 14:40:00 [facility] Diastolic blood 2023-03-16 90 mm[Hg] University o f pressure 14:40:00 [facility] Heart rate 2023-03-16 87 /min University of 14:40:00 [facility] Body temperature 2023-03-16 37.28 Yarelis University of 14:40:00 [facility] Respiratory rate 2023-03-16 16 /min University of 14:40:00 [facility] Body height 2023-03-16 152.4 cm University of 14:40:00 [facility] Body weight 2023-03-16 56.7 kg University of 14:40:00 [facility] BMI 2023-03-16 24.41 kg/m2 University of 14:40:00 [facility] Oxygen saturation 2023-03-16 99 /min University of in Arterial blood 14:40:00 [facility] by Pulse oximetry Branch Systolic blood 2020-12-26 115 mm[Hg] University of pressure 09:00:00 [facility] Diastolic blood 2020-12-26 76 mm[Hg] University o f pressure 09:00:00 [facility] Heart rate 2020-12-26 78 /min University of 09:00:00 [facility] Body temperature 2020-12-26 36.22 Yarelis University of 09:00:00 [facility] Respiratory rate 2020-12-26 16 /min University of 09:00:00 [facility] Oxygen saturation 2020-12-26 100 /min University of in Arterial blood 09:00:00 [facility] by Pulse oximetry Branch Body weight 2020-12-26 53.978 kg University of 00:27:00 [facility] BMI 2020-12-26 24.04 kg/m2 University of 00:27:00 [facility] Systolic blood 2020-12-26 115 mm[Hg] University of pressure 09:00:[address] [facility] Diastolic blood 2020-12-26 76 mm[Hg] University o f pressure 09:00:[address] [facility] Heart rate 2020-12-26 78 /min University of 09:00:00 [facility] Body temperature 2020-12-26 36.22 Yarelis University of 09:00:[address] [facility] Respiratory rate 2020-12-26 16 /min University of 09:00:00 [facility] Oxygen saturation 2020-12-26 100 /min University of in Arterial blood 09:00:00 [facility] by Pulse oximetry Branch Body weight 2020-12-26 53.978 kg University of 00::00 [facility] BMI 2020-12-26 24.04 kg/m2 University of 00:27:00 [facility] Systolic blood 2020-12-25 92 mm[Hg] University of pressure 22:30:00 [facility] Diastolic blood 2020-12-25 59 mm[Hg] University o f pressure 22:30:00 [facility] Heart rate 2020-12-25 91 /min University of 22:30:00 [facility] Respiratory rate 2020-12-25 14 /min University of :30:00 [facility] Oxygen saturation 2020-12-25 100 /min University of in Arterial blood 22:30:00 [facility] by Pulse oximetry Branch Body temperature 2020-12-25 36.89 Yarelis University of :07: [facility] Body height 2020-12-25 149.9 cm University of 16:07: [facility] Body weight 2020-12-25 53.978 kg University of 16:07:00 [facility] BMI 2020-12-25 24.04 kg/m2 University of 16:07:00 [facility] Systolic blood 2020-12-25 92 mm[Hg] University of pressure 22:30:00 [facility] Diastolic blood 2020-12-25 59 mm[Hg] University o f pressure 22:30:00 [facility] Heart rate 2020-12-25 91 /min University of 22:30:[address] [facility] Respiratory rate 2020-12-25 14 /min University of 22:30:00 [facility] Oxygen saturation 2020-12-25 100 /min University of in Arterial blood 22:30:00 [facility] by Pulse oximetry Branch Body temperature 2020-12-25 36.89 Yarelis University of 16:07:00 [facility] Body height 2020-12-25 149.9 cm University of 16:07:00 [facility] Body weight 2020-12-25 53.978 kg University of 16:07:00 [facility] BMI 2020-12-25 24.04 kg/m2 University of 16:07:00 [facility] Systolic blood 2020-07-26 146 mm[Hg] University of pressure 20:54:00 [facility] Diastolic blood 2020-07-26 96 mm[Hg] University o f pressure 20:54:00 [facility] Heart rate 2020-07-26 91 /min University of 19:55:00 [facility] Body temperature 2020-07-26 36.78 Yarelis University of 19:55:00 [facility] Respiratory rate 2020-07-26 16 /min University of 19:55:00 [facility] Body height 2020-07-26 172.7 cm University of 19:55:00 [facility] Body weight 2020-07-26 54.148 kg University of 19:55:00 [facility] BMI 2020-07-26 18.15 kg/m2 University of 19:55:00 [facility] Systolic blood 2020-07-15 119 mm[Hg] University of pressure 23:00:00 [facility] Diastolic blood 2020-07-15 80 mm[Hg] University o f pressure 23:00:00 [facility] Heart rate 2020-07-15 79 /min University of 23:00:00 [facility] Respiratory rate 2020-07-15 20 /min University of 23:00:00 [facility] Oxygen saturation 2020-07-15 96 /min [place] of in Arterial blood 23:00:00 [facility] by Pulse oximetry Branch Body temperature 2020-07-15 37.11 Yarelis University of 18:21:00 [facility] Body weight 2020-07-15 52.164 kg University of 18:21:00 [facility] BMI 2020-07-15 17.49 kg/m2 University of 18:21:00 [facility] Body temperature 2020-06-12 36.89 Yarelis University of 02:50:00 [facility] Respiratory rate 2020-06-12 24 /min University 02:50:00 [facility] Body weight 2020-06-12 50.803 kg University of 02:50:00 [facility] BMI 2020-06-12 17.03 kg/m2 University of 02:50:00 [facility] Oxygen saturation 2020-06-12 98 /min University of in Arterial blood 02:50:00 [facility] by Pulse oximetry [place] Systolic blood 2020-06-12 141 mm[Hg] University of pressure 02:50:00 [facility] Diastolic blood 2020-06-12 105 mm[Hg] University o f pressure 02:50:00 [facility] Heart rate 2020-06-12 108 /min University of 02:50:00 [facility] Systolic blood 2020-03-22 131 mm[Hg] University of pressure 16:32:00 [facility] Diastolic blood 2020-03-22 81 mm[Hg] University o f pressure 16:32:00 [facility] Heart rate 2020-03-22 70 /min [facility] 16:32:00 [facility] Body temperature 2020-03-22 37.06 Yarelis University 16:32:00 [facility] Respiratory rate 2020-03-22 18 /min University 16:32:00 [facility] Oxygen saturation 2020-03-22 97 /min [place] of in Arterial blood 16:32:00 [facility] by Pulse oximetry [place] Body height 2020-03-22 172.7 cm patient stated University of 09:15:00 height on [place] [facility]. [place] Body weight 2020-03-22 54.942 kg bedscale upon University of 09:15:00 admission to [facility] BMI 2020-03-22 18.42 kg/m2 University of 09:15:00 [facility] Heart rate 2023-04-24 122 /min [facility] 11:37:03 [facility] Respiratory rate 2023-04-24 16 /min [facility] 11:37:03 [facility] Oxygen saturation 2023-04-24 95 /min [facility] in Arterial blood 11:37:03 Medical nter by Pulse oximetry Body temperature 2023-04-[address] [facility] 11:36:51 [facility] Systolic blood 2023-04-24 135 mm[Hg] [facility] pressure 11:36:30 Medical Center Diastolic blood 2023-04-24 120 mm[Hg] [facility] pressure 11:36:30 [facility] Body weight 2023-04-23 57.6 kg [facility] 03:00:00 Medical Center Procedures Procedure Date / Time Performing Clinician Source Performed XR HAND 3+ VW RIGHT 2023-05-03 19:47:42 Y[facility] CBC W/PLT COUNT & AUTO 2023-04-24 06:45:00 Dominique Jones [facility] DIFFERENTIAL Ali Center CBC W/PLT COUNT & AUTO 2023-04-24 06:45:00 [place] Jonessh C [facility] DIFFERENTIAL Ali Center CBC W/PLT COUNT & AUTO 2023-04-23 04:40:00 Dominique Jones [facility] DIFFERENTIAL Ali [place] BASIC METABOLIC PANEL 2023-04-23 04:40:00 Dominique Jones [facility] CBC W/PLT COUNT & AUTO 2023-04-23 04:40:00 [place] Jonessh C [facility] DIFFERENTIAL Ali Center CBC W/PLT COUNT & AUTO 2023-04-22 04:00:00 Dominique Jones [facility] DIFFERENTIAL Ali [place] BASIC METABOLIC PANEL 2023-04-22 04:00:00 Dominique Jones [facility] CBC W/PLT COUNT & AUTO 2023-04-22 04:00:00 Dominique Jones [facility] DIFFERENTIAL Ali [place] FL FLUORO NON-SPECIFIC UP 2023-04-21 11:50:00 Mumtaz [facility] 1 HOUR Center TISSUE EXAM 2023-04-21 10:34:00 Mumtaz [facility] CYSTOSCOPY 2023-04-21 09:45:00 Mumtaz [facility] PROCEDURE W/ C-ARM 2023-04-21 09:45:00 [place], [facility] STD PANEL - CT/GC RNA 2023-04-21 06:25:00 Dominique Jones [facility] SCREEN, URINE 2023-04-21 06:25:00 Artur Wong [facility] CBC W/PLT COUNT & AUTO 2023-04-21 06:22:00 Dominique Jones [facility] DIFFERENTIAL Ali [place] BASIC METABOLIC PANEL 2023-04-21 06:22:00 [place] Jonesnoemy I [facility] HC LAB HIV-1 AG W/HIV-1&2 2023-04-21 06:22:00 [facility] AB Ali [place] HEPATITIS C ANTIBODY 2023-04-21 06:22:00 [facility] RPR 2023-04-21 06:22:00 [facility] B PANEL 2023-04-21 06:22:00 [facility] MAGNESIUM 2023-04-21 06:22:00 [facility] PHOSPHORUS 2023-04-21 06:22:00 [facility] PROTHROMBIN TIME/INR 2023-04-21 06:22:00 [facility] TYPE AND SCREEN, 2023-04-21 06:22:00 [facility] Dominiuqe [facility] AUTOMATED Ali Center CBC W/PLT COUNT & AUTO 2023-04-21 06:22:00 Dyllan Felipe [facility] URINE CULTURE 2023-04-21 01:43:00 Dyllan Felipe [facility] URINALYSIS W/ REFLEX 2023-04-21 01:43:00 Dyllan Felipe [facility] URINE CULTURE Center MEDICATION CORRESPONDENCE 2023-03-29 05:01:00 Doctor Unassigned, No [facility] Name Medical Branch FL TIME OR 2023-03-27 17:22:00 Dyllan Weller [facility] (NON-REPORTABLE) Medical Branch [place] TIME OR 2023-03-27 17:22:00 Dyllan Weller [facility] (NON-REPORTABLE) Medical Branch METACARPAL ORIF 2023-03-27 15:52:00 Yonas Fitzgerald [facility] NERVE BLOCK 2023-03-27 14:54:47 Dyllan Pak [facility] ASSIGNMENT OF BENEFITS 2023-03-27 14:19:17 Doctor Unassigned, No [facility] Name [facility] XR SCAPULA LEFT 2023-03-25 21:23:00 Dyllan Weller [facility] XR SHOULDER 2+ VW LEFT 2023-03-25 21:23:00 Dyllan Weller [facility] XR HAND 3+ VW RIGHT 2023-03-25 21:23:00 Dyllan Weller [facility] ASSIGNMENT OF BENEFITS 2023-03-25 19:49:51 Doctor Unassigned, No [facility] XR HAND 3+ VW RIGHT 2023-03-16 15:18:48 Mojgan Shah [facility] NOTICE OF PRIVACY 2023-03-16 14:35:26 Doctor Unassigned, No [facility] PRACTICES [facility] CONSENT/REFUSAL FOR 2023-03-16 14:34:22 Doctor Unassigned, No [facility] DIAGNOSIS AND TREATMENT [facility] Medical Branch REFERRAL- 2023-03-04 05:01:00 [facility]ONSE [facility] Medical Branch XR HAND 3+ VW LEFT 2020-12-26 09:21:04 Yonas Perea [facility] CT HEAD WO CONTRAST 2020-12-26 05:48:00 Yonas Perea [facility] ETHANOL 2020-12-25 21:54:00 Mynor [facility] ETHANOL 2020-12-25 20:21:00 Mynor Hollis [facility] POCT TEST 2020-12-25 18:07:00 Mynor Hollis [facility] ADC / LCC - DRUG SCREEN 2020-12-25 18:05:00 Mynor Hollis [facility] XR KUB 2020-12-25 17:06:45 Mynor Hollis [facility] COVID-19 (ID NOW RAPID 2020-12-25 16:55:00 Mynor Hollis [facility] TESTING) Medical Branch BASIC METABOLIC PANEL 2020-12-25 16:19:00 [facility] (NA, K, CL, CO2, GLUCOSE, Medica l Branch BUN, CREATININE, CA) ETHANOL 2020-12-25 16:19:00 Mynor Hollis [facility] CBC WITH DIFF 2020-12-25 16:19:00 Mynor Hollis [facility] ASSIGNMENT OF BENEFITS 2020-07-26 19:40:02 Doctor Unassigned, No [facility] CT ABDOMEN PELVIS W 2020-07-15 22:13:14 Singer [facility] CONTRAST [facility] POCT TEST 2020-07-15 18:47:00 Singer [facility] COMP. METABOLIC PANEL 2020-07-15 18:45:00 Singer [facility] ([id number]) Medical Branch CBC WITH DIFF 2020-07-15 18:45:00 Singer [facility] URINALYSIS 2020-07-15 18:45:00 [facility] COVID-19 (ID NOW RAPID 2020-07-15 18:45:00 Singer Dhruv [facility] TESTING) Medical Branch CONSENT/REFUSAL FOR 2020-07-15 18:15:15 Doctor Unassigned, No [facility] [place] [facility] Name Medical Branch XR CHEST 1 VW 2020-06-12 21:33:46 [place], [facility] NOTICE OF PRIVACY 2020-06-12 20:57:27 Doctor Unassigned, No Univ ers[facility] PRACTICES Name Medical Branch CONSENT/REFUSAL FOR 2020-06-12 20:53:21 Doctor Unassigned, No [facility] [place] DIAGNOSIS AND TREATMENT Name Medical Branch ECHO ROUTINE W/DOPPLER 2020-03-22 14:40:35 Alex Thomas [facility] COLOR Medical Branch XR CHEST 1 VW COVID 2020-03-22 07:40:01 Shun Benedict [facility] CORONAVIRUS COVID-19 2020-03-22 07:16:00 [facility]un [facility] TESTING [facility] LIPASE 2020-03-22 07:14:00 Shun Benedict [facility] TROPONIN I 2020-03-22 07:14:00 Shun Benedict [facility] COMP. METABOLIC PANEL 2020-03-22 07:14:00 Shun Benedict [facility] ([id number]) [facility] CBC WITH DIFFERENTIAL 2020-03-22 07:14:00 Shun Benedict [facility] EKG-12 LEAD 2020-03-22 07:07:34 Shun Benedict [facility] EKG-12 LEAD 2020-03-22 07:01:19 Shun Benedict [facility] Plan of Care Planned Activity Planned Date Details Comments Source Future Scheduled 2023 Lipid panel (procedure) [facility] Test 00:00:00 [code = 31723871] Medical Ce nter Future Scheduled 2023-08-02 Influenza Vaccine (#1) C [...] Me dical Center (#1)] Future Scheduled 2023-08-02 Influenza Vaccine (#1) C [...] Lukes Test 00:00:00 [code = INFLUENZA VACCINE Ak dical Center (#1)] Future Scheduled 2021-12-[address] [facility] Test 00:00:00 (12+) [code = DEPRESSION Med ical Center SCREENING (12+)] Future Scheduled 1999 Screening for malignant [facility] Test 00:00:00 neoplasm of cervix Medical C enter (procedure) [code = 795790513] Future Scheduled 1999 Screening for malignant [facility] Test 00:00:00 neoplasm of cervix Medical C enter (procedure) [code = 195460539] Future Scheduled 1999 Screening for malignant [facility] Test 00:00:00 neoplasm of cervix Medical C enter (procedure) [code = 336835915] Future Scheduled 1999 Screening for malignant [facility] Test 00:00:00 neoplasm of cervix Medical C enter (procedure) [code = 995935694] Future Scheduled 1999 Screening for malignant [facility] Test 00:00:00 neoplasm of cervix Medical C enter (procedure) [code = 649689550] Future Scheduled 1999 Screening for malignant [facility] Test 00:00:00 neoplasm of cervix Medical C enter (procedure) [code = 002018272] Future Scheduled 1999 Screening for malignant [facility] Test 00:00:00 neoplasm of cervix Medical C enter (procedure) [code = 643225374] Future Scheduled 1999 Screening for malignant [facility] Test 00:00:00 neoplasm of cervix Medical C enter (procedure) [code = 392634326] Future Scheduled 1999 Screening for malignant [facility] Test 00:00:00 neoplasm of cervix Medical C enter (procedure) [code = 795375836] Future Scheduled 1999 Screening for malignant [facility] Test 00:00:00 neoplasm of cervix Medical C enter (procedure) [code = 141854516] Future Scheduled 1999 Screening for malignant [facility] Test 00:00:00 neoplasm of cervix Medical C enter (procedure) [code = 004226873] Future Scheduled 1997 DTAP/TDAP/TD VACCINES (1 [facility] [...] screening Medical Cent er (procedure) [code = 828319661] Future Scheduled [address] [...] VACCINE Med ical Center (#1)] Future Scheduled 1978 CT Colonography (combo) [facility] Test 00:00:00 [code = CT Colonography [facility] (combo)] Future Scheduled 1978 Screening for malignant [facility] Test 00:00:00 neoplasm of colon Medical Ce nter (procedure) [code = 914549045] Future Scheduled 1978 Screening for malignant [facility] Test 00:00:00 neoplasm of colon Medical Ce nter (procedure) [code = 159280832] Future Scheduled 1978 Screening for malignant [facility] Test 00:00:00 neoplasm of colon Medical Ce nter (procedure) [code = 210227119] Future Scheduled 1978 Screening for malignant [facility] Test 00:00:00 neoplasm of colon Medical Ce nter (procedure) [code = 846384668] Future Scheduled 1978 Sigmoidoscopy [code [facility] S[facility]] Medical Cente r Encounters Start End Encounter Admission Attending Care Care Encounter Source Date/Time Date/Time Type Type Clinicians Facility Department ID 2021-09-30 Emergency [facility] [id number] [facility] 2021-09-29 Emergency [facility] [id number] [facility] 12:33:46 [facility] 2021-09-29 Emergency [facility] [id number] Univers 06:13:55 [facility] 2021-09-29 Emergency [facility] [id number] Univers 06:12:05 [facility] 2020-05-12 Inpatient [facility] [id number] [facility] 00:35:00 93 [facility] 2020-02-17 Inpatient [facility] PRE[facility] [id number] [facility] 15:56:00 19 [facility] 2023-08-12 2023-08-12 Outpatient Itzel FITZGERALD [facility] [id number] Univers 13:00:00 13:00:00 [facility] 2023-07-15 2023-07-15 [id number] Univers 14:30:00 14:30:00 [facility] 2023-06-24 2023-06-24 [facility] [id number] Univers 16:10:00 16:10:00 YONAS [facility] 2023-06-10 2023-06-10 [facility] [id number] Univers 11:30:00 11:30:00 [facility] 2023-06-02 2023-06-02 [facility] [id number] Univers 00:00:00 00:00:00 Yonas M SPECIALTY [id number] [id number] [id number] Ak maryam GAMINO [address] [place] [address] 2023-05-28 2023-05-28 [facility] [id number] Univers 00:00:00 00:00:00 Yonas M SPECIALTY [id number] [id number] [id number] Ak maryam MARCISamina [address] [place] [address] 2023-05-28 2023-05-28 [facility] [id number] Univers 00:00:00 00:00:00 Dyllan SPECIALTY [id number] [id number] [id number] Ak dical VICTORY 198 [facility] 2023-05-15 2023-05-15 [facility] [id number] Univers 00:00:00 00:00:00 Yonas M SPECIALTY [id number] [id number] [id number] Ak dicblair COVARRUBIASY 198 [facility] 2023-05-13 2023-05-13 [facility] [id number] Univers 00:00:00 00:00:00 Yonas M SPECIALTY [id number] [id number] [id number] Ak dicblair COVARRUBIASY 198 [facility] 2023-05-09 2023-05-09 [facility] [id number] Univers 00:00:00 00:00:00 Yonas M SPECIALTY [id number] [id number] [phone] Ak dicblair COVARRUBIASY 198 [facility] 2023-05-03 2023-05-03 Hospital [facility] 1.2.840.114 [id number] Univers 14:33:59 23:59:00 Encounter Yonas M PRIMARY 350.1.13.10 [place] [id number] Ak dical [address] 2023-05-03 2023-05-03 Office [facility] 1.2.840.114 [id number] Univers 14:00:00 14:10:00 Visit Yonas M PRIMARY 350.1.13.10 [place] [id number] Ak dical [address] 2023-05-03 2023-05-03 [facility] [id number] Univers 14:00:00 14:00:[address] [facility] 2023-04-30 2023-04-30 Telephone [facility] 1.2.459.485 [id number] Univers 00:00:00 00:00:00 Yonas M SPECIALTY 350.1.13.10 it of [facility] 4.2.7.2.686 [facility] AT [phone] Ak miles[address] 2023-04-20 2023-04-24 [facility] ER Artur Wong [facility] [id number] [facility] 23:23[facility]00 15:44:00 [facility]-04-20 2023-04-24 [facility] [id number] [facility] 23:23:00 15:44:00 [facility] 2023-04-20 2023-04-24 Inpatient ER [facility] Urology [id number] [facility] 23:23:00 15:44:00 [facility] 2023-04-22 2023-04-22 Outpatient Itzel FITZGERALD [facility] [id number] Univers 10:20:00 10:20:00 [facility]AS [facility] 2023-04-21 2023-04-21 Anesthesia Kiesha [facility] [id number] 09:22:00 12:02:[address] [facility] 2023-04-21 2023-04-21 Anesthesia iKesha [facility] [id number] 09:22:00 12:02:[address] [facility] 2023-04-21 2023-04-21 Surgery Mumtaz [facility] [id number] 09:00:00 11:26:00 [facility] 2023-04-21 2023-04-21 Surgery Mumtaz [facility] [id number] 09:00:00 11:26:00 [facility] 2023-04-20 2023-04-20 Travel [facility] [id number] [facility] 00:[facility]:00 [facility] 2023-04-20 2023-04-20 Travel [facility] [id number] [facility] 00:[facility]00 00:00:00 [facility] 2023-04-08 2023-04-08 Hospital [facility] 1.2.840.114 [id number] Univers 11:18:10 23:59:00 Encounter Yonas Arnold SPECIALTY 350.1.13.10 ity of CARE 4.2.7.2.686 [facility] AT [phone] Ak maryam GAMINO 809 [facility] 2023-04-08 2023-04-08 [facility] [id number] Univers 11:30:00 12:05:00 YONAS [facility] 2023-04-08 2023-04-08 Office [facility] 1.2.840.114 [id number] Univers 11:30:00 12:05:00 Visit Yonas Arnold SPECIALTY 350.1.13.10 ity of CARE 4.2.7.2.686 [facility] AT [phone] Ak maryam GAMINO 198 [facility] 2023-03-29 2023-03-29 Orders Doctor SYLVIA 1.2.840.114 [id number] Univers 00:00:00 00:00:00 Only Unassigned, DERIAN 350.1.13.10 ity of [place] [facility] 4.2.7.2.686 Jose [phone] [facility] [address] 2023-03-27 2023-03-27 Outpatient R [facility] SOR [id number] Univers 09:19:00 13:42:00 [facility] 2023-03-27 [facility] 1.2.840.114 [id number] Univers 09:19:00 13:42:00 Encounter Yonsa Arnold [facility] 350.1.13.10 ity of [place] 4.2.7.2.686 [facility] [id number] [address] ([facility]) 2023-03-27 2023-03-27 Anesthesia Ashely Myrick [facility] 1.2.840 .114 [id number] Univers 11:08:00 12:53:00 Event Antonio Monroe SPECIALTY 3 50.1.13.10 [place].2.7.2.[place] [phone] Ak maryam GAMINO 020 [facility] 2023-03-27 2023-03-27 Surgery [facility] 1.2.840.114 [id number] Univers 10:55:00 12:38:00 Yonas M SPECIALTY 350.1.13.10 [place].7.2.[place] [id number] Ak maryam GAMINO 020 [facility] 2023-03-27 2023-03-27 Orders Doctor SYLVIA 1.2.840.114 [id number] Univers 00:00:00 00:00:00 Only Unassigned, DERIAN 350.1.13.10 ity of [place] [facility] 4.2.7.2.686 Jose as [id number] [facility] [address] 2023-03-26 2023-03-26 Patient Doctor SYLVIA 1.2.840.114 [id number] Univers 00:00:00 00:00:00 Secure Msg Unassigned, DERIAN 350.1.13.10 ity of [place] [facility] 4.2.7.2.686 Jose as [id number] [facility] [address] 2023-03-25 2023-03-25 [facility] 1.2.840.114 [id number] Univers 16:12:45 23:59:00 Encounter Yonas M SPECIALTY 350.1.13.10 [place]2.[place] [id number] Ak maryam GAMINO 809 [facility] 2023-03-25 2023-03-25 [facility] 1.2.840.114 [id number] Univers 16:12:33 23:59:00 Encounter Yonas M SPECIALTY 350.1.13.10 [place]2.[place] [id number] Ak maryam GAMINO 809 [facility] 2023-03-25 2023-03-25 Outpatient R [facility] [id number] Univers 15:10:00 17:04:[address] [facility] 2023-03-25 2023-03-25 Office [facility] 1.2.840.114 [id number] Univers 15:10:00 17:04:47 Visit Yonas Arnold SPECIALTY 350.1.13.10 ity of CARE 4.2.7.2.686 [facility] AT [phone] Ak maryam GAMINO 198 [facility] 2023-03-25 2023-03-25 Hospital [facility] 1.2.840.114 [id number] Univers 16:10:00 16:11:00 Encounter Yonas Arnold SPECIALTY 350.1.13.10 ity of CARE 4.2.7.2.686 [facility] CENTER AT [id number] Ak maryam GAMINO 809 [facility] 2023-03-25 2023-03-25 Orders Doctor SYLVIA 1.2.840.114 [id number] Univers 00:00:00 00:00:00 Only Unassigned, DERIAN 350.1.13.10 ity of [place] [facility] 4.2.7.2.686 Jose as [id number] [facility] [address] 2023-03-16 2023-03-16 Emergency X PABLO, K [facility] ERT [id number] Univers 09:41:00 12:36:[address] [facility] 2023-03-16 2023-03-16 Emergency Pablo, K [facility] 1.2.840.114 [id number] Univers 09:41:00 12:36:00 Loyda VELAZCO 350.1.13.10 i ty of [place] 4.2.7.2.686 [facility] [place] [id number] [facility] [address] 2023-03-04 2023-03-04 Orders Doctor SYLVIA 1.2.840.114 [id number] Univers 00:00:00 00:00:00 Only Unassigned, DERIAN 350.1.13.10 ity of [place] [facility] 4.2.7.2.686 Jose as [phone] [facility] [address] 2021-11-16 2021-11-18 Inpatient ER [facility] Urology [id number] [facility] 02:50:00 15:40:00 GRAZYNA 2020-12-25 2020-12-26 Emergency Brit, TRAUMA 1.2.688.026 [id number] 18:26:00 04:04:00 Yonas B CENTER 350.1.13.10 4.2.7.2.686 [id number] 014 2020-12-25 2020-12-26 Emergency Brit, TRAUMA 1.2.440.272 [id number] Univers 18:26:00 04:04:00 Yonas B CENTER 350.1.13.10 [place] [id number] [address] 2020-12-25 2020-12-25 Emergency Harkey, [facility] 1.2.643.815 [id number] 10:03:00 18:22:00 [facility] 350.1.13.10 League 4.2.7.2.686 [facility] [phone] [address] ([facility]) 2020-12-25 2020-12-25 Emergency Harkey, [facility] 1.2.867.937 [id number] Univers 10:03:00 18:22:00 [facility] 350.1.13.10 it y [place]2.[place] [facility] [id number] [address] ([facility]) 2020-12-25 2020-12-25 Emergency X HARKEY, [facility] ERT [id number] Univers 10:03:00 18:22:00 [facility] 2020-08-17 2020-08-17 [facility] 1.2.840.114 [id number] 06:29:56 23:59:00 Encounter Roshunda R SPECIALTY 350.1.13.10 CARE 4.2.7.2.686 CENTER AT [phone] [address] 2020-08-17 2020-08-17 [facility] 1.2.840.114 [id number] Univers 06:29:56 23:59:00 Encounter Roshunda R SPECIALTY 350.1.13.10 it[place]2.[place] [id number] Ak amryam [address] 2020-08-17 2020-08-17 Outpatient R PAM [facility] [id number] Univers 00:00:00 00:00:00 BETTIEA dariay o [place] [facility] 2020-08-17 2020-08-17 Outpatient R PAM [facility] [id number] Univers 00:00:00 00:00:00 DKNDA garrett o [place] [facility] 2020-08-10 2020-08-10 Telephone [facility] 1.2.255.264 [id number] 00:00:00 00:00:00 Dalia R ACTUARIAL ANALYST 350.1.13.10 REGIONAL 4.2.7.2.686 MATERNAL [phone] & CHILD [address] [place] [address] 2020-08-10 2020-08-10 Telephone Pam [facility] 1.2.618.002 [id number] Univers 00:00:00 00:00:00 Dalia R ACTUARIAL ANALYST 350.1.13.10 ity of [facility] 4.2.7.2.686 Jose as MATERNAL [phone] Med ical & CHILD [address] [place] [address] 2020-07-26 2020-07-26 Office [facility] 1.2.840.114 [id number] Univers 14:44:48 15:48:25 Visit Dalia R ACTUARIAL ANALYST 350.1.13.10 ity of REGIONAL 4.2.7.2.686 Jose as MATERNAL [phone] Med ical & CHILD [address] [place] [address] 2020-07-26 2020-07-26 Outpatient Itzel OROZCO [facility] [id number] Univers 14:00:00 14:00:00 BETTIEA garrett o [place] [facility] 2020-07-26 2020-07-26 Orders Doctor SYLVIA 1.2.840.114 [id number] Univers 00:00:00 00:00:00 Only Unassigned, DERIAN 350.1.13.10 ity of [place] [facility] 4.2.7.2.686 Jose as [phone] [address] 2020-07-15 2020-07-15 Emergency [facility] 1.2.189.264 [id number] Univers 13:25:00 19:02:00 Dhruv Velazco 350.1.13.10 i ty of [place] 4.2.7.2.686 [place] [phone] [address] 2020-06-14 2020-06-14 Telephone SYLVIA Shi 1.2.840.114 [id number] Univers 00:00:00 00:00:00 Kaylah MENARD 350.1.13.10 i ty of [facility] 4.2.7.2.686 [place] [id number] [address] 2020-06-12 2020-06-12 Emergency [facility] 1.2.840.114 [id number] Univers 15:56:18 17:25:00 Andrew Christian 350.1.13.10 i ty of [place] 4.2.7.2.686 [id number] [address] 2020-06-11 2020-06-11 Emergency [facility] 1.2.096.863 [id number] Univers 21:45:46 22:38:00 Dhruv Velazco 350.1.13.10 i ty of [place] 4.2.7.2.686 [facility] [phone] [address] 2020-04-07 2020-04-07 Outpatient R NICOLE [facility] [id number] Univers 13:30:00 13:30:[address] [facility] 2020-04-07 2020-04-07 Telemedici [facility] 1.2.840.114 [id number] Univers 07:52:01 08:22:01 ne Visit Elo Anish Christian 350.1.13.10 ity of [place] 4.2.7.2.686 [facility] [phone] Ak dical [address] 2020-04-04 2020-04-04 Emergency [address]504 [facility] 16:52:00 19:36:00 DAVID 2020-03-29 2020-03-29 Outpatient Itzel FOY [facility] [id number] Univers 09:40:00 09:40:[address] [facility] 2020-03-29 2020-03-29 Telemedici [facility] 1.2.840.114 [id number] [facility] 07:59:20 08:14:20 ne Visit Chris Velazco 350.1.13.10 ity of [place] 4.2.7.2.686 [facility] [phone] Ak dical [facility] 059 [facility] 2020-03-22 2020-03-22 Emergency Shun Benedict [facility] 1.2.840 .114 [id number] [facility] 02:10:55 13:40:00 Sanjay Lind 350.1.13.10 ity of [place] 4.2.7.2.686 [facility] [phone] [facility] [address] 2020-03-22 2020-03-22 Outpatient X DIOGO [facility] [id number] [facility] 02:10:55 13:40:00 [facility] 2019-08-07 2019-08-07 Emergency E MHCY [...] code = 104) Surgical Pathology Report Case: [id number] Authorizing Provider: Fernando Pandya MD Collected: 04/21/2023 10:34 AM Ordering Location: [address] Received: 04/22/2023 08:42 AM Service Pathologist: Quyen Aguiar MD Specimens: A) - Omentum B) - Soft Tissue, Other, bladder injury C) - Foreign Body, foreign body for ID DIAGNOSIS (test code = 3220) z4aehYWeNNVoa0czNQCbnOXjIyUuEsYrRqPuRq p tzOSqSHknffAnAQyeqDqkVXDnSJNyME1lsPrhxK x8lXrcUPKprcD0wTBbYIwps0zrNWB4q2byniefL TQuBPuiNk2goQQkyTpsZmIjQYNgTOi5uW68KEKy kL2gxBVmKXi6UDUlzNVshfBbXfGkSEBfmRRztKK 0IYYhNJ9exosiYHkzVMlkGGBuhmR4IWMrfCCdI2 PzGKFkJL8zdcweOOB9YXkdZEUsZES9ViEcRYMzq 9Xgvkt5CjVehGJvNOlzxMXhxicarkVmMUCfYL8Q PN4LTV3zYMQSS6FADVctlWKfFTCmFqSgFtwRUi2 GDKzDF9JSMSCXQ9LJWMUFTECQUQMEWIWJSWWKXD MVXNRAFktAKZiWHcfPFT8NVHuSGcIKAaVkQcmNX lqGQHVztormTVHrSi7gRLOWSkSRORGTLNIAMMCM ZYNXX0WADHxeI8fVGJGTD4KnO9KXF5mOCNKPLNM EHHVTQ5fDRlujdRBgXFVcSwAoTPPHZaUUWWPLVT SNZDGIBHDOQ7VROLMJBUBMMAGVQHANLNBIOHDWZ YUMIyzQQBaAJpoEOD8LMYmOXtomZGVBW0ONHJPU JQpkqOVwPQTbOmKiPljOWowYDNYEYYJDL8LJLBL DHGBER2AIL5nsYENxJWMpFPXeMUHfHHKjNY9HQa 7RJHPGIQLWCJ2QB71QMZDQHKSSKSSOFNLISAXUB ZXDA2KWJZhEFBdrC9aYBvoFY1mvKVUkcICaEFOp YTBAQA4GVqkgZhlKDYEGYuvjCu7IXAiUVfVXX8O OFURJBK9XHnHLZLTntpzryArtRRWbHw9WOLtCMe JZU9VZUGrXF3ERKYmkNIPZHxAXNrdDEJJrSYqYS CYBCIEKHTBFJs2DVvVVNSEEBsjWTJyUKirhqBIz eLalydSuVXtvc0KjKQtfNHMfQY3jmJfgUWQbPC4 aCDIzG0rvtF1dide9EqVfZIIfBeJ0DMSmhwW3St u3OADyPOcxs5ldz7HsXCGjMEv2kGdcEqWbAHCbs 9vmwnBgUdWyTVOaGZTpBSBhtFFhN087n9lfy2wn cuFoyLK8QVVoOHQ3VVbrpbYgdtS8SEbnsUCtZeN 5WJevqtSxNGpkbnRorgWnFar3ZCTaX074IQK4gF tgh8gzTSG5XTTiIKAjHuNyKd5smFQqW070PMPfF VIGURFmrEq5IMDzncVncaCeoLAIs992P789s4vm RPBhqdFufCnTufcjp0yhF609VFNfdGGgotVlVeR oIXJjtTDkeSJ5NEJwXT0csroaOYbfHAtgRKXeah D3NVZftYMjZ6PvBIMuAZ3uofleZUF8GSivSHUkC VS9JiVfVRIdu4Kdzhm6VwJvsj9zpe74ZJV5w0Sn dRbiORL6OIK6HlUyOt0qtWWrMHPfON1wAyGbyTM vBYLdld98pQtcJKsdBCP5UESjvgEby0Mje9bcHl GoovVxR9zfO4CwOZWeSFGbQRVpHvBzlyDai7Shy 5CijGFucYu8m2neGUHyPXVziOmrn4xgZOQ5PMMw uKEhZ3pqeT3xHABoGO6nldits2cpBLvyYLzfZTU oxCD1iyU8QKRvdRCeZ1JdzB0tIDQcCBnlKDPeai w0UzBnJq5ymBZnoHzwNIicZpyaQRoqAOUwofSlb nRccGduZGVjXHBsYWluXHBsYWluXGYwXGZzMjRc cWxcbGFuZzEwMzNcaGljaFxmMVxkYmNoXGYxXGx pB0wqVyWpKbMyNfi4UDHscYRkXNHmKol3NYWgqL PbKPMQwIkpfC1gGFJmfMaagC7xhQL5CVBuwrUey IPFnA7xLITWvK4dSyR9MXLrUao4KMH8IdNanXCu fX0= CPT Code(s) (test code = 3357) o3rsrUJqXYPwdDWaNWNiZGtaxiPuFEFjiVDd Z3B rruzyULetZV7cTY5ugTwdbZQirNLxCIQpEwDok8 hzp472eWKnz6daGEZRyrpqxFw1dWgdF13al4K4P earH64mzTRqHTN7IZHbAWJofZEzWZBcHZR7BRTr kMMvR1gnDUYpNO1pavyqRBrsSZkiZECczIB6SIY hmYKwC6QvWSXfGJziYBRwtlr6AfErMs4ggHXpxO bzFTcjXBEmFMEqGQcmRDYpGbVdUU8lRVzcQNCsG ZOzaKYcSSNuBSb8SfY1LGfqXPXaccQJSjK5NQWo MCBYMVxwYXJ9 CLINICAL HISTORY (test code = 9480) i4bsyHHdHECohHKxRJLlMToaflKyKWU tlYNyV7K gobuuXHdgLD2vYI9edOhvzDTyhPCpVBJlNuOoe3 fqh589cTTxv8fxBTMHglepoAm3hUehQ46vv8X7A vjrM4jkYAUcZLgoMZWrJBnntVNaTQc6PYHqiQQl swNjKjFbTBWbsGXkePD1SPMeTH7oduupNDvvNGt qVGIiusU6XOHcvMIoG2FqFPCwHX8gdfgsZRA9NK toEEYmVYG8JfUyAWLkf7Zgxgj3GmMyvPDfIJbaj URrqTytgU9hJbDiQVbbHsQpDu7zIXwahvWpd7G3 IGluIGJsYWRkZXJccGFyfQ== GROSS DESCRIPTION (test code = k9emuSFgZTYosRCbDXXyQQruafDtTKMbbTVj Z3B [id number]) jdaqvAYmdAQ1rYF9ssEctkRPzqHLcYMNlZnYef2 rmx280zLYyv2ttWKOZruqqaSq3kIsgO04lv0W2X ltrZ13jyFSfJJR2NZUpHEDtvMPaITHaXCZ0GIDl pIIlT1reVKRyAN6prynnXBrtPEyyDNUudHD1BCV bxNYuT8RuKRXrXOnvPIJtvwj1CjPnJc6jbTVocL xjDAelDlsiqGnyv5OlyFDwYRnsUTLqEQKpJPflJ QSlJ6VYBOGpGXXgKClgKCEuIKSLDOKpGLr2GJi7 ZZSZZXEaIHSiZFq3GlFlRGCfQDRYHGKpEiDrUYX oWSveWCdrkPZmBPNxFVLxXKRmXXruehL8i6ojCG UdtFCnPWK0IYndsSCyUJAhHRDgTSfxJuWMZgYvP fYtSDDlNZO4ZnJdUEt6YBstH7WFVMLnVHB5Riom OUZ4YwR9FGv5EOSLHo7lGiR9UfW5HcDdDOJ2YIG 9NJodcIAdHNdtl1IjShCaGOIuPNqfssP0XWWiog LegGrsxI8wNtHkKiZXWkTWbGAfjCEaTCGlucmtN GYeMAFkPqAzWMCvT2gmRmQdAQYxFvNlYPVdH4nz XNGbNHTuWXquDGZvSmVpAgJkBEw6SBMgaT6xYg7 qcPDruS3fjCHpPXbyOVW4zVTjCFPiXOEsRXVwLW 39S6QvsfVmMWuqRPLaBWYgaA7aHP51pVRbfaUsg yUoSa4oTN06zY0cLLkfERUlQm97GWhsGK55TLzm LV33GXGyYIGlinEob89bc9UkeWSuYLzbzPbrwbt bKrjutm3rGOY3kQIefTAjnHIiOFnfkFomYUCuwQ Khh0PuFV0xfW21NE3oOTCwlXMdMC97ZOJfPmZbw QPshUmuohGgKJd5HLN2PY0lMUEaT7Dva05rxmdd dtR8UPEnmzOjZUNhhm44KItvr7bzzE2fq7mwgvN suJGkKWNySeNnWrL5mYctR3D3GGV2voWjQ4DhZA GEncNmgSAfrfH7ARXzTIPvn29ePYYkYKAjQIGfs GlmaWVkLiAgVGhlIHNwZWNpbWVuIGlzIGVudGly JSt1KAH9Td0udTWtIMDpyxVLXE95KBYqaPShZOU 3EQ8woRxpGBX0YNhmRMAcL4KyF1PcUCdkSAU3SC QgRmDfJZWwHE1UVmPbIJNhBMR2BotjMuC7QUd6W TUKEzGvMtDaIjUdTZPtDvPrEIi5NSu4UHcXDpY8 Gdl1BuF8MnXvGEB4RLXyWUs8BAQzMUwkrgSmOAt jSlkvVUmqB91ufLCtVBrkYvYzCJxpjQweGCDuEW H5ZLHoYpAcNk6xY50qiUKNlLWlmUBtNM03bUFiZ RSqzxpyZYIvKFVfYoDhOUWqV8ynAfVuNBHiQSxp FHLoPlKrVnEgQDq6QRExwU0sHj1mdYYsdQ9ivZG jYCmzOSS5rSOpAGHcEIExPPRrVQ79D9JrvbNlRZ gzBCStXWQdiS1aKT99lXOebxIkykSmMaMvMGQzI IFzqK2jgDY3SrUwwfNxWfA3zf7nbAZtqAViSDRa QRauLE24uoOcIqGvsQVmvYTskJolfRZeh2SeySR orWFnWwacUIBoskEedTCkj8JjoDlodKYpXC0yZO Fkkc9pIAMeVR85KgXrX90qqS5hJ8DtODSrh5IrI AggJV5bqE9bSuZyDKlzQZPbMIcqPQ42jcUuraOe OIrzKuRbYR34tTRprFepeO1mCTXrVhm2LBpfLpm wD0uiZX1nHIarSWSlQlBoV7RyuFlimidqFsJhUO MrWTalXRSknLTeRFSqdajnELCsE7XezMlilAJmp 7GkuYCjuRMkSUjcwQCjt9csldFycUGmZHWsBeOp oTEvM5D7ECY8zyPeA0GfHHOYxFIhk5VbT5oxJE3 oyRWlCP81fWDkgQbrc1CvqEt8jZImXBTlYAYcdH skd8S2IBXpshehJTMwSZEcyaTGDXR4lL9sWAQwT JOgnCBsYFZlTcXzBLGsXCirVE93XXJvKJWyMOkd kEEfYTK0tO5sGMIkpFTrIYAtTJJ3MxGgCAUxCMc rTZ69RSJuDZMsPDpyoQQiCUO6uX7vDNRwsPYkEN UzVoNzSJEaE3tqGSIfVDD2WqBbWNYxFAmaMF18i 2tplEnod1BshPMpLH1nmDXja6raOLPfvCJbZQJ3 IFxcaWQgNTEwMDIgXFxkYiBPVlIgIiAxMDExODI 2PvFlXAp9CBjdD0XJDORpGTL6XziwPttgIvR8KB s3PXXJGj8iOhT3KrN3JmO7OFQ9PFM4EFicxMDoL Uljp1KvMbRbMLRsBFscdsQ1UCPdhvTgc3OlSZEc VMAqS0veLiTdBFflikFsOKBcTIBiwcCpW18xGu7 taCzzKXOcsNMpSEygVzHaTREeqUPOb5BrUOuxxS MjkgdtilXeGYFtT8RragYaQZRrDLXqUWlxGiRbI PCns9t3uHI3dXUhvRG5rQOckQjfTV8aqNMsPHPx C5Chk9furiRykH5kJHSzHQ7oCXYxi3PqtAwqANU kRQpuVScnODMaNLCnEaYmnXVwuiOkVC1pwTbkSz smPG7eJMEqYVKcaVUcvpSqaNXwMQDhvsButSFbk FNiXMN9aFcoEWAvD7ZfFGFcxrQgG15rJo3fqBLg o21vdCZ2YG60GOtwqWtkbUWpG0HvKGB0pIB8NQD mk5FdNNjaZFEeHLFnl1drd3hwkpzdvP6lK8DorQ Hdk303EVIvzfqsTGPfLOEnlgMNQ0ULPwzWCmtbu CMiXBsyd2lwxCIlbFmbHSKyNtXRIX5OKNSwhgia NVWeNAAofa6zarVmrT63e6lsJUKfZLnkKLTsq6W ySrGzPb0cp0XlnVqvdhBcVOGwDDC7Un1loSItSA 1tKFKooKGvbQQzeBIbehBwr2EgT9Fyc2MqEJbhh YywOKYxo78hl55lvF8zxCVlAXTqtmiyEIUoJQPt lKUVw2NlTVTJiHlncwWJenn2SZnbBQQbEOPXDZB HEQDqQLTQTNq0KKEdbDTbXUX4PU9ufFwxTHPtR2 LbA0BmvwA3ARFphj5= MICROSCOPIC DESCRIPTION (test code = d0ozaLZeSDGytDKcWXCyOXuwkzKaLH DdcQBpK6I 3371) nqoruQDhpGP1yFU3ooXgaxJIvsLFlGZRoWcAoq1 mwq329kQBwc8vgFXAJivhgvKy1yDogE44dk9G3F ujiM74brGNqJPO3TKDlATZkvRDhDZXaHDR1WGDj aSRjR1ryJZPzMB3lgilbMQzuXPjnUWGmwTT6VII riKCjU0XeOLVwTMmnCIUntze4XsHgJe6xnTVscI ufJJkzVZEzLEAjZQeePKQhByKgNM4NTgNOZMBsp 8YlUZVuXYgmXVDgtFVeGCSgJZ6jvAZjbMTehSXv YmxlLlxwYXJ9 Gross assessment was performed at (test [facility] enter, code = 2777) Department of Pathology, [address] [place] [id number], Technical component was performed at [facility] er, (test code = 2778) Department of Pathology, [address] [place] [id number], Professional component was performed at [facility] enter, (test code = 2779) Department of Pathology, [address] [place], [place] [id number], [facility] [id number] 09:04:09 Test Item Value Reference Range Interpretation Comments Case Report (test code Surgical Pathology = 104) Report Case: [id number] Authorizing Provider: Fernando Pandya MD Collected: 04/21/2023 10:34 AM Ordering Location: [address] Received: 04/22/2023 08:42 AM Service Pathologist: Quyen Aguiar MD Specimens: A) - Omentum B) - Soft Tissue, Other, bladder injury C) - Foreign Body, foreign body for ID DIAGNOSIS (test code = [id number] 3220) FuZzEwMzNcZnRuYmpcdWMx IHtccnRmMVxlcGljMTAyMD MmDY5zpQerxRt1uVnnDQWd ikQ7kTBrXMwxc5caGTD4n2 ecefvrFRAxLUsyEn7ccJOy jYxwBrDyRSViZZz4gN04KP QhaP3jxUGvQRt0ZVRmjHZs snJlGoWiZYFziFPrjMG6ZZ WiKP9tnkqiQTiyKNwzIUCh thP5QCVztVGhD3QsKXPeBG 2ssjvhTJZ8GJwqRPTqAEX3 UiNiJSAsb8Zpiyz6SiRirF FyZFxwbGFpblxmczIwIEEu XM6TWZ1MDV2aIDVVF5UHDM chdCTfDDRjZiLhUwiNKu6A OXgTM2TNRRALJ4XRPZLSLG RIIEFDVVRFIEFORCBDSFJP KqdZWRpWTqoZLW8MNLjJFm BBTkQgRklCUklOXHBhclxw YMVmRx2mQOWFApODJLDEHT YELHLYKEENE1BIXAefH5vD WLPSP3EcZ6VOB6dVCBSGMB PSMNTNK0dJUwanzAGlRRZa YiAtVVJJTkFSWSBCTEFERE XFUEKYL3FLTMKIBTYAMDMI VVRFIEFORCBDSFJPTklDIE gVBoeZMG5XUOoMCodxVWRO B2JQRGOUBRgrwYUkIFVoGm DnRwyXBdwTXDLBGKNJU8ZO YEXTMBPTK5TXZ3mrWLOiFW BqFCLrMAMyJCOlVM6DGc7J MNJRJZGWES0OR42JOJMAXG IZMOLZYTYHUKJOYVVUP4QD TUiZORbqI3yPYwgAJ7qyYX HbgNObYHFpLIKTGB0CEjgo VbxTVMVKUvcdSi9XLSfAIc DDJ6WRKPUXXT7UZuPVTMQg indktFknMVKkBr7GAPeOAn PDD2JJRUlTP6IGOTgtXYRF TlRJRklFRCAoUExFQVNFIF QFKQFEUm5QXxPRSBGFEiiD VElPTilccGFyfXtccnRmMV cql6TcZVucDEXhTU4ssPle ZKVkYU0xPPZjQ6hioO8ulm z4EgXvWIZkWsT8INQjqqM5 Ixd3VPXsGQhjq5cpb6ZzFZ PcPCx4jLcuTsEmHPYyi1ob cyBcZmNoYXJzZXQwIEFyaW QfJ636j7atu0wlpgMvaMC4 EGPfVMK8NTtfomRppbZ5NH qgjBMfBbG1BHmnesUiDHqg eyPdxrXtNje5ZSWeF813GU B8hLhhg0puUCJ1ONOkOKDh KlRgQy3nvLOdW517MWRrQZ BALGOxrSx1XVXaxxOtizTg zMJYq707M355a9uuREWvnp PydQtLthrvs9cnG111EBJm cGVydzEyMjQwXHBhcGVyaD K8MBGhCB6ylgniXIniJZlo IBVnhsA0XSCjbJUkX7ChSC AyST0yceekOZK6HCvnOISo PAU9ReXcVTSsr6Ldxhx7Pl Jrnv3hie10XZH7q7OrbQec VOA2XIG1QxKkXk4rnLMoUT RmMG9wLsImoGPwIBGdcy50 dBxwGLknQPN6AVTebeBzr9 Whg5xrEiMitcOxG8arO1Ra ZHJoZWFkXHBnYnJkcmZvb3 Hff6VorOEpmUk6v7ghAIRi ZTMzxPboj4liGOD2SDElyL MlZ3rygW6kVXYzVA3ezmfs a6krUKrfUHzhCMLvtQR8qx P0ECBzqSVuB0UbkK7rCDWx BAgrDDPzxzf0GjHlHf2tzY VyeTcyMFxzYmtwYWdlXHBn bmNvbnRccGduZGVjXHBsYW luXHBsYWluXGYwXGZzMjRc cWxcbGFuZzEwMzNcaGljaF sxPMybChXqOUStZIjxB6av WlBrQmEwOji0KSQtjZHtVU KuIla5WFQqiLUbBNAZnXzi xY1sWAGkpYnyaT5svQC4VI RebxMllMEPuS5xFWGCxF5e ByZ9TKGcNuh0YPS8OoYrwK FyfX0= CPT Code(s) (test code t6vnsHNcBIBwbICwCUAnJV = 3357) fffoOcUJFlrNSoY4Tqskhh JHjyTD7dOU4bvCoeoUYslP ExCFEhDsSft7gtb685wJTx c9kjJUNOimtieSr5nQjvL0 2bb3T1YptgW01cmJByXNN0 NTZaKRTgcJVvFOTaOAG8SH IgfTWiI9jpQTDdDH3ecjfc BSueHEsdGQVdfNO8KCQqaQ ZdI9MnHAJcBRtoUESoovy0 LpUeMn3htOLqdEqvZHgpRR WnFCYsCLszXVSbGcUgOW7h ODgzMDQgWDFccGFyIEIuID g3VoK0WJmyCNZckmLJRuQ8 ODMwMCBYMVxwYXJ9 CLINICAL HISTORY (test s9hieVPwPALhfQWkFMWxHP code = 3356) isczHqQLGnfZQqO5Foiyww IJqtBX9gKT6amQhafTDsqC NrIZJdJnTbd2kpm765iSEd e5wrPRQGrqjsrLk5lWykY0 1kj3U0SmboN4qcAOOwGLzv HVYnDMqztADfTTa6GJZacE VydzEyMjQwXHBhcGVyaDE1 KLFmXD6rhqgmOYiiHZwuFP IyfdC3OBInxKPvU8QvTRSt FU7lsrlxBLH3LYfmYGKaYT A8ZgAsCJUdt0Chmmh2TdQb kLAsDKfboPDzbXmtuZ8wUd GvIZglBwVzDr4bLFozxtAq e0Y1NSelTQUlXPVtRAStzL FyfQ== GROSS DESCRIPTION (test n0kjdMJwFRYeeMDwUHQuEZ code = [id number]) tgzrQpXSHqhBVcK5Cwuwrz SRmjKB8nFY6pbNwtaLYrgG KuTPLiJrNbf5rjr242fONz x9buLKBBzaxsxRk7tXntA8 0ah7T8AmytC39yxDXqHHY9 VOSpYJSaeCAjPTCmHNP3DK YmkDJaY9gpURPaDF3iahfj INhnNWwcXSUsuZB0NLWgkW UhJ9PrQYKkOUjoUGJwrvb1 YvPoGe1xiOKzsHxyKAaxTe wjkSrwu5GcsHSfXWkmLJRz JGMtVYdoUMNcQ4BEYMOcCT AxMTgyODIiIFJFUSAxNTk2 WUb2YIRBCSSeUGCrMEo5Sx UyMSIgTFJSIDEyMzAwMDAw MDkgXFxuaCBcXHQgMSBcXG KlSBhugxY3g4wnMAHtiSNw XJY6TSyydAIwUMWeGEDtVB xkYiBPVlIgIiAxMDExODI4 DvPtIJd3HGiqU4BSXQLmZB O6OqqlTZO2YmN4VNs0MBAK Pt8vNrH3DiV3ZoOqAHA4TD G1GUychBOsSMxtw0ZqFnXa EFZrGSsnujP7ZJKuacXurU zauQ0mNjTyXxSXMlCNiRUb dHVtXHBhclxwYXJkXHNiMz JiCKImI4gsIqXoURTcWbWm SVXpY1kiAKIaWPCjIDdeAO NcYoApQaHlIXe1NSEawZ0h Eh6kdXRswV0vmTBjYGvnKT O9bUCoWAVaNDXlCWIiOQ05 C0IsqvAjDAdsWGDdKIBcbZ 0hCF03oQUjhpLdjhVcEe1p MT70sQ2mURxeJNJlVk78HY xjXN04VQonTQ33YLAmKNQg axYxe32sx9ZxsUMwQJuahO nrjzicZthtcn7cHVB3lTYz bWVudHVtIHdpdGggYSBzcG Tec3SqXS9vsT61CF2jJXAj hZKqLE17FQCzJzEjhWUqwF kvrwRwNCu7VQZ4ZF5qUNCt N8Muq07mqbfpnvM8KIJexh DeIDKmqe01CSaaz0ctgB3h h9pnqzUwlHEwJGUeOxYhQi N1tNtkE0O3FDB6gzLaN2Oy OUYKakEagTVpqgH2GDFcFM Hwh17uKDDcNMPhVAIawKph aWVkLiAgVGhlIHNwZWNpbW SrURclQFDgbVctSHc9MLX5 If1hfNHeLXLwwdJANJ48XU JraXUjLJE1BT4dpUtiRFQ9 NQjcFPSpF3YyU0ZpGLacKH S2HZDkWxNkONOeOE0EVeSb VHDaAHY7EuvwHaE3DVv2GH BPVlMgIiAgMzQzOTMxNjQi WIz7GKx7YYcNXqA5Ngi5Ii Q0EbGcYVW0BRGdIMl8DTPw XFxzcyAzIFxcZmwgXFxuY3 1ccGFyZFxzYjEwNVxlcGlj QHIhCRM5MIXoSdPzIr2yD9 4srPAVrQMwzNJePS28pEMq XHBhclxwYXJkXHNiMzBcZX JvA2vaIiYeMHQpRKuzXOQz XqMpReTjEPw8NLBtyB9wKe 8ylUSdcO2ykINmZEmxDAB1 hMIbBIQuEZIrYGHvEY44J1 MfhjWqZAtcDXCqETAkeL7a XW59wNPloaIgiwPsJrEcQB SpDSAejE9ufPF9MhIqxuVs OsD1qq7hgNAesVRdJRUbIP nhYY54ooTzNkMsbPBfmDGu yDvkqGGtf4KexSQpjARbOv wgIMGpeeUviAPkk1WmiEha hYLiPD5tZOIhfy3mNMAdOP 78UvLlA92xrK6uP6VxRSTz r6UaFEidJZ2nuP9lTrHdHU btQTYlPKroKN87hkWvmdMq BRlhZmKbRU74sSIetDwsaA 1tXNTvNbm0XEmwFcnfR9vq MQ5wFIosVBEwGdEbO6WqdL lvbmluZyByZXZlYWxzIGEg xZLoFYNqwourFNEyM5ThrT jkpECkv2MheQSejLYbOHdj aCHjm3tdxwCizKWrGSFwGr HttKHmR4L0COU9cvFsS9Rm BDJFlUDmv6WnP0qhAT5faP PlOK41cWGopHsds3OvxDf7 lOXsCVZpKESmhUryj9S1RK BhclxwYXJkXHBhciBTZWN0 cO2sBMNeZAWugVXeYDReXy UzHZFzAZtaBC14EYOqNOBg GPpqsRVdLTE2lM9dAEBdgD EdPGOfZXU9WcPlLWUsNZpp NG06GCYmCUOuDMnqfKPvJM X5eL9aAEVoeSUuXXXdQsNz IYZmW0khYLOrWPG8SyCeCH RbVSpbKO05f4kckBljj7Bl vGMwMN0wlTGrd8dpJIFlvJ JyMGW9TXancBNsCDFsPMFy XFxkYiBPVlIgIiAxMDExOD T2MwEzHTd3KLysA9ZZUTEn LFI9TzwrWvakJcZ3HSv2YV FBQn1xCtO2KuR4XuY0DRI7 QIT6DIgrpJSnQOmxy3WiGk BiYIPxVJsmmqR4ZDWgynLs v8IeGESlNXJsI9duUrVpMZ tpjaSlWBQaBROfhkVmM31p Vx5guBbgJXGoyDYnHAdkQv AvSYDpmOECm8MdYLiklATj hozbxmAjOXHkR6JwpgGnMP KkQFUfERtrRaOqGKKxa7k2 zKJ5eCColMZ9eYKmpWzfPR 3ylBJqMUUuE1Ufq0nwkiXs dS3dKNGkIV5yDLRka6OiiV duIGJvZHkiIGlzIGEgMTIu FfHayQPjepLcOL9vqUtcWj lkJQ1lOHJoLNTmlGFgwpDh aWFtZXRlciBwdXJwbGUsIG F4hKvoCEKbP8OgTJXyxyYd A35rJh9egXZue35puWE1PB 69MJhnlUuucRYmS0GdSYC5 aUN6HZMfy0CtINibDTFgYG Ffq4qiw1uailzsoT9iR5Cq sKAdv311GYCplndsWQTbSI IvafBIV9HKZddXNynvoUAn SWowu1aldSHpkDjgPRMvFd MUZG9KBIUctnwcFANfLLIq yo9rgcQzkW19o7urNIOtDK xlVEUcm4JgHoKwHr5dc9Se qHvvzgBtQGGaNKJ5Sh0ffE KaZN9xUIFgiHNijIYcsMRb tkAja6ReD0Lnc6QzQKgexI ceSIMuu47ab31gwB8ttCFd XHBhclxzYTMwXGVwaWNYc2 UbZHJItXmhbpGPyki7FVhf ZXMsIFBBLCBIVCAoQVNDUC r2IFJacOEwKGG7JD4eqIqq SPWiE0YqB3KuqaU5ZXBilm 0= MICROSCOPIC DESCRIPTION e1jzkTXbHGUvbGXyVYDsFN (test code = 3371) moosJtJDIvxFEbV8Lbzwzm HMfrLA0cXW8qpJbpiKSaiL IcFREjGkYgh2rmz017pAWe p4ieRDKObmbnxYs1dNthL6 7od2W4VrchK31fiJQgODC3 AEViBGTrcTInCQImCIE3GM GzoCTkW0tzWTTjDE0vnjsl QQipHMhoQPZllBI0EGCwaV FzI1WlXAKjCJauIEBvnxm5 NsWwOo4znHDavXjjKIkcZG YyFRJpFMjwVIEaEyBkZD2N BtURROJwd3UqHAKqGUwdNM IbvFFpFPHtTC3cyARdoOQm aWNhYmxlLlxwYXJ9 Gross assessment was [facility] performed at ([facility], = 2777) Department of Pathology, [address] [place] [address], Technical component was [facility] performed at ([facility], = 2778) Department of Pathology, [address] [place] [address], Professional component [facility] was performed at ([facility], code = 2779) Department of Pathology, [address] [place] [address], [facility] [id number] 09:04:09 Test Item Value Reference Range Interpretation Comments Case Report (test code Surgical Pathology = 104) Report Case: [id number] Authorizing Provider: Fernando Pandya MD Collected: 04/21/2023 10:34 AM Ordering Location: [address] Received: 04/22/2023 08:42 AM Service Pathologist: Quyen Aguiar MD Specimens: A) - Omentum B) - Soft Tissue, Other, bladder injury C) - Foreign Body, foreign body for ID DIAGNOSIS (test code = [id number] 3220) FuZzEwMzNcZnRuYmpcdWMx IHtccnRmMVxlcGljMTAyMD RiEB8roSvmxUq9uHspVGKs kxL4pLFiWYbcg4zaPSK4u3 vzjkxdZSAmGTgaJh0czAYw aQqdPsKcUNArARz6qR29SK ZwvU1kuGFqVOw4YLAegGHq xnHaOfNcVGIejSHqeXD7JM WsDK0fdgbeSUhzXSrgJTFv yqM9KNShlBXpV5GbQHJdXT 3sggktREX6YJzvDSRjMWS9 LvIjOGFxj9Vqmec3JjMoqM FyZFxwbGFpblxmczIwIEEu JM4YMH9VHL6aCIOUC4FYQM umqQWcCKXzCwLhSsvWVp7D CPbLX8KPOGYMX9TYYAZEHT RIIEFDVVRFIEFORCBDSFJP KwjYMMzFEcdFTK4FXNfGSr BBTkQgRklCUklOXHBhclxw WYIgQo9lIQYTQbSXQIBRNH DBMHAOECJGH4PJCPzmJ5xR HSHWI7VbN4PRQ6tLZUNVFY VKORSSV1rYQzivlOIyERGe YiAtVVJJTkFSWSBCTEFERE YWXGSCE5UZRLSIOZCVIFEE VVRFIEFORCBDSFJPTklDIE tRItfBLD4MAQwKVfgzBPHG C6MBWSIYRLbhlPAdKPTiPc AfCuoZUrhSPHPBTTKDN6DC TSGUNXCSZ8TGW9irCMKgEK OsHOGdZQJnHCIlBF4SDi6R SXPYDBTZMU2LR65YYENZWO NIPQYFTUBHJBIPKBJFB4EK HXvNCDcmT9yFIupUE4vvSK MbiZWnIGCoQQQKQZ4RQvxt IjmETIKRFugqMh2MFBfDOd RCT0EMGUTDUW3MWcCFRIZd fxvhaSadNOMoVv3QJSbISi JIL0VWSPoOB5UHSWclMJNF TlRJRklFRCAoUExFQVNFIF YGECEOBh0ELjRZCXDBEecK VElPTilccGFyfXtccnRmMV mcz6EmBNkdWLNbTK9pzFtj JTDhZY4nITXfI5wnrU6ruk x2RqTgXWMvQxK4YOCeufD6 Mpw5YQCmAHumj2cew6IqJK HiOEp1xRhrQoYfOMPjd1hp cyBcZmNoYXJzZXQwIEFyaW UfN957d4gpl1bhrmMpsQX7 MITqHXY7HTiuyiNhjlV1ES ggwTOpMwS9NLwkihAuVYvy eeAlkxPyJdb0KNNgE123EJ D6xVagf2mlPHJ5HNCeFGBq SjBzKf8qxXApS588HCEiBZ MWWGZckOn5QCVftnOsreWi mKQLq478R125p3blAFBequ SacQnXkplit8piV409WKAq cGVydzEyMjQwXHBhcGVyaD W3SSVqZX2xbnhmIWliSPmi ZBNvvlA1VNBmdVYyK4ZpRP RcKH7vjdocNDU4WDguPACp JUC9SyPwEPYuf2Rmzxc6Wz Dfqf4svs76YWH6q9UsuEke GXJ0IEX4GdYuXv3ajIHfVF SuHW7cXeGxkPDmWQZnuc07 qUndHTkmOFD4EAXtvqGmx0 Umj6tgMeMjyrZdD3jtP8Zf ZHJoZWFkXHBnYnJkcmZvb3 Ssl1NowMXtrIh1x6nnWZZb DXBifNggk9ahKQC7UKYlfP VwM7offA0vYYLkDS1wjfnn x2zgKBdeRQobJIKnxMQ1xs C7UEAoiVIqE6KkoS6rBHSr GZzxHDPdedl8FuReMh8ypC VyeTcyMFxzYmtwYWdlXHBn bmNvbnRccGduZGVjXHBsYW luXHBsYWluXGYwXGZzMjRc cWxcbGFuZzEwMzNcaGljaF ywOLdaUaCuHCVyANcuZ8ig PaRyChFnMqk9BAMisSIeGG PlBua6ECVlrJWnHFOSjIpz rS2kBCUniVoeiA8lwMF8SU XtnjPlvTLDfF7qVQIQsC5d VcU8BNBvYew9WZB5SgUsiT FyfX0= CPT Code(s) (test code e8bigPJnQAVebNAvDKBfCT = 3353) qtitKrGPJdkDJtT4Ftvyks FUslXN0zNW8lhXcpdNZjgI BcCJNrRdQva6vjx144bVAy q9ozNPTHbvfspMw2iMkyQ2 2ro1Q3HbinV41dfWZnFSR8 PODtOYJozMGwVGXmQPA1UR FfiNMeI6kqYZNgNG4gytbp WKsyZLjsQKDcmCK6PODkhP NlZ1UjMMAgRLenKEMpvrp4 VlRyAh7roQYbiIsrNGilVW HgKROrEFnlBUIpUpXxIL4h ODgzMDQgWDFccGFyIEIuID a9TzT0CDcvSPTyfpJJLzU0 ODMwMCBYMVxwYXJ9 CLINICAL HISTORY (test q8ydaHMwGBOouQFsMCXuWJ code = 3356) kuvbTbXOAppGAwD6Vblqrm CJcmTD6pLU1mnNzvwXZupG KhKISpPrZle5api311qUCf a3xeKICKeujfpCw7vKwlF4 2ab3A8AwudT7kiRPCcKPsj IVJyPSbgpOImHVh9OHNwhI VydzEyMjQwXHBhcGVyaDE1 IVUcTG8qobzyPIsxNNsmBQ UwrrN0ZEPwbXGrU6QuTMOb OZ1btzciDCU3JEsuDXHrUQ V2WuZvAMTht2Jvpvp6CxGa oMQcDZlwvSHkpUjgmN9nCe SjZYqeSmYpBx7xFCvxkkCg a7S3KJlwIPBjTGEoXCGvkF FyfQ== GROSS DESCRIPTION (test z4pplMSyDWJwtEOhNRGuCZ code = [id number]) wrmjQxOZOxyUWnH1Ihjhuf PYjpXJ2pND2pjGygrLYbeA UkATPcCmYaf6luc568oQXy t2bsBVXRtdpytHx4gClsY0 9wi4B2UdwqK25tbGWmBKL7 ATKbRUUcsNBmHNSyJBY0OH PvjCWyQ4gsICWpCW3mmxde KAsyNUuaKBPpgUM9XLWbcF ZjC8IxRAZvMPegEWOwatb9 FdAbXz6jrAEfgXjtAPpvOz mnuYfne3IgbMYnFOesDLXz QPHzCMxaQDLlF2IHUTWvLF AxMTgyODIiIFJFUSAxNTk2 FMy1VGPNNHOmLXQlWBo5Gb UyMSIgTFJSIDEyMzAwMDAw MDkgXFxuaCBcXHQgMSBcXG JcQDskukS3g8qgKBHcmSLj OIC4QAjhwWFkVGYfBCAsSZ xkYiBPVlIgIiAxMDExODI4 XxIaETz9PZeeS1RWDFPrGC N8WoeaQWL5DxN3AOc3CIXE Ds2zPdC2NwC7PpHmSOC0ZU P4EMekxCXgOZexp1ElLuYl OBHsXZnnzaI2VHDbgqGupJ kewH6nCuErKvNZLaCGuUOx dHVtXHBhclxwYXJkXHNiMz QlHPJfB6ybChBbCDNoArHc ZVPcV6oaFHEvQDKwYReuDI IqNvBsLjPbYIn4GMOtzU8r Km8ypMYdzD8vwKEjNOboCI E3cAIkTRHgRSEvXJLzRD90 J0UzolLsPMrhROYaRUEgbF 2yRP36gABpcvYnpjOqFz2i RP14lT5wZVcoFPFxCs57GR zvOE94CApyJI73KDSdKZKo axDwf03cv4RgfFQlYVllbS ulkoduQinzct9jJMY4cQWz bWVudHVtIHdpdGggYSBzcG Zii8QkJO7prE62AJ8mKKNz eVCsRY04ZMMzAcQbbGMhnZ vzteJkIKy8PNQ0CC4jNMZj T4Ucp92jbzyrekP8MCJvdz OaGNKwhs10PMogb2annF2f t7nquoSkfMWrSNMmUzFfXw B1qFudS5M7BWG4suRwC4Jo UZTAweOkdJYxngL3FHOcRX Cig46eGKBvBOLjKLNmgIrr aWVkLiAgVGhlIHNwZWNpbW TzDKuhEYMotMinZGm6OBC7 Co2xzMUuMAYqjnSJET74ZO CzkOGoQPD4RX7yrVjkDFO3 PAprDRWzH2DjX9HgBHgsIX B6JKPmSuTiODCnVT5QRpBt PBNtNFD0KcxcKpT5LJx4YJ BPVlMgIiAgMzQzOTMxNjQi TMj7AKs5NPqFVnI9Uya7Dr S9MgKnTQV4EIUzETn8HDZw XFxzcyAzIFxcZmwgXFxuY3 1ccGFyZFxzYjEwNVxlcGlj CNAsURF7AIEhYrBaOu6iQ6 5olSBHmXTrrGUfTH46dHMm XHBhclxwYXJkXHNiMzBcZX XdJ6rrEhJbJPPvZJrqTAWm VrJqJhJyZCx3CCKixW9tPd 2ivLJatF9htNDjYLfcZJE3 mPMjCAIvXQSxZMXmVA05Z2 RblqGnWWosYTCtHUYosZ0j US74pKYlcePcawUoRvZtKB JjXIEgyY7oxAB8BbHnynAu KuP0wm9drURtlCAxAVMpOV kzTN60klOkJhCtfOGwhLEi tOtkyUVpk9SkrKEexJFwZo yjTAOcvcEofNFvp9QtoSne gEQtYK2jISGdod5yBVGmQM 81BpXtL82wrT7nJ1SgBHIh a2QxOKfsHY9lcZ7sDfYvLX tmFPGpJAegEF69ucGtdgMh QTrrLgWmCZ11dDEyeOoxnT 5qWSDiIos7LZejHafeT3om OS9uQRmhBRUwCrJeY0PjuS lvbmluZyByZXZlYWxzIGEg dUQtKGFjhtfhQDUdB5RjfT iudRJvb8DqgHTltUWmAVho tBElt7mjynByfDLvUQJaBu RulJXeV8K0MAS6uwFdW5Yz SFBLdTVmm2KuI7ieJV2ytR IlYN41bXKymFygy8XbrIx1 lOKdGFHsGFTmnGhpu2W6CT BhclxwYXJkXHBhciBTZWN0 eW3wIPTyAYMndQPpARKgBx PbRSBiUDhhIB82FVGxEUEx IWkoaDRfCNL2vY9yZZYewP ZqATJePDH3FsGrSOUjSFgt NW80GBJiWOYhKSyyqSNwPS X5fH2pDFHdxKUmBHPiSfEc CHWgH5dbGGWrCBF8ZhAhKW NaLSooES69o3aixYpzb8At lRKyJC6viQZna3vkDGGuzS VdFGQ6ACzzwXFeURTzRNYt XFxkYiBPVlIgIiAxMDExOD Z4GsTqJDq1MYthP9NPMOGs QMZ5OinnRpkgQpB3ENi7LR HSJq8wStO8OcY9PwU9VLS0 SSZ6PJerjZJpLRiii8IhFy MlTGCfUWyjygB0YLNogiIc e7XySZMoJMGeP7kbHbCiGC vkrpWmUFChKREzjfGrS36v Tt7uzIdqRPAezBLkAZziAy CcELTlnUTFk0IvLXscxPUp jlvvtuGsHDHuE6HhxaLzUQ JsUAVySFzkVtOxQTVpf4f7 wJP4uYGavNL5zTXefTrzGL 7gjVWuTDUuX7Egy8lojmNb fF1dRCHuHD7xAIXks7NbzN duIGJvZHkiIGlzIGEgMTIu LoDwrQKtydVuMJ2tsHktXr opKJ8vTNTaKMGmvENuddJl aWFtZXRlciBwdXJwbGUsIG R3sFedWPBqH0BaRKJbwdWx C16pGo5dqGPxt44jlMZ0NR 73ZFrenDfzsYZbA2LcPMI8 sCW1RTAjm5HfQOboUJJiWU Xhs5mku4wnpnuhyZ8lZ8Ze mABbh078KXGiohooNKXoVN ZeucWNZ3VBMdySJkunoVXo AYvyi7ebsPYaqTypNGHpQt INXX7YRWSpxtbzUPYjUTXu ai5ixbIltD91j5eaSNHdKC zaDMBsy8WkZoAuIy9zz8Vz xZzmxgNoNXNfTXK7Vi6bwL BlWW9mCOFecRTfwROkwTGl qsAqu0TpY2Jbm3ZcJWibqS nkSAJrt06lp41htB0pdDNu XHBhclxzYTMwXGVwaWNYc2 JjUWCEwNgrvpOWanc4ZWul ZXMsIFBBLCBIVCAoQVNDUC d9HELycWXfJSS8EK8zwXqi UZDrP5LjS4DopgG3RUZoyr 0= MICROSCOPIC DESCRIPTION a7ogmBBgNWCvuSZzEBUnSA (test code = 3371) uixoVgLMSsvGKjG8Xnnzhf BGjtPS6kTG6mlUnrcRShnK NbLONvJvKpw0mnz692qSUm z9beHDTSuohqrHo5iTgbY3 2gh3Y3AxqjK08fqOLaYVO7 SQDeNUGkaJAzURMrANF4NP IqxJNaQ5qoTYDoFI0iqkdo AEszMEybAQIlxYK7CIAbyP TtV8VpPEWsYMlqEUNtkxk1 VvNtUu2ugRYqpHwfHTbyLC KkSCDgFKcwAIIkJuLgTR4V XhMLOIAul1CbENPyONboSJ TtvCXkOXOgDS5nyXIrpGOx aWNhYmxlLlxwYXJ9 Gross assessment was [facility] performed at (test code Medical Center, = 2772) Department of Pathology, [address] [place] [address], [place] [address], Technical component was [facility] performed at (test code [facility], = 2778) Department of Pathology, [address] [place] [address], Professional component [facility] was performed at ([facility], code = 2779) Department of Pathology, [address] [place] [address], [id number] 09:04:09 Test Item Value Reference Range Interpretation Comments Case Report (test code Surgical Pathology = 104) Report Case: [id number] Authorizing Provider: Fernando Pandya MD Collected: 04/21/2023 10:34 AM Ordering Location: [address] Received: 04/22/2023 08:42 AM Service Pathologist: Quyen Aguiar MD Specimens: A) - Omentum B) - Soft Tissue, Other, bladder injury C) - Foreign Body, foreign body for ID DIAGNOSIS (test code = [id number] 3220) FuZzEwMzNcZnRuYmpcdWMx IHtccnRmMVxlcGljMTAyMD OgMM1rhXrueZw0cSlnODGb crW5eMDyRYfyx3ojIQC7j4 gmfwsaHZGyZGqnSo6ivENs xJnzEvXjVPTnCRc1mT69SL DhxG9oqZIhSAh4FUJlaQWp zoWaZpYxNWJxvQNuxGX4LY IvZA1qbfruZZbiLXkgAMDc pbR6HVSisXAuN9LrYLIaNU 8umwqdZRJ4FIrxOJJzPSC5 JnPhYAAhu2Isjnr9RcRysK FyZFxwbGFpblxmczIwIEEu JT6VMY9CBE2qXFFPE5WNJW uliYJvHPRaZkEeFdzXJi6H ESkIP1FZGMYTY8HZZNPYTX RIIEFDVVRFIEFORCBDSFJP WvgFPDlJIxaDVE0OKXjMIh BBTkQgRklCUklOXHBhclxw YCYsQo0eKZFZLvRAIKXGMA ERKKJXNBVPK5VWQYtaQ2tG DBGLT8ObG7NIY4oPMKNGDQ MKAVWRO8wRFuymgPAiWMCr YiAtVVJJTkFSWSBCTEFERE UUAFGRH6AIYIQDHHDFELNS VVRFIEFORCBDSFJPTklDIE rWSlrWJI7NMKjHVhyvPMKY K2VGXFIACZeblVJlUAVmEr JvRsmOHevHMWBNMKDUU2FJ DPFCQFMBJ3ZGN7qvHNXiMR TeUIPsWQAkMKGmGR4FPr1C YCSEIKKMJP1OI43VEHDWOA SNXCWAIIOYMXZBGTPOM7JT MOxHMYokK2qRDnmQJ8hvZO RmfPZsRSVqUGNIIJ6HHinp IkeBQEAOHqwkIl5MQSkYQs XDU3CIHBKFIF2BMnTOGYGn awsnrFqnHOQmXr3INMxEZn RDV7RMIHdGK8GINGraIZBZ TlRJRklFRCAoUExFQVNFIF TKICJICi6YSwVEMCMPEsbX VElPTilccGFyfXtccnRmMV kvi4HqSWirFQSwKW8pwEdy WVDgAT5nWOSaT8qtbH0kqx k2SeKeNXCxRvJ6EUPdtoE7 Nfc5ZDEtJTkce7tti3MqBG IeSXo2yWcfMcVeNXReu9hf cyBcZmNoYXJzZXQwIEFyaW GzR777l2xnn8lzzsFpaIQ2 UJVvTCB7RYaivxJpziB1DU rpnENfEeS6YEcksgImSQmj dbNfklLuYvy2QIAkF095OW I5kKmdj5ifKOY9ZGSgVDLm YpSiOi2bwQUrF866ARXhQU CHUVKgzJn4QIResqHhvwJw dSUIo356T062d7zyUSDwak OxfFlOvvjhy6oxB710IRCx cGVydzEyMjQwXHBhcGVyaD H9CKIsEB3ttlpoPBtwNZzb OAPrraU4TLOmoCMjC7UmUD UqGU0jomhfKVS1FXxnJYVp EVM4KmMkLRNub4Fjazc4Xf Lsqc1qwi65SYV3q1IbyArb GPT9SKM8XfKjTa3cbYVlBF VqIV9hNkWlvPCsJNNczt52 nRrhMZqoDJW6PDPggkEpb3 Qsg1xnVoAecjQnY9meZ7Fb ZHJoZWFkXHBnYnJkcmZvb3 Ofu0EyyLUzkOs6m0gkLHXp RVOuoZdfk2ziGWR9GLJxuN QdO1vxwW7rPRLlZU3jbbyz b0suSEsbNKfmPLZkgAZ9pu Q9GNDknWLcM3HbeL3wNPFy FAsjHXShzsi5DwMuEq9lrT VyeTcyMFxzYmtwYWdlXHBn bmNvbnRccGduZGVjXHBsYW luXHBsYWluXGYwXGZzMjRc cWxcbGFuZzEwMzNcaGljaF axAZadJfIzXALyCLvzE8il CqAzNzAvDfg7BIGbiRVtZK VsSnw1TDGiyFSgIHLPbAgo vT7hZZGzpZewiF6tjXI4PA NecmCtrMMJdX1uSNIKzN4t GqC7CUTlPjk0COQ6WkKqlZ FyfX0= CPT Code(s) (test code x7ldlHNwEDBkfQKvPSRdAC = 3357) bjqxDsRUPfjSIrK2Aniptm YEipLB2tPE8emSmmhBVaxQ QeTDYfGzNcu2npp712aNYr k5uxXBKCarkkcVe9pBywO8 2pm1B7ZvimC48jtUKiRMF3 NTWdCCWtsNLoHKNlECW1TR KmrHBsG5roZQIzLX2pmvge KFdpBZcfNCDpoKS2XPHabS KaF0JqIHZoFYtfRNRysux4 AhKfDr0ugKPdpCvwMMnbVC OmZWWsSWpjJTIaIlQtZB4k ODgzMDQgWDFccGFyIEIuID a5KtY5QQwrSXDymhOVUvJ6 ODMwMCBYMVxwYXJ9 CLINICAL HISTORY (test n3ccsGMbRMIrfVJhMMZkSL code = 3356) ldvoYzBQTwuKBeA6Grxslk XOpyCR8zWH4vnEkllPZscM AfKOWtTtYpz8sic321jWCr i9rpQHVMxbjbrIs1kMcjW5 6wk7K5AqapG0ykVLBlAYfi DWIyDDkbcMQfXSm7SOUzsV VydzEyMjQwXHBhcGVyaDE1 ZHNhEO4yqxpjIVymVIalJQ TkyvY7HHRhfFXvR0JeSWRz CP3rijgqQUJ4OYvoSMUjSH V9HlSwXPNqw4Cvhdp7IcVm sTCoCHbqlGWvmCcmeG0vQh NfGQvqPmExHr3nPFuwxcBq n7P9RWtvXXRaWFGqRSZngU FyfQ== GROSS DESCRIPTION (test m2wfmQBhTKWbfFPpXKOfGF code = [id number]) mmxmMmHTAvoKCpK5Elalxb JOfvZK3qVP8biWkjeYEikT RxGYSbGlScb8tvx441nHAc n9lvPQKYsvqrvZx9kXumV0 1ja3P7UkamI46nePFwMDM8 OILvPJCnvAAwPBBrYZE8FW DhzDByQ1iuPDKvHY9geshm UUeoLHxpHIDvuWN8XZBknV LsN1UrGGMzWNevLMOmqav6 QwDjKz2hnVQfkJezGZubWv qkbFxhu8SsqRBlLGevWUKx KGCvHUwwMFFsX3TTILRyZA AxMTgyODIiIFJFUSAxNTk2 CSo0IWIBLHEcZDHjLIz6Yl UyMSIgTFJSIDEyMzAwMDAw MDkgXFxuaCBcXHQgMSBcXG JwAEdkpyA5q1vaSNArrFQg DJX1NBbxuVIbELYeSAUzXV xkYiBPVlIgIiAxMDExODI4 HhLbBSn5EAktY5FUQGHkMA F0BbzqFXD1EkC6UYu8ZISM Ty4iRfF6XkF3GaKvTEX5UQ X5XZlxiHLaWJeja0OlVfJm AMYzMLvbocY9XESlekXvqV brzT7yTpQbCcFBMmEGmWEc dHVtXHBhclxwYXJkXHNiMz LoIDAgP9njKeEiVXVuYyGu JGDjB0ydHGPmLELdXNgwVO RhJxPzKeKgGWa4TJWakQ2v Fb6thWLkdL3zhBQqYNwaAX P5fUTzXTJwCLFlZLEsKV61 H4SnxoXtKWtzHNMeOVBsgH 5bGC54lZAmvrUxfrWvKm5n IK46yT8mTZukYPLzSm04MP jsOD92XGdxDR03TPGvERVr cqPny45st9ZmpZIaLOuhhL eawmmiYrxiud1kIZA9zYDg bWVudHVtIHdpdGggYSBzcG Rhd3RtEP7frQ78YJ1sJFGl qJPvXQ49TKHhIvJunRUwdZ adyvHtIMi1PSI6DD5oZNZf V7Tyf48srcddezH3MPVqsj IhHHDrsd48TGroz8qflN0f y1cxnaYtxDWyPZFhRiFhOs L5lZtpS3G9CPU3naPqU0Zj PURFpyEsnOWjgoA0KDCeXV Uww58uERQqYUOmPAXphGdi aWVkLiAgVGhlIHNwZWNpbW WiQZpqDNMiyGmwWGb1JXE7 Lz4gmPVwMGDfcgRXIC53VP NlpMJeXRC8SW7uvXinLWF8 FWfxATHsK3MeS4KnSJtzTS N0RLKrWpQcXGQyLC1UAjGm PHSlLDF1EznrWoW3IAl6EC BPVlMgIiAgMzQzOTMxNjQi HOc8EWs4RXfKMeE5Mom3Pe P7JzOhZGZ2LPMiPAk7IAXy XFxzcyAzIFxcZmwgXFxuY3 1ccGFyZFxzYjEwNVxlcGlj UTMkZUY0ELCwDjJeHc7eV5 3yaPLQgDOzxRBoZL34rVPi XHBhclxwYXJkXHNiMzBcZX KiT9oiZhOeZAJbSIvtONWq QmOiFdXdXIf7KDZlqD2kWi 1cnOKjlY1zbZRhOLffNWT6 oIKaVHGsIXHnMOQsPG14K8 NxuaLxYKqhUCYcSQMjaV9s QM14qIUeevWqgoUsBsDbFZ UfMPVewZ4uyBE6UjKieoUg MkZ5uo5acPLanPTaPFJmIZ fhTB88ahLvZuKoxOSipVOf uPbgxUIzu9GpvMRsbYXsLo epUPEpubRwsFMdw8QmgJmx uMRdJE1rEWZqzc9sZHLyTA 97LnMeP89lnK0iN5FmCNVc r7ZlCDodRS4ztY7gVmCtPT wfGWCjGWjdKN74aqJhagAe TZtfBpAzRU63rNNazHyngJ 9cCLTgJig3VEywCungB3vd TK1aUFotEIPqBkQhK8MhaC lvbmluZyByZXZlYWxzIGEg mPQuYUHokxrlEOMlU3CywR nacVDop9ZtlJJsiZOfLXtk vHOlf0ueerQkdHFqYOBuLw VppWDyV0L5VOA1gcAsX6Tu BIUUaKKfa4BgZ0mySJ7cyG GbKY35rVLnsGxol4PalCb6 qTHkJPNuVIAqwLeer9X2BO BhclxwYXJkXHBhciBTZWN0 sX4iBVCkRZIzaRFxRFNoWd PmXSTbDAwiKH09FNExPISm ZVdzoLRmBKU7eS8fGJWjaE NhPKBxGZD8CuRoBDMgRQwi AE67JJIsPFTsREayfZPiIH H6lJ4cNUDhbDKjZRWxVsHj ZLIyW4oiYLTbYEG4AjFlKA OaUMxpTZ93o5wgfZovl8Za jAGtJW8hiOHhm7wmBBPazR SjLLL8YAgaqIYdPPRsALGh XFxkYiBPVlIgIiAxMDExOD M9HcIwHGz1NAdeD3TDYWOx ZOK1AdajHkngXqC2SBz0AG KUXv6pAiX4PkR8TqP5HCO8 VTE5PPkiiVTiCSpai1VcGo EfBEJtRGxcpxK4ILZgysBp j7BdXHKkTTWeJ1znWbOeOE dnufNmRIAaVRQyleQlJ54t Tu1jbJatUODcxFRfJHowWk UiSGIzeEPHl3BrCFceyCBa nzwdiiAqBLAfY1YpjyJdKY ZbOYLlEVvtAcGlXMIlm1d8 uCV1rCRqyVP9rJYmbLphVK 0ilNTzJFKbZ0Qvz8cehzMl jG2nLROdZO5kHSZal1RryE duIGJvZHkiIGlzIGEgMTIu MmJcqLXdwgQaNG8ynMjqKe pzWY6lHXNxNADjqXNrhqCp aWFtZXRlciBwdXJwbGUsIG N8iNgnAOCoN6WvRKLcltOp J88qKa4usKBdk04heRT0QF 20DDjaaBttrOSlT2SlYSG8 bIJ5MKZav7ZsGUboDPMfFT Hwu6stv9ycxwzmnU3zV9Yu qPAhn429CXNgcfnrEMUwLZ AaxzMKF0SNGqxGMhaeyLRs ZGzmi5qnxKPgkThvSGGsHp JYGC7OWTIfwbovGWOgGJZt ls2crxOqfA47f1bwPSNmIA rzJURtt5QjOnZcTj5ds9Jb jJpytcEsNISwOLD0Qz5gfU XxMF9sARTwaKUdcCVpkUOe utJzy2JpH2Jax0LzWExzwH pjCIZqy26kx50ynJ5bvPZo XHBhclxzYTMwXGVwaWNYc2 TjYCXLzFgkzvYPdqc2DDhl ZXMsIFBBLCBIVCAoQVNDUC m0JUGvyIAwHKK7CT5ixFud DSGdV3ShP1KhnmG9JSIzvi 0= MICROSCOPIC DESCRIPTION v3ewnXUrOQBuuNZkJOZrEZ (test code = 3371) lefqDuLCSsgMNaG8Xvenhj UTlcHZ7fJW2yiZrljQIkbL DbGKRcQbDeo3pth237bVCg q9cnFBQGoetwpSl9fDseK5 0gn0K7XpcuT33rnCAwAUU7 YEHgPRIefXLvLCShPXC4PI NvtQCaQ5ffSFIhSK1rqyxs IUhmNXbjXNXsjWX9WVZpeF RmR5XiKFBeOXccWMEdaac5 VbQjYz5fbYGoeYhsFMclKJ LoRYHuWEywUUToLrSnSO9Q YgGKHNPlz3XqJRXnFMxiQF QqnOYnBJXiRY2iuATtjKIc aWNhYmxlLlxwYXJ9 Gross assessment was [facility] performed at ([facility], = 2777) Department of Pathology, [address] [place] [id number], Technical component was [facility] performed at ([facility], = 2778) Department of Pathology, [address] [place] [address], Professional component [facility] was performed at ([facility], code = 2779) Department of Pathology, [address] [place], [place] [address], [facility] [id number] 09:04:09 Test Item Value Reference Range Interpretation Comments Case Report (test code Surgical Pathology = 104) Report Case: [id number] Authorizing Provider: Fernando Pandya MD Collected: 04/21/2023 10:34 AM Ordering Location: [address] Received: 04/22/2023 08:42 AM Service Pathologist: Quyen Aguiar MD Specimens: A) - Omentum B) - Soft Tissue, Other, bladder injury C) - Foreign Body, foreign body for ID DIAGNOSIS (test code = [id number] 3220) FuZzEwMzNcZnRuYmpcdWMx IHtccnRmMVxlcGljMTAyMD VbVV1lrUtbfYu2uRwvKDSw daI1eUYfUJpwx4roZTH4h3 vhczzkZPBqBTnlKe4gaCZq iTeuTmNtIIDjZDr0qN65VL TxkX7gpLGtMGk2FDFrdSKe zfAwQpYrVEJduIUjtTD5ML DrDY1zsdleETknDWvcZJId pfW0URQlwUNvZ6GoHEGcLX 9xtsqpGAA1GJqyTZOqCFE1 IaMvOOKeo7Hgqxt2EuMgpS FyZFxwbGFpblxmczIwIEEu PF5RAU1EJA8bLVCKN4PLEY wbkQCfORUeTvRhMdvEWn6V WBjJX3UYOUUIX0DSHSLKNO RIIEFDVVRFIEFORCBDSFJP JmwXXMzLYwwBJB5XEMeEXw BBTkQgRklCUklOXHBhclxw VYIuKq4jLKCNRzFQDGIZRO JKWHBBGIKBE8MBSPqgG9nZ OWLIO6UxY7RID8hYDFAFXS GJGPAEC7xYKimpeZQeOCBa YiAtVVJJTkFSWSBCTEFERE EATQLUI2CAFGZXNMWKTFHU VVRFIEFORCBDSFJPTklDIE dFZtoTWZ8PTAvSSkesYCII M2EPFHKKGDytxKGdDMAhIg LpAclPXhyRFAWUZFLDA7XG ZDCTBAQUW7URI7etHHIoHI JgCPJhVZWgJHOxXY3NYv9U KWKGZCIYUE5CR11DNPYCAA TLJWJQVOSQTTYXTFACL0UW IXjZEJldV8mXMhyKC8ajQE OhbAEiVAXyJXGMAD0HAlqi RhlDWHBJIlhyYe5HPBeCKj QHB6JLHBJWXZ0SUxUEGJTv bsbxjAtrEDKcCf9LFIcHVp WNK5QFYPsMZ7PMCRqlFKFS TlRJRklFRCAoUExFQVNFIF QMBGVUDa7TSiPUZJPASdgS VElPTilccGFyfXtccnRmMV hja8EcNSncKZZaLG3jhNvp WITmKC1sYWTgU7jcrT5wzi n5WsUxJZDjLeN9WACkruR4 Zkx6ICDsFFmjt5mjq0WtWV PrXEu1jSbsHdIyLWYnr2ev cyBcZmNoYXJzZXQwIEFyaW FnQ542j3yar7vwtoYdwJO1 QSYfAGY6TRkrzoQxsoN0AC aacPZoLmS4NRekhfClAXwi wcTyklPcKib3GEUsS298UC O4iOjmb7gqOIU8FBReBAAh VjFxZc2faCPhI421VIRzSI MHLSPwjQw7BIDrpuEabjXg dVPDs152V703b0wcDCSoie SxyOnVepxfn2nmO854DAEb cGVydzEyMjQwXHBhcGVyaD I0PVTrZP3qntqdIZqdVZzj TYJywkJ6GMRimTGpJ9TyMH MhUX6bsepoCMR5OQkrOLCd OXE1PxXgMIFcf6Sxexj8Vu Edeq6hpp18FNU7m1AihZcb XUM7PAR1BrOwIw6bkIEpTW OyUD5eLwNfxCPwIEIwmb77 zWnwNGdaUAX9FNZqpsSqa6 Nav9psEiErahQzA6trL3Xg ZHJoZWFkXHBnYnJkcmZvb3 Pef7GsvUYjeDx7p8maRRNs LVVgvTsar5vyQCX5NIRikA ZaM1msvH4mMVAsAZ6meity f2cwBXfzEKivBFCneKY4mv T9WITcfJQvO5WzxW6xROIw KVmoOMEreqp8KfZiWg2zqV VyeTcyMFxzYmtwYWdlXHBn bmNvbnRccGduZGVjXHBsYW luXHBsYWluXGYwXGZzMjRc cWxcbGFuZzEwMzNcaGljaF pwSFcbBkJxXVYxTPvmB6tx HmRpJbXnIzv4ABNlzCUdWC EhUja1BYLsjPZjXOPVwPnb aB8tPTAwjDohiJ0yyPI0HE MhweUibCFQjK6qZLBEjH5n BfV3ETQmXpv2LBQ9EgMbyY FyfX0= CPT Code(s) (test code v4urnWUzZOPzmEWpKIDgNC = 3357) hqreHaVTGqyJSiQ0Cxtnni JRuhAX4gDO0qeHinfXDqjD ViXVDwMcNzo1cah207nXKb z7xuKZSIrdiacJs6ySbxC0 1sg5H5HbynP84ltWIvLCS0 FWPvMTQmrHZhPDJjPHN6WM RcfDDaN8qbWUKjOI6aujbk KVwgOWxvKDWrjXP7JYZrfM CkH9VqGHXiEZfsTTLlddw8 DlEnVk0alKDccXqqEDpdAM XyTPXlMCknUFAnTtAkHI5r ODgzMDQgWDFccGFyIEIuID z2PwG2MAjuHJEgjsDUPeQ4 ODMwMCBYMVxwYXJ9 CLINICAL HISTORY (test m8zgjLZvYMKdiTQaELZvXE code = 3356) cplhJmSGVynSGbS0Fejzle CKdnDD3bWO9xgYibkRZwcT PvEUOlQcPpx0bqy501kSZm y4sgVLJUqvxouNr8gTymL5 4zn8P2FggaK0nkBCUjEZxc ZYKiXIuiaIHyTKw7XDJztO VydzEyMjQwXHBhcGVyaDE1 ACSoFK0egyroNBleVOxmBT OdpwN0KJIheJPqX3TdMKJx HI6ujrlfVAU8VQzqYOQcIJ B7UuTfNLDii0Zoknd4HbCd lLHcOIbvlXCghOiojS8sVs NmKHtwLiPmKu6yNEjhibGq s5P5YGmqNEZtWHSyVYIulQ FyfQ== GROSS DESCRIPTION (test b3clsJNzDUYclYAcPBApZH code = [id number]) xphjLePQJzxGWaU5Kpkmrv DWumDJ6fFR8bpKxowCSigB PrIPFgYtYkm0lpj145xPOw j7mqCQJAjqkrvWw3bUxpE7 8ow1H0AeumR88nlUHkTPH9 TTBkQBQieAMoGCTkHSS7NS WyyVYqX5ndVOKmZG0stsgp ENaeTOyuTZCklLM1PJWvjP WdA0WtFCJkJCloNESivex3 DoQfSd0crRUhlXqoVMmxXd bvsXojz7NvhLIkHNscDQQd GRQwMNjuOYSmF1WLVVFzUS AxMTgyODIiIFJFUSAxNTk2 MLp5NGWMORFcCUBvAEl7Vj UyMSIgTFJSIDEyMzAwMDAw MDkgXFxuaCBcXHQgMSBcXG IqRWthlcH6f0vnFONhpTIm LTJ7SOtytVQxWZSyJDWsFZ xkYiBPVlIgIiAxMDExODI4 ZvFzCPv6VFcfY4FTRJUkPM G8NjqoECH6GhG8AIe1LYHW Xg5iEsF6JsU8HqTbWGD5UF K6UTvovINhJFdom8ZnKsEg XYFcANxofjE1SVBrsmEveX tdaM5fZvRtPcICKkLSfEKq dHVtXHBhclxwYXJkXHNiMz GpZFPpY4xwIjBtMCXmRsDf TUGhK5vdGWLrJRBgBOvuNB AqHaKhVdCiVWh1EWPesQ4x Hp3zeTLroV2mhFXrPTnvOU Z8dMOiJJXrPBQsIGXfPN90 T0SgcxCrWHkiWKVeATWftT 8eUG50hBBiccSazoZtEk6c ME38zW6yHWehSGWsIe36SA pgVP94EKbnXH53JNZaOONq qeDnw10dv0RqyILfAXfjwQ ozuynyCextah0jPBC8aZSl bWVudHVtIHdpdGggYSBzcG Icl9UdNK0ltE48ME2uDVKb fDSnPM64TNDoWuGwbKEmlF tqpsZyBOp7UML8CY0iWOFa B2Fzd93dslogpgQ3OUEncl JlQZPqgz46SDrkx3ruyA5a g9krdiMcmAJtVOZkTmEuKp T6bYdkA1Y3OXM9gfRyT8Hf TCYPdsRyhGIbzxR8RBDnTZ Kih32vJWIlCLLaSYLigBog aWVkLiAgVGhlIHNwZWNpbW MzYEeiEWVshVuoXKj3QLE6 Nj5wgTLfPUEhvzQBPH86OL IkxOFnUYS9IB5nmSxcRMT5 ZTnpLUJmN5LaR7XkWCmxZE Y0TSWkQiMrGEQiVY5JWaWe PMNoCUL3QsxkEfD6RZm9ZL BPVlMgIiAgMzQzOTMxNjQi CQj7ODd0JBlXNmB7Nxk8Wm T3FpTwHHI5USXjWGz4WTWw XFxzcyAzIFxcZmwgXFxuY3 1ccGFyZFxzYjEwNVxlcGlj JYHzJKM5QIRwTiKnHx3rX8 9lgXHXfTGdyMYwFD74eULp XHBhclxwYXJkXHNiMzBcZX FiQ9gjLaMiSYNaBBwaBTJg EzZqYiLuCDm2STAjpE7iAo 5siXRviE6fyZWjHFweZMN3 pPToHODtHWQgXVJxVE95P5 GwarAuYVzrOXXuBMOsoC9q MN68vSHvynIcyiTkEuSvWU JaLKOskO2jtIA7ZmWotuFt MmE1xb8hxRMuxPVsVBWtOR bcUU50igFmNnEptCTmkHXj iNdwiKZnx3LrmDKshTOlLt skPNZnsxNddDZjr3YekNcw tIDtCI0hXYQzfo7jYCUiCF 87BfUdY07ptQ8gS6YtCNKo m8LzMVczVO4nrF8rPzUlHJ ejQFQfMArpSR90tyIokyQf GBvzVcMpFC28xNClfPfvaM 7bGPVdZbx8NJuzChgfL5lr PL9mEJkwSCGdNyGrP8GodM lvbmluZyByZXZlYWxzIGEg kEKlJRYdikpcBHQpH8GwjJ ettKSki5RvmXVqxASaMOhh aDNhp1zfncVvuOMiSEJaZc DzwEQwG4J7EUA7ccPxD8Ef FBMExVNiy7NcL1vuKQ1pnI CgVO62rJJmuIigw7PkeDw2 dVBwEPMdMDFzzDpty4W6FU BhclxwYXJkXHBhciBTZWN0 vI8tOEQoNFSzfKHrBRRmMp ApGPAmIHgiKD09KQTpGWKp CTyxuXKpERK6yX7vSVKgrX JsSBOdAJM7KgVgJOIzAWci UO95WJQmWVOyDGixnUXcOO R6xV3cOOAhzEUlZDHzCbEb WCBdN9bgAMJgKXO6StFrCD AjDIekYP80m7ygvQpjt2Sm xKSrUA1ffFOsb1bdFBNfkH ShVDA5OVmfuQQqMZNpXMKw XFxkYiBPVlIgIiAxMDExOD P1NuWnDNj9ZYhyC8FJIFJj WBG5YbynSsbaDdH8NBk6YC WZFd7uHqD9NtH7InS5DBQ7 ZDA1XSywzSKzWWkdn8EqEa SvHVPjQVxvxxM3XBShdqJz n5KnVKHgUXBrQ7lqYcHzGR xyjcNxBUQdVFInguWfY61a Vy5gtAggPSPdjTNaPEinGa BgDJUmvOSIi4TxHUpqzPUd aobfrmWqBUBpO5FwgkYcUQ CuKLRpFUdvVyLjUOMrs4c8 oYG9fCFdhNB4zCBwoKlhYC 0bmDAlEWEfC5Bbn1rypiHc jS2aTQBnVF4cTBSpj8EogR duIGJvZHkiIGlzIGEgMTIu AhEhuHTkdxAoQD1etDlwSz beHO2eLNJhXJMdtTHrgqQy aWFtZXRlciBwdXJwbGUsIG P6pPcgEJVrE1ChDSZsmfYq E84pWt9bePBfo87ojKJ5AL 13MHxovBzqcLKmJ8VlTZF1 gQX1KYNhs1MaGVwzGCXbUS Obz7qvs7hrbzkthG9oS1Xu yMKmt527ZSOwmmtpWSVbCU IfpqZDL2SJKswXFliauZHv WKlok3mtbNRvjRvkLBMwYe SQKO0TMFKfbzdxKSTqJERd dc1nlkTfkZ30l1txELVuWL veGGQik6BnSmBwDk4fm5Tl wErezyLzNWYpRKU0Qc0pdG MqOQ0gCNVfmBNdrBAzwHMy snQsm9UiV3Fiq3NpSCrrzI pfZBOuk08vo11seE8rsSKn XHBhclxzYTMwXGVwaWNYc2 OaPFFGdGjzhmEOogh0UTjj ZXMsIFBBLCBIVCAoQVNDUC k2SHAwdDMbIOA8RM6daMce LHWlB1TvJ5UgylW9JPVjlk 0= MICROSCOPIC DESCRIPTION p0nxbGFwHJFzjJFnCAEoKT (test code = 3371) hpzuKbMYAdsMDbQ3Gwdkpf STtaRS8wVJ8xwUomiDQuiH MxXXXzXnPpn5dxe999rBMu z7jhKXDUajnfmKo3hWzoG2 3vs4E7OmsjA86blUUdDDN6 LIRbAFHzzVVnSDMqZWQ0ZO IeyXKmP7gaIEFcXS2zpzmw HKwrHVtuBZCozSF7PDVguB NkT8CiAKEkMBraVBPugyg0 JyFkEc3cgWDtmRviDOafDM FeGZZdFVezDPHyTuZbTE6J XvJFDCUqh0HtWRThBJisGR NekIDvBGSgFV1haGKgoNCa aWNhYmxlLlxwYXJ9 Gross assessment was [facility] performed at ([facility], = 2777) Department of Pathology, [address] [place] [address], Technical component was [facility] performed at ([facility], = 2778) Department of Pathology, [address] [place] [address], Professional component [facility] was performed at ([facility], code = 2779) Department of Pathology, [address] [place] [address], [facility] CampusTISSUE [id number] 09:04:09Surgical Pathology Report Case: [id number] Authorizing Provider: Fernando Pandya MD Collected: 04/21/2023 10:34 AM Ordering Location: [address] Received: 04/22/2023 08:42 AM Service Pathologist: [...] GROSS DESCRIPTION) Signing Pathologist Direct Phone Line: [phone] signed by Quyen Aguiar MD on 05/01/2023 at 9:04 AMA. 02772 X1B. 33421 X1C. 34861 L9Njgmlto body in bladderA. OmentumReceived in formalin labeled with the patient's name, accession number and "omentum" is a 2.4 x 0.5x 0.5 cm portion of sue-yellow, fibrofatty omentum with a sparse amount of adherent fibropurulent exudate. Sectioning reveals a sue-yellow homogeneous, fibrofatty cut surface. No discrete lesions are identified. The specimen is entirely submitted in A1.B. Soft Tissue, OtherReceived in formalin labeledwith the patient's name, accession number and "bladder injury" are 3 unoriented fragments of diffusely hemorrhagic bladder mucosa that range from 0.9-4.5 cm in greatest dimension. The fragments are differentially inked blue, black and green. Sectioning reveals a sue-pink, focally hemorrhagic, heterogeneous, fibrous cut surface. The specimen is entirely submitted as follows:Section codeB1: 1 fragment,serially sectionedB2- B5: 1 fragment, serially sectionedB6: 1 fragmentC. Foreign BodyReceived fresh la beled with the patient's name, accession number and "foreign body" is a 12.2 cm in length by 1.1-2.0cm in diameter purple, cylindrical foreign body consistent with mascara that displays the following inscription:COVERGIRLLashblastFUSIONA gross photograph is taken. No sections are submitted. This partis for gross examination only.THERESA Contreras, HT (ASCP)A-B. Performed. C. Not applicable.[facility], Department of Pathology, [address] [place] [address], [facility], [address] [place] [address], [facility], [facility], [address] [place] [address], JLB W/PLT COUNT & AUTO [id number] 06:54:34 Test Item Value Reference Range Interpretation [...] code = 2801) STD Panel - CT/GC [id number] 23:47:22 Test Item Value Reference Interpretation Comments Range C. trachomatis NOT DETECTED RNA, TMA (test code = 1441795) N. gonorrhoeae NOT DETECTED REFERENCE RA NGE: NOT RNA, TMA (test DETECTED Meth odology: code = 3241795) Transcriptio n Mediated Amplification ( TMA)to detect RNA. The analytical perf ormance characteristics of thisassay, when used to test SurePat h(TM) specimens haveb een determined by [employer]. Th e modificationsha ve not been cleared or approved by the FDA. This assayhas b een validated pursu ant to the CLIA regula tions andis used for clinical purpos es. For additional information, pl ease refer tohttps://[employer]/faq /XIK190(This li nk is being provided for informational/e ducatio nal purposes on ly.) CINDI (test code = Performing Lab CINDI) *[facility] [address] [place] [address] Diego Mathew MD, PhD [facility] Panel - CT/GC [id number] 23:47:22 Test Item Value Reference Interpretation Comments Range C. trachomatis NOT DETECTED RNA, TMA (test code = 5696822) N. gonorrhoeae NOT DETECTED REFERENCE RA NGE: NOT RNA, TMA (test DETECTED Meth odology: code = 6174371) Transcriptio n Mediated Amplification ( TMA)to detect RNA. The analytical perf ormance characteristics of thisassay, when used to test SurePat h(TM) specimens haveb een determined by [facility]. Th e modificationsha ve not been cleared or approved by the FDA. This assayhas b een validated pursu ant to the CLIA regula tions andis used for clinical purpos es. For additional information, pl ease refer tohttps://[employer]a [employer]/faq /ORQ236(This li nk is being provided for informational/e ducatio nal purposes on ly.) CINDI (test code = Performing Lab CINDI) *[facility] [address] [place] [address] Diego Mathew MD, PhD [facility] Panel - CT/GC [id number] 23:47:22 Test Item Value Reference Interpretation Comments Range C. trachomatis NOT DETECTED RNA, TMA (test code = 1503735) N. gonorrhoeae NOT DETECTED REFERENCE RA NGE: NOT RNA, TMA (test DETECTED Meth odology: code = 2136647) Transcriptio n Mediated Amplification ( TMA)to detect RNA. The analytical perf ormance characteristics of thisassay, when used to test SurePat h(TM) specimens haveb een determined by [facility]. Th e modificationsha ve not been cleared or approved by the FDA. This assayhas b een validated pursu ant to the [employer] tions andis used for clinical purpos es. For additional information, pl ease refer tohttps://[employer]/faq /XJX481(This li nk is being provided for informational/e ducatio nal purposes on ly.) CINDI (test code = Performing Lab CINDI) *[facility] [address] [place] [address] Diego Mathew MD, PhD [facility] Panel - CT/GC [id number] 23:47:22 Test Item Value Reference Interpretation Comments Range C. trachomatis NOT DETECTED RNA, TMA (test code = 9983216) N. gonorrhoeae NOT DETECTED REFERENCE RA NGE: NOT RNA, TMA (test DETECTED Meth odology: code = 0187729) Transcriptio n Mediated Amplification ( TMA)to detect RNA. The analytical perf ormance characteristics of thisassay, when used to test SurePat h(TM) specimens haveb een determined by [facility]. Th e modificationsha ve not been cleared or approved by the FDA. This assayhas b een validated pursu ant to the CLIA regula tions andis used for clinical purpos es. For additional information, pl ease refer tohttps://educa tiSpitfire [employer]/faq /WGG221(This li nk is being provided for informational/e ducatio nal purposes on ly.) CINDI (test code = Performing Lab CINDI) *[facility] [address] Diego Mathew MD, PhD [facility] Panel - CT/GC [id number] 23:47:22 Test Item Value Reference Interpretation Comments Range C. trachomatis NOT DETECTED RNA, TMA (test code = 2775110) N. gonorrhoeae NOT DETECTED REFERENCE RA NGE: NOT RNA, TMA (test DETECTED Meth odology: code = 1453638) Transcriptio n Mediated Amplification ( TMA)to detect RNA. The analytical perf ormance characteristics of thisassay, when used to test SurePat h(TM) specimens haveb een determined by [facility]. Th e modificationsha ve not been cleared or approved by the FDA. This assayhas b een validated pursu ant to the CLIA regula tions andis used for clinical purpos es. For additional information, pl ease refer tohttps://educa tion.[employer]/faq /SIN330(This li nk is being provided for informational/e ducatio nal purposes on ly.) CINDI (test code = Performing Lab CINDI) *[facility] [address] Diego Mathew MD, PhD [facility] Panel - CT/GC [id number] 23:47:22 Test Item Value Reference Interpretation Comments Range C. trachomatis NOT DETECTED RNA, TMA (test code = 0550450) N. gonorrhoeae NOT DETECTED REFERENCE RA NGE: NOT RNA, TMA (test DETECTED Meth odology: code = 5565437) Transcriptio n Mediated Amplification ( TMA)to detect RNA. The analytical perf ormance characteristics of thisassay, when used to test SurePat h(TM) specimens haveb een determined by [facility]. Th e modificationsha ve not been cleared or approved by the FDA. This assayhas b een validated pursu ant to the CLIA regula tions andis used for clinical purpos es. For additional information, pl ease refer tohttps://educa tionDeep Driver/faq /WRO135(This li nk is being provided for informational/e ducatio nal purposes on ly.) CINDI (test code = Performing Lab CINDI) *[facility] [address] [address] Diego Mathew MD, PhD [facility] Panel - CT/GC [id number] 23:47:22 Test Item Value Reference Interpretation Comments Range C. trachomatis NOT DETECTED RNA, TMA (test code = 6742526) N. gonorrhoeae NOT DETECTED REFERENCE RA NGE: NOT RNA, TMA (test DETECTED Meth odology: code = 6751273) Transcriptio n Mediated Amplification ( TMA)to detect RNA. The analytical perf ormance characteristics of thisassay, when used to test SurePat h(TM) specimens haveb een determined by [employer]. Th e modificationsha ve not been cleared or approved by the FDA. This assayhas b een validated pursu ant to the CLIA regula tions andis used for clinical purpos es. For additional information, pl ease refer tohttps://educa tion.[employer]/faq /MDY370(This li nk is being provided for informational/e ducatio nal purposes on ly.) CINDI (test code = Performing Lab CINDI) *[facility] [address] [address] Diego Mathew MD, PhD [facility] [id number] 06:05:43 Test Item Value Reference Range Interpretation [...] not appl icable for dialysis patien ts News Videographer ID - ADMINCBC W/PLT COUNT & AUTO [id number] 05:27:38 Test Item Value Reference Range Interpretation [...] 0.00-1.00 PERCENT (BEAKER) (test code = 2801) [id number] 15:29:12 Test Item Value Reference Range Interpretation Comments RPR SCREEN (BEAKER) (test code = Nonreactive Nonreactive 420) BASIC METABOLIC [id number] 05:30:13 Test Item Value Reference Range Interpretation [...] eGFR (test code = mL/min/1.73 values Stage D escription 1092) sq m Result G1 Codi l [...] not appl icable for dialysis patien ts News Videographer ID - MMCBC W/PLT COUNT & AUTO [id number] 05:00:11 Test Item Value Reference Range Interpretation [...] (BEAKER) (test code = 2801) HEPATITIS B [id number] 12:22:27 Test Item Value Reference Range Interpretation Comments HEPATITIS B CORE TOTAL ANTIBODY Nonreactive Nonreactive (BEAKER) (test code = 497) HEPATITIS B SURFACE ANTIBODY < mIU/mL <8.0 (BEAKER) (test code = 647) HEPATITIS B SURFACE ANTIGEN (2) Nonreactive Nonreactive (BEAKER) (test code = 2585) News Videographer ID - ADMINFL, FLUORO, NON-SPECIFIC, UP TO 1 [id number] 11:50:00 Reason for exam:->[facility] : 1980 Sex: FAn imaging unit was utilized for this procedure. No radiologist interpretation was requested. Refer to the EMR for findings. Refer to PACS for any patient radiation dose information.HIV-1 ANTIGEN WITH HIV-1/2 [id number] 11:41:16 Test Item Value Reference Range Interpretation Comments HIV-1 ANTIGEN WITH HIV 1\\T\\2 Nonreactive Nonreactive ANTIBODY (2) (BEAKER) (test code = 2586) News Videographer ID - ADMINHEPATITIS C [id number] 11:41:11 Test Item Value Reference Range Interpretation Comments HEPATITIS C ANTIBODY (BEAKER) Nonreactive Nonreactive (test code = 367) News Videographer ID - ADMINPregnancy Screen, [id number] 07:54:00 Test Item Value Reference Range Interpretation Comments Preg Test, Ur (test code = 2112-1) Negative Negative Lab Interpretation (test code = Normal 77139-0) [facility], [id number] 07:54:00 Test Item Value Reference Range Interpretation Comments Preg Test, Ur (test code = 2112-1) Negative Negative Lab Interpretation (test code = Normal 35672-3) [facility], [id number] 07:54:00 Test Item Value Reference Range Interpretation Comments Preg Test, Ur (test code = 2112-1) Negative Negative Lab Interpretation (test code = Normal 37612-5) [facility], [id number] 07:54:00 Test Item Value Reference Range Interpretation Comments Preg Test, Ur (test code = 2112-1) Negative Negative Lab Interpretation (test code = Normal 45711-7) [facility], [id number] 07:54:00 Test Item Value Reference Range Interpretation Comments Preg Test, Ur (test code = 2112-1) Negative Negative Lab Interpretation (test code = Normal 44919-7) [facility], [id number] 07:54:00 Test Item Value Reference Range Interpretation Comments Preg Test, Ur (test code = 2112-1) Negative Negative Lab Interpretation (test code = Normal 72458-5) [facility], [id number] 07:54:00 Test Item Value Reference Range Interpretation Comments Preg Test, Ur (test code = 2112-1) Negative Negative Lab Interpretation (test code = Normal 59764-0) [facility] CampusPREGNANCY SCREEN, [id number] 07:54:00 Test Item Value Reference Range Interpretation Comments TEST URINE (BEAKER) (test Negative Negative code = 583) BASIC METABOLIC [id number] 07:04:30 Test Item Value Reference Range Interpretation [...] glom erular filtration rate . Estimated GFR i s not applicable for dialysis patients News Videographer ID - [id number] 07:04:30 Test Item Value Reference Range Interpretation Comments MAGNESIUM (BEAKER) (test code = 1.9 mg/dL 1.6-2.6 627) News Videographer ID - [id number] 07:04:30 Test Item Value Reference Range Interpretation Comments PHOSPHORUS (BEAKER) (test code = 2.9 mg/dL 2.3-4.7 604) News Videographer ID - ELIZABETHOCBC W/PLT COUNT & AUTO [id number] 06:56:04 Test Item Value Reference Range Interpretation [...] PERCENT (BEAKER) (test code = 2801) PROTHROMBIN TIME/[id number] 06:49:20 Test Item Value Reference Range Interpretation Comments PROTIME (BEAKER) (test code = 13.1 seconds 11.9-14.2 759) INR (BEAKER) (test code = 370) 1.01 <=5.90 RECOMMENDED COUMADIN/WARFARIN INR THERAPY RANGESSTANDARD DOSE: 2.0 - 3.0 Includes: PROPHYLAXIS for venous thrombosis, systemic embolization; TREATMENT for venous thrombosis and/or pulmonary embolus.HIGH RISK: Target INR is 2.5-3.5 for patients with mechanical heart valves.Urinalysis w/Microscopic + Reflex to [id number] 02:32:21 Test Item Value Reference Range Interpretation Comments Color, UA (test code Yellow = 5778-6) Clarity, UA (test Hazy code = 5767-9) Specific [place], UA 1.038 1.001-1.035 H (test code = 5811-5) pH, UA (test code = 6.5 5.0-8.0 5803-2) Protein, UA (test 100 mg/dL Negative A code = 88830-4) Glucose, UA (test Negative Negative code = 365) Ketones, UA (test Negative Negative code = 2514-8) Bilirubin, UA (test Negative Negative code = 69070-2) Blood, UA (test code Moderate Negative A = 52019-4) Nitrite, UA (test Positive Negative A code = 5802-4) Leukocytes, UA (test Large Negative A code = 5799-2) Urobilinogen, UA 0.2 0.2-1.0 (test code = 87838-4) RBC, UA (test code = 116 See_Comment [Autom ated 21893-0) message] The system which generated this result [...] 20 See_Comment [Automate d (test code = 56728-2) messag e] The system which generated this result transmit fatemeh reference range : /HPF. The reference range was not used to interpret this result as normal/abnormal . Specimen Source (test code = 2795) CINDI (test code = CINDI) News Videographer ID - [auto]News Videographer ID - tech Lab Interpretation Abnormal (test code = 20125-8) [facility]Micro[facility] + Reflex to Culture 2023-04-21 02:32:21 Test Item Value Reference Range Interpretation Comments Color, UA (test code Yellow = 5778-6) Clarity, UA (test Hazy code = 5767-9) Specific [place], UA 1.038 1.001-1.035 H (test code = 5811-5) pH, UA (test code = 6.5 5.0-8.0 5803-2) Protein, UA (test 100 mg/dL Negative A code = 21640-2) Glucose, UA (test Negative Negative code = 365) Ketones, UA (test Negative Negative code = 2514-8) Bilirubin, UA (test Negative Negative code = 48281-2) Blood, UA (test code Moderate Negative A = 46458-5) Nitrite, UA (test Positive Negative A code = 5802-4) Leukocytes, UA (test Large Negative A code = 5799-2) Urobilinogen, UA 0.2 0.2-1.0 (test code = 66633-5) RBC, UA (test code = 116 See_Comment [Autom ated 50008-8) message] The system which generated this result [...] 20 See_Comment [Automate d (test code = 54945-7) messag e] The system which generated this result transmit fatemeh reference range : /HPF. The reference range was not used to interpret this result as normal/abnormal . Specimen Source (test code = 2795) CNIDI (test code = CINDI) News Videographer ID - [auto]News Videographer ID - tech Lab Interpretation Abnormal (test code = 67214-9) [facility] + Reflex to Culture 2023-04-21 02:32:21 Test Item Value Reference Range Interpretation Comments Color, UA (test code Yellow = 5778-6) Clarity, UA (test Hazy code = 5767-9) Specific [place], UA 1.038 1.001-1.035 H (test code = 5811-5) pH, UA (test code = 6.5 5.0-8.0 5803-2) Protein, UA (test 100 mg/dL Negative A code = 11749-4) Glucose, UA (test Negative Negative code = 365) Ketones, UA (test Negative Negative code = 2514-8) Bilirubin, UA (test Negative Negative code = 74116-4) Blood, UA (test code Moderate Negative A = 99730-9) Nitrite, UA (test Positive Negative A code = 5802-4) Leukocytes, UA (test Large Negative A code = 5799-2) Urobilinogen, UA 0.2 0.2-1.0 (test code = 23783-0) RBC, UA (test code = 116 See_Comment [Autom ated 66336-3) message] The system which generated this result [...] 20 See_Comment [Automate d (test code = 04948-9) messag e] The system which generated this result transmit fatemeh reference range : /HPF. The reference range was not used to interpret this result as normal/abnormal . Specimen Source (test code = 2795) CINDI (test code = CINDI) News Videographer ID - [auto]News Videographer ID - tech Lab Interpretation Abnormal (test code = 10078-3) [facility] + Reflex to Culture 2023-04-21 02:32:21 Test Item Value Reference Range Interpretation Comments Color, UA (test code Yellow = 5778-6) Clarity, UA (test Hazy code = 5767-9) Specific [place], UA 1.038 1.001-1.035 H (test code = 5811-5) pH, UA (test code = 6.5 5.0-8.0 5803-2) Protein, UA (test 100 mg/dL Negative A code = 51406-0) Glucose, UA (test Negative Negative code = 365) Ketones, UA (test Negative Negative code = 2514-8) Bilirubin, UA (test Negative Negative code = 68515-1) Blood, UA (test code Moderate Negative A = 40359-5) Nitrite, UA (test Positive Negative A code = 5802-4) Leukocytes, UA (test Large Negative A code = 5799-2) Urobilinogen, UA 0.2 0.2-1.0 (test code = 39509-4) RBC, UA (test code = 116 See_Comment [Autom ated 25585-9) message] The system which generated this result [...] 20 See_Comment [Automate d (test code = 40332-2) messag e] The system which generated this result transmit fatemeh reference range : /HPF. The reference range was not used to interpret this result as normal/abnormal . Specimen Source (test code = 2795) CINDI (test code = CINDI) News Videographer ID - [auto]News Videographer ID - tech Lab Interpretation Abnormal (test code = 31890-2) [facility] + Reflex to Culture 2023-04-21 02:32:21 Test Item Value Reference Range Interpretation Comments Color, UA (test code Yellow = 5778-6) Clarity, UA (test Hazy code = 5767-9) Specific [place], UA 1.038 1.001-1.035 H (test code = 5811-5) pH, UA (test code = 6.5 5.0-8.0 5803-2) Protein, UA (test 100 mg/dL Negative A code = 01355-0) Glucose, UA (test Negative Negative code = 365) Ketones, UA (test Negative Negative code = 2514-8) Bilirubin, UA (test Negative Negative code = 42186-7) Blood, UA (test code Moderate Negative A = 14238-5) Nitrite, UA (test Positive Negative A code = 5802-4) Leukocytes, UA (test Large Negative A code = 5799-2) Urobilinogen, UA 0.2 0.2-1.0 (test code = 09383-9) RBC, UA (test code = 116 See_Comment [Autom ated 71200-3) message] The system which generated this result [...] 20 See_Comment [Automate d (test code = 63665-9) messag e] The system which generated this result transmit fatemeh reference range : /HPF. The reference range was not used to interpret this result as normal/abnormal . Specimen Source (test code = 2795) CINDI (test code = CINDI) News Videographer ID - [auto]News Videographer ID - tech Lab Interpretation Abnormal (test code = 58458-9) [facility] + Reflex to Culture 2023-04-21 02:32:21 Test Item Value Reference Range Interpretation Comments Color, UA (test code Yellow = 5778-6) Clarity, UA (test Hazy code = 5767-9) Specific [place], UA 1.038 1.001-1.035 H (test code = 5811-5) pH, UA (test code = 6.5 5.0-8.0 5803-2) Protein, UA (test 100 mg/dL Negative A code = 77667-2) Glucose, UA (test Negative Negative code = 365) Ketones, UA (test Negative Negative code = 2514-8) Bilirubin, UA (test Negative Negative code = 91808-5) Blood, UA (test code Moderate Negative A = 66880-2) Nitrite, UA (test Positive Negative A code = 5802-4) Leukocytes, UA (test Large Negative A code = 5799-2) Urobilinogen, UA 0.2 0.2-1.0 (test code = 21286-7) RBC, UA (test code = 116 See_Comment [Autom ated 05118-0) message] The system which generated this result [...] 20 See_Comment [Automate d (test code = 19596-4) messag e] The system which generated this result transmit fatemeh reference range : /HPF. The reference range was not used to interpret this result as normal/abnormal . Specimen Source (test code = 2795) CINDI (test code = CINDI) News Videographer ID - [auto]News Videographer ID - tech Lab Interpretation Abnormal (test code = 93771-5) [facility] + Reflex to Culture 2023-04-21 02:32:21 Test Item Value Reference Range Interpretation Comments Color, UA (test code Yellow = 5778-6) Clarity, UA (test Hazy code = 5767-9) Specific [place], UA 1.038 1.001-1.035 H (test code = 5811-5) pH, UA (test code = 6.5 5.0-8.0 5803-2) Protein, UA (test 100 mg/dL Negative A code = 03833-0) Glucose, UA (test Negative Negative code = 365) Ketones, UA (test Negative Negative code = 2514-8) Bilirubin, UA (test Negative Negative code = 21414-7) Blood, UA (test code Moderate Negative A = 31501-1) Nitrite, UA (test Positive Negative A code = 5802-4) Leukocytes, UA (test Large Negative A code = 5799-2) Urobilinogen, UA 0.2 0.2-1.0 (test code = 97617-8) RBC, UA (test code = 116 See_Comment [Autom ated 89932-9) message] The system which generated this result [...] 20 See_Comment [Automate d (test code = 02328-4) messag e] The system which generated this result transmit fatemeh reference range : /HPF. The reference range was not used to interpret this result as normal/abnormal . Specimen Source (test code = 2795) CINDI (test code = CINDI) News Videographer ID - [auto]News Videographer ID - tech Lab Interpretation Abnormal (test code = 11277-9) [facility]FLEX URINE [id number] 02:32:21 Test Item Value Reference Range Interpretation [...] = 516) SOURCE(BEAKER) (test code = 2795) News Videographer ID - [auto]News Videographer ID - techBLOOD [id number] 06:00:50 Test Item Value Reference Range Interpretation Comments CULTURE (BEAKER) (test No growth in 5 days code = 1095) The specimen volume collected for this blood culture was below the optimum (10 mL per bottle or 20 mL total). Use of lower volumes may adversely affect recovery and/or detection times of some organisms.BLOOD [id number] 06:00:50 Test Item Value Reference Range Interpretation Comments CULTURE (BEAKER) (test No growth in 5 days code = 1095) SARS-COV2/RT-PCR ([facility])2021-11-18 08:28:01 Test Item Value Reference Range Interpretation Comments SARS-COV2/RT-PCR Negative Negative The SARS-Co V-2 target (test code = nucleic acids a re not 3460944) detected in thi s specimen. Negative result [...] revoked sooner. Fact Sheet for Healthcare Providers: https://www.[employer].co m/Documents/Xpert%20Xpress%20SARS%20CoV-2/Fact%20Sheets/565-8862%74FGKD-MHG-2%20 HEALTHCARE%20PROVIDERS%20FACT%20SHEET.pdf Fact Sheet for Healthcare Patients: https://www.[employer].com/Documents/Xpert%20Xp ress%20SARS%20CoV-2/Fact%20Sheets/747-3801%95NHMN-SAI-1%20PATIENT%20FACT%20SHEET .[id number] 06:04:17 Test Item Value Reference Range Interpretation Comments MAGNESIUM (BEAKER) 2.1 mg/dL 1.6-2.6 Specimen slightly (test code = 627) hemolyzed News Videographer ID - NADEEM GOperator ID - NADEEM GBASIC METABOLIC [id number] 05:18:17 Test Item Value Reference Range Interpretation [...] S NOT APPLICABLE FOR DIALYSIS PATIEN TS. News Videographer ID - NADEEM GCBC W/PLT COUNT & AUTO [id number] 04:53:25 Test Item Value Reference Range Interpretation [...] (BEAKER) (test code = 2801) BASIC METABOLIC [id number] 04:54:32 Test Item Value Reference Range Interpretation [...] S NOT APPLICABLE FOR DIALYSIS PATIEN TS. News Videographer ID - MARIA D [id number] 04:54:32 Test Item Value Reference Range Interpretation Comments MAGNESIUM (BEAKER) (test code = 1.9 mg/dL 1.6-2.6 627) News Videographer ID - PAYALYOANNA LCBC W/PLT COUNT & AUTO [id number] 04:16:32 Test Item Value Reference Range Interpretation [...] code = 2801) URINALYSIS W/ REFLEX URINE [id number] 09:09:42 Test Item Value Reference Range Interpretation [...] = 1521) SOURCE(BEAKER) (test code = 2795) News Videographer ID - [auto]News Videographer ID - techPREGNANCY SCREEN, [id number] 06:44:04 Test Item Value Reference Range Interpretation Comments TEST URINE (BEAKER) (test Negative code = 583) BASIC METABOLIC [id number] 06:03:02 Test Item Value Reference Range Interpretation [...] S NOT APPLICABLE FOR DIALYSIS PATIEN TS. News Videographer ID - PIAYA LCBC W/PLT COUNT & AUTO [id number] 05:11:55 Test Item Value Reference Range Interpretation [...] 0-1 PERCENT (BEAKER) (test code = 2801) [id number] 22:12:00 Test Item Value Reference Range Interpretation Comments ALCOHOL (test code = 80 mg/dL 2889434798) CINDI (test code = Toxic Greater than or CINDI) equal to 80 mg/dL. NOTE: Whole blood values are approximately 10% to 15% lower than serum and plasma. [facility] 20:[facility]00 Test Item Value Reference Range Interpretation Comments ALCOHOL (test code = 108 mg/dL 4137272277) CINDI (test code = Toxic Greater than or CINDI) equal to 80 mg/dL. NOTE: Whole blood values are approximately 10% to 15% lower than serum and plasma. [facility] / [facility] - DRUG SCREEN [id number] 18:24:00 Test Item Value Reference Range Interpretation Comments BENZO U (test code = Negative Negative 0213127680) SANDRA U (test code = Negative Negative 4936104166) AMPHET (test code = Negative Negative 9943822940) THC (test code = Negative Negative 4819026313) METHADONE (test code = Negative Negative 3619357101) Meth U (test code = Negative Negative 5704043321) OPIATES (test code = Negative Negative 6072449541) Cocaine Metabolite (test Presumptive Positive Negative A code = 1548194191) PROPOXY (test code = Negative Negative 0449802505) Tric U (test code = Negative Negative 6884218797) PCP (test code = Negative Negative 9975930984) OXYCOD (test code = Negative Negative 7228619545) CINDI (test code = CINDI) Urine Drug [...] testing). Lab Interpretation (test Abnormal code = 19192-6) [facility] [id number] 18:07:00 Test Item Value Reference Range Interpretation Comments POCT PREG (test code = 1605) Negative On board controls acceptable with C Present Line (test code = 3574) Lab Interpretation (test code = Normal 93829-6) [facility] [id number] 17:36:18 Nonobstructive bowel gas pattern. Preliminary Report [...] this study and agree with the abovereport.[facility] (ID NOW RAPID TESTING)2020-12-25 17:13:00 Test Item Value Reference Range Interpretation Comments SARS-CoV-2 Rapid ID NOW Not Detected Not Detected (test code = 91744-6) CINDI (test code = CINDI) ID NOW COVID-19 Assay is an isothermal nucleic acid amplification test intended for the qualitative detection of nucleic acid from SARS-CoV-2 viral RNA in nasopharyngeal (MOSS GATHERER) specimens. It is used under Emergency Use [...] indicated. Lab Interpretation Normal (test code = 34235-8) [facility] 16:37:00 Test Item Value Reference Range Interpretation Comments ALCOHOL (test code = 196 mg/dL 6013657204) CINDI (test code = Toxic Greater than or CINDI) equal to 80 mg/dL. NOTE: Whole blood values are approximately 10% to 15% lower than serum and plasma. [facility] METABOLIC PANEL (NA, K, CL, CO2, GLUCOSE, BUN, CREATININE, CA)2020-12-25 16:37:00 Test Item Value Reference Range Interpretation Comments NA (test code = 144 mmol/L 135-145 1013312290) K (test code = 4.4 mmol/L 3.5-5 8910041122) CL (test code = 109 mmol/L 98-108 H 8546105270) CO2 TOTAL (test code = 22 mmol/L 23-31 L 8575831930) AGAP (test code = 2-16 9767635229) BUN (test code = 9 mg/dL 7-23 8350229504) GLUCOSE (test code = 103 mg/dL 70-110 2998005040) CREATININE (test code = 0.66 mg/dL 0.5-1.04 1761705115) CALCIUM (test code = 8.9 mg/dL 8.6-10.6 9305601325) eGFR Calculation mL/min/1.73m2 (Non-) (test code = 4795276901) eGFR Calculation mL/min/1.73m2 () (test code = 2862926969) CINDI (test code = CINDI) Association of [...] tests). Lab Interpretation Abnormal (test code = 09667-0) [facility] WITH [id number] 16:25:00 Test Item Value Reference Range Interpretation Comments WBC (test code = See_Comment H [Automated 2690-2) message] The sy stem which generated this result transmitted reference range : 4.30 - 11.10 10*3/?L. The reference range was not used to interpret this result as normal/abnormal . RBC (test code = See_Comment [Automated 339-8) message] The sy stem which generated this [...] RDW-SD (test code = 41.1 fL 39-49.9 82320-0) RDW-CV (test code = 12.3 % 12-15.5 788-0) PLT (test code = See_Comment H [Automated 777-3) message] The sy stem which generated this result transmitted reference range : 166 - 358 10*3/ ?L. The reference r carlos was not used to interpret this result as normal/abnormal . MPV (test code = 9.2 fL 9.5-12.9 L 09629-4) NRBC/100 WBC (test See_Comment [Automat ed code = 5542031997) message] The system which generated this result transmitted reference range : 0.0 - 10.0 /100 WBCs. The refer ence range was not u sed to interpret th is result as normal/abnormal . NRBC x10^3 (test code <0.01 See_Comment [Auto mated = 7184599936) message] The s ystem which generated this result transmitted reference range : 10*3/?L. The reference range was not used to interpret this result as normal/abnormal . GRAN MAT (NEUT) % 68.0 % (test code = 770-8) IMM GRAN % (test code 0.50 % = 0074189359) LYMPH % (test code = 20.5 % 736-9) MONO % (test code = 6.6 % 5905-5) EOS % (test code = 3.9 % 713-8) BASO % (test code = 0.5 % 706-2) GRAN MAT x10^3(ANC) 8.09 10*3/uL 1.88-7.09 H (test code = 3308355544) IMM GRAN x10^3 (test 0.06 10*3/uL 0-0.06 code = 3881152577) LYMPH x10^3 (test code 2.43 10*3/uL 1.32-3.29 = 731-0) MONO x10^3 (test code 0.78 10*3/uL 0.33-0.92 = 742-7) EOS x10^3 (test code = 0.46 10*3/uL 0.03-0.39 H 711-2) BASO x10^3 (test code 0.06 10*3/uL 0.01-0.07 = 704-7) Lab Interpretation Abnormal (test code = 25895-6) [facility] RAPID TESTING)2020-07-15 19:30:00 Test Item Value Reference Range Interpretation Comments SARS-CoV-2 Rapid ID NOW Not Detected Not Detected (test code = 07853-0) CINDI (test code = CINDI) ID NOW COVID-19 Assay is an isothermal nucleic acid amplification test intended for the qualitative detection of nucleic acid from SARS-CoV-2 viral RNA in nasopharyngeal (MOSS GATHERER) specimens. It is used under Emergency Use [...] indicated. Lab Interpretation Normal (test code = 17859-5) [facility] METABOLIC PANEL (32693)2020-07-15 19:20:00 Test Item Value Reference Range Interpretation Comments NA (test code = 136 mmol/L 135-145 5153578305) K (test code = 4.6 mmol/L 3.5-5 4116623187) CL (test code = 102 mmol/L 98-108 0013982665) CO2 TOTAL (test code = 21 mmol/L 23-31 L 5330226979) AGAP (test code = 2-16 6432058759) BUN (test code = 7 mg/dL 7-23 3750743614) GLUCOSE (test code = 102 mg/dL 70-110 9265539936) CREATININE (test code = 0.82 mg/dL 0.5-1.04 5694225923) TOTAL BILI (test code = 0.8 mg/dL 0.1-1.2 8541581375) CALCIUM (test code = 9.8 mg/dL 8.6-10.6 2960068960) T PROTEIN (test code = 8.4 g/dL 6.3-8.2 H 6324238585) ALBUMIN (test code = 4.8 g/dL 3.5-5 4181354713) ALK PHOS (test code = 102 U/L 34-122 0608560482) ALTv (test code = 25 U/L 5-35 1742-6) AST(SGOT) (test code = 41 U/L 13-40 H 8476674675) eGFR Calculation mL/min/1.73m2 (Non-) (test code = 6782305928) eGFR Calculation mL/min/1.73m2 () (test code = 8883352801) CINDI (test code = CINDI) Association of [...] tests). Lab Interpretation Abnormal (test code = 74375-1) [facility]14 19:20:00 Test Item Value Reference Range Interpretation Comments APPEARANCE (test code = Hazy Clear A 6877140247) COLOR (test code = Yvonne Yellow A 4318794754) PH (test code = 4.8-8.0 7097834518) SP GRAVITY (test code = 1.003-1.030 7555709200) GLU U QUAL (test code = Normal Normal 0362813553) BLOOD (test code = Negative Negative 7341934096) KETONES (test code = 5 mg/dL Negative A 9753527318) PROTEIN (test code = 30 mg/dL Negative A 2887-8) UROBILIN (test code = 2.0 mg/dL Normal A 4390363753) BILIRUBIN (test code = Negative Negative 4311537885) NITRITE (test code = Negative Negative 4318491116) LEUK SHIRLEY (test code = 25/uL Negative A 6937017493) RBC/HPF (test code = See_Comment [Autom ated message] 5589939544) The system [employer] generated this result transmit fatemeh reference range : 0 - 3 HPF. The refe rence range was not u sed to interpret th is result as normal/abnormal . WBC/HPF (test code = See_Comment [Autom ated message] 2398999711) The system [employer] generated this result transmit fatemeh reference range : 0 - 5 HPF. The refe rence range was not u sed to interpret th is result as normal/abnormal . BACTERIA (test code = Few Negative A 7835119058) MUCOUS (test code = Moderate Negative LPF A 7540053323) SQ EPITH (test code = HPF 4227443653) HYAL CAST (test code = See_Comment H [Aut omated message] 4147665483) The system [employer] generated this result transmit fatemeh reference range : <=2 LPF. The refere nce range was not u sed to interpret th is result as normal/abnormal . Lab Interpretation (test Abnormal code = 93255-1) [facility] WITH [id number] 19:07:00 Test Item Value Reference Range Interpretation Comments WBC (test code = See_Comment H [Automated 9090-2) message] The system which generated this result [...] (test code = 38.5 fL 39-49.9 L 04479-8) RDW-CV (test code = 11.9 % 12-15.5 L 788-0) PLT (test code = See_Comment [Automated 777-3) message] The system which generated this result transmit fatemeh reference range : 166 - 358 10*3/ ?L. The reference range was not u sed to interpret th is result as normal/abnormal . MPV (test code = 9.5 fL 9.5-12.9 54126-1) NRBC/100 WBC (test See_Comment [Automat ed code = 6093738867) message] The system which generated this result transmit fatemeh reference range : 0.0 - 10.0 /100 WBCs. The reference range was not used to interpret this result as normal/abnormal . NRBC x10^3 (test code <0.01 See_Comment [Auto mated = 2644987333) message] The system which generated this result transmit fatemeh reference range : 10*3/?L. The reference range was not used to interpret this result as normal/abnormal . GRAN MAT (NEUT) % 79.2 % (test code = 770-8) IMM GRAN % (test code 0.40 % = 5291303316) LYMPH % (test code = 12.9 % 736-9) MONO % (test code = 5.2 % 5905-5) EOS % (test code = 1.9 % 713-8) BASO % (test code = 0.4 % 706-2) GRAN MAT x10^3(ANC) 11.12 10*3/uL 1.88-7.09 H (test code = 4054331334) IMM GRAN x10^3 (test 0.05 10*3/uL 0-0.06 code = 9439614786) LYMPH x10^3 (test code 1.81 10*3/uL 1.32-3.29 = 731-0) MONO x10^3 (test code 0.73 10*3/uL 0.33-0.92 = 742-7) EOS x10^3 (test code = 0.27 10*3/uL 0.03-0.39 711-2) BASO x10^3 (test code 0.05 10*3/uL 0.01-0.07 = 704-7) Lab Interpretation Abnormal (test code = 27513-0) [facility] [id number] 18:47:00 Test Item Value Reference Range Interpretation Comments POCT PREG (test code = 1605) negative On board controls acceptable with present C Line (test code = 3574) POCT PREG LOT # (test code = 3575) [id number] POCT PREG TEST DATE (test code = 3576) Lab Interpretation (test code = Normal 99410-8) [facility] 1 [id number] 22:08:34 No acute cardiopulmonary process. Preliminary Report [...] study and agree with theabove report. [facility] VW [id number] 12:56:21 1. No acute intrathoracic abnormality, specifically no detectableradiographic findings to suggest COVID-19 pneumonia. Disclaimer: Generally, the findings on chest imaging in COVID-19 are notspecific, and overlap with other infections, including influenza, H1N1,SARS and MERS.According to the Centers for Disease Control (CDC) and the [employer], viral testing remains the only [...] Centers for Disease Control (CDC) and the [employer], viral testing remains the only specific method of diagnosiseven if CXR or CT findings are suggestive of COVID-19. Preliminary Report Dictated by Resident: Margy Ocasio MD.,have reviewed this study and agree with theabove report.[facility] METABOLIC PANEL (23446)2020-03-22 08:04:00 Test Item Value Reference Range Interpretation Comments NA (test code = 138 mmol/L 135-145 9990475885) K (test code = 3.5 mmol/L 3.5-5 6796014661) CL (test code = 105 mmol/L 98-108 2590918894) CO2 TOTAL (test code = 22 mmol/L 23-31 L 4915158292) AGAP (test code = 2-16 6685633487) BUN (test code = 7 mg/dL 7-23 3466744193) GLUCOSE (test code = 99 mg/dL 70-110 7551187483) CREATININE (test code = 0.74 mg/dL 0.5-1.04 0904863617) TOTAL BILI (test code = 0.5 mg/dL 0.1-1.5 1350835043) CALCIUM (test code = 8.5 mg/dL 8.6-10.6 L 4373016713) T PROTEIN (test code = 6.7 g/dL 6.3-8.2 0778398527) ALBUMIN (test code = 4.1 g/dL 3.5-5 5931140135) ALK PHOS (test code = 74 U/L 34-122 6102769532) ALTv (test code = 32 U/L 5-35 1742-6) AST(SGOT) (test code = 54 U/L 13-40 H 5397186888) eGFR Calculation mL/min/1.73m2 (Non-) (test code = 1186397506) eGFR Calculation mL/min/1.73m2 () (test code = 6483981119) CINDI (test code = CINDI) Association of [...] tests). Lab Interpretation Abnormal (test code = 32143-3) [facility] [id number] 07:57:00 Test Item Value Reference Range Interpretation Comments TROPONIN I (test <0.012 See_Comment [Automated code = 5729555262) message] The system which generated this result [...] ? Lab Interpretation Normal (test code = 75254-7) [facility] COVID-19 [id number] 07:56:00 Test Item Value Reference Range Interpretation Comments SARS-CoV-2 (test code = Not Detected Not Detected 37089-5) CINDI (test code = CINDI) ID NOW COVID-19 Assay is an isothermal nucleic acid amplification test intended for the qualitative detection of nucleic acid from SARS-CoV-2 viral RNA in nasopharyngeal (MOSS GATHERER) specimens. It is used under Emergency Use [...] indicated. Lab Interpretation Normal (test code = 25140-0) [facility], [id number] 07:45:00 Test Item Value Reference Range Interpretation Comments LIPASE (test code = 0280129075) 58 U/L 0-220 Lab Interpretation (test code = Normal 96931-5) [facility] WITH [id number] 07:30:00 Test Item Value Reference Range Interpretation Comments WBC (test code = See_Comment [Automated 3295-2) message] The sy stem which generated this result transmitted reference range : 4.30 - 11.10 10*3/?L. The reference range was not used to interpret this result as normal/abnormal . RBC (test code = See_Comment [Automated 288-8) message] The sy stem which generated this [...] RDW-SD (test code = 39.8 fL 39-49.9 82214-1) RDW-CV (test code = 12.1 % 12-15.5 788-0) PLT (test code = See_Comment [Automated 138-3) message] The sy stem which generated this result transmitted reference range : 166 - 358 10*3/ ?L. The reference r carlos was not used to interpret this result as normal/abnormal . MPV (test code = 9.2 fL 9.5-12.9 L 43637-6) NRBC/100 WBC (test See_Comment [Automat ed code = 0846254829) message] The system which generated this result transmitted reference range : 0.0 - 10.0 /100 WBCs. The refer ence range was not u sed to interpret th is result as normal/abnormal . NRBC x10^3 (test code <0.01 See_Comment [Auto mated = 5048092302) message] The s ystem which generated this result transmitted reference range : 10*3/?L. The reference range was not used to interpret this result as normal/abnormal . GRAN MAT (NEUT) % 62.2 % (test code = 770-8) IMM GRAN % (test code 0.50 % = 5525272868) LYMPH % (test code = 24.6 % 736-9) MONO % (test code = 7.7 % 5905-5) EOS % (test code = 4.5 % 713-8) BASO % (test code = 0.5 % 706-2) GRAN MAT x10^3(ANC) 6.71 10*3/uL 1.88-7.09 (test code = 7618080067) IMM GRAN x10^3 (test 0.05 10*3/uL 0-0.06 code = 5653638108) LYMPH x10^3 (test code 2.65 10*3/uL 1.32-3.29 = 731-0) MONO x10^3 (test code 0.83 10*3/uL 0.33-0.92 = 742-7) EOS x10^3 (test code = 0.49 10*3/uL 0.03-0.39 H 711-2) BASO x10^3 (test code 0.05 10*3/uL 0.01-0.07 = 704-7) Lab Interpretation Abnormal (test code = 31948-8) [facility] [id number] 17:09:00 Test Item Value Reference Range Interpretation [...] = ALKP) Specimen comments: ccSpecimen comments: SEPSIS [id number] 17:09:00 Test Item Value Reference Range Interpretation Comments LIPASE (test code = LIP) 318 Unit/L 114-286 H Specimen comments: ccSpecimen comments: SEPSIS [id number] 17:09:00 Test Item Value Reference Range Interpretation [...] = ALKP) Specimen comments: ccSpecimen comments: SEPSIS [id number] 17:03:00 Test Item Value Reference Range Interpretation Comments LIPASE (test code = LIP) 318 Unit/L 114-286 H Specimen comments: ccSpecimen comments: SEPSIS [id number] 17:03:00 Test Item Value Reference Range Interpretation [...] PROCAL) Specimen comments: ccSpecimen comments: SEPSIS WORKUPLACTIC [id number] 17:01:00 Test Item Value Reference Range Interpretation Comments LACTIC ACID (test code = LACT) 1.4 mmol/L 0.4-2.0 N Specimen comments: ccBASIC METABOLIC [id number] 16:58:00 Test Item Value Reference Range Interpretation [...] = ALKP) Specimen comments: ccSpecimen comments: SEPSIS [id number] 16:58:00 Test Item Value Reference Range Interpretation Comments LIPASE (test code = LIP) 318 Unit/L 114-286 H Specimen comments: ccSpecimen comments: SEPSIS [id number] 16:58:00 Test Item Value Reference Range Interpretation [...] HE NEGATIVERESULT DOES NOT RULE OUT THE [place] ESENCE OF STREP GROUP A.W HEN STREP GROUP A ANTIGEN IS DETECTED, THE P OSITIVE RESULTIS SIGNIF ICANT. NEGATIVE RESULT S REFLEX A CULTURE. FORNEG ATIVE RESULTS A CULTU RE IS IN PROGRESS, RESUL T TO FOLLOW. HCG SERUM [id number] 16:55:00 Test Item Value Reference Range Interpretation Comments HCG SERUM QUAL (test code = HCGQL) NEG SCREEN NEG Specimen comments: SEPSIS WORKUP- XR CHEST 2 [id number] 16:55:00 FAX: Julia Sanz [phone] [place]: St: PRE Patient Name: JAIDEN PLATA Unit No: [id number] EXAMS: CPT CODE: [id number] XR CHEST 2 V 55072 PA and lateral views of the chest [...] 02/17/2020 (1657) KILLIAN Crawford NAME: JAIDEN PLATA [address] [place] [address] [place]YS: [place], [place] [address] : 1980 AGE: 39 SEX: F LOC: [facility] PHONE #: [phone] EXAM DATE: 02/17/2020 STATUS: PRE ER FAX #: [phone] RAD NO: DC Dt: PAGE 1 Signed ReportUA RFLX MICR CULT IF [id number] 16:51:00 Test Item Value Reference Range Interpretation [...] Sepsis-no other srcUA RFLX MICR CULT IF [id number] 16:47:00 Test Item Value Reference Range Interpretation [...] for culture: Sev. Sepsis-no other srcCBC W/AUTO [id number] 16:45:00 Test Item Value Reference Range Interpretation [...]
[2023-09-30] MEDS ORDERED: ALBUTEROL 2.5 MG/3 ML NEB SOL ONE (22:49)
[2023-09-30] MEDS ORDERED: DIPHENHYDRAMINE 50 MG/ML VIAL ONE (22:49)
[2023-09-30] MEDS ORDERED: IPRATROPIUM BROM 0.5MG/2.5ML ONE (22:49)
[2023-09-30] MEDS ORDERED: METHYLPREDNISOLONE 125 MG INJ ONE (22:50)
[2023-09-30] MEDS ORDERED: ONDANSETRON 4 MG/2 ML VIAL ONE (22:57)
[2023-09-30] MEDS ORDERED: NA CHLORIDE 0.9% 2,000 ML ONE (22:59)
[2023-09-30] MEDS ORDERED: FAMOTIDINE 20 MG/2 ML VIAL IV ONE (23:06)
[2023-09-30 23:26] LABS: Protime INR 0.88
[2023-09-30 23:31] LABS: Absolute Lymphocytes (CBC) 4.5 K/uL (0.7-4.9); Hematocrit 38.5 % (36.0-45.0); Lymphocytes % 27.9 % (15.3-44.8); MCV 95.4 fL (80-100); MPV 7.5 fL (7.6-11.3); Platelets 319 thou/uL (152-406); RBC Red Blood Cell Count 4.04 M/uL (3.86-4.86)
[2023-09-30 23:39] LABS: ALT/SGPT 37 U/L (13-56); AST/SGOT 26 U/L (15-37); Albumin 3.6 g/dL (3.4-5.0); Alkaline Phosphatase 129 U/L (45-117); BUN Blood Urea Nitrogen 6 mg/dL (7-18); Bicarbonate 25 mEq/L (21-32); Bilirubin Total 0.2 mg/dL (0.2-1.0); Glomerular Filtration Rate 79 ml/min (=/>90); Glucose Level 126 mg/dL (74-106); Potassium 3.8 mEq/L (3.5-5.1); Protein, Total 7.8 g/dL (6.4-8.2); Sodium Level 142 mEq/L (136-145); Troponin High Sensitivity 4.5 pg/mL (<58.9)
[2023-09-30 23:46] LABS: Bilirubin Direct < 0.1 mg/dL (0-0.2); Bilirubin Indirect, Calculated ND mg/dL (0.2-0.8)
[2023-10-01] MEDS ORDERED: NA CHLORIDE 0.9% 1,000 ML ONE (02:10)
--- NOTE | 2023-10-01 02:50 | ER ---
Nurse's Notes [facility] Name: Gabrielle Plata Age: 43 yrs Sex: Female : 1980 Arrival Date: 09/30/2023 Time: 22:33 Bed 3 Private MD: Diagnosis: Allergy to seafood;Alcohol use, unspecified with intoxication Presentation: 09/30 23:01 Chief complaint: Patient states: she's having an allergic reaction to some fish that jw7 she ate, stated "I'm allergic to saltwater fish" and didn't realize the fish she ate was saltwater fish. Coronavirus screen: At this time, the client does not indicate any symptoms associated with coronavirus-19. Ebola Screen: No symptoms or risks identified at this time. Onset: The symptoms/episode began/occurred acutely. Anaphylaxis evaluation, the patient reports or I have noted the following symptoms which indicate a significant risk of anaphylaxis: shortness of breath syncope tachypnea. Initial Sepsis Screen: Does the patient meet any 2 criteria? RR > 20 per min. HR > 90 bpm. Yes Does the patient have a suspected source of infection? No. Patient's initial sepsis screen is negative. If YES to both, name of provider notified: Sam CARDENAS. Risk Assessment: Do you want to hurt yourself or someone else? Patient reports no desire to harm self or others. Onset of symptoms was September 30, 2023. Care prior to arrival: Medication(s) given: EPI Shot. 23:01 Method Of Arrival: EMS: [facility] jw7 23:01 Acuity: CATHIE 2 jw7 Triage Assessment: 23:19 General: Appears distressed, uncomfortable, Behavior is cooperative, anxious. Pain: jw7 Denies pain. EENT: Oral mucosa is moist. Throat is clear with gag reflex absent. Neuro: White Agitation-Sedation Scale (RASS): +1 Restless Level of Consciousness is awake, alert, obeys commands, Oriented to person, place, time, situation. Cardiovascular: Heart tones S1 S2 present Capillary refill < 3 seconds Clubbing of nail beds is absent JVD is absent Patient's skin is warm and dry. Pulses are all present. Respiratory: Airway is patent Trachea midline Respiratory effort is even, labored, Respiratory pattern is regular, symmetrical, tachypnea Breath sounds with wheezes bilaterally. GI: Abdomen is flat, non-distended, Bowel sounds present X 4 quads. Abd is soft and non tender X 4 quads. : No deficits noted. No signs and/or symptoms were reported regarding the genitourinary system. Derm: Skin is intact, is healthy with good turgor, Skin is dry, Skin is normal, Skin temperature is warm. Musculoskeletal: Circulation, motion, and sensation intact. Range of motion: intact in all extremities. Historical: - Allergies: 23:19 cefepime; jw7 23:19 Codeine; jw7 23:19 Demerol; jw7 23:19 Sulfa (Sulfonamide Antibiotics); jw7 23:19 Tramadol HCl; jw7 - PMHx: 23:19 Anxiety; Crohn's Disease; Gretta Parikh tears; MRSA; jw7 - PSHx: 23:19 abdominal surgery due to foreign object; bladder surgery; breast augmentation; jw7 Cholecystectomy; tubal ligation; urethra surgery; - Immunization history:: Adult Immunizations up to date. - Social history:: Smoking status: Patient denies any tobacco usage or history of. Screenin:23 [facility] ED Fall Risk Assessment (Adult) History of falling in the last 3 months, jw7 including since admission No falls in past 3 months (0 pts) Score/Fall Risk Level 0 - 2 = Low Risk Oriented to surroundings, Maintained a safe environment. Abuse screen: Denies threats or abuse. Denies injuries from another. Nutritional screening: No deficits noted. Tuberculosis screening: No symptoms or risk factors identified. Assessment: 23:20 General: see triage assessment . jw7 23:20 General: pt denies any suicidal ideation at this time. jw7 10/01 00:18 Reassessment: Patient appears in no apparent distress at this time. Patient and/or jw7 family updated on plan of care and expected duration. Pain level reassessed. Patient is alert, oriented x 3, equal unlabored respirations, skin warm/dry/pink. Patient states feeling better. Patient states symptoms have improved. 01:00 General: pt accidentally dislodged the hub/port from her IV, blood noted on floor and jw7 in stretcher. Pt Alert and oriented X4, vitals stable. . 01:16 Reassessment: Patient appears in no apparent distress at this time. No changes from jw7 previously documented assessment. Patient and/or family updated on plan of care and expected duration. Pain level reassessed. Patient is alert, oriented x 3, equal unlabored respirations, skin warm/dry/pink. 02:30 Reassessment: Patient appears in no apparent distress at this time. No changes from jw previously documented assessment. Patient and/or family updated on plan of care and expected duration. Pain level reassessed. Patient is alert, oriented x 3, equal unlabored respirations, skin warm/dry/pink. Vital Signs: 09/30 23:01 BP 142 / 88; Pulse 113; Resp 28; Temp 98.6; Pulse Ox 100% on 3 lpm NC; Weight 53.07 kg; jw7 Height 5 ft. 0 in. ; Pain 0/10; 23:41 BP 113 / 67; Pulse 113; Resp 22; Pulse Ox 99% on 3 lpm NC; jw7 10/01 01:17 BP 123 / 77; Pulse 111; Resp 23 S; Pulse Ox 96% on R/A; jw7 02:30 BP 121 / 73; Pulse 109; Resp 19; Pulse Ox 98% on R/A; jw7 09/30 23:01 Body Mass Index 22.85 (53.07 kg, 152.4 cm) jw7 09/30 23:01 Pain Scale: Adult jw ED Course: 09/30 22:36 Patient arrived in ED. rv1 22:43 Sam John PA is PHCP. cp 22:43 Rene Pearson MD is Attending Physician. cp 22:51 Initial lab(s) drawn, by ED staff, sent to lab. Inserted saline lock: 20 gauge in right jw antecubital area, using aseptic technique. Blood collected. 23:13 XRAY Chest (1 view) In Process Unspecified. EDMS 23:19 Triage completed. jw7 23:19 Arm band placed on. jw7 23:23 Patient has correct armband on for positive identification. Placed in gown. Bed in low jw7 position. Call light in reach. Side rails up X2. 23:38 EKG done, by ED staff, reviewed by Sam CARDENAS. jw7 10/01 02:35 Urinalysis w/ reflexes Sent. pf1 02:35 Test, Urine Sent. pf1 03:07 No provider procedures requiring assistance completed. IV discontinued, intact, jw7 bleeding controlled, No redness/swelling at site. Pressure dressing applied. 03:07 Provided Education on: discharge instructions and medication usage. jw Administered Medications: 09/30 22:52 Drug: NS 0.9% IV 1000 ml IV at 1 bolus Per protocol; 1000 mL bolus Route: IV; Rate: 1 jw7 bolus; Site: right antecubital; 10/01 01:55 Follow up: Response: No adverse reaction; IV Status: Completed infusion; IV Intake: jw7 1000ml 09/30 22:52 Drug: diphenhydrAMINE IVP 50 mg IVP once Route: IVP; Site: right antecubital; 7 10/01 01:56 Follow up: Response: No adverse reaction; Marked relief of symptoms 7 09/30 22:52 Drug: Ondansetron IVP 4 mg IVP once; over 2 minutes Route: IVP; Site: right antecubital;7 10/01 01:56 Follow up: Response: No adverse reaction; Marked relief of symptoms 7 09/30 22:52 Drug: MethylPrednisoLONE IVP 125 mg IVP once Route: IVP; Site: right antecubital; 7 10/01 01:56 Follow up: Response: No adverse reaction; Marked relief of symptoms 7 09/30 22:52 Drug: NS 0.9% IV 1000 ml IV at 1 bolus Per protocol; 1000 mL bolus Route: IV; Rate: 1 jw7 bolus; Site: right antecubital; 10/01 03:06 Follow up: Response: No adverse reaction; IV Status: Completed infusion; IV Intake: jw7 1000ml 09/30 22:52 Drug: DuoNeb Nebulize (2.5 mg - 0.5 mg) 3 ml Nebulizer once Route: Nebulizer; 7 10/01 01:56 Follow up: Response: No adverse reaction; Marked relief of symptoms 7 09/30 22:53 Drug: NS 0.9% IV 1000 ml IV at 1 bolus Per protocol; 1000 mL bolus Route: IV; Rate: 1 jw7 bolus; Site: right antecubital; 10/01 01:55 Follow up: Response: No adverse reaction; IV Status: Completed infusion; IV Intake: jw7 1000ml 09/30 22:55 Drug: Famotidine IVP 20 mg IVP once; dilute with 10 mL 0.9% NaCl; give over 2 minutes jw7 Route: IVP; Site: right antecubital; 10/01 01:56 Follow up: Response: No adverse reaction; Marked relief of symptoms jw7 03:06 Drug: Macrobid PO 100 mg PO once; administer with food Route: PO; jw7 03:06 Follow up: Response: No adverse reaction jw7 Medication: 03:08 VIS not applicable for this client. jw7 Intake: 01:55 IV: 1000ml; Total: 1000ml. jw7 01:55 IV: 1000ml; Total: 2000ml. jw7 03:06 IV: 1000ml; Total: 3000ml. jw7 Outcome: 02:49 Discharge ordered by MD. kenny 03:07 Discharged to home ambulatory, jw7 03:07 Condition: stable 03:07 Discharge instructions given to patient, Instructed on discharge instructions, follow up and referral plans. medication usage, Demonstrated understanding of instructions, follow-up care, medications, Prescriptions given X 4, 03:08 Patient left the ED. jw7 Signatures: Dispatcher [employer] EDMS Sam John PA PA cp Waits, Jodi RN RN jw7 Sis Berry RN RN pf1 Michelle Stafford rv1 Corrections: (The following items were deleted from the chart) 09/30 23:39 23:38 General: see triage assessment . jw7 jw7
--- NOTE | 2023-10-01 02:50 | EDPHYS ---
Physician Documentation [facility] Name: Gabrielle Plata Age: 43 yrs Sex: Female : 1980 Arrival Date: 09/30/2023 Time: 22:33 Bed 3 Private MD: ED Physician Rene Pearson HPI: 09/30 22:50 This 43 yrs old Female presents to ER via EMS with complaints of Allergic Reaction. cp 22:50 The patient presents with shortness of breath, syncope. cp 22:50 Onset: The symptoms/episode began/occurred just prior to arrival. cp 22:50 Associated signs and symptoms: Pertinent positives: shortness of breath, syncope, cp vomiting, wheezing, Pertinent negatives: abdominal pain, chest pain, fever. Possible causes: symptoms started after eating a saltwater fish tonight given accidentally from her boyfriend. EMS reports administering epi injection. Historical: - Allergies: 23:19 cefepime; jw7 23:19 Codeine; jw7 23:19 Demerol; jw7 23:19 Sulfa (Sulfonamide Antibiotics); jw7 23:19 Tramadol HCl; jw7 - PMHx: 23:19 Anxiety; Crohn's Disease; Gretta Parikh tears; MRSA; jw7 - PSHx: 23:19 abdominal surgery due to foreign object; bladder surgery; breast augmentation; jw7 Cholecystectomy; tubal ligation; urethra surgery; - Immunization history:: Adult Immunizations up to date. - Social history:: Smoking status: Patient denies any tobacco usage or history of. ROS: 22:55 Constitutional: Negative for chills, fever, poor PO intake, cp 22:55 Eyes: Negative for injury, pain, redness, and discharge, cp 22:55 ENT: Negative for drainage from ear(s), ear pain, difficulty swallowing, difficulty handling secretions, 22:55 Cardiovascular: Negative for chest pain, edema, 22:55 Respiratory: Positive for cough, shortness of breath, at rest. wheezing, 22:55 Abdomen/GI: Positive for nausea and vomiting, Negative for diarrhea, constipation, 22:55 Skin: Negative for rash, 22:55 Neuro: Positive for syncope, Negative for altered mental status, seizure activity, 22:55 All other systems are negative, Exam: 23:00 Constitutional: The patient appears in no acute distress, alert, awake, cp non-diaphoretic, non-toxic, well developed, well nourished, 23:00 Head/Face: Normocephalic, atraumatic. cp 23:00 Eyes: Periorbital structures: appear normal, Pupils: equal, round, and reactive to light and accomodation, Extraocular movements: intact throughout, Conjunctiva: normal, no exudate, no injection, Sclera: no appreciated abnormality, Lids and lashes: appear normal, bilaterally, 23:00 ENT: External ear(s): are unremarkable, Nose: is normal, Mouth: Lips: moist, Oral mucosa: pink and intact, moist, Posterior pharynx: Airway: no evidence of obstruction, patent, swelling, is not appreciated, erythema, is not appreciated, Voice: is normal, 23:00 Neck: ROM/movement: is normal, is supple, without pain, no range of motions limitations, 23:00 Chest/axilla: Inspection: normal, Palpation: crepitus, is not appreciated, tenderness, is not appreciated, 23:00 Cardiovascular: Rate: tachycardic, Rhythm: regular, Edema: is not appreciated, JVD: is not appreciated, 23:00 Respiratory: mild respiratory distress is noted, Respirations: labored breathing, that is moderate, Breath sounds: stridor, is not appreciated, wheezing: that is mild, is heard diffusely, 23:00 Abdomen/GI: Inspection: distension, is not seen, Bowel sounds: active, all quadrants, Palpation: soft, in all quadrants, mild abdominal tenderness, in the left lower quadrant, rebound tenderness, is not appreciated, involuntary guarding, is not appreciated, 23:00 Back: pain, is absent, ROM is normal, 23:00 Skin: cellulitis, is not appreciated, no rash present. 23:00 Neuro: Orientation: to person, place \T\ time. Mentation: able to follow commands, slow to respond, Motor: moves all fours, strength is normal, Sensation: no obvious gross deficits, 23:33 ECG was reviewed by the Attending Physician. cp Vital Signs: 23:01 BP 142 / 88; Pulse 113; Resp 28; Temp 98.6; Pulse Ox 100% on 3 lpm NC; Weight 53.07 kg; jw7 Height 5 ft. 0 in. ; Pain 0/10; 23:41 BP 113 / 67; Pulse 113; Resp 22; Pulse Ox 99% on 3 lpm NC; jw7 10/01 01:17 BP 123 / 77; Pulse 111; Resp 23 S; Pulse Ox 96% on R/A; jw7 02:30 BP 121 / 73; Pulse 109; Resp 19; Pulse Ox 98% on R/A; jw7 09/30 23:01 Body Mass Index 22.85 (53.07 kg, 152.4 cm) [facility] 09/30 23:01 Pain Scale: Adult [facility] MDM: 09/30 22:45 Patient medically screened. 10/01 03:00 Data reviewed: vital signs, nurses notes, lab test result(s), EKG, radiologic studies, cp plain films. 03:00 Consideration of Admission/Observation Escalation of care including cp admission/observation considered. I considered the following discharge prescriptions or medication management in the emergency department Medications were administered in the Emergency Department. See MAR. Independent interpretation of the following test(s) in the Emergency Department EKG: See my EKG interpretation above. Counseling: I had a detailed discussion with the patient and/or guardian regarding the historical points, exam findings, and any diagnostic results supporting the discharge/admit diagnosis, lab results, radiology results, to return to the emergency department if symptoms worsen or persist or if there are any questions or concerns that arise at home. Response to treatment: the patient's symptoms have markedly improved after treatment, Vital signs stable. Patient reports symptoms markedly improved and appears to be resting comfortably in exam room. Will discharge to home for continued monitoring. 09/30 22:45 Order name: Acetaminophen; Complete Time: 00:28 10/01 01:20 Interpretation: Reviewed. 09/30 22:45 Order name: Basic Metabolic Panel; Complete Time: 00:28 10/01 01:20 Interpretation: Normal except: CL 109; GLUC 126; BUN 6; GFR 79. 09/30 22:45 Order name: CBC with Diff; Complete Time: 00:28 10/01 01:20 Interpretation: Normal except: WBC 16.10; MPV 7.5; NEUT A 10.3. 09/30 22:45 Order name: ETOH Level; Complete Time: 00:28 10/01 00:29 Interpretation: Abnormal: ETOH 270. 09/30 22:45 Order name: Hepatic Function; Complete Time: 00:28 10/01 01:20 Interpretation: Normal except: ALK 129; GLOB 4.2; A/G 0.9. cp 09/30 22:45 Order name: PT-INR; Complete Time: 00:28 cp 09/30 22:45 Order name: Test, Urine; Complete Time: 02:59 cp 09/30 22:45 Order name: Ptt, Activated; Complete Time: 00:28 cp 09/30 22:45 Order name: Salicylate; Complete Time: 00:28 cp 09/30 22:45 Order name: Urinalysis w/ reflexes; Complete Time: 02:59 cp 09/30 22:45 Order name: Urine Drug Screen; Complete Time: 02:59 cp 09/30 22:45 Order name: Troponin High Sensitivity; Complete Time: 00:28 cp 10/01 01:21 Interpretation: Reviewed. cp 09/30 22:45 Order name: XRAY Chest (1 view) cp 09/30 22:45 Order name: EKG; Complete Time: 22:46 cp 09/30 22:45 Order name: EKG - Nurse/Tech; Complete Time: 23:38 cp 09/30 22:45 Order name: IV Saline Lock; Complete Time: 22:53 cp 09/30 22:45 Order name: Labs collected and sent; Complete Time: 22:53 cp 09/30 22:45 Order name: Suicide Screening ([place]); Complete Time: 23:42 cp EC/30 23:33 Rate is 116 beats/min. Rhythm is regular. PA interval is normal. QRS interval is cp normal. QT interval is normal. T waves are Inverted. Interpreted by me. Reviewed by me. Administered Medications: 22:52 Drug: NS 0.9% IV 1000 ml IV at 1 bolus Per protocol; 1000 mL bolus Route: IV; Rate: 1 jw7 bolus; Site: right antecubital; 10/01 01:55 Follow up: Response: No adverse reaction; IV Status: Completed infusion; IV Intake: jw7 1000ml 09/30 22:52 Drug: diphenhydrAMINE IVP 50 mg IVP once Route: IVP; Site: right antecubital; jw7 10/01 01:56 Follow up: Response: No adverse reaction; Marked relief of symptoms jw7 09/30 22:52 Drug: Ondansetron IVP 4 mg IVP once; over 2 minutes Route: IVP; Site: right antecubital;jw7 10/01 01:56 Follow up: Response: No adverse reaction; Marked relief of symptoms jw7 09/30 22:52 Drug: MethylPrednisoLONE IVP 125 mg IVP once Route: IVP; Site: right antecubital; jw7 10/01 01:56 Follow up: Response: No adverse reaction; Marked relief of symptoms jw7 09/30 22:52 Drug: NS 0.9% IV 1000 ml IV at 1 bolus Per protocol; 1000 mL bolus Route: IV; Rate: 1 jw7 bolus; Site: right antecubital; 10/01 03:06 Follow up: Response: No adverse reaction; IV Status: Completed infusion; IV Intake: jw7 1000ml 09/30 22:52 Drug: DuoNeb Nebulize (2.5 mg - 0.5 mg) 3 ml Nebulizer once Route: Nebulizer; jw7 10/01 01:56 Follow up: Response: No adverse reaction; Marked relief of symptoms jw7 09/30 22:53 Drug: NS 0.9% IV 1000 ml IV at 1 bolus Per protocol; 1000 mL bolus Route: IV; Rate: 1 jw7 bolus; Site: right antecubital; 10/01 01:55 Follow up: Response: No adverse reaction; IV Status: Completed infusion; IV Intake: jw7 1000ml 09/30 22:55 Drug: Famotidine IVP 20 mg IVP once; dilute with 10 mL 0.9% NaCl; give over 2 minutes jw7 Route: IVP; Site: right antecubital; 10/01 01:56 Follow up: Response: No adverse reaction; Marked relief of symptoms jw7 03:06 Drug: Macrobid PO 100 mg PO once; administer with food Route: PO; jw7 03:06 Follow up: Response: No adverse reaction jw7 Disposition: 03:54 Co-signature as Attending Physician, Rene Pearson MD I agree with the assessment sp4 and plan of care. I reviewed the patient's care provided by Advanced Practice Provider \T\ agree w/ the diagnosis \T\ care plan. I personally saw the pt \T\ performed a substantive portion of the visit, incldng all aspects of the (History/Exam/Medical Decision Making). Disposition Summary: 10/01/23 02:49 Discharge Ordered Notes: Location: Home cp Problem: new cp Symptoms: have improved cp Condition: Stable cp Diagnosis - Allergy to seafood cp - Alcohol use, unspecified with intoxication cp Followup: cp - With: Private Physician - When: 1 - 2 days - Reason: Recheck today's complaints Discharge Instructions: - Discharge Summary Sheet cp - Alcohol Intoxication cp - Seafood Allergy cp Forms: - Medication Reconciliation Form cp - Thank You Letter cp - Antibiotic Education cp - Prescription Opioid Use cp - Patient Portal Instructions cp - Leadership Thank You Letter cp Prescriptions: - albuterol sulfate 90 mcg/actuation Inhalation HFA Aerosol Inhaler - inhale 1 puff INHALATION route every 4 hours as needed for bronchospasm; cp administer via ventilator; 1 unit; Refills: 0, Product Selection Permitted - Pepcid 20 mg Oral Tablet - take 1 tablet ORAL route every 12 hours for 5 days; 10 tablet; Refills: 0, cp Product Selection Permitted - Prednisone 20 mg Oral Tablet - take 2 tablets ORAL route once daily for 5 days; 10 tablet; Refills: 0, Product cp Selection Permitted Signatures: Dispatcher [employer] EDMS Sam John PA PA cp Oralia Momin RN RN jw7 Rene Pearson MD MD sp4 Corrections: (The following items were deleted from the chart) 10/02 02:17 10/01 03:00 Response to treatment: the patient's symptoms have markedly improved after cp treatment, Vital signs stable. Patient reports symptoms markedly improved and appears to be resting comfortably in exam room. Will discharge to home for continued monitoring prescriptions for oral steroids and oral Pepcid given and an antibiotic for UTI, cp
[2023-10-01 02:53] LABS: Specific Gravity 1.011 (1.005-1.030)
[2023-10-01 02:56] LABS: Barbiturates NEGATIVE (NEGATIVE); Benzodiazepines NEGATIVE (NEGATIVE); Cocaine NEGATIVE (NEGATIVE); METHAMPHETAM NEGATIVE (NEGATIVE); Methadone ND (NEGATIVE); Opiates NEGATIVE (NEGATIVE); Phencyclidine NEGATIVE (NEGATIVE); Specific Gravity 1.011 (1.005-1.030); THC Cannibis NEGATIVE (NEGATIVE); Urine Bacteria 20-50 /HPF (<20); Urine Bilirubin NEGATIVE (Negative); Urine Blood Negative (Negative); Urine Clarity Extremely Turbid (Clear); Urine Color Colorless (Yellow); Urine Glucose 1+ (Negative); Urine Mucus 1+ /HPF (None Seen); Urine Protein NEGATIVE (Negative); Urine RBC None Seen /HPF (None Seen); Urine Urobilinogen Normal (Normal); Urine pH 5.5 (5.0-7.0)
[2023-10-01] MEDS ORDERED: NITROFURAN MACRO 100 MG CAP PO ONE (03:19)
[2023-10-01 03:32] VITALS: TEMP 98.6
[2023-10-01 03:38] VITALS: BP 121/73; O2SAT 98
--- NOTE | 2023-10-01 07:49 | EKG ---
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
--- NOTE | 2023-10-01 15:24 | RAD REPORT ---
EXAM DESCRIPTION: RAD - Chest Single View - 09/30/2023 11:11 pm CLINICAL HISTORY: 3 years Female, SOB COMPARISON: Chest radiograph dated 03/18/2023 FINDINGS: No focal lung consolidation. No pleural effusion. No pneumothorax. Cardiomediastinal silhouette is within normal limits. No acute osseous abnormality. IMPRESSION: No acute cardiopulmonary disease. Electronically signed by: Otto Rueda DO 09/30/2023 11:20 PM CDT Due to temporary technical issues with the PACS/Fluency reporting system, reports are being signed by the in house radiologists without review as a courtesy to insure prompt reporting. The interpreting radiologist is fully responsible for the content of the report.
== END 2023-10-01 03:08 | disposition home or self-care (01) ==
LOC: ER 22:33
DX: F10.929 Alcohol use, unspecified with intoxication, unspecified (principal); Z91.013 Allergy to seafood
CPT/HCPCS: 36415; 71045; 80048; 80076; 80143; 80179; 80307; 81001; 81025; 82077; 84484; 85025; 85610; 85730; 93005; 94640; 96361; 96374; 96375; 99285; J1200; J2405; J2930; J7030; J7613; J7644

== ENCOUNTER 2023-10-11 06:26 | Emergency (ER) | payer SELFPAY ==
--- OUTSIDE RECORDS SUMMARY | 2023-10-11 06:35 | XMS REPORT | Continuity of Care Document ---
:1980 Author Organization [facility] t Address [address] [place] [place] [address] Care Team Providers Name Role Phone No, Pcp [facility] Primary Care Physician Unavailable YONAS FITZGERALD Attending Clinician Unavailable Lia BEASLEY, Yonas Arnold Attending Clinician Dyllan Weller MD Attending Clinician Marvin BEASLEY, Artur Rincon Attending Clinician [phone] Rakan Zartae MD Attending Clinician [phone] Grazyna Love MD Attending Clinician [phone] Dominique Jones Attending Clinician GRAZYNA LOVE Attending Clinician Unavailable Kiesha BEASLEY, Martita Jacques Attending Clinician Fernando Pandya MD Attending Clinician Doctor Unassigned, [place] Attending Clinician Unavailable Ramez BUCKNER, Ashely Attending Clinician Unavailable Fer BEASLEY, Antonio Attending Clinician [phone] Mojgan SHAH Attending Clinician Unavailable Mojgan Pires [...] Effective Date Expiration Date S neena [facility] [place] [id number] 2020 WOMEN 00:00:00 MATTHEW [id number] 2020 2020 00:00:00 00:00:00 AGENCY GENERIC VC 1950 2020 2020 00:00:00 00:00:00 Problems Condition Condition [...] of neck of 00:00: g of this [place] fifth fifth 00 note Medical metacarpal metacarpal might be Branch bone, bone, different right right from the hand, hand, original. 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 HPV+ on 2019 pap smear, patient needs repeat pap smear in 2020. Cervical Cervical Disease Active Overview: Un gracy high risk high risk 08-02 Formattin i ty of human human 00:00: g of this [place] papillomav papillomav 00 note Me dical irus [...] blood 8-25 ity of pressure pressure 00:00: [place] reading reading 00 Medical without without Branch diagnosis diagnosis of of hypertensi hypertensi on on Anxiety Anxiety Disease Active Univers 5-07 ity of 00:00: [place] [facility] Chest pain Chest pain Disease Active U nivers 4-21 ity of 00:00: [place] [facility] Screening Screening Disease Active Uni vers examinatio examinatio 2-05 it y of n for STD n for STD 00:00: [place] (sexually (sexually [address] [facility] transmitte transmitte Br anch d disease) d disease) Premature Premature Disease Active 2016-12 Uni vers labor labor 0-24 ity of 00:00: [place] [facility] 34 weeks 34 weeks Disease Active 2016-12 Unive rs gestation gestation 0-14 ity of of of 00:00: [place] 00 [facility] Disease Active 2016-12 Univers labor labor 0-14 ity of 00:00: [place] [facility] Crohn Crohn Disease Active Overview: Univer s disease disease 12-02 Formattin ity o f 00:00: g of this [place] 00 note Medical might be Branch different [...] Active MO 2020-0 [facility] ne HCl 3[facility]18 [place] [facility] Sulfa DA Active MO 2020-0 [facility] (Sulfona 3-18 [place] mide 00:00: Region Antibiot 00 l ics) Medical Center codeine DA Active MO 2020-0 [facility] 3-18 [place] 00:[facility]: [facility] 00 [facility] meperidi DA Active MO vomiting 2020-0 [facility] ne HCl chest 3-18 [place] tightness 00:00: [facility] 00 [facility] Sulfa DA Active MO rash chest 2020-0 [facility] (Sulfona tightness 3-18 [place] 00:00: Region Antibiot 00 l ics) Medical Center codeine DA Active MO rash chest 2020-0 [facility] tightness 3-18 [place] 00:[facility]: [facility] 00 [facility] Marijuan Propensi Active Anaphylaxis 2018-0 [...] DA Active MO [facility] ne HCl 8-26 [place] 00[facility]: [facility] 00 [facility] Sulfa DA Active MO [facility] (Sulfona 8-26 [place] mide 00:00: Regiona Antibiot 00 l ics) Medical Center codeine DA Active MO [facility] 8-26 [place] 00:[facility]: [facility] 00 [facility] meperidi DA Active MO vomiting [facility] ne HCl chest 8-26 [place] tightness 00:00: [facility] 00 [facility] Sulfa DA Active [place] rash chest [facility] (Sulfona tightness 8-26 [place] 00:00: Regiona Antibiot 00 l ics) Medical Center codeine DA Active [place] rash chest [facility] tightness 8-26 [place] 00:00: [facility] 00 [facility] Center Social History Social Habit Start Date Stop Date Quantity Comments Source History of tobacco Cigarette Smoker [facility] Sexual orientation Univer sity of [facility] History SDOH [facility] Non-Med Medical Center History SDOH 2023-04-21 2023-04-[address] [facility] Transport Med 00:00:00 00:00:[address] History [facility] 2023-04-21 2023-04-[address] [facility] Housing Unable to 00:00:00 00:00:00 Medical Center Pay History [facility] 2023-04-21 2023-04-[address] [facility] Housing Places 00:00:00 00:00:00 Medical Ce nter Lived History [facility] 2023-04-21 2023-04-[address] [facility] Housing Homeless 00:00:00 00:00:00 Medical Center Last Year Exposure to 2023-04-10 2023-04-[address] [facility] SARS-CoV-2 (event) 00:00:00 23:57:00 Medica Center History of Social 2023-03-27 2023-03-27 Univers ity of function 00:00:00 00:00:00 [facility] Branch Alcohol intake 2023-03-26 2023-03-26 Current drinker Unive rsity of 00:00:00 00:00:00 of alcohol [facility] (finding) Branch Tobacco use and 2023-03-25 2023-03-25 Smokeless tobacco Un iversity of exposure 00:00:00 00:00:00 non-user [facility] Branch Cigarettes smoked 2023-03-25 2023-03-25 Univers ity of current (pack per 00:00:00 00:00:00 [facility] ed) - Reported Branch Tobacco Comment 2023-03-25 2023-03-25 Occasional Smoker Un iversity of 00:00:00 00:00:00 [place] [facility] History [facility] 2020-07-26 2020-07-26 2 University o f Alcohol Frequency 00:00:00 00:00:00 [facility] edical Branch History [facility] 2020-07-26 2020-07-26 2 University o f Alcohol Std Drinks 00:00:00 00:00:00 [place] [facility] History [facility] 2020-07-26 2020-07-26 99 University o f Alcohol Binge 00:00:00 00:00:00 [facility] al Branch Alcohol Comment 2018-01-03 2018-01-03 Social Drinker Unive rsity of 00:00:00 00:00:00 [facility] Sex [birth year] At [birth year] AVEL Ron 00:00:00 00:00:00 Medical Center Smoking Status Start Date Stop Date Source Smokes tobacco daily 2023-03-25 00:00:00 [facility] Current some day smoker 2020-06-12 00:00:00 [facility] Medications Ordered Filled Start Stop Current Ordering Indication Dosage Frequency Signature Comments Components Source Medication Medication Date Date Medication? Clinician (SIG) Name Name ibuprofen Yes [id number] 600mg Take 1 [facility] 600 mg 6-30 tablet by ity of tablet 00:00: mouth 3 00 (three) Medical times Branch daily with meals as needed for Pain (scale 4-6) or Pain (scale 1-3). ibuprofen Yes [id number] 600mg Take 1 Univers 600 mg 6-30 [...] 2023-0 Yes [id number] 1{tbl} Take 1 Un grayc -acetaminop 5-30 tablet by ity of hen [...] Amount: 1 mg. TiZANidine 2023-0 Yes 4mg Q.[id number] Take [address] [facility] [address] (ZANAFLEX) 5-25 [id number] capsule (4 [facility] 4 MG 15:44: 3D mg total) Medical capsule 02 by mouth Center in the morning and 1 capsule (4 mg total) at noon and 1 capsule (4 mg total) in the evening. gabapentin 2023-0 Yes 300mg Q.33115099 Take [address] [facility] [address] (NEURONTIN) 5-25 [id number] capsule [facility] 300 MG 15:44: 3D (300 [...] Amount: 1 mg. TiZANidine 2023-0 Yes 4mg Q.[id number] Take [address] [facility] [address] (ZANAFLEX) 5-25 [id number] capsule (4 [facility] 4 MG 15:44: 3D mg total) Medical capsule 02 by mouth Center in the morning and 1 capsule (4 mg total) at noon and 1 capsule (4 mg total) in the evening. gabapentin 2023-0 Yes 300mg Q.[id number] Take [address] [facility] [address] (NEURONTIN) 5-25 [id number] capsule [facility] 300 MG 15:44: 3D (300 [...] Amount: 1 mg. TiZANidine 2023-0 Yes 4mg Q.47663400 Take [address] [facility] [address] (ZANAFLEX) 5-25 [id number] capsule (4 [facility] 4 MG 15:44: 3D mg total) Medical capsule 02 by mouth Center in the morning and 1 capsule (4 mg total) at noon and 1 capsule (4 mg total) in the evening. gabapentin 2023-0 Yes 300mg Q.03613612 Take [address] [facility] [address] (NEURONTIN) 5-25 [id number] capsule [facility] 300 MG 15:44: 3D (300 [...] Amount: 1 mg. TiZANidine 2023-0 Yes 4mg Q.43031438 Take [address] [facility] [address] (ZANAFLEX) 5-25 [id number] capsule (4 [facility] 4 MG 15:44: 3D mg total) Medical capsule 02 by mouth Center in the morning and 1 capsule (4 mg total) at noon and 1 capsule (4 mg total) in the evening. gabapentin 2023-0 Yes 300mg Q.[id number] Take [address] [facility] (NEURONTIN) 5-25 [id number] capsule [facility] 300 MG 15:44: 3D (300 [...] Amount: 1 mg. TiZANidine 2023-0 Yes 4mg Q.94102755 Take [address] [facility] (ZANAFLEX) 5-25 [id number] capsule (4 [facility] 4 MG 15:44: 3D mg total) Medical capsule 02 by mouth Center in the morning and 1 capsule (4 mg total) at noon and 1 capsule (4 mg total) in the evening. gabapentin 2023-0 Yes 300mg Q.86462565 Take [address] [facility] [address] (NEURONTIN) 5-25 [id number] capsule [facility] 300 MG 15:44: 3D (300 [...] Amount: 1 mg. TiZANidine 2023-0 Yes 4mg Q.49685695 Take [address] [facility] (ZANAFLEX) 5-25 [id number] capsule (4 [facility] 4 MG 15:44: 3D mg total) Medical capsule 02 by mouth Center in the morning and 1 capsule (4 mg total) at noon and 1 capsule (4 mg total) in the evening. gabapentin 2023-0 Yes 300mg Q.[id number] Take [address] [facility] [address] (NEURONTIN) 5-25 [id number] capsule [facility] 300 MG 15:44: 3D (300 [...] Amount: 1 mg. TiZANidine 2023-0 Yes 4mg Q.40093540 Take [address] [facility] [address] (ZANAFLEX) 5-25 [id number] capsule (4 [facility] 4 MG 15:44: 3D mg total) Medical capsule 02 by mouth Center in the morning and 1 capsule (4 mg total) at noon and 1 capsule (4 mg total) in the evening. gabapentin 2023-0 Yes 300mg Q.[id number] Take [address] [facility] [address] (NEURONTIN) 5-25 [id number] capsule [facility] 300 MG 15:44: 3D (300 [...] Amount: 1 mg. TiZANidine 2023-0 Yes 4mg Q.42953242 Take [address] [facility] [address] (ZANAFLEX) 5-25 [id number] capsule (4 [facility] 4 MG 15:44: 3D mg total) Medical capsule 02 by mouth Center in the morning and 1 capsule (4 mg total) at noon and 1 capsule (4 mg total) in the evening. gabapentin 2023-0 Yes 300mg Q.[id number] Take [address] [facility] [address] (NEURONTIN) 5-25 [id number] capsule [facility] 300 MG 15:44: 3D (300 [...] Amount: 1 mg. TiZANidine 2023-0 Yes 4mg Q.59287332 Take [address] (ZANAFLEX) 5-25 [id number] capsule (4 [facility] 4 MG 15:44: 3D mg total) Medical capsule 02 by mouth Center in the morning and 1 capsule (4 mg total) at noon and 1 capsule (4 mg total) in the evening. gabapentin 2023-0 Yes 300mg Q.[id number] Take [address] (NEURONTIN) 5-25 [id number] capsule [facility] 300 MG 15:44: 3D (300 [...] tablet every 8 (eight) hours. diclofenac 2022-0 2023- No 75mg Q.5D Take 1 [facility] [...] hours as needed for Nausea. ibuprofen 2022-0 3- No 600mg Take [address] [facility] (ADVIL,MOTR [...] tablet (75 mg total) before bedtime. promethazin 3-0 3- No 12.5mg Take [address] e 5-25 05-24 tablet [facility] (PHENERGAN) 15:44: 00:00 (12.5 mg M edical 12.5 MG 02 :00 total) by Center tablet mouth every 6 (six) hours as needed for Nausea. ibuprofen 2022-0 2023- No 600mg Take [address] [facility] (ADVIL,MOTR 5-25 05-24 tablet [facility] IN) 600 MG 15:44: 00:00 (600 mg Med ical tablet 02 :00 total) by Center mouth every 6 (six) hours as needed for Pain. cyclobenzap 202-0 2023- No 10mg Take [address] [facility] rine -25 -24 tablet (10 [facility] (FLEXERIL) 15:44: 00:00 mg total) M edical 10 MG 02 :00 by mouth Center tablet every 8 (eight) hours. diclofenac 202-0 3- No 75mg Q.5D Take [address] (VOLTAREN) -25 -24 tablet (75 Marcella kes 75 MG EC 15:44: 00:00 mg total) Med ical tablet 02 :00 by mouth Center in the morning and 1 tablet (75 mg total) before bedtime. promethazin 2022-0 2022- No 12.5mg Take [address] e -25 -24 tablet [facility] (PHENERGAN) 15:44: 00:00 (12.5 mg [...] hours as needed for Pain. cyclobenzap 2023-0 202- No 10mg Take [address] [facility] rine 04-25-24 tablet (10 [facility] (FLEXERIL) 15:44: 00:00 mg total) M edical 10 MG 02 :00 by mouth Center tablet every 8 (eight) hours. diclofenac 2022-0 2023- No 75mg Q.5D Take [address] [facility] (VOLTAREN) 25 -24 tablet (75 Marcella kes 75 MG EC 15:44: 00:00 mg total) Med ical tablet 02 :00 by mouth Center in the morning and 1 tablet (75 mg total) before bedtime. promethazin 3-0 3- No 12.5mg Take [address] e -25 -24 tablet [facility] (PHENERGAN) 15:44: 00:00 (12.5 mg M edical 12.5 MG 02 :00 total) by Center tablet mouth every 6 (six) hours as needed for Nausea. busPIRone 2023-0 Yes 5mg Q.[id number] Take [address] [facility] (BUSPAR) 5 5-24 [id number] tablet (5 [facility] MG tablet 15:44: 3D mg total) Med ical 47 by mouth Center in the morning and 1 tablet (5 mg total) at noon and 1 tablet (5 mg total) in the evening. busPIRone 2023-0 Yes 5mg Q.[id number] Take [address] [facility] (BUSPAR) 5 5-24 [id number] tablet (5 [facility] MG tablet 15:44: 3D mg total) Med ical 47 by mouth Center in the morning and 1 tablet (5 mg total) at noon and 1 tablet (5 mg total) in the evening. busPIRone 2023-0 Yes 5mg Q.[id number] Take [address] [facility] [address] (BUSPAR) 5 5-24 [id number] tablet (5 [facility] MG tablet 15:44: 3D mg total) Med ical 47 by mouth Center in the morning and 1 tablet (5 mg total) at noon and 1 tablet (5 mg total) in the evening. busPIRone 2023-0 Yes 5mg Q.48239080 Take [address] [facility] [address] (BUSPAR) 5 5-24 [id number] tablet (5 [facility] MG tablet 15:44: 3D mg total) Med ical 47 by mouth Center in the morning and 1 tablet (5 mg total) at noon and 1 tablet (5 mg total) in the evening. busPIRone 2023-0 Yes 5mg Q.96991396 Take [address] [facility] [address] (BUSPAR) 5 5-24 [id number] tablet (5 [facility] MG tablet 15:44: 3D mg total) Med ical 47 by mouth Center in the morning and 1 tablet (5 mg total) at noon and 1 tablet (5 mg total) in the evening. busPIRone 2023-0 Yes 5mg Q.37282775 Take [address] [facility] [address] (BUSPAR) 5 5-24 [id number] tablet (5 [facility] MG tablet 15:44: 3D mg total) Med ical 47 by mouth Center in the morning and 1 tablet (5 mg total) at noon and 1 tablet (5 mg total) in the evening. busPIRone 2023-0 Yes 5mg Q.[id number] Take [address] [facility] [address] (BUSPAR) 5 5-24 [id number] tablet (5 [facility] MG tablet 15:44: 3D mg total) Med ical 47 by mouth Center in the morning and 1 tablet (5 mg total) at noon and 1 tablet (5 mg total) in the evening. busPIRone 2023-0 Yes 5mg Q.36971518 Take [address] [facility] [address] (BUSPAR) 5 5-24 [id number] tablet (5 [facility] MG tablet 15:44: 3D mg total) Med ical 47 by mouth Center in the morning and 1 tablet (5 mg total) at noon and 1 tablet (5 mg total) in the evening. busPIRone 2023-0 Yes 5mg Q.02103707 Take [address] [facility] (BUSPAR) 5 5-24 [id number] tablet (5 [facility] MG tablet 15:44: 3D [...] Pain. Max Daily Amount: 4 tablets amoxicillin 3-0 Yes 500mg Q.[id number] Take [address] [facility] (AMOXIL) 5-24 [id number] tablet Martha es 500 MG 00:00: 3D (500 mg Medical tablet 00 total) by Center mouth in the morning and 1 tablet (500 mg total) at noon and 1 tablet (500 mg total) in the evening. lisinopriL 3-0 Yes 10mg QD Take 1 [facility] [...] Amount: 4 tablets amoxicillin 2023-0 Yes 500mg Q.52392595 Take [address] [facility] (AMOXIL) 5-24 [id number] tablet [place] es 500 MG 00:00: 3D [...] Amount: 4 tablets amoxicillin 2023-0 Yes 500mg Q.[id number] Take [address] [facility] (AMOXIL) 5-24 [id number] tablet [place] es 500 MG 00:00: 3D [...] Amount: 4 tablets amoxicillin 2023-0 Yes 500mg Q.[id number] Take [address] [facility] (AMOXIL) 5-24 [id number] tablet [place] es 500 MG 00:00: 3D [...] Amount: 4 tablets amoxicillin 2023-0 Yes 500mg Q.[id number] Take [address] [facility] (AMOXIL) 5-24 [id number] tablet [place] es 500 MG 00:00: 3D [...] Amount: 4 tablets amoxicillin 2023-0 Yes 500mg Q.[id number] Take [address] [facility] (AMOXIL) 5-24 [id number] tablet [place] es 500 MG 00:00: 3D [...] Amount: 4 tablets amoxicillin 2023-0 Yes 500mg Q.[id number] Take [address] [facility] (AMOXIL) 5-24 [id number] tablet [place] es 500 MG 00:00: 3D [...] Amount: 4 tablets amoxicillin 2023-0 Yes 500mg Q.[id number] Take [address] [facility] (AMOXIL) 5-24 [id number] tablet [place] es 500 MG 00:00: 3D [...] Amount: 4 tablets amoxicillin 2023-0 Yes 500mg Q.[id number] Take [address] [facility] (AMOXIL) 5-24 [id number] tablet Martha es 500 MG 00:00: 3D [...] QD Take [address] [facility] -24 -29 tablet [facility] (LEVAQUIN) 00:00: 23:59 (500 mg Med ical 500 MG 00 :00 total) by Center tablet mouth in the morning for 5 days. levoFLOXaci 2023-0 2023- No 500mg QD Take [address] [facility] -24 04-29 tablet [facility] (LEVAQUIN) 00:00: 23:59 (500 mg Med ical 500 MG 00 :00 total) by Center tablet mouth in the morning for 5 days. levoFLOXaci 2023-0 2023- No 500mg QD Take [address] n - 05-29 tablet [facility] (LEVAQUIN) 00:00: 23:59 (500 mg Med ical 500 MG 00 :00 total) by Center tablet mouth in the morning for 5 days. levoFLOXaci 2023-0 2023- No 500mg QD Take [address] n 04-24-29 tablet [facility] (LEVAQUIN) 00:00: 23:59 (500 mg Med ical 500 MG 00 :00 total) by Center tablet mouth in the morning for 5 days. levoFLOXaci 2023-0 2023- No 500mg QD Take [address] [facility] -24 05-29 tablet [facility] (LEVAQUIN) 00:00: 23:59 (500 mg Med ical 500 MG 00 :00 total) by Center tablet mouth in the morning for 5 days. levoFLOXaci 2023-0 2023- No 500mg QD Take [address] n - 05-29 tablet [facility] (LEVAQUIN) 00:00: 23:59 (500 [...] for 5 days. ibuprofen 2023-0 2023- No [id number] 600mg Take 1 [facility] 600 mg 5-08 08-07 tablet by ity of tablet 00:00: 04:59 mouth 3 [place] 00 :00 (three) Medical times Branch daily with meals as needed for Pain (scale 4-6) or Pain (scale 1-3) for up to 90 days. ibuprofen 2023-0 2023- No [id number] 600mg Take 1 [facility] 600 mg 5-08 08-07 tablet by ity of tablet 00:00: 04:59 mouth 3 [place] 00 :00 (three) Medical times Branch daily with meals as needed for Pain (scale 4-6) or Pain (scale 1-3) for up to 90 days. ibuprofen 2023-0 2023- No [id number] 600mg Take 1 [facility] 600 mg 5-08 08-07 tablet by ity of tablet 00:00: 04:59 mouth 3 [place] 00 :00 (three) Medical times Branch daily with meals as needed for Pain (scale 4-6) or Pain (scale 1-3) for up to 90 days. ibuprofen 2023-0 2023- No [id number] 600mg Take 1 [facility] 600 mg 5-08 08-07 tablet by ity of tablet 00:00: 04:59 mouth 3 [place] 00 :00 (three) Medical times Branch daily with meals as needed for Pain (scale 4-6) or Pain (scale 1-3) for up to 90 days. ibuprofen 2023-0 2023- No [id number] 600mg Take 1 [facility] 600 mg 5-08 08-07 tablet by ity of tablet 00:00: 04:59 mouth 3 [place] 00 :00 (three) Medical times Branch daily with meals as needed for Pain (scale 4-6) or Pain (scale 1-3) for up to 90 days. ibuprofen 2023-0 2023- No [id number] 600mg Take 1 [facility] 600 mg 5-08 08-07 tablet by ity of tablet 00:00: 04:59 mouth 3 [place] 00 :00 (three) Medical times Branch daily with meals as needed for Pain (scale 4-6) or Pain (scale 1-3) for up to 90 days. ibuprofen 2023-0 2023- No [id number] 600mg Take 1 [facility] 600 mg 5-08 08-07 tablet by ity of tablet 00:00: 04:59 mouth 3 [place] 00 :00 (three) Medical times Branch daily with meals as needed for Pain (scale 4-6) or Pain (scale 1-3) for up to 90 days. ibuprofen 2023-0 2023- No [id number] 600mg Take 1 [facility] 600 mg 5-08 08-07 tablet by ity of tablet 00:00: 04:59 mouth 3 [place] 00 :00 (three) Medical times Branch daily with meals as needed for Pain (scale 4-6) or Pain (scale 1-3) for up to 90 days. ibuprofen 2023-0 2023- No [id number] 600mg Take 1 [facility] 600 mg 5-08 08-07 tablet by ity of tablet 00:00: 04:59 mouth 3 [place] 00 :00 (three) Medical times Branch daily with meals as needed for Pain (scale 4-6) or Pain (scale 1-3) for up to 90 days. ibuprofen 2023-0 2023- No [id number] 600mg Take 1 [facility] 600 mg 5-08 08-07 tablet by ity of tablet 00:00: 04:59 mouth 3 [place] 00 :00 (three) Medical times Branch daily with meals as needed for Pain (scale 4-6) or Pain (scale 1-3) for up to 90 days. ibuprofen 2023-0 2023- No [id number] 600mg Take 1 [facility] 600 mg 5-08 08-07 tablet by ity of tablet 00:00: 04:59 mouth 3 [place] 00 :00 (three) Medical times Branch daily with meals as needed for Pain (scale 4-6) or Pain (scale 1-3) for up to 90 days. ibuprofen 2023-0 3- No [id number] 600mg Take 1 [facility] 600 mg 5-08 08-07 tablet by ity of tablet 00:00: 04:59 mouth 3 [place] 00 :00 (three) Medical times Branch daily with meals as needed for Pain (scale 4-6) or Pain (scale 1-3) for up to 90 days. ibuprofen 2023-0 3- No [id number] 600mg Take 1 [facility] 600 mg 5-08 08-07 tablet by ity of tablet 00:00: 04:59 mouth 3 [place] 00 :00 (three) Medical times Branch daily with meals as needed for Pain (scale 4-6) or Pain (scale 1-3) for up to 90 days. ibuprofen 202-0 3- No [id number] 600mg Take 1 [facility] 600 mg 5-07 07-27 tablet by ity of tablet 00:00: 00:00 mouth 3 [place] 00 :00 (three) Medical times Branch daily with meals as needed for Pain (scale 4-6) or Pain (scale 1-3) for up to 90 days. HYDROcodone 2022-0 2022- No [id number] 1{tbl} Take [...] days. Indication s: acute pain HYDROcodone 3-0 3- No 4647 1{tbl} Take 1 U nivers -acetaminop 5-08 05-16 tablet by it y of hen (WinBuyerCO) 00:00: 04:59 mouth [place] 5-325 mg 00 :00 every 6 Medical tablet (six) Branch hours as needed for Pain (scale 7-10) for up to 7 days. Indication s: acute pain HYDROcodone 2022-0 2022- No 4647 1{tbl} Take 1 U nivers -acetaminop 5-08 05-16 tablet by it y of hen (Valmarc) 00:00: 04:59 mouth [place] 5-325 mg [...] 1300, Until Discontinu ed, Routine, PACU lactated 3-0 3- No 1000mL at 75 Unive rs ringers [...] ed, Routine, Pain (scale 7-10), PACU ondansetron 2022-0 Yes 4mg 4 mg, Slow Univers (ZOFRAN [...] 00 :36 Starting Medic al injection on Wed Branch 03/27/23 at 1127, Until 03/27/23 at [...] Starting Branch on 03/27/23 at 1115, Until Sat03/27/23 at 1253, Routine, Intra-op lactated 2022- No IV Univers ringers IV 03-27 Infusion, ity of infusion 16:15: 17:53 CONTINUOUS [place] 00 :36 PRN, Medical Starting Branch on 03/27/23 at 1115, Until Sat03/27/23 at [...] scopolamine 1.5mg 1.5 mg, U nivers transdermal 03-27 Topical, ity of (TRANSDERM- 14:23: 17:52 Administer [place] SCOP) patch 26 :58 over 72 Medic al 1.5 mg Hours, Branch Q72H, First dose on Sat03/27/23 at 0930, Until Discontinu ed, Routine, DSU Pre-op HYDROcodone No 4647 1{tbl} Take 1 U nivers -acetaminop -26 05-04 tablet by it y of hen 5-325 00:00: 04:59 mouth [place] mg tablet 00 :00 every 6 Medical (six) Branch hours as needed for Pain (scale 4-6) or Pain (scale 7-10) for up to 7 days. Indication s: acute pain HYDROcodone No 4647 1{tbl} Take 1 U nivers -acetaminop -26 -04 tablet by it y of hen 5-325 [...] 05-02 tablet by it y of hen (Valmarc) 00:00: 04:59 mouth 2 [place] 5-325 mg 00 :00 (two) Medical tablet times Branch daily as needed for Pain (scale 7-10) for up to 7 days. Indication s: acute pain HYDROcodone 2022-0 2022- No 4647 1{tbl} Take 1 U nivers -acetaminop 4-24 05-02 tablet by it y of hen (WinBuyerCO) 00:00: 04:59 mouth 2 [place] 5-325 mg 00 :00 (two) Medical tablet times Branch daily as needed for Pain (scale 7-10) for up to 7 days. Indication s: acute pain HYDROcodone 2022-0 2022- No 4647 1{tbl} Take 1 U nivers -acetaminop 4-24 05-02 tablet by it y of hen (Valmarc) 00:00: 04:59 mouth 2 [place] 5-325 mg 00 :00 (two) Medical tablet times Branch daily as needed for Pain (scale 7-10) for up to 7 days. Indication s: acute pain HYDROcodone 2022-0 2022- No 4647 1{tbl} Take 1 U nivers -acetaminop 4-24 05-02 tablet by it y of hen (Valmarc) 00:00: 04:59 mouth 2 [place] 5-325 mg 00 :00 (two) Medical tablet times Branch daily as needed for Pain (scale 7-10) for up to 7 days. Indication s: acute pain HYDROcodone 2022-0 2022- No 4647 1{tbl} Take 1 U nivers -acetaminop 4-24 05-02 tablet by it y of hen (Valmarc) 00:00: 04:59 mouth 2 [place] 5-325 mg 00 :00 (two) Medical tablet times Branch daily as needed for Pain (scale 7-10) for up to 7 days. Indication s: acute pain HYDROcodone 3-0 2022- No 4647 1{tbl} Take 1 U nivers -acetaminop 4-24 05-02 tablet by it y of hen (Valmarc) 00:00: 04:59 mouth 2 [place] 5-325 mg 00 :00 (two) Medical tablet times Branch daily as needed for Pain (scale 7-10) for up to 7 days. Indication s: acute pain HYDROcodone 2022-0 2022- No 4647 1{tbl} Take 1 U nivers -acetaminop 4-24 05-02 tablet by it y of hen (Valmarc) 00:00: 04:59 mouth 2 [place] 5-325 mg 00 :00 (two) Medical tablet times Branch daily as needed for Pain (scale 7-10) for up to 7 days. Indication s: acute pain HYDROcodone 2022-0 2022- No 4647 1{tbl} Take 1 U nivers -acetaminop 4-24 05-02 tablet by it y of hen ([place]) 00:00: 04:59 mouth 2 [place] 5-325 mg 00 :00 (two) Medical tablet times Branch daily as needed for Pain (scale 7-10) for up to 7 days. Indication s: acute pain HYDROcodone 2022-0 2022- No 4647 1{tbl} Take 1 U nivers -acetaminop 4-24 05-02 tablet by it y of hen ([place]) 00:00: 04:59 mouth 2 [place] 5-325 mg 00 :00 (two) Medical tablet times Branch daily as needed for Pain (scale 7-10) for up to 7 days. Indication s: acute pain HYDROcodone 2022-2022- No 4647 1{tbl} Take 1 U nivers -acetaminop 4-24 05-02 tablet by it y of hen ([place]) 00:00: 04:59 mouth 2 [place] 5-325 mg 00 :00 (two) Medical tablet times Branch daily as needed for Pain (scale 7-10) for up to 7 days. Indication s: acute pain HYDROcodone 2022-0 2022- No 4647 1{tbl} Take 1 U nivers -acetaminop 4-24 05-02 tablet by it y of hen ([place]) 00:00: 04:59 mouth 2 [place] 5-325 mg 00 :00 (two) Medical tablet times Branch daily as needed for Pain (scale 7-10) for up to 7 days. Indication s: acute pain cyclobenzap Yes TAKE ONE Un gracy rine [...] Medical EVERY Branch EIGHT HOURS NEEDED. ibuprofen 3-0 Yes TAKE ONE Univ ers 600 mg [...] EVERY Branch EIGHT HOURS NEEDED. ibuprofen 2023-0 202- No TAKE ONE Uni vers 600 mg [...] 03/16/23 at 1015, MATTHEW tiZANidine 2022-0 Yes [id number] 4mg Take 1 [facility] 4 mg tablet 4-15 tablet by ity of 00:00: mouth [place] [address] every 6 Medical (six) Branch hours as needed for Pain (scale 4-6) for up to 20 doses. diclofenac 2022-0 Yes [id number] 50mg Take 1 [facility] 50 mg 4-15 tablet by ity of tablet 00:00: mouth in [place] 00 the Medical morning Branch and 1 tablet in the evening. tiZANidine 2022-0 Yes [id number] 4mg Take 1 [facility] 4 mg tablet 4-15 tablet by ity of 00:00: mouth [place] [address] every 6 Medical (six) Branch hours as needed for Pain (scale 4-6) for up to 20 doses. diclofenac 2022-0 Yes [id number] 50mg Take 1 [facility] 50 mg 4-15 tablet by ity of tablet 00:00: mouth in [place] 00 the Medical morning Branch and 1 tablet in the evening. tiZANidine 2023-0 Yes [id number] 4mg Take 1 [facility] 4 mg tablet 4-15 tablet by ity of 00:00: mouth [place] 00 every 6 Medical (six) Branch hours as needed for Pain (scale 4-6) for up to 20 doses. diclofenac 2023-0 Yes [id number] 50mg Take 1 [facility] 50 mg 4-15 tablet by ity of tablet 00:00: mouth in [place] 00 the Medical morning Branch and 1 tablet in the evening. tiZANidine 2023-0 Yes [id number] 4mg Take 1 [facility] 4 mg tablet 4-15 tablet by ity of 00:00: mouth [place] 00 every 6 Medical (six) Branch hours as needed for Pain (scale 4-6) for up to 20 doses. diclofenac 2023-0 Yes [id number] 50mg Take 1 [facility] 50 mg 4-15 tablet by ity of tablet 00:00: mouth in [place] 00 the Medical morning Branch and 1 tablet in the evening. tiZANidine 2023-0 Yes [id number] 4mg Take 1 [facility] 4 mg tablet 4-15 tablet by ity of 00:00: mouth [place] [address] every 6 Medical (six) Branch hours as needed for Pain (scale 4-6) for up to 20 doses. diclofenac 2023-0 Yes [id number] 50mg Take 1 [facility] 50 mg 4-15 tablet by ity of tablet 00:00: mouth in [place] 00 the Medical morning Branch and 1 tablet in the evening. tiZANidine 2023-0 Yes [id number] 4mg Take 1 [facility] 4 mg tablet 4-15 tablet by ity of 00:00: mouth [place] 00 every 6 Medical (six) Branch hours as needed for Pain (scale 4-6) for up to 20 doses. diclofenac 2023-0 Yes [id number] 50mg Take 1 [facility] 50 mg 4-15 tablet by ity of tablet 00:00: mouth in [place] 00 the Medical morning Branch and 1 tablet in the evening. tiZANidine 2023-0 Yes [id number] 4mg Take 1 [facility] 4 mg tablet 4-15 tablet by ity of 00:00: mouth [place] 00 every 6 Medical (six) Branch hours as needed for Pain (scale 4-6) for up to 20 doses. diclofenac 2023-0 Yes [id number] 50mg Take 1 [facility] 50 mg 4-15 tablet by ity of tablet 00:00: mouth in [place] 00 the Medical morning Branch and 1 tablet in the evening. tiZANidine 2023-0 Yes [id number] 4mg Take 1 [facility] 4 mg tablet 4-15 tablet by ity of 00:00: mouth [place] 00 every 6 Medical (six) Branch hours as needed for Pain (scale 4-6) for up to 20 doses. diclofenac 2023-0 Yes [id number] 50mg Take 1 [facility] 50 mg 4-15 tablet by ity of tablet 00:00: mouth in [place] 00 the Medical morning Branch and 1 tablet in the evening. tiZANidine 2023-0 Yes [id number] 4mg Take 1 [facility] 4 mg tablet 4-15 tablet by ity of 00:00: mouth [place] 00 every 6 Medical (six) Branch hours as needed for Pain (scale 4-6) for up to 20 doses. diclofenac 2023-0 Yes [id number] 50mg Take 1 [facility] 50 mg 4-15 tablet by ity of tablet 00:00: mouth in [place] 00 the Medical morning Branch and 1 tablet in the evening. tiZANidine 2023-0 Yes [id number] 4mg Take 1 [facility] 4 mg tablet 4-15 tablet by ity of 00:00: mouth [place] 00 every 6 Medical (six) Branch hours as needed for Pain (scale 4-6) for up to 20 doses. diclofenac 2023-0 Yes [id number] 50mg Take 1 [facility] 50 mg 4-15 tablet by ity of tablet 00:00: mouth in [place] 00 the Medical morning Branch and 1 tablet in the evening. tiZANidine 2023-0 Yes [id number] 4mg Take 1 [facility] 4 mg tablet 4-15 tablet by ity of 00:00: mouth [place] 00 every 6 Medical (six) Branch hours as needed for Pain (scale 4-6) for up to 20 doses. tiZANidine 2023-0 Yes [id number] 4mg Take 1 [facility] 4 mg tablet 4-15 tablet by ity of 00:00: mouth [place] 00 every 6 Medical (six) Branch hours as needed for Pain (scale 4-6) for up to 20 doses. tiZANidine 2023-0 Yes [id number] 4mg Take 1 [facility] 4 mg tablet 4-15 tablet by ity of 00:00: mouth [place] 00 every 6 Medical (six) Branch hours as needed for Pain (scale 4-6) for up to 20 doses. tiZANidine 2022-0 Yes [id number] 4mg Take 1 [facility] 4 mg tablet 4-15 tablet by ity of 00:00: mouth [place] 00 every 6 Medical (six) Branch hours as needed for Pain (scale 4-6) for up to 20 doses. tiZANidine 2022-0 Yes [id number] 4mg Take 1 [facility] 4 mg tablet 4-15 tablet by ity of 00:00: mouth [place] 00 every 6 Medical (six) Branch hours as needed for Pain (scale 4-6) for up to 20 doses. tiZANidine 2022-0 Yes [id number] 4mg Take 1 [facility] 4 mg tablet 4-15 tablet by ity of 00:00: mouth [place] 00 every 6 Medical (six) Branch hours as needed for Pain (scale 4-6) for up to 20 doses. tiZANidine 2022-0 Yes [id number] 4mg Take 1 [facility] 4 mg tablet 4-15 tablet by ity of 00:00: mouth [place] 00 every 6 Medical (six) Branch hours as needed for Pain (scale 4-6) for up to 20 doses. tiZANidine 2022-0 Yes [id number] 4mg Take 1 [facility] 4 mg tablet 4-15 tablet by ity of 00:00: mouth [place] 00 every 6 Medical (six) Branch hours as needed for Pain (scale 4-6) for up to 20 doses. tiZANidine 2022-0 Yes [id number] 4mg Take 1 [facility] 4 mg tablet 4-15 tablet by ity of 00:00: mouth [place] 00 every 6 Medical (six) Branch hours as needed for Pain (scale 4-6) for up to 20 doses. tiZANidine 2022-0 Yes [id number] 4mg Take 1 [facility] 4 mg tablet 4-15 tablet by ity of 00:00: mouth [place] 00 every 6 Medical (six) Branch hours as needed for Pain (scale 4-6) for up to 20 doses. tiZANidine 2022-0 Yes [id number] 4mg Take 1 [facility] 4 mg tablet 4-15 tablet by ity of 00:00: mouth [place] 00 every 6 Medical (six) Branch hours as needed for Pain (scale 4-6) for up to 20 doses. tiZANidine 3-0 Yes [id number] 4mg Take 1 [facility] 4 mg tablet 4-15 tablet by ity of 00:00: mouth [place] 00 every 6 Medical (six) Branch hours as needed for Pain (scale 4-6) for up to 20 doses. tiZANidine 3-0 Yes [id number] 4mg Take 1 [facility] 4 mg tablet 4-15 tablet by ity of 00:00: mouth [place] 00 every 6 Medical (six) Branch hours as needed for Pain (scale 4-6) for up to 20 doses. tiZANidine 3-0 Yes [id number] 4mg Take 1 [facility] 4 mg tablet 4-15 tablet by ity of 00:00: mouth [place] 00 every 6 Medical (six) Branch hours as needed for Pain (scale 4-6) for up to 20 doses. tiZANidine 2022-0 Yes [id number] 4mg Take 1 [facility] 4 mg tablet 4-15 tablet by ity of 00:00: mouth [place] 00 every 6 Medical (six) Branch hours as needed for Pain (scale 4-6) for up to 20 doses. tiZANidine 3-0 Yes [id number] 4mg Take 1 [facility] 4 mg tablet 4-15 tablet by ity of 00:00: mouth [place] 00 every 6 Medical (six) Branch hours as needed for Pain (scale 4-6) for up to 20 doses. tiZANidine 3-0 Yes [id number] 4mg Take 1 [facility] 4 mg tablet 4-15 tablet by ity of 00:00: mouth [place] 00 every 6 Medical (six) Branch hours as needed for Pain (scale 4-6) for up to 20 doses. tiZANidine 3-0 Yes [id number] 4mg Take 1 [facility] 4 mg tablet 4-15 tablet by ity of 00:00: mouth [place] 00 every 6 Medical (six) Branch hours as needed for Pain (scale 4-6) for up to 20 doses. tiZANidine 3-0 Yes [id number] 4mg Take 1 [facility] 4 mg tablet 4-15 tablet by ity of 00:00: mouth [place] 00 every 6 Medical (six) Branch hours as needed for Pain (scale 4-6) for up to 20 doses. tiZANidine 3-0 Yes [id number] 4mg Take 1 [facility] 4 mg tablet 4-15 tablet by ity of 00:00: mouth [place] every 6 Medical (six) Branch hours as needed for Pain (scale 4-6) for up to 20 doses. tiZANidine 3-0 Yes [id number] 4mg Take 1 [facility] 4 mg tablet 4-15 tablet by ity of 00:00: mouth [place] every 6 Medical (six) Branch hours as needed for Pain (scale 4-6) for up to 20 doses. tiZANidine 2022-0 Yes [id number] 4mg Take 1 [facility] 4 mg tablet 4-15 tablet by ity of 00:00: mouth [place] [address] every 6 Medical (six) Branch hours as needed for Pain (scale 4-6) for up to 20 doses. diclofenac 2022-0 2023- No [id number] 50mg Take 1 [facility] 50 mg 4-15 04-25 tablet by ity of tablet 00:00: 00:00 mouth in [place] 00 :00 the Medical morning Branch and 1 tablet in the evening. diclofenac 2022-0 3- No [id number] 50mg Take 1 [facility] 50 mg 4-15 04-25 tablet by ity of tablet 00:00: 00:00 mouth in [place] 00 :00 the Medical morning Branch and 1 tablet in the evening. diclofenac 2022-0 3- No [id number] 50mg Take 1 [facility] 50 mg 4-15 04-25 tablet by ity of tablet 00:00: 00:00 mouth in [place] 00 :00 the Medical morning Branch and 1 tablet in the evening. gabapentin 3-0 Yes TAKE ONE Uni vers 300 mg 4-05 (1) ity of capsule 00:00: [place] 00 BY [facility] EIGHT HOURS. gabapentin 2023-0 Yes TAKE ONE Uni vers 300 mg 4-05 (1) ity of capsule 00:00: [place](S[place] 00 BY [facility] EIGHT HOURS. gabapentin 2023-0 Yes TAKE ONE Uni vers 300 mg 4-05 (1) ity of capsule 00:00: [place](S[place] 00 BY [facility] EIGHT HOURS. gabapentin 2023-0 Yes TAKE ONE [...] BY MOUTH Medical EVERY Branch EIGHT HOURS. diclofenac 2023-0 Yes 75mg Take 1 Unive rs 75 mg EC 4-02 tablet by ity of tablet 00:00: mouth in [place] 00 the Medical morning Branch and 1 tablet in the evening. diclofenac 2023-0 2023- No 75mg Take 1 Univ ers 75 mg EC 4- 04-26 tablet by ity o f tablet 00:00: 00:00 mouth in [place] 00 :00 the Medical morning Branch and 1 tablet in the evening. diclofenac 2023-0 2023- No 75mg Take 1 Univ ers 75 mg EC 4- 04-26 tablet by ity o f tablet 00:00: 00:00 mouth in [place] 00 :00 the Medical morning Branch and 1 tablet in the evening. diclofenac 2023-0 2023- No 75mg Take 1 Univ ers 75 mg EC 4-02 04-26 tablet by ity o f tablet 00:00: 00:00 mouth in [place] 00 :00 the Medical morning Branch and 1 tablet in the evening. clonazePAM 2023-0 Yes .5mg Take 1 Unive rs 0.5 mg 3-29 tablet by ity of tablet 00:00: mouth in [place] 00 the Medical morning Branch and 1 tablet in the evening. clonazePAM 2023-0 Yes .5mg Take 1 Unive rs 0.5 mg 3-29 tablet by ity of tablet 00:00: mouth in [place] 00 the Medical morning Branch and 1 tablet in the evening. clonazePAM 2023-0 Yes .5mg Take 1 Unive rs 0.5 mg 3-29 tablet by ity of tablet 00:00: mouth in [place] 00 the Medical morning Branch and 1 tablet in the evening. clonazePAM 2023-0 Yes .5mg Take 1 Unive rs 0.5 mg 3-29 tablet by ity of tablet 00:00: mouth in [place] 00 the Medical morning Branch and 1 tablet in the evening. clonazePAM 2023-0 Yes .5mg Take 1 Unive rs 0.5 mg 3-29 tablet by ity of tablet 00:00: mouth in [place] [address] the Medical morning Branch and 1 tablet in the evening. clonazePAM 2023-0 Yes .5mg Take 1 Unive rs 0.5 mg 3-29 tablet by ity of tablet 00:00: mouth in [place] [address] the Medical morning Branch and 1 tablet in the evening. clonazePAM 2023-0 Yes .5mg Take 1 Unive rs 0.5 mg 3-29 tablet by ity of tablet 00:00: mouth in [place] [address] the Medical morning Branch and 1 tablet in the evening. clonazePAM 2023-0 Yes .5mg Take 1 Unive rs 0.5 mg 3-29 tablet by ity of tablet 00:00: mouth in [place] [address] the Medical morning Branch and 1 tablet in the evening. clonazePAM 2023-0 Yes .5mg Take 1 Unive rs 0.5 mg 3-29 tablet by ity of tablet 00:00: mouth in [place] [address] the Medical morning Branch and 1 tablet in the evening. clonazePAM 2023-0 Yes .5mg Take 1 Unive rs 0.5 mg 3-29 tablet by ity of tablet 00:00: mouth in [place] [address] the Medical morning Branch and 1 tablet in the evening. clonazePAM 2023-0 Yes .5mg Take 1 Unive rs 0.5 mg 3-29 tablet by ity of tablet 00:00: mouth in [place] [address] the Medical morning Branch and 1 tablet in the evening. clonazePAM 2023-0 Yes .5mg Take 1 Unive rs 0.5 mg 3-29 tablet by ity of tablet 00:00: mouth in [place] [address] the Medical morning Branch and 1 tablet in the evening. clonazePAM 2023-0 Yes .5mg Take 1 Unive rs 0.5 mg 3-29 tablet by ity of tablet 00:00: mouth in [place] [address] the Medical morning Branch and 1 tablet in the evening. clonazePAM 2023-0 Yes .5mg Take 1 Unive rs 0.5 mg 3-29 tablet by ity of tablet 00:00: mouth in [place] [address] the Medical morning Branch and 1 tablet in the evening. clonazePAM 2023-0 Yes .5mg Take 1 Unive rs 0.5 mg 3-29 tablet by ity of tablet 00:00: mouth in [place] [address] the Medical morning Branch and 1 tablet in the evening. clonazePAM 2023-0 Yes .5mg Take 1 Unive rs 0.5 mg 3-29 tablet by ity of tablet 00:00: mouth in [place] [address] the Medical morning [facility] and 1 tablet in the evening. clonazePAM 2023-0 Yes .5mg Take 1 Unive rs 0.5 mg 3-29 tablet by ity of tablet 00:00: mouth in [place] [address] the Medical morning [facility] and 1 tablet in the evening. clonazePAM 2023-0 Yes .5mg Take 1 Unive rs 0.5 mg 3-29 tablet by ity of tablet 00:00: mouth in [place] [address] the Medical morning [facility] and 1 tablet in the evening. clonazePAM 2023-0 Yes .5mg Take 1 Unive rs 0.5 mg 3-29 tablet by ity of tablet 00:00: mouth in [place] [address] the Medical morning [facility] and 1 tablet in the evening. clonazePAM 2023-0 Yes .5mg Take 1 Unive rs 0.5 mg 3-29 tablet by ity of tablet 00:00: mouth in [place] [address] the Medical morning [facility] and 1 tablet in the evening. clonazePAM 2023-0 Yes .5mg Take 1 Unive rs 0.5 mg 3-29 tablet by ity of tablet 00:00: mouth in [place] [address] the [facility] morning [facility] and 1 tablet in the evening. proMETHazin 2023-0 Yes TAKE ONE Un gracy e 12.5 mg 3-16 (1) ity of tablet 00:00: TABLET(S) [place] [address] BY MOUTH [facility] EIGHT HOURS NEEDED. diphenoxyla 2023-0 Yes TAKE ONE Un gracy te-atropine 3-16 (1) ity of 2.5-0.025 00:00: TABLET(S) [place] mg tablet 00 BY MOUTH Medica l THREE Branch TIMES A DAY NEEDED. busPIRone 2023-0 Yes 10mg Take 1 Univer s 10 mg 3-16 tablet by ity of tablet 00:00: mouth in [place] 00 the Medical morning Branch and 1 [...] by ity of tablet 00:00: mouth in [place] the Medical morning Branch and 1 tablet in the evening. proMETHazin 2023-0 Yes TAKE ONE Un gracy e 12.5 mg 3-16 (1) ity of tablet 00:00: TABLET(S) [place] 00 BY MOUTH Medical EVERY Branch EIGHT HOURS NEEDED. diphenoxyla 2023-0 Yes TAKE ONE Un gracy te-atropine 3-16 (1) ity of 2.5-0.025 00:00: TABLET(S) [place] mg tablet 00 BY MOUTH Medica l THREE Branch TIMES A DAY NEEDED. busPIRone 2023-0 Yes 10mg Take 1 Univer s 10 mg 3-16 tablet by ity of tablet 00:00: mouth in [place] 00 the Medical morning Branch and 1 [...] by ity of tablet 00:00: mouth in [place] 00 the Medical morning Branch and 1 [...] by ity of tablet 00:00: mouth in [place] the Medical morning Branch and 1 tablet [...] by ity of tablet 00:00: mouth in [place] the Medical morning Branch and 1 tablet [...] by ity of tablet 00:00: mouth in [place] 00 the Medical morning Branch and 1 [...] by ity of tablet 00:00: mouth in [place] 00 the Medical morning Branch and 1 tablet in the evening. proMETHazin 2023-0 Yes TAKE ONE Un gracy e 12.5 mg 3-16 (1) ity of tablet 00:00: TABLET(S) [place] 00 BY MOUTH Medical EVERY Branch EIGHT HOURS NEEDED. diphenoxyla 2023-0 Yes TAKE ONE Un gracy te-atropine 3-16 (1) ity of 2.5-0.025 00:00: TABLET(S) [place] mg tablet 00 BY MOUTH Medica l THREE Branch TIMES A DAY NEEDED. busPIRone 2023-0 Yes 10mg Take 1 Univer s 10 mg 3-16 tablet by ity of tablet 00:00: mouth in [place] the Medical morning Branch and 1 tablet [...] by ity of tablet 00:00: mouth in [place] 00 the Medical morning Branch and 1 [...] by ity of tablet 00:00: mouth in [place] 00 the Medical morning Branch and 1 [...] by ity of tablet 00:00: mouth in [place] the Medical morning Branch and 1 tablet [...] by ity of tablet 00:00: mouth in [place] the Medical morning Branch and 1 tablet [...] by ity of tablet 00:00: mouth in [place] 00 the Medical morning Branch and 1 [...] by ity of tablet 00:00: mouth in [place] the Medical morning Branch and 1 tablet [...] by ity of tablet 00:00: mouth in [place] the Medical morning Branch and 1 tablet [...] by ity of tablet 00:00: mouth in [place] 00 the Medical morning Branch and 1 [...] by ity of tablet 00:00: mouth in [place] 00 the Medical morning Branch and 1 [...] by ity of tablet 00:00: mouth in [place] the Medical morning Branch and 1 tablet [...] by ity of tablet 00:00: mouth in [place] 00 the Medical morning Branch and 1 [...] THREE Branch TIMES A DAY NEEDED. busPIRone Yes 10mg Take 1 Univer s 10 mg 3-16 tablet by ity of tablet 00:00: mouth in [place] 00 the Medical morning Branch and 1 [...] mouth Center daily. busPIRone 2020-12 Yes 5mg [id number] Take [address] [facility] ([facility]) 5 2-18 [id number] by mouth 3 [facility] tablet 15:41: 3D (three) Medic al 03 times Center daily. busPIRone 2020-12 Yes 5mg [id number] Take [address] [facility] ([facility]) 5 2-18 [id number] by mouth 3 [facility] tablet 15:41: 3D (three) Medic al 03 times Center daily. busPIRone 2020-12 Yes 5mg [id number] Take [address] [facility] ([facility]) 5 2-18 [id number] by mouth 3 [facility] tablet 15:41: 3D (three) Medic al 03 times Center daily. busPIRone 2020-12 Yes 5mg [id number] Take [address] [facility] ([facility]) 5 2-18 [id number] by mouth 3 [facility] tablet 15:41: [...] Pain. Max Daily Amount: 4 tablets HYDROcodone 2020-12 No 1{tbl} Take 1 C [...] 1{tbl} Take [address] -acetaminop -04-24 tablet by Marcella castillo (NORCO 00:00: 00:00 mouth Medic al 5-325) 00 :00 every 6 Center 5-325 mg (six) per tablet hours as needed for Pain. Max Daily Amount: 4 tablets ibuprofen 2020- No 600mg 600 mg, Uni vers (IBU) 12-26 Oral, ity of tablet 600 04:45: 03:53 ONCE, 1 [place] mg 00 :00 dose, [facility] 12/25/20 at Branch 2245, MATTHEW ibuprofen 2020- No 600mg 600 mg, Uni vers (IBU) 12-26 Oral, ity of tablet 600 00:30: 12:29 ONCE, 1 [place] mg 00 :00 dose, [facility] 12/25/20 at Branch 1830, MATTHEW metroNIDAZO 2020- No [id number] 2000mg Take 4 Univers LE 500 mg 12-26 tablets by ity of tablet 00:00: 05:59 mouth 2 [place] 00 :00 (two) Medical times [facility] daily for 1 dose. NaCl 0.9% No 1000mL at 999 Uni vers (NS) bolus 12-25 mL/hr, ity of infusion 17:30: 18:07 1,000 mL, [place] 1,000 mL 00 :00 IV Medical Infusion, [facility] ONCE, 1 dose, [place] 12/25/20 at 1130, STAT proMETHazin No 12.5mg 12.5 mg, Univers e 12-25 IV ity of (PHENERGAN) 17:30: 16:45 [place], [place] 12.5 mg in 00 :00 ONCE, 1 Medica l NaCl 0.9% dose, [facility] h (NS) 50 mL 12/25/20 at piggyback 1130, 50 mL cefTRIAXone 2020- No 250mg 250 mg, U nivers (ROCEPHIN) 12-25 Intramuscu it y of injection 16:30: 16:45 [place], ONCE [place] 250 mg 00 :00 NOW, 1 Medical dose, [facility] 12/25/20 at 1030, MATTHEW
Fa culty member approving Restricted medication : TELMAMYNOR
Reaso n for Anti-Infec tive: Documented Infection< br>Docu mented Infection Site: Abdominal< br>Duratio n of Therapy: 7 days azithromyci 0 202- No 1000mg 1,000 mg, Univers n 12-25-24 Oral, ONCE ity of (ZITHROMAX) 16:30: 16:44 NOW, 1 [place] tablet 00 :00 dose, [place] [facility] 1,000 mg 12/25/20 at [facility] h 1030, MATTHEW
Re ason for Anti-Infec [...] dose, Fri Medica l mL) 07/15/20 at [facility] injection 1715, 120 mL Routine dicyclomine 0 Yes 10mg 10 mg, Univ ers (BENTYL) 07-15 Oral, QID, ity o f capsule 10 21:00: First dose [place] mg 00 on Fri Medical 07/15/20 at [facility] 1600, Until Discontinu ed, Routine pantoprazol 2019-0 2020- No 80mg 80 mg, IV Univers e 07-15 Piggyback, ity of (PROTONIX) 19:45: 20:00 ONCE, 1 [place] 80 mg in 00 :00 dose, Fri Medica l NaCl 0.9% 07/15/20 at [facility] ch (NS) 100 mL 1445, 100 IV mL Piggyback sucralfate 2020-0 Yes [id number] 1g Take 1 Un gracy 1 gram 8-14 tablet by ity of tablet 00:00: mouth [place] 00 before Medical meals and Branch at bedtime. dicyclomine 2020-0 Yes [id number] 10mg Take 1 U nivers (BENTYL) 10 8-14 capsule by it y of mg capsule 00:00: mouth [place] 00 every 8 Medical (eight) Branch hours as needed for Abdominal pain. ondansetron 2020-0 Yes [id number] 4mg Take 1 U nivers 4 mg 8-14 tablet by ity of disintegrat 00:00: mouth [place] ing tablet 00 every 8 Medica l (eight) Branch hours as needed for Nausea and Vomiting (N/V). sucralfate 2020-0 Yes [id number] 1g Take 1 Un gracy 1 gram 8-14 tablet by ity of tablet 00:00: mouth [place] 00 before Medical meals and Branch at bedtime. dicyclomine 2020-0 Yes [id number] 10mg Take 1 U nivers (BENTYL) 10 8-14 capsule by it y of mg capsule 00:00: mouth [place] 00 every 8 Medical (eight) Branch hours as needed for Abdominal pain. ondansetron 2020-0 Yes [id number] 4mg Take 1 U nivers 4 mg 8-14 tablet by ity of disintegrat 00:00: mouth [place] ing tablet 00 every 8 Medica l (eight) Branch hours as needed for Nausea and Vomiting (N/V). sucralfate 2020-0 Yes [id number] 1g Take 1 Un gracy 1 gram 8-14 tablet by ity of tablet 00:00: mouth [place] 00 before Medical meals and Branch at bedtime. dicyclomine 2020-0 Yes [id number] 10mg Take 1 U nivers (BENTYL) 10 8-14 capsule by it y of mg capsule 00:00: mouth [place] 00 every 8 Medical (eight) Branch hours as needed for Abdominal pain. ondansetron 2020-0 Yes [id number] 4mg Take 1 U nivers 4 mg 8-14 tablet by ity of disintegrat 00:00: mouth [place] ing tablet 00 every 8 Medica l (eight) Branch hours as needed for Nausea and Vomiting (N/V). sucralfate 2020-0 Yes [id number] 1g Take 1 Un gracy 1 gram 8-14 tablet by ity of tablet 00:00: mouth [place] 00 before Medical meals and Branch at bedtime. dicyclomine 2020-0 Yes [id number] 10mg Take 1 U nivers (BENTYL) 10 8-14 capsule by it y of mg capsule 00:00: mouth [place] 00 every 8 Medical (eight) Branch hours as needed for Abdominal pain. ondansetron 2020-0 Yes [id number] 4mg Take 1 U nivers 4 mg 8-14 tablet by ity of disintegrat 00:00: mouth [place] ing tablet 00 every 8 Medica l (eight) Branch hours as needed for Nausea and Vomiting (N/V). sucralfate 2020-0 Yes [id number] 1g Take 1 Un gracy 1 gram 8-14 tablet by ity of tablet 00:00: mouth [place] 00 before Medical meals and Branch at bedtime. dicyclomine 2020-0 Yes [id number] 10mg Take 1 U nivers (BENTYL) 10 8-14 capsule by it y of mg capsule 00:00: mouth [place] 00 every 8 Medical (eight) Branch hours as needed for Abdominal pain. ondansetron 2020-0 Yes [id number] 4mg Take 1 U nivers 4 mg 8-14 tablet by ity of disintegrat 00:00: mouth [place] ing tablet 00 every 8 Medica l (eight) Branch hours as needed for Nausea and Vomiting (N/V). sucralfate 2020-0 Yes [id number] 1g Take 1 Un gracy 1 gram 8-14 tablet by ity of tablet 00:00: mouth [place] 00 before Medical meals and Branch at bedtime. dicyclomine 2020-0 Yes [id number] 10mg Take 1 U nivers (BENTYL) 10 8-14 capsule by it y of mg capsule 00:00: mouth [place] 00 every 8 Medical (eight) Branch hours as needed for Abdominal pain. ondansetron 2020-0 Yes [id number] 4mg Take 1 U nivers 4 mg 8-14 tablet by ity of disintegrat 00:00: mouth [place] ing tablet 00 every 8 Medica l (eight) Branch hours as needed for Nausea and Vomiting (N/V). sucralfate 2020-0 Yes [id number] 1g Take 1 [facility] 1 gram 8-14 tablet by ity of tablet 00:00: mouth [place] 00 before Medical meals and Branch at bedtime. dicyclomine 2020-0 Yes [id number] 10mg Take 1 U nivers (BENTYL) 10 8-14 capsule by it y of mg capsule 00:00: mouth [place] 00 every 8 Medical (eight) Branch hours as needed for Abdominal pain. ondansetron 2020-0 Yes [id number] 4mg Take 1 U nivers 4 mg 8-14 tablet by ity of disintegrat 00:00: mouth [place] ing tablet 00 every 8 Medica l (eight) Branch hours as needed for Nausea and Vomiting (N/V). sucralfate 2020-0 Yes [id number] 1g Take 1 [facility] 1 gram 8-14 tablet by ity of tablet 00:00: mouth [place] 00 before Medical meals and Branch at bedtime. dicyclomine 2020-0 Yes [id number] 10mg Take 1 U nivers (BENTYL) 10 8-14 capsule by it y of mg capsule 00:00: mouth [place] 00 every 8 Medical (eight) Branch hours as needed for Abdominal pain. ondansetron 2020-0 Yes [id number] 4mg Take 1 U nivers 4 mg 8-14 tablet by ity of disintegrat 00:00: mouth [place] ing tablet 00 every 8 Medica l (eight) Branch hours as needed for Nausea and Vomiting (N/V). sucralfate 2020-0 Yes [id number] 1g Take 1 Un [facility] 1 gram 8-14 tablet by ity of tablet 00:00: mouth [place] 00 before Medical meals and Branch at bedtime. dicyclomine 2020-0 Yes [id number] 10mg Take 1 U nivers (BENTYL) 10 8-14 capsule by it y of mg capsule 00:00: mouth [place] 00 every 8 Medical (eight) Branch hours as needed for Abdominal pain. ondansetron 2020-0 Yes [id number] 4mg Take 1 [facility]ivers 4 mg 8-14 tablet by ity of disintegrat 00:00: mouth [place] ing tablet 00 every 8 Medica l (eight) Branch hours as needed for Nausea and Vomiting (N/V). sucralfate 2020-0 Yes [id number] 1g Take 1 Un gr[facility] 1 gram 8-14 tablet by ity of tablet 00:00: mouth [place] 00 before Medical meals and Branch at bedtime. dicyclomine 2020-0 Yes [id number] 10mg Take 1 U nivers (BENTYL) 10 8-14 capsule by it y of mg capsule 00:00: mouth [place] 00 every 8 Medical (eight) Branch hours as needed for Abdominal pain. ondansetron 2020-0 Yes [id number] 4mg Take 1 U [facility]ivers 4 mg 8-14 tablet by ity of disintegrat 00:00: mouth [place] ing tablet 00 every 8 Medica l (eight) Branch hours as needed for Nausea and Vomiting (N/V). sucralfate 2020-0 Yes [id number] 1g Take 1 [facility] 1 gram 8-14 tablet by ity of tablet 00:00: mouth [place] 00 before Medical meals and Branch at bedtime. dicyclomine 2020-0 Yes [id number] 10mg Take 1 U nivers (BENTYL) 10 8-14 capsule by it y of mg capsule 00:00: mouth [place] 00 every 8 Medical (eight) Branch hours as needed for Abdominal pain. ondansetron 2020-0 Yes [id number] 4mg Take 1 U [facility]ivers 4 mg 8-14 tablet by ity of disintegrat 00:00: mouth [place] ing tablet 00 every 8 Medica l (eight) Branch hours as needed for Nausea and Vomiting (N/V). sucralfate 2020-0 Yes [id number] 1g Take 1 Un [facility] 1 gram 8-14 tablet by ity of tablet 00:00: mouth [place] 00 before Medical meals and Branch at bedtime. dicyclomine 2020-0 Yes [id number] 10mg Take 1 [facility] nivers (BENTYL) 10 8-14 capsule by it y of mg capsule 00:00: mouth [place] 00 every 8 Medical (eight) Branch hours as needed for Abdominal pain. ondansetron 2020-0 Yes [id number] 4mg Take 1 [facility]ivers 4 mg 8-14 tablet by ity of disintegrat 00:00: mouth [place] ing tablet 00 every 8 Medica l (eight) Branch hours as needed for Nausea and Vomiting (N/V). sucralfate 2020-0 Yes [id number] 1g Take 1 Un [facility] 1 gram 8-14 tablet by ity of tablet 00:00: mouth [place] 00 before Medical meals and Branch at bedtime. dicyclomine 2020-0 Yes [id number] 10mg Take 1 [facility] nivers (BENTYL) 10 8-14 capsule by it y of mg capsule 00:00: mouth [place] 00 every 8 Medical (eight) Branch hours as needed for Abdominal pain. ondansetron 2020-0 Yes [id number] 4mg Take 1 [facility]ivers 4 mg 8-14 tablet by ity of disintegrat 00:00: mouth [place] ing tablet 00 every 8 Medica l (eight) Branch hours as needed for Nausea and Vomiting (N/V). sucralfate 2020-0 Yes [id number] 1g Take 1 [facility] 1 gram 8-14 tablet by ity of tablet 00:00: mouth [place] 00 before Medical meals and Branch at bedtime. dicyclomine 2020-0 Yes [id number] 10mg Take 1 [facility] nivers (BENTYL) 10 8-14 capsule by it y of mg capsule 00:00: mouth [place] 00 every 8 Medical (eight) Branch hours as needed for Abdominal pain. ondansetron 2020-0 Yes [id number] 4mg Take 1 [facility]ivers 4 mg 8-14 tablet by ity of disintegrat 00:00: mouth [place] ing tablet 00 every 8 Medica l (eight) Branch hours as needed for Nausea and Vomiting (N/V). sucralfate 2020-0 Yes [id number] 1g Take 1 [facility] 1 gram 8-14 tablet by ity of tablet 00:00: mouth [place] 00 before Medical meals and Branch at bedtime. dicyclomine 2020-0 Yes [id number] 10mg Take 1 [facility] nivers (BENTYL) 10 8-14 capsule by it y of mg capsule 00:00: mouth [place] 00 every 8 Medical (eight) Branch hours as needed for Abdominal pain. ondansetron 2020-0 Yes [id number] 4mg Take 1 [facility]ivers 4 mg 8-14 tablet by ity of disintegrat 00:00: mouth [place] ing tablet 00 every 8 Medica l (eight) Branch hours as needed for Nausea and Vomiting (N/V). sucralfate 2020-0 Yes [id number] 1g Take 1 [facility] 1 gram 8-14 tablet by ity of tablet 00:00: mouth [place] 00 before Medical meals and Branch at bedtime. dicyclomine 2020-0 Yes [id number] 10mg Take 1 U nivers (BENTYL) 10 8-14 capsule by it y of mg capsule 00:00: mouth [place] 00 every 8 Medical (eight) Branch hours as needed for Abdominal pain. ondansetron 2020-0 Yes [id number] 4mg Take 1 [facility]ivers 4 mg 8-14 tablet by ity of disintegrat 00:00: mouth [place] ing tablet 00 every 8 Medica l (eight) Branch hours as needed for Nausea and Vomiting (N/V). sucralfate 2020-0 Yes [id number] 1g Take 1 [facility] 1 gram 8-14 tablet by ity of tablet 00:00: mouth [place] 00 before Medical meals and Branch at bedtime. dicyclomine 2020-0 Yes [id number] 10mg Take 1 U nivers (BENTYL) 10 8-14 capsule by it y of mg capsule 00:00: mouth [place] 00 every 8 Medical (eight) Branch hours as needed for Abdominal pain. ondansetron 2020-0 Yes [id number] 4mg Take 1 [facility] 4 mg 8-14 tablet by ity of disintegrat 00:00: mouth [place] ing tablet 00 every 8 Medica l (eight) Branch hours as needed for Nausea and Vomiting (N/V). sucralfate 2020-0 Yes [id number] 1g Take 1 [facility] 1 gram 8-14 tablet by ity of tablet 00:00: mouth [place] 00 before Medical meals and Branch at bedtime. dicyclomine 2020-0 Yes [id number] 10mg Take 1 [facility] nivers (BENTYL) 10 8-14 capsule by it y of mg capsule 00:00: mouth [place] 00 every 8 Medical (eight) Branch hours as needed for Abdominal pain. ondansetron 2020-0 Yes [id number] 4mg Take 1 [facility]ivers 4 mg 8-14 tablet by ity of disintegrat 00:00: mouth [place] ing tablet 00 every 8 Medica l (eight) Branch hours as needed for Nausea and Vomiting (N/V). sucralfate 2020-0 Yes [id number] 1g Take 1 [facility] 1 gram 8-14 tablet by ity of tablet 00:00: mouth [place] 00 before Medical meals and Branch at bedtime. dicyclomine 2020-0 Yes [id number] 10mg Take 1 [facility] nivers (BENTYL) 10 8-14 capsule by it y of mg capsule 00:00: mouth [place] 00 every 8 Medical (eight) Branch hours as needed for Abdominal pain. ondansetron 2020-0 Yes [id number] 4mg Take 1 [facility]ivers 4 mg 8-14 tablet by ity of disintegrat 00:00: mouth [place] ing tablet 00 every 8 Medica l (eight) Branch hours as needed for Nausea and Vomiting (N/V). sucralfate 2020-0 Yes [id number] 1g Take 1 [facility] 1 gram 8-14 tablet by ity of tablet 00:00: mouth [place] 00 before Medical meals and Branch at bedtime. dicyclomine 2020-0 Yes [id number] 10mg Take 1 [facility] nivers (BENTYL) 10 8-14 capsule by it y of mg capsule 00:00: mouth [place] 00 every 8 Medical (eight) Branch hours as needed for Abdominal pain. ondansetron 2020-0 Yes [id number] 4mg Take 1 [facility] 4 mg 8-14 tablet by ity of disintegrat 00:00: mouth [place] ing tablet 00 every 8 Medica l (eight) Branch hours as needed for Nausea and Vomiting (N/V). sucralfate 2020-0 Yes [id number] 1g Take 1 [facility] 1 gram 8-14 tablet by ity of tablet 00:00: mouth [place] 00 before Medical meals and Branch at bedtime. dicyclomine 2020-0 Yes [id number] 10mg Take 1 [facility] nivers (BENTYL) 10 8-14 capsule by it y of mg capsule 00:00: mouth [place] 00 every 8 Medical (eight) Branch hours as needed for Abdominal pain. ondansetron 2020-0 Yes [id number] 4mg Take 1 [facility] 4 mg 8-14 tablet by ity of disintegrat 00:00: mouth [place] ing tablet 00 every 8 Medica l (eight) Branch hours as needed for Nausea and Vomiting (N/V). sucralfate 2020-0 Yes [id number] 1g Take 1 [facility] 1 gram 8-14 tablet by ity of tablet 00:00: mouth [place] 00 before Medical meals and Branch at bedtime. dicyclomine 2020-0 Yes [id number] 10mg Take 1 [facility] nivers (BENTYL) 10 8-14 capsule by it y of mg capsule 00:00: mouth [place] 00 every 8 Medical (eight) Branch hours as needed for Abdominal pain. ondansetron 2020-0 Yes [id number] 4mg Take 1 [facility]ivers 4 mg 8-14 tablet by ity of disintegrat 00:00: mouth [place] ing tablet 00 every 8 Medica l (eight) Branch hours as needed for Nausea and Vomiting (N/V). dicyclomine 2020-0 Yes [id number] 10mg Take 1 [facility] nivers (BENTYL) 10 8-14 capsule by it y of mg capsule 00:00: mouth [place] 00 every 8 Medical (eight) Branch hours as needed for Abdominal pain. dicyclomine 2020-0 Yes [id number] 10mg Take 1 [facility] nivers (BENTYL) 10 8-14 capsule by it y of mg capsule 00:00: mouth [place] 00 every 8 Medical (eight) Branch hours as needed for Abdominal pain. dicyclomine 2020-0 Yes [id number] 10mg Take 1 [facility] nivers (BENTYL) 10 8-14 capsule by it y of mg capsule 00:00: mouth [place] 00 every 8 Medical (eight) Branch hours as needed for Abdominal pain. dicyclomine 2020-0 Yes [id number] 10mg Take 1 [facility] nivers (BENTYL) 10 8-14 capsule by it y of mg capsule 00:00: mouth [place] 00 every 8 Medical (eight) Branch hours as needed for Abdominal pain. dicyclomine 2020-0 Yes [id number] 10mg Take 1 [facility] nivers (BENTYL) 10 8-14 capsule by it y of mg capsule 00:00: mouth [place] 00 every 8 Medical (eight) Branch hours as needed for Abdominal pain. dicyclomine 2020-0 Yes [id number] 10mg Take 1 [facility] nivers (BENTYL) 10 8-14 capsule by it y of mg capsule 00:00: mouth [place] 00 every 8 Medical (eight) Branch hours as needed for Abdominal pain. dicyclomine 2020-0 Yes [id number] 10mg Take 1 [facility] nivers (BENTYL) 10 8-14 capsule by it y of mg capsule 00:00: mouth [place] 00 every 8 Medical (eight) Branch hours as needed for Abdominal pain. dicyclomine 2020-0 Yes [id number] 10mg Take 1 [facility] nivers (BENTYL) 10 8-14 capsule by it y of mg capsule 00:00: mouth [place] 00 every 8 Medical (eight) Branch hours as needed for Abdominal pain. dicyclomine 2020-0 Yes [id number] 10mg Take 1 U nivers (BENTYL) 10 8-14 capsule by it y of mg capsule 00:00: mouth [place] 00 every 8 Medical (eight) Branch hours as needed for Abdominal pain. dicyclomine 2020-0 Yes [id number] 10mg Take 1 [facility] nivers (BENTYL) 10 8-14 capsule by it y of mg capsule 00:00: mouth [place] 00 every 8 Medical (eight) Branch hours as needed for Abdominal pain. dicyclomine 2020-0 Yes [id number] 10mg Take 1 [facility] nivers (BENTYL) 10 8-14 capsule by it y of mg capsule 00:00: mouth [place] 00 every 8 Medical (eight) Branch hours as needed for Abdominal pain. dicyclomine 2020-0 Yes [id number] 10mg Take 1 U nivers (BENTYL) 10 8-14 capsule by it y of mg capsule 00:00: mouth [place] 00 every 8 Medical (eight) Branch hours as needed for Abdominal pain. dicyclomine 2020-0 Yes [id number] 10mg Take 1 U nivers (BENTYL) 10 8-14 capsule by it y of mg capsule 00:00: mouth [place] 00 every 8 Medical (eight) Branch hours as needed for Abdominal pain. dicyclomine 2020-0 Yes [id number] 10mg Take 1 U nivers (BENTYL) 10 8-14 capsule by it y of mg capsule 00:00: mouth [place] 00 every 8 Medical (eight) Branch hours as needed for Abdominal pain. dicyclomine 2020-0 Yes [id number] 10mg Take 1 U nivers (BENTYL) 10 8-14 capsule by it y of mg capsule 00:00: mouth [place] 00 every 8 Medical (eight) Branch hours as needed for Abdominal pain. dicyclomine 2020-0 Yes [id number] 10mg Take 1 U nivers (BENTYL) 10 8-14 capsule by it y of mg capsule 00:00: mouth [place] 00 every 8 Medical (eight) Branch hours as needed for Abdominal pain. dicyclomine 2020-0 Yes [id number] 10mg Take 1 U nivers (BENTYL) 10 8-14 capsule by it y of mg capsule 00:00: mouth [place] 00 every 8 Medical (eight) Branch hours as needed for Abdominal pain. dicyclomine 2020-0 Yes [id number] 10mg Take 1 U nivers (BENTYL) 10 8-14 capsule by it y of mg capsule 00:00: mouth [place] 00 every 8 Medical (eight) Branch hours as needed for Abdominal pain. dicyclomine 2020-0 Yes [id number] 10mg Take 1 U nivers (BENTYL) 10 8-14 capsule by it y of mg capsule 00:00: mouth [place] 00 every 8 Medical (eight) Branch hours as needed for Abdominal pain. dicyclomine 2020-0 Yes [id number] 10mg Take 1 U nivers (BENTYL) 10 8-14 capsule by it y of mg capsule 00:00: mouth [place] 00 every 8 Medical (eight) Branch hours as needed for Abdominal pain. dicyclomine 2020-0 Yes [id number] 10mg Take 1 U nivers (BENTYL) 10 8-14 capsule by it y of mg capsule 00:00: mouth [place] 00 every 8 Medical (eight) Branch hours as needed for Abdominal pain. dicyclomine 2020-0 Yes [id number] 10mg Take 1 U nivers (BENTYL) 10 8-14 capsule by it y of mg capsule 00:00: mouth [place] 00 every 8 Medical (eight) Branch hours as needed for Abdominal pain. sucralfate 2019-2022- No [id number] 1g Take 1 U nivers 1 gram 8-14 04-25 tablet by ity of tablet 00:00: 00:00 mouth [place] 00 :00 before Medical meals and Branch at bedtime. ondansetron 2019-2022- No [id number] 4mg Take 1 [facility] 4 mg 8-14 04-25 tablet by ity of disintegrat 00:00: 00:00 [place] tablet 00 :00 every 8 Medica l (eight) Branch hours as needed for Nausea and Vomiting (N/V). sucralfate 2022- No [id number] 1g Take 1 U nivers 1 gram 8-14 04-25 tablet by ity of tablet 00:00: 00:00 mouth [place] 00 :00 before Medical meals and Branch at bedtime. ondansetron 2019-2022- No [id number] 4mg Take 1 [facility] 4 mg 8-14 04-25 tablet by ity of disintegrat 00:00: 00:00 [place] tablet 00 :00 every 8 Medica l (eight) Branch hours as needed for Nausea and Vomiting (N/V). sucralfate 2019-0 2022- No [id number] 1g Take 1 U nivers 1 gram 8-14 04-25 tablet by ity of tablet 00:00: 00:00 mouth [place] 00 :00 before Medical meals and Branch at bedtime. ondansetron 2019-0 2022- No [id number] 4mg Take 1 [facility] 4 mg - 04-25 tablet by ity of disintegrat 00:00: 00:00 [place] 00 :00 every 8 Medica l (eight) Branch hours as needed for Nausea and Vomiting (N/V). omeprazole 0 2020- No [id number] 20mg Take 1 U nivers 20 mg 8-08-15 capsule by ity of capsule 00:00: 04:59 mouth [place] 00 :00 daily for Medical 30 days. Branch omeprazole 2020- No [id number] 20mg Take 1 U nivers 20 mg 8-08-15 capsule by ity of capsule 00:00: 04:59 mouth [place] 00 :00 daily for Medical 30 days. Branch omeprazole 0 2020- No [id number] 20mg Take 1 U nivers 20 mg 8-08-15 capsule by ity of capsule 00:00: 04:59 mouth [place] 00 :00 daily for Medical 30 days. Branch omeprazole 2019- 2020- No [id number] 20mg Take 1 U nivers 20 mg -08-15 capsule by ity of capsule 00:00: 04:59 mouth [place] 00 :00 daily for Medical 30 days. Branch omeprazole 2019-0 2020- No [id number] 20mg Take 1 U nivers 20 mg 8-08-15 capsule by ity of capsule 00:00: 04:59 mouth [place] 00 :00 daily for Medical 30 days. Branch omeprazole 2019-0 2020- No [id number] 20mg Take 1 U nivers 20 mg -08-15 capsule by ity of capsule 00:00: 04:59 mouth [place] 00 :00 daily for Medical 30 days. Branch omeprazole 2019-0 2020- No [id number] 20mg Take 1 U nivers 20 mg 07-15 capsule by ity of capsule 00:00: 04:59 mouth [place] 00 :00 daily for Medical 30 days. Branch omeprazole 2019-0 2020- No [id number] 20mg Take 1 U nivers 20 mg 8-08-15 capsule by ity of capsule 00:00: 04:59 mouth [place] 00 :00 daily for Medical 30 days. Branch enoxaparin 2019-0 Yes 40mg 40 mg, Unive rs (LOVENOX) 4-21 Subcutaneo ity of injection 14:00: [place] 40 [place] 00 First dose Medical on [facility] Branch 03/22/20 at 0900, Until Discontinu ed, Routine ondansetron 2020-0 Yes 4mg 4 mg, Slow Univers (ZOFRAN 4-21 IV Push, ity of (PF)) 09:23: Q6HPRN, [place] injection 4 44 Starting Medi dorothy mg [facility] 03/22/20 at 0423, Until Discontinu ed, Routine, Nausea and Vomiting (N/V) ketorolac 2020-0 Yes 15mg 15 mg, Univer s (TORADOL) 4-21 Slow IV ity of injection 09:23: Push, [place] 15 mg 14 Q6HPRN, 4 Medical doses, Branch Starting [facility] 03/22/20 at 0423, Until Discontinu ed, Routine, chest pain
Fa culty member approving Restricted medication : SANJAY LIND acetaminoph 2020-0 Yes 650mg 650 mg, Un gracy en 4-21 Oral, ity of (TYLENOL) 09:22: Q6HPRN, [place] tablet 650 49 Starting Medic al mg [facility] 03/22/20 at 0422, Until Discontinu ed, Routine, Pain (scale 1-3) ondansetron 2020-0 2020- No 4mg 4 mg, Slow Univers (ZOFRAN -21 -21 IV Push, ity of (PF)) 07:15: 07:14 ONCE, 1 [place] injection 4 00 :00 dose, [facility] Med ical mg 03/22/20 at Branch 0215, MATTHEW ondansetron 2018-12 2020- No [id number] 4mg Take 1 [facility] (ZOFRAN 2-25 -21 tablet by ity of ODT) 4 mg 00:00: 00:00 mouth [place] disintegrat 00 :00 every 8 Medic al ing tablet (eight) Branch hours as needed for Nausea and Vomiting (N/V). ketorolac 2018-12 2020- No [id number] 10mg Take 1 [facility] 10 mg 2-25 -21 tablet by ity of tablet 00:00: 00:00 mouth [place] 00 :00 every 6 Medical (six) Branch hours as needed for Pain (scale 1-3). No known No Univers medications ity [facility] [facility] No known No Univers medications ity [facility] [facility] No known No Univers medications ity of [facility] No known No Univers medications ity of [facility] No known No Univers medications ity of [facility] Immunizations Ordered Filled Date Status Comments Source Immunization Name Immunization Name Influenza Virus 2017-09-26 Completed Universit y of [facility] 3+ 00:00:00 [facility] Influenza Virus 2017-09-26 Completed Universit y of Vaccine Quad IM 3+ 00:00:00 [facility] Influenza Virus 2017-09-26 Completed Universit y of Vaccine Quad IM 3+ 00:00:00 [facility] Influenza Virus 2017-09-26 Completed Universit y of Vaccine Quad IM 3+ 00:00:00 [facility] Influenza Virus 2017-09-26 Completed Universit y of Vaccine Quad IM 3+ 00:00:00 [facility] Influenza Virus 2017-09-26 Completed Universit y of Vaccine Quad IM 3+ 00:00:00 [facility] Influenza Virus 2017-09-26 Completed Universit y of Vaccine Quad IM 3+ 00:00:00 [facility] Influenza Virus 2017-09-26 Completed Universit y of Vaccine Quad IM 3+ 00:00:00 [facility] Influenza Virus 2017-09-26 Completed Universit y of Vaccine Quad IM 3+ 00:00:00 [facility] Influenza Virus 2017-09-26 Completed Universit y of Vaccine Quad IM 3+ 00:00:00 [facility] Influenza Virus 2017-09-26 Completed Universit y of Vaccine Quad IM 3+ 00:00:00 [facility] Influenza Virus 2017-09-26 Completed Universit y of Vaccine Quad IM 3+ 00:00:00 [facility] Influenza Virus 2017-09-26 Completed Universit y of Vaccine Quad IM 3+ 00:00:00 [facility] Influenza Virus 2017-09-26 Completed Universit y of Vaccine Quad IM 3+ 00:00:00 [facility] Influenza Virus 2017-09-26 Completed Universit y of Vaccine Quad IM 3+ 00:00:00 [facility] Influenza Virus 2017-09-26 Completed Universit y of Vaccine Quad IM 3+ 00:00:00 [facility] Influenza Virus 2017-09-26 Completed Universit y of Vaccine Quad IM 3+ 00:00:00 [facility] Influenza Virus 2017-09-26 Completed Universit y of Vaccine Quad IM 3+ 00:00:00 [facility] Influenza Virus 2017-09-26 Completed Universit y of Vaccine Quad IM 3+ 00:00:00 [facility] Influenza Virus 2017-09-26 Completed Universit y of Vaccine Quad IM 3+ 00:00:00 [facility] Influenza Virus 2017-09-26 Completed Universit y of Vaccine Quad IM 3+ 00:00:00 [facility] Influenza Virus 2017-09-26 Completed Universit y of Vaccine Quad IM 3+ 00:00:00 [facility] Influenza Virus 2017-09-26 Completed Universit y of Vaccine Quad IM 3+ 00:00:00 [facility] Influenza Virus 2017-09-26 Completed Universit y of Vaccine Quad IM 3+ 00:00:00 [facility] Influenza Virus 2017-09-26 Completed Universit y of Vaccine Quad IM 3+ 00:00:00 [facility] Influenza Virus 2017-09-26 Completed Universit y of Vaccine Quad IM 3+ 00:00:00 [facility] Influenza Virus 2017-09-26 Completed Universit y of Vaccine Quad IM 3+ 00:00:00 [facility] Influenza Virus 2017-09-26 Completed Universit y of Vaccine Quad IM 3+ 00:00:00 [facility] Influenza Virus 2017-09-26 Completed Universit y of Vaccine Quad IM 3+ 00:00:00 [facility] Influenza Virus 2017-09-26 Completed Universit y of Vaccine Quad IM 3+ 00:00:00 [facility] Influenza Virus 2017-09-26 Completed Universit y of Vaccine Quad IM 3+ 00:00:00 [facility] Influenza Virus 2017-09-26 Completed Universit y of Vaccine Quad IM 3+ 00:00:00 [facility] Influenza Virus 2017-09-26 Completed Universit y of Vaccine Quad IM 3+ 00:00:00 [facility] Influenza Virus 2017-09-26 Completed Universit y of Vaccine Quad IM 3+ 00:00:00 [facility] Influenza Virus 2017-09-26 Completed Universit y of Vaccine Quad IM 3+ 00:00:00 [facility] Influenza Virus 2017-09-26 Completed Universit y of Vaccine Quad IM 3+ 00:00:00 [facility] Influenza Virus 2017-09-26 Completed Universit y of Vaccine Quad IM 3+ 00:00:00 [facility] Influenza Virus 2017-09-26 Completed Universit y of Vaccine Quad IM 3+ 00:00:00 [facility] Influenza Virus 2017-09-26 Completed Universit y of Vaccine Quad IM 3+ 00:00:00 [facility] Influenza Virus 2017-09-26 Completed Universit y of Vaccine Quad IM 3+ 00:00:00 [facility] Influenza Virus 2017-09-26 Completed Universit y of Vaccine Quad IM 3+ 00:00:00 [facility] Influenza Virus 2017-09-26 Completed Universit y of Vaccine Quad IM 3+ 00:00:00 [facility] Influenza Virus 2017-09-26 Completed Universit y of Vaccine Quad IM 3+ 00:00:00 [facility] Influenza Virus 2017-09-26 Completed Universit y of Vaccine Quad IM 3+ 00:00:00 [facility] Influenza Virus 2017-09-26 Completed Universit y of Vaccine Quad IM 3+ 00:00:00 [facility] Influenza Virus 2017-09-26 Completed Universit y of Vaccine Quad IM 3+ 00:00:00 [facility] Influenza Virus 2017-09-26 Completed Universit y of Vaccine Quad IM 3+ 00:00:00 [facility] Influenza Virus 2017-09-26 Completed Universit y of Vaccine Quad IM 3+ 00:00:00 [facility] Influenza Virus 2017-09-26 Completed Universit y of Vaccine Quad IM 3+ 00:00:00 [facility] Influenza Virus Unknown Completed Universit y of Vaccine Quad IM 3+ [facility] Vital Signs Vital Name Observation Time Observation Value Comments Source Body temperature 2023-05-03 37.33 [facility] of 21:04:00 [facility] Body height 2023-05-03 152.4 cm University of :04:00 [facility] Body weight 2023-05-03 58.968 kg University of :04:00 [facility] BMI 2023-05-03 25.39 kg/m2 University of 21:04: [facility] WEIGHT 2023-04-23 57.6 kg 03:00:00 WEIGHT 2023-04-23 57.6 kg 03:00:00 WEIGHT 2023-04-23 57.6 kg 03:00:00 Systolic blood 2023-04-08 143 mm[Hg] University of pressure 16:08:00 [facility] Diastolic blood 2023-04-08 91 mm[Hg] University o f pressure 16:08:00 [facility] Heart rate 2023-04-08 87 /min University of 16:08:00 [facility] Body temperature 2023-04-08 35.89 [place] of 16:08:00 [facility] Body height 2023-04-08 152.4 cm University of 16:08:00 [facility] Body weight 2023-04-08 60.51 kg University of 16:08:00 [facility] BMI 2023-04-08 26.05 kg/m2 University of 16:08:00 [facility] Heart rate 2023-03-27 86 /min University of 18:25:00 [facility] Respiratory rate 2023-03-27 15 /min University of 18:25:00 [facility] Oxygen saturation 2023-03-27 99 /min University in Arterial blood 18:25:00 [facility] Pulse oximetry [facility] Systolic blood 2023-03-27 124 mm[Hg] University of pressure 18:15:00 [facility] Diastolic blood 2023-03-27 95 mm[Hg] University o f pressure 18:15:00 [facility] Body temperature 2023-03-27 36 [place] [facility] of 17:52:00 [facility] Body height 2023-03-27 152.4 cm University of 14:46:00 [facility] Body weight 2023-03-27 59.421 kg University of 14:46:00 [facility] BMI 2023-03-27 25.58 kg/m2 University of 14:46:00 [facility] Systolic blood 2023-03-27 141 mm[Hg] University of pressure 14:47:00 [facility] Diastolic blood 2023-03-27 87 mm[Hg] University o f pressure 14:47:00 [facility] Heart rate 2023-03-27 95 /min University of 14:47:00 [facility] Body temperature 2023-03-27 36.67 Yarelis University of 14:46:00 [facility] Respiratory rate 2023-03-27 14 /min University of 14:46:00 [facility] Body height 2023-03-27 152.4 cm University of 14:46:00 [facility] Body weight 2023-03-27 59.421 kg University of 14:46:00 [facility] BMI 2023-03-27 25.58 kg/m2 University of 14:46:00 [facility] Oxygen saturation 2023-03-27 98 /min University of in Arterial blood 14:46:00 [place] [facility] Pulse oximetry [facility] Systolic blood 2023-03-25 131 mm[Hg] University of pressure 20:46:00 [facility] Diastolic blood 2023-03-25 87 mm[Hg] University o f pressure 20:46:00 [facility] Heart rate 2023-03-25 114 /min University of 20:46:00 [facility] Body temperature 2023-03-25 36.56 Yarelis University of 20:46:00 [facility] Body height 2023-03-25 152.4 cm University of 20:46:00 [facility] Body weight 2023-03-25 61.598 kg University of 20:46:00 [facility] BMI 2023-03-25 26.52 kg/m2 University of 20:46:00 [facility] Systolic blood 2023-03-16 134 mm[Hg] University of pressure 14:40:00 [facility] Diastolic blood 2023-03-16 90 mm[Hg] University o f pressure 14:40:00 [facility] Heart rate 2023-03-16 87 /min University of 14:40:00 [facility] Body temperature 2023-03-16 37.28 Yarelis University of 14:40:00 [facility] Respiratory rate 2023-03-16 16 /min University of 14:40:00 [facility] Body height 2023-03-16 152.4 cm University of 14:40:00 [facility] Body weight 2023-03-16 56.7 kg University of 14:40:00 [facility] BMI 2023-03-16 24.41 kg/m2 University of 14:40:00 [facility] Oxygen saturation 2023-03-16 99 /min University of in Arterial blood 14:40:00 [place] [facility] Pulse [facility] Systolic blood 2020-12-26 115 mm[Hg] University of pressure 09:00:00 [facility] Diastolic blood 2020-12-26 76 mm[Hg] University o f pressure 09:00:00 [facility] Heart rate 2020-12-26 78 /min University of 09:00:00 [facility] Body temperature 2020-12-26 36.22 Yarelis University of 09:00:00 [facility] Respiratory rate 2020-12-26 16 /min University of 09:00:00 [facility] Oxygen saturation 2020-12-26 100 /min University of in Arterial blood 09:00:00 [facility] dorothy by Pulse oximetry Branch Body weight 2020-12-26 53.978 kg University of 00:27:00 [facility] BMI 2020-12-26 24.04 kg/m2 University of 00:27:00 [facility] Systolic blood 2020-12-26 115 mm[Hg] University of pressure 09:00:00 [facility] Diastolic blood 2020-12-26 76 mm[Hg] University o f pressure 09:00:00 [facility] Heart rate 2020-12-26 78 /min University of 09:00:00 [facility] Body temperature 2020-12-26 36.22 Yarelis University of 09:00:00 [facility] Respiratory rate 2020-12-26 16 /min University of 09:00:00 [facility] Oxygen saturation 2020-12-26 100 /min University of in Arterial blood 09:00:00 [facility] by Pulse oximetry Branch Body weight 2020-12-26 53.978 kg University of ::00 [facility] BMI 2020-12-26 24.04 kg/m2 University of 00:27:00 [facility] Systolic blood 2020-12-25 92 mm[Hg] University of pressure 22:30:00 [facility] Diastolic blood 2020-12-25 59 mm[Hg] University o f pressure 22:30:00 [facility] Heart rate 2020-12-25 91 /min University of 22:30:00 [facility] Respiratory rate 2020-12-25 14 /min University of 22:30:00 [facility] Oxygen saturation 2020-12-25 100 /min University of in Arterial blood 22:30:00 [facility] dorothy by Pulse oximetry [facility] Body temperature 2020-12-25 36.89 Yarelis University of 16:07:00 [facility] Body height 2020-12-25 149.9 cm University of 16:07:00 [facility] Body weight 2020-12-25 53.978 kg University of 16:07:00 [facility] BMI 2020-12-25 24.04 kg/m2 University of 16:07:00 [facility] Systolic blood 2020-12-25 92 mm[Hg] University of pressure 22:30:00 [facility] Diastolic blood 2020-12-25 59 mm[Hg] University o f pressure 22:30:00 [facility] Heart rate 2020-12-25 91 /min University of 22:30:00 [facility] Respiratory rate 2020-12-25 14 /min University of 22:30:00 [facility] Oxygen saturation 2020-12-25 100 /min [facility] in Arterial blood 22:30:00 [facility] by Pulse oximetry [facility] Body temperature 2020-12-25 36.89 Yarelis University of 16:07:00 [facility] Body height 2020-12-25 149.9 cm University of 16:07:00 [facility] Body weight 2020-12-25 53.978 kg University of 16:07:00 [facility] BMI 2020-12-25 24.04 kg/m2 University of 16:07:00 [facility] Systolic blood 2020-07-26 146 mm[Hg] University of pressure 20:54:00 [facility] Diastolic blood 2020-07-26 96 mm[Hg] University o f pressure 20:54:00 [facility] Heart rate 2020-07-26 91 /min University of 19:55:00 [facility] Body temperature 2020-07-26 36.78 Yarelis University of 19:55:00 [facility] Respiratory rate 2020-07-26 16 /min University of 19:55:00 [facility] Body height 2020-07-26 172.7 cm University of 19:55:00 [facility] Body weight 2020-07-26 54.148 kg University of 19:55:00 [facility] BMI 2020-07-26 18.15 kg/m2 University of 19:55:00 [facility] Systolic blood 2020-07-15 119 mm[Hg] University of pressure 23:00:00 [facility] Diastolic blood 2020-07-15 80 mm[Hg] University o f pressure 23:00:00 [facility] Heart rate 2020-07-15 79 /min University of 23:00:00 [facility] Respiratory rate 2020-07-15 20 /min University of 23:00:00 [facility] Oxygen saturation 2020-07-15 96 /min University of in Arterial blood 23:00:00 [facility] by Pulse oximetry Branch Body temperature 2020-07-15 37.11 Yarelis University of 18:21: [facility] Body weight 2020-07-15 52.164 kg University of 18:21: [facility] BMI 2020-07-15 17.49 kg/m2 University of 18:21:00 [facility] Body temperature 2020-06-12 36.89 Yarelis University of 02:50:00 [facility] Respiratory rate 2020-06-12 24 /min University of 02:50:00 [facility] Body weight 2020-06-12 50.803 kg University of 02:50:00 [facility] BMI 2020-06-12 17.03 kg/m2 University of 02:50:00 [facility] Oxygen saturation 2020-06-12 98 /min [facility] in Arterial blood 02:50:00 [facility] by Pulse oximetry Branch Systolic blood 2020-06-12 141 mm[Hg] University of pressure 02:50:00 [facility] Diastolic blood 2020-06-12 105 mm[Hg] University o f pressure 02:50:00 [facility] Heart rate 2020-06-12 108 /min University of 02:50:00 [facility] Systolic blood 2020-03-22 131 mm[Hg] University of pressure 16:32:00 [facility] Diastolic blood 2020-03-22 81 mm[Hg] University o f pressure 16:32:00 [facility] Heart rate 2020-03-22 70 /min University of 16:32:00 [facility] Body temperature 2020-03-22 37.06 Yarelis University of 16:32:00 [facility] Respiratory rate 2020-03-22 18 /min University of 16:32:00 [facility] Oxygen saturation 2020-03-22 97 /min University in Arterial blood 16:32:00 [facility] by Pulse oximetry Branch Body height 2020-03-22 172.7 cm patient stated University of 09:15:00 height on [facility] admission. [facility] Body weight 2020-03-22 54.942 kg bedscale upon University of 09:15:00 admission to [facility] Branch BMI 2020-03-22 18.42 kg/m2 University of 09:15:00 [facility] Heart rate 2023-04-24 122 /min [facility] 11:37:03 [facility] [place] Respiratory rate 2023-04-24 16 /min [facility] 11:37:03 [facility] Oxygen saturation 2023-04-24 95 /min [facility] in Arterial blood 11:37:03 Medical nter by Pulse oximetry Body temperature 2023-04-[address] [facility] 11:36:51 [facility] Systolic blood 2023-04-24 135 mm[Hg] [facility] pressure 11:36:30 [facility] Diastolic blood 2023-04-24 120 mm[Hg] [facility] pressure 11:36:30 [facility] Body weight 2023-04-[address] [facility] 03[facility] Procedures Procedure Date / Time Performing Clinician Source Performed XR HAND 3+ VW RIGHT 2023-05-03 19:47:42 Yonas Fitzgerald [facility] CBC W/PLT COUNT & AUTO 2023-04-24 06:45:[address] [facility] DIFFERENTIAL [facility] Center CBC W/PLT COUNT & AUTO 2023-04-24 06:45:00 [place] Jonessh [facility] DIFFERENTIAL [facility] CBC W/PLT COUNT & AUTO 2023-04-23 04:40:[address] [place] [address] [facility] DIFFERENTIAL Ali Center BASIC METABOLIC PANEL 2023-04-23 04:40:00 Dominique Jones [facility] Ali Center CBC W/PLT COUNT & AUTO 2023-04-23 04:40:[address] [place] [address] [facility] DIFFERENTIAL [facility] CBC W/PLT COUNT & AUTO 2023-04-22 04:00:[address] [place] [address] [facility] DIFFERENTIAL Ali Center BASIC METABOLIC PANEL 2023-04-22 04:00:00 Dominique Jones [facility] Ali Center CBC W/PLT COUNT & AUTO 2023-04-22 04:00:00 [place] Jonessh C [facility] DIFFERENTIAL [facility] FL FLUORO NON-SPECIFIC UP 2023-04-21 11:50:00 Fernando Pandya [facility] TO 1 HOUR Center TISSUE EXAM 2023-04-21 10:34:00 [facility] CYSTOSCOPY 2023-04-21 09:45:00 [facility] PROCEDURE W/ C-ARM 2023-04-21 09:45:00 [facility] STD PANEL - CT/GC RNA 2023-04-21 06:25[facility]00 [facility] SCREEN, URINE 2023-04-21 06:25:00 Artur Wong [facility] CBC W/PLT COUNT & AUTO 2023-04-21 06:22:00 [facility] DIFFERENTIAL [place] BASIC METABOLIC PANEL 2023-04-21 06:22:00 [facility] HC LAB HIV-1 AG W/HIV-1&2 2023-04-21 06:22:00 [facility] AB [facility] HEPATITIS C ANTIBODY 2023-04-21 06:22:00 [facility] RPR 2023-04-21 06:22:00 [facility] HEPATITIS B PANEL 2023-04-21 06:22:00 [facility] MAGNESIUM 2023-04-21 06:22:00 [facility] PHOSPHORUS 2023-04-21 06:22:00 [facility] PROTHROMBIN TIME/INR 2023-04-21 06:22:00 [facility] TYPE AND SCREEN, 2023-04-21 06:22:00 [facility] CBC W/PLT COUNT & AUTO 2023-04-21 06:22:00 Dyllan Felipe [facility] URINE CULTURE 2023-04-21 01:43:00 Dyllan Felipe [facility] URINALYSIS W/ REFLEX 2023-04-21 01:43:00 Dyllan Felipe [facility] URINE CULTURE Center MEDICATION CORRESPONDENCE 2023-03-29 05:01:00 Doctor Unassigned, No [facility] FL TIME OR 2023-03-27 17:22:00 Dyllan Weller [facility] (NON-REPORTABLE) Medical Branch FL TIME OR 2023-03-27 17:22:00 Dyllan Weller [facility] (NON-REPORTABLE) [facility] METACARPAL ORIF 2023-03-27 15:52:00 Yonas Fitzgerald [facility] NERVE BLOCK 2023-03-27 14:54:47 Dyllan [facility] ASSIGNMENT OF BENEFITS 2023-03-27 14:19:17 Doctor Unassigned, No [facility] XR SCAPULA LEFT 2023-03-25 21:23:00 Dyllan Weller [facility] XR SHOULDER 2+ VW LEFT 2023-03-25 21:23:00 Dyllan Weller [facility] XR HAND 3+ VW RIGHT 2023-03-25 21:23:00 Dyllan Weller [facility] ASSIGNMENT OF BENEFITS 2023-03-25 19:49:51 Doctor Unassigned, No [facility] XR HAND 3+ VW RIGHT 2023-03-16 15:18:48 Mojgan Shah [facility] NOTICE OF PRIVACY 2023-03-16 14:35:26 Doctor Unassigned, No [facility] PRACTICES Name Medical Branch CONSENT/REFUSAL FOR 2023-03-16 14:34:22 Doctor Unassigned, No [facility] DIAGNOSIS AND TREATMENT [facility] Medical Branch REFERRAL- 2023-03-04 05:01:00 Doctor Unassigned, No [facility] REQUEST/RESPONSE [facility] Medical Branch XR HAND 3+ VW LEFT 2020-12-26 09:21:04 Yonas Pe[facility] CT HEAD WO CONTRAST 2020-12-26 05:48:00 Yonas Perea [facility] ETHANOL 2020-12-25 21:54:00 Mynor Hollis [facility] ETHANOL 2020-12-25 20:21:00 Mynor Hollis [facility] POCT TEST 2020-12-25 18:07:00 Mynor Hollis [facility] ADC / LCC - DRUG SCREEN 2020-12-25 18:05:00 Mynor Hollis [facility] TRIAGE Medical Branch XR KUB 2020-12-25 17:06:45 Mynor Hollis [facility] COVID-19 (ID NOW RAPID 2020-12-25 16:55:00 Mynor Hollis [facility] TESTING) Medical Branch BASIC METABOLIC PANEL 2020-12-25 16:19:00 Mynor Hollis [facility] (NA, K, CL, CO2, GLUCOSE, Medica l Branch BUN, CREATININE, CA) ETHANOL 2020-12-25 16:19:00 Mynor Hollis [facility] CBC WITH DIFF 2020-12-25 16:19:00 Mynor Hollis [facility] ASSIGNMENT OF BENEFITS 2020-07-26 19:40:02 Doctor Unassigned, No [facility] Name [facility] CT ABDOMEN PELVIS W 2020-07-15 22:13:14 Singer Dhruv [facility] CONTRAST [facility] POCT TEST 2020-07-15 18:47:00 Singer Dhruv [facility] COMP. METABOLIC PANEL 2020-07-15 18:45:00 Singer [facility] ([id number]) Medical Branch CBC WITH DIFF 2020-07-15 18:45:00 Singer [facility] URINALYSIS 2020-07-15 18:45:00 Singer [facility] COVID-19 (ID NOW RAPID 2020-07-15 18:45:00 [facility] TESTING) Medical Branch CONSENT/REFUSAL FOR 2020-07-15 18:15:15 Doctor Unassigned, No [facility] DIAGNOSIS AND TREATMENT Name [facility] XR CHEST 1 VW 2020-06-12 21:33:46 Andrew Limon [facility] NOTICE OF PRIVACY 2020-06-12 20:57:27 Doctor Unassigned, No [facility] PRACTICES Name [facility] CONSENT/REFUSAL FOR 2020-06-12 20:53:21 Doctor Unassigned, No [facility] ECHO ROUTINE W/DOPPLER 2020-03-22 14:40:35 Alex Thomas [facility] COLOR [facility] XR CHEST 1 VW COVID 2020-03-22 07:40:01 Shun Benedict [facility] CORONAVIRUS COVID-19 2020-03-22 07:16:00 Shun Benedict [facility] TESTING [facility] LIPASE 2020-03-22 07:14:00 Shun Benedict [facility] TROPONIN I 2020-03-22 07:14:00 Shun Benedict [facility] COMP. METABOLIC PANEL 2020-03-22 07:14:00 Shun Benedict [facility] ([id number]) [facility] CBC WITH DIFFERENTIAL 2020-03-22 07:14:00 Shun [facility] EKG-12 LEAD 2020-03-22 07:07:34 Shun Benedict [facility] EKG-12 LEAD 2020-03-22 07:01:19 Shun Benedict [facility] Plan of Care Planned Activity Planned Date Details Comments Source Future Scheduled 2023 Lipid panel (procedure) [facility] Test 00:00:00 [code = 78751527] Medical Ce nter Future Scheduled 2023 Lipid panel (procedure) [facility] Test 00:00:00 [code = 91112701] Medical Ce nter Future Scheduled 2023 Lipid panel (procedure) [facility] Test 00:00:00 [code = 09487069] Medical Ce nter Future Scheduled 2023-08-02 Influenza Vaccine (#1) [facility] 00:00:00 [code = Influenza Vaccine [facility] (#1)] Future Scheduled 2023-08-02 INFLUENZA VACCINE (Season [facility] Test 00:00:00 Ended) [code = INFLUENZA Med ica Center VACCINE (Season Ended)] Future Scheduled 2023-08-02 [...] cervix Medical C enter (procedure) [code = 230348565] Future Scheduled 1999 Screening for malignant [facility] Test 00:00:00 neoplasm of cervix Medical C enter (procedure) [code = 457635212] Future Scheduled 1999 Screening for malignant [facility] Test 00:00:00 neoplasm of cervix Medical C enter (procedure) [code = 184251665] Future Scheduled 1999 Screening for malignant [facility] Test 00:00:00 neoplasm of cervix Medical C enter (procedure) [code = 568962731] Future Scheduled 1999 Screening for malignant [facility] Test 00:00:00 neoplasm of cervix Medical C enter (procedure) [code = 687342547] Future Scheduled 1999 Screening for malignant [facility] Test 00:00:00 neoplasm of cervix Medical C enter (procedure) [code = 381642019] Future Scheduled 1999 Screening for malignant [facility] Test 00:00:00 neoplasm of cervix Medical C enter (procedure) [code = 371030001] Future Scheduled 1999 Screening for malignant [facility] Test 00:00:00 neoplasm of cervix Medical C enter (procedure) [code = 589346633] Future Scheduled 1999 Screening for malignant [facility] Test 00:00:00 neoplasm of cervix Medical C enter (procedure) [code = 432366404] Future Scheduled 1999 Screening for malignant [facility] Test 00:00:00 neoplasm of cervix Medical C enter (procedure) [code = 536049907] Future Scheduled 1999 Screening for malignant [facility] Test 00:00:00 neoplasm of cervix Medical C enter (procedure) [code = 345974584] Future Scheduled 1999 Screening for malignant [facility] Test 00:00:00 neoplasm of cervix Medical C enter (procedure) [code = 815512903] Future Scheduled 1999 Screening for malignant [facility] Test 00:00:00 neoplasm of cervix Medical C enter (procedure) [code = 874583717] Future Scheduled 1997 DTAP/TDAP/TD VACCINES (1 [facility] [...] screening Medical Cent er (procedure) [code = 278294093] Future Scheduled [address] [facility] Test 00:00:00 [code = CT Colonography [facility] Center (combo)] Future Scheduled 1978 Screening for malignant [facility] Test 00:00:00 neoplasm of colon Medical Ce nter (procedure) [code = 421216234] Future Scheduled 1978 Screening for malignant [facility] Test 00:00:00 neoplasm of colon Medical Ce nter (procedure) [code = 744639784] Future Scheduled 1978 Screening for malignant [facility] Test 00:00:00 neoplasm of colon Medical Ce nter (procedure) [code = 442577419] Future Scheduled 1978 Screening for malignant [facility] Test 00:00:00 neoplasm of colon Medical Ce nter (procedure) [code = 453328297] Future Scheduled 1978 Sigmoidoscopy [code = [facility] S[facility]oscopy] Medical Cente r Future Scheduled 1978 CT Colonography (combo) [facility] Test 00:00:00 [code = CT Colonography [facility] Center (combo)] Future Scheduled 1978 Screening for malignant [facility] Test 00:00:00 neoplasm of colon Medical Ce nter (procedure) [code = 450884095] Future Scheduled 1978 Screening for malignant [facility] Test 00:00:00 neoplasm of colon Medical Ce nter (procedure) [code = 937438841] Future Scheduled 1978 Screening for malignant [facility] Test 00:00:00 neoplasm of colon Medical Ce nter (procedure) [code = 180600081] Future Scheduled 1978 Screening for malignant [facility] Test 00:00:00 neoplasm of colon Medical Ce nter (procedure) [code = 037985265] Future Scheduled 1978 Sigmoidoscopy [facility]code = [facility] S[facility]oidoscopy] Medical Cente r Future Scheduled 1978 CT Colonography (combo) [facility] Test 00:00:00 [code = CT Colonography [facility] Center (combo)] Future Scheduled 1978 Screening for malignant [facility] Test 00:00:00 neoplasm of colon Medical Ce nter (procedure) [code = 845526643] Future Scheduled 1978 Screening for malignant [facility] Test 00:00:00 neoplasm of colon Medical Ce nter (procedure) [code = 436504982] Future Scheduled 1978 Screening for malignant [facility] Test 00:00:00 neoplasm of colon Medical Ce nter (procedure) [code = 538570065] Future Scheduled 1978 Screening for malignant [facility] Test 00:00:00 neoplasm of colon Medical Ce nter (procedure) [code = 437713471] Future Scheduled 1978 Sigmoidoscopy [facility]code [facility] S[facility]oscopy] Medical Cente r Encounters Start End Encounter Admission Attending Care Care Encounter Source Date/Time Date/Time Type Type Clinicians Facility Department ID 2021-09-30 Emergency [facility] [id number] Univers 19:08:09 ity of [facility] 2021-09-29 Emergency [facility] [id number] Univers 12:33:46 ity of [facility] 2021-09-29 Emergency [facility] [id number] Univers 06:13:55 ity of [facility] 2021-09-29 Emergency [facility] [id number] [facility] [id number] [facility] 00:35:00 93 [facility] 2020-02-17 Inpatient [facility] PRE[facility]Y [id number] [facility] 15:56:00 19 [facility] 2023-08-12 2023-08-12 Outpatient Itzel FITZGERALD [facility] [id number] Univers 13:00:00 13:00:00 YONAS [facility] 2023-07-15 2023-07-15 [id number] Univers 14:30:00 14:30:00 YONAS [facility] 2023-06-24 2023-06-24 Outpatient Itzel FITZGERALD [facility] [id number] Univers 16:10:00 16:10:00 YONAS [facility] 2023-06-10 2023-06-10 Outpatient Itzel FITZGERALD [facility] [id number] Univers 11:30:00 11:30:00 YONAS [facility] 2023-06-02 2023-06-02 [facility] [id number] Univers 00:00:00 00:00:00 Yonas Arnold SPECIALTY [id number] ity of CARE [id number] [facility] AT [phone] [address] 2023-05-28 2023-05-28 [facility] [id number] Univers 00:00:00 00:00:00 Yonas M SPECIALTY [id number] [place] C[place] [id number] [id number] [place] dicblair GAMINO [address] [facility] 2023-05-28 2023-05-28 [facility] [id number] Univers 00:00:00 00:00:00 Dyllan SPECIALTY 350.1.13.10 [phone] Ga dicblair GAMINO [address] [facility] 2023-05-15 2023-05-15 [facility] 1.2.840.114 [id number] Univers 00:00:00 00:00:00 Yonas M SPECIALTY 350.1.13.10 [place] [phone] Ga maryam GAMINO [address] [facility] 2023-05-13 2023-05-13 [facility] 1.2.840.114 [id number] Univers 00:00:00 00:00:00 Yonas M SPECIALTY 350.1.13.10 [place] [id number] Ga maryam GAMINO [address] [facility] 2023-05-09 2023-05-09 [facility] 1.2.840.114 [id number] Univers 00:00:00 00:00:00 Yonas M SPECIALTY 350.1.13.10 [place] [phone] Ga dicblair GAMINO [address] [facility] 2023-05-03 2023-05-03 [facility] 1.2.840.114 [id number] Univers 14:33:59 23:59:00 Encounter Yonas M PRIMARY 350.1.13.10 [place] [id number] Me dical [address] 2023-05-03 2023-05-03 Office [facility] 1.2.840.114 [id number] Univers 14:00:00 14:10:00 Visit Yonas M PRIMARY 350.1.13.10 ity of CARE 4.2.7.2.686 [facility] [phone] [address] 2023-05-03 2023-05-03 Outpatient Itzel FITZGERALD [facility] [id number] Univers 14:00:00 14:00:00 YONAS samina [facility] 2023-04-30 2023-04-30 Telephone Lia [facility] 1.2.862.983 [id number] Univers 00:00:00 00:00:00 Yonas Catalina SPECIALTY 350.1.13.10 ity of CARE 4.2.7.2.686 [facility] [phone] [facility] [address] 2023-04-20 2023[facility]04-[facility] [id number] [facility] 23[facility] 15:44:00 [facility] [facility] [facility] [id number] [facility] 23[facility]23[facility]00 15:44:00 [facility]-04-20 2023-04-24 Inpatient ER SHEILA LOVE [facility] [id number] [facility] 23:23:00 15:44:00 [facility] 2023-04-22 2023-04-22 Outpatient Itzel FITZGERALD [facility] [id number] Univers 10:20:00 10:20:00 YONAS [facility] 2023-04-21 2023-04-[address] [facility] [id number] 09:22:00 12:02:[address] [facility] 2023-04-21 2023-04-[address] [facility] [id number] 09:22:00 12:02:[address] [facility] 2023-04-21 2023-04-[address] [facility] [id number] 09:00:00 11:26:00 [facility] 2023-04-21 2023-04-[address] [facility] [id number] 09:00:00 11:26:00 [facility] 2023-04-20 2023-04-[address] [facility] [id number] [facility]00 [facility] 2023-04-20 2023-04-[address] [facility] [id number] [facility]00 [facility] 2023-04-08 2023-04-08 [facility] 1.2.840.114 [id number] Univers 11:18:10 23:59:00 Encounter Yonas Arnold SPECIALTY 350.1.13.10 ity of CARE 4.2.7.2.686 [facility] AT [phone] Ga maryam GAMINO [address] [facility] 2023-04-08 2023-04-08 [facility] [id number] Univers 11:30:00 12:05:00 YONAS tucker [facility] 2023-04-08 2023-04-08 Office [facility] 1.2.840.114 [id number] Univers 11:30:00 12:05:00 Visit Yonas Arnold SPECIALTY 350.1.13.10 ity of CARE 4.2.7.2.686 [facility] AT [phone] Ga maryam GAMINO [address] [facility] 2023-03-29 2023-03-29 Orders Doctor SYLVIA 1.2.840.114 [id number] Univers 00:00:00 00:00:00 Only Unassigned, DERIAN 350.1.13.10 ity of [place] [facility] 4.2.7.2.686 Jose [phone] [address] 2023-03-27 2023-03-27 [facility] [id number] Univers 09:19:00 13:42:00 YONAS tucker [facility] 2023-03-27 2023-03-27 [facility] 1.2.840.114 [id number] Univers 09:19:00 13:42:00 Encounter Yonas Arnold HEALTH 350.1.13.10 [place] [phone] [facility] 049 [facility] ([facility] 2023-03-27 2023-03-27 Anesthesia Ashely Myrick [facility] 1.2.840 .114 [id number] Univers 11:08:00 12:53:00 Event Antonio Monroe SPECIALTY 3 50.1.13.10 [place] [phone] Ga dicblair GAMINO [address] [facility] 2023-03-27 2023-03-27 Surgery [facility] 1.2.840.114 [id number] Univers 10:55:00 12:38:00 Yonas [place]ina SPECIALTY 350.1.13.10 [place] [phone] Ga maryam COVARRUBIAS [address] [facility] 2023-03-27 2023-03-27 Orders Doctor SYLVIA 1.2.840.114 [id number] Univers 00:00:00 00:00:00 Only Unassigned, DERIAN 350.1.13.10 ity of [place] [facility] 4.2.7.2.686 Jose as [phone] [facility] [address] 2023-03-26 2023-03-26 Patient Doctor SYLVIA 1.2.840.114 [id number] Univers 00:00:00 00:00:00 Secure Msg Unassigned, DERIAN 350.1.13.10 ity of [place] [facility] 4.2.7.2.686 Jose as [id number] [facility] [address] 2023-03-25 2023-03-25 [facility] 1.2.840.114 [id number] Univers 16:12:45 23:59:00 Encounter Yonas Arnold SPECIALTY 350.1.13.10 [place] [phone] Ga dicblair COVARRUBIASY [address] [facility] 2023-03-25 2023-03-25 [facility] 1.2.840.114 [id number] Univers 16:12:33 23:59:00 Encounter Yonas M SPECIALTY 350.1.13.10 [place] [phone] Ga maryam GAMINO [address] [facility] 2023-03-25 2023-03-25 Outpatient R [facility] [id number] Univers 15:10:00 17:04:47 YONAS ity [facility] 2023-03-25 2023-03-25 Office [facility] 1.2.840.114 [id number] Univers 15:10:00 17:04:47 Visit Yonas M SPECIALTY 350.1.13.10 [place] [phone] Ga maryam GAMINO [address] [facility] 2023-03-25 2023-03-25 [facility] 1.2.840.114 [id number] Univers 16:10:00 16:11:00 Encounter Yonas Arnold SPECIALTY 350.1.13.10 [place] [phone] Ga maryam GAMINO [address] [facility] 2023-03-25 2023-03-25 Orders Doctor SYLVIA 1.2.840.114 [id number] Univers 00:00:00 00:00:00 Only Unassigned, DERIAN 350.1.13.10 ity of [place] [facility] 4.2.7.2.686 Jose as [phone] [facility] dorothy [address] 2023-03-16 2023-03-16 Emergency X Mojgan SHAH [facility] ERT [id number] Univers 09:41:00 12:36:00 ity of [facility] 2023-03-16 2023-03-16 Emergency Mojgan Shah [facility] 1.2.840.114 [id number] Univers 09:41:00 12:36:00 Loyda VELAZCO 350.1.13.10 i ty [place] [id number] [facility] dorothy 0[address] 2023-03-04 2023-03-04 Orders Doctor SYLVIA 1.2.840.114 [id number] Univers 00:00:00 00:00:00 Only Unassigned, DERIAN 350.1.13.10 ity of [place] [facility] 4.2.7.2.686 Jose as [phone] [address] 2021-11-16 2021-11-18 Inpatient ER [facility] Urology [id number] SLE 02:50:00 15:40:00 GRAZYNA 2020-12-25 2020-12-26 Emergency Brit, TRAU[facility] 1.2.665.907 [id number] 18:26:00 04:04:00 [facility] 350.1.13.10 4.2.7.2.686 [id number] 014 2020-12-25 2020-12-26 Emergency Brit, [facility] 1.2.573.600 [id number] Univers 18:26:00 04:04:00 [facility] 350.1.13.10 [place] [id number] [address] 2020-12-25 2020-12-25 Emergency [place], [facility] 1.2.429.053 [id number] 10:03:00 18:22:00 [facility] 350.1.13.10 [place] 4.2.7.2.[address] [place] [id number] [address] ([facility]) 2020-12-25 2020-12-25 Emergency [place], [facility] 1.2.821.261 [id number] Univers 10:03:00 18:22:00 [facility] 350.1.13.10 it [place] [id number] [address] ([facility] 2020-12-25 2020-12-25 Emergency X HARKEY, [facility] ERT [id number] Univers 10:03:00 18:22:00 MYNOR ity of [facility] 2020-08-17 2020-08-17 [facility] 1.2.840.114 [id number] 06:29:56 23:59:00 Encounter Roshunda R SPECIALTY 350.1.13.10 CARE 4.2.7.2.686 CENTER AT [id number] [address] 2020-08-17 2020-08-17 [facility] 1.2.840.114 [id number] Univers 06:29:56 23:59:00 Encounter Roshunda R SPECIALTY 350.1.13.10 [place] [phone] Ga dical [address] 2020-08-17 2020-08-17 Outpatient [facility] [id number] Univers 00:00:00 00:00:00 ROSWERNERNDA ity o [facility] 2020-08-17 2020-08-17 Outpatient [facility] [id number] Univers 00:00:00 00:00:00 DKNDA ity o [facility] 2020-08-10 2020-08-10 Telephone [facility] 1.2.015.572 [id number] 00:00:00 00:00:00 Roswernernda R CHEMICAL INSTRUMENTATION OFFICER 350.1.13.10 REGIONAL 4.2.7.2.686 MATERNAL [id number] & CHILD [address] [place] [address] 2020-08-10 2020-08-10 Telephone [facility] 1.2.447.047 [id number] Univers 00:00:00 00:00:00 Roswernernda R CHEMICAL INSTRUMENTATION OFFICER 350.1.13.10 ity of REGIONAL 4.2.7.2.686 Jose as MATERNAL [phone] Med ical & CHILD [address] [place] [address] 2020-07-26 2020-07-26 Office [facility] 1.2.840.114 [id number] Univers 14:44:48 15:48:25 Visit Dknda R CHEMICAL INSTRUMENTATION OFFICER 350.1.13.10 ity of REGIONAL 4.2.7.2.686 Jose as MATERNAL [phone] Med ical & CHILD [address] [place] [address] 2020-07-26 2020-07-26 Outpatient [facility] [id number] Univers 14:00:00 14:00:00 ROSHUNDA ity o f [facility] 2020-07-26 2020-07-26 Orders Doctor SYLVIA 1.2.840.114 [id number] Univers 00:00:00 00:00:00 Only Unassigned, DERIAN 350.1.13.10 ity of [place] [facility] 4.2.7.2.686 Jose as [phone] [facility] [address] 2020-07-15 2020-07-15 Emergency [facility] 1.2.607.946 [id number] Univers 13:25:00 19:02:00 Dhruv Velazco 350.1.13.10 i ty of [place] 4.2.7.2.686 [facility] [phone] [place] [address] 2020-06-14 2020-06-14 Telephone SYLVIA Shi 1.2.840.114 [id number] Univers 00:00:00 00:00:00 Kaylah Lau DERIAN 350.1.13.10 i ty of [facility] 4.2.7.2.686 [place] as [id number] [facility] [address] 2020-06-12 2020-06-12 Emergency [facility] 1.2.840.114 [id number] Univers 15:56:18 17:25:00 Andrew Velazco 350.1.13.10 i ty of [place] 4.2.7.2.686 [facility] [phone] [address] 2020-06-11 2020-06-11 Emergency [facility] 1.2.259.277 [id number] Univers 21:45:46 22:38:00 Dhruv Velazco 350.1.13.10 i ty of [place] 4.2.7.2.686 [facility] [id number] [address] 2020-04-07 2020-04-07 Outpatient R NICOLE [facility] [id number] Univers 13:30:00 13:30:00 ELO porter [facility] 2020-04-07 2020-04-07 [facility] 1.2.840.114 [id number] Univers 07:52:01 08:22:01 ne Visit Elo Velazco 350.1.13.10 ity of [place].2.[place] [phone] Ga dical nal 044 [facility] 2020-04-04 2020-04-04 Emergency E TON MHMADAI MHBL 7504 MHBL 16:52:00 19:36:00 DAVID 2020-03-29 2020-03-29 Outpatient R AL [facility] [id number] Univers 09:40:00 09:40:00 CHRIS ity o f [facility] 2020-03-29 2020-03-29 [facility]ici [facility] 1.2.840.114 [id number] Univers 07:59:20 08:14:20 ne Visit Chris Grajedaton 350.1.13.10 it[place] of [place].2.[place] [phone] Ga dical nal 059 [facility] 2020-03-22 2020-03-22 Emergency Shun Benedict [facility] 1.2.840 .114 [id number] Univers 02:10:55 13:40:00 Sanjay Lindton 350.1.13.10 ity of [place] 4.2.7.2.686 [place] [id number] [facility] [address] 2020-03-22 2020-03-22 Outpatient X DIOGOFORMERLY [facility] [id number] Univers 02:10:55 13:40:00 SANJAY tucker of [facility] 2019-08-07 2019-08-07 Emergency E MHCY MHCY [...] code = 104) Surgical Pathology Report Case: [id number] Authorizing Provider: Fernando Pandya MD Collected: 04/21/2023 10:34 AM Ordering Location: [address] Received: 04/22/2023 08:42 AM Service Pathologist: Quyen Aguiar MD Specimens: A) - Omentum B) - Soft Tissue, Other, bladder injury C) - Foreign Body, foreign body for ID DIAGNOSIS (test code = 3220) t8srtMXsRMGqr1dmLIFlfSDdKzMqFxTxWvHwFu p uoFZxHPyaneKdAOxoyWbrCVOfGQCqLI7cvEwryR e5dKtdLLQwciC5pWPdPXupx3joSWN2r8ujrdvzW FWnEXtmKz5vaAAyuRreRaKuIIUqXBj5fG43XIXe zU7wkUXpMCe2DGWmhVVhjlEsUqNnEILvyKBdlMX 4CANoBL9bhfjsWDieQOtkKAQjicB2XZOhuOQiZ7 HzTYOlDD6jmmyyIEU0XIsyVYCoBKX7VxScWNEkz 6Zlffv0XaIahOHfBCinxXHemmjpuoRmHEYwGN4K TG5USL0mVPQNI4NHTJymcAXoNLFbCuGuGykURn5 EVZeLH8MOEGFTG1XTSRKHVCBYLPXHSYVPPZEIFB UYPQHXMstGNUiJUkqEIY3GFLrULnXJGoSsJgiHW qaJRUDvwjpkOOYxGr2dWCKNOxQVAEFQEAWMCRCP PPYVK6ENFNelD5dEHHURS5DyB2ZBH3fWWDGGJEF JRPRFS6dRFnqyxBFoZERnWnJnIVFIAzBGIVHYFS HTKUPMSKWTC9JBYCXMNBINEKBMZLPYSTYXRZNQR BEKCveKTJaAAbiVVH9LTZeBCoulFJORT5IYCQUF VUnhjOBkSHRsCfQnOltDWqkUNBJNNYZCT8YSAZD ZVGEQW6PVR2iqAPXtUWVoTUQnEMRvMPMwMH8ZCe 7IHSVJFLWYTF0BP68PMLFPFUWMNJFAFCFIZCXRL BPHI5WKYMsHFExaK2oSNqmST2mhPORutKKcSOHh DXJDLC6JUxjeGyiPWQTMLvokBr7QGUyIWeZOP0U SWSQRDP6HFdEKHFPmqqlvpGxgQYFeEf6BIRaQQk ZAM4GJIDePR9UZEOkqKCBRQyHFDcbJHNUvNQdCU ZAXHLJFGSCZVu9SGxCKLXJQRybWVRfMAvpuiADv pVquawZaPWcng4JuJScxEPTqBM2unWbwKKEoBG8 sCDWaQ7bbhS0wlqy0RoYeACHxDfW0UWFjigH1Ae k5PEQxWDgcv7bvh6AqZEEuOWg3oHccDuMcJINcs 3infoFzVnQaDBEeOGSfMKHaqALiV176t9lme6rx lnSrwXQ3TEGlBDU5UYtqgrNxoyF8DVpwtNDgIbA 6IFxyyzFlOCpctjKjjqXbAip3BWJcV240QUD4jD wwt6gdUMW3GDTmBJApTtSvXv2paQPdJ158IPQwM MMXPWHxgCs3ZVTcbnFcycQzrXZTx325F251i9ot DXJoasEptLqIwaeva0fvQ908PBUphSXdurWfVfI oSQZnoJQjtAQ9KIKiFA6ypeweEYhpRDivERFelm S1QNQqbLNkB5ZzJFIyYA7lohpwWZI9YCtnVIAsK TM1UxTqPBJve9Pjvse8XgAwol3uod38TKA1a3Bi uGknYQP2QSH6FyVvQg1wfZKdMFGvJC9aVqWouRT xVYDrqx77jUjyXZhwPWW0QINhuwSjx5Mda8pgRe AzykZeB8yxD3VgXLQpTIUvIDUnGzHcahQuj9Nis 1RnyVJzwZg6d6suZAAkZPPymKoba0ymOFU5IJSu lCJiH3dyhZ1bJINsLM0koxydk8dmVGcsODqfIMA ppGO5kwT6LKCnnVHoM7GbfA0cCAGkBCowYZMvfk s5ZbSfYg4ahKEuySdfNYcvSrzwUVykNWJoghLim nRccGduZGVjXHBsYWluXHBsYWluXGYwXGZzMjRc cWxcbGFuZzEwMzNcaGljaFxmMVxkYmNoXGYxXGx dX6drFtMcBhNuWqc5PGMdtQCvUMQzYhn7WJFhrY HcGCFXoDxjiR0fTEBxbKurqB2ogSY4YBFqywPqj IWEeB6mYHNCgH7oSoH8TICyAps0HPM4OxLqoRZm fX0= CPT Code(s) (test code = 3357) q4cnkIHwGRCyuRPwRECkXUrocaDrNFGveXTg Z3B buguwVYwpMS7mYY1cmVhokLMfbXXdJTMlLtYnd9 met912aRYgn2lfOHRTpamcrVy0tPaaE47lk7A7S quwD84zeAAgSGL6BTWrYTCnyHMrYTFqLSR8DZYa pZPhV3ryGFRrXC2jmzphWJwhCZibXFCizOJ9TRS qgMOeD5NmQKWmDNujPIYzxpw3AbCgXx4duSCseL ngNVlqXRFrBGWbJXliVVJcDiJzRV9nKVyiLCSvK YUyxIIvPAQgABn2RxY1CXvfBAXqiyWKKjA1KGZh MCBYMVxwYXJ9 CLINICAL HISTORY (test code = 3359) q8bbfGBuCJJclZTbUPHaPArppeHhQBM deLSkQ2U pxumxMDqlHI6eBI5jgQybwMHdjSFzNWZnHoUrj9 cqx234cPLwe4giDWECukpvfRl8fJyeD26wo1S1Q htcS2taJKAiKSlzNSHkXEbifAMtBOi9EPZgsVTj igReWoHdKNTegHIizMC8PHFgQW5qjhhxNYfeEHv mZLDmszN1JGGmxOMcP5SdVNKmRF2laessAUY1CH pzUMBzIVL0UpGvFQXrc3Bwusl5MaTomPPnDAwgu MScwPljjQ5kGlXvBEeuZuInIy7mUOovttStj9I7 IGluIGJsYWRkZXJccGFyfQ== GROSS DESCRIPTION (test code = b6hmbXYxMHKzjNByCDFpVLqhfqDzAFFklFJt Z3B [id number]) wlgrrMQofAC3sFK7lwHtfgJQffITfFEMjXpOvu3 cll476tCTud8zpTEEMkqizbEb3jZfiC82db6O5N tpmR25dbGDiZSY3KCTtDJJzoHLkBKYqOWT1BKAd lIZuQ4fvOCBwEU3xbounGRrhWDaqAYJkjSD4EKB sfMPxL7IfXYFoMClpWXBriwe8YhRjUh8gxGMlmT auMOflTwzguLhlr1LtwKUhFPlyFKClZUEeESewV GDuJ4UCNWPcRSKaNLtwSSUqDSCYXWAjKNf5FIu0 ADCZOHWjIAAoSDv9UvDjNTNiUFINQEUdRbHtSRD pEYlpTZvruYVvYSJbTWFuERAnUQerknR0u7oiLO HjkIOlOCR7YHxlzSArJWXkKUPwYXlbNgPZXvUuV sIyZTDeQBY2OxIpSSz1EWcsI0ACSGJrMRY9Uufj MLH4MlD7CTm1DMYQXm5xTfV4PtU6VrQyTBH9PPI 2UKsxpBVfPFczf1NpNaQdHVYxFEcpumR4CFSadw SdvKrwjR9lTtWeMyYNIfAPnTRtgJXkIMOetyrcL WQgEAEqRhChTHZrY3ovRkLrUNJdBcGxXTZyV0bn TNUpQVJlAHnlDZSuIsAoOnBwLMs8CHRekW0xVk0 diKDpcX6byFMjTZrzAYJ6rQElAYSvHCTlNNKuMB 64Z3OmlsOsWNpkYOGbOHJzkM9eOA73bQLmlzOwu rGeTc0uOU01wR7rLQvrLNGxPn31NNnoRP49HCwv EC74SDHaRAHpsyGmk22ld9FusVKaRUlcnIhtsez nVmwmbe3rAMG7aBLmrUOnyLAvIBjwaDjdZERxgP Fxw4YxUM9kiR67DP0bFJTtlITaLP41JYJgVmDhl VBwsWugioTmCDd1NHY4DZ5cYZItB2Ght71offil xmF8BSFqztNlIQGsrw28PZjqb8vrgM4rx8gkrbK ubKGzYOSePoAkAeS5aQjiY3K0GYG3clUqT2EkDE ELnnLklCHtzdV4VKBkIPRhe40bQQJrBTQsKIBsf GlmaWVkLiAgVGhlIHNwZWNpbWVuIGlzIGVudGly WBe8OPE0Im8vjNRzABPaokARFC05HIZasXVlINK 6BK9owCcuIGW0OYhwCELeD8RtF5KnSQusPFU4OH QgYeNpMBMvYS1WKbOhVXMcNJF7GqfyJfT2LCl8A ONACeIvFtMnQiAzEWAwYbOkNNk4UNb0FAvGXxT9 Fgh5FdP6ShSqBFR8UVKqDMv6TDMgZMrpkgGsCSz hTlfjDKriP84tkZEzTGyhNcXnYRekmPpwMMMhSP V3ONAjLiYmBu0wE62gaAPCsOTdwOOlJQ70vGKcC SCvyeraLWOuJLAqBcVoUCDnM3tbZqNtXVOjMOgc WYEbWxTsYgAdSSf4VLWjhO2bNg2vmLScyZ3vcGJ iFHaqGMH7eEAbQSUnAQZoGUGvJV67J8CczqGzRX ulLSGzAUOzoT7vDQ70wBMpzpTyszJxZoDhBZBmZ RQejO1duVS0JtVvpwNqJfE6kc5rbHQfaISrGHNq NXmjZD37tuNzGnSkbYIfpPQxpBripQFra0YtgUE ovHAsYladJQQytcDsrCYsi6JrdKhilXZeRR2jHB Jppd0rTYTwHV12YlXsC35fxH0mE4BaAZXjn3QzT KxxMU4dpK1qUuTcTRzjMMOlCYwuSA32kmLkgpQe DZnwAdRnDL65rOKtzWxetU5pOJYwVig2OJwhFja dC7iiUJ1lFSaaYGPyYbZcX3GtmOabummoGiLsXC CjIPmtURYckWAsFKVwkrwjBMZgK2BsfMfyfDRvq 6PjvNNcjPSeQWeldQUia8uaslUruVTrICXaQfZp lEVgM3R1XAH3lcXiL4UuNJZVvMLro7HkV9yeNR9 pvVGpTZ74jGIrdEldd3ZamEp8mKXkMVZjKRDxpG ufu1Q6XMEmfixvCEJvLIPqaaRNDGK0vY5fCNJiG GAraEDzOOVeMuXvCJBbLTdrZT94AJQvVJUdMVvq nXJzZQQ4cQ4wQIBveUKpKMXwYQL8FvLaCZUcEYl kHK31LSYsOBTdVUpefSMnRTR6tG9mPCJywGWfZX HqOoZuAPKwE3lcGCEsBZO0KtQgZWQnUXhzIE15d 4wnfJpvt1FchBViJY8xbVGwg0ucXEVdzIRtXOP3 IFxcaWQgNTEwMDIgXFxkYiBPVlIgIiAxMDExODI 4LbAyCKa0CAbmU8DDNQHcJVJ7VimkAocuMeS1SC b6PEJEEm2lDmE7LvT4BbP1XAG8PDS3TSwvwEVeC Pdbb5AlSeZwBJMgIEhppbF0MNEyqoQmk5RfGYNq ARAsU1toXfEvDXrsrjDwKRAeIDTpmwKiF24kJj1 ikXtqUTMisKFbVAtbVwIgTTUgzCLGd7CkFJkcyG UzhvokfaZzINCuO5KryuXiMLVuKVAyIOxjOaJuA ODce9z7qPJ7bBDxaFG3uYEyuTjnDK3xdULzYCPa U9Bsu7bkdyIczU1kVYLqDY0fKGXkw3GmvNheOBW pMPpcFJwiXBHaLNRwHcMauFBtewWlRQ7osRxxBp wcGQ6rTCKeOCUejOGwpkHroPGtMBFqgjGscGSnc JPuEMT6hUoiPUMpI1GdLEZhilQbR33bPo4ceHEq v70soCI5SZ06HPmjqOpaaUJgV1ZuNKM5yBB5VJB it0FzGPjyPCRaKNWhg2bof7adhhxcuD1dL5TrbA Ysf222YRWenueuKDDmINTmmuEJY4DJRamIVaiiv HFgSLgxo6dqzEKcjQdkHSUkNeDPZS6CHLMjogpu UMIbALKbfw9mdqZjpW50y2ifKESnIRtpFCAcr3R cNiDrEk6pd7LrrMlbyzDiVZSzKNU6Ni2fuBCsPI 6iTRTjkHDvyMLsmFXoaoGxd3TyJ4Qlt0SzJTnnx GfnFQHyb95dy71khI7uyOAvGOZnwdnsXQHjAKWa qLCRk0PkMISBqSssfeAIcck4ULiaFXYdZIGDRIY CGDGxVONTNZa9VFQeiFJpUWM4CB5frSloDVZyR6 DvU2IvooP9GCZndr4= MICROSCOPIC DESCRIPTION (test code = [id number] GqnQFbG5R 3371) zvdbzOJgxAK5kFD9kjNaliAOvfHNsQWKbRgYxz3 nuo846bSGru8tsROEAjheyxRj9uWehV28db1T2D mduH71mkEUaUXY8JFLbANFggHHbLPAwQJB8OZPd tJEsR8klTPQePJ5dpdzzOEfvRDkmDDCitAJ2MTK zrWGqB4TuQPNhOTrfAAGoajn7WpRvGu1iwMMtnD idRMlqINOaCPAlQZahVAPmAeFjIF1LQnUKHRRwy 5UhRCRzJEwfSKHqxFFaLDFjDQ4urCJhlPDcjFZt YmxlLlxwYXJ9 Gross assessment was performed at (test [facility] enter, code = 2777) Department of Pathology, [address] [place] [id number], Technical component was performed at [facility] er, (test code = 2778) Department of Pathology, [address] [place] [id number], Professional component was performed at [facility] enter, (test code = 2779) Department of Pathology, [address] [place] [id number], [facility] [id number] 09:04:09 Test Item Value Reference Range Interpretation Comments Case Report (test code Surgical Pathology = 104) Report Case: [id number] Authorizing Provider: Fernando Pandya MD Collected: 04/21/2023 10:34 AM Ordering Location: [address] Received: 04/22/2023 08:42 AM Service Pathologist: Quyen Aguiar MD Specimens: A) - Omentum B) - Soft Tissue, Other, bladder injury C) - Foreign Body, foreign body for ID DIAGNOSIS (test code = [id number] 3220) FuZzEwMzNcZnRuYmpcdWMx IHtccnRmMVxlcGljMTAyMD VpSU2ufOoskAs1eLepICCk tbO2cURhKZrgs1uxTLJ8q9 aqaaucGKRfXGtoBp2zoYPs sIqxAyLbOOJeOEw6bB00ZC MibN8jxHHaCSe4WQBfgFIo adWhJiBlJQLhmFOcpYX4DD SgNQ5vsnxgICzgMXnoKLTm blH1FJKfcAUxN7FzIZHuXU 3ozxvrXXO7FVeyGYUaSZS8 CnDnGAPpo2Ytqmx3GfGcpG FyZFxwbGFpblxmczIwIEEu IO0UCA3EOQ5nYBSFU4FDNP elsLEhCGUqNsBkSbbTXz8T UBnNX0XDJECIG1GAAJUKHZ RIIEFDVVRFIEFORCBDSFJP HalKIRcNItvPKN9BAJhKQd BBTkQgRklCUklOXHBhclxw MHVoUo4mSJBAMrEEAOJHQQ GPRLMRYXFOW1ETAYlnP5cS WHLSS6XdW4KCN3wCDEWOAF ZZOPEPH2aJKmtnzVYfTEXn YiAtVVJJTkFSWSBCTEFERE ASXSEDV7WBXMMGQTFPCOED VVRFIEFORCBDSFJPTklDIE lHUnhQEE8NZLuXYapaVPFZ E6KDRMGUUMgwvABzKFSvQw KwKqhJVhiXKKFDQHRVD4KI WETLLKZPE2XIS9evNRSiHR GgAHSfYDWlIVXyVE4LPx9P COFAGKGMNA3SZ57HTLKICG UYLBBGUYEMKHMZUZMWB6TL QXhISWvxF5pHWqdOQ8iuMM FctXRuTLGfHXHLAE8CGeyt MxvVHXJDIalbIy7RAXtJDa VDP8GHSRTCRK6YEcPQXPEu baqheHlrCPQrWj5IIJiNSb YUJ5ZXGWnKX1TRKIglWJRG TlRJRklFRCAoUExFQVNFIF TXPCZDTk0RSiZKLWPVDdbO VElPTilccGFyfXtccnRmMV tei5KyGZntKZFsJG0lpYxz FKHlHN2wLXNjM5kroQ8iha a2OsXxWZDrKvI8CRZygiT9 Sps6NDBaSErzr0vol9YcJI NaANf3kOmxArGxPJTfj8zk cyBcZmNoYXJzZXQwIEFyaW ZdI757i3pdd6wovjDxzWT8 KALhVCN0CJsdxbTnahU1KX ceqEHlUkT3KQvwzsDdSTtz ttNmznIaIcs1FXCsN639CY N2fBdzx7mtABV3SCZvJGVi WhDeGe7mcNCkU383QYWpLT CHFHLhqHi1CJZtrlFifwSa jZIYl727A416s7faZVMtvf NewWpSvbmkw1xfR376ZRGz cGVydzEyMjQwXHBhcGVyaD S9YPSnYS7wujviAWbyVZbm LCQzdfM8TMKyuKJjX5ShSO NyVF2uakoeIKS3WPnaPEOg NHZ2SoLfCXLdm3Nawek4Lq Mnht0tzm03CJZ2x5QkxTiq PNY3RBA1DyXlZm0ueNTkEN NgEI8tZyIhvSJwFUHjot74 vQqcBNbiEDQ1BWEzstCrd4 Aou3yxNiYimdFkA2suX8Dx ZHJoZWFkXHBnYnJkcmZvb3 Rwu7OowMEkgGl0h9lmOOTy QPGppVpmo6fzYAJ3IXBriU TwB5welZ9pKPTfXF6pyswi b6uaULrpQSiaCDOeuOB7wy C1RJFeaFFtY2MouJ9hQQUw AEmvTBWclbr7OfSnQm2puX VyeTcyMFxzYmtwYWdlXHBn bmNvbnRccGduZGVjXHBsYW luXHBsYWluXGYwXGZzMjRc cWxcbGFuZzEwMzNcaGljaF vaEGhfQeGmPUMySHjwQ4za PxSqWiTqIkt1EJZdeJVzOH VcUcj2QVFvjPNeNFNZgMwy jD2lXPFimBeqeS0shGN8VI LlpxArcAEIaH6pASYSfL1b HrL6GMWzOtw3ROJ7AxImnI FyfX0= CPT Code(s) (test code x8dmuCQnDOEzhSFcFZLkOA = 3357) rgsjIdLHNczOPxO2Evtfaq DSukOH1rCC7xlZbknQLnjV FnEOLtNeTtc1dmc631pMUe u6cxQIGWlhifnFo9gZguE4 3ub4N9YrgrZ37ypFAfIIK0 IOWzFKOizEGeBAMqBAK6FI DghHGpH9cxMFIqUT3rjhho QCorCCugCWMibBB7VWJicC HsU8XlSIWtBYtcFEFcvjh3 BuFhHf3wrDOlvEmoIUnfHV KbFWUaHCacOVRtZzEwKJ1y ODgzMDQgWDFccGFyIEIuID i2KzR4EUcqORJtwsYICeS3 ODMwMCBYMVxwYXJ9 CLINICAL HISTORY (test q3jprAGbRDGilYJuEYMsCH code = 3356) cdkfVaPPEabJChX6Bskvpx RBkoOI2kOF7neIfdhPPhpO VoQIVyPbRda2pqz948wAGj c1suNEGUfdldwUz9rIgpQ6 4wu4W0IcoxX3pcWGRlIAec SOMgUHyeuYQwBIu3MGHksV VydzEyMjQwXHBhcGVyaDE1 JKUcZX3dykglCSkhGAxkRO BiejJ0KTCgvXRtH6WkGMHk SN0asdbfPKB5CHwmKQAmOE X7IqTkQTOme2Ujbtm1RcVu mUAxOFjbbKCfdQmeuO2sGp EpJLptShWkCd0iKEhwflFx h0S5TKyaEWXhZMVkOXKqvO FyfQ== GROSS DESCRIPTION (test h1frwNMjTXWotOIaEOHxAG code = [id number]) myoxRmHUGuvBWgO8Bmxpzh DJhbOB9sXO1pmNdzoCWauZ HwPYPrYaXee4yme138eGVm l6aqTVOCyjfwcKr0qSyqU2 6wb2W6BrplC58qpWUoEVX5 MGPgFWOfnDZpYQDjDDO0HC XtsDZsU4drAMYsNA4xvufm ABjbHEzyAJMzpZM7BDHhrU YdP7SfXROdYBqiEWSmkrh7 WnFhWp3faXEqsHmnCUebOp rjwNqvz7CyeDXfIEyyRQZl XPScELdaUKIsC2RSNIHjWX AxMTgyODIiIFJFUSAxNTk2 PJg9MSEKXALdCUHjWNu1Jg UyMSIgTFJSIDEyMzAwMDAw MDkgXFxuaCBcXHQgMSBcXG BsREgnfvU8h9sfTXPngHKc IJX3CJsbcHJoUCIbYFLiVT xkYiBPVlIgIiAxMDExODI4 QyPaUHq4DTjuR3VZTGAtHO D0QtgsFFE9YxX5MXi8YHPM Uu8tJzB1NbV7JvJqCLK7ZM O7WGibcTLuYPelf9PqTbDw BNCiEDzyprZ5DDXducEpqQ gknI0hFxLaIkJYUuSRiAOn dHVtXHBhclxwYXJkXHNiMz KwXBMbT1uwOgCaNKTbAeRb JABaX2roDQXmHFDmMMzgDI FxAdCaBbPtNDx1RTKeeR0d Fe2gtOFccG6ooOJgLYbpCQ O1cBTjDEIpDFEbAWKcDY47 H4FzddKbJVybLCQzRYOlsY 9nDL26sXUvedNiqlYwNn6m MH37oZ3fRBcbTLQfMw18PV ezQN73AMnyUM09DWPqBWQd swNfh54kk7YgjLDdRWdkzX swuwbmGsauni8vASR2jAEs bWVudHVtIHdpdGggYSBzcG Yid3ShMM3qpL37FH6cWIZy gYGxEL75CQPlFnZirPTvdL eyvoDtCEk9NPH8IL9hYYSk R8Yih58hxdrwxdT7OTNvty KsYYJjjs19IZkbu2kggS5w x1dpmwDpgHPhBRYuWhMdAj W7mRdzR7S0QYZ3tyZdV2Ce ATKFsmBhfGXpoxZ3HWIsPL Jvo94zAGXsYCBxOAXxzAno aWVkLiAgVGhlIHNwZWNpbW HgLImsDELxaBarRIu3WPW1 Me3deAIdUZNofxATQK96JX WzeNCyKRE6QU1xrLkcEAA4 CAzwYZYgE2PjB8KhGBxbMA B8QUNpBnFgHWIqLQ5EFmYs YBYpZCA2HgdfUcR2LXd0IC BPVlMgIiAgMzQzOTMxNjQi KNp0FVv2ABxVCqQ5Gio9Uo G8FcBoCXA0INDnQQg0JMIo XFxzcyAzIFxcZmwgXFxuY3 1ccGFyZFxzYjEwNVxlcGlj BJFeVFF2XUKxJdFpIk3vX1 4nqORIoRTaeCXpXW20dHPp XHBhclxwYXJkXHNiMzBcZX OoF9acOwKmTWDzMJcaZRHk EwLvVfGsMWs8RXStpI7gZv 4uuTGkdT1xuCXfLLyjTGP4 sMUxOVSnZGLhGZPfDT29I5 VkmvMyCFnrJOVjEMSezX6v JC67eJSnexUwmqGmDjFqVF UhZKMslA0ymQJ1UkNhxfXe IaN9af3mmLOgqZEbUDDlGV csXM56jzDfRqFfwIOlwDFe kUegqCIlr3KcbPPfkCWuGz omZTYuqmOqoOZdl4WdaBbd mAAiRI4ySFEbii0aQLYvUT 48BoAcV21sjP1vB5PyIJYm p0ZxUEptAP7ctD5gJoReJY qaRMTjPLmiXR41omOsruHa AXeqHeAvIS15kXDtmJyomF 9eEUMkJgq6PIziSxqgS5ea KK7uVEocXMQxVjIrO3UgzG lvbmluZyByZXZlYWxzIGEg hTFwEMSizvzxRBAqY5WokP sswNMzb2NzfQOawAQmZTpb kTPhg9nkofZexDOgCBBzMm ErrLIeN5J5QUG6puHiP3Jr EWXEzQCrw7OrQ2gyQA5hlH DvXV98vOIulNzqz6AojFj0 uALdRUSeWZXohKdna5X2PA BhclxwYXJkXHBhciBTZWN0 kU0iQSYrFUCmnJSyFZAgQn GvKIJaRBpuVH64DIXdUSIk WVgkaGFgPXK4lA7uJEKzwV BnUODwNDL3MpVuEYQzHZst II89OWAeULKwFLzihKUkPU B6rJ3uQPKqeVCwSMIfGjHd BADsJ1wrIFVvKWK4YdXaLT UzNZpoVN08u6dizVqwx7Ea aHTbXZ4zvNQwz6jlJNEbaX OcNRH8NRwraCIfTZEvWFWn XFxkYiBPVlIgIiAxMDExOD H0HyLvRVr7VJmeR4DUQENw HVR6GrfmFkzvIeD3HSc0XB QHNs6cIjD3OiU3QpD4UDC0 VDM0ADgdcAXhPDrks6KePm TfKKOaQTajotV9PAQwngAr o4GlPJVuMPBgK3zmVeMbEQ slmkSvSPFxGBLidrZkH28t Aq6afZdoWBNghPMlESqsOv LsJBTdlSRPa0YeDAxgnGWv glihkkBcYMBeW5KjjhIgCN FfDQHvGVvzVnQzNLOlo4i1 eML2pAJkrBV2fDVwhHyiQY 8ysLHhUQFiN0Meh7nacvZi lC6yHTVsJT3qQDYjk0DuaI duIGJvZHkiIGlzIGEgMTIu IgDcxOMsruDlYG2auVlbYk irGZ8mRQQtNUZvhMGrniIw aWFtZXRlciBwdXJwbGUsIG J7bRgaHCFtQ8ChDHYqojPy M26yXh3xbUTel80blFA4SF 52XKphtMqvmBApS1PhGVW3 wFA1CYHzx2TsJJgxWWEsGY Vpp3gik4xpkwfbfO7jK9Yl iBOdb771EJKydetoJYXrIW PvuwBIL4RASxvCEubsgCHc UKnur2wztGEndPiyYBQpKh ZAIW3IAIGscwcbWBBdWIKq eh5vajMxnS70q3jhVGRdXZ dfDMFvl2JpXiCqHy4jm8Rm vEiuiuHeMECeVFO3Bn9mqB NzFY3uMETgmBEwtNKuxQTz ypHqg7UzY7Zul5PjSDsuxP lvAIHqw78hn60fsA0zjAGq XHBhclxzYTMwXGVwaWNYc2 AlYACAqVfsrwISykj4FIou ZXMsIFBBLCBIVCAoQVNDUC h7JKFhkNOjYCH9WY2huPkr RWLfC9NeI9FtpmL0NFXgwm 0= MICROSCOPIC DESCRIPTION v1iabJYdDFWzvBQuVPUkYY (test code = 3371) rhjbPhNMAjfJIhI5Shlpvq VXyiVD7yJM5xdAsvmRZbkS EsOHRrYhVlp8byt590vWQs j0yzZIGFyxxzaKe4pTeuH8 8em7B6VwxiN23kxYLkUNP1 JUFfIFKbdMHiZGKhAXL1PQ CkwNGsZ4zhRCQfJA4owxqk QPrlVWngGZUziNI5YWKkbG GuS0JdJKMqXQyfKTKpcrf1 OtHhEx8enZMrkQgtWYywON GfFACrWXwbTINfUmXbUI5X MaJOUDImm7QsJVMyWKwoOA YxiAIiTRAkTY4bpRBnsMOe aWNhYmxlLlxwYXJ9 Gross assessment was [facility] performed at (test code [facility], = 5415) Department of Pathology, [address] [place] [id number], Technical component was [facility] performed at ([facility], = 2778) Department of Pathology, [address] [place] [address] 360[address], Professional component [facility] was performed at ([facility], code = 2779) Department of Pathology, [address] [place] [address], [facility] [id number] 09:04:09 Test Item Value Reference Range Interpretation Comments Case Report (test code Surgical Pathology = 104) Report Case: [id number] Authorizing Provider: Fernando Pandya MD Collected: 04/21/2023 10:34 AM Ordering Location: [address] Received: 04/22/2023 08:42 AM Service Pathologist: Quyen Aguiar MD Specimens: A) - Omentum B) - Soft Tissue, Other, bladder injury C) - Foreign Body, foreign body for ID DIAGNOSIS (test code = [id number] 3220) FuZzEwMzNcZnRuYmpcdWMx IHtccnRmMVxlcGljMTAyMD CcXG4glYletOf8oKjeXFLz yxF1xLGpKKnjl0tlCJU0m5 wwvgehXGTpUKylSb5ioAQr kDoxWnGkXBLxRNa6aO72VV EltK8jhPOlGPq7SWSltMDc daXyZoBgJLRlgVVgvRN1SY RkEY2kzpbzPPlbMMheHMJo vkB3RWWefLUsP8SwTJGqVH 4prkjyTTF1KZsqHVTwGGQ6 DnCoVSVir8Iarcl6FdBsoK FyZFxwbGFpblxmczIwIEEu QQ0XKO9UNK2qXKXJF2PECB sqlWSsXNKmRiRlOvfETl3P ALqIE6SVAKNUX7IWZEWVBD RIIEFDVVRFIEFORCBDSFJP ZxdGQGbQUcdJQC3SVNbTFd BBTkQgRklCUklOXHBhclxw BAFuYz1oIBQPDjMKWHZOEC MKMAHCEZRRH8PMEYqwF0mO DPOQA8SkO5YOS3fAXWIGVX QDZYIMM1dPUosnlCCtSPYu YiAtVVJJTkFSWSBCTEFERE IMZGZDA8VIQZHLTLULFIEM VVRFIEFORCBDSFJPTklDIE sPRdnMNK6CETpHSksmUOUE Z0TNXGVXMLzfbYDoHINxXv RsRufHZzcGZQOSGANEF1UE RRGRCKYBH8FOG5zcQVSgXA XaKYBlJWKyWMVoQQ7SQo8J XVIGKSZUTF9YJ07QSUTZDR AXNCUYQHTJYFBDHCPAV8XJ YOfFFFpjA9lMYobJF6vgDV XltLSrOKZhKYNAFD4UHyxr MueGKUWDLokwTq1ZUUrVVj UOO3QFTGPIEX3MEyLILPEs etwqyAgcPAUmVs1QZLyZDy OUZ6HGXVdWZ1MWELbqLRNY TlRJRklFRCAoUExFQVNFIF SWWAYPRp8IZkFDZBZFAmaG VElPTilccGFyfXtccnRmMV oqo6ZrZTbhDFYcBK4mxYum BAMaBJ4kBXRqM6nwnK7hyr b4EjArBBToIdU5OTTbebN2 Mmr5JVQtSNrst4yrm5JyXG LiJQc5oAbvBnXbMBZob7bg cyBcZmNoYXJzZXQwIEFyaW WnV627s2wge9lxvfPfaYS2 XFSzDCT8IMylibWoskH9QT stoEErTdP4XCczneFjATav xyKtqmEgMnb9WZNsV151VS X9sDvuq9sxQCN3YEPlOFDc WlLzKv0ysHVdJ661QBTfKC DGWLGyzRv9ZFZwstIthqXe eACMf157L448r0aiWMYfbc MxtFnKcjxvu2plF432BVOr cGVydzEyMjQwXHBhcGVyaD O3QSNzLN9kapicVUkqIAai XXFskgX4DMPobBYeZ3TuUB MwRN2nxvirIPU5YPomRKEs HLS1WvHeEMAzr5Sgiqh9Nr Ktue3oyd72TLO7x2WrrIzr ZBE5GXT2InOdYu2ytCPrLD VbTV8yDuFdrLXuWTZimq82 iRryUDbyUNP0MMJnvhSky8 Tkk9liFyTblvRnA6miY2Ai ZHJoZWFkXHBnYnJkcmZvb3 Wkv1DqiPUgtRr5s6vpHOSf IGKwuKmhf8ltWZW3YRIalT HcF2sydL4kNUWhIM4jcpff d6maXXjbVYkyAMCqqDX3zh B9QJXmsGRqQ7NjdX9yLEJp BYamQKIznpm3RxTfPm1ktJ VyeTcyMFxzYmtwYWdlXHBn bmNvbnRccGduZGVjXHBsYW luXHBsYWluXGYwXGZzMjRc cWxcbGFuZzEwMzNcaGljaF plHMxnHhQuTKQfAJigT8ek VmHcHnOnMni4GVRdpGBiHL JwAqv4LKJzcYSmPYDDzDth aT5zWPOtqUbafA9lxOE0NW CovvCghZOUiB9sSKHMqW2d ZfQ9CVKxSob9PDX2RjUrjZ FyfX0= CPT Code(s) (test code u5odxLExVQTnfWAuXXKlSS = 3357) hqtvUfIGXagDJoV8Ydzgzj UIvsEM3pCQ4nvHhiaMEdlL GsOPKgIcKbu5bmo332nRRj y4lkSMEZaxnleUh7ePnsF6 2fy5C0DdejP04nlZJpDYK1 ELCdSMZcnBZxPCRgBDQ2AD AcaYLhT1jtTNFbYT5ovryv UPucMWaxCEFwxDX3KEFfuS OjM2GuXZFkJYpwSFTczts7 TnPiLg2wsAJhgMcaTScbME LkPFHlMEjkKOOaAhUnWA0w ODgzMDQgWDFccGFyIEIuID s5VmG4BUysUAJmqbZFYvB6 ODMwMCBYMVxwYXJ9 CLINICAL HISTORY (test x3jfeTPqALBlaKEhNRTqNS code = 3356) djxfDkXFGdpKArF0Npmwmr ULzpAC8kAR7ymHmqyEJhqC SfBDQzPoDnp5wqs001aLAh u6zhHUDLgsogtLv0kLjkV8 1tt3L3FixqE3yuIYKyNWbg IUAwHOnjbMPpNBy4LYHkcD VydzEyMjQwXHBhcGVyaDE1 LAKqQC4ziyyxHAxlGRxtTD LetjJ5LKKfoZNlJ9VxRYSp FW6ncbvyGJV1WJtyWUSfXV G3DcMrKPDnh1Axvef8EoHx qYRbYVoagBJnnSqkkD5sIa OfKUxlLiNkUm7fRQyzxlVg t2G9WAkxTJQuOWZbGMYqbO FyfQ== GROSS DESCRIPTION (test h6ikdNFiHQGczODvPPIxZC code = [id number]) zvueDyOIMrtFZmZ0Xmezek ZFycTG6qSE7sbSudrIOjmS IwZYVjLtAfp4pqz088lUVj b8msYPENfrvnvGu5fZfwO1 6yw7Y9PofkG97deNGqCAE1 WLPxTGQukKWyZRDyNYK1YY CwnFFrG8flRYYgKA7sopml SIfvMAemTCKgdYT7TAMxdD CcM0RjAQEiTOieQDZvcuq9 PrHcOg3xnEZreLpqEFnvIx rfpYncn0WwjBFbSCykBXZj WRLoCEdhBMReZ5VQATLkNG AxMTgyODIiIFJFUSAxNTk2 JDy9KYWKVXHfZFHpRCo0Fy UyMSIgTFJSIDEyMzAwMDAw MDkgXFxuaCBcXHQgMSBcXG SjMIwjzjD2w5hfAVQyxXHg ZBH8EIsgsOYsTECiLHNlMQ xkYiBPVlIgIiAxMDExODI4 CvGfSKz0LXybV1ICTMXlQH B2QjbxAJO7FlB8DQr1CZVG Rz3nYdH1SyS1RkEbMCF5AI U0QHtlzDCtFVbdc2LmHgKu PMYuBQiyisI0VFNhodOdcR yhsW5yJjOjDlOUCdBUlPCh dHVtXHBhclxwYXJkXHNiMz LzTCPuR0orBbXcHWPtPaXk UDXwD2nsCNGpZDVhMBssQY MzLtVeXsLbQNf6YYNnfK1w Xp5vlGNzsC8esEJuFMdeTZ B5yCAbASNzMVVhWECyVK38 D9QmumNpCAkwKEGeXXKfeP 6vAG75iLQesrGjyiIlBd9c RX78iH8wISisRCLkXa60HG jbBE55FCssLY38YTWpCKIf hmAxh96tw8KfnNLuTOnwiV hodylzMovjrb5rWXU6yDGb bWVudHVtIHdpdGggYSBzcG Avb8JtHF7rdI59DN8cDIAk rPXcEB22HLMvCwHvzZEnrH pxxfXuUPq9EKV1GL4uYYZf C1Knd27tugbppdT7KXBclq IrBTEaqd44PRjmk0hgiQ8l n4hjlePkyNUxJEPkMmWiPc Y6sOavB2V1IHW2eaAtG3Vr JZWMiaSokQPhugB6ZZUdYD Cfr55wJNWxKZInDMRkvCnh aWVkLiAgVGhlIHNwZWNpbW GxANmaWPOmlDiyVNr5GCP7 Kg6rwAPkVAPwkoNOIS63OW EaeDJdMHX1SR8wtMmlAXC2 URfpUVRzG4AfY3WvAGuoIN S1WGFxWjKrEFJaDI3SKgQo ASWmOTD6LijiBsQ1HFm2CI BPVlMgIiAgMzQzOTMxNjQi XFu0PCi2MYoIFmC7Hld2Xr F8AzUfMXR9QSPuONa7MBQk XFxzcyAzIFxcZmwgXFxuY3 1ccGFyZFxzYjEwNVxlcGlj TJCeIET9NJPpTcUoQf7mO1 6gpWOYzTXpwKLgZC00cIRl XHBhclxwYXJkXHNiMzBcZX GyX7ikHgBfOXAqWYjvJGLw OzIwAyKyNJk9KPKntZ6yVa 2pdILkxD2ujLNwEFhvKBL3 pUDlOYZfJKBmZJExHZ29Z7 GkqdWsZZijWITcLFFybM4h XC19gCTajeNrraTyPxHbKR YvPCJjaA0wcKT5ObLugfAk QxN0hf9nfOCbbZEwXCNmWO tvGE43cfJpTgSvtOZjnMNd yKiqsLGnp4OduSEeeXEtXb gwRNAvaxPspRCpj3LdmGhz uULpDJ4rWLXmgd8rKZKeWU 86NnRuS93puK6kM8NmOENq u9SrONhgSL6rsX8tSwHuZL vuBDNxEWdsCA00sqUztjZp VTheOqSwWZ74gGGsoPmvlI 2pOQJhFfo5LAdeVtqoJ9nc CT2dSStxSICuFgSiG9SxbL lvbmluZyByZXZlYWxzIGEg dBEqJXXdghymGMHdG0XlwR mmpHFaz2MkoCNnnKWmGZyb pJYip4ticmKqkYSnOBTqZx TdqEJyK0V3DFM9yrSuL0Qq ADYLoYZkk0ViH4mvTQ8ahN RhKT04lAUtwIamj9TmaGl0 nPRdCXNwNSQdvWhuk5D3XM BhclxwYXJkXHBhciBTZWN0 uH8mZHZpVRIycAWmUEAsWa GzACCtWMzkDL84EIGnYMZs KPtafNBdBBT5jU2mJHPotZ PaAPZlISX9FxJhVOQoXVub EN87FCCgHXXxTTmrcVJzOR I6kH8mBNAwrRCsHMBiClBu GIXmR4lgCWSjOAH0KsIsII OdHOnnJL69t9ahcMten8Nd sWYqXE4gnXKqh6eeZFXvqR DfYMD5GOyqiKEpRZHsXWTq XFxkYiBPVlIgIiAxMDExOD A3EdSoTEj9CLdcV0DDEYZu FIZ9ReqaMpzkOsS7TCo1JH KFPh5mXwZ1IqU8IdF0QPB6 DRH9TAivnSEhSZftt5TpEb ZzZAZtOOcsjrS4YSGdkuMg n8CoQXYvNJRnV1cmNaDyXY baanTtDERbAGInyiCvK86l Op5tcPrvOJAhiBDwCFkiWn LgRMUynFLSm6WuNJhonYMe hcurklWyROLjN3NtcgMrCF FpSNPrZHzxWhRkTHIwz8l5 dIX1nGHavVJ2yLWbuCocGZ 4mzMGkDCMfP2Med9bfbeJn dY9vTSKcRR0kUAPsd7NdkD duIGJvZHkiIGlzIGEgMTIu DxLwaGWxawXbOU8idEcpIj rsCJ5zYDKyACRmiXKawlYm aWFtZXRlciBwdXJwbGUsIG S7nUvyUFAiA9ZkYGHfuzWi R14vRr1dmFTmo32oeNP5QF 23SUgktWxpkWZrF1ByJUO9 nFQ7SBWcp1ZlWGxuKSQhPJ Kde2qnj7vhubvlfG9vV7Us qXCgf117QXXfdatpIGBnQG HdvoKBJ1WCOtmYJxblpMXe VOxzr4eygYHxcEahGUXxFz LVFX2SWYRgwarlVMYwNDHh yg6wrxNvgU13y6mhXXTuSF kvXCWwg2MzRgNcAr9wn0Jz oYqymoNnHXQiIQW4Lf7iaA KkNG4yMEJtjHKumBEknLDh kyCpp0TzM9Uwp8UxLXnjjE ooJPBwe47ob52xrS8vzGDh XHBhclxzYTMwXGVwaWNYc2 PyBMFGcDszwaUFpjl5WKay ZXMsIFBBLCBIVCAoQVNDUC d5WQLsoIFnARN7UL7xoJly OYLiT6BjY1PwauK3KQBjxg 0= MICROSCOPIC DESCRIPTION x0vzqGAfSCUjvXRxRLBcNU (test code = 3371) szbzRpONJgsGKyH6Zfqvin PSgqYH4kHF5jgKiiuVGxpM XbGQXeOqTfs4qfc717nXSd j0pcPGGOoectwEh1tHdwY9 0tw4P0KrnuJ09qjTBzJHO3 RPHrTUXovFOhTZToERV2FD UlbIHxN4fbVLMyRA6iuatd NBvpDItjISImqWS5GERwsX LsP9AtCRQfKSkuCJPnytg3 BlUqQr4rnNRzfLsdGEgnRS CeDLVfBQvjEDAzQsVbLQ1V IjRXSBAcj1RxYHEyWHplGU ZzeUCcPYDdDF4moXEtuYXt aWNhYmxlLlxwYXJ9 Gross assessment was [facility] performed at ([facility], = 2777) Department of Pathology, [address] [place] [address], Technical component was [facility] performed at ([facility], = 4287) Department of Pathology, [address] [place] [id number], Professional component [facility] was performed at ([facility], code = 2779) Department of Pathology, [address] [place] [address], [facility] [id number] 09:04:09 Test Item Value Reference Range Interpretation Comments Case Report (test code Surgical Pathology = 104) Report Case: [id number] Authorizing Provider: Fernando Pandya MD Collected: 04/21/2023 10:34 AM Ordering Location: [address] Received: 04/22/2023 08:42 AM Service Pathologist: Quyen Aguiar MD Specimens: A) - Omentum B) - Soft Tissue, Other, bladder injury C) - Foreign Body, foreign body for ID DIAGNOSIS (test code = [id number] 3220) FuZzEwMzNcZnRuYmpcdWMx IHtccnRmMVxlcGljMTAyMD CkKR2ktSdulUg0qTnxZVFx aeI8eAUhSIlnd6ssVVP3v8 ploxosWBAyPJlcWs9ltIAf jLkyIoClCCKgSGp6zU94TK JwsY4twXJkAAq9MJDxbYMx qbHgNnQqRYNkoAXouJZ8BS AnGU2gxvyyMDsiCLyyTXKm ykR8PHEkdYIbP5QmPBOwYR 3gcfhhRNO6IDsiULIoAEM2 EtLlCTEqy8Vzcci0DkSwxP FyZFxwbGFpblxmczIwIEEu VT2ZYT2HNG7pXBDBG6FSKC uctBIcQLHfBfRwIrqSFr6W BFiBM4MCHPYBM0ENJLLLBD RIIEFDVVRFIEFORCBDSFJP ZbaOFVjYQdmFLD9VEWpCXg BBTkQgRklCUklOXHBhclxw QSAgOp5cJMYYDoNCKWRRZA LIRCGKEVVIV6OLCNhtY0nA MHQPN3ErX2HCB8oXUGOWVQ BZWXUEN5hJMkgflKCpMWLm YiAtVVJJTkFSWSBCTEFERE LEJCGMT5SAJAWNVYWJDIXX VVRFIEFORCBDSFJPTklDIE bVPloFZS8UXKpXQrozBMWY F4IGTYQFMGobkQGsOQRgJj GsUxuWQjgDIUKEDXCBJ0TL RZMDHWGGB3SQM3fpLESwLI OcAPZmDNMcZEAkEB7BWl9N LTGWYUMTLD9FZ41TOJVLOF VOPUIZANGGCYDQUDUYD4WX BRzHPZhzX2mQJzcRE7mwRF McpWXiKRWsGWOJPG4ETpmd GbgVEOOJUudxTq2YMBbNYm DJT0SWWVRMTL6ADsFPGQWc uicltXdzUHLnMr3TVQmKVn QZZ7AVWQrUV8NKJTisUGGG TlRJRklFRCAoUExFQVNFIF OQDWOZEq7XCgONYSFDIltF VElPTilccGFyfXtccnRmMV cmu7UxWHimEEAdUJ6ryCyh PIDsJF4uAYQsM6svaA2eiu d4ZtFrPEZfQeT4QSCjojN0 Jmf6LIErDMumg9rfr6KmJX LrXLq4gVtpQmZwPDCbo0rg cyBcZmNoYXJzZXQwIEFyaW QrF782l9aij8bvrpUflST3 NNOhYCB1EYwizeZdxmR8VX iniCVpReG2LRiqbwIxSNzx drMvpnAeHxe4GRWqB290EF N3jQihq5zlNKQ1GPTcENUq OdYgDr3fhIAlJ213IGIgQX ZZDACcdNz9NJUdggLfyvNy dKUXx677N077a5arUZGunl VbpUcImeylr1knK054PEDj cGVydzEyMjQwXHBhcGVyaD B6ZDKvAT2dmeuoAJulEIii ZRUdfvM9YAQpuXRkW3QiHJ HgGR4imekjEYU6UMkkUWBm JJO9SaRcCBRpo7Qsmax4Mt Fipq2nie03XLG3y4WzcXnc GST4LFE8InQiRy3jbIGhRS FlLC0oYzWaaEGlPPWmtx16 yBzcVYvnKDR5JFVmhpIdj9 Crh6opWuBrxpEcR3aeN8Mt ZHJoZWFkXHBnYnJkcmZvb3 Wui0KkdFFgaSd9a1ygYULa ZWPvbOzlq8gpARJ3AOMdrZ EbU9mtrU1uADVqEU4dxlyb m1dvSZcyLPrsTFNvjIZ9dd L0GNNlxAPzC3XesH1oVXYw FDprPFHikbf7LpUnYj8njG VyeTcyMFxzYmtwYWdlXHBn bmNvbnRccGduZGVjXHBsYW luXHBsYWluXGYwXGZzMjRc cWxcbGFuZzEwMzNcaGljaF pfOZkoDlBlAAXfKQiqJ3qm WuLkVmGiLdq6GMYpdAYxIV YfXvr1ODWkpJRtMGCFvNjz dQ8yYXVhkFjiyF4pbFT2HV PsvwUllSSCeY0nBRLJiZ8v AjF4FOPnSke8BKB2EkWmbW FyfX0= CPT Code(s) (test code x2lypMRyAJZzzGBzYHHyPK = 3357) jikkZgSYQfnVCsY4Pndetf UQvlDT4kIL1cbAevhSVvzX FtGLXcEuUgu8woe346lLUs z1gkOUINidnxfZm9dGveQ7 4ev2J4LotvI82ifIUlLLR1 PBRsMGSypNPoXRGlPWG2YB WnhFKsO0jzHDCgEE0yntli TXtrKWduMMNjoCS4ZJUjkT GtD9QtVOQiTNtcDZTxelo7 YbPaRy5dtTKmwBwhUGzrWN HwDWJsJDcwUCDbHjRaOH9o ODgzMDQgWDFccGFyIEIuID f6FsW2ZOvfJCZeexEXMfY2 ODMwMCBYMVxwYXJ9 CLINICAL HISTORY (test r1ukrAGxMOPoiPXxFYFrNS code = 3356) kwkgCzKMWxhKUlM1Dlfojl OFmcLT2lLC5xdWglqOThuH NdGXKbGdXlt3ame035xLUr j2rdVEJSgamlaGp0lOaxV8 1kt2V6MbojC5mmSYSoHGkc VRCiEWlkhPWgJUo5TVBjnF VydzEyMjQwXHBhcGVyaDE1 JITuSV1bwvntEQacCPqtGM WexxS8QMLqmXIiE8ZaEGCr TI5tdbtcUSB0ZBfuSJLfAK D8TtMoGQMae2Owhwn7VkAh cRJdSUkhwZRisMhokD7sVi RxUYieHpIsQj8xVFuvqxPk p2C8IGeaNVDxOXXdBZIpfA FyfQ== GROSS DESCRIPTION (test y2rxeHUyFIBvzQCuIUGgKD code = [id number]) bdleCyDYAxlDWpI4Pokybn SOudLS6xTD1ruKejaKKtyV WjXQIfSeHjt1zih706uYIj j9cqGELMygazoOc9bQwaN8 9ep3L4LnuiH11ivFPkVIW8 LTOpHSQleEMyWBFuQCQ5EG HnzSHgX3gzJQZaVF7zcpso RUjcADspMYQduAK7WYGnzU NtP0ZoJSMtABloYHHwrts2 LzCpZc9wgFPnvMkxKYwkHr zpsFlkp4LtkCUbFQljPGKx HBQhDYtlLSCrC1YKFUMqZI AxMTgyODIiIFJFUSAxNTk2 EGd8CBWQHHLqIUWuCQe6Vt UyMSIgTFJSIDEyMzAwMDAw MDkgXFxuaCBcXHQgMSBcXG VqWSgdweW5m4jsCQVknGAb QXI6AUcfuMEeYMWzTHUdCJ xkYiBPVlIgIiAxMDExODI4 WlQpMBv5XZgwH3TXFEJeLR F5OfhsQWJ4VrA6HJt4AMCH Ye1kTyA2CoT4VgBiHXK0FT Q8XSpuwKQmVUkqt7OiJrMf PTRqXAyqowD9FFOnksNhrE gmyI4dOdFoJeQMWnABjFVy dHVtXHBhclxwYXJkXHNiMz TvFIZnQ7imFkSmAZQzPdDc SQRpD8laGUHzVKDuBXgcWO LpAlRtNhQrLZk8XJBxzZ9l Rr7fhHHmuY3cvRCoSWaoXO V7mSUcUYSlFFEwYEZeOU89 Y4RtviPlLDkgGBAxMXGswG 0nYV77ySKtfeHhknIcJg6d WS89xJ6iNTjgAWNvTy43KA msSI05KDijYY82ZREaNSQn cbBld75vg1UkbUQmUUccyJ vveheqKcbrcf4rNHB3nFYl bWVudHVtIHdpdGggYSBzcG Rfw4FiAL8ttR65SI1tQWGx pPTjFG99ODMpImPoqGCkyF brazZyRFs7QAY0HO7eUWBw S6Roe30mkymyajA5PLSvhf JjDBJiwv70HXaeg9fiwK7q o1lpkuXbyNVrQGQgXsDiYw M8dFptW1M8LBX2bwHcY5Mq WQJZqaLsjKNbvaR7LFSiGR Qcd74kCIDkTSCxTBKyyZso aWVkLiAgVGhlIHNwZWNpbW FpJWsuWLAaeNzgPFq7USV7 Yr5qeCRgZJNpxcVRDC58FS ZhnCNmTUF6EV1fnWyuHKO6 UKkvPXDnM2TkM9SeYMzbDB O9AXCyIcLsRDRxTY3NFsRe MHMjLUZ9NvkuOqA3URm9PM BPVlMgIiAgMzQzOTMxNjQi OHm8MPd9NBvHFiU9Mmf6Tc X3ZbQxVCM6OFCkXLd6PZYp XFxzcyAzIFxcZmwgXFxuY3 1ccGFyZFxzYjEwNVxlcGlj ZTHnUDF4WMTgPhOzZb3gA8 5wiEQMsZWjnIWiSG34nUSy XHBhclxwYXJkXHNiMzBcZX YhF5hiOkJlQCKmBPzkVUJr CoJcXlAnLJr2ERCfcS1nAw 2ykFTbiG4lmKVyQHvdTKU5 pQIlCNOvRUHwSFIeCL01C4 NbmpSmRLrwLTKaJRErkK5s NU02bHFxsvDgymYbVoMrAD WtUBCgoC6jcVF6RaTdjuHn AoM9hd4jmNOrpPBeYXObED bqKV77xnAvCoSmeVKjcAKg oGimjHBeb3IvjGElnZKePa fsZDJlwnVegLTvd9WbaEje iZYhYC8uOLSgjf7bKXGmXB 81QyJzN68ruT2wH4QaQUUm g7SkKWwxGY5poF8wAlHvYN hsVSXnWOcqNZ50ncItigEg ZDwpOqUgCB55pVFlpWzuwQ 9uQIPxSsh4PVuoZbemU3jt IX8aQUhuNHZwQmZiE7FukJ lvbmluZyByZXZlYWxzIGEg gPLuQLXbyjjsOHScA3YsqE yjjSGed2EyxUPpzSLcHJvb yVXcu2gsdsScrMZlKGMcUr XfkUCvB8H6AMV3peJzL8Rd FPKTgFZuh4KgN6abXL9jhW UzYK85pHKvkQzlw2AaqNk4 vCTxMKWtCQDdgFaoa7H2NG BhclxwYXJkXHBhciBTZWN0 qD0xWEAbKJGwlEYxZXOeGf XaYMJvJKfkTJ61TXNmUAOk AVcdlWDtUFJ7dG2yRLKrcM DfHWBtBDK3SiLeYADwPOlq UV74SHPgDCUqNZhhyOWrIZ S8iZ3bKICyvJSdPUTkKkTu EPAyY7zzGXMpDXU1LsTyCZ VuLIyqIF81h6jtySlbs3Wu jDXhIL8yjXKyw2kdRGKfuU CvENC9VLcxiNCiFWOhISTo XFxkYiBPVlIgIiAxMDExOD H9WhPlHTe0HUzbY6BPKAPc YZS1JhjrSscmEtY9BMg9IK DEYk5dRpE1WlY8GyE7IQL8 KEN2ICzqdPDjJZdav2OxRp TuXJRuQMfgxoF5OBWxicFy q2NkEBZlTMIvY3lqVxWfMR tmcdAhXVCdVNQptiKqV71q Dq5jvZhiXQWipHBlMIftVu ToOQUhzHCXa7BjHHtblUMt zpifkqXsLSRpX5VsqbCmJY SxYZKuIStkLhCoRFVwn0b2 fIG7qBOhgEQ4vGZigMskBG 7feJNwRZUgB0Bkt1gbvvUi iZ2uKNVpXP0sALEgg5UpcJ duIGJvZHkiIGlzIGEgMTIu JsOgoAVwtkMuUA4pbGdaIj fzQS6yMAUmEEHivPLgvaNn aWFtZXRlciBwdXJwbGUsIG V3fAlvMMZvQ5ZfGZApsvUx F78dPl5pgDQmy84djQV8RL 06BAjapZhskJKrA4ThXAF6 jUU8TMYqf1XcXJrkKZWaMY Odm7bgg8jvneqdqZ4fG8Jr kLUwb451ZSIoycdhFDZyVJ PgjvWEQ2WPDkbCMktpvDXc XFfys7ogrDJcaZipUJZwCm HZRA0NEITxojbvGSBuZDLz oj5qxnZhfK03y9omOCQkZB kbCFPyc3YvPwWsXd7da1Zn yWkpdbIrZVOjZHU9Qm9cxW QwYU3uIUMctVCyeKCgqQMp mzPuk3YvO5Oaj4NfIGbnwK goEHNwe89fw49yrO7pgXNi XHBhclxzYTMwXGVwaWNYc2 TzFSIHwJzkjsNAyqd0UDjr ZXMsIFBBLCBIVCAoQVNDUC o4VJPtwHSnGBC3MY1iqLkd HGEvL9ZpH8WgbtK4FNOtjg 0= MICROSCOPIC DESCRIPTION s1dovNFhAFUbjRSxEYYgQV (test code = 3371) tgteRnBAHfdRMtF4Lglvod ASebGC2xGD6uoXpirTTfxH EcGDUmZuYhl0bom413xJLf l2czCUYVrdatcZx2nFpcF0 1dm3P4EteuJ20zsQMzGVH8 MHFdPZRkpECiXOPfWWJ0UP EqiGDjH7laPSObTT4ezufb KAflFSdrSINjeBE9YLHkzE LmY4UsEDQdRUeuIKKguvi4 JlSbTy2zcVWvlCypSNtbPY VvULOcDKcsPVAqJpSlBF4O LgCYUVFwl6DrZOFcZBdlVT KfbPZrCKLlJA9cbQOlyKVi aWNhYmxlLlxwYXJ9 Gross assessment was [facility] performed at ([facility], = 2777) Department of Pathology, [address] [place] [address], Technical component was [facility] performed at ([facility], = 2778) Department of Pathology, [address] [place] [id number], Professional component [facility] was performed at ([facility], code = 2779) Department of Pathology, [address] [place] [address], [facility] [id number] 09:04:09 Test Item Value Reference Range Interpretation Comments Case Report (test code Surgical Pathology = 104) Report Case: [id number] Authorizing Provider: Fernando Pandya MD Collected: 04/21/2023 10:34 AM Ordering Location: [address] Received: 04/22/2023 08:42 AM Service Pathologist: Quyen Aguiar MD Specimens: A) - Omentum B) - Soft Tissue, Other, bladder injury C) - Foreign Body, foreign body for ID DIAGNOSIS (test code = [id number] 3220) FuZzEwMzNcZnRuYmpcdWMx IHtccnRmMVxlcGljMTAyMD CgKT8quPtftYe7hYfcCJVb skU3xKVeCGixo3atDSF9u0 bzvtkrQUAfBKgaDw4lvHVb xGesSlDsHTWbRHs3eX83KR GagZ5mbDCoGSs0TLJdyNGc lnXxWwXxCDIrzPVyvSS3JL CcQX6uecqnWGerFLpzCJAv veZ7KFQxaNQzR2GtGKIoWE 3ntkeoWCN4TAesSWFoGFT7 SwOjMHYlf0Kqoze1OpAraV FyZFxwbGFpblxmczIwIEEu EC5VFD5XDD7zRWLON1EWOA libDChYPUxCjBeQojTLd6Q WTkND8MNGYOMD0VUADIIOO RIIEFDVVRFIEFORCBDSFJP WswSXHcCEjrGMP9GXGyNHx BBTkQgRklCUklOXHBhclxw EBOhAx1pZZPOIvVURFAVPT YAJNFDOYBYN4GFVGufT3aS ICTNX0NrV4PFC8nMTXVYSV MDKPKLC3jSIxjrcFPfQSRj YiAtVVJJTkFSWSBCTEFERE KAZCTLM1XXZDVSATQSGAXJ VVRFIEFORCBDSFJPTklDIE dJVscTIY1EIReYOrgzCTJO K6WNZYNLOJfpwLWtWSPaFc YwJxtPKjqNURWRAYPSL2GH XLPYMQPJL5SYT0azJTStCH YrTMWgTMYeDGXfAS7IZj4N MZOFUBVAUN3HA08YDONCZC JRTNDKOCYJTLCSUXLUE6JG MYyADPzyI0fVMcyVH6erLX CaoWXvTPYrJGKCRM7RLdyu UgiCFAJQFofjDh0SKPbPDu VZO3ORRUMNFQ0NUxPUTJZd qdvubOnxADSeMr2UOFcAKr RUT1WICUsVC3ZHUBwcEFQR TlRJRklFRCAoUExFQVNFIF SDHIZWFu2GPcFFIIOJJurE VElPTilccGFyfXtccnRmMV qnc2CyPYnvEIPfFM4vmQti ISBfIX5lVDVfI5fstC5kzm b9YcOnYGXeKfH8KJPjgwW8 Hac0XHQkMBugo4irc7ElAR VdWYi0hElsMmTwRPQpr3lc cyBcZmNoYXJzZXQwIEFyaW UtP831z9qjn4sfvaGmgEP4 WWCjHDO7JNnttlNywzC0LZ hkpGPrEpF0HBtelqZvPWjk xjIwcxNzPct1EKLhQ948GB Z9nQwxh1mxBRB4RJIsFZVw AyVmNa0wvYByZ090GTQnNV AFMRMhcNl8XVRwnbDxltRf wJBZg443R115a8glYJYrfe AqaFzUxevza0gcX062QXUs cGVydzEyMjQwXHBhcGVyaD S0YCCoUM8dyijbWTucSChg APVrusB0SUIpdLQgI3YmCJ FgQB8rxlsmTMJ3SBioVGOy CSR7PdLoZFAly7Qdeqx9Wx Iopw9dcr49QPX0d0KigCgc VSI2SIY4KgLmGa1ghZAvMO GjTT2eXfAnsRXuREVkdq39 zQihBKimFEY7FVRmhaCof9 Unl5syHuFboaAcB8nlW3Fo ZHJoZWFkXHBnYnJkcmZvb3 Aop1QbkCQawEl9b2pgQEWn ISXzgSlza3ajXND6DSSgvM WjT8ubtI5hRBPpHZ1kurnk n3kgVKnqXCrpNCMkfRN3ar P0FSBnrYVrV2KouW9iDDAo GWtmPEVorkf4JvYsWk3yeW VyeTcyMFxzYmtwYWdlXHBn bmNvbnRccGduZGVjXHBsYW luXHBsYWluXGYwXGZzMjRc cWxcbGFuZzEwMzNcaGljaF srXQxwFeAnTPFdXAwlC8wj QcDvZjWaUid4BWMhrNCoIR UhWai6GXFvwYPuRVDGoOqz sL9jBSZmcZhluE4ihDL2OP VtfaBtrMKBgG0jOHYGyD8x ZeV3MKFmHcn9YVL9PlEiiO FyfX0= CPT Code(s) (test code c0bnlHFhJIHsqDTtABMjTI = 3357) awtaPdTINpwGFjS5Velokt ZSopNB7wIY7uuGlljJNmyB KnUZVjSxAxp2wsw897zAGi m0nfPNAUhmwehIb7dAlcB8 0ge3T5SvppY61juTIwZMK3 EPDeDSAnhVPlQMVjRZP9AF NbuAFxH7bnPCVlJO0lvshx YUnlGZltNHRnlKQ3YMKenW KjB3NyNYUuOBhvTSSbypz9 DyHhKq0ytGRkySftKEitIO ChIXWyAMmeNYVqXaGcII2k ODgzMDQgWDFccGFyIEIuID s2LaU7IXxyURJpueOMSkE5 ODMwMCBYMVxwYXJ9 CLINICAL HISTORY (test r1dobIMlVCTsjQXgTCGpPT code = 3356) hmipOwDLVujWFzL3Xhagir BQhsTD1lJR3xxNkarHDvdK WxULHbHgCuc4emr365rNTl q4hqCGWKgmsniOe8fAsrU5 7dh2I6DamtG3uaLQEaEVny NQTyQWwdmSTvSGa4BHWmfA VydzEyMjQwXHBhcGVyaDE1 CVIeGF8pfxeeTIacHPaqEL LmxoO4SVKsjVDvS5YoENFe BG9ywygmNCL9JIauGQLhOX V8IeBwQQMgx1Ljfjp6XgYb iYEhVJqxfNTprQtgiK9lUo DuTRfuFfEgIr7xOJgirfUi p5R0UVjbHEDgSVDnDELmkL FyfQ== GROSS DESCRIPTION (test n6rylOKwVUNkgGGjNTFdEA code = [id number]) kzytVdTUVehQJvO6Qbhlac AWoxRN0eHD9phBrwlZHggR LlDVRdLtRsg8wyl782kIFi v4nwXYVWabuyfQl4xQrsL2 1jp6J6MsfnU27rfTRxFYN9 DXLpRTRdqZKfMITuNNS9OX KtbQLoC7xcVWQyEJ3uneva GGbkYRjkLZEhkWX5GDPpoR JtE1YjUFKrLOjgUNJilao8 HkEkUx3puBLwdLtnAPpbOn smlRtnw4SybJEgTXbwIDSl QAJlQSvdQSTcP6BTDPSuAB AxMTgyODIiIFJFUSAxNTk2 IQn7ZHJLYOCeJOSxATw3Ft UyMSIgTFJSIDEyMzAwMDAw MDkgXFxuaCBcXHQgMSBcXG TeUWpyizV7x1vkCGNjvEKm VGF9SGelvICkWCBcINQaPX xkYiBPVlIgIiAxMDExODI4 BjEaKIp5VEivU6FVGUNhXH J1EofqBAK5QhN4REk1NSSX Jv8pEqR1RmH2WmIoGHA4SX J9LDqwjCAtUZqei7UnFuKg WFPoAWkcclY5NFLfykPmzL ypbO9gOoQcRxSWNeGKqLPl dHVtXHBhclxwYXJkXHNiMz CvZNTmT5ajSxSxPWGaQoRw HEBhR1aePSZtKFJsRYinBG EdGhAlKwQtITf2IGMcvQ1l Sa3zdFPaiV9odWNdTXtcGT L4pCNbCSNfOPQjAPOsRB21 R3SkhzWrTYxvGOYiHXIxcS 2jRT31gSHvsmElbxSsYx4o BD10oS1lEYrmPHYdOu37VQ vzPO45VBuwDZ01LDTqYOIq mbNvk23un5EwdQWaFGdlyS rvnvuxKcnckd6rUWC8lLAv bWVudHVtIHdpdGggYSBzcG Azo1BbNR4nwL80PC2yNWGa rGIwHH59KDBmLcAcuTQbwM bqkiEgIWq5LCT1QD9sPUHa B7Qnh00qoclvqeJ8LWFphx OtLWDslw25OIjls3hiiH2z x7tmeeAiuZWyKTElDhBhHv N7bVdgU8E8NLX8aeFtW7Np CYOJgmFrkVSehlR1AJOaFW Gse48tZZEuHBMrBFDpyXyw aWVkLiAgVGhlIHNwZWNpbW VqBAejUVJxeTwnKNy4NMN8 Hk7elZUfXQRnajVUSY51CB BehZCaUNN2IX0tuNzxKPJ6 JUluDOLzF5WeO9XzEEnkLL Q2ZRTwKpKkXXLvSA0SAaAz LLOzPRW5CwwpPpG3YAf9PV BPVlMgIiAgMzQzOTMxNjQi GMl2FQv7WUhEJcP9Uou7Sy O6TrIpJZI4PGFxQQm4NARr XFxzcyAzIFxcZmwgXFxuY3 1ccGFyZFxzYjEwNVxlcGlj ADCtQAQ7FUUjSbBiMb5dL2 2vuLFKpGOvoJEnJI15oDHn XHBhclxwYXJkXHNiMzBcZX NmD0cfShJmWFHkKTqvVYQw LdOwLmPySWz8ENQiyQ0rYq 0wmXGbzX2whRZqOTnhGRJ6 sMNlCCNmNGFjZGWtVU36K8 LmjvBfEDzsCAFeYJPdlO0q UT55xCIdlhIfqnMkOcZjTK VdTHHqrN3vyYV0QnOqvuPj OuZ6hi8ycTAzaAKbWMTnEG lhTP24waRgMaAkdYGfkTEv gAokzBEsa8PthUHlhSLcZl ccOFZrftReoWRht2AmcXlh aKSvQF9kSUIbqg8yBMBoTY 73IrNdW06rrZ5lO3XmRFWb j7AbCQqtOY2yeI8aBpHfCU ftMLJuEWumRZ21lbEnuwIo STznTpVrLG63tQYefFpkqF 9eXQBzBth9JQecBaxlM8cp MU2xSCcgVSWwEhJvW4NibU lvbmluZyByZXZlYWxzIGEg qQWpRNWwzikhWFJfS0JzgR jsmTXyr8FbyHKfeRStQZhw eWWxc2krkeVpeJUfKABsIz HsvAJhJ5Y6WQT7cbQeI8Sq USSGmECxu3JsA5miTK8xlV HfLA07zAPpcQakn7GbyPq3 iKUmNJFvTFOnaPvqh9M7AE BhclxwYXJkXHBhciBTZWN0 pF3dKGDaGOWqiBUkNBWnGx LqDEObUVafXB24IHDfPENx NLumcXOtHZC4vH8hPCApcR JqZZJzHKS5MmKjMVMtQMqf XJ85FRWfZBPoYZvcyGHjNA P7cT8jDVQrjUZmEYWaOiJw FOFoG0xaXOIkMNO3JbGfRI HvAFukJU51o1hzkEqmm0Zr vHSuFI5kmJSrs6aoCNTqfU PxBCR9STcvcVAbELZvEZWk XFxkYiBPVlIgIiAxMDExOD I2LoKrTGa5LQurH6SRDFVd YDD2GsgfWmzoXaA0BPz2RT SJBr2uWcW5RjM4GwO1UCG1 AWG3OTgkxKLiXSreu3EmDt HeOEFzXUkweiO6KSJcyeAr z8XhAUQxMRTwZ3hkPxVvXY omjxAyLAAdJBYovhByK33f Jg4bzDgpLPSxgUPmNPeeOu NrCFRwpUFGh6FdVHxtcBPi enjbkhWrPQTcE6AtoeXcHU LyYFQiATzrGoJgVYPyv1f1 vGH1cKEtlPN6rNCfzVikUF 9usIMgLVOcM2Ksn0hgonYp cH9tUFZmPO3kXIFsa6XmxD duIGJvZHkiIGlzIGEgMTIu BbXboFInvhFmKQ1nmCqkOp zjDC8vUMEkPLNycXHnoyHp aWFtZXRlciBwdXJwbGUsIG L2sRfmGETxQ4XjTLWkcsWz K83dKf2zyFXfb85uyEW1VE 21BIofsOtieGWoX8LmXXE0 rXT5MFMqd0LaHLnhPIBjWQ Vos3tfj0nbveozmT8yN5Ek pSEwv489UEWkkfqyLXOaBC AvsrPAK9RMEymFAgnoqJWy JBvyq1sfoZDomKeiPRUqFl DHRI7GCCZqeyjtMEPkYUKr pq8ekxQudA65x1lvZXUpME yjRCOqe1HfLaQoHx6jf1Pk nPwutoJzZDMeQGL3Vh7ynY JnFW7zPDNdlDTkxQXjfSRn liMwj3FlC4Xzr6TbORrznU etJYGcb23ms32fuM0ulYJa XHBhclxzYTMwXGVwaWNYc2 EeYSUYaKedhqPWafr0UPpk ZXMsIFBBLCBIVCAoQVNDUC l3JCWuxKCvVOT2YG8iuTui VCDzS2ZoL0XrlgZ9VNTyuz 0= MICROSCOPIC DESCRIPTION p7qdpFMhEPPiyYRuKUYcPK (test code = 3371) unyjPnWUQhfUWxV9Shtulb RZldQB0gLJ4ndPtmjAHstH CiXMMtKnHzl4nlr493rCAg n5meLKWTjbybbTw0lZveG0 2pa9R5AmquT84xmDWlANK1 DJGrGPGhqLRdNFDhSQA8AY DmyQChA3irRCAoBP7khuyg MZinSOkvHKYkdKE0RJSlyA TuV8PlRUSvEHwmLVGaylj6 NcLaSv2rbSHkbUgpCHluKG UiZKLnXOvjOZItDxYbSU2G NsTATITpa4CiRNJmMVxcEK LchUNzUVHvTQ5plMFclJFj aWNhYmxlLlxwYXJ9 Gross assessment was [facility] performed at ([facility], = 2777) Department of Pathology, [address] [place] [address], Technical component was [facility] performed at ([facility], = 2778) Department of Pathology, [address] [place], [place] [id number], Professional component [facility] was performed at ([facility], code = 2779) Department of Pathology, [address] [place], [place] [id number], [facility] Center[facility] [id number] 09:04:09 Test Item Value Reference Range Interpretation Comments Case Report (test code Surgical Pathology = 104) Report Case: [id number] Authorizing Provider: Fernando Pandya MD Collected: 04/21/2023 10:34 AM Ordering Location: [address] Received: 04/22/2023 08:42 AM Service Pathologist: Quyen Aguiar MD Specimens: A) - Omentum B) - Soft Tissue, Other, bladder injury C) - Foreign Body, foreign body for ID DIAGNOSIS (test code = [id number] 3220) FuZzEwMzNcZnRuYmpcdWMx IHtccnRmMVxlcGljMTAyMD GwIB6cqBwtoTl0cMefJSLv bjU8wSIpVJgen0msLON6u4 haiqleHXXeCMjcLs4jeJNz mEkvRcSjKVHmEUw6dV01CH SqpJ8ofFJwECv9FBBkwEWu cbEnEaPcNECqnKDfpGC6QK BrOG1ejmcmCEjeFAuqHMEf pwO0PFQjnXOmN7QlKLEyVD 7thlsiZEQ7DXgjLQPcXYW1 TiSoAKYtp1Bmxpz5JiComZ FyZFxwbGFpblxmczIwIEEu UJ5NWN0EXA2jCXRUI8FENC bkoYZpVBIcVgRzZuhAEi4X IXwYF6IDUIICY5EGPUZOEJ RIIEFDVVRFIEFORCBDSFJP QumMMQtFBfrZWY6WJGzWRw BBTkQgRklCUklOXHBhclxw CSNkUk4bBKVPGvDLSFYALJ ECNPCMFCJVL3HOXKglR1fG CQURF0VqG1AKI3rJIIMZZN ENMFWIF9oJAcnpyLVmKEXm YiAtVVJJTkFSWSBCTEFERE XWFWANR8MIMKQTGSLOLUBX VVRFIEFORCBDSFJPTklDIE oJTrhJEE7AJLkIKkrvHZPJ T5XOFFCYSJsbqFGvGADbAj NyKxsJQyoOYEBBRYYQQ7EU ZLANYXKRY6KIN7zzRQNpYI ZmJPQxUBDuHTSzML1SXh1W KLSZGNLWBP8UK42MCSAMKW IXLLPYIYXVLIPGWFMCJ3QD PLuVWGgbI4lPLonPY3hxLN GbkJVdNJNkCZJYHA2LJqfr JxwQZKKMXrebLp5BGAxERw UKP8BDWLYJEK6NVwCWPSCd lmtabYprLTFtNh3FRRdMUl NLX9BJSOqDJ4LDBFjxSDNL TlRJRklFRCAoUExFQVNFIF SMFRCEQo7YMdSDQZVWYroG VElPTilccGFyfXtccnRmMV ojd1UkJQnhAETrYZ0qjIom SFIfYF6kPTKrE4cqiA3ena z8MnNmVOYcHiK7RHHloyI3 One7RPMbVOhfj0atn1HdGK BoJZz5vNvyXfAvVVBmv5vb cyBcZmNoYXJzZXQwIEFyaW XdX687u3nxo2vgwxNnuDC1 BVHwZTG5XVgvteTliyP3IZ cnqYSrEbK5SUzrxqIvJOhg zhJfypHjEfj8UXUxX307HV X3uRtsx4jwIJD5BWDaWSCb EnRuLk6rrHVrY364EVQzPH UKAZSdnVo0KYPazcTevuIh pMBRn285O536n1tbJQIxim YfeSyHfgxky0sgS594TTWy cGVydzEyMjQwXHBhcGVyaD Z5YJLpCK2qlyvkNGgwEJsu FJBzjqT6MLYziCUmG1EgMB PrWT1chcilWZO2QLmkETRi NIN3SiCgTGBhp5Rbovt4Dm Yuhy0coa35MFR6c8WndNcr YSF7WUE9CjPtGp6tnIUfKV JhFF6tEpNmoZVbXKDhqm14 vTmrAJlxXAH7YCLbdoPhz3 Unc2lbPgIwbtNqT8gkW8Yg ZHJoZWFkXHBnYnJkcmZvb3 Idc4KwqXYdgEq3k7jcNSSo JJWeiOpyl0pqBQW4LUGozO WqI6dsiN5nIJDhTB4ilddh o0fnKPllDCxjVTQaqBN1zx X3XXMacMOmH4LkrX7lSGVg PYihFUZhtob3UwLgNe7vbD VyeTcyMFxzYmtwYWdlXHBn bmNvbnRccGduZGVjXHBsYW luXHBsYWluXGYwXGZzMjRc cWxcbGFuZzEwMzNcaGljaF jiONtwTuQxABWwNOdwW8xi MiXsUpFvLrp4OQIiiZVxCU NaDll7IFLhiEZfOOYWiSbz xI9mBJUcpBbohZ7ucSU7LS QjmbBfpVOBrD3kISVGcQ0p ByG0DBJhKsk7KSM7VdMcuA FyfX0= CPT Code(s) (test code o8vzmMUuPHIcoIBqWXLfMO = 3357) oaguSgUWFtxBNnF0Wgojxt VHqqZL8qHN1xePgehVPesL ZiWMQiShLbt9nzv531iGNs l8ehQJSFdfcopKv4zNhiY4 7am3E6DbcwS33eiHSkMQH7 LDWiDFGauIWtCOQrCMJ3FR AxwDKqO0uoYHIqVO0uxtjc PXfnLJvtRRHmjVU9GUQzxE HnC1OsTUBrZIqeIYWynni8 NwOgPz4yrYKwpKdwIKplKL CiWIKuMPmeWVEhDoCrJI6p ODgzMDQgWDFccGFyIEIuID l7HcD5HUgjXGIqaqVLSbY9 ODMwMCBYMVxwYXJ9 CLINICAL HISTORY (test y6ixbEDdSUTgtAVsYJRxZY code = 3356) jjsdLrKWVcoFVuM5Hgcoph HZibHZ8lAR3qmMsqtQFnfP WwLMKuGoQfn5eyy045mROh d7koYAYAgywhkSx3iGloX2 8te5T2UvzvT1kkZUZaEIcm IYMkOXewmMUzGBp3WUFyhR VydzEyMjQwXHBhcGVyaDE1 OCGoWU5txtabQHekMAfuPH FqqiN9TANwcEHgC9WzLKBv ET0lxillNKS4QIdcZGNdIW V1TxToTFXgw8Dbitk0MkCk iHSuFWhgmRHfgBahmL3eQo YyUPqkEyIdYd8gMCbyakOk b3N9OZjcEEUwCKJvIDZlxY FyfQ== GROSS DESCRIPTION (test w9xzqWNyARNinRIjODWtBI code = [id number]) bhkzIpQCJgwOBaY5Wvsuny JWwcBL6jYU7rzOaxtCYyvN HaAWYoTqWgp3cgc186sGWi l4cmGIJMggnblUz0qGsxA3 8fe4T1RhfoG39iqMMsBWN5 PQJnUBMufNIkRCJtTWR4ZB MinSNnF2alXKLiCS5ihutd RMlcLItkGZVboNS8POXzgH YcP9EnQOOhKNfsTGGugas7 MmJqNu9zuOQdmLosQZxrMf ceaQuxf7AdeFPbXMlwHSAb RXAxALxvFFWhT5QWHCCkTQ AxMTgyODIiIFJFUSAxNTk2 CGo0TJZCCNPnUXXnAGd4Lg UyMSIgTFJSIDEyMzAwMDAw MDkgXFxuaCBcXHQgMSBcXG CvPJqmjrP2y9viTVTdtHFf FGW0AAxzzETbSTSsOVTrKZ xkYiBPVlIgIiAxMDExODI4 OsKqYWj3OIlhB6PFMUNcCD F7RwawKGL0MbZ9PFk3VMGR Zn3qNbB3PaT4EiPgZOC5LD K4YYzslTJzCDvmw1QxNkWg TBXtZHejvfY7KXVvfgNqaQ bprS7aVlPyKbYQPzYXyRUa dHVtXHBhclxwYXJkXHNiMz WtJQJlO8jwFkElMRRkYjEm BMGoN4zbOWCfUIZtIIglTQ NtEpAqPfHqWTh1VOXyqZ9t Gu5skRGvvH3fxWIsVFwvSI C0vENmSJTpGMPvNCBvDE10 F2YjbmZeXCzsHQCvHPHlbQ 6qGZ77sPQaewKnnpXdTa7q BN39uX0uAYcjREEvQp00AP vyVF80OMhmLT31DMTeAKUo wqNzx89jd8DeuDRkKItkqT csjsejOegzwb5zKWN3hRNc bWVudHVtIHdpdGggYSBzcG Wnu6GvKH4ytC95WB2yTCDn kPXmPH53IOLhBjNtuDZwjV atidJlSGo5AMW2OL3bLSEf Z3Gge53ujexehyE9WFOnfx IvGQUmbz56ZWckn8arzZ1h e0nldmTfvEFzRKAvVaWiYr V5uOtwW5T0OHP3poLcZ2Cn ALGFjzXidVMnrkP0PSXkZX Ire38uXVWqNHLjXNWssOpd aWVkLiAgVGhlIHNwZWNpbW NfLVviUYIvnYmpKNn0YOF1 Io5zyGGnUXAynuYDKT19BE GruYUuNWH4TW5foWwePGB1 WYnxIEUwN4ZtZ4OtDVeuYN O4ENIaKpXgPJBeSM9SDcUk EMQdJHU0HjycYxU2PZw6CL BPVlMgIiAgMzQzOTMxNjQi XBn5CSn8KSjJIvU7Jlx4Xt F6SsHnFUW6RTKcKJg4ZVOx XFxzcyAzIFxcZmwgXFxuY3 1ccGFyZFxzYjEwNVxlcGlj JQQqNBO2OVVnBqGjUs9fU9 1mvXXUvZUjqKRsHB21jECx XHBhclxwYXJkXHNiMzBcZX OrL6nuZpZxYVDmXBabJHJy QvWeApFlYNm7PHMmuD2lAa 8hjXAjxE4knXAiARmgHIO7 bCWzFAWgBLYiESPhSY79D5 ZgwbAwHLiiHJTgVSYkjI3t UI70wWFvkdSnhcHjLfLmFK FlISJdbX0xwDR2GrQfyfKf FeW9ya5mpLOruSYeLNGkFF fjGX97laDjPkIpnTRfuWYv hQdwvPOzd0BecNZuyZDfOt dhFADedhBxkAOoy7RqjPew wFPeNT5iALYrcv5uFCSvWE 51FlOsG15etI2jO2BhYOMw e1DiYAboZF2ekF5rMkMoEO cqSYBfQTbnGC99zjUfjwGk NAnlTgZrKH63wUKglRzxmP 4cBLNaCyr5FUswZcjhE4ro HG6tQLgeLJRsInLcB7RkvE lvbmluZyByZXZlYWxzIGEg dFVpBQQtidlxEUWwC6DreN sqiYHvq5QyyUYnlCWrAApm qOOuk7rdzbNppFMhWQZuEe IhnXWdK6K7YZA0guRhP8Vl DAKKsBBwy1AcN5oxIP2seT ClET52bVWicVjcb9XvgGw7 vFHpNYRyXFNhmAyqe5L9NN BhclxwYXJkXHBhciBTZWN0 iO8fPUUcBJQbvHUyOAMbGd JpQXAuKYpxUP29BNGcLPEv KBvwlZNjVMK1pD0xMIYuhD VnXFVsETR2IlLdGTUsIWmx QQ25QTDrNUKiRHuthNYyQO U6rJ2zYZZpkUWpTBHdFcCm MDVoG5phMUCrAWV9GxOvHT TxYJeuZI82y8pctXkhy2Xe iAKjJZ7amUMhk2zpIIAkrT VnPLQ8KYejsYJhSYUeCLOj XFxkYiBPVlIgIiAxMDExOD P0QmNwQZo5HFecC7QBOGOy DZS7EqatEdixLeJ4DZq8HT XVFe5aOuH8NgO0EmC9RUR1 NBO8PRifmJUmVDhtg3OmJy OtLIIhCEqgfcQ7RATlntMd b9QlSAHfRHLyY0qyXnCuXB kmcgLeZGVsJJSlovBdH12o Zt5rnKzbCLIahHMuYHiqUh KdEKOakMOYi5QzSPfmqIVp ubodmwMsSUAlH3CetsMdNN QwNLEuHBrqOhSrYYDwb5b0 tNS0hAFqeQJ7bEXscJamWL 8unLKuSKVnT9Rtb0yebfZv fC5dSTPiEG9kRSDni5GvfE duIGJvZHkiIGlzIGEgMTIu UgJcmTNrfjYuHJ0hjGruLm jkNL8iPHZeDQRzrVYmsbBv aWFtZXRlciBwdXJwbGUsIG Y6kOkwITIiK6ByLXIvcbFd S96wVw3tuETmb19crPL9QT 14OJkizYpceTDtG7TpEZB6 vFT3MHMiu2PnQCdlHTKiIE Wsh3znp5trxdpspX0zS6Xk rKTns359GSRbkgagFOLnJD KbryFYN1JQDlzXLvflvBEf FEgoh0ypcUDpzKuaPOBjXj LULW4TMNWmpvckOEXcVWIz ay1yliZhzJ02x7riAEPdBQ olWAPrn2HdOaXlPu6ii2Lo yDwhpzOlURUhNIT3Ov8xwH JgXO4hLXBmnADixRVowDRb teWwz6FhV3Dtf5DsQIgjxL inKNLoo70yw48iqC0qfIOb XHBhclxzYTMwXGVwaWNYc2 ZtVHTPqEgdwlINjft7MVls ZXMsIFBBLCBIVCAoQVNDUC c4PKKlnLXoYBO4EY2vaUxd SUSkR6AqW2VbuwZ5FNMazy 0= MICROSCOPIC DESCRIPTION a0uctOGmEPZtxXUpFBCfNU (test code = 3371) xpvrOmEJZqmWSiE0Bajwre XGplVQ6sDD0cuNkleDDrtO FuXIEbNpFug2wkg137fMBq r5ldHQUVxeerrAw8sQkyL6 3sk2G5KetoC18cvBIwJOP4 PYWiQLCtcPExVSXyZLZ5YF ResSWyK6wtVWHiQT5bxpjy SLqcAGfeBWHorVX6DZQyfC XbY3CmBUExXAlrBKKpacl8 TlEkJb3jmVYfoHjoPKhyJA XjNBKjKHskGRWiVgJhES1Y FeFSVPKey8RbAZAhVAvkXH QmxSWjCBWiQS2yoQNwtLPp aWNhYmxlLlxwYXJ9 Gross assessment was [facility] performed at ([facility], = 2777) Department of Pathology, [address] [place] [address], Technical component was [facility] performed at ([facility], = 2778) Department of Pathology, [address] [place] [address], Professional component [facility] was performed at ([facility], code = 5282) Department of Pathology, [address] [place] [address], [facility] [id number] 09:04:09 Test Item Value Reference Range Interpretation Comments Case Report (test code Surgical Pathology = 104) Report Case: [id number] Authorizing Provider: Fernando Pandya MD Collected: 04/21/2023 10:34 AM Ordering Location: [address] Received: 04/22/2023 08:42 AM Service Pathologist: Quyen Aguiar MD Specimens: A) - Omentum B) - Soft Tissue, Other, bladder injury C) - Foreign Body, foreign body for ID DIAGNOSIS (test code = [id number] 3220) FuZzEwMzNcZnRuYmpcdWMx IHtccnRmMVxlcGljMTAyMD XkBN7dxUlofVc1nPxaWSCk ryQ1lJReRNxjd6ngZBI3v8 wscpbmFUSqOYveWq0bwKNe jPgrSgNoEANsPCj0zV68QU FyjN0rzJGyCKh3ANNenUPq btVgXvWkMROgkSOexYW7DB KrTI0ovnbuIHjgRZdcXTDx zdH7DSKyoXSoT5PrHMQgRP 0awhxtRNI0KOrsVGKlRKF9 DmTxGMBwa8Eohxr2UvLqrK FyZFxwbGFpblxmczIwIEEu NY4JZB3VXD7jVZJQY7CPPQ pniFUsLQDgCjLlItbQFi6A GUgEG0ZQSMRJX3TXZNYMPO RIIEFDVVRFIEFORCBDSFJP CywJSKwXYirPQD7ALWtHPr BBTkQgRklCUklOXHBhclxw NAMtDz2aBPKDIqODXFVKOY IVICOAHOMHL4BEMUawA0sM LULGX1RbX6DHW6tTYUNCDY BVKEHBO3iDSfdhoWDmKQXc YiAtVVJJTkFSWSBCTEFERE DDKQSRB8MEJWLGFKURDBZE VVRFIEFORCBDSFJPTklDIE iXSuqFHP2ZNPaSEjycXRGY Y2UWBFSSOBhvgJTvIFLzMp OfGwcYBzqFCRQHKJZRM0EX MCBBOLIVT6BRO2rwEDWdYV HdASSmBYIrPFRdTQ7AEy9Z CTOXQWIIUN7MG96ATEHZHL POZGCRHIJJXMVKQMUUK2DH RBbQDXqjG0tEQmzZP8vcYK PzxTTmZVKnNBJRPI8OWorw NhjENVZBDpwhSc5MBWrMDu XRM0EGAFOPLW6UEeYHFWZw uydbwBedUZSzWf9EBXfSZs RCK6HFAJsOO4GRFPasWTDK TlRJRklFRCAoUExFQVNFIF ISCSPBXp1LGxJPOBZMHvnO VElPTilccGFyfXtccnRmMV lta0PvSZseJAAmVW0crTfg ZTRwWM8pYQGeX1zakH3fns g1YePdKZIeXhB4BTGjatW2 Bjr4CGRgWUhcl1uzj2QaYN CzSXb8kVwgHbGuPNEkp4yz cyBcZmNoYXJzZXQwIEFyaW IhZ596j6ptc4ocqvNqxHL9 PVNhSHJ7PNsbkjXhbvA4SB ywaTWfYlL9RWtxxjEbJTfv fwSoxfPqKhj9DZSyC080KL H6qOiil0ftADR2LYRoFOOh CvMmQv8zmAGiY531RPGvZI JHZMCmdQp0AKWzffSwvjQh cFZRf477H186y4joISGits NjkMwCpimod6txI906INXa cGVydzEyMjQwXHBhcGVyaD H1HRWwJM7ahrimINrzBXxa WNSabzI3NYRysHPaB3JzNT ZwNB8sgvafHTI5EVxqWRFi CKW4LxRyHDXru4Jlfhr5Id Evco1mtb79MWG3p9BcpPqp XJZ9PJL3PeLrTz5pcKSwUI ZmOT3mUwJzfZKaBLWkxa01 rPlbJAnlTQH7OVKczmSqz0 Wjn3ciFxQcaiVzJ3yiC1Za ZHJoZWFkXHBnYnJkcmZvb3 Aog8QvsQZenKe6h9urDDFb KKGahOfti4qpKNK7RZOjkH KcQ6ppsH6pSXGqAK9gzdaf e2niQZqtGCerQISirMS4qk E3UCElzIRhJ0XwhZ4bZPBb RXhzRCPzhoo4RzDkHh8vxQ VyeTcyMFxzYmtwYWdlXHBn bmNvbnRccGduZGVjXHBsYW luXHBsYWluXGYwXGZzMjRc cWxcbGFuZzEwMzNcaGljaF wvKIbyReHhCSJuTWbkN6bd SqTjHjQrFoz3YXNsdWAmDF ZqYbt8DKSazFMlLJDBpVjg lR9rKUEvbPifiQ9ajPR5CU RlahEuzYVNdD7dISQKxO3f TsO1GMBkMge6GHB0CtWhwW FyfX0= CPT Code(s) (test code n7zkaMXaCNCjwCSoDGYmKK = 3357) irrpAeYTIpyWFwN0Euoywo YYmgCS8hGN0keMpvsXKbtD NwGODtWcHqd7vac783bOCu t4sqKNPNksatrAg1mNvfR1 1ib0N7OwtdJ78iqYHnOMC1 NYBbMSShiJMgHESyJZC9DP TlbLAmD4gqOHVaAW3bucsz GBjoVNaaLIJulGM3VJIcoU ZaW0JhYRKnIIymFMFwkyg4 RcHqAf3scKCaeVsxVFteAF RxIDYoCQgxRKWlWhQcEQ8n ODgzMDQgWDFccGFyIEIuID w6FpV4HVtzKBJsbdMHRpL3 ODMwMCBYMVxwYXJ9 CLINICAL HISTORY (test o3vrtLAjXZMnsLSyKCWaTO code = 3356) xcjcWlNLYkkFYqR1Pbloni DLksQQ5jTH6yyNwczBHrvX QsCNFwEnTnk2uqs191jDHa h3kqMNEFwucswZj2gGloL7 1zh8X5VlueS0zdOIGoTXts RXOeKHckdEBvNGe0IDCsmB VydzEyMjQwXHBhcGVyaDE1 BCXrXQ5ltbbeLLjzXPnhGQ AfnpW3SEUapGMfJ8EnYBJp VO0jhzooNFR0VYdoMYXnID O1FqSoPQKzk0Mqhbm0FdHp dKEdODaloYDdgLeffD8yUb IePEmwMcErLw8iXSgtenTp b0B4FNlkGAJtKXFyEQGdfC FyfQ== GROSS DESCRIPTION (test q0abjTGxQNDpcQUyFWHuOK code = [id number]) frbyMwKTYheJQlJ3Fgzfha PPgiRS7fOU4jvZukpCRchD SpEJRtFqLou5rod974xOWg l8gbYAUWhuefgWs8mOzbX3 6nz2Q5DawoF50dzBYmMNQ1 APNcISFupLBcVXUsJXS4BJ XquWHgI8qzGRPrRF6rrbpx OOgoDBaiOTHjmNW4DAMlzF DlK1RpOYOyZDcpTMBgeix9 KeHzRw4yrTSndOfhJFapMd hyoFimg0KquPYeTJxcFRWz AFUsISjdHNTnG5WGVBFcER AxMTgyODIiIFJFUSAxNTk2 LNt1KRKBVYFqWGPqMCy0Er UyMSIgTFJSIDEyMzAwMDAw MDkgXFxuaCBcXHQgMSBcXG AlICcvthZ6k0leDOJlmVXl QHT4FGenkEVuIXFiHWCtQZ xkYiBPVlIgIiAxMDExODI4 TmApHDz9ABlhX5SGTFEvYW P4VkxgRYW5NwL4SZw6IDVH Ct5gMiC5UuV8CjEgZZI6MZ L5OQojaQNtMOkkh1VbCtKq RLWyDVspzjK2NKNuprOjpV zmjL3tVbQjPsYUUtXBtHYo dHVtXHBhclxwYXJkXHNiMz ReMAYkS4pjFhWvQXUwRmVv HBDqJ2hjGLBtMKPtOFrlYT VrLcPjCsKlIIq1CLZsfA1n Hw0kpWEehB5syFEuZQhsNR W5sNGpNWJtHDStGRNwQX35 A4QrokIuHXynXEFuSFMcyJ 1kME31sVCfksHewuDxZs5w NU29dW4zWKnvNSInRx13YI fpTC73BUhvRK22KDDrUHQn feGlq99zc1CpbLBnKQswiX exghtqHryhtw2jCGR5xTCm bWVudHVtIHdpdGggYSBzcG Dfx6NiWE8rkH52MH7xXDXt yIWmMM75LAQtPwOgdOMnlQ qadrGdIYi9YHX2JA1xNGWg O4Thg00jvpmjooK8UVDpsr DbHFZfsc22QZnkf9aokR2q d5atxkYqaQMhXFTxQiUwLl M6xYjzC9P2JMB6xeVfZ7Ov NSYCkuKcxFAgrtW1ORFrZF Dzk78vYCQtNILaHMPcuAoc aWVkLiAgVGhlIHNwZWNpbW TyJRgkXJJjvEatASe5HRT9 Fl8njOYzWNRmlwJPGW97RJ UooFYzOHM2TG4qtYixUTK2 FDjfHSZhW5ToI6QzTAarVZ U0PITaDwApNUIpHF6UWeLv CNOvCOI9LndxUsE1LYj3NC BPVlMgIiAgMzQzOTMxNjQi WTc2ICw0OLhIXyR5Vco8Di L2JuTgOTV5OSLyBZe8IOHj XFxzcyAzIFxcZmwgXFxuY3 1ccGFyZFxzYjEwNVxlcGlj CLBxSMT7DMWhVgDjJu8fM5 1tbVQRhVBknQJiFH23yQJa XHBhclxwYXJkXHNiMzBcZX FqY8pcKsXvDWNtUOdkQGXu WzCxKuMaSLd2XRJalT8vPz 3jpZWhmX2vcZKvYZluEPM5 vAXeVKFbINRhGQYyCN31X3 QkrkAsPWylIZExWMDpiS5p IS10cOScurPcchTxZaAfMU FrQUWfnD4doEG2BvTfhmSb HxN3bt9zjGVtbWRqFNCfES upWD32ebTkRsHmwZCaqZCe iTgkzVXxp3XglMIdaRWxSn fmARQhgmMkoVXji2YchYyr uLVpIN0sOEYeqp3lXVRnOE 81ImGzH94qsF6dX0RkOHYf c8FwTHbfYN0ooR8zAvQwGY nlJWZnSDniQT67sxCuhjKc RUasHeKjUF05dERzdRklvC 8rUYHnDua7TCuwLnakX4pb CV8dRYpqYCInPhPyI0ZpfH lvbmluZyByZXZlYWxzIGEg aPNxUADfhidoSIEoO6SjeH lidYFsb5BoyVBfxRDdVQls rJOod8nmcwQbzAHxJBWcEy JjkGGqC8P8MTD5rwUfC5Gs YSCUhVKjn7DlI9hvPE3crY EiOA59wYTylIlbc7LyrQy8 lATdPEMfYUInuAvoc5F2EI BhclxwYXJkXHBhciBTZWN0 pL4nGQKsYXZamERaZGVqGd UyPZHkJFhaBW05UATfYYZl DBipkUFcJVL6uF5uVQAorX HfISAjDDS3EcWcLEArPVrs QX53IOAwQSHpGFuwhOQiHS Y7dO2uBVZhcCEaQYTkLyEk MQBoL5ebTKVxLUE1JgXpBC GzLYpfSX09l0mwuWsey5Cf uGGwSV5reOLvq1qsZZDmqO DmBWZ5UQwcqMUuDFVoESWr XFxkYiBPVlIgIiAxMDExOD U5KfOoUSt2HXzzS4HUKEAd FLM1HavtNrisZuD0TKt9VV QCVr9wIdA3YsS8LhR4XOK0 BDM2EEycrZFeMIncj6CjBl WlACLhUAbxqdD7XVEvltBs d1EqLUNvDXYxI6cmKcMnJX qxgdWdXJTjPROtknAuY04x Cs3veIeuSNEzsYWdFEehUn FsHXNjqFATd4ZjVZifgMYe iukwzcRdBRYeQ1DtdrQdGN WzKLEsDKmuBzQbXDJcy0y8 hCM7sCSekGK1eTZinIihSX 5deXMcXUDyE3Hal7vbboIo bK3dPJKsAG9nJQFlu6UlsE duIGJvZHkiIGlzIGEgMTIu UeShnBRyiuRsIJ5zxWexKp chCL5dWRBoJUMtxYSqyoYu aWFtZXRlciBwdXJwbGUsIG H2wWlcNKUlH5KbZJZsfzXe W85pPk7plRFwk58jbWT3KX 11RDezpNphfQMgM6UsJVY0 yPJ7SAQbu7MrAIpaPECnRJ Yjk3dfz9wjlmewaV5bH7Xk lTPws609YJXqnpqfBJDlDO YuspJTD1EEByhLPttukMFh CLrvc4jxuAMjhCtxSJBlIz EWUA5RQZYyudiyNWEzPJAo lq0crhBllE87c5ggGYWuBP diNUMfy9ThUmBlCy3hi9Kq sFtknuOuSARzZXP0Gg6ucJ ZfKS9aAAYczIPokUKlsRMu frUlg6RlG8Wvq1UfPLxpyT kdUUBdb14cl47ebG2jqWUv XHBhclxzYTMwXGVwaWNYc2 BeMZSMuJcweyKUpsx5KKrl ZXMsIFBBLCBIVCAoQVNDUC a1RSYikUZvMKG8XQ9epIsq GXOxY4GgR4ThjfE7PKYllw 0= MICROSCOPIC DESCRIPTION k2wcrQPoRMLnjCUlFRXeAF (test code = 3371) njtxOsQGMwqDTuV2Hsmofz YCzvEP4dKE0rpMwljWZydS UzSBYtFqPfw5iyj160sKId a1snUCGBtxnejZj3kRflS0 7rx8Q4DwivY12doPNsHIT2 XCNdGHKinGHfIAGyIHF3IT GcvDFpL3mcIWSfUY5ufezy ULqsJHwgZKUgxZK9ZXKcqT BuA2CzRPRfRBvcIQJmren8 QxYmHp8mkNVppCbnCCnrFS KpYSYpQEvrBMBsUgBhZR1W HqHIRHRph8SjLUGoZPatIR GxjZEgNWNpVA0ibYNquCLm aWNhYmxlLlxwYXJ9 Gross assessment was [facility] performed at ([facility], = 2777) Department of Pathology, [address] [place] [address], Technical component was [facility] performed at ([facility], = 2778) Department of Pathology, [address] [place] [address], Professional component [facility] was performed at ([facility], code = 2779) Department of Pathology, [address] [place] [address], [facility] CenterTISS[facility] [id number] 09:04:09Surgical Pathology Report Case: [id number] Authorizing Provider: Fernando Pandya MD Collected: 04/21/2023 10:34 AM Ordering Location: [address] Received: 04/22/2023 08:42 AM Service Pathologist: [...] GROSS DESCRIPTION) Signing Pathologist Direct Phone Line: [phone] signed by Quyen Aguiar MD on 05/01/2023 at 9:04 AMA. [id number] X1B. [id number] X1C. 73706 S9Qkurims body in bladderA. OmentumReceived in formalin labeled [...] is for gross examination only.THERESA Contreras, HT ([facility])A-B. Performed. C. Not applicable.[facility], Department of Pathology, [address] [place] [address], [facility], [facility], [address] [place], [place] [id number], [facility], Department of Pathology, [address] [place] [address], PLG W/PLT COUNT & AUTO [id number] 06:54:34 Test Item Value Reference Range Interpretation [...] code = 2801) STD Panel - CT/GC [id number] 23:47:22 Test Item Value Reference Interpretation Comments Range C. trachomatis NOT DETECTED RNA, TMA (test code = 8147612) N. gonorrhoeae NOT DETECTED REFERENCE RA NGE: NOT RNA, TMA (test DETECTED Meth odology: code = 6955347) Transcriptio n Mediated Amplification ( TMA)to detect RNA. The analytical perf ormance characteristics of thisassay, when used to test SurePat h(TM) specimens haveb een determined by [employer]. Th e modificationsha ve not been cleared or approved by the FDA. This assayhas b een validated pursu ant to the CLIA regula tions andis used for clinical purpos es. For additional information, pl ease refer tohttps://[employer]. [employer]/faq /CSO770(This li nk is being provided for informational/e ducatio nal purposes on ly.) CINDI (test code = Performing Lab CINDI) *[employer] [address] [address] Diego Mathew MD, PhD [facility] Panel - CT/GC [id number] 23:47:22 Test Item Value Reference Interpretation Comments Range C. trachomatis NOT DETECTED RNA, TMA (test code = 4199841) N. gonorrhoeae NOT DETECTED REFERENCE RA NGE: NOT RNA, TMA (test DETECTED Meth odology: code = 4647574) Transcriptio n Mediated Amplification ( TMA)to detect RNA. The analytical perf ormance characteristics of thisassay, when used to test SurePat h(TM) specimens haveb een determined by [employer]. Th e modificationsha ve not been cleared or approved by the FDA. This assayhas b een validated pursu ant to the CLIA regula tions andis used for clinical purpos es. For additional information, pl ease refer tohttps://educa tiBeanJockey.[employer]. [employer]/faq /JLJ492(This li nk is being provided for informational/e ducatio nal purposes on ly.) CINDI (test code = Performing Lab CINDI) *[employer]) [address] [address] Diego Mathew MD, PhD [facility] Panel - CT/GC [id number] 23:47:22 Test Item Value Reference Interpretation Comments Range C. trachomatis NOT DETECTED RNA, TMA (test code = 4808149) N. gonorrhoeae NOT DETECTED REFERENCE RA NGE: NOT RNA, TMA (test DETECTED Meth odology: code = 0711623) Transcriptio n Mediated Amplification ( TMA)to detect RNA. The analytical perf ormance characteristics of thisassay, when used to test SurePat h(TM) specimens haveb een determined by [employer]. Th e modificationsha ve not been cleared or approved by the FDA. This assayhas b een validated pursu ant to the CLIA regula tions andis used for clinical purpos es. For additional information, pl ease refer tohttps://[employer]. [employer]/faq /HYV443(This li nk is being provided for informational/e ducatio nal purposes on ly.) CINDI (test code = Performing Lab CINDI) *[employer]) [address] Diego Mathew MD, PhD [facility] Panel - CT/GC [id number] 23:47:22 Test Item Value Reference Interpretation Comments Range C. trachomatis NOT DETECTED RNA, TMA (test code = 3396312) N. gonorrhoeae NOT DETECTED REFERENCE RA NGE: NOT RNA, TMA (test DETECTED Meth odology: code = 7678552) Transcriptio n Mediated Amplification ( TMA)to detect RNA. The analytical perf ormance characteristics of thisassay, when used to test SurePat h(TM) specimens haveb een determined by [employer]. Th e modificationsha ve not been cleared or approved by the FDA. This assayhas b een validated pursu ant to the CLIA regula tions andis used for clinical purpos es. For additional information, pl ease refer tohttps://[employer]. [employer]/faq /QYC815(This li nk is being provided for informational/e ducatio nal purposes on ly.) CINDI (test code = Performing Lab CINDI) *[employer] Diego Mathew MD, PhD [facility] Panel - CT/GC [id number] 23:47:22 Test Item Value Reference Interpretation Comments Range C. trachomatis NOT DETECTED RNA, TMA (test code = 1951955) N. gonorrhoeae NOT DETECTED REFERENCE RA NGE: NOT RNA, TMA (test DETECTED Meth odology: code = 5846085) Transcriptio n Mediated Amplification ( TMA)to detect RNA. The analytical perf ormance characteristics of thisassay, when used to test SurePat h(TM) specimens haveb een determined by [employer]. Th e modificationsha ve not been cleared or approved by the FDA. This assayhas b een validated pursu ant to the CLIA regula tions andis used for clinical purpos es. For additional information, pl ease refer tohttps://[employer]. [employer]/faq /PBQ719(This li nk is being provided for informational/e ducatio nal purposes on ly.) CINDI (test code = Performing Lab CINDI) *[employer] [address] [address] Diego Mathew MD, PhD [facility] Panel - CT/GC [id number] 23:47:22 Test Item Value Reference Interpretation Comments Range C. trachomatis NOT DETECTED RNA, TMA (test code = 9903700) N. gonorrhoeae NOT DETECTED REFERENCE RA NGE: NOT RNA, TMA (test DETECTED Meth odology: code = 2497145) Transcriptio n Mediated Amplification ( TMA)to detect RNA. The analytical perf ormance characteristics of thisassay, when used to test SurePat h(TM) specimens haveb een determined by [employer]. Th e modificationsha ve not been cleared or approved by the FDA. This assayhas b een validated pursu ant to the CLIA regula tions andis used for clinical purpos es. For additional information, pl ease refer tohttps://[employer]. [employer]/faq /XHT412(This li nk is being provided for informational/e ducatio nal purposes on ly.) CINDI (test code = Performing Lab CINDI) *[employer] [address] Diego Mathew MD, PhD [facility] Panel - CT/GC [id number] 23:47:22 Test Item Value Reference Interpretation Comments Range C. trachomatis NOT DETECTED RNA, TMA (test code = 6509114) N. gonorrhoeae NOT DETECTED REFERENCE RA NGE: NOT RNA, TMA (test DETECTED Meth odology: code = 8360689) Transcriptio n Mediated Amplification ( TMA)to detect RNA. The analytical perf ormance characteristics of thisassay, when used to test SurePat h(TM) specimens haveb een determined by [employer]. Th e modificationsha ve not been cleared or approved by the FDA. This assayhas b een validated pursu ant to the CLIA regula tions andis used for clinical purpos es. For additional information, pl ease refer tohttps://educa [employer]. [employer]/faq /IDE257(This li nk is being provided for informational/e ducatio nal purposes on ly.) CINDI (test code = Performing Lab CINDI) *[employer]) [address] [address] Diego Mathew MD, PhD [facility] Panel - CT/GC [id number] 23:47:22 Test Item Value Reference Interpretation Comments Range C. trachomatis NOT DETECTED RNA, TMA (test code = 9060512) N. gonorrhoeae NOT DETECTED REFERENCE RA NGE: NOT RNA, TMA (test DETECTED Meth odology: code = 6042623) Transcriptio n Mediated Amplification ( TMA)to detect RNA. The analytical perf ormance characteristics of thisassay, when used to test SurePat h(TM) specimens haveb een determined by [facility]. Th e modificationsha ve not been cleared or approved by the FDA. This assayhas b een validated pursu ant to the CLIA regula tions andis used for clinical purpos es. For additional information, pl ease refer tohttps://[employer]. [employer]/faq /SEF615(This li nk is being provided for informational/e ducatio nal purposes on ly.) CINDI (test code = Performing Lab CINDI) *[employer] [address] Diego Mathew MD, PhD [facility] Panel - CT/GC [id number] 23:47:22 Test Item Value Reference Interpretation Comments Range C. trachomatis NOT DETECTED RNA, TMA (test code = 1315711) N. gonorrhoeae NOT DETECTED REFERENCE RA NGE: NOT RNA, TMA (test DETECTED Meth odology: code = 8247188) Transcriptio n Mediated Amplification ( TMA)to detect RNA. The analytical perf ormance characteristics of thisassay, when used to test SurePat h(TM) specimens haveb een determined by [facility]. Th e modificationsha ve not been cleared or approved by the FDA. This assayhas b een validated pursu ant to the [place] regula tions andis used for clinical purpos es. For additional information, pl ease refer tohttps://educa tion.[employer]/faq /BXH823(This li nk is being provided for informational/e ducatio nal purposes on ly.) CINDI (test code = Performing Lab CINDI) *[employer] [address] [address] Diego Mathew MD, PhD [facility] METABOLIC [id number] 06:05:43 Test Item Value Reference Range Interpretation [...] eGF R is based on the CKD-EPI 202 equation that d oes not use a race coefficientEsti mated GFR is not as accur ate as Creatinine Bhumi hernan in predicting glom erular filtration rate . Estimated GFR is not appl icable for dialysis patien ts Shield Installer ID - ADMINCBC W/PLT COUNT & AUTO [id number] 05:27:38 Test Item Value Reference Range Interpretation [...] 0.00-1.00 PERCENT (BEAKER) (test code = 2801) [id number] 15:29:12 Test Item Value Reference Range Interpretation Comments RPR SCREEN (BEAKER) (test code = Nonreactive Nonreactive 420) BASIC METABOLIC [id number] 05:30:13 Test Item Value Reference Range Interpretation [...] not appl icable for dialysis patien ts Shield Installer ID - MMCBC W/PLT COUNT & AUTO [id number] 05:00:11 Test Item Value Reference Range Interpretation [...] (BEAKER) (test code = 2801) HEPATITIS B [id number] 12:22:27 Test Item Value Reference Range Interpretation Comments HEPATITIS B CORE TOTAL ANTIBODY Nonreactive Nonreactive (BEAKER) (test code = 497) HEPATITIS B SURFACE ANTIBODY < mIU/mL <8.0 (BEAKER) (test code = 647) HEPATITIS B SURFACE ANTIGEN (2) Nonreactive Nonreactive (BEAKER) (test code = 2585) Shield Installer ID - ADMINFL, FLUORO, NON-SPECIFIC, UP TO 1 [id number] 11:50:00 Reason for exam:->[facility] 1980 Sex: FAn imaging unit was utilized for this procedure. No radiologist interpretation was requested. Refer to the EMR for findings. Refer to PACS for any patient radiation dose information.HIV-1 ANTIGEN WITH HIV-1/2 [id number] 11:41:16 Test Item Value Reference Range Interpretation Comments HIV-1 ANTIGEN WITH HIV 1\\T\\2 Nonreactive Nonreactive ANTIBODY (2) (BEAKER) (test code = 2586) Shield Installer ID - ADMINHEPATITIS C [id number] 11:41:11 Test Item Value Reference Range Interpretation Comments HEPATITIS C ANTIBODY (BEAKER) Nonreactive Nonreactive (test code = 367) Shield Installer ID - ADMINPregnancy Screen, [id number] 07:54:00 Test Item Value Reference Range Interpretation Comments Preg Test, Ur (test code = 2-1) Negative Negative Lab Interpretation (test code = Normal 34592-5) [facility] [id number] 07:54:00 Test Item Value Reference Range Interpretation Comments Preg Test, Ur (test code = 2111-) Negative Negative Lab Interpretation (test code = Normal 19002-4) [facility], [id number] 07:54:00 Test Item Value Reference Range Interpretation Comments Preg Test, Ur (test code = 2112-1) Negative Negative Lab Interpretation (test code = Normal 88709-4) [facility], [id number] 07:54:00 Test Item Value Reference Range Interpretation Comments Preg Test, Ur (test code = 2112-1) Negative Negative Lab Interpretation (test code = Normal 18809-9) [facility]Pre[facility], [id number] 07:54:00 Test Item Value Reference Range Interpretation Comments Preg Test, Ur (test code = 2112-1) Negative Negative Lab Interpretation (test code = Normal 97822-4) [facility] Screen, [id number] 07:54:00 Test Item Value Reference Range Interpretation Comments Preg Test, Ur (test code = 2112-1) Negative Negative Lab Interpretation (test code = Normal 88634-5) [facility], [id number] 07:54:00 Test Item Value Reference Range Interpretation Comments Preg Test, Ur (test code = 2112-1) Negative Negative Lab Interpretation (test code = Normal 96978-4) [facility], [id number] 07:54:00 Test Item Value Reference Range Interpretation Comments Preg Test, Ur (test code = 2112-1) Negative Negative Lab Interpretation (test code = Normal 65750-0) [facility], [id number] 07:54:00 Test Item Value Reference Range Interpretation Comments Preg Test, Ur (test code = 2112-1) Negative Negative Lab Interpretation (test code = Normal 75596-8) [facility]PREG[facility] S[facility]EN, [id number] 07:54:00 Test Item Value Reference Range Interpretation Comments TEST URINE (BEAKER) (test Negative Negative code = 583) BASIC METABOLIC [id number] 07:04:30 Test Item Value Reference Range Interpretation [...] not appl icable for dialysis patien ts Shield Installer ID - [id number] 07:04:30 Test Item Value Reference Range Interpretation Comments MAGNESIUM (BEAKER) (test code = 1.9 mg/dL 1.6-2.6 627) Shield Installer ID - [id number] 07:04:30 Test Item Value Reference Range Interpretation Comments PHOSPHORUS (BEAKER) (test code = 2.9 mg/dL 2.3-4.7 604) Shield Installer ID - ELIZABETHOCBC W/PLT COUNT & AUTO [id number] 06:56:04 Test Item Value Reference Range Interpretation [...] PERCENT (BEAKER) (test code = 2801) PROTHROMBIN TIME/[id number] 06:49:20 Test Item Value Reference Range Interpretation Comments PROTIME (BEAKER) (test code = 13.1 seconds 11.9-14.2 759) INR (BEAKER) (test code = 370) 1.01 <=5.90 RECOMMENDED COUMADIN/WARFARIN INR THERAPY RANGESSTANDARD DOSE: 2.0 - 3.0 Includes: PROPHYLAXIS for venous thrombosis, systemic embolization; TREATMENT for venous thrombosis and/or pulmonary embolus.HIGH RISK: Target INR is 2.5-3.5 for patients with mechanical heart valves.Urinalysis w/Microscopic + Reflex to [id number] 02:32:21 Test Item Value Reference Range Interpretation Comments Color, UA (test code Yellow = 5778-6) Clarity, UA (test Hazy code = 5767-9) Specific [place], UA 1.038 1.001-1.035 H (test code = 5811-5) pH, UA (test code = 6.5 5.0-8.0 5803-2) Protein, UA (test 100 mg/dL Negative A code = 12394-4) Glucose, UA (test Negative Negative code = 365) Ketones, UA (test Negative Negative code = 2514-8) Bilirubin, UA (test Negative Negative code = 64753-7) Blood, UA (test code Moderate Negative A = 75150-7) Nitrite, UA (test Positive Negative A code = 5802-4) Leukocytes, UA (test Large Negative A code = 5799-2) Urobilinogen, UA 0.2 0.2-1.0 (test code = 36661-0) RBC, UA (test code = 116 See_Comment [Autom ated 61138-1) message] The system which generated this result [...] 20 See_Comment [Automate d (test code = 71025-4) messag e] The system which generated this result transmit fatemeh reference range : /HPF. The reference range was not used to interpret this result as normal/abnormal . Specimen Source (test code = 2795) CINDI (test code = CINDI) Shield Installer ID - [auto]Shield Installer ID - tech Lab Interpretation Abnormal (test code = 05583-6) [facility] + Reflex to Culture 2023-04-21 02:32:21 Test Item Value Reference Range Interpretation Comments Color, UA (test code Yellow = 5778-6) Clarity, UA (test Hazy code = 5767-9) Specific [place], UA 1.038 1.001-1.035 H (test code = 5811-5) pH, UA (test code = 6.5 5.0-8.0 5803-2) Protein, UA (test 100 mg/dL Negative A code = 61960-1) Glucose, UA (test Negative Negative code = 365) Ketones, UA (test Negative Negative code = 2514-8) Bilirubin, UA (test Negative Negative code = 39348-7) Blood, UA (test code Moderate Negative A = 30894-8) Nitrite, UA (test Positive Negative A code = 5802-4) Leukocytes, UA (test Large Negative A code = 5799-2) Urobilinogen, UA 0.2 0.2-1.0 (test code = 35045-5) RBC, UA (test code = 116 See_Comment [Autom ated 38336-2) message] The system which generated this result [...] 20 See_Comment [Automate d (test code = 45956-2) messag e] The system which generated this result transmit fatemeh reference range : /HPF. The reference range was not used to interpret this result as normal/abnormal . Specimen Source (test code = 2795) CINDI (test code = CINDI) Shield Installer ID - [auto]Shield Installer ID - tech Lab Interpretation Abnormal (test code = 18918-9) [facility] + Reflex to Culture 2023-04-21 02:32:21 Test Item Value Reference Range Interpretation Comments Color, UA (test code Yellow = 5778-6) Clarity, UA (test Hazy code = 5767-9) Specific [place], UA 1.038 1.001-1.035 H (test code = 5811-5) pH, UA (test code = 6.5 5.0-8.0 5803-2) Protein, UA (test 100 mg/dL Negative A code = 14467-3) Glucose, UA (test Negative Negative code = 365) Ketones, UA (test Negative Negative code = 2514-8) Bilirubin, UA (test Negative Negative code = 29823-2) Blood, UA (test code Moderate Negative A = 05965-9) Nitrite, UA (test Positive Negative A code = 5802-4) Leukocytes, UA (test Large Negative A code = 5799-2) Urobilinogen, UA 0.2 0.2-1.0 (test code = 72887-8) RBC, UA (test code = 116 See_Comment [Autom ated 03991-0) message] The system which generated this result [...] 20 See_Comment [Automate d (test code = 68011-1) messag e] The system which generated this result transmit fatemeh reference range : /HPF. The reference range was not used to interpret this result as normal/abnormal . Specimen Source (test code = 2795) CINDI (test code = CINDI) Shield Installer ID - [auto]Shield Installer ID - tech Lab Interpretation Abnormal (test code = 44321-2) [facility] + Reflex to Culture 2023-04-21 02:32:21 Test Item Value Reference Range Interpretation Comments Color, UA (test code Yellow = 5778-6) Clarity, UA (test Hazy code = 5767-9) Specific [place], UA 1.038 1.001-1.035 H (test code = 5811-5) pH, UA (test code = 6.5 5.0-8.0 5803-2) Protein, UA (test 100 mg/dL Negative A code = 19340-7) Glucose, UA (test Negative Negative code = 365) Ketones, UA (test Negative Negative code = 2514-8) Bilirubin, UA (test Negative Negative code = 22609-9) Blood, UA (test code Moderate Negative A = 21388-6) Nitrite, UA (test Positive Negative A code = 5802-4) Leukocytes, UA (test Large Negative A code = 5799-2) Urobilinogen, UA 0.2 0.2-1.0 (test code = 02645-9) RBC, UA (test code = 116 See_Comment [Autom ated 37541-9) message] The system which generated this result [...] 20 See_Comment [Automate d (test code = 13239-1) messag e] The system which generated this result transmit fatemeh reference range : /HPF. The reference range was not used to interpret this result as normal/abnormal . Specimen Source (test code = 2795) CINDI (test code = CINDI) Shield Installer ID - [auto]Shield Installer ID - tech Lab Interpretation Abnormal (test code = 60475-2) [facility] Reflex to Culture 2023-04-21 02:32:21 Test Item Value Reference Range Interpretation Comments Color, UA (test code Yellow = 5778-6) Clarity, UA (test Hazy code = 5767-9) Specific [place], UA 1.038 1.001-1.035 H (test code = 5811-5) pH, UA (test code = 6.5 5.0-8.0 5803-2) Protein, UA (test 100 mg/dL Negative A code = 84235-5) Glucose, UA (test Negative Negative code = 365) Ketones, UA (test Negative Negative code = 2514-8) Bilirubin, UA (test Negative Negative code = 40640-3) Blood, UA (test code Moderate Negative A = 45718-1) Nitrite, UA (test Positive Negative A code = 5802-4) Leukocytes, UA (test Large Negative A code = 5799-2) Urobilinogen, UA 0.2 0.2-1.0 (test code = 30441-2) RBC, UA (test code = 116 See_Comment [Autom ated 80999-8) message] The system which generated this result [...] 20 See_Comment [Automate d (test code = 95703-2) messag e] The system which generated this result transmit fatemeh reference range : /HPF. The reference range was not used to interpret this result as normal/abnormal . Specimen Source (test code = 2795) CINDI (test code = CINDI) Shield Installer ID - [auto]Shield Installer ID - tech Lab Interpretation Abnormal (test code = 31010-6) [facility] Reflex to Culture 2023-04-21 02:32:21 Test Item Value Reference Range Interpretation Comments Color, UA (test code Yellow = 5778-6) Clarity, UA (test Hazy code = 5767-9) Specific [place], UA 1.038 1.001-1.035 H (test code = 5811-5) pH, UA (test code = 6.5 5.0-8.0 5803-2) Protein, UA (test 100 mg/dL Negative A code = 41303-5) Glucose, UA (test Negative Negative code = 365) Ketones, UA (test Negative Negative code = 2514-8) Bilirubin, UA (test Negative Negative code = 58612-2) Blood, UA (test code Moderate Negative A = 92493-1) Nitrite, UA (test Positive Negative A code = 5802-4) Leukocytes, UA (test Large Negative A code = 5799-2) Urobilinogen, UA 0.2 0.2-1.0 (test code = 43557-2) RBC, UA (test code = 116 See_Comment [Autom ated 41734-4) message] The system which generated this result [...] 20 See_Comment [Automate d (test code = 94187-4) messag e] The system which generated this result transmit fatemeh reference range : /HPF. The reference range was not used to interpret this result as normal/abnormal . Specimen Source (test code = 2795) CINDI (test code = CINDI) Shield Installer ID - [auto]Shield Installer ID - tech Lab Interpretation Abnormal (test code = 92269-6) [facility] Reflex to Culture 2023-04-21 02:32:21 Test Item Value Reference Range Interpretation Comments Color, UA (test code Yellow = 5778-6) Clarity, UA (test Hazy code = 5767-9) Specific [place], UA 1.038 1.001-1.035 H (test code = 5811-5) pH, UA (test code = 6.5 5.0-8.0 5803-2) Protein, UA (test 100 mg/dL Negative A code = 29278-2) Glucose, UA (test Negative Negative code = 365) Ketones, UA (test Negative Negative code = 2514-8) Bilirubin, UA (test Negative Negative code = 04958-6) Blood, UA (test code Moderate Negative A = 70931-8) Nitrite, UA (test Positive Negative A code = 5802-4) Leukocytes, UA (test Large Negative A code = 5799-2) Urobilinogen, UA 0.2 0.2-1.0 (test code = 33278-4) RBC, UA (test code = 116 See_Comment [Autom ated 13622-8) message] The system which generated this result [...] 20 See_Comment [Automate d (test code = 89467-3) messag e] The system which generated this result transmit fatemeh reference range : /HPF. The reference range was not used to interpret this result as normal/abnormal . Specimen Source (test code = 2795) CINDI (test code = CINDI) Shield Installer ID - [auto]Shield Installer ID - tech Lab Interpretation Abnormal (test code = 83646-0) [facility] + Reflex to Culture 2023-04-21 02:32:21 Test Item Value Reference Range Interpretation Comments Color, UA (test code Yellow = 5778-6) Clarity, UA (test Hazy code = 5767-9) Specific [place], UA 1.038 1.001-1.035 H (test code = 5811-5) pH, UA (test code = 6.5 5.0-8.0 5803-2) Protein, UA (test 100 mg/dL Negative A code = 02513-8) Glucose, UA (test Negative Negative code = 365) Ketones, UA (test Negative Negative code = 2514-8) Bilirubin, UA (test Negative Negative code = 22757-9) Blood, UA (test code Moderate Negative A = 92381-8) Nitrite, UA (test Positive Negative A code = 5802-4) Leukocytes, UA (test Large Negative A code = 5799-2) Urobilinogen, UA 0.2 0.2-1.0 (test code = 45688-2) RBC, UA (test code = 116 See_Comment [Autom ated 67911-9) message] The system which generated this result [...] 20 See_Comment [Automate d (test code = 57957-5) messag e] The system which generated this result transmit fatemeh reference range : /HPF. The reference range was not used to interpret this result as normal/abnormal . Specimen Source (test code = 2795) CINDI (test code = CINDI) Shield Installer ID - [auto]Shield Installer ID - tech Lab Interpretation Abnormal (test code = 42042-7) [facility] + Reflex to Culture 2023-04-21 02:32:21 Test Item Value Reference Range Interpretation Comments Color, UA (test code Yellow = 5778-6) Clarity, UA (test Hazy code = 5767-9) Specific [place], UA 1.038 1.001-1.035 H (test code = 5811-5) pH, UA (test code = 6.5 5.0-8.0 5803-2) Protein, UA (test 100 mg/dL Negative A code = 46675-9) Glucose, UA (test Negative Negative code = 365) Ketones, UA (test Negative Negative code = 2514-8) Bilirubin, UA (test Negative Negative code = 95029-9) Blood, UA (test code Moderate Negative A = 80481-0) Nitrite, UA (test Positive Negative A code = 5802-4) Leukocytes, UA (test Large Negative A code = 5799-2) Urobilinogen, UA 0.2 0.2-1.0 (test code = 01474-9) RBC, UA (test code = 116 See_Comment [Autom ated 51689-8) message] The system which generated this result [...] 20 See_Comment [Automate d (test code = 79231-0) messag e] The system which generated this result transmit fatemeh reference range : /HPF. The reference range was not used to interpret this result as normal/abnormal . Specimen Source (test code = 2795) CINDI (test code = CINDI) Shield Installer ID - [auto]Shield Installer ID - tech Lab Interpretation Abnormal (test code = 53441-6) [facility] UR[facility] [id number] 02:32:21 Test Item Value Reference Range Interpretation [...] = 516) SOURCE(BEAKER) (test code = 2795) Shield Installer ID - [auto]Shield Installer ID - techBLOOD [id number] 06:00:50 Test Item Value Reference Range Interpretation Comments CULTURE (BEAKER) (test No growth in 5 days code = 1095) The specimen volume collected for this blood culture was below the optimum (10 mL per bottle or 20 mL total). Use of lower volumes may adversely affect recovery and/or detection times of some organisms.BLOOD [id number] 06:00:50 Test Item Value Reference Range Interpretation Comments CULTURE (BEAKER) (test No growth in 5 days code = 1095) SARS-COV2/RT-PCR ([facility])2021-11-18 08:28:01 Test Item Value Reference Range Interpretation Comments SARS-COV2/RT-PCR Negative Negative The SARS-Co V-2 target (test code = nucleic acids a re not 8339655) detected in thi s specimen. Negative result [...] revoked sooner. Fact Sheet for Healthcare Providers: https://www.[employer].com m/Documents/Xpert%20Xpress%20SARS%20CoV-2/Fact%20Sheets/3023802%91PPJK-CBV-0%20 HEALTHCARE%20PROVIDERS%20FACT%20SHEET.pdf Fact Sheet for Healthcare Patients: https://www.[employer]/Documents/Xpert%20Xp ress%20SARS%20CoV-2/Fact%20Sheets/3023801%69RHAT-ZAZ-7%20PATIENT%20FACT%20SHEET .[id number] 06:04:17 Test Item Value Reference Range Interpretation Comments MAGNESIUM (BEAKER) 2.1 mg/dL 1.6-2.6 Specimen slightly (test code = 627) hemolyzed Shield Installer ID - NADEEM GOperator ID - NADEEM GBASIC METABOLIC [id number] 05:18:17 Test Item Value Reference Range Interpretation [...] S NOT APPLICABLE FOR DIALYSIS PATIEN TS. Shield Installer ID - NADEEM GCBC W/PLT COUNT & AUTO [id number] 04:53:25 Test Item Value Reference Range Interpretation [...] (BEAKER) (test code = 2801) BASIC METABOLIC [id number] 04:54:32 Test Item Value Reference Range Interpretation [...] S NOT APPLICABLE FOR DIALYSIS PATIEN TS. Shield Installer RUTH KILLIAN [id number] 04:54:32 Test Item Value Reference Range Interpretation Comments MAGNESIUM (BEAKER) (test code = 1.9 mg/dL 1.6-2.6 627) Shield Installer RUTH KILLIAN LCBC W/PLT COUNT & AUTO [id number] 04:16:32 Test Item Value Reference Range Interpretation [...] % 0-1 PERCENT (BEAKER) (test code = 2805) URINALYSIS W/ REFLEX URINE [id number] 09:09:42 Test Item Value Reference Range Interpretation [...] = 1521) SOURCE(BEAKER) (test code = 2795) Shield Installer ID - [auto]Shield Installer ID - techPREGNANCY SCREEN, [id number] 06:44:04 Test Item Value Reference Range Interpretation Comments TEST URINE (BEAKER) (test Negative code = 583) BASIC METABOLIC [id number] 06:03:02 Test Item Value Reference Range Interpretation [...] S NOT APPLICABLE FOR DIALYSIS PATIEN TS. Shield Installer ID - PIAYA LCBC W/PLT COUNT & AUTO [id number] 05:11:55 Test Item Value Reference Range Interpretation [...] 0-1 PERCENT (BEAKER) (test code = 2801) [id number] 22:12:00 Test Item Value Reference Range Interpretation Comments ALCOHOL (test code = 80 mg/dL 4340109897) CINDI (test code = Toxic Greater than or CINDI) equal to 80 mg/dL. NOTE: Whole blood values are approximately 10% to 15% lower than serum and plasma. [facility] CenterETHANOL2021-[facility] 20:38:00 Test Item Value Reference Range Interpretation Comments ALCOHOL (test code = 108 mg/dL 3267108551) CINDI (test code = Toxic Greater than or CINDI) equal to 80 mg/dL. NOTE: Whole blood values are approximately 10% to 15% lower than serum and plasma. [facility] DR[facility] [id number] 18:24:00 Test Item Value Reference Range Interpretation Comments BENZO U (test code = Negative Negative 1829547002) SANDRA U (test code = Negative Negative 8539388549) AMPHET (test code = Negative Negative 4459486080) THC (test code = Negative Negative 9866264494) METHADONE (test code = Negative Negative 4631610299) Meth U (test code = Negative Negative 4807068705) OPIATES (test code = Negative Negative 7254277046) Cocaine Metabolite (test Presumptive Positive Negative A code = 2190039202) PROPOXY (test code = Negative Negative 0219267044) Tric U (test code = Negative Negative 1562004730) PCP (test code = Negative Negative 3988778358) OXYCOD (test code = Negative Negative 8007797725) CINDI (test code = CINDI) Urine Drug [...] testing). Lab Interpretation (test Abnormal code = 52198-8) [facility] CenterPOCT [id number] 18:07:00 Test Item Value Reference Range Interpretation Comments POCT PREG (test code = 1605) Negative On board controls acceptable with C Present Line (test code = 3574) Lab Interpretation (test code = Normal 45409-1) [facility] CenterXR [id number] 17:36:18 Nonobstructive bowel gas pattern. Preliminary Report [...] this study and agree with the abovereport.[facility] CenterCOVID-19 (ID NOW RAPID TESTING)2020-12-25 17:13:00 Test Item Value Reference Range Interpretation Comments SARS-CoV-2 Rapid ID NOW Not Detected Not Detected (test code = 78957-1) CINDI (test code = CINDI) ID NOW COVID-19 Assay is an isothermal nucleic acid amplification test intended for the qualitative detection of nucleic acid from SARS-CoV-2 viral RNA in nasopharyngeal (STREETCAR STARTER) specimens. It is used under Emergency Use [...] indicated. Lab Interpretation Normal (test code = 30294-4) [facility] CenterETHANOL2021-01-24 16:37:00 Test Item Value Reference Range Interpretation Comments ALCOHOL (test code = 196 mg/dL 8093286840) CINDI (test code = Toxic Greater than or CINDI) equal to 80 mg/dL. NOTE: Whole blood values are approximately 10% to 15% lower than serum and plasma. [facility] (NA, K, CL, CO2, GLUCOSE, BUN, CREATININE, CA)2020-12-25 16:37:00 Test Item Value Reference Range Interpretation Comments NA (test code = 144 mmol/L 135-145 8918042410) K (test code = 4.4 mmol/L 3.5-5 9938292225) CL (test code = 109 mmol/L 98-108 H 3570925853) CO2 TOTAL (test code = 22 mmol/L 23-31 L 4558230649) AGAP (test code = 2-16 0269728391) BUN (test code = 9 mg/dL 7-23 6508743176) GLUCOSE (test code = 103 mg/dL 70-110 2676190930) CREATININE (test code = 0.66 mg/dL 0.5-1.04 8307954130) CALCIUM (test code = 8.9 mg/dL 8.6-10.6 0080920199) eGFR Calculation mL/min/1.73m2 (Non-) (test code = 8809131061) eGFR Calculation mL/min/1.73m2 () (test code = 0825417235) CINDI (test code = CINDI) Association of [...] tests). Lab Interpretation Abnormal (test code = 07571-2) [facility] WITH [id number] 16:25:00 Test Item Value Reference Range Interpretation [...] RDW-SD (test code = 41.1 fL 39-49.9 82696-7) RDW-CV (test code = 12.3 % 12-15.5 788-0) PLT (test code = See_Comment H [Automated 777-3) message] The sy stem which generated this result transmitted reference range : 166 - 358 10*3/ ?L. The reference r carlos was not used to interpret this result as normal/abnormal . MPV (test code = 9.2 fL 9.5-12.9 L 69349-5) NRBC/100 WBC (test See_Comment [Automat ed code = 7078580714) message] The system which generated this result transmitted reference range : 0.0 - 10.0 /100 WBCs. The refer ence range was not u sed to interpret th is result as normal/abnormal . NRBC x10^3 (test code <0.01 See_Comment [Auto mated = 8363818319) message] The s ystem which generated this result transmitted reference range : 10*3/?L. The reference range was not used to interpret this result as normal/abnormal . GRAN MAT (NEUT) % 68.0 % (test code = 770-8) IMM GRAN % (test code 0.50 % = 6321878620) LYMPH % (test code = 20.5 % 736-9) MONO % (test code = 6.6 % 5905-5) EOS % (test code = 3.9 % 713-8) BASO % (test code = 0.5 % 706-2) GRAN MAT x10^3(ANC) 8.09 10*3/uL 1.88-7.09 H (test code = 5471139864) IMM GRAN x10^3 (test 0.06 10*3/uL 0-0.06 code = 3408634570) LYMPH x10^3 (test code 2.43 10*3/uL 1.32-3.29 = 731-0) MONO x10^3 (test code 0.78 10*3/uL 0.33-0.92 = 742-7) EOS x10^3 (test code = 0.46 10*3/uL 0.03-0.39 H 711-2) BASO x10^3 (test code 0.06 10*3/uL 0.01-0.07 = 704-7) Lab Interpretation Abnormal (test code = 79583-7) [facility] (ID NOW RAPID TESTING)2020-07-15 19:30:00 Test Item Value Reference Range Interpretation Comments SARS-CoV-2 Rapid ID NOW Not Detected Not Detected (test code = 20754-7) CINDI (test code = CINDI) ID NOW COVID-19 Assay is an isothermal nucleic acid amplification test intended for the qualitative detection of nucleic acid from SARS-CoV-2 viral RNA in nasopharyngeal (STREETCAR STARTER) specimens. It is used under Emergency Use [...] indicated. Lab Interpretation Normal (test code = 49161-5) [facility] METABOLIC PANEL (24283)2020-07-15 19:20:00 Test Item Value Reference Range Interpretation Comments NA (test code = 136 mmol/L 135-145 7719606788) K (test code = 4.6 mmol/L 3.5-5 6324317798) CL (test code = 102 mmol/L 98-108 9054674389) CO2 TOTAL (test code = 21 mmol/L 23-31 L 8184528363) AGAP (test code = 2-16 9109872435) BUN (test code = 7 mg/dL 7-23 2380952133) GLUCOSE (test code = 102 mg/dL 70-110 2960164052) CREATININE (test code = 0.82 mg/dL 0.5-1.04 5926400943) TOTAL BILI (test code = 0.8 mg/dL 0.1-1.7 1825590787) CALCIUM (test code = 9.8 mg/dL 8.6-10.6 4332067670) T PROTEIN (test code = 8.4 g/dL 6.3-8.2 H 3666545770) ALBUMIN (test code = 4.8 g/dL 3.5-5 4299793017) ALK PHOS (test code = 102 U/L 34-122 0808959824) ALTv (test code = 25 U/L 5-35 1742-6) AST(SGOT) (test code = 41 U/L 13-40 H 9787946522) eGFR Calculation mL/min/1.73m2 (Non-) (test code = 7350605016) eGFR Calculation mL/min/1.73m2 () (test code = 1892742707) CINDI (test code = CINDI) Association of [...] tests). Lab Interpretation Abnormal (test code = 66332-4) [facility]IN[facility]IS2020-08-14 19:20:00 Test Item Value Reference Range Interpretation Comments APPEARANCE (test code = Hazy Clear A 4176695129) COLOR (test code = Yvonne Yellow A 1757789945) PH (test code = 4.8-8.0 4910144699) SP GRAVITY (test code = 1.003-1.030 6153682298) GLU U QUAL (test code = Normal Normal 4163499257) BLOOD (test code = Negative Negative 7930519981) KETONES (test code = 5 mg/dL Negative A 5442214325) PROTEIN (test code = 30 mg/dL Negative A 2887-8) UROBILIN (test code = 2.0 mg/dL Normal A 8990415414) BILIRUBIN (test code = Negative Negative 8583280285) NITRITE (test code = Negative Negative 7055958577) LEUK SHIRLEY (test code = 25/uL Negative A 2736463147) RBC/HPF (test code = See_Comment [Autom ated message] 1003290052) The system [employer] generated this result transmit fatemeh reference range : 0 - 3 HPF. The refe rence range was not u sed to interpret th is result as normal/abnormal . WBC/HPF (test code = See_Comment [Autom ated message] 6808007381) The system [employer] generated this result transmit fatemeh reference range : 0 - 5 HPF. The refe rence range was not u sed to interpret th is result as normal/abnormal . BACTERIA (test code = Few Negative A 7623239821) MUCOUS (test code = Moderate Negative LPF A 4877953171) SQ EPITH (test code = HPF 5975237491) HYAL CAST (test code = See_Comment H [Aut omated message] 1974738593) The system [employer] generated this result transmit fatemeh reference range : <=2 LPF. The refere nce range was not u sed to interpret th is result as normal/abnormal . Lab Interpretation (test Abnormal code = 35065-3) [facility] WITH [id number] 19:07:00 Test Item Value Reference Range Interpretation [...] (test code = 38.5 fL 39-49.9 L 84309-7) RDW-CV (test code = 11.9 % 12-15.5 L 788-0) PLT (test code = See_Comment [Automated 777-3) message] The system which generated this result transmit fatemeh reference range : 166 - 358 10*3/ ?L. The reference range was not u sed to interpret th is result as normal/abnormal . MPV (test code = 9.5 fL 9.5-12.9 65585-8) NRBC/100 WBC (test See_Comment [Automat ed code = 2872634095) message] The system which generated this result transmit fatemeh reference range : 0.0 - 10.0 /100 WBCs. The reference range was not used to interpret this result as normal/abnormal . NRBC x10^3 (test code <0.01 See_Comment [Auto mated = 2694150867) message] The system which generated this result transmit fatemeh reference range : 10*3/?L. The reference range was not used to interpret this result as normal/abnormal . GRAN MAT (NEUT) % 79.2 % (test code = 770-8) IMM GRAN % (test code 0.40 % = 3222116259) LYMPH % (test code = 12.9 % 736-9) MONO % (test code = 5.2 % 5905-5) EOS % (test code = 1.9 % 713-8) BASO % (test code = 0.4 % 706-2) GRAN MAT x10^3(ANC) 11.12 10*3/uL 1.88-7.09 H (test code = 4583083286) IMM GRAN x10^3 (test 0.05 10*3/uL 0-0.06 code = 2070290923) LYMPH x10^3 (test code 1.81 10*3/uL 1.32-3.29 = 731-0) MONO x10^3 (test code 0.73 10*3/uL 0.33-0.92 = 742-7) EOS x10^3 (test code = 0.27 10*3/uL 0.03-0.39 711-2) BASO x10^3 (test code 0.05 10*3/uL 0.01-0.07 = 704-7) Lab Interpretation Abnormal (test code = 55700-4) [facility] [id number] 18:47:00 Test Item Value Reference Range Interpretation Comments POCT PREG (test code = 1605) negative On board controls acceptable with present C Line (test code = 3574) POCT PREG LOT # (test code = 3575) [id number] POCT PREG TEST DATE (test code = 3576) Lab Interpretation (test code = Normal 43047-9) [facility] CenterXR CHEST 1 [id number] 22:08:34 No acute cardiopulmonary process. Preliminary Report [...] this study and agree with theabove report. [facility] 1 VW [id number] 12:56:21 1. No acute intrathoracic abnormality, specifically no detectableradiographic findings to suggest COVID-19 pneumonia. Disclaimer: Generally, the findings on chest imaging in COVID-19 are notspecific, and overlap with other infections, including influenza, H1N1,SARS and MERS.According to the Centers for Disease Control (CDC) and the [employer], viral testing remains the only [...] Centers for Disease Control (CDC) and the [place], viral testing remains the only specific method of diagnosiseven if CXR or CT findings are suggestive of COVID-19. Preliminary Report Dictated by Resident: Doreen Wilkinson, Margy Goode MD.,have reviewed this study and agree with theabove report.[facility]. METABOLIC PANEL (47512)2020-03-22 08:04:00 Test Item Value Reference Range Interpretation Comments NA (test code = 138 mmol/L 135-145 2807213086) K (test code = 3.5 mmol/L 3.5-5 1187825023) CL (test code = 105 mmol/L 98-108 3581505686) CO2 TOTAL (test code = 22 mmol/L 23-31 L 3781200851) AGAP (test code = 2-16 5244780139) BUN (test code = 7 mg/dL 7-23 6899296289) GLUCOSE (test code = 99 mg/dL 70-110 4430649069) CREATININE (test code = 0.74 mg/dL 0.5-1.04 3035069072) TOTAL BILI (test code = 0.5 mg/dL 0.1-1.8 9370053265) CALCIUM (test code = 8.5 mg/dL 8.6-10.6 L 8160362639) T PROTEIN (test code = 6.7 g/dL 6.3-8.2 4331767861) ALBUMIN (test code = 4.1 g/dL 3.5-5 5165332960) ALK PHOS (test code = 74 U/L 34-122 3255661110) ALTv (test code = 32 U/L 5-35 1742-6) AST(SGOT) (test code = 54 U/L 13-40 H 8670773630) eGFR Calculation mL/min/1.73m2 (Non-) (test code = 6101577955) eGFR Calculation mL/min/1.73m2 () (test code = 1233663547) CINDI (test code = CINDI) Association of [...] tests). Lab Interpretation Abnormal (test code = 25393-4) [facility] CenterABEBA [id number] 07:57:00 Test Item Value Reference Range Interpretation Comments TROPONIN I (test <0.012 See_Comment [Automated code = 5793425262) message] The system which generated this result [...] ? Lab Interpretation Normal (test code = 81775-0) [facility] CenterCORONAVIRUS COVID-19 [id number] 07:56:00 Test Item Value Reference Range Interpretation Comments SARS-CoV-2 (test code = Not Detected Not Detected 43764-6) CINDI (test code = CINDI) ID NOW COVID-19 Assay is an isothermal nucleic acid amplification test intended for the qualitative detection of nucleic acid from SARS-CoV-2 viral RNA in nasopharyngeal (STREETCAR STARTER) specimens. It is used under Emergency Use [...] indicated. Lab Interpretation Normal (test code = 88548-9) [facility] CenterLIPASE, [id number] 07:45:00 Test Item Value Reference Range Interpretation Comments LIPASE (test code = 8599485506) 58 U/L 0-220 Lab Interpretation (test code = Normal 08379-0) [facility] WITH [id number] 07:30:00 Test Item Value Reference Range Interpretation [...] RDW-SD (test code = 39.8 fL 39-49.9 60293-3) RDW-CV (test code = 12.1 % 12-15.5 788-0) PLT (test code = See_Comment [Automated 777-3) message] The sy stem which generated this result transmitted reference range : 166 - 358 10*3/ ?L. The reference r carlos was not used to interpret this result as normal/abnormal . MPV (test code = 9.2 fL 9.5-12.9 L 72574-3) NRBC/100 WBC (test See_Comment [Automat ed code = 9405496801) message] The system which generated this result transmitted reference range : 0.0 - 10.0 /100 WBCs. The refer ence range was not u sed to interpret th is result as normal/abnormal . NRBC x10^3 (test code <0.01 See_Comment [Auto mated = 6737314979) message] The s ystem which generated this result transmitted reference range : 10*3/?L. The reference range was not used to interpret this result as normal/abnormal . GRAN MAT (NEUT) % 62.2 % (test code = 770-8) IMM GRAN % (test code 0.50 % = 4144845623) LYMPH % (test code = 24.6 % 736-9) MONO % (test code = 7.7 % 5905-5) EOS % (test code = 4.5 % 713-8) BASO % (test code = 0.5 % 706-2) GRAN MAT x10^3(ANC) 6.71 10*3/uL 1.88-7.09 (test code = 7137292662) IMM GRAN x10^3 (test 0.05 10*3/uL 0-0.06 code = 2762796888) LYMPH x10^3 (test code 2.65 10*3/uL 1.32-3.29 = 731-0) MONO x10^3 (test code 0.83 10*3/uL 0.33-0.92 = 742-7) EOS x10^3 (test code = 0.49 10*3/uL 0.03-0.39 H 711-2) BASO x10^3 (test code 0.05 10*3/uL 0.01-0.07 = 704-7) Lab Interpretation Abnormal (test code = 51941-0) [facility] METABOLIC [id number] 17:09:00 Test Item Value Reference Range Interpretation [...] = ALKP) Specimen comments: ccSpecimen comments: SEPSIS [id number] 17:09:00 Test Item Value Reference Range Interpretation Comments LIPASE (test code = LIP) 318 Unit/L 114-286 H Specimen comments: ccSpecimen comments: SEPSIS [id number] 17:09:00 Test Item Value Reference Range Interpretation [...] = ALKP) Specimen comments: ccSpecimen comments: SEPSIS [id number] 17:03:00 Test Item Value Reference Range Interpretation Comments LIPASE (test code = LIP) 318 Unit/L 114-286 H Specimen comments: ccSpecimen comments: SEPSIS [id number] 17:03:00 Test Item Value Reference Range Interpretation [...] PROCAL) Specimen comments: ccSpecimen comments: SEPSIS WORKUPLACTIC [id number] 17:01:00 Test Item Value Reference Range Interpretation Comments LACTIC ACID (test code = LACT) 1.4 mmol/L 0.4-2.0 N Specimen comments: ccBASIC METABOLIC [id number] 16:58:00 Test Item Value Reference Range Interpretation [...] = ALKP) Specimen comments: ccSpecimen comments: SEPSIS [id number] 16:58:00 Test Item Value Reference Range Interpretation Comments LIPASE (test code = LIP) 318 Unit/L 114-286 H Specimen comments: ccSpecimen comments: SEPSIS [id number] 16:58:00 Test Item Value Reference Range Interpretation [...] HE NEGATIVERESULT DOES NOT RULE OUT THE OR ESENCE OF STREP GROUP A.W HEN STREP GROUP A ANTIGEN IS DETECTED, THE P OSITIVE RESULTIS SIGNIF ICANT. NEGATIVE RESULT S REFLEX A CULTURE. FORNEG ATIVE RESULTS A CULTU RE IS IN PROGRESS, RESUL T TO FOLLOW. HCG SERUM [id number] 16:55:00 Test Item Value Reference Range Interpretation Comments HCG SERUM QUAL (test code = HCGQL) NEG SCREEN NEG Specimen comments: SEPSIS WORKUP- XR CHEST 2 [id number] 16:55:00 FAX: Julia Sanz [phone] [place]: E St: PRE Patient Name: JAIDEN PLATA Unit No: [id number] EXAMS: CPT CODE: [id number] XR CHEST 2 V 22401 PA and lateral views of the chest [...] D/T: S: 02/17/2020 (1657) KILLIAN Crawford NAME: CHRI[address] PHYS: Julia [place], [place] [address] : 1980 AGE: 39 SEX: F LOC: [facility] PHONE #: [phone] EXAM DATE: 02/17/2020 STATUS: PRE ER FAX #: [phone] RAD NO: DC Dt: PAGE 1 Signed ReportUA RFLX MICR CULT IF [id number] 16:51:00 Test Item Value Reference Range Interpretation [...] Sepsis-no other srcUA RFLX MICR CULT IF [id number] 16:47:00 Test Item Value Reference Range Interpretation [...] for culture: Sev. Sepsis-no other srcCBC W/AUTO [id number] 16:45:00 Test Item Value Reference Range Interpretation [...]
[2023-10-11] MEDS ORDERED: NA CHLORIDE 0.9% 1,000 ML ONE ×2 (07:02→07:11)
[2023-10-11] MEDS ORDERED: FAMOTIDINE 20 MG/2 ML VIAL IV ONE (07:11)
[2023-10-11] MEDS ORDERED: ONDANSETRON 4 MG/2 ML VIAL ONE (07:11)
[2023-10-11 07:36] LABS: Absolute Lymphocytes (CBC) 1.2 K/uL (0.7-4.9); Lymphocytes % 6.8 % (15.3-44.8); MCV 94.4 fL (80-100); Platelets 351 thou/uL (152-406); RBC Red Blood Cell Count 4.56 M/uL (3.86-4.86)
--- NOTE | 2023-10-11 07:42 | RAD REPORT ---
EXAM DESCRIPTION: CTAbdomen Pelvis W Contrast - 10/11/2023 7:35 am CLINICAL HISTORY: Abdominal pain. NAUSEA / VOMITING COMPARISON: Abdomen Pelvis W Contrast dated 07/05/2023; Abdomen Pelvis W Contrast dated 04/20/2023; CT ABD PELVIS W CONTRAST dated 01/11/2014; CT ABD PELVIS W CONTRAST dated 12/30/2008 TECHNIQUE: Biphasic CT imaging of the abdomen and pelvis was performed with 100 ml non-ionic IV cont rast. All CT scans are performed using dose optimization technique as appropriate and may include automated exposure control or mA/KV adjustment according to patient size. FINDINGS: The lung bases are clear. The liver demonstrates fatty infiltration. Cholecystectomy clips. Spleen, pancreas, adrenal glands an d kidneys are within normal limits. No bowel obstruction, free air, free fluid or abscess. There is a mild thickened appearance to the as cending colon and transverse colon suggesting mild colitis. The appendix is normal. No evidence of s ignificant lymphadenopathy. No suspicious bony findings. IMPRESSION: There is a mild colitis pattern involving the ascending colon and transverse colon. Diffuse fatty liver.
[2023-10-11 07:59] LABS: Albumin 3.2 g/dL (3.4-5.0); Bilirubin Direct 0.1 mg/dL (0-0.2); Bilirubin Indirect, Calculated 0.3 mg/dL (0.2-0.8); Bilirubin Total 0.4 mg/dL (0.2-1.0); Magnesium 1.9 mg/dL (1.6-2.4); Potassium 4.3 mEq/L (3.5-5.1); Protein, Total 6.9 g/dL (6.4-8.2); Thyroid Stimulating Hormone 2.57 uIU/mL (0.358-3.740); Troponin High Sensitivity 3.4 pg/mL (<58.9)
--- NOTE | 2023-10-11 08:05 | RAD REPORT ---
EXAM DESCRIPTION: RAD - Chest Single View - 10/11/2023 7:43 am CLINICAL HISTORY: CHEST PAIN Chest pain. COMPARISON: Chest Single View dated 09/30/2023; Chest Single View dated 03/18/2023; Chest Single View dated 09/03/2020; CHEST SINGLE VIEW dated 01/12/2014 FINDINGS: Portable technique limits examination quality. The lungs are grossly clear. The heart is normal in size. No displaced fractures. IMPRESSION: No acute intrathoracic process suspected.
[2023-10-11 08:21] LABS: Urine Bacteria None Seen /HPF (<20); Urine Bilirubin NEGATIVE (Negative); Urine Blood Negative (Negative); Urine Clarity Clear (Clear); Urine Color Light-Yellow (Yellow); Urine Glucose NEGATIVE (Negative); Urine Mucus 2+ /HPF (None Seen); Urine Protein TRACE (Negative); Urine RBC <5 /HPF (None Seen); Urine Urobilinogen Normal (Normal)
[2023-10-11 08:26] LABS: Specific Gravity > 1.030 (1.005-1.030)
[2023-10-11] MEDS ORDERED: PROMETHAZINE INJ 25 MG/ML AMP ONE (08:56)
[2023-10-11] MEDS ORDERED: MORPHINE 4 MG/ML SYR ONE (08:57)
[2023-10-11 09:18] LABS: Blood Morphology Comment NOT SEEN (NOT SEEN); Platelet Estimate ADEQ; White Blood Cell Scan OK (OK)
--- NOTE | 2023-10-11 10:40 | ER ---
Nurse's Notes [facility] Name: Gabrielle Plata Age: 43 yrs Sex: Female : 1980 Arrival Date: 10/11/2023 Time: 06:26 Bed 8 Private MD: Diagnosis: Infectious gastroenteritis and colitis, unspecified;Noninfective gastroenteritis and colitis, unspecified;Dehydration Presentation: 10/11 06:37 Chief complaint: Patient states: with history Crohn's disease, last flare up was 2 rv years ago, used to ff up with Dr Spears. Vomiting started at 0230, Diarrhea started at 0430. aaox4. with history of a-fib, tachycardia noted upon arrival. Coronavirus screen: At this time, the client does not indicate any symptoms associated with coronavirus-19. Ebola Screen: No symptoms or risks identified at this time. Initial Sepsis Screen: Does the patient meet any 2 criteria? No. Patient's initial sepsis screen is negative. Does the patient have a suspected source of infection? No. Patient's initial sepsis screen is negative. Risk Assessment: Do you want to hurt yourself or someone else? Patient reports no desire to harm self or others. Onset of symptoms was October 11, 2023. 06:37 Method Of Arrival: Ambulatory rv 06:37 Acuity: CATHIE 2 rv Triage Assessment: 06:40 General: Appears uncomfortable, ill, Behavior is calm, cooperative. Pain: Complains of rv pain in abdomen. Neuro: Level of Consciousness is awake, alert, obeys commands, Oriented to person, place, time, situation. Cardiovascular: Capillary refill < 3 seconds Patient's skin is warm and dry. Respiratory: Airway is patent Respiratory effort is even, unlabored. GI: Pt is actively vomiting clear fluid, Reports diarrhea, vomiting. : No signs and/or symptoms were reported regarding the genitourinary system. Derm: Skin is intact. Historical: - Allergies: 06:40 cefepime; rv 06:40 Codeine; rv 06:40 Demerol; rv 06:40 Sulfa (Sulfonamide Antibiotics); rv 06:40 Tramadol HCl; rv - PMHx: 06:40 Anxiety; Crohn's Disease; Gretta Parikh tears; MRSA; rv - PSHx: 06:40 abdominal surgery due to foreign object; bladder surgery; breast augmentation; rv Cholecystectomy; tubal ligation; urethra surgery; - Immunization history:: Adult Immunizations up to date. - Social history:: Smoking status: Patient reports the use of cigarette tobacco products, smokes one pack cigarettes per day. - Family history:: not pertinent. Screenin:16 Abuse screen: Denies threats or abuse. Denies injuries from another. Nutritional ha1 screening: No deficits noted. Tuberculosis screening: No symptoms or risk factors identified. Assessment: 06:30 General: Appears uncomfortable, Behavior is cooperative, anxious, crying. Pain: ha1 Complains of pain in chest Pain does not radiate. Pain currently is 9 out of 10 on a pain scale. Quality of pain is described as pressure. Neuro: Level of Consciousness is awake, alert, obeys commands, Oriented to person, place, time, situation. Cardiovascular: Reports chest pain, shortness of breath, Heart tones S1 S2 present Capillary refill < 3 seconds Patient's skin is warm and dry. Respiratory: Airway is patent Respiratory effort is even, unlabored, Respiratory pattern is regular, symmetrical. GI: Abdomen is round non-distended, Pt is actively vomiting clear fluid, Bowel sounds present X 4 quads. Reports upper abdominal pain, nausea, vomiting. Derm: Skin is pink, warm \T\ dry. Musculoskeletal: Circulation, motion, and sensation intact. Range of motion: intact in all extremities. 07:46 Reassessment: Patient appears in no apparent distress at this time. Patient and/or hb family updated on plan of care and expected duration. Pain level reassessed. Patient is alert, oriented x 3, equal unlabored respirations, skin warm/dry/pink. 09:30 Reassessment: Patient appears in no apparent distress at this time. Patient and/or hb family updated on plan of care and expected duration. Pain level reassessed. Patient is alert, oriented x 3, equal unlabored respirations, skin warm/dry/pink. 10:12 Reassessment: Patient appears in no apparent distress at this time. Patient and/or hb family updated on plan of care and expected duration. Pain level reassessed. Patient is alert, oriented x 3, equal unlabored respirations, skin warm/dry/pink. Vital Signs: 06:37 BP 139 / 105; Pulse 150; Resp 24; Pulse Ox 100% ; rv 07:12 BP 140 / 104; Pulse 116; Resp 20 S; Pulse Ox 100% on R/A; ha1 08:08 BP 150 / 95; Pulse 117; Resp 20; Temp 98.4(O); Pulse Ox 99% on R/A; tm6 08:57 Pulse 108; Pulse Ox 100% on R/A; tm6 10:10 BP 136 / 77; Pulse 101; Resp 18; Pulse Ox 99% on R/A; hb 11:29 BP 142 / 76; Pulse 98; Resp 18; Pulse Ox 99% on R/A; ld1 ED Course: 06:27 Patient arrived in ED. jj6 06:30 Patient has correct armband on for positive identification. Placed in gown. Bed in low ha1 position. Call light in reach. Side rails up X 1. 06:40 Triage completed. rv 06:40 Franklin Monaco MD is Attending Physician. rt 06:40 Arm band placed on right wrist. rv 06:40 Inserted saline lock: 20 gauge in right antecubital area, using aseptic technique. ha1 Blood collected. 06:50 Inserted saline lock: in left antecubital area, using aseptic technique. Blood ha1 collected. 06:55 Fior Wheeler, RN is Primary Nurse. ha1 07:02 Attending Physician role handed off by Franklin Monaco MD rn 07:02 Ganesh Camara MD is Attending Physician. rn 07:05 CMP Sent. ha1 07:05 Lipase Sent. ha1 07:09 CBC with Diff Sent. ha1 07:09 LFT's Sent. ha1 07:09 Magnesium Sent. ha1 07:09 Troponin HS Sent. ha1 07:37 CT Abd/Pelvis - IV Contrast Only In Process Unspecified. EDMS 07:45 XRAY Chest (1 view) In Process Unspecified. EDMS 11:29 No provider procedures requiring assistance completed. IV discontinued, intact, ld1 bleeding controlled, No redness/swelling at site. Administered Medications: 06:55 Drug: NS 0.9% IV 1000 ml IV at 1 bolus Per protocol; 1000 mL bolus Route: IV; Rate: 1 ha1 bolus; Site: right antecubital; 07:05 Drug: Famotidine IVP 20 mg IVP once; dilute with 10 mL 0.9% NaCl; give over 2 minutes ha1 Route: IVP; Site: left antecubital; 07:06 Drug: NS 0.9% IV 1000 ml IV at 1 bolus Per protocol; 1000 mL bolus Route: IV; Rate: 1 ha1 bolus; Site: left antecubital; 07:07 Drug: Ondansetron IVP 4 mg IVP once; over 2 minutes Route: IVP; Site: left antecubital; ha1 08:47 Drug: morphine IVP or IV 4 mg IVP once over 4 mins Route: IVP; Infused Over: 4 mins; ld1 Site: left antecubital; 08:47 Drug: Promethazine IVP 12.5 mg IVP once Route: IVP; Site: left antecubital; ld1 Medication: 11:30 VIS not applicable for this client. ld1 Outcome: 10:39 Discharge ordered by . rn 11:30 Discharged to home ambulatory, ld1 11:30 Condition: stable 11:30 Discharge instructions given to patient, Instructed on discharge instructions, follow up and referral plans. medication usage, Demonstrated understanding of instructions, follow-up care, medications, Prescriptions given X 3, 11:30 Patient left the ED. ld1 Signatures: Dispatcher [employer] EDMS Ganesh Camara MD MD rn Baxter, Heather RN SITA Gian Hall RN Linette Shafer RN RN ld1 Naila Perezj6 Fior Wheeler RN RN ha1 Franklin Monaco MD MD rt Eris Gould RN RN tm6
--- NOTE | 2023-10-11 10:40 | EDPHYS ---
Physician Documentation [facility] Name: Gabrielle Plata Age: 43 yrs Sex: Female : 1980 Arrival Date: 10/11/2023 Time: 06:26 Bed 8 Private MD: ED Physician Ganesh Camara HPI: 10/11 06:53 This 43 yrs old Female presents to ER via Ambulatory with complaints of rt Nausea/Vomiting, Dizziness, Shortness Of Breath. 06:53 Patient has a history of Crohn's disease, last reporting a flare about 2 years ago. She rt states that she has been doing well from a Crohn's disease standpoint since then. She also reports a history of atrial fibrillation. Patient states that yesterday all day she felt palpitations, mild dizziness with nausea. She started vomiting about 230. The dizziness worsen stating that she feels like she will pass out. She also reports a chest pain. She reports a small amount of blood admixed within the vomit but believes that is from irritation. Denies overt hematemesis, coffee-ground emesis. She does report diarrhea that is nonbloody and nonmelanotic. Denies abdominal pain. Denies other acute complaints, symptoms are moderate in severity, no other aggravating or alleviating factors.. Historical: - Allergies: 06:40 cefepime; rv 06:40 Codeine; rv 06:40 Demerol; rv 06:40 Sulfa (Sulfonamide Antibiotics); rv 06:40 Tramadol HCl; rv - PMHx: 06:40 Anxiety; Crohn's Disease; Gretta Parikh tears; MRSA; rv - PSHx: 06:40 abdominal surgery due to foreign object; bladder surgery; breast augmentation; rv Cholecystectomy; tubal ligation; urethra surgery; - Immunization history:: Adult Immunizations up to date. - Social history:: Smoking status: Patient reports the use of cigarette tobacco products, smokes one pack cigarettes per day. - Family history:: not pertinent. ROS: 06:53 Constitutional: Negative for fever, chills, and weight loss, Back: Negative for injury rt and pain, MS/Extremity: Negative for injury and deformity, Skin: Negative for injury, rash, and discoloration, 06:53 Cardiovascular: Positive for chest pain, palpitations, 06:53 Respiratory: Positive for shortness of breath, Negative for cough, 06:53 Abdomen/GI: Positive for nausea and vomiting, diarrhea, 06:53 Neuro: Positive for dizziness, near syncope, Exam: 06:53 Constitutional: This is a well developed, well nourished patient who is awake, alert, rt and in no acute distress. Head/Face: Normocephalic, atraumatic. Chest/axilla: Normal chest wall appearance and motion. Nontender with no deformity. No lesions are appreciated. Cardiovascular: Regular rate and rhythm with a normal S1 and S2. No gallops, murmurs, or rubs. Normal PMI, no JVD. No pulse deficits. Respiratory: Lungs have equal breath sounds bilaterally, clear to auscultation and percussion. No rales, rhonchi or wheezes noted. No increased work of breathing, no retractions or nasal flaring. Skin: Warm, dry with normal turgor. Normal color with no rashes, no lesions, and no evidence of cellulitis. MS/ Extremity: Pulses equal, no cyanosis. Neurovascular intact. Full, normal range of motion. Neuro: Awake and alert, GCS 15, oriented to person, place, time, and situation. Cranial nerves II-XII grossly intact. Motor strength 5/5 in all extremities. Sensory grossly intact. Cerebellar exam normal. Normal gait. Psych: Awake, alert, with orientation to person, place and time. Behavior, mood, and affect are within normal limits. 06:53 Abdomen/GI: Mild tenderness diffusely without rebound, guarding, distention, 07:00 ECG was reviewed by the Attending Physician. rt Vital Signs: 06:37 BP 139 / 105; Pulse 150; Resp 24; Pulse Ox 100% ; rv 07:12 BP 140 / 104; Pulse 116; Resp 20 S; Pulse Ox 100% on R/A; ha1 08:08 BP 150 / 95; Pulse 117; Resp 20; Temp 98.4(O); Pulse Ox 99% on R/A; tm6 08:57 Pulse 108; Pulse Ox 100% on R/A; tm6 10:10 BP 136 / 77; Pulse 101; Resp 18; Pulse Ox 99% on R/A; hb 11:29 BP 142 / 76; Pulse 98; Resp 18; Pulse Ox 99% on R/A; ld1 MDM: 06:41 Patient medically screened. rt 10:38 Differential diagnosis: Nonspecific abd pain, gastritis, diverticulitis, viral rn gastroenteritis, gastroenteritis, Colitis, Crohn's flare. Data reviewed: vital signs, nurses notes, lab test result(s), radiologic studies, CT scan, and as a result, I will discharge patient. Counseling: I had a detailed discussion with the patient and/or guardian regarding the historical points, exam findings, and any diagnostic results supporting the discharge/admit diagnosis, lab results, radiology results, the need for outpatient follow up, to return to the emergency department if symptoms worsen or persist or if there are any questions or concerns that arise at home. Response to treatment: the patient's symptoms have markedly improved after treatment, and as a result, I will discharge patient. Special discussion: Based on the patient's Hx, exam, and Dx evaluation, there is no indication for emergent surgery or inpatient Tx. It is understood by the patient/guardian that if the Sx's persist or worsen they need to return immediately for re-evaluation. ED course: Patient with mild to moderate colitis on CAT scan, unsure if infectious or just Crohn's flare, offered observation given elevated white blood cell count and vomiting, patient declines admission, observed here for more than 4 hours and patient feels better with improved vital signs and patient request to go home versus being admitted. I have personally reviewed all of the results, including but not limited to blood tests and imaging deemed necessary to safely discharge this patient at this time. All results given to and printed out for patient. I personally went over all the results with the patient and answered all questions. Patient will follow-up with PCP and or specialist as discussed. Return precautions given and understood.. 10/11 06:50 Order name: Basic Metabolic Panel rt 10/11 06:50 Order name: CBC with Diff; Complete Time: 09:22 rt 10/11 06:50 Order name: LFT's; Complete Time: 08: rt 10/11 06:50 Order name: Magnesium; Complete Time: 08: rt 10/11 06:50 Order name: Troponin HS; Complete Time: 08: rt 10/11 06:50 Order name: CMP; Complete Time: 08: rt 10/11 06:50 Order name: Lipase; Complete Time: 08: rt 10/11 06:50 Order name: Urinalysis w/ reflexes; Complete Time: 08:29 rt 10/11 06:50 Order name: Lactate w/ 2H reflex if indic.; Complete Time: 08:07 rt 10/11 06:51 Order name: TSH; Complete Time: 08:07 rt 10/11 06:51 Order name: CPK; Complete Time: 08:07 rt 10/11 09:18 Order name: CBC Smear Scan; Complete Time: 09:22 EDMS 10/11 06:50 Order name: XRAY Chest (1 view); Complete Time: 08:07 rt 10/11 06:50 Order name: CT Abd/Pelvis - IV Contrast Only; Complete Time: 08:07 rt 10/11 06:50 Order name: EKG; Complete Time: 06:51 rt 10/11 06:50 Order name: Cardiac monitoring; Complete Time: 07:05 rt 10/11 06:50 Order name: EKG - Nurse/Tech; Complete Time: 07:05 rt 10/11 06:50 Order name: IV Saline Lock; Complete Time: 07:04 rt 10/11 06:50 Order name: Labs collected and sent; Complete Time: 07:05 rt 10/11 06:50 Order name: O2 Per Protocol; Complete Time: 07:03 rt 10/11 06:50 Order name: O2 Sat Monitoring; Complete Time: 07:03 rt 10/11 07:13 Order name: Labs - recollect needed: recollect cbc and chemistries per lab hemolyzed; eb Complete Time: 07:29 EC:00 Rate is 131 beats/min. Rhythm is regular, Sinus tachycardia with No ectopy. QRS [place] is rt Normal. TX interval is normal. QRS interval is normal. QT interval is normal. No Q waves. T waves are Normal. No ST changes noted. Interpreted by me. Administered Medications: 06:55 Drug: NS 0.9% IV 1000 ml IV at 1 bolus Per protocol; 1000 mL bolus Route: IV; Rate: 1 ha1 bolus; Site: right antecubital; 07:05 Drug: Famotidine IVP 20 mg IVP once; dilute with 10 mL 0.9% NaCl; give over 2 minutes ha1 Route: IVP; Site: left antecubital; 07:06 Drug: NS 0.9% IV 1000 ml IV at 1 bolus Per protocol; 1000 mL bolus Route: IV; Rate: 1 ha1 bolus; Site: left antecubital; 07:07 Drug: Ondansetron IVP 4 mg IVP once; over 2 minutes Route: IVP; Site: left antecubital; ha1 08:47 Drug: morphine IVP or IV 4 mg IVP once over 4 mins Route: IVP; Infused Over: 4 mins; ld1 Site: left antecubital; 08:47 Drug: Promethazine IVP 12.5 mg IVP once Route: IVP; Site: left antecubital; ld1 Disposition Summary: 10/11/23 10:39 Discharge Ordered Notes: Location: Home rn Problem: an acute exacerbation rn Symptoms: have improved rn Condition: Stable rn Diagnosis - Infectious gastroenteritis and colitis, unspecified rn - Noninfective gastroenteritis and colitis, unspecified rn - Dehydration rn Followup: rn - With: Private Physician - When: As needed - Reason: Recheck today's complaints, Re-evaluation by your physician Discharge Instructions: - Discharge Summary Sheet rn - Dehydration, Adult rn - Colitis rn Forms: - Medication Reconciliation Form rn - Thank You Letter rn - Antibiotic returned goods receiving clerk - Prescription Opioid Use rn - Patient Portal Instructions rn - Leadership Thank You Letter rn - Work release form eb Prescriptions: - Flagyl 500 mg Oral Tablet - take 1 tablet ORAL route every 8 hours for 10 days; 30 tablet; Refills: 0, rn Product Selection Permitted - Cipro 500 mg Oral tablet - take 1 tablet ORAL route every 12 hours for 10 days; 20 tablet; Refills: 0, rn Product Selection Permitted - promethazine 25 mg Oral tablet - take 1 tablet ORAL route every 6 hours As needed; 15 tablet; Refills: 0, rn Product Selection Permitted Signatures: Dispatcher [employer] Ganesh Galarza MD MD rn Attema, Lee, MACHINE CAGE MAKER-C MACHINE CAGE MAKER-Cla1 Deanna Nix Ronaldo RN RN Linette Arnold RN RN sharon1 Fior Wheeler RN RN rafa1 Franklin Monaco MD MD rt
[2023-10-11 11:38] VITALS: TEMP 98.4
[2023-10-11 11:41] VITALS: O2SAT 99
[2023-10-11 11:43] VITALS: BP 142/76
--- NOTE | 2023-10-12 14:10 | EKG ---
Test Date: 2023-10-11 Test Time: 06:51:23 Shop Worker: KAMINI MEASUREMENT RESULTS: Intervals: Rate: 131 NH: 122 QRSD: 66 QT: 304 QTc: 448 Vader: P: 85 NH: 122 QRS: 75 T: 62 INTERPRETIVE STATEMENTS: Sinus tachycardia Right atrial enlargement Borderline ECG Compared to ECG 09/30/2023 23:26:15 Atrial abnormality now present T-wave abnormality no longer present Electronically Signed On 10-12-23 14:07:25 INDUSTRIAL ECONOMIST by Saleem Sofia
== END 2023-10-11 11:30 | disposition home or self-care (01) ==
LOC: ER 06:26
DX: A09 Infectious gastroenteritis and colitis, unspecified (principal); E86.0 Dehydration; F17.210 Nicotine dependence, cigarettes, uncomplicated
CPT/HCPCS: 36415; 71045; 74177; 80053; 80076; 81001; 82550; 83605; 83690; 83735; 84443; 84484; 85025; 93005; 96374; 96375; 99284; J2405; J2550; J7030; Q9967

== ENCOUNTER → 2024-02-19 | Emergency (ER) | payer OTHER ==
[~2024-02-19] MED LIST: DIPHENHYDRAMINE 50 MG/ML VIAL ONE; METOCLOPRAMIDE 10 MG/2mL INJ ONE; NA CHLORIDE 0.9% 1,000 ML ONE
[2024-02-19 11:25] LABS: Absolute Basophils 0.1 K/uL (0-0.5); Absolute Eosinophils 0.2 K/uL (0-0.5); Absolute Lymphocytes (CBC) 1.4 K/uL (0.7-4.9); Absolute Monocytes 0.5 K/uL (0.1-1.3); Absolute Neutrophil 5.6 K/uL (1.8-8.0); Basophils % 0.8 % (0-1.3); Eosinophils % 2.4 % (0-4.4); Hematocrit 41.3 % (36.0-45.0); Hemoglobin 14.6 g/dL (12.0-15.0); Lymphocytes % 18.4 % (15.3-44.8); MCH 31.9 pg (27.0-35.0); MCHC 35.5 g/dL (32.0-36.0); MCV 90.1 fL (80-100); MPV 7.3 fL (7.6-11.3); Monocytes % 6.2 % (3.3-12.3); Neutrophils % 72.2 % (41.7-73.7); Nucleated Red Blood Cells % 0.1 % (0-0); Platelets 390 thou/uL (152-406); RBC Red Blood Cell Count 4.58 M/uL (3.86-4.86); Red Cell Distribution Width 13.9 % (12.1-15.2)
[2024-02-19 11:31] LABS: Sqamous Epithelial 20-50 /HPF (None Seen); Urine Bacteria None Seen /HPF (<20); Urine Bilirubin NEGATIVE (Negative); Urine Blood Negative (Negative); Urine Clarity Extremely Turbid (Clear); Urine Color Yellow (Yellow); Urine Culture Reflex Order NOT NEEDED; Urine Glucose NEGATIVE (Negative); Urine Ketones TRACE (Negative); Urine Microscopic Reflex YN ORDER UMIC; Urine Mucus 4+ /HPF (None Seen); Urine Nitrite NEGATIVE (Negative); Urine Protein 1+ (Negative); Urine Urobilinogen Normal (Normal); Urine WBC <5 /HPF (<5)
[2024-02-19 11:48] LABS: Albumin 3.6 g/dL (3.4-5.0); Anion Gap 11.5 mEq/L (5.0-15.0); Bilirubin Total 0.6 mg/dL (0.2-1.0); Globulin 3.6 g/dL (2.3-3.5); Potassium 3.5 mEq/L (3.5-5.1); Protein, Total 7.2 g/dL (6.4-8.2)
--- NOTE | 2024-02-19 12:23 | RAD REPORT ---
EXAM DESCRIPTION: CT - Abdomen Pelvis W Contrast - 02/19/2024 12:02 pm CLINICAL HISTORY: ABD PAIN COMPARISON: Abdomen Pelvis W Contrast dated 10/11/2023; Abdomen Pelvis W Contrast dated 07/05/2023 ; Abdomen Pelvis W Contrast dated 04/20/2023; CT ABD PELVIS W CONTRAST dated 01/11/2014 TECHNIQUE: Thin cut axial CT imaging of the abdomen and pelvis was performed following intravenous a dministration of 100 mL Isovue 300. Multiplanar reformats were generated and reviewed. All CT scans are performed using dose optimization technique as appropriate and may include automated exposure control or mA/KV adjustment according to patient size. FINDINGS: No suspicious findings in the lung bases. The liver again demonstrates mild diffuse parenchymal hypoattenuation. Spleen, adrenal glands, and pa ncreas show no suspicious findings. Gallbladder was surgically removed. Symmetric renal function is seen with no hydronephrosis or suspicious renal mass. No dilated bowel loops. Mild diffuse colonic bowel wall thickening involving the entirety of the colo n. No free air, free fluid or inflammatory stranding. No hernia, mass or bulky lymphadenopathy. The u rinary bladder is without significant finding. No suspicious bony findings. IMPRESSION: Findings suggestive of mild pancolitis. This could be of infectious or inflammatory natu re. Mild diffuse hepatic steatosis again seen.
--- NOTE | 2024-02-19 13:12 | EDPHYS ---
Physician Documentation [facility] Name: Gabrielle Plata Age: 43 yrs Sex: Female : 1980 Arrival Date: 02/19/2024 Time: 10:49 Bed 5 Private MD: ED Physician Michael Sebastian HPI: 02/18 11:26 This 43 yrs old Female presents to ER via Ambulatory with complaints of ec2 Dizziness, Vomiting/Diarrhea, Abdominal Cramping. 11:26 Patient arrives today for generalized abdominal pain. Patient reports several days of ec2 abdominal pain with associated nausea, vomiting, diarrhea. Reports general cramping. Patient reports no urinary complaints, denies any fevers or chills or cough. Reports history of some type of bladder surgery. Reports she is having some diarrhea as well, nonbloody. History of Crohn's, has not taken any chronic medications in several years.. Historical: - Allergies: 11:08 cefepime; ld1 11:08 Codeine; ld1 11:08 Demerol; ld1 11:08 Sulfa (Sulfonamide Antibiotics); ld1 11:08 Tramadol HCl; ld1 - PMHx: 11:08 Anxiety; Crohn's Disease; Gretta Parikh tears; MRSA; ld1 - PSHx: 11:08 abdominal surgery due to foreign object; bladder surgery; breast augmentation; ld1 Cholecystectomy; tubal ligation; urethra surgery; - Immunization history:: Adult Immunizations up to date. - Social history:: Smoking status: Patient denies any tobacco usage or history of. Patient/guardian denies using alcohol. ROS: 11:26 Constitutional: as per hpi ec2 Exam: 11:26 Constitutional: GEN: NAD Head: atraumatic Eyes: EOMI Ears: External ears are ec2 normal. CV: Tachycardia LUNGS: no respiratory distress ABD: non-distended, soft, generally tender, no guarding, not rigid SKIN: no evidence of rashes MSK: no evidence of trauma NEURO: moves all extremities equally Vital Signs: 11:07 BP 170 / 99; Pulse 103; Resp 18; Temp 98.6(TE); Pulse Ox 98% on R/A; Weight 56.7 kg; ld1 Height 5 ft. 0 in. ; Pain 7/10; 12:09 BP 153 / 91; Pulse 81; Pulse Ox 99% ; ec2 13:22 BP 145 / 87; Pulse 75; Resp 16; Temp 98.5; Pulse Ox 100% ; bp 11:07 Body Mass Index 24.41 (56.70 kg, 152.4 cm) ld1 11:07 Pain Scale: Adult ld1 MDM: 11:06 Patient medically screened. ec2 11:27 Data reviewed: vital signs. ED course: Patient arrives today for evaluation of ec2 generalized abdominal pain. Examination remarkable for well-appearing nontoxic dividual is otherwise in no acute distress with slight tachycardia and general abdominal TTP. Obtain lab work, CT imaging and treat her symptoms.. 12:09 ED course: CBC is reassuring, metabolic profile with appropriate electrolytes and renal ec2 function, urine is contaminated, not markedly infectious, lipase within normal ranges, test negative. Pending CT imaging. . 12:16 ED course: EKG independently reviewed and interpreted by me, shows normal sinus rhythm, ec2 rate of 79, no acute ST segment elevations, nonconcerning intervals.. 13:08 ED course: CT abdomen pelvis shows pancolitis, no intervenable process. . ec2 13:11 ED course: On reassessment patient with marked improvement in symptoms. Will discharge ec2 home. Return precautions given.. 02/18 11:12 Order name: CBC with Diff; Complete Time: 12:09 bp 02/18 11:12 Order name: CMP; Complete Time: 12:09 bp 02/18 11:12 Order name: Lipase; Complete Time: 12:09 bp 02/18 11:12 Order name: Test, Urine; Complete Time: 12: bp 02/18 11:12 Order name: Urinalysis w/ reflexes; Complete Time: 12: bp 02/18 11:26 Order name: CT Abd/Pelvis - IV Contrast Only; Complete Time: 13:07 ec2 02/18 11:12 Order name: EKG; Complete Time: 11: bp 02/18 11:12 Order name: IV Saline Lock; Complete Time: 11: bp 02/18 11:12 Order name: Labs collected and sent; Complete Time: 11: bp 02/18 11:12 Order name: EKG - Nurse/Tech; Complete Time: 13:15 bp Administered Medications: 11:48 Drug: metoCLOPramide IVP 10 mg IVP once; over 1 to 2 minutes Route: IVP; Site: right bp antecubital; 13:15 Follow up: Response: No adverse reaction bp 11:48 Drug: diphenhydrAMINE IVP 50 mg IVP once Route: IVP; Site: right antecubital; bp 13:15 Follow up: Response: No adverse reaction bp 11:49 Drug: NS 0.9% IV 1000 ml IV at 1 bolus Per protocol; 1000 mL bolus Route: IV; Rate: 1 bp bolus; Site: right antecubital; 13:15 Follow up: IV Status: Completed infusion; IV Intake: 1000ml bp Disposition Summary: 02/19/24 13:11 Discharge Ordered Notes: Location: Home ec2 Condition: Stable ec2 Diagnosis - Abdominal pain, unspecified ec2 Followup: ec2 - With: Private Physician - When: - Reason: Re-evaluation by your physician Discharge Instructions: - Discharge Summary Sheet ec2 - Abdominal Pain, Adult ec2 Forms: - Medication Reconciliation Form ec2 - Thank You Letter ec2 - Antibiotic Education ec2 - Prescription Opioid Use ec2 - Patient Portal Instructions ec2 - Leadership Thank You Letter ec2 Prescriptions: - Reglan 10 mg Oral Tablet - take 1 tablet ORAL route every 6 hours take 30 minutes before meals and at ec2 bedtime; 20 tablet; Refills: 0, Product Selection Permitted Signatures: Dispatcher [employer] Magnus Montalvo, RN RN Linette Vargas RN RN ld1 Michael Sebastian MD MD ec2 Corrections: (The following items were deleted from the chart) 11:27 11:26 Patient arrives today for generalized abdominal pain. Patient reports several ec2 days of abdominal pain with associated nausea, vomiting, diarrhea. Reports general cramping. Patient reports no urinary complaints, denies any fevers or chills or cough. Reports history of some type of bladder surgery.. ec2
--- NOTE | 2024-02-19 13:12 | ER ---
Nurse's Notes [facility] Name: Gabrielle Plata Age: 43 yrs Sex: Female : 1980 Arrival Date: 02/19/2024 Time: 10:49 Bed 5 Private MD: Diagnosis: Abdominal pain, unspecified Presentation: 02/18 11:07 Chief complaint: Patient states: LUQ abdominal pain. N/V/"Slime like diarrhea" X 3 ld1 days. Coronavirus screen: At this time, the client does not indicate any symptoms associated with coronavirus-19. Ebola Screen: No symptoms or risks identified at this time. Initial Sepsis Screen: Does the patient meet any 2 criteria? No. Patient's initial sepsis screen is negative. Does the patient have a suspected source of infection? No. Patient's initial sepsis screen is negative. Risk Assessment: Do you want to hurt yourself or someone else? Patient reports no desire to harm self or others. Onset of symptoms was February 19, 2024. 11:07 Method Of Arrival: Ambulatory ld1 11:07 Acuity: CATHIE 3 ld1 Triage Assessment: 11:08 General: Appears in no apparent distress. uncomfortable, Behavior is calm, cooperative, ld1 appropriate for age. Pain: Complains of pain in abdomen Pain does not radiate. Pain currently is 7 out of 10 on a pain scale. Quality of pain is described as sharp, throbbing. EENT: No signs and/or symptoms were reported regarding the EENT system. Neuro: Level of Consciousness is awake, alert, obeys commands, Oriented to person, place, time, situation, Appropriate for age. Cardiovascular: Capillary refill < 3 seconds Patient's skin is warm and dry. Respiratory: Airway is patent Respiratory effort is even, unlabored. GI: Abdomen is flat, non-distended, Reports diarrhea, nausea, vomiting. : No signs and/or symptoms were reported regarding the genitourinary system. Derm: No signs and/or symptoms reported regarding the dermatologic system. Musculoskeletal: No signs and/or symptoms reported regarding the musculoskeletal system. Historical: - Allergies: 11:08 cefepime; ld1 11:08 Codeine; ld1 11:08 Demerol; ld1 11:08 Sulfa (Sulfonamide Antibiotics); ld1 11:08 Tramadol HCl; ld1 - PMHx: 11:08 Anxiety; Crohn's Disease; Gretta Parikh tears; MRSA; ld1 - PSHx: 11:08 abdominal surgery due to foreign object; bladder surgery; breast augmentation; ld1 Cholecystectomy; tubal ligation; urethra surgery; - Immunization history:: Adult Immunizations up to date. - Social history:: Smoking status: Patient denies any tobacco usage or history of. Patient/guardian denies using alcohol. Screenin:15 [facility] ED Fall Risk Assessment (Adult) History of falling in the last 3 months, bp including since admission No falls in past 3 months (0 pts). Abuse screen: Denies threats or abuse. Denies injuries from another. Nutritional screening: No deficits noted. Tuberculosis screening: No symptoms or risk factors identified. Assessment: 11:15 General: SEE TRIAGE NOTE. GI: Reports diarrhea, nausea, vomiting. bp 13:24 Reassessment: [facility]. GI: Abdomen is non-distended, Bowel sounds present X bp 4 quads. Vital Signs: 11:07 BP 170 / 99; Pulse 103; Resp 18; Temp 98.6(TE); Pulse Ox 98% on R/A; Weight 56.7 kg; ld1 Height 5 ft. 0 in. ; Pain 7/10; 12:09 BP 153 / 91; Pulse 81; Pulse Ox 99% ; ec2 13:22 BP 145 / 87; Pulse 75; Resp 16; Temp 98.5; Pulse Ox 100% ; bp 11:07 Body Mass Index 24.41 (56.70 kg, 152.4 cm) ld1 11:07 Pain Scale: Adult ld1 ED Course: 10:51 Patient arrived in ED. mg5 10:53 Michael Sebastian MD is Attending Physician. ec2 11:08 Magnus Craven, SITA is Primary Nurse. bp 11:08 Triage completed. ld1 11:08 Arm band placed on right wrist. ld1 11:13 CBC with Diff Sent. bc6 11:13 CMP Sent. bc6 11:13 Lipase Sent. bc6 11:13 Initial lab(s) drawn, by ut, sent to lab. Inserted saline lock: 20 gauge in right bc6 antecubital area, using aseptic technique. Blood collected. 11:20 Urinalysis w/ reflexes Sent. bc6 11:20 Test, Urine Sent. bc6 11:23 CBC with Diff Sent. bp 11:23 CMP Sent. bp 11:23 Lipase Sent. bp 11:56 CT Abd/Pelvis - IV Contrast Only Sent. bp 12:04 CT Abd/Pelvis - IV Contrast Only In Process Unspecified. EDMS 13:15 Patient has correct armband on for positive identification. bp 13:15 No provider procedures requiring assistance completed. IV discontinued, intact, bp bleeding controlled, No redness/swelling at site. Pressure dressing applied. Administered Medications: 11:48 Drug: metoCLOPramide IVP 10 mg IVP once; over 1 to 2 minutes Route: IVP; Site: right bp antecubital; 13:15 Follow up: Response: No adverse reaction bp 11:48 Drug: diphenhydrAMINE IVP 50 mg IVP once Route: IVP; Site: right antecubital; bp 13:15 Follow up: Response: No adverse reaction bp 11:49 Drug: NS 0.9% IV 1000 ml IV at 1 bolus Per protocol; 1000 mL bolus Route: IV; Rate: 1 bp bolus; Site: right antecubital; 13:15 Follow up: IV Status: Completed infusion; IV Intake: 1000ml bp Intake: 13:15 IV: 1000ml; Total: 1000ml. bp Outcome: 13:11 Discharge ordered by . ec2 13:15 Discharged to home ambulatory, bp 13:15 Condition: stable 13:15 Discharge instructions given to patient, Instructed on discharge instructions, follow up and referral plans. medication usage, Demonstrated understanding of instructions, follow-up care, medications, Prescriptions given X 1, 13:25 Patient left the ED. bp Signatures: Dispatcher [employer] EDMA Magnus Craven, RN RN bp Linette Vargas RN RN ld1 Ashley Arias bc6 Debora Hunt mg5 Michael Sebastian MD MD ec2
[2024-02-19 13:56] VITALS: BP 145/87; TEMP 98.5; O2SAT 100
--- NOTE | 2024-02-20 14:26 | EKG ---
Test Date: 2024-02-19 Test Time: 11:59:54 Maintenance Instructor: FELISA MEASUREMENT RESULTS: Intervals: Rate: 79 OR: 128 QRSD: 80 QT: 414 QTc: 474 [place]: P: 20 OR: 128 QRS: 63 T: 49 INTERPRETIVE STATEMENTS: Normal sinus rhythm Normal ECG Compared to ECG 10/11/2023 06:51:23 Sinus tachycardia no longer present Atrial abnormality no longer present Electronically Signed On 02-20-24 14:23:34 CDT by Saleem Sofia
== END ==
LOC: ER 10:49
DX: R10.84 Generalized abdominal pain (principal); R19.7 Diarrhea, unspecified; R11.2 Nausea with vomiting, unspecified; Z98.82 Breast implant status; Z88.2 Allergy status to sulfonamides; Z88.5 Allergy status to narcotic agent; Z88.8 Allergy status to other drugs, medicaments and biological substances
CPT/HCPCS: 85025; 81001; 36415; 81025; 83690; 80053; 74177; Q9967; J2765; J1200; J7030; 93005

== ENCOUNTER 2024-05-23 03:28 | Emergency (ER) | payer OTHER ==
[2024-05-23] MEDS ORDERED: ONDANSETRON 4 MG/2 ML VIAL ONE (03:58)
[2024-05-23] MEDS ORDERED: LORazepam 2 MG/ML VIAL ONE (03:58)
[2024-05-23] MEDS ORDERED: PROMETHAZINE 25 MG TABLET ONE (03:59)
[2024-05-23] MEDS ORDERED: THIAMINE 200 MG/2 ML INJ ONE (03:59)
[2024-05-23] MEDS ORDERED: MULTIVITAMINS 10 ML VIAL (INJ) IV ONE (03:59)
[2024-05-23] MEDS ORDERED: FOLIC ACID 5 MG/ML VIAL ONE ×2 (03:59→04:11)
[2024-05-23] MEDS ORDERED: NA CHLORIDE 0.9% 1,000 ML ONE (04:01)
[2024-05-23 04:07] LABS: Absolute Basophils 0.1 K/uL (0-0.5); Absolute Eosinophils 0.4 K/uL (0-0.5); Absolute Lymphocytes (CBC) 2.4 K/uL (0.7-4.9); Absolute Monocytes 0.6 K/uL (0.1-1.3); Basophils % 0.6 % (0-1.3); Eosinophils % 3.4 % (0-4.4); Hematocrit 38.1 % (36.0-45.0); Hemoglobin 13.5 g/dL (12.0-15.0); Lymphocytes % 22.8 % (15.3-44.8); MCH 32.6 pg (27.0-35.0); MCHC 35.3 g/dL (32.0-36.0); MCV 92.2 fL (80-100); MPV 7.9 fL (7.6-11.3); Monocytes % 5.6 % (3.3-12.3); Neutrophils % 67.6 % (41.7-73.7); Platelets 253 thou/uL (152-406); RBC Red Blood Cell Count 4.13 M/uL (3.86-4.86)
[2024-05-23 04:34] LABS: PT Prothrombin Time 10.4 SECONDS (9.4-12.5); Protime INR 0.94
[2024-05-23 04:41] LABS: ALT/SGPT 36 U/L (13-56); AST/SGOT 26 U/L (15-37); Albumin 3.3 g/dL (3.4-5.0); Alkaline Phosphatase 94 U/L (45-117); BUN Blood Urea Nitrogen 7 mg/dL (7-18); Bicarbonate 26 mEq/L (21-32); Bilirubin Total 0.5 mg/dL (0.2-1.0); Globulin 3.4 g/dL (2.3-3.5); Glomerular Filtration Rate 100 ml/min (=/>90); Glucose Level 108 mg/dL (74-106); Magnesium 1.7 mg/dL (1.6-2.4); NT PRO-BNP 242 pg/mL (<125); Protein, Total 6.7 g/dL (6.4-8.2); Sodium Level 138 mEq/L (136-145); Troponin High Sensitivity 3.9 pg/mL (<58.9)
[2024-05-23 04:42] LABS: Bilirubin Direct < 0.2 mg/dL (0-0.2); Bilirubin Indirect, Calculated 0.3 mg/dL (0.2-0.8)
--- NOTE | 2024-05-23 05:24 | EDPHYS ---
Physician Documentation [facility] Name: Gabrielle Plata Age: 43 yrs Sex: Female : 1980 Arrival Date: 05/23/2024 Time: 03:28 Bed 3 Private MD: ED Physician Rene Pearson HPI: 05/23 03:36 This 43 yrs old Female presents to ER via Unassigned with complaints of Chest sp4 Pain. 05:14 43-year-old female presents with complaint of chest pain and palpitations also anxiety. 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 Flu vaccine is not up to date. - Infectious Disease History:: Denies. - Social history:: Smoking status: Patient reports the use of cigarette tobacco products, denies chronic smoking, but will smoke occasionally, Patient uses alcohol, occasionally. Patient/guardian denies using street drugs, IV drugs. - Family history:: not pertinent. ROS: 05:14 Constitutional: Negative for fever, chills, and weight loss, chest pain and palpitation sp4 05:14 All other systems are negative, Exam: 05:14 Constitutional: This is a well developed, well nourished patient who is awake, alert, sp4 and in no acute distress. Head/Face: Normocephalic, atraumatic. Eyes: Pupils equal round and reactive to light, extra-ocular motions intact. Lids and lashes normal. Conjunctiva and sclera are not injected. Cornea within normal limits. Periorbital areas with no swelling, redness, or edema. ENT: Nares patent. No nasal discharge, no septal abnormalities noted. Tympanic membranes are normal and external auditory canals are clear. Oropharynx with no redness, swelling, or masses, exudates, or evidence of obstruction, uvula midline. Mucous membranes moist. Neck: Trachea midline, no thyromegaly or masses palpated, and no cervical lymphadenopathy. Supple, full range of motion without nuchal rigidity, or vertebral point tenderness. Chest/axilla: Normal chest wall appearance and motion. Nontender with no deformity. No lesions are appreciated. Cardiovascular: Regular rate and rhythm with a normal S1 and S2. No gallops, murmurs, or rubs. Normal PMI, no JVD. No pulse deficits. Respiratory: Lungs have equal breath sounds bilaterally, clear to auscultation and percussion. No rales, rhonchi or wheezes noted. No increased work of breathing, no retractions or nasal flaring. Abdomen/GI: Soft, with normal bowel sounds. No distension or tympany. No guarding or rebound. No evidence of tenderness throughout. Back: No spinal tenderness. No costovertebral tenderness. Skin: Warm, dry with normal turgor. Normal color with no rashes, no lesions, and no evidence of cellulitis. MS/ Extremity: Pulses equal, no cyanosis. Neurovascular intact. Full, normal range of motion. Neuro: Awake and alert, GCS 15, oriented to person, place, time, and situation. Cranial nerves II-XII grossly intact. Motor strength 5/5 in all extremities. Sensory grossly intact. Psych: Awake, alert, with orientation to person, place and time. Behavior, mood, and affect are within normal limits 05:14 ECG was reviewed by the Attending Physician. 0 3:38 normal sinus rhythm normal EKG 90 Vital Signs: 03:40 BP 163 / 93; Pulse 95; Resp 20; Temp 99; Pulse Ox 98% ; Weight 56.7 kg; Height 5 ft. 0 jw7 in. ; Pain 7/10; 04:00 BP 152 / 95; Pulse 83; Resp 16 S; Pulse Ox 99% on R/A; jw7 05:00 BP 118 / 78; Pulse 82; Resp 17 S; Pulse Ox 96% on R/A; jw7 06:24 BP 131 / 84; Pulse 79; Resp 18; Temp 98.8; Pulse Ox 98% on R/A; Pain 0/10; kd4 03:40 Body Mass Index 24.41 (56.70 kg, 152.4 cm) jw7 03:40 Pain Scale: Adult jw7 06:24 Pain Scale: Adult kd4 MDM: 03:37 Patient medically screened. 4 05:19 Differential diagnosis: acute myocardial infarction, acute pericarditis, anxiety, sp4 coronary artery disease costochondritis, esophagitis, gastritis. HEART Score: History: Slightly Suspicious (0), ECG: Normal (0), Age: > 45 and < 65 years (1), Risk Factors: No Risk Factors Known (0), Troponin: < or = 1 x Normal Limit (0), Total Score = 1. The patient was not given aspirin in the Emergency Department. Administered by EMS. Data reviewed: vital signs, nurses notes, EMS record, old medical records, lab test result(s), EKG, radiologic studies, plain films. ED course: Positive for normal workup. Unremarkable workup possible symptoms secondary to anxiety. Stable for discharge home.. 05/23 03:37 Order name: Basic Metabolic Panel; Complete Time: 05:09 4 05/23 03:37 Order name: CBC with Diff; Complete Time: 05:09 4 05/23 03:37 Order name: LFT's; Complete Time: 05:09 4 05/23 03:37 Order name: Magnesium; Complete Time: 05:09 4 05/23 03:37 Order name: NT PRO-BNP; Complete Time: 05:09 4 05/23 03:37 Order name: PT-INR; Complete Time: 05:09 4 05/23 03:37 Order name: Troponin HS; Complete Time: 05:09 4 05/23 03:37 Order name: Alcohol Level; Complete Time: 05:09 4 05/23 03:37 Order name: XRAY Chest (1 view) [facility] 05/23 03:37 Order name: Cardiac monitoring; Complete Time: 03:45 4 05/23 03:37 Order name: EKG - Nurse/Tech; Complete Time: 03:45 [facility] 05/23 03:37 Order name: IV Saline Lock; Complete Time: 04:16 [facility] 05/23 03:37 Order name: Labs collected and sent; Complete Time: 04:16 sp4 05/23 03:37 Order name: O2 Per Protocol; Complete Time: 03:45 sp4 05/23 03:37 Order name: O2 Sat Monitoring; Complete Time: 03:45 sp4 EC:14 Rate is 90 beats/min. Rhythm is regular, Normal Sinus Rhythm. QRS [place] is Normal. SC sp4 interval is normal. QRS interval is normal. QT interval is normal. No Q waves. T waves are Normal. No ST changes noted. Clinical impression: Normal ECG. Interpreted by me. Reviewed by me. Administered Medications: 04:16 Drug: Ativan IVP 1 mg IVP once Route: IVP; Site: right antecubital; jw7 05:39 Follow up: Response: No adverse reaction; Marked relief of symptoms jw7 04:17 Drug: Ondansetron IVP 4 mg IVP once; over 2 minutes Route: IVP; Site: right antecubital;jw7 05:39 Follow up: Response: No adverse reaction; Marked relief of symptoms jw7 06:26 Follow up: Response: No adverse reaction kd4 04:17 Drug: Promethazine PO 25 mg PO once Route: PO; jw7 05:39 Follow up: Response: No adverse reaction; Marked relief of symptoms jw7 06:26 Follow up: Response: No adverse reaction kd4 04:55 Drug: Banana Bag - (Multivitamin IV 1 amp, NS 0.9% IV 1000 ml, Thiamine IV 100 mg, jw7 foLIC Acid IVPB 1 mg) IV at calculated rate once Route: IV; Rate: calculated rate; Site: right antecubital; 06:26 Follow up: IV Status: Completed infusion kd4 Disposition Summary: 05/23/24 05:23 Discharge Ordered Notes: Location: Home sp4 Problem: new sp4 Symptoms: have improved sp4 Condition: Stable sp4 Diagnosis - Chest pain, unspecified sp4 - Anxiety disorder, unspecified sp4 Followup: sp4 - With: Private Physician - When: 7 - 10 days - Reason: Recheck today's complaints Discharge Instructions: - Discharge Summary Sheet sp4 - Managing Anxiety, Adult sp4 Forms: - Patient Portal Instructions sp4 Prescriptions: - Ativan 1 mg Oral tablet - take 1 tablet ORAL route once daily As needed PRN anxiety; 15 tablet; Refills: sp4 0, Product Selection Permitted Signatures: Dispatcher [employer] EDMS Oraila Momin RN RN jw7 Rene Pearson MD MD sp4 [facility] kd4 Corrections: (The following items were deleted from the chart) 03:37 03:37 BASIC METABOLIC PANEL+C.LAB.BRZ ordered. EDMS EDMS 03:37 03:37 CBC+H.LAB.BRZ ordered. EDMS EDMS 03:37 03:37 HEPATIC FUNCTION+C.LAB.BRZ ordered. EDMS EDMS 03:37 03:37 MAGNESIUM+C.LAB.BRZ ordered. EDMS EDMS 03:37 03:37 PROBNP+C.LAB.BRZ ordered. EDMS EDMS 03:37 03:37 PROTIME (+INR)+COAG.LAB.BRZ ordered. EDMS EDMS 03:37 03:37 Troponin High Sensitivity+C.LAB.BRZ ordered. EDMS EDMS 03:37 03:37 Chest Single View+RAD.RAD.BRZ ordered. EDMS EDMS 03:37 03:37 ETHANOL+C.LAB.BRZ ordered. EDMS EDMS
--- NOTE | 2024-05-23 05:24 | ER ---
Nurse's Notes [facility] Name: Gabrielle Plata Age: 43 yrs Sex: Female : 1980 Arrival Date: 05/23/2024 Time: 03:28 Bed 3 Private MD: Diagnosis: Chest pain, unspecified;Anxiety disorder, unspecified Presentation: 05/23 03:40 Chief complaint: Patient states: I woke up with CP and a racing heart, the pain jw7 radiates to the left side of my neck/face and down my left arm. I'm also having some tingling and numbness to my left hand. Coronavirus screen: At this time, the client does not indicate any symptoms associated with coronavirus-19. Ebola Screen: No symptoms or risks identified at this time. Initial Sepsis Screen: Does the patient meet any 2 criteria? No. Patient's initial sepsis screen is negative. Does the patient have a suspected source of infection? No. Patient's initial sepsis screen is negative. Risk Assessment: Do you want to hurt yourself or someone else? Patient reports no desire to harm self or others. Onset of symptoms was May 23, 2024. 03:40 Method Of Arrival: EMS: [facility] jw7 03:40 Acuity: CATHIE 3 jw7 Triage Assessment: 03:40 General: Appears in no apparent distress. uncomfortable, Behavior is cooperative, jw7 appropriate for age, anxious. 03:40 Pain: Complains of pain in chest Pain radiates to left arm, left shoulder, neck, left jw7 hand Pain currently is 7 out of 10 on a pain scale. Quality of pain is described as pressure, sharp, tingling, numb, Pain began suddenly, Is intermittent. EENT: No deficits noted. No signs and/or symptoms were reported regarding the EENT system. Neuro: Level of Consciousness is awake, alert, obeys commands, Oriented to person, place, time, situation, Appropriate for age. Cardiovascular: Heart tones S1 S2 present Capillary refill < 3 seconds Clubbing of nail beds is absent JVD is absent Patient's skin is warm and dry. Respiratory: Airway is patent Trachea midline Respiratory effort is even, unlabored, Respiratory pattern is regular, symmetrical. GI: Abdomen is flat, non-distended, Bowel sounds present X 4 quads. Abd is soft and non tender X 4 quads. : No deficits noted. No signs and/or symptoms were reported regarding the genitourinary system. Derm: Skin is intact, is healthy with good turgor, Skin is dry, Skin is normal, Skin temperature is warm. Musculoskeletal: Circulation, motion, and sensation intact. Range of motion: intact in all extremities. CAUSTIC OPERATOR: 03:40 LMP 05/08/2024, unknown jw7 Historical: - Allergies: 04:19 cefepime; jw7 04:19 Codeine; jw7 04:19 Demerol; jw7 04:19 Sulfa (Sulfonamide Antibiotics); jw7 04:19 Tramadol HCl; jw7 04:19 Ultram; jw7 04:19 Flagyl; jw7 - Home Meds: 04:19 None [Active]; jw7 - PMHx: 04:19 Anxiety; Crohn's Disease; Gretta Parikh tears; MRSA; PTSD (MRSA); jw7 - PSHx: 04:19 abdominal surgery due to foreign object; bladder surgery; breast augmentation; tubal jw7 ligation; urethra surgery; Cholecystectomy; - Immunization history:: Adult Immunizations up to date, Client reports having NOT received the Covid vaccine. Flu vaccine is not up to date. - Infectious Disease History:: Denies. - Social history:: Smoking status: Patient reports the use of cigarette tobacco products, denies chronic smoking, but will smoke occasionally, Patient uses alcohol, occasionally. Patient/guardian denies using street drugs, IV drugs. - Family history:: not pertinent. Screenin:40 [facility] ED Fall Risk Assessment (Adult) History of falling in the last 3 months, jw7 including since admission No falls in past 3 months (0 pts) Confusion or Disorientation No (0 pts) Intoxicated or Sedated No (0 pts) Impaired Gait No (0 pts) Mobility Assist Device Used No (0 pt) Altered Elimination No (0 pt) Score/Fall Risk Level 0 - 2 = Low Risk Oriented to surroundings, Maintained a safe environment, Educated pt \T\ family on fall prevention, incl call for assistance when getting out of bed. Abuse screen: Denies threats or abuse. Denies injuries from another. Nutritional screening: No deficits noted. Tuberculosis screening: No symptoms or risk factors identified. Assessment: 03:40 General: See Triage Assessment. jw7 04:30 Reassessment: Patient appears in no apparent distress at this time. No changes from jw7 previously documented assessment. Patient and/or family updated on plan of care and expected duration. Pain level reassessed. Patient is alert, oriented x 3, equal unlabored respirations, skin warm/dry/pink. 05:23 General: Discharge pending completion of IV Fluids, Per Provider's orders. . jw7 05:37 Reassessment: Patient appears in no apparent distress at this time. Patient and/or jw7 family updated on plan of care and expected duration. Pain level reassessed. Patient is alert, oriented x 3, equal unlabored respirations, skin warm/dry/pink. Patient states feeling better. Patient states symptoms have improved. Vital Signs: 03:40 BP 163 / 93; Pulse 95; Resp 20; Temp 99; Pulse Ox 98% ; Weight 56.7 kg; Height 5 ft. 0 jw7 in. ; Pain 7/10; 04:00 BP 152 / 95; Pulse 83; Resp 16 S; Pulse Ox 99% on R/A; jw7 05:00 BP 118 / 78; Pulse 82; Resp 17 S; Pulse Ox 96% on R/A; jw7 06:24 BP 131 / 84; Pulse 79; Resp 18; Temp 98.8; Pulse Ox 98% on R/A; Pain 0/10; kd4 03:40 Body Mass Index 24.41 (56.70 kg, 152.4 cm) jw7 03:40 Pain Scale: Adult jw7 06:24 Pain Scale: Adult kd4 ED Course: 03:34 Patient arrived in ED. gm2 03:36 Rene Pearson MD is Attending Physician. sp4 03:40 O2 via RA. jw7 03:40 Arm band placed on. jw7 03:40 Patient has correct armband on for positive identification. Bed in low position. Call [facility] light in reach. Side rails up X2. Provided Education on: Use of Call Light. Client placed on continuous cardiac and pulse oximetry monitoring. NIBP monitoring applied. manager monitoring on. Pulse ox on. NIBP on. 03:47 XRAY Chest (1 view) In Process Unspecified. EDMS 04:00 Initial lab(s) drawn, by me, sent to lab. Inserted saline lock: 22 gauge in right jw7 antecubital area, using aseptic technique. Blood collected. 04:19 Triage completed. jw7 04:25 No provider procedures requiring assistance completed. jw7 06:25 IV discontinued. kd4 Administered Medications: 04:16 Drug: Ativan IVP 1 mg IVP once Route: IVP; Site: right antecubital; jw7 05:39 Follow up: Response: No adverse reaction; Marked relief of symptoms jw7 04:17 Drug: Ondansetron IVP 4 mg IVP once; over 2 minutes Route: IVP; Site: right antecubital;jw7 05:39 Follow up: Response: No adverse reaction; Marked relief of symptoms jw7 06:26 Follow up: Response: No adverse reaction kd4 04:17 Drug: Promethazine PO 25 mg PO once Route: PO; jw7 05:39 Follow up: Response: No adverse reaction; Marked relief of symptoms jw7 06:26 Follow up: Response: No adverse reaction kd4 04:55 Drug: Banana Bag - (Multivitamin IV 1 amp, NS 0.9% IV 1000 ml, Thiamine IV 100 mg, jw7 foLIC Acid IVPB 1 mg) IV at calculated rate once Route: IV; Rate: calculated rate; Site: right antecubital; 06:26 Follow up: IV Status: Completed infusion kd4 Medication: 04:25 VIS not applicable for this client. jw7 Outcome: 05:23 Discharge ordered by . florentino 06:25 Discharged to home ambulatory, kd4 06:25 Condition: stable 06:25 Discharge instructions given to patient, Instructed on discharge instructions, Demonstrated understanding of instructions, follow-up care, medications, Prescriptions given X 1, 06:26 Patient left the ED. kd4 Signatures: Dispatcher [employer] EDMS Oralia Momin RN RN jw7 Rene Pearson MD MD sp4 Mitchell, Ginger 2 Luz Elena James RN RN kd4
[2024-05-23 06:44] VITALS: BP 131/84; TEMP 98.8; O2SAT 98
--- NOTE | 2024-05-25 10:37 | RAD REPORT ---
EXAM DESCRIPTION: RAD - Chest Single View - 05/23/2024 3:45 am CLINICAL HISTORY: CHEST PAIN COMPARISON: Chest x-ray 09/30/2023 TECHNIQUE: Single AP view of the chest. FINDINGS: Lung volumes adequate. Cardiac silhouette is normal in size. No pneumothorax. No large pleural effusion. No focal consolidation. No acute bony finding. IMPRESSION: No evidence of acute cardiopulmonary disease. Electronically signed by: Keisha Larkin MD 05/23/2024 05:32 AM CDT Z9 Due to temporary technical issues with the PACS/Fluency reporting system, reports are being signed by the in house radiologists without review as a courtesy to insure prompt reporting. The interpreting radiologist is fully responsible for the content of the report.
--- NOTE | 2024-05-25 13:09 | EKG ---
Test Date: 2024-05-23 Test Time: 03:38:03 Literacy Consultant: MAGED MEASUREMENT RESULTS: Intervals: Rate: 90 CT: 148 QRSD: 78 QT: 364 QTc: 445 [place]: P: 77 CT: 148 QRS: 72 T: 52 INTERPRETIVE STATEMENTS: Normal sinus rhythm Normal ECG Compared to ECG 02/19/2024 11:59:54 No significant changes Electronically Signed On 05-25-24 13:03:58 CDT by Saleem Sofia
== END 2024-05-23 06:26 | disposition home or self-care (01) ==
LOC: ER 03:28
DX: R07.9 Chest pain, unspecified (principal); F41.9 Anxiety disorder, unspecified
CPT/HCPCS: 96365; 85025; 80048; 36415; 83735; 85610; 80076; 84484; 83880; 71045; 96375; 99285; 96366; 82077; J3411; Q0169; J2405; J7030; 93005

== ENCOUNTER 2024-07-07 17:26 | Emergency (ER) | payer OTHER ==
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
[2024-07-08 07:20] VITALS: BP 109/67; TEMP 98; O2SAT 97
== END 2024-07-07 19:32 | disposition home or self-care (01) ==
LOC: ER 17:26
DX: F10.129 Alcohol abuse with intoxication, unspecified (principal)

== ENCOUNTER 2024-07-30 17:37 | Emergency (ER) | payer OTHER ==
[2024-07-30] MEDS ORDERED: NA CHLORIDE 0.9% 0 ML ONE (18:08)
[2024-07-30] MEDS ORDERED: NA CHLORIDE 0.9% 100 ML ONE (18:09)
[2024-07-30] MEDS ORDERED: LEVETIRACETAM 500 MG/5 ML VIAL IV ONE (18:09)
[2024-07-30] MEDS ORDERED: LORazepam 2 MG/ML VIAL ONE (18:22)
[2024-07-30 18:43] LABS: Absolute Basophils 0.1 K/uL (0-0.5); Absolute Eosinophils 0.4 K/uL (0-0.5); Absolute Lymphocytes (CBC) 2.9 K/uL (0.7-4.9); Absolute Monocytes 0.4 K/uL (0.1-1.3); Absolute Neutrophil 7.1 K/uL (1.8-8.0); Basophils % 1.2 % (0-1.3); Eosinophils % 3.6 % (0-4.4); Hematocrit 42.3 % (36.0-45.0); Hemoglobin 14.4 g/dL (12.0-15.0); Lymphocytes % 26.3 % (15.3-44.8); MCH 31.6 pg (27.0-35.0); MPV 7.6 fL (7.6-11.3); Neutrophils % 64.9 % (41.7-73.7); Nucleated Red Blood Cells % 0.1 % (0-0); Platelets 322 thou/uL (152-406); RBC Red Blood Cell Count 4.54 M/uL (3.86-4.86); Red Cell Distribution Width 13.1 % (12.1-15.2)
[2024-07-30 18:54] LABS: PTT, Activated Partial Thromb 27.7 SECONDS (24.3-36.9); Protime INR 0.98
[2024-07-30] MEDS ORDERED: PROMETHAZINE INJ 25 MG/ML AMP ONE (18:56)
[2024-07-30 19:02] LABS: Anion Gap 12.9 mEq/L (5.0-15.0)
[2024-07-30 19:09] LABS: Potassium 3.9 mEq/L (3.5-5.1)
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
[2024-07-30 21:59] LABS: Barbiturates NEGATIVE (NEGATIVE); Benzodiazepines POSITIVE (NEGATIVE); Cocaine NEGATIVE (NEGATIVE); METHAMPHETAM NEGATIVE (NEGATIVE); Methadone NEGATIVE (NEGATIVE); Opiates NEGATIVE (NEGATIVE); Phencyclidine NEGATIVE (NEGATIVE); THC Cannibis NEGATIVE (NEGATIVE)
[2024-07-30 22:02] LABS: Specific Gravity 1.005 (1.005-1.030); Sqamous Epithelial <5 /HPF (None Seen); Urine Bacteria <20 /HPF (<20); Urine Bilirubin NEGATIVE (Negative); Urine Blood 2+ (Negative); Urine Clarity Extremely Turbid (Clear); Urine Color Colorless (Yellow); Urine Culture Reflex Order NOT NEEDED; Urine Glucose NEGATIVE (Negative); Urine Ketones NEGATIVE (Negative); Urine Microscopic Reflex YN ORDER UMIC; Urine Mucus Slight /HPF (None Seen); Urine Nitrite NEGATIVE (Negative); Urine Protein NEGATIVE (Negative); Urine RBC <5 /HPF (None Seen); Urine Urobilinogen Normal (Normal); Urine WBC Clump Rare /HPF (None Seen)
[2024-07-30] MEDS ORDERED: NA CHLORIDE 0.9% 1,000 ML ONE ×2 (22:24→22:31)
[2024-07-30] MEDS ORDERED: THIAMINE 200 MG/2 ML INJ ONE (22:24)
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
[2024-07-31 04:09] VITALS: TEMP 99
[2024-07-31 04:23] VITALS: O2SAT 99
[2024-07-31 04:24] VITALS: BP 109/78
== END 2024-07-31 03:42 | disposition home or self-care (01) ==
LOC: ER 17:37
DX: G40.909 Epilepsy, unspecified, not intractable, without status epilepticus (principal); F10.129 Alcohol abuse with intoxication, unspecified; V49.49XA Driver injured in collision with other motor vehicles in traffic accident, initial encounter; F17.210 Nicotine dependence, cigarettes, uncomplicated; Z98.82 Breast implant status
CPT/HCPCS: 85025; 81001; 80048; 36415; 82550; 85610; 83605 ×2; 85730; 80307; 70450; 71250; 72125; 96372; 99285; 82077; J2550; J3411; J1953; J7030 ×2

== ENCOUNTER 2024-08-18 23:00 | Emergency (ER) | payer OTHER ==
--- NOTE | 2024-08-18 23:12 | EDPHYS ---
Physician Documentation [facility] Name: Gabrielle Plata Age: 43 yrs Sex: Female : 1980 Arrival Date: 08/18/2024 Time: 23:00 Bed 4 Private MD: ED Physician Rene Pearson HPI: 08/18 23:10 This 43 yrs old Female presents to ER via EMS with complaints of Probable sp4 Seizure. 23:13 Patient is 43-year-old female presents with acute panic attack associated with tremors sp4 and flailing arm movements. EMS reported patient was adamant possible seizure and they administered 2 mg Ativan IM . Patient on arrival presents with signs of acute panic attack flailing her arms and having generalized tremor. 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 - Infectious Disease History:: Denies. - Social history:: Smoking status: Patient reports the use of cigarette tobacco products, 1 pack every 1.5-2 weeks. - Family history:: not pertinent. ROS: 23:13 Constitutional: Negative for fever, chills, and weight loss, positive anxiety, sp4 positive tremor Eyes: Negative for injury, pain, redness, and discharge, 23:13 All other systems are negative, Exam: 23:13 Constitutional: This is a well developed, well nourished patient who is awake, alert, sp4 and in no acute distress. Head/Face: Normocephalic, atraumatic. Eyes: Pupils equal round and reactive to light, extra-ocular motions intact. Lids and lashes normal. Conjunctiva and sclera are not injected. Cornea within normal limits. Periorbital areas with no swelling, redness, or edema. ENT: Nares patent. No nasal discharge, no septal abnormalities noted. Tympanic membranes are normal and external auditory canals are clear. Oropharynx with no redness, swelling, or masses, exudates, or evidence of obstruction, uvula midline. Mucous membranes moist. Neck: Trachea midline, no thyromegaly or masses palpated, and no cervical lymphadenopathy. Supple, full range of motion without nuchal rigidity, or vertebral point tenderness. Chest/axilla: Normal chest wall appearance and motion. Nontender with no deformity. No lesions are appreciated. Cardiovascular: Regular rate and rhythm with a normal S1 and S2. No gallops, murmurs, or rubs. Normal PMI, no JVD. No pulse deficits. Respiratory: Lungs have equal breath sounds bilaterally, clear to auscultation and percussion. No rales, rhonchi or wheezes noted. No increased work of breathing, no retractions or nasal flaring. Abdomen/GI: Soft, with normal bowel sounds. No distension or tympany. No guarding or rebound. No evidence of tenderness throughout. Back: No spinal tenderness. No costovertebral tenderness. Skin: Warm, dry with normal turgor. Normal color with no rashes, no lesions, and no evidence of cellulitis. MS/ Extremity: Pulses equal, no cyanosis. Neurovascular intact. Full, normal range of motion. Neuro: Awake and alert, GCS 15, oriented to person, place, time, and situation. Cranial nerves II-XII grossly intact. Motor strength 5/5 in all extremities. Sensory grossly intact. Psych: Awake, alert, with orientation to person, place and time. Appears anxious 23:15 ECG was reviewed by the Attending Physician. EKG at 2303 sinus tachycardia at 108 sp4 otherwise normal Vital Signs: 23:04 BP 137 / 93; Pulse 111; Resp 18; Temp 98.3; Pulse Ox 97% ; Weight 59.87 kg (M); Height vc1 4 ft. 11 in. ; Pain 0/10; 23:22 BP 110 / 94; Pulse 104; Resp 18; Temp 98.3; Pulse Ox 100% ; Pain 2/10; bm8 23:04 Body Mass Index 26.66 (59.87 kg, 149.86 cm) vc1 23:04 Pain Scale: Adult vc1 23:22 Pain Scale: Adult bm8 [place] Coma Score: 23:08 Eye Response: spontaneous(4). Motor Response: obeys commands(6). Verbal Response: bm8 oriented(5). Total: 15. 23:13 Eye Response: spontaneous(4). Motor Response: obeys commands(6). Verbal Response: sp4 oriented(5). Total: 15. 23:24 Eye Response: spontaneous(4). Motor Response: obeys commands(6). Verbal Response: bm8 oriented(5). Total: 15. MDM: 23:11 Patient medically screened. sp4 23:16 Differential diagnosis: cerebral vascular accident, cardiac arrhythmia, seizure, . Data sp4 reviewed: vital signs, nurses notes, EMS record, old medical records, EKG. ED course: Stable for discharge home . EC:15 Rate is 108 beats/min. Rhythm is regular, Sinus tachycardia. QRS [place] is Normal. [place] sp4 interval is normal. QRS interval is normal. QT interval is normal. No Q waves. T waves are Normal. No ST changes noted. Clinical impression: No evidence of ischemia. Interpreted by me. Reviewed by me. Administered Medications: 23:20 Drug: Ondansetron PO 8 mg PO once Route: PO; bm8 23:25 Follow up: Response: No adverse reaction bm8 Disposition Summary: 08/18/24 23:11 Discharge Ordered Notes: Location: Home sp4 Problem: new sp4 Symptoms: have improved sp4 Condition: Stable sp4 Diagnosis - Anxiety disorder, unspecified sp4 - Acute anxiety attack sp4 Followup: sp4 - With: Private Physician - When: As needed - Reason: Discharge Instructions: - Discharge Summary Sheet sp4 - Panic Attack sp4 Forms: - Patient Portal Instructions sp4 Signatures: Marion Wang RN RN vc1 Rene Pearson MD MD sp4 Choco Limon RN RN bm8
--- NOTE | 2024-08-18 23:12 | ER ---
Nurse's Notes [facility] Name: Gabrielle Plata Age: 43 yrs Sex: Female : 1980 Arrival Date: 08/18/2024 Time: 23:00 Bed 4 Private MD: Diagnosis: Anxiety disorder, unspecified;Acute anxiety attack Presentation: 08/18 23:04 Chief complaint: EMS states: Patient states she's been having seizures all day. vc1 Coronavirus screen: Client denies travel out of the [place] in the last 14 days. At this time, the client does not indicate any symptoms associated with coronavirus-19. Ebola Screen: Patient negative for fever greater than or equal to 101.5 degrees Fahrenheit, and additional compatible Ebola Virus Disease symptoms Patient denies exposure to infectious person. Patient denies travel to an Ebola-affected area in the 21 days before illness onset. No symptoms or risks identified at this time. Initial Sepsis Screen: Does the patient meet any 2 criteria? No. Patient's initial sepsis screen is negative. Does the patient have a suspected source of infection? No. Patient's initial sepsis screen is negative. Risk Assessment: Do you want to hurt yourself or someone else? Patient reports no desire to harm self or others. Onset of symptoms was August 18, 2024. Care prior to arrival: Medication(s) given: Ativan 2mg IV initiated. 20 GA, in the right hand. Activity prior to arrival: None. Mechanism of Injury: No Mechanism of Injury. Transition of care: patient was not received from another setting of care. 23:04 Method Of Arrival: EMS: [facility] vc1 23:04 Acuity: CATHIE 4 vc1 Triage Assessment: 23:12 General: Appears in no apparent distress. slender, unkempt, Behavior is cooperative, vc1 crying. Pain: Complains of pain in jaw. EENT: No deficits noted. No signs and/or symptoms were reported regarding the EENT system. Neuro: Level of Consciousness is awake, alert, obeys commands, Oriented to person, place, time, situation, Appropriate for age. Neuro: Reports tremors. Seizure activity pt reports, no seizure activity noted by EMS. Cardiovascular:. Respiratory: Airway is patent Respiratory effort is even, unlabored, Respiratory pattern is regular, symmetrical. GI: Abdomen is flat, non-distended. : No deficits noted. No signs and/or symptoms were reported regarding the genitourinary system. Derm: Skin is intact, is healthy with good turgor, Skin is dry, Skin is normal, Skin temperature is warm. Musculoskeletal: Circulation, motion, and sensation intact. Range of motion: intact in all extremities. 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 - Infectious Disease History:: Denies. - Social history:: Smoking status: Patient reports the use of cigarette tobacco products, 1 pack every 1.5-2 weeks. - Family history:: not pertinent. Screenin:11 [facility] ED Fall Risk Assessment (Adult) History of falling in the last 3 months, vc1 including since admission Yes- fall prone (multiple falls) (3 pts) Confusion or Disorientation No (0 pts) Intoxicated or Sedated Yes (3 pts) Impaired Gait No (0 pts) Mobility Assist Device Used No (0 pt) Altered Elimination No (0 pt) Score/Fall Risk Level 0 - 2 = Low Risk Oriented to surroundings, Maintained a safe environment, Educated pt \T\ family on fall prevention, incl call for assistance when getting out of bed. Abuse screen: Denies threats or abuse. Nutritional screening: No deficits noted. Tuberculosis screening: No symptoms or risk factors identified. Assessment: 23:08 General: Appears in no apparent distress. comfortable, Behavior is calm, cooperative, bm8 appropriate for age, crying. Pain: Complains of pain in jaw Pain currently is 5 out of 10 on a pain scale. Neuro: No deficits noted. 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 Full function Speech is normal, Facial symmetry appears normal, Pupils are PERRLA, Pupil Size: 4 mm Intact Reports headache. Cardiovascular: Capillary refill < 3 seconds in bilateral fingers toes Patient's skin is warm and dry. Rhythm is sinus tachycardia. Respiratory: Airway is patent Respiratory effort is even, unlabored, Respiratory pattern is regular, symmetrical, Breath sounds are clear bilaterally. GI: No signs and/or symptoms were reported involving the gastrointestinal system. : No signs and/or symptoms were reported regarding the genitourinary system. EENT: No signs and/or symptoms were reported regarding the EENT system. Derm: No signs and/or symptoms reported regarding the dermatologic system. Musculoskeletal: No signs and/or symptoms reported regarding the musculoskeletal system. Vital Signs: 23:04 BP 137 / 93; Pulse 111; Resp 18; Temp 98.3; Pulse Ox 97% ; Weight 59.87 kg (M); Height vc1 4 ft. 11 in. ; Pain 0/10; 23:22 BP 110 / 94; Pulse 104; Resp 18; Temp 98.3; Pulse Ox 100% ; Pain 2/10; bm8 23:04 Body Mass Index 26.66 (59.87 kg, 149.86 cm) vc1 23:04 Pain Scale: Adult vc1 23:22 Pain Scale: Adult bm8 Nancy Coma Score: 23:08 Eye Response: spontaneous(4). Motor Response: obeys commands(6). Verbal Response: bm8 oriented(5). Total: 15. 23:13 Eye Response: spontaneous(4). Motor Response: obeys commands(6). Verbal Response: sp4 oriented(5). Total: 15. 23:24 Eye Response: spontaneous(4). Motor Response: obeys commands(6). Verbal Response: bm8 oriented(5). Total: 15. ED Course: 23:04 Patient arrived in ED. vc1 23:07 Choco Limon, RN is Primary Nurse. bm8 23:08 Triage completed. vc1 23:08 Patient has correct armband on for positive identification. Bed in low position. Side bm8 rails up X 1. Seizure precautions initiated. Client placed on continuous cardiac and pulse oximetry monitoring. NIBP monitoring applied. Door closed. Noise minimized. Warm blanket given. Pillow given. Verbal reassurance given. Head of bed elevated. 23:08 No provider procedures requiring assistance completed. Maintain EMS IV. Dressing bm8 intact. Good blood return noted. Site clean \T\ dry. Gauge \T\ site: 22 r hand. Patient maintains SpO2 saturation greater than 95% on room air. 23:10 Rene Pearson MD is Attending Physician. sp4 23:11 Arm band placed on left wrist. vc1 23:12 Patient has correct armband on for positive identification. Call light in reach. vc1 quality assurance monitor on. Pulse ox on. NIBP on. 23:24 Provided Education on: post er care. bm8 23:24 IV discontinued, intact, bleeding controlled, No redness/swelling at site. Pressure bm8 dressing applied. Administered Medications: 23:20 Drug: Ondansetron PO 8 mg PO once Route: PO; bm8 23:25 Follow up: Response: No adverse reaction bm8 Medication: 23:08 VIS not applicable for this client. bm8 Outcome: 23:11 Discharge ordered by . sp4 23:23 Discharged to home ambulatory, bm8 23:23 Condition: stable 23:23 Discharge instructions given to patient, Instructed on discharge instructions, follow up and referral plans. medication usage, safety practices, Demonstrated understanding of instructions, follow-up care, medications, 23:38 Patient left the ED. bm8 Signatures: Marion Wang RN RN vc1 Rene Pearson MD MD sp4 Choco Limon RN RN bm8
[2024-08-18] MEDS ORDERED: ONDANSETRON 4 MG (ODT) TAB ONE (23:18)
[2024-08-18 23:43] VITALS: TEMP 98.3
[2024-08-18 23:44] VITALS: BP 110/94; O2SAT 100
--- NOTE | 2024-08-20 12:22 | EKG ---
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
== END 2024-08-18 23:38 | disposition home or self-care (01) ==
LOC: ER 23:00
DX: F41.0 Panic disorder [episodic paroxysmal anxiety] (principal); Z72.0 Tobacco use; Z98.82 Breast implant status
CPT/HCPCS: 93005; 99284; Q0162

== ENCOUNTER 2024-11-26 11:07 | Emergency (ER) | payer OTHER ==
[2024-11-26] MEDS ORDERED: NA CHLORIDE 0.9% 1,000 ML ONE (11:26)
[2024-11-26] MEDS ORDERED: NA CHLORIDE 0.9% 100 ML ONE (11:26)
[2024-11-26] MEDS ORDERED: LEVETIRACETAM 500 MG/5 ML VIAL IV ONE (11:26)
[2024-11-26 11:52] LABS: Absolute Basophils 0.1 K/uL (0-0.5); Absolute Eosinophils 0.2 K/uL (0-0.5); Absolute Monocytes 0.4 K/uL (0.1-1.3); Absolute Neutrophil 6.5 K/uL (1.8-8.0); Basophils % 1.1 % (0-1.3); Eosinophils % 1.8 % (0-4.4); Hemoglobin 12.5 g/dL (12.0-15.0); Lymphocytes % 21.4 % (15.3-44.8); MCH 32.6 pg (27.0-35.0); MCHC 34.6 g/dL (32.0-36.0); MCV 94.1 fL (80-100); MPV 7.8 fL (7.6-11.3); Monocytes % 4.5 % (3.3-12.3); Neutrophils % 71.2 % (41.7-73.7); Platelets 255 thou/uL (152-406); RBC Red Blood Cell Count 3.82 M/uL (3.86-4.86); Red Cell Distribution Width 13.9 % (12.1-15.2)
[2024-11-26 12:36] LABS: Sqamous Epithelial <5 /HPF (None Seen); Urine Bacteria <20 /HPF (<20); Urine Culture Reflex Order NOT NEEDED; Urine RBC <5 /HPF (None Seen); Urine WBC None Seen /HPF (<5)
[2024-11-26 12:42] LABS: Barbiturates NEGATIVE (NEGATIVE); Benzodiazepines POSITIVE (NEGATIVE); Cocaine NEGATIVE (NEGATIVE); METHAMPHETAM NEGATIVE (NEGATIVE); Methadone NEGATIVE (NEGATIVE); Opiates NEGATIVE (NEGATIVE); Phencyclidine NEGATIVE (NEGATIVE); THC Cannibis NEGATIVE (NEGATIVE)
[2024-11-26 12:43] LABS: Specific Gravity 1.006 (1.005-1.030); Urine Bilirubin NEGATIVE (Negative); Urine Blood Negative (Negative); Urine Clarity Turbid (Clear); Urine Color Colorless (Yellow); Urine Glucose NEGATIVE (Negative); Urine Ketones NEGATIVE (Negative); Urine Microscopic Reflex YN NO UMIC; Urine Nitrite NEGATIVE (Negative); Urine Protein NEGATIVE (Negative); Urine Urobilinogen Normal (Normal); Urine pH 6.5 (5.0-7.0)
[2024-11-26 12:50] LABS: Albumin 2.9 g/dL (3.4-5.0); Anion Gap 7.3 mEq/L (5.0-15.0); Bilirubin Total 0.2 mg/dL (0.2-1.0); Globulin 2.8 g/dL (2.3-3.5); Magnesium 2.1 mg/dL (1.6-2.4); Potassium 4.3 mEq/L (3.5-5.1); Protein, Total 5.7 g/dL (6.4-8.2); Troponin High Sensitivity 3.6 pg/mL (<58.9)
--- NOTE | 2024-11-26 14:08 | EDPHYS ---
Physician Documentation [facility] Name: Gabrielle Plata Age: 44 yrs Sex: Female : 1980 Arrival Date: 11/26/2024 Time: 11:07 Bed 3 Private MD: ED Physician Deysi Hernandez HPI: 11/26 11:19 This 44 yrs old Female presents to ER via EMS with complaints of Seizure. sd2 11:20 44 yo F presents via EMS with CC of seizure. hx of epilepsy on Vimpat and Keppra per sd2 records on her medical bracelet. Had multiple seizures en route requiring 2 mg of Ativan IM and a total of 7.5 mg of Versed. Pt is drowsy but awakens and is able to follow commands. However, she does appear still confused. Reports she is to see her neurologist next month and that she has not been taking her medications because she does not like the way they make her feel. Reports last seizure 2 weeks ago and that she hasn't been taking her medications for anywhere from 2 weeks to 3 years as this is unclear and she gives many different answers.. Historical: - Allergies: 11:08 cefepime; ld1 11:08 Codeine; ld1 11:08 Demerol; ld1 11:08 Flagyl; ld1 11:08 Tramadol HCl; ld1 11:08 Ultram; ld1 11:08 Sulfa (Sulfonamide Antibiotics); ld1 - PMHx: 11:08 Anxiety; Crohn's Disease; Gretta Parikh tears; MRSA; PTSD (MRSA); ld1 - PSHx: 11:08 abdominal surgery due to foreign object; bladder surgery; breast augmentation; tubal ld1 ligation; Cholecystectomy; urethra surgery; - Immunization history:: Adult Immunizations Adult Immunizations up to date. - Infectious Disease History:: Denies. - Social history:: Smoking status: Patient denies any tobacco usage or history of. ROS: 11:20 Constitutional: Negative for fever, chills, and weight loss, Eyes: Negative for injury, sd2 pain, redness, and discharge, Cardiovascular: Negative for chest pain, palpitations, and edema, Respiratory: Negative for shortness of breath, cough, wheezing. Abdomen/GI: Negative for abdominal pain, nausea, vomiting, diarrhea. Back: Negative for injury and pain, MS/Extremity: Negative for injury and deformity, Skin: Negative for injury, rash, and discoloration, Neuro: Negative for headache, numbness and tingling. Positive for seizure. Exam: 11:20 Constitutional: This is a well developed, well nourished patient who is awake, alert, sd2 and in no acute distress. Head/Face: Normocephalic, atraumatic. Eyes: EOMI, normal conjunctiva bilaterally Neck: Trachea midline, no thyromegaly or masses palpated, and no cervical lymphadenopathy. Supple, full range of motion without nuchal rigidity, or vertebral point tenderness. No Meningismus. Chest/axilla: Normal chest wall appearance and motion. Nontender with no deformity. Cardiovascular: Regular rate and rhythm with a normal S1 and S2. No gallops, murmurs, or rubs. 2+ distal pulses. Respiratory: Lungs have equal breath sounds bilaterally, clear to auscultation and percussion. No rales, rhonchi or wheezes noted. No increased work of breathing, no retractions or nasal flaring. Abdomen/GI: Soft, non-tender, with normal bowel sounds. No guarding or rebound. No evidence of tenderness throughout. Skin: Warm, dry with normal turgor. Normal color with no rashes, no lesions, and no evidence of cellulitis. MS/ Extremity: Pulses equal, no cyanosis. Neurovascular intact. Full, normal range of motion. Neuro: Cranial nerves II-XII grossly intact. Motor strength 5/5 in all extremities. Sensory grossly intact. Psych: Awake, appears post-ictal, GCS 14. Behavior, mood, and affect are within normal limits. Vital Signs: 11:08 BP 113 / 88; Pulse 96; Resp 17; Temp 97.5(TE); Pulse Ox 96% on R/A; Height 5 ft. 5 in. ld1 ; Pain 0/10; 11:22 Weight 59.87 kg; ld1 11:38 BP 96 / 67; Pulse 92; Resp 23; Pulse Ox 97% on R/A; ld1 12:20 BP 95 / 67; Pulse 94; Resp 23; Pulse Ox 100% on R/A; ld1 14:14 BP 106 / 71; Pulse 89; Resp 23; Pulse Ox 99% ; ko1 11:08 Pain Scale: Adult ld1 Nancy Coma Score: 11:08 Eye Response: to pain(2). Motor Response: withdraws from pain(4). Verbal Response: ld1 inappropriate words(3). Total: 9. MDM: 11:08 Medical Screening Exam initiated sd2 11:20 Differential diagnosis: seizure, medication non-compliance, dehydration, drug use among sd2 others. Data reviewed: vital signs, nurses notes, EMS record, lab test result(s), EKG. Historians other than the Patient: EMS: . Care significantly affected by the following chronic conditions: Epilepsy. 14:05 Counseling: I had a detailed discussion with the patient and/or guardian regarding the sd2 historical points, exam findings, and any diagnostic results supporting the discharge/admit diagnosis, lab results, the need for outpatient follow up, to return to the emergency department if symptoms worsen or persist or if there are any questions or concerns that arise at home. ED course: Pt now awake, alert and back to mental baseline. Reports compliance with her Keppra and Lacosamide and she follows up with her neurologist next month at which time they plan to switch her from keppra to another medication as she has been having breakthrough seizures, most recently 3 weeks ago. 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 She is comfortable with plan for dc and outpatient follow up with her neurologist and verbalizes understanding of dc plan and strict return precautions.. 11/26 11:20 Order name: CBC with Diff; Complete Time: 12:38 sd2 11/26 11:20 Order name: CMP; Complete Time: 13:06 sd2 11/26 11:20 Order name: Magnesium; Complete Time: 13:06 sd2 11/26 11:20 Order name: Troponin High Sensitivity; Complete Time: 13:06 sd2 11/26 11:20 Order name: Urinalysis w/ reflexes; Complete Time: 13:06 sd2 11/26 11:20 Order name: UDS; Complete Time: 13:06 sd2 11/26 11:20 Order name: Ethanol; Complete Time: 12:38 sd2 11/26 11:20 Order name: EKG - Nurse/Tech; Complete Time: 11:34 sd2 11/26 12:01 Order name: Misc. Order: recollect green top; Complete Time: 12:20 bc6 Administered Medications: 11:24 Not Given (Physician Discretion): agoekx69 mg/kg PO once; not to exceed 1,500 milligramssd2 11:30 Drug: Keppra IV 1500 mg IV at bolus once Route: IV; Rate: bolus; Site: right hand; ld1 12:20 Follow up: Response: No adverse reaction ld1 14:26 Follow up: Response: No adverse reaction; IV Status: Completed infusion; IV Intake: ko1 250ml 11:33 Drug: NS 0.9% IV 1000 ml IV at 1000 ml once; to be given as a bolus over 60 minutes ld1 Route: IV; Rate: 1000 ml; Site: right hand; 12:20 Follow up: Response: No adverse reaction; IV Status: Completed infusion; IV Intake: ld1 1000ml Disposition Summary: 11/26/24 14:07 Discharge Ordered Problem: an acute exacerbation sd2 Symptoms: have improved sd2 Condition: Stable sd2 Diagnosis - Breakthrough seizure sd2 - Auto-brewery syndrome sd2 Followup: sd2 - With: Private Physician - When: 2 - 3 days - Reason: Recheck today's complaints, Continuance of care, Re-evaluation by your physician Discharge Instructions: - Discharge Summary Sheet sd2 Forms: - Medication Reconciliation Form sd2 - Antibiotic Education sd2 - Prescription Opioid Use sd2 - Patient Portal Instructions sd2 - Leadership Thank You Letter sd2 Signatures: Dispatcher [employer] EDLinette Vincent RN RN ld1 Deysi Hernandez MD MD sd2 Ashley Arias 6 Jonna Lopez RN ko1 Corrections: (The following items were deleted from the chart) 11: 11:20 CBC+H.LAB.BRZ ordered. EDMS EDMS 11:21 11:20 COMPREHENSIVE METABOLIC PANEL+C.LAB.BRZ ordered. EDMS EDMS 11:21 11:20 MAGNESIUM+C.LAB.BRZ ordered. EDMS EDMS 11:21 11:20 Troponin High Sensitivity+C.LAB.BRZ ordered. EDMS EDMS 11:21 11:20 Urinalysis+U.LAB.BRZ ordered. EDMS EDMS 11:21 11:20 URINE DRUG SCREEN+UC.LAB.BRZ ordered. EDMS EDMS 11:21 11:20 ETHANOL+C.LAB.BRZ ordered. EDMS EDMS
--- NOTE | 2024-11-26 14:08 | ER ---
Nurse's Notes [facility] Name: Gabrielle Plata Age: 44 yrs Sex: Female : 1980 Arrival Date: 11/26/2024 Time: 11:07 Bed 3 Private MD: Diagnosis: Breakthrough seizure;Auto-brewery syndrome Presentation: 11/26 11:12 Chief complaint: EMS states: toned out for seizure activity. Coronavirus screen: At ld1 this time, the client does not indicate any symptoms associated with coronavirus-19. Ebola Screen: No symptoms or risks identified at this time. Initial Sepsis Screen: Does the patient meet any 2 criteria? No. Patient's initial sepsis screen is negative. Does the patient have a suspected source of infection? No. Patient's initial sepsis screen is negative. Risk Assessment: Do you want to hurt yourself or someone else? Patient reports no desire to harm self or others. Onset of symptoms was November 26, 2024. Care prior to arrival: Medication(s) given: 7.5 IVP Versed - 2mg IM lorazepam. Activity prior to arrival: seizure. 11:12 Method Of Arrival: EMS: [facility] ld1 11:12 Acuity: CATHIE 2 ld1 Triage Assessment: 11:08 General: Appears in no apparent distress. comfortable, Behavior is quiet. Pain: Unable ld1 to use pain scale. Patient is disoriented. EENT: No signs and/or symptoms were reported regarding the EENT system. Neuro: Level of Consciousness is post ictal. Cardiovascular: Capillary refill < 3 seconds Patient's skin is warm and dry. Respiratory: Airway is patent Respiratory effort is even, unlabored. GI: Abdomen is flat, non-distended. : No signs and/or symptoms were reported regarding the genitourinary system. Derm: No signs and/or symptoms reported regarding the dermatologic system. Musculoskeletal: No signs and/or symptoms reported regarding the musculoskeletal system. Historical: - Allergies: 11:08 cefepime; ld1 11:08 Codeine; ld1 11:08 Demerol; ld1 11:08 Flagyl; ld1 11:08 Tramadol HCl; ld1 11:08 Ultram; ld1 11:08 Sulfa (Sulfonamide Antibiotics); ld1 - PMHx: 11:08 Anxiety; Crohn's Disease; Gretta Parikh tears; MRSA; PTSD (MRSA); ld1 - PSHx: 11:08 abdominal surgery due to foreign object; bladder surgery; breast augmentation; tubal ld1 ligation; Cholecystectomy; urethra surgery; - Immunization history:: Adult Immunizations Adult Immunizations up to date. - Infectious Disease History:: Denies. - Social history:: Smoking status: Patient denies any tobacco usage or history of. Screenin:12 [facility] ED Fall Risk Assessment (Adult) History of falling in the last 3 months, ld1 including since admission No falls in past 3 months (0 pts) Confusion or Disorientation No (0 pts) Intoxicated or Sedated No (0 pts) Impaired Gait No (0 pts) Mobility Assist Device Used No (0 pt) Altered Elimination No (0 pt) Score/Fall Risk Level 0 - 2 = Low Risk Oriented to surroundings, Maintained a safe environment, Educated pt \T\ family on fall prevention, incl call for assistance when getting out of bed, Assessed \T\ reinforced patient's understanding of fall precautions, Provided non-skid footwear, Hourly rounding (assess needs \T\ fall precautionary measures) done, Used ambulatory aids as needed (educated on \T\ assisted with), Used gait belt as appropriate. Abuse screen: Denies threats or abuse. Denies injuries from another. Nutritional screening: No deficits noted. Tuberculosis screening: No symptoms or risk factors identified. Assessment: 11:12 Reassessment: See triage assessment. ld1 11:14 Reassessment: Received patient post ictal from EMS. Respiratory: Airway is patent ld1 Respiratory effort is even, unlabored. Vital Signs: 11:08 BP 113 / 88; Pulse 96; Resp 17; Temp 97.5(TE); Pulse Ox 96% on R/A; Height 5 ft. 5 in. ld1 ; Pain 0/10; 11:22 Weight 59.87 kg; ld1 11:38 BP 96 / 67; Pulse 92; Resp 23; Pulse Ox 97% on R/A; ld1 12:20 BP 95 / 67; Pulse 94; Resp 23; Pulse Ox 100% on R/A; ld1 14:14 BP 106 / 71; Pulse 89; Resp 23; Pulse Ox 99% ; ko1 11:08 Pain Scale: Adult ld1 Nancy Coma Score: 11:08 Eye Response: to pain(2). Motor Response: withdraws from pain(4). Verbal Response: ld1 inappropriate words(3). Total: 9. ED Course: 11:08 Patient arrived in ED. ld1 11:08 Deysi Hernandez MD is Attending Physician. sd2 11:08 Arm band placed on right wrist. ld1 11:12 Patient has correct armband on for positive identification. Placed in gown. Bed in low ld1 position. Call light in reach. Side rails up X2. hospital monitor on. Pulse ox on. NIBP on. Door closed. Noise minimized. Warm blanket given. 11:12 No provider procedures requiring assistance completed. Maintain EMS IV. Dressing ld1 intact. Good blood return noted. Site clean \T\ dry. Gauge \T\ site: 20G RH. 11:14 Triage completed. ld1 11:14 Linette Vargas RN is Primary Nurse. ld1 11:15 Seizure precautions initiated. Provided Education on: meds. ko1 11:47 Ethanol Sent. ld1 11:47 Troponin High Sensitivity Sent. ld1 11:47 Magnesium Sent. ld1 11:47 CMP Sent. ld1 11:47 CBC with Diff Sent. ld1 12:20 UDS Sent. ld1 14:14 Allergy band placed. ko1 14:15 IV discontinued, intact, bleeding controlled, No redness/swelling at site. Pressure ko1 dressing applied. Administered Medications: 11:24 Not Given (Physician Discretion): lfppne75 mg/kg PO once; not to exceed 1,500 milligramssd2 11:30 Drug: Keppra IV 1500 mg IV at bolus once Route: IV; Rate: bolus; Site: right hand; ld1 12:20 Follow up: Response: No adverse reaction ld1 14:26 Follow up: Response: No adverse reaction; IV Status: Completed infusion; IV Intake: ko1 250ml 11:33 Drug: NS 0.9% IV 1000 ml IV at 1000 ml once; to be given as a bolus over 60 minutes ld1 Route: IV; Rate: 1000 ml; Site: right hand; 12:20 Follow up: Response: No adverse reaction; IV Status: Completed infusion; IV Intake: ld1 1000ml Medication: 11:12 VIS not applicable for this client. ld1 Intake: 12:20 IV: 1000ml; Total: 1000ml. ld1 14:26 IV: 250ml; Total: 1250ml. ko1 Outcome: 14:07 Discharge ordered by . sd2 14:19 Discharged to home via wheelchair, with family, ko1 14:19 Condition: improved 14:19 Discharge instructions given to patient, Instructed on discharge instructions, follow up and referral plans. medication usage, Demonstrated understanding of instructions, follow-up care, medications, 14:26 Patient left the ED. ko1 Signatures: Linette Vargas RN RN ld1 Deysi Hernandez MD MD sd2 Jonna Lopez RN RN ko1
[2024-11-26 14:32] VITALS: TEMP 97.5
[2024-11-26 14:37] VITALS: BP 106/71; O2SAT 99
--- NOTE | 2024-11-30 11:22 | EKG ---
Test Date: 2024-11-26 Test Time: 11:11:39 Oral Therapist: DALLIN MEASUREMENT RESULTS: Intervals: Rate: 97 WA: 174 QRSD: 80 QT: 358 QTc: 454 [place]: P: 26 WA: 174 QRS: 61 T: 12 INTERPRETIVE STATEMENTS: Normal sinus rhythm Normal ECG Compared to ECG 08/18/2024 23:03:40 Sinus tachycardia no longer present Electronically Signed On 11-30-24 11:15:59 ETYMOLOGY TEACHER by Gunnar Petty
== END 2024-11-26 14:26 | disposition home or self-care (01) ==
LOC: ER 11:07
DX: G40.909 Epilepsy, unspecified, not intractable, without status epilepticus (principal); M04.9 Autoinflammatory syndrome, unspecified; Z98.82 Breast implant status
CPT/HCPCS: 96365; 93005; 85025; 36415; 83735; 81003; 84484; 80053; 80307; 99285; 96366; 82077; J1953; J7030

== ENCOUNTER 2024-12-19 13:22 | Emergency (ER) | payer OTHER, SELFPAY ==
[2024-12-19 14:29] LABS: SARS-CoV-2 Antigen CONTROL BLUE LINE VIS/BG OK
[2024-12-19 14:30] LABS: SARS-CoV-2 Antigen Rapid Res Positive (Negative)
--- NOTE | 2024-12-19 16:06 | ER ---
Nurse's Notes [facility] Name: Gabrielle Plata Age: 44 yrs Sex: Female : 1980 Arrival Date: 12/19/2024 Time: 13:22 Bed 12 Private MD: Diagnosis: SARS-associated coronavirus as the cause of diseases classified elsewhere;Cough Presentation: 12/19 13:53 Chief complaint: Patient states: GEN MALAISE, MYALGIA, CERVICAL LYMPHADENOPATHY. +FLU bp AND COVID AT HOME TEST. Coronavirus screen: cough unrelated to allergies, muscle pain, Client presents with at least one sign or symptom that may indicate coronavirus-19. Standard/surgical mask placed on the client. Ebola Screen: No symptoms or risks identified at this time. Initial Sepsis Screen: Does the patient meet any 2 criteria? HR > 90 bpm. No. Patient's initial sepsis screen is negative. Does the patient have a suspected source of infection? No. Patient's initial sepsis screen is negative. Risk Assessment: Do you want to hurt yourself or someone else? Patient reports no desire to harm self or others. Onset of symptoms is unknown. 13:53 Method Of Arrival: Ambulatory bp 13:53 Acuity: CATHIE 4 bp Triage Assessment: 13:55 General: Appears in no apparent distress. uncomfortable, ill, Behavior is calm, bp cooperative, appropriate for age. Pain: Complains of pain in GENERALIZED. EENT: No deficits noted. Neuro: No deficits noted. Cardiovascular: Rhythm is sinus tachycardia. Respiratory: No deficits noted. GI: No signs and/or symptoms were reported involving the gastrointestinal system. : No signs and/or symptoms were reported regarding the genitourinary system. Derm: No deficits noted. Musculoskeletal: No deficits noted. Historical: - Allergies: 13:55 cefepime; bp 13:55 Codeine; bp 13:55 Demerol; bp 13:55 Flagyl; bp 13:55 Sulfa (Sulfonamide Antibiotics); bp 13:55 Tramadol HCl; bp 13:55 Ultram; bp - PMHx: 13:55 Anxiety; Crohn's Disease; Gretta Parikh tears; MRSA; PTSD (MRSA); bp - PSHx: 13:55 abdominal surgery due to foreign object; bladder surgery; breast augmentation; bp Cholecystectomy; tubal ligation; urethra surgery; - Immunization history:: Adult Immunizations up to date. - Infectious Disease History:: Denies. - Social history:: Smoking status: unknown. Screenin:[address] [facility] ED Fall Risk Assessment (Adult) History of falling in the last 3 months, ap3 including since admission No falls in past 3 months (0 pts) Confusion or Disorientation No (0 pts) Intoxicated or Sedated No (0 pts) Impaired Gait No (0 pts) Mobility Assist Device Used No (0 pt) Altered Elimination No (0 pt) Score/Fall Risk Level 0 - 2 = Low Risk Oriented to surroundings. Abuse screen: Denies threats or abuse. Denies injuries from another. Nutritional screening: No deficits noted. Tuberculosis screening: No symptoms or risk factors identified. Vital Signs: 13:53 BP 149 / 106; Pulse 107; Resp 20; Temp 98.5; Pulse Ox 99% ; bp ED Course: 13:25 Patient arrived in ED. ra3 13:38 Sam Ramirez MD is Attending Physician. to 13:53 Magnus Craven, RN is Primary Nurse. bp 13:55 Triage completed. bp 13:55 Arm band placed on. bp 16:19 Patient has correct armband on for positive identification. ap3 16:19 No provider procedures requiring assistance completed. Patient did not have IV access ap3 during this emergency room visit. Administered Medications: 16:12 Drug: Famotidine PO 40 mg PO once Route: PO; ap3 16:13 Follow up: Response: No adverse reaction ap3 16:12 Drug: Aspirin PO Chewable Tablet 81 mg PO once Route: PO; ap3 16:13 Follow up: Response: No adverse reaction ap3 16:13 Drug: AZITHromycin PO 500 mg PO once Route: PO; ap3 16:13 Follow up: Response: No adverse reaction ap3 Outcome: 16:06 Discharge ordered by . [facility] 16:19 Discharged to home ambulatory, ap3 16:19 Condition: stable 16:19 Discharge instructions given to patient, Instructed on discharge instructions, follow up and referral plans. medication usage, Demonstrated understanding of instructions, follow-up care, medications, Prescriptions given X 5 16:21 Patient left the ED. ap3 Signatures: Sam Ramirez MD MD cha Peltier, Brian, RN RN Annemarie Mendoza RN RN ap3 Edith Chen ra3
--- NOTE | 2024-12-19 16:06 | EDPHYS ---
Physician Documentation [facility] Name: Gabrielle Plata Age: 44 yrs Sex: Female : 1980 Arrival Date: 12/19/2024 Time: 13:22 Bed 12 Private MD: ED Physician Sam Ramirez HPI: 12/19 15:59 This 44 yrs old Female presents to ER via Ambulatory with complaints of to Covid+ wants test/proof. 15:59 The patient has shortness of breath at rest, with light activity. Onset: The to symptoms/episode began/occurred 5 day(s) ago. Duration: The symptoms are continuous, and are steadily getting worse. The patient's shortness of breath is aggravated by coughing, is alleviated by rest, sitting up. The patient or guardian reports cough, that is intermittent, difficulty breathing, flu symptoms, arthralgias, low-grade fever, myalgias. Modifying factors: The symptoms are alleviated by elevating head, remaining still, the symptoms are aggravated by activity, lying flat, talking. uri , cough , congestion 4-5 days. Severity of symptoms: At their worst the symptoms were moderate in the emergency department the symptoms are unchanged. Associated signs and symptoms: Pertinent positives: fever, sore throat. Historical: - Allergies: 13:55 cefepime; bp 13:55 Codeine; bp 13:55 Demerol; bp 13:55 Flagyl; bp 13:55 Sulfa (Sulfonamide Antibiotics); bp 13:55 Tramadol HCl; bp 13:55 Ultram; bp - PMHx: 13:55 Anxiety; Crohn's Disease; Gretta Parikh tears; MRSA; PTSD (MRSA); bp - PSHx: 13:55 abdominal surgery due to foreign object; bladder surgery; breast augmentation; bp Cholecystectomy; tubal ligation; urethra surgery; - Immunization history:: Adult Immunizations up to date. - Infectious Disease History:: Denies. - Social history:: Smoking status: unknown. ROS: 16:01 Constitutional: Negative for fever, chills, and weight loss, Eyes: Negative for injury, to pain, redness, and discharge, ENT: Negative for injury, pain, and discharge, Neck: Negative for injury, pain, and swelling, Cardiovascular: Negative for chest pain, palpitations, and edema, Abdomen/GI: Negative for abdominal pain, nausea, vomiting, diarrhea, and constipation, Back: Negative for injury and pain, : Negative for injury, bleeding, discharge, and swelling, MS/Extremity: Negative for injury and deformity, Skin: Negative for injury, rash, and discoloration, Neuro: Negative for headache, weakness, numbness, tingling, and seizure, Psych: Negative for depression, anxiety, suicide ideation, homicidal ideation, and hallucinations, Allergy/Immunology: Negative for hives, rash, and allergies, Endocrine: Negative for neck swelling, polydipsia, polyuria, polyphagia, and marked weight changes, Hematologic/Lymphatic: Negative for swollen nodes, abnormal bleeding, and unusual bruising, 16:01 Respiratory: Positive for cough, shortness of breath, at rest. 16:01 MS/extremity: Negative for acute changes, swelling, tenderness, Exam: 16:01 Constitutional: This is a well developed, well nourished patient who is awake, alert, to and in no acute distress. Head/Face: Normocephalic, atraumatic. Eyes: Pupils equal round and reactive to light, extra-ocular motions intact. Lids and lashes normal. Conjunctiva and sclera are non-icteric and not injected. Cornea within normal limits. Periorbital areas with no swelling, redness, or edema. ENT: Nares patent. No nasal discharge, no septal abnormalities noted. Tympanic membranes are normal and external auditory canals are clear. Oropharynx with no redness, swelling, or masses, exudates, or evidence of obstruction, uvula midline. Mucous membranes moist. Neck: Trachea midline, no thyromegaly or masses palpated, and no cervical lymphadenopathy. Supple, full range of motion without nuchal rigidity, or vertebral point tenderness. No Meningismus. Chest/axilla: Normal chest wall appearance and motion. Nontender with no deformity. No lesions are appreciated. Cardiovascular: Regular rate and rhythm with a normal S1 and S2. No gallops, murmurs, or rubs. Normal PMI, no JVD. No pulse deficits. Respiratory: Lungs have equal breath sounds bilaterally, clear to auscultation and percussion. No rales, rhonchi or wheezes noted. No increased work of breathing, no retractions or nasal flaring. Abdomen/GI: Soft, non-tender, with normal bowel sounds. No distension or tympany. No guarding or rebound. No evidence of tenderness throughout. Back: No spinal tenderness. No costovertebral tenderness. Full range of motion. Skin: Warm, dry with normal turgor. Normal color with no rashes, no lesions, and no evidence of cellulitis. MS/ Extremity: Pulses equal, no cyanosis. Neurovascular intact. Full, normal range of motion., bilateral aka Neuro: Awake and alert, GCS 15, oriented to person, place, time, and situation. Cranial nerves II-XII grossly intact. Motor strength 5/5 in all extremities. Sensory grossly intact. Cerebellar exam normal. Normal gait. Psych: Awake, alert, with orientation to person, place and time. Behavior, mood, and affect are within normal limits. 16:01 Musculoskeletal/extremity: Extremities: all appear grossly normal, with no appreciated pain with palpation, ROM: no acute changes, Circulation is intact in all extremities. Sensation intact. Compartment Syndrome exam of affected extremity: is normal. DVT Exam: No signs of deep vein thrombosis. no pain, no swelling, no tenderness, negative Homans' sign noted on exam, no appreciated bluish discoloration, no erythema, no increased warmth, Vital Signs: 13:53 BP 149 / 106; Pulse 107; Resp 20; Temp 98.5; Pulse Ox 99% ; bp MDM: 13:38 Medical Screening Exam initiated [facility] 13:56 Medical Screening Exam initiated [facility] 16:02 Differential diagnosis: Anemia Anxiety Reaction asthma, Bronchitis Chronic Obstructive to Pulmonary Disease obstructed airway, tracheal injury, bronchitis, flu, pneumonia. Antibiotic administration: The patient is discharged and will get outpatient antibiotics, Zithromax. Differential Diagnosis flu. Immunization status:. Data reviewed: vital signs, nurses notes, lab test result(s). Consideration of Admission/Observation Escalation of care including admission/observation considered. I considered the following discharge prescriptions or medication management in the emergency department Medications were administered in the Emergency Department. See MAR. Test considered but Not performed: Labs: no labs. Care significantly affected by the following chronic conditions: anxiety, crohns, gretta layla, ptsd, mrsa. Counseling: I had a detailed discussion with the patient and/or guardian regarding the historical points, exam findings, and any diagnostic results supporting the discharge/admit diagnosis, lab results, the need for outpatient follow up, a family practitioner, a avionics installer. 12/19 13:38 Order name: SARS RAPID; Complete Time: 15:54 [facility] 12/19 13:38 Order name: Flu; Complete Time: 15:54 [facility] Administered Medications: 16:12 Drug: Famotidine PO 40 mg PO once Route: PO; ap3 16:13 Follow up: Response: No adverse reaction ap3 16:12 Drug: Aspirin PO Chewable Tablet 81 mg PO once Route: PO; ap3 16:13 Follow up: Response: No adverse reaction ap3 16:13 Drug: AZITHromycin PO 500 mg PO once Route: PO; ap3 16:13 Follow up: Response: No adverse reaction ap3 Disposition Summary: 12/19/24 16:06 Discharge Ordered Notes: Location: Home [facility] Problem: new [facility] Symptoms: have improved to Condition: Stable to Diagnosis - SARS-associated coronavirus as the cause of diseases classified elsewhere to - Cough to Followup: to - With: Private Physician - When: 2 - 3 days - Reason: Recheck today's complaints, Continuance of care, Re-evaluation by your physician Discharge Instructions: - Discharge Summary Sheet [facility] - Cough, Adult, [id number] [facility] - Aspirin and Your Heart [facility] - Cough, Adult [facility] - COVID-19 to - Use Masks to Slow the Spread of COVID-19 - [facility] (07/13/2021) [facility] - Symptoms of COVID-19 - [facility] (02/20/2022) [facility] - Viral Illness, Adult [facility] - COVID-19: Quarantine and Isolation - [facility] (02/28/2022) [facility] - COVID-19: What to Do If You Are Sick - [facility] (02/20/2022) [facility] Forms: - Medication Reconciliation Form [facility] - Antibiotic Education to - Prescription Opioid Use to - Patient Portal Instructions [facility] - Leadership Thank You Letter [facility] Prescriptions: - Paxlovid 300 mg (150 mg x 2)-100 mg Oral Tablet, Dose Pack - take 1 dose pack ORAL route as directed on dose pack take TWO 150 mg tablets of to nirmatrelvir with ONE 100 mg tablet of ritonavir twice daily for 3 days; 18 capsule; Refills: 0, Product Selection Permitted - budesonide-formoterol 160-4.5 mcg/actuation Inhalation HFA Aerosol Inhaler - inhale 2 puff INHALATION route 2 times per day; 1 unit; Refills: 0, Product [facility] Selection Permitted - Pepcid 20 mg Oral tablet - take 1 tablet ORAL route every 12 hours for 21 days; 42 tablet; Refills: 0, [facility] Product Selection Permitted - Tessalon Perles 100 mg Oral capsule - take 2 capsule ORAL route every 8 hours As needed; 30 capsule; Refills: 0, [facility] Product Selection Permitted - Zithromax Z-Ramez 250 mg Oral Tablet - take 1 tablet ORAL route as directed for 5 days Day 1 - take two (2) tablets to one time. Day 2, 3, 4 , 5 take one (1) tablet once daily.; 6 tablet; Refills: 0, Product Selection Permitted Signatures: Dispatcher [employer] Sam Bridges MD MD cha Peltier, Brian, RN RN Annemarie Mendoza RN RN ap3
[2024-12-19] MEDS ORDERED: AZITHROMYCIN 250 MG TAB ONE (16:08)
[2024-12-19] MEDS ORDERED: ASPIRIN EC 81 MG TAB PO ONE (16:09)
[2024-12-19] MEDS ORDERED: FAMOTIDINE 20 MG TAB ONE (16:09)
[2024-12-19 16:58] VITALS: BP 149/106; TEMP 98.5; O2SAT 99
== END 2024-12-19 16:21 | disposition home or self-care (01) ==
LOC: ER 13:22
DX: U07.1 COVID-19 (principal); B97.21 SARS-associated coronavirus as the cause of diseases classified elsewhere; R05.9 Cough, unspecified; Z88.1 Allergy status to other antibiotic agents; Z88.2 Allergy status to sulfonamides; Z88.5 Allergy status to narcotic agent
CPT/HCPCS: 36415; 87804; 87811; 99283

== ENCOUNTER 2025-01-03 19:17 | Emergency (ER) | payer SELFPAY ==
[2025-01-03] MEDS ORDERED: LORazepam 2 MG/ML VIAL ONE (19:29)
[2025-01-03] MEDS ORDERED: NA CHLORIDE 0.9% 100 ML ONE (19:32)
[2025-01-03] MEDS ORDERED: ONDANSETRON 4 MG/2 ML VIAL ONE (19:32)
[2025-01-03] MEDS ORDERED: NA CHLORIDE 0.9% 1,000 ML ONE (19:32)
[2025-01-03] MEDS ORDERED: LEVETIRACETAM 500 MG/5 ML VIAL IV ONE (19:33)
[2025-01-03 19:50] LABS: Absolute Basophils 0.1 K/uL (0-0.5); Absolute Eosinophils 0.1 K/uL (0-0.5); Absolute Lymphocytes (CBC) 2.5 K/uL (0.7-4.9); Absolute Monocytes 0.5 K/uL (0.1-1.3); Absolute Neutrophil 5.6 K/uL (1.8-8.0); Basophils % 1.2 % (0-1.3); Eosinophils % 1.7 % (0-4.4); Hematocrit 40.9 % (36.0-45.0); Hemoglobin 14.1 g/dL (12.0-15.0); Lymphocytes % 28.4 % (15.3-44.8); MCH 31.8 pg (27.0-35.0); MCHC 34.6 g/dL (32.0-36.0); MCV 91.9 fL (80-100); MPV 7.7 fL (7.6-11.3); Monocytes % 5.8 % (3.3-12.3); Neutrophils % 62.9 % (41.7-73.7); Platelets 387 thou/uL (152-406); RBC Red Blood Cell Count 4.45 M/uL (3.86-4.86); Red Cell Distribution Width 14.1 % (12.1-15.2)
[2025-01-03 20:06] LABS: Albumin 3.2 g/dL (3.4-5.0); Anion Gap 15.4 mEq/L (5.0-15.0); Bilirubin Total 0.2 mg/dL (0.2-1.0); Globulin 3.3 g/dL (2.3-3.5); Potassium 3.4 mEq/L (3.5-5.1); Protein, Total 6.5 g/dL (6.4-8.2)
[2025-01-03 20:40] LABS: Barbiturates NEGATIVE (NEGATIVE); Benzodiazepines POSITIVE (NEGATIVE); Cocaine NEGATIVE (NEGATIVE); METHAMPHETAM NEGATIVE (NEGATIVE); Methadone NEGATIVE (NEGATIVE); Opiates NEGATIVE (NEGATIVE); Phencyclidine NEGATIVE (NEGATIVE); THC Cannibis NEGATIVE (NEGATIVE)
[2025-01-03] MEDS ORDERED: KETOROLAC 10 MG TAB ONE (21:26)
[2025-01-03] MEDS ORDERED: HYDROCODONE/APAP 5/325 MG TAB ONE (21:27)
--- NOTE | 2025-01-03 21:30 | ER ---
Nurse's Notes [facility] Name: Gabrielle Plata Age: 44 yrs Sex: Female : 1980 Arrival Date: 01/03/2025 Time: 19:17 Bed 3 Private MD: Diagnosis: Other seizures;Acute Breakthrough Seizure, Presentation: 01/03 19:22 Chief complaint: EMS states: Pt came in to our site asking to be checked. We witnessed bm8 multiple 30 secs to 1 min seizures. we gave 5 mg versed IM and it has helped. 19:22 Coronavirus screen: Client presents with at least one sign or symptom that may indicate bm8 coronavirus-19. Standard/surgical mask placed on the client. Ebola Screen: Patient negative for fever greater than or equal to 101.5 degrees Fahrenheit, and additional compatible Ebola Virus Disease symptoms Patient denies exposure to infectious person. Patient denies travel to an Ebola-affected area in the 21 days before illness onset. No symptoms or risks identified at this time. Initial Sepsis Screen: Does the patient meet any 2 criteria? No. Patient's initial sepsis screen is negative. Does the patient have a suspected source of infection? No. Patient's initial sepsis screen is negative. Risk Assessment: Do you want to hurt yourself or someone else? Patient reports no desire to harm self or others. Onset of symptoms was January 03, 2025 at 12:00. Care prior to arrival: Medication(s) given: versed 5mg. 19:22 Method Of Arrival: EMS: [facility] bm8 19:22 Acuity: CATHIE 2 bm8 Triage Assessment: 19:22 General: Appears in no apparent distress. comfortable, Behavior is calm, cooperative, bm8 appropriate for age. 19:22 Pain: Denies pain. EENT: No deficits noted. No signs and/or symptoms were reported bm8 regarding the EENT system. Neuro: Level of Consciousness is alert, obeys commands, lethargic, Oriented to person, place, situation, Appropriate for age Dispatcher Electric Power are equal bilaterally Moves all extremities. Full function Speech is slurred, Facial symmetry appears normal, Pupils are PERRLA, Intact Reports seizures. Cardiovascular: No deficits noted. Denies chest pain, Heart tones S1 S2 present Capillary refill < 3 seconds in bilateral fingers Patient's skin is warm and dry. Rhythm is sinus rhythm. Respiratory: Airway is patent Respiratory effort is even, unlabored, Respiratory pattern is regular, symmetrical. GI: No signs and/or symptoms were reported involving the gastrointestinal system. : No signs and/or symptoms were reported regarding the genitourinary system. Derm: No signs and/or symptoms reported regarding the dermatologic system. Musculoskeletal: No signs and/or symptoms reported regarding the musculoskeletal system. 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 - Infectious Disease History:: Denies. - Social history:: Smoking status: unknown Patient uses alcohol. - Family history:: not pertinent. Screenin:52 [facility] ED Fall Risk Assessment (Adult) History of falling in the last 3 months, bm8 including since admission No falls in past 3 months (0 pts) Confusion or Disorientation Yes (5 pts) Intoxicated or Sedated No (0 pts) Impaired Gait Yes (1 pt) Mobility Assist Device Used No (0 pt) Altered Elimination No (0 pt) Score/Fall Risk Level 3 or more points = High Risk Oriented to surroundings, Maintained a safe environment, Educated pt \T\ family on fall prevention, incl call for assistance when getting out of bed, Assessed \T\ reinforced patient's understanding of fall precautions, Hourly rounding (assess needs \T\ fall precautionary measures) done, Used ambulatory aids as needed (educated on \T\ assisted with), Used gait belt as appropriate Implemented a Fall Risk Plan of Care. Abuse screen: Denies threats or abuse. Nutritional screening: No deficits noted. Tuberculosis screening: No symptoms or risk factors identified. Assessment: 19:52 Reassessment: Patient appears in no apparent distress at this time. Patient and/or bm8 family updated on plan of care and expected duration. Pain level reassessed. Patient is alert, oriented x 3, equal unlabored respirations, skin warm/dry/pink. Patient states symptoms have improved. 20:50 Reassessment: Patient appears in no apparent distress at this time. Patient and/or bm8 family updated on plan of care and expected duration. Pain level reassessed. Patient is alert, oriented x 3, equal unlabored respirations, skin warm/dry/pink. pt is resting with eyes closed breathing is even unlabored with symmetrical rise and fall of chest, easily rousable, denies pain. warm blankets provided per pt request. Patient denies pain at this time. Patient states feeling better. Patient states symptoms have improved. 21:30 Reassessment: Patient appears in no apparent distress at this time. Patient and/or bm8 family updated on plan of care and expected duration. Pain level reassessed. Patient is alert, oriented x 3, equal unlabored respirations, skin warm/dry/pink. Patient denies pain at this time. Patient states feeling better. Patient states symptoms have improved. Vital Signs: 19:22 BP 94 / 72; Pulse 100; Resp 18; Temp 97.2; Pulse Ox 96% ; Weight 54.88 kg; Height 4 ft. bm8 11 in. ; Pain 0/10; 19:52 BP 91 / 63; Pulse 86; Resp 20; Temp 97.2; Pulse Ox 97% ; Pain 0/10; bm8 20:50 BP 101 / 68; Pulse 85; Resp 20; Temp 97.5; Pulse Ox 95% ; Pain 0/10; bm8 21:30 BP 116 / 74; Pulse 81; Resp 17; Temp 97.8; Pulse Ox 100% ; Pain 0/10; bm8 19:22 Body Mass Index 24.44 (54.88 kg, 149.86 cm) bm8 19:22 Pain Scale: Adult bm8 19:52 Pain Scale: Adult bm8 20:50 Pain Scale: Adult bm8 21:30 Pain Scale: Adult bm8 [place] Coma Score: 19:50 Eye Response: to voice(3). Motor Response: obeys commands(6). Verbal Response: bm8 oriented(5). Total: 14. 19:52 Eye Response: to voice(3). Motor Response: obeys commands(6). Verbal Response: bm8 oriented(5). Total: 14. 20:50 Eye Response: to voice(3). Motor Response: obeys commands(6). Verbal Response: bm8 oriented(5). Total: 14. 21:30 Eye Response: spontaneous(4). Motor Response: obeys commands(6). Verbal Response: bm8 oriented(5). Total: 15. 21:35 Eye Response: spontaneous(4). Motor Response: obeys commands(6). Verbal Response: sp4 oriented(5). Total: 15. NIH Stroke Scale Scores: 21:37 NIHSS Score: 0 sp4 ED Course: 19:22 Patient arrived in ED. kmf 19:22 Arm band placed on left wrist. bm8 19:24 Rene Pearson MD is Attending Physician. sp4 19:31 Choco Limon, RN is Primary Nurse. bm8 19:50 Triage completed. bm8 19:52 Patient has correct armband on for positive identification. Placed in gown. Bed in low bm8 position. Call light in reach. Side rails up X2. Adult w/ patient. Seizure precautions initiated. Client placed on continuous cardiac and pulse oximetry monitoring. NIBP monitoring applied. quality assurance monitor final on. Pulse ox on. NIBP on. Door closed. Warm blanket given. Pillow given. Verbal reassurance given. Head of bed elevated. 19:52 No provider procedures requiring assistance completed. Initial lab(s) drawn, by wv, bm8 sent to lab. EKG done, by ED staff, reviewed by Rene Pearson MD. Inserted saline lock: 20 gauge in right antecubital area, using aseptic technique. Blood collected. Flushed with 10 mL NS. Patient maintains SpO2 saturation greater than 95% on room air. 20:26 Initial lab(s) drawn, by me, sent to lab. Urine collected: straight cath specimen, bm8 clear. 21:23 Garret Carver MD is Referral Physician. sp4 21:30 Provided Education on: POST ER CARE. bm8 21:30 IV discontinued, intact, bleeding controlled, No redness/swelling at site. Pressure bm8 dressing applied. Administered Medications: 19:45 Drug: Keppra IV 2000 mg IV at calculated rate once Route: IV; Rate: calculated rate; bm8 Site: right antecubital; 20:52 Follow up: Response: No adverse reaction; IV Status: Completed infusion; IV Intake: bm8 120ml 19:45 Drug: NS 0.9% IV 1000 ml IV at 1 bolus Per protocol; to be given as a bolus over 60 bm8 minutes Route: IV; Rate: 1 bolus; Site: right antecubital; 20:52 Follow up: Response: No adverse reaction; IV Status: Completed infusion; IV Intake: bm8 1000ml 19:45 Drug: Ondansetron IVP 4 mg IVP once; over 2 minutes Route: IVP; Site: right antecubital;bm8 20:52 Follow up: Response: No adverse reaction bm8 21:30 Drug: HYDROcodone-acetaminophen PO 5 mg-325 mg 2 tabs PO once Route: PO; bm8 21:31 Follow up: Response: Medication administered at discharge. bm8 21:30 Drug: Ketorolac PO 10 mg PO once Route: PO; bm8 21:31 Follow up: Response: Medication Administered at Departure bm8 Medication: 19:52 VIS not applicable for this client. bm8 Intake: 20:52 IV: 1000ml; Total: 1000ml. bm8 20:52 IV: 120ml; Total: 1120ml. bm8 Outcome: 21:30 Discharge ordered by . sp4 21:38 Discharged to home ambulatory, bm8 21:38 Condition: stable 21:38 Discharge instructions given to patient, family, Instructed on discharge instructions, follow up and referral plans. no drinking with medication, no driving heavy equipment, safety practices, Demonstrated understanding of instructions, follow-up care, medications, 21:38 Patient left the ED. bm8 NIH Stroke Scale - NIH Stroke Score Date: 01/03/2025 Time: 21:37 Total Score = 0 10. Dysarthria (speech clarity - read or repeat words) - 0(Normal) 11. Extinction and Inattention (visual/tactile/auditory/spatial/personal) - 0(No abnormality) 1a. Level of Consciousness (LOC) - 0(Alert) 1b. Level of Consciousness (LOC) (Month \T\ Age) - 0(Both) 1c. LOC Commands (Open \T\ Closes Eyes/Cashiers Supervisor) - 0(Both) 2. Best Gaze (Lateral Gaze Paresis) - 0(Normal) 3. Visual Field Loss - 0(No visual loss) 4. Facial Palsy - 0(Normal) 5a. Left Arm: Motor (10-second hold) - 0(No drift) 5b. Right Arm: Motor (10-second hold) - 0(No drift) 6a. Left Leg: Motor (5-second hold - always test supine) - 0(No drift) 6b. Right Leg: Motor (5-second hold - always test supine) - 0(No drift) 7. Limb Ataxia (finger/nose \T\ heel/pace - test with eyes open) - 0(Absent) 8. Sensory Loss (pinprick arms/legs/face) - 0(Normal) 9. Best Language: Aphasia (description/naming/reading) - 0(No aphasia) Initials: sp4 Signatures: Rene Pearson MD MD sp4 Ketty Guo Brad, RN RN bm8
--- NOTE | 2025-01-03 21:30 | EDPHYS ---
Physician Documentation [facility] Name: Gabrielle Plata Age: 44 yrs Sex: Female : 1980 Arrival Date: 01/03/2025 Time: 19:17 Bed 3 Private MD: ED Physician Rene Pearson HPI: 01/03 19:25 This 44 yrs old Female presents to ER via Unassigned with complaints of sp4 seizure . 21:35 Patient is 44-year-old female with history of anxiety, Crohn's disease, Gretta-Parikh sp4 tear, PTSD, seizure, and also history of anxiety. Patient presents with EMS after she came to the fire station and reported feeling unwell. Patient then developed generalized convulsive seizure at the fire station and was brought here with EMS. EMS administered 5 mg Versed intramuscular injection. 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 - Infectious Disease History:: Denies. - Social history:: Smoking status: unknown Patient uses alcohol. - Family history:: not pertinent. ROS: 21:35 Constitutional: Negative for fever, chills, and weight loss, positive for acute sp4 convulsive episode 21:35 All other systems are negative, Exam: 21:35 Constitutional: This is a well developed, well nourished patient who is awake, alert, sp4 and in no acute distress. Head/Face: Normocephalic, atraumatic. Eyes: Pupils equal round and reactive to light, extra-ocular motions intact. Lids and lashes normal. Conjunctiva and sclera are not injected. Cornea within normal limits. Periorbital areas with no swelling, redness, or edema. ENT: Nares patent. No nasal discharge, no septal abnormalities noted. Tympanic membranes are normal and external auditory canals are clear. Oropharynx with no redness, swelling, or masses, exudates, or evidence of obstruction, uvula midline. Mucous membranes moist. Neck: Trachea midline, no thyromegaly or masses palpated, and no cervical lymphadenopathy. Supple, full range of motion without nuchal rigidity, or vertebral point tenderness. Chest/axilla: Normal chest wall appearance and motion. Nontender with no deformity. No lesions are appreciated. Cardiovascular: Regular rate and rhythm with a normal S1 and S2. No gallops, murmurs, or rubs. Normal PMI, no JVD. No pulse deficits. Respiratory: Lungs have equal breath sounds bilaterally, clear to auscultation and percussion. No rales, rhonchi or wheezes noted. No increased work of breathing, no retractions or nasal flaring. Abdomen/GI: Soft, with normal bowel sounds. No distension or tympany. No guarding or rebound. No evidence of tenderness throughout. Back: No spinal tenderness. No costovertebral tenderness. Skin: Warm, dry with normal turgor. Normal color with no rashes, no lesions, and no evidence of cellulitis. MS/ Extremity: Pulses equal, no cyanosis. Neurovascular intact. Full, normal range of motion. Neuro: Awake and alert, GCS 15, oriented to person, place, time, and situation. Cranial nerves II-XII grossly intact. Motor strength 5/5 in all extremities. Sensory grossly intact. Psych: Awake, alert, with orientation to person, place and time. Behavior, mood, and affect are within normal limits 21:47 ECG was reviewed by the Attending Physician. EKG 1921 sp4 Vital Signs: 19:22 BP 94 / 72; Pulse 100; Resp 18; Temp 97.2; Pulse Ox 96% ; Weight 54.88 kg; Height 4 ft. bm8 11 in. ; Pain 0/10; 19:52 BP 91 / 63; Pulse 86; Resp 20; Temp 97.2; Pulse Ox 97% ; Pain 0/10; bm8 20:50 BP 101 / 68; Pulse 85; Resp 20; Temp 97.5; Pulse Ox 95% ; Pain 0/10; bm8 21:30 BP 116 / 74; Pulse 81; Resp 17; Temp 97.8; Pulse Ox 100% ; Pain 0/10; bm8 19:22 Body Mass Index 24.44 (54.88 kg, 149.86 cm) bm8 19:22 Pain Scale: Adult bm8 19:52 Pain Scale: Adult bm8 20:50 Pain Scale: Adult bm8 21:30 Pain Scale: Adult bm8 NIH Stroke Scale Scores: 21:37 NIHSS Score: 0 sp4 [place] Coma Score: 19:50 Eye Response: to voice(3). Motor Response: obeys commands(6). Verbal Response: bm8 oriented(5). Total: 14. 19:52 Eye Response: to voice(3). Motor Response: obeys commands(6). Verbal Response: bm8 oriented(5). Total: 14. 20:50 Eye Response: to voice(3). Motor Response: obeys commands(6). Verbal Response: bm8 oriented(5). Total: 14. 21:30 Eye Response: spontaneous(4). Motor Response: obeys commands(6). Verbal Response: bm8 oriented(5). Total: 15. 21:35 Eye Response: spontaneous(4). Motor Response: obeys commands(6). Verbal Response: sp4 oriented(5). Total: 15. MDM: 21:30 Medical Screening Exam initiated sp4 21:37 Differential diagnosis: drug overdose, cardiac arrhythmia, seizure, TIA, Alcohol sp4 intoxication . Data reviewed: vital signs, nurses notes, old medical records, lab test result(s). Consideration of Admission/Observation Escalation of care including admission/observation considered. ED course: Patient has significantly improved after IV loading dose of Keppra. Patient states she has not been on her Keppra for over a month. Patient states she is not able to purchase Keppra secondary to medication expense. Patient does say she has refills of her her Keppra at home. She also takes Vimpat. Patient has neurology follow-[facility] at [facility]. Otherwise patient has normal exam normal ambulatory status no sign of CVA or TIA.. 01/03 19:26 Order name: CBC with Diff; Complete Time: 21:15 sp4 01/03 19:26 Order name: CMP; Complete Time: 21:15 sp4 01/03 19:39 Order name: Test, Serum; Complete Time: 21:15 sp4 01/03 19:52 Order name: Alcohol Level; Complete Time: 21:15 sp4 01/03 19:52 Order name: Urine Drug Screen; Complete Time: 21:15 sp4 01/03 19:26 Order name: IV Saline Lock; Complete Time: 19:56 sp4 01/03 19:26 Order name: Labs collected and sent; Complete Time: 19:56 sp4 EC:22 Rate is 94 beats/min. Rhythm is regular, Normal Sinus Rhythm. QRS [place] is Normal. [place] sp4 interval is normal. QRS interval is normal. QT interval is normal. No Q waves. T waves are Normal. No ST changes noted. Clinical impression: No evidence of ischemia. Interpreted by me. Reviewed by me. Administered Medications: 19:45 Drug: Keppra IV 2000 mg IV at calculated rate once Route: IV; Rate: calculated rate; bm8 Site: right antecubital; 20:52 Follow up: Response: No adverse reaction; IV Status: Completed infusion; IV Intake: bm8 120ml 19:45 Drug: NS 0.9% IV 1000 ml IV at 1 bolus Per protocol; to be given as a bolus over 60 bm8 minutes Route: IV; Rate: 1 bolus; Site: right antecubital; 20:52 Follow up: Response: No adverse reaction; IV Status: Completed infusion; IV Intake: bm8 1000ml 19:45 Drug: Ondansetron IVP 4 mg IVP once; over 2 minutes Route: IVP; Site: right antecubital;bm8 20:52 Follow up: Response: No adverse reaction bm8 21:30 Drug: HYDROcodone-acetaminophen PO 5 mg-325 mg 2 tabs PO once Route: PO; bm8 21:31 Follow up: Response: Medication administered at discharge. bm8 21:30 Drug: Ketorolac PO 10 mg PO once Route: PO; bm8 21:31 Follow up: Response: Medication Administered at Departure bm8 Disposition Summary: 01/03/25 21:30 Discharge Ordered Notes: Location: Home sp4 Problem: new sp4 Symptoms: have improved sp4 Condition: Stable sp4 Diagnosis - Other seizures sp4 - Acute Breakthrough Seizure, sp4 Followup: sp4 - With: Garret Carver MD - When: 7 - 10 days - Reason: Recheck today's complaints Discharge Instructions: - Discharge Summary Sheet sp4 - Seizure, Adult sp4 Forms: - Patient Portal Instructions sp4 NIH Stroke Scale - NIH Stroke Score Date: 01/03/2025 Time: 21:37 Total Score = 0 10. Dysarthria (speech clarity - read or repeat words) - 0(Normal) 11. Extinction and Inattention (visual/tactile/auditory/spatial/personal) - 0(No abnormality) 1a. Level of Consciousness (LOC) - 0(Alert) 1b. Level of Consciousness (LOC) (Month \T\ Age) - 0(Both) 1c. LOC Commands (Open \T\ Closes Eyes/Refrigeration System Installer) - 0(Both) 2. Best Gaze (Lateral Gaze Paresis) - 0(Normal) 3. Visual Field Loss - 0(No visual loss) 4. Facial Palsy - 0(Normal) 5a. Left Arm: Motor (10-second hold) - 0(No drift) 5b. Right Arm: Motor (10-second hold) - 0(No drift) 6a. Left Leg: Motor (5-second hold - always test supine) - 0(No drift) 6b. Right Leg: Motor (5-second hold - always test supine) - 0(No drift) 7. Limb Ataxia (finger/nose \T\ heel/pace - test with eyes open) - 0(Absent) 8. Sensory Loss (pinprick arms/legs/face) - 0(Normal) 9. Best Language: Aphasia (description/naming/reading) - 0(No aphasia) Initials: sp4 Signatures: Dispatcher [employer] Rene Perez MD MD sp4 Choco Limon RN RN bm8
[2025-01-03 21:52] VITALS: BP 116/74; TEMP 97.8; O2SAT 100
--- NOTE | 2025-01-05 12:17 | EKG ---
Test Date: 2025-01-03 Test Time: 19:22:32 Pattern And Chain Maker: RAO MEASUREMENT RESULTS: Intervals: Rate: 94 UT: 144 QRSD: 80 QT: 368 QTc: 460 [place]: P: 70 UT: 144 QRS: 62 T: 47 INTERPRETIVE STATEMENTS: Normal sinus rhythm Normal ECG Compared to ECG 11/26/2024 11:11:39 No significant changes Electronically Signed On 01-05-25 12:14:58 RRT by Gunnar Petty
== END 2025-01-03 21:38 | disposition home or self-care (01) ==
LOC: ER 19:17
DX: G40.89 Other seizures (principal); Z98.82 Breast implant status
CPT/HCPCS: 36415; 80053; 80307; 82077; 84703; 85025; 93005; 96365; 96375; 99285; J1953; J2405; J7030

== ENCOUNTER 2025-02-02 15:22 | Emergency (ER) | payer OTHER ==
[2025-02-02] MEDS ORDERED: LEVETIRACETAM 500 MG/5 ML VIAL IV ONE (15:35)
[2025-02-02] MEDS ORDERED: NA CHLORIDE 0.9% 100 ML ONE (15:35)
[2025-02-02] MEDS ORDERED: LACOSAMIDE 50 MG TABLET ONE (15:43)
--- NOTE | 2025-02-02 16:34 | ER ---
Nurse's Notes [facility] Name: Gabrielle Plata Age: 44 yrs Sex: Female : 1980 Arrival Date: 02/02/2025 Time: 15:22 Bed 16 Private MD: Diagnosis: Other seizures Presentation: 02/02 15:32 Chief complaint: Patient states: pt pulled over because she felt like she was going to ss have a seizure. Smells of ETOH. EMS reports she was on her way to court. Pt is awake and talking, joking with ED staff upon arrival. Coronavirus screen: Client denies travel out of the [place] in the last 14 days. Ebola Screen: Patient denies exposure to infectious person. Patient denies travel to an Ebola-affected area in the 21 days before illness onset. Initial Sepsis Screen: Does the patient meet any 2 criteria? No. Patient's initial sepsis screen is negative. Does the patient have a suspected source of infection? No. Patient's initial sepsis screen is negative. Risk Assessment: Do you want to hurt yourself or someone else? Patient reports no desire to harm self or others. Onset of symptoms was February 02, 2025. 15:32 Method Of Arrival: EMS: [facility] 15:32 Acuity: CATHIE 3 ss 15:34 Care prior to arrival: Medication(s) given: Ativan 4 mg IM. 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 - Infectious Disease History:: unknown. - Social history:: Smoking status: unknown. Screenin:28 [facility] ED Fall Risk Assessment (Adult) History of falling in the last 3 months, ap3 including since admission Yes- fall prone (multiple falls) (3 pts) Confusion or Disorientation Yes (5 pts) Intoxicated or Sedated Yes (3 pts) Impaired Gait Yes (1 pt) Mobility Assist Device Used No (0 pt) Altered Elimination No (0 pt) Score/Fall Risk Level 3 or more points = High Risk Oriented to surroundings, Maintained a safe environment, Educated pt \T\ family on fall prevention, incl call for assistance when getting out of bed, Assessed \T\ reinforced patient's understanding of fall precautions, Hourly rounding (assess needs \T\ fall precautionary measures) done, Used ambulatory aids as needed (educated on \T\ assisted with), Implemented a Fall Risk Plan of Care, Remained w/in arm's length of patient and in sight while toileting, Remained with patient while ambulating. Abuse screen: Denies threats or abuse. Nutritional screening: No deficits noted. Tuberculosis screening: No symptoms or risk factors identified. Assessment: 15:30 General: Appears in no apparent distress. Behavior is cooperative. Pain: Denies pain. ap3 Cardiovascular: Patient's skin is warm and dry. Respiratory: Airway is patent Respiratory effort is even, unlabored, Respiratory pattern is regular, symmetrical. 15:30 Neuro: Level of Consciousness is awake, alert, obeys commands, Oriented to person, ap3 place, time, situation. Vital Signs: 15:31 BP 105 / 88; Pulse 106; Resp 18; Temp 97.9; Pulse Ox 98% on R/A; ap3 15:33 Weight 54.88 kg; Height 4 ft. 11 in. ; ss 16:32 BP 114 / 84; Pulse 90; Resp 17; Pulse Ox 99% on R/A; ap3 15:33 Body Mass Index 24.44 (54.88 kg, 149.86 cm) ss ED Course: 15:23 Patient arrived in ED. ms3 15:23 Joel Vargas DO is Attending Physician. ms3 15:30 Inserted saline lock: 20 gauge in right upper arm, using aseptic technique. Blood ss collected. Flushed with 10 mL NS. 15:30 Arm band placed on right wrist. ss 15:30 Seizure precautions initiated. ap3 15:31 Client placed on continuous cardiac and pulse oximetry monitoring. NIBP monitoring ap3 applied. court recording monitor on. Pulse ox on. NIBP on. 15:33 Triage completed. ss 16:31 No provider procedures requiring assistance completed. ap3 16:31 Provided Education on: no driving until she is cleared by neurology. this education was ap3 provided by Dr. Vargas, and this nurse was at the bedside during education. patient verbalized understanding. 16:33 Timothy Lord MD is Referral Physician. ms3 17:56 IV discontinued, intact, bleeding controlled, No redness/swelling at site. Pressure ap3 dressing applied. Administered Medications: 15:50 Drug: Vimpat PO 100 mg PO once Route: PO; ap3 17:55 Follow up: Response: No adverse reaction ap3 15:51 Drug: Keppra IV 20 mg/kg IV at calculated rate once; not to exceed 2,500 milligrams ap3 administer over 15 minutes Route: IV; Rate: calculated rate; Site: left antecubital; 17:55 Follow up: IV Status: Completed infusion; IV Intake: 1000ml ap3 Medication: 16:32 VIS not applicable for this client. ap3 Intake: 17:55 IV: 1000ml; Total: 1000ml. ap3 Outcome: 16:33 Discharge ordered by . ms3 17:55 Discharged to wheelchair at nurses station while patient waits for ride ap3 17:55 Condition: good 17:55 Discharge instructions given to patient, Instructed on discharge instructions, follow up and referral plans. Demonstrated understanding of instructions, follow-up care, 17:56 Patient left the ED. ap3 Signatures: Vicenta Guevara RN RN Annemarie Burch RN RN ap3 Joel Vargas, DO ms3 Corrections: (The following items were deleted from the chart) 16:31 16:29 General: Appears in no apparent distress. Behavior is cooperative, ap3 ap3 16:31 16:29 Pain: Denies pain. ap3 ap3 16:31 16:29 Neuro: Level of Consciousness is awake, alert, obeys commands, Oriented to ap3 person, place, time, situation, ap3 16:31 16:29 Cardiovascular: Patient's skin is warm and dry. ap3 ap3 16:31 16:29 Respiratory: Airway is patent Respiratory effort is even, unlabored, Respiratory ap3 pattern is regular, symmetrical, ap3
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
[2025-02-02 18:21] VITALS: TEMP 97.9
[2025-02-02 18:22] VITALS: BP 114/84; O2SAT 99
== END 2025-02-02 17:56 | disposition home or self-care (01) ==
LOC: ER 15:22
DX: G40.89 Other seizures (principal); Z98.82 Breast implant status
CPT/HCPCS: J1953

== ENCOUNTER 2025-02-06 18:55 | Emergency (ER) | payer OTHER ==
[2025-02-06] MEDS ORDERED: LORazepam 2 MG/ML VIAL ONE ×2 (19:03→19:20)
[2025-02-06] MEDS ORDERED: LEVETIRACETAM 500 MG/5 ML VIAL IV ONE (19:20)
[2025-02-06] MEDS ORDERED: NA CHLORIDE 0.9% 100 ML ONE (19:20)
[2025-02-06 20:25] LABS: PT Prothrombin Time 10.9 SECONDS (10-13.0); PTT, Activated Partial Thromb 25.8 SECONDS (27.2-37.4); Protime INR 0.95
[2025-02-06 20:26] LABS: Absolute Basophils 0.1 K/uL (0-0.5); Absolute Eosinophils 0.3 K/uL (0-0.5); Absolute Lymphocytes (CBC) 2.7 K/uL (0.7-4.9); Absolute Monocytes 0.4 K/uL (0.1-1.3); Absolute Neutrophil 5.4 K/uL (1.8-8.0); Basophils % 0.8 % (0-1.3); Eosinophils % 3.3 % (0-4.4); Hematocrit 40.7 % (36.0-45.0); Hemoglobin 14.2 g/dL (12.0-15.0); MCH 32.5 pg (27.0-35.0); MCHC 34.8 g/dL (32.0-36.0); MCV 93.1 fL (80-100); MPV 7.8 fL (7.6-11.3); Monocytes % 4.7 % (3.3-12.3); Neutrophils % 61.2 % (41.7-73.7); Platelets 313 thou/uL (152-406); RBC Red Blood Cell Count 4.37 M/uL (3.86-4.86); Red Cell Distribution Width 13.9 % (12.1-15.2)
[2025-02-06 20:30] LABS: ALT/SGPT 50 U/L (13-56); AST/SGOT 46 U/L (15-37); Albumin 3.3 g/dL (3.4-5.0); Albumin/Globulin Ratio 0.9 (1.1-1.8); Alkaline Phosphatase 119 U/L (45-117); Anion Gap 13.2 mEq/L (5.0-15.0); BUN Blood Urea Nitrogen 8 mg/dL (7-18); Bicarbonate 24 mEq/L (21-32); Bilirubin Total 0.2 mg/dL (0.2-1.0); Globulin 3.7 g/dL (2.3-3.5); Glomerular Filtration Rate 86 ml/min (=/>90); Glucose Level 100 mg/dL (74-106); Potassium 3.2 mEq/L (3.5-5.1); Sodium Level 144 mEq/L (136-145)
[2025-02-06 20:42] LABS: Bilirubin Direct < 0.2 mg/dL (0-0.2)
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
--- NOTE | 2025-02-06 23:13 | ER ---
Nurse's Notes [facility] Name: Gabrielle Plata Age: 44 yrs Sex: Female : 1980 Arrival Date: 02/06/2025 Time: 18:55 Bed 2 Private MD: Diagnosis: Other seizures Presentation: 02/06 18:54 Chief complaint: pt in chair of er room 14 visiting with friend, tearful and anxious kc6 with rapid speech. pt appears to have slid out of the chair, assisted by staff to the ground and started actively seizing. staff assist called. Esther, RN, Josefina, SITA, THERESA Diop \\T\\ Ulices qualified craft worker electrician at bedside. pt talking intermittently throughout the episode, denies drug or ETOH abuse. denies injury. pt appears to be crying and repeating, "I'm so sorry. I didn't mean to. I don't want to go to prison." verbal reassurance given. pt lifted onto a stretcher and transferred to er room 2 and placed on CCM with seizure precautions. 18:54 Coronavirus screen: At this time, the client does not indicate any symptoms associated kc6 with coronavirus-19. Ebola Screen: No symptoms or risks identified at this time. Initial Sepsis Screen: Does the patient meet any 2 criteria? HR > 90 bpm. Does the patient have a suspected source of infection? No. Patient's initial sepsis screen is negative. Risk Assessment: Do you want to hurt yourself or someone else? Unable to obtain. Onset of symptoms was February 06, 2025. 18:54 Method Of Arrival: Ambulatory kc6 18:54 Acuity: CATHIE 2 kc6 Triage Assessment: 18:54 General: Appears distressed, uncomfortable, unkempt, well developed, Behavior is kc6 anxious, crying, Smells of alcohol. Pain: Denies pain. Neuro: Level of Consciousness is obeys commands, post ictal, Oriented to person, Appropriate for age Seizure activity noted at this time. Type of seizure: tonic-clonic seizure. Seizure lasted approximately 1 minutes. Patient is post-ictal at this time. Historical: - Allergies: 18:54 cefepime; kc6 18:54 Codeine; kc6 18:54 Demerol; kc6 18:54 Flagyl; kc6 18:54 Sulfa (Sulfonamide Antibiotics); kc6 18:54 Tramadol HCl; kc6 18:54 Ultram; kc6 - PMHx: 18:54 Anxiety; Crohn's Disease; Gretta Parikh tears; MRSA; PTSD (MRSA); Seizure; kc6 - PSHx: 18:54 abdominal surgery due to foreign object; bladder surgery; breast augmentation; kc6 Cholecystectomy; tubal ligation; urethra surgery; - Immunization history:: Adult Immunizations unknown. - Infectious Disease History:: Denies. - Social history:: Smoking status: unknown. Screenin:54 [facility] ED Fall Risk Assessment (Adult) History of falling in the last 3 months, kc6 including since admission No falls in past 3 months (0 pts) Confusion or Disorientation No (0 pts) Intoxicated or Sedated Yes (3 pts) Impaired Gait No (0 pts) Mobility Assist Device Used No (0 pt) Altered Elimination No (0 pt) Score/Fall Risk Level 3 or more points = High Risk Oriented to surroundings, Maintained a safe environment, Educated pt \\T\\ family on fall prevention, incl call for assistance when getting out of bed. Abuse screen: Denies threats or abuse. Denies injuries from another. Nutritional screening: No deficits noted. Tuberculosis screening: No symptoms or risk factors identified. Assessment: 18:54 Reassessment: please see triage. kc6 02/07 00:15 Reassessment: D/C PENDING AT THIS TIME. PT REMAINS SEDATED POST ATIVAN IVP. dd2 03:12 Reassessment: Phone number for pt's emergency contact is incorrect. dd2 Vital Signs: 02/06 18:54 Pulse 133; Resp 20 S; Pulse Ox 95% on R/A; kc6 19:35 BP 126 / 85; Pulse 104; Resp 16; Pulse Ox 97% on R/A; dd2 21:38 BP 121 / 76; Pulse 86; Resp 15; Pulse Ox 97% on R/A; dd2 22:13 BP 117 / 71; Pulse 82; Resp 15; Pulse Ox 100% ; dd2 23:00 BP 112 / 67; Pulse 81; Resp 16; Pulse Ox 97% on R/A; dd2 02/07 00:12 BP 115 / 70; Pulse 79; Resp 16; Pulse Ox 97% on R/A; dd2 05:12 BP 111 / 81; Pulse 76; Resp 16; Temp 98.1; Pulse Ox 98% on R/A; dd2 Nancy Coma Score: 03 18:54 Eye Response: to voice(3). Motor Response: obeys commands(6). Verbal Response: kc6 oriented(5). Total: 14. ED Course: 18:54 Arm band placed on. kc6 18:54 Patient maintains SpO2 saturation greater than 95% on room air. kc6 19:00 Patient has correct armband on for positive identification. Placed in gown. Bed in low kc6 position. Call light in reach. Side rails up X2. Seizure precautions initiated. rug dry room attendant on. Pulse ox on. NIBP on. Door closed. Noise minimized. Lights dimmed. Warm blanket given. Pillow given. Verbal reassurance given. 19:00 Report given to Shira Kennedy RN \\T\\ Bere Morgan RN. kc6 19:01 Patient arrived in ED. sb4 19:01 Claudia Figueredo PA-C is [facility]. sb4 19:01 Franklin Monaco MD is Attending Physician. sb4 19:17 BERE VUONG, SITA is Primary Nurse. dd2 19:27 Triage completed. kc6 20:02 No provider procedures requiring assistance completed. Initial lab(s) drawn, by va, dd2 sent to lab. EKG done, by ED staff, reviewed by Claudia Figueredo PA-C. Inserted saline lock: 22 gauge in right antecubital area, using aseptic technique. Blood collected. Flushed with 10 mL NS. 23:13 Timothy Lord MD is Referral Physician. sb4 02/07 05:18 IV discontinued, intact, bleeding controlled, No redness/swelling at site. Pressure dd2 dressing applied. 05:20 Provided Education on: d/c education. dd2 Administered Medications: 02/06 19:05 Drug: Ativan IVP 2 mg IVP once {Note: [id number].} Route: IVP; Site: Other; kc6 19:20 Follow up: Response: No adverse reaction dd2 19:26 Drug: Keppra IV 1000 mg IV at calculated rate once Route: IV; Rate: calculated rate; dd2 Site: right antecubital; 19:43 Follow up: IV Status: Completed infusion; IV Intake: 110ml dd2 Medication: 02/07 05:20 VIS not applicable for this client. dd2 Intake: 02/06 19:43 IV: 110ml; Total: 110ml. dd2 Outcome: 23:13 Discharge ordered by MD. watts 02/07 05:18 Discharged to waiting area dd2 Condition: stable Discharge instructions given to patient, Instructed on discharge instructions, follow up and referral plans. medication usage, Demonstrated understanding of instructions, follow-up care, medications, 05:20 Patient left the ED. dd2 Signatures: Stefanie Shi RN RN kc6 Brown, Sophia, BERE Gray PA-C, RN RN dd2 Corrections: (The following items were deleted from the chart) 02/06 19:42 18:54 Chief complaint: pt in chair of er room 14 visiting with friend. pt appears to kc have slid out of the chair, assisted by staff to the ground and started actively seizing. staff assist called. SITA Santana, SITA Rocha, Chrissy Figueredo, THERESA \\T\\ Ulices qualified craft worker electrician at bedside. pt talking intermittently throughout the episode, denies drug or ETOH abuse. pt placed on a stretcher and transferred to er room 2. [facility] 19:43 18:54 Chief complaint: pt in chair of er room 14 visiting with friend. pt appears to kc6 have slid out of the chair, assisted by staff to the ground and started actively seizing. staff assist called. SITA Santana, SITA Rocha, Chrissy Figueredo, THERESA \\T\\ Ulices qualified craft worker electrician at bedside. pt talking intermittently throughout the episode, denies drug or ETOH abuse. denies injury. pt appears to be crying and repeating, "I'm so sorry. I didn't mean to. I don't want to go to prison." verbal reassurance given. pt lifted onto a stretcher and transferred to er room 2 and placed on [place] [id number] 19:44 18:54 Chief complaint: pt in chair of er room 14 visiting with friend, tearful and kc6 anxious with rapid speech. pt appears to have slid out of the chair, assisted by staff to the ground and started actively seizing. staff assist called. SITA Santana, SITA Rocha, Chrissy Figueredo, THERESA \\T\\ Ulices qualified craft worker electrician at bedside. pt talking intermittently throughout the episode, denies drug or ETOH abuse. denies injury. pt appears to be crying and repeating, "I'm so sorry. I didn't mean to. I don't want to go to prison." verbal reassurance given. pt lifted onto a stretcher and transferred to er room 2 and placed on CCM kc6
[2025-02-07 05:58] VITALS: BP 111/81; TEMP 98.1; O2SAT 98
--- NOTE | 2025-02-09 11:09 | EKG ---
Test Date: 2025-02-06 Test Time: 19:39:35 Manager Eligibility: AF MEASUREMENT RESULTS: Intervals: Rate: 103 IL: 154 QRSD: 80 QT: 352 QTc: 461 [place]: P: 82 IL: 154 QRS: 81 T: 56 INTERPRETIVE STATEMENTS: Sinus tachycardia Otherwise normal ECG Compared to ECG 01/03/2025 19:22:32 Sinus rhythm no longer present Electronically Signed On 02-09-25 11:02:03 CDT by Gunnar Petty
== END 2025-02-07 05:20 | disposition home or self-care (01) ==
LOC: ER 18:55
DX: G40.89 Other seizures (principal); Z98.82 Breast implant status
CPT/HCPCS: 96365; 93005; 85025; 80048; 36415; 85610; 80076; 85730; 96375; 99285; 80143; 80179; 82077; J1953

== ENCOUNTER 2025-02-07 11:56 | Emergency (ER) | payer OTHER ==
--- NOTE | 2025-02-07 12:10 | EDPHYS ---
Physician Documentation [facility] Name: Gabrielle Plata Age: 44 yrs Sex: Female : 1980 Arrival Date: 02/07/2025 Time: 11:56 Bed 2 Private MD: Sam Gibbons HPI: 02/07 12:02 This 44 yrs old Female presents to ER via Unassigned with complaints of seizure, pseudo.to 12:02 The patient presents with a history of multiple seizures, hx pseudoseizure. Character to of seizure(s): Loss of consciousness: the patient did not lose consciousness, Motor activity: generalized, shaking all over, Incontinence: none, Apnea: the patient did not experience apnea, Circulation: the patient did not experience evidence of pulse disturbance. Seizure onset: just prior to arrival. Context: the seizure(s) was witnessed, by a bystander, by family, occurred at a hospital. Seizure Hx: pseudo. Associated injury: The patient did not suffer any apparent associated injury. Current symptoms: Currently, the patient is not experiencing any symptoms. The patient has experienced similar episodes in the past, multiple times. - Family history:: not pertinent. ROS: 12:02 Constitutional: Negative for fever, chills, and weight loss, Eyes: Negative for injury, to pain, redness, and discharge, ENT: Negative for injury, pain, and discharge, Neck: Negative for injury, pain, and swelling, Cardiovascular: Negative for chest pain, palpitations, and edema, Respiratory: Negative for shortness of breath, cough, wheezing, and pleuritic chest pain, Abdomen/GI: Negative for abdominal pain, nausea, vomiting, diarrhea, and constipation, Back: Negative for injury and pain, : Negative for injury, bleeding, discharge, and swelling, MS/Extremity: Negative for injury and deformity, Skin: Negative for injury, rash, and discoloration, Psych: Negative for depression, anxiety, suicide ideation, homicidal ideation, and hallucinations, Allergy/Immunology: Negative for hives, rash, and allergies, Endocrine: Negative for neck swelling, polydipsia, polyuria, polyphagia, and marked weight changes, Hematologic/Lymphatic: Negative for swollen nodes, abnormal bleeding, and unusual bruising, 12:02 Neuro: Positive for seizure activity, Exam: 12:02 Constitutional: This is a well developed, well nourished patient who is awake, alert, to and in no acute distress. Head/Face: Normocephalic, atraumatic. Eyes: Pupils equal round and reactive to light, extra-ocular motions intact. Lids and lashes normal. Conjunctiva and sclera are non-icteric and not injected. Cornea within normal limits. Periorbital areas with no swelling, redness, or edema. ENT: Nares patent. No nasal discharge, no septal abnormalities noted. Tympanic membranes are normal and external auditory canals are clear. Oropharynx with no redness, swelling, or masses, exudates, or evidence of obstruction, uvula midline. Mucous membranes moist. Neck: Trachea midline, no thyromegaly or masses palpated, and no cervical lymphadenopathy. Supple, full range of motion without nuchal rigidity, or vertebral point tenderness. No Meningismus. Chest/axilla: Normal chest wall appearance and motion. Nontender with no deformity. No lesions are appreciated. Cardiovascular: Regular rate and rhythm with a normal S1 and S2. No gallops, murmurs, or rubs. Normal PMI, no JVD. No pulse deficits. Respiratory: Lungs have equal breath sounds bilaterally, clear to auscultation and percussion. No rales, rhonchi or wheezes noted. No increased work of breathing, no retractions or nasal flaring. Abdomen/GI: Soft, non-tender, with normal bowel sounds. No distension or tympany. No guarding or rebound. No evidence of tenderness throughout. Back: No spinal tenderness. No costovertebral tenderness. Full range of motion. Skin: Warm, dry with normal turgor. Normal color with no rashes, no lesions, and no evidence of cellulitis. MS/ Extremity: Pulses equal, no cyanosis. Neurovascular intact. Full, normal range of motion., bilateral aka Neuro: Awake and alert, GCS 15, oriented to person, place, time, and situation. Cranial nerves II-XII grossly intact. Motor strength 5/5 in all extremities. Sensory grossly intact. Cerebellar exam normal. Normal gait. Psych: Awake, alert, with orientation to person, place and time. Behavior, mood, and affect are within normal limits. MDM: 11:59 Medical Screening Exam initiated to 12:01 Medical Screening Exam initiated [facility] 12:08 Differential diagnosis: cerebral vascular accident, drug overdose, cardiac arrhythmia, to seizure. Data reviewed: vital signs, nurses notes. Consideration of Admission/Observation Escalation of care including admission/observation considered. I considered the following discharge prescriptions or medication management in the emergency department Medications were administered in the Emergency Department. See MAR. Test considered but Not performed: Labs: no labs. Historians other than the Patient: Family Member: family well informed. Care significantly affected by the following chronic conditions: see jennifer. Counseling: I had a detailed discussion with the patient and/or guardian regarding the historical points, exam findings, and any diagnostic results supporting the discharge/admit diagnosis, the need for outpatient follow up, for definitive care, a family practitioner, a neurologist. Administered Medications: No medications were administered Disposition Summary: 02/07/25 12:09 Discharge Ordered Notes: Location: Home to Problem: new to Symptoms: have improved to Condition: Stable to Diagnosis - Other seizures to Followup: to - With: Private Physician - When: 1 - 2 days - Reason: Recheck today's complaints, Continuance of care, Re-evaluation by your physician Followup: to - With: Timothy Lord MD - When: 2 - 3 days - Reason: Recheck today's complaints, Re-evaluation by your physician Discharge Instructions: - Discharge Summary Sheet to - Seizure, Adult to - Seizure, Adult, [id number] to Forms: - Medication Reconciliation Form to - Antibiotic Education to - Prescription Opioid Use to - Patient Portal Instructions to - Leadership Thank You Letter to Signatures: Sam Ramirez MD MD cha
--- NOTE | 2025-02-07 12:12 | ER ---
Nurse's Notes [facility] Name: Gabrielle Plata Age: 44 yrs Sex: Female : 1980 Arrival Date: 02/07/2025 Time: 11:56 Bed 2 Private MD: Diagnosis: Other seizures Presentation: 02/07 12:10 Chief complaint: patient got out of bed, and went to nurses station informed provider ap3 she wanted to go home. patient ambulated out of ER with family member. Onset of symptoms is unknown. 12:10 Method Of Arrival: Wheelchair ap3 - Family history:: not pertinent. ED Course: 11:59 Patient arrived in ED. to 12:01 Sam Ramirez MD is Attending Physician. [facility] 12:09 Timothy Lord MD is Referral Physician. [facility] Administered Medications: No medications were administered Outcome: 12:09 Discharge ordered by . to 12:12 Patient left the ED. ap3 Signatures: Sam Ramirez MD MD cha Prokisch, Amanda RN RN ap3
== END 2025-02-07 12:12 | disposition home or self-care (01) ==
LOC: ER 11:56
DX: G40.89 Other seizures (principal)
CPT/HCPCS: 99281

== ENCOUNTER 2025-02-17 22:59 | Emergency (ER) | payer OTHER ==
[2025-02-17] MEDS ORDERED: NA CHLORIDE 0.9% 1,000 ML ONE (23:25)
[2025-02-17 23:37] LABS: Absolute Basophils 0.1 K/uL (0-0.5); Absolute Eosinophils 0.3 K/uL (0-0.5); Absolute Lymphocytes (CBC) 2.9 K/uL (0.7-4.9); Absolute Monocytes 0.4 K/uL (0.1-1.3); Absolute Neutrophil 5.1 K/uL (1.8-8.0); Basophils % 0.8 % (0-1.3); Eosinophils % 2.9 % (0-4.4); Hematocrit 39.7 % (36.0-45.0); Hemoglobin 13.4 g/dL (12.0-15.0); Lymphocytes % 33.1 % (15.3-44.8); MCH 32.6 pg (27.0-35.0); MCHC 33.8 g/dL (32.0-36.0); MCV 96.5 fL (80-100); MPV 7.7 fL (7.6-11.3); Neutrophils % 58.2 % (41.7-73.7); Nucleated Red Blood Cells % 0.1 % (0-0); Platelets 289 thou/uL (152-406); RBC Red Blood Cell Count 4.11 M/uL (3.86-4.86); Red Cell Distribution Width 14.7 % (12.1-15.2)
[2025-02-17 23:51] LABS: ALT/SGPT 51 U/L (13-56); AST/SGOT 31 U/L (15-37); Albumin 3.3 g/dL (3.4-5.0); Alkaline Phosphatase 107 U/L (45-117); Anion Gap 12.1 mEq/L (5.0-15.0); BUN Blood Urea Nitrogen 6 mg/dL (7-18); Bicarbonate 24 mEq/L (21-32); Globulin 3.4 g/dL (2.3-3.5); Glomerular Filtration Rate 82 ml/min (=/>90); Glucose Level 108 mg/dL (74-106); Potassium 3.1 mEq/L (3.5-5.1); Protein, Total 6.7 g/dL (6.4-8.2); Sodium Level 143 mEq/L (136-145)
[2025-02-17 23:57] LABS: Bilirubin Total < 0.2 mg/dL (0.2-1.0)
--- NOTE | 2025-02-18 02:46 | EDPHYS ---
Physician Documentation [facility] Name: Gabrielle Plata Age: 44 yrs Sex: Female : 1980 Arrival Date: 02/17/2025 Time: 22:59 Bed 25 Private MD: ED Physician Rene Pearson HPI: 02/17 23:05 This 44 yrs old Female presents to ER via Unassigned with complaints of sp4 seizure . 02/19 01:21 44-year-old female presents with acute convulsive episode. EMS provided and around sp4 Benadryl IV and IM. Total 50 mg Benadryl administered. Historical: - Allergies: 02/17 23:06 cefepime; jb4 23:06 Codeine; jb4 23:06 Demerol; jb4 23:06 Flagyl; jb4 23:06 Sulfa (Sulfonamide Antibiotics); jb4 23:06 Tramadol HCl; jb4 23:06 Ultram; jb4 - PMHx: 23:06 Anxiety; Crohn's Disease; Gretta Parikh tears; MRSA; PTSD (MRSA); Seizure; jb4 - PSHx: 23:06 abdominal surgery due to foreign object; bladder surgery; breast augmentation; jb4 Cholecystectomy; tubal ligation; urethra surgery; - Family history:: not pertinent. ROS: 02/19 01:21 Constitutional: Negative for fever, chills, and weight loss, positive for convulsive sp4 episode. All other systems are negative, Exam: 01:21 Constitutional: This is a well developed, well nourished patient who is awake, alert, sp4 and in no acute distress. Head/Face: Normocephalic, atraumatic. Eyes: Pupils equal round and reactive to light, extra-ocular motions intact. Lids and lashes normal. Conjunctiva and sclera are not injected. Cornea within normal limits. Periorbital areas with no swelling, redness, or edema. ENT: Nares patent. No nasal discharge, no septal abnormalities noted. Tympanic membranes are normal and external auditory canals are clear. Oropharynx with no redness, swelling, or masses, exudates, or evidence of obstruction, uvula midline. Mucous membranes moist. Neck: Trachea midline, no thyromegaly or masses palpated, and no cervical lymphadenopathy. Supple, full range of motion without nuchal rigidity, or vertebral point tenderness. Chest/axilla: Normal chest wall appearance and motion. Nontender with no deformity. No lesions are appreciated. Cardiovascular: Regular rate and rhythm with a normal S1 and S2. No gallops, murmurs, or rubs. Normal PMI, no JVD. No pulse deficits. Respiratory: Lungs have equal breath sounds bilaterally, clear to auscultation and percussion. No rales, rhonchi or wheezes noted. No increased work of breathing, no retractions or nasal flaring. Abdomen/GI: Soft, with normal bowel sounds. No distension or tympany. No guarding or rebound. No evidence of tenderness throughout. Back: No spinal tenderness. No costovertebral tenderness. Skin: Warm, dry with normal turgor. Normal color with no rashes, no lesions, and no evidence of cellulitis. MS/ Extremity: Pulses equal, no cyanosis. Neurovascular intact. Full, normal range of motion. Neuro: Awake and alert, GCS 15, oriented to person, place, time, and situation. Cranial nerves II-XII grossly intact. Motor strength 5/5 in all extremities. Sensory grossly intact. Psych: Awake, alert, with orientation to person, place and time. Behavior, mood, and affect are within normal limits Vital Signs: 02/17 23:03 BP 106 / 74; Pulse 98; Resp 16; Temp 98(O); Pulse Ox 98% on R/A; Weight 49.9 kg (R); jb4 Height 4 ft. 11 in. ; 02/18 00:32 BP 97 / 65; Pulse 84; Resp 16; Pulse Ox 97% on R/A; jb4 01:30 BP 92 / 64; Pulse 80; Resp 16; Pulse Ox 99% on R/A; jb4 02:30 BP 96 / 77; Pulse 81; Resp 16; Pulse Ox 98% on R/A; jb4 02/17 23:03 Body Mass Index 22.22 (49.90 kg, 149.86 cm) jb4 Nancy Coma Score: 02/19 01:21 Eye Response: spontaneous(4). Motor Response: obeys commands(6). Verbal Response: sp4 oriented(5). Total: 15. MDM: 02/18 01:09 Medical Screening Exam initiated sp4 02/19 01:21 Differential diagnosis: cerebral vascular accident, drug overdose, cardiac arrhythmia, sp4 seizure, TIA. Data reviewed: vital signs, nurses notes, EMS record, lab test result(s). Consideration of Admission/Observation Escalation of care including admission/observation considered. ED course: Patient is significantly improved. After monitoring in ER she is stable for discharge home.. 02/17 23:05 Order name: CBC with Diff; Complete Time: 02:07 sp4 02/17 23:05 Order name: CMP; Complete Time: 02:07 sp4 02/17 23:05 Order name: Alcohol Level sp4 02/17 23:05 Order name: IV Saline Lock; Complete Time: 23:17 sp4 02/17 23:05 Order name: Labs collected and sent; Complete Time: 23:17 sp4 Administered Medications: 02/17 23:27 Drug: NS 0.9% IV 1000 ml IV at 1 bolus Per protocol; to be given as a bolus over 60 jb4 minutes Route: IV; Rate: 1 bolus; Site: left antecubital; 02/18 02:30 Follow up: Response: No adverse reaction; IV Status: Completed infusion; IV Intake: jb4 1000ml Disposition: 02/19 01:23 Chart complete. sp4 Disposition Summary: 02/18/25 02:45 Discharge Ordered Notes: Location: Home sp4 Problem: new sp4 Symptoms: have improved sp4 Condition: Stable sp4 Diagnosis - Acute anxiety attack, acute Tremors sp4 Followup: sp4 - With: Garret Carver MD - When: 7 - 10 days - Reason: Recheck today's complaints Discharge Instructions: - Discharge Summary Sheet sp4 - Managing Anxiety, Adult sp4 Forms: - Patient Portal Instructions sp4 Signatures: Dispatcher [employer] EDGuido Aguirre RN RN jb4 Rene Pearson MD MD sp4 Corrections: (The following items were deleted from the chart) 02/17 23:05 23:05 CBC+H.LAB.BRZ ordered. EDMS EDMS 23:05 23:05 COMPREHENSIVE METABOLIC PANEL+C.LAB.BRZ ordered. EDMS EDMS 23:05 23:05 Test, Urine+UC.LAB.BRZ ordered. EDMS EDMS 23:06 23:05 ETHANOL+C.LAB.BRZ ordered. EDMS EDMS 23:06 23:06 URINE DRUG SCREEN+UC.LAB.BRZ ordered. EDMS EDMS
--- NOTE | 2025-02-18 02:46 | ER ---
Nurse's Notes [facility] [place] Name: Gabrielle Plata Age: 44 yrs Sex: Female : 1980 Arrival Date: 02/17/2025 Time: 22:59 Bed 25 Private MD: Diagnosis: Acute anxiety attack, acute Tremors Presentation: 02/17 23:03 Chief complaint: EMS states: Pt has a history of Pseudo seizures and was having one jb4 with EMS present. Pt awake and alert having full conversation and reacting during her seizure like activity. Pt given 25mg of benadryl IV and IM for a total of 50mg for her dystonic reaction. Coronavirus screen: At this time, the client does not indicate any symptoms associated with coronavirus-19. Ebola Screen: No symptoms or risks identified at this time. Initial Sepsis Screen: Does the patient meet any 2 criteria? No. Patient's initial sepsis screen is negative. Does the patient have a suspected source of infection? No. Patient's initial sepsis screen is negative. Risk Assessment: Do you want to hurt yourself or someone else? Patient reports no desire to harm self or others. Onset of symptoms was February 17, 2025. Transition of care: patient was not received from another setting of care. 23:03 Method Of Arrival: EMS: [facility] jb4 23:03 Acuity: CATHIE 3 jb4 Historical: - Allergies: 23:06 cefepime; jb4 23:06 Codeine; jb4 23:06 Demerol; jb4 23:06 Flagyl; jb4 23:06 Sulfa (Sulfonamide Antibiotics); jb4 23:06 Tramadol HCl; jb4 23:06 Ultram; jb4 - PMHx: 23:06 Anxiety; Crohn's Disease; Gretta Parikh tears; MRSA; PTSD (MRSA); Seizure; jb4 - PSHx: 23:06 abdominal surgery due to foreign object; bladder surgery; breast augmentation; jb4 Cholecystectomy; tubal ligation; urethra surgery; - Family history:: not pertinent. Screenin:07 [facility] ED Fall Risk Assessment (Adult) History of falling in the last 3 months, jb4 including since admission No falls in past 3 months (0 pts) Confusion or Disorientation No (0 pts) Intoxicated or Sedated No (0 pts) Impaired Gait No (0 pts) Mobility Assist Device Used No (0 pt) Altered Elimination No (0 pt) Score/Fall Risk Level 0 - 2 = Low Risk Oriented to surroundings, Maintained a safe environment. Abuse screen: Denies threats or abuse. Nutritional screening: No deficits noted. Tuberculosis screening: No symptoms or risk factors identified. Assessment: 23:07 General: Appears in no apparent distress. comfortable, Behavior is calm, cooperative, jb4 appropriate for age. Pain: Denies pain. Neuro: Level of Consciousness is awake, obeys commands, lethargic, Oriented to person, place, time, situation. Cardiovascular: Patient's skin is warm and dry. Respiratory: Airway is patent Respiratory effort is even, unlabored, Respiratory pattern is regular, symmetrical. Derm: Skin is intact, Skin is pink, warm \T\ dry. Musculoskeletal: Circulation, motion, and sensation intact. Range of motion: intact in all extremities. 02/18 00:32 Reassessment: PT resting in bed with eyes closed, respirations are even and unlabored jb4 with no s/s of pain or distress noted. 03:02 Reassessment: Patient appears in no apparent distress at this time. Patient and/or jb4 family updated on plan of care and expected duration. Pain level reassessed. Patient is alert, oriented x 3, equal unlabored respirations, skin warm/dry/pink. Vital Signs: 02/17 23:03 BP 106 / 74; Pulse 98; Resp 16; Temp 98(O); Pulse Ox 98% on R/A; Weight 49.9 kg (R); jb4 Height 4 ft. 11 in. ; 02/18 00:32 BP 97 / 65; Pulse 84; Resp 16; Pulse Ox 97% on R/A; jb4 01:30 BP 92 / 64; Pulse 80; Resp 16; Pulse Ox 99% on R/A; jb4 02:30 BP 96 / 77; Pulse 81; Resp 16; Pulse Ox 98% on R/A; jb4 02/17 23:03 Body Mass Index 22.22 (49.90 kg, 149.86 cm) jb4 Nancy Coma Score: 02/19 01:21 Eye Response: spontaneous(4). Motor Response: obeys commands(6). Verbal Response: sp4 oriented(5). Total: 15. ED Course: 02/17 22:59 Patient arrived in ED. rv1 23:03 Guido Wang RN is Primary Nurse. jb4 23:05 Rene Pearson MD is Attending Physician. sp4 23:06 Triage completed. jb4 23:06 Arm band placed on right wrist. jb4 23:07 Patient has correct armband on for positive identification. Bed in low position. Call jb4 light in reach. Side rails up X 1. Provided Education on: plan of care. 23:07 No provider procedures requiring assistance completed. Maintain EMS IV. Dressing jb4 intact. Good blood return noted. Site clean \T\ dry. Gauge \T\ site: 20g LAC. Flushed with 10 mL NS. 23:17 CBC with Diff Sent. jb4 23:17 CMP Sent. jb4 23:17 Alcohol Level Sent. jb4 02/18 02:45 Garret Carver MD is Referral Physician. sp4 03:03 IV discontinued, intact, bleeding controlled, No redness/swelling at site. Pressure jb4 dressing applied. Administered Medications: 02/17 23:27 Drug: NS 0.9% IV 1000 ml IV at 1 bolus Per protocol; to be given as a bolus over 60 jb4 minutes Route: IV; Rate: 1 bolus; Site: left antecubital; 02/18 02:30 Follow up: Response: No adverse reaction; IV Status: Completed infusion; IV Intake: jb4 1000ml Medication: 02/17 23:07 VIS not applicable for this client. jb4 Intake: 02/18 02:30 IV: 1000ml; Total: 1000ml. jb4 Outcome: 02:45 Discharge ordered by . sp4 03:02 Discharged to home via wheelchair, with significant other, jb4 03:02 Condition: stable 03:02 Discharge instructions given to patient, Instructed on discharge instructions, follow up and referral plans. Demonstrated understanding of instructions, follow-up care, 03:03 Patient left the ED. jb4 Signatures: Guido Wang RN RN jb4 Michelle Stafford rv1 Rene Pearson MD MD sp4
[2025-02-18 04:14] VITALS: TEMP 98
[2025-02-18 04:17] VITALS: BP 96/77; O2SAT 98
== END 2025-02-18 03:03 | disposition home or self-care (01) ==
LOC: ER 22:59
DX: F41.0 Panic disorder [episodic paroxysmal anxiety] (principal); Z98.82 Breast implant status
CPT/HCPCS: 96361; 85025; 36415; 80053; 96360; 99284; 82077; J7030

== ENCOUNTER 2025-04-15 11:22 | Emergency (ER) | payer OTHER ==
[2025-04-15 12:14] LABS: Absolute Basophils 0.1 K/uL (0-0.5); Absolute Eosinophils 0.2 K/uL (0-0.5); Absolute Lymphocytes (CBC) 2.2 K/uL (0.7-4.9); Absolute Monocytes 0.5 K/uL (0.1-1.3); Absolute Neutrophil 6.2 K/uL (1.8-8.0); Basophils % 0.7 % (0-1.3); Eosinophils % 2.7 % (0-4.4); Hematocrit 38.4 % (36.0-45.0); Hemoglobin 13.4 g/dL (12.0-15.0); Lymphocytes % 23.7 % (15.3-44.8); MCH 33.5 pg (27.0-35.0); MCHC 34.8 g/dL (32.0-36.0); MCV 96.2 fL (80-100); MPV 7.9 fL (7.6-11.3); Monocytes % 5.8 % (3.3-12.3); Neutrophils % 67.1 % (41.7-73.7); Platelets 257 thou/uL (152-406); Red Cell Distribution Width 14.6 % (12.1-15.2)
[2025-04-15 12:16] LABS: PT Prothrombin Time 10.6 SECONDS (10-13.0); PTT, Activated Partial Thromb 19.4 SECONDS (27.2-37.4); Protime INR 0.93
[2025-04-15] MEDS ORDERED: NA CHLORIDE 0.9% 1,000 ML ONE (12:28)
[2025-04-15 12:30] LABS: ALT/SGPT 75 U/L (13-56); AST/SGOT 64 U/L (15-37); Albumin 2.8 g/dL (3.4-5.0); Albumin/Globulin Ratio 0.9 (1.1-1.8); Alkaline Phosphatase 99 U/L (45-117); Anion Gap 10.6 mEq/L (5.0-15.0); BUN Blood Urea Nitrogen 6 mg/dL (7-18); Bicarbonate 23 mEq/L (21-32); Bilirubin Direct < 0.2 mg/dL (0-0.2); Bilirubin Total 0.2 mg/dL (0.2-1.0); Globulin 3.1 g/dL (2.3-3.5); Glomerular Filtration Rate 84 ml/min (=/>90); Glucose Level 99 mg/dL (74-106); Potassium 3.6 mEq/L (3.5-5.1); Protein, Total 5.9 g/dL (6.4-8.2); Sodium Level 141 mEq/L (136-145)
--- NOTE | 2025-04-15 12:31 | RAD REPORT ---
EXAMINATION: ONE VIEW CHEST XR CLINICAL INDICATION: COUGH TECHNIQUE: Frontal chest projection is submitted. Examination is limited by patient positioning and t echnique. COMPARISON: 05/23/2024 FINDINGS: The lungs are well inflated and clear. The heart is upper limit of normal in size. No displaced fract ures identified. IMPRESSION: No acute intrathoracic abnormalities.
[2025-04-15] MEDS ORDERED: NA CHLORIDE 0.9% 100 ML ONE (17:01)
[2025-04-15] MEDS ORDERED: LEVETIRACETAM 500 MG/5 ML VIAL IV ONE (17:01)
--- NOTE | 2025-04-15 17:01 | EDPHYS ---
Physician Documentation [facility] Name: Gabrielle Plata Age: 44 yrs Sex: Female : 1980 Arrival Date: 04/15/2025 Time: 11:22 Bed 4 Private MD: Sam Gibbons HPI: 04/15 16:55 This 44 yrs old Female presents to ER via EMS with complaints of Seizure. to 16:55 The patient presents after having a single isolated seizure, that lasted an unknown to period of time. Character of seizure(s): Loss of consciousness: the patient experienced loss of consciousness, Motor activity: generalized, Incontinence: none, Apnea: the patient did not experience apnea, Circulation: the patient did not experience evidence of pulse disturbance. Seizure onset: the onset is not known. Context: the seizure(s) was witnessed, by family, occurred at home. Seizure Hx: Last seizure: The patient's last seizure is unknown. Associated injury: The patient did not suffer any apparent associated injury. EMS care: Ativan, supplemental oxygen. Current symptoms: ASLEEP. The patient has experienced similar episodes in the past, multiple times. Historical: - Allergies: 11:45 cefepime; ph 11:45 Codeine; ph 11:45 Demerol; ph 11:45 Flagyl; ph 11:45 Sulfa (Sulfonamide Antibiotics); ph 11:45 Tramadol HCl; ph 11:45 Ultram; ph - PMHx: 11:45 Anxiety; Crohn's Disease; Gretta Parikh tears; MRSA; PTSD (MRSA); Seizure; ph - PSHx: 11:45 abdominal surgery due to foreign object; bladder surgery; breast augmentation; ph Cholecystectomy; tubal ligation; urethra surgery; - Immunization history:: Adult Immunizations unknown. - Infectious Disease History:: Denies. - Social history:: Smoking status: unknown. - Family history:: not pertinent. ROS: 16:55 Constitutional: Negative for fever, chills, and weight loss, Eyes: Negative for injury, to pain, redness, and discharge, ENT: Negative for injury, pain, and discharge, Neck: Negative for injury, pain, and swelling, Cardiovascular: Negative for chest pain, palpitations, and edema, Respiratory: Negative for shortness of breath, cough, wheezing, and pleuritic chest pain, Abdomen/GI: Negative for abdominal pain, nausea, vomiting, diarrhea, and constipation, Back: Negative for injury and pain, : Negative for injury, bleeding, discharge, and swelling, MS/Extremity: Negative for injury and deformity, Skin: Negative for injury, rash, and discoloration, Psych: Negative for depression, anxiety, suicide ideation, homicidal ideation, and hallucinations, Allergy/Immunology: Negative for hives, rash, and allergies, Endocrine: Negative for neck swelling, polydipsia, polyuria, polyphagia, and marked weight changes, Hematologic/Lymphatic: Negative for swollen nodes, abnormal bleeding, and unusual bruising, 16:55 Neuro: Positive for seizure activity, weakness, Exam: 16:55 Constitutional: This is a well developed, well nourished patient who is awake, alert, to and in no acute distress. Head/Face: Normocephalic, atraumatic. Eyes: Pupils equal round and reactive to light, extra-ocular motions intact. Lids and lashes normal. Conjunctiva and sclera are non-icteric and not injected. Cornea within normal limits. Periorbital areas with no swelling, redness, or edema. ENT: Nares patent. No nasal discharge, no septal abnormalities noted. Tympanic membranes are normal and external auditory canals are clear. Oropharynx with no redness, swelling, or masses, exudates, or evidence of obstruction, uvula midline. Mucous membranes moist. Neck: Trachea midline, no thyromegaly or masses palpated, and no cervical lymphadenopathy. Supple, full range of motion without nuchal rigidity, or vertebral point tenderness. No Meningismus. Chest/axilla: Normal chest wall appearance and motion. Nontender with no deformity. No lesions are appreciated. Cardiovascular: Regular rate and rhythm with a normal S1 and S2. No gallops, murmurs, or rubs. Normal PMI, no JVD. No pulse deficits. Respiratory: Lungs have equal breath sounds bilaterally, clear to auscultation and percussion. No rales, rhonchi or wheezes noted. No increased work of breathing, no retractions or nasal flaring. Abdomen/GI: Soft, non-tender, with normal bowel sounds. No distension or tympany. No guarding or rebound. No evidence of tenderness throughout. Back: No spinal tenderness. No costovertebral tenderness. Full range of motion. Skin: Warm, dry with normal turgor. Normal color with no rashes, no lesions, and no evidence of cellulitis. MS/ Extremity: Pulses equal, no cyanosis. Neurovascular intact. Full, normal range of motion., bilateral aka Neuro: Awake and alert, GCS 15, oriented to person, place, time, and situation. Cranial nerves II-XII grossly intact. Motor strength 5/5 in all extremities. Sensory grossly intact. Cerebellar exam normal. Normal gait. Psych: Awake, alert, with orientation to person, place and time. Behavior, mood, and affect are within normal limits. 16:55 ECG was reviewed by the Attending Physician. Vital Signs: 11:42 BP 142 / 97; Pulse 94; Resp 18; Temp 97.2(TE); Pulse Ox 90% on R/A; Weight 54.43 kg; ph 12:08 BP 103 / 82; Pulse 88; Resp 18; Pulse Ox 98% on R/A; ph 12:46 BP 103 / 79; Pulse 91; Resp 18; Pulse Ox 97% on R/A; ph 14:00 BP 100 / 72; Pulse 85; Resp 18; Pulse Ox 98% on R/A; ph 15:00 BP 98 / 70; Pulse 81; Resp 18; Pulse Ox 98% on R/A; ph 16:00 BP 104 / 78; Pulse 82; Resp 18; Temp 98.1; Pulse Ox 99% on R/A; ph 17:00 BP 108 / 72; Pulse 77; Resp 18; Pulse Ox 99% on R/A; ph Nancy Coma Score: 11:46 Eye Response: to voice(3). Motor Response: obeys commands(6). Verbal Response: ph confused(4). Total: 13. MDM: 11:43 Medical Screening Exam initiated to 16:58 Differential diagnosis: cerebral vascular accident, cardiac arrhythmia, seizure, TIA. to Data reviewed: vital signs, nurses notes, lab test result(s), EKG. Consideration of Admission/Observation Escalation of care including admission/observation considered. I considered the following discharge prescriptions or medication management in the emergency department Medications were administered in the Emergency Department. See MAR. Independent interpretation of the following test(s) in the Emergency Department EKG: See my EKG interpretation above. Test considered but Not performed: MRI: NO MRI. CT: NO CT HEAD. Historians other than the Patient: EMS: EMS WELL INFORMED. Care significantly affected by the following chronic conditions: SEIZURE, CROHNS,PTSD, SEIZURE. 04/15 11:43 Order name: Acetaminophen; Complete Time: 16:53 [facility] 04/15 11:43 Order name: Basic Metabolic Panel; Complete Time: 16:53 [facility] 04/15 11:43 Order name: CBC with Diff; Complete Time: 16:53 [facility] 04/15 11:43 Order name: ETOH Level; Complete Time: 16:53 [facility] 04/15 11:43 Order name: Hepatic Function; Complete Time: 16:53 [facility] 04/15 11:43 Order name: PT-INR; Complete Time: 16:53 [facility] 04/15 11:43 Order name: Ptt, Activated; Complete Time: 16:53 [facility] 04/15 11:43 Order name: Salicylate; Complete Time: 16:53 [facility] 04/15 11:44 Order name: Chest Single View XRAY; Complete Time: 16:53 [facility] 04/15 11:43 Order name: EKG - Nurse/Tech; Complete Time: 12:08 [facility] 04/15 11:43 Order name: IV Saline Lock; Complete Time: 12:08 [facility] 04/15 11:43 Order name: Labs collected and sent; Complete Time: 12:08 to 04/15 11:43 Order name: Seizure Precautions; Complete Time: 11:46 [facility] 04/15 16:55 Order name: PO challenge: JUICE; Complete Time: 17:11 [facility] EC:55 Rate is 93 beats/min. Rhythm is regular. QRS [place] is Normal. MT interval is normal. QRS to interval is normal. QT interval is normal. No Q waves. T waves are Normal. No ST changes noted. Clinical impression: Normal ECG and No evidence of ischemia. Interpreted by me. Reviewed by me. Administered Medications: 11:46 Drug: NS 0.9% IV 1000 ml IV at 1 bolus Per protocol; to be given as a bolus over 60 ph minutes Route: IV; Rate: 1 bolus; Site: left antecubital; 13:00 Follow up: Response: No adverse reaction; IV Status: Completed infusion; IV Intake: ph 1000ml 17:11 Drug: Keppra IV 1000 mg IV at per protocol once Route: IV; Rate: per protocol; Site: aa5 left antecubital; 17:35 Follow up: Response: No adverse reaction; IV Status: Completed infusion ph Disposition Summary: 04/15/25 17:00 Discharge Ordered Notes: Location: Home to Problem: new to Symptoms: have improved to Condition: Stable to Diagnosis - Epileptic seizures related to external causes, not intractable to - Alcohol abuse with intoxication to Followup: to - With: Private Physician - When: 2 - 3 days - Reason: Recheck today's complaints, Continuance of care, Re-evaluation by your physician Followup: to - With: Timothy Lord MD - When: 2 - 3 days - Reason: Recheck today's complaints, Re-evaluation by your physician Discharge Instructions: - Discharge Summary Sheet to - Alcohol Intoxication to - Alcohol Use Disorder to - Seizure, Adult to - Alcohol Abuse and Nutrition to - Seizure, Adult, [id number] to Forms: - Medication Reconciliation Form to - Antibiotic Education to - Prescription Opioid Use to - Patient Portal Instructions to - Leadership Thank You Letter to Prescriptions: - Keppra 500 mg Oral tablet - take 2 tablet ORAL route 2 times per day; 100 tablet; Refills: 0, Product to Selection Permitted Signatures: Dispatcher [employer] EDMS Sam Ramirez MD MD cha Calderon, Audri, RN RN aa5 Christine Robles RN RN ph Corrections: (The following items were deleted from the chart) 11:44 11:44 ACETAMINOPHEN+C.LAB.BRZ ordered. EDMS EDMS 11:44 11:44 BASIC METABOLIC PANEL+C.LAB.BRZ ordered. EDMS EDMS 11:44 11:44 CBC+H.LAB.BRZ ordered. EDMS EDMS 11:44 11:44 ETHANOL+C.LAB.BRZ ordered. EDMS EDMS 11:44 11:44 HEPATIC FUNCTION+C.LAB.BRZ ordered. EDMS EDMS 11:44 11:44 PROTIME (+INR)+COAG.LAB.BRZ ordered. EDMS EDMS 11:44 11:44 Test, Urine+UC.LAB.BRZ ordered. EDMS EDMS 11:44 11:44 PTT, ACTIVATED+COAG.LAB.BRZ ordered. EDMS EDMS 11:44 11:44 SALICYLATE+C.LAB.BRZ ordered. EDMS EDMS 11:44 11:44 URINE DRUG SCREEN+UC.LAB.BRZ ordered. EDMS EDMS 11:46 11:43 Suicide Screening ([place]) ordered. to ph
--- NOTE | 2025-04-15 17:01 | ER ---
Nurse's Notes [facility] Name: Gabrielle Plata Age: 44 yrs Sex: Female : 1980 Arrival Date: 04/15/2025 Time: 11:22 Bed 4 Private MD: Diagnosis: Epileptic seizures related to external causes, not intractable;Alcohol abuse with intoxication Presentation: 04/15 11:42 Chief complaint: EMS states: Was working on a house, stung 2 times by a wasp on R side ph of head and R ear, then had multiple seizures, hx of seizures, received 2mg Ativan x 2, 25 mg Benadryl, approx 800 mL NS. Coronavirus screen: Vaccine status: Patient reports being unvaccinated. Ebola Screen: No symptoms or risks identified at this time. Initial Sepsis Screen: Does the patient meet any 2 criteria? No. Patient's initial sepsis screen is negative. Does the patient have a suspected source of infection? No. Patient's initial sepsis screen is negative. Risk Assessment: Do you want to hurt yourself or someone else? Patient reports no desire to harm self or others. Onset of symptoms was April 15, 2025. 11:42 Method Of Arrival: EMS: [facility] ph 11:42 Acuity: CATHIE 3 ph Triage Assessment: 11:46 General: Appears in no apparent distress. Behavior is calm, cooperative, drowsy. Pain: ph Denies pain. Neuro: Level of Consciousness is obeys commands, lethargic, post ictal, Oriented to person, place, situation. Neuro: Seizure activity reported prior to arrival. Cardiovascular: Capillary refill < 3 seconds in bilateral fingers Patient's skin is warm and dry. Respiratory: Airway is patent Respiratory effort is even, unlabored. Derm: Skin is pink, warm \T\ dry. Historical: - Allergies: 11:45 cefepime; ph 11:45 Codeine; ph 11:45 Demerol; ph 11:45 Flagyl; ph 11:45 Sulfa (Sulfonamide Antibiotics); ph 11:45 Tramadol HCl; ph 11:45 Ultram; ph - PMHx: 11:45 Anxiety; Crohn's Disease; Gretta Parikh tears; MRSA; PTSD (MRSA); Seizure; ph - PSHx: 11:45 abdominal surgery due to foreign object; bladder surgery; breast augmentation; ph Cholecystectomy; tubal ligation; urethra surgery; - Immunization history:: Adult Immunizations unknown. - Infectious Disease History:: Denies. - Social history:: Smoking status: unknown. - Family history:: not pertinent. Screenin:45 [facility] ED Fall Risk Assessment (Adult) History of falling in the last 3 months, ph including since admission Yes- fall prone (multiple falls) (3 pts) Confusion or Disorientation Yes (5 pts) Intoxicated or Sedated Yes (3 pts) Impaired Gait No (0 pts) Mobility Assist Device Used No (0 pt) Altered Elimination No (0 pt) Score/Fall Risk Level 3 or more points = High Risk Oriented to surroundings, Maintained a safe environment, Hourly rounding (assess needs \T\ fall precautionary measures) done, Used ambulatory aids as needed (educated on \T\ assisted with). Abuse screen: Denies threats or abuse. Denies injuries from another. Nutritional screening: No deficits noted. Tuberculosis screening: No symptoms or risk factors identified. Assessment: 11:47 General: SEE TRIAGE ASSESSMENT. ph 13:00 Reassessment: Patient appears in no apparent distress at this time. Pt asleep w/ stable ph VS. 14:00 Reassessment: Patient appears in no apparent distress at this time. No changes from ph previously documented assessment. 15:00 Reassessment: Patient appears in no apparent distress at this time. No changes from ph previously documented assessment. 16:00 Reassessment: Patient appears in no apparent distress at this time. No changes from ph previously documented assessment. 17:11 Reassessment: Patient is alert, oriented x 3, equal unlabored respirations, skin aa5 warm/dry/pink. Patient states feeling better. Pt drank cup of water and tolerated well. . 18:00 Reassessment: Pt's small knife left in ER Room 4, sent to security with name tag on it. jl7 Vital Signs: 11:42 BP 142 / 97; Pulse 94; Resp 18; Temp 97.2(TE); Pulse Ox 90% on R/A; Weight 54.43 kg; ph 12:08 BP 103 / 82; Pulse 88; Resp 18; Pulse Ox 98% on R/A; ph 12:46 BP 103 / 79; Pulse 91; Resp 18; Pulse Ox 97% on R/A; ph 14:00 BP 100 / 72; Pulse 85; Resp 18; Pulse Ox 98% on R/A; ph 15:00 BP 98 / 70; Pulse 81; Resp 18; Pulse Ox 98% on R/A; ph 16:00 BP 104 / 78; Pulse 82; Resp 18; Temp 98.1; Pulse Ox 99% on R/A; ph 17:00 BP 108 / 72; Pulse 77; Resp 18; Pulse Ox 99% on R/A; ph Nancy Coma Score: 11:46 Eye Response: to voice(3). Motor Response: obeys commands(6). Verbal Response: ph confused(4). Total: 13. ED Course: 11:39 Patient arrived in ED. jl7 11:42 Christine Robles, RN is Primary Nurse. ph 11:43 Sam Ramirez MD is Attending Physician. to 11:45 Triage completed. ph 11:45 Arm band placed on Patient placed in an exam room, on a stretcher, on pulse oximetry. ph 11:46 Patient has correct armband on for positive identification. Bed in low position. Call ph light in reach. Side rails up X2. Seizure precautions initiated. Pulse ox on. NIBP on. 12:08 Salicylate Sent. ph 12:08 Ptt, Activated Sent. ph 12:08 PT-INR Sent. ph 12:08 Hepatic Function Sent. ph 12:08 ETOH Level Sent. ph 12:08 CBC with Diff Sent. ph 12:08 Basic Metabolic Panel Sent. ph 12:08 Acetaminophen Sent. ph 12:08 Initial lab(s) drawn, by mi, sent to lab. EKG done, by ED staff, reviewed by Sam Ramirez MD. Maintain EMS IV. Dressing intact. Good blood return noted. Site clean \T\ dry. Gauge \T\ site: 20 LAC. Flushed with 10 mL NS. 12:22 Chest Single View XRAY In Process Unspecified. EDMS 15:03 No provider procedures requiring assistance completed. ph 17:00 Timothy Lord MD is Referral Physician. to 17:41 IV discontinued, intact, bleeding controlled, No redness/swelling at site. Pressure ph dressing applied. Administered Medications: 11:46 Drug: NS 0.9% IV 1000 ml IV at 1 bolus Per protocol; to be given as a bolus over 60 ph minutes Route: IV; Rate: 1 bolus; Site: left antecubital; 13:00 Follow up: Response: No adverse reaction; IV Status: Completed infusion; IV Intake: ph 1000ml 17:11 Drug: Keppra IV 1000 mg IV at per protocol once Route: IV; Rate: per protocol; Site: [facility] left antecubital; 17:35 Follow up: Response: No adverse reaction; IV Status: Completed infusion ph Medication: 12:09 VIS not applicable for this client. ph Intake: 13:00 IV: 1000ml; Total: 1000ml. ph Outcome: 17:00 Discharge ordered by . to 17:34 Discharged to home ambulatory, ph 17:34 Condition: good 17:34 Discharge instructions given to patient, Instructed on discharge instructions, follow up and referral plans. medication usage, Demonstrated understanding of instructions, follow-up care, medications, Prescriptions given X 1, 17:41 Patient left the ED. ph Signatures: Dispatcher [employer] EDMS Sam Ramirez MD MD cha Calderon, Audri RN RN aa5 Christine Robles RN Duarte Miranda ph RN RN jl7 Corrections: (The following items were deleted from the chart) 17:35 13:00 Response: No adverse reaction; IV Intake: 1000ml ph ph 17:35 17:35 Response: No adverse reaction; IV Status: Completed infusion; IV Intake: 1000ml [facility] :41 16:00 BP 108 / 72; Pulse 77bpm; Resp 18bpm; Pulse Ox 99% RA; ph ph
[2025-04-15 18:03] VITALS: TEMP 98.1; O2SAT 99
[2025-04-15 18:04] VITALS: BP 108/72
--- NOTE | 2025-04-19 16:55 | EKG ---
Test Date: 2025-04-15 Test Time: 12:06:33 Wire Bender Hand: PH MEASUREMENT RESULTS: Intervals: Rate: 93 NE: 156 QRSD: 82 QT: 370 QTc: 460 Mckenna: P: 79 NE: 156 QRS: 79 T: 58 INTERPRETIVE STATEMENTS: Normal sinus rhythm Normal ECG Compared to ECG 02/06/2025 19:39:35 Sinus tachycardia no longer present Electronically Signed On 04-19-25 16:49:52 CDT by Gunnar Petty
== END 2025-04-15 17:41 | disposition home or self-care (01) ==
LOC: ER 11:22
DX: G40.509 Epileptic seizures related to external causes, not intractable, without status epilepticus (principal); F10.129 Alcohol abuse with intoxication, unspecified; Z98.82 Breast implant status
CPT/HCPCS: 96365; 96361; 93005; 85025; 80048; 36415; 85610; 80076; 85730; 71045; 99284; 80143; 80179; 82077; J1953; J7030

== ENCOUNTER 2025-07-12 12:04 | Emergency (ER) | payer OTHER ==
[2025-07-12] MEDS ORDERED: NA CHLORIDE 0.9% 1,000 ML ONE (12:58)
[2025-07-12 13:02] LABS: Absolute Lymphocytes (CBC) 2.2 K/uL (0.7-4.9); Hematocrit 40.0 % (36.0-45.0); Hemoglobin 13.9 g/dL (12.0-15.0); MCH 32.8 pg (27.0-35.0); MCHC 34.7 g/dL (32.0-36.0); MCV 94.5 fL (80-100); MPV 7.4 fL (7.6-11.3); Nucleated RBC Absolute Count 0.0 (0-0); Nucleated Red Blood Cells % 0.1 % (0-0); RBC Red Blood Cell Count 4.23 M/uL (3.86-4.86); White Blood Count 7.50 thou/uL (4.3-10.9)
[2025-07-12 13:12] LABS: PT Prothrombin Time 10.9 SECONDS (10-13.0); PTT, Activated Partial Thromb 24.8 SECONDS (27.2-37.4); Protime INR 0.96
[2025-07-12 13:25] LABS: ALT/SGPT 85 U/L (13-56); AST/SGOT 91 U/L (15-37); Albumin 3.2 g/dL (3.4-5.0); Albumin/Globulin Ratio 0.9 (1.1-1.8); Alkaline Phosphatase 115 U/L (45-117); Anion Gap 8.0 mEq/L (5.0-15.0); BUN Blood Urea Nitrogen 11 mg/dL (7-18); Globulin 3.5 g/dL (2.3-3.5); Glucose Level 107 mg/dL (74-106); Potassium 4.0 mEq/L (3.5-5.1)
[2025-07-12 13:26] LABS: Bilirubin Indirect, Calculated 0.0 mg/dL (0.2-0.8)
[2025-07-12 13:37] LABS: METHAMPHETAM NEGATIVE (NEGATIVE); THC Cannibis NEGATIVE (NEGATIVE)
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
--- NOTE | 2025-07-12 14:45 | EDPHYS ---
Physician Documentation [facility] Name: Gabrielle Plata Age: 44 yrs Sex: Female : 1980 Arrival Date: 07/12/2025 Time: 12:04 Bed 16 Private MD: ED Physician Sam Ramirez HPI: 07/12 14:36 This 44 yrs old Female presents to ER via EMS with complaints of Altered to Mental Status, Probable Seizure. 14:36 The patient presents with confusion, decreased responsiveness, seizure activity. Onset: to The symptoms/episode began/occurred just prior to arrival, yesterday. Possible causes: alcohol, low blood sugar, seizure, the patient has a known seizure history, pseudo seizures. Associated signs and symptoms: Pertinent positives: confusion, dizziness. Current symptoms: In the emergency department the patient's symptoms are unchanged from the initial presentation, despite EMS interventions. Patient's baseline: Neuro: alert and fully oriented. The patient has experienced similar episodes in the past, several times. Historical: - Allergies: 12:36 cefepime; iw 12:36 Codeine; iw 12:36 Demerol; iw 12:36 Flagyl; iw 12:36 Sulfa (Sulfonamide Antibiotics); iw 12:36 Tramadol HCl; iw 12:36 Ultram; iw - PMHx: 12:36 Anxiety; Crohn's Disease; Gretta Plummer tears; MRSA; PTSD (MRSA); Seizure; iw - PSHx: 12:36 Cholecystectomy; breast augmentation; bladder surgery; abdominal surgery due to foreign iw object; tubal ligation; urethra surgery; - Family history:: not pertinent. ROS: 14:36 Constitutional: Negative for fever, chills, and weight loss, Eyes: Negative for injury, to pain, redness, and discharge, ENT: Negative for injury, pain, and discharge, Neck: Negative for injury, pain, and swelling, Respiratory: Negative for shortness of breath, cough, wheezing, and pleuritic chest pain, Abdomen/GI: Negative for abdominal pain, nausea, vomiting, diarrhea, and constipation, Back: Negative for injury and pain, : Negative for injury, bleeding, discharge, and swelling, MS/Extremity: Negative for injury and deformity, Skin: Negative for injury, rash, and discoloration, Neuro: Negative for headache, weakness, numbness, tingling, and seizure, 14:36 Cardiovascular: Positive for palpitations, Exam: 14:36 Constitutional: This is a well developed, well nourished patient who is awake, alert, to and in no acute distress. Head/Face: Normocephalic, atraumatic. Eyes: Pupils equal round and reactive to light, extra-ocular motions intact. Lids and lashes normal. Conjunctiva and sclera are non-icteric and not injected. Cornea within normal limits. Periorbital areas with no swelling, redness, or edema. ENT: Nares patent. No nasal discharge, no septal abnormalities noted. Tympanic membranes are normal and external auditory canals are clear. Oropharynx with no redness, swelling, or masses, exudates, or evidence of obstruction, uvula midline. Mucous membranes moist. Neck: Trachea midline, no thyromegaly or masses palpated, and no cervical lymphadenopathy. Supple, full range of motion without nuchal rigidity, or vertebral point tenderness. No Meningismus. Chest/axilla: Normal chest wall appearance and motion. Nontender with no deformity. No lesions are appreciated. Respiratory: Lungs have equal breath sounds bilaterally, clear to auscultation and percussion. No rales, rhonchi or wheezes noted. No increased work of breathing, no retractions or nasal flaring. Abdomen/GI: Soft, non-tender, with normal bowel sounds. No distension or tympany. No guarding or rebound. No evidence of tenderness throughout. Back: No spinal tenderness. No costovertebral tenderness. Full range of motion. Skin: Warm, dry with normal turgor. Normal color with no rashes, no lesions, and no evidence of cellulitis. MS/ Extremity: Pulses equal, no cyanosis. Neurovascular intact. Full, normal range of motion., bilateral aka Psych: Awake, alert, with orientation to person, place and time. Behavior, mood, and affect are within normal limits. 14:36 Cardiovascular: Rate: tachycardic, actual rate is 115 bpm, Rhythm: regular, Pulses: Pulses are 4+ in bilateral radial, brachial, femoral, popliteal, posterior tibial and and dorsalis pedis arteries.. Heart sounds: normal, Edema: is not appreciated, JVD: is not appreciated, 14:36 ECG was reviewed by the Attending Physician. 14:36 Musculoskeletal/extremity: DVT Exam: No signs of deep vein thrombosis. no pain, no swelling, no tenderness, negative Homans' sign noted on exam, no appreciated bluish discoloration, no erythema, no increased warmth, Vital Signs: 12:35 BP 151 / 108; Pulse 116; Resp 20; Temp 98.1; Pulse Ox 96% on R/A; iw 13:22 Pulse 102; Resp 18; Pulse Ox 96% on R/A; iw 13:26 BP 147 / 90; Pulse 97; Resp 18; Pulse Ox 96% on R/A; iw 14:30 BP 133 / 100; Pulse 99; Resp 17; Pulse Ox 99% on R/A; Pain 0/10; rg5 14:30 Pain Scale: Adult rg5 MDM: 12:13 Medical Screening Exam initiated to 14:41 Differential Diagnosis: CVA, electrolyte abnormality, alcohol intoxication, to hypoglycemia, intracranial bleed, meningitis, overdose, pneumonia, seizure, sepsis, TIA, UTI, volume depletion. Data reviewed: vital signs, nurses notes, EMS record, lab test result(s), EKG, radiologic studies, plain films. Consideration of Admission/Observation Escalation of care including admission/observation considered. I considered the following discharge prescriptions or medication management in the emergency department Medications were administered in the Emergency Department. See MAR. Independent interpretation of the following test(s) in the Emergency Department EKG: See my EKG interpretation above. Test considered but Not performed: CT: no ct brain. Historians other than the Patient: EMS: ems , dps. Care significantly affected by the following chronic conditions: seizure, anxiety, mrsa, , ptsd,chrons, gretta plummer. 07/12 12:13 Order name: Acetaminophen; Complete Time: 14:32 [facility] 07/12 12:13 Order name: Basic Metabolic Panel; Complete Time: 14:32 [facility] 07/12 12:13 Order name: CBC with Diff; Complete Time: 14:32 [facility] 07/12 12:13 Order name: ETOH Level; Complete Time: 14:32 [facility] 07/12 12:13 Order name: Hepatic Function; Complete Time: 14:32 [facility] 07/12 12:13 Order name: PT-INR; Complete Time: 14:32 [facility] 07/12 12:13 Order name: Test, Urine; Complete Time: 14:32 [facility] 07/12 12:13 Order name: Ptt, Activated; Complete Time: 14:32 [facility] 07/12 12:13 Order name: Salicylate; Complete Time: 14:32 [facility] 07/12 12:13 Order name: Urine Drug Screen; Complete Time: 14:32 [facility] 07/12 12:13 Order name: EKG; Complete Time: 12:14 [facility] 07/12 12:13 Order name: EKG - Nurse/Tech; Complete Time: 12:57 [facility] 07/12 12:13 Order name: IV Saline Lock; Complete Time: 12:57 [facility] 07/12 12:13 Order name: Labs collected and sent; Complete Time: 12:57 [facility] 07/12 13:09 Order name: Seizure Precautions; Complete Time: 13:09 iw EC:36 Rate is 115 beats/min. Rhythm is regular. QRS [place] is Normal. FL interval is normal. to QRS interval is normal. QT interval is normal. No Q waves. T waves are Normal. No ST changes noted. Clinical impression: Sinus tachycardia and No evidence of ischemia. Interpreted by me. Reviewed by me. Administered Medications: 13:09 Drug: NS 0.9% IV 1000 ml IV at 1000 ml once; to be given as a bolus over 60 minutes rg5 Route: IV; Rate: 1000 ml; Site: left hand; 14:58 Follow up: IV Status: Completed infusion; IV Intake: 1000ml rg5 14:50 Drug: Ondansetron IVP 8 mg IVP once; over 2 minutes Route: IVP; Site: left hand; rg5 14:58 Follow up: Response: No adverse reaction rg5 Disposition Summary: 07/12/25 14:44 Discharge Ordered Notes: Location: Home to Problem: new to Symptoms: have improved to Condition: Stable to Diagnosis - Alcohol use, unspecified with intoxication to - Altered mental status, unspecified to - Other seizures - pseudo to Followup: to - With: Private Physician - When: 2 - 3 days - Reason: Recheck today's complaints, Continuance of care, Re-evaluation by your physician Followup: to - With: Timothy Lord MD - When: 2 - 3 days - Reason: Recheck today's complaints, Re-evaluation by your physician Followup: to - With: Robert Castellon MD - When: 2 - 3 days - Reason: Recheck today's complaints, Re-evaluation by your physician Discharge Instructions: - Discharge Summary Sheet to - Alcohol Intoxication to - Alcohol Use Disorder to - Confusion to - Seizure, Adult to - Alcohol Intoxication, [id number] to - Alcohol Abuse and Nutrition to - Epilepsy, [id number] to Forms: - Medication Reconciliation Form to - Antibiotic Education to - Prescription Opioid Use to - Patient Portal Instructions to - Leadership Thank You Letter to Signatures: Dispatcher [employer] Sam Bridges MD MD cha Williams, Irene, RN RN Eliel Gilliam RN RN rg5 Corrections: (The following items were deleted from the chart) 12:58 12:13 Suicide Screening ([place]) ordered. to meza
[2025-07-12] MEDS ORDERED: ONDANSETRON 4 MG/2 ML VIAL ONE (14:50)
[2025-07-12 16:16] VITALS: TEMP 98.1
[2025-07-12 16:19] VITALS: BP 133/100; O2SAT 99
== END 2025-07-12 15:16 | disposition home or self-care (01) ==
LOC: ER 12:04
DX: F10.929 Alcohol use, unspecified with intoxication, unspecified (principal); R56.9 Unspecified convulsions; Z98.82 Breast implant status
CPT/HCPCS: 96361; 93005; 85025; 80048; 36415; 81025; 85610; 80076; 85730; 80307; 96374; 99285; 80143; 80179; 82077; J2405; J7030

== ENCOUNTER 2025-09-05 22:10 | Emergency (ER) | payer OTHER ==
[2025-09-05] MEDS ORDERED: LORazepam 2 MG/ML VIAL ONE (22:14)
[2025-09-05] MEDS ORDERED: ZIPRASIDONE MESYLA 20 MG/VIAL IM ONE (22:14)
[2025-09-05] MEDS ORDERED: WATER FOR INJ,STERILE 10 ML ONE (22:14)
[2025-09-05] MEDS ORDERED: PROMETHAZINE 25 MG TABLET ONE (22:43)
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
[2025-09-06 00:01] VITALS: BP 151/98; TEMP 98.4; O2SAT 98
== END 2025-09-05 23:12 | disposition home or self-care (01) ==
LOC: ER 22:10
DX: F10.129 Alcohol abuse with intoxication, unspecified (principal); R45.1 Restlessness and agitation; Z72.0 Tobacco use; Z98.82 Breast implant status
CPT/HCPCS: 99285; Q0169; J3486